=== PATIENT | male | born 1975 | race Caucasian/White ===

== ENCOUNTER 2018-05-07 09:52 | Outpatient (CLI) | payer BC, SELFPAY ==
[2018-05-07 13:12] LABS: Abs Immature Grans 0.01 k/cumm (0.0-0.09); Absolute Basophil Count 0.01 k/cumm (0.0-0.2); Absolute Eosinophil Count 0.08 k/cumm (0.0-0.7); Absolute Lymphocyte Count 1.91 k/cumm (1.2-3.4); Absolute Neutrophil Count 2.44 k/cumm (1.2-6.7); Basophils % 0.2; Eosinophils % 1.6; HGB 14.7 g/dL (13.5-17.5); Immature Grans % 0.2; Lymphocytes % 39.4; Mean Corp. HGB Concentration 35.9 g/dL (32.0-36.0); Mean Corpuscular Volume 89.1 fL (80-95); Mean Platelet Volume 9.6 fL (8.0-11.0); Monocytes % 8.2; Neutrophils % 50.4; Platelet Count 273 x1000/uL (130-400); RBC Distribution Width 13.8 % (11.8-14.1); White Blood Cell Count 4.85 k/cumm (4.4-10.8)
[2018-05-07 13:27] LABS: Anion Gap 7.4 mmol/L (3-11); BUN 19 mg/dL (7-18); CO2 30.6 mmol/L (21.0-32.0); CREATININE 0.85 mg/dL (0.70-1.30); Calcium 9.3 mg/dL (8.5-10.1); Chloride 105 mmol/L (98-107); Glucose 112 mg/dL (70-100); Potassium 4.2 mmol/L (3.5-5.1); Sodium 143 mmol/L (136-145)
[2018-05-07 13:39] LABS: ALT 33 U/L (12-78); AST 21 U/L (15-37); Albumin 3.6 g/dL (3.4-5.0); Alkaline Phosphatase 69 U/L (46-116); Bilirubin, Total 1.2 mg/dL (0.2-1.0); Total Protein 7.1 g/dL (6.4-8.2)
[2018-05-07 13:50] LABS: Bilirubin, Direct 0.24 mg/dL (0.00-0.20)
[2018-05-07 13:54] LABS: C-Reactive Protein < 0.05 mg/dL (0.0-0.3)
[2018-05-07 13:55] LABS: Bilirubin Negative (Negative); Blood Trace-intact (Negative); Clarity Clear; Glucose Negative (Negative); Ketones Negative (Negative); Leukocyte Esterase Negative (Negative); Nitrite Negative (Negative); Urobilinogen 0.2 EU/dL (Up TO 0.2)
[2018-05-07 14:20] LABS: Bacteria Few HPF (Negative); Crystals Negative HPF (Negative); Epithelial Cells Negative HPF (Negative); WBC 0-2 HPF (0-5)
[2018-05-07 14:21] LABS: C & S Indicated? No; Casts Negative LPF (Negative); Mucus Trace (Negative)
== END 2018-05-07 10:12 ==
PROVIDERS: Internal Medicine Gastroenterology; PCP Emergency Medicine; Visit Provider Emergency Medicine
DX: R10.9 Unspecified abdominal pain (principal); R31.9 Hematuria, unspecified; N20.0 Calculus of kidney; I10 Essential (primary) hypertension; K50.018 Crohn's disease of small intestine with other complication
CPT/HCPCS: 36415; 80048; 80076; 81003; 81015; 85025; 86140

== ENCOUNTER 2019-01-25 00:20 | Outpatient (CLI) | payer BC, SELFPAY ==
--- NOTE | 2019-01-25 08:30 | ETT_ITS ---
APPROVED REPORT Exam: Exercise Treadmill Patient Location: Out-Patient Room/Bed: Stress Nurse: Pam Ybarra RN BMI: 31.19 Baseline Rhythm: NSR Indications: Chest Pain to left chest, intermittant over the last several weeks. Medical History Medical History: No history of CAD Allergies: No known drug allergies Exercise History: Physically active Lung Sounds: Clear to auscultation Heart Sounds: Regular Stress Test Details Test: Exercise stress testing was performed using a Maxi protocol. Rest Stress HR Resting HR: 85 bpm Max Heart Rate (APMHR): 177 bpm Resting HR Supine: 85 bpm Target HR (85% APMHR): 150 bpm Resting HR Standin bpm Max HR Achieved: 171 bpm % of APMHR: 96 Recovery HR: 105 bpm HR response to stress: Normal HR response to stress BP Resting BP: 150/96 mmHg Resting BP Supine: 150/96 mmHg Resting BP Standin/96 mmHg Max BP: 218/64 mmHg Recovery BP: 150/92 mmHg BP response to stress: Abnormal hypertensive response to stress. ECG Resting ECG: Sinus Rhythm ST Change: none Stress ECG: Sinus Tachycardia ST Change: none Arrhythmia: None Recovery ECG: Clear, sinus tachycardia Recovery ST Change: none Recovery Arrhythmia: None Clinical Time of Stop for Maxi: 12:53 Reason for Termination: Fatigue, Target HR Achieved Exercise duration: 12 min53 sec Highest Stage Achieved: Stage 5: 5.0 mph at 18% grade. Exercise capacity: 14.06 METs Functional Capacity: Above average capacity Stress ECG Conclusion 1. The patient exercised for a total of 12 minutes and 53 seconds (14 METS). This represents a maxim al stress test 2. The patient had a hypertensive response to exercise. 3. There was no evidence of ischemia on exercise ECG. 4. The West Score (12) estimates an annual cardiovascular mortality of 0% and a five year survival of 96%. Using the West Score there is a low probability of any angiographic coronary disease. 5. Conclusion: No evidence of ischemia but hypertensive response to exercise. Would recommend more a ggressive blood pressure management. Protocol Used: Mxai Protocol Stress Test Summary STAGE Time (mins) Speed (mph) Grade (%) HR BP SYMPTOMS METS Supine 85 150/96 Standing 87 152/96 1 3 1.7 10 119 156/98 4.6 2 6 2.5 12 128 158/96 7 3 9 3.4 14 138 172/100 10.2 4 12 4.2 16 160 184/100 12.9 5 15 5.0 18 17.2 1 min recovery 130 218/64 3 min recovery 111 210/78 6 min recovery 105 150/92
== END 2019-01-25 00:40 ==
PROVIDERS: PCP Emergency Medicine; Visit Provider Emergency Medicine
DX: R07.9 Chest pain, unspecified (principal); I10 Essential (primary) hypertension
CPT/HCPCS: 93017

== ENCOUNTER 2019-04-16 09:23 | Outpatient (CLI) | payer BC, SELFPAY ==
[2019-04-16 10:28] LABS: Abs Immature Grans 0.01 k/cumm (0.0-0.09); Absolute Basophil Count 0.02 k/cumm (0.0-0.2); Absolute Eosinophil Count 0.11 k/cumm (0.0-0.7); Absolute Monocyte Count 0.41 k/cumm (0.11-0.7); Absolute Neutrophil Count 1.97 k/cumm (1.2-6.7); Basophils % 0.4; Eosinophils % 2.4; HCT 44.5 % (40.0-50.0); HGB 15.9 g/dL (13.5-17.5); Immature Grans % 0.2 %; Lymphocytes % 45.5; Mean Corp. HGB Concentration 35.7 g/dL (32.0-36.0); Mean Corpuscular Hemoglobin 30.8 pg (27.0-33.0); Mean Corpuscular Volume 86.1 fL (80-95); Mean Platelet Volume 9.6 fL (8.0-11.0); Monocytes % 8.9; Neutrophils % 42.6; Platelet Count 290 x1000/uL (130-400); RBC 5.17 m/cumm (4.50-6.00); RBC Distribution Width 13.6 % (11.8-14.1); White Blood Cell Count 4.62 k/cumm (4.4-10.8)
[2019-04-16 10:53] LABS: ALT 101 U/L (16-63); AST 44 U/L (15-37); Alkaline Phosphatase 61 U/L (46-116); Bilirubin, Direct 0.23 mg/dL (0.00-0.20); Total Protein 7.1 g/dL (6.4-8.2)
[2019-04-16 11:09] LABS: C-Reactive Protein < 0.05 mg/dL (0.0-0.3)
[2019-04-18 10:42] LABS: Hepatitis C Ab w Rflx HCV PCR Negative (Negative)
[2019-04-19 12:28] LABS: Smooth Muscle Ab Screen Negative (Negative)
== END 2019-04-16 09:43 ==
PROVIDERS: PCP Emergency Medicine; Visit Provider Internal Medicine Gastroenterology
DX: K50.913 Crohn's disease, unspecified, with fistula (principal)
CPT/HCPCS: 36415; 80076; 86803; 85025; 86140; 86255

== ENCOUNTER 2020-05-08 02:34 | Outpatient (CLI) | payer BC, SELFPAY ==
[2020-05-08 14:51] LABS: Abs Immature Grans 0.01 10^3/uL (0.0-0.06); Absolute Basophil Count 0.03 10^3/uL (0.0-0.2); Absolute Eosinophil Count 0.13 10^3/uL (0.0-0.7); Absolute Lymphocyte Count 2.73 10^3/uL (1.2-3.4); Absolute Monocyte Count 0.51 10^3/uL (0.1-0.8); Absolute Neutrophil Count 3.18 10^3/uL (1.2-6.7); Basophils % 0.5; HCT 43.3 % (40.0-50.0); HGB 14.9 g/dL (13.5-17.5); Immature Grans % 0.2; Lymphocytes % 41.4; MCH 29.2 pg (27.0-33.0); MCHC 34.4 % (32.0-36.0); MCV 84.7 fL (80-95); MPV 9.1 fL (8.0-11.0); Monocytes % 7.7; Neutrophils % 48.2; Nucleated RBC 0 %; Platelet Count 261 10^3/uL (130-400); RBC 5.11 10^6/uL (4.36-5.78); RDW 11.9 % (11.8-14.1); WBC 6.59 10^3/uL (4.4-10.8)
[2020-05-08 15:35] LABS: ALT 55 U/L (16-63); AST 23 U/L (15-37); Albumin 3.8 g/dL (3.4-5.0); Alkaline Phosphatase 72 U/L (46-116); Bilirubin, Direct 0.15 mg/dL (0.00-0.20); Bilirubin, Total 0.8 mg/dL (0.2-1.0); C-Reactive Protein 0.06 mg/dL (0.0-0.3); Total Protein 7.5 g/dL (6.4-8.2)
== END 2020-05-08 02:35 | disposition home or self-care (01) ==
LOC: LBO 02:34
PROVIDERS: PCP Emergency Medicine; Visit Provider Internal Medicine Gastroenterology
DX: K50.018 Crohn's disease of small intestine with other complication (principal); R94.5 Abnormal results of liver function studies
CPT/HCPCS: 36415; 80076; 85025; 86140

== ENCOUNTER 2020-09-20 02:51 | Outpatient (CLI) | payer BC, SELFPAY ==
[2020-09-20 15:23] LABS: Abs Immature Grans 0.02 10^3/uL (0.0-0.06); Absolute Basophil Count 0.02 10^3/uL (0.0-0.2); Absolute Eosinophil Count 0.17 10^3/uL (0.0-0.7); Absolute Lymphocyte Count 2.71 10^3/uL (1.2-3.4); Absolute Monocyte Count 0.45 10^3/uL (0.1-0.8); Absolute Neutrophil Count 3.29 10^3/uL (1.2-6.7); Basophils % 0.3; Eosinophils % 2.6; HCT 42.8 % (40.0-50.0); Immature Grans % 0.3; Lymphocytes % 40.7; MCH 29.3 pg (27.0-33.0); MCV 83.6 fL (80-95); MPV 9.7 fL (8.0-11.0); Monocytes % 6.8; Neutrophils % 49.3; Nucleated RBC 0 %; Platelet Count 251 10^3/uL (130-400); RBC 5.12 10^6/uL (4.36-5.78); RDW 11.8 % (11.8-14.1); RDW-SD 35.8 fL; WBC 6.66 10^3/uL (4.4-10.8)
[2020-09-20 16:05] LABS: ALT 56 U/L (16-63); AST 24 U/L (15-37); Albumin 3.7 g/dL (3.4-5.0); Alkaline Phosphatase 56 U/L (46-116); Bilirubin, Direct 0.2 mg/dL (0.0-0.2); Bilirubin, Total 1.1 mg/dL (0.2-1.0); Total Protein 6.9 g/dL (6.4-8.2)
[2020-09-20 16:14] LABS: C-Reactive Protein < 0.05 mg/dL (0.0-0.3)
== END 2020-09-20 02:52 | disposition home or self-care (01) ==
LOC: LBO 02:51
PROVIDERS: PCP Emergency Medicine; Visit Provider Internal Medicine Gastroenterology
DX: K50.018 Crohn's disease of small intestine with other complication (principal); R94.5 Abnormal results of liver function studies
CPT/HCPCS: 36415; 80076; 85025; 86140

== ENCOUNTER 2020-11-08 16:11 | Outpatient (REF) | payer BC, SELFPAY ==
[2020-11-08 19:58] LABS: Calculated LDL 107 mg/dL (<100); Cholesterol 195 mg/dL (<200); HDL Cholesterol 47 mg/dL (40-60); Triglyceride 205 mg/dL (<150)
== END 2020-11-08 16:12 | disposition home or self-care (01) ==
LOC: LBN 16:11
PROVIDERS: PCP Emergency Medicine; Visit Provider Emergency Medicine
DX: I10 Essential (primary) hypertension (principal)
CPT/HCPCS: 80061

== ENCOUNTER 2021-02-05 10:57 | Outpatient (REF) | payer BC, SELFPAY ==
--- NOTE | 2021-02-05 10:45 | SKI_PTH ---
PATIENT: Igor Woodruff LOC: [facility] U#:[id number] AGE/SX: 45/M ROOM: RE02/05/[address]: Irwin Gonsalez DO : 1975 BED: DIS: 02/05/2021 SPEC #: [id number] RECD: 02/05/21 18:00 STATUS: FAREED REQ #: [id number] SUSIE: 02/05/21 10:[address]: David Deleon DEPT: Surgical Specimen RECD BY: Tonya Caldera ENTERED: 02/05/21 18:01 SP TYPE: SKI OTHR DR: Irwin Gonsalez DO Tissues: 1 - SKIN BIOPSY(SHAVE/PUNCH) Procedures: SKIN LEVEL 4 Comments: [id number]
== END 2021-02-05 10:58 | disposition home or self-care (01) ==
LOC: LBN 10:57
PROVIDERS: PCP Emergency Medicine; Referring Provider Family Medicine; Visit Provider Emergency Medicine
DX: D23.61 Other benign neoplasm of skin of right upper limb, including shoulder (principal)
CPT/HCPCS: 88305

== ENCOUNTER 2021-05-03 03:51 | Outpatient (CLI) | payer BC, SELFPAY ==
[2021-05-03 14:49] LABS: Abs Immature Grans 0.02 10^3/uL (0.0-0.06); Absolute Basophil Count 0.02 10^3/uL (0.0-0.2); Absolute Eosinophil Count 0.09 10^3/uL (0.0-0.7); Absolute Lymphocyte Count 2.06 10^3/uL (1.2-3.4); Absolute Monocyte Count 0.77 10^3/uL (0.1-0.8); Absolute Neutrophil Count 4.44 10^3/uL (1.2-6.7); Basophils % 0.3; Eosinophils % 1.2; HCT 42.9 % (40.0-50.0); HGB 14.6 g/dL (13.5-17.5); Immature Grans % 0.3; Lymphocytes % 27.8; MCH 29.1 pg (27.0-33.0); MCV 85.5 fL (80-95); MPV 9.2 fL (8.0-11.0); Monocytes % 10.4; Nucleated RBC 0 %; Platelet Count 241 10^3/uL (130-400); RBC 5.02 10^6/uL (4.36-5.78); RDW 12.4 % (11.8-14.1); RDW-SD 38.5 fL
[2021-05-03 16:51] LABS: ALT 66 U/L (16-63); AST 28 U/L (15-37); Albumin 3.9 g/dL (3.4-5.0); Alkaline Phosphatase 76 U/L (46-116); Bilirubin, Direct 0.2 mg/dL (0.0-0.2); Bilirubin, Total 0.8 mg/dL (0.2-1.0); C-Reactive Protein 0.65 mg/dL (0.0-0.3); Total Protein 7.5 g/dL (6.4-8.2)
[2021-05-06 19:29] LABS: Adalimumab QN with Reflex Ab 16.1 mcg/mL
== END 2021-05-03 03:52 | disposition home or self-care (01) ==
PROVIDERS: PCP Family Medicine; Visit Provider Internal Medicine Gastroenterology
DX: K50.018 Crohn's disease of small intestine with other complication (principal)
CPT/HCPCS: 36415; 80076; 83520; 85025; 86140

== ENCOUNTER 2021-09-22 13:20 | Emergency (ER) | payer BC, SELFPAY ==
--- NOTE | 2021-09-22 13:15 | DI.RAD_ITS ---
Exam(s) XR ELBOW RT COMPLETE EXAM: XR ELBOW RT COMPLETE CLINICAL HISTORY: Swelling, R/O Fx. TECHNIQUE: 2D digital imaging was performed of the left elbow. Four images were obtained. AP, late ral and oblique views were obtained. COMPARISON: No exams were available for comparison FINDINGS: BONES: No acute fracture is present. No bony destructive lesion is seen. JOINTS: The elbow is normally aligned. No joint effusion is seen. SOFT TISSUE: There is soft tissue swelling posterior to the olecranon. IMPRESSION: 1. No acute fracture or dislocation. 2. Marked soft tissue swelling posterior to the olecranon. DATA REPOSITORY: RADIATION DOSE DELIVERED:
[2021-09-22 13:23] VITALS: BP 143/110; PULSE 82; RESP 14; O2SAT 97
--- NOTE | 2021-09-22 14:02 | ED.GENADUL_ITS ---
Discharge Plan Disposition Patient Disposition: HOME Condition: Stable Discharge Details Clinical Impression: Olecranon bursitis of right elbow Primary Care Provider: Richard Tidwell ED Provider: Ya Helton Home Meds and New Rx's Prescriptions: Continued buspirone 5 mg tablet 5 mg PO BID PRN (Reason: anxiety) Qty: 30 0RF losartan 100 mg tablet 100 mg PO DAILY Qty: 90 3RF amlodipine 5 mg tablet 5 mg PO DAILY Qty: 90 3RF multivitamin [Daily Multi-Vitamin] 1 EACH tablet 1 tab PO DAILY acetaminophen [Tylenol Extra Strength] 500 MG tablet 2 tab PO Q4H PRN Humira Pen Kgpyre-OP-PK Start 40 mg/0.8 mL pen injector kit 40 mg subcut QWEEK Label Comments: 12/17/16 rx by [facility] Dr. Ramonita Armstrong. [facility] alfuzosin [Uroxatral] 10 mg tablet extended release 24 hr 10 mg PO DAILY Qty: 90 3RF sertraline 25 mg tablet 25 mg PO DAILY Qty: 90 0RF esomeprazole magnesium [Nexium] 40 mg capsule,delayed release(DR/EC) 40 mg PO DAILY Qty: 90 3RF Discharge Instructions Instructions: Elbow Bursitis (ED), R.I.C.E. Treatment (ED) Additional Instructions: Use juan wrap for next 3-5 days. Apply ice on and off for 5-7 days. Please take Tylenol or Ibuprofen with food every 4-6 hours as needed for pain and swelling. Please return to the ER or be seen sooner by Ortho for any redness, inability to move your arm, fever chills body aches or no improvement. Referrals: Dwain Justin MD [ [facility] STAFF PHYSICIAN] - 1 week Discharge Data Discharge Date/Time-TO BE ENTERED AT DEPARTURE: 09/22/21 14:14 Medical Decision Making 46-year-old male presents to the ER with right elbow swelling. Patient reports that he hit his elbow this morning began with acute swelling. He reports that this is happened to him a couple times in the past. No other associated symptoms no fever chills no body aches no erythema or significant warmth noted surrounding the joint. He does have full range of motion noted to the elbow without significant tenderness. Distal CMS is intact. He did not take any medications prior to arrival. Past medical history includes hypertension kidney stone, Crohn's disease, GERD, obstructive sleep apnea, hemorrhoids. Exam is consistent with olecranon bursitis placed Juan wrap and ice pack given ibuprofen here. No obvious evidence for septic joint. Differential diagnosis includes but not limited to gouty arthritis, less likely septic joint, olecranon bursitis Discussed wound care with patient follow-up with orthopedics who verbalized understanding. This text was generated using Moondoation system, please disregard any oddities of phrase or misspellings. Medical Records Medical records reviewed: Yes I reviewed the patient's medical records. Imaging Data Radiologic Study: Imaging: X-Ray Radiologist's impression: Imaging protocol: Radiologic exam of the Right elbow. Views: 3 or more views. COMPARISON: No relevant prior studies available. FINDINGS: Bones/joints: No acute fracture or dislocation. Joint spaces maintained. No joint effusion. Soft tissues: Marked swelling posterior to the olecranon. IMPRESSION: 1. No acute fracture. 2. Marked swelling posterior to the olecranon which may be posttraumatic or reflect bursitis. Thank you for allowing us to participate in the care of your patient. Dictated and Authenticated by: Juan Cao MD [facility] General Mode of arrival: ambulatory . Date/Time Provider Initiated Documentation: 09/22/21 13:20 . Limitations to Documentation: no limitations . Information obtained by: patient and RN notes reviewed . HPI Narrative: 46-year-old male presents to the ER with right elbow swelling. Patient reports that he hit his elbow this morning began with acute swelling. He reports that this is happened to him a couple times in the past. No other associated symptoms no fever chills no body aches no erythema or significant warmth noted surrounding the joint. He does have full range of motion noted to the elbow without significant tenderness. Distal CMS is intact. He did not take any medications prior to arrival. Past medical history includes hypertension kidney stone, Crohn's disease, GERD, obstructive sleep apnea, hemorrhoids. Related Data Home Medications Medication Instructions Recorded Confirmed acetaminophen 500 mg tablet 2 tab PO Q4H PRN 07/05/12 05/31/21 (Tylenol Extra Strength) multivitamin (Daily Multi-Vitamin 1 tab PO DAILY 07/05/12 09/22/21 tablet) adalimumab 40 mg/0.8 mL 40 mg subcut QWEEK 11/01/19 09/22/21 subcutaneous pen kit (Humira Pen Crohn's-[facility] Colitis-Hid Sup Starter) losartan 100 mg tablet 100 mg PO DAILY #90 tabs 02/05/21 09/22/21 buspirone 5 mg tablet 5 mg PO BID PRN anxiety #30 tabs 04/19/21 05/31/21 amlodipine 5 mg tablet 5 mg PO DAILY #90 tabs 05/10/21 09/22/21 alfuzosin 10 mg tablet,extended 10 mg PO DAILY #90 tab-caps 06/14/21 09/22/21 release 24 hr (Uroxatral) sertraline 25 mg tablet 25 mg PO DAILY #90 tabs 08/14/21 09/22/21 esomeprazole magnesium 40 mg 40 mg PO DAILY #90 caps 09/12/21 09/22/21 capsule,delayed release (Nexium) Previous Rx's Medication Instructions Recorded losartan 100 mg tablet 100 mg PO DAILY #90 tabs 02/05/21 buspirone 5 mg tablet 5 mg PO BID PRN anxiety #30 tabs 04/19/21 amlodipine 5 mg tablet 5 mg PO DAILY #90 tabs 05/10/21 alfuzosin 10 mg tablet,extended 10 mg PO DAILY #90 tab-caps 06/14/21 release 24 hr (Uroxatral) sertraline 25 mg tablet 25 mg PO DAILY #90 tabs 08/14/21 esomeprazole magnesium 40 mg 40 mg PO DAILY #90 caps 09/12/21 capsule,delayed release (Nexium) Allergies Allergy/AdvReac Type Severity Reaction Status Date / Time No Known Allergies Allergy Verified 09/22/21 13:25 General Stated Complaint: Orthopedic LEÓN: 4 Review of Systems All systems reviewed & are unremarkable except as noted in HPI and below Constitutional Constitutional: Denies body ache(s), Denies chills and Denies fever(s) Cardiovascular Cardiovascular: Denies palpitations Respiratory Respiratory: Reports hemoptysis and Reports excessive phlegm production Musculoskeletal Musculoskeletal: Reports joint swelling (Right elbow) Integumentary/Breasts Skin/Breast: Denies erythema Endocrine Endocrine: Denies palpitations PFSH All Active Problems (Updated 09/22/21 @ 14:09 by Ya Helton NP) Olecranon bursitis of right elbow (Acute) Anxiety (Chronic) Hypertension (Chronic) Kidney stone on right side (Chronic) 2017. stenting [facility] Crohn's disease (Chronic) Gastroesophageal reflux disease with esophagitis (Chronic) per EGD; esophageal stricture Hemorrhoids (Chronic) EXTERNAL Obstructive sleep apnea syndrome (Chronic) Surgical History (Updated 05/31/21 @ 13:01 by David Deleon MD) Appendectomy Arthroplasty of knee (~2000) LEFT Colonoscopy - MAC 05/01/11 [facility] 02/25/13 [facility] Social History (Updated 11/09/20 @ 15:06 by Kaye Braxton) Smoking/Tobacco Use Status: Never Second Hand Exposure: Yes Smoking risk assessment performed?: Yes Alcohol Intake: current Alcohol Intake frequency: a few times a month Alcohol type: beer Drug use: Never Substance use type: does not use Household members: spouse and children Housing: house Communication Needs: None Do you need help understanding health information?: Never Pets and animals: Yes Pets and animals: dog(s) Sexually active: Yes Do you think of yourself as: straight/heterosexual Current gender identity: male What is your relationship status?: How often do you talk on the phone with friends or family?: once per week How often do you get together with friends or relatives?: once per week How often do you attend lutheran or restorationist services?: decline to answer Do you belong to any clubs or organized social groups?: no Panel score (0-1 are the most socially isolated patients): 1 Sue/Hindu: Bahai Special sue needs: No Seatbelt use: always Helmet use: Yes Helmet use: sometimes Drive 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 Do you feel safe at home: Yes Do you feel safe in your relationship?: Yes Exam Extrem Right upper extremity: elbow/forearm Details: swelling Location: of the olecranon (Swelling); not of the antecubital fossa and not of the lateral epicondyle and normal ROM; no ecchymosis Course Vital Signs Vital signs: Vital Signs Pulse 82 09/22/21 13:23 Respiratory Rate 14 09/22/21 13:23 Blood Pressure 143/110 H 09/22/21 13:23 Pulse Oximetry 97 09/22/21 13:23 Pulse 82 09/22/21 13:23 Respiratory Rate 14 09/22/21 13:23 Respiratory Effort Non-Labored 09/22/21 13:27 Blood Pressure 143/110 H 09/22/21 13:23 Blood Pressure Position Supine 09/22/21 13:23 Pulse Oximetry 97 09/22/21 13:23 Oxygen Delivery Method Room Air 09/22/21 13:23 Oxygen Flow Rate 0 09/22/21 13:23 Pain Level 4 09/22/21 13:29 PAWSS Have you Been Recently Intoxicated or Drunk Within the Last 30 days?: No Have you Ever Experienced Previous Episodes of Alcohol Withdrawal?: No Have you ever Experienced Withdrawal Seizures?: No Have you ever Experienced Delirium Tremens(DT)s?: No Have you ever undergone Alcohol Rehabilitation Treatment (i.e, inpt ot outpatient treatment programs)?: No Have you ever Experienced Blackouts?: No Have you ever Combined Alcohol with other Downers within the last 90 days?: No Have you ever Combined Alcohol with any other Substance of Abuse during the last 90 days?: No Positive Blood Alcohol level on Presentation? [PCS.BAL]: No Evidence of Increased Autonomic Activity (i.e. HR>120, tremor, sweating, agitation, nausea)?: No Result: 0
--- NOTE | 2021-09-22 14:04 | DI.VRAD_ITS ---
PROCEDURE INFORMATION: Exam: XR Right Elbow Exam date and time: 09/22/2021 1:36 PM Age: 46 years old Clinical indication: Other: Swelling, R/O FX TECHNIQUE: Imaging protocol: Radiologic exam of the Right elbow. Views: 3 or more views. COMPARISON: No relevant prior studies available. FINDINGS: Bones/joints: No acute fracture or dislocation. Joint spaces maintained. No joint effusion. Soft tissues: Marked swelling posterior to the olecranon. IMPRESSION: 1. No acute fracture. 2. Marked swelling posterior to the olecranon which may be posttraumatic or reflect bursitis. Dictated and Authenticated by: Juan Cao MD. Ordering:REKHA Pandya MD
== END 2021-09-22 14:14 | disposition home or self-care (01) ==
PROVIDERS: Emergency Provider Registered Nurse Emergency; PCP Nurse Practitioner Family
DX: M70.21 Olecranon bursitis, right elbow (principal); I10 Essential (primary) hypertension; Z77.22 Contact with and (suspected) exposure to environmental tobacco smoke (acute) (chronic)
CPT/HCPCS: 99283; 73080

== ENCOUNTER 2021-11-04 15:00 | Outpatient (CLI) | payer BC, SELFPAY ==
--- NOTE | 2021-11-04 14:57 | DI.RAD_ITS ---
Exam(s) XR KNEE LT 3V AP,LAT,CHRISTINE EXAM: XR KNEE LT 3V AP,LAT,CHRISTINE CLINICAL HISTORY: knee pain. TECHNIQUE: 2D digital imaging was performed of the left knee. Three images were obtained. DeleteAP , lateral and PA tunnel views were obtained. COMPARISON: No previous for comparison. FINDINGS: BONES: No acute fracture is present. No bony destructive lesion is seen. There is a well corticated osseous density adjacent to the anterior tibial tuberosity which appears old. JOINTS: The knee is normally aligned. No joint effusion is seen. SOFT TISSUE: Normal. IMPRESSION: No acute abnormality. DATA REPOSITORY: RADIATION DOSE DELIVERED:
== END 2021-11-04 15:01 | disposition home or self-care (01) ==
LOC: DIORS 15:01
PROVIDERS: PCP Nurse Practitioner Family; Referring Provider Nurse Practitioner Family; Visit Provider Physician Assistant Surgical
DX: M25.562 Pain in left knee (principal)
CPT/HCPCS: 73562

== ENCOUNTER 2022-05-16 01:26 | Outpatient (CLI) | payer BC, SELFPAY ==
[2022-05-16 12:22] LABS: Abs Immature Grans 0.03 10^3/uL (0.0-0.06); Absolute Basophil Count 0.03 10^3/uL (0.0-0.2); Absolute Eosinophil Count 0.12 10^3/uL (0.0-0.7); Absolute Monocyte Count 0.64 10^3/uL (0.1-0.8); Absolute Neutrophil Count 1.79 10^3/uL (1.2-6.7); Basophils % 0.7; Eosinophils % 2.8; HCT 40.9 % (40.0-50.0); HGB 13.8 g/dL (13.5-17.5); Immature Grans % 0.7; Lymphocytes % 39.4; MCH 28.7 pg (27.0-33.0); MCHC 33.7 % (32.0-36.0); MCV 85 fL (80-95); Monocytes % 14.8; Neutrophils % 41.6; Platelet Count 233 10^3/uL (130-400); RBC 4.81 10^6/uL (4.36-5.78); RDW 12.4 % (11.8-14.1); RDW-SD 38.4 fL; WBC 4.31 10^3/uL (4.4-10.8)
[2022-05-16 12:26] LABS: CREATININE 0.9 mg/dL (0.70-1.30); Estimated GFR 106.01 (mL/min/1.73m2); Potassium 3.7 mmol/L (3.5-5.1)
[2022-05-16 12:46] LABS: ALT 100 U/L (16-63); AST 39 U/L (15-37); Albumin 3.4 g/dL (3.4-5.0); Alkaline Phosphatase 71 U/L (46-116); Bilirubin, Direct 0.2 mg/dL (0.0-0.2); Bilirubin, Total 0.6 mg/dL (0.2-1.0); C-Reactive Protein 0.27 mg/dL (0.0-0.3); Total Protein 7.1 g/dL (6.4-8.2)
[2022-05-16 12:49] LABS: Hemoglobin A1C 5.5 % (<5.7)
== END 2022-05-16 01:27 | disposition home or self-care (01) ==
LOC: LOS 01:26
PROVIDERS: Internal Medicine Gastroenterology; PCP Nurse Practitioner Family; Visit Provider Nurse Practitioner Family
DX: I10 Essential (primary) hypertension (principal); Z13.1 Encounter for screening for diabetes mellitus; F41.8 Other specified anxiety disorders; K21.00 Gastro-esophageal reflux disease with esophagitis, without bleeding; K50.90 Crohn's disease, unspecified, without complications
CPT/HCPCS: 36415; 80076; 82565; 83036; 84132; 85025; 86140

== ENCOUNTER 2022-12-22 05:01 | Outpatient (CLI) | payer BC, SELFPAY ==
[2022-12-22 07:25] LABS: Abs Immature Grans 0.01 10^3/uL (0.0-0.06); Absolute Basophil Count 0.03 10^3/uL (0.0-0.2); Absolute Eosinophil Count 0.16 10^3/uL (0.0-0.7); Absolute Lymphocyte Count 2.23 10^3/uL (1.2-3.4); Absolute Monocyte Count 0.47 10^3/uL (0.1-0.8); Absolute Neutrophil Count 2.74 10^3/uL (1.2-6.7); Basophils % 0.5; Eosinophils % 2.8; HCT 42.9 % (40.0-50.0); HGB 14.8 g/dL (13.5-17.5); Immature Grans % 0.2; Lymphocytes % 39.5; MCH 28.7 pg (27.0-33.0); MCHC 34.5 % (32.0-36.0); MCV 83 fL (80-95); MPV 9.5 fL (8.0-11.0); Monocytes % 8.3; Neutrophils % 48.7; Platelet Count 275 10^3/uL (130-400); RBC 5.16 10^6/uL (4.36-5.78); RDW 11.9 % (11.8-14.1); WBC 5.64 10^3/uL (4.4-10.8)
[2022-12-22 08:06] LABS: ALT 28 U/L (16-63); AST 15 U/L (15-37); Albumin 3.6 g/dL (3.4-5.0); Alkaline Phosphatase 68 U/L (46-116); Anion Gap 6.3 mmol/L (3-11); BUN 25 mg/dL (7-18); Bilirubin, Direct 0.2 mg/dL (0.0-0.2); Bilirubin, Total 0.7 mg/dL (0.2-1.0); CO2 27.7 mmol/L (21.0-32.0); CREATININE 0.8 mg/dL (0.70-1.30); Calcium 9.4 mg/dL (8.5-10.1); Chloride 106 mmol/L (98-107); Estimated GFR 109.85 (mL/min/1.73m2); Glucose 124 mg/dL (74-106); Potassium 3.8 mmol/L (3.5-5.1); Sodium 140 mmol/L (136-145); Total Protein 7.5 g/dL (6.4-8.2)
[2022-12-22 15:53] LABS: ESR (LRH) 12 mm/hr
== END 2022-12-22 05:02 | disposition home or self-care (01) ==
LOC: LBO 05:01
PROVIDERS: PCP Nurse Practitioner Family; Visit Provider Internal Medicine Gastroenterology
DX: K50.818 Crohn's disease of both small and large intestine with other complication (principal)
CPT/HCPCS: 36415; 80053; 80076; 85652; 85025; 86140

== ENCOUNTER 2023-06-19 02:30 | Outpatient (CLI) | payer BC, SELFPAY ==
[2023-06-19 11:02] LABS: Abs Immature Grans 0.02 10^3/uL (0.0-0.06); Absolute Basophil Count 0.03 10^3/uL (0.0-0.2); Absolute Eosinophil Count 0.08 10^3/uL (0.0-0.7); Absolute Lymphocyte Count 2.36 10^3/uL (1.2-3.4); Absolute Monocyte Count 0.42 10^3/uL (0.1-0.8); Absolute Neutrophil Count 3.38 10^3/uL (1.2-6.7); Basophils % 0.5; Eosinophils % 1.3; HCT 42.6 % (40.0-50.0); HGB 14.8 g/dL (13.5-17.5); Immature Grans % 0.3; Lymphocytes % 37.5; MCH 29.1 pg (27.0-33.0); MCHC 34.7 % (32.0-36.0); MCV 84 fL (80-95); MPV 9.2 fL (8.0-11.0); Monocytes % 6.7; Neutrophils % 53.7; Platelet Count 265 10^3/uL (130-400); RBC 5.08 10^6/uL (4.36-5.78); RDW 11.9 % (11.8-14.1); RDW-SD 35.9 fL; WBC 6.29 10^3/uL (4.4-10.8)
[2023-06-19 11:27] LABS: ALT 36 U/L (16-63); AST 16 U/L (15-37); Albumin 3.6 g/dL (3.4-5.0); Alkaline Phosphatase 75 U/L (46-116); Anion Gap 9.5 mmol/L (3-11); BUN 25 mg/dL (7-18); Bilirubin, Total 0.8 mg/dL (0.2-1.0); CO2 27.5 mmol/L (21.0-32.0); Calcium 8.8 mg/dL (8.5-10.1); Chloride 106 mmol/L (98-107); Estimated GFR 92.84 (mL/min/1.73m2); Glucose 128 mg/dL (74-106); Potassium 3.8 mmol/L (3.5-5.1); Sodium 143 mmol/L (136-145); Total Protein 7.4 g/dL (6.4-8.2)
[2023-06-19 11:28] LABS: C-Reactive Protein < 0.50 mg/dL (<or=0.5)
[2023-06-21 14:35] LABS: TB Interpretation Negative (Negative); TB2 Ag minus Nil 0.01 IU/mL
[2023-06-24 12:51] LABS: Adalimumab QN with Reflex Ab 12.2 mcg/mL
== END 2023-06-19 02:31 | disposition home or self-care (01) ==
PROVIDERS: PCP Nurse Practitioner Family; Visit Provider Internal Medicine Gastroenterology
DX: K50.018 Crohn's disease of small intestine with other complication (principal)
CPT/HCPCS: 36415; 80053; 83520; 85025; 86140; 86480

== ENCOUNTER 2024-01-12 03:14 | Outpatient (CLI) | payer BC, SELFPAY ==
[2024-01-12 09:20] LABS: Absolute Basophil Count 0.03 10^3/uL (0.0-0.2); Absolute Eosinophil Count 0.08 10^3/uL (0.0-0.7); Absolute Lymphocyte Count 1.42 10^3/uL (1.2-3.4); Absolute Monocyte Count 0.55 10^3/uL (0.1-0.8); Absolute Neutrophil Count 3.71 10^3/uL (1.2-6.7); Basophils % 0.5 %; Eosinophils % 1.4 %; HCT 43.4 % (40.0-50.0); Lymphocytes % 24.5 %; MCH 28.6 pg (27.0-33.0); MCHC 34.6 % (32.0-36.0); MCV 83 fL (80-95); MPV 9.7 fL (8.0-11.0); Monocytes % 9.5 %; Neutrophils % 64.1 %; Platelet Count 251 10^3/uL (130-400); RBC 5.25 10^6/uL (4.36-5.78); RDW 11.9 % (11.8-14.1); RDW-SD 35.9 fL; WBC 5.79 10^3/uL (4.4-10.8)
[2024-01-12 09:53] LABS: ALT 28 U/L (16-63); AST 21 U/L (15-37); Albumin 3.5 g/dL (3.4-5.0); Alkaline Phosphatase 81 U/L (46-116); Bilirubin, Direct 0.2 mg/dL (0.0-0.2); Bilirubin, Total 0.96 mg/dL (0.2-1.0); Total Protein 7.8 g/dL (6.4-8.2)
[2024-01-12 09:54] LABS: C-Reactive Protein < 0.50 mg/dL (<or=0.5)
[2024-01-12 10:06] LABS: Hemoglobin A1C 5.6 % (<5.7)
[2024-01-12 10:07] LABS: Calculated LDL 99 mg/dL (<100); Cholesterol 199 mg/dL (<200); HDL Cholesterol 50 mg/dL (40-60); Triglyceride 251 mg/dL (<150)
[2024-01-12 18:43] LABS: PSA, Screening 6.1 ng/mL (<=2.5)
== END 2024-01-12 03:15 | disposition home or self-care (01) ==
LOC: LBO 03:15
PROVIDERS: Internal Medicine Gastroenterology; PCP Nurse Practitioner Family; Visit Provider Nurse Practitioner Family
DX: Z13.220 Encounter for screening for lipoid disorders (principal); Z13.1 Encounter for screening for diabetes mellitus; Z12.5 Encounter for screening for malignant neoplasm of prostate; K50.018 Crohn's disease of small intestine with other complication
CPT/HCPCS: 36415; 80061; 80076; 84153; 83036; 85025; 86140

== ENCOUNTER 2024-03-10 01:42 | Outpatient (CLI) | payer BC, SELFPAY ==
--- OUTSIDE RECORDS SUMMARY | 2024-03-10 01:56 | XMS_ITS | Encounter Summary ---
[place] [address] Care Team Providers Care Welding Machine Tender Name Role Phone Irwin Gonsalez DO Primary Care Provider Encounter Details Date Type Department Care Team (Latest Contact Info) Description 03/03/2024 9:00 AM EST TH Visit (TeleHealth) [place] [address] Nereyda Salgado, DIESEL [employer] MECH[employer]IC [facility] [place] [address] Crohn's disease of ileum with other complication Social History Tobacco Use Types Packs/Day Years Used Date Smoking Tobacco: Never Smokeless Tobacco: Never Alcohol Use Standard Drinks/Week Comments Yes 1 (1 standard drink = 0.6 oz pur e alcohol) Sex and Gender Information Value Date Recorded Sex Assigned at Male 06/08/2023 4:49 PM EDT Gender Identity Not on file Sexual Orientation Not on file documented as of this encounter Progress Notes * Nereyda Salgado APRN - 03/03/2024 9:00 AM EST [facility] Gastroenterology Telehealth Visit Primary care provider: Irwin Gonsalez DO Other providers: Dr. Pandey and Dr. Chaney Reason for visit: Crohn's disease, discuss treatments Problem List Patient Active Problem List Diagnosis Date Noted Crohn's ileitis 07/07/2010 Abnormal liver function test 07/07/2010 GERD (gastroesophageal reflux disease) 07/07/2010 Resolved Hospital Problems No resolved problems to display. Patient Active Problem List Diagnosis Crohn's ileitis Overview Note: diagnosed at age 17 yo S/p ileocolic resection 10/29/10 - 19.5 cm of terminal ileum with active inflammation, fibrosis and an enteroenteric fistula. 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 Colonoscopy 02/28/10: Stricture and pseudopolyps likely at the level of the IC valve. Mild inflammation characterized by a single ulcer, erythema and congestion. IC valve could never be clearly identified and the stricture could not be traversed. CT scan 03/26/10: Active ileal disease with enteroenteric fistula; incidental finding of L lower lobe indeterminate pulmonary nodule; fatty replacement of liver. Treated with Imuran for the last 4 years; had been treated with Asacol prior 6MP metabolies were 6TG 213, 6MMP 1015. AZA to 250 mg qd 04/2009. Repeat metabolites 6TG 315, 6MMP 4217 Colonoscopy 02/2013 - no active disease. Colonoscopy 01/2017 - 2 superficial aphthae at the anastomosis. Otherwise, no active disease. Perianal fistulizing disease - 12/2000 Humira added to AZA in 04/2016; ADA 7.4 10/2017 - dose escalated to weekly MRE 02/2019 - normal. Stopped AZA 03/2019 [place] 05/23/21 - Rutgeert's i1 - single small linear erosion limited to the anastomosis. 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 Abnormal liver function test Overview Note: AALT 65-78 on increased dose of 6MP fatty hepatic replacement on CT HBsAb/Ag neg 2015 HCV neg 04/2019 ASMA neg 04/2019 Stopped AZA 03/2019 GERD (gastroesophageal reflux disease) Overview Note: responsive to Nexium CURRENT IBD MEDS: Humira qweekly INTERVAL HISTORY: - Last visit with Dr. Pandey and Dr. Chaney 01/2024 - Presents via TH visit as he wants to discuss further about his medication, with plan to switch him from Humira to Infliximab. Unfortunately he is 50 mins late for his appt today - Found an abscess on recent MR- pelvis 02/26. On Cipro and Flagyl given by colorectal surgery. [place] in Mar. - Overall doing well - No perianal pain since on above antibiotic but having more diarrhea. - Remains on Humira. - BM 5x/day, loose. No bleeding. + nocturnal Bm - No abdominal pain IBD QUESTIONNAIRE No questionnaires on file. IBD Qorus Provider Questionnaire 0-10 scale: 0 is least burden and 10 is highest burden to the patient. Review of systems as in the HPI, the rest of the review of systems were negative. Past Medical History, Social History and Family History is unchanged. Allergies/Adverse reactions Patient has no known allergies. No Physical Examination Performed Recent labs No visits with results within 3 Month(s) from this visit. Latest known visit with results is: Admission on 05/23/2021, Discharged on 05/23/2021 Component Date Value Ref Range Status COLONOSCOPY 05/23/2021 Final Value:[facility] Endoscopy Procedure Date: 05/23/2021 2:40 PM Patient Name: Igor Woodruff Date of : 1975 Age: 46 Order #: [id number] Instrument Name: [id number] Procedure: Colonoscopy Patient Profile: This is a 46 year old male. This patient has ileal Crohn's disease with perianal involvement, is taking adalimumab and is experiencing mild symptoms. Providers: Angelo Pandey MD, [place]mo [place], Dowel Pointer Referring MD: Irwin Gonsalez DO Medicines: Midazolam 5 mg IV, Fentanyl 200 micrograms IV Complications: No immediate complications. Procedure: Pre-Anesthesia Assessment: - Prior to the procedure, a History and Physical was performed, and patient medications and allergies were reviewed. The patient is competent. The risks and benefits of the procedure and the sedation options and risks were discussed with the patient. All questions were answered and informed consent was obtained. Patient identification and proposed procedure were verified by the physician in the pre-procedure area in the endoscopy suite. Mental Status Examination: alert and oriented. Airway Examination: normal oropharyngeal airway and neck mobility. Respiratory Examination: clear to auscultation. CV Examination: normal. ASA Grade Assessment: II - A patient with mild systemic disease. After reviewing the risks and benefits, the patient was deemed in satisfactory condition to undergo the procedure. The anesthesia plan was to use moderate sedation / analgesia (conscious sedation). Immediately prior to administration of medications, the patient was re-assessed for adequacy to receive sedativ es. The heart rate, respiratory rate, oxygen saturations, blood pressure, adequacy of pulmonary ventilation, and response to care were monitored throughout the procedure. The physical status of the patient was re-assessed after the procedure. The procedure, indications, benefits, risks and alternatives were explained to the patient. Specifically discussed were potential complications including, but not limited to, bleeding, perforation, infection, missing a cancer, and adverse medication reactions. The patient was placed in the left lateral decubitus position, and a digital rectal exam was performed. The Colonoscope was inserted in the anus and under direct visualization, advanced to 20 cm into the ileum. Careful inspection was made as the colonoscope was withdrawn. The colonoscopy was performed without difficulty. The patient tolerated the procedure well. Scope withdrawal time was 6 minutes. The quality of the bowel preparation was evaluated using the BBPS ([place] Bowel Preparation Scale) with scores of: Right Colon = NA (segment surgically absent or not seen due to reasons unrelated to bowel prep (i.e. technical difficulties or patient intolerance)), Transverse Colon = 3 (entire mucosa seen well with no residual staining, small fragments of stool or opaque liquid) and Left Colon = 3 (entire mucosa seen well with no residual staining, small fragments of stool or opaque liquid). The total BBPS score equals 6* (*this score is the summation of 2 or fewer segments). Findings: The perianal exam findings include a perianal fistula in the R posterolateral quadrant with a seton in place. There was no induration, drainage, erythema. The digital exam was normal without any stenosis noted. Apart from the previously described buar-bq-cfwa widely patent ileocolonic anastomosis in the ascending colon, the colon was normal. At the anastomosis, the re was a 5 mm single shallow linear erosion limited to the staple line. It otherwise appeared healthy. Several non-targeted biopsies were taken with a cold forceps from the R and the L colon separately to evaluate for histologic activity. The galen-terminal ileum appeared normal. It was examined for 25 cm from the ileocolonic anastomosis. Moderate Sedation: I was present during the intraservice time as documented by the sedation RN. Impression: - Crohn's ileitis in remission except for a single small linear erosion limited to the anastomosis. - Perianal fistula found on perianal exam. It appeared quiescent without any signs of active inflammation. - The examined portion of the ileum was normal. - Biopsies taken from the colon. Recommendation: - Continue Humira. - Start colestipol one tablet twice per day for diarrhea. - Await pathology results. - Follow-up in IBD Clinic. Attending Participation: I personally performed the entire procedure. L. Timothy Pandey MD 05/23/2021 4:58:15 PM Number of Addenda: 0 Note Initiated On: 05/23/2021 2:40 PM Final Diagnosis 05/23/2021 Final Value:[id number] Location: 4T; [facility]; A The signing pathologist has (i) examined the relevant preparation(s) for the specimen(s) and (ii) rendered or confirmed the diagnosis(es). . Surgical Pathology DIAGNOSIS A - Mucosal biopsies; right colon, biopsy (Multiple): Colonic mucosa with focal crypt abscess, negative for dysplasia. B - Mucosal biopsies, left colon, biopsy (Multiple): Colonic mucosa with crypt architecture alteration, negative for dysplasia. Electronically signed by: Noris Christiansen MD Verified: 05/25/2021 15:19 Pathologist Performed at: -[facility] [place] [place] Dept. of Pathology, [place], [place] SPECIMEN(S) SUBMITTED A - Mucosal biopsies; right colon, biopsy (Multiple) B - Mucosal biopsies, left colon, biopsy (Multiple) CLINICAL INFORMATION 46-year-old male, Hx of Crohn's ileitis SPECIMEN PROCESSING A - Labeled/Fixative: Mucosal biopsy; right colon, formalin. Quantity/Size: Five, ranging from 0.2-0.8 cm. Tissue Description: Soft, mazariegos-pink tissues. Sections/Processing: Submitted en toto in 1 cassette labeled A1. B - Labeled/Fixative: Mucosal biopsies, left colon, formalin. Quantity/Size: Seven, ranging from 0.3-0.7 cm. Tissue Description: Soft, mazariegos-pink tissues. Sections/Processing: Submitted en toto in 2 cassettes labeled B1-B2. mnd Recent endoscopic procedures As in detailed in history above Recent relevant imaging As in detailed in history above 02/27/24 MR- pelvis: FINDINGS: Anal fistula: A hypointense seton is visible in the intersphincteric fat on the right side associated with trace T2 hyperintense fluid without peripheral enhancement or reduced diffusion. Connected to this inferiorly there is a thin peripheral enhancing fluid collection of the right gluteal fold consistent with an abscess that measures 0.7 x 1.8 x 3.1 cm (transverse, craniocaudal, AP). The fistula was present in 2016; the gluteal abscess is new. Ischioanal fossa: Normal signal; no fluid collection. Peritoneum: No free fluid or loculated collection. Lymph nodes: No adenopathy. GI tract: No bowel wall thickening or dilatation. No adjacent inflammation. Reproductive structures: Mildly enlarged prostate. Normal seminal vesicles. Marrow signal: Normal. IMPRESSION Right intersphincteric fistula containing seton. New subcutaneous right gluteal abscess (3.1 cm) with connecting enhancing tract. Impression/Plan Mr. Woodruff is a 49 y.o. patient with Crohn's ileitis s/p ileocolic resection 2010 w/perianal involvement on Humira qweekly who had been doing quite well until last few weeks with new drainage frommultiple areas on bottom. Decision made to switch him to Infliximab from Humira . Given he has persistent perianal symptoms, decision made to a switch of anti-TNF agent since Humiramay no longer working as well. Discussed the plan is to transition to Remicade/Infliximab. Reviewed Risks and Benefits of Infliximab. It is similar to Humira. Difference is administration. Infliximab is currently ordered as an infusion. In the future, could consider SC injection if able. I reviewed specifics on what we know about side-effects of anti-TNF agents (Remicade, Humira, Cimzia). Risks presented include immediate and delayed infusion/injection site reactions; development of antibodies to the medication might reduce efficacy or promote allergic reactions, infection, including rare opportunisitc infections, tuberculosis or histoplasmosis, or most commonly, upper respiratory infections; positive syvz-vpgrau-kylhnwxd DNA antibodies, and rarely a lupus-like syndrome; the possible risk of lymphoma is approximately 6 cases among 10,000 treated Crohn's disease patients (as opposed to baseline rate about 2/10,000; very rare demyelinating neurologic disease; worsening of CHF(if pre-existing); and rare sepsis related (approximately 4 cases among 1000 treated patients, but typically in older patients with comorbidities and taking concomitant immune suppressants). Expected benefit includes response in 60-70% of patients, with approximately 30-50% of those patients maintaining remission out to one year. Longer term remission data is uncertain. Plan to start him on Infliximab 5 mg/kg regular induction ( week-0,-2-6) then maintenance every 8 week. But will check a week level - target >17 and a week 14 level - target >15. We may need to adjust dose or interval based on levels. As far as his MR-pelvis, it revealed right intersphincteric fistula containing seton. New subcutaneous right gluteal abscess (3.1 cm) with connecting enhancing tract. He was given Cipro and Flagyl by colorectal surgery which he finds helpful. No longer having perianal pain. Has a scheduled EUA with Dr. Evans in Mar 2024. However, now with increased diarrhea. I told patient that we should send stool studies. Ok to continue Humira for now given he's no longer having any perianal pain and to continue his antibiotics until his EUA. But he needs to let us know if any recurrent perianal pain or abscess and if he develops fever/chills. Then will hold Humira. Plans: Written instructions send to patient - Continue Cipro and flagyl until your EUA with colorectal surgery. - Send stool studies( [facility]). - Routine Labs today - Switch to Infliximab/Remicade 5 mg/kg for perianal disease, regular induction dose then maintenance every 8 weeks - Please check Infliximab level a week after infusion- target >17 and prior to 4th infusion (week 14 level) - target >15. - Will stop Humira once Infliximab is approved and scheduled - Lab surveillance every month x3 months then every 4 months while on Infliximab - Colonoscopy and MR-pelvis 6-8 months after starting Infliximab. Will order at next visit - Please contact us if any recurrent perianal pain or abscess and if develops fever/chills. Then will likely hold the Humira. 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 Chaney or Dr. Pandey in 3 months Please contact me if there are any further questions regarding the care of this patient. Nereyda Salgado (Connie), MSN, [employer] Gastroenterology Section [facility] documented in this encounter Plan of Treatment Upcoming Encounters Date Type Department Care Team (Latest Contact Info) Description 04/01/2024 12:35 PM EST Hospital Encounter [place] [address] Apurva Vivas MD [facility] [place] [address] 04/01/2024 12:35 PM EST - 04/01/2024 2:17 PM EST Surgery [place] [phone] Apurva Vivas MD [facility] [place] [address] ANORECTAL EXAM, REQUIRING ANESTHESIA, DIAGNOSTIC (WRVU 1.8) 04/26/2024 3:00 PM EST Office [place] [address] Auprva Vivas MD [facility] [place] [address] Scheduled Orders Name Type Priority Associated Diagnoses Orde r Schedule Stool Culture Screen ([facility] [place] [place]/[facility]) Microbiology Routine Crohn's disease of ileum with other complication Expected: 03/03/2024, Expires: 09/02/2024 C. Difficile Screen Microbiology Routine Crohn's disease of ileum with other complication Expected: 03/03/2024, Expires: 09/02/2024 Calprotectin, Stool Lab Routine Crohn's disease of ileum with other complication Expected: 03/03/2024 (Approximate), Expires: 03/03/2025 Scheduled Procedures Name Priority Associated Diagnoses Date/Ti me ANORECTAL EXAM, REQUIRING ANESTHESIA, DIAGNOSTIC (WRVU 1.8) perianal crohns disease w/fistula 04/01/2024 12:35 PM EST SURGICAL TREATMENT OF ANAL FISTULA COMPLEX OR MULTIPLE W\WO SETON PLACEMENT (WRVU 6.39) perianal crohns disease w/fistula 04/01/2024 12:35 PM EST documented as of this encounter Goals Goal Patient Goal Type Associated Problems Recent Progress Patient-Stated? Author [facility] Medication Compliance and Understanding Patient Facing Action Plan On track( 017 9:39 PM EDT) Perri Hernandez, [facility] Note: Patient's specific desired goal: Igor would like to stay adherent on Humira and maintain the improvement he has seen. We will continue to provide refill reminders to prevent gaps in therapy. Measured by: sx (pain, # BM, flaring, overall quality of life) Time-frame to meet goal: ongoing - pt has had adequate improvement, has no pain, no recent flares, good quality of life documented as of this encounter Visit Diagnoses Diagnosis Crohn's disease of ileum with other complication documented in this encounter Care Teams Welding Machine Tender Relationship Specialty Start Date End Date Irwin Gonsalez DO [address] [place] [address] [address] [place] [address] PCP - General 05/01/11 documented as of this encounter
--- OUTSIDE RECORDS SUMMARY | 2024-03-10 01:56 | XMS_ITS | Encounter Summary ---
Author Organization [facility] Address [facility] [place] [address] Care Team Providers Care Exceptional Children Teacher Name Role Phone Irwin Gonsalez DO Primary Care Provider Encounter Details Date Type Department Care Team (Latest Contact Info) Description 06/08/2023 4:30 PM EDT TH Visit (TeleHealth) [place] [id number] Ramonita Pandey MD [facility] [place] [address] Crohn's disease of ileum with other complication [...] on file documented as of this encounter Patient Instructions * Patient Instructions* Ramonita Pandey MD - 06/08/2023 4:30 PM EDT Humira 40 mg every week Labs within the next couple weeks for routine labs; will check Humira level in the blood. Schedule a visit for an intestinal ultrasound for end of Oct or Nov - repeat labs at [facility] at that time. Follow-up via telehealth with me or Thi Salgado APRN in about 8 months documented in this encounter Progress Notes * Ramonita Pandey MD - 06/08/2023 4:30 PM EDT [facility] IBD PROGRAM ESTABLISHED PATIENT TELEVISIT Patient Active Problem List Diagnosis Crohn's ileitis [...] MRE 02/2019 - normal. 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 Abnormal liver function test Overview Note: AALT 65-78 on increased dose of 6MP fatty hepatic replacement on CT HBsAb/Ag neg 2015 HCV neg 04/2019 ASMA neg 04/2019 Stopped AZA 03/2019 GERD (gastroesophageal reflux disease) Overview Note: responsive to Nexium CURRENT IBD MEDS: Humira 40 mg every week INTERVAL HISTORY: Mr Kacy follows up for Crohn's disease He has been feeling pretty good overall. Very busy time at work He gets sharp pains now and then in the RLQ but intermittent and fairly transient. No more frequent. Heavier than he wants to be - has gained weight. No swelling or pain at the anus. The seton fell out a while ago. No issues from his standpoint Please see Qorus questionnaire results below for further details re current symptoms. [facility] Pre-Visit Questionnaire 06/08/2023 4:49 PM EDT - Filed by Ramonita Pandey MD Number One Goal/Concern Check in IBD Dx Crohn's Disease Believe Will Benefit from Tx Change No Avg Liquid/Soft Stool per Day 1 Stool Frequency/Day 1-2 stools per day more than normal ! BM Urgency Last 7 days 3 Abd Pain Severity/Day None Blood in Stool No blood seen BM with Blood Alone No Well-being Generally well ED Visit Due to IBD No Hospitalized for IBD No Current Prednisone Use No Current Opioid Use for IBD No Confidence Level to Manage IBD 9 [facility] Ibd Qorus Study Participation 06/08/2023 4:49 PM EDT - Filed by Ramonita Pandey MD IBD Qorus Study Participant I'm interested, but I don't have time now IBD Qorus Provider Questionnaire Did you and your patient discuss your patient???s number one concern today? primary concern discussed How recently have you assessed for mucosal healing with endoscopy/imaging? more than 12 months and less than 3 years How recently have you assessed for mucosal healing with fecal calprotectin? never performed/I don???t know At the most recent assessment, had your patient achieved steroid-free mucosal healing? To answer YES, your patient should either have a Evans endoscopic subscore of 0-1 for UC or no more than a few aphthous ulcers in the ileum and/or colon for CD. Yes Did you discuss steroid-free mucosal healing with your patient today? No When do you next plan to assess for mucosal healing with endoscopy/imaging? within the next 6 months When do you next plan to assess for mucosal healing with fecal calprotectin? I don???t know at thistime Which medication(s) is your patient currently taking for their IBD? Other specified medication(s): Adalimumab If your patient has NOT achieved steroid-free mucosal healing, are you making any treatment changestoday? Other specified treatment change(s): Not relevant - patient has mucosal healing What is your Provider Global Assessment (PGA) for this patient today? Normal Do you believe your patient is at high risk of going to the ED for their IBD within the next month?No Review of systems: 14-point review of systems reviewed and negative except as above. Physical exam: No Physical Examination performed during this telemedicine visit Laboratory studies, imaging, and procedures (my review of prior records): Reviewed labs from [facility] 12/22/22 - CBC, CMP, ESR, CRP all unremarkable. Assessment and Plan: Mr. Woodruff is a 48 y.o. patient with Crohn's ileitis and perianal disease. He is doing over all very well. Seems to be in symptomatic remission. Has intermittent minor abdominal transient pains that may not be related directly to active Crohn's disease. I discussed getting an MR enterography at last visit, but he got busy at work and never scheduled it. Discussed obtaining an intestinal ultrasound in late summer (October or November. He is more amenable to doing this than MRE. Due for routine labs which should be drawn approximately 4 to 5 months. Will check ADA and quant gold as well. Colonoscopy no later than 5 yrs from last - ~05/2026 We discussed the following recommendations that were copied to the After Visit Summary: Humira 40 mg every week Labs within the next couple weeks for routine labs; will check Humira level in the blood. Schedule a visit for an intestinal ultrasound for end of Oct or Nov - repeat labs at [facility] at that time. Follow-up via telehealth with me or Thi Salgado APRN in about 8 months The patient was located in [place] at the time of their visit. Angelo Pandey MD Single Ending Machine Operatortax accountant Co-Director, [facility] Section of Gastroenterology [place] [address] documented in this encounter Plan of Treatment Upcoming Encounters Date Type Department Care Team (Latest Contact Info) Description 04/01/2024 12:35 PM EST Hospital Encounter [place] [address] Apurva Vivas MD [facility] [place] [address] 04/01/2024 12:35 PM EST - 04/01/2024 2:17 PM EST Surgery [place] [phone] Apurva Vivas MD [facility] [place] [address] ANORECTAL EXAM, REQUIRING ANESTHESIA, DIAGNOSTIC (WRVU 1.8) 04/26/2024 3:00 PM EST Office [place] [phone] Apurva Vivas MD [facility] [place] [address] Scheduled Orders Name Type Priority Associated Diagnoses Orde r Schedule CBC (with Diff) Lab Routine Crohn's disease of ileum with other complication Every 4 Weeks for 13 Occurrences starting 06/08/2023 until 06/06/2024 Comprehensive metabolic panel (non-fasting) Lab Routine Crohn's disease of ileum with other complication Every 4 Weeks for 13 Occurrences starting 06/08/2023 until 06/06/2024 CRP, acute inflammation Lab Routine Crohn's disease of ileum with other complication Every 4 Weeks for 13 Occurrences starting 06/08/2023 until 06/06/2024 Scheduled Procedures Name Priority Associated Diagnoses Date/Ti me ANORECTAL EXAM, REQUIRING ANESTHESIA, DIAGNOSTIC (WRVU 1.8) perianal crohns disease w/fistula 04/01/2024 12:35 PM EST SURGICAL TREATMENT OF ANAL FISTULA COMPLEX OR MULTIPLE W\WO SETON PLACEMENT (WRVU 6.39) perianal crohns disease w/fistula 04/01/2024 12:35 PM EST documented as of this encounter Goals Goal Patient Goal Type Associated Problems Recent Progress Patient-Stated? Author [facility] Medication Compliance and Understanding Patient Facing Action Plan On track( 017 9:39 PM EDT) Perri Hernandez, [facility] Note: Patient's specific desired goal: Igor [...] complication documented in this encounter Care Teams Exceptional Children Teacher Relationship Specialty Start Date End Date Irwin Gonsalez DO [address] [place] [address] [address] [place] [address] PCP - General 05/01/11 documented as of this encounter
--- OUTSIDE RECORDS SUMMARY | 2024-03-10 01:56 | XMS_ITS | Encounter Summary ---
[place] [address] Care Team Providers Care Caster Helper Name Role Phone Irwin Gonsalez DO Primary Care Provider [phone] Reason for Visit * Reason Comments Prior Authorization Humira 40mg/0.4mL PN KT Encounter Details Date Type Department Care Team (Late st Contact Info) Description 05/22/2023 Specialty [place] [address] Zainab Herrmann, [facility] Social History Tobacco Use Types Packs/Day Years [...] as of this encounter Progress Notes * Zainab Herrmann - 05/22/2023 8:03 AM EST [facility], Medication Prior Authorization Submission Patient: Igor Woodruff Patient : 1975 Patient Address: [address] [facility] [address] Phone: [phone] (home) Medication Name: HUMIRA(CF) PEN 40 MG/0.4 ML SUBCUTANEOUS KIT Medication ID: [id number] Subscriber Insurance: Unable to find Subscriber Insurance Comment: Isaac JJPARVIZ ([facility]) Fax: Physician: Ramonita MATAMOROS Physician Comment: Sent Via: [facility] Orellana: [id number] Ref/Case/PA#: [id number] Medication Strength Frequency Requested: Humira 40mg/0.4mL, INJECT 1 PEN UNDER THE SKIN EVERY 7 DAYS. Qty/Day Supply: 07/11 New Start: Renewal Diagnosis & ICD-10 Code: K50.018 Crohn's disease of ileum with other complication Patient Notified: No Submission Notes: Shay Herrmann 05/22/23 8:26 AM * Marielle Colbert - 05/22/2023 8:03 AM EST [facility], Prior Authorization Approval Medication Name: HUMIRA(CF) PEN 40 MG/0.4 ML SUBCUTANEOUS KIT Medication ID: [id number] Approval Dates: 05/21/2023 to 05/20/2024 Insurance requirements/notes: - Must fill with [facility] Special[facility]. Other Notes: None Case/Reference #: [id number] Approval notification Received via: Fax Copay: N/A - unable to determine due to insurance mandate Copay assistance: Copay Notes: Insurance mandated Pharmacy: TBD Fillable at [facility]: No Patient Notified: No Pharmacy staff will be reaching out to the patient to inform them of their medication's approval by[employer] insurance. If applicable, a pharmacist will speak with the patient to offer our specialty pharmacy services and to arrange delivery of their medication. Marielle Colbert 05/22/23 9:47 AM documented in this encounter Plan of Treatment Upcoming Encounters Date Type Department Care Team (Latest Contact Info) Description 04/01/2024 12:35 PM EST Hospital Encounter [place] [address] Apurva Vivas MD [facility] [address] 04/01/2024 12:35 PM EST - 04/01/2024 2:17 PM EST Surgery [place] [phone] Apurva Vivas MD [facility] [place] [address] ANORECTAL EXAM, REQUIRING ANESTHESIA, DIAGNOSTIC (WRVU 1.8) 04/26/2024 3:00 PM EST Office Visit [place] [phone] Apurva Vivas MD [facility] [address] Scheduled Procedures Name Priority Associated Diagnoses Date/Ti me ANORECTAL EXAM, REQUIRING ANESTHESIA, DIAGNOSTIC (WRVU 1.8) perianal crohns disease w/fistula 04/01/2024 12:35 PM EST SURGICAL TREATMENT OF ANAL FISTULA COMPLEX OR MULTIPLE W\WO SETON PLACEMENT (WRVU 6.39) perianal crohns disease w/fistula 04/01/2024 12:35 PM EST documented as of this encounter Goals Goal Patient Goal Type Associated Problems Recent Progress Patient-Stated? Author [facility] Medication Compliance and Understanding Patient Facing Action Plan On track( 017 9:39 PM EDT) Perri Hernandez, [facility] Note: Patient's specific desired goal: [...] documented as of this encounter Visit Diagnoses Not on filedocumented in this encounter Care Teams Caster Helper Relationship Specialty Start Date End Date Irwin Gonsalez DO [address] [place] [address] [address] [place] [address] PCP - General 05/01/11 documented as of this encounter
--- OUTSIDE RECORDS SUMMARY | 2024-03-10 01:56 | XMS_ITS | Clinical Summary ---
Author Organization [facility] Address [facility] [place] [address] Care Team Providers Care Crew Caller Name Role Phone Irwin Gonsalez DO Primary Care Provider Allergies No known active allergies Medications Medication Sig Dispensed Refills Start Date End Date Status esomeprazole (NEXIUM) 20 mg capsule Take 20 mg by mouth every morning (before breakfast). Active multivitamin (THERAGRAN) Tablet Take 1 tablet by mouth daily. Active alfuzosin (UROXATRAL) 10 mg Tablet Sustained Release 24 hr TAKE ONE TABLET BY MOUTH EVERY DAY 12 11/22/2015 Active acetaminophen (TYLENOL) 325 mg Tablet Take 2 tablets by mouth every 4 hours as needed for Pain. 30 tablet 1 05/23/2016 Active colestipoL (COLESTID) 1 gram Tablet Take 1 tablet by mouth 2 times daily. 60 tablet 3 05/23/2021 Active amLODIPine (Norvasc) 5 mg Tablet Take 5 mg by mouth daily. 08/11/2021 Active losartan (COZAAR) 100 mg Tablet Take 100 mg by mouth daily. 10/22/2021 Active Humira,CF, Pen 40 mg/0.4 mL Pen Injector KitIndications:Crohn's disease of ileum with other complication INJECT 1 PEN UNDER THE SKIN EVERY 7 DAYS 1.6 mL 5 12/10/2023 Active Active Problems Problem Noted Date Diagnosed Date Crohn's ileitis 07/07/2010 Overview (12/08/2022): diagnosed at age 17 yo S/p ileocolic resection 10/29/10 - 19.5 cm of terminal ileum with active inflammation, fibrosis and an enteroenteric fistula. SBFT 01/23 - persistent terminal ileal stricture as described above, consistent with the history of Crohn's, with additional adjacent entero-enteric fistula, findings similar [...] MRE 02/2019 - normal. Stopped AZA 03/2019 [place] 05/23/21 - Rutgeert's i1 - single small linear erosion limited to the anastomosis. 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 Abnormal liver function test 07/07/2010 Overview (10/03/2019): ?? AALT 65-78 on increased dose of 6MP ?? fatty hepatic replacement on CT ?? HBsAb/Ag neg 2015 ?? HCV neg 04/2019 ?? ASMA neg 04/2019 ?? Stopped AZA 03/2019 GERD (gastroesophageal reflux disease) 1 Overview (12/14/2011): responsive to Nexium Encounters Date Type Department Care Team Description 03/03/2024 9:00 AM EST TH Visit (TeleHealth) [place] [address] Nereyda Salgado, LINE UP WORKER Crohn's disease of ileum with other complication 03/02/2024 Specialty [place] [address] Thao Ruiz CPHT 03/02/2024 Telephone Gastroenterology at [place] [phone] Kathleen Chaney MD 03/01/2024 Telephone General Surgery at [place] [phone] Bárbara Santoro PA 02/27/2024 10:18 AM EST - 02/27/2024 11:59 PM EST Hospital Encounter MRI at [place] [phone] Apurva Vivas MD Crohn's disease of perianal region with fistula Discharge Disposition: Home 02/27/2024 Travel 02/25/2024 Telephone [place] [address] Sabas Gonzales, RN 02/23/2024 Telephone [place] [address] Shannan Barnard, RN 02/17/2024 12:00 PM EST Office Visit [place] [address] Bárbara Santoro PA Crohn's disease of perianal region with fistula 02/17/2024 Travel 02/08/2024 4:40 PM EST TH Visit (TeleHealth) [place] [address] Ramonita Pandey MD Crohn's disease of ileum with other complication 12/11/2023 Specialty Pharmacy [place] [address] Liv Alba, MORE 12/10/2023 Orders Only Gastroenterology at [place] [phone] Ramonita Pandey MD Crohn's disease of ileum with other complication from Last 3 Months Immunizations Name Administration Dates Next Due Pneumococcal 13-Valent Conjugate (Prevnar 13) Pneumococcal 23-Valent Polysaccharide (Pneumovax 23) 10/10/2014 Family History Medical History Relation Comments Crohn Disease Other Relation Status Comments Other Social History Tobacco Use Types Packs/Day Years Used Date Smoking Tobacco: Never Smokeless Tobacco: Never Alcohol Use Standard Drinks/Week Comments Yes 1 (1 standard drink = 0.6 oz pur e alcohol) Sex and Gender Information Value Date Recorded Sex Assigned at Male 06/08/2023 4:49 PM EDT Gender Identity Not on file Sexual Orientation Not on file Last Filed Vital Signs Vital Sign Reading Time Taken Comments Blood Pressure 141/77 02/17/2024 11:56 AM EST Pulse 93 02/17/2024 11:56 AM EST Temperature 36.3 ??C (97.3 ??F) 05/23/2021 2:59 PM ES T Respiratory Rate 16 02/17/2024 11:5 6 AM EST Oxygen Saturation 98% 02/17/2024 11: 56 AM EST Inhaled Oxygen Concentration - - Weight 113.1 kg (249 lb 4.8 oz) 024 11:56 AM EST Height 182.9 cm (6') 12/09/2022 5:00 PM EDT Body Mass Index 33.81 12/09/2022 5:00 PM EDT Plan of Treatment Upcoming Encounters Date Type Department Care Team (Latest Contact Info) Description 04/01/2024 12:35 PM EST Hospital Encounter [place] [phone] Apurva Vivas MD [facility] [place] [address] 04/01/2024 12:35 PM EST - 04/01/2024 2:17 PM EST [place] [phone] Apurva Vivas MD [facility] [place] [address] ANORECTAL EXAM, REQUIRING ANESTHESIA, DIAGNOSTIC (WRVU 1.8) 04/26/2024 3:00 PM EST Office Visit [place] [address] Apurva Vivas MD [facility] [place] [address] Scheduled Procedures Name Priority Associated Diagnoses Date/Ti me ANORECTAL EXAM, REQUIRING ANESTHESIA, DIAGNOSTIC (WRVU 1.8) perianal crohns disease w/fistula 04/01/2024 12:35 PM EST SURGICAL TREATMENT OF ANAL FISTULA COMPLEX OR MULTIPLE W\WO SETON PLACEMENT (WRVU 6.39) perianal crohns disease w/fistula 04/01/2024 12:35 PM EST Health Maintenance Due Date Last Done Comments CT Colonography 1975 FIT DNA 1975 FIT 1975 Sigmoidoscopy 1975 HIV screen 1993 Hepatitis C Screening 1993 Lipid Screening 1993 Hepatitis B vaccine (0-59 yrs) (1) 1994 Tetanus/Diphtheria/Pertussis Vaccines (1 - Tdap) 1994 Diabetes Screening (HgbA1C o r Glucose) 10/19/2020 10/19/2017, 11/01/2010, 10/31/2010, Additional history exists Covid-19 Vaccine (1 - 2023-2 5 season) 2023 Influenza (Flu) vaccine (1 o f 1 - Influenza standard series) 11/15/2023 Colonoscopy 05/24/2031 05/23/2021, 03, 02/09/2017, Additional history exists Colorectal Cancer Screening 05/24/2031 Sigmoidoscopy (10 year) with FIT yearly 05/24/2031 05/23/2021, 05/23/2021, 02/09/2017, Additional history exists Goals Goal Patient Goal Type Associated Problems Recent Progress Patient-Stated? Author [facility] Medication Compliance and Understanding Patient Facing Action Plan On track( 017 9:39 PM EDT) Perri Hernandez, [facility] Note: Patient's specific desired goal: Igor would [...] no recent flares, good quality of life Medical Devices Implanted Type Area Oilseed Meat Presser Device Identifier Shelf Expiration Date Model / Serial / Lot Stent,Contour [id number] ([id number]) - [id number] Implanted:Qty : 1 on 05/23/2016 by Dougie Husain Jr., MD at [facility] IMPLANTS Left: Ureter DO NOT USE [employer] - [id number] 01/02/2018 [facility]-724-R T1 / / [id number] Explanted Type Area Oilseed Meat Presser Device Identifier Shelf Expiration Date Model / Serial / Lot Stent,Uret,Uni v,Soft,8fr,24c m ([id number]) - [id number] Implanted:Qty: 1 on 05/02/2016 by Melisa Shay MD at [facility] Explanted:Qty: 1 on 05/23/2016 by Dougie Husain Jr., MD at [facility] IMPLANTS DO NOT USE [employer] - [id number] 06/03/2018 [facility]-824-RT 1 / / [id number] Procedures Procedure Name Priority Date/Time Associated Diagnosis Comments MRI PELVIS SOFT TISSUE (GI DRY DRUG WORKER) WWO CONTRAST Routine 02/27/2024 12:39 PM EST Crohn's disease of perianal region with fistula ORDS - PROVIDER CARE SCAN 02/23/2024 12:00 AM EST LAB SCAN 01/12/2024 12:00 AM EDT COLONOSCOPY Routine 05/23/2021 2:40 PM EST COMPREHENSIVE METABOLIC PANEL Routine 10/19/2017 11:47 AM EDT Crohn's disease of ileum with rectal bleeding from Last 3 Months or Most Recently Relevant to Health Maintenance Results * MRI Pelvis Soft Tissue (GI DRY DRUG WORKER) wwo Contrast (02/27/2024 12:39 PM EST) WORKSTATION ID [id number] RAD Anatomical Region Laterality Modality Pelvis Magnetic Resonan ce Impressions 03/01/2024 10:44 AM EST Right intersphincteric fistula containing seton. New subcutaneous right gluteal abscess (3.1 cm) with connecting enhancing tract. Thank you for letting us participate in the care of this patient. ??If you are a health care provider and have any questions regarding this report, please contact the number below. ??For patients who have questions please contact the health lawn caretaker that requested your imaging first. ? Electronically signed by: Dwain Benitez MD, [facility] ([phone]), at 03/01/2024 10:44 AM Narrative 03/01/2024 10:44 AM EST EXAMINATION: MRI PELVIS SOFT TISSUE (GI DRY DRUG WORKER) WWO CONTRAST CLINICAL HISTORY: hx fistulizing perianal Crohn's disease - increased pain/swelling. prior seton placement right lateral K50.113, Crohn's disease of large intestine with fistula - K60.30, Anal fistula, unspecified TECHNIQUE: MRI of the pelvis prior to and following the intravenous administration of 23ml Dotarem. COMPARISON: MRI PELVIS SOFT TISSUE (GI DRY DRUG WORKER) WWO CONTRAST 01/21/2016 MR Enterography 02/25/2019 FINDINGS: Anal fistula: A hypointense seton is visible in the intersphincteric fat on the right side associated with trace T2 hyperintense fluid without peripheral enhancement or reduced diffusion. Connected to this inferiorly there is a thin peripheral enhancing fluid collection of the right gluteal fold consistent with an abscess that measures 0.7 x 1.8 x 3.1 cm (transverse, craniocaudal, AP). ??The fistula was present in 2016; the gluteal abscess is new. Ischioanal fossa: Normal signal; no fluid collection. Peritoneum: No free fluid or loculated collection. Lymph nodes: No adenopathy. GI tract: No bowel wall thickening or dilatation. No adjacent inflammation. Reproductive structures: Mildly enlarged prostate. Normal seminal vesicles. Marrow signal: Normal. Procedure Note Dwain Benitez MD - 03/01/2024 EXAMINATION: MRI PELVIS SOFT TISSUE (GI DRY DRUG WORKER) WWO CONTRAST CLINICAL HISTORY: hx fistulizing perianal Crohn's disease - increased pain/swelling. prior seton placement right lateral K50.113, Crohn's disease of large intestine with fistula - K60.30, Analfistula, unspecified TECHNIQUE: MRI of the pelvis prior to and following the intravenous administration of 23ml Dotarem. COMPARISON: MRI PELVIS SOFT TISSUE (GI DRY DRUG WORKER) WWO CONTRAST 01/21/2016 MR Enterography 02/25/2019 FINDINGS: Anal fistula: A hypointense seton is visible in the intersphincteric faton the right side associated with trace T2 hyperintense fluid withoutperipheral enhancement or reduced diffusion. Connected to this inferiorly there is athin peripheral enhancing fluid collection of the right gluteal fold consistentwith an abscess that measures 0.7 x 1.8 x 3.1 cm (transverse, craniocaudal,AP). The fistula was present in 2016; the gluteal abscess is new. Ischioanal fossa: Normal signal; no fluid collection. Peritoneum: No free fluid or loculated collection. Lymph nodes: No adenopathy. GI tract: No bowel wall thickening or dilatation. No adjacentinflammation. Reproductive structures: Mildly enlarged prostate. Normal seminalvesicles. Marrow signal: Normal. IMPRESSION Right intersphincteric fistula containing seton. New subcutaneous rightgluteal abscess (3.1 cm) with connecting enhancing tract. Thank you for letting us participate in the care of this patient. If youare a health care provider and have any questions regarding this report,please contact the number below. For patients who have questions please contactthe health lawn caretaker that requested your imaging first. Electronically signed by: Dwain Benitez MD, [facility]([phone]), at 03/01/2024 10:44 AM Apurva Vivas MD IMG MRI ORDERABLES * Scan Doc: [facility] - Provider Care (02/23/2024 12:00 AM EST) Narrative 02/23/2024 12:00 AM EST Ordered by an unspecified provider. Scanning Provider MEDIA MGR SCAN EXT O RDR/RSLT * Scan Doc: Lab (01/12/2024 12:00 AM EDT) Narrative 01/12/2024 12:00 AM EDT Ordered by an unspecified provider. Scanning Provider MEDIA MGR SCAN EXT O RDR/RSLT * COLONOSCOPY (05/23/2021 2:40 PM EST) [facility] Signature COLONOSCOPY [facility] Endoscopy Procedure Date: 05/23/2021 2:40 PM ? Patient Name: Igor Woodruff ? N: [id number] ? Date of : 1975 ? Age: 46 ? Order #: [id number] ? Instrument Name: [id number] ? Procedure: ? Colonoscopy Patient Profile: ? This is a 46 year old male. This ? patient has ileal Crohn's disease ? with perianal involvement, is taking ? adalimumab and is experiencing mild ? symptoms. Providers: ? Angelo Pandey MD, Jania Shaw, ? Elmo Espinosa, Underwear Finisher Referring : ?Irwin Gonsalez, DO Medicines: ? Midazolam 5 mg IV, Fentanyl 200 ? micrograms IV Complications: ? No immediate complications. Procedure: ? Pre-Anesthesia Assessment: ? - Prior to the procedure, a History ? and Physical was performed, and ? patient medications and allergies ? were reviewed. The patient is ? competent. The risks and benefits of ? the procedure and the sedation ? options and risks were discussed with ? the patient. All questions were ? answered and informed consent was ? obtained. Patient identification and ? proposed procedure were verified by ? the physician in the pre-procedure ? area in the endoscopy suite. Mental ? Status Examination: alert and ? oriented. Airway Examination: normal ? oropharyngeal airway and neck ? mobility. Respiratory Examination: ? clear to auscultation. CV ? Examination: normal. ASA Grade ? Assessment: II - A patient with mild ? systemic disease. After reviewing the ? risks and benefits, the patient was ? deemed in satisfactory condition to ? undergo the procedure. The anesthesia ? plan was to use moderate sedation / ? analgesia (conscious sedation). ? Immediately prior to administration ? of medications, the patient was ? re-assessed for adequacy to receive ? sedatives. The heart rate, ? respiratory rate, oxygen saturations, ? blood pressure, adequacy of pulmonary ? ventilation, and response to care ? were monitored throughout the ? procedure. The physical status of the ? patient was re-assessed after the ? procedure. ? The procedure, indications, benefits, ? risks and alternatives were explained ? to the patient. Specifically ? discussed were potential ? complications including, but not ? limited to, bleeding, perforation, ? infection, missing a cancer, and ? adverse medication reactions. The ? patient was placed in the left ? lateral decubitus position, and a ? digital rectal exam was performed. ? The Colonoscope was inserted in the ? anus and under direct visualization, ? advanced to 20 cm into the ileum. ? Careful inspection was made as the ? colonoscope was withdrawn. The ? colonoscopy was performed without ? difficulty. The patient tolerated the ? procedure well. Scope withdrawal time ? was 6 minutes. The quality of the ? bowel preparation was evaluated using ? the BBPS ([place] Bowel Preparation ? Scale) with scores of: Right Colon = ? NA (segment surgically absent or not ? seen due to reasons unrelated to ? bowel prep (i.e. technical ? difficulties or patient ? intolerance)), Transverse Colon = 3 ? (entire mucosa seen well with no ? residual staining, small fragments of ? stool or opaque liquid) and Left ? Colon = 3 (entire mucosa seen well ? with no residual staining, small ? fragments of stool or opaque liquid). ? The total BBPS score equals 6* (*this ? score is the summation of 2 or fewer ? segments). ? Findings: ? The perianal exam findings include a perianal fistula ? in the R posterolateral quadrant with a seton in ? place. There was no induration, drainage, erythema. ? The digital exam was normal without any stenosis ? noted. ? Apart from the previously described [id number] ? widely patent ileocolonic anastomosis in the ? ascending colon, the colon was normal. At the ? anastomosis, there was a 5 mm single shallow linear ? erosion limited to the staple line. It otherwise ? appeared healthy. Several non-targeted biopsies were ? taken with a cold forceps from the R and the L colon ? separately to evaluate for histologic activity. ? The galen-terminal ileum appeared normal. It was ? examined for 25 cm from the ileocolonic anastomosis. ? Moderate Sedation: ? I was present during the intraservice time as ? documented by the sedation RN. Impression: ?- Crohn's ileitis in remission except ? for a single small linear erosion ? limited to the anastomosis. ? - Perianal fistula found on perianal ? exam. It appeared quiescent without ? any signs of active inflammation. ? - The examined portion of the ileum ? was normal. ? - Biopsies taken from the colon. Recommendation: ?- Continue Humira. ? - Start colestipol one tablet twice ? per day for diarrhea. ? - Await pathology results. ? - Follow-up in IBD Clinic. ? Attending Participation: ? I personally performed the entire procedure. ? __ L. Timothy Pandey MD 05/23/2021 4:58:15 PM Number of Addenda: 0 Note Initiated On: 05/23/2021 2:40 PM PROVATION 05/23/2021 2:40 PM EST Irwin Gonsalez DO GENERAL SURGICAL ORD ERABLES PROVATION * (ABNORMAL) Comprehensive metabolic panel (non-fasting) (10/19/2017 11:47 AM EDT) Glucose 94 65 - 199 mg/dL [facility] Comment:Diabetes: >=200 mg/d L plus symptoms Blood Urea Nitrogen 15 10 - 20 mg/dL [facility] Creatinine 0.89 0.80 - 1.50 mg/dL [facility] Sodium 142 135 - 145 mmol/L [facility] Potassium 4.0 3.5 - 5.0 mmol/L [facility] Comment: Please note: ??Patients with WBC >100,000 may have falsely elevated Potassium levels. ??For accurate Potassium quantification in these patients send serum separator tube (gold top) for subsequent determinations. ??Contact the Clinical Chemistry Laboratory if there are any questions. Chloride 101 98 - 107 mmol/L [facility] Carbon Dioxide 27 22 - 31 mmol/L [facility] Anion Gap 14 5 - 15 mmol/L [facility] Calcium 9.8 8.5 - 10.5 mg/dL [facility] Protein, Total 7.4 6.1 - 8.0 gm/dL [facility] Albumin 4.5 3.2 - 5.2 gm/dL [facility] Aspartate Aminotransferase 31 0 - 39 unit/L [facility] Alanine Aminotransferase 43 0 - 55 unit/L [facility] Alkaline Phosphatase 59 40 - 120 unit/L [facility] Bilirubin, Total 1.5(H) 0.2 - 1.3 mg/dL [facility] Est Glomerular Filtration Rate 105 >=60 mL/min/1. 73 m?? [facility] Comment: The eGFR was calculated using the CKD-EPI equation. As with all creatinine based estimates of kidney function, eGFR values calculated with the CKD-EPI equation are not accurate in patients with acute kidney failure, extremes of body mass or the acutely ill. http://[employer]/[facility] eGFR 122 >=60 mL/min/1. 73 m?? [facility] Comment: The eGFR was calculated using the CKD-EPI equation. As with all creatinine based estimates of kidney function, eGFR values calculated with the CKD-EPI equation are not accurate in patients with acute kidney failure, extremes of body mass or the acutely ill. http://[employer]/[facility] Blood specimen (specimen) 10/19/2017 11:47 AM EDT 10/19/2017 11:52 AM EDT Narrative Resulting Agency Comment Spec In Lab L Timothy Pandey MD CHEMISTRY ORDERABLES [facility] [address] [place] [address] from Last 3 Months or Most Recently Relevant to Health Maintenance Advance Directives * Full Code (Latest Code Status on File) Date Activated Date Inactivated Comments 02/26/2016 8:15 AM 05/23/2021 2:35 PM Question Answer Comments Does patient have capacity to make decision: Yes * Full Code Date Activated Date Inactivated Comments 10/29/2010 1:18 PM 11/01/2010 1:35 PM Question Answer Comments Order Status: Initial Order Does patient have decision m aking capacity? Yes, Order is based on Patients wishes. * Full Code Date Activated Date Inactivated Comments 10/29/2010 6:51 AM 10/29/2010 1:18 PM Question Answer Comments Order Status: Initial Order Does patient have decision m aking capacity? Yes, Order is based on Patients wishes. Care Teams Crew Caller Relationship Specialty Start Date End Date Irwin Gonsalez DO [address] [place] [address] [address] [place] [address] PCP - General 05/01/11
--- OUTSIDE RECORDS SUMMARY | 2024-03-10 01:56 | XMS_ITS | Encounter Summary ---
[place] [address] Care Team Providers Care Disaster Recovery Analyst Name Role Phone Irwin Gonsalez DO Primary Care Provider Encounter Details Date Type Department Care Team (Late st Contact Info) Description 06/12/2023 Telephone [place] [phone] Leila Mccallum Social History Tobacco Use Types Packs/Day Years Used Date Smoking Tobacco: Never Smokeless Tobacco: Never Alcohol Use Standard Drinks/Week Comments Yes 1 (1 standard drink = 0.6 oz pur e alcohol) Sex and Gender Information Value Date Recorded Sex Assigned at Male 06/08/2023 4:49 PM EDT Gender Identity Not on file Sexual Orientation Not on file documented as of this encounter Miscellaneous Notes * Telephone Encounter - Catrina Verduzco - 06/12/2023 1:01 PM EDT Igor returned Leila's call and I scheduled him for an IUS with Dr. Rosas on 11/09/23 at 8:30 am. * Telephone Encounter - Leila Mccallum - 06/12/2023 12:53 PM EDT Left message. IUS with Alison in late Oct or early Nov pls per Dr. Pandey documented in this encounter Plan of Treatment Upcoming Encounters Date Type Department Care Team (Latest Contact Info) Description 04/01/2024 12:35 PM EST Hospital Encounter [place] [address] Apurva Vivas MD [facility] [place] [address] 04/01/2024 12:35 PM EST - 04/01/2024 2:17 PM EST Surgery [place] [phone] Apurva Vivas MD [facility] [address] [place] [address] ANORECTAL EXAM, REQUIRING ANESTHESIA, DIAGNOSTIC (WRVU 1.8) 04/26/2024 3:00 PM EST Office Visit [place] [phone] Apurva Vivas MD [facility] [address] [place] [address] Scheduled Procedures Name Priority Associated Diagnoses Date/Ti me ANORECTAL EXAM, REQUIRING ANESTHESIA, DIAGNOSTIC (WRVU 1.8) perianal crohns disease w/fistula 04/01/2024 12:35 PM EST SURGICAL TREATMENT OF ANAL FISTULA COMPLEX OR MULTIPLE W\WO SETON PLACEMENT (WRVU 6.39) perianal crohns disease w/fistula 04/01/2024 12:35 PM EST documented as of this encounter Goals Goal Patient Goal Type Associated Problems Recent Progress Patient-Stated? Author [facility] Medication Compliance and Understanding Patient Facing Action Plan On track( 017 9:39 PM EDT) No Perri Sousa, [facility] Note: Patient's specific desired goal: Igor [...] on filedocumented in this encounter Care Teams Disaster Recovery Analyst Relationship Specialty Start Date End Date Irwin Gonsalez DO [address] [place] [address] PCP - General 05/01/11 documented as of this encounter
--- OUTSIDE RECORDS SUMMARY | 2024-03-10 01:56 | XMS_ITS | Encounter Summary ---
[place] [address] Care Team Providers Care Machinist Supervisor Outside Name Role Phone Irwin Gonsalez DO Primary Care Provider [phone] Encounter Details Date Type Department Care Team (Latest Contact Info) Description 11/09/2023 Travel Social History Tobacco Use Types Packs/Day Years Used Date Smoking Tobacco: Never Smokeless Tobacco: Never Alcohol Use Standard Drinks/Week Comments Yes 1 (1 standard drink = 0.6 oz pur e alcohol) Sex and Gender Information Value Date Recorded Sex Assigned at Male 06/08/2023 4:49 PM EDT Gender Identity Not on file Sexual Orientation Not on file documented as of this encounter Plan of Treatment Upcoming Encounters Date Type Department Care Team (Latest Contact Info) Description 04/01/2024 12:35 PM EST Hospital Encounter [place] [address] Apurva Vivas MD [facility] [place] [address] 04/01/2024 12:35 PM EST - 04/01/2024 2:17 PM EST Surgery [place] [phone] Apurva Vivas MD [facility] [place] [address] ANORECTAL EXAM, REQUIRING ANESTHESIA, DIAGNOSTIC (WRVU 1.8) 04/26/2024 3:00 PM EST Office Visit General Surgery at [facility] [place] [address] Apurva Vivas MD [facility] [place] [address] Scheduled Procedures Name Priority Associated Diagnoses Date/Ti nd ANORECTAL EXAM, REQUIRING ANESTHESIA, DIAGNOSTIC (WRVU 1.8) perianal crohns disease w/fistula 04/01/2024 12:35 PM EST SURGICAL TREATMENT OF ANAL FISTULA COMPLEX OR MULTIPLE W\WO SETON PLACEMENT (WRVU 6.39) perianal crohns disease w/fistula 04/01/2024 12:35 PM EST documented as of this encounter Goals Goal Patient Goal Type Associated Problems Recent Progress Patient-Stated? Author DH Home Medication Compliance and Understanding Patient Facing Action Plan On track( 017 9:39 PM EDT) No Perri Sousa, [facility] Note: Patient's specific desired goal: [...] on filedocumented in this encounter Care Teams Machinist Supervisor Outside Relationship Specialty Start Date End Date Irwin Gonsalez DO [address] [place] [address] PCP - General 05/01/11 documented as of this encounter
--- OUTSIDE RECORDS SUMMARY | 2024-03-10 01:56 | XMS_ITS | Encounter Summary ---
[place] [address] Care Team Providers Care Nuclear Fuels Research Engineer Name Role Phone Irwin Gonsalez DO Primary Care Provider Encounter Details Date Type Department Care Team (Late st Contact Info) Description 02/23/2024 Telephone [place] [phone] Shannan Barnard RN Social History Tobacco Use Types Packs/Day Years [...] encounter Miscellaneous Notes * Telephone Encounter - Sabas Gonzales RN - 03/03/2024 2:11 PM EST Auth letter received. Faxed to [facility] and scanned in to chart * Telephone Encounter - Shannan Barnard RN - 02/24/2024 9:36 AM EST Approved: 03/01/24-03/02/25 Auth #[id number] Order to [facility] * Telephone Encounter - Shannan Barnard RN - 02/23/2024 9:41 AM EST Prior Authorization Facility: [facility] TIN: [id number] MD Medicaid ID# for facility: Medication: remicade J-code: [id number] Dosage: 5 mg\kg (114 kg)= 565.5 mg or 600 mg Frequency & Route: IV week 0,2,6 then every 8 weeks Insurance & Phone #: [place]/[phone] ID #: [id number] Trialed (dosage, frequency): Imuran, Asacol, 6MP, Humira 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 Notes: Sent for clinical review, turn around time 5 days Ref# [id number] documented in this encounter Plan of Treatment Upcoming Encounters Date Type Department Care Team (Latest Contact Info) Description 04/01/2024 12:35 PM EST Hospital Encounter [place] [address] Apurva Vivas MD [facility] [place] [address] 04/01/2024 12:35 PM EST - 04/01/2024 2:17 PM EST Surgery [place] [address] Apurva Vivas MD [facility] [place] [address] ANORECTAL EXAM, REQUIRING ANESTHESIA, DIAGNOSTIC (WRVU 1.8) 04/26/2024 3:00 PM EST Office [place] [address] Apurva Vivas MD [facility] [place] [address] Scheduled Procedures Name Priority Associated Diagnoses Date/Ti [...] track( 017 9:39 PM EDT) Perri Hernandez, [facility] Note: Patient's specific desired goal: Igor would [...] on filedocumented in this encounter Care Teams Nuclear Fuels Research Engineer Relationship Specialty Start Date End Date Irwin Gonsalez DO [address] [place] [address] PCP - General 05/01/11 documented as of this encounter
--- OUTSIDE RECORDS SUMMARY | 2024-03-10 01:56 | XMS_ITS | Encounter Summary ---
Author Organization [facility] [place] [address] Care Team Providers Care Senior Vice President & General Counsel Name Role Phone Irwin Gonsalez DO Primary Care Provider [phone] Encounter Details Date Type Department Care Team (Late Contact Info) Description 03/02/2024 Telephone [place] [address] Kathleen Chaney MD [facility] [place] [address] Social History Tobacco Use Types Packs/Day Years [...] encounter Miscellaneous Notes * Telephone Encounter - Kathleen Chaney MD - 03/02/2024 1:50 PM EST Attempted call to Igor to discuss abx plan prior to EUA/seton placement, as had been thinking likely should not be on abx entire time leading up to procedure given late March. However, in light of MRE findings, likely should remain on abx until procedure. Will send portal message documented in this encounter Plan of Treatment Upcoming Encounters Date Type Department Care Team (Latest Contact Info) Description 04/01/2024 12:35 PM EST Hospital Encounter [place] [address] Apurva Vivas MD [facility] [place] [address] 04/01/2024 12:35 PM EST - 04/01/2024 2:17 PM EST Surgery [place] [phone] Apurva Vivas MD [facility] [place] [address] ANORECTAL EXAM, REQUIRING ANESTHESIA, DIAGNOSTIC (WRVU 1.8) 04/26/2024 3:00 PM EST Office [place] [phone] Apurva Vivas MD [facility] [place] [address] Scheduled Procedures Name Priority Associated Diagnoses Date/Ti me ANORECTAL EXAM, REQUIRING ANESTHESIA, DIAGNOSTIC (WRVU 1.8) perianal crohns disease w/fistula 04/01/2024 12:35 PM EST SURGICAL TREATMENT OF ANAL FISTULA COMPLEX OR MULTIPLE W\WO SETON PLACEMENT (WRVU 6.39) perianal crohns disease w/fistula 04/01/2024 12:35 PM EST documented as of this encounter Goals Goal Patient Goal Type Associated Problems Recent Progress Patient-Stated? Author DH Julian Medication Compliance and Understanding Patient Facing Action Plan On track( 017 9:39 PM EDT) Perri Hernandez, [facility] Note: Patient's specific desired goal: Igor would [...] on filedocumented in this encounter Care Teams Senior Vice President & General Counsel Relationship Specialty Start Date End Date Irwin Gonsalez DO [address] [place] [address] [address] [place] [address] PCP - General 05/01/11 documented as of this encounter
--- OUTSIDE RECORDS SUMMARY | 2024-03-10 01:56 | XMS_ITS | Encounter Summary ---
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 Procedures MRI Pelvis Soft Tissue (GI COSMETOLOGIST) wwo Contrast Bárbara Santoro PA [facility] [place] [address] [place] [address] Referral ID Status Reason Start Date Expiration Date V isits Requested Visits Authorized [id number] Closed Specialty Service Requested 02/17/2024 08/17/2025 1 1 Reason for Visit * Reason Comments Follow-up Encounter Details Date Type Department Care Team (Late st Contact Info) Description 02/17/2024 12:00 PM EST Office [place] [address] Bárbara Santoro PA [facility] [place] [address] (work) Crohn's disease of perianal region with fistula Social History Tobacco Use Types Packs/Day Years Used Date Smoking Tobacco: Never Smokeless Tobacco: Never Alcohol Use Standard Drinks/Week Comments Yes 1 (1 standard drink = 0.6 oz pur e alcohol) Sex and Gender Information Value Date Recorded Sex Assigned at Male 06/08/2023 4:49 PM EDT Gender Identity Not on file Sexual Orientation Not on file documented as of this encounter Last Filed Vital Signs Vital Sign Reading Time Taken Comments Blood Pressure 141/77 02/17/2024 11:56 AM EST Pulse 93 02/17/2024 11:56 AM EST Temperature - - Respiratory Rate 16 02/17/2024 11:5 6 AM EST Oxygen Saturation 98% 02/17/2024 11: 56 AM EST Inhaled Oxygen Concentration - - Weight 113.1 kg (249 lb 4.8 oz) 024 11:56 AM EST Height - - Body Mass Index 33.81 12/09/2022 5:00 PM EDT documented in this encounter Progress Notes * Bárbara Santoro PA - 02/17/2024 12:00 PM EST Colorectal Surgery Outpatient Consultation ~ Division of Colon and Rectal Surgery ~ [facility] HPI: Igor Woodruff is a pleasant 48 y.o. male who we were asked to see by Dr. Chaney regarding penetrating Crohn's ileocolitis and perianal disease. The patient's PCP is Irwin Gonsalez DO. Patient has longstanding diagnosis of penetrating ileocolonic and perianal Crohn's disease. He has undergone EUA with seton placement (right posterior) with Dr. Apurva Vivas in February 2016. The seton had self extracted in 2019, saw Brent De Los Santos in follow-up in September 2019. His exam at that time was notable for a focal area of swelling and purulent discharge in the right posterior perianal skin,seton was placed in clinic. Patient notes that this was a very painful experience. He notes that hedoes not have any seton in place at this point in time, thinks that the seton fell out approximately 1 year ago. Over the last couple of months, he has had intermittent swelling and drainage from an a katerine similar in location to where his previous seton was. Proximately 10 days ago, he was having more significant perianal skin irritation/pain related to his known fistulas. He had telehealth follow-up with his GI team (Dr. Matamoros and Dr. Chaney) who started him on ciprofloxacin and Flagyl and arranged for short interval evaluation with our service. Igor notes that the antibiotics have calm down some of the inflammation and pain/swelling on the perianal skin itself. He feels that the area that became aggravated was on the right side, in similar location to where his prior setons were. He does not have any significant swelling today. He has had some intermittent discharge, yellow/clear, this does not occur on a daily basis. He does not haveany fevers or chills. In regards to his Crohn's disease, he continues to be on Humira, once a week, although there is discussion regarding transitioning to Remicade. He has not had any significant abdominal symptoms. Willhave occasional sharp right upper quadrant abdominal pain, however, this does go away relatively quickly. He has not had any nausea, vomiting, bloating. His weight has been relatively stable. He is passing stool on a daily basis, generally 3-5 BM/day. Since being on antibiotics, he has noticed thathis bowel movements are slightly more frequent and a little bit looser. He has had no difficulty inhis bowel control. He is having some perianal pain/soreness on the right perianal skin where he is n oticing to be increasingly symptomatic fistula. He has not had any surgeries since Brent placed his seton in 2019. Family history notable for Crohn's disease in a paternal cousin and great uncle on his father side.No known family history of colorectal cancer or polyps. He has 2 children, both of which are healthy with no evidence of UC or Crohn's. Brief Summary of his IBD Diagnosed at age 17 yo S/p ileocolic resection [...] MRE 02/2019 - normal. Stopped AZA 03/2019 [place] 05/23/21 - Rutgeert's i1 - single small linear erosion limited to the anastomosis. 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 CURRENT IBD MEDS: Humira qweekly Review of Systems Past medical history: Patient Active Problem List Diagnosis Code Crohn's ileitis K50.00 Abnormal liver function test R79.89 GERD (gastroesophageal reflux disease) K21.9 Past surgical history: Past Surgical History: Procedure Laterality Date APPENDECTOMY 1999 MENISCECTOMY 2002 arthroscopic, R knee PRG FLUOROSCOPY EXAM UP TO 1 HR PHY OR OTH HLTH CARE PROV Left 05/02/2016 FLUOROSCOPY (WRVU 0.17) performed by Dougie Husain Jr., MD at [facility] OSC PRG FLUOROSCOPY EXAM UP TO 1 HR PHY OR OTH HLTH CARE PROV Left 05/23/2016 FLUROSCOPY:UP TO ONE HOUR (WRVU 0.17) performed by Dougie Husain Jr., MD at [facility] OSC PRO COLONOSCOPY, BIOPSY 05/01/2011 COLONOSCOPY FLEXIBLE, WITH BX performed by Ramonita MATAMOROS at [facility] ENDOSCOPY PRO COLONOSCOPY, BIOPSY N/A 05/23/2021 COLONOSCOPY FLEXIBLE, WITH BX (WRVU 3.66) performed by Ramonita Matamoros MD at [facility] ENDOSCOPY PRO COLONOSCOPY, DIAGNOSTIC 02/25/2013 COLONOSCOPY, DIAGNOSTIC performed by Ramonita Matamoros MD at [facility] ENDOSCOPY PRO COLONOSCOPY, DIAGNOSTIC N/A 02/09/2017 COLONOSCOPY, DIAGNOSTIC performed by Corky Hollingsworth MD at [facility] ENDOSCOPY PRO CYSTO W URETEROSCOPY &/OR PYELOSCOPY, DX Left 05/02/2016 CYSTOURETEROSCOPY, DIAGNOSTIC (WRVU 5.75) performed by Dougie Husain Jr., MD at [facility] OSC PRO CYSTO/URETEROSCOPY W/LITHOTRIPSY INC INDWELLING STENT INSERTION Left 05/23/2016 CYSTOURETEROSCOPY,DIAGNOSTIC,W/ LITHOTRIPSY INC. INSERTION OF INDWELLING URETERAL STENT (WRVU 8) performed by Dougie Husain Jr., MD at [facility] OSC PRO CYSTOSCOPY, INSERT URETERAL STENT Left 05/02/2016 CYSTO, STENT PLACEMENT (WRVU 2.82) performed by Dougie Husain Jr., MD at [facility] OSC PRO CYSTOSCOPY, REMV CALCULUS, SIMPLE Left 05/23/2016 CYSTO, REMOVAL OF STENT, FOREIGN BODY OR CALCULUS, SIMPLE (WRVU 2.81) performed by Dougie Husain Jr., MD at [facility] OSC PRO CYSTOURETHROSCOPY, URETER CATHETER Left 05/02/2016 CYSTO, RETROGRADE, URETEROPYELOGRAPHY (WRVU 2.37) performed by Dougie Husain Jr., MD at [facility] OSC PRO CYSTOURETHROSCOPY, URETER CATHETER Left 05/23/2016 CYSTO, RETROGRADE, URETEROPYELOGRAPHY (WRVU 2.37) performed by Dougie Husain Jr., MD at [facility] OSC PRO LAP, SURG, COLECTOMY, W/REMVL TERM ILEUM 10/29/2010 ??LAPAROSCOPIC ASSISTED COLECTOMY, PARTIAL, REM.TERMINAL ILEUM performed by TORITO MOHAN at [facility] MAIN OR PRO PLACEMENT, SETON N/A 02/26/2016 ANAL SETON PLACEMENT (WRVU 3) performed by Apurva Vivas MD at [facility] MAIN OR PRO SURG DIAGNOSTIC EXAM, ANORECTAL N/A 02/26/2016 ANORECTAL EXAM, REQUIRING ANESTHESIA, DIAGNOSTIC (WRVU 1.8) performed by Apurva Vivas MD at [facility] MAIN OR Allergies: Patient has no known allergies. Medications: reviewed in the electronic medical record. Current Outpatient Medications on File Prior to Visit Medication Sig Dispense Refill ciprofloxacin (Cipro) 500 mg tablet Take 1 tablet by mouth 2 times daily for 30 days. 60 tablet 3 metroNIDAZOLE (Flagyl) 500 mg tablet Take 1 tablet by mouth 3 times daily for 30 days. 90 tablet 3 Humira,CF, Pen 40 mg/0.4 mL Pen Injector Kit INJECT 1 PEN UNDER THE SKIN EVERY 7 DAYS 1.6 mL 5 amLODIPine (Norvasc) 5 mg Tablet Take 5 mg by mouth daily. losartan (COZAAR) 100 mg Tablet Take 100 mg by mouth daily. colestipoL (COLESTID) 1 gram Tablet Take 1 tablet by mouth 2 times daily. 60 tablet 3 acetaminophen (TYLENOL) 325 mg Tablet Take 2 tablets by mouth every 4 hours as needed for Pain. 30 tablet 1 alfuzosin (UROXATRAL) 10 mg Tablet Sustained Release 24 hr TAKE ONE TABLET BY MOUTH EVERY DAY 12 multivitamin (THERAGRAN) Tablet Take 1 tablet by mouth daily. esomeprazole (NEXIUM) 20 mg capsule Take 20 mg by mouth every morning (before breakfast). No current facility-administered medications on file prior to visit. Social history: reports that he has never smoked. He has never used smokeless tobacco. He reports current alcohol use of about 1.0 standard drink of alcohol per week. He reports that he does not use drugs. Family medical history: Family History Problem Relation Age of Onset Crohn Disease Other Physical exam: Vitals: Blood pressure 141/77, pulse 93, resp. rate 16, weight 113.1 kg (249 lb 4.8 oz), SpO2 98%. BMI: Body mass index is 33.81 kg/m??. General Appearance: well developed and well nourished Neuro: awake, alert and oriented to person, place and time no acute distress Psych: appropriate mood and affect Eyes: extra ocular muscles intact, pupils equally reactive to light and accomodation ENT: neck supple, no lyphadenopathy noted CV: regular rate and rhythm Resp: non-labored without adventitous sounds on auscultation Lymph: no edema noted Abdomen: soft, non-tender, and not distended, no masses or organomegaly Perineal exam: The patient was examined in the prone mally-knife position with Kellie assisting. There is area of hypopigmentation/scarring in the right lateral and right posterior perianal skin. I am able to expressa small bead of pus in the right lateral perianal skin with gentle pressure. Right posterior perianal skin is scarred over and healed, there are no obvious external skin defects in this area. There is no erythema or fluctuance to suggest a drainable collection. There is some induration surrounding the external skin opening in the right lateral perianal skin. On VLADIMIR, anal tone at rest is normal and squeeze tone is normal. There is normal relaxation with valsalva. There is a mucosal irregularity in the right anterolateral anal canal, possible internal opening of fistula. There are no other palpable masses or mucosal irregularities elsewhere in the anal canal or distal rectum. There is no gross bleeding or tenderness to palpation. Anoscopy: A well lit and well lubricated Hirschman anoscope was inserted into the anal canal and the entire anal canal and distal rectum were inspected. Findings include: Possible internal opening inthe right anterolateral anal canal at the squamocolumnar junction. Ext: no cyanosis Labs: reviewed. Endoscopy: reviewed. Colonoscopy 2021 Findings: The perianal exam findings include a perianal fistula in the R posterolateral quadrant with a seton in place. There was no induration, drainage, erythema. The digital exam was normal without any stenosis noted. Apart from the previously described [id number] widely patent ileocolonic anastomosis in the ascending colon, the colon was normal. At the anastomosis, there was a 5 mm single shallow linear erosion limited to the staple line. It otherwise appeared healthy. Several non-targeted biopsies were taken with a cold forceps from the R and the L colon separately to evaluate for histologic activity. The galen-terminal ileum appeared normal. It was examined for 25 cm from the ileocolonic anastomosis. Impression: - Crohn's ileitis in remission except for a single small linear erosion limited to the anastomosis. - Perianal fistula found on perianal exam. It appeared quiescent without any signs of active inflammation. - The examined portion of the ileum was normal. - Biopsies taken from the colon. Path: reviewed. Surgical pathology 2021 DIAGNOSIS A - Mucosal biopsies; right colon, biopsy (Multiple): Colonic mucosa with focal crypt abscess, negative for dysplasia. B - Mucosal biopsies, left colon, biopsy (Multiple): Colonic mucosa with crypt architecture alteration, negative for dysplasia. Imaging: reviewed. 12/26/2015 8:58 AM 03/26/2016 11:32 AM 10/24/2016 8:18 AM 10/13/2019 4:02 PM 02/17/2024 12:00 PM COREFO Responses Incontinence Scale 2.77 0 2.77 5.55 5.56 Social Impact Scale 30.55 16.66 11.11 19.44 13.89 Frequency Scale 25 12.5 12.5 12.5 25 Stool Releated Aspects 16.66 0 8.33 16.66 25 Medication Scale 25 0 0 8.33 8.33 Total COREFO Score 18.26 6.73 6.73 12.5 12.5 The COREFO questionnaire is a validated questionnaire with 27 questions to assess colorectal functional outcome. Patients are asked to consider the two week period prior before filling out the questionnaire. Category scores range from zero to 100. A total score is calculated from the categories above, also ranging from zero to 100. A higher score represents an increased level of functional disturbance. Impression/Plan: Igor Woodruff is a 48 y.o. male with longstanding history of penetrating Crohn's ileocolitis and perianal disease, underwent ileocolic resection in 2010. Underwent seton placement with Dr. Apurva Vivas in 2015. Seton had fallen out in 2019 and patient was seen by Brent De Los Santos in September 2019 for intermittently symptomatic fistula, underwent seton placement in the clinic. He notes that this particular seton has fallen out at least 1 year ago. For the last couple of months, he has been having increasingly symptomatic right sided fistula including intermittent perianal swelling and drainage. Had evaluation with his gastroenterology team who has started him on antibiotics with ciprofloxacin and Flagyl. He notes that since starting antibiotics, the swelling and discomfort have improved, however, does have ongoing intermittent yellow/puslike discharge. On our exam today, there is a small bead of pus in the right lateral perianal skin with gentle pressure in this area. On internal evaluation, possible mucosal opening in the right anterolateral anal canal at the squamocolumnar junction, possible internal opening of fistula. With his previous history of complex perianal disease and multiple fistulous tracts, would not be unreasonable to consider MRI pelvis at this point in time to clarify the anatomy of his fistulous tracts. He does live in [place], however, is [place] [facility]. I will put in an order today and we will work on getting this scheduled. All in all, I do think he would benefit from repeat exam under anesthesia with additional seton placement. Alternatively, could watch and wait and see if inflammation settles after taking course of antibiotics, however, it is possible that this becomes increasingly symptomatic once he stops taking antibiotics and there is potential for complex fistula formation. He would ultimately like to move forward with placement of additional seton. We did discuss the risks, benefits, and alternatives to EUA with seton placement today. We discussed that this will be very similar to his prior interventionback in 2016. He is having intermittent discharge at this point in time, and would anticipate regular discharge from the seton itself once it is replaced. Per gastroenterology, they will treat with antibiotics until his surgical date. I will touch base with Dr. Vivas in regards to ongoing use of antibiotics prior to procedure or if a short 10-day course will suffice. We did discuss that it will be important for him to maintain biologic treatment after seton placement, whether that be continuing on with Humira versus transitioning to Remicade as was suggested by Dr. Chaney. Will defer medical management to GI. We will set him up for MRI pelvis and EUA with seton placement with Dr. Apurva Vivas in the near future. He is in agreement with this plan. Informed consent was reviewed and signed today. Operative checklist: Surgeon: Apurva Vivas Procedure: EUA with seton placement CPT: 21409; 15333 OR date: tbd Estimated LOS: SDS Operative time: 1 hr Position: prone Location: Main OR or OSC Bowel prep: None Consent: Signed Bárbara Santoro PA-C [facility] Associate Instructor of Surgery Division of Colon and Rectal Surgery [facility] Pager: [phone] 02/17/24 3:43 PM documented in this encounter Plan of Treatment Upcoming Encounters Date Type Department Care Team (Latest Contact Info) Description 04/01/2024 12:35 PM EST Hospital Encounter [place] [address] Apurva Vivas MD [facility] [place] [address] 04/01/2024 12:35 PM EST - 04/01/2024 2:17 PM EST Surgery [place] [address] Apurva Vivas MD [facility] [place] [address] ANORECTAL EXAM, REQUIRING ANESTHESIA, DIAGNOSTIC (WRVU 1.8) 04/26/2024 3:00 PM EST Office [place] [phone] Apurva Vivas MD [facility] [place] [address] Scheduled Procedures Name Priority Associated Diagnoses Date/Ti me ANORECTAL EXAM, REQUIRING ANESTHESIA, DIAGNOSTIC (WRVU 1.8) perianal crohns disease w/fistula 04/01/2024 12:35 PM EST SURGICAL TREATMENT OF ANAL FISTULA COMPLEX OR MULTIPLE W\WO SETON PLACEMENT (WRVU 6.39) perianal crohns disease w/fistula 04/01/2024 12:35 PM EST documented as of this encounter Goals Goal Patient Goal Type Associated Problems Recent Progress Patient-Stated? Author Home Medication Compliance and Understanding Patient Facing Action Plan On track( 017 9:39 PM EDT) Perri Hernandez, [facility] Note: Patient's specific desired goal: Igor [...] of life documented as of this encounter Results * MRI Pelvis Soft Tissue (GI COSMETOLOGIST) wwo Contrast (02/27/2024 12:39 PM EST) [employer] Signature WORKSTATION ID [id number] RAD Anatomical Region Laterality Modality Pelvis Magnetic [...] who have questions please contact the health career development consultant that requested your imaging first. ? Electronically signed by: Dwain Benitez MD, [facility] ([phone]), at 03/01/2024 10:44 AM Narrative 03/01/2024 10:44 AM EST EXAMINATION: MRI PELVIS SOFT TISSUE (GI COSMETOLOGIST) WWO CONTRAST CLINICAL HISTORY: hx fistulizing perianal Crohn's disease - increased pain/swelling. prior seton placement right lateral K50.113, Crohn's disease of large intestine with fistula - K60.30, Anal fistula, unspecified TECHNIQUE: MRI of the pelvis prior to and following the intravenous administration of 23ml Dotarem. COMPARISON: MRI PELVIS SOFT TISSUE (GI COSMETOLOGIST) WWO CONTRAST 01/21/2016 MR Enterography 02/25/2019 FINDINGS: [...] 03/01/2024 EXAMINATION: MRI PELVIS SOFT TISSUE (GI COSMETOLOGIST) WWO CONTRAST CLINICAL HISTORY: hx fistulizing perianal Crohn's disease - increased pain/swelling. prior seton placement right lateral K50.113, Crohn's disease of large intestine with fistula - K60.30, Analfistula, unspecified TECHNIQUE: MRI of the pelvis prior to and following the intravenous administration of 23ml Dotarem. COMPARISON: MRI PELVIS SOFT TISSUE (GI COSMETOLOGIST) WWO CONTRAST 01/21/2016 MR Enterography 02/25/2019 FINDINGS: [...] patients who have questions please contactthe health career development consultant that requested your imaging first. Electronically signed by: Dwain Benitez MD, [facility]([phone]), at 03/01/2024 10:44 AM Apurva Vivas MD IMG MRI ORDERABLES documented in this encounter Visit Diagnoses Diagnosis Crohn's disease of perianal region with fistula Crohn's disease of perianal region with fistula documented in this encounter Care Teams Green Chain Worker Relationship Specialty Start Date End Date Irwin Gonsalez DO [address] [place] [address] PCP - General 05/01/11 documented as of this encounter
--- OUTSIDE RECORDS SUMMARY | 2024-03-10 01:56 | XMS_ITS | Encounter Summary ---
Author Organization [facility] [place] [address] Care Team Providers Care Assistant Tennis Professional Name Role Phone Irwin Gonsalez DO Primary Care Provider Reason for Visit * Reason Comments Medication Refill Encounter Details Date Type Department Care Team (Late st Contact Info) Description 12/09/2023 [place]ill [place] [phone] Ramonita Pandey MD [facility] [place] [address] Crohn's disease of ileum with other complication [...] PM EST Hospital Encounter [place] [phone] Apurva Vivas MD [facility] [place] [address] 04/01/2024 12:35 PM EST - 04/01/2024 2:17 PM EST Surgery [place] [address] Apurva Vivas MD [facility] [place] [address] ANORECTAL EXAM, REQUIRING ANESTHESIA, DIAGNOSTIC (WRVU 1.8) 04/26/2024 3:00 PM EST Office [place] [phone] Apurva Vivas MD [facility] [place] [address] Scheduled Procedures Name Priority Associated Diagnoses Date/Ti me ANORECTAL EXAM, REQUIRING ANESTHESIA, DIAGNOSTIC (WRVU 1.8) perianal crohns disease w/fistula 04/01/2024 12:35 PM EST SURGICAL TREATMENT OF ANAL FISTULA COMPLEX OR MULTIPLE W\WO SETON PLACEMENT (WRVU 6.39) perianal crohns disease w/fistula 04/01/2024 12:35 PM EST documented as of this encounter Goals Goal Patient Goal Type Associated Problems Recent Progress Patient-Stated? Author [facility] Medication Compliance and Understanding Patient Facing Action Plan On track( 017 9:39 PM EDT) Perri Hernandez, [facility] Note: Patient's specific desired goal: [...] complication documented in this encounter Care Teams Assistant Tennis Professional Relationship Specialty Start Date End Date Irwin Gonsalez DO [address] [place] [address] PCP - General 05/01/11 documented as of this encounter
--- OUTSIDE RECORDS SUMMARY | 2024-03-10 01:56 | XMS_ITS | Encounter Summary ---
[place] [address] Care Team Providers Care Claim Auditor Name Role Phone Irwin Gonsalez DO Primary Care Provider [phone] Encounter Details Date Type Department Care Team (Latest Contact Info) Description 02/17/2024 Travel Social History Tobacco Use Types Packs/Day [...] PM EST Hospital Encounter [place] [address] Apurva Vivas MD [facility] [place] [place] [address] 04/01/2024 12:35 PM EST - 04/01/2024 2:17 PM EST Surgery [place] [phone] Apurva Vivas MD [facility] [place] [address] ANORECTAL EXAM, REQUIRING ANESTHESIA, DIAGNOSTIC (WRVU 1.8) 04/26/2024 3:00 PM EST Office Visit [facility] at [facility] [place] [address] Apurva Vivas MD [facility] [place] [address] Scheduled Procedures Name Priority Associated Diagnoses Date/Ti nv ANORECTAL EXAM, REQUIRING ANESTHESIA, DIAGNOSTIC (WRVU 1.8) [...] 017 9:39 PM EDT) No Perri Sousa, [facility] Note: Patient's specific desired goal: Igor [...] on filedocumented in this encounter Care Teams Claim Auditor Relationship Specialty Start Date End Date Irwin Gonsalez DO [address] [place] [address] PCP - General 05/01/11 documented as of this encounter
--- OUTSIDE RECORDS SUMMARY | 2024-03-10 01:56 | XMS_ITS | Encounter Summary ---
Author Organization [facility] [place] [address] Care Team Providers Care Escrow Officer Name Role Phone Irwin Gonsalez DO Primary Care Provider Reason for Referral * Diagnostic Test (Routine) - Closed Specialty Diagnoses / Procedures Referred By Contac t Referred To Contact Radiology Diagnoses Crohn's disease of perianal region with fistula Procedures MRI Pelvis Soft Tissue (GI LIQUIFIED NATURAL GAS TECHNICIAN) wwo Contrast Bárbara Santoro PA [facility] [address] [place] [address] Referral ID Status Reason Start Date Expiration Date V isits Requested Visits Authorized [id number] Closed Specialty Service Requested 02/17/2024 08/17/2025 1 1 Reason for Visit * Diagnostic Test (Routine) - Closed Specialty Diagnoses / Procedures Referred By Contac t Referred To Contact Radiology Diagnoses Crohn's disease of perianal region with fistula Procedures MRI Pelvis Soft Tissue (GI LIQUIFIED NATURAL GAS TECHNICIAN) wwo Contrast Bárbara Santoro PA [facility] [address] [facility] [place] [address] Referral ID Status Reason Start Date Expiration Date V isits Requested Visits Authorized [id number] Closed Specialty Service Requested 02/17/2024 08/17/2025 1 1 Encounter Details Date Type Department Care Team (Latest Contact Info) Description 02/27/2024 10:18 AM EST - 02/27/2024 11:59 PM EST Hospital [place] [address] Apurva Vivas MD [facility] [place] [address] Crohn's disease of perianal region with fistula Discharge Disposition: Home Social History Tobacco Use Types Packs/Day Years Used Date Smoking Tobacco: Never Smokeless Tobacco: Never Alcohol Use Standard Drinks/Week Comments Yes 1 (1 standard drink = 0.6 oz pur e alcohol) Sex and Gender Information Value Date Recorded Sex Assigned at Male 06/08/2023 4:49 PM EDT Gender Identity Not on file Sexual Orientation Not on file documented as of this encounter Medications at Time of Discharge Medication Sig Dispensed Refills Start Date End Date ADWOA Clay, Pen 40 mg/0.4 mL Pen Injector KitIndications:Crohn's disease of ileum with other complication INJECT 1 PEN UNDER THE SKIN EVERY 7 DAYS 1.6 mL 5 12/10/2023 amLODIPine (Norvasc) 5 mg Tablet Take 5 mg by mouth daily. 08/11/2021 losartan (COZAAR) 100 mg Tablet Take 100 mg by mouth daily. 10/22/2021 colestipoL (COLESTID) 1 gram Tablet Take 1 tablet by mouth 2 times daily. 60 tablet 3 05/23/2021 acetaminophen (TYLENOL) 325 mg Tablet Take 2 tablets by mouth every 4 hours as needed for Pain. 30 tablet 1 05/23/2016 alfuzosin (UROXATRAL) 10 mg Tablet Sustained Release 24 hr TAKE ONE TABLET BY MOUTH EVERY DAY 12 11/22/2015 multivitamin (THERAGRAN) Tablet Take 1 tablet by mouth daily. esomeprazole (NEXIUM) 20 mg capsule Take 20 mg by mouth every morning (before breakfast). ciprofloxacin (Cipro) 500 mg tablet Take 1 tablet by mouth 2 times daily for 30 days. 60 tablet 3 02/08/2024 03/09/2024 metroNIDAZOLE (Flagyl) 500 mg tablet Take 1 tablet by mouth 3 times daily for 30 days. 90 tablet 3 02/08/2024 03/09/2024 documented as of this encounter Plan of Treatment Upcoming Encounters Date Type Department Care Team (Latest Contact Info) Description 04/01/2024 12:35 PM EST Hospital Encounter [place] [address] Apurva Vivas MD [facility] [place] [address] 04/01/2024 12:35 PM EST - 04/01/2024 2:17 PM EST [place] [phone] Apurva Vivas MD [facility] [place] [address] ANORECTAL EXAM, REQUIRING ANESTHESIA, DIAGNOSTIC (WRVU 1.8) 04/26/2024 3:00 PM EST Office Visit [place] [phone] Apurav Vivas MD [facility] [place] [address] Scheduled Procedures Name Priority Associated Diagnoses Date/Ti me ANORECTAL EXAM, REQUIRING ANESTHESIA, DIAGNOSTIC (WRVU 1.8) perianal crohns disease w/fistula 04/01/2024 12:35 PM EST SURGICAL TREATMENT OF ANAL FISTULA COMPLEX OR MULTIPLE W\WO SETON PLACEMENT (WRVU 6.39) perianal crohns disease w/fistula 04/01/2024 12:35 PM EST documented as of this encounter Goals Goal Patient Goal Type Associated Problems Recent Progress Patient-Stated? Author [facility] Medication Compliance and Understanding Patient Facing Action Plan On track( 017 9:39 PM EDT) Perri Hernandez, [facility] Note: Patient's specific desired goal: [...] of life documented as of this encounter Procedures Procedure Name Priority Date/Time Associated Diagnosis Comments MRI PELVIS SOFT TISSUE (GI LIQUIFIED NATURAL GAS TECHNICIAN) WWO CONTRAST Routine 02/27/2024 12:39 PM EST Crohn's disease of perianal region with fistula documented in this encounter Results * MRI Pelvis Soft Tissue (GI LIQUIFIED NATURAL GAS TECHNICIAN) wwo Contrast (02/27/2024 12:39 PM EST) [employer] WORKSTATION ID [id number] RAD Anatomical Region Laterality Modality Pelvis Magnetic [...] who have questions please contact the health day care provider that requested your imaging first. ? Electronically signed by: Dwain Benitez MD, [facility] ([phone]), at 03/01/2024 10:44 AM Narrative 03/01/2024 10:44 AM EST EXAMINATION: MRI PELVIS SOFT TISSUE (GI LIQUIFIED NATURAL GAS TECHNICIAN) WWO CONTRAST CLINICAL HISTORY: hx fistulizing perianal Crohn's disease - increased pain/swelling. prior seton placement right lateral K50.113, Crohn's disease of large intestine with fistula - K60.30, Anal fistula, unspecified TECHNIQUE: MRI of the pelvis prior to and following the intravenous administration of 23ml Dotarem. COMPARISON: MRI PELVIS SOFT TISSUE (GI LIQUIFIED NATURAL GAS TECHNICIAN) WWO CONTRAST 01/21/2016 MR Enterography 02/25/2019 FINDINGS: [...] craniocaudal, AP). ??The fistula was present in 2015; the gluteal abscess is new. Ischioanal fossa: Normal signal; no fluid collection. Peritoneum: No free fluid or loculated collection. Lymph nodes: No adenopathy. GI tract: No bowel wall thickening or dilatation. No adjacent inflammation. Reproductive structures: Mildly enlarged prostate. Normal seminal vesicles. Marrow signal: Normal. Procedure Note Dwain Benitez MD - 03/01/2024 EXAMINATION: MRI PELVIS SOFT TISSUE (GI LIQUIFIED NATURAL GAS TECHNICIAN) WWO CONTRAST CLINICAL HISTORY: hx fistulizing perianal Crohn's disease - increased pain/swelling. prior seton placement right lateral K50.113, Crohn's disease of large intestine with fistula - K60.30, Analfistula, unspecified TECHNIQUE: MRI of the pelvis prior to and following the intravenous administration of 23ml Dotarem. COMPARISON: MRI PELVIS SOFT TISSUE (GI LIQUIFIED NATURAL GAS TECHNICIAN) WWO CONTRAST 01/21/2016 MR Enterography 02/25/2019 FINDINGS: [...] (transverse, craniocaudal,AP). The fistula was present in 2015; the gluteal abscess is new. Ischioanal fossa: [...] patients who have questions please contactthe health day care provider that requested your imaging first. Electronically signed by: Dwain Benitez MD, [facility]([phone]), at 03/01/2024 10:44 AM Apurva Vivas MD IMG MRI ORDERABLES documented in this encounter Visit Diagnoses Diagnosis Crohn's disease of perianal region with fistula documented in this encounter Administered Medications Inactive Administered Medications - up to 3 most recent administrations Medication Order MAR Action Action Date Dose Rate Site gadoterate meglumine (Dotarem) (0.5 mMol/mL) injection solution 0-100 mL 0-100 mL, Intravenous, ONCE PRN, 1 dose, Starting on 02/27/24 at 1228, Until 02/27/24 at 1232, Per Protocol, Radiology Contrast, Routine Given 02/27/2024 12:32 PM EST 23 mLs documented in this encounter Care Teams Escrow Officer Relationship Specialty Start Date End Date Irwin Gonsalez DO [address] [place] [address] [address] [facility] [address] [place] [address] PCP - General 05/01/11 documented as of this encounter
--- OUTSIDE RECORDS SUMMARY | 2024-03-10 01:56 | XMS_ITS | Encounter Summary ---
[place] [address] Care Team Providers Care Sound Effects Technician Name Role Phone Irwin Gonsalez DO Primary Care Provider [phone] Encounter Details Date Type Department Care Team (Latest Contact Info) Description 02/27/2024 Travel Social History Tobacco Use Types Packs/Day [...] PM EST Hospital Encounter [place] [address] Apurva Vivas MD [facility] [place] [address] 04/01/2024 12:35 PM EST - 04/01/2024 2:17 PM EST Surgery [place] [phone] Apurva Vivas MD [facility] [place] [address] ANORECTAL EXAM, REQUIRING ANESTHESIA, DIAGNOSTIC (WRVU 1.8) 04/26/2024 3:00 PM EST Office [facility] [place] [address] Apurva Vivas MD [facility] [place] [address] Scheduled Procedures Name Priority Associated Diagnoses Date/Ti ne ANORECTAL EXAM, REQUIRING ANESTHESIA, DIAGNOSTIC (WRVU 1.8) [...] 017 9:39 PM EDT) No Perri Sousa, [facility] Note: Patient's specific desired goal: Igor [...] on filedocumented in this encounter Care Teams Sound Effects Technician Relationship Specialty Start Date End Date Irwin Gonsalez DO [address] [place] [address] PCP - General 05/01/11 documented as of this encounter
--- OUTSIDE RECORDS SUMMARY | 2024-03-10 01:56 | XMS_ITS | Encounter Summary ---
Author Organization [facility] [place] [address] Care Team Providers Care Seasonal Recruiter Name Role Phone Irwin Gonsalez DO Primary Care Provider [phone] Encounter Details Date Type Department Care Team (Latest Contact Info) Description 02/08/2024 4:40 PM EST TH Visit (TeleHealth) [place] [phone] Ramonita Pandey MD [facility] [place] [address] Crohn's disease of ileum with other complication [...] as of this encounter Progress Notes * Kathleen Chaney MD - 02/08/2024 4:40 PM EST [facility] IBD PROGRAM ESTABLISHED PATIENT VISIT Patient Active Problem List Diagnosis Crohn's ileitis [...] MRE 02/2019 - normal. 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 Thinks used to have just 1 though 2019 report notes multiple tracts - now has multiple he thinks, inflamed and drainage - No fevers, chills, night sweats. No nausea, vomiting. No abd pain. BMS 3-5 a day, his baseline. No blood or mucus. - Weight has been stable - No missed doses, taking humira as scheduled - Drainage from bottom is clear to yellow. Perhaps like pus. Wonders about replacing setons. Please see Qorus questionnaire results below for further details re current symptoms. No questionnaires on file. IBD Qorus Provider Questionnaire Did you and [...] steroid-free mucosal healing with your patient today? Not relevant for today's visit When do you next plan to assess [...] any treatment changestoday? Other specified treatment change(s): Adding new therapy and Referring for surgery What is your Provider Global Assessment (PGA) for this patient today? Mild Do you believe your patient is at high risk of going to the ED for their IBD within the next month?No Review of systems: 14-point review of systems reviewed and negative except as above. Social History Social History Narrative Not on file PHYSICAL EXAMINATION: Deferred iso telehealth visit Laboratory studies, imaging, and procedures (my review of prior records): Lab Results Component Value Date WBC 6.5 10/13/2019 RBC 5.20 10/13/2019 HGB 15.2 10/13/2019 HCT 44.4 10/13/2019 MCV 85.4 10/13/2019 MCH 29.2 10/13/2019 MCHC 34.2 10/13/2019 PLATELET 263 10/13/2019 RDWCV 11.8 10/13/2019 Lab Results Component Value Date ALT 31 10/13/2019 AST 22 10/13/2019 ALKPHOS 54 10/13/2019 BILITOT 0.8 10/13/2019 Lab Results Component Value Date CRP 0.3 10/13/2019 Assessment and Plan: Mr. Woodruff is a 48 y.o. patient with Crohn's ileitis s/p ileocolic resection 2010 w/perianal involvement on Humira qweekly who had been doing quite well until last few weeks with new drainage frommultiple areas on bottom. Has not had any lapses in Humira, no other changes, and had IUS which appeared normal October of this yet. Has not had perianal issues for several years at this point. We reviewed a number of things, including course of abx now for perianal drainage. Will plan to continue this until definitely drained, and/or on Remicade. Will reach out to Colorectal for follow up and to consider setons. Will alsoconsider MR pelvis. In the interim, I am skeptical that Humira will work for him retirement and wonder if just not reaching appropriate levels. Discussed the plan to transition to Remicade at 10mg/kg with goal levels of 15- 20. Labs from Nov reassuring, but will need Hep B and quant gold updated. Heis open to this plan and we will plan for close f/u in ~6-8 weeks. Plan: - Start cipro flagyl for perianal drainage - Will reach out to Colorectal - Considering MR pelvis - Hep B, quant gold prior to new start Remicade - Remicade 10mg/kg for perianal disease. Will check trough at week 6, week 14 (goal trough 15-20) - F/u in 6-8 weeks with , Thi, or Dr. Pandey Patient seen and discussed with Dr. Dannie Chaney MD PGY6 Gastroenterology, Advanced IBD Fellow * Ramonita Pandey MD - 02/08/2024 4:40 PM EST The patient was seen and examined by Dr. Chaney. I have reviewed the history, physical, assessmentand plan, and I agree with them as documented. Angelo Pandey MD Director, Inflammatory Bowel Diseases Program [facility], [facility] Manifest [employer]ktube wrapper and Medical Education [facility] [employer] [facility] documented in this encounter Miscellaneous Notes * Addendum Note - Kathleen Chaney MD - 02/08/2024 4:40 PM ESTAddended by: KATHLEEN CHANEY on: 02/08/2024 05:09 PM Modules accepted: Orders documented in this encounter Plan of Treatment Upcoming Encounters Date Type Department Care Team (Latest Contact Info) Description 04/01/2024 12:35 PM EST Hospital Encounter [place] [address] Apurva Vivas MD [facility] [place] [address] 04/01/2024 12:35 PM EST - 04/01/2024 2:17 PM EST Surgery [place] [phone] Apurva Vivas MD [facility] [place] [address] ANORECTAL EXAM, REQUIRING ANESTHESIA, DIAGNOSTIC (WRVU 1.8) 04/26/2024 3:00 PM EST Office [place] [phone] Apurva Vivas MD [facility] [place] [address] Scheduled Orders Name Type Priority Associated Diagnoses Orde r Schedule Hepatitis B Surface Antigen Lab Routine Crohn's disease of ileum with other complication Expected: 02/08/2024, Expires: 08/09/2024 Hepatitis B Surface Antibody Lab Routine Crohn's disease of ileum with other complication Expected: 02/08/2024, Expires: 08/09/2024 Hepatitis B Core Antibody, Total Lab Routine Crohn's disease of ileum with other complication Expected: 02/08/2024, Expires: 08/09/2024 QuantiFERON-TB Gold Lab Routine Crohn's disease of ileum with other complication Expected: 02/08/2024, Expires: 08/09/2024 Infliximab Level Lab Routine Crohn's disease of ileum with other complication Expected: 03/29/2024, Expires: 05/10/2024 Infliximab Level Lab Routine Crohn's disease of ileum with other complication Expected: 05/31/2024, Expires: 11/30/2024 Scheduled Procedures Name Priority Associated Diagnoses Date/Ti [...] track( 017 9:39 PM EDT) Perri Hernandez, [facility] Note: Patient's specific desired goal: [...] Procedure Name Priority Date/Time Associated Diagnosis Comments ORDS - PROVIDER CARE SCAN 02/23/2024 12:00 AM EST documented in this encounter Results * Scan Doc: Ords - Provider Care (02/23/2024 12:00 AM EST) Narrative 02/23/2024 12:00 AM EST Ordered by an unspecified provider. Scanning Provider MEDIA MGR SCAN EXT O RDR/RSLT documented in this encounter Visit Diagnoses Diagnosis Crohn's disease of ileum with other complication documented in this encounter Care Teams Seasonal Recruiter Relationship Specialty Start Date End Date Irwin Gonsalez DO [address] [place] [address] PCP - General 05/01/11 documented as of this encounter
--- OUTSIDE RECORDS SUMMARY | 2024-03-10 01:56 | XMS_ITS | Encounter Summary ---
[place] [address] Care Team Providers Care Energy Conservation Technician Name Role Phone Irwin Gonsalez DO Primary Care Provider [phone] Encounter Details Date Type Department Care Team (Late st Contact Info) Description 12/11/2023 Specialty [place] [address] Liv Alba CPHT Social History Tobacco Use Types Packs/Day Years [...] as of this encounter Progress Notes * Liv Alba CPHT - 12/11/2023 11:38 AM EDT Updating Specialty Pharmacy [facility] enrollment. documented in this encounter Plan of Treatment Upcoming Encounters Date Type Department Care Team (Latest Contact Info) Description 04/01/2024 12:35 PM [facility] Hospital Encounter [place] [address] Apurva Vivas MD [facility] [place] [address] 04/01/2024 12:35 PM EST - 04/01/2024 2:17 PM EST Surgery [place] [phone] Apurva Vivas MD [facility] [place] [address] ANORECTAL EXAM, REQUIRING ANESTHESIA, DIAGNOSTIC (WRVU 1.8) 04/26/2024 3:00 PM EST Office [place] [phone] Apurva Vivas MD [facility] [place] [address] Scheduled Procedures Name Priority Associated Diagnoses Date/Ti va ANORECTAL EXAM, REQUIRING ANESTHESIA, DIAGNOSTIC (WRVU 1.8) [...] track( 017 9:39 PM EDT) Perri Hernandez, [facility] Note: Patient's specific desired goal: [...] on filedocumented in this encounter Care Teams Energy Conservation Technician Relationship Specialty Start Date End Date Irwin Gonsalez DO [address] [place] [address] PCP - General 05/01/11 documented as of this encounter
--- OUTSIDE RECORDS SUMMARY | 2024-03-10 01:56 | XMS_ITS | Encounter Summary ---
Author Organization [facility] [place] [address] Care Team Providers Care Pattern Grader Name Role Phone Irwin Gonsalez DO Primary Care Provider Reason for Visit * Reason Onset Date Comments Appointment 04/21/2023 MRI Encounter Details Date Type Department Care Team (Late st Contact Info) Description 04/21/2023 [place] [phone] Torres Kamara, RN Appointment (MRI) Social History Tobacco Use Types Packs/Day Years [...] encounter Miscellaneous Notes * Telephone Encounter - Torres Kamara, RN - 04/21/2023 2:29 PM EST Call to schedule MRI. No answer, voice mail message left asking pt to call [phone] to schedulean appointment. documented in this encounter Plan of Treatment Upcoming Encounters Date Type Department Care Team (Latest Contact Info) Description 04/01/2024 12:35 PM EST Hospital Encounter [place] [address] Apurva Vivas MD [facility] [place] [address] 04/01/2024 12:35 PM EST - 04/01/2024 2:17 PM EST Surgery [place] [phone] Apurva Vivas MD [facility] [address] [place] [address] ANORECTAL EXAM, REQUIRING ANESTHESIA, DIAGNOSTIC (WRVU 1.8) 04/26/2024 3:00 PM EST Office [place] [phone] Apurva Vivas MD [facility] [address] [place] [address] Scheduled Procedures Name Priority Associated Diagnoses Date/Ti [...] 017 9:39 PM EDT) No Perri Sousa, [facility] Note: Patient's specific desired goal: [...] on filedocumented in this encounter Care Teams Pattern Grader Relationship Specialty Start Date End Date Irwin Gonsalez DO [address] [place] [address] PCP - General 05/01/11 documented as of this encounter
--- OUTSIDE RECORDS SUMMARY | 2024-03-10 01:56 | XMS_ITS | Encounter Summary ---
Author Organization [facility] Address [facility] [place] [address] Care Team Providers Care Hairspring Setter Name Role Phone Irwin Gonsalez DO Primary Care Provider Encounter Details Date Type Department Care Team (Late st Contact Info) Description 12/10/2023 Orders [place] [phone] Ramonita Pandey MD [facility] [place] [address] Crohn's disease of ileum with other complication [...] PM EST Hospital Encounter [place] [phone] Apurva Vivas MD [facility] GENERAL SURGERY [place], [place] [phone] 04/01/2024 12:35 PM EST - 04/01/2024 2:17 PM EST Surgery [place] [phone] Apurva Vivas MD [facility] [place] [address] ANORECTAL EXAM, REQUIRING ANESTHESIA, DIAGNOSTIC (WRVU 1.8) 04/26/2024 3:00 PM EST Office [place] [phone] Apurva Vivas MD [facility] [place] [address] Scheduled Orders Name Type Priority Associated Diagnoses Orde r Schedule CBC (with Diff) Lab Routine Crohn's disease of ileum with other complication Expected: 12/10/2023 (Approximate), Expires: 12/09/2024 CRP, acute inflammation Lab Routine Crohn's disease of ileum with other complication Expected: 12/10/2023 (Approximate), Expires: 12/09/2024 Hepatic Function Panel Lab Routine Crohn's disease of ileum with other complication Expected: 12/10/2023 (Approximate), Expires: 12/09/2024 Scheduled Procedures Name Priority Associated Diagnoses Date/Ti me ANORECTAL EXAM, REQUIRING ANESTHESIA, DIAGNOSTIC (WRVU 1.8) perianal crohns disease w/fistula 04/01/2024 12:35 PM EST SURGICAL TREATMENT OF ANAL FISTULA COMPLEX OR MULTIPLE W\WO SETON PLACEMENT (WRVU 6.39) perianal crohns disease w/fistula 04/01/2024 12:35 PM EST documented as of this encounter Goals Goal Patient Goal Type Associated Problems Recent Progress Patient-Stated? Author [facility] [place] Medication Compliance and Understanding Patient Facing Action Plan On track( 017 9:39 PM EDT) Perri Hernandez, [facility] Note: Patient's specific desired goal: Igor would [...] complication documented in this encounter Care Teams Hairspring Setter Relationship Specialty Start Date End Date Irwin Gonsalez DO [address] [place] [address] [address] [place] [address] PCP - General 05/01/11 documented as of this encounter
--- OUTSIDE RECORDS SUMMARY | 2024-03-10 01:56 | XMS_ITS | Encounter Summary ---
Author Organization [place] [address] Care Team Providers Care Psychology Instructor Name Role Phone Irwin Gonsalez DO Primary Care Provider Encounter Details Date Type Department Care Team (Late st Contact Info) Description 04/29/2023 [place] [address] Vignesh Thomas RN Social History Tobacco Use Types Packs/Day [...] as of this encounter Progress Notes * Vignesh Thomas, RN - 04/29/2023 3:40 PM EST Pt has an open order for MRE ordered 12/08/[address] Pandey, per provider, Can cancel. Order was cancelled. documented in this encounter Plan of Treatment Upcoming Encounters Date Type Department Care Team (Latest Contact Info) Description 04/01/2024 12:35 PM EST Hospital Encounter Main Operating [place] [address] Apurva Vivas MD [facility] [place] [address] 04/01/2024 12:35 PM EST - 04/01/2024 2:17 PM EST [place] [address] Apurva Vivas MD [facility] [place] [address] ANORECTAL EXAM, REQUIRING ANESTHESIA, DIAGNOSTIC (WRVU 1.8) 04/26/2024 3:00 PM EST Office Visit [place] [address] Apurva Vivas MD [facility] [place] [address] Scheduled Procedures Name Priority Associated Diagnoses Date/Ti [...] track( 017 9:39 PM EDT) Perri Hernandez, [facility] Note: Patient's specific desired goal: Igor [...] on filedocumented in this encounter Care Teams Psychology Instructor Relationship Specialty Start Date End Date Irwin Gonsalez DO [address] [place] [address] PCP - General 05/01/11 documented as of this encounter
--- OUTSIDE RECORDS SUMMARY | 2024-03-10 01:56 | XMS_ITS | Encounter Summary ---
Author Organization [facility] [place] [address] Care Team Providers Care Scientific Research Associate Name Role Phone Irwin Gonsalez DO Primary Care Provider Reason for Visit * Reason Comments Medication Refill Encounter Details Date Type Department Care Team (Late st Contact Info) Description 04/29/2023 Refill [place] [address] Ramonita Pandey MD [facility] [place] [address] Crohn's disease of ileum with other complication [...] PM EST Hospital Encounter [place] [phone] Apurva Vivas MD [facility] [place] [address] 04/01/2024 12:35 PM EST - 04/01/2024 2:17 PM EST Surgery [place] [address] Apurva Vivas MD [facility] [place] [address] ANORECTAL EXAM, REQUIRING ANESTHESIA, DIAGNOSTIC (WRVU 1.8) 04/26/2024 3:00 PM EST Office [place] [phone] Apurva Vivas MD [facility] [place] [address] Scheduled Procedures Name Priority Associated Diagnoses Date/Ti me ANORECTAL EXAM, REQUIRING ANESTHESIA, DIAGNOSTIC (WRVU 1.8) perianal crohns disease w/fistula 04/01/2024 12:35 PM EST SURGICAL TREATMENT OF ANAL FISTULA COMPLEX OR MULTIPLE W\WO SETON PLACEMENT (WRVU 6.39) perianal crohns disease w/fistula 04/01/2024 12:35 PM EST documented as of this encounter Goals Goal Patient Goal Type Associated Problems Recent Progress Patient-Stated? Author [facility] Medication Compliance and Understanding Patient Facing Action Plan On track( 017 9:39 PM EDT) Perri Hernandez, [facility] Note: Patient's specific desired goal: Igor would [...] complication documented in this encounter Care Teams Scientific Research Associate Relationship Specialty Start Date End Date Irwin Gonsalez DO [address] [place] [address] PCP - General 05/01/11 documented as of this encounter
--- OUTSIDE RECORDS SUMMARY | 2024-03-10 01:56 | XMS_ITS | Encounter Summary ---
[place] [address] Care Team Providers Care Co Founder And Director Name Role Phone Irwin Gonsalez DO Primary Care Provider [phone] Encounter Details Date Type Department Care Team (Late st Contact Info) Description 09/10/2023 Telephone [place] [phone] Kiersten Rodriges Social History Tobacco Use Types Packs/Day Years [...] encounter Miscellaneous Notes * Telephone Encounter - Kiersten Rodriges - 09/10/2023 12:27 PM EDT Initial Call for RISE Study Study Title: A Remote study of Insomnia treatment in Crohn's disease Conductor Orchestra (PI): Leda Reyes, PhD Study Number: [id number] Objective of visit: Kiersten Macias, research coordinator, left a voice message for Igor Woodruff over the phone regarding protocol Study [id number]. I informed the patient I was calling with regardto their referral for the RISE trial which they may be eligible. Assessment/Outcome: I provided a call-back number and email for Igor Woodruff to contact should they have interestin the study. Plan: Determine eligibility of the patient for the study. After 3 contacts we will consider this participant unresponsive. Further calls will be logged in study files. documented in this encounter Plan of Treatment Upcoming Encounters Date Type Department Care Team (Latest Contact Info) Description 04/01/2024 12:35 PM EST Hospital Encounter [place] [address] Apurva Vivas MD [facility] [address] 04/01/2024 12:35 PM EST - 04/01/2024 2:17 PM EST [place] [address] Apurva Vivas MD [facility] [place] [address] ANORECTAL EXAM, REQUIRING ANESTHESIA, DIAGNOSTIC (WRVU 1.8) 04/26/2024 3:00 PM EST Office [place] [address] Apurva Vivas MD [facility] [address] Scheduled Procedures Name Priority Associated Diagnoses Date/Ti me ANORECTAL EXAM, REQUIRING ANESTHESIA, DIAGNOSTIC (WRVU 1.8) perianal crohns disease w/fistula 04/01/2024 12:35 PM EST SURGICAL TREATMENT OF ANAL FISTULA COMPLEX OR MULTIPLE W\WO SETON PLACEMENT (WRVU 6.39) perianal crohns disease w/fistula 04/01/2024 12:35 PM EST documented as of this encounter Goals Goal Patient Goal Type Associated Problems Recent Progress Patient-Stated? Author [facility] Medication Compliance and Understanding Patient Facing Action Plan On track( 017 9:39 PM EDT) No Perri Sousa, [facility] Note: Patient's specific desired goal: Igor [...] on filedocumented in this encounter Care Teams Co Founder And Director Relationship Specialty Start Date End Date Irwin Gonsalez DO [address] [place] [address] [address] [facility] [address] [place] [address] PCP - General 05/01/11 documented as of this encounter
--- OUTSIDE RECORDS SUMMARY | 2024-03-10 01:56 | XMS_ITS | Encounter Summary ---
[place] [address] Care Team Providers Care Car Supplier Name Role Phone Irwin Gonsalez DO Primary Care Provider Encounter Details Date Type Department Care Team (Late st Contact Info) Description 02/25/2024 Telephone [place] [phone] Sabas Gonzales RN Social History Tobacco Use Types Packs/Day [...] Telephone Encounter - Sabas Gonzales RN - 02/25/2024 2:38 PM EST Adal Costa calls. He would like a visit with either Dr. Pandey or Thi Salgado APRN to discuss Humira versus Remicade further and timing of possible switch. Scheduled him for a telehealth visit next week documented in this encounter Plan of Treatment Upcoming Encounters Date Type Department Care Team (Latest Contact Info) Description 04/01/2024 12:35 PM EST Hospital Encounter [place] [address] Apurva Vivas MD [facility] [place] [address] 04/01/2024 12:35 PM EST - 04/01/2024 2:17 PM EST Surgery [place] [phone] Apurva Vivas MD [facility] [place] [address] ANORECTAL EXAM, REQUIRING ANESTHESIA, DIAGNOSTIC (WRVU 1.8) 04/26/2024 3:00 PM EST Office [place] [address]1000 Apurva Vivas MD [facility] [place] [address] Scheduled Procedures Name Priority Associated Diagnoses Date/Ti [...] 017 9:39 PM EDT) No Perri Sousa, [facility] Note: Patient's specific desired goal: Igor would [...] on filedocumented in this encounter Care Teams Car Supplier Relationship Specialty Start Date End Date Irwin Gonsalez DO [address] [place] [address] PCP - General 05/01/11 documented as of this encounter
--- OUTSIDE RECORDS SUMMARY | 2024-03-10 01:56 | XMS_ITS | Encounter Summary ---
Author [facility] [place] [address] Care Team Providers Care Senior Software Engineer Analytics Name Role Phone Irwin Gonsalez DO Primary Care Provider Encounter Details Date Type Department Care Team (Latest Contact Info) Description 11/09/2023 8:30 AM EDT Procedure [place] [address] Bharathi Rosas MD [facility] [place] [address] Crohn's disease of ileum with other complication [...] as of this encounter Progress Notes * Bharathi Rosas MD - 11/09/2023 8:30 AM EDT Point of Care Intestinal Ultrasound 11/09/23 Indication: Crohn's ileocolitis Alcohol And Drug Counselor: Bharathi Rosas MD Verbal consent to perform intestinal ultrasound was discussed and received from the patient. Limitations of the study, discussed below, were discussed with the patient. Technique: Greyscale/color Doppler graded compression ultrasound evaluation of the 4 abdominal quadrants was done. Static images and / or CHRIS clips of the bowel regions were saved. Visualization of the colon and small intestine began in the left lower quadrant of the abdomen after identification ofthe iliac vessels and psoas muscle. The bowel segments visualized, and their subsequent findings, are documented below. Findings: Bowel segment(s) visualized: Sigmoid colon, Descending Colon, Transverse colon, Ascending colon/Cecum, Galen-terminal ileum Bowel wall thickened (Y/N): Normal bowel wall thickness in all measured regions Maximum Bowel wall thickness (mm): Sigmoid 2.5 mm Descending 1.7 mm Transverse 2.1 mm Ascending 2.1 mm Galen-terminal ileum 2.3 mm Bowel Wall Perfusion (Normal/Enhanced): Normal in all measured regions Hyperemia by Color Doppler Signal if enhanced (Modified IBUS 0-III): 0 in all measured regions Loss of bowel wall stratification (Y/N): None in all measured regions Presence of inflammatory mesenteric fat (Y/N): None in all measured regions Lymphadenopathy (Y/N): None appreciated Complications (Abscess/Stricture/Fistula): None Free fluid (Y/N): No Procedure length of time (minutes): 20 Previous POCIUS (Y/N): No Impression: Normal intestinal ultrasound of the entire visualized colon and galen- terminal ileum without any signs of active or chronic inflammation. The results of the examination were communicated tothe patient during the course of the examination in real-time. The patient was made aware that this examination is not adequate for the detection or diagnosis of polyps, mucosal dysplasia, or colorectal cancer and that lesions such as fistulae or abscesses can be missed as a result of the dynamic nature of this study. Bharathi Rosas MD [facility] Mobile Sales Techniciandistribution lineman, Section of Gastroenterology [facility] documented in this encounter Plan of Treatment Upcoming Encounters Date Type Department Care Team (Latest Contact Info) Description 04/01/2024 12:35 PM EST Hospital Encounter [place] [phone] Apurva Vivas MD [facility] [place] [address] 04/01/2024 12:35 PM EST - 04/01/2024 2:17 PM EST Surgery [place] [address] Apurva Vivas MD [facility] [place] [address] ANORECTAL EXAM, REQUIRING ANESTHESIA, DIAGNOSTIC (WRVU 1.8) 04/26/2024 3:00 PM EST Office [place] [address] Apurva Vivas MD [facility] [place] [address] Scheduled Procedures Name Priority Associated Diagnoses Date/Ti az ANORECTAL EXAM, REQUIRING ANESTHESIA, DIAGNOSTIC (WRVU 1.8) [...] 9:39 PM EDT) Perri Hernandez, [facility] Note: Patient's specific desired goal: [...] complication documented in this encounter Care Teams Senior Software Engineer Analytics Relationship Specialty Start Date End Date Irwin Gonsalez DO [address] [place] [address] PCP - General 05/01/11 documented as of this encounter
--- OUTSIDE RECORDS SUMMARY | 2024-03-10 01:56 | XMS_ITS | Encounter Summary ---
Author Organization [facility] [place] [address] Care Team Providers Care Feather Sawyer Name Role Phone Irwin Gonsalez DO Primary Care Provider [phone] Encounter Details Date Type Department Care Team (Late st Contact Info) Description 03/01/2024 Telephone [place] [address] Bárbara Santoro PA [facility] [place] [address] Social History Tobacco Use Types Packs/Day Years [...] encounter Miscellaneous Notes * Telephone Encounter - Bárbara Santoro PA - 03/01/2024 6:54 PM EST Tried to speak with Igor today regarding his MRI results. Was unable to reach him by phone, left voicemail to return phone call back. Will try to send my message as well. documented in this encounter Plan of Treatment Upcoming Encounters Date Type Department Care Team (Latest Contact Info) Description 04/01/2024 12:35 PM EST Hospital Encounter [place] [address] Apurva Vivas MD [facility] [place] [address] 04/01/2024 12:35 PM EST - 04/01/2024 2:17 PM EST Surgery [place] [address] Apurva Vivas MD [facility] [place] [address] ANORECTAL EXAM, REQUIRING ANESTHESIA, DIAGNOSTIC (WRVU 1.8) 04/26/2024 3:00 PM EST Office [place] [address] Apurva Vivas MD [facility] [place] [address] Scheduled Procedures Name Priority Associated Diagnoses Date/Ti [...] track( 017 9:39 PM EDT) Perri Hernandez, [facility] Note: Patient's specific desired goal: Igor [...] on filedocumented in this encounter Care Teams Feather Sawyer Relationship Specialty Start Date End Date Iriwn Gonsalez DO [address] [place] [address] PCP - General 05/01/11 documented as of this encounter
--- OUTSIDE RECORDS SUMMARY | 2024-03-10 01:56 | XMS_ITS | Encounter Summary ---
[place] [address] Care Team Providers Care Administrative Office Clerk Name Role Phone Irwin Gonsalez DO Primary Care Provider Reason for Visit * Reason Comments Medication Management Encounter Details Date Type Department Care Team (Late st Contact Info) Description 05/21/2023 Specialty Pharmacy [place] [phone] Lars Olivares RPH Social History Tobacco Use Types Packs/Day Years [...] as of this encounter Progress Notes * Lars Olivares RPH - 05/21/2023 3:05 PM EST Clinical Management Plan: Documentation of Clinical Response Specialty Pharmacy Consultation; Lars Olivares RPH Comprehensive Medication Management (CMM) Igor Sherine Kacy Mr. Igor Woodruff is a 48 y.o. (1975) male who was contacted by [facility] todocument clinical response for their specialty medication, humira. Summary: Appropriate Therapy: Yes Effective: Yes Patient states Humira has been very effective since starting it. He reports that he is doing well on the humira therapy. He would like to continue his humira therapy, he current has no symptoms and would like to remain in remission. This information will be submitted to insurance to pursue medication approval. Lars Olivares RPH 05/21/23 3:05 PM documented in this encounter Plan of Treatment Upcoming Encounters Date Type Department Care Team (Latest Contact Info) Description 04/01/2024 12:35 PM EST Hospital Encounter [place] [address] Apurva Vivas MD [facility] [place] [address] 04/01/2024 12:35 PM EST - 04/01/2024 2:17 PM EST Surgery [place] [address] Apurva Vivas MD [facility] [place] [address] ANORECTAL EXAM, REQUIRING ANESTHESIA, DIAGNOSTIC (WRVU 1.8) 04/26/2024 3:00 PM EST Office Visit [place] [address] Apurva Vivas MD [facility] [place] [address] Scheduled Procedures Name Priority Associated Diagnoses Date/Ti [...] 017 9:39 PM EDT) No Perri Sousa, [facility] Note: Patient's specific desired goal: Igor would [...] on filedocumented in this encounter Care Teams Administrative Office Clerk Relationship Specialty Start Date End Date Irwin Gonsalez DO [address] [place] [address] PCP - General 05/01/11 documented as of this encounter
--- OUTSIDE RECORDS SUMMARY | 2024-03-10 01:56 | XMS_ITS | Encounter Summary ---
[place] [address] Care Team Providers Care Regulatory Compliance Officer Name Role Phone Irwin Gonsalez DO Primary Care Provider [phone] Reason for Visit * Reason Onset Date Comments Medication Refill 07/02/2023 Encounter Details Date Type Department Care Team (Late st Contact Info) Description 07/02/2023 Refill [place] [address] Ramonita Pandey MD [facility] [place] [address] Crohn's disease of ileum with other complication [...] (Latest Contact Info) Description 04/01/2024 12:35 PM [facility] Hospital Encounter [place] [address] Apurva Vivas MD [facility] [place] [address] 04/01/2024 12:35 PM EST - 04/01/2024 2:17 PM EST Surgery [place] [address] Apurva Vivas MD [facility] [place] [address] ANORECTAL EXAM, REQUIRING ANESTHESIA, DIAGNOSTIC (WRVU 1.8) 04/26/2024 3:00 PM EST Office [place] [phone] Apurva Vivas MD [facility] [place] [address] Scheduled Procedures Name Priority Associated Diagnoses Date/Ti pr ANORECTAL EXAM, REQUIRING ANESTHESIA, DIAGNOSTIC (WRVU 1.8) perianal crohns disease w/fistula 04/01/2024 12:35 PM EST SURGICAL TREATMENT OF ANAL FISTULA COMPLEX OR MULTIPLE W\WO SETON PLACEMENT (WRVU 6.39) perianal crohns disease w/fistula 04/01/2024 12:35 PM EST documented as of this encounter Goals Goal Patient Goal Type Associated Problems Recent Progress Patient-Stated? Author [facility] Medication Compliance and Understanding Patient Facing [...] complication documented in this encounter Care Teams Regulatory Compliance Officer Relationship Specialty Start Date End Date Irwin Gonsalez DO [address] [place] [address] PCP - General 05/01/11 documented as of this encounter
--- OUTSIDE RECORDS SUMMARY | 2024-03-10 01:56 | XMS_ITS | Encounter Summary ---
Author Organization [facility] [place] [address] Care Team Providers Care Floor Helper Name Role Phone Irwin Gonsalez DO Primary Care Provider Encounter Details Date Type Department Care Team (Late st Contact Info) Description 03/02/2024 Specialty [place] [address] Thao Ruiz, LICENSED PSYCHIATRIC TECHNICIAN Social History Tobacco Use Types Packs/Day Years [...] PM EST Hospital Encounter [place] [phone] Apurva Vivas MD [facility] [place] [address] 04/01/2024 12:35 PM EST - 04/01/2024 2:17 PM EST Surgery [place] [address] Apurva Vivas MD [facility] [place] [address] ANORECTAL EXAM, REQUIRING ANESTHESIA, DIAGNOSTIC (WRVU 1.8) 04/26/2024 3:00 PM EST Office [place] [address] Apurva Vivas MD [facility] [place] [address] Scheduled Procedures Name Priority Associated Diagnoses Date/Ti [...] 017 9:39 PM EDT) Perri Hernandez, [facility] Note: Patient's specific desired goal: [...] on filedocumented in this encounter Care Teams Floor Helper Relationship Specialty Start Date End Date Irwin Gonsalez DO [address] [place] [address] PCP - General 05/01/11 documented as of this encounter
--- OUTSIDE RECORDS SUMMARY | 2024-03-10 01:57 | XMS_ITS | Encounter Summary ---
[place] [address] Care Team Providers Care Legal Writing Professor Name Role Phone Irwin Gonsalez DO Primary Care Provider [phone] Reason for Visit * Reason Comments Prior Authorization Humira Pen 40mg/0.4m L PNKT Encounter Details Date Type Department Care Team (Late st Contact Info) Description 11/28/2022 Specialty [place] [phone] Marielle Colbert Social History Tobacco Use Types Packs/Day Years [...] as of this encounter Progress Notes * Marielle Colbert - 11/28/2022 10:23 AM EDT [facility], Benefits Investigation Patient: Igor Woodruff Patient : 1975 Patient Address: [address] [facility] [address] Phone: [phone] (home) Medication Name: HUMIRA(CF) PEN 40 MG/0.4 ML SUBCUTANEOUS KIT Medication ID: [id number] Patient Location: [facility] Patient Location Comment: Medication Strength Frequency Requested: inject 40mg subcutaneously once every 7 days. Qty/Day Supply: 07/11 New Start: Renewal Diagnosis & ICD-10 Code: Crohn's Disease K50.018 Subscriber Insurance: [place] [facility] Subscriber Insurance Comment: - Fax: Physician: Ramonita MATAMOROS Physician Comment : PA Status: PA on File Insurance mandated Pharmacy: [facility] Fill[facility] at [facility]: No Insurance requirements/notes: PA on file for weekly Humira until 05/24/2023. Copay: N/A - unable to determine due to insurance mandate Copay assistance: Copay assistance comment: Pharmacy staff will be reaching out to the patient to inform them of their medication[facility]. If applicable, a pharmacist will speak with the patient to offer our specialty pharmacy services and to arrange delivery of their medication. Marielle Colbert 11/28/22 10:38 AM documented in this encounter Plan of Treatment Upcoming Encounters Date Type Department Care Team (Latest Contact Info) Description 04/01/2024 12:35 PM EST Hospital Encounter [place] [address] Apurva Vivas MD [facility] [place] [address] 04/01/2024 12:35 PM EST - 04/01/2024 2:17 PM EST Surgery [place] [address] Apurva Vivas MD [facility] [place] [address] ANORECTAL EXAM, REQUIRING ANESTHESIA, DIAGNOSTIC (WRVU 1.8) 04/26/2024 3:00 PM EST Office [place] [address] Apurva Vivas MD [facility] [place] [address] Scheduled Procedures Name Priority Associated Diagnoses Date/Ti [...] 017 9:39 PM EDT) No Perri Sousa, [facility] Note: [...] on filedocumented in this encounter Care Teams Legal Writing Professor Relationship Specialty Start Date End Date Irwin Gonsalez DO [address] [place] [address] [address] [place] [address] PCP - General 05/01/11 documented as of this encounter
--- OUTSIDE RECORDS SUMMARY | 2024-03-10 01:57 | XMS_ITS | Encounter Summary ---
Author Organization [facility] Address [facility] [place] [address] Care Team Providers Care Nanofabrication Specialist Name Role Phone Irwin Gonsalez DO Primary Care Provider [phone] Encounter Details Date Type Department Care Team (Late st Contact Info) Description 03/19/2021 Refill [place] [address] Ramonita Pandey MD [facility] [place] [address] Social History Tobacco Use Types Packs/Day Years [...] PM EST Hospital Encounter [place] [phone] Apurva Vivas MD [facility] [place] [address] 04/01/2024 12:35 PM EST - 04/01/2024 2:17 PM EST Surgery [place] [address] Apurva Vivas MD [facility] [place] [address] ANORECTAL EXAM, REQUIRING ANESTHESIA, DIAGNOSTIC (WRVU 1.8) 04/26/2024 3:00 PM EST Office [place] [phone] Apurva Vivas MD [facility] [place] [address] Scheduled Procedures Name Priority Associated Diagnoses Date/Ti [...] on filedocumented in this encounter Care Teams Nanofabrication Specialist Relationship Specialty Start Date End Date Irwin Gonsalez DO [address] [place] [address] [address] [place] [address] PCP - General 05/01/11 documented as of this encounter
--- OUTSIDE RECORDS SUMMARY | 2024-03-10 01:57 | XMS_ITS | Encounter Summary ---
[place] [address] Care Team Providers Care Manager Customer Service Name Role Phone Irwin Gonsalez DO Primary Care Provider [phone] Reason for Visit * Reason Comments Specialty Refill Management Encounter Details Date Type Department Care Team (Late st Contact Info) Description 02/20/2022 Specialty [place] [phone] Amirah Cano CPHT Social History Tobacco Use Types Packs/Day [...] as of this encounter Progress Notes * Amirah Cano CPHT - 02/20/2022 8:09 AM EST Clinical Management Plan: Refill Specialty Pharmacy Consultation; Amirah Cano CPHT Comprehensive Medication Management (CMM) Igor Sherine Kacy Mr. Igor Woodruff is a 47 y.o. (1975) male who was contacted in regard to a specialty medication refill reminder. Contact made with patient regarding Humira. A review of the medication therapy was performed. The medication was refilled as scheduled, and all medication related questions and concerns were addressed. The specialty pharmacy staff will follow up with the patient 5-7 days prior to next refill. Was a change made to the Care Plan: No Allergies and Drug intolerance: No Known Allergies Medication Reconciliation Discrepancies (compared to [facility] med list) No Specialty Pharmacy Refill Questionnaire Refill Questionnaire 02/20/2022 What is the name of the specialty medication you are refilling? Humira Are you taking any new medications? No Any new medical condition? No Any new allergies? No Any new side effects that are bothersome? No What date will you need this fill by? 02/25/2022 Adherence: Any missed doses? No Patient understands no changes to current drug regimen were made. Amirah Cano CPHT 02/20/22 8:10 AM documented in this encounter Plan of Treatment Upcoming Encounters Date Type Department Care Team (Latest Contact Info) Description 04/01/2024 12:35 PM EST Hospital Encounter [place] [address] Apurva Vivas MD [facility] [place] [address] 04/01/2024 12:35 PM EST - 04/01/2024 2:17 PM EST Surgery [place] [address] Apurva Vivas MD [facility] [place] [address] ANORECTAL EXAM, REQUIRING ANESTHESIA, DIAGNOSTIC (WRVU 1.8) 04/26/2024 3:00 PM EST Office [place] [address] Apurva Vivas MD [facility] [place] [address] Scheduled Procedures Name Priority Associated Diagnoses Date/Ti [...] 9:39 PM EDT) No Perri Sousa, [facility] Note: Patient's specific desired goal: [...] on filedocumented in this encounter Care Teams Manager Customer Service Relationship Specialty Start Date End Date Irwin Gonsalez DO [address] [place] [address] PCP - General 05/01/11 documented as of this encounter
--- OUTSIDE RECORDS SUMMARY | 2024-03-10 01:57 | XMS_ITS | Encounter Summary ---
Author Organization [facility] Address [facility] [place] [address] Care Team Providers Care Superintendent [employer] Name Role Phone Wallace Irwin MENDOZA Primary Care Provider Encounter Details Date Type Department Care Team (Late st Contact Info) Description 05/23/2021 Orders Only [place] [phone] Ramonita Pandey MD [facility] [place] [address] Social History Tobacco Use Types Packs/Day Years [...] PM EST Hospital Encounter [place] [phone] Apurva Vivas MD [facility] [place] [address] 04/01/2024 12:35 PM EST - 04/01/2024 2:17 PM EST Surgery [place] [address] Apurva Vivas MD [facility] [place] [address] ANORECTAL EXAM, REQUIRING ANESTHESIA, DIAGNOSTIC (WRVU 1.8) 04/26/2024 3:00 PM EST Office Visit [place] [phone] Apurva Vivas MD [facility] [place] [address] Scheduled Procedures Name Priority Associated Diagnoses Date/Ti [...] 017 9:39 PM EDT) No Perri Sousa, [facility] Note: Patient's specific desired goal: [...] on filedocumented in this encounter Care Teams Superintendent [employer] Relationship Specialty Start Date End Date Irwin Gonsalez DO [address] [place] [address] [address] [place] [address] PCP - General 05/01/11 documented as of this encounter
--- OUTSIDE RECORDS SUMMARY | 2024-03-10 01:57 | XMS_ITS | Encounter Summary ---
Author Organization [facility] [place] [address] Care Team Providers Care Barrel Turner Name Role Phone Irwin Gonsalez DO Primary Care Provider Reason for Visit * Reason Comments Medication Refill Encounter Details Date Type Department Care Team (Late st Contact Info) Description 06/30/2022 Refill [place] [phone] Ramonita Pandey MD [facility] [place] [address] Social History Tobacco Use Types Packs/Day Years [...] PM EST Hospital Encounter [place] [phone] Apurva Vivas MD [facility] [place] [address] 04/01/2024 12:35 PM EST - 04/01/2024 2:17 PM EST Surgery [place] [phone] Apurva Vivas MD [facility] [place] [address] ANORECTAL EXAM, REQUIRING ANESTHESIA, DIAGNOSTIC (WRVU 1.8) 04/26/2024 3:00 PM EST Office Visit [place] [phone] Apurva Vivas MD [facility] [place] [address] Scheduled Procedures Name Priority Associated Diagnoses Date/Ti me ANORECTAL EXAM, REQUIRING ANESTHESIA, DIAGNOSTIC (WRVU 1.8) perianal crohns disease w/fistula 04/01/2024 12:35 PM EST SURGICAL TREATMENT OF ANAL FISTULA COMPLEX OR MULTIPLE W\WO SETON PLACEMENT (WRVU 6.39) perianal crohns disease w/fistula 04/01/2024 12:35 PM EST documented as of this encounter Goals Goal Patient Goal Type Associated Problems Recent Progress Patient-Stated? Author [facility] Medication Compliance and Understanding Patient Facing [...] on filedocumented in this encounter Care Teams Barrel Turner Relationship Specialty Start Date End Date Irwin Gonsalez DO [address] [place] [address] [address] [place] [address] PCP - General 05/01/11 documented as of this encounter
--- OUTSIDE RECORDS SUMMARY | 2024-03-10 01:57 | XMS_ITS | Encounter Summary ---
[place] [address] Care Team Providers Care Weaver [employer] Name Role Phone Irwin Gonsalez DO Primary Care Provider Reason for Visit * Reason Comments Medication Management Medication Refill Patient Education Encounter Details Date Type Department Care Team (Late st Contact Info) Description 05/14/2021 Specialty [place] [address] Rhea Aldridge RPH Social History Tobacco Use Types Packs/Day [...] as of this encounter Progress Notes * Rhea Aldridge RPH - 05/14/2021 2:52 PM EST Specialty Pharmacy Consultation; Rhea Aldridge RPH Comprehensive Medication Management (CMM) Igor Basurto Mayitorobertjoshua Diagnosis: Crohn's Disease Therapy Start Date: 04/2016 Contact in person or via telephone: Telephone Mr. Igor Woodruff is a 46 y.o. (1975) male who was contacted in regard to specialty medication. Spoke with patient regarding Humira. A review of the medication therapy was performed. The medication was Refilled as scheduled, and all medication related questions and concerns were addressed. The specialty pharmacy staff will follow up with the patient 5-7 days prior to next refill. Is the patient willing to proceed with the Clinical Assessment? Yes Summary and Recommendations: Igor Woodruff was contacted via telephone for a review of Humira for the treatment of Crohn's disease. Patient was educated on the importance of infection prevention including best practices for hand hygiene and the annual flu vaccine. Discussed the need to avoid live vaccines during treatment. Dose hold parameters were reviewed including suspected/known infection, prescribed antibiotic therapy, or scheduled surgery. Patient agrees to contact the clinic to review dose hold in these settings. He isnot experiencing any side effects from the Humira. He reports he is experiencing a current flare up, lasting the past 2 weeks, including increased frequency of BM's and pain/discomfort. Provider is aware and patient has colonoscopy scheduled for 05/23/2021 to assess disease progression. Potential adjustments in therapy will be made pending results of colonoscopy. A review of dosing, storage, and administration was completed. Patient is administering 40 mg subcutaneously every 7 days. He is storing the Humira in the refrigerator and is performing proper site rotation, site sterilization, and allowing the medication to reach room temperature prior to injection. He is comfortable with the self injection process and declines a new sharps container with this refill. He was encouraged to contact Specialty Pharmacy with any questions or concerns. Clinic follow-up needed: no Allergies and Drug intolerance: No Known Allergies Problem List: Patient Active Problem List Diagnosis Code ??? 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 Abnormal liver function test R94.5 ??? GERD (gastroesophageal reflux disease) K21.9 Special Dietary or Hydration Requirements: no Medication Reconciliation Discrepancies (compared to [facility] med list) no Medication List: Current Outpatient Medications Medication Sig Dispense Refill ??? adalimumab (Humira,CF, Pen) 40 mg/0.4 mL Pen Injector Kit Inject the contents of one pen (40 mg) subcutaneously once every 7 days. 6 kit 0 ??? acetaminophen (TYLENOL) 325 mg Tablet Take 2 tablets by mouth every 4 hours as needed for Pain.30 tablet 1 ??? alfuzosin (UROXATRAL) 10 mg Tablet Sustained Release 24 hr TAKE ONE TABLET BY MOUTH EVERY DAY 12 ??? multivitamin (MULTIPLE VITAMIN) tablet Take 1 tablet by mouth daily. ??? esomeprazole (NEXIUM) 20 mg capsule Take 20 mg by mouth every morning (before breakfast). No current facility-administered medications for this visit. Most Recent Vitals: Ht Readings from Last 1 Encounters: 11/01/18 182.9 cm (6') Wt Readings from Last 3 Encounters: 10/13/19 101.2 kg (223 lb) 11/01/18 105.9 kg (233 lb 6.4 oz) 10/19/17 102.1 kg (225 lb) Temp Readings from Last 3 Encounters: 10/13/19 36.9 ??C (98.4 ??F) 06/04/16 36.7 ??C (98.1 ??F) 05/23/16 36.2 ??C (97.2 ??F) (Temporal) BP Readings from Last 3 Encounters: 10/13/19 133/90 11/01/18 (!) 144/103 10/19/17 (!) 149/100 Pulse Readings from Last 3 Encounters: 10/13/19 86 11/01/18 87 10/19/17 88 There is no height or weight on file to calculate BMI. Pertinent Lab values: Lab Results Component Value Date NA 142 10/19/2017 K 4.0 10/19/2017 CL 101 10/19/2017 CO2 27 10/19/2017 BUN 15 10/19/2017 CREATININE 0.89 10/19/2017 GLUCOSE 94 10/19/2017 GLUCFASTING 123 (H) 11/01/2010 CALCIUM 9.8 10/19/2017 Lab Results Component Value Date ALT 31 10/13/2019 AST 22 10/13/2019 ALKPHOS 54 10/13/2019 BILITOT 0.8 10/13/2019 BILIDIR 0.2 10/13/2019 ALBUMIN 4.3 10/13/2019 PROT 6.9 10/13/2019 Lab Results Component Value Date WBC 6.5 10/13/2019 HGB 15.2 10/13/2019 HCT 44.4 10/13/2019 MCV 85.4 10/13/2019 PLATELET 263 10/13/2019 No results found for: HA1C Immunization History Administered Date(s) Administered ??? Pneumococcal Conjugate (13 Valent) 2017 ??? Pneumococcal Polyvalent 23 10/10/2014 Assessment and Recommendations: Patient Counseling Patient informed of specialty services: Yes Patient accepted offer to student services counselor: select all, adherence/missed doses, cost of medications/cost implications, doses and administration, possible drug/OTC drug and food interactions, possible adverse side effects and management, pharmacy contact information, lab monitoring/follow up, possible drug/Rx drug interactions, safe handling, storage, and disposal, therapeutic rationale Treatment Outcomes 05/14/2021 1509 Disease progression: Stable Patient Overall Status: Stable Reviewed in detail with patient: Dose appropriateness based on recommended standard dosing Current medication list including OTC medications Medication and disease problems Allergies Comorbid conditions/ Problem List Past adverse events if any Special needs of the patient including physical and cognitive limitations Goals of therapy and management strategies Warnings, precautions, and contraindications Side effects Drug-drug and drug-food interactions Administration instructions including dose, frequency and method Handling, storage, and disposal Verifying expiration dates on products before use Rotating medication inventory to use oldest product first Relevant lab data Treatments impact on disease Dose appropriateness based on recommended standard dosing schedule, including any variations from FDA approved dosing Patient verbalizes understanding and is able to read-back instructions on self-administration/injection, proper storage, drug stability, importance of adherence and management strategies, side effect avoidance and mitigation strategies, and interruptions in therapy: Yes Patient is aware a licensed pharmacist is available 24 hours a day, 7 days a week to discuss medication-related questions or concerns: Yes Patient verbalizes understanding of the common side effect profile of their medication. The patient is able to call 911 or seek urgent care if signs/symptoms of allergy or harmful adverse reactions occur: Yes Additional care/services needed: No Additional equipment/supplies required: No Patient satisfied with care/services provided: Yes Specialty Assessment: Physical and Cognitive Assessment: Functional limitations identified: No Cognitive limitations identified: No Concern regarding orientation/memory: No Concern with reasoning/judgement: No Is patient a fall risk: No Social Assessment: Does patient have a primary long term care phlebotomist: No Does patient have an emergency contact on file: Yes Does patient need referral to social worker palliative care: No Does patient need referral to advocacy group: No Home Health Assessment: Is the patient in a safe home environment?: Yes Is the patient able to store their medication as directed?: Yes Does the patient have a support network at home?: Yes Reviewed potential home safety hazards with patient: Yes Economic Assessment: Patient is agreeable to medication copay: Yes Actual Copay: $: 5 Days Supply: 28 Welcome Packet and Rights and Responsibilities: Patient provided welcome packet/rights and responsibilities: Yes Date Confirmed: 11/20/17 Confirmation: Signature in [facility] Adherence Patient Demonstrates Understanding of Importance of Adherence: Yes Educational Information or Adherence Tools Provided: No Patient Reported X Missed Doses in the Last Month: 0 Provider-Estimated Medication Adherence Level: 90-100% Adherence Tools Used: directed education Therapy Assessment: Pre-Consult Questions 1) How comfortable are you with self-injecting medication?Very comfortable - Please explain if applicable: n/a 2) Overall, what is your confidence level with administering this medication? 10 3) How confident do you feel about preventing or managing injection site reactions? Very confident - Please explain if applicable: does not experience injection site reactions. 4) How satisfied are you with your therapy? Very satisfied - Please explain if applicable: Patient is having colonoscopy on 05/23/2021 to assess if any changesin therapy are needed. Post-Consult Interventions 1) Which interventions did you make as a result of this encounter? No intervention 2) Overall, what is your confidence level with administering this medication? 10 Current Medication Dosing/Route/Frequency: Humira 40mg/0.4ml - inject the contents of 1 pen (40mg) subcutaneously every 7 days Appropriate Therapy: Yes Effective: yes Current GI-related Symptoms/Pain: yes - Patient is experiencing a flare up including increased frequency of bowel movements and pain. Recent GI Flaring: yes - current (for the past 2 weeks) Recent Systemic Corticosteroid Use: no Relapsing/Remitting Factors: no Patient-Reported Side Effects: no Recent Infections: no Patient Goals: Patient's specific desired goal: Remain in remission with little pain and no blood in stools Measured by: pain scale Time-frame to meet goal: 6 months Is the patient on track to achieve goals of therapy? Yes - patient is having a colonoscopy on 05/23/2021 to assess symptoms and disease progression. If no, what are the barriers and action plan to reach the goal: n/a Care Plan and Interventions: Care Plan Reviewed and Approved by both Pharmacist and Patient: Yes Did Care Plan Change? No If yes: Change to plans of care based on: Patient's request: n/a Condition: n/a Response to therapy: n/a Provider request: n/a Follow-up needed: No Interventions (if applicable): no Patient experienced change in condition that affects treatment: no Patient Counseling: Utilizing appropriate injection technique: yes - Patient is comfortable with self injection process Rotation of Injection Sites: Yes Room Temperature Medication at Time of Injection: Yes Patient Satisfied with Therapy: yes - Patient is happy with current therapy - other options will beconsidered pending results of colonoscopy Pharmacist follow-up needed: No Patient understands no changes to current drug regimen were made at the appointment and that [facility] (summary located at top of note) for provider review and follow up. Rhea Aldridge RPH 05/14/21 3:10 PM documented in this encounter Plan of Treatment Upcoming Encounters Date Type Department Care Team (Latest Contact Info) Description 04/01/2024 12:35 PM EST Hospital Encounter [place] [address] Apurva Vivas MD [facility] [place] [address] 04/01/2024 12:35 PM EST - 04/01/2024 2:17 PM EST Surgery [place] [address] Apurva Vivas MD [facility] [place] [address] ANORECTAL EXAM, REQUIRING ANESTHESIA, DIAGNOSTIC (WRVU 1.8) 04/26/2024 3:00 PM EST Office [place] [address] Apurva Vivas MD [facility] [place] [address] Scheduled Procedures Name Priority Associated Diagnoses Date/Ti [...] 017 9:39 PM EDT) Perri Hernandez, [facility] Note: Patient's specific desired [...] on filedocumented in this encounter Care Teams [employer] Relationship Specialty Start Date End Date Irwin Gonsalez DO [address] [place] [address] PCP - General 05/01/11 documented as of this encounter
--- OUTSIDE RECORDS SUMMARY | 2024-03-10 01:57 | XMS_ITS | Encounter Summary ---
[place] [address] Care Team Providers Care [place] Name Role Phone Irwin Gonsalez DO Primary Care Provider [phone] Reason for Visit * Reason Comments Prior Authorization Humira PEN 40mg/0.4m l PNKT Encounter Details Date Type Department Care Team (Late st Contact Info) Description 07/01/2022 Specialty Pharmacy [place] [phone] Thao Sheppard, MORE Social History Tobacco Use Types Packs/Day Years [...] as of this encounter Progress Notes * Thao Sheppard CPHT - 07/01/2022 2:07 PM EDT [facility], Benefits Investigation Patient: Igor Woodruff Patient : 1975 Patient Address: [address] [facility] [address] Phone: [phone] (home) Medication Name: ADALIMUMAB 40 MG/0.4 ML SUBCUTANEOUS PEN KIT Medication ID: [id number] Patient Location: [facility] [place] [place] [facility] 4L Patient Location Comment: Medication Strength Frequency Requested: Humira PEN 40mg/0.4ml PNKT, Inject 0.4ml (40mg) subcutaneously once every 7 days. Qty/Day Supply: 07/11 New Start: Renewal Diagnosis & ICD-10 Code: K50.018 Crohn's disease of ileum with other complication Subscriber Insurance: Subscriber Insurance Comment: Isaac MOROCHO ([facility]) Phone: [phone] Fax: Physician: Ramonita MATAMOROS Physician Comment : PA Status: PA on File Insurance mandated Pharmacy: [facility] at [facility] Specialty Pharmacy: NO Insurance requirements/notes: PA on file for Humira PEN 40mg/0.4ml PNKT, qty 07/11 through 05/01/2023. REF# [id number]. None Copay: TBD Copay assistance: Copay assistance comment: Pharmacy staff will be reaching out to the patient to inform them of their medication's approval bytheir insurance. If applicable, a pharmacist will speak with the patient to offer our specialty pharmacy services and to arrange delivery of their medication. Thao Sheppard CPHT 07/01/22 2:17 PM documented in this encounter Plan of Treatment Upcoming Encounters Date Type Department Care Team (Latest Contact Info) Description 04/01/2024 12:35 PM EST Hospital Encounter [place] [address] Apurva Vivas MD [facility] [place] [address] 04/01/2024 12:35 PM EST - 04/01/2024 2:17 PM EST Surgery [place] [phone] Apurva Vivas MD [facility] [place] [address] ANORECTAL EXAM, REQUIRING ANESTHESIA, DIAGNOSTIC (WRVU 1.8) 04/26/2024 3:00 PM EST Office Visit [place] [phone] Apurva Vivas MD [facility] [place] [address] Scheduled Procedures Name Priority Associated Diagnoses Date/Ti me ANORECTAL EXAM, REQUIRING ANESTHESIA, DIAGNOSTIC (WRVU 1.8) perianal crohns disease w/fistula 04/01/2024 12:35 PM EST SURGICAL TREATMENT OF ANAL FISTULA COMPLEX OR MULTIPLE W\WO SETON PLACEMENT (WRVU 6.39) perianal crohns disease w/fistula 04/01/2024 12:35 PM EST documented as of this encounter Goals Goal Patient Goal Type Associated Problems Recent Progress Patient-Stated? Author [facility] Medication Compliance and Understanding Patient Facing Action Plan On track( 017 9:39 PM EDT) No Perri Sousa, [facility] Note: Patient's specific desired goal: [...] on filedocumented in this encounter Care Teams [place] Relationship Specialty Start Date End Date Irwin Gonsalez DO [address] [place] [address] [address] [place] [address] PCP - General 05/01/11 documented as of this encounter
--- OUTSIDE RECORDS SUMMARY | 2024-03-10 01:57 | XMS_ITS | Encounter Summary ---
Author Organization Formerly [facility] Address [facility] [place] [address] Care Team Providers Care Journal Box Inspector Name Role Phone Irwin Gonsalez DO Primary Care Provider Reason for Visit * Auth/Cert Specialty Diagnoses / Procedures Referred By Haresh powers Referred To Contact Diagnoses Crohn's disease of small intestine with other complication 46 yo with Crohn's - needs restaging Procedures PRO COLONOSCOPY, DIAGNOSTIC PRO ANESTH, LWR INTESTINE, NOS PRO ANESTH, LWR INTESTINE, SCREENING COLONOSCOPY COLONOSCOPY, DIAGNOSTIC Referral ID Status Reason Start Date Expiration Date Visits Re quested Visits Authorized [id number] 1 1 Encounter Details Date Type Department Care Team (Latest Contact Info) Description 05/23/2021 2:32 PM EST - 05/23/2021 5:29 PM [facility] Hospital Encounter [place] [address] Ramonita Pandey MD [facility] [place] [address] Discharge Disposition: Home Social History Tobacco Use [...] Sign Reading Time Taken Comments Blood Pressure 139/116 05/23/2021 5:20 PM EST Pulse 91 05/23/2021 4:50 PM EST Temperature 36.3 ??C (97.3 ??F) 05/23/2021 2:59 PM ES T Respiratory Rate 20 05/23/2021 4:50 PM EST Oxygen Saturation 96% 05/23/2021 5:20 PM EST Inhaled Oxygen Concentration - - Weight 106.6 kg (235 lb) 05/23/2021 2:59 PM EST Height 182.9 cm (6') 05/23/2021 2:59 PM EST Body Mass Index 31.87 05/23/2021 2:59 PM EST documented in this encounter Discharge Instructions * Discharge Instructions* Ashley Hendrickson, RN - 05/23/2021 5:33 PM EST Colonoscopy: What to Expect at Home Your Recovery Your doctor will talk to you about when you will need your next colonoscopy. Your doctor can help you decide how often you need to be checked. This will depend on the results of your test and your risk for colorectal cancer. After the test, you may be bloated or have gas pains. You may need to pass gas. If a biopsy was done or a polyp was removed, you may have streaks of blood in your stool (feces) for a few days. Problems such as heavy rectal bleeding may not occur until several weeks after the test. This isn't common. But it can happen after polyps are removed. This care sheet gives you a general idea about how long it will take for you to recover. But each person recovers at a different pace. Follow the steps below to get better as quickly as possible. How can you care for yourself at home? Activity Rest when you feel tired. You can do your normal activities when it feels okay to do so. Diet Follow your doctor's directions for eating. Unless your doctor has told you not to, drink plenty of fluids. This helps to replace the fluids that were lost during the colon prep. Do not drink alcohol. Medicines Your doctor will tell you if and when you can restart your medicines. He or she will also give you instructions about taking any new medicines. If you take blood thinners, such as warfarin (Coumadin), clopidogrel (Plavix), or aspirin, be sure to talk to your doctor. He or she will tell you if and when to start taking those medicines again. Make sure that you understand exactly what your doctor wants you to do. If polyps were removed or a biopsy was done during the test, your doctor may tell you not to take aspirin or other anti-inflammatory medicines for a few days. These include ibuprofen (Advil, Motrin) and naproxen (Aleve). Other instructions For your safety, do not drive or operate machinery until the medicine wears off and you can think clearly. Your doctor may tell you not to drive or operate machinery until the day after your test. Do not sign legal documents or make major decisions until the medicine wears off and you can think clearly. The anesthesia can make it hard for you to fully understand what you are agreeing to. Additional Information for Sedation Patients For patients who received sedation: You may have received medications before and/or during your procedure which effects your judgement and reaction time. Do not drive, operate machinery, drink alcoholic beverages or make important decisions for 24 hours. Be careful on stairs as you may be unsteady on your feet. You may eat a regular diet as tolerated. Do not smoke if you are alone. IV site: Slight redness or tenderness is normal, you can use a warm compress if you would like. If tenderness and/or redness increase or if foul drainage occurs, please contact your Doctor. Please call [phone] before 8pm Mon-Fri with problems, questions or concerns. If you call after 8pm or on weekends, call the Hospital at [phone] and ask to speak to the Planning Intern retail services professional and the stove carriage operator will contact that person for you. When should you call for help? Call [phone] anytime you think you may need emergency care. For example, call if: You passed out (lost consciousness). You pass maroon or bloody stools. You have trouble breathing. Call your doctor now or seek immediate medical care if: You have pain that does not get better after you take pain medicine. You are sick to your stomach or cannot drink fluids. You have new or worse belly pain. You have blood in your stools. You have a fever. You cannot pass stools or gas. Watch closely for changes in your health, and be sure to contact your doctor if you have any problems. Where can you learn more? [facility] View your After Visit Summary and more online at [email or web address] If you would like to provide feedback about your hospital experience, please call the Office of Patient and Family Relations at . If you have received this After Visit Summary in error, please immediately return it in person to the department, or notify the [facility] Privacy Office by calling toll free at between the hours of 8AM and 5PM to arrange for our retrieval of the documents at no cost to you. Content Version: 12.2 ?? [id number] [employer] Care instructions adapted under license by [email or web address]. If you have questions about a medical condition or this instruction, always ask your healthcare professional. [employer] disclaims any warranty or liability for your use of this information. documented in this encounter Medications at Time of Discharge Medication Sig Dispensed Refills Start Date End Date colestipoL (COLESTID) 1 gram Tablet Take 1 [...] mg by mouth every morning (before breakfast). adalimumab (Humira,CF, Pen) 40 mg/0.4 mL Pen Injector Kit Inject the contents of one pen (40 mg) subcutaneously once every 7 days. 6 kit 04/18/2021 07/02/2021 documented as of this encounter H&P Notes * Ramonita Pandey MD - 05/23/2021 3:55 PM EST Gastroenterology and Hepatology Pre-Procedure History and Physical Exam Procedure: Colonoscopy: Indication: Crohn's restaging Patient Active Problem List Diagnosis Code ??? 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 Abnormal liver function test R94.5 ??? GERD (gastroesophageal reflux disease) K21.9 EXAM: HEENT: Airway examined, oropharynx clear Mallampati Score: I (soft palate, uvula, fauces, tonsillar pillars visible) LUNGS: Clear to auscultation HEART: Regular rate and rhythm, normal S1, S2 ABDOMEN: Normal bowel sounds, soft, non tender, non distended, A/P Proceed with the planned endoscopic procedure. ASA 2 - Patient with mild systemic disease with no functional limitations Sedation Plan: moderate (conscious sedation) Risks and benefits of the procedure explained to the patient. Consent signed. documented in this encounter Plan of Treatment Upcoming Encounters Date Type Department Care Team (Latest Contact Info) Description 04/01/2024 12:35 PM EST Hospital Encounter [place] [address] Apurva Vivas MD [facility] [place] [address] 04/01/2024 12:35 PM EST - 04/01/2024 2:17 PM EST Surgery [place] [address] Apurva Vivas MD [facility] [place] [address] ANORECTAL EXAM, REQUIRING ANESTHESIA, DIAGNOSTIC (WRVU 1.8) 04/26/2024 3:00 PM EST Office [place] [phone] Apurva Vivas MD [facility] [place] [address] Scheduled Procedures Name Priority Associated Diagnoses Date/Ti [...] 017 9:39 PM EDT) Perri Hernandez, [facility] Note: Patient's specific desired goal: Igor would [...] Procedure Name Priority Date/Time Associated Diagnosis Comments SPECIMEN TO PATHOLOGY Routine 05/23/2021 4:42 PM EST SPECIMEN TO PATHOLOGY Routine 05/23/2021 4:42 PM EST SURGICAL PATHOLOGY REPORT Routine 05/23/2021 4:38 PM EST Colonoscopy, Biopsy ([id number]) 05/23/2021 4:09 PM EST Crohn's disease of ileum with other complication COLONOSCOPY Routine 05/23/2021 2:40 PM EST documented in this encounter Results * Specimen to Pathology (05/23/2021 4:42 PM EST) AP Specimen 05/23/2021 4:42 PM EST 05/23/2021 4:42 PM EST Narrative [facility] - 05/23/2021 4:42 PM EST Specimen requisition ordered. ??Separate Pathology report to follow L Timothy Pandey MD PATHOLOGY/CYTOLOGY O [place] [facility] [place] [address] * Specimen to Pathology (05/23/2021 4:42 PM EST) AP Specimen 05/23/2021 4:42 PM EST 05/23/2021 4:42 PM EST Narrative [facility] - 05/23/2021 4:42 PM EST Specimen requisition ordered. ??Separate Pathology report to follow L Timothy Pandey MD PATHOLOGY/CYTOLOGY O [place] [facility] [place] [address] * Surgical Pathology Report (05/23/2021 4:38 PM EST) Final Diagnosis [id number] ? Location: 4T; EA11; A The signing pathologist has (i) examined the relevant preparation(s) for the specimen(s) and (ii) rendered or confirmed the diagnosis(es). . ?Surgical Pathology DIAGNOSIS A - Mucosal biopsies; right colon, biopsy (Multiple): Colonic mucosa with focal crypt abscess, negative for dysplasia. B - Mucosal biopsies, left colon, biopsy (Multiple): Colonic mucosa with crypt architecture alteration, negative for dysplasia. Electronically signed by: ?Noris Christiansen MD Verified: ??05/25/2021 15:19 ??Pathologist Performed at: ??[facility] [place], [place], [place] SPECIMEN(S) SUBMITTED A - Mucosal biopsies; right colon, biopsy (Multiple) B - Mucosal biopsies, left colon, biopsy (Multiple) CLINICAL INFORMATION 46-year-old male, Hx of Crohn's ileitis SPECIMEN PROCESSING A - Labeled/Fixative : Mucosal biopsy; right colon, formalin. Quantity/Size: Five, ranging from 0.2-0.8 cm. Tissue Description: Soft, mazariegos-pink tissues. Sections/Process ing: Submitted en toto ??in 1 cassette labeled A1. B - Labeled/Fixative : Mucosal biopsies, left colon, formalin. Quantity/Size: Seven, ranging from 0.3-0.7 cm. Tissue Description: Soft, mazariegos-pink tissues. Sections/Process ing: Submitted en toto ??in 2 cassettes labeled B1-B2. ??mnd 05/25/2021 3:19 PM EST [facility] GI Biopsy 05/23/2021 4:38 PM EST 05/23/2021 4:38 PM EST GI Biopsy 05/23/2021 4:38 PM EST 05/23/2021 4:38 PM EST L Timothy Pandey MD PATHOLOGY/CYTOLOGY [place] ANTUNEZ [facility] [place] [address] * COLONOSCOPY (05/23/2021 2:40 PM EST) COLONOSCOPY [facility] Procedure Date: 05/23/2021 2:40 PM ? Patient Name: Igor Woodruff ? N: [id number] ? Date of : 1975 ? Age: 46 ? Order #: [id number] ? Instrument Name: [id number] ? Procedure: ? Colonoscopy Patient Profile: ? This is a 46 year old male. This ? patient has ileal Crohn's disease ? with perianal involvement, is taking ? adalimumab and is experiencing mild ? symptoms. Providers: ? Angelo Pandey MD, Jania Shaw, ? Elmo Espinosa, Administrative Project Coordinator Referring : ?Irwin Gonsalez, DO Medicines: ? [...] preparation was evaluated using ? the BBPS ([place] Bowel Preparation ? Scale) with scores of: [...] noted. ? Apart from the previously described [id number]-kw-[id number] ? widely patent ileocolonic anastomosis in the [...] Gonsalez DO GENERAL SURGICAL ORD ERABLES PROVATION documented in this encounter Visit Diagnoses Not on filedocumented in this encounter Administered Medications Inactive Administered Medications - up to 3 most recent administrations Medication Order MAR Action Action Date Dose Rate Site lactated ringers infusion 100 mL/hr, Intravenous, CONTINUOUS, Starting on Any 05/23/21 at 1515, Until Any 05/23/21 at 1734, Endoscopy (Day of Procedure) New Bag 05/23/2021 3:10 PM EST 100 mL/hr 100 mL/hr documented in this encounter Active and Recently Administered Medications Times are shown in EST. Continuous Medication Order 05/21/2021 05/22/2021 05/23/2021 lactated ringers infusion (CANCELED) 100 mL/hr, Intravenous, CONTINUOUS, Starting on Any 05/23/21 at 1515, Until Any 05/23/21 at 1734, Endoscopy (Day of Procedure) 1510 (New Bag - Prov ider: Karishma Carpenter RN) PRN Medication Order 05/21/2021 05/22/2021 05/23/2021 fentaNYL (pf) (50 mcg/mL) multi-dose injection (CANCELED) ONCE PRN, Starting on Any 05/23/21 at 1615, Until Any 05/23/21 at 1934, Intra-Operative (Intra-Procedure), Routine 1615 (Given - Provid er: Jania Shaw RN)1619 (Given - Provider: Jania Shaw RN)1622 (Given - Provider: Jania Shaw RN)1625 (Given - Provider: Jania Shaw RN) midazolam (pf) (Versed) (1 mg/mL) multi-dose injection (CANCELED) ONCE PRN, Starting on Any 05/23/21 at 1615, Until Any 05/23/21 at 1934, Intra-Operative (Intra-Procedure), Routine 1615 (Given - Provid er: Jania Shaw RN)1619 (Given - Provider: Jania Shaw RN)1622 (Given - Provider: Jania Shaw RN)1626 (Given - Provider: Jania Shaw RN)1633 (Given - Provider: Jania Shaw RN) documented in this encounter Care Teams Journal Box Inspector Relationship Specialty Start Date End Date Irwin Gonsalez DO [address] [place] [address] PCP - General 05/01/11 documented as of this encounter
--- OUTSIDE RECORDS SUMMARY | 2024-03-10 01:57 | XMS_ITS | Encounter Summary ---
[place] [address] Care Team Providers Care Rural Mail Contractor Name Role Phone Irwin Gonsalez DO Primary Care Provider [phone] Encounter Details Date Type Department Care Team (Late st Contact Info) Description 05/06/2022 Specialty [place] [phone] Rhea Aldridge RPH Social History Tobacco Use [...] Progress Notes * Rhea Aldridge RPH - 05/06/2022 12:39 PM EST Clinical Management Plan: Transfer of Care/Discharge Specialty Services Specialty Pharmacy Consultation; Rhea Aldridge RPH Comprehensive Medication Management (CMM) Igor Woodruff [address] [facility] [address] Telephone Information: Home Phone [phone] Is the patient transferring services to a different Specialty Pharmacy or discontinuing the medication? Transferring Services Medication: Humira 40mg/0.4ml Reason for discontinuation or transfer: Insurance mandates patient fill with [facility] Approximate date of discontinuation or transfer: 04/21/2022 Patient's response to therapy: Stable Summary of services provided by [facility]: routine follow up consults, refill reminders, benefits investigation, prior authorizations, [facility] moving consultant 06/10 Summary of on-going needs: ongoing monitoring of Humira therapy Referral for additional services (if applicable): n/a Is patient aware of referral? n/a Instructions provided to patient about discharge/transfer: yes - patient is aware of transfer Provider aware of discontinuation or transfer: yes Patient understands no changes to current drug regimen were made at the appointment and that [facility] isproviding recommendations (summary located at top of note) for provider review and follow up. Rhea Aldridge RPH 05/06/22 12:41 PM documented in this encounter Plan of Treatment Upcoming Encounters Date Type Department Care Team (Latest Contact Info) Description 04/01/2024 12:35 PM EST Hospital Encounter [place] [address] Apurva Vivas MD [facility] [place] [address] 04/01/2024 12:35 PM EST - 04/01/2024 2:17 PM EST Surgery [place] [address] Apurva Vivas MD [facility] [place] [address] ANORECTAL EXAM, REQUIRING ANESTHESIA, DIAGNOSTIC (WRVU 1.8) 04/26/2024 3:00 PM EST Office [place] [address] Apurva Vivas MD [facility] [place] [address] Scheduled Procedures Name Priority Associated Diagnoses Date/Ti [...] 017 9:39 PM EDT) No Perri Sousa, [facility] Note: Patient's specific desired goal: [...] on filedocumented in this encounter Care Teams Rural Mail Contractor Relationship Specialty Start Date End Date Irwin Gonsalez DO [address] [place] [address] PCP - General 05/01/11 documented as of this encounter
--- OUTSIDE RECORDS SUMMARY | 2024-03-10 01:57 | XMS_ITS | Encounter Summary ---
Author Organization [facility] [place] [address] Care Team Providers Care Metal Bonding Press Operator Name Role Phone Irwin Gonsalez DO Primary Care Provider Encounter Details Date Type Department Care Team (Late st Contact Info) Description 04/18/2021 Orders [place] [phone] Deisi Chatman, RN Crohn's disease of ileum with other complication [...] PM EST Hospital Encounter [place] [phone] Apurva Vivas MD [facility] [place] [address] 04/01/2024 12:35 PM EST - 04/01/2024 2:17 PM EST Surgery [place] [address] Apurva Vivas MD [facility] [address] ANORECTAL EXAM, REQUIRING ANESTHESIA, DIAGNOSTIC (WRVU 1.8) 04/26/2024 3:00 PM EST Office Visit [place] [phone] Apurva Vivas MD [facility] [address] Scheduled Procedures Name Priority Associated Diagnoses Date/Ti [...] complication documented in this encounter Care Teams Metal Bonding Press Operator Relationship Specialty Start Date End Date Irwin Gonsalez DO [address] [place] [address] PCP - General 05/01/11 documented as of this encounter
--- OUTSIDE RECORDS SUMMARY | 2024-03-10 01:57 | XMS_ITS | Encounter Summary ---
Author Organization [facility] Address [facility] [place] [address] Care Team Providers Care Shearing Shed Hand Name Role Phone Irwin Gonsalez DO Primary Care Provider Encounter Details Date Type Department Care Team (Late st Contact Info) Description 07/02/2021 Refill [place] [address] Ramonita Pandey MD [facility] [place] [address] Social History Tobacco Use Types Packs/Day Years [...] PM EST Hospital Encounter [place] [phone] Apurva Vivas MD [facility] [place] [address] 04/01/2024 12:35 PM EST - 04/01/2024 2:17 PM EST Surgery [place] [address] Apurva Vivas MD [facility] [place] [address] ANORECTAL EXAM, REQUIRING ANESTHESIA, DIAGNOSTIC (WRVU 1.8) 04/26/2024 3:00 PM EST Office [place] [phone] Apurva Vivas MD [facility] [place] [address] Scheduled Procedures Name Priority Associated Diagnoses Date/Ti [...] 017 9:39 PM EDT) No Perri Sousa, [facility] Note: Patient's specific [...] on filedocumented in this encounter Care Teams Shearing Shed Hand Relationship Specialty Start Date End Date Irwin Gonsalez DO [address] [place] [address] [address] [place] [address] PCP - General 05/01/11 documented as of this encounter
--- OUTSIDE RECORDS SUMMARY | 2024-03-10 01:57 | XMS_ITS | Encounter Summary ---
[place] [address] Care Team Providers Care Geneticist Name Role Phone Irwin Gonsalez DO Primary Care Provider Reason for Visit * Reason Comments Specialty Refill Management Humira Pen 4 0mg/0.4ml Pnkt Encounter Details Date Type Department Care Team (Late st Contact Info) Description 01/23/2022 Specialty [place] [phone] Jg Griffin, [facility] Social History Tobacco Use Types Packs/Day [...] as of this encounter Progress Notes * Jg Griffin - 01/23/2022 8:13 AM EST Clinical Management Plan: Refill Specialty Pharmacy Consultation; Jg Griffin Comprehensive Medication Management (CMM) Igor Edmondrobertjoshua Mr. Igor Woodruff is a 46 y.o. [...] Known Allergies Medication Reconciliation Discrepancies (compared to [facility] med list) No Specialty Pharmacy Refill Questionnaire Refill Questionnaire 01/23/2022 What is the name of the specialty medication you are refilling? Humira Pen 40mg/0.4ml Pnkt Are you taking any new medications? No Any new medical condition? No Any new allergies? No Any new side effects that are bothersome? No What date will you need this fill by? 01/30/2022 Adherence: Any missed doses? No Patient understands no changes to current drug regimen were made. Jg Griffin 01/23/22 8:14 AM documented in this encounter Plan of Treatment Upcoming Encounters Date Type Department Care Team (Latest Contact Info) Description 04/01/2024 12:35 PM EST Hospital Encounter [place] [address] Apurva Vivas MD [facility] [place] [address] 04/01/2024 12:35 PM EST - 04/01/2024 2:17 PM EST Surgery [place] [address] Apurva Vivas MD [facility] [place] [address] ANORECTAL EXAM, REQUIRING ANESTHESIA, DIAGNOSTIC (WRVU 1.8) 04/26/2024 3:00 PM EST Office Visit [place] [address] Apurva Vivas MD [facility] [place] [address] Scheduled Procedures Name Priority Associated Diagnoses Date/Ti [...] 017 9:39 PM EDT) No Perri Sousa, [facility] Note: Patient's specific desired goal: [...] on filedocumented in this encounter Care Teams Geneticist Relationship Specialty Start Date End Date Irwin Gonsalez DO [address] [place] [address] [address] [place] [address] PCP - General 05/01/11 documented as of this encounter
--- OUTSIDE RECORDS SUMMARY | 2024-03-10 01:57 | XMS_ITS | Encounter Summary ---
[place] [address] Care Team Providers Care Director Learning Services Name Role Phone Irwin Gonsalez DO Primary Care Provider Reason for Visit * Reason Onset Date Comments Other 01/08/2023 LM for patient t o call MRI directly at [phone] to set up MRI Enterography that was ordered by Dr. Timothy Pandey 12/08/22, Encounter Details Date Type Department Care Team (Late st Contact Info) Description 01/08/2023 [place]phone [place] [address] Kacey Benitez, RN Other (LM for patient to call MRI directly at [phone] to set up MRI Enterography that was ordered by Dr. Timothy Pandey 12/08/22,) Social History Tobacco Use Types Packs/Day Years [...] encounter Miscellaneous Notes * Telephone Encounter - Kacey Benitez RN - 01/08/2023 2:15 PM EDT LM for patient to call MRI directly at [phone] to set up MRI Enterography that was ordered by Dr. Timothy Pandey 12/08/22 that is due in Mar to Apr 2023. documented in this encounter Plan of Treatment Upcoming Encounters Date Type Department Care Team (Latest Contact Info) Description 04/01/2024 12:35 PM EST Hospital Encounter [place] [address] Apurva Vivas MD [facility] [place] [address] 04/01/2024 12:35 PM EST - 04/01/2024 2:17 PM EST Surgery [place] [phone] Apurva Vivas MD [facility] [place] [place] [address] ANORECTAL EXAM, REQUIRING ANESTHESIA, DIAGNOSTIC (WRVU 1.8) 04/26/2024 3:00 PM EST Office [place] [phone] Apurva Vivas MD [facility] [place] [place] [address] Scheduled Procedures Name Priority Associated Diagnoses Date/Ti me ANORECTAL EXAM, REQUIRING ANESTHESIA, DIAGNOSTIC (WRVU 1.8) perianal crohns disease w/fistula 04/01/2024 12:35 PM EST SURGICAL TREATMENT OF ANAL FISTULA COMPLEX OR MULTIPLE W\WO SETON PLACEMENT (WRVU 6.39) perianal crohns disease w/fistula 04/01/2024 12:35 PM EST documented as of this encounter Goals Goal Patient Goal Type Associated Problems Recent Progress Patient-Stated? Author [facility] Medication Compliance and Understanding Patient Facing Action Plan On track( 017 9:39 PM EDT) Perri Hernandez, [facility] Note: Patient's specific desired goal: [...] on filedocumented in this encounter Care Teams Director Learning Services Relationship Specialty Start Date End Date Irwin Gonsalez DO [address] [place] [address] PCP - General 05/01/11 documented as of this encounter
--- OUTSIDE RECORDS SUMMARY | 2024-03-10 01:57 | XMS_ITS | Encounter Summary ---
[place] [address] Care Team Providers Care Film Writer Name Role Phone Irwin Gonsalez DO Primary Care Provider [phone] Reason for Visit * Reason Comments Medication Management Encounter Details Date Type Department Care Team (Late st Contact Info) Description 08/13/2021 Specialty [place] [phone] Vinicio Spencer RPH Social History Tobacco Use Types Packs/Day [...] as of this encounter Progress Notes * Vinicio Spencer RPH - 08/13/2021 11:41 AM EDT Clinical Management Plan: Refill Specialty Pharmacy Consultation; Vinicio Spencer RPH Comprehensive Medication Management (CMM) Igor Sherine Mayitorobertjoshua Mr. Igor Woodruff is a 46 y.o. [...] a change made to the Care Plan: yes - Patient will be late on this injection. Schedule to inject on 08/13, but will receive medication on 08/15 and inject on 08/15 instead. If yes, should the medication be held: No Assessment and Recommendations: Title Type of Medication Management: chronic disease management, targeted medication review Referred By: provider Recipient: beneficiary Provider: plan sponsor pharmacist Visit Type: [facility] Follow-up Time Spent: 1-15 min Method of Contact: by telephone Cognitive Ability: good Cognitive Impairment Status Verified this Year: no Allergies and Drug intolerance: No Known Allergies Medication Reconciliation Discrepancies (compared to [facility] med list) -n/a Specialty Pharmacy Refill Questionnaire Refill Questionnaire 08/13/2021 What is the name of the specialty medication you are refilling? Humira Are you taking any new medications? No Any new medical condition? No Any new allergies? - Any missed doses since your last fill? No Any new side effects that are bothersome? No What date will you need this fill by? 08/13/2021 Adherence: Specialty Med Adherence Patient Demonstrates Understanding of Importance of Adherence: Yes Educational Information or Adherence Tools Provided: No Patient Reported X Missed Doses in the Last Month: 0 Provider-Estimated Medication Adherence Level: 90-100% Adherence Tools Used: directed education Pt understands no changes to current drug regimen were made at the appointment and that [facility] is providing recommendations (summary located at top of note) for provider review and follow up. Vinicio Spencer RPH 08/13/21 11:42 AM documented in this encounter Plan of Treatment Upcoming Encounters Date Type Department Care Team (Latest Contact Info) Description 04/01/2024 12:35 PM EST Hospital Encounter [place] [address] Apurva Vivas MD [facility] [place] [address] 04/01/2024 12:35 PM EST - 04/01/2024 2:17 PM EST [place] [address] Apurva Vivas MD [facility] [place] [address] ANORECTAL EXAM, REQUIRING ANESTHESIA, DIAGNOSTIC (WRVU 1.8) 04/26/2024 3:00 PM EST Office [place] [phone] Apurva Vivas MD [facility] [place] [address] Scheduled Procedures Name Priority Associated Diagnoses Date/Ti [...] on filedocumented in this encounter Care Teams Film Writer Relationship Specialty Start Date End Date Iriwn Gonsalez DO [address] [place] [address] [address] [place] [address] PCP - General 05/01/11 documented as of this encounter
--- OUTSIDE RECORDS SUMMARY | 2024-03-10 01:57 | XMS_ITS | Encounter Summary ---
[place] [address] Care Team Providers Care Grocery Stocker Name Role Phone Irwin Gonsalez DO Primary Care Provider Reason for Visit * Reason Comments Prior Authorization Humira PEN 40mg/0.4m l PNKT Encounter Details Date Type Department Care Team (Late st Contact Info) Description 12/02/2021 Specialty [place] [phone] Thoa Sheppard, MORE Social History Tobacco Use Types [...] Progress Notes * Thao Sheppard CPHT - 12/02/2021 3:48 PM EDT [facility], No Prior Authorization Required Patient: Igor Woodruff Patient : 1975 Patient Address: [address] [facility] [address] Phone: [phone] (home) Medication Name: ADALIMUMAB 40 MG/0.4 ML SUBCUTANEOUS PEN KIT Medication ID: [id number] Patient Location: [facility] Patient Location Comment: Medication Strength Frequency Requested: Humira PEN 40mg/0.4ml PNKT, Inject 0.4ml (40mg) subcutaneously once every 7 days. Qty/Day Supply: 07/11 New Start: Renewal Diagnosis & ICD-10 Code: K50.018 Crohn's disease of ileum with other complication Subscriber Insurance: Subscriber Insurance Comment: [facility] (IRX) Phone: [phone] Fax: Physician: Ramonita MATAMOROS Physician Comment : PA Status: NO PA REQUIRED Insurance mandated Pharmacy: Pharmacy Fillable at [facility] Specialty Pharmacy: YES Insurance requirements/notes: PA on file for Humira PEN 40mg/0.4ml PNKT, qty 07/11 through 05/16/2022. None Copay: $5 Copay assistance: Copay assistance comment: Pharmacy staff will be reaching out to the patient to inform them of [facility]. If applicable, a pharmacist will speak with the patient to offer our specialty pharmacy services and to arrange delivery of their medication. Thao Sheppard CPHT 12/02/21 3:52 PM documented in this encounter Plan of Treatment Upcoming Encounters Date Type Department Care Team (Latest Contact Info) Description 04/01/2024 12:35 PM EST Hospital Encounter [place] [address] Apurva Vivas MD [facility] [place] [address] 04/01/2024 12:35 PM EST - 04/01/2024 2:17 PM EST Surgery [place] [address] Apurva Vivas MD [facility] [place] [address] ANORECTAL EXAM, REQUIRING ANESTHESIA, DIAGNOSTIC (WRVU 1.8) 04/26/2024 3:00 PM EST Office Visit [place] [phone] Apurva Vivas MD [facility] [place] [address] Scheduled Procedures Name Priority Associated Diagnoses Date/Ti [...] on filedocumented in this encounter Care Teams Grocery Stocker Relationship Specialty Start Date End Date Irwin Gonsalez DO [address] [place] [address] [address] [place] [address] PCP - General 05/01/11 documented as of this encounter
--- OUTSIDE RECORDS SUMMARY | 2024-03-10 01:57 | XMS_ITS | Encounter Summary ---
[place] [address] Care Team Providers Care Assistant Corporate Controller Name Role Phone Irwin Gonsalez DO Primary Care Provider Reason for Visit * Reason Comments Prior Authorization Humira Pen Encounter Details Date Type Department Care Team (Late st Contact Info) Description 05/01/2022 Specialty [place] [address] Marielle Colbert Social History Tobacco Use Types [...] encounter Progress Notes * Marielle Colbert - 05/01/2022 8:54 AM EST [facility], Medication Prior Authorization Submission Patient: Igor Woodruff Patient : 1975 Patient Address: [address] [facility] [address] Phone: [phone] (home) Medication Name: HUMIRA(CF) PEN 40 MG/0.4 ML SUBCUTANEOUS KIT Medication ID: [id number] Subscriber [facility] Sub[facility] Insurance Comment: Fax: Physician: Ramonita MATAMOROS Physician Comment: Sent Via: [employer] Orellana: [id number] Ref/Case/PA#: Medication Strength Frequency Requested: inject 40mg subcutaneously once every 7 days Qty/Day Supply: 07/11 New Start: Renewal Diagnosis & ICD-10 Code: Crohn's Disease K50.018 Patient Notified: Submission Notes: Shay Colbert 05/01/22 8:59 AM documented in this encounter Plan of Treatment Upcoming Encounters Date Type Department Care Team (Latest Contact Info) Description 04/01/2024 12:35 PM EST Hospital Encounter [place] [phone] Apurva Vivas MD [facility] [place] [place] [address] 04/01/2024 12:35 PM EST - 04/01/2024 2:17 PM EST Surgery [place] [phone] Apurva Vivas MD [facility] [place] [address] ANORECTAL EXAM, REQUIRING ANESTHESIA, DIAGNOSTIC (WRVU 1.8) 04/26/2024 3:00 PM EST Office Visit [place] [phone] Apurva Vivas MD [facility] [place] [address] Scheduled Procedures Name Priority Associated Diagnoses Date/Ti [...] 9:39 PM EDT) No Perri Sousa, [facility] Note: Patient's specific desired goal: Igor [...] on filedocumented in this encounter Care Teams Assistant Corporate Controller Relationship Specialty Start Date End Date Irwin Gonsalez DO [address] [place] [address] PCP - General 05/01/11 documented as of this encounter
--- OUTSIDE RECORDS SUMMARY | 2024-03-10 01:57 | XMS_ITS | Encounter Summary ---
Author Organization [facility] Address [facility] [place] [address] Care Team Providers Care Carpet Binder Name Role Phone Irwin Gonsalez DO Primary [...] Expiration Date Visits Re quested Visits Authorized [id number] 1 1 Encounter Details Date Type Department Care Team (Late st Contact Info) Description 05/23/2021 4:00 PM EST - 05/23/2021 5:00 PM EST Surgery [place] [address] Ramonita Pandey MD [facility] [place] [address] COLONOSCOPY FLEXIBLE, WITH BX (WRVU 3.56) Social History Tobacco Use Types Packs/Day Years [...] Sign Reading Time Taken Comments Blood Pressure 128/98 05/23/2021 5:00 PM EST Pulse 91 05/23/2021 4:50 PM EST Temperature 36.3 ??C (97.3 ??F) 05/23/2021 2:59 PM ES T Respiratory Rate 20 05/23/2021 4:50 PM EST Oxygen Saturation 92% 05/23/2021 5:00 PM EST Inhaled Oxygen Concentration - - [...] occurs, please contact your Doctor. Please call [phone] before 8pm Mon-Fri with problems, questions or concerns. If you call after 8pm or on weekends, call the Hospital at [phone] and ask to speak to the Business Functional Analyst supervisor air conditioning installer and the boom operator will contact that person for you. When should you call for help? Call 647 anytime you think you may need emergency [...] any problems. Where can you learn more? [facility] View your After Visit Summary and more online at [email or web address] If you would like to provide feedback about your hospital experience, please call the Office of Patient and Family Relations at . If you have received this After Visit Summary in error, please immediately return it in person to the department, or notify the [facility] Privacy Office by calling toll free at between the hours of 8AM and 5PM to arrange for our retrieval of the documents at no cost to you. Content Version: 12.2 ?? [phone] [employer]. Care instructions adapted under license by [facility]. If you have questions about a medical condition or this instruction, always ask your healthcare professional. [employer] disclaims any warranty or liability for your [...] PM EST Hospital Encounter [place] [address] Apurva Vivas MD [facility] [place] [address] 04/01/2024 12:35 PM EST - 04/01/2024 2:17 PM EST [place] [address] Apurva Vivas MD [facility] [place] [address] ANORECTAL EXAM, REQUIRING ANESTHESIA, DIAGNOSTIC (WRVU 1.8) 04/26/2024 3:00 PM EST Office [place] [phone] Apurva Vivas MD [facility] [place] [address] Scheduled Procedures Name Priority Associated Diagnoses Date/Ti [...] track( 017 9:39 PM EDT) Perri Hernandez, [facility] Note: Patient's specific desired goal: Igor would [...] Routine 05/23/2021 4:38 PM EST Colonoscopy, Biopsy ([id number]) 05/23/2021 4:09 PM EST Crohn's disease of ileum with other complication COLONOSCOPY Routine 05/23/2021 2:40 PM EST documented in this encounter Results * Specimen to Pathology (05/23/2021 4:42 PM EST) AP Specimen 05/23/2021 4:42 PM EST 05/23/2021 4:[address] [facility] - 05/23/2021 4:42 PM EST Specimen requisition ordered. ??Separate Pathology report to follow L Timothy Pandey MD PATHOLOGY/CYTOLOGY O RDERACHANTE[address] [facility] [place] [address] * Specimen to Pathology (05/23/2021 4:42 PM EST) AP Specimen 05/23/2021 4:42 PM EST 05/23/2021 4:[address] [facility] - 05/23/2021 4:42 PM EST Specimen requisition ordered. ??Separate Pathology report to follow L Timothy Pandey MD PATHOLOGY/CYTOLOGY O [place] [facility] [place] [address] * Surgical Pathology Report (05/23/2021 4:38 PM EST) Final Diagnosis [id number] ? Location: 4T; EA; A The signing pathologist has (i) examined [...] MD Verified: ??05/25/2021 15:19 ??Pathologist Performed at: ??-[facility] Dept. of Pathology, [place], [place] SPECIMEN(S) SUBMITTED A - Mucosal biopsies; [...] labeled B1-B2. ??mnd 05/25/2021 3:[address] [facility] GI Biopsy 05/23/2021 4:38 PM EST 05/23/2021 4:38 PM EST GI Biopsy 05/23/2021 4:38 PM EST 05/23/2021 4:38 PM EST L Timothy Pandey MD PATHOLOGY/CYTOLOGY O RDERABLES [facility] [place] [address] * COLONOSCOPY (05/23/2021 2:40 PM EST) COLONOSCOPY [facility] Endoscopy Procedure Date: 05/23/2021 2:40 PM ? Patient Name: Igor Woodruff ? Date of : 1975 ? Age: 46 ? Order #: [id number] ? Instrument Name: [facility]-[id number] ? Procedure: ? Colonoscopy Patient Profile: ? This is a 46 year old male. This ? patient has ileal Crohn's disease ? with perianal involvement, is taking ? adalimumab and is experiencing mild ? symptoms. Providers: ? Angelo Pandey MD, Jania Shaw, ? Elmo Espinosa, Rn Cardiology Referring : ?Irwin Gonsalez, DO Medicines: ? [...] preparation was evaluated using ? the BBPS ([place] Bowel Preparation ? Scale) with scores of: [...] noted. ? Apart from the previously described [id number]-[id number] ? widely patent ileocolonic anastomosis in the [...] PROVATION documented in this encounter Visit Diagnoses Diagnosis Crohn's disease of ileum with other complication documented in this encounter Administered Medications Inactive Administered Medications - up to 3 most recent administrations Medication Order MAR Action Action Date Dose Rate Site fentaNYL (pf) (50 mcg/mL) multi-dose injection ONCE PRN, Starting on Any 05/23/21 at 1615, Until Any 05/23/21 at 1934, Intra-Operative (Intra-Procedure), Routine Given 05/23/2021 4:25 PM EST 50 mcg Given 05/23/2021 4:22 PM EST 50 mcg Given 05/23/2021 4:19 PM EST 50 mcg lactated ringers infusion 100 mL/hr, Intravenous, CONTINUOUS, Starting on Any 05/23/21 at 1515, Until Any 05/23/21 at 1734, Endoscopy (Day of Procedure) New Bag 05/23/2021 3:10 PM EST 100 mL/hr 100 mL/hr midazolam (pf) (Versed) (1 mg/mL) multi-dose injection ONCE PRN, Starting on Any 05/23/21 at 1615, Until Any 05/23/21 at 1934, Intra-Operative (Intra-Procedure), Routine Given 05/23/2021 4:33 PM EST 1 mg Given 05/23/2021 4:26 PM EST 1 mg Given 05/23/2021 4:22 PM EST 1 mg documented in this encounter Active and Recently [...] Routine 1615 (Given - Provid er: Jania Shaw, SYDNEE)1619 (Given - Provider: Jania Shaw RN)162 (Given - Provider: Jania Shaw, SYDNEE)1625 (Given - Provider: Jania Shaw, RN) midazolam (pf) (Versed) (1 mg/mL) multi-dose injection (CANCELED) ONCE PRN, Starting on Any 05/23/21 at 1615, Until Any 05/23/21 at 1934, Intra-Operative (Intra-Procedure), Routine 1615 (Given - Provid er: Jania Shaw, RN)1619 (Given - Provider: Jania Shaw, SYDNEE)1622 (Given - Provider: Jania Shaw RN)1626 (Given - Provider: Jania Shaw, SYDNEE)1633 (Given - Provider: Jania Shaw RN) documented in this encounter Care Teams Carpet Binder Relationship Specialty Start Date End Date Irwin Gonsalez DO [address] [place] [address] [address] [place] [address] PCP - General 05/01/11 documented as of this encounter
--- OUTSIDE RECORDS SUMMARY | 2024-03-10 01:57 | XMS_ITS | Encounter Summary ---
[place] [address] Care Team Providers Care Drop Wirer Name Role Phone Irwin Gonsalez DO Primary Care Provider Reason for Visit * Reason Comments Specialty Pharmacy Review Humira Encounter Details Date Type Department Care Team (Late st Contact Info) Description 12/08/2022 Specialty [place] [address] Osmin Kebede, GRANITE SANDBLASTER APPRENTICE Social History Tobacco Use Types Packs/Day Years [...] as of this encounter Progress Notes * Osmin Kebede - 12/08/2022 11:59 PM EDT The [facility] has completed a benefits investigation for Igor Woodruff to review their eligibility to fill at [facility]. Per patient's medication list they are prescribed Humira and the medication is not able to be filled at the [facility]. At this time insurance mandates this medication must be filled through [facility] documented in this encounter Plan of Treatment Upcoming Encounters Date Type Department Care Team (Latest Contact Info) Description 04/01/2024 12:35 PM EST Hospital Encounter [place] [address] Apurva Vivas MD [facility] [place] [address] 04/01/2024 12:35 PM EST - 04/01/2024 2:17 PM EST Surgery [place] [address] Apurva Vivas MD [facility] [place] [address] ANORECTAL EXAM, REQUIRING ANESTHESIA, DIAGNOSTIC (WRVU 1.8) 04/26/2024 3:00 PM EST Office [place] [phone] Apurva Vivas MD [facility] [place] [address] Scheduled Procedures Name Priority Associated Diagnoses Date/Ti [...] on filedocumented in this encounter Care Teams Drop Wirer Relationship Specialty Start Date End Date Irwin Gonsalez DO [address] [place] [address] PCP - General 05/01/11 documented as of this encounter
--- OUTSIDE RECORDS SUMMARY | 2024-03-10 01:57 | XMS_ITS | Encounter Summary ---
[place] [address] Care Team Providers Care Time Buyer Name Role Phone Irwin Gonsalez DO Primary Care Provider Reason for Visit * Reason Comments Specialty Refill Management Encounter Details Date Type Department Care Team (Late st Contact Info) Description 03/18/2022 Specialty [place] [phone] Amirah aCno CPHT Social History Tobacco Use Types Packs/Day [...] Progress Notes * Amirah Cano CPHT - 03/18/2022 8:45 AM EST Clinical Management Plan: Refill Specialty [...] Known Allergies Medication Reconciliation Discrepancies (compared to [facility] med list) No Specialty Pharmacy Refill Questionnaire Refill Questionnaire 03/18/2022 What is the name of the specialty medication you are refilling? Humira Are you taking any new medications? No Any new medical condition? No Any new allergies? No Any new side effects that are bothersome? No What date will you need this fill by? 03/25/2022 Adherence: Any missed doses? No Patient understands no changes to current drug regimen were made. Amirah Cano CPHT 03/18/22 8:46 AM documented in this encounter Plan of Treatment Upcoming Encounters Date Type Department Care Team (Latest Contact Info) Description 04/01/2024 12:35 PM EST Hospital Encounter [place] [address] Apurva Vivas MD [facility] [place] [address] 04/01/2024 12:35 PM EST - 04/01/2024 2:17 PM EST Surgery [place] [address] Apurva Vivas MD [facility] [place] [address] ANORECTAL EXAM, REQUIRING ANESTHESIA, DIAGNOSTIC (WRVU 1.8) 04/26/2024 3:00 PM EST Office [place] [address] Apurva Vivas MD [facility] [place] [address] Scheduled Procedures Name Priority Associated Diagnoses Date/Ti [...] PM EDT) No Perri Sousa, [facility] Note: Patient's specific desired goal: Igor [...] on filedocumented in this encounter Care Teams Time Buyer Relationship Specialty Start Date End Date Irwin Gonsalez DO [address] [place] [address] PCP - General 05/01/11 documented as of this encounter
--- OUTSIDE RECORDS SUMMARY | 2024-03-10 01:57 | XMS_ITS | Encounter Summary ---
Author Organization Formerly [facility], [facility] [place] [address] Care Team Providers Care Cook Restaurant Name Role Phone Irwin Gonsalez DO Primary Care Provider [phone] Encounter Details Date Type Department Care Team (Late st Contact Info) Description 11/27/2022 Orders [place] [phone] [facility] [place] [address] Crohn's disease of ileum with other complication; Diarrhea, unspecified type Social History Tobacco Use Types Packs/Day Years [...] (Latest Contact Info) Description 04/01/2024 12:35 PM [facility] Hospital Encounter [place] [phone] [facility] [place] [address] 04/01/2024 12:35 PM EST - 04/01/2024 2:17 PM EST Surgery [place] [address] [facility] [place] [address] ANORECTAL EXAM, REQUIRING ANESTHESIA, DIAGNOSTIC (WRVU 1.8) 04/26/2024 3:00 PM EST Office [place] [phone] [facility] [place] [address] Scheduled Procedures Name Priority Associated Diagnoses Date/Ti me ANORECTAL EXAM, REQUIRING ANESTHESIA, DIAGNOSTIC (WRVU 1.8) perianal crohns disease w/fistula 04/01/2024 12:35 PM EST SURGICAL TREATMENT OF ANAL FISTULA COMPLEX OR MULTIPLE W\WO SETON PLACEMENT (WRVU 6.39) perianal crohns disease w/fistula 04/01/2024 12:35 PM EST documented as of this encounter Goals Goal Patient Goal Type Associated Problems Recent Progress Patient-Stated? Author [facility] [place] Medication Compliance and Understanding Patient Facing Action Plan On track( 017 9:39 PM EDT) No Perri Sousa, [facility] Note: Patient's specific desired goal: Igor [...] Crohn's disease of ileum with other complication Diarrhea, unspecified type documented in this encounter Care Teams Cook Restaurant Relationship Specialty Start Date End Date Irwin Gonsalez DO [address] [place] [address] [facility] [place] [address] PCP - General 05/01/11 documented as of this encounter
--- OUTSIDE RECORDS SUMMARY | 2024-03-10 01:57 | XMS_ITS | Encounter Summary ---
Author Organization [facility] [place] [address] Care Team Providers Care Numerical Control Router Operator Name Role Phone Irwin Gonsalez DO Primary Care Provider [phone] Encounter Details Date Type Department Care Team (Late st Contact Info) Description 04/18/2022 Orders [place] [phone] Shannan Barnard, RN Crohn's disease of ileum with other [...] PM EST Hospital Encounter [place] [phone] Apurva Vivas MD [facility] [place] [address] 04/01/2024 12:35 PM EST - 04/01/2024 2:17 PM EST Surgery [place] [address] Apurva Vivas MD [facility] [place] [address] ANORECTAL EXAM, REQUIRING ANESTHESIA, DIAGNOSTIC (WRVU 1.8) 04/26/2024 3:00 PM EST Office [place] [phone] Apurva Vivas MD [facility] [place] [address] Scheduled Procedures Name Priority Associated Diagnoses Date/Ti [...] track( 017 9:39 PM EDT) Perri Hernandez, [facility] Note: Patient's specific desired goal: [...] complication documented in this encounter Care Teams Numerical Control Router Operator Relationship Specialty Start Date End Date Irwin Gonsalez DO [address] [place] [address] PCP - General 05/01/11 documented as of this encounter
--- OUTSIDE RECORDS SUMMARY | 2024-03-10 01:57 | XMS_ITS | Encounter Summary ---
Author [place] [address] Care Team Providers Care Electronic Publishing Specialist Name Role Phone Irwin Gonsalez DO Primary Care Provider Reason for Visit * Reason Comments Specialty Refill Management Encounter Details Date Type Department Care Team (Late st Contact Info) Description 04/18/2021 Specialty [place] [phone] Hayden Gutierrez CPHT Social History Tobacco Use Types Packs/Day [...] as of this encounter Progress Notes * Hayden Gutierrez - 04/18/2021 8:09 AM EST Clinical Management Plan: Refill Specialty Pharmacy Consultation; Hayden Gutierrez Comprehensive Medication Management (CMM) Igor Woodruff Mr. Igor Woodruff is a 46 y.o. [...] Known Allergies Medication Reconciliation Discrepancies (compared to [facility] med list) No Specialty Pharmacy Refill Questionnaire Refill Questionnaire 04/18/2021 What is the name of the specialty medication you are refilling? Humira 40mg/0.4mL pens Are you taking any new medications? No Any new medical condition? No Any new allergies? No Any new side effects that are bothersome? No What date will you need this fill by? 04/23/2021 Adherence: Any missed doses? No Patient understands no changes to current drug regimen were made. Hayden Gutierrez 04/18/21 8:10 AM documented in this encounter Plan of Treatment Upcoming Encounters Date Type Department Care Team (Latest Contact Info) Description 04/01/2024 12:35 PM EST Hospital Encounter [place] [address] Apurva Vivas MD [facility] [place] [address] 04/01/2024 12:35 PM EST - 04/01/2024 2:17 PM EST Surgery [place] [address] Apurva Vivas MD [facility] [place] [address] ANORECTAL EXAM, REQUIRING ANESTHESIA, DIAGNOSTIC (WRVU 1.8) 04/26/2024 3:00 PM EST Office Visit [place] [address] Apurva Vivas MD [facility] [place] [address] Scheduled Procedures Name Priority Associated Diagnoses Date/Ti [...] 017 9:39 PM EDT) No Perri Sousa, [facility] Note: Patient's specific desired goal: [...] on filedocumented in this encounter Care Teams Electronic Publishing Specialist Relationship Specialty Start Date End Date Irwin Gonsalez DO [address] [place] [address] PCP - General 05/01/11 documented as of this encounter
--- OUTSIDE RECORDS SUMMARY | 2024-03-10 01:57 | XMS_ITS | Encounter Summary ---
[place] [address] Care Team Providers Care Defence Force Senior Officer Name Role Phone Irwin Gonsalez DO Primary Care Provider Reason for Visit * Reason Comments Specialty Refill Management Encounter Details Date Type Department Care Team (Late st Contact Info) Description 2021 Specialty Pharmacy [place] [address] Hayden Gutierrez CPHT Social History [...] encounter Progress Notes * Hayden Gutierrez - 2021 11:16 AM EST Clinical Management Plan: Refill Specialty [...] Known Allergies Medication Reconciliation Discrepancies (compared to [facility] med list) No Specialty Pharmacy Refill Questionnaire Refill Questionnaire 2021 What is the name of the specialty medication you are refilling? Humira 40mg/0.4mL pens Are you taking any new medications? No Any new medical condition? No Any new allergies? No Any new side effects that are bothersome? No What date will you need this fill by? 02/25/2021 Adherence: Any missed doses? No Patient understands no changes to current drug regimen were made. Hayden Gutierrez 02/19/21 11:17 AM documented in this encounter Plan of Treatment Upcoming Encounters Date Type Department Care Team (Latest Contact Info) Description 04/01/2024 12:35 PM EST Hospital Encounter [place] [address] [facility] [place] [address] 04/01/2024 12:35 PM EST - 04/01/2024 2:17 PM EST Surgery [place] [address] [facility] [place] [address] ANORECTAL EXAM, REQUIRING ANESTHESIA, DIAGNOSTIC (WRVU 1.8) 04/26/2024 3:00 PM EST Office Visit [place] [phone] Apurva Vivas MD [facility] [place] [address] Scheduled Procedures Name Priority Associated Diagnoses Date/Ti [...] on filedocumented in this encounter Care Teams Defence Force Senior Officer Relationship Specialty Start Date End Date Irwin Gonsalez DO [address] [place] [address] PCP - General 05/01/11 documented as of this encounter
--- OUTSIDE RECORDS SUMMARY | 2024-03-10 01:57 | XMS_ITS | Encounter Summary ---
Author [place] [address] Care Team Providers Care Pie Maker Machine Name Role Phone Irwin Gonsalez DO Primary Care Provider [phone] Reason for Visit * Reason Onset Date Comments Medication Refill 11/27/2022 Encounter Details Date Type Department Care Team (Late st Contact Info) Description 11/27/2022 Refill [place] [phone] [facility] [place] [address] Crohn's disease of ileum with [...] (Latest Contact Info) Description 04/01/2024 12:35 PM [facility] Hospital Encounter [place] [address] [facility] [place] [place] [address] 04/01/2024 12:35 PM EST - 04/01/2024 2:17 PM EST Surgery [place] [address] [facility] [place] [address] ANORECTAL EXAM, REQUIRING ANESTHESIA, DIAGNOSTIC (WRVU 1.8) 04/26/2024 3:00 PM EST Office [place] [phone] [facility] [place] [address] Scheduled Procedures Name Priority Associated Diagnoses Date/Ti or ANORECTAL EXAM, REQUIRING ANESTHESIA, DIAGNOSTIC (WRVU 1.8) perianal crohns disease w/fistula 04/01/2024 12:35 PM EST SURGICAL TREATMENT OF ANAL FISTULA COMPLEX OR MULTIPLE W\WO SETON PLACEMENT (WRVU 6.39) perianal crohns disease w/fistula 04/01/2024 12:35 PM EST documented as of this encounter Goals Goal Patient Goal Type Associated Problems Recent Progress Patient-Stated? Author [facility] Medication Compliance and Understanding Patient Facing Action Plan On track( 017 9:39 PM EDT) Perri Hernandez, [facility] Note: Patient's specific desired goal: Igor would [...] complication documented in this encounter Care Teams Pie Maker Machine Relationship Specialty Start Date End Date Irwin Gonsalez DO [address] [place] [address] PCP - General 05/01/11 documented as of this encounter
--- OUTSIDE RECORDS SUMMARY | 2024-03-10 01:57 | XMS_ITS | Encounter Summary ---
Author Organization [facility] [place] [address] Care Team Providers Care Sharepoint Manager Name Role Phone Irwin Gonsalez DO Primary Care Provider Encounter Details Date Type Department Care Team (Latest Contact Info) Description 04/22/2021 3:00 PM EST TH Visit (TeleHealth) [place] [phone] Ramonita Pandey MD [facility] [place] [address] Crohn's disease of ileum with other complication [...] * Patient Instructions* Ramonita Pandey MD - 04/22/2021 3:38 PM EST 1. Continue Humira weekly 2. Colonoscopy within the next 4 weeks 3. Please call for worsening pain around the anus or fevers; low threshold to start ciprofloxacin and metronidazole 4. Check routine labs and adalimumab concentration with reflex antibody testing at [facility] 5 Follow-up via telehealth following colonoscopy. documented in this encounter Progress Notes * Ramonita Pandey MD - 04/22/2021 3:00 PM EST GASTROENTEROLOGY TELEMEDICINE PROGRAM - ESTABLISHED PATIENT VISIT Chief Complaint: Igor Woodruff is a 46 y[address] of [address] Gonsalez here for follow-up of Crohn's ileitis with perianal disease. Patient Active Problem List Diagnosis ??? Crohn's ileitis Overview Note: ?? diagnosed at age 17 yo ?? S/p ileocolic resection 10/29/10 - 19.5 cm of terminal ileum with active inflammation, fibrosis and an enteroenteric fistula. ?? SBFT 01/23 - persistent terminal ileal stricture as described above, consistent with the historyof Crohn's, with additional adjacent entero-enteric fistula, findings similar to the prior 2008 study ?? 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 ?? Colonoscopy 02/28/10: Stricture and pseudopolyps likely at the level of the IC valve. Mild inflammation characterized by a single ulcer, erythema and congestion. IC valve could never be clearly identified and the stricture could not be traversed. ?? CT scan 03/26/10: Active ileal disease with enteroenteric fistula; incidental finding of L lower lobe indeterminate pulmonary nodule; fatty replacement of liver. ?? Treated with Imuran for the last 4 years; had been treated with Asacol prior ?? 6MP metabolies were 6TG 213, 6MMP 1015. AZA to 250 mg qd 04/2009. Repeat metabolites 6TG 315, 6MMP 4217 ?? Colonoscopy 02/2013 - no active disease. ?? Colonoscopy 01/2017 - 2 superficial aphthae at the anastomosis. Otherwise, no active disease. ?? Perianal fistulizing disease - ?? Humira added to AZA in 04/2016; ADA 7.4 10/2017 - dose escalated to weekly ?? MRE 02/2019 - normal. ?? Stopped AZA 03/2019 ??? Abnormal liver function test Overview Note: ?? AALT 65-78 on increased dose of 6MP ?? fatty hepatic replacement on CT ?? HBsAb/Ag neg 2015 ?? HCV neg 04/2019 ?? ASMA neg 04/2019 ?? Stopped AZA 03/2019 ??? GERD (gastroesophageal reflux disease) Overview Note: ??? responsive to Nexium Interval history: Kobe reports that he has been doing reasonably well. However, there have been a couple of issues since we last met. He has good and bad days with perianal disease. He will have days with a fair amount of pain on theright side. His bowel frequency has increased up to ~5 times per day. Stools are loose about 2/3 of the time. Seeing blood with stools on rare occasion - one of twenty stools perhaps. He is awakening at night tomove his bowels. He has abd pain a few weeks ago and then went away - in the RLQ. He put the weightlost last summer back on. There has been no nausea, vomiting, distention. Humira weekly and tolerates it well without missing doses. Review of systems: 14-point review of systems reviewed and negative except as above. Medications: Outpatient Medications Prior to Visit Medication Sig Dispense Refill ??? adalimumab (Humira,CF, [...] by mouth every morning (before breakfast). No facility-administered medications prior to visit. Allergies: has No Known Allergies. Past Medical History: has a past medical history of ABNORMAL LIVER FUNCTION TEST (07/07/2010), Crohn's ileitis (07/07/2010), and GERD (gastroesophageal reflux disease) (07/07/2010). Past Surgical History: has a past surgical history that includes Appendectomy (1999); meniscectomy (2002); Lap, Surg, Colectomy, W/Remvl Term Ileum (26507) (10/29/2010); Colonoscopy, Biopsy (64170) (05/01/2011); Colonoscopy, Diagnostic (96392) (02/25/2013); Surg Diagnostic Exam, Anorectal (07274) (N/A, 02/26/2016); Placement, Seton (12451) (N/A, 02/26/2016); Cystoscopy, Insert Ureteral Stent (10464) (Left, 05/02/2016); Cysto W Ureteroscopy &/Or Pyeloscopy, Dx (32760) (Left, 05/02/2016); Cystourethroscopy, Ureter Catheter (04547) (Left, 05/02/2016); Fluoroscopy Exam Up To 1 Hr y Or [facility] Care Prov (04997) (Left, 05/02/2016); Cystoscopy, Remv Calculus, Simple (78767) (Left, 05/23/2016); Cysto/Ureteroscopy W/[employer] Indwelling Stent Insertion (58894) (Left, 05/23/2016); Fluoroscopy Exam Up To 1 Hr y Or [facility] Care Prov (05882) (Left, 05/23/2016); Cystourethroscopy, Ureter Catheter (75489) (Left, 05/23/2016); and Colonoscopy, Diagnostic (34692) (N/A, 02/09/2017). Family History: family history includes Crohn Disease in an other family member. Social History: reports that he has never smoked. He has never used smokeless tobacco. He reports current alcohol use of about 1.0 standard drink of alcohol per week. He reports that he does not use drugs. No Physical Examination performed during this telemedicine visit Laboratory studies, imaging, and procedures (my review of prior records): I reviewed his labs from April drawn at [facility]. CRP, CBC within normal. Liver tests elevated with ALT 101 AST 44. Alkaline phosphatase and bilirubin normal. Albumin normal. Assessment/Plan: Mr. Woodruff is a 46 y.o. patient with Crohn's ileitis and perianal disease. As I was after last visit, I am concerned about his symptoms of perianal pain and drainage. Now, heis also having more diarrhea. I have [facility], and he needs restaging with a colonoscopy within the next ~4 weeks. May want to consider Remicade depending on colonoscopy results. Recommendations: 1. Continue Humira weekly 2. Colonoscopy within the next 4 weeks 3. Please call for worsening pain around the anus or fevers; low threshold to start ciprofloxacin and metronidazole 4. Check routine labs and adalimumab concentration with reflex antibody testing at [facility] 5 Follow-up via telehealth following colonoscopy. I spent 25 min today reviewing the chart preparing for this visit, counseling the patient [id number] on the issues outlined above, and documenting an implementing the plan. Angelo Pandey MD [employer] Supervisorinside sales director Co-Director, [facility] Section of [place]enter[place] [address] documented in this encounter Plan of Treatment Upcoming Encounters Date Type Department Care Team (Latest Contact Info) Description 04/01/2024 12:35 PM EST Hospital Encounter [place] [phone] Apurva Vivas MD [facility] [place] [address] 04/01/2024 12:35 PM EST - 04/01/2024 2:17 PM EST Surgery [place] [phone] Apurva Vivas MD [facility] [place] [address] ANORECTAL EXAM, REQUIRING ANESTHESIA, DIAGNOSTIC (WRVU 1.8) 04/26/2024 3:00 PM EST Office [place] [phone] Apurva Vivas MD [facility] [place] [address] Scheduled Orders Name Type Priority Associated Diagnoses Orde r Schedule ENDOSCOPY CASE REQUEST: COLONOSCOPY, DIAGNOSTIC Procedures Routine Crohn's disease of ileum with other complication Ordered: 04/22/2021 Scheduled Procedures Name Priority Associated Diagnoses Date/Ti [...] 017 9:39 PM EDT) No Perri Sousa, [facility] Note: Patient's specific desired goal: [...] complication documented in this encounter Care Teams Sharepoint Manager Relationship Specialty Start Date End Date Irwin Gonsalez DO [address] [place] [address] PCP - General 05/01/11 documented as of this encounter
--- OUTSIDE RECORDS SUMMARY | 2024-03-10 01:57 | XMS_ITS | Encounter Summary ---
Author Organization [facility] Address [facility] [place] [address] Care Team Providers Care Metal Casket Assembler Name Role Phone Irwin Gonsalez DO Primary Care Provider Encounter Details Date Type Department Care Team (Latest Contact Info) Description 12/08/2022 4:30 PM EDT TH Visit (TeleHealth) [place] [phone] Ramonita Pandey MD [facility] [place] [address] Crohn's disease of ileum with other complication [...] * Patient Instructions* Ramonita Pandey MD - 12/08/2022 4:30 PM EDT Humira 40 mg every other week Labs in December as scheduled Schedule MR enterography to be done at some point in approximately 4 to 5 months Follow-up via telehealth with or Thi Salgado APRN after the MR in about 6 months documented in this encounter Progress Notes * Ramonita Pandey MD - 12/08/2022 4:30 PM EDT [facility] ESTABLISHED PATIENT TELEVISIT Patient Active Problem List [...] MRE 02/2019 - normal. Stopped AZA 03/2019 [place] 05/23/21 - Rutgeert's i1 - single small [...] CURRENT IBD MEDS: Humira 40 mg every other week INTERVAL HISTORY: Mr. Woodruff reports that 2 weeks ago had severe diarrhea. He was moving his bowels 6-8 times per day for about 3 and 1/2 days. No N/V. Had a little soreness in the lower right. He also felt feverish but didn't check his temp. It came on suddenly, and his son had similar symptoms for about one day. At the time, it had been ~2 weeks since his prior Humira shot. It has been over two weeks since he had his Humira due to problems getting his PA. It is on the way. Jona came out about 6-7 months ago. Since then, he has had no problems with the fistula. No pain and occasional mild drainage. Not enough to wear a pad. Weight has been overall stable. Please see Qorus questionnaire results below for [...] procedures (my review of prior records): Reviewed from 05/2022 - see scanned docs CBC, and CRP wnl ALT 100, AST 39, Ap 71, and Tbil 0.6 Assessment and Plan: Overall, doing quite well. I suspect based on sudden onset of symptoms and improvement within 3 andhalf days that his most recent bout of diarrhea was probably infectious, especially with his son having similar symptoms at the same time. We will plan on continuing Humira every other week. He has an appointment to get labs drawn on December 21 at [facility]. Discussed obtaining an MR enterography to restage in about 4 to 5 months with a follow-up which could be via telehealth about 1 month later. We discussed the following recommendations that were copied to the After Visit Summary: Humira 40 mg every other week Labs in December as scheduled Schedule MR enterography to be done at some point in approximately 4 to 5 months Follow-up via telehealth with me or Thi Salgado APRN after the MR in about 6 months The patient was located in [place] at the time of their visit. TIME SPENT Time spent during encounter with patient including counselin minutes An additional 10 minutes were spent before and after the visit on this same day in preparation for the appointment, ordering tests and/or prescriptions, communicating with referring providers and completing documentation Approximate total time devoted to this single encounter: 25 L. Timothy Pandey MD Workforce Management Consultantdata librarian Co-Director, [facility] Section of Gastroenterology [place] [address] documented in this encounter Plan of Treatment Upcoming Encounters Date Type Department Care Team (Latest Contact Info) Description 04/01/2024 12:35 PM EST Hospital Encounter [place] [address] Apurva Vivas MD [facility] [place] [address] 04/01/2024 12:35 PM EST - 04/01/2024 2:17 PM EST Surgery Main [place] [address] Apurva Vivas MD [facility] [place] [address] ANORECTAL EXAM, REQUIRING ANESTHESIA, DIAGNOSTIC (WRVU 1.8) 04/26/2024 3:00 PM EST Office Visit [place] [address] Apurva Vivas MD [facility] [place] [address] Scheduled Procedures Name Priority Associated Diagnoses Date/Ti [...] PM EDT) No Perri Sousa, [facility] Note: Patient's specific desired goal: [...] documented in this encounter Care Teams Metal Casket Assembler Relationship Specialty Start Date End Date Irwin Gonsalez DO [address] [place] [address] PCP - General 05/01/11 documented as of this encounter
--- OUTSIDE RECORDS SUMMARY | 2024-03-10 01:57 | XMS_ITS | Encounter Summary ---
[place] [address] Care Team Providers Care Agriculture Worker Name Role Phone Irwin Gonsalez DO Primary Care Provider Reason for Visit * Reason Comments Specialty Refill Management Encounter Details Date Type Department Care Team (Late st Contact Info) Description 09/04/2021 Specialty [place] [address] Brittani Silver, [facility] Social History Tobacco Use Types Packs/Day [...] as of this encounter Progress Notes * Brittani Silver - 09/04/2021 8:40 AM EDT Clinical Management Plan: Refill Specialty Pharmacy Consultation; Brittani Silver Comprehensive Medication Management (CMM) Igor Sherine Monzonjoshua Mr. Igor Woodruff is a 46 y.o. [...] Known Allergies Medication Reconciliation Discrepancies (compared to [facility] med list) No Specialty Pharmacy Refill Questionnaire Refill Questionnaire 09/04/2021 What is the name of the specialty medication you are refilling? Humira Pen 40 mg / 0.4 mL (kit) Are you taking any new medications? No Any new medical condition? No Any new allergies? No Any new side effects that are bothersome? No What date will you need this fill by? 09/12/2021 Adherence: Any missed doses? No Patient understands no changes to current drug regimen were made. Brittani Silver 09/04/21 8:41 AM documented in this encounter Plan of Treatment Upcoming Encounters Date Type Department Care Team (Latest Contact Info) Description 04/01/2024 12:35 PM EST Hospital Encounter [place] [address] Apurva Vivas MD [facility] [address] 04/01/2024 12:35 PM EST - 04/01/2024 2:17 PM EST Surgery [place] [address] Apurva Vivas MD [facility] [address] ANORECTAL EXAM, REQUIRING ANESTHESIA, DIAGNOSTIC (WRVU 1.8) 04/26/2024 3:00 PM EST Office [place] [address] Apurva Vivas MD [facility] [address] Scheduled Procedures Name Priority Associated Diagnoses Date/Ti [...] 017 9:39 PM EDT) No Perri Sousa, [facility] Note: Patient's specific desired goal: [...] on filedocumented in this encounter Care Teams Agriculture Worker Relationship Specialty Start Date End Date Irwin Gonsalez DO [address] [place] [address] [address] [place] [address] PCP - General 05/01/11 documented as of this encounter
--- OUTSIDE RECORDS SUMMARY | 2024-03-10 01:57 | XMS_ITS | Encounter Summary ---
[place] [address] Care Team Providers Care Digital Media Manager Name Role Phone Irwin Gonsalez DO Primary Care Provider Encounter Details Date Type Department Care Team (Late st Contact Info) Description 04/23/2021 [place] [address] ElizabethJune Social History Tobacco Use Types Packs/Day Years [...] encounter Miscellaneous Notes * Telephone Encounter - ElizabethJune - 04/23/2021 8:22 AM EST Igor Woodruff [id number] Diagnosis/Indication: 46 yo with Crohn's - needs restaging 1. Have you ever had a/an Colonoscopy before? Yes: Date 02/09/2017 If yes, did you have any problems with the procedure? No What type of sedation was used: IV Conscious Sedation 2. Do you take any blood thinners or have you been diagnosed with a bleeding disorder that increases your risk of bleeding with procedures? No 3. Do you have a Pacemaker or Defibrillator device? No 4. Are you a diabetic? No 5. Do you have any Allergies to Eggs, Latex or Medications? No 6. Do you take any Oral Iron Supplements (Including multi-vitamins)? Yes (Multivitamin) 7. Do you have a history of three or more abdominal surgeries? No 8. Have you had a problem with sedation or anesthesia? No 9. Do you use a c-pap machine or oxygen tank? Neither 10. Do you take prescription narcotic pain medications, including suboxone or methodone? No 11. Do you have a preference regarding the gender of your provider? Yes: Male 12. Is there any other information you would like to us to note for the provider and nursing team who will perform your case? No 13. Say to patient: You must have a responsible alliance party who will drive you to your procedure, stay [place] for the entire duration of your procedure, and drive you home from your procedure? Age:46 y.o. Height 6 Weight 235 bmi - 31.9 documented in this encounter Plan of Treatment Upcoming Encounters Date Type Department Care Team (Latest Contact Info) Description 04/01/2024 12:35 PM EST Hospital Encounter [place] [address] Apurva Vivas MD [facility] [place] [address] 04/01/2024 12:35 PM EST - 04/01/2024 2:17 PM EST Surgery [place] [address] Apurva Vivas MD [facility] [place] [address] ANORECTAL EXAM, REQUIRING ANESTHESIA, DIAGNOSTIC (WRVU 1.8) 04/26/2024 3:00 PM EST Office [place] [address] Apurva Vivas MD [facility] [place] [address] Scheduled Procedures Name Priority Associated Diagnoses Date/Ti [...] track( 017 9:39 PM EDT) Perri Hernandez, [facility] Note: Patient's specific desired [...] on filedocumented in this encounter Care Teams Digital Media Manager Relationship Specialty Start Date End Date Irwin Gonsalez DO [address] [place] [address] PCP - General 05/01/11 documented as of this encounter
--- OUTSIDE RECORDS SUMMARY | 2024-03-10 01:57 | XMS_ITS | Encounter Summary ---
[place] [address] Care Team Providers Care Customer Service Advisor Name Role Phone Irwin Gonsalez DO Primary Care Provider Reason for Visit * Reason Comments Specialty Refill Management Encounter Details Date Type Department Care Team (Late st Contact Info) Description 06/04/2021 Specialty [place] [phone] Vidya Santana, SHIFT SUPERVISOR RN Social History Tobacco Use Types Packs/Day [...] as of this encounter Progress Notes * Vidya Santana - 06/04/2021 9:48 AM EDT Clinical Management Plan: Refill Specialty Pharmacy Consultation; Vidya Santana Comprehensive Medication Management (CMM) Igor Sherine Mayitorobertjoshua [...] Known Allergies Medication Reconciliation Discrepancies (compared to [facility] med list) No Specialty Pharmacy Refill Questionnaire Refill Questionnaire 06/04/2021 What is the name of the specialty medication you are refilling? Humira Pen 40MG/0.4ML PNKT Are you taking any new medications? No Any new medical condition? No Any new allergies? No Any new side effects that are bothersome? No What date will you need this fill by? 06/11/2021 Adherence: Any missed doses? No Patient understands no changes to current drug regimen were made. Vidya Santana 06/04/21 9:49 AM documented in this encounter Plan of Treatment Upcoming Encounters Date Type Department Care Team (Latest Contact Info) Description 04/01/2024 12:35 PM EST Hospital Encounter [place] [address] Apurva Vivas MD [facility] [place] [address] 04/01/2024 12:35 PM EST - 04/01/2024 2:17 PM EST Surgery [place] [address] Apurva Vivas MD [facility] [address] ANORECTAL EXAM, REQUIRING ANESTHESIA, DIAGNOSTIC (WRVU 1.8) 04/26/2024 3:00 PM EST Office [place] [address] Apurva Vivas MD [facility] [address] Scheduled Procedures Name Priority Associated Diagnoses Date/Ti [...] 017 9:39 PM EDT) No Perri Sousa, [facility] Note: Patient's specific desired goal: Igor [...] on filedocumented in this encounter Care Teams Customer Service Advisor Relationship Specialty Start Date End Date Irwin Gonsalez DO [address] [place] [address] PCP - General 05/01/11 documented as of this encounter
--- OUTSIDE RECORDS SUMMARY | 2024-03-10 01:57 | XMS_ITS | Encounter Summary ---
[place] [address] Care Team Providers Care Electrician Ship Name Role Phone Irwin Gonsalez DO Primary Care Provider Reason for Visit * Reason Comments Medication Management Encounter Details Date Type Department Care Team (Late st Contact Info) Description 04/18/2022 Specialty Pharmacy [place] [phone] Ericka Abreu RPH Social History Tobacco Use Types Packs/Day [...] as of this encounter Progress Notes * Ericka Abreu RPH - 04/18/2022 8:40 AM EST Specialty Pharmacy Consultation; Ericka Abreu RPH Comprehensive Medication Management (CMM): Specialty Consult, Opt Out Igor Sherine Kacy Diagnosis: Crohn's Therapy Start Date: 04/2016 Contact in person or via telephone: Phone Mr. Igor Woodruff is a 47 y.o. [...] willing to proceed with the Clinical Assessment? No Summary and Recommendations: Igor had no questions or concerns regarding Humira and opted out of a follow up consult. He denies any adherence issues or adverse effects. The specialty pharmacy will reach out again at the next refill. Economic Assessment: Patient is agreeable to medication copay: Yes Copay Amount: n/a Day Supply: 28 Date Needed: 04/23/22 Therapy Assessment: Appropriate Therapy: Yes Current Medication Dosing/Route/Frequency: Humira 40mg/0.4ml PNKT inject 1 pen sq every week Additional equipment/supplies required: no Care Plan Reviewed and Approved by Pharmacist : Yes Problem List: Patient Active Problem List Diagnosis Code ??? 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 Abnormal liver function test R79.89 ??? GERD (gastroesophageal reflux disease) K21.9 Medications Reviewed: Yes Medications reconciled: No Allergies Reviewed:Yes Allergies reconciled: No Pharmacist follow-up needed: Yes Informed patient of specialty pharmacy services: Yes Welcome Packet and Rights and Responsibilities: Patient provided welcome packet/rights and responsibilities: Yes Date Confirmed: 11/20/17 Confirmation: Signature in [facility] -Patient is aware a licensed pharmacist is available 24 hours a day, 7 days a week to discuss medication-related questions or concerns: Yes -Patient verbalizes understanding of the common side effect profile of their medication. The patient is able to call 911 or seek urgent care if signs/symptoms of allergy or harmful adverse reactions occur: Yes Patient understands no changes to current drug regimen were made at the appointment and that the pharmacist is providing recommendations (summary located at top of note) for provider review and follow up. Ericka Abreu RPH 04/18/22 8:42 AM documented in this encounter Plan of Treatment Upcoming Encounters Date Type Department Care Team (Latest Contact Info) Description 04/01/2024 12:35 PM EST Hospital Encounter [place] [address] Apurva Vivas MD [facility] [place] [address] 04/01/2024 12:35 PM EST - 04/01/2024 2:17 PM EST Surgery [place] [address] Apurva Vivas MD [facility] [place] [address] ANORECTAL EXAM, REQUIRING ANESTHESIA, DIAGNOSTIC (WRVU 1.8) 04/26/2024 3:00 PM EST Office Visit [place] [address] Apurva Vivas MD [facility] [place] [address] Scheduled Procedures Name Priority Associated Diagnoses Date/Ti ms ANORECTAL EXAM, REQUIRING ANESTHESIA, DIAGNOSTIC (WRVU 1.8) perianal crohns disease w/fistula 04/01/2024 12:35 PM EST SURGICAL TREATMENT OF ANAL FISTULA COMPLEX OR MULTIPLE W\WO SETON PLACEMENT (WRVU 6.39) perianal crohns disease w/fistula 04/01/2024 12:35 PM EST documented as of this encounter Goals Goal Patient Goal Type Associated Problems Recent Progress Patient-Stated? Author [facility] Medication Compliance and Understanding Patient Facing [...] on filedocumented in this encounter Care Teams Electrician Ship Relationship Specialty Start Date End Date Irwin Gonsalez DO [address] [place] [address] PCP - General 05/01/11 documented as of this encounter
--- OUTSIDE RECORDS SUMMARY | 2024-03-10 01:57 | XMS_ITS | Encounter Summary ---
[place] [address] Care Team Providers Care Bondactor Machine Operator Name Role Phone Irwin Gonsalze DO Primary Care Provider [phone] Reason for Visit * Reason Comments Prior Authorization Humira Pen 40mg/0.4m L PNKT Encounter Details Date Type Department Care Team (Late st Contact Info) Description 04/21/2022 Specialty [place] [address] Marielle Colbert Social History Tobacco [...] encounter Progress Notes * Marielle Colbert - 04/21/2022 2:55 PM EST [facility], Benefits Investigation Patient: Igor Woodruff Patient : 1975 Patient Address: [address] [facility] [address] Phone: [phone] (home) Medication Name: HUMIRA(CF) PEN 40 MG/0.4 ML SUBCUTANEOUS KIT Medication ID: [id number] Patient Location: [facility] 4L Patient Location Comment: Medication Strength Frequency Requested: inject 40mg subcutaneously once every 7 days Qty/Day Supply: 07/11 New Start: Renewal Diagnosis & ICD-10 Code: Crohn's Disease Subscriber Insurance: [facility] Subscriber Insurance Comment: Fax: Physician: Ramonita MATAMOROS Physician Comment : PA Status: PA on File Insurance mandated Pharmacy: Fillable at [facility]: Insurance requirements/notes: None Copay: Copay assistance: Copay assistance comment: Pharmacy staff will be reaching out to the patient to inform them of their medication's approval bytheir insurance. If applicable, a pharmacist will speak with the patient to offer our specialty pharmacy services and to arrange delivery of their medication. Marielle Colbert 04/21/22 2:59 PM documented in this encounter Plan of Treatment Upcoming Encounters Date Type Department Care Team (Latest Contact Info) Description 04/01/2024 12:35 PM EST Hospital Encounter [place] [address] Apurva Vivas MD [facility] [place] [address] 04/01/2024 12:35 PM EST - 04/01/2024 2:17 PM EST [place] [address] Apurva Vivas MD [facility] [place] [address] ANORECTAL EXAM, REQUIRING ANESTHESIA, DIAGNOSTIC (WRVU 1.8) 04/26/2024 3:00 PM EST Office [place] [address] Apurva Vivas MD [facility] [place] [address] Scheduled Procedures Name Priority Associated Diagnoses Date/Ti [...] on filedocumented in this encounter Care Teams Bondactor Machine Operator Relationship Specialty Start Date End Date Irwin Gonsalez DO [address] [place] [address] PCP - General 05/01/11 documented as of this encounter
--- OUTSIDE RECORDS SUMMARY | 2024-03-10 01:57 | XMS_ITS | Encounter Summary ---
Author Organization [place] [address] Care Team Providers Care Family Living Educator Name Role Phone Irwin Gonsalez DO Primary Care Provider Reason for Visit * Reason Comments Specialty Pharmacy Review Humira 40mg/0. 4ml Pen Encounter Details Date Type Department Care Team (Late st Contact Info) Description 06/30/2022 Specialty [place] [phone] Osmin Kebede, SUPERINTENDENT DRILLING AND PRODUCTION Social History Tobacco Use Types Packs/Day Years [...] encounter Progress Notes * Osmin Kebede - 06/30/2022 11:59 PM EDT [facility] has completed a benefits investigation for Igor Sherine Woodruff to review their eligibility to fill at [facility]. Per patient's medication list they are prescribed Humira and the medication is not able to be filled at the [facility]. At this time insurance mandates this medication must be filled through [facility]. documented in this encounter Plan of Treatment Upcoming Encounters Date Type Department Care Team (Latest Contact Info) Description 04/01/2024 12:35 PM EST Hospital Encounter [place] [address] Apurva Vivas MD [facility] [place] [address] 04/01/2024 12:35 PM EST - 04/01/2024 2:17 PM EST Surgery [place] [address] Apurva Vivas MD [facility] [place] [address] ANORECTAL EXAM, REQUIRING ANESTHESIA, DIAGNOSTIC (WRVU 1.8) 04/26/2024 3:00 PM EST Office [place] [address] Apurva Vivas MD [facility] [place] [address] Scheduled Procedures Name Priority Associated Diagnoses Date/Ti [...] track( 017 9:39 PM EDT) Perri Hernandez, [facility] Note: Patient's specific desired goal: Igor [...] on filedocumented in this encounter Care Teams Family Living Educator Relationship Specialty Start Date End Date Irwin Gonsalez DO [address] [place] [address] [address] [place] [address] PCP - General 05/01/11 documented as of this encounter
--- OUTSIDE RECORDS SUMMARY | 2024-03-10 01:57 | XMS_ITS | Encounter Summary ---
[place] [address] Care Team Providers Care Vault Manager Name Role Phone Irwin Gonsalez DO Primary Care Provider Encounter Details Date Type Department Care Team (Late st Contact Info) Description 07/19/2021 Telephone [place] [address] Bibiana James Social History Tobacco Use Types Packs/Day Years [...] encounter Miscellaneous Notes * Telephone Encounter - Bibiana James - 07/19/2021 10:55 AM EDT Called pt and LVM.. wants pt to have a televisit w/ him around Sept documented in this encounter Plan of Treatment Upcoming Encounters Date Type Department Care Team (Latest Contact Info) Description 04/01/2024 12:35 PM EST Hospital Encounter [place] [address] Apurva Vivas MD [facility] [place] [address] 04/01/2024 12:35 PM EST - 04/01/2024 2:17 PM EST Surgery [place] [phone] Apurva Vivas MD [facility] [place] [address] ANORECTAL EXAM, REQUIRING ANESTHESIA, DIAGNOSTIC (WRVU 1.8) 04/26/2024 3:00 PM EST Office [place] [address] Apurva Vivas MD [facility] [place] [address] Scheduled Procedures Name Priority Associated Diagnoses Date/Ti me ANORECTAL EXAM, REQUIRING ANESTHESIA, DIAGNOSTIC (WRVU 1.8) perianal crohns disease w/fistula 04/01/2024 12:35 PM EST SURGICAL TREATMENT OF ANAL FISTULA COMPLEX OR MULTIPLE W\WO SETON PLACEMENT (WRVU 6.39) perianal crohns disease w/fistula 04/01/2024 12:35 PM EST documented as of this encounter Goals Goal Patient Goal Type Associated Problems Recent Progress Patient-Stated? Author [facility] Medication Compliance and Understanding Patient Facing Action Plan On track( 017 9:39 PM EDT) Perri Hernandez, [facility] Note: Patient's specific desired goal: Igor would [...] on filedocumented in this encounter Care Teams Vault Manager Relationship Specialty Start Date End Date Irwin Gonsalez DO [address] [place] [address] PCP - General 05/01/11 documented as of this encounter
--- OUTSIDE RECORDS SUMMARY | 2024-03-10 01:57 | XMS_ITS | Encounter Summary ---
Author Organization [facility] Address [facility] [place] [address] Care Team Providers Care Extension Specialist Name Role Phone Irwin Gonsalez DO Primary Care Provider Encounter Details Date Type Department Care Team (Late st Contact Info) Description 04/18/2021 Refill [place] [address] Ramonita Pandey MD [facility] [place] [address] Social History Tobacco Use Types Packs/Day Years [...] PM EST Hospital Encounter [place] [phone] Apurva Vivas MD [facility] [place] [place] [address] 04/01/2024 12:35 PM EST - 04/01/2024 2:17 PM EST Surgery [place] [address] Apurva Vivas MD [facility] [place] [place] [address] ANORECTAL EXAM, REQUIRING ANESTHESIA, DIAGNOSTIC (WRVU 1.8) 04/26/2024 3:00 PM EST Office [place] [phone] Apurva Vivas MD [facility] [place] [address] Scheduled Procedures Name Priority Associated Diagnoses Date/Ti [...] 017 9:39 PM EDT) No Perri Sousa, [facility] Note: Patient's specific desired goal: Igor [...] on filedocumented in this encounter Care Teams Extension Specialist Relationship Specialty Start Date End Date Irwin Gonsalez DO [address] [place] [address] [address] [place] [address] PCP - General 05/01/11 documented as of this encounter
--- OUTSIDE RECORDS SUMMARY | 2024-03-10 01:57 | XMS_ITS | Encounter Summary ---
[place] [address] Care Team Providers Care Speech And Hearing Clinic Director Name Role Phone Irwin Gonsalez DO Primary Care Provider Reason for Visit * Reason Comments Medication Refill Medication Management Encounter Details Date Type Department Care Team (Late st Contact Info) Description 07/10/2021 Specialty [place] [address] Rhea Aldridge RPH Social History [...] Progress Notes * Rhea Aldridge RPH - 07/10/2021 10:26 AM EDT Clinical Management Plan: Refill Specialty Pharmacy Consultation; Rhea Aldridge RPH Comprehensive Medication Management (CMM) Igor Sherine Kacy Mr. Igor Woodruff is a 46 y.o. [...] No Specialty Pharmacy Refill Questionnaire Refill Questionnaire 07/10/2021 What is the name of the specialty medication you are refilling? Humira Are you taking any new medications? No Any new medical condition? No Any new allergies? No Any new side effects that are bothersome? No What date will you need this fill by? 07/17/2021 Adherence: Any missed doses? No Patient understands no changes to current drug regimen were made. Rhea Aldridge RPH 07/10/21 10:28 AM documented in this encounter Plan of Treatment Upcoming Encounters Date Type Department Care Team (Latest Contact Info) Description 04/01/2024 12:35 PM EST Hospital Encounter [place] [address] Apurva Vivas MD [facility] [place] [address] 04/01/2024 12:35 PM EST - 04/01/2024 2:17 PM EST Surgery [place] [address] Apurva Vivas MD [facility] [place] [address] ANORECTAL EXAM, REQUIRING ANESTHESIA, DIAGNOSTIC (WRVU 1.8) 04/26/2024 3:00 PM EST Office [place] [address] Apurva Vivas MD [facility] [place] [address] Scheduled Procedures Name Priority Associated Diagnoses Date/Ti [...] on filedocumented in this encounter Care Teams Speech And Hearing Clinic Director Relationship Specialty Start Date End Date Irwin Gonsalez DO [address] [place] [address] [address] [place] [address] PCP - General 05/01/11 documented as of this encounter
--- OUTSIDE RECORDS SUMMARY | 2024-03-10 01:57 | XMS_ITS | Encounter Summary ---
Author Organization [facility] Address [facility] [place] [address] Care Team Providers Care Tie Tamper Name Role Phone Irwin Gonsalez DO Primary Care Provider [phone] Encounter Details Date Type Department Care Team (Late st Contact Info) Description 11/29/2021 Refill [place] [phone] Ramonita Pandey MD [facility] [place] [address] Social History Tobacco Use Types Packs/Day Years [...] PM EST Hospital Encounter [place] [phone] Apurva Vivas MD [facility] [place] [address] 04/01/2024 12:35 PM EST - 04/01/2024 2:17 PM EST Surgery [place] [address] Apurva Vivas MD [facility] [place] [address] ANORECTAL EXAM, REQUIRING ANESTHESIA, DIAGNOSTIC (WRVU 1.8) 04/26/2024 3:00 PM EST Office Visit [place] [phone] Apurva Vivas MD [facility] [place] [address] Scheduled Procedures Name Priority Associated Diagnoses Date/Ti [...] on filedocumented in this encounter Care Teams Tie Tamper Relationship Specialty Start Date End Date Irwin Gonsalez DO [address] [place] [address] [address] [place] [address] PCP - General 05/01/11 documented as of this encounter
--- OUTSIDE RECORDS SUMMARY | 2024-03-10 01:57 | XMS_ITS | Encounter Summary ---
[place] [address] Care Team Providers Care Engine Boss Name Role Phone Irwin Gonsalez DO Primary Care Provider [phone] Reason for Visit * Reason Comments Specialty Refill Management Encounter Details Date Type Department Care Team (Late st Contact Info) Description 11/29/2021 Specialty [place] [phone] Amirah Cano CPHT Social History Tobacco Use [...] Progress Notes * Amirah Cano CPHT - 11/29/2021 9:53 AM EDT Clinical Management Plan: Refill Specialty [...] Known Allergies Medication Reconciliation Discrepancies (compared to [facility] med list) No Specialty Pharmacy Refill Questionnaire Refill Questionnaire 11/29/2021 What is the name of the specialty medication you are refilling? Humira Are you taking any new medications? No Any new medical condition? No Any new allergies? No Any new side effects that are bothersome? No What date will you need this fill by? 12/05/2021 Adherence: Any missed doses? No Patient understands no changes to current drug regimen were made. Amirah Cano CPHT 11/29/21 9:54 AM documented in this encounter Plan of Treatment Upcoming Encounters Date Type Department Care Team (Latest Contact Info) Description 04/01/2024 12:35 PM EST Hospital Encounter [place] [address] Apurva Vivas MD [facility] [place] [address] 04/01/2024 12:35 PM EST - 04/01/2024 2:17 PM EST Surgery [place] [address] Apurva Vivas MD [facility] [place] [address] ANORECTAL EXAM, REQUIRING ANESTHESIA, DIAGNOSTIC (WRVU 1.8) 04/26/2024 3:00 PM EST Office [place] [address] Apurva Vivas MD [facility] [place] [address] Scheduled Procedures Name Priority Associated Diagnoses Date/Ti [...] 9:39 PM EDT) Perri Hernandez, [facility] Note: Patient's specific desired goal: [...] on filedocumented in this encounter Care Teams Engine Boss Relationship Specialty Start Date End Date Irwin Gonsalez DO [address] [place] [address] [address] [place] [address] PCP - General 05/01/11 documented as of this encounter
--- OUTSIDE RECORDS SUMMARY | 2024-03-10 01:57 | XMS_ITS | Encounter Summary ---
[place] [address] Care Team Providers Care Bander Operator Name Role Phone Irwin Gonsalez DO Primary Care Provider Reason for Visit * Reason Comments Medication Management Patient Education Encounter Details Date Type Department Care Team (Late st Contact Info) Description 11/01/2021 Specialty [place] [address] Dena Dey RPH Social History Tobacco Use Types Packs/Day [...] as of this encounter Progress Notes * Dena Dey RPH - 11/01/2021 3:37 PM EDT Specialty Pharmacy Consultation; Dena Dey RPH Comprehensive Medication Management (CMM) Igor Woodruff Diagnosis: Crohn's disease Therapy Start Date: 04/2016 Contact in person or via telephone:Telephone Mr. Igor Woodruff is a 46 y.o. (1975) male who was contacted in regard to specialty medication. Spoke with patient regarding Humira. A review of the medication therapy was performed. The medication was Filled as scheduled, and all medication related questions and concerns were addressed. The specialty pharmacy staff will follow up with the patient 5-7 days prior to next refill. Is the patient willing to proceed with the Clinical Assessment? Yes Summary and Recommendations: Igor Woodruff is a very pleasant 46 y.o. male who was contacted regarding his specialty medication, Humira. The patient inquired about potential adverse effects of Humira - specifically it's affects on blood pressure. I educated patient that there should not be any increased blood pressure risk with Humira. I reviewed the data regarding CHF risk in TNF inhibitors as the patient mentioned he read about that and explaining the studies and risks to patient's who already are diagnosed with CHFor have a family history of such. We reviewed lifestyle modifications for lowering blood pressure including exercise, eating healthy and weight loss. We reviewed his current blood pressure medications (amlodipine 5 mg and losartan 100 mg) and reviewed there are a few combinations of blood pressure lowering agents within the guidelines that he could speak with his provider about following any potential lifestyle modifications. I have no further recommendations at this time. Clinic follow-up needed: yes - routine clinic follow up Allergies and Drug intolerance: No Known Allergies Problem List: Patient Active Problem List Diagnosis Code ??? 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 Abnormal liver function test R79.89 ??? GERD (gastroesophageal reflux disease) K21.9 Special Dietary or Hydration Requirements: no Medication Reconciliation Discrepancies (compared to [facility] med list) yes - added HTN meds Medication List: Current Outpatient Medications Medication Sig Dispense Refill ??? amLODIPine (Norvasc) 5 mg Tablet Take 5 mg by mouth daily. ??? losartan (COZAAR) 100 mg Tablet Take 100 mg by mouth daily. ??? adalimumab (Humira,CF, Pen) 40 mg/0.4 mL Pen Injector Kit Inject the contents of one pen (40 mg) subcutaneously once every 7 days. 2 kit 5 ??? colestipoL (COLESTID) 1 gram Tablet Take 1 tablet by mouth 2 times daily. 60 tablet 3 ??? acetaminophen (TYLENOL) 325 mg Tablet Take 2 tablets by mouth every 4 hours as needed for Pain.30 tablet 1 ??? alfuzosin (UROXATRAL) 10 mg Tablet Sustained Release 24 hr TAKE ONE TABLET BY MOUTH EVERY DAY 12 ??? multivitamin (THERAGRAN) Tablet Take 1 tablet by mouth daily. ??? esomeprazole (NEXIUM) 20 mg capsule Take 20 mg by mouth every morning (before breakfast). No current facility-administered medications for this visit. Most Recent Vitals: Ht Readings from Last 1 Encounters: 05/23/21 182.9 cm (6') Wt Readings from Last 3 Encounters: 05/23/21 106.6 kg (235 lb) 10/13/19 101.2 kg (223 lb) 11/01/18 105.9 kg (233 lb 6.4 oz) Temp Readings from Last 3 Encounters: 05/23/21 36.3 ??C (97.3 ??F) (Temporal) 10/13/19 36.9 ??C (98.4 ??F) 06/04/16 36.7 ??C (98.1 ??F) BP Readings from Last 3 Encounters: 05/23/21 (!) 139/116 10/13/19 133/90 11/01/18 (!) 144/103 Pulse Readings from Last 3 Encounters: 05/23/21 91 10/13/19 86 11/01/18 87 There is no height or weight on [...] specialty services: Yes Patient accepted offer to vocational guidance counselor: possible adverse side effects and management, therapeutic rationale Medication Management Summary Time spent: 1-15 min Treatment Outcomes 11/01/2021 1542 Disease progression: Stable Patient Overall Status: Stable [...] Social Assessment: Does patient have a primary healthcare administrative assistant: No Does patient have an emergency contact on file: Yes Does patient need referral to social welfare administrator: No Does patient need referral to advocacy [...] Yes Date Confirmed: 11/20/17 Confirmation: Signature in [employer] Specialty Med Adherence Patient Demonstrates Understanding of Importance of Adherence: Yes Educational Information or Adherence Tools Provided: Yes Patient Reported X Missed Doses in the Last Month: 0 Provider-Estimated Medication Adherence Level: 90-100% Adherence Tools Used: directed education Therapy Assessment: Current Medication Dosing/Route/Frequency: Humira 40 mg inject 1 pen subcutaneously every 7 days Appropriate Therapy: Yes Effective: Yes Current GI-related Symptoms/Pain: no Recent GI Flaring: no Recent Systemic Corticosteroid Use: no Relapsing/Remitting Factors: no Patient-Reported Side Effects: no Recent Infections: no Patient Goals: Patient's specific desired goal: Continued remission Measured by: Patient report and imaging studies Time-frame to meet goal: Ongoing Is the patient on track to achieve goals of therapy? Yes If no, what are the barriers and action plan to reach the goal: N/A Care Plan and Interventions: Care Plan Reviewed and Approved by both Pharmacist and Patient: Yes Did Care Plan Change? No Interventions (if applicable): no Patient experienced change in condition that affects treatment: no Patient Counseling: Utilizing appropriate injection technique: Yes Rotation of Injection Sites: Yes Room Temperature Medication at Time of Injection: Yes Patient Satisfied with Therapy: Yes Pharmacist follow-up needed: Yes Patient understands no changes to current drug regimen were made at the appointment and that [facility] isproviding recommendations (summary located at top of note) for provider review and follow up. Dena Dey RPH 11/01/21 3:42 PM documented in this encounter Plan of Treatment Upcoming Encounters Date Type Department Care Team (Latest Contact Info) Description 04/01/2024 12:35 PM [facility] Hospital Encounter [place] [phone] Apurva Vivas MD [facility] [place] [address] 04/01/2024 12:35 PM EST - 04/01/2024 2:17 PM EST Surgery [place] [phone] Apurva Vivas MD [facility] [place] [address] ANORECTAL EXAM, REQUIRING ANESTHESIA, DIAGNOSTIC (WRVU 1.8) 04/26/2024 3:00 PM EST Office [place] [phone] Apurva Vivas MD [facility] [place] [address] Scheduled Procedures Name Priority Associated Diagnoses Date/Ti me ANORECTAL EXAM, REQUIRING ANESTHESIA, DIAGNOSTIC (WRVU 1.8) perianal crohns disease w/fistula 04/01/2024 12:35 PM EST SURGICAL TREATMENT OF ANAL FISTULA COMPLEX OR MULTIPLE W\WO SETON PLACEMENT (WRVU 6.39) perianal crohns disease w/fistula 04/01/2024 12:35 PM EST documented as of this encounter Goals Goal Patient Goal Type Associated Problems Recent Progress Patient-Stated? Author [facility] Medication Compliance and Understanding Patient Facing Action Plan On track( 017 9:39 PM EDT) No Perri Sousa, [facility] Note: Patient's specific desired goal: Igor would [...] on filedocumented in this encounter Care Teams Bander Operator Relationship Specialty Start Date End Date Irwin Gonsalez DO [facility] [address] [place] [address] PCP - General 05/01/11 documented as of this encounter
--- OUTSIDE RECORDS SUMMARY | 2024-03-10 01:57 | XMS_ITS | Encounter Summary ---
Author Organization [facility] Address [facility] [place] [address] Care Team Providers Care Tree Surgeon Name Role Phone Irwin Gonsalez DO Primary Care Provider Encounter Details Date Type Department Care Team (Late st Contact Info) Description 04/21/2022 [place] [phone] Ramonita Pandey MD [facility] [place] [address] Social History Tobacco Use Types Packs/Day Years [...] PM EST Hospital Encounter [place] [phone] Apurva Vivas MD [facility] [place] [address] 04/01/2024 12:35 PM EST - 04/01/2024 2:17 PM EST Surgery [place] [address] Apurva Vivas MD [facility] [place] [address] ANORECTAL EXAM, REQUIRING ANESTHESIA, DIAGNOSTIC (WRVU 1.8) 04/26/2024 3:00 PM EST Office [place] [phone] Apurva Vivas MD [facility] [place] [address] Scheduled Procedures Name Priority Associated Diagnoses Date/Ti [...] on filedocumented in this encounter Care Teams Tree Surgeon Relationship Specialty Start Date End Date Irwin Gonsalez DO [address] [place] [address] [address] [place] [address] PCP - General 05/01/11 documented as of this encounter
--- OUTSIDE RECORDS SUMMARY | 2024-03-10 01:57 | XMS_ITS | Encounter Summary ---
[place] [address] Care Team Providers Care Filer And Sander Name Role Phone Irwin Gonsalez DO Primary Care Provider [phone] Reason for Visit * Reason Comments Prior Authorization Humira 40mg/0.4mL PN KT Encounter Details Date Type Department Care Team (Late st Contact Info) Description 11/20/2022 Specialty [place] [address] Zainab Herrmann, [facility] Social History Tobacco Use Types Packs/Day [...] encounter Progress Notes * Zainab Herrmann - 11/20/2022 5:37 PM EDT [facility], Medication Prior Authorization Submission Patient: Igor Woodruff Patient : 1975 Patient Address: [address] [facility] [address] Phone: [phone] (home) Medication Name: HUMIRA(CF) PEN 40 MG/0.4 ML SUBCUTANEOUS KIT Medication ID: [id number] Subscriber Insurance: Unable to find Subscriber Insurance Comment: Isaac BAILEE ([facility]) Fax: Physician: Ramonita MATAMOROS Physician Comment: Sent Via: Telephone Orellana: Ref/Case/PA#: [id number] Medication Strength Frequency Requested: Humira 40mg/0.4mL, INJECT 1 PEN UNDER THE SKIN EVERY 7 DAYS. 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 Other Notes: None Case/Reference #: [id number] Approval notification Received via: Telephone Copay: N/A - unable to determine due to insurance mandate Copay assistance: Copay Notes: Insurance mandated Pharmacy: TBD Fillable at [facility]: No Patient Notified: No Pharmacy staff will be reaching out to the patient to inform them of their medication's [place] [facility]. If applicable, a pharmacist will speak with the patient to offer our specialty pharmacy services and to arrange delivery of their medication. Marielle Colbert 11/25/22 12:11 PM documented in this encounter Plan of Treatment Upcoming Encounters Date Type Department Care Team (Latest Contact Info) Description 04/01/2024 12:35 PM EST Hospital Encounter [place] [address] Apurva Vivas MD [facility] [place] [address] 04/01/2024 12:35 PM EST - 04/01/2024 2:17 PM EST Surgery [place] [phone] Apurva Vivas MD [facility] [place] [address] ANORECTAL EXAM, REQUIRING ANESTHESIA, DIAGNOSTIC (WRVU 1.8) 04/26/2024 3:00 PM EST Office Visit [place] [phone] Apurva Vivas MD [facility] [place] [address] Scheduled Procedures Name Priority Associated Diagnoses Date/Ti [...] track( 017 9:39 PM EDT) Perri Hernandez, [facility] Note: Patient's specific desired [...] on filedocumented in this encounter Care Teams Filer And Sander Relationship Specialty Start Date End Date Irwin Gonsalez DO [address] [place] [address] [address] [place] [address] PCP - General 05/01/11 documented as of this encounter
--- OUTSIDE RECORDS SUMMARY | 2024-03-10 01:57 | XMS_ITS | Encounter Summary ---
[place] [address] Care Team Providers Care Surface Ship Usw Supervisor Name Role Phone Irwin Gonsalez DO Primary Care Provider Reason for Visit * Reason Comments Specialty Refill Management Encounter Details Date Type Department Care Team (Late st Contact Info) Description 12/26/2021 Specialty [place] [phone] Amirah Cano CPHT Social History Tobacco Use [...] Progress Notes * Amirah Cano CPHT - 12/26/2021 11:38 AM EDT Clinical Management Plan: Refill Specialty [...] Known Allergies Medication Reconciliation Discrepancies (compared to [facility] med list) No Specialty Pharmacy Refill Questionnaire Refill Questionnaire 12/26/2021 What is the name of the specialty medication you are refilling? Humira Are you taking any new medications? No Any new medical condition? No Any new allergies? No Any new side effects that are bothersome? No What date will you need this fill by? 01/02/2022 Adherence: Any missed doses? No Patient understands no changes to current drug regimen were made. Amirah Cano CPHT 12/26/21 11:38 AM documented in this encounter Plan of Treatment Upcoming Encounters Date Type Department Care Team (Latest Contact Info) Description 04/01/2024 12:35 PM EST Hospital Encounter [place] [address] Apurva Vivas MD [facility] [place] [address] 04/01/2024 12:35 PM EST - 04/01/2024 2:17 PM EST Surgery [place] [address] Apurva Vivas MD [facility] [place] [address] ANORECTAL EXAM, REQUIRING ANESTHESIA, DIAGNOSTIC (WRVU 1.8) 04/26/2024 3:00 PM EST Office Visit [place] [address] Apurva Vivas MD [facility] [place] [address] Scheduled Procedures Name Priority Associated Diagnoses Date/Ti [...] 9:39 PM EDT) Perri Hernandez, [facility] Note: Patient's specific desired goal: Igor would [...] on filedocumented in this encounter Care Teams Surface Ship Usw Supervisor Relationship Specialty Start Date End Date Irwin Gonsalez DO [address] [place] [address] [address] [place] [address] PCP - General 05/01/11 documented as of this encounter
--- OUTSIDE RECORDS SUMMARY | 2024-03-10 01:57 | XMS_ITS | Encounter Summary ---
Author Organization [facility] Address [facility] [place] [address] Care Team Providers Care Card Room Manager Name Role Phone Irwin Gonsalez DO Primary Care Provider [phone] Encounter Details Date Type Department Care Team (Late st Contact Info) Description 04/09/2021 [place] [address] Ramonita Pandey MD [facility] [place] [address] Social History Tobacco Use Types Packs/Day Years [...] PM EST Hospital Encounter Main [place] [phone] Apurva Vivas MD [facility] [place] [address] 04/01/2024 12:35 PM EST - 04/01/2024 2:17 PM EST Surgery [place] [address] Apurva Vivas MD [facility] [place] [address] ANORECTAL EXAM, REQUIRING ANESTHESIA, DIAGNOSTIC (WRVU 1.8) 04/26/2024 3:00 PM EST Office [place] [address] Apurva Vivas MD [facility] [place] [address] Scheduled Procedures Name Priority Associated Diagnoses Date/Ti [...] PM EDT) No Perri Sousa, [facility] Note: Patient's specific [...] on filedocumented in this encounter Care Teams Card Room Manager Relationship Specialty Start Date End Date Irwin Gonsalez DO [address] [place] [address] [address] [place] [address] PCP - General 05/01/11 documented as of this encounter
--- OUTSIDE RECORDS SUMMARY | 2024-03-10 01:57 | XMS_ITS | Encounter Summary ---
[place] [address] Care Team Providers Care Corporate Travel Consultant Name Role Phone Irwin Gonsalez DO Primary Care Provider Reason for Visit * Reason Comments Medication Management Specialty Refill Management Encounter Details Date Type Department Care Team (Late st Contact Info) Description 10/04/2021 Specialty [place] [address] Mansoor Sapp Sunday Social History Tobacco Use Types Packs/Day Years [...] as of this encounter Progress Notes * Mansoor Sapp RPH - 10/04/2021 3:15 PM EDT Clinical Management Plan: Refill Specialty Pharmacy Consultation; Mansoor Sapp Sunday Comprehensive Medication Management (CMM) Igor Sherine Mayitorobertjoshua [...] Allergies Medication Reconciliation Discrepancies (compared to [facility] med list) No Specialty Pharmacy Refill Questionnaire Refill Questionnaire 10/04/2021 What is the name of the specialty medication you are refilling? humira Are you taking any new medications? No Any new medical condition? No Any new allergies? No Any new side effects that are bothersome? No What date will you need this fill by? 10/11/2021 Adherence: Any missed doses? No Patient understands no changes to current drug regimen were made. Mansoor Sapp RPH 10/04/21 3:17 PM documented in this encounter Plan of Treatment Upcoming Encounters Date Type Department Care Team (Latest Contact Info) Description 04/01/2024 12:35 PM EST Hospital Encounter [place] [address] Apurva Vivas MD [facility] [place] [address] 04/01/2024 12:35 PM EST - 04/01/2024 2:17 PM EST Surgery [place] [address] Apurva Vivas MD [facility] [place] [address] ANORECTAL EXAM, REQUIRING ANESTHESIA, DIAGNOSTIC (WRVU 1.8) 04/26/2024 3:00 PM EST Office [place] [address] Apurva Vivas MD [facility] [place] [address] Scheduled Procedures Name Priority Associated Diagnoses Date/Ti [...] on filedocumented in this encounter Care Teams Corporate Travel Consultant Relationship Specialty Start Date End Date Irwin Gonsalez DO [address] [place] [address] [address] [facility] [address] [place] [address] PCP - General 05/01/11 documented as of this encounter
--- OUTSIDE RECORDS SUMMARY | 2024-03-10 01:57 | XMS_ITS | Encounter Summary ---
[place] [address] Care Team Providers Care Legal Internship Name Role Phone Irwin Gonsalez DO Primary Care Provider Reason for Visit * Reason Comments Specialty Refill Management Encounter Details Date Type Department Care Team (Late st Contact Info) Description 03/19/2021 Specialty [place] [address] Vidya Santana, MARINE MECHANIC Social History Tobacco Use Types Packs/Day Years [...] encounter Progress Notes * Vidya Santana - 03/19/2021 2:49 PM EST Clinical Management Plan: Refill Specialty Pharmacy Consultation; Vidya Santana Comprehensive Medication Management (CMM) Igor Sherine Monzonjoshua [...] Known Allergies Medication Reconciliation Discrepancies (compared to [facility] med list) No Specialty Pharmacy Refill Questionnaire Refill Questionnaire 03/19/2021 What is the name of the specialty medication you are refilling? Humira Pen 40MG/0.4ML PNKT Are you taking any new medications? No Any new medical condition? No Any new allergies? No Any new side effects that are bothersome? No What date will you need this fill by? 03/26/2021 Adherence: Any missed doses? No Patient understands no changes to current drug regimen were made. Vidya Santana 03/19/21 2:50 PM documented in this encounter Plan of Treatment Upcoming Encounters Date Type Department Care Team (Latest Contact Info) Description 04/01/2024 12:35 PM EST Hospital Encounter [place] [address] Apurva Vivas MD [facility] [place] [address] 04/01/2024 12:35 PM EST - 04/01/2024 2:17 PM EST Surgery [place] [address] Apurva Vivas MD [facility] [place] [address] ANORECTAL EXAM, REQUIRING ANESTHESIA, DIAGNOSTIC (WRVU 1.8) 04/26/2024 3:00 PM EST Office Visit [place] [address] Apurva Vivas MD [facility] [place] [address] Scheduled Procedures Name Priority Associated Diagnoses Date/Ti [...] PM EDT) No Perri Sousa, [facility] Note: Patient's [...] filedocumented in this encounter Care Teams Legal Internship Relationship Specialty Start Date End Date Irwin Gonsalez DO [address] [place] [address] PCP - General 05/01/11 documented as of this encounter
--- OUTSIDE RECORDS SUMMARY | 2024-03-10 01:58 | XMS_ITS | Encounter Summary ---
[place] [address] Care Team Providers Care Salvage Worker Name Role Phone Irwin Gonsalez DO Primary Care Provider Encounter Details Date Type Department Care Team (Late st Contact Info) Description 03/05/2020 Telephone [place] [id number] Jonathan Landers Social History Tobacco Use Types Packs/Day Years [...] encounter Miscellaneous Notes * Telephone Encounter - Jonathan Landers - 03/05/2020 10:27 AM EST Placed outgoing phone call to patient in order to schedule a procedure. Phone Call Outcome: Left voicemail asking for return call. This was the 1st attempt documented in this encounter Plan of Treatment Upcoming Encounters Date Type Department Care Team (Latest Contact Info) Description 04/01/2024 12:35 PM EST Hospital Encounter Main Operating Room [facility] [address] Apurva Vivas MD [facility] [place] [address] 04/01/2024 12:35 PM EST - 04/01/2024 2:17 PM EST Surgery [place] [address] Apurva Vivas MD [facility] [place] [address] ANORECTAL EXAM, REQUIRING ANESTHESIA, DIAGNOSTIC (WRVU 1.8) 04/26/2024 3:00 PM EST Office Visit [place] [phone] Apurva Vivas MD [facility] [place] [address] Scheduled Procedures Name Priority Associated Diagnoses Date/Ti [...] Perri Hernandez, [facility] Note: [...] on filedocumented in this encounter Care Teams Salvage Worker Relationship Specialty Start Date End Date Irwin Gonsalez DO [address] [facility] [address] [place] [address] PCP - General 05/01/11 documented as of this encounter
--- OUTSIDE RECORDS SUMMARY | 2024-03-10 01:58 | XMS_ITS | Encounter Summary ---
[place] [address] Care Team Providers Care Remedy Developer Name Role Phone Irwin Gonsalez DO Primary Care Provider Reason for Visit * Reason Comments Medication Management Encounter Details Date Type Department Care Team (Late st Contact Info) Description 10/25/2019 Specialty [place] [phone] Manolo Gonzalez RPH Social History Tobacco Use Types Packs/Day [...] as of this encounter Progress Notes * Manolo Jarvis RPH - 10/25/2019 1:57 PM EDT Clinical Management Plan: Refill Specialty Pharmacy Consultation; Manolo Jarvis RPH Comprehensive Medication Management (CMM) Igor Sherine Mayitorobertjoshua Mr. Igor Woodruff is a 44 y.o. (1975) male who was contacted in regard to a specialty medication refill reminder. Spoke with patient regarding Humira. A review of the medication therapy wasperformed. The medication was Refilled as scheduled, and all medication related questions and concerns were addressed. The specialty pharmacy staff will follow up with the patient 5-7 days prior to next refill. Was a change made to the Care Plan: no If yes, should the medication be held: No Assessment and Recommendations: Title Type of Medication Management: chronic disease management, targeted medication review Referred By: provider Recipient: beneficiary Provider: plan sponsor pharmacist [place] [facility] [place] Method of Contact: by telephone Cognitive Ability: good Cognitive Impairment Status Verified this Year: no Allergies and Drug intolerance: No Known Allergies Medication Reconciliation Discrepancies (compared to [facility] med list) -None New medications: no New medical conditions: no New allergies: no Adherence: Medication Adherence Patient reported X missed doses in the last month: 0 Any gaps in refill history greater than 2 weeks in the last 3 months: no Demonstrates understanding of importance of adherence: yes Informant: patient Reliability of informant: reliable Provider-estimated medication adherence level: 90-100% Reasons for non-adherence: no problems identified Adherence tools used: calendar, directed education Support network for adherence: healthcare provider Confirmed plan for next specialty medication refill: delivery by pharmacy Refills needed for supportive medications: not needed Are you experiencing any side effects from your medications? no Pt understands no changes to current drug regimen were made at the appointment and that [facility] is providing recommendations (summary located at top of note) for provider review and follow up. Manolo Jarvis RPH 10/25/19 1:58 PM documented in this encounter Plan of Treatment Upcoming Encounters Date Type Department Care Team (Latest Contact Info) Description 04/01/2024 12:35 PM EST Hospital Encounter [place] [address] Apurva Vivas MD [facility] [place] [address] 04/01/2024 12:35 PM EST - 04/01/2024 2:17 PM EST Surgery [place] [address] Apurva Vivas MD [facility] [place] [address] ANORECTAL EXAM, REQUIRING ANESTHESIA, DIAGNOSTIC (WRVU 1.8) 04/26/2024 3:00 PM EST Office [place] [phone] Apurva Vivas MD [facility] [place] [address] Scheduled Procedures Name Priority Associated Diagnoses Date/Ti [...] on filedocumented in this encounter Care Teams Remedy Developer Relationship Specialty Start Date End Date Irwin Gonsalez DO [address] [place] [address] [address] [place] [address] PCP - General 05/01/11 documented as of this encounter
--- OUTSIDE RECORDS SUMMARY | 2024-03-10 01:58 | XMS_ITS | Encounter Summary ---
[place] [address] Care Team Providers Care Cma Or Lpn Name Role Phone Irwin Gonsalez DO Primary Care Provider Reason for Visit * Reason Comments Medication Management Encounter Details Date Type Department Care Team (Late st Contact Info) Description 03/20/2020 Specialty [place] [address] Mansoor Sapp [facility] Social History Tobacco Use Types Packs/Day Years [...] Progress Notes * Mansoor Sapp RPH - 03/20/2020 4:32 PM EST Clinical Management Plan: Refill Specialty Pharmacy Consultation; Mansoor Sapp Sunday Comprehensive Medication Management (CMM) Igor Monzonjoshua Mr. Igor Woodruff is a 45 y.o. (1975) male who was contacted in [...] beneficiary Provider: plan sponsor pharmacist [place] [facility] [place] Method of Contact: by telephone Cognitive Ability: good Cognitive Impairment Status Verified this Year: no Allergies and Drug intolerance: No Known Allergies Medication Reconciliation Discrepancies (compared to [facility] med list) -none New medications: no New medical conditions: no [...] were made at the appointment and that [facility] is providing recommendations (summary located at top of note) for provider review and follow up. Mansoor Sapp RPH 03/20/20 4:33 PM documented in this encounter Plan of Treatment Upcoming Encounters Date Type Department Care Team (Latest Contact Info) Description 04/01/2024 12:35 PM EST Hospital Encounter [place] [address] Apurva Vivas MD [facility] [place] [address] 04/01/2024 12:35 PM EST - 04/01/2024 2:17 PM EST Surgery [place] [address] Apurva Vivas MD [facility] [place] [address] ANORECTAL EXAM, REQUIRING ANESTHESIA, DIAGNOSTIC (WRVU 1.8) 04/26/2024 3:00 PM EST Office Visit General Surgery at [facility] [place] [address] Apurva Vivas MD [facility] [place] [address] Scheduled Procedures Name Priority Associated Diagnoses Date/Ti me ANORECTAL EXAM, REQUIRING ANESTHESIA, DIAGNOSTIC (WRVU 1.8) perianal crohns disease w/fistula 04/01/2024 12:35 PM EST SURGICAL TREATMENT OF ANAL FISTULA COMPLEX OR MULTIPLE W\WO SETON PLACEMENT (WRVU 6.39) perianal crohns disease w/fistula 04/01/2024 12:35 PM EST documented as of this encounter Goals Goal Patient Goal Type Associated Problems Recent Progress Patient-Stated? Author [facility] Medication Compliance and Understanding Patient Facing Action Plan On track( 017 9:39 PM EDT) No Perri Sousa, [facility] Note: Patient's specific desired goal: [...] on filedocumented in this encounter Care Teams Cma Or Lpn Relationship Specialty Start Date End Date Irwin Gonsalez DO [address] [place] [address] [address] [place] [address] PCP - General 05/01/11 documented as of this encounter
--- OUTSIDE RECORDS SUMMARY | 2024-03-10 01:58 | XMS_ITS | Encounter Summary ---
[place] [address] Care Team Providers Care Prep Manager Name Role Phone Irwin Gonsalez DO Primary Care Provider Reason for Visit * Reason Comments Medication Management Patient Education Encounter Details Date Type Department Care Team (Late st Contact Info) Description 10/29/2020 Specialty [place] [address] Brent Tripp RPH Social History Tobacco Use Types Packs/Day [...] as of this encounter Progress Notes * Brent Tripp RPH - 10/29/2020 12:49 PM EDT Specialty Pharmacy Consultation; Brent Tripp RPH Comprehensive Medication Management (CMM) Igor Sherine Kacy Diagnosis: Crohn's Disease Therapy Start Date: 04/2016 Contact in person or via telephone:phone Mr. Igor Woodruff is a 45 y.o. (1975) male who was contacted in regard to specialty medication. Spoke with patient regarding humira. A review of the medication therapy was performed. The medication was Filled as scheduled, and all medication related questions and concerns were addressed. The specialty pharmacy staff will follow up with the patient 5-7 days prior to next refill. Is the patient willing to proceed with the Clinical Assessment? Yes Summary and Recommendations: Today I spoke to Igor Woodruff for a 6 month follow up consult on his humira therapy. We went over all of his medications, allergies, and medical conditions without finding any issues. He reports that he is doing well on the humira therapy. He has no side effects or injection issues to report.He takes his injections every Thursday and has not missed any doses. He states that he has no questions or concerns to report today and he knows that he can always reach out to us here at the pharmacy if any arise. There are no reported signs or symptoms of infections and he knows to call us if any come up. He states that for the most part his Crohn's is under control at this time. He had a slight f lare last month for a few days after eating sunflower seeds, but as long as he is watching out for triggers in his diet his condition is manageable. He had no questions at this time. We will continueto reach out to him monthly for refills and then biannually going forward for full consults. Clinic follow-up needed: no Allergies and Drug intolerance: No Known Allergies Problem List: Patient Active Problem List Diagnosis Code ??? 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 Abnormal liver function test R94.5 ??? GERD (gastroesophageal reflux disease) K21.9 Special Dietary or Hydration Requirements: no There is no height or weight on file to calculate BMI. Medication Reconciliation Discrepancies (compared to [facility] med list) no Medication Adherence Patient reported X missed doses in the last month: 0 Any gaps in refill history greater than 2 weeks in the last 3 months: no Demonstrates understanding of importance of adherence: yes Informant: patient Reliability of informant: reliable Provider-estimated medication adherence level: good Reasons for non-adherence: no problems identified Adherence tools used: calendar, directed education Support network for adherence: healthcare provider Medication List: Current Outpatient Medications Medication Sig Dispense Refill ??? adalimumab (Humira,CF, Pen) 40 mg/0.4 mL Pen Injector Kit Inject the contents of one pen (40 mg) subcutaneously once every 7 days. 6 kit 1 ??? acetaminophen (TYLENOL) 325 mg Tablet Take [...] Encounters: 10/13/19 86 11/01/18 87 10/19/17 88 Pertinent Lab values: Lab Results Component Value [...] Pneumococcal Polyvalent 23 10/10/2014 Assessment and Recommendations: Title Type of Medication Management: chronic disease management, targeted medication review Referred By: pharmacist Recipient: beneficiary Provider: plan sponsor pharmacist Visit Type: [facility] [place] Follow-up Method of Contact: by telephone Cognitive Ability: good Cognitive Impairment Status Verified this Year: no Patient Counseling Counseled the patient on the following: doses and administration discussed, safe handling, storage, and disposal discussed, possible adverse effects and management discussed, lab monitoring and follow-up discussed, therapeutic rationale discussed, cost of medications and cost implications discussed, adherence and missed doses discussed, pharmacy contact information discussed, monitoring medication discussed, preventative care discussed, recommendations to doctor discussed, reminder to refill or cotton picking machine operator medication discussed, self-monitoring discussed, referral needs discussed Drug Medication Management Summary Topics discussed: doses and administration discussed, safe handling, storage, and disposal discussed, possible adverse effects and management discussed, lab monitoring and follow-up discussed, therapeutic rationale discussed, cost of medications and cost implications discussed, adherence and missed doses discussed, pharmacy contact information discussed, monitoring medication discussed, preventative care discussed, recommendations to doctor discussed, reminder to refill or cotton picking machine operator medication discussed, self-monitoring discussed, referral needs discussed Number of adverse drug events identified: 0 Time spent: 16-30 min Treatment Outcomes 10/29/2020 1254 Disease progression: Stable Patient Overall Status: Stable [...] importance of adherence and management strategies, side effectavoidance and mitigation strategies, and interruptions in therapy: Yes Physical and Cognitive Assessment: Functional limitations identified: no Cognitive limitations identified: no Concern regarding orientation/memory: no Concern with reasoning/judgement: no Is patient a fall risk: no Other needed information: no Social Assessment: Does the patient have a primary critical care clinical nurse specialist? no Does the patient have an emergency contact on file: Yes Does patient need referral to social problems specialist: No Does patient need referral to advocacy group: No Home Health Assessment: Is the patient in a safe home environment? Yes Is the patient able to store their medication as directed? Yes Does the patient have a support network at home? Yes Reviewed potential home safety hazards with patient: Yes Economic Assessment: Patient is agreeable to medication copay: yes Copay Amount: $5 Day Supply: 28 Date Needed: 11/05/20 Copay assistance required: no Therapy Assessment: Current Medication Dosing/Route/Frequency: Humira 40mg subq q 7 days Appropriate Therapy: Yes Effective: yes - in remisson Current GI-related Symptoms/Pain: no Recent GI Flaring: yes - about a month ago for 3 days (due to diet) Recent Systemic Corticosteroid Use: no Relapsing/Remitting Factors: yes - diet! Patient-Reported Side Effects: no Recent Infections: no Patient Goals: Patient's specific desired goal: Remain in remission with little pain and no blood in stools Measured by: pain scale Time-frame to meet goal: 6 months Is the patient on track to achieve goals of therapy? yes If no, what are the barriers and action plan to reach the goal: n/a Care Plan and Interventions: Care Plan Reviewed and Approved by both Pharmacist and Patient: Yes Did Care Plan Change? No If yes: Change to plans of care based on: Patient's request: no Condition: no Response to therapy: no Provider request: no Follow-up needed: No Interventions (if applicable): No Patient experienced change in condition that affects treatment: no Additional care/services needed: no Educational information or adherence tools provided: No Additional equipment/supplies required: no Patient Counseling: Utilizing appropriate injection technique: yes - he is Rotation of Injection Sites: Yes Room Temperature Medication at Time of Injection: Yes Pharmacist follow-up needed: Yes Patient Satisfaction with Care/Services Provided: Yes Informed patient of specialty pharmacy services: Yes -Patient received welcome packet: yes Date Received: 05/2016 Delivery Method: mail -Patient returned signed Rights & Responsibilities: yes Date Received: 11/2017 Delivery Method: mail -Patient is aware a licensed pharmacist is available 24 hours a day, 7 days a week to discuss medication-related questions or concerns: Yes -Patient verbalizes understanding of education on the common side effect profile of the medication:Yes -The patient is able to call 911 or seek urgent care if signs/symptoms of allergy or harmful adverse reactions occur: Yes Patient understands no changes to current drug regimen were made at the appointment and that [facility] (summary located at top of note) for provider review and follow up. Brent Tripp RPH 10/29/20 12:54 PM documented in this encounter Plan of Treatment Upcoming Encounters Date Type Department Care Team (Latest Contact Info) Description 04/01/2024 12:35 PM EST Hospital Encounter [place] [address] Apurva Vivas MD [facility] [place] [address] 04/01/2024 12:35 PM EST - 04/01/2024 2:17 PM EST Surgery [place] [address] Apurva Vivas MD [facility] [place] [place] [address] ANORECTAL EXAM, REQUIRING ANESTHESIA, DIAGNOSTIC (WRVU 1.8) 04/26/2024 3:00 PM EST Office [place] [address] Apurva Vivas MD [facility] [place] [address] Scheduled Procedures Name Priority Associated Diagnoses Date/Ti [...] PM EDT) No Perri Sousa, [facility] Note: Patient's specific desired goal: [...] on filedocumented in this encounter Care Teams Prep Manager Relationship Specialty Start Date End Date Irwin Gonsalez DO [address] [place] [address] PCP - General 05/01/11 documented as of this encounter
--- OUTSIDE RECORDS SUMMARY | 2024-03-10 01:58 | XMS_ITS | Encounter Summary ---
[place] [address] Care Team Providers Care Molder Vacuum Name Role Phone Irwin Gonsalez DO Primary Care Provider [phone] Encounter Details Date Type Department Care Team (Latest Contact Info) Description 10/13/2019 4:55 PM EDT Laboratory Appointment Lab [address] [place] [address] Crohn's disease of ileum with other complication [...] PM EST Hospital Encounter [place] [address] Apurva Vivas MD [facility] [place] [address] 04/01/2024 12:35 PM EST - 04/01/2024 2:17 PM EST Surgery [place] [address] Apurva Vivas MD [facility] [address] ANORECTAL EXAM, REQUIRING ANESTHESIA, DIAGNOSTIC (WRVU 1.8) 04/26/2024 3:00 PM EST Office [place] [phone] Apurva Vivas MD [facility] [place] [address] Scheduled Procedures Name Priority Associated Diagnoses Date/Ti [...] 017 9:39 PM EDT) Perri Hernandez, [facility] Note: Patient's specific [...] Procedure Name Priority Date/Time Associated Diagnosis Comments HC PCH ADALIMUMAB QUANT Routine 10/13/2019 5:05 PM EDT Crohn's disease of ileum with other complication HC C-REACTIVE PROTEIN Routine 10/13/2019 5:05 PM EDT Crohn's disease of ileum with other complication HEMOGRAM Routine 10/13/2019 5:05 PM EDT Crohn's disease of ileum with other complication DIFFERENTIAL, AUTOMATED Routine 10/13/2019 5:05 PM EDT Crohn's disease of ileum with other complication HC VITAMIN D TOTAL-25 HYDROXY Routine 10/13/2019 5:05 PM EDT Crohn's disease of ileum with other complication HC CBC,PLT & AUTO DIFF Routine 10/13/2019 5:05 PM EDT Crohn's disease of ileum with other complication HC VITAMIN B12 SERUM Routine 10/13/2019 5:05 PM EDT Crohn's disease of ileum with other complication HEPATIC FUNCTION PANEL Routine 10/13/2019 5:05 PM EDT Crohn's disease of ileum with other complication documented in this encounter Results * Differential, Automated (10/13/2019 5:05 PM EDT) Neutrophil % 49.6 % [facility] Neutrophil Absolute 3.22 1.70 - 6.10 x10(3)/[facility] Lymph % 41.5 % [facility] Lymphocytes Abs 2.7 0.9 - 3.2 x10(3)/[facility] Monocyte % 6.9 % [facility] Monocyte Abs 0.4 0.3 - 0.9 x10(3)/[facility] Eos % 1.5 % [facility] Eosinophils Abs 0.1 0.0 - 0.4 x10(3)/[facility] Basophil % 0.3 % [facility] Baso Absolute 0.0 0.0 - 0.1 x10(3)/[facility] Immature Gran % 0.20 % [facility] Comment: Immature granulocytes(IG's)percentage and absolute count will include metamyelocytes, myelocytes, and promyelocytes. Blood smears from CBCs yielding IG's will be scanned manually for concordance. If this scan disagrees with the automated IG or if promyelocytes are noted, a manual differential will be performed. Immature Gran Absolute 0.01 0.00 - 0.04 x10(3)/[facility] Blood specimen (specimen) 10/13/2019 5:05 PM EDT 10/13/2019 5:35 PM EDT Narrative Resulting Agency Comment Spec In Lab L Timothy Pandey MD HEMATOLOGY ORDERABLE S [facility] [place] [address] * Hemogram (10/13/2019 5:05 PM EDT) White Blood Cell 6.5 4.0 - 9.5 x10(3)/[facility] Red Blood Cell 5.20 4.58 - 5.54 x10(6)/[facility] Hemoglobin 15.2 13.7 - 16.5 gm/dL [facility] Hematocrit 44.4 40.5 - 48.5 % [facility] Mean Cell Volume 85.4 82.9 - 93.1 fL [facility] Mean Cell Hemoglobin 29.2 27.5 - 32.1 pg [facility] Mean Cell Hemoglobin Concentration 34.2 32.0 - 35.7 gm/dL [facility] Platelet 263 145 - 357 x10(3)/[facility] RDW Standard Deviation 36.4 36.0 - 45.0 [facility] RDW coefficient of variation 11.8 11.4 - 13.8 % [facility] Mean Platelet Volume 9.7 7.6 - 12.9 fL [facility] NRBC% auto 0.0 % [facility] NRBC Absolute 0.000 0.000 - 0.000 x10(3)/[facility] Blood specimen (specimen) 10/13/2019 5:05 PM EDT 10/13/2019 5:35 PM EDT Narrative Resulting Agency Comment Spec In Lab L Timothy Pandey MD HEMATOLOGY ORDERABLE S Performing Organization Address City/[facility]/ZIP Co de Phone Number [facility] [place] [address] * CRP, acute inflammation (10/13/2019 5:05 PM EDT) C-Reactive Protein 0.3 <=4.9 mg/L [facility] Blood specimen (specimen) 10/13/2019 5:05 PM EDT 10/13/2019 5:35 PM EDT Narrative Resulting Agency Comment Spec In Lab L Timothy Pandey MD CHEMISTRY ORDERABLES Performing Organization Address [facility] Co de Phone Number [facility] [place] [address] * Hepatic Function Panel (10/13/2019 5:05 PM EDT) Protein, Total 6.9 6.1 - 8.0 gm/dL [facility] Albumin 4.3 3.2 - 5.2 gm/dL [facility] Aspartate Aminotransferase 22 0 - 39 unit/L [facility] Alanine Aminotransferase 31 0 - 55 unit/L [facility] Alkaline Phosphatase 54 40 - 130 unit/L [facility] Bilirubin, Total 0.8 0.2 - 1.3 mg/dL [facility] Bilirubin, Direct 0.2 0.0 - 0.3 mg/dL [facility] Blood specimen (specimen) 10/13/2019 5:05 PM EDT 10/13/2019 5:35 PM EDT Narrative Resulting Agency Comment Spec In Lab L Timothy Pandey MD CHEMISTRY ORDERABLES Performing Organization Address [facility] Co de Phone Number [facility] [place] [address] * Adalimumab Quant with Reflex to Antibody (10/13/2019 5:05 PM EDT) Adalimumab Level (JULY) 16.3 mcg/mL [facility] Comment: For clinical assessment of response to therapy, adalimumab should be measured at trough. When adalimumab trough concentrations are greater than 8.0 mcg/mL, clinically relevant kygnxgowgj-mb-sxxqbzkzuc are unlikely and reflex testing will not be performed. REFERENCE VALUE Limit of Quantitation = 0.8 mcg/mL ADDITIONAL INFORMATION This test was developed and its performance characteristics determined by [facility] in a manner consistent with CLIA requirements. This test has not been cleared or approved by the U.S. Food and Drug Administration. Test Performed by: [facility] [address] [place] [address] Configurator: Mauro Page M.D. Ph.D.; CLIA# [id number] Blood specimen (specimen) 10/13/2019 5:05 PM EDT 10/14/2019 10:40 AM EDT Narrative Resulting Agency Comment Spec In Lab L Timothy Pandey MD LAB SEND OUT ORDERAB LES [facility] [place] [address] * Vitamin D, 25-Hydroxy (10/13/2019 5:05 PM EDT) Vitamin D Total 25 OH 48 21 - 100 ng/mL [facility] Comment: Please note, effective July 20, 2019, additional result field for Vitamin D Interpretation, and updated flagging notification. Vit D Interp Sufficient [facility] Blood specimen (specimen) 10/13/2019 5:05 PM EDT 10/13/2019 5:35 PM EDT Narrative Resulting Agency Comment Spec In Lab L Timothy Pandey MD CHEMISTRY ORDERABLES Performing Organization Address City/[facility]/ZIP Co de Phone Number [facility] [place] [address] * Vitamin B12 (10/13/2019 5:05 PM EDT) Vitamin B12 474 232 - 1,245 pg/mL [facility] Blood specimen (specimen) 10/13/2019 5:05 PM EDT 10/13/2019 5:35 PM EDT Narrative Resulting Agency Comment Spec In Lab L Timothy Pandey MD CHEMISTRY ORDERABLES Performing Organization Address [facility] [place] [address] documented in this encounter Visit Diagnoses Diagnosis Crohn's disease of ileum with other complication documented in this encounter Care Teams Molder Vacuum Relationship Specialty Start Date End Date Irwin Gonsalez DO [address] [place] [address] PCP - General 05/01/11 documented as of this encounter
--- OUTSIDE RECORDS SUMMARY | 2024-03-10 01:58 | XMS_ITS | Encounter Summary ---
[place] [address] Care Team Providers Care Feedlot Manager Name Role Phone Irwin Gonsalez DO Primary Care Provider Encounter Details Date Type Department Care Team (Late st Contact Info) Description 09/30/2019 Telephone [place] [phone] Michelle Murcia Social History Tobacco Use Types Packs/Day Years [...] encounter Miscellaneous Notes * Telephone Encounter - Michelle Murcia - 09/30/2019 8:22 AM EDT Spoke with to let her know we needed to convert apt for 7-20 to a tele or tov. Let her know I was canceling the apt and asked that she have him call to schedule a tele or tov. Let her know he most likely will still have time on 7-20 documented in this encounter Plan of Treatment Upcoming Encounters Date Type Department Care Team (Latest Contact Info) Description 04/01/2024 12:35 PM EST Hospital Encounter [place] [address] Apurva Vivas MD [facility] [place] [address] 04/01/2024 12:35 PM EST - 04/01/2024 2:17 PM EST Surgery [place] [address] Apurva Vivas MD [facility] [place] [address] ANORECTAL EXAM, REQUIRING ANESTHESIA, DIAGNOSTIC (WRVU 1.8) 04/26/2024 3:00 PM EST Office [place] [phone] Apurva Vivas MD [facility] [place] [address] Scheduled Procedures Name Priority Associated Diagnoses Date/Ti [...] PM EDT) No Perri Sousa, [facility] Note: Patient's specific desired goal: Igor would [...] on filedocumented in this encounter Care Teams Feedlot Manager Relationship Specialty Start Date End Date Irwin Gonsalez DO [address] [place] [address] PCP - General 05/01/11 documented as of this encounter
--- OUTSIDE RECORDS SUMMARY | 2024-03-10 01:58 | XMS_ITS | Encounter Summary ---
Author Organization [facility] [place] [address] Care Team Providers Care Energy Economist Name Role Phone Irwin Gonsalez DO Primary Care Provider [phone] Encounter Details Date Type Department Care Team (Late st Contact Info) Description 09/19/2020 Orders [place] [phone] Ramonita Pandey MD [facility] [place] [address] Crohn's disease of ileum with other complication [...] PM EST Hospital Encounter [place] [phone] Apurva Vivas MD [facility] [place] [address] 04/01/2024 12:35 PM EST - 04/01/2024 2:17 PM EST Surgery [place] [address] Apurva Vivas MD [facility] [place] [address] ANORECTAL EXAM, REQUIRING ANESTHESIA, DIAGNOSTIC (WRVU 1.8) 04/26/2024 3:00 PM EST Office [place] [phone] Apurva Vivas MD [facility] [place] [address] Scheduled Procedures Name Priority Associated Diagnoses Date/Ti me ANORECTAL EXAM, REQUIRING ANESTHESIA, DIAGNOSTIC (WRVU 1.8) perianal crohns disease w/fistula 04/01/2024 12:35 PM EST SURGICAL TREATMENT OF ANAL FISTULA COMPLEX OR MULTIPLE W\WO SETON PLACEMENT (WRVU 6.39) perianal crohns disease w/fistula 04/01/2024 12:35 PM EST documented as of this encounter Goals Goal Patient Goal Type Associated Problems Recent Progress Patient-Stated? Author [facility] Medication Compliance and Understanding Patient Facing Action Plan On track( 017 9:39 PM EDT) No Perri Sousa, [facility] Note: Patient's specific desired goal: Igor would [...] complication documented in this encounter Care Teams Energy Economist Relationship Specialty Start Date End Date Irwin Gonsalez DO [address] [place] [address] [address] [place] [address] PCP - General 05/01/11 documented as of this encounter
--- OUTSIDE RECORDS SUMMARY | 2024-03-10 01:58 | XMS_ITS | Encounter Summary ---
[place] [address] Care Team Providers Care Gynecologist Name Role Phone Irwin Gonsalez DO Primary Care Provider Reason for Visit * Reason Comments Medication Refill Encounter Details Date Type Department Care Team (Late st Contact Info) Description 04/11/2019 Refill [place] [phone] Ramonita Pandey MD [facility] [place] [address] Crohn's disease with fistula, unspecified gastrointestinal tract location Social History Tobacco Use Types Packs/Day Years [...] PM EST Hospital Encounter [place] [phone] Apurva Vivas MD [facility] [place] [address] 04/01/2024 12:35 PM EST - 04/01/2024 2:17 PM EST Surgery [place] [address] Apurva Vivas MD [facility] [place] [address] ANORECTAL EXAM, REQUIRING ANESTHESIA, DIAGNOSTIC (WRVU 1.8) 04/26/2024 3:00 PM EST Office Visit [place] [phone] Apurva Vivas MD [facility] [place] [address] Scheduled Procedures Name Priority Associated Diagnoses Date/Ti me ANORECTAL EXAM, REQUIRING ANESTHESIA, DIAGNOSTIC (WRVU 1.8) perianal crohns disease w/fistula 04/01/2024 12:35 PM EST SURGICAL TREATMENT OF ANAL FISTULA COMPLEX OR MULTIPLE W\WO SETON PLACEMENT (WRVU 6.39) perianal crohns disease w/fistula 04/01/2024 12:35 PM EST documented as of this encounter Goals Goal Patient Goal Type Associated Problems Recent Progress Patient-Stated? Author [facility] Medication Compliance and Understanding Patient [...] this encounter Visit Diagnoses Diagnosis Crohn's disease with fistula, unspecified gastrointestinal tract location documented in this encounter Care Teams Gynecologist Relationship Specialty Start Date End Date Irwin Gonsalez DO [address] [place], [place] [address] [place] [address] PCP - General 05/01/11 documented as of this encounter
--- OUTSIDE RECORDS SUMMARY | 2024-03-10 01:58 | XMS_ITS | Encounter Summary ---
[place] [address] Care Team Providers Care Miner Name Role Phone Irwin Gonsalez DO Primary Care Provider Encounter Details Date Type Department Care Team (Late st Contact Info) Description 12/26/2019 Telephone [place] [address] Hayden Gutierrez CPHT Social History Tobacco Use [...] encounter Miscellaneous Notes * Telephone Encounter - Hayden Gutierrez - 12/26/2019 9:33 AM EDT Clinical Management Plan: Refill Specialty Pharmacy Consultation; Hayden Gutierrez Comprehensive Medication Management (CMM) Igor Sherine Monzonjoshua Mr. Igor Woodruff is a 44 y.o. (1975) male who was contacted in regard to a specialty medication refill reminder. Spoke with patient regarding Humira. A review of the medication therapy wasperformed. The medication was refilled as scheduled, and all medication related questions and concerns were addressed. The specialty pharmacy staff will follow up with the patient 5-7 days prior to next refill. Was a change made to the Care Plan: No Allergies and Drug intolerance: No Known Allergies Medication Reconciliation Discrepancies (compared to [facility] med list) No New medications: No New medical conditions: No New allergies: No Adherence: Any missed doses? No Are you experiencing any side effects from your medications? No Patient understands no changes to current drug regimen were made.. Hayden Gutierrez 12/26/19 9:33 AM documented in this encounter Plan of Treatment Upcoming Encounters Date Type Department Care Team (Latest Contact Info) Description 04/01/2024 12:35 PM EST Hospital Encounter [place] [address] Apurva Vivas MD [facility] [place] [address] 04/01/2024 12:35 PM EST - 04/01/2024 2:17 PM EST Surgery [place] [phone] Apurva Vivas MD [facility] [place] [address] ANORECTAL EXAM, REQUIRING ANESTHESIA, DIAGNOSTIC (WRVU 1.8) 04/26/2024 3:00 PM EST Office Visit [place] [address] Apurva Vivas MD [facility] [place] [address] Scheduled Procedures Name Priority Associated Diagnoses Date/Ti [...] 9:39 PM EDT) Perri Hernandez, [facility] Note: Patient's specific [...] on filedocumented in this encounter Care Teams Miner Relationship Specialty Start Date End Date Irwin Gonsalez DO [address] [place] [address] PCP - General 05/01/11 documented as of this encounter
--- OUTSIDE RECORDS SUMMARY | 2024-03-10 01:58 | XMS_ITS | Encounter Summary ---
[place] [address] Care Team Providers Care Food Runner Name Role Phone Irwin Gonsalez DO Primary Care Provider Reason for Visit * Reason Comments Specialty Refill Management Encounter Details Date Type Department Care Team (Late st Contact Info) Description 10/01/2020 Specialty [place] [address] Hayden Gutierrez CPHT Social History [...] encounter Progress Notes * Hayden Gutierrez - 10/01/2020 12:14 PM EDT Clinical Management Plan: Refill Specialty Pharmacy Consultation; Hayden Gutierrez Comprehensive Medication Management (CMM) Igor Woodruff Mr. Igor Woodruff is a 45 y.o. [...] Known Allergies Medication Reconciliation Discrepancies (compared to [facility] med list) No Specialty Pharmacy Refill Questionnaire Refill Questionnaire 09/03/2020 What is the name of the specialty medication you are refilling? Humira 40MG/0.4ML PNKT Are you taking any new medications? No Any new medical condition? No Any new allergies? No Any new side effects that are bothersome? No What date will you need this fill by? 09/10/2020 Adherence: Any missed doses? No Patient understands no changes to current drug regimen were made.. Hayden Gutierrez 10/01/20 12:14 PM documented in this encounter Plan of Treatment Upcoming Encounters Date Type Department Care Team (Latest Contact Info) Description 04/01/2024 12:35 PM EST Hospital Encounter [place] [address] Apurva Vivas MD [facility] [place] [address] 04/01/2024 12:35 PM EST - 04/01/2024 2:17 PM EST Surgery [place] [address] Apurva Vivas MD [facility] [place] [address] ANORECTAL EXAM, REQUIRING ANESTHESIA, DIAGNOSTIC (WRVU 1.8) 04/26/2024 3:00 PM EST Office [place] [address] Apurva Vivas MD [facility] [place] [address] Scheduled Procedures Name Priority Associated Diagnoses Date/Ti [...] PM EDT) No Perri Sousa, [facility] Note: Patient's specific desired goal: [...] on filedocumented in this encounter Care Teams Food Runner Relationship Specialty Start Date End Date Irwin Gonsalez DO [address] [place] [address] PCP - General 05/01/11 documented as of this encounter
--- OUTSIDE RECORDS SUMMARY | 2024-03-10 01:58 | XMS_ITS | Encounter Summary ---
[place] [address] Care Team Providers Care Instructional Technology Director Name Role Phone Irwin Gonsalez DO Primary Care Provider Encounter Details Date Type Department Care Team (Late st Contact Info) Description 04/11/2019 [place] [address] Michelle Murcia Social History Tobacco Use Types [...] * Telephone Encounter - Michelle Murcia - 04/11/2019 3:46 PM EST Pt called and asked that lab orders be [facility]. Sent lab orders documented in this encounter Plan of Treatment Upcoming Encounters Date Type Department Care Team (Latest Contact Info) Description 04/01/2024 12:35 PM EST Hospital Encounter [place] [address] Apurva Vivas MD [facility] [place] [address] 04/01/2024 12:35 PM EST - 04/01/2024 2:17 PM EST Surgery [place] [address] Apurva Vivas MD [facility] [place] [address] ANORECTAL EXAM, REQUIRING ANESTHESIA, DIAGNOSTIC (WRVU 1.8) 04/26/2024 3:00 PM EST Office [place] [phone] Apurva Vivas MD [facility] [place] [address] Scheduled Procedures Name Priority Associated Diagnoses Date/Ti mt ANORECTAL EXAM, REQUIRING ANESTHESIA, DIAGNOSTIC (WRVU 1.8) perianal crohns disease w/fistula 04/01/2024 12:35 PM EST SURGICAL TREATMENT OF ANAL FISTULA COMPLEX OR MULTIPLE W\WO SETON PLACEMENT (WRVU 6.39) perianal crohns disease w/fistula 04/01/2024 12:35 PM EST documented as of this encounter Goals Goal Patient Goal Type Associated Problems Recent Progress Patient-Stated? Author [facility] Medication Compliance and Understanding Patient Facing [...] on filedocumented in this encounter Care Teams Instructional Technology Director Relationship Specialty Start Date End Date Irwin Gonsalez DO [address] [place] [address] PCP - General 05/01/11 documented as of this encounter
--- OUTSIDE RECORDS SUMMARY | 2024-03-10 01:58 | XMS_ITS | Encounter Summary ---
[place] [address] Care Team Providers Care Animal Sitter Name Role Phone Irwin Gonsalez DO Primary Care Provider [phone] Reason for Visit * Reason Comments Medication Management Medication Refill Encounter Details Date Type Department Care Team (Late st Contact Info) Description 11/26/2020 Specialty [place] [address] Rhea Aldridge RPH Social History [...] Progress Notes * Rhea Aldridge RPH - 11/26/2020 12:22 PM EDT Clinical Management Plan: Refill Specialty Pharmacy Consultation; Rhea Aldridge RPH Comprehensive Medication Management (CMM) Igor Sherine Kacy Mr. Igor Woodruff is a 45 y.o. [...] change made to the Care Plan: No - patient notes a few days where he feels he is struggling with memory and focus. We discussed this was likely not a side effect from the Humira. Patient will keep track of days this happens going forward and will discuss with provider if appropriate. Allergies and Drug intolerance: No Known Allergies Medication Reconciliation Discrepancies (compared to [facility] med list) No Specialty Pharmacy Refill Questionnaire Refill Questionnaire 11/26/2020 What is the name of the specialty medication you are refilling? Humira 40mg/0.4ml Are you taking any new medications? No Any new medical condition? No Any new allergies? No Any new side effects that are bothersome? No What date will you need this fill by? 12/03/2020 Adherence: Any missed doses? No Patient understands no changes to current drug regimen were made. Rhea Aldridge RPH 11/26/20 12:24 PM documented in this encounter Plan of Treatment Upcoming Encounters Date Type Department Care Team (Latest Contact Info) Description 04/01/2024 12:35 PM EST Hospital Encounter [place] [address] Apurva Vivas MD [facility] [place] [place] [address] 04/01/2024 12:35 PM EST - 04/01/2024 2:17 PM EST Surgery [place] [address] Apurva Vivas MD [facility] [place] [place] [address] ANORECTAL EXAM, REQUIRING ANESTHESIA, DIAGNOSTIC (WRVU 1.8) 04/26/2024 3:00 PM EST Office [place] [address] Apurva Vivas MD [facility] [place] [address] Scheduled Procedures Name Priority Associated Diagnoses Date/Ti me ANORECTAL EXAM, REQUIRING ANESTHESIA, DIAGNOSTIC (WRVU 1.8) perianal crohns disease w/fistula 04/01/2024 12:35 PM EST SURGICAL TREATMENT OF ANAL FISTULA COMPLEX OR MULTIPLE W\WO SETON PLACEMENT (WRVU 6.39) perianal crohns disease w/fistula 04/01/2024 12:35 PM EST documented as of this encounter Goals Goal Patient Goal Type Associated Problems Recent Progress Patient-Stated? Author [facility] Medication Compliance and Understanding Patient Facing Action [...] on filedocumented in this encounter Care Teams Animal Sitter Relationship Specialty Start Date End Date Irwin Gonsalez DO [address] [place] [address] PCP - General 05/01/11 documented as of this encounter
--- OUTSIDE RECORDS SUMMARY | 2024-03-10 01:58 | XMS_ITS | Encounter Summary ---
Author Organization [facility] Address [facility] [place] [address] Care Team Providers Care Workers Compensation Paralegal Name Role Phone Irwin Gonsalez DO Primary Care Provider Encounter Details Date Type Department Care Team (Late st Contact Info) Description 05/08/2020 Refill [place] [address] [facility] [place] [address] Social History Tobacco Use Types Packs/Day Years [...] PM EST Hospital Encounter [place] [address] [facility] [place] [address] 04/01/2024 12:35 PM EST - 04/01/2024 2:17 PM EST [place] [address] [facility] [place] [address] ANORECTAL EXAM, REQUIRING ANESTHESIA, DIAGNOSTIC (WRVU 1.8) 04/26/2024 3:00 PM EST Office Visit [place] [address] [facility] [place] [address] Scheduled Procedures Name Priority Associated Diagnoses Date/Ti [...] on filedocumented in this encounter Care Teams Workers Compensation Paralegal Relationship Specialty Start Date End Date Irwin Gonsalez DO [address] [place] [address] [address] [place] [address] PCP - General 05/01/11 documented as of this encounter
--- OUTSIDE RECORDS SUMMARY | 2024-03-10 01:58 | XMS_ITS | Encounter Summary ---
[place] [address] Care Team Providers Care Experimental Machining Lab Manager Name Role Phone Irwin Gonsalez DO Primary Care Provider Encounter Details Date Type Department Care Team (Late st Contact Info) Description 09/27/2019 [place] [address] Vidya Santana, [facility] Social History Tobacco Use Types [...] encounter Miscellaneous Notes * Telephone Encounter - Vidya Santana - 09/27/2019 9:08 AM EDT Clinical Management Plan: Refill Specialty [...] Known Allergies Medication Reconciliation [facility]crep[facility] No New medications: No New medical conditions: No New allergies: No Adherence: Any missed doses? No Are you experiencing any side effects from your medications? No Patient understands no changes to current drug regimen were made.. Vidya Santana 09/27/19 9:08 AM documented in this encounter Plan of Treatment Upcoming Encounters Date Type Department Care Team (Latest Contact Info) Description 04/01/2024 12:35 PM EST Hospital Encounter [place] [address] Apurva Vivas MD [facility] [place] [address] 04/01/2024 12:35 PM EST - 04/01/2024 2:17 PM EST Surgery [place] [address] Apurva Vivas MD [facility] [place] [address] ANORECTAL EXAM, REQUIRING ANESTHESIA, DIAGNOSTIC (WRVU 1.8) 04/26/2024 3:00 PM EST Office [place] [address] Apurva Vivas MD [facility] [place] [address] Scheduled Procedures Name Priority Associated Diagnoses Date/Ti [...] 017 9:39 PM EDT) Perri Hernandez, [facility] Note: Patient's specific desired goal: Igor [...] on filedocumented in this encounter Care Teams Experimental Machining Lab Manager Relationship Specialty Start Date End Date Irwin Gonsalez DO [address] [place] [address] [address] [facility] [address] [place] [address] PCP - General 05/01/11 documented as of this encounter
--- OUTSIDE RECORDS SUMMARY | 2024-03-10 01:58 | XMS_ITS | Encounter Summary ---
[place] [address] Care Team Providers Care Welder Production Line Arc Name Role Phone Irwin Gonsalez DO Primary Care Provider Reason for Visit * Reason Comments Medication Management Encounter Details Date Type Department Care Team (Late st Contact Info) Description 07/06/2019 Specialty [place] [phone] Manolo Gonzalez RPH Social History Tobacco Use [...] Progress Notes * Manolo Jarvis RPH - 07/06/2019 3:41 PM EDT Clinical Management Plan: Refill Specialty Pharmacy Consultation; Manolo Jarvis RPH Comprehensive Medication Management (CMM) Igor Sherine Mayitorobertjoshua Mr. Igor Woodruff is a 44 y.o. (1975) male who was contacted in regard to a specialty medication refill reminder. Hayden Gutierrez spoke with the patient regarding Humira. A review of the medication therapy was performed. The medication was Refilled as scheduled, and all medication relatedquestions and concerns were addressed. The specialty pharmacy staff will follow up with the patient5-7 days prior to next refill. Was a change made to the Care Plan: no If yes, should the medication be held: No Assessment and Recommendations: Title Type of Medication Management: chronic disease management, targeted medication review Referred By: provider Recipient: beneficiary Provider: plan sponsor pharmacist Visit Type: [facility] Follow-up Method of Contact: by telephone Cognitive Ability: good Cognitive Impairment Status Verified this Year: no Allergies and Drug intolerance: No Known Allergies Medication Reconciliation Discrepancies (compared to [facility] med list) -Discontinued azathioprine after changing to every 7 day dosing on Humira New medications: no New medical conditions: no [...] were made at the appointment and that [facility] is providing recommendations (summary located at top of note) for provider review and follow up. Manolo Jarvis RPH 07/06/19 3:43 PM *Documenting on behalf of Hayden Gutierrez CPhT, who originally spoke with the patient documented in this encounter Plan of Treatment Upcoming Encounters Date Type Department Care Team (Latest Contact Info) Description 04/01/2024 12:35 PM EST Hospital Encounter [place] [address] Apurva Vivas MD [facility] [place] [address] 04/01/2024 12:35 PM EST - 04/01/2024 2:17 PM EST Surgery [place] [address] Apurva Vivas MD [facility] [place] [address] ANORECTAL EXAM, REQUIRING ANESTHESIA, DIAGNOSTIC (WRVU 1.8) 04/26/2024 3:00 PM EST Office [place] [phone] Apurva Vivas MD [facility] [place] [address] Scheduled Procedures Name Priority Associated Diagnoses Date/Ti [...] on filedocumented in this encounter Care Teams Welder Production Line Arc Relationship Specialty Start Date End Date Irwin Gonsalez DO [address] [facility] [place] [address] PCP - General 05/01/11 documented as of this encounter
--- OUTSIDE RECORDS SUMMARY | 2024-03-10 01:58 | XMS_ITS | Encounter Summary ---
[place] [address] Care Team Providers Care Firer Retort Name Role Phone Irwin Gonsalez DO Primary Care Provider Encounter Details Date Type Department Care Team (Late st Contact Info) Description 04/25/2020 Telephone [place] [phone] London Albarado Social History Tobacco Use Types Packs/Day Years [...] encounter Miscellaneous Notes * Telephone Encounter - London Albarado - 04/25/2020 4:43 PM EST London Albarado Inbound/Outbound: Outbound Spoke to Patient/Left Message: Left message Notes: Outbound call to patient to reschedule cancelled procedure with Dr. Pandey. Asked patient to call us back to reschedule. Return calls can be handled by: Any endoscopy personnel scheduler. * Telephone Encounter - London Albarado - 04/25/2020 4:43 PM EST ----- Message from Airam Pathak sent at 04/25/2020 11:28 AM EST ----- Regarding: FW: per Clinic Admin Services-[employer]-Please call pt to lucia. [place] with Dr. Pandey on05/03/20. ----- Message ----- From: Catrina Verduzco Sent: 04/25/2020 8:04 AM EST To: [facility] Subject: per Clinic Admin Services-[employer]-Please# Antoinette, per Clinic Admin Services-[facility] [employer]-Please call pt to lucia. colo with Dr. Pandey on 05/03/20. He has an important business meeting he can't miss. He would like to postpone colo to the Fall. Thank you! Catrina documented in this encounter Plan of Treatment Upcoming Encounters Date Type Department Care Team (Latest Contact Info) Description 04/01/2024 12:35 PM EST Hospital Encounter [place] [address] Apurva Vivas MD [facility] [place] [address] 04/01/2024 12:35 PM EST - 04/01/2024 2:17 PM EST Surgery [place] [address] Apurva Vivas MD [facility] [place] [address] ANORECTAL EXAM, REQUIRING ANESTHESIA, DIAGNOSTIC (WRVU 1.8) 04/26/2024 3:00 PM EST Office [place] [address] Apurva Vivas MD [facility] [place] [address] Scheduled Procedures Name Priority Associated Diagnoses Date/Ti [...] PM EDT) No Perri Sousa, [facility] Note: Patient's specific desired goal: Igor [...] on filedocumented in this encounter Care Teams Firer Retort Relationship Specialty Start Date End Date Irwin Gonsalez DO [address] [place] [address] PCP - General 05/01/11 documented as of this encounter
--- OUTSIDE RECORDS SUMMARY | 2024-03-10 01:58 | XMS_ITS | Encounter Summary ---
[place] [address] Care Team Providers Care Joint Cutter Machine Name Role Phone Irwin Gonsalez DO Primary Care Provider Reason for Visit * Reason Comments Specialty Pharmacy Review Encounter Details Date Type Department Care Team (Late st Contact Info) Description 10/03/2019 Specialty [place] [phone] Bianca Mi, DIE CASTING MACHINE MAINTAINER Social History Tobacco Use Types Packs/Day Years [...] PM EST Hospital Encounter [place] [phone] Apurva Vivas MD [facility] [place] [address] 04/01/2024 12:35 PM EST - 04/01/2024 2:17 PM EST [place] [address] Apurva Vivas MD [facility] [place] [address] ANORECTAL EXAM, REQUIRING ANESTHESIA, DIAGNOSTIC (WRVU 1.8) 04/26/2024 3:00 PM EST Office [place] [phone] Apurva Vivas MD [facility] [place] [address] Scheduled Procedures Name Priority Associated Diagnoses Date/Ti [...] on filedocumented in this encounter Care Teams Joint Cutter Machine Relationship Specialty Start Date End Date Irwin Gonsalez DO [address] [place] [address] PCP - General 05/01/11 documented as of this encounter
--- OUTSIDE RECORDS SUMMARY | 2024-03-10 01:58 | XMS_ITS | Encounter Summary ---
[place] [address] Care Team Providers Care Floor Associate Name Role Phone Wallace Irwin MENDOZA Primary Care Provider [phone] Encounter Details Date Type Department Care Team (Late st Contact Info) Description 04/11/2019 Orders [place] [phone] Ramonita Pandey MD [facility] [place] [address] Crohn's disease with fistula, unspecified gastrointestinal tract [...] PM EST Hospital Encounter [place] [phone] Apurva Vivas MD [facility] [place] [address] 04/01/2024 12:35 PM EST - 04/01/2024 2:17 PM EST Surgery [place] [address] Apurva Vivas MD [facility] [place] [address] ANORECTAL EXAM, REQUIRING ANESTHESIA, DIAGNOSTIC (WRVU 1.8) 04/26/2024 3:00 PM EST Office [place] [phone] Apurva Vivas MD [facility] [place] [address] Scheduled Procedures Name Priority Associated Diagnoses Date/Ti me ANORECTAL EXAM, REQUIRING ANESTHESIA, DIAGNOSTIC (WRVU 1.8) perianal crohns disease w/fistula 04/01/2024 12:35 PM EST SURGICAL TREATMENT OF ANAL FISTULA COMPLEX OR MULTIPLE W\WO SETON PLACEMENT (WRVU 6.39) perianal crohns disease w/fistula 04/01/2024 12:35 PM EST documented as of this encounter Goals Goal Patient Goal Type Associated Problems Recent Progress Patient-Stated? Author [facility] Medication Compliance and Understanding Patient Facing [...] location documented in this encounter Care Teams Floor Associate Relationship Specialty Start Date End Date Irwin Gonsalez DO [address] [place] [address] [address] [place] [address] PCP - General 05/01/11 documented as of this encounter
--- OUTSIDE RECORDS SUMMARY | 2024-03-10 01:58 | XMS_ITS | Encounter Summary ---
[place] [address] Care Team Providers Care Religious Education Teacher Name Role Phone Irwin Gonsalez DO Primary Care Provider Encounter Details Date Type Department Care Team (Late st Contact Info) Description 01/23/2020 [place] [address] Hayden Gutierrez CPHT Social History Tobacco Use [...] * Telephone Encounter - Hayden Gutierrez - 01/23/2020 9:22 AM EST Clinical Management Plan: Refill Specialty [...] Known Allergies Medication Reconciliation Discrepancies (compared to [facility] med list) No New medications: No New medical conditions: No New allergies: No Adherence: Any missed doses? No Are you experiencing any side effects from your medications? No Patient understands no changes to current drug regimen were made.. Hayden Gutierrez 01/23/20 9:22 AM documented in this encounter Plan of Treatment Upcoming Encounters Date Type Department Care Team (Latest Contact Info) Description 04/01/2024 12:35 PM EST Hospital Encounter [place] [address] Apurva Vivas MD [facility] [place] [address] 04/01/2024 12:35 PM EST - 04/01/2024 2:17 PM EST Surgery [place] [address] Apurva Vivas MD [facility] [place] [address] ANORECTAL EXAM, REQUIRING ANESTHESIA, DIAGNOSTIC (WRVU 1.8) 04/26/2024 3:00 PM EST Office [place] [address] Apurva Vivas MD [facility] [place] [address] Scheduled Procedures Name Priority Associated Diagnoses Date/Ti [...] track( 017 9:39 PM EDT) Perri Hernandez, [facility] Note: Patient's specific desired goal: [...] on filedocumented in this encounter Care Teams Religious Education Teacher Relationship Specialty Start Date End Date Irwin Gonsalez DO [address] [place] [address] PCP - General 05/01/11 documented as of this encounter
--- OUTSIDE RECORDS SUMMARY | 2024-03-10 01:58 | XMS_ITS | Encounter Summary ---
Author Organization [facility] Address [facility] [place] [address] Care Team Providers Care Flumer Name Role Phone Irwin Gonsalez DO Primary Care Provider [phone] Encounter Details Date Type Department Care Team (Late st Contact Info) Description 10/01/2020 Ref[place] [phone] [facility] [place] [address] Social History Tobacco Use Types Packs/Day Years [...] PM EST Hospital Encounter [place] [address] [facility] [place] [place] [address] 04/01/2024 12:35 PM EST - 04/01/2024 2:17 PM EST Surgery [place] [address] [facility] [place] [place] [address] ANORECTAL EXAM, REQUIRING ANESTHESIA, DIAGNOSTIC (WRVU 1.8) 04/26/2024 3:00 PM EST Office [place] [address] [facility] [place] [place] [address] Scheduled Procedures Name Priority Associated Diagnoses Date/Ti [...] 9:39 PM EDT) No Perri Sousa, [facility] Note: Patient's specific desired goal: Igor would [...] on filedocumented in this encounter Care Teams Flumer Relationship Specialty Start Date End Date Irwin Gonsalez DO [address] [place] [address] [address] [place] [address] PCP - General 05/01/11 documented as of this encounter
--- OUTSIDE RECORDS SUMMARY | 2024-03-10 01:58 | XMS_ITS | Encounter Summary ---
[place] [address] Care Team Providers Care Mobile Marketing Specialist Name Role Phone Irwin Gonsalez DO Primary Care Provider Reason for Visit * Reason Comments Medication Management Patient Education Medication Refill Encounter Details Date Type Department Care Team (Late st Contact Info) Description 11/23/2019 Specialty [place] [address] Rhea Aldridge RPH Social History [...] Progress Notes * Rhea Aldridge RPH - 11/23/2019 2:55 PM EDT Specialty Pharmacy Consultation; Rhea Aldridge RPH Comprehensive Medication Management (CMM) Igor Basurto Kacy Diagnosis: Crohn's Disease Therapy Start Date: 04/25/2016 Contact in person or via telephone:Telephone Mr. Igor Woodruff is a 44 y.o. [...] Woodruff was contacted via telephone for a review/6 month follow-up of Humira for the treatment of Crohn's disease. Patient was educated on the importance of infection prevention including best practices for hand hygiene and the annual flu vaccine. He reports he does not typically get an annual flu shot. Patient was informed that the flu vaccine is recommended for people taking Humira. Discussed the need to avoid live vaccines during treatment. Dose hold parameters were reviewed including suspected/known infection, prescribed antibiotic therapy, or scheduled surgery. Patient agrees to contact the clinic to review dose hold in these settings. Patient is not experiencing any noticeable side effects from the Humira. He reports it is working very well for him. He has no current GI related symptoms or pain. A review of dosing, storage, and administration was completed. Patient is administering 40 mg subcutaneously every 7 days. He reports he has no trouble remembering to take his dose as he is reminded with help from his children. He is storing the Humira in the refrigerator and performing proper siterotation, site sterilization, and allowing the medication to reach room temperature prior to injection. Patient is comfortable with the self injection process and he declined needing a sharps container with this fill. He was encouraged to contact specialty pharmacy with any questions or concerns. Clinic follow-up needed: no Allergies and Drug intolerance: No Known Allergies Problem List: Patient Active Problem List Diagnosis Code ??? 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 Abnormal liver function test R94.5 ??? GERD (gastroesophageal reflux disease) K21.9 Special Dietary or Hydration Requirements: no There is no height or weight on file to calculate BMI. Medication Reconciliation Discrepancies (compared to [facility] med list) no Medication Adherence Patient reported [...] Refills needed for supportive medications: not needed Medication List: Current Outpatient Medications Medication Sig [...] beneficiary Provider: plan sponsor pharmacist Visit Type: [facility] [place] Method of Contact: by telephone Cognitive Ability: good Cognitive Impairment Status Verified this Year: no Drug Interactions Provided the patient with educational material regarding drug interactions: yes Patient Counseling Counseled the patient on the following: reviewed medication changes since last visit, medication safety precautions education provided, drug interaction education provided to patient, doses and administration discussed, safe handling, storage, and disposal discussed, possible adverse effects and management discussed, possible drug and prescription drug interactions discussed, possible drug and OTC drug and food interactions discussed, lab monitoring and follow-up discussed, therapeutic rationale discussed, cost of medications and cost implications discussed, adherence and missed doses discussed, pharmacy contact information discussed, health goals discussed, monitoring medication discussed, over the counter products discussed, preventative care discussed, reminder to refill or rock picker medication discussed, self-monitoring discussed, timing of medications discussed, vaccination discussed, lifestyle modification education, referral needs discussed Drug Medication Management Summary Topics discussed: reviewed medication changes since last visit, medication safety precautions education provided, drug interaction education provided to patient, doses and administration discussed, safe handling, storage, and disposal discussed, possible adverse effects and management discussed, possible drug and prescription drug interactions discussed, possible drug and OTC drug and food interactions discussed, lab monitoring and follow-up discussed, therapeutic rationale discussed, cost of medications and cost implications discussed, adherence and missed doses discussed, pharmacy contact information discussed, health goals discussed, monitoring medication discussed, over the counter products discussed, preventative care discussed, reminder to refill or rock picker medication discussed, self-monitoring discussed, timing of medications discussed, vaccination discussed, lifestyle modification education, referral needs discussed Time spent: 1-15 min Treatment Outcomes No data found in the last 10 encounters. Reviewed in detail with patient: Dose appropriateness [...] use oldest product first Relevant lab data Patient verbalizes understanding and is able to [...] Assessment: Does the patient have a primary home care coordinator? no Does the patient have an emergency contact on file: Yes Does patient need referral to social media marketing specialist: No Does patient need referral to advocacy group: No Home Health Assessment: Is the patient in a safe home environment? Yes Is the patient able to store their medication as directed? Yes Does the patient have a support network at home? Yes Reviewed potential home safety hazards with patient: No Economic Assessment: Patient is agreeable to medication copay: yes Copay Amount: $5.00 Day Supply: 28 Date Needed: 12/05/2019 Copay assistance required: no Therapy Assessment: Current Medication Dosing/Route/Frequency: Humira 40mg/0.4ml - inject the contents of 1 pen (40mg) subcutaneously every 7 days Appropriate Therapy: Yes Effective: yes - Patient is happy with therapy Current GI-related Symptoms/Pain: no Recent GI Flaring: no Recent Systemic Corticosteroid Use: no Relapsing/Remitting Factors: no Patient-Reported Side Effects: no Recent Infections: no Patient Goals: Patient's specific desired goal: Igor would like to stay adherent on Humira and maintain the improvement he has seen. We will continue to provide refill reminders to prevent gaps in therapy. Measured by: patient reported symptoms (pain, # BM, flaring, overall quality of life) Time-frame to meet goal: ongoing - pt has had adequate improvement, has no pain, no recent flares, good quality of life (evaluated every 6 months) Is the patient on track to achieve [...] n/a Follow-up needed: No Interventions (if applicable): No Patient experienced change in condition that affects treatment: no Additional care/services needed: no Educational information or adherence tools provided: No Additional equipment/supplies required: no Patient Counseling: Utilizing appropriate injection technique: yes - patient is comfortable with the self injection process Rotation of Injection Sites: Yes Room Temperature Medication at Time of Injection: Yes Pharmacist follow-up needed: No Patient Satisfaction with Care/Services Provided: Yes Informed patient of specialty pharmacy services: Yes -Patient received welcome packet: yes - Date Received: 05/23/2016 Delivery Method: Mail -Patient returned signed Rights & Responsibilities: yes - Date Received: 05/23/2016 Delivery Method: Mail -Patient is aware a licensed pharmacist is [...] were made at the appointment and that [facility] isproviding recommendations (summary located at top of note) for provider review and follow up. Rhea Aldridge RPH 11/23/19 3:01 PM documented in this encounter Plan of Treatment Upcoming Encounters Date Type Department Care Team (Latest Contact Info) Description 04/01/2024 12:35 PM EST Hospital Encounter [place] [address] Apurva Vivas MD [facility] [address] 04/01/2024 12:35 PM EST - 04/01/2024 2:17 PM EST [place] [phone] Apurva Vivas MD [facility] [place] [address] ANORECTAL EXAM, REQUIRING ANESTHESIA, DIAGNOSTIC (WRVU 1.8) 04/26/2024 3:00 PM EST Office Visit [place] [phone] Apurva Vivas MD [facility] [place] [address] Scheduled Procedures Name Priority Associated Diagnoses Date/Ti me ANORECTAL EXAM, REQUIRING ANESTHESIA, DIAGNOSTIC (WRVU 1.8) perianal crohns disease w/fistula 04/01/2024 12:35 PM EST SURGICAL TREATMENT OF ANAL FISTULA COMPLEX OR MULTIPLE W\WO SETON PLACEMENT (WRVU 6.39) perianal crohns disease w/fistula 04/01/2024 12:35 PM EST documented as of this encounter Goals Goal Patient Goal Type Associated Problems Recent Progress Patient-Stated? Author [facility] [place] Medication Compliance and Understanding Patient Facing Action [...] on filedocumented in this encounter Care Teams Mobile Marketing Specialist Relationship Specialty Start Date End Date Irwin Gonsalez DO [address] [place] [address] PCP - General 05/01/11 documented as of this encounter
--- OUTSIDE RECORDS SUMMARY | 2024-03-10 01:58 | XMS_ITS | Encounter Summary ---
[place] [address] Care Team Providers Care Thermal Technician Name Role Phone Irwin Gonsalez DO Primary Care Provider Reason for Visit * Reason Comments Medication Management Encounter Details Date Type Department Care Team (Late st Contact Info) Description 08/04/2019 Specialty [place] [phone] Mansoor Sapp [facility] Social History Tobacco Use Types Packs/Day [...] this encounter Progress Notes * Mansoor Sapp Sunday - 08/04/2019 2:12 PM EDT Clinical Management Plan: Refill Specialty Pharmacy Consultation; Mansoor Sapp [facility] Comprehensive Medication Management (CMM) Igor Monzonjoshua Mr. Igor Woodruff is a 44 [...] beneficiary Provider: plan sponsor pharmacist Visit Type: [facility] [place] Method of Contact: by telephone Cognitive Ability: good Cognitive Impairment Status Verified this Year: no Allergies and Drug intolerance: No Known Allergies Medication Reconciliation Discrepancies (compared to [facility] med list) -none New medications: no New [...] made at the appointment and that [facility] is providing recommendations (summary located at top of note) for provider review and follow up. Mansoor Sapp RPH 08/04/19 2:13 PM documented in this encounter Plan of Treatment Upcoming Encounters Date Type Department Care Team (Latest Contact Info) Description 04/01/2024 12:35 PM EST Hospital Encounter [place] [address] Apurva Vivas MD [facility] [place] [address] 04/01/2024 12:35 PM EST - 04/01/2024 2:17 PM EST Surgery [place] [address] Apurva Vivas MD [facility] [place] [address] ANORECTAL EXAM, REQUIRING ANESTHESIA, DIAGNOSTIC (WRVU 1.8) 04/26/2024 3:00 PM EST Office Visit General Surgery at [facility] [place] [address] Apurva Vivas MD [facility] [place] [address] Scheduled Procedures Name Priority Associated Diagnoses Date/Ti me ANORECTAL EXAM, REQUIRING ANESTHESIA, DIAGNOSTIC (WRVU 1.8) perianal crohns disease w/fistula 04/01/2024 12:35 PM EST SURGICAL TREATMENT OF ANAL FISTULA COMPLEX OR MULTIPLE W\WO SETON PLACEMENT (WRVU 6.39) perianal crohns disease w/fistula 04/01/2024 12:35 PM EST documented as of this encounter Goals Goal Patient Goal Type Associated Problems Recent Progress Patient-Stated? Author [facility] Medication Compliance and Understanding Patient Facing Action Plan On track( 017 9:39 PM EDT) No Perri Sousa, [facility] Note: Patient's [...] on filedocumented in this encounter Care Teams Thermal Technician Relationship Specialty Start Date End Date Irwin Gonsalez DO [address] [place] [address] [address] [place] [address] PCP - General 05/01/11 documented as of this encounter
--- OUTSIDE RECORDS SUMMARY | 2024-03-10 01:58 | XMS_ITS | Encounter Summary ---
Author Organization [facility] Address [facility] [place] [address] Care Team Providers Care Machine Welt Butter Name Role Phone Irwin Gonsalez DO Primary Care Provider Encounter Details Date Type Department Care Team (Late st Contact Info) Description 10/25/2019 Refill [place] [phone] Ramonita Pandey MD [facility] [place] [address] Social History Tobacco Use Types Packs/Day Years [...] PM EST Hospital Encounter [place] [phone] Apurva Vivas MD [facility] [place] [address] 04/01/2024 12:35 PM EST - 04/01/2024 2:17 PM EST [place] [address] Apurva Vivas MD [facility] [place] [address] ANORECTAL EXAM, REQUIRING ANESTHESIA, DIAGNOSTIC (WRVU 1.8) 04/26/2024 3:00 PM EST Office [place] [phone] Apurva Vivas MD [facility] [place] [address] Scheduled Procedures Name Priority Associated Diagnoses Date/Ti [...] on filedocumented in this encounter Care Teams Machine Welt Butter Relationship Specialty Start Date End Date Irwin Gonsalez DO [address] [place] [address] [address] [place] [address] PCP - General 05/01/11 documented as of this encounter
--- OUTSIDE RECORDS SUMMARY | 2024-03-10 01:58 | XMS_ITS | Encounter Summary ---
[place] [address] Care Team Providers Care Registered Medical Transcriptionist Name Role Phone Irwin Gonsalez DO Primary Care Provider Encounter Details Date Type Department Care Team (Late st Contact Info) Description 04/16/2020 [place] [phone] Riya Pantoja CPHT Social History Tobacco Use Types Packs/Day [...] encounter Miscellaneous Notes * Telephone Encounter - Riya Pineda CPHT - 04/16/2020 9:41 AM EST Clinical Management Plan: Refill Specialty Pharmacy Consultation; Riya Pineda CPHT Comprehensive Medication Management (CMM) Igor Sherine Monzonjoshua Mr. Igor Woodruff is a 45 [...] Known Allergies Medication Reconciliation Discrepancies (compared to [facility] med list) No New medications: No New medical conditions: No New allergies: No Adherence: Any missed doses? No Are you experiencing any side effects from your medications? No Patient understands no changes to current drug regimen were made.. Riya Pineda CPHT 04/16/20 9:41 AM documented in this encounter Plan of Treatment Upcoming Encounters Date Type Department Care Team (Latest Contact Info) Description 04/01/2024 12:35 PM EST Hospital Encounter [place] [address] Apurva Vivas MD [facility] [place] [address] 04/01/2024 12:35 PM EST - 04/01/2024 2:17 PM EST Surgery [place] [address] Apurva Vivas MD [facility] [place] [address] ANORECTAL EXAM, REQUIRING ANESTHESIA, DIAGNOSTIC (WRVU 1.8) 04/26/2024 3:00 PM EST Office [place] [address] Apurva Vivas MD [facility] [address] Scheduled Procedures Name Priority Associated Diagnoses Date/Ti [...] EDT) No Perri Sousa, [facility] Note: Patient's specific desired [...] on filedocumented in this encounter Care Teams Registered Medical Transcriptionist Relationship Specialty Start Date End Date Irwin Gonsalez DO [address] [place] [address] [address] [facility] [address] [place] [address] PCP - General 05/01/11 documented as of this encounter
--- OUTSIDE RECORDS SUMMARY | 2024-03-10 01:58 | XMS_ITS | Encounter Summary ---
Author [place] [address] Care Team Providers Care Flask Pusher Name Role Phone Irwin Gonsalez DO Primary Care Provider [phone] Encounter Details Date Type Department Care Team (Late st Contact Info) Description 02/20/2020 [place] [phone] Hayden Gutierrez CPHT Social History Tobacco Use [...] * Telephone Encounter - Hayden Gutierrez - 02/20/2020 3:21 PM EST Clinical Management Plan: Refill Specialty [...] Known Allergies Medication Reconciliation Discrepancies (compared to [facility] med list) No New medications: No New medical conditions: No New allergies: No Adherence: Any missed doses? No Are you experiencing any side effects from your medications? No Patient understands no changes to current drug regimen were made.. Hayden Gutierrez 02/20/20 3:21 PM documented in this encounter Plan of Treatment Upcoming Encounters Date Type Department Care Team (Latest Contact Info) Description 04/01/2024 12:35 PM EST Hospital Encounter [place] [address] Apurva Vivas MD [facility] [place] [address] 04/01/2024 12:35 PM EST - 04/01/2024 2:17 PM EST Surgery [place] [address] Apurva Vivas MD [facility] [place] [address] ANORECTAL EXAM, REQUIRING ANESTHESIA, DIAGNOSTIC (WRVU 1.8) 04/26/2024 3:00 PM EST Office Visit [place] [address] Apurva Vivas MD [facility] [place] [address] Scheduled Procedures Name Priority Associated Diagnoses Date/Ti [...] track( 017 9:39 PM EDT) Perri Hernandez, [facility] Note: Patient's specific desired goal: [...] on filedocumented in this encounter Care Teams Flask Pusher Relationship Specialty Start Date End Date Irwin Gonsalez DO [address] [place] [address] PCP - General 05/01/11 documented as of this encounter
--- OUTSIDE RECORDS SUMMARY | 2024-03-10 01:58 | XMS_ITS | Encounter Summary ---
[place] [address] Care Team Providers Care Compressor Stations Superintendent Name Role Phone Irwin Gonsalez DO Primary Care Provider [phone] Encounter Details Date Type Department Care Team (Late st Contact Info) Description 03/26/2020 Tele[place] [phone] London Albarado Social History Tobacco Use Types [...] * Telephone Encounter - London Albarado - 03/26/2020 10:20 AM EST Igor Woodruff [id number] Diagnosis/Indication: colonoscopy 1. Have you ever had a/an Colonoscopy before? Yes: Date 2016 If yes, did you have any problems with the procedure? No What type of sedation was used: IV Conscious Sedation 2. Do you take any Blood Thinners? No 3. Do you have a Pacemaker [...] sedation or anesthesia? No 9. Do you have a c-pap machine or oxygen tank? Neither 10. Do you take prescription narcotic pain medications, including suboxone or methodone? No 11. Do you have a preference regarding the gender of your provider? No Preference 12. Is there any other information you would like to give us to aid in scheduling? No 13. Say to patient: You must have a responsible republican who will drive you to your procedure, stay [place] for the entire duration of your procedure, and drive you home from your procedure? *Please Verify the height and weight, and adjust if height and/or weight have changed* Estimated body mass index is 30.24 kg/m?? as calculated from the following: Height as of 11/01/18: 182.9 cm (6'). Weight as of 10/13/19: 101.2 kg (223 lb). *Delete if not needed* Height: 6'0 Weight: 235 BMI: 31.9 Age:45 y.o. documented in this encounter Plan of Treatment Upcoming Encounters Date Type Department Care Team (Latest Contact Info) Description 04/01/2024 12:35 PM EST Hospital Encounter [place] [address] Apurva Vivas MD [facility] [place] [place] [address] 04/01/2024 12:35 PM EST - 04/01/2024 2:17 PM EST Surgery [place] [phone] Apurva Vivas MD [facility] [place] [address] ANORECTAL EXAM, REQUIRING ANESTHESIA, DIAGNOSTIC (WRVU 1.8) 04/26/2024 3:00 PM EST Office [place] [address] Apurva Vivas MD [facility] [place] [address] Scheduled Procedures Name Priority Associated Diagnoses Date/Ti me ANORECTAL EXAM, REQUIRING ANESTHESIA, DIAGNOSTIC (WRVU 1.8) perianal crohns disease w/fistula 04/01/2024 12:35 PM EST SURGICAL TREATMENT OF ANAL FISTULA COMPLEX OR MULTIPLE W\WO SETON PLACEMENT (WRVU 6.39) perianal crohns disease w/fistula 04/01/2024 12:35 PM EST documented as of this encounter Goals Goal Patient Goal Type Associated Problems Recent Progress Patient-Stated? Author [facility] Medication Compliance and Understanding Patient Facing Action Plan On track( 017 9:39 PM EDT) No ePrri Sousa, [facility] [...] on filedocumented in this encounter Care Teams Compressor Stations Superintendent Relationship Specialty Start Date End Date Irwin Gonsalez DO [address] [place] [address] [address] [place] [address] PCP - General 05/01/11 documented as of this encounter
--- OUTSIDE RECORDS SUMMARY | 2024-03-10 01:58 | XMS_ITS | Encounter Summary ---
[place] [address] Care Team Providers Care Construction And Maintenance Inspector Name Role Phone Irwin Gonsalez DO Primary Care Provider [phone] Reason for Visit * Reason Comments Medication Management Patient Education Encounter Details Date Type Department Care Team (Late st Contact Info) Description 05/14/2020 Specialty [place] [address] Mansoor Sapp RPH Social History Tobacco Use Types Packs/Day [...] Progress Notes * Mansoor Sapp RPH - 05/14/2020 10:16 AM EST Specialty Pharmacy Consultation; Mansoor Sapp RPH Comprehensive Medication Management (CMM) Igor Basurto Kacy Diagnosis: Crohn's Disease Therapy Start Date: 04/2016 Contact in person or via telephone: telephone Mr. Igor Woodruff is a 45 y.o. [...] the Clinical Assessment? Yes Summary and Recommendations: gIor Woodruff is a pleasant 45 y.o. male who was contacted for a consultation on Humira. The patient was able to verbalize understanding of the directions, storage requirements, clinical rationale, and possible adverse events of the medication. Proper injection technique was reviewed including rotation of injection sites, storage, and safe disposal of injection device. Allergies, medications, and medical conditions were reviewed at length including review for possible contraindications andinteractions. The patient was informed of the variety of services that the Specialty Pharmacy will provide to them as one of our patients. Igor reported no GI related symptoms except for on occasional sharp pain. Humira controls his symptoms and he does not need to be careful with what he eats. He is very happy with how it is working for him so far. He had no questions or concerns for me today. Clinic follow-up needed: no Allergies and Drug intolerance: No Known Allergies Problem List: Patient Active Problem List Diagnosis Code ??? 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 Abnormal liver function test R94.5 ??? GERD (gastroesophageal reflux disease) K21.9 Special Dietary or Hydration Requirements: no There is no height or weight on file to calculate BMI. Medication Reconciliation Discrepancies (compared to [facility] med list) no Medication Adherence Patient reported [...] beneficiary Provider: plan sponsor pharmacist Visit Type: [facility] [place] Method of Contact: by telephone Cognitive [...] the counter products discussed, preventative care discussed, recommendations to doctor discussed, reminder to refill or pickling drum operator medication discussed, self-monitoring discussed, start medication discussed, stop medication discussed, timing of medications discussed, lifestyle modification education, referral needs discussed [...] the counter products discussed, preventative care discussed, recommendations to doctor discussed, reminder to refill or pickling drum operator medication discussed, self-monitoring discussed, start medication discussed, stop medication discussed, timing of medications discussed, lifestyle modification education, referral needs discussed Time spent: 16-30 min Treatment Outcomes No data found in [...] Assessment: Does the patient have a primary career development director? yes - Irwin Gonsalez Does the patient have an emergency contact on file: Yes Does patient need referral to social work faculty member: No Does patient need referral to advocacy [...] Amount: $5 Day Supply: 28 Date Needed: 05/21/2020 Copay assistance required: no Therapy Assessment: Current Medication Dosing/Route/Frequency: Humira 40mg/0.4ml pen inject the contents of one pen subcutaneously every 7 days Appropriate Therapy: Yes Effective: yes - controls Crohn's symptoms Current GI-related Symptoms/Pain: no Recent GI Flaring: no Recent Systemic Corticosteroid Use: no Relapsing/Remitting Factors: no Patient-Reported Side Effects: no Recent Infections: no Patient Goals: Patient's specific desired goal: Goals ??? DH Home Medication Compliance and Understanding Patient's specific desired goal: Igor would like to stay adherent on Humira and maintain the improvement he has seen. We will continue to provide refill reminders to prevent gaps in therapy. Measured by: sx (pain, # BM, flaring, overall quality of life) Time-frame to meet goal: ongoing - pt has had adequate improvement, has no pain, no recent flares, good quality of life Measured by: Pt reported symptoms, clinic assessment Time-frame to meet goal: 6 months Is [...] Follow-up needed: No Interventions (if applicable): No none Patient experienced change in condition that affects treatment: no Additional care/services needed: no Educational information or adherence tools provided: No Additional equipment/supplies required: no Patient Counseling: Utilizing appropriate injection technique: yes - confirmed Rotation of Injection Sites: Yes Room Temperature Medication at Time of Injection: Yes Pharmacist follow-up needed: Yes Patient Satisfaction with Care/Services Provided: Yes Informed patient of specialty pharmacy services: Yes -Patient received welcome packet: yes - confirmed Date Received: 05/2016 Delivery Method: mail -Patient returned signed Rights & Responsibilities: yes - on file Date Received: 11/2017 Delivery Method: mail -Patient [...] were made at the appointment and [facility] (summary located at top of note) for provider review and follow up. Mansoor Sapp RPH 05/14/20 10:17 AM documented in this encounter Plan of Treatment Upcoming Encounters Date Type Department Care Team (Latest Contact Info) Description 04/01/2024 12:35 PM EST Hospital En[place] [address] Apurva Vivas MD [facility] [place] [address] 04/01/2024 12:35 PM EST - 04/01/2024 2:17 PM EST [place] [address] Apurva Vivas MD [facility] [place] [address] ANORECTAL EXAM, REQUIRING ANESTHESIA, DIAGNOSTIC (WRVU 1.8) 04/26/2024 3:00 PM EST Office [place] [address] Apurva Vivas MD [facility] [place] [address] Scheduled Procedures Name Priority Associated Diagnoses Date/Ti me ANORECTAL EXAM, REQUIRING ANESTHESIA, DIAGNOSTIC (WRVU 1.8) perianal crohns disease w/fistula 04/01/2024 12:35 PM EST SURGICAL TREATMENT OF ANAL FISTULA COMPLEX OR MULTIPLE W\WO SETON PLACEMENT (WRVU 6.39) perianal crohns disease w/fistula 04/01/2024 12:35 PM EST documented as of this encounter Goals Goal Patient Goal Type Associated Problems Recent Progress Patient-Stated? Author [facility] Medication Compliance and Understanding Patient Facing Action Plan On track( 017 9:39 PM EDT) No Perri Sousa, [facility] Note: Patient's specific desired goal: [...] on filedocumented in this encounter Care Teams Construction And Maintenance Inspector Relationship Specialty Start Date End Date Irwin Gonsalez DO [address] [place] [address] [address] [place] [address] PCP - General 05/01/11 documented as of this encounter
--- OUTSIDE RECORDS SUMMARY | 2024-03-10 01:58 | XMS_ITS | Encounter Summary ---
[place] [address] Care Team Providers Care Inventory Control Manager Name Role Phone Irwin Gonsalez DO Primary Care Provider Encounter Details Date Type Department Care Team (Late st Contact Info) Description 06/11/2020 [place] [phone] Vidya Santana, [employer] Social History Tobacco Use Types Packs/Day Years [...] * Telephone Encounter - Vidya Santana - 06/11/2020 9:58 AM EDT Clinical Management Plan: Refill Specialty Pharmacy Consultation; Vidya Santana Comprehensive Medication Management (CMM) Igor Sherine Monoznjoshua Mr. Igor Woodruff is a 45 y.o. [...] Allergies Medication Reconciliation Discrepancies (compared to [facility] med list) No New medications: No New medical conditions: No New allergies: No Adherence: Any missed doses? No Are you experiencing any side effects from your medications? No Patient understands no changes to current drug regimen were made.. Vidya Santana 06/11/20 9:58 AM documented in this encounter Plan of Treatment Upcoming Encounters Date Type Department Care Team (Latest Contact Info) Description 04/01/2024 12:35 PM EST Hospital Encounter [place] [address] Apurva Vivas MD [facility] [place] [place] [address] 04/01/2024 12:35 PM EST - 04/01/2024 2:17 PM EST Surgery [place] [address] Apurva Vivas MD [facility] [place] [address] ANORECTAL EXAM, REQUIRING ANESTHESIA, DIAGNOSTIC (WRVU 1.8) 04/26/2024 3:00 PM EST Office [place] [address] Apurva Vivas MD [facility] [place] [place] [address] Scheduled Procedures Name Priority Associated Diagnoses Date/Ti [...] 017 9:39 PM EDT) No Perri Sousa, [facility] Note: Patient's specific desired [...] on filedocumented in this encounter Care Teams Inventory Control Manager Relationship Specialty Start Date End Date Irwin Gonsalez DO [address] [place] [address] [address] [facility] [address] [place] [address] PCP - General 05/01/11 documented as of this encounter
--- OUTSIDE RECORDS SUMMARY | 2024-03-10 01:58 | XMS_ITS | Encounter Summary ---
[place] [address] Care Team Providers Care Director Medical Science Name Role Phone Irwin Gonsalez DO Primary Care Provider Reason for Visit * Reason Comments Specialty Refill Management Encounter Details Date Type Department Care Team (Late st Contact Info) Description 12/24/2020 Specialty [place] [address] Hayden Gutierrez CPHT Social History [...] encounter Progress Notes * Hayden Gutierrez - 12/24/2020 10:33 AM EDT Clinical Management Plan: Refill Specialty [...] Known Allergies Medication Reconciliation Discrepancies (compared to [facility] med list) No Specialty Pharmacy Refill Questionnaire Refill Questionnaire 12/24/2020 What is the name of the specialty medication you are refilling? Humira Are you taking any new medications? No Any new medical condition? No Any new allergies? No Any new side effects that are bothersome? No What date will you need this fill by? 12/31/2020 Adherence: Any missed doses? No Patient understands no changes to current drug regimen were made. Hayden Gutierrez 12/24/20 11:04 AM documented in this encounter Plan of Treatment Upcoming Encounters Date Type Department Care Team (Latest Contact Info) Description 04/01/2024 12:35 PM EST Hospital Encounter [place] [address] Apurva Vivas MD [facility] [address] 04/01/2024 12:35 PM EST - 04/01/2024 2:17 PM EST Surgery [place] [address] Apurva Vivas MD [facility] [place] [address] ANORECTAL EXAM, REQUIRING ANESTHESIA, DIAGNOSTIC (WRVU 1.8) 04/26/2024 3:00 PM EST Office [place] [address] Apurva Vivas MD [facility] [place] [address] Scheduled Procedures Name Priority Associated Diagnoses Date/Ti [...] track( 017 9:39 PM EDT) Perri Hernandez, [facility] Note: Patient's specific desired goal: Igor [...] filedocumented in this encounter Care Teams Director Medical Science Relationship Specialty Start Date End Date Irwin Gonsalez DO [address] [place] [address] PCP - General 05/01/11 documented as of this encounter
--- OUTSIDE RECORDS SUMMARY | 2024-03-10 01:58 | XMS_ITS | Encounter Summary ---
Author Organization [facility] [place] [address] Care Team Providers Care Switchbox Assembler Name Role Phone Irwin Gonsalez DO Primary Care Provider Reason for Referral * Consultation (Routine) - Closed Specialty Diagnoses / Procedures Referred By Haresh powers Referred To Contact Gastroenterology Diagnoses Crohn's disease of ileum with other complication Ramonita Pandey MD [facility] [place] [address] [facility] End[address] [place] [address] Referral ID Status Reason Start Date Expiration Date V isits Requested Visits Authorized [id number] Closed Consult, Test & Treat 10/19/2019 10/18/2020 1 1 Encounter Details Date Type Department Care Team (Late st Contact Info) Description 10/19/2019 Orders [place] [address] Ramonita Pandey MD [facility] [place] [address] Crohn's disease of ileum with [...] PM EST Hospital Encounter [place] [address] Apurva Vivas MD [facility] [place] [address] 04/01/2024 12:35 PM EST - 04/01/2024 2:17 PM EST Surgery [place] [address] Apurva Vivas MD [facility] [place] [address] ANORECTAL EXAM, REQUIRING ANESTHESIA, DIAGNOSTIC (WRVU 1.8) 04/26/2024 3:00 PM EST Office [place] [address] Apurva Vivas MD [facility] [place] [address] Scheduled Procedures Name Priority Associated Diagnoses Date/Ti me ANORECTAL EXAM, REQUIRING ANESTHESIA, DIAGNOSTIC (WRVU 1.8) perianal crohns disease w/fistula 04/01/2024 12:35 PM EST SURGICAL TREATMENT OF ANAL FISTULA COMPLEX OR MULTIPLE W\WO SETON PLACEMENT (WRVU 6.39) perianal crohns disease w/fistula 04/01/2024 12:35 PM EST Scheduled Referrals Name Type Priority Associated Diagnoses Order Schedule Referral to Gastroenterology Outpatient Referral Routine Crohn's disease of ileum with other complication Ordered: 10/19/2019 documented as of this encounter Goals Goal Patient Goal Type Associated Problems Recent Progress Patient-Stated? Author DH Home Medication Compliance and Understanding Patient Facing Action Plan On track( 017 9:39 PM EDT) Perri Hernandez, [facility] Note: Patient's [...] complication documented in this encounter Care Teams Switchbox Assembler Relationship Specialty Start Date End Date Irwin Gonsalez DO [address] [place] [address] PCP - General 05/01/11 documented as of this encounter
--- OUTSIDE RECORDS SUMMARY | 2024-03-10 01:58 | XMS_ITS | Encounter Summary ---
[place] [address] Care Team Providers Care Traffic Workforce Representative Name Role Phone Irwin Gonsalez DO Primary Care Provider Encounter Details Date Type Department Care Team (Late st Contact Info) Description 01/21/2021 Specialty Pharm[place] [address] Jamey Fernandez CPHT Social History Tobacco Use Types Packs/Day [...] as of this encounter Progress Notes * Jamey Fernandez CPHT - 01/21/2021 10:20 AM EST Clinical Management Plan: Refill Specialty Pharmacy Consultation; Jamey Fernandez CPHT Comprehensive Medication Management (CMM) Igor Basurto Kacy Mr. Igor Woodruff is a 46 [...] Known Allergies Medication Reconciliation Discrepancies (compared to [facility] med list) No Specialty Pharmacy Refill [...] changes to current drug regimen were made. Jamey Fernandez CPHT 02/20/21 1:26 PM documented in this encounter Plan of Treatment Upcoming Encounters Date Type Department Care Team (Latest Contact Info) Description 04/01/2024 12:35 PM EST Hospital Encounter [place] [address] Apurva Vivas MD [facility] [place] [address] 04/01/2024 12:35 PM EST - 04/01/2024 2:17 PM EST [place] [address] Apurva Vivas MD [facility] [place] [address] ANORECTAL EXAM, REQUIRING ANESTHESIA, DIAGNOSTIC (WRVU 1.8) 04/26/2024 3:00 PM EST Office Visit [place] [address] Apurva Vivas MD [facility] [place] [address] Scheduled Procedures Name Priority Associated Diagnoses Date/Ti [...] 017 9:39 PM EDT) No Perri Sousa, [facility] Note: Patient's specific desired [...] on filedocumented in this encounter Care Teams Traffic Workforce Representative Relationship Specialty Start Date End Date Irwin Gonsalez DO [address] [place] [address] PCP - General 05/01/11 documented as of this encounter
--- OUTSIDE RECORDS SUMMARY | 2024-03-10 01:58 | XMS_ITS | Encounter Summary ---
[place] [address] Care Team Providers Care Processing Assistant Name Role Phone Irwin Gonsalez DO Primary Care Provider [phone] Reason for Visit * Reason Comments Prior Authorization Humira penkit 40mg/0 ,4mL Encounter Details Date Type Department Care Team (Late st Contact Info) Description 08/06/2020 Specialty [place] [phone] Pawan Gomez Social History Tobacco Use Types Packs/Day Years [...] as of this encounter Progress Notes * Pawan Gomez - 08/06/2020 4:27 PM EDT [facility], Medication Prior Authorization Patient: Igor Woodruff Patient : 1975 Patient Address: [address] [facility] [address] (home) Medication Name: HUMIRA(CF) PEN 40 MG/0.4 ML SUBCUTANEOUS KIT Medication ID: Patient Location: [facility] Patient Location Comment: Subscriber Insurance: [facility] Subscriber Insurance Comment: Phone: Fax: Physician: Ramonita MATAMOROS Physician Comment: Sent Via: REPLACED BY [facility] Orellana: [id number] Ref/Case/PA#: Medication Strength Frequency Requested: Humira 40mg/0.4mL inject the contents of one pen subq every 7 days Qty/Day Supply: 07/11 New Start: Renewal Diagnosis & ICD-10 Code: K50.018 Patient Notified: No Submission Notes: None Pawan Gomez 08/06/20 4:29 PM * Frederick Tamez - 08/06/2020 4:27 PM EDT [facility], Prior Authorization Approval Medication Name: HUMIRA(CF) PEN 40 MG/0.4 ML SUBCUTANEOUS KIT Medication ID: [id number] Approval Dates: 07/07/2020 to 08/06/2021 Insurance requirements/notes: None Other Notes: None Case/Reference #: [id number] Approval notification Received via: REPLACED BY [facility] Copay: $5.00 Copay assistance: None Copay Notes: Copay is $5.00 no need to look for copay assistance Insurance mandated Pharmacy: Fillable at [facility]: Yes Pharmacy staff will be reaching out to the patient to inform them of their [facility]. If applicable, a pharmacist will speak with the patient to offer our specialty pharmacy services and to arrange delivery of their medication. Frederick Tamez 08/07/20 2:48 PM documented in this encounter Plan of Treatment Upcoming Encounters Date Type Department Care Team (Latest Contact Info) Description 04/01/2024 12:35 PM EST Hospital Encounter [place] [address] [facility] [place] [address] 04/01/2024 12:35 PM EST - 04/01/2024 2:17 PM EST Surgery [place] [address] [facility] [place] [address] ANORECTAL EXAM, REQUIRING ANESTHESIA, DIAGNOSTIC (WRVU 1.8) 04/26/2024 3:00 PM EST Office [place] [address] [facility] [place] [address] Scheduled Procedures Name Priority Associated Diagnoses Date/Ti me ANORECTAL EXAM, REQUIRING ANESTHESIA, DIAGNOSTIC (WRVU 1.8) perianal crohns disease w/fistula 04/01/2024 12:35 PM EST SURGICAL TREATMENT OF ANAL FISTULA COMPLEX OR MULTIPLE W\WO SETON PLACEMENT (WRVU 6.39) perianal crohns disease w/fistula 04/01/2024 12:35 PM EST documented as of this encounter Goals Goal Patient Goal Type Associated Problems Recent Progress Patient-Stated? Author [facility] Medication Compliance and Understanding Patient Facing Action Plan On track( 017 9:39 PM EDT) Perri Hernandez, [facility] [...] on filedocumented in this encounter Care Teams Processing Assistant Relationship Specialty Start Date End Date Irwin Gonsalez DO [address] [place] [address] PCP - General 05/01/11 documented as of this encounter
--- OUTSIDE RECORDS SUMMARY | 2024-03-10 01:58 | XMS_ITS | Encounter Summary ---
[place] [address] Care Team Providers Care Nuclear Cardiology Technologist Name Role Phone Irwin Gonsalez DO Primary Care Provider Reason for Visit * Reason Comments Specialty Refill Management Encounter Details Date Type Department Care Team (Late st Contact Info) Description 07/09/2020 Specialty [place] [address] Hayden Gutierrez CPHT Social History [...] encounter Progress Notes * Hayden Gutierrez - 07/09/2020 10:38 AM EDT Clinical Management Plan: Refill Specialty [...] Known Allergies Medication Reconciliation Discrepancies (compared to [facility] med list) No Specialty Pharmacy Refill Questionnaire Refill Questionnaire 07/09/2020 What is the name of the specialty medication you are refilling? Humira Are you taking any new medications? No Any new medical condition? No Any new allergies? No Any new side effects that are bothersome? No Adherence: Any missed doses? No Patient understands no changes to current drug regimen were made.. Hayden Gutierrez 07/09/20 10:39 AM documented in this encounter Plan of Treatment Upcoming Encounters Date Type Department Care Team (Latest Contact Info) Description 04/01/2024 12:35 PM EST Hospital Encounter [place] [address] Apurva Vivas MD [facility] [place] [address] 04/01/2024 12:35 PM EST - 04/01/2024 2:17 PM EST Surgery [place] [address] Apurva Vivas MD [facility] [place] [address] ANORECTAL EXAM, REQUIRING ANESTHESIA, DIAGNOSTIC (WRVU 1.8) 04/26/2024 3:00 PM EST Office [place] [address] Apurva Vivas MD [facility] [place] [address] Scheduled Procedures Name Priority Associated Diagnoses Date/Ti [...] 9:39 PM EDT) Perri Hernandez, [facility] Note: Patient's [...] filedocumented in this encounter Care Teams Nuclear Cardiology Technologist Relationship Specialty Start Date End Date Irwin Gonsalez DO [address] [place] [address] PCP - General 05/01/11 documented as of this encounter
--- OUTSIDE RECORDS SUMMARY | 2024-03-10 01:58 | XMS_ITS | Encounter Summary ---
[place] [address] Care Team Providers Care Respiratory Physician Name Role Phone Irwin Gonsalez DO Primary Care Provider Reason for Visit * Reason Comments Medication Management Patient Education Encounter Details Date Type Department Care Team (Late st Contact Info) Description 05/16/2019 Specialty [place] [phone] Rhea Aldridge RPH Social History Tobacco Use [...] Progress Notes * Rhea Aldridge RPH - 05/16/2019 9:09 AM EST Specialty Pharmacy Consultation; Rhea Aldridge RPH Comprehensive Medication Management (CMM) Igor Sherine Kacy Diagnosis: Crohn's Disease Therapy Start Date: 04/22/2016 Contact in person or via telephone:Telephone Mr. [...] for the treatment of Crohn's disease. Patient is aware of the $5.00 copay and was given [facility] contact information for any questions. Patient was educated on the importance of infection prevention including best practices for hand hygiene and the annual flu vaccine. Discussed the need to avoid live vaccines during treatment. Dose hold parameters were reviewed including suspected/known infection, prescribed antibiotic therapy, or scheduled surgery. Patient agrees to contact the clinic to review dose hold in these settings. Patient is not experiencing any of the potential side effects of Humira including injection site reaction, headache, rash, and infections such as URTI/sinusitis. A review of dosing, storage, and administration was completed. Patient is completing the dosing schedule, 40 mg subcutaneously every 2 weeks. Patient is storing the Humira in the refrigerator. Patient is performing proper site rotation, site sterilization, and allowing the medication to reach room t emperature prior to injection. Patient has no questions on the self injection process. Patient declined needing a new sharps container at this time. Patient states he might have a Humira dose change in the future. His doctor has mentioned changing to every 7 day injections. He states he will touch base with his doctor on whether or not that change is necessary. Clinic follow-up needed: no Allergies and Drug intolerance: No Known Allergies Special Dietary or Hydration Requirements: no There is no height or weight on file to calculate BMI. Medication Reconciliation Discrepancies (compared to [facility] med list) no Medication Adherence Patient reported [...] Outpatient Medications Medication Sig Dispense Refill ??? azaTHIOprine (Imuran) 50 mg Tablet TAKE 5 TABLETS BY MOUTH ONCE DAILY 150 tablet 1 ??? Adalimumab 40 mg/0.8 mL Pen Injector Kit Inject 0.8 mLs subcutaneously every 14 days. 2 Pen 5 ??? acetaminophen (TYLENOL) 325 mg Tablet Take [...] (6') Wt Readings from Last 3 Encounters: 11/01/18 105.9 kg (233 lb 6.4 oz) 10/19/17 102.1 kg (225 lb) 02/19/17 (!) 108.3 kg (238 lb 12.8 oz) Temp Readings from Last 3 Encounters: 06/04/16 36.7 ??C (98.1 ??F) 05/23/16 36.2 ??C (97.2 ??F) (Temporal) 05/02/16 36.3 ??C (97.3 ??F) (Temporal) BP Readings from Last 3 Encounters: 11/01/18 (!) 144/103 10/19/17 (!) 149/100 02/19/17 (!) 155/92 Pulse Readings from Last 3 Encounters: 11/01/18 87 10/19/17 88 02/19/17 88 Pertinent Lab values: Lab Results Component Value Date NA 142 10/19/2017 K 4.0 10/19/2017 CL 101 10/19/2017 CO2 27 10/19/2017 BUN 15 10/19/2017 CREATININE 0.89 10/19/2017 GLUCOSE 94 10/19/2017 GLUCFASTING 123 (H) 11/01/2010 CALCIUM 9.8 10/19/2017 Lab Results Component Value Date ALT 66 (H) 11/01/2018 AST 40 (H) 11/01/2018 ALKPHOS 51 11/01/2018 BILITOT 1.3 11/01/2018 BILIDIR 0.2 11/01/2018 ALBUMIN 4.4 11/01/2018 PROT 7.4 11/01/2018 Lab Results Component Value Date WBC 5.2 11/01/2018 HGB 14.7 11/01/2018 HCT 43.8 11/01/2018 MCV 91.8 11/01/2018 PLATELET 270 11/01/2018 No results found for: HA1C Immunization History Administered Date(s) Administered ??? Pneumococcal Conjugate (13 Valent) 2017 ??? Pneumococcal Polyvalent 23 10/10/2014 Assessment and Recommendations: Title Type of Medication Management: chronic disease management, targeted medication review Referred By: provider Recipient: beneficiary Provider: plan sponsor pharmacist [place] [facility] [place] Method of Contact: by telephone Cognitive [...] preventative care discussed, reminder to refill or olive picker medication discussed, self-monitoring discussed, timing of [...] preventative care discussed, reminder to refill or olive picker medication discussed, self-monitoring discussed, timing of [...] mitigation strategies, and interruptions in therapy: Yes Economic Assessment: Patient is agreeable to medication copay: yes Copay Amount: $5.00 Day Supply: 28 Date Needed: 05/23/2019 Copay assistance required: no Physical Assessment: Functional limitations identified: no Is patient a fall risk: no Cognitive limitations identified such as orientation, memory, reasoning or judgement: no Other: no Social Assessment: Does the patient have a primary care program resident? no Patient has emergency contact on file: Yes Does patient need referral to social work instructor: No Does patient need referral to advocacy group: No Physical and Home Health Assessment: Is the patient able to store their medication as directed? Yes Is the patient in a safe home environment? Yes Do you have a support network? Yes Reviewed potential home safety hazards: Yes Therapy Assessment: Appropriate Therapy: Yes Current Medication Dosing/Route/Frequency: Humira 40mg/0.8mls - Inject the contents of 1 pen subcutaneously every 14 days Effective: yes - Patient is happy with current therapy Current GI-related Symptoms/Pain: no Recent GI Flaring: no Recent Systemic Corticosteroid Use: no Relapsing/Remitting Factors: no Patient experienced change in condition that affects treatment: no Patient experienced side effects from your medication no Recent Infections: no Utilizing appropriate injection technique: yes - Patient is comfortable with self injection process Rotation of Injection Sites: Yes Room Temperature Medication at Time of Injection: Yes Patient Goals: Goals ??? DH Home Medication Compliance and [...] no recent flares, good quality of life Is the patient on track to achieve goals of therapy? yes If no, what are the barriers and action plan to reach the goal: N/A Interventions (if applicable): No Additional care/services needed: no Educational information or adherence tools provided: No Additional equipment/supplies required: no Care Plan Reviewed and Approved by both Pharmacist and Patient: Yes Did Care Plan Change? No If yes: Change to plans of care based on: Patient's request: N/A Condition: N/A Response to therapy: N/A Provider request: N/A Follow-up needed: No Informed patient of specialty pharmacy services: Yes -Patient received welcome packet: Yes Date Received: 05/23/2016 Delivery Method: Mail -Patient returned signed Rights & Responsibilities: Yes Date Received: 11/20/2017 Delivery Method: Mail -Patient is aware a licensed pharmacist is available 24 hours a day, 7 days a week to discuss medication-related questions or concerns: Yes -Patient verbalizes understanding of education on the common side effect profile of the medication:Yes -The patient is able to call 911 or seek urgent care if signs/symptoms of allergy or harmful adverse reactions occur: Yes Patient Satisfaction with Therapy: yes - Patient is happy with current regimen - he states he mightswitch to q7days, but is going to be following up with MD on whether or not that is necessary Patient understands no changes to current drug regimen were made at the appointment and that [facility] isproviding recommendations (summary located at top of note) for provider review and follow up. Rhea Aldridge RPH 05/16/19 9:11 AM documented in this encounter Plan of Treatment Upcoming Encounters Date Type Department Care Team (Latest Contact Info) Description 04/01/2024 12:35 PM EST Hospital Encounter [place] [phone] Apurva Vivas MD [facility] [place] [address] 04/01/2024 12:35 PM EST - 04/01/2024 2:17 PM EST Surgery [place] [phone] Apurva Vivas MD [facility] [place] [address] ANORECTAL EXAM, REQUIRING ANESTHESIA, DIAGNOSTIC (WRVU 1.8) 04/26/2024 3:00 PM EST Office [place] [phone] Apurva Vivas MD [facility] [place] [address] Scheduled Procedures Name Priority Associated Diagnoses Date/Ti [...] 017 9:39 PM EDT) No Perri Sousa, [facility] Note: Patient's specific [...] on filedocumented in this encounter Care Teams Respiratory Physician Relationship Specialty Start Date End Date Irwin Gonsalez DO [address] [facility] [address] [place] [address] PCP - General 05/01/11 documented as of this encounter
--- OUTSIDE RECORDS SUMMARY | 2024-03-10 01:58 | XMS_ITS | Encounter Summary ---
Author Organization [facility] Address [facility] [place] [address] Care Team Providers Care Life Specialist Name Role Phone Irwin Gonsalez DO Primary Care Provider Reason for Visit * Consultation (Urgent) - Closed Specialty Diagnoses / Procedures Referred By Haresh powers Referred To Contact General Surgery Diagnoses Crohn's disease of ileum with other complication Ramonita Matamoros MD [facility] [place] [address] Brent De Los Santos PA [facility] [place] [address] Referral ID Status Reason Start Date Expiration Date V isits Requested Visits Authorized [id number] Closed Consult, Test & Treat 10/03/2019 10/02/2020 1 1 Encounter Details Date Type Department Care Team (Late st Contact Info) Description 10/13/2019 4:00 PM EDT Office Visit General Surgery at [facility] [place] [address] Brent De Los Santos PA Crohn's disease of perianal region with fistula; Crohn's disease involving terminal ileum Social History Tobacco Use Types Packs/Day Years [...] Sign Reading Time Taken Comments Blood Pressure 133/90 10/13/2019 4:05 PM EDT Pulse 86 10/13/2019 4:05 PM EDT Temperature 36.9 ??C (98.4 ??F) 10/13/2019 4:05 PM ED T Respiratory Rate 18 10/13/2019 4:05 PM EDT Oxygen Saturation 98% 10/13/2019 4:05 PM EDT Inhaled Oxygen Concentration - - Weight 101.2 kg (223 lb) 10/13/2019 4:05 PM EDT Height - - Body Mass Index 30.24 11/01/2018 8:41 AM EDT documented in this encounter Progress Notes * Brent De Los Santos PA - 10/13/2019 4:00 PM EDT Outpatient Consultation ~ Division of Colon and Rectal Surgery ~ [facility] CC: No chief complaint on file. Referring Provider: Ramonita Matamoros Primary Care Provider: Irwin Gonsalez DO HPI: Laly Toure is a 44-year-old man who lives in [place]. Diagnosed with ileal Crohn's disease at age 17 underwent ileocolic resection in October 2010 for severe active inflammation patient and fibrosis with enteroenteric fistula. Systemic therapy: Humira, azathioprine. He has since stopped azathioprine in March 2019 His most recent imaging includes an MRI and February 2019 which was normal. He recently had a telehealth visit with our colleagues in gastroenterology. He noted some perianal pain. The patient previously had a seton in the right perianal region which [place] [address]Lauren Vivas. Approximately 2 months ago patient noted that the seton had self extracted. Since that time the patient notes intermittent plugging and release of fluid from the area posterior to the site of the seton. He notes that it is a distinctly new area which has become more painful with drainage. Past medical history: Past Medical History: Diagnosis Date ??? ABNORMAL LIVER FUNCTION TEST 07/07/2010 ??? Crohn's ileitis 07/07/2010 ??? GERD (gastroesophageal reflux disease) 07/07/2010 Past surgical history: Past Surgical History: Procedure Laterality Date ??? APPENDECTOMY 1999 ??? MENISCECTOMY 2002 arthroscopic, R knee ??? PRG FLUOROSCOPY EXAM UP TO 1 HR PHY OR OTH HLTH CARE PROV Left 05/02/2016 FLUOROSCOPY (WRVU 0.17) performed by Dougie Husain Jr., MD at [facility] ??? PRG FLUOROSCOPY EXAM UP TO 1 HR PHY OR OTH HLTH CARE PROV Left 05/23/2016 FLUROSCOPY:UP TO ONE HOUR (WRVU 0.17) performed by Dougie Husain Jr., MD at [facility] ??? PRO COLONOSCOPY, BIOPSY 05/01/2011 COLONOSCOPY FLEXIBLE, WITH BX performed by Ramonita MATAMOROS at [facility] ENDOSCOPY ??? PRO COLONOSCOPY, DIAGNOSTIC 02/25/2013 COLONOSCOPY, DIAGNOSTIC performed by Ramonita Matamoros MD at [facility] ENDOSCOPY ??? PRO COLONOSCOPY, DIAGNOSTIC N/A 02/09/2017 COLONOSCOPY, DIAGNOSTIC performed by Corky Hollingsworth MD at [facility] ENDOSCOPY ? ? PRO CYSTO W URETEROSCOPY &/OR PYELOSCOPY, DX Left 05/02/2016 CYSTOURETEROSCOPY, DIAGNOSTIC (WRVU 5.75) performed by Dougie Husain Jr., MD at [facility] ??? PRO CYSTO/URETEROSCOPY W/LITHOTRIPSY INC INDWELLING STENT INSERTION Left 05/23/2016 CYSTOURETEROSCOPY,DIAGNOSTIC,W/ LITHOTRIPSY INC. INSERTION OF INDWELLING URETERAL STENT (WRVU 8) performed by Dougie Husain Jr., MD at [facility] ??? PRO CYSTOSCOPY, INSERT URETERAL STENT Left 05/02/2016 CYSTO, STENT PLACEMENT (WRVU 2.82) performed by Dougie Husain Jr., MD at [facility] ??? PRO CYSTOSCOPY, REMV CALCULUS, SIMPLE Left 05/23/2016 CYSTO, REMOVAL OF STENT, FOREIGN BODY OR CALCULUS, SIMPLE (WRVU 2.81) performed by Dougie Husain Jr., MD at [facility] ??? PRO CYSTOURETHROSCOPY, URETER CATHETER Left 05/02/2016 CYSTO, RETROGRADE, URETEROPYELOGRAPHY (WRVU 2.37) performed by Dougie Husain Jr., MD at [facility] ??? PRO CYSTOURETHROSCOPY, URETER CATHETER Left 05/23/2016 CYSTO, RETROGRADE, URETEROPYELOGRAPHY (WRVU 2.37) performed by Dougie Husain Jr., MD at [facility] ??? PRO LAP, SURG, COLECTOMY, W/REMVL TERM ILEUM 10/29/2010 ??LAPAROSCOPIC ASSISTED COLECTOMY, PARTIAL, REM.TERMINAL ILEUM performed by TORITO MOHAN at [facility] MAIN OR ??? PRO PLACEMENT, SETON N/A 02/26/2016 ANAL SETON PLACEMENT (WRVU 3) performed by Apurva Vivas MD at [facility] MAIN OR ??? PRO SURG DIAGNOSTIC EXAM, ANORECTAL N/A 02/26/2016 ANORECTAL EXAM, REQUIRING ANESTHESIA, DIAGNOSTIC (WRVU 1.8) performed by Apurva Vivas MD at [facility] OR Allergies: Patient has no known allergies. Medications: Current Outpatient Medications on File Prior to Visit Medication Sig Dispense Refill ??? adalimumab (Humira,CF, Pen) 40 mg/0.4 mL Pen Injector Kit Inject 40 mg subcutaneously every 7 days. 6 kit 1 ??? [...] current alcohol use of about 1.0 standard drinks of alcohol per week. He reports that he does not usedrugs. Family medical history: The patient denies a family history of colorectal cancer, colorectal polyps, diverticular disease, Crohn disease and ulcerative colitis Review of Systems: Physical Exam: Patient Vitals for the past 24 hrs: Temp Pulse Resp BP SpO2 10/13/19 1605 36.9 ??C (98.4 ??F) 86 18 133/90 98 % General Appearance: Normal, healthy appearing Male,no acute distress, anicteric Respiratory: excellent chest expansion, symmetric chest rise, clear to auscultation bilaterally, nowheezes noted Cardiac: Regular rate and rhythm, no murmurs noted, normal S1, S2, Abdomen: soft, nontender, nondiseased. Lymph nodes: No abnormal occipital, cervical, axillary, inguinal, femoral nodes on either side. Anorectal exam: The patient has relatively normal-appearing anoderm. On the right perianal skin there is an active fistula which is draining pus the patient confirms that this was the site of the prior seton. More posterior to this again in the right posterior quadrant, there is another area of swelling which is covered by skin with gentle pressure we were manually able to express pus from this. We then advanced a lacrimal probe into both of these areas and confirmed the presence of a fistula. See procedural note for placement of seton in the right posterior quadrant perianal fistula tract. Brief Operative Note Patient Name: Laly Toure : [id number] MR#: [id number] Case Date: 10/13/2019 Surgeon: MARCOS Garibay Preoperative diagnosis: Fistula in ano Postoperative diagnosis: Same. Anesthesia: Lidocaine gel per rectum Findings: 2 active fistula tracts. One in the right posterior quadrant which tracks radially towards the midline the blue vessel vessel loop seton was placed in this tract. There is a right lateral fistula tract actively draining material. However, the patient is refusing placement at this time. Operative details: The patient was positioned on the procedural table in the prone jackknife position. A procedural pause was held. Next a lacrimal probe was advanced and the fistulous opening in theperianal skin in the right posterior quadrant l While performing digital rectal examination the tipof the probe was advanced into the anal canal at the approximate level of the dentate line. Next having established a fistulous communication with the external skin the lacrimal probe was removed and a Cotton mammary probe was advanced down the same tract. The mammary probe was fashioned into a J shape to facilitate passage through the anal canal. A 2-0 silk was tied to the eye of theprobe and the probe was pulled through leaving the 2-[address]. Next after removing the Cotton probe a blue vessel loop was secured to the 2-0 silk and in similar fashion was exchanged again through the fistulous tract. The 2-0 silk was removed and a blue vessel loop was fashioned into a loop and temporarily secured with a mosquito clamp next 2-0 silk ties were used to make the seton f ast and tied in our standard interrupted fashion. The wound was inspected for adequate hemostasis and having felt satisfied we completed the procedure. The patient tolerated the procedure well and there were no immediate complications. Complications: None Estimated Blood Loss: 0 Specimens removed during surgery: None Fluids: None Urine Output: None Drains: Right posterior quadrant blue vessel loop seton Disposition: Home directly from clinic Condition: doing well without problems (Please see the Surgical Encounter Summary for any Implant and Specimen details pertinent to this patient.) Infection Bundle used? N/A Surgical Pathology Report Date Value Ref Range Status 02/24/2013 Final [facility] Provider: DIONY ESTRADA Pt. Name: LALY TOURE Acc #: [id number] Pt. Col Date: 02/24/2013 /Sex: 1975,(38 years),Male Rec Date: 02/24/2013 LOC: [facility] SURGICAL PATHOLOGY ---Pathologic Diagnosis--- Skin, left mid back, shave biopsy only: Lentiginous compound dysplastic nevus with moderate atypia, focally extending to the peripheral specimen edge (see Comment). CR-0 Dictated by: Guadalupe Guerrero MD Dermatopathology Fellow As the attending physician, I attest that I examined the histologic slides, and confirm Dr. Guadalupe Guerrero' diagnosis. 02/25/13 [facility] 02/26/13 Verified by: Lawrence JONES, PhD, [facility] Dermatopathologist (Electronic Signature) The attending pathologist whose signature appears on this report has reviewed all diagnostic slides and has edited the gross and/or microscopic portion of the report in rendering the final pathologic diagnosis. ---Comment--- Multiple deeper levels have been examined. Dr. Batista has reviewed this case and concurs with this diagnosis. ---Gross Description--- A - Labeled/Fixative: Patient demographics, formalin. Quantity/Size: Single, 1.2 x 1.0 x 0.1 cm. Tissue Description: Shave of mazariegos-white skin with a central 0.8 x 0.8 cm, symmetrical dark brown macule. Sections/Processing: The specimen is inked and serially sectioned. The ends are submitted in (1); the remainder in (2). (T2) ejr ---Clinical Information--- Specimen Submitted: A - Skin left mid back shave biopsy only (1) Clinical History: [facility] Provider: DIONY ESTRADA Pt. Name: LALY TOURE Acc #: [id number] Pt. Col Date: 02/24/2013 /Sex: 1975,(38 years),Male Rec Date: 02/24/2013 LOC: [facility] 8 mm dark brown macule SURGICAL PATHOLOGY Clinical Diagnosis: Atypical nevus No components found for: CT CHEST No components found for: CT ABDOMEN AND PELVIS COLONOSCOPY Date Value Ref Range Status 02/09/2017 Final [facility] Endoscopy Procedure Date: 02/09/2017 4:16 PM Patient Name: Laly Toure Date of : 1975 Age: 41 Order #: [id number] Instrument Name: [id number] Procedure: Colonoscopy Indications: Disease activity assessment of Crohn's disease of the small bowel, Assess therapeutic response to therapy of Crohn's disease of the small bowel Patient Profile: This is a 41 year old male. This patient has small bowel Crohn's disease with perianal involvement, is taking adalimumab and azathioprine and is asymptomatic. Providers: Corky Hollingsworth MD, Diony Roblero Referring MD: Irwin Gonsalez DO Requesting Provider: Angelo Matamoros MD Medicines: Midazolam 4 mg IV, Fentanyl 200 micrograms IV Complications: No immediate complications. Procedure: Pre-Anesthesia Assessment: - Prior to the procedure, a History and Physical was performed, and patient medications and allergies were reviewed. The patient's tolerance of previous anesthesia was also reviewed. The risks and benefits of the procedure and the sedation options and risks were discussed with the patient. All questions were answered, and informed consent was obtained. Prior Anticoagulants: The patient has taken no previous anticoagulant or antiplatelet agents. ASA Grade Assessment: I - A normal, healthy patient. After reviewing the risks and benefits, the patient was deemed in satisfactory condition to undergo the procedure. The procedure, indications, benefits, risks [...] difficulty. The patient tolerated the procedure well. The quality of the bowel preparation was evaluated using the BBPS (B[place]ell Bowel Preparation Scale) with scores of: Right Colon = 2 (minor amount of residual staining, small fragments of stool and/or opaque liquid, but mucosa seen well), Transverse Colon = 3 (entire mucosa seen well with no residual staining, small fragments of stool or opaque liquid) and Left Colon = 2 (minor amount of residual staining, small fragments of stool and/or opaque liquid, but mucosa seen well). The total BBPS score equals 7. The terminal ileum, the rectum and Ileocolonic anastomosis were photographed. Findings: The perianal exam findings include seton in posterior mid-line. There was evidence of a prior end-to-side ileo-colonic anastomosis in the ascending colon. This was patent and was characterized by a focal area along the anastomotic suture line with some friable mucosa and two superficial aphthae. The anastomosis was otherwise normal and healthy and easily traversed. The galen-terminal ileum was examined to 30 cm with no evidence of active inflammation or Crohn's disease. The exam was otherwise normal throughout the examined colon. The retroflexed view of the distal rectum and anal verge was normal and showed no anal or rectal abnormalities aside from seton. Moderate Sedation: I was present during the intraservice time as documented by the sedation RN. Impression: - Seton in posterior mid-line found on perianal exam. - Patent end-to-side ileo-colonic anastomosis, characterized by focal area of friable mucosa at the anastomosis. - Terminal ileum is otherwise normal. - The distal rectum and anal verge are otherwise normal on retroflexion view. - No specimens collected. Recommendation: - Follow-up in IBD Clinic. - Continue Humira. Can discuss stopping Azathioprine with Dr. Matamoros. Attending Participation: I personally performed the entire procedure. I was present during the intraservice time as documented by the sedation RN. Dr. Remy Hollingsworth Corky Hollingsworth MD 02/09/2017 5:02:01 PM Number of Addenda: 0 Note Initiated On: 02/09/2017 4:16 PM COREFO: COREFO Responses 12/26/2015 03/26/2016 10/24/2016 10/13/2019 Incontinence Scale 2.77 0 2.77 5.55 Social Impact Scale 30.55 16.66 11.11 19.44 Frequency Scale 25 12.5 12.5 12.5 Stool Releated Aspects 16.66 0 8.33 16.66 Medication Scale 25 0 0 8.33 Total COREFO Score 18.26 6.73 6.73 12.5 The COREFO questionnaire is a validated questionnaire with 27 questions to assess colorectal functional outcome. Patients are asked to consider the two week period prior before filling out the questionnaire. Category scores range from zero to 100. A total score is calculated from the categories above, also ranging from zero to 100. A higher score represents an increased level of functional disturbance. Impression: Laly Toure is an 44 y.o. male with the following Perianal Crohn's disease with terminal ileal involvement status post ileocolic resection in 2010. Status post right lateral seton placement in 2016. The seton is since been self extracted. He has aright posterior quadrant perianal fistula with a seton which was placed today. The right lateral fistula tract does not have a seton in place as the patient is declining placement today. He reports that this right lateral area has been much more quiet with minimal drainage and inflammation. Accordin gly, and in respect with the patient's wishes we have placed a single seton in the right posterior quadrant fistula tract today. He would like to try a period of observation of the right lateral tract with the expressed understanding that if he continues to have drainage or worsening pain that he should contact our service and we will promptly book him for an evaluation under anesthesia with seton placement. All of his questions were answered to his satisfaction and we ended our visit. Plan: We have discussed these issues and have come up with the following plan: Return to clinic as needed. Contact service if he continues to have new perianal drainage or discomfort. Proceed with infliximab administration as scheduled. Brent De Los Santos PA-C, [facility] 10/13/2019 4:14 PM Division of Colon and Rectal Surgery [facility] Pager [phone] documented in this encounter Plan of Treatment Upcoming Encounters Date Type Department Care Team (Latest Contact Info) Description 04/01/2024 12:35 PM EST Hospital Encounter [place] [address] Apurva Vivas MD [facility] [place] [address] 04/01/2024 12:35 PM EST - 04/01/2024 2:17 PM EST Surgery [place] [phone] Apurva Vivas MD [facility] [place] [address] ANORECTAL EXAM, REQUIRING ANESTHESIA, DIAGNOSTIC (WRVU 1.8) 04/26/2024 3:00 PM EST Office [place] [phone] Apurva Vivas MD [facility] [place] [address] Scheduled Procedures Name Priority Associated Diagnoses Date/Ti me ANORECTAL EXAM, REQUIRING ANESTHESIA, DIAGNOSTIC (WRVU 1.8) perianal crohns disease w/fistula 04/01/2024 12:35 PM EST SURGICAL TREATMENT OF ANAL FISTULA COMPLEX OR MULTIPLE W\WO SETON PLACEMENT (WRVU 6.39) perianal crohns disease w/fistula 04/01/2024 12:35 PM EST Scheduled Referrals Name Type Priority Associated Diagnoses Orde r Schedule Referral to Colorectal Surgery Outpatient Referral Routine Crohn's disease of ileum with other complication Ordered: 10/03/2019 documented as of this encounter Goals Goal Patient Goal Type Associated Problems Recent Progress Patient-Stated? Author DH Home Medication Compliance and Understanding Patient Facing Action Plan On track( 017 9:39 PM EDT) No Perri Sousa, [facility] Note: Patient's specific desired goal: Laly would like to stay adherent on Humira [...] of perianal region with fistula Crohn's disease involving terminal ileum documented in this encounter Care Teams Life Specialist Relationship Specialty Start Date End Date Irwin Gonsalez DO [address] [place] [address] PCP - General 05/01/11 documented as of this encounter
--- OUTSIDE RECORDS SUMMARY | 2024-03-10 01:58 | XMS_ITS | Encounter Summary ---
Author Organization [facility] [place] [address] Care Team Providers Care Manual Writer Name Role Phone Irwin Gonsalez DO Primary Care Provider Reason for Visit * Reason Onset Date Comments Medication Refill 05/17/2019 Encounter Details Date Type Department Care Team (Late st Contact Info) Description 05/17/2019 Refill [place] [address] Shannan Barnard RN Social History Tobacco Use [...] PM EST Hospital Encounter [place] [phone] Apurva Vivas MD [facility] GENERAL SURGERY [place] [id number] 04/01/2024 12:35 PM EST - 04/01/2024 2:17 PM EST Surgery [place] [address] Apurva Vivas MD [facility] [place] [address] ANORECTAL EXAM, REQUIRING ANESTHESIA, DIAGNOSTIC (WRVU 1.8) 04/26/2024 3:00 PM EST Office [place] [phone] Apurva Vivas MD [facility] [place] [address] Scheduled Procedures Name Priority Associated Diagnoses Date/Ti [...] track( 017 9:39 PM EDT) Perri Hernandez, [facility] Note: Patient's specific desired goal: Igor [...] on filedocumented in this encounter Care Teams Manual Writer Relationship Specialty Start Date End Date Irwin Gonsalez DO [address] [place] [address] PCP - General 05/01/11 documented as of this encounter
--- OUTSIDE RECORDS SUMMARY | 2024-03-10 01:58 | XMS_ITS | Encounter Summary ---
[place] [address] Care Team Providers Care Digital Media Producer Name Role Phone Irwin Gonsalez DO Primary Care Provider Reason for Visit * Reason Comments Medication Management Encounter Details Date Type Department Care Team (Late st Contact Info) Description 04/18/2019 Specialty [place] [phone] Manolo Gonzalez RPH Social History Tobacco Use [...] Progress Notes * Manolo Jarvis RPH - 04/18/2019 11:37 AM EST Clinical Management Plan: Refill Specialty [...] beneficiary Provider: plan sponsor pharmacist Visit Type: [facility] Follow-up Method of Contact: by telephone Cognitive Ability: good Cognitive Impairment Status Verified this Year: no Allergies and Drug intolerance: No Known Allergies Medication Reconciliation Discrepancies (compared to [facility] med list) -None New medications: no [...] and that [facility] is providing recommendations (summary located at top of note) for provider review and follow up. Manolo Jarvis RPH 04/18/19 11:38 AM documented in this encounter Plan of Treatment Upcoming Encounters Date Type Department Care Team (Latest Contact Info) Description 04/01/2024 12:35 PM EST Hospital Encounter [place] [address] Apurva Vivas MD [facility] [place] [address] 04/01/2024 12:35 PM EST - 04/01/2024 2:17 PM EST Surgery [place] [phone] Apurva Vivas MD [facility] [place] [place] [address] ANORECTAL EXAM, REQUIRING ANESTHESIA, DIAGNOSTIC (WRVU 1.8) 04/26/2024 3:00 PM EST Office Visit [place] [address] Apurva Vivas MD [facility] [place] [place] [address] Scheduled Procedures Name Priority Associated Diagnoses Date/Ti [...] in this encounter Care Teams Digital Media Producer Relationship Specialty Start Date End Date Irwin Gonsalez DO [address] [place] [address] [address] [place] [address] PCP - General 05/01/11 documented as of this encounter
--- OUTSIDE RECORDS SUMMARY | 2024-03-10 01:58 | XMS_ITS | Encounter Summary ---
[place] [address] Care Team Providers Care Director Aeronautics Commission Name Role Phone Irwin Gonsalez DO Primary Care Provider [phone] Reason for Visit * Reason Comments Specialty Refill Management Encounter Details Date Type Department Care Team (Late st Contact Info) Description 08/07/2020 Specialty [place] [address] Manolo Gonzalez RPH Social History Tobacco Use [...] Progress Notes * Manolo Jarvis RPH - 08/07/2020 10:57 AM EDT Clinical Management Plan: Refill Specialty Pharmacy Consultation; Manolo Jarvis RPH Comprehensive Medication Management (CMM) Igor Woodruff Mr. [...] Known Allergies Medication Reconciliation Discrepancies (compared to [facility] med list) No Specialty Pharmacy Refill Questionnaire Refill Questionnaire 08/07/2020 What is the name of the specialty medication you are refilling? Humira Are you taking any new medications? No Any new medical condition? No Any new allergies? No Any new side effects that are bothersome? No What date will you need this fill by? 08/13/2020 Adherence: Any missed doses? No Patient understands no changes to current drug regimen were made.. Manolo Jarvis RPH 08/07/20 10:58 AM documented in this encounter Plan of Treatment Upcoming Encounters Date Type Department Care Team (Latest Contact Info) Description 04/01/2024 12:35 PM EST Hospital Encounter [place] [address] Apurva Vivas MD [facility] [place] [address] 04/01/2024 12:35 PM EST - 04/01/2024 2:17 PM EST Surgery [place] [address] Apurva Vivas MD [facility] [place] [address] ANORECTAL EXAM, REQUIRING ANESTHESIA, DIAGNOSTIC (WRVU 1.8) 04/26/2024 3:00 PM EST Office Visit [place] [address] Apurva Vivas MD [facility] [place] [address] Scheduled Procedures Name Priority Associated Diagnoses Date/Ti [...] filedocumented in this encounter Care Teams Director Aeronautics Commission Relationship Specialty Start Date End Date Irwin Gonsalez DO [address] [place] [address] PCP - General 05/01/11 documented as of this encounter
--- OUTSIDE RECORDS SUMMARY | 2024-03-10 01:58 | XMS_ITS | Encounter Summary ---
Author Organization [facility] [place] [address] Care Team Providers Care Inspector Printed Circuit Boards Name Role Phone Irwin Gonsalez DO Primary Care Provider Encounter Details Date Type Department Care Team (Late st Contact Info) Description 04/16/2020 Orders [place] [address] Shannan Barnard, RN Crohn's disease of ileum with other complication; Abnormal liver function test Social History Tobacco Use Types Packs/Day Years [...] PM EST Hospital Encounter [place] [address] Apurva Vivas MD [facility] [place] [address] 04/01/2024 12:35 PM EST - 04/01/2024 2:17 PM EST Surgery [place] [address] Apurva Vivas MD [facility] [place] [address] ANORECTAL EXAM, REQUIRING ANESTHESIA, DIAGNOSTIC (WRVU 1.8) 04/26/2024 3:00 PM EST Office [place] [phone] Apurva Vivas MD [facility] [place] [address] Scheduled Procedures Name Priority Associated Diagnoses Date/Ti [...] On track( 017 9:39 PM EDT) Perri Hernnadez, [facility] Note: Patient's specific desired goal: Igor [...] Crohn's disease of ileum with other complication Abnormal liver function test Other abnormal blood chemistry documented in this encounter Care Teams Inspector Printed Circuit Boards Relationship Specialty Start Date End Date Irwin Gonsalez DO [address] [place] [address] [address] [place] [address] PCP - General 05/01/11 documented as of this encounter
--- OUTSIDE RECORDS SUMMARY | 2024-03-10 01:58 | XMS_ITS | Encounter Summary ---
[place] [address] Care Team Providers Care Shoe Patternmaker Name Role Phone Irwin Gonsalez DO Primary Care Provider Reason for Visit * Reason Comments Specialty Refill Management Encounter Details Date Type Department Care Team (Late st Contact Info) Description 09/03/2020 Specialty [place] [address] Vidya Santana, PREDICTIVE MAINTENANCE SPECIALIST Social History Tobacco Use Types Packs/Day Years [...] encounter Progress Notes * Vidya Santana - 09/03/2020 9:26 AM EDT Clinical Management Plan: Refill Specialty [...] to [facility] med list) No Specialty Pharmacy Refill [...] current drug regimen were made.. Vidya Santana 09/03/20 9:27 AM documented in this encounter Plan of Treatment Upcoming Encounters Date Type Department Care Team (Latest Contact Info) Description 04/01/2024 12:35 PM EST Hospital Encounter [place] [address] Apurva Vivas MD [facility] [place] [address] 04/01/2024 12:35 PM EST - 04/01/2024 2:17 PM EST Surgery [place] [address] Apurva Vivas MD [facility] [place] [address] ANORECTAL EXAM, REQUIRING ANESTHESIA, DIAGNOSTIC (WRVU 1.8) 04/26/2024 3:00 PM EST Office Visit [place] [address] Apurva Vivas MD [facility] [place] [address] Scheduled Procedures Name Priority Associated Diagnoses Date/Ti [...] on filedocumented in this encounter Care Teams Shoe Patternmaker Relationship Specialty Start Date End Date Irwin Gonsalez DO [address] [place] [address] PCP - General 05/01/11 documented as of this encounter
--- OUTSIDE RECORDS SUMMARY | 2024-03-10 01:58 | XMS_ITS | Encounter Summary ---
[place] [address] Care Team Providers Care Carpenter Assistant Installer Name Role Phone Irwin Gonsalez DO Primary Care Provider Reason for Visit * Reason Onset Date Comments Prior Authorization 05/17/2019 Humira Encounter Details Date Type Department Care Team (Late st Contact Info) Description 05/17/2019 [place] [phone] Marielle Colbert Prior Authorization (Humira) Social History Tobacco Use Types Packs/Day Years [...] encounter Miscellaneous Notes * Telephone Encounter - Marielle Colbert - 05/17/2019 1:54 PM EST [facility], Medication Prior Authorization Patient: Igor Woodruff Patient : 1975 Patient Address: [address] [facility] [address] (home) Medication: Humira Subscriber Insurance: LEÓN Fax: Physician: Jose Antonio Pandey Sent Via: [facility] Orellana: [id number] Ref/Case/PA#: [id number] Medication Strength Frequency Requested: Humira Pen 40mg/0.4mL PNKT: inject 1 pen (40mg) every 7 days Qty/Day Supply: 07/11 New Start: no- increasing dose and switching to Citrate Free Diagnosis & ICD-10 Code: Crohn's Disease K50.919, K50.018 documented in this encounter Plan of Treatment Upcoming Encounters Date Type Department Care Team (Latest Contact Info) Description 04/01/2024 12:35 PM EST Hospital Encounter [place] [address] Apurva Vivas MD [facility] [place] [address] 04/01/2024 12:35 PM EST - 04/01/2024 2:17 PM EST Surgery [place] [address] Apurva Vivas MD [facility] [place] [address] ANORECTAL EXAM, REQUIRING ANESTHESIA, DIAGNOSTIC (WRVU 1.8) 04/26/2024 3:00 PM EST Office Visit [place] [phone] Apurva Vivas MD [facility] [place] [address] Scheduled Procedures Name Priority Associated Diagnoses Date/Ti [...] on filedocumented in this encounter Care Teams Carpenter Assistant Installer Relationship Specialty Start Date End Date Irwin Gonsalez DO [address] [place] [address] PCP - General 05/01/11 documented as of this encounter
--- OUTSIDE RECORDS SUMMARY | 2024-03-10 01:58 | XMS_ITS | Encounter Summary ---
Author Organization [facility] Address [facility] [place] [address] Care Team Providers Care Brazing Machine Operator Automatic Name Role Phone Irwin Gonsalez DO Primary Care Provider Reason for Referral * Consultation (Urgent) - Closed Specialty Diagnoses / Procedures Referred By Conthemanth powers Referred To Contact General Surgery Diagnoses Crohn's disease of ileum with other complication Ramonita Matamoros MD [facility] [place] [address] Brent De Los Santos PA [facility] [place] [address] Referral ID Status Reason Start Date Expiration Date V isits Requested Visits Authorized [id number] Closed Consult, Test & Treat 10/03/2019 10/02/2020 1 1 Encounter Details Date Type Department Care Team (Latest Contact Info) Description 10/03/2019 2:00 PM EDT TH Visit (TeleHealth) Gastroenterology at [facility] [place] [phone] Ramonita Matamoros MD [facility] [place] [address] Crohn's disease of ileum with other complication; [...] as of this encounter Progress Notes * Ramonita Matamoros MD - 10/03/2019 2:00 PM EDT GASTROENTEROLOGY TELEMEDICINE PROGRAM - ESTABLISHED PATIENT VISIT Chief Complaint: Igor Woodruff is a 44 [address] of [address] Gonsalez here for [...] couple of issues since we last met. We stopped his azathioprine this past March after his MR enterography in February showed no active disease. He continues on Humira weekly and is not missing doses. He is tolerating medication well. His bowel frequency has increased from 1-2 formed stools per day to approximately 3-4 soft formed stools per day. There is not significant urgency. He has lost approximately 15 to 20 pounds over the last few months. However, he attributes this mostly to being very busy at work and not eating as much. He says that this often happens during springtime. There is been no abdominal pain, nausea, vomiting, distention. Over the last approximately 2 months, he has had intermittent drainage and pain around his seton. He reports that its purulent in nature. Last night, he felt a second lump further away from the actual seton was concerned that he could be developing another abscess. Today, after a warm soak in the shower last night, he feels somewhat better, but the lump is not completely gone away. Review of systems: 14-point review of systems [...] (2002); Lap, Surg, Colectomy, W/Remvl Term Ileum (23474) (10/29/2010); Colonoscopy, Biopsy (61700) (05/01/2011); Colonoscopy, Diagnostic (06180) (02/25/2013); Surg Diagnostic Exam, Anorectal (25089) (N/A, 02/26/2016); Placement, Seton (96120) (N/A, 02/26/2016); Cystoscopy, Insert Ureteral Stent (64261) (Left, 05/02/2016); Cysto W Ureteroscopy &/Or Pyeloscopy, Dx (62916) (Left, 05/02/2016); Cystourethroscopy, Ureter Catheter (44171) (Left, 05/02/2016); Fluoroscopy Exam Up To 1 Hr y Or [facility] Care Prov (57775) (Left, 05/02/2016); Cystoscopy, Remv Calculus, Simple (20896) (Left, 05/23/2016); Cysto/Ureteroscopy W/[employer] Indwelling Stent Insertion (45837) (Left, 05/23/2016); [facility] ([facility] (Left, 05/23/2016); Cystourethroscopy, Ureter Catheter (58011) (Left, 05/23/2016); and Colonoscopy, Diagnostic (84156) (N/A, 02/09/2017). Family History: family history includes Crohn Disease in an other family member. Social History: reports that he has never smoked. He has never used smokeless tobacco. He reports current alcohol use of about 1.0 standard drinks of alcohol per week. He reports that he does not usedrugs. No Physical Examination performed during this telemedicine visit Laboratory studies, imaging, and procedures (my review of prior records): I reviewed his labs from April drawn at [facility]. CRP, CBC within normal. Liver tests elevated withALT 101 AST 44. Alkaline phosphatase and bilirubin normal. Albumin normal. Assessment/Plan: Mr. Woodruff is a 44 y.o. patient with Crohn's ileitis and perianal disease. I am concerned about his symptoms of perianal pain and drainage. I think he should get in to see our colorectal colleagues within the next week or 2. If he has recurrence of pain and drainage in the meantime, will have a low threshold to put on antibiotics. I will hold on MRI of the pelvis, as longas he can be seen within a fairly quick timeframe. While he is here, we should check adalimumab concentration. Depending on those results and his perianal exam, would consider changing from Humira to Remicade. I think he also should be restaged with a colonoscopy, but we will hold for now. If we continue with Humira, would want that done within thenext 2 to 3 months. Otherwise, would want it done 4 to 5 months after starting Remicade. Recommendations: 1. Continue Humira weekly 2. Referral to see colorectal, hopefully within the next 7 to 10 days or so 3. Will call for worsening pain or fevers in the interim; low threshold to start ciprofloxacin and metronidazole 4. Hold on MRI of the pelvis, pending colorectal evaluation 5. Check adalimumab concentration with reflex antibody testing when he is here to see colorectal; we will also check routine labs at that time 6. Restaging colonoscopy at some point within the next 2 to 5 months; timing dependent on evaluation of his perianal disease and possible change to Remicade. 7. Follow-up via telehealth, as long as he is doing well, in approximately 10 weeks or sooner as needed. I spent 15 minutes face to face with the patient. 12 minutes were spent on counseling and discussion as of the above during this telemedicine visit. The patient was located in [place] at the time of their visit. Ramonita MATAMOROS MD [facility] [place] [address] documented in this encounter Plan of Treatment Upcoming Encounters Date Type Department Care Team (Latest Contact Info) Description 04/01/2024 12:35 PM EST Hospital Encounter Main Operating Room [facility] [place] [address] Apurva Vivas MD [facility] [place] [address] 04/01/2024 12:35 PM EST - 04/01/2024 2:17 PM EST [place] [address] Apurva Vivas MD [facility] [place] [address] ANORECTAL EXAM, REQUIRING ANESTHESIA, DIAGNOSTIC (WRVU 1.8) 04/26/2024 3:00 PM EST Office [place] [address] Apurva Vivas MD [facility] [place] [address] Scheduled Procedures Name Priority Associated Diagnoses Date/Ti [...] documented as of this encounter Results * Adalimumab Quant with Reflex to Antibody (10/13/2019 5:05 PM EDT) Pathologist [facility] Adalimumab Level (JULY) 16.3 mcg/mL [facility] Comment: For clinical assessment of response to therapy, adalimumab should be measured at trough. When adalimumab trough concentrations are greater than 8.0 mcg/mL, clinically relevant ggwaelbkga-hj-ulnotmrxlp are unlikely and reflex testing will not be performed. REFERENCE VALUE Limit of Quantitation = 0.8 mcg/mL ADDITIONAL INFORMATION This test was developed and its performance characteristics determined by [facility] in a manner consistent with CLIA requirements. This test has not been cleared or approved by the U.S. Food and Drug Administration. Test Performed by: [facility] [place] [address] Transportation Maintenance Specialist: Mauro Page M.D. Ph.D.; CLIA# [id number] Blood specimen (specimen) 10/13/2019 5:05 PM EDT 10/14/2019 10:40 AM EDT Narrative Resulting Agency Comment Spec In Lab L Timothy Matamoros MD LAB SEND OUT ORDERAB LES [facility] [place] [address] * Vitamin D, 25-Hydroxy (10/13/2019 5:05 PM EDT) Pathologist [facility] Vitamin D Total 25 OH 48 21 - 100 ng/mL [facility] Comment: Please note, effective July 20, 2019, additional result field for Vitamin D Interpretation, and updated flagging notification. Vit D Interp Sufficient [facility] Blood specimen (specimen) 10/13/2019 5:05 PM EDT 10/13/2019 5:35 PM EDT Narrative Resulting Agency Comment Spec In Lab L Timothy Matamoros MD CHEMISTRY ORDERABLES Performing Organization Address City/[facility]/ZIP Co de Phone Number [facility] [place] [address] * Vitamin B12 (10/13/2019 5:05 PM EDT) Vitamin B12 474 232 - 1,245 pg/mL [facility] Blood specimen (specimen) 10/13/2019 5:05 PM EDT 10/13/2019 5:35 PM EDT Narrative Resulting Agency Comment Spec In Lab L Timothy Matamoros MD CHEMISTRY ORDERABLES Performing Organization Address [facility] Co de Phone Number [facility] [place] [address] documented in this encounter Visit Diagnoses Diagnosis Crohn's disease of ileum with other complication Abnormal liver function test Other abnormal blood chemistry documented in this encounter Care Teams Brazing Machine Operator Automatic Relationship Specialty Start Date End Date Irwin Gonsalez DO [address] [place] [address] PCP - General 05/01/11 documented as of this encounter
--- OUTSIDE RECORDS SUMMARY | 2024-03-10 01:58 | XMS_ITS | Encounter Summary ---
[place] [address] Care Team Providers Care Traveling Plant Operator Name Role Phone Irwin Gonsalez DO Primary Care Provider Reason for Visit * Reason Onset Date Comments Reminder Appointment 10/03/2019 Encounter Details Date Type Department Care Team (Late st Contact Info) Description 10/03/2019 Telephone [place] [phone] Elva Amaral CMA Reminder Appointment Social History Tobacco Use Types Packs/Day Years [...] encounter Miscellaneous Notes * Telephone Encounter - Elva Amaral CMA - 10/03/2019 11:25 AM EDT Called patient to review medications and allergies for their upcoming gastroenterology Type of Appointment: Telehealth appointment. Reach Patient during MA Check: No, Left Message Notes for the provider: Notes for the nurse: documented in this encounter Plan of Treatment Upcoming Encounters Date Type Department Care Team (Latest Contact Info) Description 04/01/2024 12:35 PM EST Hospital Encounter [place] [address] Apurva Vivas MD [facility] [place] [place] [address] 04/01/2024 12:35 PM EST - 04/01/2024 2:17 PM EST Surgery [place] [address] Apurva Vivas MD [facility] [place] [address] ANORECTAL EXAM, REQUIRING ANESTHESIA, DIAGNOSTIC (WRVU 1.8) 04/26/2024 3:00 PM EST Office [place] [phone] Apurva Vivas MD [facility] [place] [address] Scheduled Procedures Name Priority Associated Diagnoses Date/Ti [...] on filedocumented in this encounter Care Teams Traveling Plant Operator Relationship Specialty Start Date End Date Irwin Gonsalez DO [address] [place] [address] PCP - General 05/01/11 documented as of this encounter
--- OUTSIDE RECORDS SUMMARY | 2024-03-10 01:58 | XMS_ITS | Encounter Summary ---
[place] [address] Care Team Providers Care Stone Rougher Name Role Phone Irwin Gonsalez DO Primary Care Provider Encounter Details Date Type Department Care Team (Late st Contact Info) Description 07/22/2019 Tele[place] [phone] Shannan Barnard RN Social History Tobacco Use [...] encounter Miscellaneous Notes * Telephone Encounter - Shannan Barnard RN - 07/22/2019 11:53 AM EDT Prior Authorization Medication: Humira Dosage: 40 mg Frequency & Route: SC every 14 days Insurance & Phone #: ID #: Trialed (dosage, frequency): Diagnosis/ICD-10: Notes: Submitted via [facility] Approved:06/22/19-07/21/20 documented in this encounter Plan of Treatment Upcoming Encounters Date Type Department Care Team (Latest Contact Info) Description 04/01/2024 12:35 PM EST Hospital Encounter [place] [address] Apurva Vivas MD [facility] [place] [address] 04/01/2024 12:35 PM EST - 04/01/2024 2:17 PM EST Surgery [place] [address] Apurva Vivas MD [facility] [place] [address] ANORECTAL EXAM, REQUIRING ANESTHESIA, DIAGNOSTIC (WRVU 1.8) 04/26/2024 3:00 PM EST Office [place] [phone] Apurva Vivas MD [facility] [place] [address] Scheduled Procedures Name Priority Associated Diagnoses Date/Ti [...] 9:39 PM EDT) Perri Hernandez, [facility] Note: Patient's specific desired goal: Igor would [...] on filedocumented in this encounter Care Teams Stone Rougher Relationship Specialty Start Date End Date Irwin Gonsalez DO [address] [place] [address] PCP - General 05/01/11 documented as of this encounter
--- OUTSIDE RECORDS SUMMARY | 2024-03-10 01:58 | XMS_ITS | Encounter Summary ---
[place] [address] Care Team Providers Care Olericulture Teacher Name Role Phone Irwin Gonsalez DO Primary Care Provider Reason for Visit * Reason Comments Medication Management Encounter Details Date Type Department Care Team (Late st Contact Info) Description 09/05/2019 Specialty [place] [phone] Manolo Gonzalez RPH Social History Tobacco Use [...] Progress Notes * Manolo Jarvis RPH - 09/05/2019 3:44 PM EDT Clinical Management Plan: Refill Specialty [...] beneficiary Provider: plan sponsor pharmacist Visit Type: [facility] Follow-up Method of Contact: by telephone Cognitive Ability: good Cognitive Impairment Status Verified this Year: no Allergies and Drug intolerance: No Known Allergies Medication Reconciliation Discrepancies (compared to [facility] med list) -None New medications: no New [...] were made at the appointment and that [facility] is providing recommendations (summary located at top of note) for provider review and follow up. Manolo Jarvis RPH 09/05/19 3:45 PM documented in this encounter Plan of Treatment Upcoming Encounters Date Type Department Care Team (Latest Contact Info) Description 04/01/2024 12:35 PM EST Hospital Encounter [place] [address] Apurva Vivas MD [facility] [place] [address] 04/01/2024 12:35 PM EST - 04/01/2024 2:17 PM EST Surgery [place] [address] Apurva Vivas MD [facility] [place] [address] ANORECTAL EXAM, REQUIRING ANESTHESIA, DIAGNOSTIC (WRVU 1.8) 04/26/2024 3:00 PM EST Office [place] [phone] Apurva Vivas MD [facility] [place] [address] Scheduled Procedures Name Priority Associated Diagnoses Date/Ti [...] PM EDT) No Perri Sousa, [facility] Note: Patient's [...] on filedocumented in this encounter Care Teams Olericulture Teacher Relationship Specialty Start Date End Date Irwin Gonsalez DO [address] [place] [address] [address] [place] [address] PCP - General 05/01/11 documented as of this encounter
--- OUTSIDE RECORDS SUMMARY | 2024-03-10 01:59 | XMS_ITS | Encounter Summary ---
[place] [address] Care Team Providers Care Hot Walker Name Role Phone Irwin Gonsalez DO Primary Care Provider [phone] Encounter Details Date Type Department Care Team (Late st Contact Info) Description 02/03/2018 Telephone [place] [address] Irwin Gonsalez DO [address] [place] [address] Social History Tobacco Use Types Packs/Day Years [...] Telephone Encounter - Shannan Barnard RN - 02/03/2018 1:59 PM EST error documented in this encounter Plan of Treatment Upcoming Encounters Date Type Department Care Team (Latest Contact Info) Description 04/01/2024 12:35 PM EST Hospital Encounter [place] [address] Apurva Vivas MD [facility] [place] [address] 04/01/2024 12:35 PM EST - 04/01/2024 2:17 PM EST Surgery [place] [phone] Apurva Vivas MD [facility] [place] [address] ANORECTAL EXAM, REQUIRING ANESTHESIA, DIAGNOSTIC (WRVU 1.8) 04/26/2024 3:00 PM EST Office [place] [phone] Apurva Vivas MD [facility] [place] [address] Scheduled Procedures Name Priority Associated Diagnoses Date/Ti me ANORECTAL EXAM, REQUIRING ANESTHESIA, DIAGNOSTIC (WRVU 1.8) perianal crohns disease w/fistula 04/01/2024 12:35 PM EST SURGICAL TREATMENT OF ANAL FISTULA COMPLEX OR MULTIPLE W\WO SETON PLACEMENT (WRVU 6.39) perianal crohns disease w/fistula 04/01/2024 12:35 PM EST documented as of this encounter Goals Goal Patient Goal Type Associated Problems Recent Progress Patient-Stated? Author [facility] Medication Compliance and Understanding Patient Facing Action Plan On track( 017 9:39 PM EDT) No Perri Sousa, [facility] Note: Patient's specific desired goal: Igor would [...] on filedocumented in this encounter Care Teams Hot Walker Relationship Specialty Start Date End Date Irwin Gonsalez DO [address] [facility] [place] [address] PCP - General 05/01/11 documented as of this encounter
--- OUTSIDE RECORDS SUMMARY | 2024-03-10 01:59 | XMS_ITS | Encounter Summary ---
[place] [address] Care Team Providers Care Split Leather Department Supervisor Name Role Phone Irwin Gonsalez DO Primary Care Provider Encounter Details Date Type Department Care Team (Late st Contact Info) Description 11/01/2018 Telephone [place] [phone] Shannan Barnard, RN Social History Tobacco Use Types Packs/Day [...] Miscellaneous Notes * Telephone Encounter - Shannan Barnard, RN - 11/01/2018 1:44 PM EDT Call placed to Igor per request of Dr. Pandey: Please call Igor and let him know labs looked great, but the liver tests were up. ??Not bad and in the same pattern and severity as in the past. ??However, I would like him to have have HCV antibody, ASMA tesing please to be sure were are not missing??something else. Orders faxed to [facility] Message left for pt to call back as there was no answer documented in this encounter Plan of Treatment Upcoming Encounters Date Type Department Care Team (Latest Contact Info) Description 04/01/2024 12:35 PM EST Hospital Encounter [place] [address] [facility] [place] [address] 04/01/2024 12:35 PM EST - 04/01/2024 2:17 PM EST Surgery [place] [phone] [facility] [place] [address] ANORECTAL EXAM, REQUIRING ANESTHESIA, DIAGNOSTIC (WRVU 1.8) 04/26/2024 3:00 PM EST Office [place] [phone] [facility] [place] [address] Scheduled Procedures Name Priority Associated Diagnoses Date/Ti me ANORECTAL EXAM, REQUIRING ANESTHESIA, DIAGNOSTIC (WRVU 1.8) perianal crohns disease w/fistula 04/01/2024 12:35 PM EST SURGICAL TREATMENT OF ANAL FISTULA COMPLEX OR MULTIPLE W\WO SETON PLACEMENT (WRVU 6.39) perianal crohns disease w/fistula 04/01/2024 12:35 PM EST documented as of this encounter Goals Goal Patient Goal Type Associated Problems Recent Progress Patient-Stated? Author [facility] Medication Compliance and Understanding Patient Facing [...] on filedocumented in this encounter Care Teams Split Leather Department Supervisor Relationship Specialty Start Date End Date Irwin Gonsalez DO [address] [place] [address] [address] [place] [address] PCP - General 05/01/11 documented as of this encounter
--- OUTSIDE RECORDS SUMMARY | 2024-03-10 01:59 | XMS_ITS | Encounter Summary ---
Author Organization [facility] [place] [address] Care Team Providers Care Continuing Education Instructor Name Role Phone Irwin Gonsalez DO Primary Care Provider [phone] Reason for Visit * Reason Onset Date Comments Medication Refill 02/03/2018 Encounter Details Date Type Department Care Team (Late st Contact Info) Description 02/03/2018 Ref[place] [address] Shannan Barnard RN Social History [...] PM EST Hospital Encounter [place] [phone] Apurva Vivas MD [facility] [place] [place] [address] 04/01/2024 12:35 PM EST - 04/01/2024 2:17 PM EST Surgery [place] [address] Apurva Vivas MD [facility] [place] [address] ANORECTAL EXAM, REQUIRING ANESTHESIA, DIAGNOSTIC (WRVU 1.8) 04/26/2024 3:00 PM EST Office [place] [phone] Apurva Vivas MD [facility] [place] [address] Scheduled Procedures Name Priority Associated Diagnoses Date/Ti [...] Perri Hernandez, [facility] Note: Patient's specific desired goal: Igor [...] on filedocumented in this encounter Care Teams Continuing Education Instructor Relationship Specialty Start Date End Date Irwin Gonsalez DO [address] [place] [address] PCP - General 05/01/11 documented as of this encounter
--- OUTSIDE RECORDS SUMMARY | 2024-03-10 01:59 | XMS_ITS | Encounter Summary ---
Author Organization [facility] Address [facility] [place] [address] Care Team Providers Care Head Worker Name Role Phone Irwin Gonsalez DO Primary Care Provider Encounter Details Date Type Department Care Team (Late st Contact Info) Description 08/02/2018 Ref[place] [phone] Ramonita Pandey MD [facility] [place] [address] Social History Tobacco Use Types Packs/Day Years [...] PM EST Hospital Encounter [place] [phone] Apurva Vivas MD [facility] [place] [address] 04/01/2024 12:35 PM EST - 04/01/2024 2:17 PM EST Surgery [place] [address] Apurva Vivas MD [facility] [place] [address] ANORECTAL EXAM, REQUIRING ANESTHESIA, DIAGNOSTIC (WRVU 1.8) 04/26/2024 3:00 PM EST Office [place] [phone] Apurva Vivas MD [facility] [place] [address] Scheduled Procedures Name Priority Associated Diagnoses Date/Ti [...] 017 9:39 PM EDT) No Perri Sousa, [facility] Note: Patient's specific desired goal: Igor would [...] on filedocumented in this encounter Care Teams Head Worker Relationship Specialty Start Date End Date Irwin Gonsalez DO [address] [place] [address] [address] [place] [address] PCP - General 05/01/11 documented as of this encounter
--- OUTSIDE RECORDS SUMMARY | 2024-03-10 01:59 | XMS_ITS | Encounter Summary ---
Author Organization [facility] Address [facility] [place] [address] Care Team Providers Care Head Neck Surgeon Name Role Phone Irwin Gonsalez DO Primary Care Provider [phone] Reason for Visit * Reason Comments Excessive Sweating Encounter Details Date Type Department Care Team (Late st Contact Info) Description 12/28/2017 8:00 AM EDT Office Visit Dermatology at [facility] [address] [place] [address] Loly Alvarez MD [facility] DR MARIAM [place] [address] Hyperhidrosis Social History Tobacco Use Types Packs/Day Years [...] as of this encounter Progress Notes * Elma Reno LPN - 12/28/2017 8:00 AM EDT DERMATOLOGY ESTABLISHED PATIENT CLINIC NOTE DATE OF SERVICE: 12/28/2017 Igor Woodruff : 1975 PROVIDER: Loly Alvarez MD PATIENT PREFERENCES: -prefers to be called: Jose Cruz -ok to communicate detailed result information by: Mail?: Y MyDH?: N Voicemail?: Y and what #: In chart -special considerations: -ok to discuss details of diagnosis and treatment with: updated04/01/2017 Chief Complaint Patient presents with ??? Excessive Sweating HPI Igor Woodruff is a 42 y.o. year old male. Established patient to me and he is here today for hyperhidrosis and a Botox treatment, with his last treatment being in March. He reports good results from the previous treatment. 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 azaTHIOprine (IMURAN) 50 mg Tablet TAKE FIVE TABLETS BY MOUTH EVERY DAY 450 tablet 1 ??? Adalimumab 40 mg/0.8 mL Pen Injector Kit Inject 0.8 mLs subcutaneously every 14 days. 6 kit 1 ??? acetaminophen (TYLENOL) [...] facility-administered medications on file prior to visit. No Known Allergies EXAM General: AAOx3 Well-nourished adult in no apparent distress Skin: A focal examination of the following areas was performed:Bilateral axilla DIAGNOSIS/SKIN FINDINGS/ASSESSMENT/PLAN: # Axillary Hyperhidrosis:??sweating is intolerable and interferes w/ quality of life - now much improved w/ botox therapy - agreed to proceed. - We expect this to inhibit or decrease sweating for 6-9 months. - FU as required. May need to get another approval at that time. - Special considerations: pt has had range of responses from 3 mos to 7+. Consider starch iodine iftoday's tx duration less than 5 mos Procedure: - Re-discussed procedure, answered all questions and patient agreed to proceed. - Sterile prep of axillae with alcohol, grid marked in the axillae, with pinpoints 1cm apart. Approximately 50cm square area. - Botox??(5 units/0.1cc) was injected into this grid, approximately 2.5 units at each point on the grid for 50 units??in each axillae. - No complications. Lot: [id number] Exp: 03/2020 FOLLOW UP WHEN: prn FOR WHAT: botox for axillary hyperhidrosis LENGTH OF VISIT: 15 NUMBING?: no PICTURES NEEDED? No Note; please make sure that patient has an up to date PA before scheduling appointment I am documenting this encounter acting as the scribe for and in the presence of Dr.Roberta Antonio Reno LPN and Awa Tomlin I performed the above scribed service and agree with the accuracy of the documentation in this encounter. Loly Alvarez MD Section of Dermatology [facility] Igor J Kacy 12/28/2017 [id number] documented in this encounter Plan of Treatment Upcoming Encounters Date Type Department Care Team (Latest Contact Info) Description 04/01/2024 12:35 PM EST Hospital Encounter [place] [address] Apurva Vivas MD [facility] [place] [address] 04/01/2024 12:35 PM EST - 04/01/2024 2:17 PM EST Surgery [place] [address] Apurva Vivas MD [facility] [place] [address] ANORECTAL EXAM, REQUIRING ANESTHESIA, DIAGNOSTIC (WRVU 1.8) 04/26/2024 3:00 PM EST Office [place] [address] Apurva Vivas MD [facility] [place] [address] Scheduled Procedures Name Priority Associated Diagnoses Date/Ti me ANORECTAL EXAM, REQUIRING ANESTHESIA, DIAGNOSTIC (WRVU 1.8) perianal crohns disease w/fistula 04/01/2024 12:35 PM EST SURGICAL TREATMENT OF ANAL FISTULA COMPLEX OR MULTIPLE W\WO SETON PLACEMENT (WRVU 6.39) perianal crohns disease w/fistula 04/01/2024 12:35 PM EST documented as of this encounter Goals Goal Patient Goal Type Associated Problems Recent Progress Patient-Stated? Author [facility] Medication Compliance and Understanding Patient Facing Action Plan On track( 017 9:39 PM EDT) Perri Hernandez, [facility] Note: Patient's specific desired [...] as of this encounter Visit Diagnoses Diagnosis Hyperhidrosis Primary focal hyperhidrosis documented in this encounter Administered Medications Inactive Administered Medications - up to 3 most recent administrations Medication Order MAR Action Action Date Dose Rate Site Botulinum Toxin Type A SolR 100 Units 100 Units, Intramuscular, ONCE, 1 dose, On Thu12/28/17 at 0845, Routine Given 12/28/2017 8:25 AM EDT 100 Units 20-Other (document in comment section) documented in this encounter Care Teams Head Neck Surgeon Relationship Specialty Start Date End Date Irwin Gonsalez DO [address] [place] [address] PCP - General 05/01/11 documented as of this encounter
--- OUTSIDE RECORDS SUMMARY | 2024-03-10 01:59 | XMS_ITS | Encounter Summary ---
[place] [address] Care Team Providers Care Shoe Lining Fitter Name Role Phone Irwin Gonsalez DO Primary Care Provider Reason for Visit * Reason Comments Medication Management Encounter Details Date Type Department Care Team (Late st Contact Info) Description 02/23/2019 Specialty [place] [phone] Maliha Sutherland RPH Social History Tobacco Use Types Packs/Day [...] as of this encounter Progress Notes * Maliha Sutherland RPH - 02/23/2019 11:18 AM EST Clinical Management Plan: Refill Specialty Pharmacy Consultation; Maliha Sutherland RPH Comprehensive Medication Management (CMM) Igor Sherine [...] beneficiary Provider: plan sponsor pharmacist Visit Type: [facility] [place] Method of Contact: by telephone Cognitive Ability: good Cognitive Impairment Status Verified this Year: no Allergies and Drug intolerance: No Known Allergies Medication Reconciliation Discrepancies (compared to [facility] med list) -none New medications: no [...] were made at the appointment and that [facility] is providing recommendations (summary located at top of note) for provider review and follow up. Maliha Sutherland RPH 02/23/19 11:23 AM documented in this encounter Plan of Treatment Upcoming Encounters Date Type Department Care Team (Latest Contact Info) Description 04/01/2024 12:35 PM EST Hospital En[place] [address] Apurva Vivas MD [facility] [place] [address] 04/01/2024 12:35 PM EST - 04/01/2024 2:17 PM EST [place] [address] Apurva Vivas MD [facility] [place] [address] ANORECTAL EXAM, REQUIRING ANESTHESIA, DIAGNOSTIC (WRVU 1.8) 04/26/2024 3:00 PM EST Office Visit General Surgery at [facility] [place] [address] Apurva Vivas MD [facility] [place] [address] Scheduled Procedures Name Priority Associated Diagnoses Date/Ti me ANORECTAL EXAM, REQUIRING ANESTHESIA, DIAGNOSTIC (WRVU 1.8) perianal crohns disease w/fistula 04/01/2024 12:35 PM EST SURGICAL TREATMENT OF ANAL FISTULA COMPLEX OR MULTIPLE W\WO SETON PLACEMENT (WRVU 6.39) perianal crohns disease w/fistula 04/01/2024 12:35 PM EST documented as of this encounter Goals Goal Patient Goal Type Associated Problems Recent Progress Patient-Stated? Author [facility] [place] Medication Compliance and Understanding Patient Facing Action Plan On track( 017 9:39 PM EDT) No Perri Sousa, [facility] Note: Patient's specific desired [...] filedocumented in this encounter Care Teams Shoe Lining Fitter Relationship Specialty Start Date End Date Irwin Gonsalez DO [address] [place] [address] [address] [place] [address] PCP - General 05/01/11 documented as of this encounter
--- OUTSIDE RECORDS SUMMARY | 2024-03-10 01:59 | XMS_ITS | Encounter Summary ---
[place] [address] Care Team Providers Care Senior Vice President And Chief Information Officer Name Role Phone Irwin Gonsalez DO Primary Care Provider [phone] Reason for Visit * Reason Comments Medication Management Patient Education Encounter Details Date Type Department Care Team (Late st Contact Info) Description 11/29/2018 Specialty [place] [phone] Maliha Sutherland RPH Social History Tobacco Use [...] Progress Notes * Maliha Sutherland RPH - 11/29/2018 10:34 AM EDT Specialty Pharmacy Consultation; Maliha Sutherland RPH Comprehensive Medication Management (CMM) Igor Basurto Kacy Diagnosis: Crohn's Therapy Start Date: 04/25/2016 Contact in person or via telephone: telephone Mr. Igor Woodruff is a 43 y.o. (1975) male who was contacted in [...] Summary and Recommendations: Igor Woodruff is a pleasant 43 y.o. male who was contacted for a [...] review for possible contraindications andinteractions. The patient is aware of the importance of follow-up and infection prevention precautions such as vaccinations and hand-washing. The patient was informed of the variety of services that the Specialty Pharmacy will provide to them as one of our patients. Clinic follow-up needed: no Allergies and Drug intolerance: No Known Allergies Special Dietary or Hydration Requirements: no There is no height or weight on file to calculate BMI. Medication Reconciliation Discrepancies (compared to [facility] med list) no Medication Adherence Patient [...] calendar, directed education Support network for adherence: family member, healthcare provider Confirmed plan for next specialty medication refill: delivery by pharmacy Refills needed for supportive medications: not needed Medication List: Current Outpatient Medications Medication Sig Dispense Refill ??? Adalimumab 40 mg/0.8 mL Pen Injector Kit Inject 0.8 mLs subcutaneously every 14 days. 2 Pen 5 ??? azaTHIOprine (IMURAN) 50 mg Tablet TAKE 5 TABLETS BY MOUTH ONCE DAILY 150 tablet 5 ??? acetaminophen (TYLENOL) 325 mg Tablet [...] beneficiary Provider: plan sponsor pharmacist [place] [facility] [place] Method of Contact: by telephone Cognitive [...] possible drug and prescription drug interactions discussed, lab monitoring and follow-up discussed, therapeutic rationale discussed, cost of medications and cost implications discussed, adherence and missed doses discussed, pharmacy contact information discussed, health goals discussed, monitoring medication discussed, preventative care discussed, reminder to refill or garbage pick up worker medication discussed, self-monitoring discussed, timing of medications discussed, vaccination discussed, lifestyle modification education, referral needs discussed Drug Medication Management Summary Topics discussed: reviewed medication changes since last visit, medication safety precautions education provided, drug interaction education provided to patient, doses and administration discussed, safe handling, storage, and disposal discussed, possible adverse effects and management discussed, possible drug and prescription drug interactions discussed, lab monitoring and follow-up discussed, therapeutic rationale discussed, cost of medications and cost implications discussed, adherence and missed doses discussed, pharmacy contact information discussed, health goals discussed, monitoring medication discussed, preventative care discussed, reminder to refill or garbage pick up worker medication discussed, self-monitoring discussed, timing of medications [...] frequency and method Handling, storage, and disposal of the medication Relevant lab data Patient verbalizes understanding and is able to read-back instructions on self-administration/injection, proper storage, drug stability, importance of adherence and management strategies, side effectavoidance and mitigation strategies, and interruptions in therapy: Yes Economic Assessment: Patient is agreeable to medication copay: yes Copay Amount: $5 Day Supply: 28 Date Needed: 12/06/18 Copay assistance required: no Physical Assessment: Functional limitations identified: no Is patient a fall risk: no Cognitive limitations identified such as orientation, memory, reasoning or judgement: no Other: no Social Assessment: Does the patient have a primary physician primary care sports medicine? no Patient has emergency contact on file: Yes Does patient need referral to dialysis social worker: No Does patient need referral to advocacy group: No Physical and Home Health Assessment: Is the patient able to store their medication as directed? Yes Is the patient in a safe home environment? Yes Do you have a support network? Yes Reviewed potential home safety hazards: No Therapy Assessment: Appropriate Therapy: Yes Current Medication Dosing/Route/Frequency: Humira 40mg/0.8ml pen every 14 days Effective: yes - patient states he is feeling damn good Current GI-related Symptoms/Pain: no Recent GI Flaring: no Recent Systemic Corticosteroid Use: no Relapsing/Remitting Factors: no Patient experienced change in condition that affects treatment: no Patient experienced side effects from your medication no Recent Infections: no Utilizing appropriate injection technique: yes - he is storing appropriately, taking out of the fridge at least 30min before his injection and rotating sites Rotation of Injection Sites: Yes Room Temperature [...] track to achieve goals of therapy? yes Additional care/services needed: no Educational information or adherence tools provided: Yes Additional equipment/supplies required: no Care Plan Reviewed and Approved by both Pharmacist and Patient: Yes Did Care Plan Change? No Informed patient of specialty pharmacy services: Yes -Patient received welcome packet: Yes Date Received: 05/23/16 Delivery Method: mail -Patient returned signed Rights & Responsibilities: Yes Date Received: 11/20/17 Delivery Method: mail -Patient is aware a [...] Yes Patient Satisfaction with Therapy: yes - feels it is working well for him Patient understands no changes to current drug regimen were made at the appointment and that [facility] (summary located at top of note) for provider review and follow up. Maliha Sutherland RPH 11/29/18 10:45 AM documented in this encounter Plan of Treatment Upcoming Encounters Date Type Department Care Team (Latest Contact Info) Description 04/01/2024 12:35 PM EST Hospital Encounter [place] [address] Apurva Vivas MD [facility] [place] [address] 04/01/2024 12:35 PM EST - 04/01/2024 2:17 PM EST Surgery [place] [address] Apurva Vivas MD [facility] [place] [address] ANORECTAL EXAM, REQUIRING ANESTHESIA, DIAGNOSTIC (WRVU 1.8) 04/26/2024 3:00 PM EST Office [place] [phone] Apurva Vivas MD [facility] [place] [address] Scheduled Procedures Name Priority Associated Diagnoses Date/Ti [...] track( 017 9:39 PM EDT) Perri Hernandez, [facility] Note: Patient's [...] this encounter Care Teams Senior Vice President And Chief Information Officer Relationship Specialty Start Date End Date Irwin Gonsalez DO [address] [place] [address] PCP - General 05/01/11 documented as of this encounter
--- OUTSIDE RECORDS SUMMARY | 2024-03-10 01:59 | XMS_ITS | Encounter Summary ---
[place] [address] Care Team Providers Care Ware Cleaner Name Role Phone Iriwn Gonsalez DO Primary Care Provider [phone] Encounter Details Date Type Department Care Team (Late st Contact Info) Description 11/01/2018 [place] [phone] Caroline Townsend, [facility] Social History Tobacco Use Types [...] encounter Miscellaneous Notes * Telephone Encounter - Caroline Townsend - 11/01/2018 4:07 PM EDT Clinical Management Plan: Refill Specialty Pharmacy Consultation; Caroline Townsend Comprehensive Medication Management (CMM) Igor Sherine Monzonjoshua Mr. Igor Woodruff is a 43 y.o. [...] Known Allergies Medication Reconciliation Discrepancies (compared to [facility] med list) No New medications: No New medical conditions: No New allergies: No Adherence: Any missed doses? No Are you experiencing any side effects from your medications? No Patient understands no changes to current drug regimen were made.. Caroline Townsend 11/01/18 4:07 PM documented in this encounter Plan of Treatment Upcoming Encounters Date Type Department Care Team (Latest Contact Info) Description 04/01/2024 12:35 PM EST Hospital Encounter [place] [address] Apurva Vivas MD [facility] [place] [address] 04/01/2024 12:35 PM EST - 04/01/2024 2:17 PM EST Surgery [place] [address] Apurva Vivas MD [facility] [place] [address] ANORECTAL EXAM, REQUIRING ANESTHESIA, DIAGNOSTIC (WRVU 1.8) 04/26/2024 3:00 PM EST Office [place] [address] Apurva Vivas MD [facility] [place] [address] Scheduled Procedures Name Priority Associated Diagnoses Date/Ti [...] 017 9:39 PM EDT) No Perri Sousa, [facility] Note: Patient's specific [...] on filedocumented in this encounter Care Teams Ware Cleaner Relationship Specialty Start Date End Date Irwin Gonsalez DO [address] [place] [address] [address] [place] [address] PCP - General 05/01/11 documented as of this encounter
--- OUTSIDE RECORDS SUMMARY | 2024-03-10 01:59 | XMS_ITS | Encounter Summary ---
Author Organization [facility] [address] Care Team Providers Care Laboratory Sample Carrier Name Role Phone Irwin Gonsalez DO Primary Care Provider Reason for Visit * Reason Comments Medication Refill Encounter Details Date Type Department Care Team (Late st Contact Info) Description 04/22/2018 Refill [place] [phone] Tan Garcia MD [facility] [place] [address] Social History Tobacco Use Types Packs/Day Years [...] PM EST Hospital Encounter [place] [address] Apurva Vivas MD [facility] [place] [address] 04/01/2024 12:35 PM EST - 04/01/2024 2:17 PM EST Surgery [place] [phone] Apurva Vivas MD [facility] [place] [address] ANORECTAL EXAM, REQUIRING ANESTHESIA, DIAGNOSTIC (WRVU 1.8) 04/26/2024 3:00 PM EST Office [place] [phone] Apurva Vivas MD [facility] [place] [address] Scheduled Procedures Name Priority Associated Diagnoses Date/Ti me ANORECTAL EXAM, REQUIRING ANESTHESIA, DIAGNOSTIC (WRVU 1.8) perianal crohns disease w/fistula 04/01/2024 12:35 PM EST SURGICAL TREATMENT OF ANAL FISTULA COMPLEX OR MULTIPLE W\WO SETON PLACEMENT (WRVU 6.39) perianal crohns disease w/fistula 04/01/2024 12:35 PM EST documented as of this encounter Goals Goal Patient Goal Type Associated Problems Recent Progress Patient-Stated? Author [facility] Medication Compliance and Understanding Patient Facing [...] on filedocumented in this encounter Care Teams Laboratory Sample Carrier Relationship Specialty Start Date End Date Irwin Gonsalez DO [address] [place] [address] [address] [place] [address] PCP - General 05/01/11 documented as of this encounter
--- OUTSIDE RECORDS SUMMARY | 2024-03-10 01:59 | XMS_ITS | Encounter Summary ---
Author Organization [facility] Address [facility] [place] [address] Care Team Providers Care Supply Chain Manager Name Role Phone Irwin Gonsalez DO Primary Care Provider Encounter Details Date Type Department Care Team (Late st Contact Info) Description 12/27/2018 Refill [place] [phone] Ramonita Pandey MD [facility] [place] [place] [address] Social History Tobacco Use Types Packs/Day Years [...] PM EST Hospital Encounter [place] [phone] Apurva iVvas MD [facility] [place] [address] 04/01/2024 12:35 PM EST - 04/01/2024 2:17 PM EST Surgery [place] [address] Apurva Vivas MD [facility] [place] [address] ANORECTAL EXAM, REQUIRING ANESTHESIA, DIAGNOSTIC (WRVU 1.8) 04/26/2024 3:00 PM EST Office [place] [phone] Apurva Vivas MD [facility] [place] [address] Scheduled Procedures Name Priority Associated Diagnoses Date/Ti [...] 017 9:39 PM EDT) No Perri Sousa, [facility] Note: Patient's specific desired goal: Igor [...] on filedocumented in this encounter Care Teams Supply Chain Manager Relationship Specialty Start Date End Date Irwin Gonsalez DO [address] [place] [address] [address] [place] [address] PCP - General 05/01/11 documented as of this encounter
--- OUTSIDE RECORDS SUMMARY | 2024-03-10 01:59 | XMS_ITS | Encounter Summary ---
[place] [address] Care Team Providers Care Splicer Helper Name Role Phone Irwin Gonsalez DO Primary Care Provider [phone] Reason for Visit * Reason Onset Date Comments Prior Authorization 08/04/2018 Humira Encounter Details Date Type Department Care Team (Late st Contact Info) Description 08/04/2018 [place] [phone] Brenden Dugan CPHT Prior Authorization (Humira) Social History Tobacco Use [...] encounter Miscellaneous Notes * Telephone Encounter - Brenden Dugan CPHT - 08/04/2018 2:44 PM EDT [facility], Medication Prior Authorization Patient: Igor Woodruff Patient : 1975 Patient Address: [address] [facility] [address] (home) Medication: Humira Subscriber Insurance: LEÓN ([facility]) Fax: Physician: Jose Antonio Pandey Sent Via: Verbally Orellana: N/A Ref/Case/PA#: [id number] Medication Strength Frequency Requested: 40mg/0.8mL auto-injector - 40mg every 14 days Qty/Day Supply: 2 Pens/28 Day Supply New Start: No Diagnosis & ICD-10 Code: Crohn's disease of ileum with rectal bleeding K50.011 [facility], Prior Authorization Approval Medication Name: Humira FILLABLE AT [facility]? yes APPROVAL DATES: 07/05/2018 - 08/04/2019 SPECIFIC INS REQUIREMENT: N/A CASE/REFERENCE # [id number] APPROVAL NOTIFICATION RECEIVED VIA: Verbally COPAY: $50 (reduced to $5 with copay card) COPAY ASSISTANCE NEEDED?: No NOTES: Reauthorization PA approved documented in this encounter Plan of Treatment Upcoming Encounters Date Type Department Care Team (Latest Contact Info) Description 04/01/2024 12:35 PM EST Hospital Encounter [place] [address] Apurva Vivas MD [facility] [place] [address] 04/01/2024 12:35 PM EST - 04/01/2024 2:17 PM EST Surgery [place] [address] Apurva Vivas MD [facility] [place] [address] ANORECTAL EXAM, REQUIRING ANESTHESIA, DIAGNOSTIC (WRVU 1.8) 04/26/2024 3:00 PM EST Office Visit General Surgery at [facility] [place] [address] Apurva Vivas MD [facility] [place] [address] Scheduled Procedures Name Priority Associated Diagnoses Date/Ti me ANORECTAL EXAM, REQUIRING ANESTHESIA, DIAGNOSTIC (WRVU 1.8) perianal crohns disease w/fistula 04/01/2024 12:35 PM EST SURGICAL TREATMENT OF ANAL FISTULA COMPLEX OR MULTIPLE W\WO SETON PLACEMENT (WRVU 6.39) perianal crohns disease w/fistula 04/01/2024 12:35 PM EST documented as of this encounter Goals Goal Patient Goal Type Associated Problems Recent Progress Patient-Stated? Author [facility] Medication Compliance and Understanding Patient Facing [...] on filedocumented in this encounter Care Teams Splicer Helper Relationship Specialty Start Date End Date Irwin Gonsalez DO [address] [place] [address] PCP - General 05/01/11 documented as of this encounter
--- OUTSIDE RECORDS SUMMARY | 2024-03-10 01:59 | XMS_ITS | Encounter Summary ---
[place] [address] Care Team Providers Care Prize Fighter Name Role Phone Irwin Gonsalez DO Primary Care Provider Reason for Visit * Reason Comments Medication Management Encounter Details Date Type Department Care Team (Late st Contact Info) Description 05/10/2018 Specialty Pharm[place] [phone] Karishma Muir [facility] Social History Tobacco Use Types [...] as of this encounter Progress Notes * Karishma Noel [facility] - 05/10/2018 2:21 PM EST Clinical Management Plan: Refill of Humira Specialty Pharmacy Consultation; Karishma Noel [facility] Comprehensive Medication Management (CMM) Igor Sherine Mayitorobertjoshua Mr. Igor Woodruff is a 43 y.o. (1975) male who was contacted in regard to a specialty medication refill reminder. Spoke with patient regarding Humira. A review of the medication therapy wasperformed. The medication was Refilled as scheduled, and all medication related questions and concerns were addressed. His next injection is due 05/17. The specialty pharmacy staff will follow up with the patient 5-7 days prior to next refill. Was a change made to the Care Plan: no Assessment and Recommendations: Title Type of Medication Management: chronic disease management, targeted medication review Referred By: provider Recipient: beneficiary Provider: plan sponsor pharmacist Visit Type: [facility] Follow-up Method of Contact: by telephone Cognitive Ability: good Cognitive Impairment Status Verified this Year: no Allergies and Drug intolerance: No Known Allergies Medication Reconciliation Discrepancies (compared to [facility] med list) -none New medications: no [...] non-adherence: no problems identified Adherence tools used: calendar Support network for adherence: family member Confirmed plan for next specialty medication refill: delivery by pharmacy Refills needed for supportive medications: not needed Are you experiencing any side effects from your medications? no Pt understands no changes to current drug regimen were made at the appointment and that [facility] is providing recommendations (summary located at top of note) for provider review and follow up. Karishma Noel RPH 05/10/18 2:21 PM documented in this encounter Plan of Treatment Upcoming Encounters Date Type Department Care Team (Latest Contact Info) Description 04/01/2024 12:35 PM EST Hospital Encounter [place] [address] Apurva Vivas MD [facility] [place] [address] 04/01/2024 12:35 PM EST - 04/01/2024 2:17 PM EST Surgery [place] [address] Apurva Vivas MD [facility] [place] [place] [address] ANORECTAL EXAM, REQUIRING ANESTHESIA, DIAGNOSTIC (WRVU 1.8) 04/26/2024 3:00 PM EST Office Visit General Surgery at [facility] [place] [address] Apurva Vivas MD [facility] [place] [address] Scheduled Procedures Name Priority Associated Diagnoses Date/Ti [...] on filedocumented in this encounter Care Teams Prize Fighter Relationship Specialty Start Date End Date Irwin Gonsalez DO [address] [place] [address] PCP - General 05/01/11 documented as of this encounter
--- OUTSIDE RECORDS SUMMARY | 2024-03-10 01:59 | XMS_ITS | Encounter Summary ---
Author Organization [facility] Address [facility] [place] [address] Care Team Providers Care Systems Spec Name Role Phone Irwin Gonsalez DO Primary Care Provider [phone] Encounter Details Date Type Department Care Team (Late st Contact Info) Description 04/13/2018 [place] [phone] Ramonita Pandey MD [facility] [place] [address] Social History Tobacco Use Types Packs/Day Years [...] PM EST Hospital Encounter [place] [address] Apurva Vivas MD [facility] [place] [address] 04/01/2024 12:35 PM EST - 04/01/2024 2:17 PM EST Surgery [place] [address] Apurva Vivas MD [facility] [place] [address] ANORECTAL EXAM, REQUIRING ANESTHESIA, DIAGNOSTIC (WRVU 1.8) 04/26/2024 3:00 PM EST Office [place] [phone] Apurva Vivas MD [facility] [place] [address] Scheduled Procedures Name Priority Associated Diagnoses Date/Ti [...] 9:39 PM EDT) No Perri Sousa, [facility] Note: Patient's specific desired [...] on filedocumented in this encounter Care Teams Systems Spec Relationship Specialty Start Date End Date Irwin Gonsalez DO [address] [place] [address] [address] [place] [address] PCP - General 05/01/11 documented as of this encounter
--- OUTSIDE RECORDS SUMMARY | 2024-03-10 01:59 | XMS_ITS | Encounter Summary ---
Author Organization [facility] Address [facility] [place] [address] Care Team Providers Care Sewing Machine Tester Name Role Phone Irwin Gonsalez DO Primary Care Provider Encounter Details Date Type Department Care Team (Late st Contact Info) Description 11/30/2017 Telephone Dermatology at [facility] [address] [place] [address] Loly Alvarez MD [facility] [address] [address] Social History Tobacco Use Types Packs/Day Years [...] encounter Miscellaneous Notes * Telephone Encounter - Zainab Sommer - 11/30/2017 4:06 PM EDT Received message from Igor Woodruff requesting his appointment on 12/02 be changed. Called Igor Woodruff back and left voicemail for him to return our call. documented in this encounter Plan of Treatment Upcoming Encounters Date Type Department Care Team (Latest Contact Info) Description 04/01/2024 12:35 PM EST Hospital Encounter [place] [address] Apurva Vivas MD [facility] [place] [address] 04/01/2024 12:35 PM EST - 04/01/2024 2:17 PM EST Surgery [place] [address] Apurva Vivas MD [facility] [place] [address] ANORECTAL EXAM, REQUIRING ANESTHESIA, DIAGNOSTIC (WRVU 1.8) 04/26/2024 3:00 PM EST Office Visit [place] [phone] Apurva Vivas MD [facility] [place] [address] Scheduled Procedures Name Priority Associated Diagnoses Date/Ti [...] on filedocumented in this encounter Care Teams Sewing Machine Tester Relationship Specialty Start Date End Date Irwin Gonsalez DO [address] [place] [address] PCP - General 05/01/11 documented as of this encounter
--- OUTSIDE RECORDS SUMMARY | 2024-03-10 01:59 | XMS_ITS | Encounter Summary ---
[place] [address] Care Team Providers Care Chief Engineering Division Name Role Phone Irwin Gonsalez DO Primary Care Provider Reason for Visit * Reason Comments Medication Refill Encounter Details Date Type Department Care Team (Late st Contact Info) Description 02/16/2018 Specialty [place] [phone] Swetha York RPH Social History Tobacco Use Types Packs/Day [...] as of this encounter Progress Notes * Swetha Strickland RPH - 02/16/2018 2:20 PM EST Clinical Management Plan: Refill Specialty Pharmacy Consultation; Swetha Strickland RPH Comprehensive Medication Management (CMM) Igor Basurto Mayitorobertjoshua Mr. Igor Woodruff is a 42 y.o. (1975) male who called in a refill for their specialty prescription, Humira , before a refill reminder was needed from the [facility]. The medication was refilled on 02/16/2018 for a 28 day supply for $5 copay. Adherence: Gaps in fill history: none Was a change made to the Care Plan: no If yes, should the medication be held: No The specialty pharmacy staff will follow up with the patient 7 days prior to next refill for reminder if needed. Swetha Strickland RPH 02/16/18 2:22 PM documented in this encounter Plan of Treatment Upcoming Encounters Date Type Department Care Team (Latest Contact Info) Description 04/01/2024 12:35 PM EST Hospital Encounter [place] [phone] Apurva Vivas MD [facility] GENERAL SURGERY [address] 04/01/2024 12:35 PM EST - 04/01/2024 2:17 PM EST Surgery [place] [address] Apurva Vivas MD [facility] [address] [place] [address] ANORECTAL EXAM, REQUIRING ANESTHESIA, DIAGNOSTIC (WRVU 1.8) 04/26/2024 3:00 PM EST Office [place] [address]1000 Apurva Vivas MD [facility] [address] [place] [address] Scheduled Procedures Name Priority Associated Diagnoses Date/Ti [...] on filedocumented in this encounter Care Teams Chief Engineering Division Relationship Specialty Start Date End Date Irwin Gonsalez DO [address] [place] [address] PCP - General 05/01/11 documented as of this encounter
--- OUTSIDE RECORDS SUMMARY | 2024-03-10 01:59 | XMS_ITS | Encounter Summary ---
[place] [address] Care Team Providers Care Water Resource Manager Name Role Phone Irwin Gonsalez DO Primary Care Provider Reason for Visit * Reason Comments Medication Management Encounter Details Date Type Department Care Team (Late st Contact Info) Description 10/05/2018 Specialty [place] [phone] Edvin Hernandez RPH Social History Tobacco Use Types Packs/Day [...] as of this encounter Progress Notes * Edvin Hernandez RPH - 10/05/2018 8:45 AM EDT Clinical Management Plan: Refill Specialty Pharmacy Consultation; Edvin Hernandez RPH Comprehensive Medication Management (CMM) Igor Woodruff Mr. Igor Woodruff is a 43 y.o. [...] Care Plan: no Assessment and Recommendations: Title Cognitive Ability: good Cognitive Impairment Status Verified this Year: no Allergies and Drug intolerance: No Known Allergies Medication Reconciliation Discrepancies (compared to [facility] med list) - none New medications: no New medical conditions: no New allergies: no Adherence: Medication Adherence Patient reported X missed doses in the last month: 0 Any gaps in refill history greater than 2 weeks in the last 3 months: no Demonstrates understanding of importance of adherence: yes Informant: patient Provider-estimated medication adherence level: 90-100% Reasons for non-adherence: no problems identified Adherence tools used: calendar Support network for adherence: family member Confirmed plan for next specialty medication refill: delivery by pharmacy Refills needed for supportive medications: not needed Are you experiencing any side effects from your medications? no Pt understands no changes to current drug regimen were made at the appointment and that [facility] is providing recommendations (summary located at top of note) for provider review and follow up. Edvin Hernandez RPH 10/05/18 8:45 AM documented in this encounter Plan of Treatment Upcoming Encounters Date Type Department Care Team (Latest Contact Info) Description 04/01/2024 12:35 PM EST Hospital Encounter [place] [address] Apurva Vivas MD [facility] [place] [address] 04/01/2024 12:35 PM EST - 04/01/2024 2:17 PM EST Surgery [place] [address] Apurva Vivas MD [facility] [place] [address] ANORECTAL EXAM, REQUIRING ANESTHESIA, DIAGNOSTIC (WRVU 1.8) 04/26/2024 3:00 PM EST Office [place] [address] Apurva Vivas MD [facility] [place] [address] Scheduled Procedures Name Priority Associated Diagnoses Date/Ti me ANORECTAL EXAM, REQUIRING ANESTHESIA, DIAGNOSTIC (WRVU 1.8) perianal crohns disease w/fistula 04/01/2024 12:35 PM EST SURGICAL TREATMENT OF ANAL FISTULA COMPLEX OR MULTIPLE W\WO SETON PLACEMENT (WRVU 6.39) perianal crohns disease w/fistula 04/01/2024 12:35 PM EST documented as of this encounter Goals Goal Patient Goal Type Associated Problems Recent Progress Patient-Stated? Author [facility] Medication Compliance and Understanding Patient Facing [...] on filedocumented in this encounter Care Teams Water Resource Manager Relationship Specialty Start Date End Date Irwin Gonsalez DO [address] [place] [address] [address] [facility] [address] [place] [address] PCP - General 05/01/11 documented as of this encounter
--- OUTSIDE RECORDS SUMMARY | 2024-03-10 01:59 | XMS_ITS | Encounter Summary ---
[place] [address] Care Team Providers Care Allergist/Pediatric Pulmonologist Name Role Phone Irwin Gonsalez DO Primary Care Provider Reason for Visit * Reason Comments Medication Management Encounter Details Date Type Department Care Team (Late st Contact Info) Description 10/27/2017 Specialty [place] [phone] Edvin Hernandez RPH Social History Tobacco Use [...] Progress Notes * Edvin Hernandez RPH - 10/27/2017 2:30 PM EDT Clinical Management Plan: Refill Specialty Pharmacy Consultation; Edvin Hernandez RPH Comprehensive Medication Management (CMM) Igor Woodruff Mr. Igor Woodruff is a 42 y.o. (1975) male who was contacted in regard to a specialty medication refill reminder. Spoke with patient regarding ADALIMUMAB. A review of the medication therapywas performed. The medication was Refilled as scheduled, and all medication related questions and concerns were addressed. The specialty pharmacy staff will follow up with the patient 5-7 days prior to next refill. Assessment and Recommendations: Title Type of Medication Management: chronic disease management, targeted medication review Referred By: provider Recipient: beneficiary Provider: plan sponsor pharmacist Method of Contact: by telephone Cognitive Ability: good Allergies and Drug intolerance: No Known Allergies Medication Reconciliation Discrepancies (compared to [facility] med list) - none New medications: no [...] were made at the appointment and that [facility] is providing recommendations (summary located at top of note) for provider review and follow up. Edvin Hernandez RPH 10/27/17 2:30 PM documented in this encounter Plan of Treatment Upcoming Encounters Date Type Department Care Team (Latest Contact Info) Description 04/01/2024 12:[address] [facility] Hospital Encounter [place] [address] Apurva Vivas MD [facility] [place] [address] 04/01/2024 12:35 PM EST - 04/01/2024 2:17 PM EST Surgery [place] [address] Apurva Vivas MD [facility] [place] [address] ANORECTAL EXAM, REQUIRING ANESTHESIA, DIAGNOSTIC (WRVU 1.8) 04/26/2024 3:00 PM EST Office [place] [address] Apurva Vivas MD [facility] [place] [address] Scheduled Procedures Name Priority Associated Diagnoses Date/Ti [...] on filedocumented in this encounter Care Teams Allergist/Pediatric Pulmonologist Relationship Specialty Start Date End Date Irwin Gonsalez DO [address] [place] [address] [address] [facility] [address] [place] [address] PCP - General 05/01/11 documented as of this encounter
--- OUTSIDE RECORDS SUMMARY | 2024-03-10 01:59 | XMS_ITS | Encounter Summary ---
[place] [address] Care Team Providers Care Tinter Photograph Name Role Phone Irwin Gonsalez DO Primary Care Provider [phone] Encounter Details Date Type Department Care Team (Late st Contact Info) Description 03/24/2019 Notes [place] [address] Kacey Borrego, RN Social History Tobacco Use Types Packs/Day [...] as of this encounter Progress Notes * Kacey Borrego, RN - 03/24/2019 7:33 AM EST Contacted by [facility] regarding Are you experiencing any side effects from your medications? Yes-Unsure if it's due to the Humira but patient is experiencing a shooting pain in his belly a few times a day. Will contact provider regarding this issue Discussed with Dr Pandey who replies: Highly doubt it is the Humira. Could use one of his thighs for injection next time around and see if it goes away. [facility] will advise patient of this. documented in this encounter Plan of Treatment Upcoming Encounters Date Type Department Care Team (Latest Contact Info) Description 04/01/2024 12:35 PM EST Hospital Encounter [place] [address] Apurva Vivas MD [facility] [place] [address] 04/01/2024 12:35 PM EST - 04/01/2024 2:17 PM EST [place] [phone] Apurva Vivas MD [facility] [place] [address] ANORECTAL EXAM, REQUIRING ANESTHESIA, DIAGNOSTIC (WRVU 1.8) 04/26/2024 3:00 PM EST Office [place] [phone] Apurva Vivas MD [facility] [place] [address] Scheduled Procedures Name Priority Associated Diagnoses Date/Ti me ANORECTAL EXAM, REQUIRING ANESTHESIA, DIAGNOSTIC (WRVU 1.8) perianal crohns disease w/fistula 04/01/2024 12:35 PM EST SURGICAL TREATMENT OF ANAL FISTULA COMPLEX OR MULTIPLE W\WO SETON PLACEMENT (WRVU 6.39) perianal crohns disease w/fistula 04/01/2024 12:35 PM EST documented as of this encounter Goals Goal Patient Goal Type Associated Problems Recent Progress Patient-Stated? Author DH Ravalli Medication Compliance and Understanding Patient Facing Action [...] on filedocumented in this encounter Care Teams Tinter Photograph Relationship Specialty Start Date End Date Irwin Gonsalez DO [address] [place] [address] PCP - General 05/01/11 documented as of this encounter
--- OUTSIDE RECORDS SUMMARY | 2024-03-10 01:59 | XMS_ITS | Encounter Summary ---
Author Organization [facility] Address [facility] [place] [address] Care Team Providers Care Professor Of Floriculture Name Role Phone Irwin Gonsalez DO Primary Care Provider [phone] Reason for Visit * Reason Comments Skin Check * Consultation (Routine) - Closed Specialty Diagnoses / Procedures Referred By Conthemanth t Referred To Contact Dermatology Diagnoses Crohn's disease with complication, unspecified gastrointestinal tract location Page Damico MD [facility] GENERAL [place] [address] [facility] [address] [place] [address] Referral ID Status Reason Start Date Expiration Date V isits Requested Visits Authorized [id number] Closed Consult, Test & Treat 11/01/2018 11/01/2019 1 1 Encounter Details Date Type Department Care Team (Late st Contact Info) Description 02/01/2019 8:00 AM EST Office Visit Dermatology at [facility] [address] [place] [address] Erasmo Barrientos MD [facility] DR [place] [address] Hyperhidrosis; Multiple benign nevi; Dermatofibroma Social History Tobacco Use Types Packs/Day Years [...] as of this encounter Progress Notes * Erasmo Barrientos - 02/01/2019 8:00 AM EST Images from the original note were not included. DERMATOLOGY - ESTABLISHED PATIENT FOLLOW-UP Date of service: 02/01/2019 Igor Woodruff : 1975, 43 y.o. Chief Complaint: Chief Complaint Patient presents with ??? Skin Check HPI: Igor Woodruff is a 43 y.o. male last seen by Loly Alvarez MD on 12/28/2017. Mr. 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 azaTHIOprine (IMURAN) [...] No current facility-administered medications for this visit. Allergies: No Known Allergies Review of Systems: - General: Feels well. - Skin: No other skin concerns. Examination: - Constitutional: Patient was alert, well-appearing and in no noticeable distress. - Skin: Skin examination of the scalp, face, ears, neck, back, chest, abdomen, right and left upperextremities, right and left lower extremities, hands, feet, and buttocks was normal with the exception of the findings listed below. Genitalia not examined. - A female nurse was present and on standby during my examination. Diagnosis/Skin findings/Assessment/Plan: # Low Density Benign Appearing Nevi: On the back multiple, 0.3-0.5cm, medium- brown, evenly-pigmented macules and papules. - Reassurance, discussed importance of ABCDE's and monthly self exams # Dermatofibroma- 0.5 cm hyperpigmented papule with stellate center on dermoscopy and dimple sign on the right shoulder, left posterior calf -pt reassured that this is a benign condition and no further intervention required # Fried Egg Nevus - right abdomen: central dark brown pigment with surrounding light pigment, no concerning findings under dermoscopy - patient reassured benign lesion # Primary Axillary Hyperhidrosis Procedure Botulinum injection Location: BL axilla - 50 units injected in grid pattern in 20 areas in each axilla. Botox total: 100 units Lot# [id number] Exp: 03/2021 Discussed with patient diagnostic options, including the risks and benefits of observation, pain, bleeding, and infection. Patient verbally understands and elects to undergo the procedure -Time Out Performed: Full Name, , and site(s) confirmed with patient -Site was prepped in sterile fashion with Alcohol. Procedure tolerated well. No complications. RTC: 6 months for botox for hyperhidrosis, PA ends 01/01/2020; 1 year for full skin exam Note initiated by VICKIE Edgar. I, VICKIE Edgar, have performed the documentation for this encounter in the presence of and acting as a scribe for Erasmo Barrientos MD. I performed the services which were documented by the scribe, and I agree with the accuracy of the documentation in this encounter. Erasmo Barrientos MD Reviewed and signed by: Erasmo Barrientos MD Resident in Dermatology [facility] Patient seen and evaluated with staff winchman/crane operator: Loc Mir MD Section of Dermatology [facility] * Loc Mir MD - 02/01/2019 8:00 AM EST I directly supervised Dr. Barrientos during this office visit. Dr. Barrientos presented the history and physical exam to me. I then saw and examined this patient with Dr. Barrientos. We reviewed the history and pertinent details and I confirmed the physical findings. I agree with the details of the history and physical exam as documented in Dr. Barrientos' note. LOC MIR MD Staff Physician documented in this encounter Plan of Treatment Upcoming Encounters Date Type Department Care Team (Latest Contact Info) Description 04/01/2024 12:35 PM EST Hospital Encounter [place] [address] Apurva Vivas MD [facility] [place] [address] 04/01/2024 12:35 PM EST - 04/01/2024 2:17 PM EST Surgery [place] [address] Apurva Vivas MD [facility] [place] [address] ANORECTAL EXAM, REQUIRING ANESTHESIA, DIAGNOSTIC (WRVU 1.8) 04/26/2024 3:00 PM EST Office Visit [place] [phone] Apurva Vivas MD [facility] [place] [address] Scheduled Procedures Name Priority Associated Diagnoses Date/Ti [...] Visit Diagnoses Diagnosis Hyperhidrosis Primary focal hyperhidrosis Multiple benign nevi Benign neoplasm of skin, site unspecified Dermatofibroma Benign neoplasm of skin, site unspecified documented in this encounter Care Teams Professor Of Floriculture Relationship Specialty Start Date End Date Irwin Gonsalez DO [address] [place] [address] PCP - General 05/01/11 documented as of this encounter
--- OUTSIDE RECORDS SUMMARY | 2024-03-10 01:59 | XMS_ITS | Encounter Summary ---
Author Organization [facility] [place] [address] Care Team Providers Care News Anchor Name Role Phone Irwin Gonsalez DO Primary Care Provider [phone] Reason for Visit * Reason Comments Medication Refill Encounter Details Date Type Department Care Team (Late st Contact Info) Description 06/01/2018 Ref[place] [phone] Ramonita Pandey MD [facility] [place] [address] Social History Tobacco Use Types Packs/Day Years [...] PM EST Hospital Encounter [place] [phone] Apurva Vivas MD [facility] [place] [address] 04/01/2024 12:35 PM EST - 04/01/2024 2:17 PM EST Surgery [place] [address] Apurva Vivas MD [facility] [place] [address] ANORECTAL EXAM, REQUIRING ANESTHESIA, DIAGNOSTIC (WRVU 1.8) 04/26/2024 3:00 PM EST Office [place] [phone] Apurva Vivas MD [facility] [place] [address] Scheduled Procedures Name Priority Associated Diagnoses Date/Ti me ANORECTAL EXAM, REQUIRING ANESTHESIA, DIAGNOSTIC (WRVU 1.8) perianal crohns disease w/fistula 04/01/2024 12:35 PM EST SURGICAL TREATMENT OF ANAL FISTULA COMPLEX OR MULTIPLE W\WO SETON PLACEMENT (WRVU 6.39) perianal crohns disease w/fistula 04/01/2024 12:35 PM EST documented as of this encounter Goals Goal Patient Goal Type Associated Problems Recent Progress Patient-Stated? Author [facility] Medication Compliance and Understanding Patient Facing [...] on filedocumented in this encounter Care Teams News Anchor Relationship Specialty Start Date End Date Irwin Gonsalez DO [address] [place] [address] [address] [place] [address] PCP - General 05/01/11 documented as of this encounter
--- OUTSIDE RECORDS SUMMARY | 2024-03-10 01:59 | XMS_ITS | Encounter Summary ---
[place] [address] Care Team Providers Care Beauty Specialist Name Role Phone Irwin Gonsalez DO Primary Care Provider [phone] Encounter Details Date Type Department Care Team (Late st Contact Info) Description 02/03/2018 Telephone [place] [phone] Shannan Barnard, RN Social History Tobacco Use [...] Telephone Encounter - Shannan Barnard, RN - 02/03/2018 1:59 PM EST Call placed to Igor per request of Dr. Pandey: Pls check in on Igor. ??If he still has drainage from his seton, would like him to go to weekly [facility] and then Thi can check in on him at next visit. No answer, message left for call back documented in this encounter Plan of Treatment Upcoming Encounters Date Type Department Care Team (Latest Contact Info) Description 04/01/2024 12:35 PM EST Hospital Encounter [place] [phone] Apurva Vivas MD [facility] [place] [place] [address] 04/01/2024 12:35 PM EST - 04/01/2024 2:17 PM EST Surgery [place] [phone] Apurva Vivas MD [facility] [place] [address] ANORECTAL EXAM, REQUIRING ANESTHESIA, DIAGNOSTIC (WRVU 1.8) 04/26/2024 3:00 PM EST Office [place] [phone] Apurva Vivas MD [facility] [place] [address] Scheduled Procedures Name Priority Associated Diagnoses Date/Ti [...] 017 9:39 PM EDT) Perri Hernandez, [facility] Note: Patient's specific desired [...] on filedocumented in this encounter Care Teams Beauty Specialist Relationship Specialty Start Date End Date Irwin Gonsalez DO [address] [place] [address] PCP - General 05/01/11 documented as of this encounter
--- OUTSIDE RECORDS SUMMARY | 2024-03-10 01:59 | XMS_ITS | Encounter Summary ---
Author Organization [place] [address] Care Team Providers Care Block Cuber Name Role Phone Irwin Gonsalez DO Primary Care Provider [phone] Reason for Visit * Reason Comments Medication Management Encounter Details Date Type Department Care Team (Late st Contact Info) Description 11/19/2017 Specialty [place] [phone] Karishma Muir [facility] Social History Tobacco Use Types [...] this encounter Progress Notes * Karishma Noel RPH - 11/19/2017 5:01 PM EDT Specialty Pharmacy Consultation; Karishma Noel Sunday Comprehensive Medication Management (CMM) Igor Monzonjoshua Diagnosis: Crohn's Disease Therapy Start Date: 04/25/16 Mr. Igor Woodruff is a 42 y.o. (1975) male who was contacted in regard to specialty medication. Spoke with patient regarding Humira. A review of the medication therapy was performed. The medication will be Refilled as scheduled on 11/25 for 11/26 delivery, and all medication related questions and concerns were addressed. The specialty pharmacy staff will follow up with the patient 7 days prior to next refill. Is the patient willing to proceed with the Clinical Assessment? Yes Summary and Recommendations: Igor was contacted for refill reminder and regular six month pharmacist follow-up regarding Humira. He reports that the medication has helped him from baseline, and he does not report any recent flares. He typically injects in the abdomen and rotates sites so that each site is at least an inch away from the previous site. Igor has been perfectly adherent. His next injection is due Wednesday 11/29. He denies any side effects. We reviewed the importance of infection control and reporting any signs of infection to the prescriber. We also reviewed risks of Humira and importance of keeping regularappointments as well as periodic skin examinations. We also reviewed storage/handling. Igor is going on a trip for a week in the fall so we discussed that the Humira can be kept at room temperaturefor up to 14 days which should help for travelling purposes. No recommendations at this time. Follow up needed: no Allergies and Drug intolerance: No Known Allergies Special Dietary Requirements: no There is no height or weight on file to calculate BMI. Medication Reconciliation Discrepancies (compared to [facility] med list) -none Medication Adherence Patient reported X missed doses [...] medications: not needed Medication List: Current Outpatient Prescriptions Medication Sig Dispense Refill ??? azaTHIOprine (IMURAN) [...] Vitals: Ht Readings from Last 1 Encounters: 10/19/17 182.9 cm (6') Wt Readings from Last 3 Encounters: 10/19/17 102.1 kg (225 lb) 02/19/17 (!) 108.3 kg (238 lb 12.8 oz) 02/09/17 (!) 103.4 kg (228 lb) Temp Readings from Last 3 Encounters: 06/04/16 36.7 ??C (98.1 ??F) 05/23/16 36.2 ??C (97.2 ??F) (Temporal) 05/02/16 36.3 ??C (97.3 ??F) (Temporal) BP Readings from Last 3 Encounters: 10/19/17 (!) 149/100 02/19/17 (!) 155/92 02/09/17 119/80 Pulse Readings from Last 3 Encounters: 10/19/17 88 02/19/17 88 02/09/17 93 Pertinent Lab values: Lab Results Component Value Date NA 142 10/19/2017 K 4.0 10/19/2017 CL 101 10/19/2017 CO2 27 10/19/2017 BUN 15 10/19/2017 CREATININE 0.89 10/19/2017 GLUCOSE 94 10/19/2017 GLUCFASTING 123 (H) 11/01/2010 CALCIUM 9.8 10/19/2017 Lab Results Component Value Date ALT 43 10/19/2017 AST 31 10/19/2017 ALKPHOS 59 10/19/2017 BILITOT 1.5 (H) 10/19/2017 BILIDIR 0.2 2017 ALBUMIN 4.5 10/19/2017 PROT 7.4 10/19/2017 Lab Results Component Value Date WBC 5.0 10/19/2017 HGB 15.8 10/19/2017 HCT 43.6 10/19/2017 MCV 87.7 10/19/2017 PLATELET 238 10/19/2017 No results found for: HA1C Immunization History Administered Date(s) Administered ??? Pneumococcal Conjugate (13 Valent) 2017 ??? Pneumococcal Polyvalent 23 10/10/2014 Assessment and Recommendations: Title Type of Medication Management: chronic disease management, targeted medication review Referred By: provider Recipient: beneficiary Provider: plan sponsor pharmacist Visit Type: [facility] Follow-up Method of Contact: by telephone Cognitive Ability: good Drug Interactions Provided the patient with educational [...] preventative care discussed, reminder to refill or mushroom picker medication discussed, self-monitoring discussed, timing of medications discussed, vaccination discussed, lifestyle modification education Drug Medication Management Summary Topics discussed: reviewed [...] preventative care discussed, reminder to refill or mushroom picker medication discussed, self-monitoring discussed, timing of medications discussed, vaccination discussed, lifestyle modification education Time spent: 1-15 min Treatment Outcomes No data found. Reviewed in detail with patient: Dose appropriateness [...] disposal of the medication Relevant lab data Physical Assessment: Functional limitations identified: no Cognitive limitations identified: no Concern regarding orientation/memory: no Concern with reasoning/judgement: no Is patient a fall risk: no Other needed information: no Social Assessment: Does the patient have a primary customer care professional? no Patient has emergency contact on file: Yes Physical and Home Health Assessment: Is the patient able to store their medication as directed? Yes Is the patient in a safe home environment? Yes Do you have a support network? Yes Reviewed potential home safety hazards: Yes Economic Assessment: Patient is agreeable to medication copay: Yes Copay Amount: $0 Day Supply: 28 Date Needed: 11/29 Copay assistance required: yes - [employer] coupon card Therapy Assessment: Appropriate Therapy: Yes Current Medication Dosing/Route/Frequency: Humira 40mg sc every 14 days Effective: yes - patient notes improvement from baseline Patient experienced change in condition that affects treatment: no Are you experiencing any side effects from your medication? no Is the patient on track to achieve goals of therapy? Yes Goals ??? DH Home Medication Compliance and Understanding Igor would like to stay adherent on Humira. We will continue to provide refill reminders to prevent gaps in therapy. Additional care/services needed: no Educational information or adherence tools provided: Yes Additional equipment/supplies required: yes, sharp container will be mailed with medication Plan of Care Reviewed and Approved by Patient: yes Did Care Plan Change? No Informed patient of specialty pharmacy services: Yes -Patient received welcome packet: Yes Date Received: 05/23/16 -Patient returned signed Rights & Responsibiliites: Yes Date Received: 11/20/17 -Patient is aware a licensed pharmacist is [...] Patient Satisfaction with Therapy: yes - Patient notes improvement from baseline and no side effects. Pt understands no changes to current drug regimen were made at the appointment and that [facility] is providing recommendations (summary located at top of note) for provider review and follow up. Karishma Noel RPH 11/19/17 5:02 PM documented in this encounter Plan of Treatment Upcoming Encounters Date Type Department Care Team (Latest Contact Info) Description 04/01/2024 12:35 PM EST Hospital Encounter [place] [address] Apurva Vivas MD [facility] [place] [address] 04/01/2024 12:35 PM EST - 04/01/2024 2:17 PM EST Surgery [place] [phone] Apurva Vivas MD [facility] [place] [address] ANORECTAL EXAM, REQUIRING ANESTHESIA, DIAGNOSTIC (WRVU 1.8) 04/26/2024 3:00 PM EST Office [place] [phone] Apurva Vivas MD [facility] [place] [address] Scheduled Procedures Name Priority Associated Diagnoses Date/Ti me ANORECTAL EXAM, REQUIRING ANESTHESIA, DIAGNOSTIC (WRVU 1.8) perianal crohns disease w/fistula 04/01/2024 12:35 PM EST SURGICAL TREATMENT OF ANAL FISTULA COMPLEX OR MULTIPLE W\WO SETON PLACEMENT (WRVU 6.39) perianal crohns disease w/fistula 04/01/2024 12:35 PM EST documented as of this encounter Goals Goal Patient Goal Type Associated Problems Recent Progress Patient-Stated? Author [facility] Medication Compliance and Understanding Patient Facing Action Plan On track( 017 9:39 PM EDT) Perri Hernandez [facility] Note: Patient's specific desired [...] on filedocumented in this encounter Care Teams Block Cuber Relationship Specialty Start Date End Date Irwin Gonsalez DO [address] [place] [address] [address] [place] [address] PCP - General 05/01/11 documented as of this encounter
--- OUTSIDE RECORDS SUMMARY | 2024-03-10 01:59 | XMS_ITS | Encounter Summary ---
Author Organization [facility] [place] [address] Care Team Providers Care Public Policy Mediator Name Role Phone Irwin Gonsalez DO Primary Care Provider [phone] Encounter Details Date Type Department Care Team (Late st Contact Info) Description 03/15/2018 Orders [place] [phone] Shannan Barnard, RN Crohn's disease of ileum [...] PM EST Hospital Encounter [place] [phone] Apurva Vivas MD [facility] [place] [address] 04/01/2024 12:35 PM EST - 04/01/2024 2:17 PM EST [place] [address] Apurva Vivas MD [facility] [place] [address] ANORECTAL EXAM, REQUIRING ANESTHESIA, DIAGNOSTIC (WRVU 1.8) 04/26/2024 3:00 PM EST Office [place] [phone] Apurva Vivas MD [facility] [place] [address] Scheduled Procedures Name Priority Associated Diagnoses Date/Ti [...] track( 017 9:39 PM EDT) Perri Hernandez, [facility] Note: Patient's specific [...] complication documented in this encounter Care Teams Public Policy Mediator Relationship Specialty Start Date End Date Irwin Gonsalez DO [address] [place] [address] PCP - General 05/01/11 documented as of this encounter
--- OUTSIDE RECORDS SUMMARY | 2024-03-10 01:59 | XMS_ITS | Encounter Summary ---
Author Organization [facility] Address [facility] [place] [address] Care Team Providers Care Parakeet Raiser Name Role Phone Irwin Gonsalez DO Primary Care Provider [phone] Encounter Details Date Type Department Care Team (Late st Contact Info) Description 12/24/2018 Telephone Dermatology at [facility] [address] [place] [address] Erasmo Barrientos MD [facility] [place] [address] Social History Tobacco Use Types Packs/Day Years [...] encounter Miscellaneous Notes * Telephone Encounter - Nikole Brooks - 12/29/2018 4:20 PM EDT PA must be processed through [employer]. New PA was completed and sent via [employer]. * Telephone Encounter - Cheryl Lopez - 12/24/2018 11:40 AM EDT Rosa from [facility] contacted the [facility] today regarding Igor's PA for Botox. She needs a code for the botox before the PA can go further. Please contact her at [phone] option 3, option 1. Use documented in this encounter Plan of Treatment Upcoming Encounters Date Type Department Care Team (Latest Contact Info) Description 04/01/2024 12:35 PM EST Hospital Encounter [place] [phone] Apurva Vivas MD [facility] [place] [address] 04/01/2024 12:35 PM EST - 04/01/2024 2:17 PM EST Surgery [place] [phone] Apurva Vivas MD [facility] [place] [address] ANORECTAL EXAM, REQUIRING ANESTHESIA, DIAGNOSTIC (WRVU 1.8) 04/26/2024 3:00 PM EST Office Visit [place] [phone] Apurva Vivas MD [facility] [place] [address] Scheduled Procedures Name Priority Associated Diagnoses Date/Ti [...] 017 9:39 PM EDT) No Perri Sousa, [facility] Note: Patient's specific desired goal: [...] on filedocumented in this encounter Care Teams Parakeet Raiser Relationship Specialty Start Date End Date Irwin Gonsalez DO [address] [place] [address] PCP - General 05/01/11 documented as of this encounter
--- OUTSIDE RECORDS SUMMARY | 2024-03-10 01:59 | XMS_ITS | Encounter Summary ---
[place] [address] Care Team Providers Care Diesel Locomotive Firer Name Role Phone Irwin Gonsalez DO Primary Care Provider Reason for Visit * Reason Comments Medication Management Encounter Details Date Type Department Care Team (Late st Contact Info) Description 07/08/2018 Specialty [place] [phone] Adelaide Sánchez Social History Tobacco Use Types Packs/Day Years [...] as of this encounter Progress Notes * Adelaide Gonzales RPH - 07/08/2018 2:19 PM EDT Clinical Management Plan: Refill Specialty Pharmacy Consultation; Adelaide Gonzales RPH Comprehensive Medication Management (CMM) Igor Sherine Kacy Mr. Igor Woodruff is a 43 y.o. [...] the Care Plan: no Assessment and Recommendations: Type of Medication Management: chronic disease management, targeted medication review Referred By: provider Recipient: beneficiary Provider: plan sponsor pharmacist Visit Type: [facility] Follow-up Method of Contact: by telephone Cognitive Ability: good Cognitive Impairment Status Verified this Year: no Allergies and Drug intolerance: No Known Allergies Medication Reconciliation Discrepancies (compared to [facility] med list) -none New medications: no [...] note) for provider review and follow up. Adelaide Gonzales RPH 07/08/18 2:22 PM documented in this encounter Plan of Treatment Upcoming Encounters Date Type Department Care Team (Latest Contact Info) Description 04/01/2024 12:35 PM EST Hospital Encounter [place] [address] Apurva Vivas MD [facility] [place] [address] 04/01/2024 12:35 PM EST - 04/01/2024 2:17 PM EST Surgery [place] [address] Apurva Vivas MD [facility] [place] [address] ANORECTAL EXAM, REQUIRING ANESTHESIA, DIAGNOSTIC (WRVU 1.8) 04/26/2024 3:00 PM EST Office Visit General Surgery at [facility] [place] [address] Apurva Vivas MD [facility] [place] [address] Scheduled Procedures Name Priority Associated Diagnoses Date/Ti me ANORECTAL EXAM, REQUIRING ANESTHESIA, DIAGNOSTIC (WRVU 1.8) perianal crohns disease w/fistula 04/01/2024 12:35 PM EST SURGICAL TREATMENT OF ANAL FISTULA COMPLEX OR MULTIPLE W\WO SETON PLACEMENT (WRVU 6.39) perianal crohns disease w/fistula 04/01/2024 12:35 PM EST documented as of this encounter Goals Goal Patient Goal Type Associated Problems Recent Progress Patient-Stated? Author [facility] Medication Compliance and Understanding Patient Facing Action Plan On track( 017 9:39 PM EDT) No Perri Sousa, [facility] Note: Patient's specific [...] on filedocumented in this encounter Care Teams Diesel Locomotive Firer Relationship Specialty Start Date End Date Irwin Gonsalez DO [address] [place] [address] PCP - General 05/01/11 documented as of this encounter
--- OUTSIDE RECORDS SUMMARY | 2024-03-10 01:59 | XMS_ITS | Encounter Summary ---
[place] [address] Care Team Providers Care Field Support Rep Name Role Phone Irwin Gonsalez DO Primary Care Provider Reason for Visit * Reason Comments Medication Management Encounter Details Date Type Department Care Team (Late st Contact Info) Description 12/18/2017 Specialty Pharmacy [place] [phone] Karishma Muir [facility] Social History Tobacco Use Types Packs/Day Years [...] this encounter Progress Notes * Karishma Noel [facility] - 12/18/2017 9:43 AM EDT Clinical Management Plan: Refill of Humira Specialty Pharmacy Consultation; Karishma Noel [facility] Comprehensive Medication Management (CMM) Igor Sherine Mayitorobertjoshua Mr. Igor Woodruff is a 42 y.o. (1975) male who was contacted in regard to a specialty medication refill reminder. Spoke with patient regarding ADALIMUMAB. A review of the medication therapywas performed. The medication was Refilled as scheduled, and all medication related questions and concerns were addressed. His next injection is due 12/27. The specialty pharmacy staff will follow upwith the patient 7 days prior to next refill. Was a change made to the Care Plan: no Assessment and Recommendations: Title Type of Medication Management: targeted medication review Referred By: provider Recipient: beneficiary Provider: plan sponsor pharmacist Visit Type: [facility] Follow-up Method of Contact: by telephone Cognitive Ability: good Allergies and Drug intolerance: No Known Allergies Medication Reconciliation Discrepancies (compared to [facility] med list) -none New medications: no New [...] were made at the appointment and that [facility] is providing recommendations (summary located at top of note) for provider review and follow up. Karishma Noel RPH 12/18/17 9:44 AM documented in this encounter Plan of Treatment Upcoming Encounters Date Type Department Care Team (Latest Contact Info) Description 04/01/2024 12:35 PM [facility] Hospital Encounter [place] [address] Apurva Vivas MD [facility] [place] [address] 04/01/2024 12:35 PM EST - 04/01/2024 2:17 PM EST Surgery [place] [address] pAurva Vivas MD [facility] [place] [address] ANORECTAL EXAM, REQUIRING ANESTHESIA, DIAGNOSTIC (WRVU 1.8) 04/26/2024 3:00 PM EST Office [place] [address] Apurva Vivas MD [facility] [place] [address] Scheduled Procedures Name Priority Associated Diagnoses Date/Ti me ANORECTAL EXAM, REQUIRING ANESTHESIA, DIAGNOSTIC (WRVU 1.8) perianal crohns disease w/fistula 04/01/2024 12:35 PM EST SURGICAL TREATMENT OF ANAL FISTULA COMPLEX OR MULTIPLE W\WO SETON PLACEMENT (WRVU 6.39) perianal crohns disease w/fistula 04/01/2024 12:35 PM EST documented as of this encounter Goals Goal Patient Goal Type Associated Problems Recent Progress Patient-Stated? Author [facility] Medication Compliance and Understanding Patient Facing Action Plan On track( 017 9:39 PM EDT) Perri Hernandez, [facility] Note: Patient's specific desired goal: Igor [...] on filedocumented in this encounter Care Teams Field Support Rep Relationship Specialty Start Date End Date Irwin Gonsalez DO [address] [place] [address] PCP - General 05/01/11 documented as of this encounter
--- OUTSIDE RECORDS SUMMARY | 2024-03-10 01:59 | XMS_ITS | Encounter Summary ---
[place] [address] Care Team Providers Care Silica Spray Mixer Name Role Phone Irwin Gonsalez DO Primary Care Provider [phone] Reason for Visit * Reason Comments Medication Management Encounter Details Date Type Department Care Team (Late st Contact Info) Description 08/02/2018 Specialty [place] [phone] Airam Velásquez RPH Social History Tobacco Use Types Packs/Day [...] as of this encounter Progress Notes * Airam Velásquez RPH - 08/02/2018 5:16 PM EDT Clinical Management Plan: Refill Specialty Pharmacy Consultation; Airam Velásquez RPH Comprehensive Medication Management (CMM) Igor Woodruff Mr. Igor Woodruff is a 43 y.o. (1975) male who was contacted in regard to a specialty medication refill reminder. Spoke with patient regarding Humira. A review of the medication therapy wasperformed. The medication was Refilled as scheduled pending new prescription refill from provider, and all medication related questions and concerns were addressed. The specialty pharmacy staff will follow up with the patient 5-7 days prior to next refill. Was a change made to the Care Plan: no Assessment and Recommendations: Title Type of Medication Management: chronic disease management, targeted medication review Referred By: pharmacist Recipient: beneficiary Provider: plan sponsor pharmacist Visit Type: [facility] Follow-up Method of Contact: by telephone Cognitive Ability: good Cognitive Impairment Status Verified this Year: no Allergies and Drug intolerance: No Known Allergies Medication Reconciliation Discrepancies (compared to [facility] med list) -none New medications: no [...] made at the appointment and that [facility] is providing recommendations (summary located at top of note) for provider review and follow up. Airam Velásquez RPH 08/02/18 5:17 PM documented in this encounter Plan of Treatment Upcoming Encounters Date Type Department Care Team (Latest Contact Info) Description 04/01/2024 12:35 PM EST Hospital Encounter [place] [address] Apurva Vivas MD [facility] [place] [address] 04/01/2024 12:35 PM EST - 04/01/2024 2:17 PM EST Surgery [place] [address] Apurva Vivas MD [facility] [place] [address] ANORECTAL EXAM, REQUIRING ANESTHESIA, DIAGNOSTIC (WRVU 1.8) 04/26/2024 3:00 PM EST Office Visit General Surgery at [facility] [place] [address] Apurva Vivas MD [facility] [place] [address] Scheduled Procedures Name Priority Associated Diagnoses Date/Ti nd ANORECTAL EXAM, REQUIRING ANESTHESIA, DIAGNOSTIC (WRVU 1.8) perianal crohns disease w/fistula 04/01/2024 12:35 PM EST SURGICAL TREATMENT OF ANAL FISTULA COMPLEX OR MULTIPLE W\WO SETON PLACEMENT (WRVU 6.39) perianal crohns disease w/fistula 04/01/2024 12:35 PM EST documented as of this encounter Goals Goal Patient Goal Type Associated Problems Recent Progress Patient-Stated? Author [facility] Medication Compliance and Understanding Patient Facing Action Plan On track( 017 9:39 PM EDT) Perri Hernandez, [facility] Note: Patient's [...] on filedocumented in this encounter Care Teams Silica Spray Mixer Relationship Specialty Start Date End Date Irwin Gonsalez DO [address] [place] [address] PCP - General 05/01/11 documented as of this encounter
--- OUTSIDE RECORDS SUMMARY | 2024-03-10 01:59 | XMS_ITS | Encounter Summary ---
[place] [address] Care Team Providers Care Weaving Teacher Name Role Phone Irwin Gonsalez DO Primary Care Provider [phone] Reason for Visit * Reason Comments Medication Management Encounter Details Date Type Department Care Team (Late st Contact Info) Description 03/15/2018 Specialty [place] [phone] Karishma Muir [facility] Social History Tobacco Use Types [...] this encounter Progress Notes * Karishma Noel Sunday - 03/15/2018 11:26 AM EST Clinical Management Plan: Refill of Humira Specialty Pharmacy Consultation; Karishma Noel [facility] Comprehensive Medication Management (CMM) Igor Sherine Mayitorobertjoshua Mr. Igor Woodruff is a 43 y.o. (1975) male who was contacted in regard to a specialty medication refill reminder. Spoke with patient regarding Humira. A review of the medication therapy wasperformed. The medication was Refilled as scheduled, and all medication related questions and concerns were addressed. Igor's next injection is due on 03/21. He is also due for regular labwork. Lab orders were faxed to [facility] in Apr so a request for new standing orders was [facility] in case these are . The specialty pharmacy staff will follow up with the patient 5-7 days prior to next refill. Was a change made to the Care Plan: no Assessment and Recommendations: Title Type of Medication Management: chronic disease management, targeted medication review Referred By: provider Recipient: beneficiary Provider: plan sponsor pharmacist Visit Type: [facility] Follow-up Method of Contact: by telephone Cognitive Ability: good Cognitive Impairment Status Verified this Year: no Allergies and Drug intolerance: No Known Allergies Medication Reconciliation Discrepancies (compared to [facility] med list) -none New medications: no New [...] and that [facility] is providing recommendations (summary located at top of note) for provider review and follow up. Karishma Noel RPH 03/15/18 11:26 AM documented in this encounter Plan of Treatment Upcoming Encounters Date Type Department Care Team (Latest Contact Info) Description 04/01/2024 12:35 PM EST Hospital Encounter [place] [address] Apurva Vivas MD [facility] [place] [address] 04/01/2024 12:35 PM EST - 04/01/2024 2:17 PM EST Surgery [place] [address] Apurva Vivas MD [facility] [place] [address] ANORECTAL EXAM, REQUIRING ANESTHESIA, DIAGNOSTIC (WRVU 1.8) 04/26/2024 3:00 PM EST Office [place] [phone] Apurva Vivas MD [facility] [place] [address] Scheduled Procedures Name Priority Associated Diagnoses Date/Ti tn ANORECTAL EXAM, REQUIRING ANESTHESIA, DIAGNOSTIC (WRVU 1.8) [...] on filedocumented in this encounter Care Teams Weaving Teacher Relationship Specialty Start Date End Date Irwin Gonsalez DO [address] [place] [address] PCP - General 05/01/11 documented as of this encounter
--- OUTSIDE RECORDS SUMMARY | 2024-03-10 01:59 | XMS_ITS | Encounter Summary ---
[place] [address] Care Team Providers Care Final Rail Cutter Name Role Phone Irwin Gonsalez DO Primary Care Provider [phone] Encounter Details Date Type Department Care Team (Late st Contact Info) Description 04/22/2018 Telephone [place] [address] Sabas Gonzales RN Social History Tobacco Use [...] Telephone Encounter - Sabas Gonzales RN - 04/22/2018 12:18 PM EST Called and LM for patient. Labs very overdue. Orders at [facility]. documented in this encounter Plan of Treatment Upcoming Encounters Date Type Department Care Team (Latest Contact Info) Description 04/01/2024 12:35 PM EST Hospital Encounter [place] [address] Apurva Vivas MD [facility] [place] [place] [address] 04/01/2024 12:35 PM EST - 04/01/2024 2:17 PM EST [place] [phone] Apurva Vivas MD [facility] [place] [address] ANORECTAL EXAM, REQUIRING ANESTHESIA, DIAGNOSTIC (WRVU 1.8) 04/26/2024 3:00 PM EST Office [place] [phone] Apurva Vivas MD [facility] [place] [address] Scheduled Procedures Name Priority Associated Diagnoses Date/Ti ma ANORECTAL EXAM, REQUIRING ANESTHESIA, DIAGNOSTIC (WRVU 1.8) [...] 9:39 PM EDT) Perri Hernandez, [facility] Note: Patient's [...] on filedocumented in this encounter Care Teams Final Rail Cutter Relationship Specialty Start Date End Date Irwin Gonsalez DO [address] [place] [address] PCP - General 05/01/11 documented as of this encounter
--- OUTSIDE RECORDS SUMMARY | 2024-03-10 01:59 | XMS_ITS | Encounter Summary ---
Author Organization [facility] [place] [address] Care Team Providers Care Vocational Training Teacher Name Role Phone Irwin Gonsalez DO Primary Care Provider Reason for Referral * Consultation (Routine) - Closed Specialty Diagnoses / Procedures Referred By Contac t Referred To Contact Dermatology Diagnoses Crohn's disease with complication, unspecified gastrointestinal tract location Page Damico MD [facility] GENER[facility] [place] [address] [facility] Dermatology [address] [place] [address] Referral ID Status Reason Start Date Expiration Date V isits Requested Visits Authorized [id number] Closed Consult, Test & Treat 11/01/2018 11/01/2019 1 1 * Diagnostic Test (Routine) - Closed Specialty Diagnoses / Procedures Referred By Contac t Referred To Contact Radiology Diagnoses Crohn's disease with complication, unspecified gastrointestinal tract location Procedures MRI Enterography wwo Contrast Page Damico MD [facility] [place] [address] [place] [address] Referral ID Status Reason Start Date Expiration Date V isits Requested Visits Authorized [id number] Closed Specialty Service Requested 01/19/2019 03/19/2019 1 1 Reason for Visit * Reason Comments Follow-up Encounter Details Date Type Department Care Team (Latest Contact Info) Description 11/01/2018 8:30 AM EDT Office Visit Gastroenterology at [facility] [place] [address] Ramonita Pandey MD [facility] [place] [address] Crohn's disease with complication, unspecified gastrointestinal tract location; Crohn's disease of ileum with other complication [...] Sign Reading Time Taken Comments Blood Pressure 144/103 11/01/2018 8:41 AM EDT Pulse 87 11/01/2018 8:41 AM EDT Temperature - - Respiratory Rate - - Oxygen Saturation - - Inhaled Oxygen Concentration - - Weight 105.9 kg (233 lb 6.4 oz) 11/01/2018 8:41 AM EDT w/ boots Height 182.9 cm (6') 11/01/2018 8:41 AM EDT Body Mass Index 31.65 11/01/2018 8:41 AM EDT documented in this encounter Progress Notes * Page Damico MD - 11/01/2018 8:30 AM EDT Images from the original note were not included. PROBLEM LIST ??? Crohn's ileitis ?? diagnosed at age 17 yo ?? [...] active disease. ?? 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 Humira added to AZA in 04/2016 ??? Abnormal liver function test ??? GERD (gastroesophageal reflux disease) ? Subjective: 43 year old male with a history of Crohn's with perianal fistulizing disease on Humira every other week/ AZA 250 mg per day presenting for follow-up. Patient was last seen in clinic 10/29/2017. At this visit he had been having more blood in the stool. In the past few months he has been 3-4 bowel movements a day, which is normal for him. Stools are formed ~ 50% of the time. He is no longer having blood in the stool and denies abdominal pain. His seton is still in place without any issues. He denies any missed doses of medication. Last labwork was in April was within normal limits (CBC, LFTs and CRP). Last colonoscopy was in 2016 and showed 2 superficial aphthae at the anastomosis site. Most Recent Vitals: 11/01/18 0841 BP: (!) 144/103 Pulse: 87 Physical Exam Constitutional: He is oriented to person, place, and time. He appears well- developed and well-nourished. Sitting up on exam table in no acute distress HENT: Head: Normocephalic and atraumatic. Neck: Neck supple. No JVD present. Cardiovascular: Normal rate, regular rhythm and normal heart sounds. Exam reveals no gallop and no friction rub. No murmur heard. Abdominal: Soft, nontender. Normal bowel sounds present. No rebound or guarding. No masses palpated Musculoskeletal: He exhibits no edema. Neurological: He is alert and oriented to person, place, and time. No gross deficits. Cranial nerves grossly intact Skin: Skin is warm and dry. Small keratotic papules on right forearm, otherwise no abnormal rashes or lesions noted Lab Results Component Value Date WBC 5.0 10/19/2017 RBC 4.97 10/19/2017 HGB 15.8 10/19/2017 HCT 43.6 10/19/2017 MCV 87.7 10/19/2017 MCH 31.8 10/19/2017 MCHC 36.2 (H) 10/19/2017 PLATELET 238 10/19/2017 RDWCV 13.1 10/19/2017 Lab Results Component Value Date ALT 43 10/19/2017 AST 31 10/19/2017 ALKPHOS 59 10/19/2017 BILITOT 1.5 (H) 10/19/2017 Lab Results Component Value Date CRP <0.2 10/19/2017 05/07/18 Labs ASSESSMENT AND RECOMMENDATIONS: 43 year old male with a history of Crohn's with history of fistulizing ileitis and perianal fistulizing disease on Humira every other week/ AZA 250 mg per day presenting for follow-up. Mr Woodruff appears to be doing well on his current regimen and reports resolution of bloody bowelmovements. His last colonoscopy was in 2016; given his history of fistulizing disease and his increased symptoms at last visit, he would benefit from restaging. Will order an MRE with plan for colonoscopy likely next year if imaging findings are stable. We will continue on azathioprine and Humira for now and consider stopping azathioprine after re-staging. Plan for labwork today and referral to Dermatology for skin exam while on azathioprine. We discussed the following recommendations that were printed out for the patient: # Check labs today- CBC, LFTs, CRP # Continue current medications (250 mg AZA QD and Humira) # Re-staging MRE # Referral to Dermatology for skin exam while on azathioprine # Pneumococcal Conjugate (13 Valent) 03/01 # Pneumococcal Polyvalent 23 09/27 HTN # follow-up with PCP Plan was discussed with Dr Pandey. Page Damico PGY-3 Internal Medicine CC: Irwin Gonsalez DO [address] [place] [phone] * Ramonita Pandey MD - 11/01/2018 8:30 AM EDT ATTENDING ADDENDUM I interviewed and examined Igor Woodruff with Dr. Damico in clinic today. I have discussed thecase with her and confirm the history and garcia physical findings outlined in this note. The assessment and plan were formulated in discussion with me at the time of this encounter, and I agree with them as documented. Overall, Mr. Gan is doing very well. Discussed not changing meds for now. Will check MRE this fall. If normal, will consider repeat colo again for staging in 1-2 yrs. If not normal, will proceed sooner. Due for labs. We will see him back in the office in 6 months. Angelo Pandey MD [employer] [facility] Co-Director, [facility] Section of Gastroenterology [place] [address] documented in this encounter Plan of Treatment Upcoming Encounters Date Type Department Care Team (Latest Contact Info) Description 04/01/2024 12:35 PM EST Hospital Encounter [place] [address] Apurva Vivas MD [facility] [place] [address] 04/01/2024 12:35 PM EST - 04/01/2024 2:17 PM EST Surgery [place] [phone] Apurva Vivas MD [facility] [place] [address] ANORECTAL EXAM, REQUIRING ANESTHESIA, DIAGNOSTIC (WRVU 1.8) 04/26/2024 3:00 PM EST Office Visit General Surgery at [facility] [address] Apurva Vivas MD [facility] [place] [address] Scheduled Procedures Name Priority Associated Diagnoses Date/Ti me ANORECTAL EXAM, REQUIRING ANESTHESIA, DIAGNOSTIC (WRVU 1.8) perianal crohns disease w/fistula 04/01/2024 12:35 PM EST SURGICAL TREATMENT OF ANAL FISTULA COMPLEX OR MULTIPLE W\WO SETON PLACEMENT (WRVU 6.39) perianal crohns disease w/fistula 04/01/2024 12:35 PM EST Scheduled Referrals Name Type Priority Associated Diagnoses Orde r Schedule Referral to Dermatology Outpatient Referral Routine Crohn's disease with complication, unspecified gastrointestinal tract location Ordered: 11/01/2018 documented as of this encounter Goals Goal Patient Goal Type Associated Problems Recent Progress Patient-Stated? Author [facility] Medication Compliance and Understanding Patient Facing [...] Name Priority Date/Time Associated Diagnosis Comments HC C-REACTIVE PROTEIN Routine 11/01/2018 9:52 AM EDT Crohn's disease with complication, unspecified gastrointestinal tract location HEMOGRAM Routine 11/01/2018 9:52 AM EDT Crohn's disease of ileum with other complication DIFFERENTIAL, AUTOMATED Routine 11/01/2018 9:52 AM EDT Crohn's disease of ileum with other complication HC CBC,PLT & AUTO DIFF Routine 11/01/2018 9:52 AM EDT Crohn's disease of ileum with other complication HC VENIPUNCTURE Routine 11/01/2018 9:52 AM EDT Crohn's disease with complication, unspecified gastrointestinal tract location documented in this encounter Results * MRI Enterography wwo Contrast (02/25/2019 4:09 PM EST) Anatomical Region Laterality Modality Abdomen Magnetic Resonan ce Impressions 02/28/2019 11:51 AM EST 1. ??No sites of active disease identified. 2. ??Status post prior ileocolonic resection with widely patent anastomosis. 3. ??Prior perirectal fistula is not included in the udpsy-vi-crxt on today's examination. I have personally reviewed the image(s) and the resident's interpretation and agree with the findings, Roxana Moran at 02/28/2019 11:51 AM Thank you for letting us participate in the care of this patient. For questions regarding this report, please contact the number below. ? Electronically signed by: Roxana Moran [facility] ([phone]), at 02/28/2019 11:51 AM Narrative 02/28/2019 11:51 AM EST EXAMINATION: MRI ENTEROGRAPHY WWO CONTRAST CLINICAL HISTORY: re-staging in patient with crohns TECHNIQUE: ??MRI of the abdomen and pelvis was performed with images obtained prior to and following the intravenous administration of 22 ml of Dotarem. ??0.5 mg glucagon was also administered. ??Breeza was administered as an oral contrast. COMPARISON: Prior CT of the abdomen and pelvis 03/21/2016 and prior MRI of the pelvis 01/21/2016. FINDINGS: GI tract: The patient is status post prior ileocolic resection. The current small and large bowel anastomosis in the right mid abdomen is widely patent. A portion of the distal small bowel is not well distended with contrast on this examination, however no dilated small or large bowel, bowel wall thickening or mesenteric inflammation identified within these limitations. No pseudodiverticula. No mucosal hyperenhancement. No mesenteric congestion. The patient's previously visualized perirectal fistula is not included in the avseb-oy-rjla on today's examination. Extra-intestinal findings: No relevant findings. Liver: Normal signal, no focal lesions. Bile ducts: Nondilated. Gallbladder: No gallstones. Normal gallbladder wall thickness. Pancreas: Normal. Spleen: Normal. Adrenals: Normal. Kidneys: Normal. Lymph nodes: No pathologically enlarged lymph nodes. Reproductive structures: Normal. Osseous structures: No focal lesions or bone marrow signal abnormality on this examination not dedicated for assessment of the osseous structures. Procedure Note Roxana Moran MD - 02/28/2019 EXAMINATION: MRI ENTEROGRAPHY WWO CONTRAST CLINICAL HISTORY: re-staging in patient with crohns TECHNIQUE: MRI of the abdomen and pelvis was performed with imagesobtained prior to and following the intravenous administration of 22 ml of Dotarem.0.5 mg glucagon was also administered. Breeza was administered as an oralcontrast. COMPARISON: Prior CT of the abdomen and pelvis 03/21/2016 and prior MRI ofthe pelvis 01/21/2016. FINDINGS: GI tract: The patient is status post prior ileocolic resection. Thecurrent small and large bowel anastomosis in the right mid abdomen is widelypatent. A portion of the distal small bowel is not well distended with contrast onthis examination, however no dilated small or large bowel, bowel wallthickening or mesenteric inflammation identified within these limitations. No pseudodiverticula. No mucosal hyperenhancement. No mesenteric congestion.The patient's previously visualized perirectal fistula is not included inthe fzglh-nu-guuv on today's examination. Extra-intestinal findings: No relevant findings. Liver: Normal signal, no focal lesions. Bile ducts: Nondilated. Gallbladder: No gallstones. Normal gallbladder wall thickness. Pancreas: Normal. Spleen: Normal. Adrenals: Normal. Kidneys: Normal. Lymph nodes: No pathologically enlarged lymph nodes. Reproductive structures: Normal. Osseous structures: No focal lesions or bone marrow signal abnormality onthis examination not dedicated for assessment of the osseous structures. IMPRESSION 1. No sites of active disease identified. 2. Status post prior ileocolonic resection with widely patentanastomosis. 3. Prior perirectal fistula is not included in the mfvur-je-bwfd ontoday's examination. I have personally reviewed the image(s) and the resident's interpretationand agree with the findings, Roxana Moran at 02/28/2019 11:51 AM Thank you for letting us participate in the care of this patient. Forquestions regarding this report, please contact the number below. Electronically signed by: Roxana Moran [facility] ([phone]),at 02/28/2019 11:51 AM L Timothy Pandey MD IMG MRI ORDERABLES * Differential, Automated (11/01/2018 9:52 AM EDT) Neutrophil % 49.6 % [facility] Neutrophil Absolute 2.58 1.70 - 6.10 x10(3)/[facility] Lymph % 42.1 % [facility] Lymphocytes Abs 2.2 0.9 - 3.2 x10(3)/[facility] Monocyte % 6.5 % [facility] Monocyte Abs 0.3 0.3 - 0.9 x10(3)/[facility] Eos % 1.0 % [facility] Eosinophils Abs 0.0 0.0 - 0.4 x10(3)/[facility] Basophil % 0.4 % [facility] Baso Absolute 0.0 0.0 - 0.1 x10(3)/[facility] Immature Gran % 0.40 % [facility] Comment: Immature granulocytes(IG's)percentage and absolute count will include metamyelocytes, myelocytes, and promyelocytes. Blood smears from CBCs yielding IG's will be scanned manually for concordance. If this scan disagrees with the automated IG or if promyelocytes are noted, a manual differential will be performed. Immature Gran Absolute 0.02 0.00 - 0.04 x10(3)/[facility] Blood specimen (specimen) 11/01/2018 9:52 AM EDT 11/01/2018 10:22 AM EDT Narrative Resulting Agency Comment Spec In Lab L Timothy Pandey MD HEMATOLOGY ORDERABLE S [facility] [place] [address] * Hemogram (11/01/2018 9:52 AM EDT) White Blood Cell 5.2 4.0 - 9.5 x10(3)/[facility] Red Blood Cell 4.77 4.58 - 5.54 x10(6)/[facility] Hemoglobin 14.7 13.7 - 16.5 gm/dL [facility] Hematocrit 43.8 40.5 - 48.5 % [facility] Mean Cell Volume 91.8 82.9 - 93.1 [facility] Mean Cell Hemoglobin 30.8 27.5 - 32.[address] [facility] Mean Cell Hemoglobin Concentration 33.6 32.0 - 35.7 gm/dL [facility] Platelet 270 145 - 357 x10(3)/[facility] RDW Standard Deviation 43.8 36.0 - 45.0 [facility] RDW coefficient of variation 12.9 11.4 - 13.8 % [facility] Mean Platelet Volume 9.6 7.6 - 12.9 [facility] NRBC% auto 0.0 % [facility] NRBC Absolute 0.000 0.000 - 0.000 x10(3)/[facility] Blood specimen (specimen) 11/01/2018 9:52 AM EDT 11/01/2018 10:22 AM EDT Narrative Resulting Agency Comment Spec In Lab L Timothy Pandey MD HEMATOLOGY ORDERABLE S [facility] [place] [address] * (ABNORMAL) Hepatic Function Panel (11/01/2018 9:52 AM EDT) Protein, Total 7.4 6.1 - 8.0 gm/dL [facility] Albumin 4.4 3.2 - 5.2 gm/dL [facility] Aspartate Aminotransferase 40(H) 0 - 39 unit/L [facility] Alanine Aminotransferase 66(H) 0 - 55 unit/L [facility] Alkaline Phosphatase 51 40 - 130 unit/L [facility] Bilirubin, Total 1.3 0.2 - 1.3 mg/dL [facility] Bilirubin, Direct 0.2 0.0 - 0.3 mg/dL [facility] Blood specimen (specimen) 11/01/2018 9:52 AM EDT 11/01/2018 10:22 AM EDT Narrative Resulting Agency Comment Spec In Lab L Timothy Pandey MD CHEMISTRY ORDERABLES Performing Organization Address City/[facility]/ZIP Co de Phone Number [facility] [place] [address] * CRP, acute inflammation (11/01/2018 9:52 AM EDT) [facility] Signature C-Reactive Protein 0.2 <=4.9 mg/L [facility] Blood specimen (specimen) 11/01/2018 9:52 AM EDT 11/01/2018 10:22 AM EDT Narrative Resulting Agency Comment Spec In Lab L Timothy Pandey MD CHEMISTRY ORDERABLES [facility] [place] [address] documented in this encounter Visit Diagnoses Diagnosis Crohn's disease with complication, unspecified gastrointestinal tract location Crohn's disease of ileum with other complication Crohn's disease with complication, unspecified gastrointestinal tract location documented in this encounter Care Teams Vocational Training Teacher Relationship Specialty Start Date End Date Irwin Gonsalez DO [address] [place] [address] PCP - General 05/01/11 documented as of this encounter
--- OUTSIDE RECORDS SUMMARY | 2024-03-10 01:59 | XMS_ITS | Encounter Summary ---
[place] [address] Care Team Providers Care Undergraduate Advisor Name Role Phone Irwin Gonsalez DO Primary Care Provider Encounter Details Date Type Department Care Team (Late st Contact Info) Description 01/31/2019 Telephone [place] [phone] Michelle Murcia Social History Tobacco Use Types [...] * Telephone Encounter - Michelle Murcia - 01/31/2019 9:49 AM EST Images from the original note were not included. RE: pls call pt re: getting labs same day as MRE 02/01 Received: Today Message Contents Kacey Borrego, RN Michelle Murcia ?? Hi Michelle, Could you please try once more today to reach him? Thanks, Kacey Left [facility] for pt asking him to have his labs done tomorrow while he is here documented in this encounter Plan of Treatment Upcoming Encounters Date Type Department Care Team (Latest Contact Info) Description 04/01/2024 12:35 PM EST Hospital Encounter Main [place] [phone] Apurva Vivas MD [facility] [place] [address] 04/01/2024 12:35 PM EST - 04/01/2024 2:17 PM EST Surgery [place] [phone] Apurva Vivas MD [facility] [place] [address] ANORECTAL EXAM, REQUIRING ANESTHESIA, DIAGNOSTIC (WRVU 1.8) 04/26/2024 3:00 PM EST Office [place] [phone] Apurva Vivas MD [facility] [address] [place] [address] Scheduled Procedures Name Priority Associated Diagnoses Date/Ti [...] on filedocumented in this encounter Care Teams Undergraduate Advisor Relationship Specialty Start Date End Date Irwin Gonsalez DO [address] [place] [address] PCP - General 05/01/11 documented as of this encounter
--- OUTSIDE RECORDS SUMMARY | 2024-03-10 01:59 | XMS_ITS | Encounter Summary ---
Author Organization [facility] [place] [address] Care Team Providers Care Watch Band Assembler Name Role Phone Irwin Gonsalez DO Primary Care Provider Reason for Referral * Diagnostic Test (Routine) - Closed Specialty Diagnoses / Procedures Referred By Contac t Referred To Contact Radiology Diagnoses Crohn's disease with complication, unspecified gastrointestinal tract location Procedures MRI Enterography wwo Contrast Page Damico MD [facility] [address] INTERNAL MEDICINE [place], [place] [id number] [place] [phone] Referral ID Status Reason Start Date Expiration Date V isits Requested Visits Authorized [id number] Closed Specialty Service Requested 01/19/2019 03/19/2019 1 1 Reason for Visit * Diagnostic Test (Routine) - Closed Specialty Diagnoses / Procedures Referred By Contac t Referred To Contact Radiology Diagnoses Crohn's disease with complication, unspecified gastrointestinal tract location Procedures MRI Enterography wwo Contrast Page Damico MD [facility] [address] [place] [address] [place] [address] Referral ID Status Reason Start Date Expiration Date V isits Requested Visits Authorized [id number] Closed Specialty Service Requested 01/19/2019 03/19/2019 1 1 Encounter Details Date Type Department Care Team (Latest Contact Info) Description 02/25/2019 1:44 PM EST - 02/25/2019 11:59 PM EST Hospital [place] [phone] Ramonita Pandey MD [facility] [place] [address] Crohn's disease with complication, unspecified gastrointestinal tract location Discharge Disposition: Home Social History Tobacco Use [...] Sig Dispensed Refills Start Date End Date acetaminophen (TYLENOL) 325 mg Tablet Take 2 tablets by mouth every 4 hours as needed for Pain. 30 tablet 1 05/23/2016 alfuzosin (UROXATRAL) 10 mg Tablet Sustained Release 24 hr TAKE ONE TABLET BY MOUTH EVERY DAY 12 11/22/2015 multivitamin (THERAGRAN) Tablet Take 1 tablet by mouth daily. esomeprazole (NEXIUM) 20 mg capsule Take 20 mg by mouth every morning (before breakfast). azaTHIOprine (IMURAN) 50 mg TabletIndications:Crohn 's disease with fistula, unspecified gastrointestinal tract location TAKE 5 TABLETS BY MOUTH ONCE DAILY 150 tablet 1 01/26/2019 04/11/2019 Adalimumab 40 mg/0.8 mL Pen Injector Kit Inject 0.8 mLs subcutaneously every 14 days. 2 Pen 5 12/27/2018 05/17/2019 documented as of this encounter Plan of Treatment Upcoming Encounters Date Type Department Care Team (Latest Contact Info) Description 04/01/2024 12:35 PM EST Hospital Encounter [place] [phone] Apurva Vivas MD [facility] [place] [address] 04/01/2024 12:35 PM EST - 04/01/2024 2:17 PM EST Surgery [place] [address] Apurva Vivas MD [facility] [place] [address] ANORECTAL EXAM, REQUIRING ANESTHESIA, DIAGNOSTIC (WRVU 1.8) 04/26/2024 3:00 PM EST Office Visit [place] [address] Apurva Vivas MD [facility] [place] [address] Scheduled Procedures Name Priority Associated Diagnoses Date/Ti [...] PM EDT) Perri Hernandez, [facility] Note: Patient's specific desired [...] Name Priority Date/Time Associated Diagnosis Comments MRI ENTEROGRAPHY WITH/WO CONTRAST Routine 02/25/2019 4:09 PM EST Crohn's disease with complication, unspecified gastrointestinal tract location documented in this encounter Results * MRI Enterography wwo Contrast (02/25/2019 4:09 PM EST) Anatomical Region Laterality Modality Abdomen Magnetic Resonan ce Impressions 02/28/2019 11:51 AM EST 1. ??No sites of active disease identified. 2. ??Status post prior ileocolonic resection with widely patent anastomosis. 3. ??Prior perirectal fistula is not included in the fvfsm-xs-ghwl on today's examination. I have personally reviewed the image(s) and the resident's interpretation and agree with the findings, Roxana Moran at 02/28/2019 11:51 AM Thank you for letting us participate in the care of this patient. For questions regarding this report, please contact the number below. ? Narrative 02/28/2019 11:51 AM EST EXAMINATION: MRI [...] perirectal fistula is not included in the qzrme-cw-xjcs on today's examination. Extra-intestinal findings: No relevant [...] visualized perirectal fistula is not included inthe obnjx-xu-ttdy on today's examination. Extra-intestinal findings: No relevant [...] perirectal fistula is not included in the rgvsd-ff-acgm ontoday's examination. I have personally reviewed the image(s) and the resident's interpretationand agree with the findings, Roxana Moran at 02/28/2019 11:51 AM Thank you for letting us participate in the care of this patient. Forquestions regarding this report, please contact the number below. Electronically signed by: Roxana Moran [facility] [place] ([phone]),at 02/28/2019 11:51 AM L Timothy Pandey MD IMG MRI ORDERABLES documented in this encounter Visit Diagnoses Diagnosis Crohn's disease with complication, unspecified gastrointestinal tract location documented in this encounter Administered Medications Inactive Administered Medications - up to 3 most recent administrations Medication Order MAR Action Action Date Dose Rate Site gadoterate meglumine (DOTAREM) 0.5 mmol/mL (376.9 mg/mL) injection 0-100 mL 0-100 mL, Intravenous, ONCE PRN, 1 dose, Starting on Thu02/25/19 at 1543, Until Thu02/25/19 at 1623, Per Protocol, Radiology Contrast, Routine Given 02/25/2019 4:23 PM EST 22 mLs glucagon (human recombinant) 1 mg injection SolR 1 dose, Starting on Thu02/25/19 at 1541, Until Thu02/25/19 at 1557, SONIYA ADAME: cabinet override glucagon (human recombinant) injection SolR 0.5 mg 0.5 mg, Intramuscular, ONCE, 1 dose, On Thu02/25/19 at 1600, Radiology Protocol Medication, Routine Given 02/25/2019 3:57 PM EST 0.5 mg documented in this encounter Care Teams Watch Band Assembler Relationship Specialty Start Date End Date Irwin Gosnalez DO [address] [place] [address] [address] [place] [address] PCP - General 05/01/11 documented as of this encounter
--- OUTSIDE RECORDS SUMMARY | 2024-03-10 01:59 | XMS_ITS | Encounter Summary ---
Author Organization [facility] [place] [address] Care Team Providers Care Remote Ruby On Rails Developer Name Role Phone Irwin Gonsalez DO Primary Care Provider [phone] Reason for Visit * Reason Comments Medication Management Encounter Details Date Type Department Care Team (Late st Contact Info) Description 01/24/2019 Specialty [place] [phone] Ericka Abreu RPH Social History Tobacco Use [...] Progress Notes * Ericka Abreu RPH - 01/24/2019 10:12 AM EST Clinical Management Plan: Refill Specialty Pharmacy Consultation; Ericka Abreu RPH Comprehensive Medication Management (CMM) Igor Woodruff [...] Provider: plan sponsor pharmacist Visit Type: [facility] Follow-up Method of Contact: by telephone Cognitive Ability: good Cognitive Impairment Status Verified this Year: no Allergies and Drug intolerance: No Known Allergies Medication Reconciliation Discrepancies (compared to [facility] med list) -no New medications: no New medical conditions: no [...] at the appointment and that [facility] is providing recommendations (summary located at top of note) for provider review and follow up. Ericka Abreu RPH 01/24/19 10:13 AM documented in this encounter Plan of Treatment Upcoming Encounters Date Type Department Care Team (Latest Contact Info) Description 04/01/2024 12:35 PM EST Hospital Encounter [place] [address] Apurva Vivas MD [facility] [place] [address] 04/01/2024 12:35 PM EST - 04/01/2024 2:17 PM EST Surgery [place] [phone] Apurva Vivas MD [facility] [place] [address] ANORECTAL EXAM, REQUIRING ANESTHESIA, DIAGNOSTIC (WRVU 1.8) 04/26/2024 3:00 PM EST Office Visit General Surgery at [facility] [place] [place] [address] Apurva Vivas MD [facility] [place] [address] Scheduled Procedures Name Priority Associated Diagnoses Date/Ti ar ANORECTAL EXAM, REQUIRING ANESTHESIA, DIAGNOSTIC (WRVU 1.8) [...] on filedocumented in this encounter Care Teams Remote Ruby On Rails Developer Relationship Specialty Start Date End Date Irwin Gonsalez DO [address] [place] [address] PCP - General 05/01/11 documented as of this encounter
--- OUTSIDE RECORDS SUMMARY | 2024-03-10 01:59 | XMS_ITS | Encounter Summary ---
Author Organization [facility] [place] [address] Care Team Providers Care Program Advisor Name Role Phone Irwin Gonsalez DO Primary Care Provider Encounter Details Date Type Department Care Team (Late st Contact Info) Description 11/01/2018 Orders [place] [phone] Shannan Barnard, RN Crohn's disease with complication, unspecified gastrointestinal tract location Social History Tobacco [...] PM EST Hospital Encounter [place] [phone] Apurva Vivas MD [facility] [place] [address] 04/01/2024 12:35 PM EST - 04/01/2024 2:17 PM EST Surgery [place] [address] Apurva Vivas MD [facility] [place] [address] ANORECTAL EXAM, REQUIRING ANESTHESIA, DIAGNOSTIC (WRVU 1.8) 04/26/2024 3:00 PM EST Office [place] [phone] Apurva Vivas MD [facility] [place] [address] Scheduled Procedures Name Priority Associated Diagnoses Date/Ti [...] location documented in this encounter Care Teams Program Advisor Relationship Specialty Start Date End Date Irwin Gonsalez DO [address] [place] [address] PCP - General 05/01/11 documented as of this encounter
--- OUTSIDE RECORDS SUMMARY | 2024-03-10 01:59 | XMS_ITS | Encounter Summary ---
[place] [address] Care Team Providers Care Funeral Greeter Name Role Phone Irwin Gonsalez DO Primary Care Provider Encounter Details Date Type Department Care Team (Late st Contact Info) Description 12/27/2018 [place] [address] Delisa Barrientos Social History Tobacco Use Types Packs/Day Years [...] encounter Miscellaneous Notes * Telephone Encounter - Delisa Barrientos - 12/27/2018 11:37 AM EDT Clinical Management Plan: Refill Specialty Pharmacy Consultation; Delisa Barrientos Comprehensive Medication Management (CMM) Igor Sherine Monzonjoshua [...] Medication Reconciliation Discrepancies (compared to [facility] med list) No New medications: No New medical conditions: No New allergies: No Adherence: Any missed doses? No Are you experiencing any side effects from your medications? No Patient understands no changes to current drug regimen were made.. Delisa Barrientos 12/27/18 11:37 AM documented in this encounter Plan of Treatment Upcoming Encounters Date Type Department Care Team (Latest Contact Info) Description 04/01/2024 12:35 PM EST Hospital Encounter [place] [address] Apurva Vivas MD [facility] [place] [address] 04/01/2024 12:35 PM EST - 04/01/2024 2:17 PM EST Surgery [place] [address] Apurva Vivas MD [facility] [place] [place] [address] ANORECTAL EXAM, REQUIRING ANESTHESIA, DIAGNOSTIC (WRVU 1.8) 04/26/2024 3:00 PM EST Office [place] [address] Apurva Vivas MD [facility] [place] [place] [address] Scheduled Procedures Name Priority Associated Diagnoses Date/Ti [...] on filedocumented in this encounter Care Teams Funeral Greeter Relationship Specialty Start Date End Date Irwin Gonsalez DO [address] [place] [address] PCP - General 05/01/11 documented as of this encounter
--- OUTSIDE RECORDS SUMMARY | 2024-03-10 01:59 | XMS_ITS | Encounter Summary ---
[place] [address] Care Team Providers Care Supervisor Train Operations Name Role Phone Irwin Gonsalez DO Primary Care Provider [phone] Encounter Details Date Type Department Care Team (Late st Contact Info) Description 06/09/2018 Specialty [place] [address] Power Billingsley [facility] Social History Tobacco Use Types Packs/Day Years [...] as of this encounter Progress Notes * Power Billingsley RPH - 06/09/2018 10:20 AM EDT Specialty Pharmacy Consultation; Power Billingsley RPH Comprehensive Medication Management (CMM) Igor Basurto Mayitorobertjoshua Diagnosis: Crohn's Disease Therapy Start Date: 04/25/16 Contact in person or via telephone: telephone Mr. Igor Woodruff is a 43 y.o. (1975) male who was contacted in regard to specialty medication. Spoke with patient regarding HUMIRA. A review of the medication therapy was performed. The medication was refilled as scheduled, and all medication related questions and concerns were addressed. The specialty pharmacy staff will follow up with the patient 5-7 days prior to next refill. Is the patient willing to proceed with the Clinical Assessment? Yes Summary and Recommendations: Provided follow-up consultation with Igor on Humira. He did not require review of drug information, warnings, side effects as he has been using the Humria for a length of time successfully. He has no apparent side effects, is finding it helpful, and may even be gaining weight. He uses the SureClick device without problems, injecting at room temp and rotating sites appropriately. Igor is adherent to the regimen and is due on 06/14/18, however he is out of refills so pharmacy has pended refill request on this date. Hid BMs have been reduced from 4-5 daily to 2-3 daily. Igor rates his quality of life as a 8 to 9 on a scale of 1-10. Clinic follow-up needed: yes - Igor will have FUV with clinic Allergies and Drug intolerance: No Known Allergies Special Dietary or Hydration Requirements: hx low oxalate diet There is no height or weight on file to calculate BMI. Medication Reconciliation Discrepancies (compared to [facility] med list) none Medication Adherence Patient reported X missed doses in the last month: 0 Any gaps in refill history greater than 2 weeks in the last 3 months: no Demonstrates understanding of importance of adherence: yes Reliability of informant: reliable Provider-estimated medication adherence level: 90-100% Adherence tools used: calendar Support network for adherence: family member Confirmed plan for next specialty medication refill: delivery by pharmacy Medication List: Current Outpatient Medications Medication Sig Dispense Refill ??? azaTHIOprine (IMURAN) 50 mg Tablet TAKE 5 TABLETS BY MOUTH ONCE DAILY 150 tablet 5 ??? Adalimumab 40 mg/0.8 mL Pen Injector Kit Inject 0.8 mLs subcutaneously every 14 days. 2 Pen 1 ??? acetaminophen (TYLENOL) 325 mg Tablet [...] and missed doses discussed, pharmacy contact information discussed Drug Medication Management Summary Topics discussed: doses and administration discussed, safe handling, storage, and disposal discussed, possible adverse effects and management discussed, possible drug and prescription drug interactions discussed, possible drug and OTC drug and food interactions discussed, lab monitoring and follow-up discussed, therapeutic rationale discussed, cost of medications and cost implications discussed, adherence and missed doses discussed, pharmacy contact information discussed Number of adverse drug events identified: 0 Time spent: 16-30 min Treatment Outcomes 06/09/2018 Disease progression: Stable Effectiveness of therapy, reported improvements: Improved Treatment Goals: Have partially been met Patient Overall Status: Improved Reviewed in detail with patient: Dose appropriateness [...] Amount: $5 Day Supply: 28 Date Needed: 06/14/18 Copay assistance required: yes - OPUS coupon card Physical Assessment: Functional limitations identified: no Is patient a fall risk: no Cognitive limitations identified such as orientation, memory, reasoning or judgement: no Other: no Social Assessment: Does the patient have a primary animal care specialist? no Patient has emergency contact on file: Yes Does patient need referral to pediatric social worker: No Does patient need referral to advocacy group: Physical and Home Health Assessment: Is the patient able to store their medication as directed? No Is the patient in a safe home environment? Yes Do you have a support network? Yes Reviewed potential home safety hazards: Yes Therapy Assessment: Appropriate Therapy: Yes Current Medication Dosing/Route/Frequency: Inject the contents of 1 pen (40mg) subcutaneously every14 days Effective: yes Current GI-related Symptoms/Pain: no Recent GI Flaring: no Recent Systemic Corticosteroid Use: no Relapsing/Remitting Factors: none identified Patient experienced change in condition that affects treatment: no Patient experienced side effects from your medication no Recent Infections: no Utilizing appropriate injection technique: yes - room temp, long experience with SureClick device Rotation of Injection Sites: yes Room Temperature Medication at Time of Injection: [...] action plan to reach the goal: n/a Additional care/services needed: no Educational information or adherence tools provided: Yes Additional equipment/supplies required: no Care Plan Reviewed and Approved by both Pharmacist and Patient: Yes Did Care Plan Change? No Informed patient of specialty pharmacy services: Yes -Patient received welcome packet: Yes Date Received: 05/23/16 Delivery Method: shipped with [employer] -Patient returned signed Rights & Responsibilities: Yes Date Received: 11/20/17 Delivery Method: shipped with Humira in October and returned via mail -Patient is aware a licensed pharmacist [...] Yes Patient Satisfaction with Therapy: yes - pt satisfied with reduction in sx and overall health Patient understands no changes to current drug regimen were made at the appointment and that [facility] is[facility] recommendations (summary located at top of note) for provider review and follow up. Power Billingsley RPH 06/09/18 10:34 AM documented in this encounter Plan of Treatment Upcoming Encounters Date Type Department Care Team (Latest Contact Info) Description 04/01/2024 12:35 PM EST Hospital Encounter [place] [address] Apurva Vivas MD [facility] [place] [address] 04/01/2024 12:35 PM EST - 04/01/2024 2:17 PM EST Surgery [place] [address] Apurva Vivas MD [facility] [place] [address] ANORECTAL EXAM, REQUIRING ANESTHESIA, DIAGNOSTIC (WRVU 1.8) 04/26/2024 3:00 PM EST Office [place] [address] Apurva Vivas MD [facility] [place] [address] Scheduled Procedures Name Priority Associated Diagnoses Date/Ti [...] PM EDT) No Perri Sousa, [facility] Note: Patient's specific desired goal: Igor would [...] on filedocumented in this encounter Care Teams Supervisor Train Operations Relationship Specialty Start Date End Date Irwin Gonsalez DO [address] [place] [address] PCP - General 05/01/11 documented as of this encounter
--- OUTSIDE RECORDS SUMMARY | 2024-03-10 01:59 | XMS_ITS | Encounter Summary ---
Author Organization [facility] Address [facility] [place] [address] Care Team Providers Care Bilingual Branch Manager Name Role Phone Irwin Gonsalez DO Primary Care Provider [phone] Reason for Visit * Reason Onset Date Comments Prior Authorization 12/21/2018 Encounter Details Date Type Department Care Team (Late st Contact Info) Description 12/21/2018 Telephone Dermatology at [facility] [address] [place] [address] Erasmo Barrientos MD [facility] [place] [address] Prior Authorization Social History Tobacco Use Types Packs/Day Years [...] * Telephone Encounter - Nikole Brooks - 01/04/2019 8:27 AM EDT Patient has been APPROVED for Botox injections for hyperhidrosis from 11/29/2018 to 01/01/2020. 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 . Status: Form completed and faxed to insurance [facility] Response: TBD * Telephone Encounter - Zainab Sommer - 12/21/2018 10:59 AM EDT Received call from Igor Woodruff stating that he would like to have Botox done for the hyperhydrosis. Patient understands that he needs a prior authorization done first, insurance is correct in the system documented in this encounter Plan of Treatment Upcoming Encounters Date Type Department Care Team (Latest Contact Info) Description 04/01/2024 12:35 PM EST Hospital Encounter [place] [phone] Apurva Vivas MD [facility] [place] [address] 04/01/2024 12:35 PM EST - 04/01/2024 2:17 PM EST Surgery [place] [phone] Apurva Vivas MD [facility] [place] [address] ANORECTAL EXAM, REQUIRING ANESTHESIA, DIAGNOSTIC (WRVU 1.8) 04/26/2024 3:00 PM EST Office [place] [phone] pAurva Vivas MD [facility] [place] [address] Scheduled Procedures Name Priority Associated Diagnoses Date/Ti [...] on filedocumented in this encounter Care Teams Bilingual Branch Manager Relationship Specialty Start Date End Date Irwin Gonsalez DO [address] [place] [address] PCP - General 05/01/11 documented as of this encounter
--- OUTSIDE RECORDS SUMMARY | 2024-03-10 01:59 | XMS_ITS | Encounter Summary ---
Author Organization [facility] Address [facility] [place] [address] Care Team Providers Care Human Resources Clerk Name Role Phone Irwin Gonsalez DO Primary Care Provider [phone] Encounter Details Date Type Department Care Team (Late st Contact Info) Description 06/09/2018 Refill [place] [phone] Ramonita Pandey MD [facility] [place] [place] [address] Social History Tobacco Use Types Packs/Day Years [...] PM EST Hospital Encounter [place] [phone] Apurva Vivas MD [facility] [place] [place] [address] 04/01/2024 12:35 PM EST - 04/01/2024 2:17 PM EST Surgery [place] [address] Apurva Vivas MD [facility] [place] [place] [address] ANORECTAL EXAM, REQUIRING ANESTHESIA, DIAGNOSTIC (WRVU 1.8) 04/26/2024 3:00 PM EST Office Visit [place] [phone] Apurva Vivas MD [facility] [place] [place] [address] Scheduled Procedures Name Priority Associated Diagnoses Date/Ti [...] Perri Sousa, [facility] Note: Patient's specific desired goal: Igor would [...] on filedocumented in this encounter Care Teams Human Resources Clerk Relationship Specialty Start Date End Date Irwin Gonsalez DO [address] [place] [address] [address] [place] [address] PCP - General 05/01/11 documented as of this encounter
--- OUTSIDE RECORDS SUMMARY | 2024-03-10 01:59 | XMS_ITS | Encounter Summary ---
[place] [address] Care Team Providers Care Franchise Sales Manager Name Role Phone Irwin Gonsalez DO Primary Care Provider Reason for Visit * Reason Comments Medication Management Encounter Details Date Type Department Care Team (Late st Contact Info) Description 08/27/2018 Specialty [place] [phone] Deborah Gannon Sunday Social History Tobacco Use Types Packs/Day [...] as of this encounter Progress Notes * Deborah Gannon RPH - 08/27/2018 4:24 PM EDT Clinical Management Plan: Refill Specialty Pharmacy Consultation; Deborah Gannon RPH Comprehensive Medication Management (CMM) Igor Sherine [...] Provider: plan sponsor pharmacist Visit Type: [facility] Follow-up Method of Contact: by telephone Cognitive Ability: good Cognitive Impairment Status Verified this Year: no Allergies and Drug intolerance: No Known Allergies Medication Reconciliation Discrepancies (compared to [facility] med list) - None New medications: no New medical conditions: no [...] were made at the appointment and that [facility] is providing recommendations (summary located at top of note) for provider review and follow up. Deborah Gannon RPH 08/27/18 4:25 PM documented in this encounter Plan of Treatment Upcoming Encounters Date Type Department Care Team (Latest Contact Info) Description 04/01/2024 12:35 PM EST Hospital Encounter [place] [address] Apurva Vivas MD [facility] [place] [address] 04/01/2024 12:35 PM EST - 04/01/2024 2:17 PM EST [place] [address] Apurva Vivas MD [facility] [place] [address] ANORECTAL EXAM, REQUIRING ANESTHESIA, DIAGNOSTIC (WRVU 1.8) 04/26/2024 3:00 PM EST Office Visit General Surgery at [facility] [place] [address] Apurva Vivas MD [facility] [place] [address] Scheduled Procedures Name Priority Associated Diagnoses Date/Ti [...] 017 9:39 PM EDT) No Perri Sousa, [facility] Note: Patient's [...] on filedocumented in this encounter Care Teams Franchise Sales Manager Relationship Specialty Start Date End Date Irwin Gonsalez DO [address] [place] [address] [address] [place] [address] PCP - General 05/01/11 documented as of this encounter
--- OUTSIDE RECORDS SUMMARY | 2024-03-10 01:59 | XMS_ITS | Encounter Summary ---
[place] [address] Care Team Providers Care Building Energy Retrofit Technician Name Role Phone Irwin Gonsalez DO Primary Care Provider Reason for Visit * Reason Comments Medication Refill Encounter Details Date Type Department Care Team (Late st Contact Info) Description 01/18/2018 Specialty [place] [phone] Swetha York Sunday Social History Tobacco Use Types Packs/Day [...] Progress Notes * Swetha Strickland RPH - 01/18/2018 5:15 PM EST Clinical Management Plan: Refill Specialty Pharmacy Consultation; Swetha Strickland Sunday Comprehensive Medication Management (CMM) Igor Basurto Mayitorobertjoshua Mr. Igor Woodruff is a 42 y.o. (1975) male who called in a refill for their specialty prescription, Humira , before a refill reminder was needed from the [facility]. The medication was refilled on 01/18/2018 for a 28 day supply for $5 copay. Adherence: Gaps in fill history: none Was a change made to the Care Plan: no If yes, should the medication be held: No The specialty pharmacy staff will follow up with the patient 7 days prior to next refill for reminder if needed. Swetha Strickland RPH 01/18/18 5:16 PM documented in this encounter Plan of Treatment Upcoming Encounters Date Type Department Care Team (Latest Contact Info) Description 04/01/2024 12:35 PM EST Hospital Encounter [place] [phone] Apurva Vivas MD [facility] [place] [address] 04/01/2024 12:35 PM EST - 04/01/2024 2:17 PM EST Surgery [place] [address] Apurva Vivas MD [facility] [place] [address] ANORECTAL EXAM, REQUIRING ANESTHESIA, DIAGNOSTIC (WRVU 1.8) 04/26/2024 3:00 PM EST Office [place] [phone] Apurva Vivas MD [facility] [place] [address] Scheduled Procedures Name Priority Associated Diagnoses Date/Ti [...] on filedocumented in this encounter Care Teams Building Energy Retrofit Technician Relationship Specialty Start Date End Date Irwin Gonsalez DO [address] [place] [address] PCP - General 05/01/11 documented as of this encounter
--- OUTSIDE RECORDS SUMMARY | 2024-03-10 01:59 | XMS_ITS | Encounter Summary ---
Author Organization [facility] [place] [address] Care Team Providers Care Systems Mechanic Name Role Phone Irwin Gonsalez DO Primary Care Provider Reason for Visit * Reason Comments Medication Management Encounter Details Date Type Department Care Team (Late st Contact Info) Description 03/21/2019 Specialty [place] [phone] Ericka Abreu RPH Social History Tobacco Use [...] Progress Notes * Ericka Abreu RPH - 03/21/2019 2:07 PM EST Clinical Management Plan: Refill Specialty Pharmacy Consultation; Ericka Abreu RPH Comprehensive Medication Management (CMM) Igor Sherine Kacy Mr. Igor Woodruff is a 44 y.o. [...] beneficiary Provider: plan sponsor pharmacist [place] [facility] [place] Method of Contact: by telephone Cognitive Ability: good Cognitive Impairment Status Verified this Year: no Allergies and Drug intolerance: No Known Allergies Medication Reconciliation Discrepancies (compared to [facility] med list) -no New medications: no New [...] a day. Will contact provider regarding this issue. Pt understands no changes to current drug regimen were made at the appointment and that [facility] is providing recommendations (summary located at top of note) for provider review and follow up. Ericka Abreu RPH 03/21/19 2:09 PM documented in this encounter Plan of Treatment Upcoming Encounters Date Type Department Care Team (Latest Contact Info) Description 04/01/2024 12:35 PM EST Hospital Encounter [place] [address] Apurva Vivas MD [facility] [place] [address] 04/01/2024 12:35 PM EST - 04/01/2024 2:17 PM EST Surgery [place] [address] Apurva Vivas MD [facility] [place] [address] ANORECTAL EXAM, REQUIRING ANESTHESIA, DIAGNOSTIC (WRVU 1.8) 04/26/2024 3:00 PM EST Office [place] [address] Apurva Vivas MD [facility] [place] [address] Scheduled Procedures Name Priority Associated Diagnoses Date/Ti [...] filedocumented in this encounter Care Teams Systems Mechanic Relationship Specialty Start Date End Date Irwin Gonsalez DO [address] [place] [address] PCP - General 05/01/11 documented as of this encounter
--- OUTSIDE RECORDS SUMMARY | 2024-03-10 01:59 | XMS_ITS | Encounter Summary ---
[place] [address] Care Team Providers Care Psychological Stress Evaluator Name Role Phone Irwin Gonsalez DO Primary Care Provider Reason for Visit * Reason Comments Medication Refill Encounter Details Date Type Department Care Team (Late st Contact Info) Description 01/26/2019 Refill [place] [phone] Ramonita Pandey MD [facility] [place] [place] [address] Crohn's disease with fistula, unspecified gastrointestinal tract [...] PM EST Hospital Encounter [place] [phone] Apurva Vivas MD [facility] [place] [address] 04/01/2024 12:35 PM EST - 04/01/2024 2:17 PM EST Surgery [place] [address] Apurva Vivas MD [facility] [place] [address] ANORECTAL EXAM, REQUIRING ANESTHESIA, DIAGNOSTIC (WRVU 1.8) 04/26/2024 3:00 PM EST Office Visit [place] [phone] Apurva Vivas MD [facility] [place] [address] Scheduled Procedures Name Priority Associated Diagnoses Date/Ti me ANORECTAL EXAM, REQUIRING ANESTHESIA, DIAGNOSTIC (WRVU 1.8) perianal crohns disease w/fistula 04/01/2024 12:35 PM EST SURGICAL TREATMENT OF ANAL FISTULA COMPLEX OR MULTIPLE W\WO SETON PLACEMENT (WRVU 6.39) perianal crohns disease w/fistula 04/01/2024 12:35 PM EST documented as of this encounter Goals Goal Patient Goal Type Associated Problems Recent Progress Patient-Stated? Author [facility] Medication Compliance and Understanding Patient Facing Action Plan On track( 017 9:39 PM EDT) Perri Hernandez, [facility] Note: Patient's specific [...] location documented in this encounter Care Teams Psychological Stress Evaluator Relationship Specialty Start Date End Date Irwin Gonsalez DO [address] [place], [place] [address] [place] [address] PCP - General 05/01/11 documented as of this encounter
--- OUTSIDE RECORDS SUMMARY | 2024-03-10 01:59 | XMS_ITS | Encounter Summary ---
[place] [address] Care Team Providers Care Tow Truck Driver Name Role Phone Irwin Gonsalez DO Primary Care Provider Reason for Visit * Reason Comments Medication Management Encounter Details Date Type Department Care Team (Late st Contact Info) Description 04/13/2018 Specialty [place] [phone] Karishma Muir [facility] Social History Tobacco Use Types [...] this encounter Progress Notes * Karishma Noel [facility] - 04/13/2018 4:27 PM EST Clinical Management Plan: Refill of Humira Specialty Pharmacy Consultation; Karishma Noel [facility] Comprehensive Medication Management (CMM) Igor Sherine Mayitorobertjoshua Mr. Igor Woodruff is a 43 y.o. (1975) male who was contacted in regard to a specialty medication refill reminder. Spoke with patient regarding Humira. A review of the medication therapy wasperformed. Patient's insurance is requiring an override in order to be filled through our pharmacy which we are working on obtaining. Once this is done (expected to go through fine tomorrow 04/14), the Humira will be refilled and mailed out to Igor. All medication related questions and concerns were addressed. The specialty pharmacy staff will follow up with the patient 5-7 days prior to next refill. Was a change made to the Care Plan: no Assessment and Recommendations: Title Type of Medication Management: chronic disease management, targeted medication review Referred By: provider Recipient: beneficiary Provider: plan sponsor pharmacist Visit Type: [facility] Follow-up Method of Contact: by telephone Cognitive Ability: good Cognitive Impairment Status Verified this Year: no Allergies and Drug intolerance: No Known Allergies Medication Reconciliation Discrepancies (compared to [facility] med list) -none New medications: no New [...] made at the appointment and that [facility] is providing recommendations (summary located at top of note) for provider review and follow up. Karishma Noel RPH 04/13/18 4:27 PM documented in this encounter Plan of Treatment Upcoming Encounters Date Type Department Care Team (Latest Contact Info) Description 04/01/2024 12:35 PM EST Hospital Encounter [place] [address] Apurva Vivas MD [facility] [place] [address] 04/01/2024 12:35 PM EST - 04/01/2024 2:17 PM EST Surgery [place] [address] Apurva Vivas MD [facility] [place] [place] [address] ANORECTAL EXAM, REQUIRING ANESTHESIA, DIAGNOSTIC (WRVU 1.8) 04/26/2024 3:00 PM EST Office [place] [phone] Apurva Vivas MD [facility] [place] [place] [address] Scheduled Procedures Name Priority Associated Diagnoses Date/Ti [...] on filedocumented in this encounter Care Teams Tow Truck Driver Relationship Specialty Start Date End Date Irwin Gonsalez DO [address] [place] [address] PCP - General 05/01/11 documented as of this encounter
--- OUTSIDE RECORDS SUMMARY | 2024-03-10 02:00 | XMS_ITS | Encounter Summary ---
[place] [address] Care Team Providers Care Pararescue Craftsman Name Role Phone Irwin Gonsalez DO Primary Care Provider Reason for Visit * Reason Onset Date Comments Medication Refill 08/25/2016 Encounter Details Date Type Department Care Team (Late st Contact Info) Description 08/25/2016 [place] [phone] Power [facility], [facility] Medication Refill Social History Tobacco Use Types Packs/Day Years Used Date Smoking Tobacco: Never Alcohol Use Standard Drinks/Week Comments Yes 1 (1 standard drink = 0.6 oz pur e alcohol) Sex and Gender Information Value Date Recorded Sex Assigned at Male 06/08/2023 4:49 PM EDT Gender Identity Not on file Sexual Orientation Not on file documented as of this encounter Miscellaneous Notes * Telephone Encounter - Power Billingsley [facility] - 08/25/2016 4:30 PM EDT [facility] - Refill Follow Up Diagnosis: Crohn's Medication: Humira Directions: 40mg (contents of one pen) subcutaneously every 14 days Appropriate therapy: yes New medications: no New medical conditions: pain with Humira injections (per ed-h) New allergies: no Adherence: Appears in adherence with regimen based on refill hx Patient Questions/Concerns: Spoke with family member who did not offer any additional information. Pain at injection site noted in medical record. Clinic recommended icing area prior to injection. Pharmacy defers to G.I. on this issue. Next follow-up: At time of next refill - approx 09/24/16 documented in this encounter Plan of Treatment Upcoming Encounters Date Type Department Care Team (Latest Contact Info) Description 04/01/2024 12:35 PM EST Hospital Encounter [place] [address] Apurva Vivas MD [facility] [place] [address] 04/01/2024 12:35 PM EST - 04/01/2024 2:17 PM EST Surgery [place] [address] Apurva Vivas MD [facility] [place] [address] ANORECTAL EXAM, REQUIRING ANESTHESIA, DIAGNOSTIC (WRVU 1.8) 04/26/2024 3:00 PM EST Office Visit [place] [address] Apurva Vivas MD [facility] [place] [address] Scheduled Procedures Name Priority Associated Diagnoses Date/Ti me ANORECTAL EXAM, REQUIRING ANESTHESIA, DIAGNOSTIC (WRVU 1.8) perianal crohns disease w/fistula 04/01/2024 12:35 PM EST SURGICAL TREATMENT OF ANAL FISTULA COMPLEX OR MULTIPLE W\WO SETON PLACEMENT (WRVU 6.39) perianal crohns disease w/fistula 04/01/2024 12:35 PM EST documented as of this encounter Goals Goal Patient Goal Type Associated Problems Recent Progress Patient-Stated? Author [facility] Medication Compliance and Understanding Patient Facing Action Plan On track( 017 9:39 PM EDT) No Perri Sousa, [facility] Note: Patient's specific desired [...] on filedocumented in this encounter Care Teams Pararescue Craftsman Relationship Specialty Start Date End Date Irwin Gonsalez DO [address] [facility] [address] [facility] [address] [place] [address] PCP - General 05/01/11 documented as of this encounter
--- OUTSIDE RECORDS SUMMARY | 2024-03-10 02:00 | XMS_ITS | Encounter Summary ---
[place] [address] Care Team Providers Care Corporate Statistical Financial Analyst Name Role Phone Irwin Gonsalez DO Primary Care Provider [phone] Encounter Details Date Type Department Care Team (Late st Contact Info) Description 07/31/2017 Telephone [place] [phone] Mindy Chamberlain Social History Tobacco Use Types Packs/Day Years [...] encounter Miscellaneous Notes * Telephone Encounter - Mindy Chamberlain - 07/31/2017 4:38 PM EDT 07/31 4:15pm rcvd call from caller advising that pt will not be at appointment on 08/03- no presonal rep from on file. advised I am happy to acept any information provided but unalbe to disclose. lvm on home and cell #'s requesting rtn call- even if after hours to confirm cancelation. Advised [facility] probable opening. documented in this encounter Plan of Treatment Upcoming Encounters Date Type Department Care Team (Latest Contact Info) Description 04/01/2024 12:35 PM EST Hospital Encounter [place] [phone] Apurva Vivas MD [facility] [place] [address] 04/01/2024 12:35 PM EST - 04/01/2024 2:17 PM EST [place] [address]-1000 Apurva Vivas MD [facility] [place] [place] [address] ANORECTAL EXAM, REQUIRING ANESTHESIA, DIAGNOSTIC (WRVU 1.8) 04/26/2024 3:00 PM EST Office Visit [place] [phone] Apurva Vivas MD [facility] [place] [place] [address] Scheduled Procedures Name Priority Associated Diagnoses Date/Ti me ANORECTAL EXAM, REQUIRING ANESTHESIA, DIAGNOSTIC (WRVU 1.8) perianal crohns disease w/fistula 04/01/2024 12:35 PM EST SURGICAL TREATMENT OF ANAL FISTULA COMPLEX OR MULTIPLE W\WO SETON PLACEMENT (WRVU 6.39) perianal crohns disease w/fistula 04/01/2024 12:35 PM EST documented as of this encounter Goals Goal Patient Goal Type Associated Problems Recent Progress Patient-Stated? Author [facility] Medication Compliance and Understanding Patient Facing Action Plan On track( 017 9:39 PM EDT) Perri Hernandez, [facility] Note: Patient's specific desired goal: Igor [...] filedocumented in this encounter Care Teams Corporate Statistical Financial Analyst Relationship Specialty Start Date End Date Irwin Gonsalez DO [address] [place] [address] PCP - General 05/01/11 documented as of this encounter
--- OUTSIDE RECORDS SUMMARY | 2024-03-10 02:00 | XMS_ITS | Encounter Summary ---
Author Organization [facility] Address [facility] [place] [address] Care Team Providers Care C Consultant Name Role Phone Irwin Gonsalez DO Primary Care Provider [phone] Reason for Visit * Reason Comments Follow-up Encounter Details Date Type Department Care Team (Late st Contact Info) Description 10/19/2017 10:00 AM EDT Office Visit [place] [address] Ramonita Pandey MD [facility] [place] [place] [address] Crohn's disease of ileum with rectal bleeding Social History Tobacco Use Types Packs/Day Years [...] Sign Reading Time Taken Comments Blood Pressure 149/100 10/19/2017 10:20 AM EDT Pulse 88 10/19/2017 10:20 AM EDT Temperature - - Respiratory Rate - - Oxygen Saturation - - Inhaled Oxygen Concentration - - Weight 102.1 kg (225 lb) 10/19/2017 10:20 AM EDT Height 182.9 cm (6') 10/19/2017 10:20 AM EDT Body Mass Index 30.52 10/19/2017 10:20 AM EDT documented in this encounter Patient Instructions * Patient Instructions* Ramonita Pandey MD - 10/19/2017 10:00 AM EDT # Check labs today and then every 4 months locally # Will check Humira level and also azathioprine metabolites # Continue current medications # Check stool for C. Difficile and also fecal calprotectin - take requisition to [facility] and obtain specimen cups and equipment there. # Please have your flu shot when available in the fall. # Follow-up in out clinic in 4 months with Thi Salgado APRN and then with me in 8-10 months. documented in this encounter Progress Notes * Ramonita Pandey MD - 10/19/2017 10:00 AM EDT PROBLEM LIST ??? Crohn's ileitis ?? diagnosed [...] ??? GERD (gastroesophageal reflux disease) ? Subjective: Igor has Crohn's disease currently on Humira every other week and AZA 250 mg per day. He is not missing doses. Come to see me for the first times since February. We had planned to see each other in July. However, he missed that appointment. He has noticed more blood recently with bowel movements. He is having 4-5 stools times per day. Over the last 2 weeks, he was seeing blood every other day usually on tissue and clots in the toilet. He has not had perianal pain. Tolerating the seton without problems. Hadwondered if the seton was the cause of bleeding. Continues to drain daily. Bowel frequency slightlymore, but much worse than usual. He has had no focal pain around the anus despite persistent drainage from the seton. There is no abdominal pain, nausea, vomiting. There have been no fevers. Physical Exam Lab Results Component Value Date WBC 5.9 2017 RBC 4.92 2017 HGB 15.8 2017 HCT 42.6 2017 MCV 86.6 2017 MCH 32.1 2017 MCHC 37.1 (H) 2017 PLATELET 272 2017 RDWCV 13.2 2017 Lab Results Component Value Date ALT 68 (H) 2017 AST 34 2017 ALKPHOS 57 2017 BILITOT 1.0 2017 Lab Results Component Value Date CRP 0.2 2017 ASSESSMENT AND RECOMMENDATIONS: Patient has history of Crohn's ileitis with perianal disease. He has had 2 weeks of intermittent rectal bleeding and is concerned about a flare of his Crohn's disease. I think it is unlikely that hisCrohn's disease is flaring given that he had a normal colonoscopy just last January, and rectal bleeding would be an uncommon presentation for ileal Crohn's disease. With his history of perianal disease, this could be a source of rectal bleeding especially if it were exacerbated by his seton. Similarly, this may be related to hemorrhoids exacerbated by the seton. By his symptoms, there does not seem to be significant recurrence of his perianal abscess or fistulas. We discussed checking labs today as well as checking stool for fecal calprotectin and ruling out the unlikely possibility that this is C. difficile. We will submit stool samples to her [facility] in [place]. We will check his labs today including a adalimumab level with reflex antibody testing and thiopurine levels. Igor will call back if his symptoms worsen. I will have him see Thi Salgado in the clinic in 4months and me in approximately 8 months or sooner if symptoms worsen. We discussed the following recommendations that were printed out for the patient: # Check labs today and then every 4 months locally # Will check Humira level and also azathioprine metabolites # Continue current medications # Check stool for C. Difficile and also fecal calprotectin - take requisition to [facility] and obtain specimen cups and equipment there. # Please have your flu shot when available in the fall. # Follow-up in out clinic in 4 months with Thi Salgado APRN and then with me in 8-10 months. 20 min of this 30 min [id number] visit was spent counseling the patient in the issues outlined above. ?? Angelo Pandey MD [employer] Sheeterprivate branch exchange operator Section of Gastroenterology [place] [address] CC: Irwin Gonsalez DO [address] [place] [phone] documented in this encounter Plan of Treatment Upcoming Encounters Date Type Department Care Team (Latest Contact Info) Description 04/01/2024 12:35 PM EST Hospital Encounter [place] [address] Apurva Vivas MD [facility] DR GENERAL [place] [address] 04/01/2024 12:35 PM EST - 04/01/2024 2:17 PM EST Surgery Main [place] [address] Apurva Vivas MD [facility] [place] [address] ANORECTAL EXAM, REQUIRING ANESTHESIA, DIAGNOSTIC (WRVU 1.8) 04/26/2024 3:00 PM EST Office Visit [place] [phone] Apurva Vivas MD [facility] [place] [address] Scheduled Procedures Name Priority Associated Diagnoses Date/Ti [...] EDT) No Perri Sousa, [facility] Note: Patient's specific desired goal: Igor [...] Procedure Name Priority Date/Time Associated Diagnosis Comments ADALIMUMAB QUANT WITH REFLEX TO ANTIBODY Routine 10/19/2017 11:47 AM EDT Crohn's disease of ileum with rectal bleeding CRP, ACUTE INFLAMMATION Routine 10/19/2017 11:47 AM EDT Crohn's disease of ileum with rectal bleeding HEMOGRAM Routine 10/19/2017 11:47 AM EDT DIFFERENTIAL, AUTOMATED Routine 10/19/2017 11:47 AM EDT THIOPURINE METABOLITES Routine 8 11:47 AM EDT Crohn's disease of ileum with rectal bleeding VITAMIN D, 25-HYDROXY Routine 10/19/2017 11:47 AM EDT Crohn's disease of ileum with rectal bleeding COMPREHENSIVE METABOLIC PANEL Routine 10/19/2017 11:47 AM EDT Crohn's disease of ileum with rectal bleeding documented in this encounter Results * Differential, Automated (10/19/2017 11:47 AM EDT) Neutrophil % 48.2 % [facility] Neutrophil Absolute 2.42 1.70 - 6.10 x10(3)/[facility] Lymph % 44.0 % [facility] Lymphocytes Abs 2.2 0.9 - 3.2 x10(3)/[facility] Monocyte % 6.2 % [facility] Monocyte Abs 0.3 0.3 - 0.9 x10(3)/[facility] Eos % 1.0 % [facility] Eosinophils Abs 0.0 0.0 - 0.4 x10(3)/[facility] Basophil % 0.4 % [facility] Baso Absolute 0.0 0.0 - 0.1 x10(3)/[facility] Immature Gran % 0.20 % [facility] Comment: Immature granulocytes(IG's)percentage and absolute count will include metamyelocytes, myelocytes, and promyelocytes. Blood smears from CBCs yielding IG's will be scanned manually for concordance. If this scan disagrees with the automated IG or if promyelocytes are noted, a manual differential will be performed. Immature Gran Absolute 0.01 0.00 - 0.04 x10(3)/[facility] Blood specimen (specimen) Venous Draw / Unknown 10/19/2017 11:47 AM EDT 10/19/2017 11:52 AM EDT Narrative Resulting Agency Comment Spec In Lab L Timothy Pandey MD HEMATOLOGY ORDERABLE S [facility] [place] [address] * (ABNORMAL) Hemogram (10/19/2017 11:47 AM EDT) White Blood Cell 5.0 4.0 - 9.5 x10(3)/[facility] LABORATORY Red Blood Cell 4.97 4.58 - 5.54 x10(6)/[facility] Hemoglobin 15.8 13.7 - 16.5 gm/dL [facility] Hematocrit 43.6 40.5 - 48.5 % [facility] Mean Cell Volume 87.7 82.9 - 93.1 fL [facility] Mean Cell Hemoglobin 31.8 27.5 - 32.1 pg [facility] Mean Cell Hemoglobin Concentration 36.2(H) 32.0 - 35.7 gm/dL [facility] Platelet 238 145 - 357 x10(3)/[facility] LAB[facility] RDW Standard Deviation 41.8 36.0 - 45.0 [facility] RDW coefficient of variation 13.1 11.4 - 13.8 % [facility] Mean Platelet Volume 9.7 7.6 - 12.9 [facility] NRBC% auto 0.0 % [facility] NRBC Absolute 0.000 0.000 - 0.000 x10(3)/[facility] Blood specimen (specimen) Venous Draw / Unknown 10/19/2017 11:47 AM EDT 10/19/2017 11:52 AM EDT Narrative Resulting Agency Comment Spec In Lab L Timothy Pandey MD HEMATOLOGY ORDERABLE S Performing Organization Address [facility] Co de Phone Number [facility] [place] [address] * Adalimumab Quant with Reflex to Antibody (10/19/2017 11:47 AM EDT) Adalimumab Level (JULY) 7.4 mcg/mL [facility] Comment: For clinical assessment of response to therapy, adalimumab should be measured at trough. When adalimumab trough concentrations are greater than 5.0 mcg/mL, clinically relevant mvgcjhkoop-is-trvtgdogyf are unlikely and reflex testing will not be performed. REFERENCE VALUE Limit of Quantitation = 0.8 mcg/mL ADDITIONAL INFORMATION This test was developed and its performance characteristics determined by [facility] in a manner consistent with CLIA requirements. This test has not been cleared or approved by the U.S. Food and Drug Administration. Test Performed by: [facility] - [address] [address] Blood specimen (specimen) 10/19/2017 11:47 AM EDT 10/19/2017 2:02 PM EDT Narrative Resulting Agency Comment Spec In Lab L Timothy Pandey MD LAB SEND OUT ORDERAB LES Performing Organization Address [facility]/ZIP Co de Phone Number [facility] [place] [address] * Thiopurine Metabolites (10/19/2017 11:47 AM EDT) Thiopurine Metabolites (PROMETHEUS) See Scan Report [facility] Blood specimen (specimen) 10/19/2017 11:47 AM EDT 10/20/2017 12:56 PM EDT Narrative Resulting Agency Comment Spec In Lab L Timothy Pandey MD LAB SEND OUT ORDERAB LES Performing Organization Address [facility]/ZIP Co de Phone Number [facility] [place] [address] * Vitamin D, 25-Hydroxy (10/19/2017 11:47 AM EDT) Vitamin D Total 25 OH 51 30 - 100 ng/mL [facility] Comment: Deficient <10 ng/mL Insufficient 10 to 29 ng/mL Sufficient 30 to 100 ng/mL Potential Intoxication >100 ng/mL According to the US National Osteoporosis Foundation, Vitamin D concentrations >30 ng/mL are sufficient to protect bone health. ??The National Kidney Foundation has similarly stated that patients with Vitamin D concentrations <30ng/mL should be considered to be insufficient or deficient. http://[employer]/nkf-guidelines http://[employer]/nejm-VitD The markedup i[employer] Vitamin D Immunoassay detects both 25-OH Vitamin D2 and 25-OH Vitamin D3, but only a total Vitamin D concentration is reported. Blood specimen (specimen) 10/19/2017 11:47 AM EDT 10/19/2017 2:16 PM EDT Narrative Resulting Agency Comment Spec In Lab L Timothy Pandey MD CHEMISTRY ORDERABLES Performing Organization Address [facility] Co de Phone Number [facility] [place] [address] * CRP, acute inflammation (10/19/2017 11:47 AM EDT) C-Reactive Protein <0.2 <=4.9 mg/L [facility] Blood specimen (specimen) 10/19/2017 11:47 AM EDT 10/19/2017 11:52 AM EDT Narrative Resulting Agency Comment Spec In Lab L Timothy Pandey MD CHEMISTRY ORDERABLES Performing Organization Address [facility] Co de Phone Number [facility] [place] [address] * (ABNORMAL) Comprehensive metabolic panel (non-fasting) (10/19/2017 11:47 AM EDT) Glucose 94 65 - 199 mg/dL [facility] Comment:Diabetes: >=200 mg/d L plus symptoms Blood Urea Nitrogen 15 10 - 20 mg/dL [facility] Creatinine 0.89 0.80 - 1.50 mg/dL [facility] Sodium 142 135 - 145 mmol/L [facility] Potassium 4.0 3.5 - 5.0 mmol/L [facility] Comment: Please note: ??Patients with WBC >100,000 may have falsely elevated Potassium levels. ??For accurate Potassium quantification in these patients send serum separator tube (gold top) for subsequent determinations. ??Contact the Clinical Chemistry Laboratory if there are any questions. Chloride 101 98 - 107 mmol/L [facility] Carbon Dioxide 27 22 - 31 mmol/L [facility] Anion Gap 14 5 - 15 mmol/L [facility] Calcium 9.8 8.5 - 10.5 mg/dL [facility] Protein, Total 7.4 6.1 - 8.0 gm/dL [facility] Albumin 4.5 3.2 - 5.2 gm/dL [facility] Aspartate Aminotransferase 31 0 - 39 unit/L [facility] Alanine Aminotransferase 43 0 - 55 unit/L [facility] Alkaline Phosphatase 59 40 - 120 unit/L [facility] Bilirubin, Total 1.5(H) 0.2 - 1.3 mg/dL [facility] Est Glomerular Filtration Rate 105 >=60 mL/min/1. 73 m?? [facility] Comment: The eGFR was calculated using the CKD-EPI equation. As with all creatinine based estimates of kidney function, eGFR values calculated with the CKD-EPI equation are not accurate in patients with acute kidney failure, extremes of body mass or the acutely ill. http://[employer]/DHnkf eGFR 122 >=60 mL/min/1. 73 m?? [facility] Comment: The eGFR was calculated using the CKD-EPI equation. As with all creatinine based estimates of kidney function, eGFR values calculated with the CKD-EPI equation are not accurate in patients with acute kidney failure, extremes of body mass or the acutely ill. http://[employer]/DHMCnkf Blood specimen (specimen) 10/19/2017 11:47 AM EDT 10/19/2017 11:52 AM EDT Narrative Resulting Agency Comment Spec In Lab L Timothy Pandey MD CHEMISTRY ORDERABLES [facility] [place] [address] documented in this encounter Visit Diagnoses Diagnosis Crohn's disease of ileum with rectal bleeding documented in this encounter Care Teams C Consultant Relationship Specialty Start Date End Date Irwin Gonsalez DO [address] [place] [address] PCP - General 05/01/11 documented as of this encounter
--- OUTSIDE RECORDS SUMMARY | 2024-03-10 02:00 | XMS_ITS | Encounter Summary ---
Author Organization [facility] Address [facility] [place] [address] Care Team Providers Care Fish Farm Laborer Name Role Phone Irwin Gonsalez DO Primary Care Provider Encounter Details Date Type Department Care Team (Latest Contact Info) Description 12/10/2016 9:02 AM EDT - 12/10/2016 11:59 PM EDT Hospital En[place] [phone] Alyson Husain Jr., MD [facility] [address] Nephrolithiasis Discharge Disposition: Home Social History Tobacco Use [...] morning (before breakfast). azaTHIOprine (IMURAN) 50 mg Tablet TAKE 5 TABLETS BY MOUTH EVERY DAY DIRECTED 150 tablet 5 05/11/2016 01/02/2017 Adalimumab 40 mg/0.8 mL Pen Injector Kit Inject 0.8 mLs subcutaneously every 14 days. 6 kit 1 04/25/2016 05/05/2017 documented as of this encounter Plan of Treatment Upcoming Encounters Date Type Department Care Team (Latest Contact Info) Description 04/01/2024 12:35 PM EST Hospital Encounter [place] [address] Apurva Vivas MD [facility] [place] [address] 04/01/2024 12:35 PM EST - 04/01/2024 2:17 PM EST Surgery [place] [address] Apurva Vivas MD [facility] [place] [address] ANORECTAL EXAM, REQUIRING ANESTHESIA, DIAGNOSTIC (WRVU 1.8) 04/26/2024 3:00 PM EST Office [place] [phone] Apurva Vivas MD [facility] [address] Scheduled Procedures Name Priority Associated Diagnoses Date/Ti me ANORECTAL EXAM, REQUIRING ANESTHESIA, DIAGNOSTIC (WRVU 1.8) perianal crohns disease w/fistula 04/01/2024 12:35 PM EST SURGICAL TREATMENT OF ANAL FISTULA COMPLEX OR MULTIPLE W\WO SETON PLACEMENT (WRVU 6.39) perianal crohns disease w/fistula 04/01/2024 12:35 PM EST documented as of this encounter Goals Goal Patient Goal Type Associated Problems Recent Progress Patient-Stated? Author DH Dumont Medication Compliance and Understanding Patient Facing Action Plan On track( 017 9:39 PM EDT) No Perri Sousa, [facility] Note: Patient's specific desired goal: Laly would [...] Procedure Name Priority Date/Time Associated Diagnosis Comments US RETROPERITONEAL COMPLETE Routine 12/10/2016 9:41 AM EDT Nephrolithiasis documented in this encounter Results * US Retroperitoneal Complete (12/10/2016 9:41 AM EDT) Anatomical Region Laterality Modality Abdomen Ultrasound 12/10/2016 9:27 AM EDT Impressions 12/10/2016 10:04 AM EDT ??No nephrolithiasis. No collecting system dilation. ?Roxana Moran MD Electronically Signed Final Report ?? 12/10/2016 10:04 am Narrative 12/10/2016 10:04 AM EDT Renal ? (Signed Final 12/10/2016 10:04 am) PATIENT INFO: ID #: ? [id number] ?: ??[birth year] (41 yrs) Name: ? LALY Basurto TEJAL ? Visit Date: 12/10/2016 09:27 am PERFORMED BY: Performed By: ? Mary BARRERA, ??Michelle Attending: ?Roxana Moran MD. Referred By: ?ALYSON HUSAIN Location: ? [place] SERVICE(S) PROVIDED: ??URETRO - Retroperitoneal Complete - [id number] ? [id number] INDICATIONS: ??Nephrolithiasis COMPARISON: CT scan: 03/21/16 RIGHT KIDNEY: Size (cm) ?L: ??12.4 Cortical Thickness: ?Normal Cortical Echogenicity: ?? Normal Hydronephrosis: ?No sonographic evidence LEFT KIDNEY: Size (cm) ?L: ??12.4 Cortical Thickness: ?Normal Cortical Echogenicity: ?? Normal Hydronephrosis: ?No sonographic evidence URINARY BLADDER: Pre-void (cm) ? L: ??5.5 ? AP: ??4.6 ? TV: ??6.0 Vol (ml): ?79.5 Comment: ?Partially distended, normal contour Procedure Note Roxana Moran MD - 12/10/2016 Renal (Signed Final 12/10/2016 10:04 am) PATIENT INFO: ID #: [id number] : [birth year] (41 yrs) Name: LALY TOURE Visit Date: 12/10/2016 09:27 am PERFORMED BY: Performed By: Michelle Henrandez RDMS Attending: Roxana Moran MD Referred By: ALYSON HUSAIN JR Location: [place] SERVICE(S) PROVIDED: URETRO - Retroperitoneal Complete - [id number] INDICATIONS: Nephrolithiasis COMPARISON: CT scan: 03/21/16 RIGHT KIDNEY: Size (cm) L: 12.4 Cortical Thickness: Normal Cortical Echogenicity: Normal Hydronephrosis: No sonographic evidence LEFT KIDNEY: Size (cm) L: 12.4 Cortical Thickness: Normal Cortical Echogenicity: Normal Hydronephrosis: No sonographic evidence URINARY BLADDER: Pre-void (cm) L: 5.5 AP: 4.6 TV: 6.0 Vol (ml): 79.5 Comment: Partially distended, normal contour IMPRESSION No nephrolithiasis. No collecting system dilation. Roxana Moran MD Electronically Signed Final Report 12/10/2016 10:04 am Alyson Husain Jr., MD IMG GEN ORDERAB LES documented in this encounter Visit Diagnoses Diagnosis Nephrolithiasis Calculus of kidney documented in this encounter Care Teams Fish Farm Laborer Relationship Specialty Start Date End Date Wallace DO Irwin [address] [facility] [address] [place] [address] PCP - General 05/01/11 documented as of this encounter
--- OUTSIDE RECORDS SUMMARY | 2024-03-10 02:00 | XMS_ITS | Encounter Summary ---
Author Organization [facility] Address [facility] [place] [address] Care Team Providers Care Under Presser Name Role Phone Irwin Gonsalez DO Primary Care Provider Encounter Details Date Type Department Care Team (Late st Contact Info) Description 02/10/2017 Telephone Dermatology at [facility] [address] [place] [address] Bharathi Foote MD [facility] [address] [place] [address] Social History Tobacco Use Types Packs/Day Years [...] encounter Miscellaneous Notes * Telephone Encounter - Awa Tomlin - 02/10/2017 9:14 AM EST I just received notice that Igor J Kacy has been approved his 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 Benefits can be provided subject to the terms and condition sof the member's contract with [facility] and [facility] of [facility]. The coverage is effective starting 12/31/2016 to 02/07/2018. The provider must administer the drug in their office orclinic, this will process under the member's medical benefit and an office visit copay may be applied. The provider must include on the FA 1500 claim form the name of the drug, dosage, with the numberof units and the NDC code. documented in this encounter Plan of Treatment Upcoming Encounters Date Type Department Care Team (Latest Contact Info) Description 04/01/2024 12:35 PM EST Hospital Encounter [place] [address] Apurva Vivas MD [facility] [place] [address] 04/01/2024 12:35 PM EST - 04/01/2024 2:17 PM EST Surgery [place] [address] Apurva Vivas MD [facility] [place] [address] ANORECTAL EXAM, REQUIRING ANESTHESIA, DIAGNOSTIC (WRVU 1.8) 04/26/2024 3:00 PM EST Office [place] [address] Apurva Vivas MD [facility] [place] [address] Scheduled Procedures Name Priority Associated Diagnoses Date/Ti [...] on filedocumented in this encounter Care Teams Under Presser Relationship Specialty Start Date End Date Irwin Gonsalez DO [address] [place] [address] PCP - General 05/01/11 documented as of this encounter
--- OUTSIDE RECORDS SUMMARY | 2024-03-10 02:00 | XMS_ITS | Encounter Summary ---
Author Organization [facility] Address [place] [address] Care Team Providers Care Wood Tile Installation Helper Name Role Phone Irwin Gonsalez DO Primary Care Provider [phone] Reason for Visit * Reason Comments Follow-up Encounter Details Date Type Department Care Team (Late st Contact Info) Description 10/24/2016 8:30 AM EDT Office Visit [place] [address] Apurva Vivas MD [facility] [place] [address] Xeqgeny-ia-qet Social History Tobacco Use Types Packs/Day Years [...] Sign Reading Time Taken Comments Blood Pressure 146/86 10/24/2016 8:18 AM EDT Pulse 91 10/24/2016 8:18 AM EDT Temperature - - Respiratory Rate 16 10/24/2016 8:18 AM EDT Oxygen Saturation 100% 10/24/2016 8:18 AM EDT Inhaled Oxygen Concentration - - Weight 104.7 kg (230 lb 14.4 oz) 10/24/2016 8:18 AM EDT Height - - Body Mass Index 31.32 08/18/2016 3:55 PM EDT documented in this encounter Progress Notes * Apurva Vivas MD - 10/24/2016 8:30 AM EDT Colon and Rectal Surgery Follow-up Office Visit COREFO Responses 12/26/2015 03/26/2016 10/24/2016 Incontinence Scale 2.77 0 2.77 Social Impact Scale 30.55 16.66 11.11 Frequency Scale 25 12.5 12.5 Stool Releated Aspects 16.66 0 8.33 Medication Scale 25 0 0 Total COREFO Score 18.26 6.73 6.73 Interval History: Doing well since seton placement in February. Continues to have mild, intermittent drainage. This is occasionally foul smelling. No pain. Seton does not particularly both him. Had akidney stone that was removed and a stent placed. This has been removed. He is doing well with the Humira. Gets headaches before and after doses. Is here to find out if the seton can be removed. BP 146/86 Pulse 91 Resp 16 Wt (!) 104.7 kg (230 lb 14.4 oz) SpO2 100% BMI 31.32 kg/m2 Body mass index is 31.32 kg/(m^2). Gen NAD Anal: normal appearing perianal skin. No skin tags. Right posterior seton in place. No drainage. VLADIMIR with normal tone at rest and with squeeze. Non-tender, no masses or induration. A/P: 41 yo man with Crohn's disease and right posterior fistula in ano - seton placed 02/2016. He is on Humira. He is wondering if the seton can be removed. We discussed options of keeping the seton in indefinitely versus removal now and seeing if the fistula heals with the Humira. Discussed risks and benefits of living with the seton but minimal risk ofrecurrent abscess in that area. Alternatively, removal of the seton could result in healing (probably about 1/3 will heal). If it does not heal, it may continue to drain but could also result in a recurrent abscess that would need repeat surgical drainage and seton placement. Mr. Woodruff prefers to leave the seton in place at this time and avoid the chance of an urgent reintervention. He will continue his follow up with Dr. Pandey and call for an appointment with me as needed I personally spent a total of 15 minutes in zkaz-wy-trap consultation with the patient, of which 10were in patient education and counseling. Apurva Vivas MD hr consultant Division of Colon and Rectal Surgery [facility] Pager [phone] documented in this encounter Plan of Treatment Upcoming Encounters Date Type Department Care Team (Latest Contact Info) Description 04/01/2024 12:35 PM EST Hospital Encounter [place] [address] Apurva Vivas MD [facility] [place] [address] 04/01/2024 12:35 PM EST - 04/01/2024 2:17 PM EST Surgery [place] [address] Apurva Vivas MD [facility] [place] [address] ANORECTAL EXAM, REQUIRING ANESTHESIA, DIAGNOSTIC (WRVU 1.8) 04/26/2024 3:00 PM EST Office Visit [place] [address] Apurva Vivas MD [facility] [place] [address] Scheduled Procedures Name Priority Associated Diagnoses Date/Ti [...] track( 017 9:39 PM EDT) Perri Hernandez, [facility] Note: Patient's specific desired goal: [...] as of this encounter Visit Diagnoses Diagnosis Fylokee-ls-tke Anal fistula documented in this encounter Care Teams Wood Tile Installation Helper Relationship Specialty Start Date End Date Irwin Gonsalez DO [address] [place] [address] PCP - General 05/01/11 documented as of this encounter
--- OUTSIDE RECORDS SUMMARY | 2024-03-10 02:00 | XMS_ITS | Encounter Summary ---
[place] [address] Care Team Providers Care Food Service Representative Name Role Phone Irwin Gonsalez DO Primary Care Provider [phone] Encounter Details Date Type Department Care Team (Late st Contact Info) Description 08/03/2017 Notes [place] [address] SolomonPerri Social History Tobacco Use Types Packs/Day Years [...] as of this encounter Progress Notes * Perri Lujan - 08/03/2017 11:51 AM EDT [facility] Specialty Pharmacy Prior Authorization Medication: Humira RX Insurance: [employer] Insurance Phone #: [phone] Insurance Fax #: ID #: [id number] Spoke With: MARCOS Reference #: [id number] Date MARCOS Sent: 08/03/2017 Approval Date: Approved until 08/03/2018 Pharmacy: Pharmacy Notes: documented in this encounter Plan of Treatment Upcoming Encounters Date Type Department Care Team (Latest Contact Info) Description 04/01/2024 12:35 PM EST Hospital Encounter [place] [address] Apurva Vivas MD [facility] [place] [address] 04/01/2024 12:35 PM EST - 04/01/2024 2:17 PM EST Surgery [place] [phone] Apurva Vivas MD [facility] [place] [address] ANORECTAL EXAM, REQUIRING ANESTHESIA, DIAGNOSTIC (WRVU 1.8) 04/26/2024 3:00 PM EST Office Visit [place] [phone] Apurva Vivas MD [facility] [place] [address] Scheduled Procedures Name Priority Associated Diagnoses Date/Ti [...] filedocumented in this encounter Care Teams Food Service Representative Relationship Specialty Start Date End Date Irwin Gonsalez DO [address] [place] [address] PCP - General 05/01/11 documented as of this encounter
--- OUTSIDE RECORDS SUMMARY | 2024-03-10 02:00 | XMS_ITS | Encounter Summary ---
[place] [address] Care Team Providers Care Rotary Dryer Operator Name Role Phone Irwin Gonsalez DO Primary Care Provider Encounter Details Date Type Department Care Team (Late st Contact Info) Description 07/28/2016 [place] [address] Brenden Dugan, GAME MODERATOR Social History Tobacco Use Types Packs/Day Years Used Date Smoking Tobacco: Never Alcohol Use Standard Drinks/Week Comments Yes 1 (1 standard drink = 0.6 oz pur e alcohol) Sex and Gender Information Value Date Recorded Sex Assigned at Male 06/08/2023 4:49 PM EDT Gender Identity Not on file Sexual Orientation Not on file documented as of this encounter Progress Notes * Brenden Dugan CPHT - 07/28/2016 12:49 PM EDT [facility] Specialty Pharmacy Prior Authorization Medication: Humira (Reathorization) RX Insurance: [employer] [facility] ([place] Insurance Phone #: [phone] Insurance Fax #: Sent Via Cover My Meds ID #: [id number] Spoke With: MARCOS Reference #: [id number] Date MARCOS Sent: 07/28/2016 Approval Date: 07/28/2016 - 07/28/2017 Pharmacy: [facility] Notes: Sent PA for reauthorization, await response. * Brenden Dugan CPHT - 07/28/2016 12:49 PM EDT The PA for Humira reauthorization has been approved and will be valid from 07/28/2016 through 07/28/2017. documented in this encounter Plan of Treatment Upcoming Encounters Date Type Department Care Team (Latest Contact Info) Description 04/01/2024 12:35 PM EST Hospital Encounter [place] [phone] Apurva Vivas MD [facility] [place] [address] 04/01/2024 12:35 PM EST - 04/01/2024 2:17 PM EST Surgery [place] [phone] Apurva Vivas MD [facility] [place] [address] ANORECTAL EXAM, REQUIRING ANESTHESIA, DIAGNOSTIC (WRVU 1.8) 04/26/2024 3:00 PM EST Office [place] [phone] Apurva Vivas MD [facility] [place] [address] Scheduled Procedures Name Priority Associated Diagnoses Date/Ti [...] track( 017 9:39 PM EDT) Perri Hernandez, [facility] Note: Patient's specific desired [...] on filedocumented in this encounter Care Teams Rotary Dryer Operator Relationship Specialty Start Date End Date Irwin Gonsalez DO [address] [place] [address] PCP - General 05/01/11 documented as of this encounter
--- OUTSIDE RECORDS SUMMARY | 2024-03-10 02:00 | XMS_ITS | Encounter Summary ---
[place] [address] Care Team Providers Care Hardener Helper Name Role Phone Irwin Gonsalez DO Primary Care Provider Reason for Visit * Reason Comments Medication Management Encounter Details Date Type Department Care Team (Late st Contact Info) Description 03/30/2017 Specialty [place] [phone] Adelaide Sánchez Social History Tobacco Use Types [...] Progress Notes * Adelaide Gonzales RPH - 03/30/2017 3:26 PM EST Clinical Management Plan: Refill Specialty Pharmacy Consultation; Adelaide Gonzales RPH Comprehensive Medication Management (CMM) Igor Sherine Kacy Mr. Igor Woodruff is a 42 y.o. (1975) male who was contacted in regard to a specialty medication refill reminder. Spoke with patient regarding HUMIRA. A review of the medication therapy wasperformed. The medication was Refilled as scheduled, and all medication related questions and concerns were addressed. The specialty pharmacy staff will follow up with the patient 5-7 days prior to next refill. Assessment and Recommendations: General Medication Management Cognitive ability: good Allergies and Drug intolerance: No Known Allergies Medication Reconciliation Discrepancies (compared to [facility] med list) -none New medications: no New medical conditions: no New allergies: no Adherence: Medication Adherence Patient reported X missed doses in the last month: 0 - reported a delay in dose a while ago to our highway traffic control technician Any gaps in refill history greater than [...] at the appointment and that [facility] is providing recommendations (summary located at top of note) for provider review and follow up. Adelaide Gonzales RPH 03/30/17 3:31 PM documented in this encounter Plan of Treatment Upcoming Encounters Date Type Department Care Team (Latest Contact Info) Description 04/01/2024 12:35 PM EST Hospital Encounter [place] [address] Apurva Vivas MD [facility] [place] [address] 04/01/2024 12:35 PM EST - 04/01/2024 2:17 PM EST [place] [address] Apurva Vivas MD [facility] [place] [address] ANORECTAL EXAM, REQUIRING ANESTHESIA, DIAGNOSTIC (WRVU 1.8) 04/26/2024 3:00 PM EST Office [place] [address] Apurva Vivas MD [facility] [place] [address] Scheduled Procedures Name Priority Associated Diagnoses Date/Ti [...] on filedocumented in this encounter Care Teams Hardener Helper Relationship Specialty Start Date End Date Irwin Gonsalez DO [address] [place] [address] [address] [place] [address] PCP - General 05/01/11 documented as of this encounter
--- OUTSIDE RECORDS SUMMARY | 2024-03-10 02:00 | XMS_ITS | Encounter Summary ---
[place] [address] Care Team Providers Care Cartography Technician Name Role Phone Irwin Gonsalez DO Primary Care Provider [phone] Reason for Visit * Reason Comments Medication Management Encounter Details Date Type Department Care Team (Late st Contact Info) Description 11/26/2016 Specialty [place] [phone] Adelaide Sánchez Social History Tobacco Use Types [...] this encounter Progress Notes * Adelaide Gonzales [facility] - 11/26/2016 9:38 PM EDT Clinical Management Plan: Refill Specialty Pharmacy Consultation; Adelaide Gonzales RPH Comprehensive Medication Management (CMM) Igor Monzonjoshua Mr. Igor Woodruff is a 41 y.o. (1975) male who was contacted in regard to a specialty medication refill reminder. Spoke with caregiver. Caregiver name: Casi SIMS. A review of the medication therapy was performed. The medication was Refilled as scheduled, and all medication related questions and concerns were addressed. The specialty pharmacy staff will follow up with the pa isiah 5-7 days prior to next refill. required consult with pharmacist regarding travel advice with [place], as the patient's dose will be due in the middle of their scheduled vacation in December. Advise the regarding length of room temperature stability and aiport security instructions. had no other questions or concernsto report. Assessment and Recommendations: General Medication Management Cognitive ability: good Appropriate therapy: yes New medications: no New medical conditions: no [...] next specialty medication refill: delivery by pharmacy Are you experiencing any side effects from your medications? no Pt understands no changes to current drug regimen were made at the appointment and that [facility] is providing recommendations (summary located at top of note) for provider review and follow up. Adelaide Gonzales RPH 11/26/16 9:40 PM documented in this encounter Plan of Treatment Upcoming Encounters Date Type Department Care Team (Latest Contact Info) Description 04/01/2024 12:35 PM EST Hospital Encounter [place] [address] Apurva Vivas MD [facility] [place] [address] 04/01/2024 12:35 PM EST - 04/01/2024 2:17 PM EST Surgery [place] [address] Apurva Vivas MD [facility] [place] [address] ANORECTAL EXAM, REQUIRING ANESTHESIA, DIAGNOSTIC (WRVU 1.8) 04/26/2024 3:00 PM EST Office [place] [address] Apurva Vivas MD [facility] [place] [address] Scheduled Procedures Name Priority Associated Diagnoses Date/Ti [...] on filedocumented in this encounter Care Teams Cartography Technician Relationship Specialty Start Date End Date Irwin Gonsalez DO [address] [place] [address] [address] [place] [address] PCP - General 05/01/11 documented as of this encounter
--- OUTSIDE RECORDS SUMMARY | 2024-03-10 02:00 | XMS_ITS | Encounter Summary ---
Author Organization [facility] Address [facility] [place] [address] Care Team Providers Care Portable Machine Sander Name Role Phone Irwin Gonsalez DO Primary Care Provider Reason for Visit * Auth/Cert Specialty Diagnoses / Procedures Referred By Haresh powers Referred To Contact Diagnoses stones Procedures PRO CYSTO/URETERO/PYELOSCOPY W/LITHOTRIPSY PRO CYSTOSCOPY, REMV CALCULUS, SIMPLE PRO CYSTOSCOPY, INSERT URETERAL STENT CYSTOURETEROSCOPY, LITHOTRIPSY (WRVU 7.5) CYSTO, REMOVAL OF STENT, FOREIGN BODY OR CALCULUS, SIMPLE (WRVU 2.81) CYSTO, STENT PLACEMENT (WRVU 2.82) Referral ID Status Reason Start Date Expiration Date Visits Re quested Visits Authorized [id number] 1 1 Encounter Details Date Type Department Care Team (Late st Contact Info) Description 05/23/2016 8:50 AM EST Anesthesia Event [facility] [place] [phone] Harmeet Hope DO Seiffert, Ellen A, MD [facility] [place] [address] Anesthesia Record Procedure Summary Procedure Name Responsible Anesthesiologist Anesthesia Start Time Anesthesia Stop Time CYSTO, REMOVAL OF STENT, FOREIGN BODY OR CALCULUS, SIMPLE (WRVU 2.81) (Left: Bladder) Harmeet Hope, DO 05/23/16 0850 05/23/16 1125 Events Date Time Event Comment 05/23/2016 0820 0850 AN Verify 0850 Start 0851 An Start Data 0854 An Induction 0855 An Intubation 0857 Anesthesia Ready 1005 Break/Relief In T Jayy for KATYA WOLFF CRNA 1017 Break/Relief Out 1118 Extubation/LMA Out 1118 an stop data 1118 Recovery or ICU Handoff Millie ent care was transferred to the destination unit staff after review of the patient's medical history, current anesthetic/surgical status and plan, according to the Provider Handoff Checklist. 1125 Stop Meds Name Total Midazolam 2 mg fentaNYL 175 mcg IV Lidocaine 60 mg Propofol 260 mg Ondansetron 8 mg Dexamethasone 8 mg Propofol INF 1,197.12 mg ciprofloxacin (CIPRO) 400mg in dextrose 5% 200mL 400 mg Ketorolac 30 mg lactated ringers infusion 1,000 mL 1,000 mL * Agents Name O2 Air N2O Sevoflurane (et) * Blood No blood administrations on file. Lines, Drains, and Airways Type Details Placement Removal NG/OG Tube 05/23/16; 0909; orogastric; 12 Fr; inserted into drain port of IGEL to low wall suction X 1 then to gravity drainage 05/23/16 0909 by Katya Wolff CRNA Incision 10/29/10; 0830; abdomen; 11/11/21 (LDA cleanup utility RA#[id number]); 1715 (LDA cleanup utility RA#[id number]) 10/29/10 0830 by Bianca Villalobos RN 11/11/21 1715 by Cisco Stevens Incision 10/29/10; 0830; abdomen (4 trocar sites); 11/11/21 (LDA cleanup utility RA#[id number]); 1715 (LDA cleanup utility RA#[id number]) 10/29/10 0830 by Bianca Villalobos RN 11/11/21 1715 by Cisco Stevens Supraglottic Mask Ventilation: Ea sy (1); Oral Airway: 100 mm (5); Inserted by: ADRYAN Leach; Removal Date: 05/23/16; Removal Time: 1118 05/02/16 1044 by Kacey Howell CRNA 05/23/16 1118 by Katya Wolff CRNA (RETIRED) Peripheral IV Line - Single Lumen 05/23/16; 0807; median cubital vein (antecubital fossa), left; sozy-jzr-wlugeo catheter system; 20 gauge; distraction, intradermal injection, tolerated well, appears comfortable; no longer indicated, catheter/device intact, removed per policy/procedure; 05/23/16; 1220 05/23/16 0807 by Riya Matos RN 05/23/16 1220 by Kaylynn Palmer RN Supraglottic Mask Ventilation: No t Attempted (0); LMA Type: iGel; LMA Size: 4; Inserted by: New; Removal Date: 05/23/16; Removal Time: 11105/23/16 0855 by Katya Wolff CRNA 05/23/16 1118 by Katya Wolff CRNA documented in this encounter Social History Tobacco Use Types Packs/Day Years Used Date Smoking Tobacco: Never Alcohol Use Standard Drinks/Week Comments Yes 1 (1 standard drink = 0.6 oz pur e alcohol) Sex and Gender Information Value Date Recorded Sex Assigned at Male 06/08/2023 4:49 PM EDT Gender Identity Not on file Sexual Orientation Not on file documented as of this encounter OR Notes * Anesthesia Postprocedure Evaluation - Harmeet Hope DO - 05/23/2016 3:18 PM EST [facility] Department of Anesthesiology Post-procedure Note Patient: Igor Woodruff Procedure Summary Date Anesthesia Start Anesthesia Stop Room / Location 05/23/16 0850 1125 [facility] OR [address] [place] [address] [facility] Procedure Diagnosis Surgeon Responsible Provider CYSTO, REMOVAL OF STENT, FOREIGN BODY OR CALCULUS, SIMPLE (WRVU 2.81) (Left Bladder); MODIFIER HOLMIUM LASER (N/A Bladder); CYSTOURETEROSCOPY,DIAGNOSTIC,W/ LITHOTRIPSY INC. INSERTION OF INDWELLING URETERAL STENT (WRVU 8) (Left Bladder); FLUROSCOPY:UP TO ONE HOUR (WRVU 0.17) (Left Ureter); CYSTO, RETROGRADE, URETEROPYELOGRAPHY (WRVU 2.37) (Left Bladder) (stones) Dougie Husain Jr., MD Walker, Tacee E, DO All Anesthesia Providers: Anesthesiologist: Harmeet Hope DO UPHOLSTERY MECHANIC: Katya Wolff CRNA Last (1hr) Vitals: BP Temp Pulse Resp SpO2 Patient Location: PACU/[facility] Level of Consciousness: Awake and Alert Pain Management: Satisfactory Analgesia PONV: None Cardiovascular Status: At Baseline and Hemodynamically Stable Respiratory Status: At Baseline and Room Air Postoperative Fluid Status: Intravascular EUvolemia Possible Anesthetic Complications: NONE apparent at time of evaluation Final Primary Anesthesia Type: General (The anesthetic type performed was the same as planned.) Comments: Harmeet Hope DO * Anesthesia Preprocedure Evaluation - Harmeet Hope DO - 05/23/2016 7:31 AM EST Pre-Anesthesia Evaluation for: Igor Woodruff a 41 y.o. male. Procedure(s): CYSTOURETEROSCOPY, LITHOTRIPSY (WRVU 7.5) CYSTO, STENT PLACEMENT (WRVU 2.82) MODIFIER HOLMIUM LASER Patient Active Problem List Diagnosis ??? Perianal abscess, right posterior ??? [id number] ??? Crohn's ileitis ??? diagnosed at age 17 yo ??? S/p ileocolic resection 11/03/10 - 19.5 cm of terminal ileum with active inflammation, fibrosis and an enteroenteric fistula. ??? SBFT 01/23 - persistent terminal ileal stricture as described above, consistent with the history of Crohn's, with additional adjacent entero-enteric fistula, findings similar to the prior 2008 study ??? Colonoscopy 02/28/10: Stricture and pseudopolyps likely at the level of the IC valve. Mild inflammation characterized by a single ulcer, erythema and congestion. IC valve could never be clearly identified and the stricture could not be traversed. ??? CT scan 03/26/10: Active ileal disease with enteroenteric fistula; incidental finding of L lowerlobe indeterminate pulmonary nodule; fatty replacement of liver. ??? Treated with Imuran for the last 4 years; had been treated with Asacol prior ??? 6MP metabolies were 6TG 213, 6MMP 1015. AZA to 250 mg qd 04/2009. Repeat metabolites 6TG 315, 6MMP 4217 ??? Vitamin B12 446 02/14/14 ??? Abnormal liver function test ?? ALT 65-78 on increased dose of 6MP ?? fatty hepatic replacement on CT Display name was automatically updated by a utility run on 06/18/2011 ??? GERD (gastroesophageal reflux disease) ??? responsive to Nexium Past Medical History: Diagnosis Date ??? ABNORMAL LIVER FUNCTION TEST 07/07/2010 ??? Crohn's ileitis 07/07/2010 ??? GERD (gastroesophageal reflux disease) 07/07/2010 Past Surgical History: Procedure Laterality Date ??? APPENDECTOMY 1999 ??? MENISCECTOMY 2002 arthroscopic, R knee ??? PRG FLUOROSCOPE EXAMINATION Left 05/02/2016 FLUOROSCOPY (WRVU 0.17) performed by Dougie Husain Jr., MD at [facility] ??? PRO COLONOSCOPY, BIOPSY 05/01/2011 COLONOSCOPY FLEXIBLE, WITH BX performed by Ramonita MATAMOROS at [facility] ENDOSCOPY ??? PRO COLONOSCOPY, DIAGNOSTIC 02/25/2013 COLONOSCOPY, DIAGNOSTIC performed by Ramonita Matamoros MD at [facility] ENDOSCOPY ??? PRO CYSTO/URETERO/PYELOSCOPY, DX Left 05/02/2016 CYSTOURETEROSCOPY, DIAGNOSTIC (WRVU 5.75) performed by Dougie Husain Jr., MD at [facility] ??? PRO CYSTOSCOPY, INSERT URETERAL STENT Left 05/02/2016 CYSTO, STENT PLACEMENT (WRVU 2.82) performed by Dougie Husain Jr., MD at [facility] ??? PRO CYSTOURETHROSCOPY, URETER CATHETER Left 05/02/2016 CYSTO, RETROGRADE, URETEROPYELOGRAPHY (WRVU 2.37) performed by Dougie Husain Jr., MD at [facility] ??? PRO LAP, SURG, COLECTOMY, W/REMVL TERM ILEUM 10/29/2010 ??LAPAROSCOPIC ASSISTED COLECTOMY, PARTIAL, REM.TERMINAL ILEUM performed by TORITO MOHAN at [facility] MAIN OR ??? PRO PLACEMENT, SETON N/A 02/26/2016 ANAL SETON PLACEMENT (WRVU 3) performed by Apurva Vivas MD at [facility] MAIN OR ??? PRO SURG DIAGNOSTIC EXAM, ANORECTAL N/A 02/26/2016 ANORECTAL EXAM, REQUIRING ANESTHESIA, DIAGNOSTIC (WRVU 1.8) performed by Apurva Vivas MD at [facility] MAIN OR Social History Substance Use Topics ??? Smoking status: Never Smoker ??? Smokeless tobacco: Not on file ??? Alcohol use 0.6 oz/week 1 Cans of beer per week History Drug Use No No Known Allergies Medications: MAR and/or home medications have been reviewed. Physical Exam: There were no vitals filed for this visit. There is no height or weight on file to calculate BMI. Airway Assessment: Mallampati: II TM distance: >3 FB Neck ROM: full Cardiovascular Assessment: Rhythm: regular Rate: normal Pulmonary Assessment: breath sounds clear to auscultation Dental Assessment: - normal exam Misc Assessment: Patient is wearing No contact(s). IV access: Peripheral line Anesthesia Plan: ASA 2 general, with a(n) intravenous induction 41 y/o male for Cysto/Litho/Stent (L) Stone No hx of difficulty w anesthesia- Previous Igel 4 Denies CP/SOB/Orthopnea/Active JENN ss/Acute illness Appears and feels well today Plan GA/KVNG/IV and VA maint/p op PACU care and IV pain control w antiemetics IC discussed and obtained Region - Other Informed Consent: Anesthetic plan and risks discussed with patient and spouse. Plan discussed with UPHOLSTERY MECHANIC. PAT Staff Note Attending NOTE Brief HPI: 41 y.o. with urolithiasis to OR for cyso Diagnosis ??? Crohn's ileitis ??? GERD (gastroesophageal reflux disease): well controlled METS:>4 Cardiac Symptoms: denies EKG: none ECHO: none LABS: Lab Results Component Value Date HGB 14.8 03/21/2016 PLATELET 251 03/21/2016 CREATININE 0.84 03/21/2016 Past anesthetic problems: denies Previous airway notes (on eDH): easy MV, iGel 4 NPO status: Reviewed and appropriate Anesthetic Plan: GA Monitoring: Standard ASA monitors ` documented in this encounter Plan of Treatment Upcoming Encounters Date Type Department Care Team (Latest Contact Info) Description 04/01/2024 12:35 PM EST Hospital Encounter [place] [phone] Apurva Vivas MD [facility] [place] [address] 04/01/2024 12:35 PM EST - 04/01/2024 2:17 PM EST Surgery [place] [phone] Apurva Vivas MD [facility] [place] [place] [address] ANORECTAL EXAM, REQUIRING ANESTHESIA, DIAGNOSTIC (WRVU 1.8) 04/26/2024 3:00 PM EST Office [place] [phone] Apurva Vivas MD [facility] [place] [place] [address] Scheduled Procedures Name Priority Associated Diagnoses Date/Ti [...] 017 9:39 PM EDT) Perri Hernandez, [facility] Note: Patient's specific desired goal: [...] MAR Action Action Date Dose Rate Site ciprofloxacin (CIPRO) 400mg in dextrose 5% 200mL 400 mg, Intravenous, SUPERVISOR NEWSP[employer]ER DELIVERIES TO O.R., 1 dose, On Thu05/23/16 at 0815, Administer over 60 Minutes, Day of Surgery (Day of Procedure), Indication for (Active or Suspected): Prophylaxis, Restricted Antibiotic: Please indicate the most appropriate choice: Pre-approved Indication (State the indication in Comments field) Given 05/23/2016 8:56 AM EST 400 mg dexamethasone (DECADRON) injection PRN, Starting on Thu05/23/16 at 0905, Until Thu05/23/16 at 1125, Anesthesia Intra-op, Routine Given 05/23/2016 9:05 AM EST 8 mg fentaNYL 50 mcg/mL multi-dose injection PRN, Starting on Thu05/23/16 at 0854, Until Thu05/23/16 at 1125, Pain, Anesthesia Intra-op, Routine Given 05/23/2016 10:48 AM EST 25 mcg Given 05/23/2016 10:45 AM EST 25 mcg Given 05/23/2016 10:43 AM EST 25 mcg ketorolac (TORADOL) injection PRN, Starting on Thu05/23/16 at 1102, Until Thu05/23/16 at 1125, Pain, Anesthesia Intra-op, Routine Given 05/23/2016 11:02 AM EST 30 mg lactated ringers infusion 1,000 mL 1,000 mL, at 100 mL/hr, Intravenous, CONTINUOUS, Starting on Thu05/23/16 at 0815, Until Thu05/23/16 at 1450, Day of Surgery (Day of Procedure) New Bag 05/23/2016 8:45 AM EST New Bag 05/23/2016 8:10 AM EST 1,000 mLs 100 mL/hr lidocaine (PF) (XYLOCAINE) 100 mg/5 mL (2 %) injection PRN, Starting on Thu05/23/16 at 0854, Until Thu05/23/16 at 1125, Anesthesia Intra-op, Routine Given 05/23/2016 8:54 AM EST 60 mg midazolam (PF) (VERSED) 1 mg/mL multi-dose injection PRN, Starting on Thu05/23/16 at 0848, Until Thu05/23/16 at 1125, Sleep, Anesthesia Intra-op, Routine Given 05/23/2016 8:48 AM EST 2 mg ondansetron (ZOFRAN) injection PRN, Starting on Thu05/23/16 at 0927, Until Thu05/23/16 at 1125, Nausea, Anesthesia Intra-op, Routine Given 05/23/2016 11:02 AM EST 4 mg Given 05/23/2016 9:27 AM EST 4 mg propofol (DIPRIVAN) 10 mg/mL bolus injection (Anesthesia) PRN, Starting on Thu05/23/16 at 0854, Until Thu05/23/16 at 1125, Anesthesia Intra-op Given 05/23/2016 9:48 AM EST 40 mg Given 05/23/2016 8:54 AM EST 220 mg propofol (DIPRIVAN) infusion CONTINUOUS PRN, Starting on Thu05/23/16 at 0901, Until Thu05/23/16 at 1125, Anesthesia Intra-op, Routine Rate/Dose Change 05/23/2016 10:23 AM EST 75 mcg/kg/min 45.9 mL/hr New Bag 05/23/2016 9:01 AM EST 100 mcg/kg/min 61.3 mL/h r documented in this encounter Care Teams Portable Machine Sander Relationship Specialty Start Date End Date Irwin Gonsalez DO [address] [place] [address] PCP - General 05/01/11 documented as of this encounter
--- OUTSIDE RECORDS SUMMARY | 2024-03-10 02:00 | XMS_ITS | Encounter Summary ---
Author Organization [facility] [place] [address] Care Team Providers Care Plate Painter Apprentice Name Role Phone Irwin Gonsalez DO Primary Care Provider Reason for Visit * Auth/Cert Specialty Diagnoses / Procedures Referred By Haresh powers Referred To Contact Diagnoses Restage Crohn's disease (IVCS) Procedures PRO COLONOSCOPY, DIAGNOSTIC COLONOSCOPY, DIAGNOSTIC Referral ID Status Reason Start Date Expiration Date Visits Re quested Visits Authorized [id number] 1 1 Encounter Details Date Type Department Care Team (Late st Contact Info) Description 02/09/2017 2:07 PM EST - 02/09/2017 5:18 PM EST Hospital Encounter [place] [address] Corky Hollingsworth MD [facility] [place] [address] Discharge Disposition: Home Social History Tobacco Use [...] Sign Reading Time Taken Comments Blood Pressure 119/80 02/09/2017 5:00 PM EST Pulse 93 02/09/2017 4:50 PM EST Temperature - - Respiratory Rate 6 02/09/2017 4:45 PM EST Oxygen Saturation 95% 02/09/2017 5:10 PM EST Inhaled Oxygen Concentration - - Weight 103.4 kg (228 lb) 02/09/2017 3:21 PM EST Height 182.9 cm (6') 02/09/2017 3:21 PM EST Body Mass Index 30.92 02/09/2017 3:21 PM EST documented in this encounter Discharge Instructions * Discharge Instructions* Tri Lezama RN - 02/09/2017 4:55 PM EST Colonoscopy What to expect after the procedure You may feel a little more gassy or bloated than usual. This is normal. You should expect the return of normal bowel function in the 2 to 3 days. Activity Because of the sedation that you received your judgement and reaction time are effected ?? Go home and rest quietly for the remainder of the day. You may resume your normal activities tomorrow. ?? Change from one position to the next slowly. You may lose your balance unexpectedly ?? Be careful on stairs, as you may be unsteady on your feet FOR THE NEXT 24 HRS ?? DO NOT DRIVE OR OPERATE ANY MACHINERY ?? DO NOT DRINK ALCOHOLIC BEVERAGES ?? DO NOT SIGN LEGAL DOCUMENTS ?? If you are a smoker: DO NOT SMOKE WHILE YOU ARE ALONE Diet ?? Start by eating small portions of foods that ordinarily will not upset your stomach . Avoid gas producing foods for the next few days ?? Be gentle with what you choose to start with ?? Drink plenty of fluids ( unless your doctor has told you not to). IV SITE-- slight redness, or tenderness is normal. You can use warm compresses if you become concerned. If the tenderness +/or redness increases or foul drainage and a red streak occurs, please contact your PCP immediately When shoud you call for help? Call 911 anytime you think you may need emergency care. For example If you pass out ( loss of consciousness) If you pass maroon or bloody stools If you have severe belly pain Call your doctor now or seek immediate medical care If your stools are black and tarlike If your stools have streaks of blood, but you did not have a biopsy or any polyps removed If you have belly pain, or your belly is swollen and firm If you vomit If you have a fever If you are very dizzy Watch closely for changes in your health, and be sure to contact your doctor if you have any problems Your doctor will let you know when you will need your next colonoscopy. The results of your test and your risk for colorectal cancer will help your doctor decide how often you need to be checked. Thursday-Thursday Same Day Endo [phone] 7a-8p Otherwise contact [phone] and ask to speak to the production control supervisor detention sergeant Follow up care is a garcia part of your treatment and safety. Be sure to make and go to all appointments, and call your doctor if you are having problems. Discharge instructions reviewed with patient who expresses understanding documented in this encounter Medications at Time [...] (before breakfast). azaTHIOprine (IMURAN) 50 mg Tablet Take 5 tablets by mouth daily. 450 tablet 1 01/02/2017 09/05/2017 Adalimumab 40 mg/0.8 mL Pen Injector Kit Inject 0.8 mLs subcutaneously every 14 days. 6 kit 1 04/25/2016 05/05/2017 documented as of this encounter H&P Notes * Corky Hollingsworth MD - 02/09/2017 4:05 PM EST Patient Name: Igor Woodruff Patient Age: 41 y.o. Birthdate: 1975 Admit date: 02/09/2017 Attending Physician: Corky Hollingsworth MD Gastroenterology & Hepatology Pre-Procedure History and Physical Planned Procedure: Colonoscopy: Indication: staging of disease activity on Humira/AZA (Crohn's of small bowel with perianal disease). Patient Active Problem List Diagnosis Code ??? 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 Abnormal liver function test R79.89 ??? GERD (gastroesophageal reflux disease) K21.9 ??? Perianal abscess, right posterior K61.0 ??? Nioehvk-tz-slg K60.3 Medications: Reviewed in EDH No Known Allergies Social History/Family History: Reviewed in EDH. No changes Exam: Most Recent Vitals: 02/09/17 1521 BP: (!) 140/101 Pulse: 80 Resp: 16 SpO2: 97% GEN: NAD, AAOX3 HEENT: NC/AT dryMM, anicteric Chest: CTAB Heart: RRR, nl s1, s2 Abdomen: normal bowel sounds, soft, non tender Assessment and Plan: Proceed with Colonoscopy: ASA Grade: ASA 1 - Normal health patient Mallampati: I (soft palate, uvula, fauces, tonsillar pillars visible) Sedation plan: Moderate Conscious sedation Risks and benefits of the procedure were discussed with the patient. Consent has been signed. documented in this encounter Plan of Treatment Upcoming Encounters Date Type Department Care Team (Latest Contact Info) Description 04/01/2024 12:35 PM EST Hospital Encounter Main [place] [address] Apurva Vivas MD [facility] [address] 04/01/2024 12:35 PM EST - 04/01/2024 2:17 PM EST Surgery Main [place] [address] Apurva Vivas MD [facility] [place] [address] ANORECTAL EXAM, REQUIRING ANESTHESIA, DIAGNOSTIC (WRVU 1.8) 04/26/2024 3:00 PM EST Office Visit [place] [address] Apurva Vivas MD [facility] [place] [address] Scheduled Procedures Name Priority Associated Diagnoses Date/Ti [...] Procedure Name Priority Date/Time Associated Diagnosis Comments COLONOSCOPY, DIAGNOSTIC (WRVU 3.26) 02/09/2017 4:26 PM EST Crohn's disease of small intestine with fistula COLONOSCOPY Routine 02/09/2017 4:16 PM EST documented in this encounter Results * COLONOSCOPY (02/09/2017 4:16 PM EST) COLONOSCOPY [facility] Endoscopy Procedure Date: 02/09/2017 4:16 PM ? Patient Name: Igor Woodruff ? Date of : 1975 ? Age: 41 ? Order #: [id number] ? Instrument Name: [id number] ? Procedure: ? Colonoscopy Indications: ? Disease activity assessment of ? Crohn's disease of the small bowel, ? Assess therapeutic response to ? therapy of Crohn's disease of the ? small bowel Patient Profile: ? This is a 41 year old male. This ? patient has small bowel Crohn's ? disease with perianal involvement, is ? taking adalimumab and azathioprine ? and is asymptomatic. Providers: ? Corky Hollingsworth MD, Melanie Murray ? Bharathi Perez Referring MD: ?Irwin Gonsalez DO Requesting Provider: Angelo Pandey MD Medicines: ? Midazolam 4 mg IV, Fentanyl 200 ? micrograms IV Complications: ? No immediate complications. Procedure: ? Pre-Anesthesia Assessment: ? - Prior to the procedure, a History ? and Physical was performed, and ? patient medications and allergies ? were reviewed. The patient's ? tolerance of previous anesthesia was ? also reviewed. The risks and benefits ? of the procedure and the sedation ? options and risks were discussed with ? the patient. All questions were ? answered, and informed consent was ? obtained. Prior Anticoagulants: The ? patient has taken no previous ? anticoagulant or antiplatelet agents. ? ASA Grade Assessment: I - A normal, ? healthy patient. After reviewing the ? risks and benefits, the patient was ? deemed in satisfactory condition to ? undergo the procedure. ? The procedure, indications, benefits, ? [...] The patient tolerated the ? procedure well. The quality of the ? bowel preparation was evaluated using ? the BBPS ([place] Bowel Preparation ? Scale) with scores of: Right Colon = ? 2 (minor amount of residual staining, ? small fragments of stool and/or ? opaque liquid, but mucosa seen well), ? Transverse Colon = 3 (entire mucosa ? seen well with no residual staining, ? small fragments of stool or opaque ? liquid) and Left Colon = 2 (minor ? amount of residual staining, small ? fragments of stool and/or opaque ? liquid, but mucosa seen well). The ? total BBPS score equals 7. The ? terminal ileum, the rectum and ? Ileocolonic anastomosis were ? photographed. ? Findings: ? The perianal exam findings include seton in posterior ? mid-line. ? There was evidence of a prior end-to-side ? ileo-colonic anastomosis in the ascending colon. This ? was patent and was characterized by a focal area ? along the anastomotic suture line with some friable ? mucosa and two superficial aphthae. The anastomosis ? was otherwise normal and healthy and easily ? traversed. The galen-terminal ileum was examined to 30 ? cm with no evidence of active inflammation or Crohn's ? disease. ? The exam was otherwise normal throughout the examined ? colon. ? The retroflexed view of the distal rectum and anal ? verge was normal and showed no anal or rectal ? abnormalities aside from seton. ? Moderate Sedation: ? I was present during the intraservice time as ? documented by the sedation RN. Impression: ?- Seton in posterior mid-line found ? on perianal exam. ? - Patent end-to-side ileo-colonic ? anastomosis, characterized by focal ? area of friable mucosa at the ? anastomosis. ? - Terminal ileum is otherwise normal. ? - The distal rectum and anal verge ? are otherwise normal on retroflexion ? view. ? - No specimens collected. Recommendation: ?- Follow-up in IBD Clinic. ? - Continue Humira. Can discuss ? stopping Azathioprine with Dr. Pandey. ? Attending Participation: ? I personally performed the entire procedure. ? I was present during the intraservice time as ? documented by the sedation RN. ? Dr. Remy Hollingsworth ____ Corky Hollingsworth MD 02/09/2017 5:02:01 PM Number of Addenda: 0 Note Initiated On: 02/09/2017 4:16 PM PROVATION 02/09/2017 4:16 PM EST Irwin Gonsalez DO GENERAL SURGICAL ORD ERABLES PROVATION documented in this encounter Visit Diagnoses Not on filedocumented in this encounter Administered Medications Inactive Administered Medications - up to 3 most recent administrations Medication Order MAR Action Action Date Dose Rate Site lactated Ringers infusion 100 mL/hr, Intravenous, CONTINUOUS, Starting on Thu02/09/17 at 1545, Until Thu02/09/17 at 1918 documented in this encounter Active and Recently Administered Medications Times are shown in EST. Continuous Medication Order 02/07/2017 02/08/2017 02/09/2017 lactated Ringers infusion 100 mL/hr, Intravenous, CONTINUOUS, Starting on Thu02/09/17 at 1545, Until Thu02/09/17 at 1918 1545 (Due) PRN Medication Order 02/07/2017 02/08/2017 02/09/2017 fentaNYL 50 mcg/mL multi-dose injection (CANCELED) ONCE PRN, Starting on Thu02/09/17 at 1629, Until Thu02/09/17 at 1918, Intra-Operative (Intra-Procedure), Routine 1629 (Given - Provid er: Melanie Perez RN)1632 (Given - Provider: Melanie Perez, RN)1636 (Given - Provider: Melanie Perez, RN)1639 (Given - Provider: Melanie Perez, RN) midazolam (PF) (VERSED) 1 mg/mL multi-dose injection (CANCELED) ONCE PRN, Starting on Thu02/09/17 at 1629, Until Thu02/09/17 at 1918, Intra-Operative (Intra-Procedure), Routine 1629 (Given - Provid er: Melanie Perez, RN)1632 (Given - Provider: Melanie Perez, RN)1635 (Given - Provider: Melanie Perez, RN)1639 (Given - Provider: Melanie Perez RN) documented in this encounter Care Teams Plate Painter Apprentice Relationship Specialty Start Date End Date Irwin Gonsalez DO [address] [place] [address] [address] [facility] [address] [place] [address] PCP - General 05/01/11 documented as of this encounter
--- OUTSIDE RECORDS SUMMARY | 2024-03-10 02:00 | XMS_ITS | Encounter Summary ---
Author Organization [facility] Address [facility] [place] [address] Care Team Providers Care [employer]borne [employer] Name Role Phone Irwin Gonsalez DO Primary Care Provider [phone] Reason for Visit * Reason Comments Follow-up Encounter Details Date Type Department Care Team (Late st Contact Info) Description 2017 11:00 AM EST Office Visit [place] [address] Ramonita Pandey MD [facility] [place] [address] Crohn's disease of ileum with fistula Social History Tobacco Use Types [...] Sign Reading Time Taken Comments Blood Pressure 155/92 2017 10:59 AM EST Pulse 88 2017 10:59 AM EST Temperature - - Respiratory Rate - - Oxygen Saturation - - Inhaled Oxygen Concentration - - Weight 108.3 kg (238 lb 12.8 oz) 2016 10:59 AM EST Height 182.9 cm (6') 2017 10:59 AM EST Body Mass Index 32.39 2017 10:59 AM EST documented in this encounter Patient Instructions * Patient Instructions* Ramonita Pandey MD - 2017 11:00 AM EST # Continue Azathioprine 250 mg per day and Humira and every other week. # Plan on stopping azathioprine at next visit; would consider rescoping ~one year thereafter # Prevnar today; due for second Pneumovax in 2019; # Please have your flu shot. # Check labs today; Then, please have your labs (complete blood count, liver tests, and C-reactive protein) checked every 3-4 months. These can be done at [facility]. After today, next due in May 2017. # Will check Humira blood levels today. # Follow-up with me in the office in 5 months. documented in this encounter Progress Notes * Ramonita Pandey MD - 2017 11:00 AM EST PROBLEM LIST ??? Crohn's ileitis ?? diagnosed [...] GERD (gastroesophageal reflux disease) ? Subjective: Igor presents for f/u of Crohn's disease after starting Humira. He is also on AZA 250 mg per day.Humira 40 mg every other week. He is moving his bowels 2-4 times per day. Frequency is down and stool is more formed but soft. There no bleeding. There is no abdominal pain, nausea, vomiting. Seton is not bothering him too much. Noticed a lot of foul smelling drainage. It is non-tender. There has been no apthous stomatitis, episcleritis, uveitis, inflammatory arthritis, pyoderma gangrenosum, erythema nodosum. ?? REVIEW OF SYSTEMS Notable for the gastrointestinal symptoms as described above. There has been no anorexia, fever, orunintended weight change; no red or painful eyes; no oral ulcers, chronic oral lesions, or chronic sore throat. There is no cough, shortness of breath, palpitations, or chest pain. There is no dysuria, urinary incontinence. No chronic joint pains or history of inflammatory arthritis. There is no recent skin rash. The patient denies psychiatric problems. There are no neurologic symptoms or easy bruising or bleeding. Physical Exam Constitutional: He appears well-developed and well-nourished. Vitals reviewed. Most Recent Vitals: 02/19/17 1059 BP: (!) 155/92 Pulse: 88 Wt Readings from Last 3 Encounters: 02/19/17 (!) 108.3 kg (238 lb 12.8 oz) 02/09/17 (!) 103.4 kg (228 lb) 12/10/16 (!) 102.1 kg (225 lb) ?? 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 He is on Azathioprine andHumira. His perianal disease seems to be well-controlled. Recent remission via endoscopy. Discussed possibly stopping AZA after one year at next visit. Will check labs today including AZA level. Will discussproactive monitoring vs addition of low dose oral MTX at next visit. Due for PCV 13 - will give today. Will need PSV 23 in 2019. We discussed the following recommendations that were printed out for the patient: # Continue Azathioprine 250 mg per day and Humira and every other week. # Plan on stopping azathioprine at next visit; would consider rescoping ~one year thereafter # Prevnar today; due for second Pneumovax in 2019; # Please have your flu shot. # Check labs today; Then, please have your labs (complete blood count, liver tests, and C-reactive protein) checked every 3-4 months. These can be done at [facility]. After today, next due in May 2017. # Will check Humira blood levels today. # Follow-up with me in the office in 5 months. 20 min of this 25 min [id number] visit was spent counseling the patient in the issues outlined above. Angelo Pandey MD [facility] Section of [place]astro[place] [address] documented in this encounter Plan of Treatment Upcoming Encounters Date Type Department Care Team (Latest Contact Info) Description 04/01/2024 12:35 PM EST Hospital Encounter [place] [address] Apurva Vivas MD [facility] [place] [address] 04/01/2024 12:35 PM EST - 04/01/2024 2:17 PM EST Surgery [place] [address] Apurva Vivas MD [facility] [place] [address] ANORECTAL EXAM, REQUIRING ANESTHESIA, DIAGNOSTIC (WRVU 1.8) 04/26/2024 3:00 PM EST Office [place] [address] Apurva Vivas MD [facility] [place] [address] Scheduled Procedures Name Priority Associated Diagnoses Date/Ti me ANORECTAL EXAM, REQUIRING ANESTHESIA, DIAGNOSTIC (WRVU 1.8) perianal crohns disease w/fistula 04/01/2024 12:35 PM EST SURGICAL TREATMENT OF ANAL FISTULA COMPLEX OR MULTIPLE W\WO SETON PLACEMENT (WRVU 6.39) perianal crohns disease w/fistula 04/01/2024 12:35 PM EST documented as of this encounter Goals Goal Patient Goal Type Associated Problems Recent Progress Patient-Stated? Author [facility] Medication Compliance and Understanding Patient Facing [...] Procedure Name Priority Date/Time Associated Diagnosis Comments CRP, ACUTE INFLAMMATION Routine 2017 12:01 PM EST Crohn's disease of ileum with fistula HEMOGRAM Routine 2017 12:01 PM EST Crohn's disease of ileum with fistula DIFFERENTIAL, AUTOMATED Routine 2017 12:01 PM EST Crohn's disease of ileum with fistula CBC (WITH DIFF) Routine 2017 12:01 PM EST Crohn's disease of ileum with fistula HEPATIC FUNCTION PANEL Routine 2017 12:01 PM EST Crohn's disease of ileum with fistula documented in this encounter Results * Differential, Automated (2017 12:01 PM EST) Pathologist [facility] Neutrophil % 47.5 % [facility] Neutrophil Absolute 2.78 1.70 - 6.10 x10(3)/[facility] Lymph % 43.2 % [facility] Lymphocytes Abs 2.5 0.9 - 3.2 x10(3)/[facility] Monocyte % 7.0 % [facility] Monocyte Abs 0.4 0.3 - 0.9 x10(3)/[facility] Eos % 1.5 % [facility] Eosinophils Abs 0.1 0.0 - 0.4 x10(3)/[facility] Basophil % 0.5 % [facility] Baso Absolute 0.0 0.0 - 0.1 x10(3)/[facility] Immature Gran % 0.30 % [facility] Comment: Immature granulocytes(IG's)percentage and absolute count will include metamyelocytes, myelocytes, and promyelocytes. Blood smears from CBCs yielding IG's will be scanned manually for concordance. If this scan disagrees with the automated IG or if promyelocytes are noted, a manual differential will be performed. Immature Gran Absolute 0.02 0.00 - 0.04 x10(3)/[facility] Blood specimen (specimen) 2017 12:01 PM EST 2017 12:09 PM EST Narrative Resulting Agency Comment Spec In Lab L Timothy Pandey MD HEMATOLOGY ORDERABLE S [facility] [place] [address] * (ABNORMAL) Hemogram (2017 12:01 PM EST) Pathologist [facility] White Blood Cell 5.9 4.0 - 9.5 x10(3)/[facility] LAB[facility] Red Blood Cell 4.92 4.58 - 5.54 x10(6)/mc L [facility] Hemoglobin 15.8 13.7 - 16.5 gm/dL [facility] Hematocrit 42.6 40.5 - 48.5 % [facility] Mean Cell Volume 86.6 82.9 - 93.1 fL [facility] Mean Cell Hemoglobin 32.1 27.5 - 32.1 pg [facility] Mean Cell Hemoglobin Concentration 37.1(H) 32.0 - 35.7 gm/dL [facility] Platelet 272 145 - 357 x10(3)/mc L [facility] RDW Standard Deviation 41.3 36.0 - 45.0 fL [facility] RDW coefficient of variation 13.2 11.4 - 13.8 % [facility] Mean Platelet Volume 9.6 7.6 - 12.9 fL [facility] NRBC% auto 0.0 % [facility] NRBC Absolute 0.000 0.000 - 0.000 x10(3)/mc L [facility] Blood specimen (specimen) 2017 12:01 PM EST 2017 12:09 PM EST Narrative Resulting Agency Comment Spec In Lab L Timothy Pandey MD HEMATOLOGY ORDERABLE S Performing Organization Address City/[facility] Co de Phone Number [facility] [place] [address] * CRP, acute inflammation (2017 12:01 PM EST) C-Reactive Protein 0.2 <=4.9 mg/L [facility] Blood specimen (specimen) 2017 12:01 PM EST 2017 12:09 PM EST Narrative Resulting Agency Comment Spec In Lab L Timothy Pandey MD CHEMISTRY ORDERABLES Performing Organization Address [facility]/ZIP Co de Phone Number [facility] [place] [address] * (ABNORMAL) Hepatic Function Panel (2017 12:01 PM EST) Protein, Total 7.2 6.1 - 8.0 gm/dL [facility] Albumin 4.2 3.2 - 5.2 gm/dL [facility] Aspartate Aminotransferase 34 0 - 39 unit/L [facility] Alanine Aminotransferase 68(H) 0 - 55 unit/L [facility] Alkaline Phosphatase 57 40 - 120 unit/L [facility] Bilirubin, Total 1.0 0.2 - 1.3 mg/dL [facility] Bilirubin, Direct 0.2 0.0 - 0.3 mg/dL [facility] Blood specimen (specimen) 2017 12:01 PM EST 2017 12:09 PM EST Narrative Resulting Agency Comment Spec In Lab L Timothy Pandey MD CHEMISTRY ORDERABLES [facility] [place] [address] documented in this encounter Visit Diagnoses Diagnosis Crohn's disease of ileum with fistula documented in this encounter Care Teams [employer] Relationship Specialty Start Date End Date Irwin Gonsalez DO [address] [place] [address] [place] [address] PCP - General 05/01/11 documented as of this encounter
--- OUTSIDE RECORDS SUMMARY | 2024-03-10 02:00 | XMS_ITS | Encounter Summary ---
[place] [address] Care Team Providers Care Crematorium Operator Name Role Phone Irwin Gonsalez DO Primary Care Provider Reason for Visit * Reason Comments Medication Management Encounter Details Date Type Department Care Team (Late st Contact Info) Description 09/26/2016 Specialty [place] [phone] Perri Sousa [facility] Social History Tobacco Use Types Packs/Day Years Used Date Smoking Tobacco: Never Alcohol Use Standard Drinks/Week Comments Yes 1 (1 standard drink = 0.6 oz pur e alcohol) Sex and Gender Information Value Date Recorded Sex Assigned at Male 06/08/2023 4:49 PM EDT Gender Identity Not on file Sexual Orientation Not on file documented as of this encounter Progress Notes * Perri Romo [facility] - 09/26/2016 12:04 PM EDT Clinical Management Plan: Refill Specialty Pharmacy Consultation; Perri Romo [facility] Comprehensive Medication Management (CMM) Igor Sherine Mayitorobertjoshua Mr. Igor Woodruff is a 41 y.o. (1975) male who was contacted in regard to a specialty medication refill reminder. Spoke with spouse regarding ADALIMUMAB. A review of the medication therapy was performed. The medication was Refilled as scheduled, and all medication related questions and concerns were addressed. The specialty pharmacy staff will follow up with the patient 5 prior to next refill. Assessment and Recommendations: Drug Appropriate therapy: yes New medications: none New medical conditions: none New allergies: none Adherence: Medication Adherence Patient reported X missed doses in the last month: 0 Any gaps in refill history greater than 2 weeks in the last 3 months: no Demonstrates understanding of importance of adherence: yes Informant: spouse Reliability of informant: reliable Provider-estimated medication adherence level: good Reasons for non-adherence: no problems identified Support network for adherence: family member Confirmed plan for next specialty medication refill: delivery by pharmacy Refills needed for supportive medications: not needed Are you experiencing any side effects from your medications? no Pt understands no changes to current drug regimen were made at the appointment and that [facility] is providing recommendations (summary located at top of note) for provider review and follow up. Perri Romo [facility] 09/26/16 12:05 PM documented in this encounter Plan of Treatment Upcoming Encounters Date Type Department Care Team (Latest Contact Info) Description 04/01/2024 12:35 PM EST Hospital En[place] [address] Apurva Vivas MD [facility] [place] [address] 04/01/2024 12:35 PM EST - 04/01/2024 2:17 PM EST [place] [address] Apurva Vivas MD [facility] [place] [address] ANORECTAL EXAM, REQUIRING ANESTHESIA, DIAGNOSTIC (WRVU 1.8) 04/26/2024 3:00 PM EST Office [place] [address] Apurva Vivas MD [facility] [place] [address] Scheduled Procedures Name Priority Associated Diagnoses Date/Ti [...] 9:39 PM EDT) Perri Hernandez, [facility] Note: [...] on filedocumented in this encounter Care Teams Crematorium Operator Relationship Specialty Start Date End Date Irwin Gonsalez DO [address] [place] [address] PCP - General 05/01/11 documented as of this encounter
--- OUTSIDE RECORDS SUMMARY | 2024-03-10 02:00 | XMS_ITS | Encounter Summary ---
[place] [address] Care Team Providers Care Express Manager Name Role Phone Irwin Gonsalez DO Primary Care Provider Reason for Visit * Reason Comments Medication Management Encounter Details Date Type Department Care Team (Late st Contact Info) Description 05/08/2017 Specialty [place] [phone] Edvin Hernandez RPH Social History Tobacco Use [...] Progress Notes * Edvin Hernandez RPH - 05/08/2017 10:40 AM EST Specialty Pharmacy Consultation; Edvin Hernandez RPH Comprehensive Medication Management (CMM) Igor Monzonjoshua Diagnosis: Crohn's disease Mr. Igor Woodruff is a 42 y.o. (1975) male who was contacted in regard to specialty medication. Spoke with patient regarding ADALIMUMAB. A review of the medication therapy was performed. The medication was Refilled as scheduled, and all medication related questions and concerns were addressed. The specialty pharmacy staff will follow up with the patient 5-7 days prior to next refill. Is the patient willing to proceed with the Clinical Assessment? Yes Allergies and Drug intolerance: No Known Allergies Medication Reconciliation Discrepancies (compared to [facility] med list) - none Medication Adherence Patient reported X missed [...] any side effects from your medications? no Medication List: Current Outpatient Prescriptions Medication Sig Dispense Refill ??? Adalimumab 40 mg/0.8 mL Pen Injector Kit Inject 0.8 mLs subcutaneously every 14 days. 6 kit 1 ??? azaTHIOprine (IMURAN) 50 mg Tablet Take 5 tablets by mouth daily. 450 tablet 1 ??? acetaminophen (TYLENOL) 325 mg Tablet [...] Vitals: Ht Readings from Last 1 Encounters: 02/19/17 182.9 cm (6') Wt Readings from Last 3 Encounters: 02/19/17 (!) 108.3 kg (238 lb 12.8 oz) 02/09/17 (!) 103.4 kg (228 lb) 12/10/16 (!) 102.1 kg (225 lb) Temp Readings from Last 3 Encounters: 06/04/16 36.7 ??C (98.1 ??F) 05/23/16 36.2 ??C (97.2 ??F) (Temporal) 05/02/16 36.3 ??C (97.3 ??F) (Temporal) BP Readings from Last 3 Encounters: 02/19/17 (!) 155/92 02/09/17 119/80 12/10/16 (!) 147/93 Pulse Readings from Last 3 Encounters: 02/19/17 88 02/09/17 93 12/10/16 86 Pertinent Lab values: Lab Results Component Value Date NA 140 11/01/2010 K 3.4 (L) 11/01/2010 CL 105 11/01/2010 CO2 29 11/01/2010 BUN 7 (L) 11/01/2010 CREATININE 0.84 03/21/2016 GLUCOSE 102 01/07/2010 GLUCFASTING 123 (H) 11/01/2010 CALCIUM 9.0 11/01/2010 Lab Results Component Value Date ALT 68 (H) 2017 AST 34 2017 ALKPHOS 57 2017 BILITOT 1.0 2017 BILIDIR 0.2 2017 ALBUMIN 4.2 2017 PROT 7.2 2017 Lab Results Component Value Date WBC 5.9 2017 HGB 15.8 2017 HCT 42.6 2017 MCV 86.6 2017 PLATELET 272 2017 No results found for: HA1C Immunization History Administered Date(s) Administered ??? Pneumococcal Conjugate (13 Valent) 2017 ??? Pneumococcal Polyvalent 23 10/10/2014 Assessment and Recommendations: Title Type of Medication Management: chronic disease management, targeted medication review Referred By: provider Recipient: beneficiary Provider: plan sponsor pharmacist Method of Contact: by telephone Cognitive Ability: good Drug Treatment Outcomes 02/18/2017 Disease progression: Stable Patient Overall Status: Stable Reviewed in detail with patient: Dose appropriateness based on recommended standard dosing Current medication list including OTC medications Medication and disease problems Allergies Comorbid conditions Past adverse events if any Special needs of the patient including physical and cognitive limitations Goals of therapy and management strategies Warnings, precautions, and contraindications Side effects Drug-drug and drug-food interactions Administration instructions Handling, storage, and disposal of the medication Relevant lab data Appropriate Therapy: Yes Effective: yes - patient notes large improvements in Crohn's symptoms Educational information or adherence tools provided? Yes F/u needed? Yes Received welcome packet: Yes Informed patient of specialty pharmacy services: Yes Recommendations: Patient continues to have a great response to Humira, stating great relief from disease symptoms. No issues with injections and acknowledges site rotation requirements. Patient reports no side effects noted with medication, headaches are greatly reduced at this point, and no increased incidence of illness this winter. Patient states he is feeling pretty damn good. Pt understands no changes to current drug regimen were made at the appointment and that [facility] is providing recommendations (summary located at top of note) for provider review and follow up. Edvin Hernandez RPH 05/08/17 10:44 AM documented in this encounter Plan of Treatment Upcoming Encounters Date Type Department Care Team (Latest Contact Info) Description 04/01/2024 12:35 PM EST Hospital Encounter [place] [address] Apurva Vivas MD [facility] [address] [place] [address] 04/01/2024 12:35 PM EST - 04/01/2024 2:17 PM EST Surgery [place] [address] Apurva Vivas MD [facility] DR [address] [place] [address] ANORECTAL EXAM, REQUIRING ANESTHESIA, DIAGNOSTIC (WRVU 1.8) 04/26/2024 3:00 PM EST Office Visit [place] [address] Apurva Vivas MD [facility] DR [place] [address] Scheduled Procedures Name Priority Associated Diagnoses Date/Ti [...] on filedocumented in this encounter Care Teams Express Manager Relationship Specialty Start Date End Date Irwin Gonsalez DO [address] [place] [address] PCP - General 05/01/11 documented as of this encounter
--- OUTSIDE RECORDS SUMMARY | 2024-03-10 02:00 | XMS_ITS | Encounter Summary ---
Author Organization [facility] Address [facility] [place] [address] Care Team Providers Care Php Consultant Name Role Phone Irwin Gonsalez DO Primary Care Provider [phone] Encounter Details Date Type Department Care Team (Late st Contact Info) Description 06/06/2016 Orders [place] [phone] Alyson Husain Jr., MD [facility] [place] [address] Nephrolithiasis Social History Tobacco Use Types Packs/Day Years [...] PM EST Hospital Encounter [place] [phone] Apurva Vivas MD [facility] [place] [address] 04/01/2024 12:35 PM EST - 04/01/2024 2:17 PM EST Surgery [place] [address] Apurva Vivas MD [facility] [place] [address] ANORECTAL EXAM, REQUIRING ANESTHESIA, DIAGNOSTIC (WRVU 1.8) 04/26/2024 3:00 PM EST Office Visit [place] [phone] Apurva Vivas MD [facility] [place] [address] Scheduled Procedures Name Priority Associated Diagnoses Date/Ti [...] 9:39 PM EDT) No Perri Sousa, [facility] Note: Patient's specific desired goal: Laly would [...] documented as of this encounter Results * US Retroperitoneal Complete (12/10/2016 9:41 AM EDT) Anatomical Region Laterality Modality Abdomen Ultrasound 12/10/2016 9:27 AM EDT Impressions 12/10/2016 10:04 AM EDT ??No nephrolithiasis. No collecting system dilation. ?Roxana Moran MD Electronically Signed Final Report ?? 12/10/2016 10:04 am Narrative 12/10/2016 10:04 AM EDT Renal ? (Signed Final 12/10/2016 10:04 am) PATIENT INFO: ID #: ? [id number] ?: ??[birth year] (41 yrs) Name: ? LALY TOURE ? Visit Date: 12/10/2016 09:27 am PERFORMED BY: Performed By: ? Mary BARRERA, ??Michelle Attending: ?Dean JONES, Roxana Rollins Referred By: ?ALYSON HUSAIN Location: ? [place] SERVICE(S) PROVIDED: ??URETRO - Retroperitoneal Complete - [id number] ? [id number] INDICATIONS: ??Nephrolithiasis COMPARISON: CT scan: 03/21/16 RIGHT [...] 12/10/2016 10:04 am) PATIENT INFO: ID #: [id number] : [birth year] (41 yrs) Name: LALY TOURE Visit Date: 12/10/2016 09:27 am PERFORMED BY: Performed By: Michelle Hernandez RDMS Attending: Roxana Moran MD Referred By: ALYSON HUSAIN JR Location: [place] SERVICE(S) PROVIDED: URETRO - Retroperitoneal Complete - [id number] INDICATIONS: Nephrolithiasis COMPARISON: CT scan: 03/21/16 RIGHT [...] Signed Final Report 12/10/2016 10:04 am Alyson Hsuain Jr., MD IM US GEN ORDERAB LES documented in this encounter Visit Diagnoses Diagnosis Nephrolithiasis Calculus of kidney Nephrolithiasis Calculus of kidney documented in this encounter Care Teams Php Consultant Relationship Specialty Start Date End Date Irwin Gonsalez DO [address] [place] [address] [address] [facility] [address] [place] [address] PCP - General 05/01/11 documented as of this encounter
--- OUTSIDE RECORDS SUMMARY | 2024-03-10 02:00 | XMS_ITS | Encounter Summary ---
[place] [address] Care Team Providers Care Roll Builder Name Role Phone Irwin Gonsalez DO Primary Care Provider [phone] Reason for Visit * Reason Comments Medication Management Encounter Details Date Type Department Care Team (Late st Contact Info) Description 09/28/2017 Specialty [place] [phone] Edvin Hernandez RPH Social History Tobacco Use [...] Progress Notes * Edvin Hernandez RPH - 09/28/2017 9:30 AM EDT Clinical Management Plan: Refill Specialty Pharmacy Consultation; Edvin Hernandez RPH Comprehensive Medication Management (CMM) Igor Sherine [...] to [facility] med list) - none New medications: no [...] review and follow up. Edvin Hernandez RPH 09/28/17 9:30 AM documented in this encounter Plan of Treatment Upcoming Encounters Date Type Department Care Team (Latest Contact Info) Description 04/01/2024 12:35 PM [facility] Hospital Encounter [place] [address] Apurva Vivas MD [facility] [place] [address] 04/01/2024 12:35 PM EST - 04/01/2024 2:17 PM EST Surgery [place] [address] Apurva Vivas MD [facility] [place] [address] ANORECTAL EXAM, REQUIRING ANESTHESIA, DIAGNOSTIC (WRVU 1.8) 04/26/2024 3:00 PM EST Office [place] [address] Apurva Vivas MD [facility] [place] [address] Scheduled Procedures Name Priority Associated Diagnoses Date/Ti me ANORECTAL EXAM, REQUIRING ANESTHESIA, DIAGNOSTIC (WRVU 1.8) perianal crohns disease w/fistula 04/01/2024 12:35 PM EST SURGICAL TREATMENT OF ANAL FISTULA COMPLEX OR MULTIPLE W\WO SETON PLACEMENT (WRVU 6.39) perianal crohns disease w/fistula 04/01/2024 12:35 PM EST documented as of this encounter Goals Goal Patient Goal Type Associated Problems Recent Progress Patient-Stated? Author [facility] Medication Compliance and Understanding Patient [...] on filedocumented in this encounter Care Teams Roll Builder Relationship Specialty Start Date End Date Irwin Gonsalez DO [address] [place] [address] [address] [facility] [address] [place] [address] PCP - General 05/01/11 documented as of this encounter
--- OUTSIDE RECORDS SUMMARY | 2024-03-10 02:00 | XMS_ITS | Encounter Summary ---
[place] [address] Care Team Providers Care Regional Driver Name Role Phone Irwin Gonsalez DO Primary Care Provider [phone] Reason for Visit * Reason Comments Medication Management Encounter Details Date Type Department Care Team (Late st Contact Info) Description 12/23/2016 Specialty [place] [phone] Perri Sousa [facility] Social History Tobacco Use [...] this encounter Progress Notes * Perri Romo RPH - 12/23/2016 10:42 AM EDT Clinical Management Plan: Refill Specialty Pharmacy Consultation; Perri Romo Sunday Comprehensive Medication Management (CMM) Igor Sherine Kacy Mr. Igor Woodruff is a 41 y.o. (1975) male who called in a refill for their specialty prescription, ADALIMUMAB, before a refill reminder was needed from the [facility]. The medication was refilled on 12/20 for a 28 day supply for $5 copay. Adherence: Gaps in fill history: no The specialty pharmacy staff will follow up with the patient 5-7 days prior to next refill for reminder if needed. Perri Romo RPH 12/23/16 10:43 AM documented in this encounter Plan of Treatment Upcoming Encounters Date Type Department Care Team (Latest Contact Info) Description 04/01/2024 12:35 PM EST Hospital Encounter [place] [address] Apurva Vivas MD [facility] [place] [address] 04/01/2024 12:35 PM EST - 04/01/2024 2:17 PM EST Surgery [place] [address] Apurva Vivas MD [facility] [place] [address] ANORECTAL EXAM, REQUIRING ANESTHESIA, DIAGNOSTIC (WRVU 1.8) 04/26/2024 3:00 PM EST Office [place] [address] Apurva Vivas MD [facility] [place] [address] Scheduled Procedures Name Priority Associated Diagnoses Date/Ti [...] on filedocumented in this encounter Care Teams Regional Driver Relationship Specialty Start Date End Date Irwin Gonsalez DO [address] [place] [address] PCP - General 05/01/11 documented as of this encounter
--- OUTSIDE RECORDS SUMMARY | 2024-03-10 02:00 | XMS_ITS | Encounter Summary ---
Author Organization [facility] [place] [address] Care Team Providers Care Crisis Intervention Specialist Name Role Phone Irwin Gonsalez DO Primary Care Provider [phone] Reason for Visit * Reason Onset Date Comments Medication Refill 01/02/2017 Encounter Details Date Type Department Care Team (Late st Contact Info) Description 01/02/2017 Refill [place] [address] Shannan Barnard RN Social History [...] PM EST Hospital Encounter [place] [phone] Apurva Vivas MD [facility] [place] [place] [address] 04/01/2024 12:35 PM EST - 04/01/2024 2:17 PM EST Surgery [place] [address] Apurva Vivas MD [facility] [place] [address] ANORECTAL EXAM, REQUIRING ANESTHESIA, DIAGNOSTIC (WRVU 1.8) 04/26/2024 3:00 PM EST Office [place] [phone] Apurva Vivas MD [facility] [place] [address] Scheduled Procedures Name Priority Associated Diagnoses Date/Ti [...] PM EDT) Perri Hernandez, [facility] Note: Patient's specific [...] on filedocumented in this encounter Care Teams Crisis Intervention Specialist Relationship Specialty Start Date End Date Irwin Gonsalez DO [address] [place] [address] PCP - General 05/01/11 documented as of this encounter
--- OUTSIDE RECORDS SUMMARY | 2024-03-10 02:00 | XMS_ITS | Encounter Summary ---
[place] [address] Care Team Providers Care Seasonal Recruiter Name Role Phone Irwin Gonsalez DO Primary Care Provider Reason for Visit * Reason Comments Medication Management Encounter Details Date Type Department Care Team (Late st Contact Info) Description 08/31/2017 Specialty [place] [phone] Karishma Muir [facility] Social History Tobacco Use Types Packs/Day Years [...] this encounter Progress Notes * Karishma Noel [facility] - 08/31/2017 10:29 AM EDT Clinical Management Plan: Refill of Humira Specialty Pharmacy Consultation; Karishma Noel [facility] Comprehensive Medication Management (CMM) Igor Sherine Mayitorobertjoshua Mr. Igor Woodruff is a 42 y.o. (1975) male who was contacted in regard to a specialty medication refill reminder. Spoke with patient regarding ADALIMUMAB. A review of the medication therapywas performed. The medication was Refilled as scheduled, and all medication related questions and concerns were addressed. His next injection is due on Thursday, 09/06. The specialty pharmacy staff willfollow up with the patient 7 days prior to next refill. Assessment and Recommendations: Title Cognitive Ability: good Allergies and Drug intolerance: No Known Allergies Medication Reconciliation Discrepancies (compared to [facility] med list) -none New medications: no New [...] review and follow up. Karishma Noel RPH 08/31/17 10:29 AM documented in this encounter Plan of Treatment Upcoming Encounters Date Type Department Care Team (Latest Contact Info) Description 04/01/2024 12:35 PM EST Hospital Encounter [place] [address] Apurva Vivas MD [facility] [place] [address] 04/01/2024 12:35 PM EST - 04/01/2024 2:17 PM EST Surgery [place] [address] Apurva Vivas MD [facility] [place] [address] ANORECTAL EXAM, REQUIRING ANESTHESIA, DIAGNOSTIC (WRVU 1.8) 04/26/2024 3:00 PM EST Office [place] [address] Apurva Vivas MD [facility] [place] [address] Scheduled Procedures Name Priority Associated Diagnoses Date/Ti me ANORECTAL EXAM, REQUIRING ANESTHESIA, DIAGNOSTIC (WRVU 1.8) perianal crohns disease w/fistula 04/01/2024 12:35 PM EST SURGICAL TREATMENT OF ANAL FISTULA COMPLEX OR MULTIPLE W\WO SETON PLACEMENT (WRVU 6.39) perianal crohns disease w/fistula 04/01/2024 12:35 PM EST documented as of this encounter Goals Goal Patient Goal Type Associated Problems Recent Progress Patient-Stated? Author [facility] Medication Compliance and Understanding Patient Facing [...] on filedocumented in this encounter Care Teams Seasonal Recruiter Relationship Specialty Start Date End Date Irwin Gonsalez DO [address] [place] [address] [address] [facility] 1 [place] [address] PCP - General 05/01/11 documented as of this encounter
--- OUTSIDE RECORDS SUMMARY | 2024-03-10 02:00 | XMS_ITS | Encounter Summary ---
[place] [address] Care Team Providers Care Specialist Managers Name Role Phone Irwin Gonsalez DO Primary Care Provider [phone] Reason for Visit * Reason Comments Medication Management Encounter Details Date Type Department Care Team (Late st Contact Info) Description 08/03/2017 Specialty [place] [phone] Karishma Muir [facility] Social History Tobacco Use Types [...] this encounter Progress Notes * Karishma Noel [facility] - 08/03/2017 10:37 AM EDT Clinical Management Plan: Refill of Humira Specialty Pharmacy Consultation; Karishma Noel [facility] Comprehensive Medication Management (CMM) Igor [...] Known Allergies Medication Reconciliation Discrepancies (compared to [facility] med list) -none New medications: no [...] were made at the appointment and that [facility] is providing recommendations (summary located at top of note) for provider review and follow up. Karishma Noel RPH 08/03/17 10:38 AM documented in this encounter Plan of Treatment Upcoming Encounters Date Type Department Care Team (Latest Contact Info) Description 04/01/2024 12:35 PM EST Hospital Encounter [place] [address] Apurva Vivas MD [facility] [place] [address] 04/01/2024 12:35 PM EST - 04/01/2024 2:17 PM EST [place] [address] Apurva Vivas MD [facility] [place] [address] ANORECTAL EXAM, REQUIRING ANESTHESIA, DIAGNOSTIC (WRVU 1.8) 04/26/2024 3:00 PM EST Office [place] [address] Apurva Vivas MD [facility] [place] [address] Scheduled Procedures Name Priority Associated Diagnoses Date/Ti me ANORECTAL EXAM, REQUIRING ANESTHESIA, DIAGNOSTIC (WRVU 1.8) perianal crohns disease w/fistula 04/01/2024 12:35 PM EST SURGICAL TREATMENT OF ANAL FISTULA COMPLEX OR MULTIPLE W\WO SETON PLACEMENT (WRVU 6.39) perianal crohns disease w/fistula 04/01/2024 12:35 PM EST documented as of this encounter Goals Goal Patient Goal Type Associated Problems Recent Progress Patient-Stated? Author [facility] Medication Compliance and Understanding Patient [...] on filedocumented in this encounter Care Teams Specialist Managers Relationship Specialty Start Date End Date Irwin Gonsalez DO [address] [place] [address] PCP - General 05/01/11 documented as of this encounter
--- OUTSIDE RECORDS SUMMARY | 2024-03-10 02:00 | XMS_ITS | Encounter Summary ---
[place] [address] Care Team Providers Care Contracts Paralegal Name Role Phone Irwin Gonsalez DO Primary Care Provider Reason for Visit * Reason Comments Medication Management Encounter Details Date Type Department Care Team (Late st Contact Info) Description 10/29/2016 Specialty [place] [phone] Perri Sousa [facility] Social History Tobacco Use Types Packs/Day [...] this encounter Progress Notes * Perri Romo [facility] - 10/29/2016 11:29 AM EDT Specialty Pharmacy Consultation; Perri Romo [facility] Comprehensive Medication Management (CMM) Igor Sherine Kacy Mr. Iogr Woodruff is a 41 y.o. (1975) male who was contacted in regard to specialty medication. Spoke with patient regarding ADALIMUMAB. A review of the medication therapy was performed. The medication was Refilled as scheduled, and all medication related questions and concerns were addressed. The specialty pharmacy staff will follow up with the patient 5-7 days prior to next refill. Allergies and Drug intolerance: No Known Allergies Medication Reconciliation Discrepancies (compared to [facility] med list) -none Medication Adherence Patient [...] experiencing any side effects from your medications? Yes - Igor is experiencing a headache. This occurs once a week. He feels pain behind his eyes. He uses Advil to treat. I discussed this further with Igor's . Igor will try to record when he is having the headaches and see if he can narrow down a trigger (dehydration, allergies, stress, etc.). It may very well be from the Humira. Igor does believe this is a tolerable side effect for now. We will continue to monitor. Medication List: Current Outpatient Prescriptions Medication Sig Dispense Refill ??? acetaminophen (TYLENOL) 325 mg Tablet Take 2 tablets by mouth every 4 hours as needed for Pain.30 tablet 1 ??? azaTHIOprine (IMURAN) 50 mg Tablet TAKE 5 TABLETS BY MOUTH EVERY DAY DIRECTED 150 tablet 5 ??? Adalimumab 40 mg/0.8 mL Pen Injector Kit Inject 0.8 mLs subcutaneously every 14 days. 6 kit 1 ??? alfuzosin (UROXATRAL) 10 mg Tablet Sustained Release 24 hr TAKE ONE TABLET BY MOUTH EVERY DAY 12 ??? multivitamin (MULTIPLE VITAMIN) tablet Take 1 tablet by mouth daily. ??? esomeprazole (NEXIUM) 20 mg capsule Take 20 mg by mouth every morning (before breakfast). No current facility-administered medications for this visit. Most Recent Vitals: Ht Readings from Last 1 Encounters: 08/18/16 182.9 cm (6') Wt Readings from Last 3 Encounters: 10/24/16 (!) 104.7 kg (230 lb 14.4 oz) 08/18/16 (!) 103.9 kg (229 lb) 05/23/16 (!) 102.1 kg (225 lb) Temp Readings from Last 3 Encounters: 06/04/16 36.7 ??C (98.1 ??F) 05/23/16 36.2 ??C (97.2 ??F) (Temporal) 05/02/16 36.3 ??C (97.3 ??F) (Temporal) BP Readings from Last 3 Encounters: 10/24/16 146/86 08/18/16 (!) 137/98 06/04/16 (!) 149/100 Pulse Readings from Last 3 Encounters: 10/24/16 91 08/18/16 80 06/04/16 87 Pertinent Lab values: Lab Results Component Value Date NA 140 11/01/2010 K 3.4 (L) 11/01/2010 CL 105 11/01/2010 CO2 29 11/01/2010 BUN 7 (L) 11/01/2010 CREATININE 0.84 03/21/2016 GLUCOSE 102 01/07/2010 GLUCFASTING 123 (H) 11/01/2010 CALCIUM 9.0 11/01/2010 Lab Results Component Value Date ALT 50 08/18/2016 AST 24 08/18/2016 ALKPHOS 53 08/18/2016 BILITOT 1.1 08/18/2016 BILIDIR 0.2 08/18/2016 ALBUMIN 4.1 08/18/2016 PROT 6.9 08/18/2016 Lab Results Component Value Date WBC 4.6 08/18/2016 HGB 14.5 08/18/2016 HCT 40.7 08/18/2016 MCV 87.0 08/18/2016 PLATELET 242 08/18/2016 No results found for: HA1C Immunization History Administered Date(s) Administered ??? Pneumococcal Polyvalent 23 10/10/2014 Assessment and Recommendations: General Medication Management Type of medication management: chronic disease management, targeted medication review Referred by: provider Recipient: beneficiary Provider: plan sponsor pharmacist Visit type: follow-up Method of contact: by telephone Cognitive ability: good Patient Counseling Counseled the patient on the following: medication safety precautions education provided, doses and administration discussed, safe handling, storage, and disposal discussed, possible adverse effects and management discussed, possible drug and prescription drug interactions discussed, possible drug and OTC drug and food interactions discussed, lab monitoring and follow-up discussed, adherence and missed doses discussed, pharmacy contact information discussed, health goals discussed, reminder to refill or picker tender helper medication discussed Drug Medication Management Summary Topics discussed: medication safety precautions education provided, doses and administration discussed, safe handling, storage, and disposal discussed, possible adverse effects and management discussed, possible drug and prescription drug interactions discussed, possible drug and OTC drug and food interactions discussed, lab monitoring and follow-up discussed, adherence and missed doses discussed, pharmacy contact information discussed, health goals discussed, reminder to refill or picker tender helper medication discussed Time spent: 1-15 min Reviewed in detail with patient: Dose appropriateness [...] disposal of the medication Relevant lab data Educational information or adherence tools provided? no F/u needed? yes - refill reminders Received welcome packet: yes Informed patient of specialty pharmacy services: yes Recommendations: Rx is appropriate as written. We will monitor Igor for worsening headaches. It is hard to determine if this is caused by the Humira. His headache sounds like a cluster headache. He may need a referral if these continue. Pt understands no changes to current drug regimen were made at the appointment and that [facility] is providing recommendations (summary located at top of note) for provider review and follow up. Perri Romo RPH 10/29/16 11:49 AM documented in this encounter Plan of Treatment Upcoming Encounters Date Type Department Care Team (Latest Contact Info) Description 04/01/2024 12:35 PM EST Hospital Encounter [place] [address] Apurva Vivas MD [facility] [place] [address] 04/01/2024 12:35 PM EST - 04/01/2024 2:17 PM EST Surgery [place] [address] Apurva Vivas MD [facility] [place] [address] ANORECTAL EXAM, REQUIRING ANESTHESIA, DIAGNOSTIC (WRVU 1.8) 04/26/2024 3:00 PM EST Office Visit General Surgery at [facility] [place] [phone] Apurva Vivas MD [facility] [place] [address] Scheduled Procedures Name Priority Associated Diagnoses Date/Ti [...] PM EDT) No Perri Sousa, [facility] Note: Patient's [...] on filedocumented in this encounter Care Teams Contracts Paralegal Relationship Specialty Start Date End Date Irwin Gonsalez DO [address] [place] [address] [address] [place] [address] PCP - General 05/01/11 documented as of this encounter
--- OUTSIDE RECORDS SUMMARY | 2024-03-10 02:00 | XMS_ITS | Encounter Summary ---
[place] [address] Care Team Providers Care Bale Breaker Operator Name Role Phone Irwin Gonsalez DO Primary Care Provider Reason for Visit * Reason Comments Medication Management Encounter Details Date Type Department Care Team (Late st Contact Info) Description 01/26/2017 Specialty [place] [phone] Adelaide Sánchez Social History Tobacco Use Types [...] Progress Notes * Adelaide Gonzales RPH - 01/26/2017 3:56 PM EST Clinical Management Plan: Refill Specialty Pharmacy Consultation; Adelaide Gonzales RPH Comprehensive Medication Management (CMM) Igor Woodruff Mr. Igor Woodruff is a 41 y.o. (1975) male who called in a refill for their specialty prescription, HUMIRA, before a refill reminder was needed from the [facility]. The medication was refilled on 01/21 for a 28 day supply for $5 copay. Adherence: Gaps in fill history: none The specialty pharmacy staff will follow up with the patient 5-7 days prior to next refill for reminder if needed. Adelaide Gonzales RPH 01/26/17 3:57 PM documented in this encounter Plan of Treatment Upcoming Encounters Date Type Department Care Team (Latest Contact Info) Description 04/01/2024 12:35 PM EST Hospital Encounter [place] [address] Apurva Vivas MD [facility] [place] [address] 04/01/2024 12:35 PM EST - 04/01/2024 2:17 PM EST Surgery [place] [address] Apurva Vivas MD [facility] [place] [address] ANORECTAL EXAM, REQUIRING ANESTHESIA, DIAGNOSTIC (WRVU 1.8) 04/26/2024 3:00 PM EST Office [place] [address] Apurva Vivas MD [facility] [place] [address] Scheduled Procedures Name Priority Associated Diagnoses Date/Ti [...] on filedocumented in this encounter Care Teams Bale Breaker Operator Relationship Specialty Start Date End Date Irwin Gonsalez DO [address] [facility] [address] [place] [address] PCP - General 05/01/11 documented as of this encounter
--- OUTSIDE RECORDS SUMMARY | 2024-03-10 02:00 | XMS_ITS | Encounter Summary ---
Author Organization [facility] Address [facility] [place] [address] Care Team Providers Care Assistant Secretary Name Role Phone Irwin Gonsalez DO Primary Care Provider Reason for Visit * Reason Comments Nephrolithiasis Encounter Details Date Type Department Care Team (Late st Contact Info) Description 12/10/2016 10:00 AM EDT [place] [address] Dougie Husain Jr., MD [facility] [place] [address] Nephrolithiasis Social History Tobacco Use Types Packs/Day [...] Sign Reading Time Taken Comments Blood Pressure 147/93 12/10/2016 10:14 AM EDT Pulse 86 12/10/2016 10:14 AM EDT Temperature - - Respiratory Rate - - Oxygen Saturation 98% 12/10/2016 10:14 AM EDT Inhaled Oxygen Concentration - - Weight 102.1 kg (225 lb) 12/10/2016 10:14 AM EDT Height - - Body Mass Index 30.52 08/18/2016 3:55 PM EDT documented in this encounter Progress Notes * Dougie Husain Jr., MD - 12/10/2016 10:00 AM EDT HPI: Igor Woodruff returns for follow up regarding CaOx urolithiais. ?? This pleasant 41 year old gentleman has a history of Crohn's disease and has previously undergone resection of terminal ileum. He underwent left ureteroscopy on 05/23/16. Intraoperative findings were notable for a left renal stone seen in lower pole calyx, which was moved to upper pole, fragmented with laser, and all fragments were removed. No further stones seen in renal pelvis or ureter. He had an unremarkable postoperative course, tolerated the stent well and has remained well since stent removal. No interval stone passage. Review of Systems Gastrointestinal: Negative for abdominal pain. Genitourinary: Negative for flank pain. ?? PMHx: Crohn's disease; nephrolithiasis PSHx: ureteroscopy; small bowel resection; left URS SocHx: no tobacco ?? Physical Exam Constitutional: He is oriented to person, place, and time. He appears well- developed and well-nourished. No distress. HENT: Head: Normocephalic and atraumatic. Cardiovascular: Normal rate. Abdominal: Soft. He exhibits no distension. There is no tenderness. Genitourinary: Genitourinary Comments: No CVA tenderness to percussion bilaterally Neurological: He is alert and oriented to person, place, and time. Skin: He is not diaphoretic. Psychiatric: He has a normal mood and affect. His behavior is normal. Vitals reviewed. Imaging studies: I independently reviewed the renal ultrasound from today. This reveals no evidenceof hydronephrosis, hydroureter, or new stones. ?? Stone analysis: 90% Calcium oxalate monohydrate; 10% Calcium oxalate dihydrate ?? Impression/Plan: CaOx urolithiasis, remains stone free, without residual hydronephrosis. 1) CaOx urolithiasis. We have reviewed general dietary modifications for those with CaOx stones. Wespecifically discussed the role of a low oxalate, low sodium diet with increased hydration, targeting 2 liters urine output daily. We again discussed the estimated 50% recurrence rate, as well as the role of metabolic evaluation given his Crohn's disease. In light of no recurrence, he declines metabolic evaluation and opts for follow up with renal u/s in 1-2 years, sooner if needed. documented in this encounter Plan of Treatment Upcoming Encounters Date Type Department Care Team (Latest Contact Info) Description 04/01/2024 12:35 PM EST Hospital Encounter [place] [address] Apurva Vivas MD [facility] [place] [address] 04/01/2024 12:35 PM EST - 04/01/2024 2:17 PM EST Surgery [place] [address] Apurva Vivas MD [facility] [place] [address] ANORECTAL EXAM, REQUIRING ANESTHESIA, DIAGNOSTIC (WRVU 1.8) 04/26/2024 3:00 PM EST Office [place] [address] Apurva Vivas MD [facility] [place] [address] Scheduled Procedures Name Priority Associated Diagnoses Date/Ti [...] 9:39 PM EDT) No Perri Sousa, [facility] Note: Patient's specific desired goal: Igor would [...] as of this encounter Visit Diagnoses Diagnosis Nephrolithiasis Calculus of kidney documented in this encounter Care Teams Assistant Secretary Relationship Specialty Start Date End Date Irwin Gonsalez DO [address] [place] [address] [address] [place] [address] PCP - General 05/01/11 documented as of this encounter
--- OUTSIDE RECORDS SUMMARY | 2024-03-10 02:00 | XMS_ITS | Encounter Summary ---
Author Organization [facility] Address [facility] [place] [address] Care Team Providers Care Assessment Analyst Name Role Phone Irwin Gonsalez DO Primary Care Provider [phone] Reason for Visit * Reason Onset Date Comments Prior Authorization 12/29/2016 Encounter Details Date Type Department Care Team (Late st Contact Info) Description 12/29/2016 Telephone Dermatology at [facility] [address] [place] [phone] Bharathi Foote MD [facility] [address] [place] [address] Prior Authorization Social History Tobacco Use Types [...] encounter Miscellaneous Notes * Telephone Encounter - Missy Jacobs - 12/29/2016 3:32 PM EDT Patient needs a new prior authorization for Botox- Hyperhydrosis. Insurance information is up to date in the computer. Please start the process! Thank you * Telephone Encounter - Missy Jacobs - 12/29/2016 2:25 PM EDT I called Igor Woodruff to inform him we will need to do a Prior authorization for botox since his in April 2016. Asked for a call back so we can make sure all his insurance information is up to date. documented in this encounter Plan of Treatment Upcoming Encounters Date Type Department Care Team (Latest Contact Info) Description 04/01/2024 12:35 PM EST Hospital Encounter [place] [address] Apurva Vivas MD [facility] [place] [address] 04/01/2024 12:35 PM EST - 04/01/2024 2:17 PM EST Surgery [place] [address] Apurva Vivas MD [facility] [place] [address] ANORECTAL EXAM, REQUIRING ANESTHESIA, DIAGNOSTIC (WRVU 1.8) 04/26/2024 3:00 PM EST Office [place] [phone] Apurva Vivas MD [facility] [place] [address] Scheduled Procedures Name Priority Associated Diagnoses Date/Ti [...] track( 017 9:39 PM EDT) Perri Hernandez, [facility] Note: Patient's specific desired goal: [...] on filedocumented in this encounter Care Teams Assessment Analyst Relationship Specialty Start Date End Date Irwin Gonsalez DO [address] [place] [address] PCP - General 05/01/11 documented as of this encounter
--- OUTSIDE RECORDS SUMMARY | 2024-03-10 02:00 | XMS_ITS | Encounter Summary ---
Author Organization [facility] Address [facility] [place] [address] Care Team Providers Care Graduate Nurse Name Role Phone Irwin Gonsalez DO Primary Care Provider Reason for Visit * Reason Comments Follow-up Encounter Details Date Type Department Care Team (Late st Contact Info) Description 08/18/2016 4:00 PM EDT Office Visit [place] [address] Ramonita Pandey MD [facility] [place] [address] Crohn's disease of small intestine with fistula (Primary Dx) Social History Tobacco Use Types Packs/Day Years [...] Sign Reading Time Taken Comments Blood Pressure 137/98 08/18/2016 3:55 PM EDT Pulse 80 08/18/2016 3:55 PM EDT Temperature - - Respiratory Rate - - Oxygen Saturation - - Inhaled Oxygen Concentration - - Weight 103.9 kg (229 lb) 08/18/2016 3:55 PM EDT Height 182.9 cm (6') 08/18/2016 3:55 PM EDT Body Mass Index 31.06 08/18/2016 3:55 PM EDT documented in this encounter Patient Instructions * Patient Instructions* Ramonita Pandey MD - 08/18/2016 4:00 PM EDT # Continue Azathioprine 250 mg per day and Humira and every other week. # Consider icing your abdomen prior to administration of Humira. # Check labs today; Then, please have your labs (complete blood count, liver tests, and C-reactive protein) checked once every month for 2 months and then every 3-4 months. These can be done at [facility]. # Follow-up as planned with Dr. Vivas in October # Plan on repeat colonoscopy ~6 months after starting Humira. Will scheduled for November. # Follow-up with me after the colonoscopy in Nov or December. documented in this encounter Progress Notes * Ramonita Pandey MD - 08/18/2016 4:00 PM EDT PROBLEM LIST ??? Crohn's ileitis ?? [...] ?? Colonoscopy 02/2013 - no active disease. ??? Abnormal liver function test ??? GERD (gastroesophageal reflux disease) ? Subjective: Igor presents for f/u of Crohn's disease after starting Humira. He is also on AZA 250 mg per day.Humira 40 mg every other week. He is having pain with injections of Humira. He is moving his bowels 2-3 times per day. Frequency is down and stool is more formed. There is no abdominal pain, nausea, vomiting. [...] Exam Constitutional: He appears well-developed and well-nourished. No distress. Eyes: Conjunctivae are normal. No scleral icterus. Neck: Neck supple. Cardiovascular: Normal rate and regular rhythm. Pulmonary/Chest: Effort normal and breath sounds normal. No respiratory distress. Abdominal: Soft. Bowel sounds are normal. He exhibits no distension and no mass. There is no tenderness. There is no guarding. Genitourinary: Genitourinary Comments: Perianal exam normal except for seton in the R posterlat quadrant. Non-tender. Unable to express any discharge. VLADIMIR normal without focal tenderness or fluctuance Lymphadenopathy: He has no cervical adenopathy. Neurological: He is alert. ?? 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 He is on Azathioprine and just started Humira. His perianal disease seems to be well-controlled. My exam today was reassuring. He will continue the Humira and follow-up with Dr. Vivas in Oct as previously scheduled. For his Crohn's, recommended continuing his current meds. Will restage with colo in Nov and see him in the office afterwards. Could discuss stopping AZA and changing to oral MTX weekly. Asked him to be sure to get labs routinely. Will get some here today and then at [facility]. We discussed the following recommendations that were printed out for the patient: # Continue Azathioprine 250 mg per day and Humira and every other week. # Consider icing your abdomen prior to administration of Humira. # Check labs today; Then, please have your labs (complete blood count, liver tests, and C-reactive protein) checked once every month for 2 months and then every 3-4 months. These can be done at [facility]. # Follow-up as planned with Dr. Vivas in October # Plan on repeat colonoscopy ~6 months after starting Humira. Will scheduled for November. # Follow-up with me after the colonoscopy in Nov or December. Angelo Pandey MD Supervisor [employer] cut examiner Section of Gastroenterology [place] [address] documented in this encounter Plan of Treatment Upcoming Encounters Date Type Department Care Team (Latest Contact Info) Description 04/01/2024 12:35 PM EST Hospital Encounter [place] [address] Apurva Vivas MD [facility] [place] [address] 04/01/2024 12:35 PM EST - 04/01/2024 2:17 PM EST Surgery [place] [phone] Apurva Vivas MD [facility] [place] [address] ANORECTAL EXAM, REQUIRING ANESTHESIA, DIAGNOSTIC (WRVU 1.8) 04/26/2024 3:00 PM EST Office Visit [place] [address] Apurva Vivas MD [facility] [place] [address] Scheduled Procedures Name Priority Associated Diagnoses Date/Ti me ANORECTAL EXAM, REQUIRING ANESTHESIA, DIAGNOSTIC (WRVU 1.8) perianal crohns disease w/fistula 04/01/2024 12:35 PM EST SURGICAL TREATMENT OF ANAL FISTULA COMPLEX OR MULTIPLE W\WO SETON PLACEMENT (WRVU 6.39) perianal crohns disease w/fistula 04/01/2024 12:35 PM EST documented as of this encounter Goals Goal Patient Goal Type Associated Problems Recent Progress Patient-Stated? Author [facility] Medication Compliance and Understanding Patient Facing Action Plan On track( 017 9:39 PM EDT) No Perri Sousa, [facility] Note: Patient's specific desired goal: [...] Associated Diagnosis Comments CRP, ACUTE INFLAMMATION Routine 08/18/2016 5:08 PM EDT Crohn's disease of small intestine with fistula HEMOGRAM Routine 08/18/2016 5:08 PM EDT Crohn's disease of small intestine with fistula DIFFERENTIAL, AUTOMATED Routine 08/18/2016 5:08 PM EDT Crohn's disease of small intestine with fistula CBC (WITH DIFF) Routine 08/18/2016 5:08 PM EDT Crohn's disease of small intestine with fistula HEPATIC FUNCTION PANEL Routine 08/18/2016 5:08 PM EDT Crohn's disease of small intestine with fistula documented in this encounter Results * Differential, Automated (08/18/2016 5:08 PM EDT) Neutrophil % 43.5 % [facility] Neutrophil Absolute 1.98 1.70 - 6.10 x10(3)/[facility] Lymph % 45.7 % [facility] Lymphocytes Abs 2.1 0.9 - 3.2 x10(3)/[facility] Monocyte % 8.4 % [facility] Monocyte Abs 0.4 0.3 - 0.9 x10(3)/[facility] Eos % 1.5 % [facility] Eosinophils Abs 0.1 0.0 - 0.4 x10(3)/[facility] Basophil % 0.7 % [facility] Baso Absolute 0.0 0.0 - 0.1 x10(3)/[facility] Immature Gran % 0.20 % [facility] Comment: Immature granulocytes(IG's)percentage and absolute count will include metamyelocytes, myelocytes, and promyelocytes. Blood smears from CBCs yielding IG's will be scanned manually for concordance. If this scan disagrees with the automated IG or if promyelocytes are noted, a manual differential will be performed. Immature Gran Absolute 0.01 0.00 - 0.04 x10(3)/[facility] Blood specimen (specimen) 08/18/2016 5:08 PM EDT 08/18/2016 5:12 PM EDT Narrative Resulting Agency Comment Spec In Lab L Timothy Pandey MD HEMATOLOGY ORDERABLE S [facility] [place] [address] * Hemogram (08/18/2016 5:08 PM EDT) Pathologist [facility] White Blood Cell 4.6 4.0 - 9.5 x10(3)/[facility] Red Blood Cell 4.68 4.58 - 5.54 x10(6)/[facility] Hemoglobin 14.5 13.7 - 16.5 gm/dL [facility] Hematocrit 40.7 40.5 - 48.5 % [facility] Mean Cell Volume 87.0 82.9 - 93.1 fL [facility] Mean Cell Hemoglobin 31.0 27.5 - 32.1 pg [facility] Mean Cell Hemoglobin Concentration 35.6 32.0 - 35.7 gm/dL [facility] Platelet 242 145 - 357 x10(3)/[facility] RDW Standard Deviation 40.0 36.0 - 45.0 [facility] RDW coefficient of variation 12.7 11.4 - 13.8 % [facility] Mean Platelet Volume 9.6 7.6 - 12.9 [facility] NRBC% auto 0.0 % [facility] NRBC Absolute 0.000 0.000 - 0.000 x10(3)/[facility] Blood specimen (specimen) 08/18/2016 5:08 PM EDT 08/18/2016 5:12 PM EDT Narrative Resulting Agency Comment Spec In Lab L Timothy Pandey MD HEMATOLOGY ORDERABLE S Performing Organization Address [facility] Co de Phone Number [facility] [place] [place] [address] * CRP, acute inflammation (08/18/2016 5:08 PM EDT) C-Reactive Protein 0.2 <=4.9 mg/L [facility] Blood specimen (specimen) 08/18/2016 5:08 PM EDT 08/18/2016 5:12 PM EDT Narrative Resulting Agency Comment Spec In Lab L Timothy Pandey MD CHEMISTRY ORDERABLES Performing Organization Address [facility]/ZIP Co de Phone Number [facility] [place] [address] * Hepatic Function Panel (08/18/2016 5:08 PM EDT) Protein, Total 6.9 6.1 - 8.0 gm/dL [facility] Albumin 4.1 3.2 - 5.2 gm/dL [facility] Aspartate Aminotransferase 24 0 - 39 unit/L [facility] Alanine Aminotransferase 50 0 - 55 unit/L [facility] Alkaline Phosphatase 53 40 - 120 unit/L [facility] Bilirubin, Total 1.1 0.2 - 1.3 mg/dL [facility] Bilirubin, Direct 0.2 0.0 - 0.3 mg/dL [facility] Blood specimen (specimen) 08/18/2016 5:08 PM EDT 08/18/2016 5:12 PM EDT Narrative Resulting Agency Comment Spec In Lab L Timothy Pandey MD CHEMISTRY ORDERABLES [facility] [place] [address] documented in this encounter Visit Diagnoses Diagnosis Crohn's disease of small intestine with fistula- Primary Regional enteritis of small intestine documented in this encounter Care Teams Graduate Nurse Relationship Specialty Start Date End Date Irwin Gonsalez DO [address] [place] [address] PCP - General 05/01/11 documented as of this encounter
--- OUTSIDE RECORDS SUMMARY | 2024-03-10 02:00 | XMS_ITS | Encounter Summary ---
[place] [address] Care Team Providers Care Pondman Name Role Phone Irwin Gonsalez DO Primary Care Provider Reason for Visit * Reason Comments Medication Management Encounter Details Date Type Department Care Team (Late st Contact Info) Description 07/03/2017 Specialty [place] [phone] Edvin Hernandez RPH Social History Tobacco Use [...] Progress Notes * Edvin Hernandez RPH - 07/03/2017 4:19 PM EDT Clinical Management Plan: Refill Specialty [...] Known Allergies Medication Reconciliation Discrepancies (compared to [facility] med list) - none New medications: [...] and that [facility] is providing recommendations (summary located at top of note) for provider review and follow up. Edvin Hernandez RPH 07/03/17 4:19 PM documented in this encounter Plan of Treatment Upcoming Encounters Date Type Department Care Team (Latest Contact Info) Description 04/01/2024 12:35 PM [facility] Hospital Encounter [place] [address] Apurva Vivas MD [facility] [place] [address] 04/01/2024 12:35 PM EST - 04/01/2024 2:17 PM EST Surgery [place] [address] Apurva Vivas MD [facility] [place] [address] ANORECTAL EXAM, REQUIRING ANESTHESIA, DIAGNOSTIC (WRVU 1.8) 04/26/2024 3:00 PM EST Office [place] [address] Apurva Vivas MD [facility] [place] [address] Scheduled Procedures Name Priority Associated Diagnoses Date/Ti me ANORECTAL EXAM, REQUIRING ANESTHESIA, DIAGNOSTIC (WRVU 1.8) perianal crohns disease w/fistula 04/01/2024 12:35 PM EST SURGICAL TREATMENT OF ANAL FISTULA COMPLEX OR MULTIPLE W\WO SETON PLACEMENT (WRVU 6.39) perianal crohns disease w/fistula 04/01/2024 12:35 PM EST documented as of this encounter Goals Goal Patient Goal Type Associated Problems Recent Progress Patient-Stated? Author [facility] Medication Compliance and Understanding Patient Facing Action [...] on filedocumented in this encounter Care Teams Pondman Relationship Specialty Start Date End Date Irwin Gonsalez DO [address] [place] [address] [address] [facility] [place] [address] PCP - General 05/01/11 documented as of this encounter
--- OUTSIDE RECORDS SUMMARY | 2024-03-10 02:00 | XMS_ITS | Encounter Summary ---
Author Organization [facility] [place] [address] Care Team Providers Care Hydrotel Operator Name Role Phone Irwin Gonsalez DO Primary Care Provider [phone] Reason for Visit * Reason Comments Medication Refill Encounter Details Date Type Department Care Team (Late st Contact Info) Description 09/05/2017 Refill [place] [phone] Ramonita Pandey MD [facility] [place] [address] Social History Tobacco Use Types Packs/Day Years [...] PM EST Hospital Encounter [place] [phone] Apurva Vivas MD [facility] [place] [address] 04/01/2024 12:35 PM EST - 04/01/2024 2:17 PM EST Surgery [place] [address] Apurva Vivas MD [facility] [place] [address] ANORECTAL EXAM, REQUIRING ANESTHESIA, DIAGNOSTIC (WRVU 1.8) 04/26/2024 3:00 PM EST Office Visit [place] [phone] Apurva Vivas MD [facility] [place] [address] Scheduled Procedures Name Priority Associated Diagnoses Date/Ti [...] on filedocumented in this encounter Care Teams Hydrotel Operator Relationship Specialty Start Date End Date Irwin Gonsalez DO [address] [place] [address] [address] [place] [address] PCP - General 05/01/11 documented as of this encounter
--- OUTSIDE RECORDS SUMMARY | 2024-03-10 02:00 | XMS_ITS | Encounter Summary ---
[place] [address] Care Team Providers Care Paintings Conservator Name Role Phone Irwin Gonsalez DO Primary Care Provider Encounter Details Date Type Department Care Team (Late st Contact Info) Description 08/22/2016 [place] [address] Perri Sousa [facility] Social History Tobacco Use Types Packs/Day Years [...] encounter Miscellaneous Notes * Telephone Encounter - Perri Romo Sunday - 08/22/2016 2:25 PM EDT [facility] Specialty Pharmacy: Clinical Management Plan ? Left message for refill reminder documented in this encounter Plan of Treatment Upcoming Encounters Date Type Department Care Team (Latest Contact Info) Description 04/01/2024 12:35 PM [facility] Hospital Encounter [place] [address] Apurva Vivas MD [facility] [place] [address] 04/01/2024 12:35 PM EST - 04/01/2024 2:17 PM EST Surgery [place] [phone] Apurva Vivas MD [facility] [place] [address] ANORECTAL EXAM, REQUIRING ANESTHESIA, DIAGNOSTIC (WRVU 1.8) 04/26/2024 3:00 PM EST Office [place] [phone] Apurva Vivas MD [facility] [place] [address] Scheduled Procedures Name Priority Associated Diagnoses Date/Ti [...] on filedocumented in this encounter Care Teams Paintings Conservator Relationship Specialty Start Date End Date Irwin Gonsalez DO [address] [place] [address] PCP - General 05/01/11 documented as of this encounter
--- OUTSIDE RECORDS SUMMARY | 2024-03-10 02:00 | XMS_ITS | Encounter Summary ---
[place] [address] Care Team Providers Care Leather Seasoner Name Role Phone Irwin Gonsalez DO Primary Care Provider Reason for Visit * Reason Comments Medication Management Encounter Details Date Type Department Care Team (Late st Contact Info) Description 06/09/2017 Specialty [place] [phone] Adelaide Sánchez Social History Tobacco Use Types [...] Progress Notes * Adelaide Gonzales RPH - 06/09/2017 8:38 AM EDT Clinical Management Plan: Refill Specialty [...] prior to next refill. Assessment and Recommendations: Cognitive Ability: good Allergies and Drug intolerance: No Known Allergies Medication Reconciliation Discrepancies (compared to [facility] med list) -none New medications: no [...] review and follow up. Adelaide Gonzales RPH 06/09/17 8:38 AM documented in this encounter Plan of Treatment Upcoming Encounters Date Type Department Care Team (Latest Contact Info) Description 04/01/2024 12:35 PM EST Hospital Encounter [place] [address] Apurva Vivas MD [facility] [place] [address] 04/01/2024 12:35 PM EST - 04/01/2024 2:17 PM EST Surgery [place] [address] Apurva Vivas MD [facility] [place] [address] ANORECTAL EXAM, REQUIRING ANESTHESIA, DIAGNOSTIC (WRVU 1.8) 04/26/2024 3:00 PM EST Office [place] [address] Apurva Vivas MD [facility] [place] [address] Scheduled Procedures Name Priority Associated Diagnoses Date/Ti [...] PM EDT) Perri Hernandez, [facility] Note: Patient's specific desired goal: Igor [...] on filedocumented in this encounter Care Teams Leather Seasoner Relationship Specialty Start Date End Date Irwin Gonsalez DO [address] [place] [address] PCP - General 05/01/11 documented as of this encounter
--- OUTSIDE RECORDS SUMMARY | 2024-03-10 02:00 | XMS_ITS | Encounter Summary ---
Author Organization [facility] Address [facility] [place] [address] Care Team Providers Care Clinical Social Worker Name Role Phone Irwin Gonsalez DO Primary Care Provider [phone] Reason for Visit * Reason Comments Excessive Sweating Encounter Details Date Type Department Care Team (Late st Contact Info) Description 04/01/2017 8:00 AM EST Office Visit Dermatology at [facility] [address] [place] [address] Loly Alvarez MD [facility] [place] [address] Hyperhidrosis Social History Tobacco Use Types Packs/Day [...] Progress Notes * Elma Reno LPN - 04/01/2017 8:00 AM EST DERMATOLOGY ESTABLISHED PATIENT CLINIC NOTE DATE OF SERVICE: 04/01/2017 Igor Woodruff : 1975 PROVIDER: Loly Alvarez [...] is a 42 y.o. year old male. [place] established to [facility] dermatology, He presents to the clinic today for a Botox injection for hyperhidrosis. Reports the followin.Last treatment was in April with Saturnino Pearl 2. 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 azaTHIOprine (IMURAN) 50 mg Tablet Take 5 tablets by mouth daily. 450 tablet 1 ??? acetaminophen (TYLENOL) 325 mg Tablet Take 2 tablets by mouth every 4 hours as needed for Pain.30 tablet 1 ??? Adalimumab 40 mg/0.8 mL [...] file prior to visit. No Known Allergies Review of Systems: Feels well, no fatigue, no weight loss, no other skin concerns EXAM General: AAOx3 Well-nourished Skin: A focal examination of the following areas was performed:Bilateral Axilla DIAGNOSIS/SKIN FINDINGS/ASSESSMENT/PLAN: # Axillary Hyperhidrosis: sweating is intolerable and interferes w/ quality of [...] iftoday's tx duration less than 5 mos ?? Procedure: - Re-discussed procedure, answered all questions and patient agreed to proceed. - Sterile prep of axillae with alcohol, grid marked in the axillae, with pinpoints 1cm apart. Approximately 50cm square area. - Botox (5 units/0.1cc) was injected into this grid, approximately 2.5 units at each point on the grid for 50 units in each axillae. - No complications. Lot: [id number] Exp: 07/2019 FOLLOW UP: 6 months for botox for axillary hyperhidrosis follow up, sooner if needed. I am documenting this encounter acting as the scribe for and in the presence of Dr.Roberta Antonio Reno LPN and Awa Tomlin I performed the above scribed service and agree with the accuracy of the documentation in this encounter. Loly Alvarez MD Section of Dermatology [facility] Igor Woodruff 04/01/2017 [id number] documented in this encounter Plan of Treatment Upcoming Encounters Date Type Department Care Team (Latest Contact Info) Description 04/01/2024 12:35 PM EST Hospital Encounter [place] [address] Apurva Vivas MD [facility] [place] [address] 04/01/2024 12:35 PM EST - 04/01/2024 2:17 PM EST [place] [phone] Apurva Vivas MD [facility] [place] [address] ANORECTAL EXAM, REQUIRING ANESTHESIA, DIAGNOSTIC (WRVU 1.8) 04/26/2024 3:00 PM EST Office [place] [address] Apurva Vivas MD [facility] [place] [address] Scheduled Procedures Name Priority Associated Diagnoses Date/Ti me ANORECTAL EXAM, REQUIRING ANESTHESIA, DIAGNOSTIC (WRVU 1.8) perianal crohns disease w/fistula 04/01/2024 12:35 PM EST SURGICAL TREATMENT OF ANAL FISTULA COMPLEX OR MULTIPLE W\WO SETON PLACEMENT (WRVU 6.39) perianal crohns disease w/fistula 04/01/2024 12:35 PM EST documented as of this encounter Goals Goal Patient Goal Type Associated Problems Recent Progress Patient-Stated? Author [facility] Medication Compliance and Understanding Patient Facing Action Plan On track( 017 9:39 PM EDT) Perri Hernandez, [facility] - [...] MAR Action Action Date Dose Rate Site botulinum toxin type A (BOTOX) injection 100 Units 100 Units, Intramuscular, ONCE, 1 dose, On Thu04/01/17 at 0900, Routine Given 04/01/2017 8:35 AM EST 100 Units 20-Other (document in comment section) documented in this encounter Care Teams Clinical Social Worker Relationship Specialty Start Date End Date Irwin Gonsalez DO [address] [place] [address] PCP - General 05/01/11 documented as of this encounter
--- OUTSIDE RECORDS SUMMARY | 2024-03-10 02:00 | XMS_ITS | Encounter Summary ---
Author Organization [facility] Address [facility] [place] [address] Care Team Providers Care Internet Sales Manager Name Role Phone Irwin Gonsalez DO Primary Care Provider [phone] Reason for Visit * Auth/Cert Specialty Diagnoses [...] Expiration Date Visits Re quested Visits Authorized [id number] 1 1 Encounter Details Date Type Department Care Team (Late st Contact Info) Description 05/23/2016 8:50 AM EST - 05/23/2016 11:15 AM EST Surgery [facility] [place] [id number] Dougie Husain Jr., MD [facility] [place] [address] CYSTO, REMOVAL OF STENT, FOREIGN BODY OR CALCULUS, SIMPLE (WRVU 2.81) Social History Tobacco Use Types Packs/Day Years [...] Sign Reading Time Taken Comments Blood Pressure 135/84 05/23/2016 7:52 AM EST Pulse 77 05/23/2016 7:52 AM EST Temperature 36.6 ??C (97.9 ??F) 05/23/2016 7:52 AM ES T Respiratory Rate 18 05/23/2016 7:52 AM EST Oxygen Saturation 98% 05/23/2016 7:52 AM EST Inhaled Oxygen Concentration - - Weight 102.1 kg (225 lb) 05/23/2016 7:52 AM EST Height 182.9 cm (6') 05/23/2016 7:52 AM EST Body Mass Index 30.52 05/23/2016 7:52 AM EST documented in this encounter Discharge Instructions * Discharge Instructions* Kaylynn Palmer RN - 05/23/2016 11:12 AM EST General Anesthesia Discharge Instructions Go home and rest. You may be sleepy for several hours. Take it easy as sudden position changes may cause nausea and/or dizziness. Use caution on stairs. Follow a light to regular diet as tolerated today. If nausea occurs, start with clear liquids, and progress slowly to a regular diet. Do not drive, operate machinery, drink alcoholic beverages or make any legal decisions after havinggeneral anesthesia. The medications given change your reaction time and alter your judgement. IV site -- slight redness is normal, you can use warm compresses. If tenderness and redness increases or foul drainage occurs, please contact your M.D. Patients who have had endotracheal tubes/LMA (tubes used by the anesthesia staff to ensure a safe airway during your operation) may have a sore throat. This is normal and cold liquids or soothing lozengers will help ease this discomfort. Narcotic pain medications can cause constipation, please ask the surgeons office what they recommend for prevention of this. Some non-pharmaceutical means of constipation prevention include increasing intake of fluids, eating more fruits and vegetables as well as fruit juices. If you are uncomfortable and/or unable to urinate within 8 hours of discharge and it is before 5 pm, call your physician. If it is after 5pm go to the closest emergency room or call the hospital journeyman powerhouse operator at [phone] and ask for physician transitional kindergarten teacher covering for your physician. Questions or problems after 5pm or on a weekend: Call the [facility] journeyman powerhouse operator at and ask for the physician transitional kindergarten teacher covering for your doctor. * Patient Instructions* Mannie Brent P - 05/23/2016 11:15 AM EST Call your doctor for: ??? fevers greater than 101 ??? severe nausea or vomiting ??? increasing pain not controlled by pain medications The number for questions is [phone] before 5 PM weekdays and [phone] after 5 PM and weekends. Activity level: Increased activity may lead to more stent discomfort and more blood in your urine. Your activity level will be determined by your comfort level. Diet: You may resume your regular diet as tolerated. Driving: No driving while still taking opioid pain medications (wait at least 6- 8 hours since last dose). No driving if you are still sore from surgery as it may limit your ability to react quickly if necessary. Shower/Bath: No restrictions. Stent Discomfort: Most patients experience some degree of discomfort related to their ureteral stent. Symptoms include flank pain (increased during urination), frequency and urgency of urination, burning or pain in the bladder or urethral with urination, pelvic discomfort, and blood in the urine. Your symptoms may be exacerbated by activity. To manage your stent symptoms, try the following: - drink plenty of fluid (~2 liters per day or enough to make urine clear or pale yellow) - take ibuprofen (Motrin, Advil, or generic), up to 600-800mg every 8 hours - take acetaminophen (Tylenol), up to 650mg every 4 hours (regular strength) or 1000mg every 6 hours (extra strength) - take other narcotic pain medications as prescribed. If taking vicodin or percocet, do not take Tylenol in addition. Follow up Appointments: Follow-up appointment will be scheduled with Dr Husain in about 7-10 days forstent removal in the office. Please call [phone] if you do not receive your appointment. It is important to remember that your ureteral stent cannot stay in place permanently. If it remains in place too long it may become encrusted with stone and require additional surgery to remove it. Please call our office if you do not receive your appointment or if you need to reschedule. documented in this encounter Medications at Time [...] mg by mouth every morning (before breakfast). oxyCODONE (ROXICODONE) 5 mg Tablet Take 1 tablet by mouth every 4 hours as needed for Pain. 15 tablet 05/23/2016 10/24/2016 azaTHIOprine (IMURAN) 50 mg Tablet TAKE 5 TABLETS BY MOUTH EVERY DAY DIRECTED 150 tablet 5 05/11/2016 01/02/2017 oxyCODONE (ROXICODONE) 5 mg Tablet Take 1 tablet by mouth every 4 hours as needed for Pain. 20 tablet 05/02/2016 10/24/2016 phenazopyridine (PYRIDIUM) 200 mg Tablet Take 1 tablet by mouth 3 times daily as needed for Pain. 14 tablet 05/02/2016 10/24/2016 Adalimumab 40 mg/0.8 mL Pen Injector Kit Inject 0.8 mLs subcutaneously every 14 days. 6 kit 1 04/25/2016 05/05/2017 documented as of this encounter Progress Notes * Kaylynn Palmer RN - 05/23/2016 12:49 PM EST Patient ambulated to the car. * Kaylynn Palmer RN - 05/23/2016 12:21 PM EST Discharge instructions done with the and questions answered. documented in this encounter H&P Notes * Dougie Husain Jr., MD - 05/23/2016 8:48 AM EST Patient Name: Igor Woodruff Patient Age: 41 y.o. Birthdate: 1975 Admit date: 05/23/2016 Attending Physician: Dougie Husain Jr., MD Igor Woodruff presents for left ureteroscopy and laser lithotripsy with possible stent exchange (vs stent removal). He has 7mm left renal pelvic stone. Attempted left ureteroscopy could not be performed as ureter was too tight to accomodate ureteroscope on 05/02/16. Stent was placed and he returns today for planned definitive ureteroscopy. He would be comfortable to omit stent, recognizes approx 10% risk of need for unplanned return to ER/OR for obstruction due to stent omission. If a stentis placed he does not want tether left attached. He has had no interval medical changes. No fevers, chills. Full H and P below: UROLOGY PRE-OPERATIVE HISTORY AND PHYSICAL UPDATE ?? Igor Woodruff is a 41 y.o. gentleman presenting for attempted URS/stent placement for his APJR4bd renal stone. ?? No change to medical history or recent illness / injury since last encounter on 04/30/16. ? Prior To Admission Medications: Reviewed as per [facility] Allergies: No Known Allergies ? PHYSICAL EXAM Temp: [36.6 ??C (97.9 ??F)] Heart Rate: [82] Resp: [18] BP: (147)/(94) SpO2: [96 %] Heart Rate from SPO2: -- GENERAL: No acute distress, sitting comfortably. A/O x 3. PULM: Non labored breathing COR: Regular rate ABD: soft, non-tender, non-distended. EXTREMITIES: symmetric, no edema. ? PERTINENT LABS: ?? Results: Urine culture Status: Final result (Collected: 04/30/2016 ??3:28 PM) Result Information Date and Time Status ? Resulted: 05/01/2016 ??6:10 PM Final result ?? Component Results Component Value Urine Culture No growth (Less than 1,000 cfu/ml). ? ASSESSMENT: Igor Woodruff is a 41 y.o. male who presents with the above history for planned LEFT URS. ?? After a thorough discussion of the benefits and risks including bleeding, infection, damage to surrounding structures, davidson placement, PCN placement, repeat procedures, anesthetic risks, Igor Woodruff has elected to proceed. ? PLAN: -Consent signed -NPO -Site Marked: LEFT -Antibiotics:Cipro ? MARITZA LUNDBERG MD ?? documented in this encounter Miscellaneous Notes * Op Note - Brent Chand - 05/23/2016 11:17 AM EST [facility] Operative Note Patient Name: Igor Woodruff : [id number] MR#: [id number] Case Date: 05/23/2016 Surgeon: Surgeon(s) and Role: * Dougie Husain Jr., MD - Primary * Brent Chand MD - Resident-Surgeon Presley Preoperative diagnosis: stones Postoperative diagnosis: stones Procedure(s) (LRB): CYSTO, REMOVAL OF STENT, FOREIGN BODY OR CALCULUS, SIMPLE (WRVU 2.81) (Left) MODIFIER HOLMIUM LASER (N/A) CYSTOURETEROSCOPY,DIAGNOSTIC,W/ LITHOTRIPSY INC. INSERTION OF INDWELLING URETERAL STENT (WRVU 8) (Left) FLUROSCOPY:UP TO ONE HOUR (WRVU 0.17) (Left) CYSTO, RETROGRADE, URETEROPYELOGRAPHY (WRVU 2.37) (Left) Findings: 1. indwelling left ureteral stent removed 2. Left renal stone seen in lower pole calyx, moved to upper pole, fragmented with laser, pieces removed 3. No further stones seen in renal pelvis or ureter 4. Left ureteral stent replaced 5. Multiple papillae with Toñito's plaques Anesthesia: General Estimated Blood Loss: 5cc Specimens removed during surgery: left renal stone Drains: 7 Fr x 24cm Left ureteral stent Surgical Closure: no incision Disposition: awakened from anesthesia, extubated and taken to the recovery room in a stable condition, having suffered no apparent untoward event. Condition: doing well without problems (Please see the Surgical Encounter Summary for any Implant and Specimen details pertinent to this patient.) HPI/Surgical Indications: Igor Woodruff presents for left ureteroscopy and laser lithotripsy with possible stent exchange (vs stent removal). He has 7mm left renal pelvic stone. Attempted left ureteroscopy could not be performed as ureter was too tight to accomodate ureteroscope on 05/02/16. Stent was placed and he returns today for planned definitive ureteroscopy. He would be comfortable to omit stent, recognizes approx 10% risk of need for unplanned return to ER/OR for obstruction due to stent omission. If a stentis placed he does not want tether left attached. Procedure Description: The patient was identified in the pre-operative holding area. Consent was verified. The correct side of the procedure was marked. The patient was taken to the operating room and placed supine on the operating table. General anesthesia was induced. The patient was then moved to the dorsal lithotomy position and prepped and draped in the usual sterile fashion. A timeout was performed involving all members of the OR team confirming the patient's identity and planned procedure. Preoperative antibiotics were administered. A 22 Fr rigid cystoscope was inserted into the bladder. 360 degree cystoscopy was done and revealedindwelling left ureteral stent. The existing left ureteral stent was visualized. The stent was thengrasped with a stent grasper and removed to the level of the urethral meatus. The cystoscope was removed over the stent. A guide wire was unable to be passed via the stent so it was removed. Looking b ack in with the cystoscope, a glidewire was inserted into the left UO and advanced to the renal pelvis under fluoroscopy. The cystoscope was removed. A flexible ureteroscope was inserted into the bladder and navigated up the left ureter to the renalpelvis. No stones were seen in the ureter. The known left renal stone was seen in a lower pole calyx. It was moved to the upper pole for easier access to fragment with laser. Holmium laser was used at 8 Hz and 0.5 J for fragmentation of the stone. Large fragments were extracted to the bladder using a N-naa basket; these were collected at the end of the procedure and sentto Pathology as a specimen. Smaller pieces were flushed out with irrigation. Retrograde pyelography was performed to assist in inspecting the entire pyelocaliceal system. No further stones were found. The ureteroscope was slowly removed to inspect the ureter; no further calculi were seen. Using the cystoscope, a 7 Fr x 24 cm ureteral stent was inserted over the wire. The pro ximal coil was visualized on fluoroscopy to be within the renal pelvis, and the distal coil was seen with direct visualization in the bladder. The bladder was emptied. The cystoscope was removed. The patient tolerated the procedure well and was awakened from anesthesia with no adverse events. The patient was taken to the recovery area in stable condition. Dr. Husain, the attending surgeon, was present for the entire procedure. Plan: -stent removal in clinic in 7-10 days Infection Bundle used? See Brief Op note * Brief Op Note - Brent Chand - 05/23/2016 11:16 AM EST Brief Operative Note Patient Name: Igor Woodruff : [id number] MR#: [id number] Case Date: 05/23/2016 Surgeon: Surgeon(s) and Role: * Dougie Husain Jr., MD - Primary * Brent Chand MD - Resident-Surgeon Presley Preoperative diagnosis: stones Postoperative diagnosis: stones Procedure(s) (LRB): CYSTO, REMOVAL OF STENT, FOREIGN BODY OR CALCULUS, SIMPLE (WRVU 2.81) (Left) MODIFIER HOLMIUM LASER (N/A) CYSTOURETEROSCOPY,DIAGNOSTIC,W/ LITHOTRIPSY INC. INSERTION OF INDWELLING URETERAL STENT (WRVU 8) (Left) FLUROSCOPY:UP TO ONE HOUR (WRVU 0.17) (Left) CYSTO, RETROGRADE, URETEROPYELOGRAPHY (WRVU 2.37) (Left) Anesthesia: General Findings: 1. indwelling left ureteral stent removed 2. Left renal stone seen in lower pole calyx, moved to upper pole, fragmented with laser, pieces removed 3. No further stones seen in renal pelvis or ureter 4. Left ureteral stent replaced Complications: none Estimated Blood Loss: * No values recorded between 05/23/2016 9:12 AM and 05/23/2016 11:09 AM * Fluids: 1L Drains: 7 Fr x 24cm Left ureteral stent Disposition: awakened from anesthesia, extubated and taken to the recovery room in a stable condition, having suffered no apparent untoward event. Condition: doing well without problems (Please see the Surgical Encounter Summary for any Implant and Specimen details pertinent to this patient.) Infection Bundle used? N/A Associated attestation - Dougie Husain Jr., MD - 05/23/2016 4:10 PM EST I was present and I participated during the entire procedure. documented in this encounter Plan of Treatment Upcoming Encounters Date Type Department Care Team (Latest Contact Info) Description 04/01/2024 12:35 PM EST Hospital Encounter Main [place] [address] Apurva Vivas MD [facility] [place] [address] 04/01/2024 12:35 PM EST - 04/01/2024 2:17 PM EST Surgery [place] [address] Apurva Vivas MD [facility] [place] [address] ANORECTAL EXAM, REQUIRING ANESTHESIA, DIAGNOSTIC (WRVU 1.8) 04/26/2024 3:00 PM EST Office [place] [phone] Apurva Vivas MD [facility] [place] [address] Scheduled Procedures Name Priority Associated Diagnoses Date/Ti [...] Procedure Name Priority Date/Time Associated Diagnosis Comments XR FLUORO NO RAD <1HR - OR USE Routine 05/23/2016 11:30 AM EST KIDNEY STONE ANALYSIS Routine 05/23/2016 11:10 AM EST CYSTO, RETROGRADE, URETEROPYELOGRAPHY (WRVU 2.37) 05/23/2016 8:50 AM EST stones FLUROSCOPY:UP TO ONE HOUR (WRVU 0.3) 05/23/2016 8:50 AM EST stones CYSTOURETEROSCOPY,DIAGNOST IC,W/ LITHOTRIPSY INC. INSERTION OF INDWELLING URETERAL STENT (WRVU 8) 05/23/2016 8:50 AM EST stones MODIFIER HOLMIUM LASER 7 8:50 AM EST stones CYSTO, REMOVAL OF STENT, FOREIGN BODY OR CALCULUS, SIMPLE (WRVU 2.81) 05/23/2016 8:50 AM EST stones documented in this encounter Results * XR Fluoro No Rad <1Hr - OR Use (05/23/2016 11:30 AM EST) Narrative DH RAD - 05/23/2016 11:31 AM EST This order does not need a radiologist interpretation. ?? Dougie Husain Jr., MD IMG FLUORO ORDERAB LES Performing Organization Address [facility] de Phone Number [facility], [place] * Kidney Stone Analysis (05/23/2016 11:10 AM EST) Kidney Stone Analysis (MAY) Test ? Result ?Flag ??Unit ??RefValue ------- Kidney Stone Analysis ??Source: ?Left Renal ??1st Constituent: ?90% Calcium oxalate monohydrate ??2nd Constituent: ?10% Calcium oxalate dihydrate ? ---ADDITIONAL INFORMATION------- ?This test was developed and its performance characteristics ?determined by [facility] in a manner consistent with CLIA ?requirements. This test has not been cleared or approved by ?the U.S. Food and Drug Administration. ?Test Performed by: ?[facility] [employer] ?[address], [place] [id number] [place] [address] LABORATORY Calculus specimen (specimen) 05/23/2016 11:10 AM EST 05/23/2016 1:11 PM EST Narrative Resulting Agency Comment Spec In Lab Dougie Husain Jr., MD LAB SEND OUT ORDER CHASE Performing Organization Address [facility] [place] [address] documented in this encounter Visit Diagnoses Not on filedocumented in this encounter Administered Medications Inactive Administered Medications - up to 3 most recent administrations Medication Order MAR Action Action Date Dose Rate Site acetaminophen (TYLENOL) tablet 650 mg 650 mg, Oral, EVERY 4 HOURS PRN, Starting on Thu05/23/16 at 1115, Until Thu05/23/16 at 1450, Pain, Maximum dose of acetaminophen is 4000 mg from all sources in 24 hours., Routine fentaNYL (PF) 50 mcg/mL 2mL syringe 25 mcg, Intravenous, EVERY 5 MIN PRN, Pain, for 1-4 pain score, Starting on Thu05/23/16 at 1111, Until Thu05/23/16 at 1450, for 1-4 pain score Hold for respiratory rate less than 10 per minute. Maximum dose: 250 mcg over one hour., PACU Recovery fentaNYL (PF) 50 mcg/mL 2mL syringe 50 mcg, Intravenous, EVERY 5 MIN PRN, Pain, for 5-10 pain score, Starting on Thu05/23/16 at 1111, Until Thu05/23/16 at 1450, for 5-10 pain score Hold for respiratory rate less than 10 per minute. Maximum dose: 250 mcg over one hour., PACU Recovery iohexol (OMNIPAQUE) 300 mg/mL solution ONCE PRN, Starting on Thu05/23/16 at 0926, Until Thu05/23/16 at 1450, Intra-Operative (Intra-Procedure), Routine Given 05/23/2016 9:26 AM EST 50 mLs 19- Surgical Site lactated ringers infusion 1,000 mL 1,000 mL, at 100 mL/hr, Intravenous, CONTINUOUS, Starting on Thu05/23/16 at 0815, Until Thu05/23/16 at 1450, Day of Surgery (Day of Procedure) New Bag 05/23/2016 8:45 AM EST New Bag 05/23/2016 8:10 AM EST 1,000 mLs 100 mL/hr lidocaine (XYLOCAINE) 10 mg/mL (1 %) injection 3 mg 3 mg (0.3 mL), Subcutaneous, ONCE PRN, 1 dose, Starting on Thu05/23/16 at 0751, Until Thu05/23/16 at 1450, for discomfort with PIV insertion, Day of Surgery (Day of Procedure), Routine oxyCODONE (ROXICODONE) immediate release tablet 5 mg 5 mg, Oral, EVERY 4 HOURS PRN, Starting on Thu05/23/16 at 1115, Until Thu05/23/16 at 1450, Pain, Routine sodium chloride 0.9 % flush 5-20 mL 5-20 mL, Intravenous, EVERY 1 MIN PRN, Starting on Thu05/23/16 at 0751, Until Thu05/23/16 at 1450, flush, Flush pertains to all indwelling lines. Flush per protocol found in the job aid using the link provided on this medication record., Day of Surgery (Day of Procedure), Routine documented in this encounter Active and Recently Administered Medications Times are shown in EST. Scheduled Medication Order 05/21/2016 05/22/2016 05/23/2016 ciprofloxacin (CIPRO) 400mg in dextrose 5% 200mL (COMPLETED) 400 mg, Intravenous, CORRECTIONAL MEDICINE PHYSICIAN TO O.R., 1 dose, On Thu05/23/16 at 0815, Administer over 60 Minutes, Day of Surgery (Day of Procedure), Indication for (Active or Suspected): Prophylaxis, Restricted Antibiotic: Please indicate the most appropriate choice: Pre-approved Indication (State the indication in Comments field) 0856 (Given - Provid er: Katya Wolff CRNA) Continuous Medication Order 05/21/2016 05/22/2016 05/23/2016 lactated ringers infusion 1,000 mL 1,000 mL, at 100 mL/hr, Intravenous, CONTINUOUS, Starting on Thu05/23/16 at 0815, Until Thu05/23/16 at 1450, Day of Surgery (Day of Procedure) 0810 (New Bag - Prov ider: Riya Matos RN)0845 (New Bag - Provider: Katya Wolff CRNA)0921 (Anesthesia Volume Adjustment - Provider: Katya Wolff CRNA)1048 (Anesthesia Volume Adjustment - Provider: Katya Wolff CRNA)1059 (Anesthesia Volume Adjustment - Provider: Katya Wolff CRNA) PRN Medication Order 05/21/2016 05/22/2016 05/23/2016 acetaminophen (TYLENOL) tablet 650 mg 650 mg, Oral, EVERY 4 HOURS PRN, Starting on Thu05/23/16 at 1115, Until Thu05/23/16 at 1450, Pain, Maximum dose of acetaminophen is 4000 mg from all sources in 24 hours., Routine fentaNYL (PF) 50 mcg/mL 2mL syringe(Linked Group 1) 25 mcg, Intravenous, EVERY 5 MIN PRN, Pain, for 1-4 pain score, Starting on Thu05/23/16 at 1111, Until Thu05/23/16 at 1450, for 1-4 pain score Hold for respiratory rate less than 10 per minute. Maximum dose: 250 mcg over one hour., PACU Recovery fentaNYL (PF) 50 mcg/mL 2mL syringe(Linked Group 1) 50 mcg, Intravenous, EVERY 5 MIN PRN, Pain, for 5-10 pain score, Starting on Thu05/23/16 at 1111, Until Thu05/23/16 at 1450, for 5-10 pain score Hold for respiratory rate less than 10 per minute. Maximum dose: 250 mcg over one hour., PACU Recovery iohexol (OMNIPAQUE) 300 mg/mL solution (CANCELED) ONCE PRN, Starting on Thu05/23/16 at 0926, Until Thu05/23/16 at 1450, Intra-Operative (Intra-Procedure), Routine 0926 (Given - Provid er: Dougie Husain Jr., MD) lidocaine (XYLOCAINE) 10 mg/mL (1 %) injection 3 mg 3 mg (0.3 mL), Subcutaneous, ONCE PRN, 1 dose, Starting on Thu05/23/16 at 0751, Until Thu05/23/16 at 1450, for discomfort with PIV insertion, Day of Surgery (Day of Procedure), Routine oxyCODONE (ROXICODONE) immediate release tablet 5 mg 5 mg, Oral, EVERY 4 HOURS PRN, Starting on Thu05/23/16 at 1115, Until Thu05/23/16 at 1450, Pain, Routine sodium chloride 0.9 % flush 5-20 mL 5-20 mL, Intravenous, EVERY 1 MIN PRN, Starting on Thu05/23/16 at 0751, Until Thu05/23/16 at 1450, flush, Flush pertains to all indwelling lines. Flush per protocol found in the job aid using the link provided on this medication record., Day of Surgery (Day of Procedure), Routine Linked Groups Order Group 1: fentaNYL (PF) 50 mcg/mL 2mL syringeJump to med 25 mcg, Intravenous, EVERY 5 MIN PRN, Pain, for 1-4 pain score, Starting on Thu05/23/16 at 1111, Until Thu05/23/16 at 1450, for 1-4 pain score Hold for respiratory rate less than 10 per minute. Maximum dose: 250 mcg over one hour., PACU Recovery Or fentaNYL (PF) 50 mcg/mL 2mL syringeJump to med 50 mcg, Intravenous, EVERY 5 MIN PRN, Pain, for 5-10 pain score, Starting on Thu05/23/16 at 1111, Until Thu05/23/16 at 1450, for 5-10 pain score Hold for respiratory rate less than 10 per minute. Maximum dose: 250 mcg over one hour., PACU Recovery documented in this encounter Care Teams Internet Sales Manager Relationship Specialty Start Date End Date Irwin Gonsalez DO [address] [place] [address] PCP - General 05/01/11 documented as of this encounter
--- OUTSIDE RECORDS SUMMARY | 2024-03-10 02:00 | XMS_ITS | Encounter Summary ---
Author Organization [facility] Address [facility] [place] [address] Care Team Providers Care Insulator Technician Name Role Phone Irwin Gonsalez DO Primary Care Provider [phone] Reason for Visit * Reason Comments Nephrolithiasis Encounter Details Date Type Department Care Team (Late st Contact Info) Description 06/04/2016 2:40 PM EDT [place] [phone] Dougie Husain Jr., MD [facility] [place] [address] Nephrolithiasis Social History Tobacco Use Types Packs/Day [...] Reading Time Taken Comments Blood Pressure 149/100 06/04/2016 2:48 PM EDT Pulse 87 06/04/2016 2:48 PM EDT Temperature 36.7 ??C (98.1 ??F) 06/04/2016 2:48 PM ED T Respiratory Rate - - Oxygen Saturation - - Inhaled Oxygen Concentration - - Weight - - Height - - Body Mass Index - - documented in this encounter Patient Instructions * Patient Instructions* Radha Vivar, KIANNA - 06/04/2016 2:40 PM EDT Instructions following Cystoscopy Activity: As tolerated by your comfort level. Fluids: You should increase your water today. Avoid coffee, tea and cola. You do not need to trtaie03 ounces of water today. Urination: You will likely have a small amount of blood in your urine for the next several days. This is normal; however, if you are passing large amounts of blood clots or are unable to void please call our office at [phone] before 5PM or [phone] after hours. Please call if: * you have copious blood in your urine * fevers greater than 101.3 F * you are unable to void The number for questions is [phone] before 5 PM weekdays and [phone] after 5 PM and weekends. Follow-up: 4 weeks with renal ultrasound In general, increase your fluid intake to maintain at least 2 - 2.5 liters of urine output each day and begin lemonade therapy as directed. The following information is a good reference guide on reducing and maintaining a low oxalate diet. Low Oxalate Diet Kidney stones are caused by a buildup of minerals in the urine. Calcium, oxalate (OX-uh-layt), and uric acid may lead to kidney stones in some people. A low- oxalate diet is for people who have calcium oxalate kidney stones. Cutting back on high-oxalate foods and salt (sodium) and drinking plenty ofwater may help prevent kidney stones from forming. Here are some important points to remember: Oxalates are found in a wide variety of foods. Foods that come from animals usually have little or no oxalate Drink plenty of fluids. Drink more than 8 cups of fluid every day. Your urine should be as clear aswater. If it isn???t, drink more fluids. To help prevent oxalate stones from forming, limit oxalates to 40 to 50 mg per day. Use the chart below as a guide. Low-oxalate foods have less than 2mg of oxalate per serving. You can eat as much of these foods as you like. Moderate-oxalate foods have 2 to 6 mg of oxalate per serving. You should eat no more than three of these foods per day. High Oxalate foods have more than 7mg of oxalate per serving. Avoid these foods. Low oxalate foods: Drinks Low oxalate Moderate Oxalate High Oxalate -apple juice -coffee (limit to 8oz/day) -any juice made from high-oxalate fruits -beer, bottled or canned -cola (limit to 12oz per day -beer, draft -cider -cranberry juice -chocolate, plain -distilled alcohol -grape juice -chocolate milk -ashley megan -orange juice -cocoa -grapefruit juice -orangeade -coffee powder (instant) -lemon juice -Ovaltine -lemonade/limeade -tea, brewed (made without peel) -galena juice -milk (skim, 2%, whole) -orange soda -pineapple -root beer -water -wine Dairy Low Oxalate Moderate Oxalate High Oxalate -milk (skim, 2%,whole) -none -chocolate milk -buttermilk -yogurt with allowed fruit -cheese For calcium restrictions, limit above (low oxalate) to one serving per day Meat Low Oxalate Moderate Oxalate High Oxalate -beef, nevarez, pork -beef kidney -none -eggs -liver -fish/shellfish -poultry Meat Substitutes, Beans, Nuts and Seeds Low Oxalate Moderate Oxalate High Oxalate -eggs -garbanzo beans, canned - almonds -lentils -gupta - baked beans canned -water chestnuts -split vale,cooked - tomato sauce - cashews - green beans, waxed and dried - peanut butter - peanuts - pecans - sesame seeds - sunflower seeds - tofu (soybean curd) - walnuts Fats and Oils Low Oxalate Moderate Oxalate High Oxalate -all -none -none Fruit Low Oxalate Moderate Oxalate High Oxalate -apples, peeled -apples with peals -blackberries -avocado -apricots -black raspberries -bananas -black currants -blueberries -cantaloupe -cranberries, dried -red currants -casaba -grapefruit -dewberies -cherries, luis manuel -oranges -figs, dried -coconut -peaches -grapes, purple -cranberries, canned -pears -gooseberries -grapes, green -pineapple -kiwi -honeydew -plums -lemon peel -mangoes -prunes -galena peel -nectarines -orange peel -papaya -red raspberries -raisins -rhubarb -watermelon -strawberries -tangerines -any juice made from above fruits Breads and Starches Low Oxalate Moderate Oxalate High Oxalate -bread -barley, cooked -Fig Newtons -breakfast cereals -corn bread -fruit cake -noodles, egg or -corn tortilla -mariusz crackers Macaroni -cornmeal -grits, white corn -rice, white or wild -cornstarch -kamut -flour, white or wheat -marmalade -oatmeal -soybean crackers -rice, brown -wheat germ -Unsalted saltine or soda -Crackers -Spaghetti in tomato sauce -sponge cake Vegetables Low Oxalate Moderate Oxalate High Oxalate -acorn squash -asparagus -beans -alfalfa sprouts -artichokes -beets -cabbage -brussel sprouts -celery -caulifower -broccoli -chives -peas, frozen and fresh -carrots -collards -peppers, red -corn -dandelion -radishes -cucumbers, peeled -eggplant -turnips, roots -kohlrabi -escarole -zucchini -lettuce -kale -squash -gupta beans -leeks -mushrooms -mustard greens -onions -okra -potatoes,white -parsley -peas, canned -peppers, green -snow peas -pokeweed -tomato, fresh -rutabagas -tomoato sauce -sorrel -spinach -summer squash -sweet potatoes -Qatari chard -tomato soup -watercress -yams Condiments Low Oxalate Moderate Oxalate High Oxalate -any not listed -basil, fresh -cinnamon, ground -malt, powder -parsley, raw -pepper -pepper, more than 1tsp/day -ashley -soy sauce documented in this encounter Procedure Notes * Dougie Husain Jr., MD - 06/04/2016 2:40 PM EDTAssociated Order(s): CYSTO, STENT REMOVAL Pre-Procedure Diagnose(s): Nephrolithiasis HPI: Igor Woodruff returns for left ureteral stent removal after undergoing left ureteroscopy. This pleasant 41 year old gentleman has [...] unremarkable postoperative course, tolerated the stent well (better than his prior stent), and presents today for planned stent removal. PMHx: Crohn's disease; nephrolithiasis PSHx: ureteroscopy; small bowel resection SocHx: no tobacco Imaging Studies: I independently reviewed the CT which confirmed the now- treated, solitary 7mm leftrenal stone Stone analysis: 90% Calcium oxalate monohydrate; 10% Calcium oxalate dihydrate We discussed the procedure, risks and planned benefit. We discussed the need to remove the stent asthey cannot stay in indefinitely, as well as the risk of possible need for stent or nephrostomy replacement if there was any residual or future ureteral obstruction. Informed consent was obtained. Igor Woodruff was taken to the cystoscopy room and prepped and draped by our urology nurse. Prophylactic antibiotic administration was confirmed. Topical viscous lidocaine gel was applied to the urethra for local anesthetic. A timeout was performed. Flexible cystoscopy was performed. The urethrawas without abnormality. The bladder was entered and inspected. No focal mucosal abnormality was seen. The stent was seen emanating from the left ureteral orifice. It was grasped and extracted. It was inspected and found to be intact. He tolerated the procedure well. I instructed Igor Woodruff of the need to return in approximately 6 weeks for renal ultrasound to ensure that there is no residual hydronephrosis. I cautioned him to contact us immediately with increasing pain, fever, or chills as this could suggest obstruction and may need to be further evaluated on an urgent or emergent basis. I have asked him to call with any additional questions. Impression/Plan: CaOx urolithiasis, now s/p ureteroscopy 1)Doing well s/p URS. Stent removed without difficulty 2)CaOx urolithiasis. We reviewed at length dietary modifications for those with CaOx stones. We specifically discussed the role of a low oxalate, low sodium diet with increased hydration, targeting 2liters urine output daily. We discussed the estimated 50% recurrence rate, as well as the fact thatthis is decreased by instituting the above noted dietary changes. I offered metabolic evaluation given his Crohn's disease associated with the stone. For now, he will wait follow up imaging to assess for any early recurrence. documented in this encounter Plan of Treatment Upcoming Encounters Date Type Department Care Team (Latest Contact Info) Description 04/01/2024 12:35 PM EST Hospital Encounter [place] [address] Apurva Vivas MD [facility] [place] [address] 04/01/2024 12:35 PM EST - 04/01/2024 2:17 PM EST Surgery [place] [address] Apurva Vivas MD [facility] [place] [address] ANORECTAL EXAM, REQUIRING ANESTHESIA, DIAGNOSTIC (WRVU 1.8) 04/26/2024 3:00 PM EST Office [place] [phone] Apurva Vivas MD [facility] [place] [address] Scheduled Procedures Name Priority Associated Diagnoses Date/Ti [...] 017 9:39 PM EDT) No Perri Sousa, [facility] Note: Patient's specific [...] Procedure Name Priority Date/Time Associated Diagnosis Comments CYSTO, STENT REMOVAL Routine 06/04/2016 3:43 PM EDT Nephrolithiasis documented in this encounter Results * Cysto, Stent Removal, clinic (06/04/2016 3:43 PM EDT) Narrative Dougie Husain Jr., MD - 06/04/2016 3:43 PM EDT Dougie Husain Jr., MD ? 06/04/2016 ??3:43 PM HPI: ??Igor Woodruff returns for left ureteral stent removal after undergoing left ureteroscopy. This pleasant 41 year old gentleman has a history of Crohn's disease and has previously undergone resection of terminal ileum. He underwent left ureteroscopy on 05/23/16. ??Intraoperative findings were notable for a left renal stone seen in lower pole calyx, which was moved to upper pole, fragmented with laser, and all fragments were removed. No further stones seen in renal pelvis or ureter. ??He had an unremarkable postoperative course, tolerated the stent well (better than his prior stent), and presents today for planned stent removal. PMHx: Crohn's disease; nephrolithiasis PSHx: ureteroscopy; small bowel resection SocHx: no tobacco Imaging Studies: I independently reviewed the ??CT which confirmed the now-treated, solitary 7mm left renal stone Stone analysis: ??90% Calcium oxalate monohydrate; 10% Calcium oxalate dihydrate We discussed the procedure, risks and planned benefit. We discussed the need to remove the stent as they cannot stay in indefinitely, as well as the risk of possible need for stent or nephrostomy replacement if there was any residual or future ureteral obstruction. Informed consent was obtained. Igor Woodruff was taken to the cystoscopy room and prepped and draped by our urology nurse. ??Prophylactic antibiotic administration was confirmed. ??Topical viscous lidocaine gel was applied to the urethra for local anesthetic. A timeout was performed. ??Flexible cystoscopy was performed. ??The urethra was without abnormality. ??The bladder was entered and inspected. ??No focal mucosal abnormality was seen. ??The stent was seen emanating from the left ureteral orifice. ??It was grasped and extracted. ?? It was inspected and found to be intact. ??He tolerated the procedure well. ?? I instructed ??Igor Woodruff ??of the need to return in approximately 6 weeks for renal ultrasound to ensure that there is no residual hydronephrosis. ??I cautioned him to contact us immediately with increasing pain, fever, or chills as this could suggest obstruction and may need to be further evaluated on an urgent or emergent basis. ??I have asked him to call with any additional questions. Impression/Plan: CaOx urolithiasis, now s/p ureteroscopy 1)Doing well s/p URS. Stent removed without difficulty 2)CaOx urolithiasis. We reviewed at length dietary modifications for those with CaOx stones. We specifically discussed the role of a low oxalate, low sodium diet with increased hydration, targeting 2 liters urine output daily. We discussed the estimated 50% recurrence rate, as well as the fact that this is decreased by instituting the above noted dietary changes. ?? I offered metabolic evaluation given his Crohn's disease associated with the stone. For now, he will wait follow up imaging to assess for any early recurrence. Dougie Husain Jr., MD URO PROCEDURE W RF L ORDERABLES documented in this encounter Visit Diagnoses Diagnosis Nephrolithiasis Calculus of kidney documented in this encounter Care Teams Insulator Technician Relationship Specialty Start Date End Date Irwin Gonsalez DO [facility] [address] [place] [address] PCP - General 05/01/11 documented as of this encounter
--- OUTSIDE RECORDS SUMMARY | 2024-03-10 02:00 | XMS_ITS | Encounter Summary ---
Author Organization [facility] [place] [address] Care Team Providers Care Game Bird Farmer Name Role Phone Irwin Gonsalez DO Primary Care Provider [phone] Reason for Visit * Auth/Cert Specialty Diagnoses / Procedures Referred By Haresh powers Referred To Contact Diagnoses Restage Crohn's disease (IVCS) Procedures PRO COLONOSCOPY, DIAGNOSTIC COLONOSCOPY, DIAGNOSTIC Referral ID Status Reason Start Date Expiration Date Visits Re quested Visits Authorized [id number] 1 1 Encounter Details Date Type Department Care Team (Late st Contact Info) Description 02/09/2017 3:30 PM EST - 02/09/2017 4:15 PM EST Surgery [place] [phone] Corky Hollingsworth MD [facility] [place] [address] COLONOSCOPY, DIAGNOSTIC (WRVU 3.26) Social History Tobacco Use Types Packs/Day Years [...] to be checked. Thursday-Thursday Same Day Endo [phone]-8p Otherwise contact [phone] and ask to speak to the senior accounting clerk manager contact Follow up care is a garcia part [...] ??? Perianal abscess, right posterior K61.0 ??? Ykfmhnt-ru-vui K60.3 Medications: Reviewed in EDH No Known [...] PM EST Hospital Encounter [place] [address] Apurva Vivas MD [facility] [place] [address] 04/01/2024 12:35 PM EST - 04/01/2024 2:17 PM EST Surgery [place] [phone] Apurva Vivas MD [facility] [place] [address] ANORECTAL EXAM, REQUIRING ANESTHESIA, DIAGNOSTIC (WRVU 1.8) 04/26/2024 3:00 PM EST Office Visit [place] [address] Apurva Vivas MD [facility] [place] [address] Scheduled Procedures Name Priority Associated Diagnoses Date/Ti me ANORECTAL EXAM, REQUIRING ANESTHESIA, DIAGNOSTIC (WRVU 1.8) perianal crohns disease w/fistula 04/01/2024 12:35 PM EST SURGICAL TREATMENT OF ANAL FISTULA COMPLEX OR MULTIPLE W\WO SETON PLACEMENT (WRVU 6.39) perianal crohns disease w/fistula 04/01/2024 12:35 PM EST documented as of this encounter Goals Goal Patient Goal Type Associated Problems Recent Progress Patient-Stated? Author DH [facility] Medication Compliance and Understanding Patient Facing Action Plan On track( 017 9:39 PM EDT) No Perri Sousa, [facility] Note: Patient's specific desired goal: [...] * COLONOSCOPY (02/09/2017 4:16 PM EST) COLONOSCOPY [facility] Endoscopy Procedure Date: 02/09/2017 4:16 PM ? Patient Name: Igor Woodruff ? Date of : 1975 ? Age: 41 ? Order #: [id number] ? Instrument Name: [id number] ? Procedure: ? Colonoscopy Indications: ? Disease [...] preparation was evaluated using ? the BBPS ([place] Bowel Preparation ? Scale) with scores of: [...] Diagnosis Crohn's disease of small intestine with fistula Regional enteritis of small intestine documented in this encounter Administered Medications Inactive Administered Medications - up to 3 most recent administrations Medication Order MAR Action Action Date Dose Rate Site fentaNYL 50 mcg/mL multi-dose injection ONCE PRN, Starting on Thu02/09/17 at 1629, Until Thu02/09/17 at 1918, Intra-Operative (Intra-Procedure), Routine Given 02/09/2017 4:39 PM EST 50 mcg Given 02/09/2017 4:36 PM EST 50 mcg Given 02/09/2017 4:32 PM EST 50 mcg lactated Ringers infusion 100 mL/hr, Intravenous, CONTINUOUS, Starting on Thu02/09/17 at 1545, Until Thu02/09/17 at 1918 midazolam (PF) (VERSED) 1 mg/mL multi-dose injection ONCE PRN, Starting on Thu02/09/17 at 1629, Until Thu02/09/17 at 1918, Intra-Operative (Intra-Procedure), Routine Given 02/09/2017 4:39 PM EST 1 mg Given 02/09/2017 4:35 PM EST 1 mg Given 02/09/2017 4:32 PM EST 1 mg documented in this [...] Perez RN)1632 (Given - Provider: Melanie Perez, RN)1635 (Given - Provider: Melanie Perez, RN)1639 (Given - Provider: Melanie Perez, RN) documented in this encounter Care Teams Game Bird Farmer Relationship Specialty Start Date End Date Irwin Gonsalez DO [address] [place] [address] PCP - General 05/01/11 documented as of this encounter
--- OUTSIDE RECORDS SUMMARY | 2024-03-10 02:00 | XMS_ITS | Encounter Summary ---
Author Organization [facility] Address [facility] [place] [address] Care Team Providers Care Canal Equipment Mechanic Name Role Phone Irwin Gonsalez DO Primary Care Provider Encounter Details Date Type Department Care Team (Late st Contact Info) Description 05/05/2017 Refill [place] [phone] Ramonita Pandey MD [facility] [place] [address] Social History Tobacco Use Types Packs/Day Years [...] PM EST Hospital Encounter [place] [phone] Apurva Vivas MD [facility] [place] [address] 04/01/2024 12:35 PM EST - 04/01/2024 2:17 PM EST Surgery [place] [address] Apurva Vivas MD [facility] [place] [address] ANORECTAL EXAM, REQUIRING ANESTHESIA, DIAGNOSTIC (WRVU 1.8) 04/26/2024 3:00 PM EST Office [place] [phone] Apurva Vivas MD [facility] [place] [address] Scheduled Procedures Name Priority Associated Diagnoses Date/Ti [...] on filedocumented in this encounter Care Teams Canal Equipment Mechanic Relationship Specialty Start Date End Date Irwin Gonsalez DO [address] [place] [address] [address] [place] [address] PCP - General 05/01/11 documented as of this encounter
--- OUTSIDE RECORDS SUMMARY | 2024-03-10 02:00 | XMS_ITS | Encounter Summary ---
[place] [address] Care Team Providers Care Laundry Attendant Name Role Phone Irwin Gonsalez DO Primary Care Provider Reason for Visit * Reason Comments Medication Management Encounter Details Date Type Department Care Team (Late st Contact Info) Description 02/18/2017 Specialty [place] [phone] Power Billings[facility] Social History Tobacco Use Types [...] Progress Notes * Power Billingsley RPH - 02/18/2017 4:34 PM EST Clinical Management Plan: Refill Specialty Pharmacy Consultation; Power Billingsley RPH Comprehensive Medication Management (CMM) Igor Sherine [...] refill. Assessment and Recommendations: General Medication Management Type of medication management: chronic disease management, targeted medication review Recipient: beneficiary Visit type: follow-up Method of contact: by telephone Cognitive ability: good Allergies and Drug intolerance: No Known Allergies Medication Reconciliation Discrepancies (compared to [facility] med list) - no problems noted New medications: no New medical conditions: no [...] at the appointment and that [facility] is providing recommendations (summary located at top of note) for provider review and follow up. Power Billingsley RPH 02/18/17 4:36 PM documented in this encounter Plan of Treatment Upcoming Encounters Date Type Department Care Team (Latest Contact Info) Description 04/01/2024 12:35 PM EST Hospital Encounter [place] [address] Apurva Vivas MD [facility] [place] [address] 04/01/2024 12:35 PM EST - 04/01/2024 2:17 PM EST Surgery [place] [address] Apurva Vivas MD [facility] [place] [address] ANORECTAL EXAM, REQUIRING ANESTHESIA, DIAGNOSTIC (WRVU 1.8) 04/26/2024 3:00 PM EST Office [place] [address] Apurva Vivas MD [facility] [place] [address] Scheduled Procedures Name Priority Associated Diagnoses Date/Ti me ANORECTAL EXAM, REQUIRING ANESTHESIA, DIAGNOSTIC (WRVU 1.8) perianal crohns disease w/fistula 04/01/2024 12:35 PM EST SURGICAL TREATMENT OF ANAL FISTULA COMPLEX OR MULTIPLE W\WO SETON PLACEMENT (WRVU 6.39) perianal crohns disease w/fistula 04/01/2024 12:35 PM EST documented as of this encounter Goals Goal Patient Goal Type Associated Problems Recent Progress Patient-Stated? Author [facility] Medication Compliance and Understanding Patient Facing [...] as of this encounter Visit Diagnoses Diagnosis Medication management Encounter for long-term (current) use of other medications documented in this encounter Care Teams Laundry Attendant Relationship Specialty Start Date End Date Irwin Gonsalez DO [address] [place] [address] [address] [place] [address] PCP - General 05/01/11 documented as of this encounter
--- OUTSIDE RECORDS SUMMARY | 2024-03-10 02:01 | XMS_ITS | Encounter Summary ---
[place] [address] Care Team Providers Care Therapist Occupational Name Role Phone Irwin Gonsalez DO Primary Care Provider [phone] Encounter Details Date Type Department Care Team (Late st Contact Info) Description 04/11/2016 [place] [address] Brenden Dugan, CUSTOMER CARE REPRESENTATIVE Social History Tobacco Use Types Packs/Day Years [...] Progress Notes * Brenden Dugan CPHT - 04/11/2016 1:30 PM EST [facility] [place] Authorization Medication: Humira RX Insurance: LE[employer]N ([facility]) Insurance Phone #: [phone] Insurance Fax #: [phone] ID #: [id number] Spoke With: MARCOS Reference #: [id number] Date MARCOS Sent: 04/11/2016 Approval Date: 04/11/16-07/15/16 Pharmacy: Notes: Sent MARCOS, await response. documented in this encounter Plan of Treatment Upcoming Encounters Date Type Department Care Team (Latest Contact Info) Description 04/01/2024 12:35 PM EST Hospital Encounter [place] [address] Apurva Vivas MD [facility] [place] [address] 04/01/2024 12:35 PM EST - 04/01/2024 2:17 PM EST Surgery [place] [phone] Apurva Vivas MD [facility] [place] [address] ANORECTAL EXAM, REQUIRING ANESTHESIA, DIAGNOSTIC (WRVU 1.8) 04/26/2024 3:00 PM EST Office [place] [phone] Apurva Vivas MD [facility] [place] [address] Scheduled Procedures Name Priority Associated Diagnoses Date/Ti me ANORECTAL EXAM, REQUIRING ANESTHESIA, DIAGNOSTIC (WRVU 1.8) perianal crohns disease w/fistula 04/01/2024 12:35 PM EST SURGICAL TREATMENT OF ANAL FISTULA COMPLEX OR MULTIPLE W\WO SETON PLACEMENT (WRVU 6.39) perianal crohns disease w/fistula 04/01/2024 12:35 PM EST documented as of this encounter Visit Diagnoses Not on filedocumented in this encounter Care Teams Therapist Occupational Relationship Specialty Start Date End Date Irwin Gonsalez DO [address] [place] [address] PCP - General 05/01/11 documented as of this encounter
--- OUTSIDE RECORDS SUMMARY | 2024-03-10 02:01 | XMS_ITS | Encounter Summary ---
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) Procedures PRO SURG DIAGNOSTIC EXAM, ANORECTAL PRO I&D PERIANAL ABSCESS, SUPERFICIAL PRO PLACEMENT, SETON PRO REMOVAL ANAL FISTULA, SUBCUTANEOUS ANORECTAL EXAM, REQUIRING ANESTHESIA, DIAGNOSTIC INCISION & DRAINAGE, PERIANAL ABSCESS, SUPERFICIAL ANAL SETON PLACEMENT SURGICAL TREATMENT OF ANAL FISTULA (FISTULECTOMY\FISTULOTOMY); SUBCUTANEOUS Referral ID Status Reason Start Date Expiration Date Visits Re quested Visits Authorized [id number] 1 1 Encounter Details Date Type Department Care Team (Late st Contact Info) Description 02/26/2016 7:30 AM EST - 02/26/2016 8:53 AM EST Surgery [place] [id number] Apurva Vivas MD [facility] [place] [address] ANORECTAL EXAM, REQUIRING ANESTHESIA, DIAGNOSTIC (WRVU 1.8) Social History Tobacco Use Types Packs/Day Years [...] Sign Reading Time Taken Comments Blood Pressure 133/81 02/26/2016 8:45 AM EST Pulse 75 02/26/2016 8:45 AM EST Temperature 36.3 ??C (97.3 ??F) 02/26/2016 8:21 AM ES T Respiratory Rate 18 02/26/2016 8:45 AM EST Oxygen Saturation 98% 02/26/2016 8:45 AM EST Inhaled Oxygen Concentration - - Weight 99.1 kg (218 lb 6 oz) 02/26/2016 6:42 AM EST Height 182.9 cm (6') 02/26/2016 6:42 AM EST Body Mass Index 29.62 02/26/2016 6:42 AM EST documented in this encounter Discharge Instructions * Discharge Instructions* Sara Mallory RN - 02/26/2016 8:24 AM EST POST ANESTHESIA INSTRUCTIONS Go home, rest, use caution on stairs. Change positions slowly. Do not smoke if you are alone. Diet light to regular as tolerated today. If nausea occurs start with clear liquids and progress slowly. No driving, operating machinery, alcoholic beverages and no important decisions for 24 hours. Monitor IV site for signs and symptoms of infection: increasing redness, swelling, foul drainage, if occurs contact M.D. Patients who have had endotrachial tubes (this tube, used by anesthesia department, is passed down your throat after you are asleep, to ensure safe air passage during your operation). A sore throat is normal due to the tube. Cold liquids or soothing lozenges will help ease the discomfort. The generalized muscle aches are due to the medication given to you just before the tube is inserted. As the medication wears off, you may develop muscle soreness, which usually goes away in 12-24 hours. * Patient Instructions* Apurva Vivas MD - 02/26/2016 8:15 AM EST Images from the original note were not included. DIVISION OF COLON & RECTAL SURGERY Anorectal Surgery Patient Post-operative Discharge Instructions 1. Wound Care ?? Leave the dressing intact today and remove it tomorrow morning. If you need to move your bowels,the dressing may be removed sooner. ?? Expect some drainage - this may be residual pus, or may be a small amount of blood or mucus - this is normal / expected. ?? Please use fluffy 4x4 gauze to absorb any drainage and keep your bottom dry. ?? You may have some packing your wound that you should remove in the sitz bath tomorrow morning. ?? Please use a sitz bath or shower 3 - 4X per day (starting tomorrow morning). ?? Sitz bath instructions: Soak your buttocks in plain warm tapwater for 15 minutes 4X/day. This iscomforting and also increase blood flow to the area to aid in healing. ?? if you have a lot of swelling, try sitting on an ice-pack (frozen pea's work well). ?? You may sit on a pillow but do not sit on donut cushions as it spreads the buttocks. 2. Pain medications ?? Please take fqef-wty-kskepqm pain medications for post-operative discomfort. ?? Acetaminophen (Tylenol) 1000 mg by mouth every 6 hours. ?? Ibuprofen (Motrin/Advil) 600 mg by mouth every 6 hours with food & plenty of liquids. ?? You may alternate these medications every 3 hours; ex. Tylenol at 12pm, Ibuprofen at 3pm, Tylenol at 6pm, Ibuprofen at 9 pm. ?? In addition please use prescribed narcotic pain medication as instructed for severe pain. 3. Avoid getting constipated ?? Drink lots of water and fluids (over 2 liters per day). ?? Each morning please take a daily fiber supplement (such as Citrucel or BeneFiber), one heaping tablespoon in 8 oz. of water. (MiraLax may be recommended instead of fiber) ?? While taking narcotic pain medications please also take a stool softener (Colace 100 mg two to three times per day). ?? If you do not have a bowel movement in 48 hours then take 60 cc of Milk of Magnesia every 12 hours until you have a bowel movement. If you do not have a bowel movement after 2 doses of Milk of Magnesia please call (see below). 4. When to call ?? Fever > 101.5 F, worsening pain, active bleeding, passing blood clots ?? difficulty/inability to pass urine (urinary retention) or stool (constipation) ?? any other worrisome condition or question ?? during regular work hours call the Surgery Clinic at ?? after hours / nights / weekends / holidays: call and ask for the General Surgery Resident doctor On-Call. 4. Follow-up. You will have a post-operative follow-up appointment with your Surgical Team scheduled, usually in 2 - 6 weeks with Ms. Driver, Colorectal PA-Elvia, anorectal surgery sub-specialist,with your surgeon supervising. If you have any questions, please call . Divison of Colon and Rectal Surgery, [facility] [address] ??? [place] [address] ??? documented in this encounter Medications at Time of Discharge Medication Sig Dispensed Refills Start Date End Date alfuzosin (UROXATRAL) 10 mg Tablet Sustained Release 24 hr TAKE ONE TABLET BY MOUTH EVERY DAY 12 11/22/2015 multivitamin (THERAGRAN) Tablet Take 1 tablet by mouth daily. esomeprazole (NEXIUM) 20 mg capsule Take 20 mg by mouth every morning (before breakfast). ciprofloxacin (CIPRO) 500 mg TabletIndications:Crohn 's ileitis, with rectal bleeding Take 1 tablet by mouth 2 times daily. 40 tablet 1 12/17/2015 04/30/2016 metroNIDAZOLE (FLAGYL) 500 mg TabletIndications:Crohn 's ileitis, with rectal bleeding Take 1 tablet by mouth 2 times daily. 40 tablet 1 12/17/2015 04/30/2016 azaTHIOprine (IMURAN) 50 mg Tablet TAKE FIVE TABLETS BY MOUTH EVERY DAY 150 tablet 5 09/24/2015 05/09/2016 documented as of this encounter Progress Notes * Sara Mallory RN - 02/26/2016 8:53 AM EST 0853- discharge instructions reviewed with patient and patients . Verbalized understanding. Pt denies pain or nausea. Tolerating po well. Vs wnl. documented in this encounter H&P Notes * Apurva Vivas MD - 02/26/2016 7:08 AM EST Patient Name: Igor Woodruff Patient Age: 41 y.o. Birthdate: 1975 Admit date: 02/26/2016 Attending Physician: Apurva Vivas MD 41 yo male with crohn's disease s/p ileocecal resection, seen in clinic by Yadira Driver for anal pain. Concern for fistula on exam and MRI pelvic confirms this. He presents for seton placement. ?? Patient's last colonoscopy was performed by Dr. Matamoros on 02/25/2013 (see below for results) which did not reveal any evidence of active Crohn's disease in the colon. No history of prior anorectal surgery or procedure. ? COREFO Responses 12/26/2015 Incontinence Scale 2.77 Social Impact Scale 30.55 Frequency Scale 25 Stool Releated Aspects 16.66 Medication Scale 25 Total COREFO Score 18.26 The COREFO questionnaire is a validated questionnaire with 27 questions to assess colorectal functional outcome. Patients are asked to consider the two week period prior before filling out the questionnaire. Category scores range from zero to 100. A total score is calculated from the categories above, also ranging from zero to 100. A higher score represents an increased level of functional disturbance. ?? MRI 01/21/2016 MRI pelvis CLINICAL HISTORY: perirectal fistula protocol ?? TECHNIQUE: Multiplanar T2-weighted images with and without fat saturation within the large and small tkhus-hy-hyst; multiplanar T1-weighted gradient images pre and post intravenous gadolinium (10 mL's Gadavist) with fat saturation and a small dqmsm-yz-tmuh. ?? COMPARISON: None ?? FINDINGS: A small approximate 2 cm long, perianal fistula is noted, extending from the RIGHT posterior wall of the anus (at approximately 7:00, series 5, image 18)) to the RIGHT medial gluteal cleft (series 4- 5 images 18-21). No evidence of abscess collection. There is mild enhancement of the tissues surrounding the fistula indicating a mild degree of inflammation. Remaining visualized pelvic structures are unremarkable. No pelvic free fluid. No pelvic adenopathy, as visualized. ?? IMPRESSION Small, short, perianal fistula as described. No evidence of abscess collection. Imagin02/25/2013 Colonoscopy (Dr Matamoros) Findings: ? External hemorrhoids were found, and they were small. ? There was evidence of a prior end-to-side ? ileo-colonic anastomosis in the ascending colon. This ? was patent. This was characterized by healthy ? appearing mucosa. This was traversed. There was no ? evidence of active Crohn's disease in the colon. ? There were two small focal erosions along the ? anastomosis which was minimally friable. The ? galen-terminal ileum appeared normal without any ? recurrent Crohn's disease.. Impression: ?- External hemorrhoids. ? - Patent end-to-side ileo-colonic ? anastomosis. ? - The examined portion of the ileum ? was normal. Recommendation: ?- Continue azathioprine. ?? 05/01/2011 Colonoscopy (Dr Matamoros) Findings: ? The perianal and digital rectal examinations were ? normal. External hemorrhoids were found during ? retroflexion and were small. There was evidence of a ? prior end-to-side ileo-colonic anastomosis in the mid ? ascending colon. This was patent. There were three ? superficial erosions along the suture lines of the ? anastomosis. This was traversed easily. Biopsies were ? taken randomly of the right and the left colon. There ? was a single 1 mm erosion with a surrounding halo of ? erythema about 5 cm proximal to the anastomosis ? within the galen-ileum. Impression: ?- Very mild Crohn's ileitis ? (Rutgeerts' i1). ? - External hemorrhoids. ? - Patent end-to-side ileo-colonic ? anastomosis. ---Pathologic Diagnosis--- ? A - Right colon, biopsy: Colonic mucosa, negative for diagnostic abnormality. ? B - Left colon, biopsy: Colonic mucosa, negative for diagnostic abnormality. ? Past medical history: Patient Active Problem List Diagnosis Code ??? 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 Abnormal liver function test R79.89 ??? GERD (gastroesophageal reflux disease) K21.9 ??? Perianal abscess, right posterior K61.0 ??? Jpbopjj-pf-wug K60.3 ? Past surgical history: Past??Surgical??History Past Surgical History Procedure Laterality Date ??? Appendectomy ?? 1999 ??? Meniscectomy ?? 2002 ? arthroscopic, R knee ??? Pro lap, surg, colectomy, w/remvl term ileum ?? 10/29/2010 ?LAPAROSCOPIC ASSISTED COLECTOMY, PARTIAL, REM.TERMINAL ILEUM performed by TORITO MOHAN [facility] ??? Pro colonoscopy, biopsy ?? 05/01/2011 ? COLONOSCOPY FLEXIBLE, WITH BX performed by Ramonita MATAMOROS at [facility] ??? Pro colonoscopy, diagnostic ?? 02/25/2013 ? COLONOSCOPY, DIAGNOSTIC performed by Ramonita Matamoros MD at [facility] ?? Allergies: Review of patient's allergies indicates no known allergies. ?? Medications: Current Outpatient Prescriptions on File Prior to Visit Medication Sig Dispense Refill ??? alfuzosin (UROXATRAL) 10 mg Tablet Sustained Release 24 hr TAKE ONE TABLET BY MOUTH EVERY DAY ?? 12 ??? ciprofloxacin (CIPRO) 500 mg Tablet Take 1 tablet by mouth 2 times daily. 40 tablet 1 ??? metroNIDAZOLE (FLAGYL) 500 mg Tablet Take 1 tablet by mouth 2 times daily. 40 tablet 1 ??? azaTHIOprine (IMURAN) 50 mg Tablet TAKE FIVE TABLETS BY MOUTH EVERY DAY 150 tablet 5 ??? multivitamin (MULTIPLE VITAMIN) tablet Take 1 tablet by mouth daily. ? esomeprazole (NEXIUM) 20 mg capsule Take 20 mg by mouth every morning (before breakfast). ? No current facility-administered medications on file prior to visit. ? Social history: The patient lives in [place], [place], and works in the [employer] industry. Reports that he has never smoked. He does not have any smokeless tobacco history on file. He reports thathe drinks about 0.6 oz of alcohol per week He reports that he does not use illicit drugs. ?? Family medical history: No known colorectal cancer, colorectal polyps, diverticular disease or ulcerative colitis. One cousin with Crohn's disease. ?? Review of Systems as above, otherwise: Constitutional: Negative for fever, chills, activity change, mild fatigue and unexpected weight change. HEENT: Negative for sore throat, mouth sores and trouble swallowing. Eyes: Negative for diplopia or vision change. Respiratory: Negative for cough, shortness of breath and wheezing. Cardiovascular: Negative for chest pain, palpitations and leg swelling. Gastrointestinal: As above. Genitourinary: Negative for dysuria and difficulty urinating. Musculoskeletal: Negative. Skin: Negative. Neurological: No numbness, tingling or tremors, no fainting. Hematological: Negative for adenopathy. ?? Physical Exam: Vitals: 02/26/16 0830 BP: 124/88 Pulse: 80 Resp: 18 Temp: GEN NAD CV NSR Pulm unlabored Abd Soft, NT ND - well healed surgical incisions Rectal - deferred to OR. Impression: 1. Crohn's disease with good systemic control 2. History of perianal abscess with abscess ?? Plan: to OR for EUA, seton placement Will need to see his formulator to discuss possible changes to his medical management for Crohn's in the setting of fistula in ano. ?? 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 Condition: doing well without problems (Please see the Surgical Encounter Summary for any Implant and Specimen details pertinent to this patient.) HPI/Surgical Indications: Mr. Woodruff is a 41 yo male who presented to the colorectal surgery clinic after being referred by his formulator for 5 - 6 months of soreness on the external perianal skin. He noted a lump on the right side of the perianal skin which became quite painful. He started having clear liquid discharge, as well as pus when he would squeeze the lump. Then about 3 months ago, it exploded, and there was a lot of purulent discharge. Since that time, symptoms have been much, much better. He was noted to have an opening on the right perianal skin. He has daily drainage from it, usually clear discharge mixed with a little bit of pus or blood. There was not a definitive fistula noted in clinic and for this reason an MRI was obtained which showed a short fistula from the right posterior perianal skin. He presents for seton placement. Procedure Description: Mr. Woodruff was brought to the operating room and placed in the supine position on the operative room table. General anesthesia was induced without difficulty. He was then positioned in the high lithotomy position with candy cane strirrups and the arms on arm boards. His perineum was prepped with betadine and draped. A timeout was called confirming the patient and procedure to be performed. The procedure was started with external examination. In the anterior midline there appeared to be an old scar on the perianal skin that was about 1cm wide. There were no skin tags or external hemorrhoids. In the right posterior quadrant there was a small amount of swelling and induration with a drop of pus that was expressed with pressure. On VLADIMIR there was mild induration in the posterior midline, no masses, no fissures. Anoscopy with a medium Hill Mcnally retract revealed mild erythema in theanal canal. There was a larger area of erythema in the posterior midline. I then used a small lacrimal duct probe to interrogate the anterior midline scar - there was no evidence of fistula. I then placed the lacrimal duct probe in the right posterior skin opening and this easily passed to an internal opening in the posterior midline in the area of the erythema. No abscess was noted. A silk suture was tied to the probe and slide through the fistula and then exchanged for a vessel loop. The vessel loop was tied in placed with 3 0-silk ties and the ends were trimmed. The betadine was washed offand mesh underwear and gauze were placed. The patient was returned to the supine position and extubated in the OR without complications. Infection Bundle used? N/A Attestation: Case Date: 02/26/2016 I performed this procedure without the involvement of a resident. Apurva Vivas MD 02/26/2016 documented in this encounter Plan of Treatment Upcoming Encounters Date Type Department Care Team (Latest Contact Info) Description 04/01/2024 12:35 PM EST Hospital Encounter [place] [phone] Apurva Vivas MD [facility] [place] [address] 04/01/2024 12:35 PM EST - 04/01/2024 2:17 PM EST Surgery [place] [phone] Apurva Vivas MD [facility] [place] [address] ANORECTAL EXAM, REQUIRING ANESTHESIA, DIAGNOSTIC (WRVU 1.8) 04/26/2024 3:00 PM EST Office [place] [phone] Apurva Vivas MD [facility] [place] [address] Scheduled Procedures Name Priority Associated Diagnoses Date/Ti me ANORECTAL EXAM, REQUIRING ANESTHESIA, DIAGNOSTIC (WRVU 1.8) perianal crohns disease w/fistula 04/01/2024 12:35 PM EST SURGICAL TREATMENT OF ANAL FISTULA COMPLEX OR MULTIPLE W\WO SETON PLACEMENT (WRVU 6.39) perianal crohns disease w/fistula 04/01/2024 12:35 PM EST documented as of this encounter Procedures Procedure Name Priority Date/Time Associated Diagnosis Comments ANAL SETON PLACEMENT (WRVU 1.86) 02/26/2016 7:30 AM EST FISTULA IN ANO (CROHN'S) ANORECTAL EXAM, REQUIRING ANESTHESIA, DIAGNOSTIC (WRVU 1.8) 02/26/2016 7:30 AM EST FISTULA IN ANO (CROHN'S) documented in this encounter Visit Diagnoses Not on filedocumented in this encounter Administered Medications Inactive Administered Medications - up to 3 most recent administrations Medication Order MAR Action Action Date Dose Rate Site acetaminophen (TYLENOL) tablet 1,000 mg 1,000 mg, Oral, ONCE, 1 dose, On Thu02/26/16 at 0700, Administer with SIP of H2O only., Day of Surgery (Day of Procedure), Routine Given 02/26/2016 7:00 AM EST 1,000 mg fentaNYL (PF) 50 mcg/mL 2mL syringe 25 mcg, Intravenous, EVERY 5 MIN PRN, Pain, for 1-4 pain score, Starting on Thu02/26/16 at 0823, Until Thu02/26/16 at 1123, for 1-4 pain score Hold for respiratory rate less than 10 per minute. Maximum dose: 250 mcg over one hour., PACU Recovery fentaNYL (PF) 50 mcg/mL 2mL syringe 50 mcg, Intravenous, EVERY 5 MIN PRN, Pain, for 5-10 pain score, Starting on Thu02/26/16 at 0823, Until Thu02/26/16 at 1123, for 5-10 pain score Hold for respiratory rate less than 10 per minute. Maximum dose: 250 mcg over one hour., PACU Recovery gabapentin (NEURONTIN) capsule 600 mg 600 mg, Oral, ONCE, 1 dose, On Thu02/26/16 at 0700, Administer with SIP of H2O only., Day of Surgery (Day of Procedure), Routine Given 02/26/2016 7:00 AM EST 600 mg HYDROmorphone (DILAUDID) syringe 0.2-0.4 mg 0.2-0.4 mg, Intravenous, EVERY 5 MIN PRN, Pain, Starting on Thu02/26/16 at 0823, Until Thu02/26/16 at 1123, For moderate pain (4-6) give: 0.2 mg every 5 minute prn For severe pain (7-10) give: 0.4 mg every 5 minutes prn Maximum dose: 4 mg per hour Hold for respiratory rate less than 10 per minute., PACU Recovery lactated ringers infusion 1,000 mL 1,000 mL, at 100 mL/hr, Intravenous, CONTINUOUS, Starting on Thu02/26/16 at 0700, Until Thu02/26/16 at 1123, Day of Surgery (Day of Procedure) New Bag 02/26/2016 7:00 AM EST 1,000 mLs 100 mL/hr lidocaine (XYLOCAINE) 10 mg/mL (1 %) injection 3 mg 3 mg (0.3 mL), Subcutaneous, ONCE PRN, 1 dose, Starting on Thu02/26/16 at 0642, Until Thu02/26/16 at 1123, for discomfort with PIV insertion, Day of Surgery (Day of Procedure), Routine naloxone (NARCAN) injection 40 mcg 40 mcg, Intravenous, EVERY 5 MIN PRN, Starting on Thu02/26/16 at 0823, Until Thu02/26/16 at 1123, Opioid Reversal, for respiratory rate less than 6 or unresponsive., May repeat every every 5 minutes to increase respiratory rate. DO NOT exceed 120 mcg total dose. Notify anesthesia immediately if administered., PACU Recovery, Routine ondansetron (ZOFRAN) injection 4 mg 4 mg, Intravenous, EVERY 30 MIN PRN, Starting on Thu02/26/16 at 0823, Until Thu02/26/16 at 1123, Nausea, May repeat 4 mg once in 30 minutes. If multiple antiemetics ordered, use ondansetron first and if ineffective use prochlorperazine second and if ineffective use promethazine, PACU Recovery prochlorperazine (COMPAZINE) injection 5 mg 5 mg, Intravenous, EVERY 30 MIN PRN, 2 doses, Starting on Thu02/26/16 at 0823, Until Thu02/26/16 at 1123, Nausea, May repeat 5 mg once in 30 minutes. If multiple antiemetics ordered, use ondansetron first and if ineffective use prochlorperazine second and if ineffective use promethazine, PACU Recovery, Routine promethazine (PHENERGAN) injection 12.5 mg 12.5 mg, Intravenous, EVERY 30 MIN PRN, Nausea, Starting on Thu02/26/16 at 0823, 2 doses, Until Thu02/26/16 at 1123, If multiple antiemetics ordered, use ondansetron first and if ineffective use prochlorperazine second and if ineffective use promethazine, PACU Recovery sodium chloride 0.9 % flush 5 mL 5 mL, Intravenous, EVERY 12 HOURS, First dose on Thu02/26/16 at 0845, Until Discontinued, PACU Recovery, Routine sodium chloride 0.9 % flush 5-20 mL 5-20 mL, Intravenous, EVERY 1 MIN PRN, Starting on Thu02/26/16 at 0642, Until Thu02/26/16 at 1123, flush, Flush pertains to all indwelling lines. Flush per protocol found in the job aid using the link provided on this medication record., Day of Surgery (Day of Procedure), Routine sodium phosphates (FLEET) 19-7 gram/118 mL rectal enema 1 Bottle 1 Bottle, Rectal, ONCE, 1 dose, On Thu02/26/16 at 0700, Patient to self-administer Fleet enema on commode. If patient administered at home disregard., Day of Surgery (Day of Procedure), Routine Given 02/26/2016 7:00 AM EST 1 Bottle documented in this encounter Active and Recently Administered Medications Times are shown in EST. Scheduled Medication Order 02/24/2016 02/25/2016 02/26/2016 acetaminophen (TYLENOL) tablet 1,000 mg (COMPLETED) 1,000 mg, Oral, ONCE, 1 dose, On Thu02/26/16 at 0700, Administer with SIP of H2O only., Day of Surgery (Day of Procedure), Routine 0700 (Given - Provid er: Keerthi Guthrie RN) gabapentin (NEURONTIN) capsule 600 mg (COMPLETED) 600 mg, Oral, ONCE, 1 dose, On Thu02/26/16 at 0700, Administer with SIP of H2O only., Day of Surgery (Day of Procedure), Routine 0700 (Given - Provid er: Keerthi Guthrie RN) sodium chloride 0.9 % flush 5 mL 5 mL, Intravenous, EVERY 12 HOURS, First dose on Thu02/26/16 at 0845, Until Discontinued, PACU Recovery, Routine 0845 (Due) sodium phosphates (FLEET) 19-7 gram/118 mL rectal enema 1 Bottle (COMPLETED) 1 Bottle, Rectal, ONCE, 1 dose, On Thu02/26/16 at 0700, Patient to self-administer Fleet enema on commode. If patient administered at home disregard., Day of Surgery (Day of Procedure), Routine 0700 (Given - Provid er: Keerthi Guthrie RN) Continuous Medication Order 02/24/2016 02/25/2016 02/26/2016 lactated ringers infusion 1,000 mL 1,000 mL, at 100 mL/hr, Intravenous, CONTINUOUS, Starting on Thu02/26/16 at 0700, Until Thu02/26/16 at 1123, Day of Surgery (Day of Procedure) 0700 (New Bag - Prov ider: Keerthi Guthrie RN)0807 (Anesthesia Volume Adjustment - Provider: Dwain Feldman) PRN Medication Order 02/24/2016 02/25/2016 02/26/2016 acetaminophen (TYLENOL) tablet 1,000 mg 1,000 mg, Oral, EVERY 8 HOURS PRN, Starting on Thu02/26/16 at 0814, Until Thu02/26/16 at 1123, Pain, Maximum dose of acetaminophen is 4000 mg from all sources in 24 hours., Routine fentaNYL (PF) 50 mcg/mL 2mL syringe(Linked Group 1) 25 mcg, Intravenous, EVERY 5 MIN PRN, Pain, for 1-4 pain score, Starting on Thu02/26/16 at 0823, Until Thu02/26/16 at 1123, for 1-4 pain score Hold for respiratory rate less than 10 per minute. Maximum dose: 250 mcg over one hour., PACU Recovery fentaNYL (PF) 50 mcg/mL 2mL syringe(Linked Group 1) 50 mcg, Intravenous, EVERY 5 MIN PRN, Pain, for 5-10 pain score, Starting on Thu02/26/16 at 0823, Until Thu02/26/16 at 1123, for 5-10 pain score Hold for respiratory rate less than 10 per minute. Maximum dose: 250 mcg over one hour., PACU Recovery HYDROmorphone (DILAUDID) syringe 0.2-0.4 mg 0.2-0.4 mg, Intravenous, EVERY 5 MIN PRN, Pain, Starting on Thu02/26/16 at 0823, Until Thu02/26/16 at 1123, For moderate pain (4-6) give: 0.2 mg every 5 minute prn For severe pain (7-10) give: 0.4 mg every 5 minutes prn Maximum dose: 4 mg per hour Hold for respiratory rate less than 10 per minute., PACU Recovery lidocaine (XYLOCAINE) 10 mg/mL (1 %) injection 3 mg 3 mg (0.3 mL), Subcutaneous, ONCE PRN, 1 dose, Starting on Thu02/26/16 at 0642, Until Thu02/26/16 at 1123, for discomfort with PIV insertion, Day of Surgery (Day of Procedure), Routine naloxone (NARCAN) injection 40 mcg 40 mcg, Intravenous, EVERY 5 MIN PRN, Starting on Thu02/26/16 at 0823, Until Thu02/26/16 at 1123, Opioid Reversal, for respiratory rate less than 6 or unresponsive., May repeat every every 5 minutes to increase respiratory rate. DO NOT exceed 120 mcg total dose. Notify anesthesia immediately if administered., PACU Recovery, Routine ondansetron (ZOFRAN) injection 4 mg 4 mg, Intravenous, EVERY 30 MIN PRN, Starting on Thu02/26/16 at 0823, Until Thu02/26/16 at 1123, Nausea, May repeat 4 mg once in 30 minutes. If multiple antiemetics ordered, use ondansetron first and if ineffective use prochlorperazine second and if ineffective use promethazine, PACU Recovery prochlorperazine (COMPAZINE) injection 5 mg 5 mg, Intravenous, EVERY 30 MIN PRN, 2 doses, Starting on Thu02/26/16 at 0823, Until Thu02/26/16 at 1123, Nausea, May repeat 5 mg once in 30 minutes. If multiple antiemetics ordered, use ondansetron first and if ineffective use prochlorperazine second and if ineffective use promethazine, PACU Recovery, Routine promethazine (PHENERGAN) injection 12.5 mg 12.5 mg, Intravenous, EVERY 30 MIN PRN, Nausea, Starting on Thu02/26/16 at 0823, 2 doses, Until Thu02/26/16 at 1123, If multiple antiemetics ordered, use ondansetron first and if ineffective use prochlorperazine second and if ineffective use promethazine, PACU Recovery sodium chloride 0.9 % flush 5-20 mL 5-20 mL, Intravenous, EVERY 1 MIN PRN, Starting on Thu02/26/16 at 0642, Until Thu02/26/16 at 1123, flush, Flush pertains to all indwelling lines. Flush per protocol found in the job aid using the link provided on this medication record., Day of Surgery (Day of Procedure), Routine Linked Groups Order Group 1: fentaNYL (PF) 50 mcg/mL 2mL syringeJump to med 25 mcg, Intravenous, EVERY 5 MIN PRN, Pain, for 1-4 pain score, Starting on Thu02/26/16 at 0823, Until Thu02/26/16 at 1123, for 1-4 pain score Hold for respiratory rate less than 10 per minute. Maximum dose: 250 mcg over one hour., PACU Recovery Or fentaNYL (PF) 50 mcg/mL 2mL syringeJump to med 50 mcg, Intravenous, EVERY 5 MIN PRN, Pain, for 5-10 pain score, Starting on Thu02/26/16 at 0823, Until Thu02/26/16 at 1123, for 5-10 pain score Hold for respiratory rate less than 10 per minute. Maximum dose: 250 mcg over one hour., PACU Recovery documented in this encounter Care Teams Scarifier Operator Relationship Specialty Start Date End Date Irwin Gonsalez DO [address] [place] [address] PCP - General 05/01/11 documented as of this encounter
--- OUTSIDE RECORDS SUMMARY | 2024-03-10 02:01 | XMS_ITS | Encounter Summary ---
Author Organization [facility] Address [facility] [place] [address] Care Team Providers Care Smt Operator Name Role Phone Irwin Gonsalez DO Primary Care Provider [phone] Reason for Visit * Auth/Cert Specialty Diagnoses / Procedures Referred By Haresh powers Referred To Contact Diagnoses FISTULA IN ANO (CROHN'S) Procedures PRO SURG DIAGNOSTIC EXAM, ANORECTAL PRO I&D PERIANAL ABSCESS, SUPERFICIAL PRO PLACEMENT, SETON PRO REMOVAL ANAL FISTULA, SUBCUTANEOUS ANORECTAL EXAM, REQUIRING ANESTHESIA, DIAGNOSTIC INCISION & DRAINAGE, PERIANAL ABSCESS, SUPERFICIAL ANAL SETON PLACEMENT SURGICAL TREATMENT OF ANAL FISTULA (FISTULECTOMY\FISTULOTOMY); SUBCUTANEOUS Referral ID Status Reason Start Date Expiration Date Visits Re quested Visits Authorized [id number] 1 1 Encounter Details Date Type Department Care Team (Late st Contact Info) Description 02/26/2016 7:31 AM EST Anesthesia Event [place] [address] Kellie Montana MD [facility] [place] [address] Anesthesia Record Procedure Summary Procedure Name Responsible Anesthesiologist Anesthesia Start Time Anesthesia Stop Time ANORECTAL EXAM, REQUIRING ANESTHESIA, DIAGNOSTIC (WRVU 1.8) (Anus) Kellie Montana MD 02/26/16 0731 02/26/16 0822 Events Date Time Event Comment 02/26/2016 0731 AN Verify 0731 Start 0731 An Start Data 0741 An Induction 0743 An Intubation 0745 Anesthesia Ready 0754 Procedure Start 0808 Procedure Stop 0814 Extubation/LMA Out 0816 an stop data 0822 Recovery or ICU Handoff Millie ent care was transferred to the destination unit staff after review of the patient's medical history, current anesthetic/surgical status and plan, according to the Provider Handoff Checklist. 0822 Stop 02/27/2016 0720 Meds Name Total fentaNYL 50 mcg Propofol 300 mg Ondansetron 4 mg Dexamethasone 8 mg lactated ringers infusion 1,000 mL 400 m L * Agents Name O2 Air N2O Sevoflurane (et) * Blood No blood administrations on file. Lines, Drains, and Airways Type Details Placement Removal Incision 10/29/10; 0830; abdomen; 11/11/21 (LDA cleanup utility RA#[id number]); 1715 (LDA cleanup utility RA#[id number]) 10/29/10 0830 by Bianca Villalobos RN 11/11/21 1715 by Cisco Stevens Incision 10/29/10; 0830; abdomen (4 trocar sites); 11/11/21 (LDA cleanup utility RA#[id number]); 1715 (LDA cleanup utility RA#[id number]) 10/29/10 0830 by Bianca Villalobos RN 11/11/21 1715 by Cisco Stevens (RETIRED) Peripheral IV Line - Single Lumen 02/26/16; 0703; metacarpal vein (top of hand), left; [id number] catheter system; 18 gauge; 02/26/16; 0921 02/26/16 0703 by Keerthi Guthrie RN 02/26/16 0921 by Sara Mallory RN Supraglottic Mask Ventilation: Ea sy (1); LMA Type: iGel; LMA Size: 4; Inserted by: Gaston; Removal Date: 02/26/16; Removal Time: 81302/26/16 0743 by Karlos Thomas MD 02/26/16 0814 by Karlos Thomas MD documented in this encounter Social History Tobacco [...] OR Notes * Anesthesia Postprocedure Evaluation - Karlos Thomas - 02/26/2016 8:22 AM EST [facility] [place]esthesiology Post-procedure Note Patient: Igor Woodruff Procedure Summary Date Anesthesia Start Anesthesia Stop Room / Location 02/26/[address] [place] [address] OR / [facility] MAIN OR Procedure Diagnosis Surgeon Responsible Provider ANORECTAL EXAM, REQUIRING ANESTHESIA, DIAGNOSTIC (WRVU 1.8) (N/A Anus); ANAL SETON PLACEMENT (WRVU 3) (N/A Anus) (FISTULA IN ANO (CROHN'S)) Apurva Vivas MD Chiang, Laura M, MD All Anesthesia Providers: Anesthesiologist: Kellie Montana MD Director Facilities Maintenance: Karlos Thomas MD Last (1hr) Vitals: BP (!) (P) 127/94 (02/26/16820) Temp (P) 36.3 ??C (97.3 ??F) (02/26/16820) Pulse (P) 78 (02/26/16820) Resp (P) 16 (02/26/16820) SpO2 (P) 100 % (02/26/16820) Patient Location: [facility]U/[facility] Level of Consciousness: Conscious but Sleepy Pain Management: Satisfactory Analgesia PONV: None Cardiovascular Status: At Baseline and Hemodynamically Stable Respiratory Status: Supplemental O2 (NC or FM) Postoperative Fluid Status: Possible Anesthetic Complications: NONE apparent at time of evaluation Final Primary Anesthesia Type: General (The anesthetic type performed was the same as planned.) Comments: Patient doing well in SDP. Denies significant pain or PONV at time of my assessment. KARLOS THOMAS MD * Anesthesia Preprocedure Evaluation - Karlos Thomas - 02/25/2016 5:48 PM EST Images from the original note were not included. Pre-Anesthesia Evaluation for: Igor Woodruff a 41 y.o. male. Procedure(s): ANORECTAL EXAM, REQUIRING ANESTHESIA, DIAGNOSTIC INCISION & DRAINAGE, PERIANAL ABSCESS, SUPERFICIAL ANAL SETON PLACEMENT SURGICAL TREATMENT OF ANAL FISTULA (FISTULECTOMY\FISTULOTOMY); SUBCUTANEOUS Patient Active Problem List Diagnosis ??? Perianal abscess, right posterior ??? [id number] ??? Crohn's ileitis ??? diagnosed at age [...] disease) ??? responsive to Nexium Past Medical History Diagnosis Date ??? ABNORMAL LIVER FUNCTION TEST 07/07/2010 ??? Crohn's ileitis 07/07/2010 ??? GERD (gastroesophageal reflux disease) 07/07/2010 Past Surgical History Procedure Laterality Date ??? Appendectomy 1999 ??? Meniscectomy 2002 arthroscopic, R knee ??? Pro lap, surg, colectomy, w/remvl term ileum 10/29/2010 ??LAPAROSCOPIC ASSISTED COLECTOMY, PARTIAL, REM.TERMINAL ILEUM performed by TORITO MOHAN at [facility] MAIN OR ??? Pro colonoscopy, biopsy 05/01/2011 COLONOSCOPY FLEXIBLE, WITH BX performed by Ramonita MATAMOROS at [facility] ENDOSCOPY ??? Pro colonoscopy, diagnostic 02/25/2013 COLONOSCOPY, DIAGNOSTIC performed by Ramonita Matamoros MD at [facility] ENDOSCOPY Social History Substance Use Topics ??? Smoking [...] >3 FB Neck ROM: full Cardiovascular Assessment: cardiovascular exam normal Pulmonary Assessment: pulmonary exam normal Dental Assessment: Misc Assessment: Patient is wearing No contact(s). IV access: Peripheral line Anesthesia Plan: ASA 2 general, with a(n) intravenous induction 41yo, 103kg male with PMH significant for GERD, Crohn's disease s/p terminal ileum resection in 2010, perianal abscess/fistula to OR for anorectal exam, I&D of abscess and seton placement with Dr. Vivas. Anesthesia Hx: possible R ulnar nerve injury now resolved. Otherwise no complications in the past. Denies: CAD, SOB, CP, URI symptoms, uncontrolled GERD Good exercise tolerance PMH negative for HTN, DM, reactive airway disease, liver/kidney disease, excessive bleeding NPO status: appropriately NPO Labs reviewed Allergies reviewed Plan GA c LMA Standard ASA monitors Additional IV access as needed Karlos Thomas MD Anesthesiology, CA-1 Pager #[phone] Region - Other Informed Consent: Anesthetic plan and risks discussed with patient. Use of blood products discussed with patient who consented to blood products. Plan discussed with attending. PAT Staff Note Associated attestation - Kellie Montana MD - 02/27/2016 7:22 AM EST Attending Assessment: Patient personally seen and examined. Agree with resident note. 41 yo M w/ Crohn's and well-controlled GERD. On imuran. No prior anesthestic complications. Plan GA LMA, standard ASA monitors, PIV following discussion of benefits, indications, and risks (including but not limited to sore throat, dental injury, prolonged intubation, cardiac or neurologic event). Kellie Montana MD documented in this encounter Plan of Treatment Upcoming Encounters Date Type Department Care Team (Latest Contact Info) Description 04/01/2024 12:35 PM EST Hospital Encounter [place] [phone] Apurva Vivas MD [facility] [place] [address] 04/01/2024 12:35 PM EST - 04/01/2024 2:17 PM EST Surgery [place] [phone] Apurva Vivas MD [facility] [place] [address] ANORECTAL EXAM, REQUIRING ANESTHESIA, DIAGNOSTIC (WRVU 1.8) 04/26/2024 3:00 PM EST Office [place] [phone] Apurva Vivas MD [facility] [place] [address] Scheduled Procedures Name Priority Associated Diagnoses Date/Ti [...] MAR Action Action Date Dose Rate Site dexamethasone (DECADRON) injection PRN, Starting on Thu02/26/16 at 0745, Until Thu02/26/16 at 0822, Anesthesia Intra-op, Routine Given 02/26/2016 7:45 AM EST 8 mg fentaNYL 50 mcg/mL multi-dose injection PRN, Starting on Thu02/26/16 at 0741, Until Thu02/26/16 at 0822, Pain, Anesthesia Intra-op, Routine Given 02/26/2016 7:41 AM EST 50 mcg ondansetron (ZOFRAN) injection PRN, Starting on Thu02/26/16 at 0804, Until Thu02/26/16 at 0822, Nausea, Anesthesia Intra-op, Routine Given 02/26/2016 8:04 AM EST 4 mg propofol (DIPRIVAN) 10 mg/mL bolus injection (Anesthesia) PRN, Starting on Thu02/26/16 at 0741, Until Thu02/26/16 at 0822, Anesthesia Intra-op Given 02/26/2016 7:42 AM EST 100 mg Given 02/26/2016 7:41 AM EST 200 mg documented in this encounter Care Teams Smt Operator Relationship Specialty Start Date End Date Irwin Gonsalez DO [address] [place] [address] PCP - General 05/01/11 documented as of this encounter
--- OUTSIDE RECORDS SUMMARY | 2024-03-10 02:01 | XMS_ITS | Encounter Summary ---
Author Organization [facility] [place] [address] Care Team Providers Care Solar Sales Assessor Name Role Phone Irwin Gonsalez DO Primary Care Provider [phone] Reason for Visit * Auth/Cert Specialty Diagnoses / Procedures Referred By Haresh powers Referred To Contact Diagnoses Gross hematuria stone Procedures PRO CYSTO/URETERO/PYELOSCOPY W/LITHOTRIPSY PRO CYSTOSCOPY, INSERT URETERAL STENT CYSTOURETEROSCOPY, LITHOTRIPSY (WRVU 7.5) CYSTO, STENT PLACEMENT (WRVU 2.82) MODIFIER HOLMIUM LASER Referral ID Status Reason Start Date Expiration Date Visits Re quested Visits Authorized [id number] 1 1 Encounter Details Date Type Department Care Team (Late st Contact Info) Description 05/02/2016 9:51 AM EST Anesthesia Event [facility] [place] [address] Jeffrey Coleman MD [facility] [place] [address] Kelsey Armenta MD [facility] [place] [address] Anesthesia Record Procedure Summary Procedure Name Responsible Anesthesiologist Anesthesia Start Time Anesthesia Stop Time CYSTO, STENT PLACEMENT (WRVU 2.82) (Left: Bladder) Jeffrey Coleman MD 05/02/16 0951 05/02/16 1051 Events Date Time Event Comment 05/02/2016 0927 0951 AN Verify 0951 Start 0951 An Start Data 0953 An Induction 0957 An Intubation 1001 Anesthesia Ready 1001 Break/Relief In JEFFREY Edwards MD 1013 Procedure Start 1044 Extubation/LMA Out 1047 an stop data 1051 Stop 1053 Recovery or ICU Handoff Millie ent care was transferred to the destination unit staff after review of the patient's medical history, current anesthetic/surgical status and plan, according to the Provider Handoff Checklist. Meds Name Total Midazolam 2 mg fentaNYL 100 mcg IV Lidocaine 20 mg Propofol 200 mg Ondansetron 8 mg Dexamethasone 8 mg Succinylcholine 100 mg ciprofloxacin (CIPRO) 400mg in dextrose 5% 200mL 400 mg Propofol INF 221.45 mg Ketorolac 30 mg lactated ringers infusion 1,000 mL 300 m L * Agents Name O2 Air N2O Sevoflurane (et) * Blood No blood administrations on file. Lines, Drains, and Airways Type Details Placement Removal Incision 10/29/10; 0830; abdomen; 11/11/21 (LDA cleanup utility RA#[id number]); 1715 (LDA cleanup utility RA#[id number]) 10/29/10 0830 by Bianca Villalobos RN 11/11/21 1715 by Cisco Stevens Incision 10/29/10; 0830; abdo men (4 trocar sites); 11/11/21 (LDA cleanup utility RA#[id number]); 1715 (LDA cleanup utility RA#[id number]) 10/29/10 0830 by Bianca Villalobos RN 11/11/21 1715 by Cisco Stevens (RETIRED) Peripheral IV Line - Single Lumen 05/02/16; 0917; metacarpal vein (top of hand), left; dwhz-[id number]-bfqyuq catheter system; 20 gauge, 1 in length; SYDNEE Eric; intradermal injection, tolerated well, appears comfortable; 0; no longer indicated, catheter/device intact; 05/02/16; 1305 05/02/16 0917 by Sujey Eric RN 05/02/16 1305 by Gabriel, Ashley Anastacia, RN ETT Mask Ventilation: Ea sy (1); ETT Type: Cuffed, Oral; ETT Size: 7.5 mm; Mac Blade: 4; Notes: Asleep, Pre-O2, Stylette; Attempts: 1; Laryngoscopy Grade: 1; ETT Placement Verified By: Auscultation, Capnometry, Visual; Secured at Teeth: 21 cm; Inserted by: ADRYAN Leach; Removal Date: 05/02/16; Removal Time: 1044 05/02/16 0957 by Kacey Howell CRNA 05/02/16 1044 by Kacey Howell CRNA Supraglottic Mask Ventilation: Ea sy (1); Oral [...] OR Notes * Anesthesia Postprocedure Evaluation - Jeffrey Coleman MD - 05/02/2016 1:08 PM EST [facility] Department of Anesthesiology Post-procedure Note Patient: Igor Woodruff Procedure Summary Date Anesthesia Start Anesthesia Stop Room / Location 05/02/16 0951 1051 [facility] OR [address] [place] [address] [facility] Procedure Diagnosis Surgeon Responsible Provider CYSTO, STENT PLACEMENT (WRVU 2.82) (Left Bladder); CYSTOURETEROSCOPY, DIAGNOSTIC (WRVU 5.75) (Left Bladder); CYSTO, RETROGRADE, URETEROPYELOGRAPHY (WRVU 2.37) (Left Bladder); FLUOROSCOPY (WRVU 0.17) (Left ) (stone) Dougie Husain Jr., MD Nguyen, Tung T, MD All Anesthesia Providers: Anesthesiologist: Jeffrey Coleman MD TREE FARMER: Kacey Howell CRNA Last (1hr) Vitals: BP 106/71 (05/02/16 1255) Temp Pulse Resp SpO2 100 % (05/02/16 1225) Patient Location: PACU/[facility] Level of Consciousness: Awake and Alert Pain Management: Satisfactory Analgesia PONV: None Cardiovascular Status: At Baseline Respiratory Status: At Baseline Postoperative Fluid Status: Intravascular EUvolemia Possible Anesthetic Complications: NONE apparent at time of evaluation Final Primary Anesthesia Type: General (The anesthetic type performed was the same as planned.) Comments: * Anesthesia Preprocedure Evaluation - Jeffrey Coleman MD - 05/02/2016 8:06 AM EST Pre-Anesthesia Evaluation for: Igor Woodruff a 41 y.o. male. Procedure(s): CYSTOURETEROSCOPY, LITHOTRIPSY (WRVU 7.5) CYSTO, STENT PLACEMENT (WRVU 2.82) MODIFIER HOLMIUM LASER Patient Active Problem List Diagnosis ??? Perianal abscess, right posterior ??? [id number]-[id number] ??? Crohn's ileitis ??? diagnosed at age [...] 315, 6MMP 4217 ??? Vitamin B12 446 12/2/14 ??? Abnormal liver function test ?? ALT [...] Surgical History Procedure Laterality Date ??? Appendectomy 2000 ??? Meniscectomy 2002 arthroscopic, R knee ??? Pro lap, surg, colectomy, w/remvl term ileum 10/29/2010 ??LAPAROSCOPIC ASSISTED COLECTOMY, PARTIAL, REM.TERMINAL ILEUM performed by TORITO MOHAN at [facility] MAIN OR ??? Pro colonoscopy, biopsy 05/01/2011 COLONOSCOPY FLEXIBLE, WITH BX performed by Ramonita PANDEY at [facility] ENDOSCOPY ??? Pro colonoscopy, diagnostic 02/25/2013 COLONOSCOPY, DIAGNOSTIC performed by Ramonita Pandey MD at [facility] ENDOSCOPY ??? Pro surg diagnostic exam, anorectal N/A 02/26/2016 ANORECTAL EXAM, REQUIRING ANESTHESIA, DIAGNOSTIC (WRVU 1.8) performed by Apurva Vivas MD at [facility] MAIN OR ??? Pro placement, seton N/A 02/26/2016 ANAL SETON PLACEMENT (WRVU 3) performed by Apurva Vivas MD at [facility] MAIN OR Social History Substance Use [...] ASA 2 general, with a(n) intravenous induction Region - Other Informed Consent: Anesthetic plan and risks discussed with patient and spouse. Plan discussed with TREE FARMER. PAT Staff Note Attending NOTE Brief HPI: [...] PM EST Hospital Encounter [place] [address] Apurva Vivas MD [facility] [place] [address] 04/01/2024 12:35 PM EST - 04/01/2024 2:17 PM EST Surgery [place] [address] Apurva Vivas MD [facility] [place] [place] [address] ANORECTAL EXAM, REQUIRING ANESTHESIA, DIAGNOSTIC (WRVU 1.8) 04/26/2024 3:00 PM EST Office [place] [phone] Apurva Vivas MD [facility] [place] [address] Scheduled Procedures Name Priority Associated Diagnoses Date/Ti [...] in dextrose 5% 200mL 400 mg, Intravenous, 30 MIN PRE-OP, 1 dose, On Thu05/02/16 at 0745, Administer over 60 Minutes, Indication for (Active or Suspected): Urinary Tract/Pyelonephritis, Restricted Antibiotic: Please indicate the most appropriate choice: Pre-approved Indication (State the indication in Comments field) Given 05/02/2016 10:01 AM EST 400 mg Given 05/02/2016 9:20 AM EST 400 mg 200 mL/hr dexamethasone (DECADRON) injection PRN, Starting on Thu05/02/16 at 0956, Until Thu05/02/16 at 1053, Anesthesia Intra-op, Routine Given 05/02/2016 9:56 AM EST 8 mg fentaNYL 50 mcg/mL multi-dose injection PRN, Starting on Thu05/02/16 at 0952, Until Thu05/02/16 at 1053, Pain, Anesthesia Intra-op, Routine Given 05/02/2016 9:52 AM EST 100 mcg ketorolac (TORADOL) injection PRN, Starting on Thu05/02/16 at 1030, Until Thu05/02/16 at 1146, Pain, Anesthesia Intra-op, Routine Given 05/02/2016 10:30 AM EST 30 mg lidocaine (PF) (XYLOCAINE) 100 mg/5 mL (2 %) injection PRN, Starting on Thu05/02/16 at 0954, Until Thu05/02/16 at 1053, Anesthesia Intra-op, Routine Given 05/02/2016 9:54 AM EST 20 mg midazolam (PF) (VERSED) 1 mg/mL multi-dose injection PRN, Starting on Thu05/02/16 at 0952, Until Thu05/02/16 at 1053, Sleep, Anesthesia Intra-op, Routine Given 05/02/2016 9:52 AM EST 2 mg ondansetron (ZOFRAN) injection PRN, Starting on Thu05/02/16 at 1034, Until Thu05/02/16 at 1053, Nausea, Anesthesia Intra-op, Routine Given 05/02/2016 10:34 AM EST 8 mg propofol (DIPRIVAN) 10 mg/mL bolus injection (Anesthesia) PRN, Starting on Thu05/02/16 at 0955, Until Thu05/02/16 at 1053, Anesthesia Intra-op Given 05/02/2016 9:55 AM EST 200 mg propofol (DIPRIVAN) infusion CONTINUOUS PRN, Starting on Thu05/02/16 at 1001, Until Thu05/02/16 at 1053, Anesthesia Intra-op, Routine New Bag 05/02/2016 10:01 AM EST 50 mcg/kg/min 30.9 mL/hr succinylcholine (ANECTINE) injection PRN, Starting on Thu05/02/16 at 0956, Until Thu05/02/16 at 1053, Anesthesia Intra-op, Routine Given 05/02/2016 9:56 AM EST 100 mg documented in this encounter Care Teams Solar Sales Assessor Relationship Specialty Start Date End Date Wallace DO Irwin [address] [place] [address] PCP - General 05/01/11 documented as of this encounter
--- OUTSIDE RECORDS SUMMARY | 2024-03-10 02:01 | XMS_ITS | Encounter Summary ---
Author Organization Formerly [facility], [facility] Address [facility] [place] [address] Care Team Providers Care Boiler Operator Name Role Phone Irwin Gonsalez DO Primary Care Provider [phone] Encounter Details Date Type Department Care Team (Late st Contact Info) Description 03/05/2016 Orders Only [place] [address] Ramonita Pandey MD [facility] [place] [address] Gross hematuria Social History Tobacco Use Types Packs/Day Years Used Date Smoking Tobacco: Never Alcohol Use Standard Drinks/Week Comments Yes 1 (1 standard drink = 0.6 oz pur e alcohol) Sex and Gender Information Value Date Recorded Sex Assigned at Male 06/08/2023 4:49 PM EDT Gender Identity Not on file Sexual Orientation Not on file documented as of this encounter Progress Notes * Ramonita Pandey MD - 03/05/2016 4:38 PM EST Talked to Igor. KUB showed 7 mm stone projected over the left ureter. Discussed with Dr. Gonsalez as well. Will keep the urology apptmt for now. Was going to prescribe tamsulosin but noticed that he is on uroxatral. Confirmed that he is taking it. He will strain his urine. Will schedule ultrasound to be done same day as urology apptmt. documented in this encounter Plan of Treatment Upcoming Encounters Date Type Department Care Team (Latest Contact Info) Description 04/01/2024 12:35 PM EST Hospital Encounter [place] [address] Apurva Vivas MD [facility] [place] [address] 04/01/2024 12:35 PM EST - 04/01/2024 2:17 PM EST Surgery [place] [phone] Apurva Vivas MD [facility] [place] [address] ANORECTAL EXAM, REQUIRING ANESTHESIA, DIAGNOSTIC (WRVU 1.8) 04/26/2024 3:00 PM EST Office Visit [place] [phone] Apurva Vivas MD [facility] [place] [address] Scheduled Procedures Name Priority Associated Diagnoses Date/Ti me ANORECTAL EXAM, REQUIRING ANESTHESIA, DIAGNOSTIC (WRVU 1.8) perianal crohns disease w/fistula 04/01/2024 12:35 PM EST SURGICAL TREATMENT OF ANAL FISTULA COMPLEX OR MULTIPLE W\WO SETON PLACEMENT (WRVU 6.39) perianal crohns disease w/fistula 04/01/2024 12:35 PM EST documented as of this encounter Visit Diagnoses Diagnosis Gross hematuria documented in this encounter Care Teams Boiler Operator Relationship Specialty Start Date End Date Irwin Gonsalez DO [address] [place] [address] PCP - General 05/01/11 documented as of this encounter
--- OUTSIDE RECORDS SUMMARY | 2024-03-10 02:01 | XMS_ITS | Encounter Summary ---
Author Organization [facility] [place] [address] Care Team Providers Care Pouring Crane Operator Name Role Phone Irwin Gonsalez DO Primary Care Provider [phone] Reason for Visit * Reason Onset Date Comments Medication Refill 04/25/2016 Encounter Details Date Type Department Care Team (Late st Contact Info) Description 04/25/2016 [place] [phone] Shannan Barnard RN Social History Tobacco Use [...] PM EST Hospital Encounter [place] [phone] Apurva Vivas MD [facility] [place] [address] 04/01/2024 12:35 PM EST - 04/01/2024 2:17 PM EST Surgery [place] [address] Apurva Vivas MD [facility] [place] [address] ANORECTAL EXAM, REQUIRING ANESTHESIA, DIAGNOSTIC (WRVU 1.8) 04/26/2024 3:00 PM EST Office [place] [phone] Apurva Vivas MD [facility] [place] [address] Scheduled Procedures Name Priority Associated Diagnoses Date/Ti me ANORECTAL EXAM, REQUIRING ANESTHESIA, DIAGNOSTIC (WRVU 1.8) perianal crohns disease w/fistula 04/01/2024 12:35 PM EST SURGICAL TREATMENT OF ANAL FISTULA COMPLEX OR MULTIPLE W\WO SETON PLACEMENT (WRVU 6.39) perianal crohns disease w/fistula 04/01/2024 12:35 PM EST documented as of this encounter Visit Diagnoses Not on filedocumented in this encounter Care Teams Pouring Crane Operator Relationship Specialty Start Date End Date Irwin Gonsalez DO [address] [facility] [address] [place] [address] PCP - General 05/01/11 documented as of this encounter
--- OUTSIDE RECORDS SUMMARY | 2024-03-10 02:01 | XMS_ITS | Encounter Summary ---
Author Organization [facility] [place] [address] Care Team Providers Care Jigger Machine Operator Name Role Phone Irwin Gonsalez DO Primary Care Provider Reason for Visit * Reason Comments Medication Refill Encounter Details Date Type Department Care Team (Late st Contact Info) Description 05/09/2016 Refill [place] [address] Ramonita Pandey MD [facility] [place] [address] Social History Tobacco Use Types Packs/Day Years [...] PM EST Hospital Encounter [place] [phone] Apurva Vivas MD [facility] [place] [address] 04/01/2024 12:35 PM EST - 04/01/2024 2:17 PM EST Surgery [place] [phone] Apurva Vivas MD [facility] [place] [address] ANORECTAL EXAM, REQUIRING ANESTHESIA, DIAGNOSTIC (WRVU 1.8) 04/26/2024 3:00 PM EST Office Visit [place] [phone] Apurva Vivas MD [facility] [place] [address] Scheduled Procedures Name Priority Associated Diagnoses Date/Ti me ANORECTAL EXAM, REQUIRING ANESTHESIA, DIAGNOSTIC (WRVU 1.8) perianal crohns disease w/fistula 04/01/2024 12:35 PM EST SURGICAL TREATMENT OF ANAL FISTULA COMPLEX OR MULTIPLE W\WO SETON PLACEMENT (WRVU 6.39) perianal crohns disease w/fistula 04/01/2024 12:35 PM EST documented as of this encounter Visit Diagnoses Not on filedocumented in this encounter Care Teams Jigger Machine Operator Relationship Specialty Start Date End Date Irwin Gonsalez DO [address] [place] [address] PCP - General 05/01/11 documented as of this encounter
--- OUTSIDE RECORDS SUMMARY | 2024-03-10 02:01 | XMS_ITS | Encounter Summary ---
Author Organization [facility] [place] [address] Care Team Providers Care Rolls Mill Operator Name Role Phone Irwin Gonsalez DO Primary Care Provider Reason for Visit * Diagnostic Test (Routine) Specialty Diagnoses / Procedures Referred By Haresh powers Referred To Contact Radiology Diagnoses [id number] Perianal abscess Procedures MRI Pelvis Soft Tissue(Gi Gu Paper Products Printer)WWO Contrast MRI Pelvis w Contrast Yadira Driver PA [address] [place] [address] [place] [address] Referral ID Status Reason Start Date Expiration Date V isits Requested Visits Authorized [id number] Specialty Service Requested 01/11/2016 03/10/2016 1 1 Encounter Details Date Type Department Care Team (Latest Contact Info) Description 01/21/2016 2:32 PM EST - 01/21/2016 11:59 PM EST [place] [address] Miguel Sharma MD [id number]; Perianal abscess, right posterior Discharge Disposition: Home Social History Tobacco Use [...] 09/24/2015 05/09/2016 documented as of this encounter Plan of Treatment Upcoming Encounters Date Type Department Care Team (Latest Contact Info) Description 04/01/2024 12:35 PM EST Hospital Encounter [place] [address] Apurva Vivas MD [facility] [place] [address] 04/01/2024 12:35 PM EST - 04/01/2024 2:17 PM EST Surgery [place] [address] Apurva Vivas MD [facility] [place] [address] ANORECTAL EXAM, REQUIRING ANESTHESIA, DIAGNOSTIC (WRVU 1.8) 04/26/2024 3:00 PM EST Office [place] [phone] Apurva Vivas MD [facility] [place] [address] Scheduled Procedures Name Priority Associated Diagnoses Date/Ti me ANORECTAL EXAM, REQUIRING ANESTHESIA, DIAGNOSTIC (WRVU 1.8) perianal crohns disease w/fistula 04/01/2024 12:35 PM EST SURGICAL TREATMENT OF ANAL FISTULA COMPLEX OR MULTIPLE W\WO SETON PLACEMENT (WRVU 6.39) perianal crohns disease w/fistula 04/01/2024 12:35 PM EST documented as of this encounter Procedures Procedure Name Priority Date/Time Associated Diagnosis Comments MRI PELVIS SOFT TISSUE (GI HOME COMFORT ADVISOR) WWO CONTRAST Routine 01/21/2016 4:28 PM EST [id number] Perianal abscess, right posterior documented in this encounter Results * MRI Pelvis Soft Tissue(Gi Gu Paper Products Printer)WWO Contrast (01/21/2016 4:28 PM EST) Anatomical Region Laterality Modality Pelvis Magnetic Resonan ce Impressions 01/22/2016 8:50 AM EST Small, short, perianal fistula as described. No evidence of abscess collection. Narrative 01/22/2016 8:50 AM EST EXAMINATION: MRI PELVIS SOFT TISSUE (GI HOME COMFORT ADVISOR) WWO CONTRAST CLINICAL HISTORY: perirectal fistula protocol TECHNIQUE: Multiplanar T2-weighted images with and without fat saturation within the large and small [id number]-do-wutq; multiplanar T1-weighted gradient images pre and post intravenous gadolinium (10 mL's Gadavist) with fat saturation and a small awdva-zw-wdhr. COMPARISON: None FINDINGS: A small approximate 2 cm long, [...] free fluid. No pelvic adenopathy, as visualized. Procedure Note Bharathi Lyn MD - 01/22/2016 EXAMINATION: MRI PELVIS SOFT TISSUE (GI HOME COMFORT ADVISOR) WWO CONTRAST CLINICAL HISTORY: perirectal fistula protocol TECHNIQUE: Multiplanar T2-weighted images with and without fat saturationwithin the large and small [id number]; multiplanar T1-weighted gradient imagespre and post intravenous gadolinium (10 mL's Gadavist) with fat saturation yomaira small curis-aq-hoxy. COMPARISON: None FINDINGS: A small approximate 2 cm long, perianal fistula is noted, extending fromthe RIGHT posterior wall of the anus (at approximately 7:00, series 5, image18)) to the RIGHT medial gluteal cleft (series 4- 5 images 18-21). No evidenceof abscess collection. There is mild enhancement of the tissues surroundingthe fistula indicating a mild degree of inflammation. Remaining visualized pelvic structures are unremarkable. No pelvic freefluid. No pelvic adenopathy, as visualized. IMPRESSION Small, short, perianal fistula as described. No evidence of abscesscollection. Miguel Sharma MD IMG MRI ORDERABLES documented in this encounter Visit Diagnoses Diagnosis Rfnsjda-cv-ysx Anal fistula Perianal abscess, right posterior Abscess of anal and rectal regions documented in this encounter Administered Medications Inactive Administered Medications - up to 3 most recent administrations Medication Order MAR Action Action Date Dose Rate Site gadobutrol (GADAVIST) 1 mMol/mL injection 10 mL 10 mL, Intravenous, ONCE PRN, 1 dose, Starting on Thu01/21/16 at 1617, Until Thu01/21/16 at 1500, pelvis, Routine Given 01/21/2016 3:00 PM EST 10 mLs documented in this encounter Care Teams Rolls Mill Operator Relationship Specialty Start Date End Date Irwin Gonsalez DO [address] [place] [address] [address] [facility] 1 [place] [address] PCP - General 05/01/11 documented as of this encounter
--- OUTSIDE RECORDS SUMMARY | 2024-03-10 02:01 | XMS_ITS | Encounter Summary ---
Author Organization [facility] [place] [address] Care Team Providers Care Viticulturist Name Role Phone Irwin Gonsalez DO Primary Care Provider Encounter Details Date Type Department Care Team (Late st Contact Info) Description 01/22/2016 Telephone [place] [address] Yadira Driver PA [address] [place] [address] Social History Tobacco Use Types Packs/Day Years [...] encounter Miscellaneous Notes * Telephone Encounter - Yadira Driver PA - 01/22/2016 12:30 PM EST Called patient at home (preferred) phone number today to discuss test results. There was no answer,so I left [facility] for him to return my call to discuss results and further planning. Will await his return call. Yadira Driver PA-C Division of Colon & Rectal Surgery [facility] Pager #[phone] documented in this encounter Plan of Treatment Upcoming Encounters Date Type Department Care Team (Latest Contact Info) Description 04/01/2024 12:35 PM EST Hospital Encounter [place] [phone] Apurva Vivas MD [facility] [place] [address] 04/01/2024 12:35 PM EST - 04/01/2024 2:17 PM EST Surgery [place] [phone] Apurva Vivas MD [facility] [place] [address] ANORECTAL EXAM, REQUIRING ANESTHESIA, DIAGNOSTIC (WRVU 1.8) 04/26/2024 3:00 PM EST Office [place] [phone] Apurva Vivas MD [facility] [place] [address] Scheduled Procedures Name Priority Associated Diagnoses Date/Ti me ANORECTAL EXAM, REQUIRING ANESTHESIA, DIAGNOSTIC (WRVU 1.8) perianal crohns disease w/fistula 04/01/2024 12:35 PM EST SURGICAL TREATMENT OF ANAL FISTULA COMPLEX OR MULTIPLE W\WO SETON PLACEMENT (WRVU 6.39) perianal crohns disease w/fistula 04/01/2024 12:35 PM EST documented as of this encounter Visit Diagnoses Not on filedocumented in this encounter Care Teams Viticulturist Relationship Specialty Start Date End Date Irwin Gonsalez DO [address] [place] [address] PCP - General 05/01/11 documented as of this encounter
--- OUTSIDE RECORDS SUMMARY | 2024-03-10 02:01 | XMS_ITS | Encounter Summary ---
Author Organization Formerly [facility] Address [facility] [place] [address] Care Team Providers Care Production Team Advisor Name Role Phone Irwin Gonsalez DO Primary Care Provider [phone] Encounter Details Date Type Department Care Team (Late st Contact Info) Description 03/20/2016 [place] [address]1000 Milton Vidales MD [facility] [place] [address] Social History Tobacco Use Types Packs/Day Years [...] PM EST Hospital Encounter [place] [phone] Apurva Vivas MD [facility] [place] [address] 04/01/2024 12:35 PM EST - 04/01/2024 2:17 PM EST [place] [address] Apurva Vivas MD [facility] [place] [address] ANORECTAL EXAM, REQUIRING ANESTHESIA, DIAGNOSTIC (WRVU 1.8) 04/26/2024 3:00 PM EST Office [place] [phone] Apurva Vivas MD [facility] [place] [address] Scheduled Procedures Name Priority Associated Diagnoses Date/Ti me ANORECTAL EXAM, REQUIRING ANESTHESIA, DIAGNOSTIC (WRVU 1.8) perianal crohns disease w/fistula 04/01/2024 12:35 PM EST SURGICAL TREATMENT OF ANAL FISTULA COMPLEX OR MULTIPLE W\WO SETON PLACEMENT (WRVU 6.39) perianal crohns disease w/fistula 04/01/2024 12:35 PM EST documented as of this encounter Visit Diagnoses Not on filedocumented in this encounter Care Teams Production Team Advisor Relationship Specialty Start Date End Date Irwin Gonsalez DO [address] [place] [address] PCP - General 05/01/11 documented as of this encounter
--- OUTSIDE RECORDS SUMMARY | 2024-03-10 02:01 | XMS_ITS | Encounter Summary ---
[place] [address] Care Team Providers Care Cane Pusher Name Role Phone Irwin Gonsalez DO Primary Care Provider Reason for Referral * Diagnostic Test (Routine) - Closed Specialty Diagnoses / Procedures Referred By Contac t Referred To Contact Radiology Diagnoses Gross hematuria Procedures CT Abdomen & Pelvis wwo Contrast (Generic) Patria Barnes APRN [facility] [place] [address] [facility] [place] [address] Referral ID Status Reason Start Date Expiration Date V isits Requested Visits Authorized [id number] Closed Specialty Service Requested 03/20/2016 05/18/2016 1 1 Reason for Visit * Diagnostic Test (Routine) - Closed Specialty Diagnoses / Procedures Referred By Contac t Referred To Contact Radiology Diagnoses Gross hematuria Procedures CT Abdomen & Pelvis wwo Contrast (Generic) Patria Barnes APRN [facility] [place] [address] [facility] [place] [address] Referral ID Status Reason Start Date Expiration Date V isits Requested Visits Authorized [id number] Closed Specialty Service Requested 03/20/2016 05/18/2016 1 1 Encounter Details Date Type Department Care Team (Latest Contact Info) Description 03/21/2016 4:36 PM EST - 03/21/2016 11:59 PM EST Hospital Encounter CT Scan at [facility] [place] [address] Warren Reeves MD [facility] [place] [address] Gross hematuria Discharge Disposition: Home Social History Tobacco Use [...] 09/24/2015 05/09/2016 documented as of this encounter Miscellaneous Notes * Ancillary Services Notes - Brenden Goss - 03/21/2016 4:46 PM EST [facility] INTERVENTIONAL RADIOLOGY CT UROGRAM PROCEDURE NAME: LALY TOURE ADDRESS: [address] [place] [address] HOME PHONE: [phone] (home) [phone] (work) MOBILE NUMBER: Telephone Information: REFERRING PROVIDER: Patria Ortiz No Known Allergies PERTINENT PMH: Patient Active Problem List Diagnosis Code ??? 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 Abnormal liver function test R79.89 ??? GERD (gastroesophageal reflux disease) K21.9 ??? Perianal abscess, right posterior K61.0 ??? Brwhvlu-cv-ccw K60.3 MED'S: Prior to Admission medications Medication Sig Start Date End Date Taking? Authorizing Provider alfuzosin (UROXATRAL) 10 mg Tablet Sustained Release 24 hr TAKE ONE TABLET BY MOUTH EVERY DAY 11/22/15 PROVIDER, HISTORICAL ciprofloxacin (CIPRO) 500 mg Tablet Take 1 tablet by mouth 2 times daily. 12/17/15 Ramonita Pandey MD metroNIDAZOLE (FLAGYL) 500 mg Tablet Take 1 tablet by mouth 2 times daily. 12/17/15 Ramonita Pandey MD azaTHIOprine (IMURAN) 50 mg Tablet TAKE FIVE TABLETS BY MOUTH EVERY DAY 09/24/15 Ramonita Pandey MD multivitamin (MULTIPLE VITAMIN) tablet Take 1 tablet by mouth daily. PROVIDER, HISTORICAL esomeprazole (NEXIUM) 20 mg capsule Take 20 mg by mouth every morning (before breakfast). PROVIDER,HISTORICAL PIV PLACED: (site) MED ORDERED: LASIX 10 MG IV GIVEN @: 1655 INITIAL VITAL SIGNS: 136/77 POST VITAL SIGNS: 139/87 DISCHARGE TIME: documented in this encounter Plan of Treatment Upcoming Encounters Date Type Department Care Team (Latest Contact Info) Description 04/01/2024 12:35 PM EST Hospital Encounter [place] [address] Apurva Vivas MD [facility] [place] [address] 04/01/2024 12:35 PM EST - 04/01/2024 2:17 PM EST Surgery [place] [phone] Apurva Vivas MD [facility] [place] [address] ANORECTAL EXAM, REQUIRING ANESTHESIA, DIAGNOSTIC (WRVU 1.8) 04/26/2024 3:00 PM EST Office Visit General Surgery at [facility] [place] [address] Apurva Vivas MD [facility] [place] [address] Scheduled Procedures Name Priority Associated Diagnoses Date/Ti me ANORECTAL EXAM, REQUIRING ANESTHESIA, DIAGNOSTIC (WRVU 1.8) perianal crohns disease w/fistula 04/01/2024 12:35 PM EST SURGICAL TREATMENT OF ANAL FISTULA COMPLEX OR MULTIPLE W\WO SETON PLACEMENT (WRVU 6.39) perianal crohns disease w/fistula 04/01/2024 12:35 PM EST documented as of this encounter Procedures Procedure Name Priority Date/Time Associated Diagnosis Comments CT ABD/PELVIS W OR WO CONTRAST Routine 03/21/2016 5:07 PM EST Gross hematuria documented in this encounter Results * CT Abdomen & Pelvis wwo Contrast (Generic) (03/21/2016 5:07 PM EST) Anatomical Region Laterality Modality Abdomen, Pelvis Computed Tomogra phy Impressions 03/21/2016 5:35 PM EST 1. ??7 mm calculus within the dependent portion of the left renal pelvis. No obstruction currently. Very mild periureteric stranding at the level of the left ureteropelvic junction is of uncertain significance; perhaps the stone had previously lodged in this location and this represents residual inflammation. Clinical correlation needed. 2. ??8 mm low-density left renal lesion too small to characterize, possibly a cyst. Narrative 03/21/2016 5:35 PM EST EXAMINATION: CT ABDOMEN AND PELVIS WWO CONTRAST (GENERIC) CLINICAL HISTORY: gross hematuria-? source. hx of Crohn's and perianal fistula as well, recent MRE TECHNIQUE: Helical CT of the abdomen and pelvis was performed prior to and following intravenous administration of 110 ml of Omnipaque 350, per nodule phase hematuria protocol. CT 03/26/2010, MR pelvis 01/21/2016 3D VR and MIP images were reformatted on a separate workstation and reviewed as part of this study. COMPARISON: None FINDINGS: Right kidney and ureter: No calculi. ??No hydronephrosis or hydroureter. ??No renal lesions. ??No filling defect in the collecting system. Left kidney and ureter: Dependently within the renal pelvis is a 7 mm rounded calcification. No additional calculi. No collecting system dilatation. ? An 8 mm circumscribed low-attenuation lesion in the mid left kidney is too small to characterize however is favored to represent a cyst. ?? Other than the calculus, no additional filling defects are visualized within the renal collecting system. Of note there is mild stranding surrounding the ureteropelvic junction. Urinary bladder: No calculi or wall thickening. Liver: Normal size and attenuation without focal lesions. Patent hepatic and portal veins. Gallbladder and biliary system: No calcified stones or biliary ductal dilation. Spleen: Normal. Pancreas: Normal. Adrenal glands: Normal. Lung bases unremarkable. No free fluid in the abdomen or pelvis. No abdominal or pelvic lymphadenopathy. Bowel and mesentery: High density linear structure is noted in the 12:00 position of the anal region likely draining the recently demonstrated perianal fistula. There are no inflammatory changes surrounding this or within the ischioanal fat. There are scattered colonic diverticuli without associated inflammation. An ileocolonic anastomosis is seen in the right mid abdomen. No dilated loops of small bowel or bowel wall thickening. No mesenteric inflammatory change. Osseous structures: No suspicious lesions. Procedure Note Elen Rutherford MD - 03/21/2016 EXAMINATION: CT ABDOMEN AND PELVIS WWO CONTRAST (GENERIC) CLINICAL HISTORY: gross hematuria-? source. hx of Crohn's and perianalfistula as well, recent MRE TECHNIQUE: Helical CT of the abdomen and pelvis was performed prior toand following intravenous administration of 110 ml of Omnipaque 350, pernodule phase hematuria protocol. CT 03/26/2010, MR pelvis 01/21/2016 3D VR and MIPimages were reformatted on a separate workstation and reviewed as part of thisstudy. COMPARISON: None FINDINGS: Right kidney and ureter: No calculi. No hydronephrosis or hydroureter.No renal lesions. No filling defect in the collecting system. Left kidney and ureter: Dependently within the renal pelvis is a 7 mmrounded calcification. No additional calculi. No collecting system dilatation. An 8 mm circumscribed low-attenuation lesion in the mid left kidney is toosmall to characterize however is favored to represent a cyst. Other than the calculus, no additional filling defects are visualized within the renal collecting system. Of note there is mild stranding surrounding theureteropelvic junction. Urinary bladder: No calculi or wall thickening. Liver: Normal size and attenuation without focal lesions. Patent hepaticand portal veins. Gallbladder and biliary system: No calcified stones or biliary ductaldilation. Spleen: Normal. Pancreas: Normal. Adrenal glands: Normal. Lung bases unremarkable. No free fluid in the abdomen or pelvis. No abdominal or pelvic lymphadenopathy. Bowel and mesentery: High density linear structure is noted in the 12:00 position of the anal region likely draining the recently demonstratedperianal fistula. There are no inflammatory changes surrounding this or withinthe ischioanal fat. There are scattered colonic diverticuli withoutassociated inflammation. An ileocolonic anastomosis is seen in the right mid abdomen.No dilated loops of small bowel or bowel wall thickening. No mesenteric inflammatory change. Osseous structures: No suspicious lesions. IMPRESSION 1. 7 mm calculus within the dependent portion of the left renal pelvis.No obstruction currently. Very mild periureteric stranding at the level ofthe left ureteropelvic junction is of uncertain significance; perhaps the stonehad previously lodged in this location and this represents residualinflammation. Clinical correlation needed. 2. 8 mm low-density left renal lesion too small to characterize, possiblya cyst. Warren Reeves MD G CT ORDERABLES documented in this encounter Visit Diagnoses Diagnosis Gross hematuria documented in this encounter Administered Medications Inactive Administered Medications - up to 3 most recent administrations Medication Order MAR Action Action Date Dose Rate Site furosemide (LASIX) 10 mg/mL injection 1 dose, Starting on Thu03/21/16 at 1652, Until Thu03/21/16 at 1700, PATRICK STAFFORD: cabinet override furosemide (LASIX) injection 10 mg 10 mg, Intravenous, ONCE, 1 dose, On Thu03/21/16 at 0830, Routine Given 03/21/2016 5:00 PM EST 10 mg iohexol (OMNIPAQUE) 350 mg/mL solution 38,500 mg 38,500 mg (110 mL), Intravenous, ONCE PRN, 1 dose, Starting on Thu03/21/16 at 1641, Until Thu03/21/16 at 1642, Per Protocol, Warning Vesicant/Irritant Medication , Routine Given 03/21/2016 4:42 PM EST 38,500 mg documented in this encounter Care Teams Cane Pusher Relationship Specialty Start Date End Date Irwin Gonsalez DO [address] [place] [address] [address] [facility] [address] [place] [address] PCP - General 05/01/11 documented as of this encounter
--- OUTSIDE RECORDS SUMMARY | 2024-03-10 02:01 | XMS_ITS | Encounter Summary ---
[place] [address] Care Team Providers Care Court Bailiff Or Sheriff Name Role Phone Irwin Gonsalez DO Primary Care Provider Reason for Visit * Consultation (Routine) - Closed Specialty Diagnoses / Procedures Referred By Haresh powers Referred To Contact Urology Diagnoses Hematuria Ramonita Matamoros MD [facility] [place] [address] [facility] [place] [address] Referral ID Status Reason Start Date Expiration Date V isits Requested Visits Authorized [id number] Closed Consult, Test & Treat 03/04/2016 03/04/2017 1 1 Encounter Details Date Type Department Care Team (Late st Contact Info) Description 04/30/2016 2:40 PM EST [place] [address] Lexy Choi MD [facility] [place] [address] Gross hematuria (Primary Dx); Renal calculus Social History Tobacco Use Types Packs/Day Years [...] Sign Reading Time Taken Comments Blood Pressure 147/101 04/30/2016 3:05 PM EST Pulse 97 04/30/2016 3:05 PM EST Temperature - - Respiratory Rate - - Oxygen Saturation - - Inhaled Oxygen Concentration - - Weight 103 kg (227 lb) 04/30/2016 3:05 PM EST Height 182.9 cm (6') 04/30/2016 3:05 PM EST Body Mass Index 30.79 04/30/2016 3:05 PM EST documented in this encounter Progress Notes * Lexy Choi MD - 04/30/2016 2:40 PM EST I had the pleasure of meeting Mr. Woodruff in clinic today in consultation for gross hematuria. Hewas referred for urological consultation by Timothy. I personally reviewed Igor Woodruff's previous records in detail today. These show that he is a 41 y.o. male who is being followed by Dr. Aguirre in gastroenterology for Crohn???s disease. Whenhe was seen on 03/04/16, he reported gross hematuria - both bright red urine as well as clots. He was thus referred to see me for further evaluation and management. Today, he states that his hematuria is not every day. For example, after playing hockey, he was peeing blood pretty bad. This was 2 days ago. Since yesterday morning, the urine was clear and yellowagain. He has no pain associated with the hematuria. He feels like the bleeding is related to activity. No dysuria. No history of trauma. This hematuria has been going on for approximately 8 weeks now. Regarding his voiding, he notes a decreased flow since his most recent bowel surgeries in 2012. HisIPSS today is 8 with a BI of 1. Of note, he is on alfuzosin which helps with his stream. He has been on this for 2.5 to 3 years. He denies any history of prior stones, urinary infections, or urologic trauma. The patient denies any prior history of cancer. His family history is negative for any urologic malignancies. He does not have any history of tobacco use. PMH: Patient Active Problem List Diagnosis Code ??? 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 Abnormal liver function test R79.89 ??? GERD (gastroesophageal reflux disease) K21.9 ??? Perianal abscess, right posterior K61.0 ??? Uhpujrn-mr-hjp K60.3 Past Surgical History Procedure Laterality Date ??? Appendectomy 2000 ??? Meniscectomy 2002 arthroscopic, R knee ??? Pro lap, surg, colectomy, w/remvl term ileum 10/29/2010 ??LAPAROSCOPIC ASSISTED COLECTOMY, PARTIAL, REM.TERMINAL ILEUM performed by TORITO MOHAN at [facility] MAIN OR ??? Pro colonoscopy, biopsy 05/01/2011 COLONOSCOPY FLEXIBLE, WITH BX performed by Ramonita MATAMOROS at [facility] ENDOSCOPY ??? Pro colonoscopy, diagnostic 02/25/2013 COLONOSCOPY, DIAGNOSTIC performed by Ramonita Matamoros MD at [facility] ENDOSCOPY ??? Pro surg diagnostic exam, anorectal N/A 02/26/2016 ANORECTAL EXAM, REQUIRING ANESTHESIA, DIAGNOSTIC (WRVU 1.8) performed by Apurva Vivas MD at [facility] MAIN OR ??? Pro placement, seton N/A 02/26/2016 ANAL SETON PLACEMENT (WRVU 3) performed by Apurva Vivas MD at [facility] MAIN OR Current Outpatient Prescriptions: ??? Adalimumab 40 mg/0.8 mL Pen Injector Kit, Inject 0.8 mLs subcutaneously every 14 days., Disp: 6kit, Rfl: 1 ??? alfuzosin (UROXATRAL) 10 mg Tablet Sustained Release 24 hr, TAKE ONE TABLET BY MOUTH EVERY DAY,Disp: , Rfl: 12 ??? azaTHIOprine (IMURAN) 50 mg Tablet, TAKE FIVE TABLETS BY MOUTH EVERY DAY, Disp: 150 tablet, Rfl: 5 ??? multivitamin (MULTIPLE VITAMIN) tablet, Take 1 tablet by mouth daily., Disp: , Rfl: ??? esomeprazole (NEXIUM) 20 mg capsule, Take 20 mg by mouth every morning (before breakfast)., Disp: , Rfl: No Known Allergies Social History Social History ??? Marital status: Spouse name: N/A ??? Number of children: N/A ??? Years of education: N/A Occupational History ??? Not on file. Social History Main Topics ??? Smoking status: Never Smoker ??? Smokeless tobacco: Not on file ??? Alcohol use 0.6 oz/week 1 Cans of beer per week ??? Drug use: No ??? Sexual activity: Not on file Other Topics Concern ??? Not on file Social History Narrative Family History Problem Relation Age of Onset ??? Crohn Disease REVIEW OF SYSTEMS: 10 out of 14-point systems was reviewed and is as per the history. In addition, the patient notes chills, back pain (lower back pain). PHYSICAL EXAM: BP (!) 147/101 (BP Location (NBP): Left arm, Patient Position: Sitting, BP Cuff Sizes: Large Adult (32-43 cm)) Pulse 97 Ht 182.9 cm (6') Wt (!) 103 kg (227 lb) BMI 30.79 kg/m2 General: Patient is a well-appearing male in no acute distress. Head: normocephalic, atraumatic. ENT: moist mucous membranes, supple neck, midline trachea Heart: regular heart rate Lungs: respirations unlabored, no audible wheezing. Abdomen: soft, nontender, nondistended, no palpable masses. Back: No flank tenderness bilaterally. : circumcised, normal-appearing meatus, bilateral descended testes, nontender, no masses. VLADIMIR: 20 gram prostate, smooth with no nodules. Extremities: warm, no lower extremity edema Neuro: awake, alert, oriented to conversation, normal gait, neurologically grossly intact LABS: Urine analysis today: + heme, +LE, negative nitrite Creatinine: Lab Results Component Value Date CREATININE 0.84 03/21/2016 PSA: No results found for: PSA IMAGING: I personally reviewed and reviewed with the patient his most recent CTU from 03/21/16. This shows a 7mm calculus floating within the left renal pelvis without obstruction, 8mm low-density left renal lesion too small to characterize, possible a cyst, and no other urinary tract abnormalities. ASSESSMENT AND PLAN: Mr. Igor Woodruff is a 41 y.o. male with a history of gross hematuria and7mm left renal pelvic stone. We discussed the nature of a hematuria work-up, including cystoscopy and CT urogram. We discussed the rationale for this work-up and what exactly it entails. He already had a CTU, negative except for the left renal pelvis non-obstructing stone. We performed cystoscopy in clinic today for further work-up, which showed a moderately sized medianlobe protruding into the bladder but no abnormal mucosal lesions. Regarding the left renal pelvic stone, we discussed that this could be the cause for his hematuria,especially as it appears to be related to activity. As such, we discussed treatment options, including ESWL and ureteroscopy with laser lithotripsy. I discussed the goals of these procedures, likelihood of success with each, alternatives, as well as possible complications with the patient today. At this point, he has elected to left ureteroscopy with laser lithotripsy. We disucssed that complications of this procedure include, but are not limited to bleeding, infection, need for further procedures, inability to remove the stone or get to the stone, injury to ureter, bladder, prostate, urethra. We also discussed that it is possible that treating the stone will not resolve his hematuria atwhich point we would have to explore other sources. He voiced understanding of all this and wishes to proceed. LEXY CHOI MD documented in this encounter Plan of Treatment Upcoming Encounters Date Type Department Care Team (Latest Contact Info) Description 04/01/2024 12:35 PM EST Hospital Encounter [place] [phone] Apurva Vivas MD [facility] [place] [address] 04/01/2024 12:35 PM EST - 04/01/2024 2:17 PM EST Surgery [place] [phone] Apurva Vivas MD [facility] [place] [address] ANORECTAL EXAM, REQUIRING ANESTHESIA, DIAGNOSTIC (WRVU 1.8) 04/26/2024 3:00 PM EST Office [place] [address] Apurva Vivas MD [facility] [place] [address] Scheduled Procedures Name Priority Associated Diagnoses Date/Ti me ANORECTAL EXAM, REQUIRING ANESTHESIA, DIAGNOSTIC (WRVU 1.8) perianal crohns disease w/fistula 04/01/2024 12:35 PM EST SURGICAL TREATMENT OF ANAL FISTULA COMPLEX OR MULTIPLE W\WO SETON PLACEMENT (WRVU 6.39) perianal crohns disease w/fistula 04/01/2024 12:35 PM EST Scheduled Referrals Name Type Priority Associated Diagnoses Orde r Schedule Referral to Urology Outpatient Referral Routine Hematuria Ordered: 03/04/2016 documented as of this encounter Visit Diagnoses Diagnosis Gross hematuria- Primary Renal calculus Calculus of kidney documented in this encounter Care Teams Court Bailiff Or Sheriff Relationship Specialty Start Date End Date Irwin Gonsalez DO [address] [place] [address] [place] [address] PCP - General 05/01/11 documented as of this encounter
--- OUTSIDE RECORDS SUMMARY | 2024-03-10 02:01 | XMS_ITS | Encounter Summary ---
Author Organization [facility] [place] [address] Care Team Providers Care Supervisor Beater Room Name Role Phone Irwin Gonsalez DO Primary Care Provider Encounter Details Date Type Department Care Team (Late st Contact Info) Description 03/26/2016 11:30 AM EST Office [place] [address] Yadira Driver PA [address] [place] [id number]; Perianal abscess, right posterior Social History Tobacco Use Types Packs/Day Years [...] Sign Reading Time Taken Comments Blood Pressure 153/92 03/26/2016 11:28 AM EST Pulse 83 03/26/2016 11:28 AM EST Temperature 36.8 ??C (98.2 ??F) 03/26/2016 1 1:28 AM EST Respiratory Rate - - Oxygen Saturation 98% 03/26/2016 11: 28 AM EST Inhaled Oxygen Concentration - - Weight 105.8 kg (233 lb 3.2 oz) 017 11:28 AM EST Height 182.9 cm (6') 03/26/2016 11:28 AM EST Body Mass Index 31.63 03/26/2016 11:28 AM EST documented in this encounter Progress Notes * Yadira Driver PA - 03/26/2016 11:30 AM EST COLON & RECTAL SURGERY Follow-Up Office Visit Interval History: Igor Woodruff is a 41 y.o. Crohn's patient (on azathioprine) who RTC today for post-op f/u s/pEUA, seton (R posterior) placement by Dr. Vivas on 02/26/2016, undertaken in response to 5-6 months of right sided perianal soreness and lump/abscess that was chronically draining. Patient reports that he has been doing well since the surgery. No new health problems have arisen. No recent f/c/n/v.He had some perianal discomfort following the surgery, but that has since resolved. The seton remains in place, with daily drainage. Patient is moving his bowels at his baseline, no blood, no pain. Physical Exam: Blood pressure (!) 153/92, pulse 83, temperature 36.8 ??C (98.2 ??F), temperature source Oral, height 182.9 cm (6'), weight (!) 105.8 kg (233 lb 3.2 oz), SpO2 98 %. Body mass index is 31.63 kg/(m^2). On physical exam, the patient appears well, in no apparent distress. Anicteric. Moist mucus membranes. No pallor. The patient was examined in the prone jackknife position with Fatmata assisting. Gentle eversion of the anoderm revealed the seton to be in place, with knots free of the skin. No surrounding erythema, no fluctuance, no active discharge. VLADIMIR and anoscopy were deferred today. 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 Patient is currently scheduled to see his butt welder next week for discussions re starting biologics. I will schedule him to RTC with Dr. Vivas in 4 months, at which time further possible planning re seton management (ie, possible removal) can be discussed, presuming the patient will have been using biologics for several weeks to months at that time. Patient is in agreement with the plan as stated herein, and will call with any questions or concerns that should arise prior to his next visit. Yadira Driver PA-C Division of Colon & Rectal Surgery [facility] Pager #[phone] CC PCP: Irwin Gonsalez DO documented in this encounter Plan of Treatment Upcoming Encounters Date Type Department Care Team (Latest Contact Info) Description 04/01/2024 12:35 PM EST Hospital Encounter [place] [address] Apurva Vivas MD [facility] [place] [address] 04/01/2024 12:35 PM EST - 04/01/2024 2:17 PM EST Surgery [place] [phone] Apurva Vivas MD [facility] [place] [address] ANORECTAL EXAM, REQUIRING ANESTHESIA, DIAGNOSTIC (WRVU 1.8) 04/26/2024 3:00 PM EST Office [place] [phone] Apurva Vivas MD [facility] [place] [address] Scheduled Procedures Name Priority Associated Diagnoses Date/Ti me ANORECTAL EXAM, REQUIRING ANESTHESIA, DIAGNOSTIC (WRVU 1.8) perianal crohns disease w/fistula 04/01/2024 12:35 PM EST SURGICAL TREATMENT OF ANAL FISTULA COMPLEX OR MULTIPLE W\WO SETON PLACEMENT (WRVU 6.39) perianal crohns disease w/fistula 04/01/2024 12:35 PM EST documented as of this encounter Visit Diagnoses Diagnosis [id number] Anal fistula Perianal abscess, right posterior Abscess of anal and rectal regions documented in this encounter Care Teams Supervisor Beater Room Relationship Specialty Start Date End Date WallaceIrwinDO [address] [place] [address] PCP - General 05/01/11 documented as of this encounter
--- OUTSIDE RECORDS SUMMARY | 2024-03-10 02:01 | XMS_ITS | Encounter Summary ---
[place] [address] Care Team Providers Care Ramp And Cargo Supervisor Name Role Phone Irwin Gonsalez DO Primary Care Provider Reason for Referral * Consultation (Routine) - Closed Specialty Diagnoses / Procedures Referred By Haresh powers Referred To Contact Urology Diagnoses Hematuria Ramonita Pandey MD [facility] [place] [address] [facility] [place] [address] Referral ID Status Reason Start Date Expiration Date V isits Requested Visits Authorized [id number] Closed Consult, Test & Treat 03/04/2016 03/04/2017 1 1 Reason for Visit * Reason Comments Follow-up Encounter Details Date Type Department Care Team (Late st Contact Info) Description 03/04/2016 4:30 PM EST Office [place] [phone] Ramonita Pandey MD [facility] [place] [address] Crohn's disease of small intestine with fistula; Hematuria Social History Tobacco Use Types Packs/Day Years [...] Sign Reading Time Taken Comments Blood Pressure 148/91 03/04/2016 4:05 PM EST Pulse 105 03/04/2016 4:05 PM EST Temperature - - Respiratory Rate - - Oxygen Saturation - - Inhaled Oxygen Concentration - - Weight 103.6 kg (228 lb 8 oz) 03/04/2016 4:05 PM EST Height 182.9 cm (6') 03/04/2016 4:05 PM EST Body Mass Index 30.99 03/04/2016 4:05 PM EST documented in this encounter Patient Instructions * Patient Instructions* Ramonita Pandey MD - 03/04/2016 4:30 PM EST # Continue azathioprine 250 mg per day. # Stop metronidazole and ciprofloxacin. # Obtain abdominal x-ray today. # Referral to urology for bloody urine # Will look into adding Humira to azathioprine, but will not start until after evaluated for blood in the urine # Plan on colonoscopy ~6 months after starting Humira # Follow-up in the office with Thi Salgado APRN in 6-8 weeks and me in 4 months documented in this encounter Progress Notes * Ramonita Pandey MD - 03/04/2016 4:30 PM EST PROBLEM LIST ??? Crohn's ileitis diagnosed at age 17 yo S/p ileocolic [...] 4217 Colonoscopy 02/2013 - no active disease. ??? Abnormal liver function test ??? GERD (gastroesophageal reflux disease) Subjective: HPI Mr. Woodruff comes back to see me for the first time since December for his Crohn's disease. He is s/p ileocolonic resection in 10/29/10. He had 19.5 cm of ileum removed. 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 His last colonoscopy was February 2013 and did not show active disease. At last visit, I had diagnosed perirectal draining fistula, which, since then, was explored by Dr. Vivas. A seton was placed in one posterior fistula. He has continued daily drainage but no pain. Continues on ciprofloxacin and metronidazole in addition to his azathioprine 250 mg per day. He is moving his bowels typically 4-5 times per day. The stool is a little more loose than usual. It is not formed. Additionally, he had heamturia over the weekend. Passed both bright red blood and darker clots. No dysuria, fever, back pain, flank pain. No pneumaturia. Was seen by Dr. Gonsalez who called me this morning. Urinalysis was notable for RBC's but not consistent with infection. There has been no apthous stomatitis, episcleritis, uveitis, inflammatory arthritis, pyoderma gangrenosum, erythema nodosum. Review of Systems Constitutional: Negative for fatigue, fever and unexpected weight change. HENT: Negative for mouth sores. Eyes: Negative for pain and redness. Respiratory: Negative for cough and shortness of breath. Cardiovascular: Negative for chest pain and palpitations. Gastrointestinal: Negative for abdominal distention, abdominal pain, blood in stool, constipation, diarrhea, nausea and vomiting. Genitourinary: As above. Musculoskeletal: Negative. Skin: Negative. Negative for rash. Objective: Physical Exam Constitutional: He appears well-nourished. No distress. HENT: Mouth/Throat: Oropharynx is clear and moist. No oropharyngeal exudate. Eyes: Conjunctivae are normal. Pupils are equal, round, and reactive to light. Abdominal: Soft. Bowel sounds are normal. He exhibits no distension and no mass. There is no tenderness. There is no rebound and no guarding. Well-healed remote surgical incisions in the midline. Genitourinary: Genitourinary Comments: Seton in tact and in the R posterlateral quadrant. No surrounding induration or fluctuance. No drainage with palpation. Slightly tender with palpation on the seton. Musculoskeletal: He exhibits no edema. Vitals reviewed. Wt Readings from Last 3 Encounters: 03/04/16 (!) 103.6 kg (228 lb 8 oz) 02/26/16 99.1 kg (218 lb 6 oz) 12/26/15 (!) 103 kg (227 lb 1.2 oz) Lab Results Component Value Date WBC 5.8 12/17/2015 RBC 5.12 12/17/2015 HGB 15.5 12/17/2015 HCT 44.6 12/17/2015 MCV 87.1 12/17/2015 MCH 30.3 12/17/2015 MCHC 34.8 12/17/2015 PLATELET 266 12/17/2015 RDWCV 12.9 12/17/2015 Lab Results Component Value Date ALT 40 12/17/2015 AST 27 12/17/2015 ALKPHOS 57 12/17/2015 BILITOT 1.3 12/17/2015 Lab Results Component Value Date CRP 0.5 12/17/2015 Assessment and Plan: Mr. 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 Complicating matters, he has new gross hematuria. I doubt the hematuria is related to his perianal disease. Recent MRE and his EUA only noted a posterior fistula, and hematuria alone without other signs or symptoms would be an atypical presentation.Will obtain a KUB today to evaluate for stones. While with one episode of gross hematuria, I would not typically jump to considering cystoscopy, but, with his long time use of azathioprine and likelyaddition of an anti-TNF, I think a through evaluation might be reasonable. I discussed this with Dr. Gonsalez today who had the same thought. Will put in urology referral. For his Crohn's, we discussed adding an anti-TNF - likely Humira - to the azathioprine. The data for closing fistulas is stronger for anti-TNF than thiopurines, and he developed the fistula despite AZA. Would plan on colonoscopy 6 months from starting anti-TNF, and we discussed that we would consider, if in remission then, stopping AZA and switch perhaps to oral MTX. We discussed the following recommendations that were printed out for the patient: # Continue azathioprine 250 mg per day. # Stop metronidazole and ciprofloxacin. # Obtain abdominal x-ray today. # Referral to urology for bloody urine # Will look into adding Humira to azathioprine, but will not start until after evaluated for blood in the urine # Plan on colonoscopy ~6 months after starting Humira # Follow-up in the office with Thi Salgado APRN in 6-8 weeks and me in 4 months 25 min of this 35 min [id number] visit was spent counseling the patient in the issues outlined above. Angelo Pandey MD Outside Plant Technicianhawk missile system crewmember Section of Gastroenterology and [place] [address] CC: IRWIN GONSALEZ DO [address] [place] [id number] documented in this encounter Plan of Treatment Upcoming Encounters Date Type Department Care Team (Latest Contact Info) Description 04/01/2024 12:35 PM EST Hospital Encounter [place] [address] Apurva Vivas MD [facility] [place] [address] 04/01/2024 12:35 PM EST - 04/01/2024 2:17 PM EST Surgery [place] [phone] Apurva Vivas MD [facility] [place] [address] ANORECTAL EXAM, REQUIRING ANESTHESIA, DIAGNOSTIC (WRVU 1.8) 04/26/2024 3:00 PM EST Office Visit General Surgery at [facility] [place] [address] Apurva Vivas MD [facility] [place] [address] Scheduled Procedures Name Priority Associated Diagnoses Date/Ti [...] Ordered: 03/04/2016 documented as of this encounter Results * XR Abdomen 1 view (Generic) (03/04/2016 5:57 PM EST) Anatomical Region Laterality Modality Abdomen N/A Digital Radiogra phy Impressions 03/04/2016 6:54 PM EST 7 mm calcification projected the expected region of the proximal left ureter. Narrative 03/04/2016 6:54 PM EST EXAMINATION: XR ABDOMEN 1 VIEW (GENERIC) CLINICAL HISTORY: 41 yo with recent hematuria. Eval for kidney stones please. TECHNIQUE: AP abdomen COMPARISON: CT March 26, 2010 FINDINGS: 7 mm calcification projected in the expected region of the proximal left ureter. No calcifications are projected over the kidneys. Right hemipelvic calcifications are phleboliths. Visualized soft tissues are unremarkable. Visualized bony structures show early degenerative changes in the lumbar spine. Procedure Note Roxana Moran MD - 03/04/2016 EXAMINATION: XR ABDOMEN 1 VIEW (GENERIC) CLINICAL HISTORY: 41 yo with recent hematuria. Eval for kidney stonesplease. TECHNIQUE: AP abdomen COMPARISON: CT March 26, 2010 FINDINGS: 7 mm calcification projected in the expected region of the proximal leftureter. No calcifications are projected over the kidneys. Right hemipelvic calcifications are phleboliths. Visualized soft tissues areunremarkable. Visualized bony structures show early degenerative changes in the lumbarspine. IMPRESSION 7 mm calcification projected the expected region of the proximal leftureter. L Timothy Pandey MD IMG DX ORDERABLES documented in this encounter Visit Diagnoses Diagnosis Crohn's disease of small intestine with fistula Regional enteritis of small intestine Hematuria Hematuria, unspecified Hematuria Hematuria, unspecified documented in this encounter Care Teams Ramp And Cargo Supervisor Relationship Specialty Start Date End Date Irwin Gonsalez DO [address] [place] [address] PCP - General 05/01/11 documented as of this encounter
--- OUTSIDE RECORDS SUMMARY | 2024-03-10 02:01 | XMS_ITS | Encounter Summary ---
Author Organization [facility] [place] [address] Care Team Providers Care Hydrate Control Tender Name Role Phone Irwin Gonsalez DO Primary Care Provider Reason for Visit * Reason Comments Follow-up Encounter Details Date Type Department Care Team (Late st Contact Info) Description 04/08/2016 2:30 PM EST Office Visit [place] [address] Nereyda Salgado, TESTER [employer] [facility] [place] [address] Crohn's disease of small intestine with other complication Social History Tobacco Use [...] Sign Reading Time Taken Comments Blood Pressure 137/89 04/08/2016 2:33 PM EST Pulse 103 04/08/2016 2:33 PM EST Temperature - - Respiratory Rate - - Oxygen Saturation - - Inhaled Oxygen Concentration - - Weight 103.1 kg (227 lb 6.4 oz) 04/08/2016 2:33 PM EST Height 182.9 cm (6') 04/08/2016 2:33 PM EST Body Mass Index 30.84 04/08/2016 2:33 PM EST documented in this encounter Progress Notes * Nereyda Salgado C, [employer] - 04/08/2016 2:30 PM EST PROBLEM LIST ??? Crohn's ileitis ?? [...] reflux disease) ? Subjective: Igor presents for routine f/u. Last seen Dr. Matamoros end of Feb 2016. At that visit, plans to start Humira after urology work-up for hematuria. His appointment with urology is scheduled mid Apr. As far as Crohn's, he feels well. He remains on Azathioprine 150 mg daily. Having bm 4-5x/day, more formed stool, no bleeding, no nocturnal BM. No abdominal pain. He is eating. No n/v. No f/c. No perianal pain, seton intact. He was seen by our CRS team earlier in the month. There has been no apthous stomatitis, episcleritis, uveitis, inflammatory arthritis, pyoderma gangrenosum, erythema nodosum. ? Review of Systems : as above the rests negative. Past Medical History Diagnosis Date ??? ABNORMAL LIVER FUNCTION TEST 07/07/2010 ??? Crohn's ileitis 07/07/2010 ??? GERD (gastroesophageal reflux disease) 07/07/2010 Past Surgical History Procedure Laterality Date ??? Appendectomy 2000 ??? Meniscectomy 2002 arthroscopic, R knee ??? Pro lap, surg, colectomy, w/remvl term ileum 10/29/2010 ??LAPAROSCOPIC ASSISTED COLECTOMY, PARTIAL, REM.TERMINAL ILEUM performed by TORITO MOHAN at [facility] MAIN OR ??? Pro colonoscopy, biopsy 05/01/2011 COLONOSCOPY FLEXIBLE, WITH BX performed by Ramonita MATAMOROS at [facility] ENDOSCOPY ??? Pro colonoscopy, diagnostic 02/25/2013 COLONOSCOPY, DIAGNOSTIC performed by Ramonita Matamoros MD at [facility] ENDOSCOPY ??? Pro surg diagnostic exam, anorectal N/A 02/26/2016 ANORECTAL EXAM, REQUIRING ANESTHESIA, DIAGNOSTIC (WRVU 1.8) performed by Apurva Vivas MD at [facility] MAIN OR ??? Pro placement, seton N/A 02/26/2016 ANAL SETON PLACEMENT (WRVU 3) performed by Apurva Vivas MD at [facility] MA[facility] OR Social History Social History ??? Marital status: [...] Relation Age of Onset ??? Crohn Disease Physical Exam Constitutional: He appears well-developed and well-nourished. No distress. Eyes: Conjunctivae are normal. No scleral icterus. Neck: Neck supple. Cardiovascular: Normal rate and regular rhythm. Pulmonary/Chest: Effort normal and breath sounds normal. No respiratory distress. Abdominal: Soft. Bowel sounds are normal. He exhibits no distension and no mass. There is no tenderness. There is no guarding. Lymphadenopathy: He has no cervical adenopathy. Neurological: He is alert. TESTINGS: Labs: Ref. Range 03/21/2016 16:32 WBC Latest Ref Range: 4.0 - 9.5 x10(3)/mcL 5.2 RBC Latest Ref Range: 4.58 - 5.54 x10(6)/mcL 4.89 Hemoglobin Latest Ref Range: 13.7 - 16.5 gm/dL 14.8 Hematocrit Latest Ref Range: 40.5 - 48.5 % 42.2 MCV Latest Ref Range: 82.9 - 93.1 fL 86.3 MCH Latest Ref Range: 27.5 - 32.1 pg 30.3 MCHC Latest Ref Range: 32.0 - 35.7 gm/dL 35.1 RDWSD Latest Ref Range: 36.0 - 45.0 fL 40.7 RDWCV Latest Ref Range: 11.4 - 13.8 % 13.0 Platelets Latest Ref Range: 145 - 357 x10(3)/mcL 251 MPV Latest Ref Range: 7.6 - 12.9 fL 9.4 nRBC % Auto Latest Units: % 0.0 nRBC Abs Auto Latest Ref Range: 0.000 - 0.000 x10(3)/mcL 0.000 Neutr Abs (ANC) Latest Ref Range: 1.70 - 6.10 x10(3)/mcL 3.02 Neutrophils % Latest Units: % 57.6 Immature Gran % Latest Units: % 0.20 Lymphocytes % Latest Units: % 33.6 Monocytes % Latest Units: % 5.7 Eosinophils % Latest Units: % 2.5 Basophils % Latest Units: % 0.4 Razia Gran Abs Latest Ref Range: 0.00 - 0.04 x10(3)/mcL 0.01 Lymphocytes Abs Latest Ref Range: 0.9 - 3.2 x10(3)/mcL 1.8 Monocyte Abs Latest Ref Range: 0.3 - 0.9 x10(3)/mcL 0.3 Eosinophils Abs Latest Ref Range: 0.0 - 0.4 x10(3)/mcL 0.1 Basophils Abs Latest Ref Range: 0.0 - 0.1 x10(3)/mcL 0.0 Creatinine Latest Ref Range: 0.80 - 1.50 mg/dL 0.84 Estimated GFR Latest Ref Range: >=60 >60 Total Protein Latest Ref Range: 6.1 - 8.0 gm/dL 7.3 Albumin Latest Ref Range: 3.2 - 5.2 gm/dL 4.4 Total Bilirubin Latest Ref Range: 0.2 - 1.3 mg/dL 1.0 Bili, Direct Latest Ref Range: 0.0 - 0.3 mg/dL 0.2 Alk Phos Latest Ref Range: 40 - 120 unit/L 54 AST Latest Ref Range: 0 - 39 unit/L 36 ALT Latest Ref Range: 0 - 55 unit/L 54 CRP High Sens Latest Units: mg/L 0.3 CRP Cardiac Risk Unknown Low Risk Ref. Range 12/17/2015 12:14 Quantiferon-TB Latest Ref Range: Negative Negative ? Assessment and Plan: Mr. 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 He is on Azathioprine. Complicating matters, he has new gross hematuria. He is scheduled to see urology in mid Apr. Plans in place to add Humira pending urology work-up for hematuria. # Continue Azathioprine 250 mg per day. # Referral to urology for hematuria # Will look into adding Humira to Azathioprine, but will not start until after evaluated for blood in the urine. In the meantime, will check insurance coverage. # Plan on colonoscopy ~6 months after starting Humira # Labs per protocol. # Follow-up with Dr. Matamoros as scheduled in August or sooner with me if needed. documented in this encounter Plan of Treatment Upcoming Encounters Date Type Department Care Team (Latest Contact Info) Description 04/01/2024 12:35 PM EST Hospital Encounter [place] [phone] Apurva Vivas MD [facility] [place] [address] 04/01/2024 12:35 PM EST - 04/01/2024 2:17 PM EST Surgery [place] [address] Apurva Vivas MD [facility] [place] [place] [address] ANORECTAL EXAM, REQUIRING ANESTHESIA, DIAGNOSTIC (WRVU 1.8) 04/26/2024 3:00 PM EST Office Visit [place] [phone] Apurva Vivas MD [facility] [place] [place] [address] Scheduled Procedures Name Priority Associated Diagnoses Date/Ti me ANORECTAL EXAM, REQUIRING ANESTHESIA, DIAGNOSTIC (WRVU 1.8) perianal crohns disease w/fistula 04/01/2024 12:35 PM EST SURGICAL TREATMENT OF ANAL FISTULA COMPLEX OR MULTIPLE W\WO SETON PLACEMENT (WRVU 6.39) perianal crohns disease w/fistula 04/01/2024 12:35 PM EST documented as of this encounter Visit Diagnoses Diagnosis Crohn's disease of small intestine with other complication documented in this encounter Care Teams Hydrate Control Tender Relationship Specialty Start Date End Date Irwin Gonsalez DO [address] [place] [address] [address] [facility] [address] [place] [address] PCP - General 05/01/11 documented as of this encounter
--- OUTSIDE RECORDS SUMMARY | 2024-03-10 02:01 | XMS_ITS | Encounter Summary ---
[place] [address] Care Team Providers Care Aerologist Name Role Phone Irwin Gonsalez DO Primary Care Provider [phone] Encounter Details Date Type Department Care Team (Late st Contact Info) Description 01/29/2016 Orders Only [place] [address] Yadira rDiver PA [address] [place] [address] Social History Tobacco Use Types Packs/Day Years [...] (Latest Contact Info) Description 04/01/2024 12:35 PM [facility] Hospital Encounter [place] [phone] Apurva Vivas MD [facility] [place] [address] 04/01/2024 12:35 PM EST - 04/01/2024 2:17 PM EST Surgery [place] [address] Apurva Vivas MD [facility] [place] [address] ANORECTAL EXAM, REQUIRING ANESTHESIA, DIAGNOSTIC (WRVU 1.8) 04/26/2024 3:00 PM EST Office [place] [phone] Apurva Vivas MD [facility] [place] [address] Scheduled Procedures Name Priority Associated Diagnoses Date/Ti me ANORECTAL EXAM, REQUIRING ANESTHESIA, DIAGNOSTIC (WRVU 1.8) perianal crohns disease w/fistula 04/01/2024 12:35 PM EST SURGICAL TREATMENT OF ANAL FISTULA COMPLEX OR MULTIPLE W\WO SETON PLACEMENT (WRVU 6.39) perianal crohns disease w/fistula 04/01/2024 12:35 PM EST documented as of this encounter Visit Diagnoses Not on filedocumented in this encounter Care Teams Aerologist Relationship Specialty Start Date End Date Irwin Gonsalez DO [address] [place] [address] PCP - General 05/01/11 documented as of this encounter
--- OUTSIDE RECORDS SUMMARY | 2024-03-10 02:01 | XMS_ITS | Encounter Summary ---
Author Organization [facility] [place] [address] Care Team Providers Care Helmet Coverer Name Role Phone Irwin Gonsalez DO Primary Care Provider [phone] Reason for Visit * Reason Onset Date Comments Medication Refill 04/10/2016 Encounter Details Date Type Department Care Team (Late st Contact Info) Description 04/10/2016 Refill [place] [phone] Shannan Barnard RN Social History Tobacco Use [...] PM EST Hospital Encounter [place] [phone] Apurva Vivas MD [facility] [place] [address] 04/01/2024 12:35 PM EST - 04/01/2024 2:17 PM EST [place] [address] Apurva Vivas MD [facility] [place] [address] ANORECTAL EXAM, REQUIRING ANESTHESIA, DIAGNOSTIC (WRVU 1.8) 04/26/2024 3:00 PM EST Office Visit [place] [phone] Apurva Vivas MD [facility] [place] [address] Scheduled Procedures Name Priority Associated Diagnoses Date/Ti me ANORECTAL EXAM, REQUIRING ANESTHESIA, DIAGNOSTIC (WRVU 1.8) perianal crohns disease w/fistula 04/01/2024 12:35 PM EST SURGICAL TREATMENT OF ANAL FISTULA COMPLEX OR MULTIPLE W\WO SETON PLACEMENT (WRVU 6.39) perianal crohns disease w/fistula 04/01/2024 12:35 PM EST documented as of this encounter Visit Diagnoses Not on filedocumented in this encounter Care Teams Helmet Coverer Relationship Specialty Start Date End Date Irwin Gonsalez DO [address] [facility] [place] [address] PCP - General 05/01/11 documented as of this encounter
--- OUTSIDE RECORDS SUMMARY | 2024-03-10 02:01 | XMS_ITS | Encounter Summary ---
[place] [address] Care Team Providers Care Rounder And Backer Name Role Phone Irwin Gonsalez DO Primary Care Provider Encounter Details Date Type Department Care Team (Latest Contact Info) Description 04/25/2016 9:30 AM EST Clinical [place] [phone] Shannan Barnard, RN Crohn's disease with complication, [...] as of this encounter Progress Notes * Shannan Barnard, RN - 04/25/2016 9:30 AM EST Patient here for Humira teaching. Patient educated in injection techniques-including site selection, cleaning area, and actual medication administration using the Humira talking pen and visual aid as reference. First injection performed by myself as demonstration. Patient was able to perform last three injections with no difficulty in Abdomen Pt received a total of 160 mg of Humira in 4 divided doses. Written instructions on administration schedule and lab schedule given. Lab requistions will be sent to [facility] All questions answered at time of visit. Pt knows to call for any questions or concerns. No reaction to medication noted. documented in this encounter Plan of Treatment Upcoming Encounters Date Type Department Care Team (Latest Contact Info) Description 04/01/2024 12:35 PM EST Hospital Encounter [place] [phone] Apurva Vivas MD [facility] [place] [address] 04/01/2024 12:35 PM EST - 04/01/2024 2:17 PM EST Surgery [place] [phone] Apurva Vivas MD [facility] [place] [address] ANORECTAL EXAM, REQUIRING ANESTHESIA, DIAGNOSTIC (WRVU 1.8) 04/26/2024 3:00 PM EST Office [place] [phone] Apurva Vivas MD [facility] [place] [address] Scheduled Procedures Name Priority Associated Diagnoses Date/Ti [...] MAR Action Action Date Dose Rate Site adalimumab (HUMIRA) injection 160 mg 160 mg, Subcutaneous, ONCE, 1 dose, On Thu04/25/16 at 1030, Routine, Adalimumab is restricted for Crohn's disease only- all other indications will be treated as a Non-Formulary Request.Is this medication being ordered for treatment of Crohn's disease? Yes Given 04/25/2016 10:03 AM EST 160 mg Abdominal Tissue documented in this encounter Care Teams Rounder And Backer Relationship Specialty Start Date End Date Irwin Gonsalez DO [address] [place] [place] [address] PCP - General 05/01/11 documented as of this encounter
--- OUTSIDE RECORDS SUMMARY | 2024-03-10 02:01 | XMS_ITS | Encounter Summary ---
[place] [address] Care Team Providers Care Purchasing And Fiscal Clerk Name Role Phone Irwin Gonsalez DO Primary Care Provider Encounter Details Date Type Department Care Team (Late st Contact Info) Description 05/09/2016 Telephone [place] [phone] Manuel Schneider Social History Tobacco Use Types Packs/Day Years [...] encounter Miscellaneous Notes * Telephone Encounter - Manuel Schneider - 05/09/2016 10:45 AM EST Caller: Pt Call for: IBD RN Reason for call: Pt thinks they need a PA done for azaTHIOprine. I do see that a refill request wasrouted to Dr. Pandey to sign. documented in this encounter Plan of Treatment Upcoming Encounters Date Type Department Care Team (Latest Contact Info) Description 04/01/2024 12:35 PM EST Hospital Encounter [place] [address] Apurva Vivas MD [facility] [place] [address] 04/01/2024 12:35 PM EST - 04/01/2024 2:17 PM EST Surgery [place] [address] Apurva Vivas MD [facility] [place] [address] ANORECTAL EXAM, REQUIRING ANESTHESIA, DIAGNOSTIC (WRVU 1.8) 04/26/2024 3:00 PM EST Office [place] [phone] Apurva Vivas MD [facility] [place] [address] Scheduled Procedures Name Priority Associated Diagnoses Date/Ti me ANORECTAL EXAM, REQUIRING ANESTHESIA, DIAGNOSTIC (WRVU 1.8) perianal crohns disease w/fistula 04/01/2024 12:35 PM EST SURGICAL TREATMENT OF ANAL FISTULA COMPLEX OR MULTIPLE W\WO SETON PLACEMENT (WRVU 6.39) perianal crohns disease w/fistula 04/01/2024 12:35 PM EST documented as of this encounter Visit Diagnoses Not on filedocumented in this encounter Care Teams Purchasing And Fiscal Clerk Relationship Specialty Start Date End Date Irwin Gonsalez DO [address] [place] [address] PCP - General 05/01/11 documented as of this encounter
--- OUTSIDE RECORDS SUMMARY | 2024-03-10 02:01 | XMS_ITS | Encounter Summary ---
Author Organization [facility] [place] [address] Care Team Providers Care Software Recruiter Name Role Phone Irwin Gonsalez DO Primary Care Provider Encounter Details Date Type Department Care Team (Late st Contact Info) Description 03/01/2016 Telephone Pediatric [place] [address] Joleen Haq MD [facility] [place] [address] Social History Tobacco Use Types Packs/Day Years [...] encounter Miscellaneous Notes * Telephone Encounter - Joleen Haq - 03/01/2016 8:57 AM EST Patient called concerned for some blood in urine. Notes red-tinge to urine today. No clots, no gas in urine, able to void well, no pain/burning with urination. Has been drinking water. No davidson placed for procedure per op note. Noted that some red-tinge to urine needs further outpatient workup, butgiven lack of other symptoms, no indication that this is related to his surgery. Recommended he seek immediate care if he passes clots, has difficulty voiding, pain with voiding, is unable to void, or has fevers. He understood these recommendations and will call/seek ED care if symptoms worsen. documented in this encounter Plan of Treatment Upcoming Encounters Date Type Department Care Team (Latest Contact Info) Description 04/01/2024 12:35 PM EST Hospital Encounter [place] [address] Apurva Vivas MD [facility] [place] [place] [address] 04/01/2024 12:35 PM EST - 04/01/2024 2:17 PM EST Surgery [place] [phone] Apurva Vivas MD [facility] [place] [place] [address] ANORECTAL EXAM, REQUIRING ANESTHESIA, DIAGNOSTIC (WRVU 1.8) 04/26/2024 3:00 PM EST Office [place] [address] Apurva Vivas MD [facility] [place] [place] [address] Scheduled Procedures Name Priority Associated Diagnoses Date/Ti me ANORECTAL EXAM, REQUIRING ANESTHESIA, DIAGNOSTIC (WRVU 1.8) perianal crohns disease w/fistula 04/01/2024 12:35 PM EST SURGICAL TREATMENT OF ANAL FISTULA COMPLEX OR MULTIPLE W\WO SETON PLACEMENT (WRVU 6.39) perianal crohns disease w/fistula 04/01/2024 12:35 PM EST documented as of this encounter Visit Diagnoses Not on filedocumented in this encounter Care Teams Software Recruiter Relationship Specialty Start Date End Date Irwin Gonsalez DO [address] [place] [address] [address] [place] [address] PCP - General 05/01/11 documented as of this encounter
--- OUTSIDE RECORDS SUMMARY | 2024-03-10 02:01 | XMS_ITS | Encounter Summary ---
Author Organization [facility] Address [facility] [place] [address] Care Team Providers Care Telecommunications Facility Examiner Name Role Phone Irwin Gonsalez DO Primary [...] Expiration Date Visits Re quested Visits Authorized [id number] 1 1 Encounter Details Date Type Department Care Team (Latest Contact Info) Description 05/23/2016 7:49 AM EST - 05/23/2016 12:31 PM EST Hospital Encounter Outpatient [place] [phone] Dougie Husain Jr., MD [facility] [place] [address] Discharge Disposition: Home Social History Tobacco Use [...] Sign Reading Time Taken Comments Blood Pressure 122/73 05/23/2016 11:44 AM EST Pulse 74 05/23/2016 12:01 PM EST Temperature 36.2 ??C (97.2 ??F) 05/23/2016 11:[address] Respiratory Rate 16 05/23/2016 12:01 PM EST Oxygen Saturation 97% 05/23/2016 12:01 PM EST Inhaled Oxygen Concentration - - [...] closest emergency room or call the hospital industrial truck operator at [phone] and ask for physician lactation consultant covering for your physician. Questions or problems after 5pm or on a weekend: Call the [facility] industrial truck operator at and ask for the physician lactation consultant covering for your doctor. * Patient Instructions* Brent Chand - 05/23/2016 11:15 AM EST Call your doctor for: ??? fevers greater than 101 ??? severe nausea or vomiting ??? increasing pain not controlled by pain medications The number for questions is [phone] before 5 PM weekdays and [phone] after 5 PM and weekends. Activity level: [...] forstent removal in the office. Please call [phone] if you do not receive your appointment. [...] presenting for attempted URS/stent placement for his [id number] renal stone. ?? No change to medical [...] Brent Chand - 05/23/2016 11:17 AM EST [facility] [place] Note Patient Name: Igor Woodruff : [id number] MR#: [id number] Case Date: 05/23/2016 Surgeon: Surgeon(s) and Role: [...] were extracted to the bladder using a N-ana basket; these were collected at the end [...] Operative Note Patient Name: Igor Woodruff : [id number] MR#: [id number] Case Date: 05/23/2016 Surgeon: Surgeon(s) and Role: [...] PM EST Hospital Encounter [place] [address] Apurva Vivas MD [facility] [place] [address] 04/01/2024 12:35 PM EST - 04/01/2024 2:17 PM EST Surgery [place] [phone] Apurva Vivas MD [facility] [place] [address] ANORECTAL EXAM, REQUIRING ANESTHESIA, DIAGNOSTIC (WRVU 1.8) 04/26/2024 3:00 PM EST Office [place] [phone] Apurva Vivas MD [facility] [place] [address] Scheduled Procedures Name Priority Associated Diagnoses Date/Ti [...] Husain Jr., MD IMG FLUORO ORDERAB LES [facility] [place], [place] * Kidney Stone Analysis (05/23/2016 11:10 AM EST) Kidney Stone Analysis (MAY) Test ? Result ?Flag ??Unit ??RefValue ------- Kidney Stone Analysis ??Source: ?Left Renal ??1st Constituent: ?90% Calcium oxalate monohydrate ??2nd Constituent: ?10% Calcium oxalate dihydrate ? ---ADDITIONAL INFORMATION------- ?This test was developed and its performance characteristics ?determined by [facility] in a manner consistent with CLIA ?requirements. This test has not been cleared or approved by ?the U.S. Food and Drug Administration. ?Test Performed by: ?[facility] ?[address] [place] [address] [facility] Calculus specimen (specimen) 05/23/2016 11:10 AM EST 05/23/2016 1:11 PM EST Narrative Resulting Agency Comment Spec In Lab Dougie Husain Jr., MD LAB SEND OUT ORDER CHASE Performing Organization Address [facility] Co de Phone Number [facility] [place] [address] documented in this encounter Visit Diagnoses Not [...] 250 mcg over one hour., PACU Recovery lactated ringers infusion 1,000 mL [...] dextrose 5% 200mL (COMPLETED) 400 mg, Intravenous, INJECTION MOLDING MACHINE OPERATOR TO O.R., 1 dose, On Thu05/23/16 at [...] Until Thu05/23/16 at 1450, Intra-Operative (Intra-Procedure), Routine 09 (Given - Provid er: Dougie Husain Jr., [...] Recovery documented in this encounter Care Teams Telecommunications Facility Examiner Relationship Specialty Start Date End Date Irwin Gonsalez DO [address] [place] [address] PCP - General 05/01/11 documented as of this encounter
--- OUTSIDE RECORDS SUMMARY | 2024-03-10 02:01 | XMS_ITS | Encounter Summary ---
Author Organization [facility] Address [facility] [place] [address] Care Team Providers Care Boiler Control Room Operator Name Role Phone Irwin Gonsalez DO Primary Care Provider Reason for Visit * Reason Comments Excessive Sweating Encounter Details Date Type Department Care Team (Latest Contact Info) Description 04/25/2016 8:30 AM EST Office Visit Dermatology at [facility] [address] [place] [phone] Reji Norman MD Hyperhidrosis of axilla; Viral warts, unspecified type Social History Tobacco Use Types Packs/Day Years Used Date Smoking Tobacco: Never Alcohol Use Standard Drinks/Week Comments Yes 1 (1 standard drink = 0.6 oz pur e alcohol) Sex and Gender Information Value Date Recorded Sex Assigned at Male 06/08/2023 4:49 PM EDT Gender Identity Not on file Sexual Orientation Not on file documented as of this encounter Progress Notes * Reji Norman MD - 04/25/2016 8:30 AM EST PROBLEM: 1. Axillary Hyperhidrosis 2. Here for treatment with botox injections SUBJECT: 41 y.o. year old male - here for re-injection of botox for hyperhidrosis. History of therapies: Last treatment 01/01/16. EXAMINATION: Focal examination to the axillae bilaterally and the hands 1. Axillary Hyperhidrosis 2. Left 2nd digit, left 1st finger : Verrucous papules. Pin-point vascular pattern noted on dermoscopy DIAGNOSIS: 1. Hyperhidrosis: sweating is intolerable and interferes w/ quality of life - now much improved w/ botox therapy - agreed to proceed. - We expect this to inhibit or decrease sweating for 6-9 months. - FU as required. May need to get another approval at that time. Procedure: - Re-discussed procedure, answered all questions and patient agreed to proceed. - Sterile prep of axillae with alcohol, grid marked in the axillae, with pinpoints 1cm apart. Approximately 50cm square area. - Botox (5 units/0.1cc) was injected into this grid, approximately 2.5 units at each point on the grid for 50 units in each axillae. - No complications. 2. Wart (Verruca vulgaris) - A combined decision was made to treat with cryotherapy - Advised patient to apply 17% salicylic acid to the affected areas and cover daily until next appointment - he would like to hold off scheduling repeat LN2 tx as I recommended because he is planningon stopping his azathioprine for Crohns and hopes this will resolve the warts Procedure Note: Procedure: Destruction of lesion(s) with cryotherapy. Number: 2 Location: as above Discussed procedure and expectations including risks (including risk of hypopigmentation) and benefits. Verbal consent obtained. Frozen with LN2, 15-30 second thaw time, TWICE. There were no complications; the patient tolerated the procedure well. Post-procedure expectations and wound care were reviewed. Follow up - PRN I am documenting this encounter acting as the scribe for and in the presence of Dr. Norman .KIANNA Polo MD Resident Physician - PGY4 Section of Dermatology [facility] * Jaylen Parsnos MD - 04/25/2016 8:30 AM EST I was the supervising physician working with dermatology resident Dr. Antonio Norman in the dermatology clinic during this patient visit. The level of Resident supervision for this patient visit was indirect supervision with direct supervision immediately available. (definition: [facility] GME Policy Statement on Graduate Medical Education, Supervision of Graduate Medical Trainees) I was immediately available to Dr. Norman for questions and discussion regarding this visit. I have reviewed his encounter note details and level of service. JAYLEN PARSONS MD Staff Physician documented in this encounter Plan of Treatment Upcoming Encounters Date Type Department Care Team (Latest Contact Info) Description 04/01/2024 12:35 PM EST Hospital Encounter [place] [address] Apurva Vivas MD [facility] GENER[place] [address] 04/01/2024 12:35 PM EST - 04/01/2024 2:17 PM EST Surgery [place] [phone] Apurva Vivas MD [facility] GENER[place] [address] ANORECTAL EXAM, REQUIRING ANESTHESIA, DIAGNOSTIC (WRVU 1.8) 04/26/2024 3:00 PM EST Office [place] [address] Apurva Vivas MD [facility] GENER[place] [address] Scheduled Procedures Name Priority Associated Diagnoses Date/Ti me ANORECTAL EXAM, REQUIRING ANESTHESIA, DIAGNOSTIC (WRVU 1.8) perianal crohns disease w/fistula 04/01/2024 12:35 PM EST SURGICAL TREATMENT OF ANAL FISTULA COMPLEX OR MULTIPLE W\WO SETON PLACEMENT (WRVU 6.39) perianal crohns disease w/fistula 04/01/2024 12:35 PM EST documented as of this encounter Visit Diagnoses Diagnosis Hyperhidrosis of axilla Primary focal hyperhidrosis Viral warts, unspecified type documented in this encounter Administered Medications Inactive Administered Medications - up to 3 most recent administrations Medication Order MAR Action Action Date Dose Rate Site botulinum toxin type A (BOTOX) injection 100 Units 100 Units, Intramuscular, ONCE, 1 dose, On Thu04/25/16 at 1015, Routine Given 04/25/2016 9:46 AM EST 100 Units 20-Other (document in comment section) documented in this encounter Care Teams Boiler Control Room Operator Relationship Specialty Start Date End Date Irwin Gonsalez DO [address] [place] [address] [address] [facility] [address] [place] [address] PCP - General 05/01/11 documented as of this encounter
--- OUTSIDE RECORDS SUMMARY | 2024-03-10 02:01 | XMS_ITS | Encounter Summary ---
Author Organization [facility] [place] [address] Care Team Providers Care University Relations Vice President Name Role Phone Irwin Gonsalez DO Primary Care Provider Reason for Visit * Reason Comments Medication Refill Encounter Details Date Type Department Care Team (Late st Contact Info) Description 09/24/2015 Ref[place] [address] Ramonita Pandey MD [facility] [place] [address] Social History Tobacco Use Types Packs/Day Years [...] PM EST Hospital Encounter [place] [phone] Apurva Vivas MD [facility] [place] [address] 04/01/2024 12:35 PM EST - 04/01/2024 2:17 PM EST Surgery [place] [phone] Apurva Vivas MD [facility] [place] [address] ANORECTAL EXAM, REQUIRING ANESTHESIA, DIAGNOSTIC (WRVU 1.8) 04/26/2024 3:00 PM EST Office [place] [phone] Apurva Vivas MD [facility] [place] [address] Scheduled Procedures Name Priority Associated Diagnoses Date/Ti me ANORECTAL EXAM, REQUIRING ANESTHESIA, DIAGNOSTIC (WRVU 1.8) perianal crohns disease w/fistula 04/01/2024 12:35 PM EST SURGICAL TREATMENT OF ANAL FISTULA COMPLEX OR MULTIPLE W\WO SETON PLACEMENT (WRVU 6.39) perianal crohns disease w/fistula 04/01/2024 12:35 PM EST documented as of this encounter Visit Diagnoses Not on filedocumented in this encounter Care Teams University Relations Vice President Relationship Specialty Start Date End Date Irwin Gonsalez DO [address] [place] [address] PCP - General 05/01/11 documented as of this encounter
--- OUTSIDE RECORDS SUMMARY | 2024-03-10 02:01 | XMS_ITS | Encounter Summary ---
Author Organization [facility] Address [facility] [place] [address] Care Team Providers Care Manager Adult Name Role Phone Irwin Gonsalez DO Primary Care Provider [phone] Encounter Details Date Type Department Care Team (Late st Contact Info) Description 04/30/2016 3:20 PM EST [place] [address] Lexy Choi MD [facility] [address] Gross hematuria Social History Tobacco Use Types [...] this encounter Patient Instructions * Patient Instructions* Jose Antonio Mckenzie RN - 04/30/2016 3:20 PM EST Instructions following Cystoscopy Activity: As tolerated by your comfort level. Fluids: You should increase your water today. Avoid coffee, tea and cola. You do not need to sowtmp06 ounces of water today. Urination: You will likely have a small amount of blood in your urine for the next several days. This is normal; however, if you are passing large amounts of blood clots or are unable to void please call our office at [phone] before 5PM or [phone] after hours. Please call if: * you have copious blood in your urine * fevers greater than 101.3 F * you are unable to void The number for questions is [phone] before 5 PM weekdays and [phone] after 5 PM and weekends. Follow-up: Per Dr. Choi documented in this encounter Procedure Notes * Lexy Choi MD - 04/30/2016 3:20 PM ESTAssociated Order(s): CYSTOSCOPY Pre-Procedure Diagnose(s): Other symptoms and signs involving the genitourinary system Cystoscopy Preoperative Diagnosis: Encounter Diagnoses Name Primary? Gross hematuria Postoperative Diagnosis: Same Procedure/Operation Performed: Cystoscopy Attending Surgeon: LEXY CHOI MD Resident Surgeon: None Anesthesia: Xylocaine jelly Pre-Medication: Cipro Preparation: None Indications for Procedure: This 41 y.o. male presents with the diagnosis / diagnoses listed above. The procedure was described in detail to the patient. The risks, benefits, and alternatives were thoroughly discussed. The patient wished to proceed with the recommended procedure. Verbal informed consent was obtained and is documented in the chart. Time Out: A time-out was completed verifying correct patient, procedure, site, positioning, and implant(s) and/or special equipment prior to beginning this procedure. Procedure and Findings: The patient was prepped and draped in the usual manner in the supine frog legged position. Cystoscopy was carried out using the flexible cystoscope. The urethra was normal. The prostatic urethra was normal with moderately sized median lobe protruding into the bladder. The bladder mucosa was normal. The ureteral orifices were normal. Additional findings: none Estimated Blood Loss: None Complications: None Impression: Normal bladder. No obvious source for hematuria. documented in this encounter Plan of Treatment Upcoming Encounters Date Type Department Care Team (Latest Contact Info) Description 04/01/2024 12:35 PM EST Hospital Encounter [place] [address] Apurva Vivas MD [facility] [place] [address] 04/01/2024 12:35 PM EST - 04/01/2024 2:17 PM EST Surgery [place] [phone] Apurva Vivas MD [facility] [place] [address] ANORECTAL EXAM, REQUIRING ANESTHESIA, DIAGNOSTIC (WRVU 1.8) 04/26/2024 3:00 PM EST Office [place] [phone] Apurva Vivas MD [facility] [place] [address] Scheduled Procedures Name Priority Associated Diagnoses Date/Ti me ANORECTAL EXAM, REQUIRING ANESTHESIA, DIAGNOSTIC (WRVU 1.8) perianal crohns disease w/fistula 04/01/2024 12:35 PM EST SURGICAL TREATMENT OF ANAL FISTULA COMPLEX OR MULTIPLE W\WO SETON PLACEMENT (WRVU 6.39) perianal crohns disease w/fistula 04/01/2024 12:35 PM EST documented as of this encounter Procedures Procedure Name Priority Date/Time Associated Diagnosis Comments CYSTOSCOPY Routine 04/30/2016 4:14 PM EST Gross hematuria URINALYSIS WITH REFLEX CULTURE Routine 04/30/2016 3:28 PM EST Gross hematuria URINE CULTURE Routine 04/30/2016 3:28 PM EST documented in this encounter Results * Cystoscopy (04/30/2016 4:14 PM EST) Narrative Lexy Choi MD - 04/30/2016 4:14 PM EST Lexy Choi MD ? 04/30/2016 ??4:14 PM Cystoscopy Preoperative Diagnosis: Encounter Diagnoses Name Primary? ? ? Gross hematuria ?? Postoperative Diagnosis: Same Procedure/Operation Performed: Cystoscopy Attending Surgeon: LEXY CHOI MD Resident Surgeon: Shay Anesthesia: Xylocaine jelly Pre-Medication: Cipro Preparation: None Indications for Procedure: This 41 y.o. male presents with the diagnosis / diagnoses listed above. The procedure was described in detail to the patient. ??The risks, benefits, and alternatives were thoroughly discussed. The patient wished to proceed with the recommended procedure. ??Verbal informed consent was obtained and is documented in the chart. Time Out: A time-out was completed verifying correct patient, procedure, site, positioning, and implant(s) and/or special equipment prior to beginning this procedure. Procedure and Findings: The patient was prepped and draped in the usual manner in the supine frog legged position. Cystoscopy was carried out using the flexible cystoscope. The urethra was normal. The prostatic urethra was normal with moderately sized median lobe protruding into the bladder. The bladder mucosa was normal. The ureteral orifices were normal. Additional findings: none Estimated Blood Loss: None Complications: None Impression: Normal bladder. No obvious source for hematuria. Lexy Choi MD PROCEDURE ORDER CHASE * Urine culture (04/30/2016 3:28 PM EST) Urine Culture No growth (Less than 1,000 cfu/ml). [facility] Urine specimen obtained by clean catch procedure (specimen) 04/30/2016 3:28 PM EST 04/30/2016 4:44 PM EST Narrative Resulting Agency Comment Spec In Lab Lexy Choi MD MICROBIOLOGY - GEN ERAL ORDERABLES [facility] [place] [address] * (ABNORMAL) Urinalysis with reflex Culture (04/30/2016 3:28 PM EST) Glucose, Urine Dipstick Negative Negative mg/dL [facility] Protein, Urine Dipstick Negative Negative mg/dL [facility] Bilirubin, Urine Dipstick Negative Negative mg/dL [facility] Comment: Clinical correlation required for positive Urine Bilirubin results as false positive may occur with some drugs and drug related products. If a false positive is suspected a serum total bilirubin should be considered if clinically indicated. Urobilinogen, Urine Dipstick Normal Normal mg/dL [facility] pH, Urn (dipstick) 6.0 5.0 - 8.0 [facility] Blood, Urine Dipstick Large(A) Negative mg/dL [facility] Ketone, Urine Dipstick Negative Negative mg/dL [facility] Nitrite, Urine Dipstick Negative Negative [facility] Leukocytes, Urine Dipstick Small(A) Negative [facility] Appearance, Urine Dipstick Clear Clear [facility] Specific [place] Urine Automated 1.009 1.002 - 1.030 [facility] Color, Urine Dipstick Yellow Yellow [facility] RBC, Urine 28(H) 0 - 3 /HPF [facility] WBC, Urine 12(H) 0 - 3 /HPF [facility] Bacteria, Urine Rare(A) None /HPF [facility] Squamous Epithelial Cells, Urine <1 <=4 /HPF [facility] Reflex to Culture Yes [facility] Urine specimen obtained by clean catch procedure (specimen) 04/30/2016 3:28 PM EST 04/30/2016 4:11 PM EST Narrative Resulting Agency Comment Spec In Lab Lexy Choi MD URINE ORDERABLES [facility] [place] [address] documented in this encounter Visit Diagnoses Diagnosis Gross hematuria documented in this encounter Care Teams Manager Adult Relationship Specialty Start Date End Date Irwin Gonsalez DO [address] [place] [address] PCP - General 05/01/11 documented as of this encounter
--- OUTSIDE RECORDS SUMMARY | 2024-03-10 02:01 | XMS_ITS | Encounter Summary ---
Author Organization [facility] Address [facility] [place] [address] Care Team Providers Care Finish Mill Operator Name Role Phone Irwin Gonsalez DO Primary Care Provider [phone] Reason for Visit * Reason Comments Procedure Encounter Details Date Type Department Care Team (Late st Contact Info) Description 01/01/2016 10:00 AM EDT Office Visit Dermatology at [facility] [address] [place] [phone] Catrina Beckford RN Hyperhidrosis Social History Tobacco Use Types Packs/Day Years Used Date Smoking Tobacco: Never Alcohol Use Standard Drinks/Week Comments Yes 1 (1 standard drink = 0.6 oz pur e alcohol) Sex and Gender Information Value Date Recorded Sex Assigned at Male 06/08/2023 4:49 PM EDT Gender Identity Not on file Sexual Orientation Not on file documented as of this encounter Progress Notes * Catrina Beckford RN - 01/01/2016 10:00 AM EDT PROBLEM: 1. Axillary Hyperhidrosis 2. Here for treatment with Botox injections SUBJECT: 40 y.o. year old male. Here for treatment of axillary hyperhidrosis. Last treatment 8 months ago. Just now beginning to notice increased sweating. Patient happy with this treatment but he is also interaested in miradry. Discussed and .given the MiradPaxVax information sheet. Insurance approval for Botox injections until 04/2016. No anesthesia is usually needed for this procedure. Topical anesthesia is minimally effective, so will perform the procedure without out any intralesional anesthesia. Patient understands and agrees to this. No significant complications or risks with injecting Botox in the axillae. No other significant health issues that would interfere with this procedure. EXAMINATION: Focal examination to the axillae bilaterally. Normal appearing skin with increased moisture/sweating. DIAGNOSIS: 1. Axillary Hyperhidrosis Discussion : 1.. We expect this to inhibit or decrease sweating for 6-12 months. 2. FU as required. May need to get another approval at that time. Procedure: 1. Re-discussed procedure, answered all questions and patient agreed to proceed. 2. Sterile prep of axillae with alcohol, grid marked in the axillae, with pinpoints 1cm apart. Approximately 50cm square area. 3. Botox (5 units/0.1cc) was injected into this grid by Camelia Beckford RN . approximately 2.5 units at each point on the grid for 50 units in each axillae, 100 units total. 4. No complications. Follow up: 1. 6 -12 months sooner if needed Botox prescribed by Ria Foote MD. Treatment delivered by Catrina Beckford RN, DNC under in-direct on-site supervision of Dr. Foote. * Bharathi Foote MD - 01/01/2016 10:00 AM EDT Supervising. Botox for hyperhidrosis. documented in this encounter Plan of Treatment Upcoming Encounters Date Type Department Care Team (Latest Contact Info) Description 04/01/2024 12:35 PM EST Hospital Encounter [place] [address] Apurva Vivas MD [facility] [place] [address] 04/01/2024 12:35 PM EST - 04/01/2024 2:17 PM EST Surgery [place] [address] Apurva Vivas MD [facility] [place] [address] ANORECTAL EXAM, REQUIRING ANESTHESIA, DIAGNOSTIC (WRVU 1.8) 04/26/2024 3:00 PM EST Office [place] [address] Apurva Vivas MD [facility] [place] [address] Scheduled Procedures Name Priority Associated Diagnoses Date/Ti [...] 100 Units, Intramuscular, ONCE, 1 dose, On 01/01/16 at 1045, Routine Given 01/01/2016 10:17 AM EDT 100 Units documented in this encounter Care Teams Finish Mill Operator Relationship Specialty Start Date End Date Irwin Gonsalez DO [address] [place] [address] PCP - General 05/01/11 documented as of this encounter
--- OUTSIDE RECORDS SUMMARY | 2024-03-10 02:01 | XMS_ITS | Encounter Summary ---
Author Organization [facility] [place] [address] Care Team Providers Care Mortgage Loan Underwriter Name Role Phone Irwin Gonsalez DO Primary Care Provider Reason for Referral * Diagnostic Test (Routine) - Closed Specialty Diagnoses / Procedures Referred By Haresh powers Referred To Contact Radiology Diagnoses Gross hematuria Procedures CT Abdomen & Pelvis wwo Contrast (Generic) Patria Barnes APRN [facility] [place] [address] [facility] [place] [address] Referral ID Status Reason Start Date Expiration Date V isits Requested Visits Authorized [id number] Closed Specialty Service Requested 03/20/2016 05/18/2016 1 1 Encounter Details Date Type Department Care Team (Late st Contact Info) Description 03/07/2016 [place] [address] Patria Barnes APRN Gross hematuria Social History Tobacco Use Types Packs/Day Years Used Date Smoking Tobacco: Never Alcohol Use Standard Drinks/Week Comments Yes 1 (1 standard drink = 0.6 oz pur e alcohol) Sex and Gender Information Value Date Recorded Sex Assigned at Male 06/08/2023 4:49 PM EDT Gender Identity Not on file Sexual Orientation Not on file documented as of this encounter Progress Notes * Patria Barnes, [place] - 03/07/2016 4:37 PM EST Gross hematuria. No allergies to contrast. Has not seen Urology. No recent cre. Cre, CTU and cystoscopy for gross hematuria. He had recent MRE for Crohn's. Will gethim booked for appt matilda. documented in this encounter Plan of Treatment Upcoming Encounters Date Type Department Care Team (Latest Contact Info) Description 04/01/2024 12:35 PM EST Hospital Encounter [place] [phone] Apurva Vivas MD [facility] [place] [address] 04/01/2024 12:35 PM EST - 04/01/2024 2:17 PM EST Surgery [place] [phone] Apurva Vivas MD [facility] [place] [address] ANORECTAL EXAM, REQUIRING ANESTHESIA, DIAGNOSTIC (WRVU 1.8) 04/26/2024 3:00 PM EST Office [place] [phone] Apurva Vivas MD [facility] [place] [address] Scheduled Procedures Name Priority Associated Diagnoses Date/Ti me ANORECTAL EXAM, REQUIRING ANESTHESIA, DIAGNOSTIC (WRVU 1.8) perianal crohns disease w/fistula 04/01/2024 12:35 PM EST SURGICAL TREATMENT OF ANAL FISTULA COMPLEX OR MULTIPLE W\WO SETON PLACEMENT (WRVU 6.39) perianal crohns disease w/fistula 04/01/2024 12:35 PM EST documented as of this encounter Results * CT Abdomen & [...] to characterize, possiblya cyst. Warren Reeves MD IMG CT ORDERABLES * Creatinine (03/21/2016 4:32 PM EST) Creatinine 0.84 0.80 - 1.50 mg/dL [facility] Comment: Please note that the pediatric reference intervals supplied above were not validated [place] [facility] [place] Results from pediatric patients should be interpreted in conjunction to the patient's age, height and muscle mass. Est Glomerular Filtration Rate >60 >=60 [facility] Comment: This estimated GFR (eGFR) value was calculated using the MDRD equation which has been validated on patients between the ages of 18 and 70. The MDRD should not be used to assess kidney function in patients < 18 years of age or in patients with extremes of body mass, or in patients with acute kidney failure. This value should be multiplied by 1.2 for patients. For further information please copy and paste the following links into your internet browser. [email or web address] Blood specimen (specimen) 03/21/2016 4:32 PM EST 03/21/2016 4:36 PM EST Narrative Resulting Agency Comment Spec In Lab Warren Reeves MD CHEMISTRY ORDERABLES [facility] [place] [address] documented in this encounter Visit Diagnoses Diagnosis Gross hematuria Gross hematuria documented in this encounter Care Teams Mortgage Loan Underwriter Relationship Specialty Start Date End Date Irwin Gonsalez DO [address] [place] [address] PCP - General 05/01/11 documented as of this encounter
--- OUTSIDE RECORDS SUMMARY | 2024-03-10 02:01 | XMS_ITS | Encounter Summary ---
[place] [address] Care Team Providers Care Dynamics Ax Solution Architect Name Role Phone Irwin Gonsalez DO Primary Care Provider [phone] Reason for Referral * Surgical (Routine) - Closed Specialty Diagnoses / Procedures Referred By Haresh powers Referred To Contact General Surgery Diagnoses Crohn's ileitis, with rectal bleeding Ramonita Pandey MD [facility] [place] [address] [facility] Gen Surgery [address] [place] [address] Referral ID Status Reason Start Date Expiration Date V isits Requested Visits Authorized [id number] Closed Consult, Test & Treat 12/17/2015 12/16/2016 3 3 Reason for Visit * Reason Comments Follow-up Encounter Details Date Type Department Care Team (Late st Contact Info) Description 12/17/2015 10:00 AM EDT Office [place] [address] Ramonita Pandey MD [facility] [place] [address] Crohn's ileitis, with rectal bleeding (Primary Dx) Social History Tobacco Use Types [...] Sign Reading Time Taken Comments Blood Pressure 148/90 12/17/2015 9:41 AM EDT Pulse 79 12/17/2015 9:41 AM EDT Temperature - - Respiratory Rate - - Oxygen Saturation - - Inhaled Oxygen Concentration - - Weight 103 kg (227 lb) 12/17/2015 9:41 AM EDT Height 185.4 cm (6' 1) 12/17/2015 9:41 AM EDT Body Mass Index 29.95 12/17/2015 9:41 AM EDT documented in this encounter Patient Instructions * Patient Instructions* Ramonita Pandey MD - 12/17/2015 10:00 AM EDT # Ciprofloxacin 500 mg twice per day. # Metronidazole 500 mg twice per day. Avoid alcohol while on this antibiotic. # Referral to colorectal surgery. Keep taking antibiotics until you see colorectal surgery. # Continue the azathioprine as you have been. # Please have your labs (complete blood count, liver tests, and C-reactive protein) checked once every 3-4 months. Will check them here today. # Recommended annual flu shot. # Recommend pneumococcal vaccine (23 valent) next in 2020. # The nature of sun-induced photo-aging and association between azathioprine and skin cancers is discussed. Sun avoidance, protective clothing, and the use of 30-SPF sunscreens is advised. Observe closely for skin damage/changes, and annual skin exam is recommended. # Follow-up with me in the office in 10 weeks to discuss starting new medications for Crohn's disease to prevent recurrent fistulas. documented in this encounter Progress Notes * Ramonita Pandey MD - 12/17/2015 10:00 AM EDT PROBLEM LIST ??? Crohn's ileitis diagnosed at [...] see me for the first time since September 2014 for his Crohn's disease. He is s/p ileocolonic resection in 10/29/10. He had 19.5 cm of ileum removed. 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 His last colonoscopy was February 2013 and did not show active disease. He had a few episodes of abdominal pain over the summer that he associates with being busy and stress at work. Summer is a busy time at work for him. 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 He is moving his bowels typically 3-4 times per day and on bad days he is having 5-6 stools per day. Stool is always semi-solid to loose. There was some abdominal pain in August. Lasted for three days and was intermittent. It resolved spontaneously. He continues to take azathioprine 250 mg per day. For about 3 months, he reports an infected hemorrhoid. He had pain at the anus and what felt likea big pimple. He was able to express pus a couple of months ago followed by improvement more recently. Never had fistulas before. Also notes that he has been passing mucus more frequently. No fevers. There has been no apthous stomatitis, episcleritis, [...] are equal, round, and reactive to light. Neck: Neck supple. Cardiovascular: Normal rate, regular rhythm and normal heart sounds. Pulmonary/Chest: Breath sounds normal. He has no wheezes. He has no rales. Abdominal: Soft. Bowel sounds are normal. He exhibits no distension and no mass. There is no tenderness. There is no rebound and no guarding. Well-healed remote surgical incisions in the midline. Genitourinary: Genitourinary Comments: Small nodule in the R poterolateral quadrant. There was a small amount of purulence that could be expressed. Musculoskeletal: He exhibits no edema. Neurological: He is alert. Skin: Skin is warm and dry. No rash noted. Vitals reviewed. 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 On exam today, there is minimal purulence, and, by history and exam, I think that this spontaneously drained. However, I would still like himto see colorectal surgery. EUA is probably still prudent. In the meantime, we will use cipro/flagyl, and he knows to call right away if the pain or drainage worsens. I think we will consider starting an antiTNF once he has been seen by colorectal. We discussed thisbriefly today. We discussed the importance of regular lab work. He will have some drawn today. We discussed the following recommendations that were printed out for the patient: # Ciprofloxacin 500 mg twice per day. # Metronidazole 500 mg twice per day. Avoid alcohol while on this antibiotic. # Referral to colorectal surgery. Keep taking antibiotics until you see colorectal surgery. # Continue the azathioprine as you have been. # Please have your labs (complete blood count, liver tests, and C-reactive protein) checked once every 3-4 months. Will check them here today. # Recommended annual flu shot. # Recommend pneumococcal vaccine (23 valent) next in 2020. # The nature of sun-induced photo-aging and association between azathioprine and skin cancers is discussed. Sun avoidance, protective clothing, and the use of 30-SPF sunscreens is advised. Observe closely for skin damage/changes, and annual skin exam is recommended. # Follow-up with me in the office in 10 weeks to discuss starting new medications for Crohn's disease to prevent recurrent fistulas. Angelo Pandey MD [employer] Section of Gastroenterology and [place] [address] CC: DO Sunday MERCHANT [address] [place] [id number] documented in this encounter Plan of Treatment Upcoming Encounters Date Type Department Care Team (Latest Contact Info) Description 04/01/2024 12:35 PM EST Hospital Encounter [place] [address] Apurva Vivas MD [facility] [place] [address] 04/01/2024 12:35 PM EST - 04/01/2024 2:17 PM EST Surgery [place] [phone] Apurva Vivas MD [facility] [place] [address] ANORECTAL EXAM, REQUIRING ANESTHESIA, DIAGNOSTIC (WRVU 1.8) 04/26/2024 3:00 PM EST Office [place] [phone] Apurva Vivas MD [facility] [place] [address] Scheduled Procedures Name Priority Associated Diagnoses Date/Ti me ANORECTAL EXAM, REQUIRING ANESTHESIA, DIAGNOSTIC (WRVU 1.8) perianal crohns disease w/fistula 04/01/2024 12:35 PM EST SURGICAL TREATMENT OF ANAL FISTULA COMPLEX OR MULTIPLE W\WO SETON PLACEMENT (WRVU 6.39) perianal crohns disease w/fistula 04/01/2024 12:35 PM EST Scheduled Referrals Name Type Priority Associated Diagnoses Orde r Schedule Referral to General Surgery Outpatient Referral Routine Crohn's ileitis, with rectal bleeding Ordered: 12/17/2015 documented as of this encounter Procedures Procedure Name Priority Date/Time Associated Diagnosis Comments QUANTIFERON-TB GOLD Routine 12/17/2015 1 2:14 PM EDT Crohn's ileitis, with rectal bleeding HEMOGRAM Routine 12/17/2015 12:14 PM EDT Crohn's ileitis, with rectal bleeding DIFFERENTIAL, AUTOMATED Routine 12/17/2015 12:14 PM EDT Crohn's ileitis, with rectal bleeding HEPATITIS B CORE ANTIBODY, TOTAL Routine 12/17/2015 12:14 PM EDT Crohn's ileitis, with rectal bleeding VITAMIN D, 25-HYDROXY Routine 12/17/2015 12:14 PM EDT Crohn's ileitis, with rectal bleeding HEPATITIS B SURFACE ANTIBODY Routine 12/17/2015 12:14 PM EDT Crohn's ileitis, with rectal bleeding HEPATITIS B SURFACE ANTIGEN Routine 12/17/2015 12:14 PM EDT Crohn's ileitis, with rectal bleeding CBC (WITH DIFF) Routine 12/17/2015 12:14 PM EDT Crohn's ileitis, with rectal bleeding CRP, CARDIAC RISK (HS CRP) Routine 12/17/2015 12:14 PM EDT Crohn's ileitis, with rectal bleeding HEPATIC FUNCTION PANEL Routine 12/17/2015 12:14 PM EDT Crohn's ileitis, with rectal bleeding documented in this encounter Results * Differential, Automated (12/17/2015 12:14 PM EDT) Neutrophil % 69.3 % [facility] Neutrophil Absolute 4.04 1.70 - 6.10 x10(3)/[facility] Lymph % 23.4 % [facility] Lymphocytes Abs 1.4 0.9 - 3.2 x10(3)/[facility] Monocyte % 6.0 % [facility] Monocyte Abs 0.4 0.3 - 0.9 x10(3)/[facility] Eos % 0.9 % [facility] Eosinophils Abs 0.0 0.0 - 0.4 x10(3)/[facility] Basophil % 0.2 % [facility] Baso Absolute 0.0 0.0 - 0.1 x10(3)/[facility] Immature Gran % 0.20 % [facility] Comment: Immature granulocytes(IG's)percentage and absolute count will include metamyelocytes, myelocytes, and promyelocytes. Blood smears from CBCs yielding IG's will be scanned manually for concordance. If this scan disagrees with the automated IG or if promyelocytes are noted, a manual differential will be performed. Immature Gran Absolute 0.01 0.00 - 0.04 x10(3)/[facility] Blood specimen (specimen) 12/17/2015 12:14 PM EDT 12/17/2015 12:18 PM EDT Narrative Resulting Agency Comment Spec In Lab L Timothy Pandey MD HEMATOLOGY ORDERABLE S [facility] [place] [address] * Hemogram (12/17/2015 12:14 PM EDT) White Blood Cell 5.8 4.0 - 9.5 x10(3)/[facility] Red Blood Cell 5.12 4.58 - 5.54 x10(6)/[facility] Hemoglobin 15.5 13.7 - 16.5 gm/dL [facility] Hematocrit 44.6 40.5 - 48.5 % [facility] Mean Cell Volume 87.1 82.9 - 93.1 fL [facility] Mean Cell Hemoglobin 30.3 27.5 - 32.1 pg [facility] Mean Cell Hemoglobin Concentration 34.8 32.0 - 35.7 gm/dL [facility] Platelet 266 145 - 357 x10(3)/[facility] RDW Standard Deviation 41.1 36.0 - 45.0 [facility] RDW coefficient of variation 12.9 11.4 - 13.8 % [facility] Mean Platelet Volume 9.5 7.6 - 12.9 fL [facility] NRBC% auto 0.0 % [facility] NRBC Absolute 0.000 0.000 - 0.000 x10(3)/mcL [facility] Blood specimen (specimen) 12/17/2015 12:14 PM EDT 12/17/2015 12:18 PM EDT Narrative Resulting Agency Comment Spec In Lab L Timothy Pandey MD HEMATOLOGY ORDERABLE S [facility] [place] [address] * Hepatitis B Core Antibody, Total (12/17/2015 12:14 PM EDT) Hepatitis B Core Antibody Negative Negative [facility] Blood specimen (specimen) 12/17/2015 12:14 PM EDT 12/17/2015 12:18 PM EDT Narrative Resulting Agency Comment Spec In Lab L Timothy Pandey MD CHEMISTRY ORDERABLES Performing Organization Address [facility]/ZIP Co de Phone Number [facility] [place] [address] * Hepatitis B Surface Antibody (12/17/2015 12:14 PM EDT) Hepatitis B Surface Antibody, Quantitative 4 IU/L [facility] Hepatitis B Surface Antibody Negative [facility] Comment: Patient is presumed to be not vaccinated or immune to HBV infection. Expected Results: Vaccinated: Positive Unvaccinated: Negative Blood specimen (specimen) 12/17/2015 12:14 PM EDT 12/17/2015 12:18 PM EDT Narrative Resulting Agency Comment Spec In Lab L Timothy Pandey MD CHEMISTRY ORDERABLES Performing Organization Address City/[facility]/ZIP Co de Phone Number [facility] [place] [address] * Hepatitis B Surface Antigen (12/17/2015 12:14 PM EDT) Hepatitis B Surface Antigen Negative Negative [facility] Blood specimen (specimen) 12/17/2015 12:14 PM EDT 12/17/2015 12:18 PM EDT Narrative Resulting Agency Comment Spec In Lab L Timothy Pandey MD CHEMISTRY ORDERABLES [facility] [place] [place] [address] * QuantiFERON-TB Gold (12/17/2015 12:14 PM EDT) Quantiferon-TB Gold Negative Negative [facility] Comment: Nil (IU/mL)= 0.06 TB Ag minus Nil (IU/mL)=0.00 Mitogen minus Nil (IU/mL)= >10 M. tuberculosis (TB) infection NOT likely ?A negative specimen should have a TB Ag minus Nil value less than 0.35 IU/mL OR a TB Ag minus Nil greater than or equal to 0.35 IU/mL and in addition the TB Ag minus Nil value must be less than 25% of the Nil value. A negative specimen should have a Mitogen minus Nil value greater than or equal to 0.5 IU/mL. ?The performance of the QuantiFERON-TB Gold IT test has not been extensively evaluated with specimens from the following groups of individuals: ?1. Individuals who have impaired or altered immune function such as those who have HIV infection or AIDS, those who have transplantation managed with immunosuppressive treatment or others who receive immunosuppressive drugs (e.g., corticosteroids, methotrexate, azathioprine, cancer chemotherapy), and those who have other clinical conditions: diabetes, silicosis, chronic renal failure, hematological disorders (e.g., leukemia and lymphomas), and other specific malignancies (e.g., carcinoma of the head or neck and lung). ?2. Individuals younger than age 17 years. ?3. women. Note: Diagnosing or excluding tuberculosis disease, and assessing the probability of LTBI, require a combination of epidemiological, historical, medical, and diagnostic findings that should be taken into account when interpreting QuantiFERON-TB Gold results. Reference (http://www.cdc.gov/nchstp/tb/) Blood specimen (specimen) 12/17/2015 12:14 PM EDT 12/18/2015 8:04 AM EDT Narrative Resulting Agency Comment Spec In Lab L Timothy Pandey MD CHEMISTRY ORDERABLES Performing Organization Address [facility] Co de Phone Number [facility] [place] [address] * Vitamin D, 25-Hydroxy (12/17/2015 12:14 PM EDT) Vitamin D Total 25 OH 51 30 - 100 ng/mL [facility] Comment: Deficient <10 ng/mL Insufficient 10 to 29 ng/mL Sufficient 30 to 100 ng/mL Potential Intoxication >100 ng/mL According to the [place] National Osteoporosis Foundation, Vitamin D concentrations >30 ng/mL are sufficient to protect bone health. ??The National Kidney Foundation has similarly stated that patients with Vitamin D concentrations <30ng/mL should be considered to be insufficient or deficient. http://[employer]/[facility] – OK[facility] CITYnatlkidneyfoundation http://[employer]/DHVitD [employer] Vitamin D Immunoassay detects both 25-OH Vitamin D2 and 25-OH Vitamin D3, but only a total Vitamin D concentration is reported. Blood specimen (specimen) 12/17/2015 12:14 PM EDT 12/17/2015 12:18 PM EDT Narrative Resulting Agency Comment Spec In Lab L Timothy Pandey MD CHEMISTRY ORDERABLES Performing Organization Address [facility] Co de Phone Number [facility] [place] [address] * Hepatic Function Panel (12/17/2015 12:14 PM EDT) Protein, Total 7.3 6.1 - 8.0 gm/dL [facility] Albumin 4.6 3.2 - 5.2 gm/dL [facility] Aspartate Aminotransferase 27 0 - 39 unit/L [facility] Alanine Aminotransferase 40 0 - 55 unit/L [facility] Alkaline Phosphatase 57 40 - 120 unit/L [facility] Bilirubin, Total 1.3 0.2 - 1.3 mg/dL [facility] Bilirubin, Direct 0.2 0.0 - 0.3 mg/dL [facility] Blood specimen (specimen) 12/17/2015 12:14 PM EDT 12/17/2015 12:18 PM EDT Narrative Resulting Agency Comment Spec In Lab L Timothy Pandey MD CHEMISTRY ORDERABLES Performing Organization Address [facility] Co de Phone Number [facility] [place] [address] * High Sensitivity CRP (12/17/2015 12:14 PM EDT) C-Reactive Protein High Sensitivity 0.5 mg/L [facility] Comment: Interpretations: 1) For accurate cardiac risk assessment, the average of 2 values >2 weeks apart should be obtained (ref 1&2). A value >10 mg/L indicates an inflammatory condition, concentrations >10 mg/L should not be used for cardiac risk assessment. ?<1.0 mg/L: low risk ?1.0 - 3.0 mg/L: moderate risk ?>3.0 mg/L: high risk groups for future cardiovascular events 2) The general reference range of apparently healthy individuals using this test is <5.0 mg/L (derived from the test package insert) References: 1. Page HARTMAN et. al. ??AHA/CDC Scientific Statement: Markers of Inflammation and Cardiovascular Disease. ??Circulation 2003; 107:499-511 2. Ridker PM. ??Clinical applications of C-reactive protein for cardiovascular disease detection and prevention. ??Circulation 2003; 107:363-369 Blood specimen (specimen) 12/17/2015 12:14 PM EDT 12/17/2015 12:18 PM EDT Narrative Resulting Agency Comment Spec In Lab L Timothy Pandey MD CHEMISTRY ORDERABLES Performing Organization Address [facility] Co de Phone Number [facility] [place] [address] documented in this encounter Visit Diagnoses Diagnosis Crohn's ileitis, with rectal bleeding- Primary documented in this encounter Care Teams Dynamics Ax Solution Architect Relationship Specialty Start Date End Date Irwin Gonsalez DO [address] [place] [address] [address] [facility] [address] [place] [address] PCP - General 05/01/11 documented as of this encounter
--- OUTSIDE RECORDS SUMMARY | 2024-03-10 02:01 | XMS_ITS | Encounter Summary ---
Author Organization [facility] [place] [address] Care Team Providers Care Automatic Hemmer Name Role Phone Irwin Gonsalez DO Primary Care Provider Reason for Visit * Reason Comments Establish Care Fistula * Surgical (Routine) - Closed Specialty Diagnoses / Procedures Referred By Haresh powers Referred To Contact General Surgery Diagnoses Crohn's ileitis, with rectal bleeding Ramonita Matamoros MD [facility] [place] [address] [facility] [address] [place] [address] Referral ID Status Reason Start Date Expiration Date V isits Requested Visits Authorized [id number] Closed Consult, Test & Treat 12/17/2015 12/16/2016 3 3 Encounter Details Date Type Department Care Team (Late st Contact Info) Description 12/26/2015 9:00 AM EDT Office [place] [address] Yadira Driver PA [address] [place] [address] [place] [address] Femmvwp-sh-yvq; Perianal abscess, right posterior Social History Tobacco [...] Sign Reading Time Taken Comments Blood Pressure 141/95 12/26/2015 8:58 AM EDT Pulse 90 12/26/2015 8:58 AM EDT Temperature 36.5 ??C (97.7 ??F) 12/26/2015 8:58 AM ED T Respiratory Rate 18 12/26/2015 8:58 AM EDT Oxygen Saturation 100% 12/26/2015 8:58 AM EDT Inhaled Oxygen Concentration - - Weight 103 kg (227 lb 1.2 oz) 12/26/2015 8:58 AM EDT Height 182.9 cm (6' 0.01) 12/26/2015 8:58 AM ED T Body Mass Index 30.79 12/26/2015 8:58 AM EDT documented in this encounter Progress Notes * Yadira Driver PA - 12/26/2015 9:00 AM EDT Colorectal Surgery Outpatient Consultation Note [place] [address] PCP: IRWIN GONSALEZ DO Referring Provider: Ramonita Matamoros [phone] HPI:Igor Sherine Kacy is a very pleasant 40 y.o. male with PMHx Crohn's Disease whom we were askedto see by Dr. Matamoros regarding Chief Complaint Patient presents with ??? Establish Care Fistula Patient was diagnosed with Crohn's disease at age 17, and for that he has undergone surgery only once, in 2010, with 19.5 cm of the terminal ileum resected. He states that otherwise his Crohn's disease has been well controlled systemically with use of azathioprine. Regarding his perianal symptoms, he states that he was never troubled with that since he was diagnosed until about 5 or 6 months ago, when he developed symptoms of soreness on the external perianal skin. He thought it was a hemorrhoid and did not seek any treatment right away. Symptoms did not resolve. A lump thereafter appeared on the skin, on the right side of the perianal skin. Became quite painful. Started having clear liquid discharge, as well as pus when he would squeeze the lump. Then about 3 months ago, it exploded, and there was a lot of purulent discharge. Since that time, symptoms have been much, much better. There is still a skin opening on the right perianal skin. He has daily drainage from it, usually clear discharge mixed with a little bit of pus or blood. There is not enough discharge for him to wear a pad on his bottom, and he reports no staining of the underwear. He was evaluated recently by his busser for Crohn's followup, and he happened to mention the ongoing issues with the perianal skin and has been referred to our clinic for evaluation. Patient states that he is otherwise in stable health. Appetite and weight have been stable for at least the past year. No troubles with fevers or chills. No nausea, vomiting, or abdominal pain. He is moving his bowels at his baseline right now, which is typically about 5 times a day, usually loose consistency. No overnight bowel movements. He endorses occasional urgency but no episodes of incontinence to stool or gas. No blood per rectum. No pain with passage of stool. Patient does endorse occasional leakage and seepage from the rectum between bowel movements, but this does not happen frequently, and when it does it is usually mucus consistency. Patient continues to have the skin opening in the right perianal skin. There is never any gas or stool that passes through it that patient is aware of. No change in baseline urinary habits, no hematuria, no dysuria. Patient's last colonoscopy was performed by Dr. Matamoros on 02/25/2013 (see below for results) which did not reveal any evidence of active Crohn's disease in the colon. No history of prior anorectal surgery or procedure. COREFO Responses 12/26/2015 Incontinence Scale 2.77 Social [...] represents an increased level of functional disturbance. Imagin02/25/2013 Colonoscopy (Dr Matamoros) Findings: ? External [...] ? was normal. Recommendation: ?- Continue azathioprine. 05/01/2011 Colonoscopy (Dr Matamoros) Findings: ? The [...] biopsy: Colonic mucosa, negative for diagnostic abnormality. Past medical history: Patient Active Problem List Diagnosis Code ??? 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 Abnormal liver function test R79.89 ??? GERD (gastroesophageal reflux disease) K21.9 ??? Perianal abscess, right posterior K61.0 ??? Fgtdjoq-we-gqy K60.3 Past surgical history: Past Surgical History Procedure Laterality Date ??? Appendectomy 1999 ??? Meniscectomy 2002 arthroscopic, R knee ??? Pro lap, surg, colectomy, w/remvl term ileum 10/29/2010 ??LAPAROSCOPIC ASSISTED COLECTOMY, PARTIAL, REM.TERMINAL ILEUM performed by TORITO MOHAN at [facility] MAIN OR ??? Pro colonoscopy, biopsy 05/01/2011 COLONOSCOPY FLEXIBLE, WITH BX performed by Ramonita MATAMOROS at [facility] ENDOSCOPY ??? Pro colonoscopy, diagnostic 02/25/2013 COLONOSCOPY, DIAGNOSTIC performed by Ramonita Matamoros MD at [facility] ENDOSCOPY Allergies: Review of patient's allergies indicates no known allergies. Medications: Current Outpatient Prescriptions on File Prior to Visit Medication Sig Dispense Refill ??? alfuzosin (UROXATRAL) 10 mg Tablet Sustained Release 24 hr TAKE ONE TABLET BY MOUTH EVERY DAY 12 ??? ciprofloxacin (CIPRO) 500 mg Tablet [...] on file prior to visit. Social history: The patient lives in [place], [place], and works in the [employer] industry. Reports that he has never smoked. He does not have any smokeless tobacco history on file. He reports thathe drinks about 0.6 oz of alcohol per week He reports that he does not use illicit drugs. Family medical history: No known colorectal cancer, colorectal polyps, diverticular disease or ulcerative colitis. One cousin with Crohn's disease. Review of Systems as above, otherwise: Constitutional: [...] tremors, no fainting. Hematological: Negative for adenopathy. Physical Exam: Blood pressure (!) 141/95, pulse 90, temperature 36.5 ??C (97.7 ??F), resp. rate 18,height 182.9 cm (6' 0.01), weight (!) 103 kg (227 lb 1.2 oz), SpO2 100 %. Body mass index is 30.79kg/(m^2). NAD, very pleasant male, moist mucus membranes. No pallor. Anicteric. No audible wheeze, no increased work of breathing. No c/c/e. The patient was examined in the zwfcw-pbzj-oelho position with Ernst assisting. Gentle eversion of the anoderm revealed a small skin opening in the right posterior quadrant, without surrounding erythema, fluctuance or active discharge. I probed the lesion, and it tracked linearly towards the anus by approx 1cm by rough estimate. VLADIMIR was notable for normal r esting tone, as well as squeeze/aumengtation; no mass, no lump, no ulcer or tenderness. During VLADIMIR I was able to feel the probe pushing against the wall of the anus, but I was not able to identify anopening in the anal wall. Anoscopy was performed and the only abnormality seen was a pinpoint discharge of pus in the right lateral position within the anus. I pressed on the adjacent perianal skin, but was not able to create any more purulent discharge. Impression: 1. Crohn's disease with good systemic control 2. History of perianal abscess, with chronic drainage and high suspicion for fistula Plan: I discussed the etiology of pathophysiology of perianal Crohn's disease with the patient. I have also discussed him with Dr. Apurva Vivas, one of our colorectal surgeons. Given that I was able to visualize a small amount of pus from an opening in the anal wall but was unable to feel the probe make communication with the inside of the anus on visual exam, the plan will be to order an MRI pelvis with fistula protocol to assess for a definite fistula between the skin opening and the anus or rectum. Once we have the results of that study then we will proceed with further decision making regarding possible surgical intervention for the presumed fistula. Patient was advised to call us with any questions or concerns that should arise prior to his next visit. We will have him visit with the water registrar today to arrange the MRI and follow up with him once the results of that are available. Otherwise, patient will continue to follow up with his gastroenterology team regarding systemic control of his Crohn's disease. Thank you for the consultation. We appreciate the opportunity to take part in Igor Woodruff's care. Yadira Driver PA-C Division of Colon & Rectal Surgery [facility] [phone] CC: IRWIN GONSALEZ DO, Ramonita Matamoros MD documented in this encounter Plan of Treatment Upcoming Encounters Date Type Department Care Team (Latest Contact Info) Description 04/01/2024 12:35 PM EST Hospital Encounter [place] [address] Apurva Vivas MD [facility] [place] [address] 04/01/2024 12:35 PM EST - 04/01/2024 2:17 PM EST Surgery [place] [phone] Apurva iVvas MD [facility] [place] [address] ANORECTAL EXAM, REQUIRING ANESTHESIA, DIAGNOSTIC (WRVU 1.8) 04/26/2024 3:00 PM EST Office [place] [phone] Apurva Vivas MD [facility] [place] [address] Scheduled Procedures Name Priority Associated Diagnoses Date/Ti me ANORECTAL EXAM, REQUIRING ANESTHESIA, DIAGNOSTIC (WRVU 1.8) perianal crohns disease w/fistula 04/01/2024 12:35 PM EST SURGICAL TREATMENT OF ANAL FISTULA COMPLEX OR MULTIPLE W\WO SETON PLACEMENT (WRVU 6.39) perianal crohns disease w/fistula 04/01/2024 12:35 PM EST documented as of this encounter Visit Diagnoses Diagnosis Qxtwjns-ly-fry Anal fistula Perianal abscess, right posterior Abscess of anal and rectal regions documented in this encounter Care Teams Automatic Hemmer Relationship Specialty Start Date End Date Irwin Gonsalez DO [address] [place] [address] PCP - General 05/01/11 documented as of this encounter
--- OUTSIDE RECORDS SUMMARY | 2024-03-10 02:01 | XMS_ITS | Encounter Summary ---
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3 ??F) 05/02/2016 10:[address] Respiratory Rate 16 05/02/2016 11:06 AM EST Oxygen Saturation 97% 05/02/2016 11:15 AM EST Inhaled Oxygen Concentration - - Weight 103 kg (227 lb) 05/02/2016 8:52 AM EST Height 182.9 cm (6') 05/02/2016 8:52 AM EST Body Mass Index 30.79 05/02/2016 8:52 AM EST documented in this encounter Discharge Instructions * Discharge Instructions* Friend, Sujey Pulido RN - 05/02/2016 9:51 AM EST General Anesthesia Discharge Instructions Go [...] closest emergency room or call the hospital scientific process operator at [phone] and ask for physician periodontist covering for your physician. Questions or problems after 5pm or on a weekend: Call the [facility] scientific process operator at and ask for the physician periodontist covering for your doctor. * Patient Instructions* Maritza Lundberg - 05/02/2016 11:04 AM EST SECTION OF UROLOGY DISCHARGE INSTRUCTIONS: FOLLOW UP PLAN If not made at the time of discharge, please call [phone] (Urology) for an appointment in 3-4 weeks for surgery to remove your stone Future Appointments Date Time Provider Department Center 05/02/2016 11:05 AM [facility] DX OR 1 [facility] 05/02/2016 11:40 AM [facility] DX OR 1 [facility] 07/18/2016 8:30 AM Apurva Vivas MD [facility] 08/18/2016 4:00 PM Ramonita Pandey MD [facility] POST OPERATIVE OR POST HOSPITALIZATION CARE For problems or concerns related to this hospitalization call: [phone] weekdays, or on weekends or nights call [phone] and ask for the urology resident periodontist. KIDNEY STONE PATIENTS Try and drink enough fluid to make one half gallon of urine daily or 2 Liters of water. You should aim to have your urine be clear. URETERAL STENT PATIENTS You have a ureteral stent in place, it is normal for it to cause some irritation in your bladder and cause you to have blood in your urine. It may bother you when you urinate. This is normal. If you cannot tolerate this irritation or if you have severe back or side pain, you should call our office [phone] before 5PM or [phone] after hours. Please remember that this is a foreign body that must be removed or exchanged. If you do not return for your follow up appointment or procedure, you are at risk of having the stent become encrusted which may result in additional procedures. URINATION You will likely have a small amount of blood in your urine for the next several days, up to 10-14 days. This is normal; however, if you are passing large amounts of blood clots, bright red blood or are bleeding an unable to urinate please call our office at [phone] 5PM or [phone] after hours. ACTIVITY LEVEL: You should be able to resume your usual activities of daily living (eating, drinking, washing, walking.). DRIVING: Do not drive until you are off of all narcotic medications and you are not feeling significant pain that would prevent you from reacting quickly SHOWER / BATHING: No restrictions WOUND CARE - None needed DIET: Regular healthy as tolerated, drink plenty of fluids. MEDICATIONS: HOME MEDICATION - You may resume your home meds upon discharge. PAIN CONTROL - For mild to moderate pain control use: Acetamenophen (Tylenol) 650mg every 6 to 8 hours as needed. If you do not have renal function problems and are able to, take Ibuprofen 600mg to 800mg every 8 hours as needed. For the first few days after surgery, you should schedule alternating Acetaminophen and Ibuprofen every 6 to 8 hours so thatyou have a constant level of antiinflammatory medication in your system. Please keep track and DO NOT exceed 4,000mg of Acetaminophen (Tylenol) in one day. -For more severe pain control Use the narcotic pain medication that has been prescribed to you (typically: Oxycodone / Dilaudid /Hydrocodone / Morphine) ONLY NEEDED. These stronger medications may be required for the first couple of days after surgery. Use every 4 to 6 hours as needed, WEANING yourself off. Just because they are prescribed does NOT mean that you have to take them if your pain is otherwise controlled. If the narcotic has Acetaminophen (Tylenol) mixed in, please keep track and DO NOT exceed 4,000mg of Acetaminophen (Tylenol) in one day. If you are requiring narcotics, please use an over the counter stool stimulant such as Senna 1-2 tablets twice daily as needed to prevent constipation. Adjust the dose to allow for a daily formed bowel moment without straining. BOWEL HEALTH / CONSTIPATION PREVENTION It is absolutely LICONA to prevent constipation while recovering from most urologic surgeries. Keepingyou bowel movements regular (= a daily formed bowel movement WITHOUT straining) will help you urinate better, heal better, and feel better. Drink plenty of fluids (keep you urine clear) and eat plenty of fruits and vegetables and if needed an over the stool softer such as Colace 100mg twice daily. If you are requiring a narcotic, as above, please use a stool stimulant ( Senna or Bisacodyl) to keep your bowels moving! FLOMAX: This is a medication that will help to relax the bladder and ureter and will help to avoid irritation. This may cause dizziness so we recommend that you take it before bedtime. If you are unable to tolerate the medication, please stop the medication. REASONS TO CALL YOUR DOCTOR - If you develop a fever over 100.8 F - Severe pain that is not controlled by discharge pain medications - Inability to empty your bladder - Grossly bloody urine (tomatoe juice consistency) or passage of large blood clots - Further questions or concerns The number for questions is [phone] before 5 PM weekdays and [phone] after 5 PM and weekends. documented in this encounter Medications at Time [...] needed for Pain. 15 tablet 05/23/2016 10/24/2016 oxyCODONE (ROXICODONE) 5 mg Tablet Take 1 tablet by mouth every 4 hours as needed for Pain. 20 tablet 05/02/2016 10/24/2016 phenazopyridine (PYRIDIUM) 200 mg Tablet Take 1 tablet by mouth 3 times daily as needed for Pain. 14 tablet 05/02/2016 10/24/2016 Adalimumab 40 mg/0.8 mL Pen Injector Kit Inject 0.8 mLs subcutaneously every 14 days. 6 kit 1 04/25/2016 05/05/2017 azaTHIOprine (IMURAN) 50 mg Tablet TAKE FIVE TABLETS BY MOUTH EVERY DAY 150 tablet 5 09/24/2015 05/09/2016 documented as of this encounter Progress Notes * Ashley Rios RN - 05/02/2016 12:07 PM EST 1115: patient awake and reported urgent need to void. Requested to bedside to assist. Voided 75ml wilcox colored urine at bedside. Then c/o need to move bowels. Commode brought to bedside. Unable to go. 1200: back to bed- c/o pain 6/10 and continued effects of anesthesia. Settled in to bed. Fentanyl IV given. Encouraged to nap. at bedside. O2 sat on RA 99%. 1210: patient sleeping. O2 sat remains 99% on RA. 1245: patient awake. States pain is now tolerable. Discharge instructions reviewed. All questions answered. Written instructions and Rx given. 1300: Patient states that he would like to go home. Dr. Coleman made aware of continued BP lower than baseline. Patient's color is better. Ok for discharge. Voided at bedside again- 75ml wilcox colored urine., no clots. 1315: patient dressed with assistance from . Ambulated to private car in no acute distress. documented in this encounter H&P Notes * Maritza Lundberg - 05/02/2016 9:45 AM EST UROLOGY PRE-OPERATIVE HISTORY AND PHYSICAL UPDATE Igor Woodruff is a 41 y.o. gentleman presenting for attempted URS/stent placement for his [id number] renal stone. No change to medical history or recent illness / injury since last encounter on 04/30/16. Prior To Admission Medications: Reviewed as per [facility] Allergies: No Known Allergies PHYSICAL EXAM Temp: [36.6 ??C (97.9 ??F)] Heart Rate: [82] Resp: [18] BP: (147)/(94) SpO2: [96 %] Heart Rate from SPO2: -- GENERAL: No acute distress, sitting comfortably. A/O x 3. PULM: Non labored breathing COR: Regular rate ABD: soft, non-tender, non-distended. EXTREMITIES: symmetric, no edema. PERTINENT LABS: Results: Urine culture Status: Final result (Collected: 04/30/2016 ??3:28 PM) Result Information Date and Time Status Resulted: 05/01/2016 ??6:10 PM Final result Component Results Component Value Urine Culture No growth (Less than 1,000 cfu/ml). ASSESSMENT: Igor Woodruff is a 41 y.o. male who presents with the above history for planned LEFT URS. After a thorough discussion of the benefits and risks including bleeding, infection, damage to surrounding structures, davidson placement, PCN placement, repeat procedures, anesthetic risks, Igor Woodruff has elected to proceed. PLAN: -Consent signed -NPO -Site Marked: LEFT -Antibiotics:Cipro MARITZA LUNDBERG MD documented in this encounter Miscellaneous Notes * Op Note - Dougie Husain Jr., MD - 05/02/2016 11:02 AM EST [facility] Operative Note Patient Name: Igor Woodruff : [id number] MR#: [id number] Case Date: 05/02/2016 Surgeon: Surgeon(s) and Role: * Dougie Husain Jr., MD - Primary * Maritza Lundberg MD - Resident-Surgeon Chief Preoperative diagnosis: LEFT renal stone Postoperative diagnosis: LEFT renal stone Procedure(s) (LRB): CYSTO, STENT PLACEMENT (WRVU 2.82) (Left) CYSTOURETEROSCOPY, DIAGNOSTIC (WRVU 5.75) (Left) CYSTO, RETROGRADE, URETEROPYELOGRAPHY (WRVU 2.37) (Left) FLUOROSCOPY (WRVU 0.17) (Left) Anesthesia: General Findings: -Large median lobe -No LEFT hydroureteronephrosis on RPG / ureter narrowed throughout entire course -Bill Moore'S Slough ureter too narrow to accommodate either micro-6 or 4.9 fr pediatric semirigid ureteroscope -8F x 24cm ureteral stent placed without difficulty Complications: none Estimated Blood Loss: minimal Fluids: Intraprocedure Crystalloid Total None PRBCs: none (See Anesthesia Record/Report for Other Blood Products) Urine Output: (no blood products) Drains: LEFT 8F x 24cm ureteral stent Disposition: awakened from anesthesia, extubated and taken to the recovery room in a stable condition, having suffered no apparent untoward event. Condition: doing well without problems (Please see the Surgical Encounter Summary for any Implant and Specimen details pertinent to this patient.) Infection Bundle used? No HPI/Surgical Indications: Igor Woodruff is a 41 y.o. gentleman presenting for attempted URS/stent placement for his PEDM8cp renal stone. After a thorough discussion of the benefits and risks including bleeding, infection, damage to surrounding structures, davidson placement, PCN placement, repeat procedures, anesthetic risks, Igor Woodruff has elected to proceed. Procedure Description: Igor Woodruff was identified and consented in preop holding was taken to the operating room and placed on the operating room table in supine position. Preoperative antibiotic consisting of IV Ciprofloxacin was given and general anesthesia was administered. Once an adequate level of general anesthesia had been administered, the patient was moved into the dorsal lithotomy position and prepped and draped in usual sterile fashion. A safety timeout was held confirming the patient's identity, planned procedure, and laterality. Focused cystourethroscopy was performed in 360 degrees with the 22Frigid cystoscope with the 30-degree lens. The urethra was normal. The prostate demonstrated bilobar enlargement with a large median lobe. There were diffuse bladder trabeculations but otherwise no focal mucosal abnormalities or stones were noted. The LEFT ureteral orifice was cannulated with a 5fr pollock catheter and retrograde pyelogram performed. There was no hydroureteronephrosis, however theureter appeared narrowed throughout its trajectory. A filling defect was noted in the renal pelvis corresponding to CT image. A 0.035 glide wire was passed through the pollock, positioned with the proximal end in the renal pelvis confirmed on fluoroscopy. The bladder was emptied and the wire was secured as a safety wire. We inserted the micro-6 semirigid ureteroscope alongside the safety wire and found that the orifice and intramural portion of the ureteral orifice was narrowed thus a second wire was passed thru the scope, tenting open the orifice and intramural ureter. We were only able to advance 1cm into the distal ureter. This was removed and we switched to a pediatric ureteroscope, andeven with a Second wire were unable to advance past the distal ureter. Given that the naive ureter was narrowed throughout its trajectory, the decision was made to place a temporizing stent. The ureteral length was measured with a pollock catheter backloaded thru the cystoscope over the safety wire. We then placed an 8Fr 24 cm ureteral stent over the Glidewire and removed the wire with agood coil noted on fluoroscopy in the renal pelvis and cystoscopically in the bladder. The bladder was emptied. The patient was washed, dried, awakened, and returned to recovery in good condition. Dr. Husain was present for the entire procedure. * Brief Op Note - Maritza Lundberg - 05/02/2016 10:59 AM EST Brief Operative Note Patient Name: Igor Woodruff : [id number] MR#: [id number] Case Date: 05/02/2016 Surgeon: Surgeon(s) and Role: * Dougie Husain Jr., MD - Primary * Maritza Lundberg MD - Resident-Surgeon Chief Preoperative diagnosis: LEFT renal stone Postoperative diagnosis: LEFT renal stone Procedure(s) (LRB): CYSTO, STENT PLACEMENT (WRVU 2.82) (Left) CYSTOURETEROSCOPY, DIAGNOSTIC (WRVU 5.75) (Left) CYSTO, RETROGRADE, URETEROPYELOGRAPHY (WRVU 2.37) (Left) FLUOROSCOPY (WRVU 0.17) (Left) Anesthesia: General Findings: -Large median lobe -No LEFT hydroureteronephrosis on RPG / ureter narrowed throughout entire course -Bill Moore'S Slough ureter too narrow to accommodate pediatric rigid nephroscope -8F x 24cm ureteral stent placed without difficulty Complications: none Estimated Blood Loss: minimal Fluids: Intraprocedure Crystalloid Total None PRBCs: none (See Anesthesia Record/Report for Other Blood Products) Urine Output: (no blood products) Drains: LEFT 8F x 24cm ureteral stent Disposition: awakened from anesthesia, extubated and taken to the recovery room in a stable condition, having suffered no apparent untoward event. Condition: doing well without problems (Please see the Surgical Encounter Summary for any Implant and Specimen details pertinent to this patient.) Infection Bundle used? No Associated attestation - Dougie Husain Jr., MD - 05/02/2016 11:42 AM EST I was present and I participated during the entire procedure. documented in this encounter Plan of Treatment Upcoming Encounters Date Type Department Care Team (Latest Contact Info) Description 04/01/2024 12:35 PM EST Hospital Encounter [place] [phone] Apurva Vivas MD [facility] [address] 04/01/2024 12:35 PM EST - 04/01/2024 2:17 PM EST Surgery [place] [phone] Apurva Vivas MD [facility] [place] [place] [address] ANORECTAL EXAM, REQUIRING ANESTHESIA, DIAGNOSTIC (WRVU 1.8) 04/26/2024 3:00 PM EST Office [place] [phone] Apurva Vivas MD [facility] [place] [address] Scheduled Procedures Name Priority Associated Diagnoses Date/Ti [...] FLUORO NO RAD <1HR - OR USE STAT 05/02/2016 11:10 AM EST FLUOROSCOPY (WRVU 0.3) Yes 7 9:49 AM EST stone CYSTO, RETROGRADE, URETEROPYELOGRAPHY (WRVU 2.37) Yes 05/02/2016 9:49 AM EST stone CYSTOURETEROSCOPY, DIAGNOSTIC (WRVU 5.75) Yes 05/02/2016 9:49 AM EST stone CYSTO, STENT PLACEMENT (WRVU 2.82) Yes 05/02/2016 9:49 AM EST stone documented in this encounter Results * XR Fluoro No Rad <1Hr - OR Use (05/02/2016 11:10 AM EST) Narrative RAD - 05/02/2016 11:10 AM EST This order does not need a radiologist interpretation. ?? Dougie Husain Jr., MD IMG FLUORO ORDERAB LES Performing Organization Address City/State/[facility] Co de Phone Number [place], [place] documented in this encounter Visit Diagnoses Not [...] 9:20 AM EST 400 mg 200 mL/hr fentaNYL (PF) 50 mcg/mL 2mL syringe 25 mcg, Intravenous, EVERY 5 MIN PRN, Pain, for 1-4 pain score, Starting on Thu05/02/16 at 1056, Until Thu05/02/16 at 1344, for 1-4 pain score Hold for respiratory rate less than 10 per minute. Maximum dose: 250 mcg over one hour., PACU Recovery Given 05/02/2016 11:59 AM EST 25 mcg iohexol (OMNIPAQUE) 300 mg/mL solution ONCE PRN, Starting on Thu05/02/16 at 1019, Until Thu05/02/16 at 1547, Intra-Operative (Intra-Procedure), Routine Given 05/02/2016 10:19 AM EST 50 mLs 20-Other (document in comment section) lactated ringers infusion 1,000 mL 1,000 mL, at 100 mL/hr, Intravenous, CONTINUOUS, Starting on Thu05/02/16 at 0915, Until Thu05/02/16 at 1344, Day of Surgery (Day of Procedure) New Bag 05/02/2016 9:18 AM EST 1,000 mLs 100 mL/hr oxyCODONE (ROXICODONE) immediate release tablet 5 mg 5 mg, Oral, EVERY 4 HOURS PRN, Starting on Thu05/02/16 at 1233, Until Thu05/02/16 at 1344, Pain, PACU Recovery, Routine Given 05/02/2016 12:38 PM EST 5 mg documented in this encounter Active and Recently Administered Medications Times are shown in EST. Scheduled Medication Order 04/30/2016 05/01/2016 05/02/2016 ciprofloxacin (CIPRO) 400mg in dextrose 5% 200mL 400 mg, Intravenous, 30 MIN PRE-OP, 1 dose, On Thu05/02/16 at 0745, Administer over 60 Minutes, Indication for (Active or Suspected): Urinary Tract/Pyelonephritis, Restricted Antibiotic: Please indicate the most appropriate choice: Pre-approved Indication (State the indication in Comments field) 0920 (Given - Provid er: Sujey Eric RN)1001 (Given - Provider: Kacey Howell CRNA) Continuous Medication Order 04/30/2016 05/01/2016 05/02/2016 lactated ringers infusion 1,000 mL 1,000 mL, at 100 mL/hr, Intravenous, CONTINUOUS, Starting on Thu05/02/16 at 0915, Until Thu05/02/16 at 1344, Day of Surgery (Day of Procedure) 0918 (New Bag - Prov ider: Sujey Eric RN)1051 (Stopped - Provider: Kacey Howell CRNA) PRN Medication Order 04/30/2016 05/01/2016 05/02/2016 fentaNYL (PF) 50 mcg/mL 2mL syringe (CANCELED)(Linked Group 1) 25 mcg, Intravenous, EVERY 5 MIN PRN, Pain, for 1-4 pain score, Starting on Thu05/02/16 at 1056, Until Thu05/02/16 at 1344, for 1-4 pain score Hold for respiratory rate less than 10 per minute. Maximum dose: 250 mcg over one hour., PACU Recovery 1159 (Given - Provid er: Ashley Rios RN) iohexol (OMNIPAQUE) 300 mg/mL solution (CANCELED) ONCE PRN, Starting on Thu05/02/16 at 1019, Until Thu05/02/16 at 1547, Intra-Operative (Intra-Procedure), Routine 1019 (Given - Provid er: Dougie Husain Jr., MD - Comment: See MD notes - diluted one to one with 0.9% Nacl and used as needed during case.) lidocaine (XYLOCAINE) 10 mg/mL (1 %) injection 3 mg 3 mg (0.3 mL), Subcutaneous, ONCE PRN, 1 dose, Starting on Thu05/02/16 at 0855, Until Thu05/02/16 at 1344, for discomfort with PIV insertion, Day of Surgery (Day of Procedure), Routine oxyCODONE (ROXICODONE) immediate release tablet 5 mg (CANCELED) 5 mg, Oral, EVERY 4 HOURS PRN, Starting on Thu05/02/16 at 1233, Until Thu05/02/16 at 1344, Pain, PACU Recovery, Routine 1238 (Given - Provid er: Ashley Rios RN) sodium chloride 0.9 % flush 5-20 mL 5-20 mL, Intravenous, EVERY 1 MIN PRN, Starting on Thu05/02/16 at 0855, Until Thu05/02/16 at 1344, flush, Flush pertains to all indwelling lines. Flush per protocol found in the job aid using the link provided on this medication record., Day of Surgery (Day of Procedure), Routine Linked Groups Order Group 1: fentaNYL (PF) 50 mcg/mL 2mL syringe (CANCELED)Jump to med 25 mcg, Intravenous, EVERY 5 MIN PRN, Pain, for 1-4 pain score, Starting on Thu05/02/16 at 1056, Until Thu05/02/16 at 1344, for 1-4 pain score Hold for respiratory rate less than 10 per minute. Maximum dose: 250 mcg over one hour., PACU Recovery Or fentaNYL (PF) 50 mcg/mL 2mL syringe (CANCELED) 50 mcg, Intravenous, EVERY 5 MIN PRN, Pain, for 5-10 pain score, Starting on Thu05/02/16 at 1056, Until Thu05/02/16 at 1344, for 5-10 pain score Hold for respiratory rate less than 10 per minute. Maximum dose: 250 mcg over one hour., PACU Recovery documented in this encounter Care Teams Ballpoint Pen Assembly Machine Operator Relationship Specialty Start Date End Date Irwin Gonsalez DO [address] [place] [address] PCP - General 05/01/11 documented as of this encounter
--- OUTSIDE RECORDS SUMMARY | 2024-03-10 02:01 | XMS_ITS | Encounter Summary ---
Author Organization [facility] Address [facility] [place] [address] Care Team Providers Care Scarrer Name Role Phone Irwin Gonsalez DO Primary Care Provider [phone] Reason for Visit * Auth/Cert Specialty Diagnoses / Procedures Referred By Haresh powers Referred To Contact Diagnoses Gross hematuria stone Procedures PRO CYSTO/URETERO/PYELOSCOPY W/LITHOTRIPSY PRO CYSTOSCOPY, INSERT URETERAL STENT CYSTOURETEROSCOPY, LITHOTRIPSY (WRVU 7.5) CYSTO, STENT PLACEMENT (WRVU 2.82) MODIFIER HOLMIUM LASER Referral ID Status Reason Start Date Expiration Date Visits Re quested Visits Authorized [id number] 1 1 Encounter Details Date Type Department Care Team (Latest Contact Info) Description 05/02/2016 8:26 AM EST - 05/02/2016 1:14 PM [facility] Hospital Encounter [place] [address] Dougie Husain Jr., MD [facility] [place] [address] Discharge Disposition: Home Social History Tobacco Use [...] Sign Reading Time Taken Comments Blood Pressure 106/71 05/02/2016 12:55 PM EST Pulse 73 05/02/2016 11:06 AM EST Temperature 36.3 ??C (97.3 ??F) 05/02/2016 10:[address] Respiratory Rate 16 05/02/2016 11:06 AM EST Oxygen Saturation 100% 05/02/2016 12:25 PM EST Inhaled Oxygen Concentration - - [...] closest emergency room or call the hospital electronic prepress system operator at [phone] and ask for physician space control supervisor covering for your physician. Questions or problems after 5pm or on a weekend: Call the [facility] electronic prepress system operator at and ask for the physician space control supervisor covering for your doctor. * Patient Instructions* Melisa Lundberg - 05/02/2016 11:04 AM EST SECTION OF UROLOGY DISCHARGE INSTRUCTIONS: FOLLOW UP PLAN If not made at the time of discharge, please call [phone] (Urology) for an appointment in 3-4 weeks for surgery to remove your stone Future Appointments Date Time Provider Department Center 05/02/2016 11:05 AM [facility] DX OR 1 [facility] Xray [facility] 05/02/2016 11:40 AM [facility] DX OR 1 [facility] Xray [facility] 07/18/2016 8:30 AM Apurva Vivas MD [facility] 08/18/2016 4:00 PM Ramonita Pandey MD [facility] Gastro [facility] POST OPERATIVE OR POST HOSPITALIZATION CARE For problems or concerns related to this hospitalization call: [phone] weekdays, or on weekends or nights call [phone] and ask for the urology resident space control supervisor. KIDNEY STONE PATIENTS Try and drink enough [...] side pain, you should call our office [phone] before 5PM or [phone] after hours. Please remember that this is [...] to urinate please call our office at [phone] 5PM or [phone] after hours. ACTIVITY LEVEL: You should be [...] or concerns The number for questions is [phone] before 5 PM weekdays and [phone] after 5 PM and weekends. documented in [...] documented in this encounter H&P Notes * Melisa Lundberg - 05/02/2016 9:45 AM EST UROLOGY PRE-OPERATIVE HISTORY AND PHYSICAL UPDATE Igor Woodruff is a 41 y.o. gentleman presenting for attempted URS/stent placement for his LTXI4nm renal stone. No change to medical history [...] PLAN: -Consent signed -NPO -Site Marked: LEFT -Antibiotics:Marvin LUNDBERG MD documented in this encounter Miscellaneous Notes * Op Note - Dougie Husain Jr., MD - 05/02/2016 11:02 AM EST [facility] Operative Note Patient Name: Igor Woodruff : [id number] MR#: [id number] Case Date: 05/02/2016 Surgeon: Surgeon(s) and Role: * Dougie Husain Jr., MD - Primary * Melisa Lundberg MD - Resident-Surgeon Chief Preoperative diagnosis: LEFT renal stone Postoperative diagnosis: LEFT renal stone Procedure(s) (LRB): CYSTO, STENT PLACEMENT (WRVU 2.82) (Left) CYSTOURETEROSCOPY, DIAGNOSTIC (WRVU 5.75) (Left) CYSTO, RETROGRADE, URETEROPYELOGRAPHY (WRVU 2.37) (Left) FLUOROSCOPY (WRVU 0.17) (Left) Anesthesia: General Findings: -Large median lobe -No LEFT hydroureteronephrosis on RPG / ureter narrowed throughout entire course -[place] ureter too narrow to accommodate either micro-6 [...] presenting for attempted URS/stent placement for his LVWF0sb renal stone. After a thorough discussion of [...] entire procedure. * Brief Op Note - Melisa Lundberg - 05/02/2016 10:59 AM EST Brief Operative Note Patient Name: Igor Woodruff : [id number] MR#: [id number] Case Date: 05/02/2016 Surgeon: Surgeon(s) and Role: * Dougie Husain Jr., MD - Primary * Melisa Lundberg MD - Resident-Surgeon Chief Preoperative diagnosis: LEFT renal stone Postoperative diagnosis: LEFT renal stone Procedure(s) (LRB): CYSTO, STENT PLACEMENT (WRVU 2.82) (Left) CYSTOURETEROSCOPY, DIAGNOSTIC (WRVU 5.75) (Left) CYSTO, RETROGRADE, URETEROPYELOGRAPHY (WRVU 2.37) (Left) FLUOROSCOPY (WRVU 0.17) (Left) Anesthesia: General Findings: -Large median lobe -No LEFT hydroureteronephrosis on RPG / ureter narrowed throughout entire course -[place] ureter too narrow to accommodate pediatric rigid [...] PM EST Hospital Encounter [place] [phone] Apurva Vivas MD [facility] [place] [place] [address] 04/01/2024 12:35 PM EST - 04/01/2024 2:17 PM EST Surgery [place] [phone] Apurva Vivas MD [facility] [place] [place] [address] ANORECTAL EXAM, REQUIRING ANESTHESIA, DIAGNOSTIC (WRVU 1.8) 04/26/2024 3:00 PM EST Office [place] [phone] Apurva Vivas MD [facility] [place] [place] [address] Scheduled Procedures Name Priority Associated Diagnoses Date/Ti [...] IMG FLUORO ORDERAB LES Performing Organization Address City/State/[facility] Co de Phone Number [place], [place] documented in this encounter Visit Diagnoses [...] Given 05/02/2016 11:59 AM EST 25 mcg lactated ringers infusion 1,000 mL 1,000 mL, [...] Recovery documented in this encounter Care Teams Scarrer Relationship Specialty Start Date End Date Irwin Gonsalez DO [address] [place], [place] [address]Y [address] [place] [address] PCP - General 05/01/11 documented as of this encounter
--- OUTSIDE RECORDS SUMMARY | 2024-03-10 02:01 | XMS_ITS | Encounter Summary ---
Author Organization [facility] Address [facility] [place] [address] Care Team Providers Care Sewing Machine Tester Name Role Phone Irwin Gonsalez DO Primary Care Provider [phone] Encounter Details Date Type Department Care Team (Latest Contact Info) Description 03/04/2016 5:46 PM EST - 03/04/2016 11:59 PM EST Hospital Encounter XRay at [address] [place] [address] Ramonita Pandey MD [facility] [place] [address] Hematuria Discharge Disposition: Home Social History Tobacco Use [...] PM EST Hospital Encounter [place] [phone] Apurva Vivas MD [facility] [place] [address] 04/01/2024 12:35 PM EST - 04/01/2024 2:17 PM EST Surgery [place] [phone] Apurva Vivas MD [facility] [address] ANORECTAL EXAM, REQUIRING ANESTHESIA, DIAGNOSTIC (WRVU 1.8) 04/26/2024 3:00 PM EST Office [place] [phone] Apurva Vivas MD [facility] [address] Scheduled Procedures Name Priority Associated Diagnoses Date/Ti me ANORECTAL EXAM, REQUIRING ANESTHESIA, DIAGNOSTIC (WRVU 1.8) perianal crohns disease w/fistula 04/01/2024 12:35 PM EST SURGICAL TREATMENT OF ANAL FISTULA COMPLEX OR MULTIPLE W\WO SETON PLACEMENT (WRVU 6.39) perianal crohns disease w/fistula 04/01/2024 12:35 PM EST documented as of this encounter Procedures Procedure Name Priority Date/Time Associated Diagnosis Comments XR ABDOMEN 1 VIEW Routine 03/04/2016 5:5 7 PM EST Hematuria documented in this encounter Results * XR Abdomen 1 [...] documented in this encounter Visit Diagnoses Diagnosis Hematuria Hematuria, unspecified documented in this encounter Care Teams Sewing Machine Tester Relationship Specialty Start Date End Date Iwrin Gonsalez DO [address] [place] [address] PCP - General 05/01/11 documented as of this encounter
--- OUTSIDE RECORDS SUMMARY | 2024-03-10 02:01 | XMS_ITS | Encounter Summary ---
[place] [address] Care Team Providers Care Sales/Marketing Name Role Phone Irwin Gonsalez DO Primary Care Provider [phone] Reason for Visit * Reason Onset Date Comments Patient Education 05/23/2016 Medication Refill 05/19/2016 Encounter Details Date Type Department Care Team (Late st Contact Info) Description 05/19/2016 [place] [phone] Perri Sousa, [facility] Social History Tobacco Use Types [...] Miscellaneous Notes * Telephone Encounter - Power Billingsley, [facility] - 07/25/2016 3:41 PM EDT [facility] - Refill Follow Up Diagnosis: Crohn's Medication: Humira q 14 day regimen Appropriate therapy: yes New medications: n/a New medical conditions: n/a New allergies: n/a Adherence: lapsed by 4 days this week (should have administered on Thursday but will administer today) - has one pen left for that dose. Patient Questions/Concerns: should he take it today (yes) & arranged to mail out. Also, we determined that a new prior authorization will be required so we have started the process and should have it finished within a week. Next follow-up: expected at time of next refill on or about August 22, 2016 * Telephone Encounter - Perri Romo [facility] - 06/17/2016 11:09 AM EDT [facility] - Refill Follow Up Diagnosis: Crohn's Medication: Humira - q14 day injections Appropriate therapy: yes New medications: none New medical conditions: Recently had kidney stone removal. Started therapy again on 06/09 New allergies: none Adherence: One missed dose due to surgery Patient Questions/Concerns: Igor would like us to mail out his refill on 07/01 Next follow-up: Next refill * Telephone Encounter - Perri Romo [facility] - 05/23/2016 1:45 PM EST [facility] Specialty Pharmacy: Clinical Management Plan Diagnosis: Crohn's Drug: Humira- standard q14 days Appropriate therapy: yes Comorbidities: See ???Problem List?? Medication reconciliation: completed today, 05/23 Consult on medication: Provided on 05/21 and 05/23 Injection training: We reviewed injection technique. Igor is comfortable with injecting. Side effects: none Adherence: No missed doses Patient Questions: none Additional comments: Igor had kidney stones removed and a stent placed today. His , Casi, came in to seed cone picker his Humira. His injection is due today. I asked Casi to hold the Humira while the stent is in. I discussed this further with Shannan Barnard, and she agreed Igor should hold the Humira until his follow up with the surgeon. Casi verbalized understanding. Igor's follow up appointment is yet to be scheduled but should be within 7-10 days per the surgeon. Received Welcome Packet: provided with Rx Informed patient of specialty pharmacy services: yes Next follow-up: Next refill * Telephone Encounter - Perri Romo [facility] - 05/21/2016 1:41 PM EST Left a message for maintenance dose fill confirmation * Telephone Encounter - Perri Romo [facility] - 05/19/2016 1:06 PM EST Left a message for refill confirmation documented in this encounter Plan of Treatment Upcoming Encounters Date Type Department Care Team (Latest Contact Info) Description 04/01/2024 12:35 PM EST Hospital Encounter [place] [phone] Apurva Vivas MD [facility] [place] [address] 04/01/2024 12:35 PM EST - 04/01/2024 2:17 PM EST Surgery [place] [phone] Apurva Vivas MD [facility] [place] [address] ANORECTAL EXAM, REQUIRING ANESTHESIA, DIAGNOSTIC (WRVU 1.8) 04/26/2024 3:00 PM EST Office [place] [phone] Apurva Vivas MD [facility] [place] [address] Scheduled Procedures Name Priority Associated Diagnoses Date/Ti [...] on filedocumented in this encounter Care Teams Sales/Marketing Relationship Specialty Start Date End Date Irwin Gonsalez DO [address] [place] [address] PCP - General 05/01/11 documented as of this encounter
--- OUTSIDE RECORDS SUMMARY | 2024-03-10 02:01 | XMS_ITS | Encounter Summary ---
[place] [address] Care Team Providers Care Plate Filler Name Role Phone Irwin Gonsalez DO Primary Care Provider [phone] Encounter Details Date Type Department Care Team (Latest Contact Info) Description 03/21/2016 4:15 PM EST Laboratory Appointment Lab [address] [place] [address] Crohn's disease with other complication, unspecified gastrointestinal tract location; Gross hematuria Social History Tobacco Use Types [...] PM EST Hospital Encounter [place] [phone] Apurva Vivas MD [facility] [place] [address] 04/01/2024 12:35 PM EST - 04/01/2024 2:17 PM EST Surgery [place] [address] Apurva Vivas MD [facility] [place] [address] ANORECTAL EXAM, REQUIRING ANESTHESIA, DIAGNOSTIC (WRVU 1.8) 04/26/2024 3:00 PM EST Office [place] [phone] Apurva Vivas MD [facility] [place] [address] Scheduled Procedures Name Priority Associated Diagnoses Date/Ti me ANORECTAL EXAM, REQUIRING ANESTHESIA, DIAGNOSTIC (WRVU 1.8) perianal crohns disease w/fistula 04/01/2024 12:35 PM EST SURGICAL TREATMENT OF ANAL FISTULA COMPLEX OR MULTIPLE W\WO SETON PLACEMENT (WRVU 6.39) perianal crohns disease w/fistula 04/01/2024 12:35 PM EST documented as of this encounter Procedures Procedure Name Priority Date/Time Associated Diagnosis Comments HEMOGRAM Routine 03/21/2016 4:32 PM EST Crohn's disease with other complication, unspecified gastrointestinal tract location DIFFERENTIAL, AUTOMATED Routine 03/21/2016 4:32 PM EST Crohn's disease with other complication, unspecified gastrointestinal tract location CREATININE Routine 03/21/2016 4:32 PM EST Gross hematuria CBC (WITH DIFF) Routine 03/21/2016 4:32 PM EST Crohn's disease with other complication, unspecified gastrointestinal tract location CRP, CARDIAC RISK (HS CRP) Routine 03/21/2016 4:32 PM EST Crohn's disease with other complication, unspecified gastrointestinal tract location HEPATIC FUNCTION PANEL Routine 03/21/2016 4:32 PM EST Crohn's disease with other complication, unspecified gastrointestinal tract location documented in this encounter Results * Differential, Automated (03/21/2016 4:32 PM EST) Neutrophil % 57.6 % [facility] Neutrophil Absolute 3.02 1.70 - 6.10 x10(3)/[facility] Lymph % 33.6 % [facility] Lymphocytes Abs 1.8 0.9 - 3.2 x10(3)/[facility] Monocyte % 5.7 % [facility] Monocyte Abs 0.3 0.3 - 0.9 x10(3)/[facility] Eos % 2.5 % [facility] Eosinophils Abs 0.1 0.0 - 0.4 x10(3)/[facility] Basophil % 0.4 % [facility] Baso Absolute 0.0 0.0 - 0.1 x10(3)/[facility] Immature Gran % 0.20 % [facility] Comment: Immature granulocytes(IG's)percentage and absolute count will include metamyelocytes, myelocytes, and promyelocytes. Blood smears from CBCs yielding IG's will be scanned manually for concordance. If this scan disagrees with the automated IG or if promyelocytes are noted, a manual differential will be performed. Immature Gran Absolute 0.01 0.00 - 0.04 x10(3)/[facility] Blood specimen (specimen) 03/21/2016 4:32 PM EST 03/21/2016 4:36 PM EST Narrative Resulting Agency Comment Spec In Lab L Timothy Pandey MD HEMATOLOGY ORDERABLE S [facility] [place] [address] * Hemogram (03/21/2016 4:32 PM EST) White Blood Cell 5.2 4.0 - 9.5 x10(3)/[facility] Red Blood Cell 4.89 4.58 - 5.54 x10(6)/[facility] Hemoglobin 14.8 13.7 - 16.5 gm/dL [facility] Hematocrit 42.2 40.5 - 48.5 % [facility] Mean Cell Volume 86.3 82.9 - 93.1 fL [facility] Mean Cell Hemoglobin 30.3 27.5 - 32.1 pg [facility] Mean Cell Hemoglobin Concentration 35.1 32.0 - 35.7 gm/dL [facility] Platelet 251 145 - 357 x10(3)/[facility] RDW Standard Deviation 40.7 36.0 - 45.0 fL [facility] RDW coefficient of variation 13.0 11.4 - 13.8 % [facility] Mean Platelet Volume 9.4 7.6 - 12.9 fL [facility] NRBC% auto 0.0 % [facility] NRBC Absolute 0.000 0.000 - 0.000 x10(3)/[facility] Blood specimen (specimen) 03/21/2016 4:32 PM EST 03/21/2016 4:36 PM EST Narrative Resulting Agency Comment Spec In Lab L Timothy Pandey MD HEMATOLOGY ORDERABLE S [facility] [place] [address] * Creatinine (03/21/2016 4:32 PM EST) Creatinine 0.84 0.80 - 1.50 mg/dL [facility] Comment: Please note that the pediatric reference intervals supplied above were not validated at [facility] [place] [place]. Results from pediatric patients should be interpreted in conjunction to the patient's age, height and muscle mass. Est Glomerular Filtration Rate >60 >=60 [facility] Comment: This estimated GFR (eGFR) value [...] the following links into your internet browser. [email or web address] Blood specimen (specimen) 03/21/2016 4:32 PM EST 03/21/2016 4:36 PM EST Narrative Resulting Agency Comment Spec In Lab Warren Reeves MD CHEMISTRY ORDERABLES Performing Organization Address [facility] Co de Phone Number [facility] [address] * Hepatic Function Panel (03/21/2016 4:32 PM EST) [facility] Protein, Total 7.3 6.1 - 8.0 gm/dL [facility] Albumin 4.4 3.2 - 5.2 gm/dL [facility] Aspartate Aminotransferase 36 0 - 39 unit/L [facility] Alanine Aminotransferase 54 0 - 55 unit/L [facility] Alkaline Phosphatase 54 40 - 120 unit/L [facility] Bilirubin, Total 1.0 0.2 - 1.3 mg/dL [facility] Bilirubin, Direct 0.2 0.0 - 0.3 mg/dL [facility] Blood specimen (specimen) 03/21/2016 4:32 PM EST 03/21/2016 4:36 PM EST Narrative Resulting Agency Comment Spec In Lab Ramonita Pandey MD CHEMISTRY ORDERABLES Performing Organization Address [facility] Co de Phone Number [facility] [place] [address] * High Sensitivity CRP (03/21/2016 4:32 PM EST) C-Reactive Protein High Sensitivity 0.3 mg/L [facility] Comment: For cardiac risk assessment, two values (fasting or nonfasting sample acceptable) taken at least 2 weeks apart, should be averaged to provide a more reliable estimate of marker level. This laboratory will be using the recommendations from the AHA/CDC Scientific Statement for interpretations of future risks of cardiovascular events: ?<1.0 mg/L: low risk ?1.0 to 3.0 mg/L: moderate risk ?>3.0 mg/L: high risk ?>10.0 mg/L: Acute Inflammation Note: CRP values >10 mg/L indicate an acute inflammatory condition or infection. The >10 mg/L value should not be used for cardiac risk assessment and a repeat specimen should be collected at least two weeks after resolution of the acute inflammatory condition. References: 1. Page HARTMAN et. al. ??AHA/CDC Scientific Statement: Markers of Inflammation and Cardiovascular Disease. ??Circulation 2003; 107:499-511 2. Shahram PM. ??Clinical applications of C-reactive protein for cardiovascular disease detection and prevention. ??Circulation 2003; 107:363-369 CRP Cardiac Risk Low Risk [facility] Blood specimen (specimen) 03/21/2016 4:32 PM EST 03/21/2016 4:36 PM EST Narrative Resulting Agency Comment Spec In Lab L Timothy Pandey MD CHEMISTRY ORDERABLES [facility] [place] [address] documented in this encounter Visit Diagnoses Diagnosis Crohn's disease with other complication, unspecified gastrointestinal tract location Gross hematuria documented in this encounter Care Teams Plate Filler Relationship Specialty Start Date End Date Irwin Gonsalez DO [address] [place] [address] PCP - General 05/01/11 documented as of this encounter
--- OUTSIDE RECORDS SUMMARY | 2024-03-10 02:01 | XMS_ITS | Encounter Summary ---
Author Organization [facility] Address [facility] [place] [address] Care Team Providers Care Pricing Analyst Name Role Phone Irwin Gonsalez DO [...] Expiration Date Visits Re quested Visits Authorized [id number] 1 1 Encounter Details Date Type Department Care Team (Latest Contact Info) Description 02/26/2016 6:13 AM EST - 02/26/2016 9:23 AM [facility] Hospital Encounter [place] [phone] Apurva Vivas MD [facility] [place] [address] Discharge Disposition: Home Social History Tobacco Use [...] Sign Reading Time Taken Comments Blood Pressure 138/76 02/26/2016 9:00 AM EST Pulse 72 02/26/2016 9:00 AM EST Temperature 36.3 ??C (97.3 ??F) 02/26/2016 8:21 AM ES T Respiratory Rate 18 02/26/2016 9:00 AM EST Oxygen Saturation 99% 02/26/2016 9:00 AM EST Inhaled Oxygen Concentration - - [...] buttocks. 2. Pain medications ?? Please take ysde-gyh-kojgoax pain medications for post-operative discomfort. ?? Acetaminophen [...] . Divison of Colon and Rectal Surgery, [facility] [address] ??? [place] [address] ??? documented in this encounter Medications at [...] fat saturation within the large and small uftbv-fx-eazj; multiplanar T1-weighted gradient images pre and post intravenous gadolinium (10 mL's Gadavist) with fat saturation and a small bxddf-nq-ffjt. ?? COMPARISON: None ?? FINDINGS: A small [...] ??? Perianal abscess, right posterior K61.0 ??? Wsnyfyb-gl-qpy K60.3 ? Past surgical history: Past??Surgical??History Past Surgical History Procedure Laterality Date ??? Appendectomy ?? 1999 ??? Meniscectomy ?? 2002 ? arthroscopic, R knee ??? Pro lap, surg, colectomy, w/remvl term ileum ?? 10/29/2010 ?LAPAROSCOPIC ASSISTED COLECTOMY, PARTIAL, REM.TERMINAL ILEUM performed by TORITO MOHAN [facility] OR ??? Pro colonoscopy, biopsy ?? 05/01/2011 ? COLONOSCOPY FLEXIBLE, WITH BX performed by Ramonita MATAMOROS at [facility] END[facility] ??? Pro colonoscopy, diagnostic ?? 02/25/2013 ? COLONOSCOPY, DIAGNOSTIC performed by Ramonita Matamoros MD at [facility] END[facility] ?? Allergies: Review of patient's allergies [...] ? Social history: The patient lives in [place], [place], and works in the [employer] industry. Reports that he has never smoked. [...] seton placement Will need to see his superintendent recreation to discuss possible changes to his medical management for Crohn's in the setting of fistula in ano. ?? Apurva Vivas MD process manager Division of Colon and Rectal Surgery [facility] Pager [phone] documented in this encounter Miscellaneous Notes * Op Note - Apurva Vivas MD - 02/26/2016 8:17 AM EST [facility] Operative Note Patient Name: Igor Woodruff : [id number] MR#: [id number] Case Date: 02/26/2016 Surgeon: Surgeon(s) and Role: [...] surgery clinic after being referred by his superintendent recreation for 5 - 6 months of soreness [...] PM EST Hospital Encounter Main Operating Room [facility] [place] [address] Apurva Vivas MD [facility] [place] [address] 04/01/2024 12:35 PM EST - 04/01/2024 2:17 PM EST Surgery [place] [phone] Apurva Vivas MD [facility] [place] [address] ANORECTAL EXAM, REQUIRING ANESTHESIA, DIAGNOSTIC (WRVU 1.8) 04/26/2024 3:00 PM EST Office Visit [place] [phone] Apurva Vivas MD [facility] [place] [address] Scheduled Procedures Name Priority Associated Diagnoses Date/Ti [...] Recovery documented in this encounter Care Teams Pricing Analyst Relationship Specialty Start Date End Date Irwin Gonsalez DO [address] [place] [address] PCP - General 05/01/11 documented as of this encounter
--- OUTSIDE RECORDS SUMMARY | 2024-03-10 02:02 | XMS_ITS | Encounter Summary ---
[place] [address] Care Team Providers Care Air Motor Repairer Name Role Phone Irwin Gonsalez DO Primary Care Provider Encounter Details Date Type Department Care Team (Late st Contact Info) Description 06/21/2015 Telephone [place] [address] Jayna Osborne Social History Tobacco Use Types Packs/Day Years [...] encounter Miscellaneous Notes * Telephone Encounter - Jayna Oates - 06/21/2015 3:54 PM EDT Caller: patient Call for: nursing Reason for call: needs new standing lab orders put in (current orders just ) documented in this encounter Plan of Treatment Upcoming Encounters Date Type Department Care Team (Latest Contact Info) Description 04/01/2024 12:35 PM EST Hospital Encounter [place] [address] Apurva Vivas MD [facility] [place] [address] 04/01/2024 12:35 PM EST - 04/01/2024 2:17 PM EST Surgery [place] [phone] Apurva Vivas MD [facility] [place] [address] ANORECTAL EXAM, REQUIRING ANESTHESIA, DIAGNOSTIC (WRVU 1.8) 04/26/2024 3:00 PM EST Office [place] [phone] Apurva Vivas MD [facility] [place] [address] Scheduled Procedures Name Priority Associated Diagnoses Date/Ti me ANORECTAL EXAM, REQUIRING ANESTHESIA, DIAGNOSTIC (WRVU 1.8) perianal crohns disease w/fistula 04/01/2024 12:35 PM EST SURGICAL TREATMENT OF ANAL FISTULA COMPLEX OR MULTIPLE W\WO SETON PLACEMENT (WRVU 6.39) perianal crohns disease w/fistula 04/01/2024 12:35 PM EST documented as of this encounter Visit Diagnoses Not on filedocumented in this encounter Care Teams Air Motor Repairer Relationship Specialty Start Date End Date Irwin Gonsalez DO [address] [place] [address] [address] [place] [address] PCP - General 05/01/11 documented as of this encounter
--- OUTSIDE RECORDS SUMMARY | 2024-03-10 02:02 | XMS_ITS | Encounter Summary ---
Author Organization [facility] [place] [address] Care Team Providers Care Real Estate Teacher Name Role Phone Irwin Gonsalez DO Primary Care Provider Reason for Visit * Reason Comments Follow-up Encounter Details Date Type Department Care Team (Late st Contact Info) Description 10/10/2014 3:30 PM EDT [place] [phone] Ramonita Pandey MD [facility] [place] [address] Crohn's disease, without complications; Crohn's disease, unspecified complication Discharge Disposition: Home Social History Tobacco Use [...] Sign Reading Time Taken Comments Blood Pressure 131/89 10/10/2014 3:18 PM EDT Pulse 96 10/10/2014 3:18 PM EDT Temperature - - Respiratory Rate - - Oxygen Saturation - - Inhaled Oxygen Concentration - - Weight 99.7 kg (219 lb 14.4 oz) 10/10/2014 3:18 PM EDT Height 182.9 cm (6') 10/10/2014 3:18 PM EDT Body Mass Index 29.82 10/10/2014 3:18 PM EDT documented in this encounter Patient Instructions * Patient Instructions* Ramonita Pandey MD - 10/10/2014 4:35 PM EDT # Continue the azathioprine as you have been. # Please have your labs (complete blood count, liver tests, and C-reactive protein) checked once every 3-4 months. Will check them here today. # Recommended annual flu shot. # Recommend pneumococcal vaccine (23 valent). Will do today. # The nature of sun-induced photo-aging and association between azathioprine and skin cancers is discussed. Sun avoidance, protective clothing, and the use of 30-SPF sunscreens is advised. Observe closely for skin damage/changes, and annual skin exam is recommended. # Plan on repeat colonoscopy for staging - depending on symptoms - 5 yrs from surgery (2015). # Follow-up with me in the office in about 6-8 months. documented in this encounter Progress Notes * Ramonita Pandey MD - 10/10/2014 4:22 PM EDT PROBLEM LIST ??? Crohn's ileitis diagnosed [...] see me for the first time since last February for his Crohn's disease. He is s/p ileocolonic resection in 10/29/10. He had 19.5 cm of ileum removed. 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 His last colonoscopy was February 2013 and did not show active disease. He has been feeling run down over the last few weeks. 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 The wet summer has made for a difficult summer. He is moving his bowels typically 3-4 times per day and on bad days he is having 5-6 stools per day. Stool is always semi-solid to loose. There was some abdominal pain in August. Lasted for three days and was intermittent. It resolved spontaneously. He continues to take azathioprine 250 mg per day. He is missing doses very rarely. 3-4 missed dosesin the last 3-4 months. There has been no apthous stomatitis, episcleritis, uveitis, inflammatory arthritis, pyoderma gangrenosum, erythema nodosum, or perianal lesions. Review of Systems Constitutional: Negative for fever, fatigue and unexpected weight change. HENT: Negative for mouth sores. Eyes: Negative for pain and redness. Respiratory: Negative for cough and shortness of breath. Cardiovascular: Negative for chest pain and palpitations. Gastrointestinal: Negative for nausea, vomiting, abdominal pain, diarrhea, constipation, blood in stool and abdominal distention. Genitourinary: No perianal lesions, drainage, or pain. He has noticed some a bump in the rectum and treated it with cream. He feels it is hemorrhoids. Musculoskeletal: Negative. Skin: Negative. Itchy raised lesion on the arms and hands. Had warts burned earlier this year at Dr. Gonsalez's office. Objective: Physical Exam Constitutional: He appears well-nourished. [...] Well-healed remote surgical incisions in the midline. Musculoskeletal: He exhibits no edema. Neurological: He is alert. Skin: Skin is warm and dry. No rash noted. Vitals reviewed. Wt Readings from Last 3 Encounters: 10/10/14 99.746 kg (219 lb 14.4 oz) 02/14/14 107.004 kg (235 lb 14.4 oz) 11/08/12 101.152 kg (223 lb) Lab Results Component Value Date WBC 4.4 02/14/2014 RBC 4.82 02/14/2014 HGB 15.0 02/14/2014 HCT 41.6 02/14/2014 MCV 86.3 02/14/2014 MCH 31.1 02/14/2014 MCHC 36.1 02/14/2014 PLATELET 237 02/14/2014 RDWCV 13.1 02/14/2014 Lab Results Component Value Date ALT 32 02/14/2014 AST 24 02/14/2014 ALKPHOS 56 02/14/2014 BILITOT 0.8 02/14/2014 Lab Results Component Value Date CRP 0.3 02/14/2014 Assessment and Plan: Mr. Woodruff is doing well. He is in complete remission. Suspect that his loose stools are due to bile acid diarrhea. He prefers not to take bile acid binders. We discussed the importance of regular lab work. He will have some drawn today. We discussed the following recommendations that were printed out for the patient: # Continue the azathioprine as you have been. # Please have your labs (complete blood count, liver tests, and C-reactive protein) checked once every 3-4 months. Will check them here today. # Recommended annual flu shot. # Recommend pneumococcal vaccine (23 valent). Will do today. # The nature of sun-induced photo-aging and association between azathioprine and skin cancers is discussed. Sun avoidance, protective clothing, and the use of 30-SPF sunscreens is advised. Observe closely for skin damage/changes, and annual skin exam is recommended. # Plan on repeat colonoscopy for staging - depending on symptoms - 5 yrs from surgery (2016). # Follow-up with me in the office in about 6-8 months. Angelo Pandey MD [employer]hesive Sprayerpublic works inspector Section of Gastroenterology [place] [address] CC: IRWIN GONSALEZ DO (General) [address] [place] [address] documented in this encounter Plan of Treatment Upcoming Encounters Date Type Department Care Team (Latest Contact Info) Description 04/01/2024 12:35 PM EST Hospital Encounter [place] [phone] Apurva Vivas MD [facility] [place] [address] 04/01/2024 12:35 PM EST - 04/01/2024 2:17 PM EST Surgery [place] [phone] Apurva Vivas MD [facility] [place] [address] ANORECTAL EXAM, REQUIRING ANESTHESIA, DIAGNOSTIC (WRVU 1.8) 04/26/2024 3:00 PM EST Office [place] [phone] Apurva Vivas MD [facility] [place] [address] Scheduled Orders Name Type Priority Associated Diagnoses Orde r Schedule CBC (with Diff) Lab Routine Crohn's disease, without complications Expected: 10/10/2014 (Approximate), Expires: 01/08/2015 Hepatic Function Panel Lab Routine Crohn's disease, without complications Expected: 10/10/2014 (Approximate), Expires: 01/08/2015 High Sensitivity CRP Lab Routine Crohn's disease, without complications Expected: 10/10/2014 (Approximate), Expires: 01/08/2015 Scheduled Procedures Name Priority Associated Diagnoses Date/Ti me ANORECTAL EXAM, REQUIRING ANESTHESIA, DIAGNOSTIC (WRVU 1.8) perianal crohns disease w/fistula 04/01/2024 12:35 PM EST SURGICAL TREATMENT OF ANAL FISTULA COMPLEX OR MULTIPLE W\WO SETON PLACEMENT (WRVU 6.39) perianal crohns disease w/fistula 04/01/2024 12:35 PM EST documented as of this encounter Procedures Procedure Name Priority Date/Time Associated Diagnosis Comments HEMOGRAM Routine 10/10/2014 4:56 PM EDT Crohn's disease, unspecified complication DIFFERENTIAL, AUTOMATED Routine 10/10/2014 4:56 PM EDT Crohn's disease, unspecified complication CBC (WITH DIFF) Routine 10/10/2014 4:56 PM EDT Crohn's disease, unspecified complication CRP, CARDIAC RISK (HS CRP) Routine 10/10/2014 4:56 PM EDT Crohn's disease, unspecified complication HEPATIC FUNCTION PANEL Routine 10/10/2014 4:56 PM EDT Crohn's disease, unspecified complication documented in this encounter Results * Differential, Automated (10/10/2014 4:56 PM EDT) Neutrophil % 60.8 % CERNER MILLENNIUM Neutrophil Absolute 3.38 1.50 - 6.30 x10(3)/mcL CERNER MILLENNIUM Lymph % 30.0 % CERNER MILLENNIUM Lymphocytes Abs 1.7 1.0 - 3.6 x10(3)/mcL CERNER MILLENNIUM Monocyte % 7.7 % CERNER MILLENNIUM Monocyte Abs 0.4 0.2 - 1.0 x10(3)/mcL CERNER MILLENNIUM Eos % 1.1 % CERNER MILLENNIUM Eosinophils Abs 0.1 0.0 - 0.5 x10(3)/mcL CERNER MILLENNIUM Basophil % 0.2 % CERNER MILLENNIUM Baso Absolute 0.0 0.0 - 0.2 x10(3)/mcL CERNER MILLENNIUM Immature Gran % 0.20 % CERN ER MILLENNIUM Comment: Immature granulocytes(IG's)percentage and absolute count will include metamyelocytes, myelocytes, and promyelocytes. Blood smears from CBCs yielding IG's will be scanned manually for concordance. If this scan disagrees with the automated IG or if promyelocytes are noted, a manual differential will be performed. Immature Gran Absolute 0.01 0.00 - 0.05 x10(3)/mcL CERNER MILLENNIUM Blood specimen (specimen) 10/10/2014 4:56 PM EDT 10/10/2014 5:01 PM EDT Narrative Resulting Agency Comment Spec In Lab L Timothy Pandey MD HEMATOLOGY ORDERABLE S CERNER MILLENNIUM * (ABNORMAL) Hemogram (10/10/2014 4:56 PM EDT) White Blood Cell 5.6 4.0 - 10.0 x10(3)/mc L CERNER MILLENNIUM Red Blood Cell 4.83 4.63 - 6.08 x10(6)/mc L CERNER MILLENNIUM Hemoglobin 15.0 13.7 - 17.5 gm/dL CERNER MILLENNIUM Hematocrit 40.9 40.0 - 51.0 % CERNER MILLENNIUM Mean Cell Volume 84.7 79.0 - 92.0 fL CERNER MILLENNIUM Mean Cell Hemoglobin 31.1 25.6 - 32.2 pg CERNER MILLENNIUM Mean Cell Hemoglobin Concentration 36.7(H) 32.0 - 36.5 gm/dL CERNER MILLENNIUM Platelet 256 145 - 370 x10(3)/mc L CERNER MILLENNIUM RDW Standard Deviation 40.2 35.0 - 46.0 fL CERNER MILLENNIUM RDW coefficient of variation 13.2 10.9 - 14.4 % CERNER MILLENNIUM Mean Platelet Volume 9.9 9.0 - 12.0 fL CERNER MILLENNIUM Blood specimen (specimen) 10/10/2014 4:56 PM EDT 10/10/2014 5:01 PM EDT Narrative Resulting Agency Comment Spec In Lab L Timothy Pandey MD HEMATOLOGY ORDERABLE S Performing Organization Address [facility] de Phone Number JESENIA GOLDBERG * Hepatic Function Panel (10/10/2014 4:56 PM EDT) Protein, Total 7.1 6.1 - 8.0 gm/dL CERNER MILLENNIUM Albumin 4.5 3.2 - 5.2 gm/dL CERNER MILLENNIUM Aspartate Aminotransferase 22 0 - 39 unit/L CERNER MILLENNIUM Alanine Aminotransferase 26 0 - 55 unit/L CERNER MILLENNIUM Alkaline Phosphatase 58 40 - 120 unit/L CERNER MILLENNIUM Bilirubin, Total 0.9 0.2 - 1.3 mg/dL CERNER MILLENNIUM Bilirubin, Direct 0.2 0.0 - 0.3 mg/dL CERNER MILLENNIUM Blood specimen (specimen) 10/10/2014 4:56 PM EDT 10/10/2014 5:01 PM EDT Narrative Resulting Agency Comment Spec In Lab L Timothy Pandey MD CHEMISTRY ORDERABLES Performing Organization Address [facility] Phone Number JESENIA LUAIUM * High Sensitivity CRP (10/10/2014 4:56 PM EDT) C-Reactive Protein High Sensitivity 1.4 mg/L CERNER MILLENNIUM Comment: Interpretations: 1) For accurate cardiac risk [...] prevention. ??Circulation 2003; [phone] Blood specimen (specimen) 10/10/2014 4:56 PM EDT 10/10/2014 5:01 PM EDT Narrative Resulting Agency Comment Spec In Lab L Timothy Pandey MD CHEMISTRY ORDERABLES Performing Organization Address City/State/[facility] Co de Phone Number [facility] documented in this encounter Visit Diagnoses Diagnosis Crohn's disease, without complications Crohn's disease, unspecified complication documented in this encounter Care Teams Real Estate Teacher Relationship Specialty Start Date End Date Irwin Gonsalez DO [address] [place] [address] PCP - General 05/01/11 documented as of this encounter
--- OUTSIDE RECORDS SUMMARY | 2024-03-10 02:02 | XMS_ITS | Encounter Summary ---
Author Organization [facility] Address [facility] [place] [address] Care Team Providers Care Aluminum Boat Assembly Supervisor Name Role Phone Irwin Gonsalez DO Primary Care Provider Reason for Visit * Reason Onset Date Comments Prior Authorization 05/01/2015 BOTOX P/A Encounter Details Date Type Department Care Team (Late st Contact Info) Description 05/01/2015 Telephone Dermatology at [facility] [address] [place] [phone] Bharathi Foote MD [facility] DR [address] [address] Prior Authorization (BOTOX P/A) Social History Tobacco Use Types Packs/Day Years [...] encounter Miscellaneous Notes * Telephone Encounter - ArleneKimberleeMissy R - 05/01/2015 9:38 AM EST ?? Expand All Collapse All Prior Authorization Patient: Igor Monzonjoshua : 1975 Insurance Company: [facility] Medication: Botox for Hyperhidrosis?? Prior Authorization Status: [place] APPROVED FOR BOTOX FOR 1 CALENDAR YEAR 05/01/15-04/30/16 documented in this encounter Plan of Treatment Upcoming Encounters Date Type Department Care Team (Latest Contact Info) Description 04/01/2024 12:35 PM EST Hospital Encounter [place] [address] Apurva Vivas MD [facility] [place] [address] 04/01/2024 12:35 PM EST - 04/01/2024 2:17 PM EST Surgery [place] [phone] Apurva Vivas MD [facility] [place] [address] ANORECTAL EXAM, REQUIRING ANESTHESIA, DIAGNOSTIC (WRVU 1.8) 04/26/2024 3:00 PM EST Office [place] [phone] Apurva Vivas MD [facility] [place] [address] Scheduled Procedures Name Priority Associated Diagnoses Date/Ti me ANORECTAL EXAM, REQUIRING ANESTHESIA, DIAGNOSTIC (WRVU 1.8) perianal crohns disease w/fistula 04/01/2024 12:35 PM EST SURGICAL TREATMENT OF ANAL FISTULA COMPLEX OR MULTIPLE W\WO SETON PLACEMENT (WRVU 6.39) perianal crohns disease w/fistula 04/01/2024 12:35 PM EST documented as of this encounter Visit Diagnoses Not on filedocumented in this encounter Care Teams Aluminum Boat Assembly Supervisor Relationship Specialty Start Date End Date Irwin Gonsalez DO [address] [place] [address] [address] [place] [address] PCP - General 05/01/11 documented as of this encounter
--- OUTSIDE RECORDS SUMMARY | 2024-03-10 02:02 | XMS_ITS | Encounter Summary ---
Author Organization [facility] Address [facility] [place] [address] Care Team Providers Care Roper Operator Name Role Phone Irwin Gonsalez DO Primary Care Provider [phone] Reason for Visit * Reason Comments Skin Check Encounter Details Date Type Department Care Team (Late st Contact Info) Description 02/24/2013 10:00 AM EST Follow-Up Dermatology at [facility] [address] [place] [phone] Diony Foote MD [facility] [address] [place] [address] Atypical nevus (Primary Dx); Axillary hyperhidrosis Discharge Disposition: Home Social History Tobacco Use [...] as of this encounter Progress Notes * Diony Foote MD - 02/24/2013 10:21 AM EST Images from the original note were not included. Laly Toure 1975 38 y.o. Chief Complaint: 1. Limited Spot Examination 2. Forearm lesions, ? Skin cancer HISTORY/Objective: Laly Toure is a 38 y.o. year old male. New patient to me. Today's issues and concerns: - Focal, limited exam today, can return for full skin exam later date - 2 spots of concern on right forearm present for a few months EXAMINATION/Objective: Patient appeared healthy and in no apparent distress. Specific focal area examined: exam of the torso upper extremities and axilla Today's Specific Findings on Examination: - SKs, nothing worrisome on arms - 8 mm dark brown macule located on left mid back - Photo documentation taken with patient permission see below DIAGNOSIS/ASSESSMENT: 1. Atypical Nevus PLAN: Discussion: 1. Will do shave biopsy of atypical mole on back today Procedures: SHAVE BIOPSY ONLY: Location: right mid back . Size: 8 mm. Buffered lidocaine with epinephrine, lesion biopsied via shave technique, into the dermis, double edge razor, intention of biopsy or samplingpart of the lesion. Cautery for hemostasis, bacitracin and a band aid placed, would care reviewed. I'll call or write a letter with results. Follow up: 1. Based on pathology report PROBLEM: 1. Axillary Hyperhidrosis 2. Here for treatment options including Botox injections SUBJECT: 38 y.o. year old male. Here for discussion of treatment options for hyperhidrosis. Specifically here to discuss Botox, since Drysol and antipersperant failed. Sympathectomy not resonable in my opinion. Botox for hyperhidrosis inhibits muscle contraction of the sweat glands preventing sweating and some odor reduction. This is a proven and reasonable option for this problem. No anesthesia is usually needed for this [...] with increased moisture/sweating. DIAGNOSIS: 1. Axillary Hyperhidrosis Discussion: 1. Spent over half of this visit discussing hyperhidrosis treatment options, specifically Botox, expectations, length of action, re-treatment, cost, insurance approval needed and answered all questions. 2. We agreed to proceed. 3. We expect this to inhibit or decrease sweating for 6-9 months. 4. FU as required. May need to get another approval at that time. 5 Discussed Yvonne dry with patient today, after discussion he say he would be willing to try this procedure if available to him. Procedure: 1. Re-discussed procedure, answered all questions and patient agreed to proceed. 2. Sterile prep of axillae with alcohol, grid marked in the axillae, with pinpoints 1cm apart. Approximately 50cm square area. 3. Botox (5 units/0.1cc) was injected into this grid by MS Foote. approximately 2.5 units at eachpoint on the grid for 50 units in each axillae, 100 units total. 4. No complications. Follow up: 1. 6 months sooner if needed GANESH DEJESUS LPN I am documenting this encounter acting as the scribe for and in the presence of Camelia Duncan LPN. I performed the above scribed service and agree with the accuracy of the documentation in this encounter, Ria Foote MD documented in this encounter Plan of Treatment Upcoming Encounters Date Type Department Care Team (Latest Contact Info) Description 04/01/2024 12:35 PM EST Hospital Encounter [place] [address] Apurva Vivas MD [facility] [place] [address] 04/01/2024 12:35 PM EST - 04/01/2024 2:17 PM EST Surgery [place] [address] Apurva Vivas MD [facility] [place] [address] ANORECTAL EXAM, REQUIRING ANESTHESIA, DIAGNOSTIC (WRVU 1.8) 04/26/2024 3:00 PM EST Office [place] [phone] Apurva Vivas MD [facility] [place] [address] Scheduled Procedures Name Priority Associated Diagnoses Date/Ti me ANORECTAL EXAM, REQUIRING ANESTHESIA, DIAGNOSTIC (WRVU 1.8) perianal crohns disease w/fistula 04/01/2024 12:35 PM EST SURGICAL TREATMENT OF ANAL FISTULA COMPLEX OR MULTIPLE W\WO SETON PLACEMENT (WRVU 6.39) perianal crohns disease w/fistula 04/01/2024 12:35 PM EST documented as of this encounter Procedures Procedure Name Priority Date/Time Associated Diagnosis Comments SPECIMEN TO PATHOLOGY (NON-OR) Routine 02/24/2013 10:42 AM EST Atypical nevus SURGICAL PATHOLOGY REPORT Routine 02/24/2013 10:41 AM EST documented in this encounter Results * Specimen to Pathology (NON-OR) (02/24/2013 10:42 AM EST) AP Specimen 02/24/2013 10:4 2 AM EST 02/24/2013 10:42 AM EST Narrative JESENIA FRAGARONI - 02/24/2013 10:42 AM EST Specimen requisition ordered. ??Separate Pathology report to follow Diony Foote MD PATHOLOGY/CYTOL OGY ORDERABLES JESENIA FRAGARONI * Surgical Pathology Report (02/24/2013 10:41 AM EST) Surgical Pathology Report ? [facility] ? Provider: ?? DIONY FOOTE ?Pt. Name: ?? LALY TOURE ?JADYN ? Acc #: ?[id number] ? Pt. ? Col Date: ?? 02/24/2013 ?/Sex: ?1975,(38 years),Male ? Rec Date: ?? 02/24/2013 ?LOC: ?HDM ? SURGICAL PATHOLOGY ? ---Pathologic Diagnosis--- ? Skin, left mid back, shave biopsy only: ?Lentiginous compound dysplastic nevus with moderate atypia, focally ? extending to the peripheral specimen edge (see Comment). ? CR-0 ? Dictated by: ??Guadalupe Guerrero MD ? Dermatopathology Fellow ? As the attending physician, I attest that I examined the histologic slides, ? and confirm Dr. Guadalupe Guerrero' diagnosis. ? 02/25/13 ? BJM ? 02/26/13 Verified by: ? Lawrence JONES, PhD, Tres ? Dermatopathologist ? (Electronic Signature) ? The attending pathologist whose signature appears on this report has ? reviewed all diagnostic slides and has edited the gross and/or ? microscopic portion of the report in rendering the final pathologic ? diagnosis. ? ---Comment--- ? Multiple deeper levels have been examined. Dr. Batista has reviewed this ? case and concurs with this diagnosis. ? ---Gross Description--- ? A - Labeled/Fixative: Patient demographics, formalin. ? Quantity/Size: Single, 1.2 x 1.0 x 0.1 cm. ? Tissue Description: Shave of mazariegos-white skin with a central 0.8 x 0.8 cm, ? symmetrical dark brown macule. ? Sections/Processing: The specimen is inked and serially sectioned. ? The ends are submitted in (1); the remainder in (2). (T2) ??ejr ? ---Clinical Information--- ? Specimen Submitted: ? A - Skin left mid back shave biopsy only (1) ? Clinical History: ? [facility] ? Provider: ?? DIONY FOOTE ?Pt. Name: ?? LALY TOURE ?JADYN ? Acc #: ?[id number] ? Pt. ? Col Date: ?? 02/24/2013 ?/Sex: ?1975,(38 years),Male ? Rec Date: ?? 02/24/2013 ?LOC: ?HDM ? 8 mm dark brown macule ? SURGICAL PATHOLOGY ? Clinical Diagnosis: ? Atypical nevus JESENIA GOLDBERG 02/24/2013 10:4 1 AM EST Diony Foote MD PATHOLOGY/CYTOL ALLISON ORDERABLES JESENIA GOLDBERG documented in this encounter Visit Diagnoses Diagnosis Atypical nevus- Primary Benign neoplasm of skin, site unspecified Axillary hyperhidrosis Primary focal hyperhidrosis documented in this encounter Administered Medications Inactive Administered Medications - up to 3 most recent administrations Medication Order MAR Action Action Date Dose Rate Site botulinum toxin type A (BOTOX) injection 100 Units 100 Units, Intramuscular, ONCE, 1 dose, On Any 02/24/13 at 1100, Routine Given 02/24/2013 10:44 AM EST 100 Units 20-Other (document in comment section) documented in this encounter Care Teams Roper Operator Relationship Specialty Start Date End Date Irwin Gonsalez DO [address] [facility] [address] [place] [address] PCP - General 05/01/11 documented as of this encounter
--- OUTSIDE RECORDS SUMMARY | 2024-03-10 02:02 | XMS_ITS | Encounter Summary ---
[place] [address] Care Team Providers Care Cuprous Chloride Helper Name Role Phone Irwin Gonsalez DO Primary Care Provider Encounter Details Date Type Department Care Team (Late st Contact Info) Description 06/27/2011 Telephone [place] [phone] Swetha Berry, RN Social History Tobacco Use Types Packs/Day [...] encounter Miscellaneous Notes * Telephone Encounter - Swetha Le RN - 06/27/2011 10:50 AM EDT Message left again for pt: Per Dr thomas: Message Davi Ricardo I left a msg on Mr. Gan's home phone this weekend. We had him hold AZA 250 PO qd due to low WBC. Labschecked 05/17 showed normalization of the WBC. If he has not already done so, he should restart aza at 200 mg PO QD (LOWER DOSE) and have labs rechecked in 2 weeks. Would you please try to make sure hehas that message. Thank you!! C documented in this encounter Plan of Treatment Upcoming Encounters Date Type Department Care Team (Latest Contact Info) Description 04/01/2024 12:35 PM EST Hospital Encounter [place] [phone] Apurva Vivas MD [facility] [place] [address] 04/01/2024 12:35 PM EST - 04/01/2024 2:17 PM EST Surgery [place] [phone] Apurva Vivas MD [facility] [place] [address] ANORECTAL EXAM, REQUIRING ANESTHESIA, DIAGNOSTIC (WRVU 1.8) 04/26/2024 3:00 PM EST Office Visit [place] [phone] Apurva Vivas MD [facility] [place] [address] Scheduled Procedures Name Priority Associated Diagnoses Date/Ti me ANORECTAL EXAM, REQUIRING ANESTHESIA, DIAGNOSTIC (WRVU 1.8) perianal crohns disease w/fistula 04/01/2024 12:35 PM EST SURGICAL TREATMENT OF ANAL FISTULA COMPLEX OR MULTIPLE W\WO SETON PLACEMENT (WRVU 6.39) perianal crohns disease w/fistula 04/01/2024 12:35 PM EST documented as of this encounter Visit Diagnoses Not on filedocumented in this encounter Care Teams Cuprous Chloride Helper Relationship Specialty Start Date End Date Irwin Gonsalez DO [address] [place] [address] [address] [place] [address] PCP - General 05/01/11 documented as of this encounter
--- OUTSIDE RECORDS SUMMARY | 2024-03-10 02:02 | XMS_ITS | Encounter Summary ---
[place] [address] Care Team Providers Care Plumber Apprentice Name Role Phone Irwin Gonsalez DO Primary Care Provider Encounter Details Date Type Department Care Team (Late st Contact Info) Description 05/13/2012 Telephone [place] [phone] Swetha Berry RN Social History Tobacco Use Types Packs/Day [...] Telephone Encounter - Swetha Le RN - 05/13/2012 2:54 PM EST Per ROB Santana: Madiha Conway or Swetha, I saw his labs done 02/2012- borderline low WBC. I'm not sure if Timothy already addressed it. If not, could you have him repeat this . If still low WBC, will need to hold his AZA, Vivien restrepo Message left asking pt to call back documented in this encounter Plan of Treatment Upcoming Encounters Date Type Department Care Team (Latest Contact Info) Description 04/01/2024 12:35 PM EST Hospital Encounter [place] [phone] Apurva Vivas MD [facility] [place] [address] 04/01/2024 12:35 PM EST - 04/01/2024 2:17 PM EST [place] [phone] Apurva Vivas MD [facility] [place] [address] ANORECTAL EXAM, REQUIRING ANESTHESIA, DIAGNOSTIC (WRVU 1.8) 04/26/2024 3:00 PM EST Office [place] [phone] Apurva Vivas MD [facility] [place] [address] Scheduled Procedures Name Priority Associated Diagnoses Date/Ti me ANORECTAL EXAM, REQUIRING ANESTHESIA, DIAGNOSTIC (WRVU 1.8) perianal crohns disease w/fistula 04/01/2024 12:35 PM EST SURGICAL TREATMENT OF ANAL FISTULA COMPLEX OR MULTIPLE W\WO SETON PLACEMENT (WRVU 6.39) perianal crohns disease w/fistula 04/01/2024 12:35 PM EST documented as of this encounter Visit Diagnoses Not on filedocumented in this encounter Care Teams Plumber Apprentice Relationship Specialty Start Date End Date Irwin Gonsalez DO [address] [place] [address] PCP - General 05/01/11 documented as of this encounter
--- OUTSIDE RECORDS SUMMARY | 2024-03-10 02:02 | XMS_ITS | Encounter Summary ---
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 Name Role Phone Jesus Gonsalez DO Primary Care Provider [phone] Reason for Referral * Consultation (Routine) - Closed Specialty Diagnoses / Procedures Referred By Conthemanth t Referred To Contact Dermatology Diagnoses Rash Ramonita Pandey MD [facility] [place] [address] Bharathi Foote MD [facility] [place] [address] Referral ID Status Reason Start Date Expiration Date V isits Requested Visits Authorized [id number] Closed Consult, Test & Treat 11/08/2012 05/07/2013 1 1 Reason for Visit * Reason Comments Follow-up Encounter Details Date Type Department Care Team (Late st Contact Info) Description 11/08/2012 2:30 PM EDT [place] [address] Ramonita Pandey MD [facility] [place] [address] Crohn's ileitis (Primary Dx); Rash Discharge Disposition: Home Social History Tobacco Use [...] Sign Reading Time Taken Comments Blood Pressure 150/89 11/08/2012 2:34 PM EDT Pulse 83 11/08/2012 2:34 PM EDT Temperature - - Respiratory Rate - - Oxygen Saturation - - Inhaled Oxygen Concentration - - Weight 101.2 kg (223 lb) 11/08/2012 2:34 PM EDT Height 185.4 cm (6' 1) 11/08/2012 2:34 PM EDT Body Mass Index 29.42 11/08/2012 2:34 PM EDT documented in this encounter Patient Instructions * Patient Instructions* Ramonita Pandey MD - 11/08/2012 2:50 PM EDT Images from the original note were not included. 1. Check complete blood count, liver tests, and also metabolites of azathioprine. 2. Based on these results, we may want to increase your dose back up to 4 tablets per day. 3. Repeat colonoscopy in about 4 months after azathioprine dose is optimized. 4. Will let you know when to have labs rechecked locally - at least every 3 months. 5. Referral back to Dr. Foote for new lesions on the arms and treatment of hyerhydrosis. 6. Follow-up at the time of colonoscopy and in the office in 10 months or sooner as needed. HALF LYTELY BOWEL PREPARATION Please follow these instructions for your preparation, and disregard the instruction you received from the pharmacy. We have enclosed Frequently Asked Questions to answer questions you may have about this preparation. Please see the enclosed General Information on Your Colonoscopy for medication information. PURCHASE: ?? ONE (1) Nulytely prescription or generic (prescription enclosed) - this prescription makes ONE GALLON of Bowel Preparation - you will drink ONLY 1/2 of the Bowel Preparation; please disregard the pharmacy instructions. ?? FOUR (4) bisacodyl tablets - these are NOT with your prescription, but can be purchased at the pharmacy over the counter (OTC). GENERAL INSTRUCTIONS: ?? If you recently had surgery, or if you have any heart problems, talk to your doctor before starting the preparation. ?? If you have had this preparation in the past, and it has not worked well, let us know before starting the preparation at this time. Please call [phone] to let us know that you cannot take thepreparation. ?? Please make a plan to bring someone to drive you home after the exam, and plan to not drive for 24 hours after your procedure. Due to the sedation given during the procedure, we cannot perform your procedure, unless you have an adult who can pick you up in the Endoscopy Center after your procedure, and escort you home. In the interest of patient safety, there can be no exceptions to this. Please, no alternative forms of transportation like cabs or buses. THE DAY BEFORE THE COLONOSCOPY: ?? Follow these instructions to ensure a safer, and more thorough exam. Do NOT eat or drink anything purple, red, or blue. ?? The day before your colonoscopy, you will have CLEAR LIQUIDS only. Clear Liquid Diet - you may have: ?? Broth, bouillon ?? Tea or coffee (you may have sugar, but no dairy or non-dairy creamer) ?? Apple juice, white grape juice, white cranberry juice ?? Meredith megan, Sprite, Seven-up, Abigail Mist HALF LYTELY BOWEL PREPARATION (con't) ?? Water ?? Jell-O without any fruit or vegetables added; no purple, red, or blue Jell-O ?? Popsicles; no purple, red, or blue, Life Savers THE EVENING BEFORE THE COLONOSCOPY: 2:00pm - Take all 4 bisacodyl tablets. Continue drinking clear liquids. Mix the preparation to makeone gallon of liquid; leave it at room temperature so it is easier to drink. Remember that you will be drinking only ONE HALF (1/2) of the gallon of preparation 6:00pm - Start drinking the cleansing preparation, and continue to drink other clear liquids. 10:00pm - Finish all but 2 3 glasses so you can sleep. Save 2 - 3 glasses to dink the morning of your exam. THE DAY OF YOUR COLONOSCOPY ?? Do not eat breakfast. Please finish drinking the last 2 or 3 glasses of your colonoscopy preparation. You may have clear liquids until one hour before you arrive at the Endoscopy Center (4T). ?? You will need to arrive ONE HOUR before your procedure time to help you prepare for your procedure; please see your letter for exact arrival time. ?? Please plan to be at [facility] for about 3 hours; please see your letter for estimated procedure and discharge times. If you have read the information thoroughly, and still have questions about what you have read, please call [phone] between the hours of 7:00am - 7:00pm, Thursday - Thursday and a nurse will assist you. If you have an urgent matter after hours, please call [phone], and ask to speak to the Gastroenterology Fellow instructional developer. If you need to reschedule your colonoscopy, please call [phone]. We do have a high volume of patients for this exam, so please give at least 72 hours notice for routine rescheduling. HALF LYTELY BOWEL PREPARATION (con't) We do our best to be on time, however sometimes there are emergencies. While this doesn't happen very often, you may have a wait time. We want each and every patient to get the excellent care our Endoscopy Center provides, therefore we thank you in advance for your patience if your procedure is unexpectedly delayed. Please make a plan to bring someone to drive you home after the exam, and plan to not drive for 24 hours after your procedure. Due to the sedation given during the procedure, we cannot perform your procedure, unless you have an adult who can pick you up in the Endoscopy Center, after your procedureand escort you home. In the interest of patient safety, there can be no exceptions to this. Please,no alternative forms of transportation like cabs or buses. HELPFUL HINTS ?? You may flavor the preparation with Crystal Light;Crystal Light is a powered drink mix you buy in your grocery store (pink lemonade is a popular choice). Most patients prefer Crystal Light to the flavor packets that come with the preparation. You may flavor individual glasses of the preparation with different flavors (no purple, red, or blue) of Crystal Light, but do not add Crystal Light to the entire gallon jug of preparation, or you will have only one flavor for the entire preparation. ?? Drink one glass of the preparation every 10 - 15 minutes. If you feel too full, stop for 20 - 30minutes, and then continue drinking. You may find it helpful to drink through a straw. ?? Continue to drink lots of clear liquids while you are drinking the preparation. ?? By 10:00pm you should be passing yellow fluid when you move your bowels. If you are not clear inthe morning, please call in the morning before you leave home for further instructions. PLEASE NOTE: Your bowel movements will never be totally clear because of bile, and other digestive juices in your intestine. After your preparation, you should have yellow or greenish-yellow liquid that you are excreting. ?? You do need to drink 2 - 3 glasses of preparation the morning of, but please remember that these2 - 3 glasses are considered part of your 03/17 gallon. GENERAL INFORMATION ON YOUR COLONOSCOPY What is a Colonoscopy? A colonoscopy is a procedure where a specially trained doctor uses a thin, flexible tube to examinethe entire large intestine. As the tube is advanced through the intestine, a video sensor in the tube transmits images to a television monitor. You should be able to go back to your usual activities after 24 hours, although occasionally people may take a bit longer. Why does your doctor want you to have a colonoscopy? ?? Colon cancer is the 2nd leading cause of from cancer in the [place] today. ?? The majority of people who get colon caner have no family history or symptoms, and are over 50. ?? A colonoscopy is the most accurate test for detection of polyps, and colorectal cancer, drastically reduce the chances of developing cancer. ?? If you do not have polyps, you may be able to go 10 years before your next colonoscopy. ?? A colonoscopy screens the entire colon in most cases. Colon cancer is found in all segments of the colon. Are there risks with a colonoscopy? A colonoscopy is a common procedure and complications are extremely unlikely, however, any procedure involves some risk. The risk for a colonoscopy includes:the device perforating (poking a hole in) the lining of the colon; bleeding in the large intestine; having a reaction to the medication used in the procedure; GENERAL INFORMATION ON YOUR COLONOSCOPY (con't) or having the provider miss seeing a cancerous growth. Such complications may require a blood transfusion and/or surgery. Although complications are extremely rare with a colonoscopy, you will be given a consent form to show that you understand the risks involved. HOW TO PREPARE FOR YOUR COLONOSCOPY After you have scheduled your colonoscopy: ?? Check your insurance benefits. Not all insurances cover screening colonoscopies. If you are under 50 years of age and/or have a PPO insurance, this procedure may not be covered or your may have some out of pocket expenses. ?? Please make a plan to bring someone to drive you home after the exam, and plan to no drive for 24 hours after your procedure. Due to the sedation given during the procedure, we cannot perform yourprocedure unless an adult who can pick you up in the Endoscopy Center after your procedure, and escort you home. In the interest of patient safety, there can be no exception to this. Please, no alternative forms of transportation like cabs or buses. After you receive your information packet from Gastroenterology and Hepatology and [facility]: ?? Please read ALL information in your information packet. ?? If you have read the information thoroughly, and still have questions about what you have read, please call [phone] between the hours of 7:00am - 7:00pm Thursday - Thursday, and a nurse will assist you. ?? If you have an urgent matter after hours, please call [phone], and ask to speak to the Gastroenterology Fellow instructional developer. ?? If you need to reschedule your colonoscopy, please call [phone]. We do have a high volume of patients for this exam, so please give a least 72 hours notice for routine rescheduling. MEDICATION INFORMATION ?? Please call your prescribing physician to see if it is safe for you to lessen the dose or stop your medication prior to this procedure. Please note: If you cannot safely stop these medications, please call [phone]. The prescribing physician can give you instructions on how to take your medications, before and after your procedure if you: GENERAL INFORMATION ON YOUR COLONOSCOPY (con't ?? If you take blood thinners like Coumadin, Aggrenox, Lovenox injections or anti-platelets like Plavix (Clopidogrel), Ticlid, Reopro, Integrilin, or Aggrastat call your prescribing physician to see if you can safely stop your medications, please call us, and let us know. Lovenox injections must bestopped 16 hours prior to the procedure. ?? If you are a diabetic, please talk to your doctor about the potential of decreasing your medicine, because you will not be eating as usual before the colonoscopy. Please bring your supplies with you for the procedure. ?? If you are On Anti-Arthritic medication. ?? If you take pain medications - Please do NOT stop taking your pain medications before our procedure. ?? If you take iron pills - Please do not take them 1 week prior; this includes multivitamins with iron in them. ?? Please continue to take your current medications if you take: ?? Chronic narcotics. ?? Anti-rejection medication after having a transplant. The day before your colonoscopy: ?? Take your colonoscopy preparation as directed by the instructions that are included in this packet of information - do not use the instructions from the pharmacy. The day of your colonoscopy: ?? Wear comfortable clothes ?? Do not eat breakfast. Please finish drinking the last 2 or 3 glasses of your colonoscopy preparation. You may have clear liquids until one hour before you arrive (2 hours before your procedure) [facility] [place] () ?? You will need to arrive ONE HOUR before your procedure time, to help you prepare for your procedure; please see your letter for exact arrival time. ?? Please plan to be at [facility] for about 3 hours; please see the included form letter for estimated procedure and discharge times. GENERAL INFORMATION ON YOUR COLONOSCOPY (con't) ?? We do our best to be on time, however sometimes there are emergencies. While this doesn't happenvery often you may have a wait time. We want each and every patient to get the excellent care Endoscopy Center provides, therefore we thank you in advance for your patience if your procedure is unexpectedly delayed. ?? You will be given medication (Versed and Demerol) to make you sleepy, and comfortable during theprocedure. Please bring someone to drive you home after the exam, and do not drive for 24 hours after your procedure. Due to the sedation given during the procedure, we cannot perform your procedure unless you have an adult who can pick you up in the Endoscopy Center, after your procedure and escort you home. In the interest of patient safety, there can be no exceptions to this. Please no alternative forms of transportation like cabs or buses. ?? Your doctor will use a thin, flexible tube to examine the entire large intestine. As the tube isadvanced through the intestine, a video sensor in the tube transmits images to a television monitor. You should be able to go back to your usual activities after 24 hour although occasionally people may take a bit longer. After your colonoscopy: ?? Do not drive, operate equipment or plan to make any major decisions for 24 hours after your colonoscopy. Due to the sedation given during the procedure, we cannot perform your procedure unless youhave an adult who can pick you up in the Endoscopy Center after your procedure, and escort you home. Please, no alternative forms of transportation like cabs or buses. [email or web address] FREQUENTLY ASKED QUESTIONS ABOUT YOUR COLONOSCOPY Q: Can I drive myself home after a colonoscopy? A: No. The medication that you are given during your procedure will make you sleepy, so please arrange a responsible adult to pick you up after your procedure. DUE TO THE SEDATION GIVEN DURING THE PROCEDURE, WE CANNOT PERFORM YOUR PROCEDURE UNLESS YOU HAVE ANADULT WHO CAN PICK YOU UP IN THE ENDOSCOPY CENTER, AFTER YOUR PROCEDURE, AND ESCORT YOU HOME. UNFORTUNATELY, IN THE INTEREST OF PATIENT SAFETY, THERE CAN BE NO EXCEPTION TO THIS Q: What do I do about the medication I currently take? A: Please call your prescribing physician if you: ?? Take blood thinners like Coumadin, Aggrenox, Lovenox injections or anti- platelets like Plavix (Clopidogrel), Ticlid, Reopro, Integrilin, and Aggrastat to see if you can safely stop your medicationbefore your procedure. If there is a problem with stopping your medications, please call us and letus know. ?? Are a diabetic. Please talk to your doctor about the potential of decreasing your medicine, because you will not be eating as usual before the colonoscopy. ?? Have Lovenox injections - injections must be stopped 16 hours prior to the procedure. ?? You are on Anti-Arthritic medication. ?? Take iron pills, please do not take them 1 week prior; this includes multi- vitamins with iron inthem. A: Please continue to take your current medications if you: ?? Take chronic narcotics. ?? Take anti-rejection medications after having a transplant. Q: I am taking a lot of pain medication. Will I be able to be sedated enough during my procedure? Generally you will be adequately sedated with the moderate sedation medications used for routine colonoscopy. If you are taking a lot of pain medication, please FREQUENTLY ASKED QUESTIONS ABOUT YOUR COLONOSCOPY(con't) call. Occasionally, stronger sedation will be needed, and the procedure may be rescheduled for another time using deep sedation by the Anesthesiology department. Q: Will I be totally asleep during my colonoscopy? A: You will be given medication (Versed and Fentanyl) to make you sleepy, and comfortable during the procedure. During the colonoscopy, you will be able to respond to the staff's directions. Q: I have two instruction for the prep, which one do I follow? A: Please follow [facility] Gastroenterology instructions, NOT the instructions from the pharmacy. Q: My prep doesn't taste good, what can I do make it better? A: You may flavor your prep with Crystal Light however, you will want to flavor individual glasses of prep; do not add the Crystal Light to the entire gallon in case you not like the flavoring or want more than one flavor. Q: What happens if I start drinking the liquid laxative, and I become nauseated or start vomiting? A: Tale a thirty minute break, and then try again. Drinking the liquid laxative more slowly may also help. If you continue to have problems, please call [phone] during office hours at 7am - 5pm.After hours please call [phone], and ask for the Gastroenterology Fellow instructional developer. Q: Do I REALLY need to drink 2 to 3 glasses of prep in the morning? A: Yes, you do need to drink 2 to 3 glasses of prep in the morning however, that is counted as partof your half gallon. Q: What does it mean to have clear liquid stools at the end of the colon preparation? A: Your bowel movements will never Be totally clear, because of bile and other digestive juices in your intestines. After your preparation, you should have yellow or greenish-yellow liquid that youare excreting. Q: I see yellow color in the toilet bowl, and a few flecks. What do I do? A: If you drank the entire mixture, and your last bowel movements were clear enough to see the bottom of the toilet, you should be fine. It is OK if you have some flecks of material. The yellow coloris a result of bile that normally colors the feces. FREQUENTLY ASKED QUESTIONS ABOUT YOUR COLONOSCOPY Q: I have a long drive, what should I do about drinking the prep the morning of? A: You do still need to drink the 2 to 3 glasses the morning prior to your procedure. We suggest that you get up early to drink the rest of your prep, or bring it with you and drink it 10 - 15 minutes from the hospital. Q: I don't feel well. Should I come in for my colonoscopy? A: If you have a minor cold without a fever, you should come in for your procedure. If you have a fever, are vomiting, or have a deep chest cough, please call [phone] to see if you need to reschedule your appointment. Q: I am having my menstrual period. Should I reschedule my colonoscopy appointment? A: No. Your menstrual period will not interfere with your physician's ability to complete your procedure. [facility] FAQ 11/02/2008 Igor Woodruff [facility] [facility] [address] Thank you for choosing [facility] for your medical needs. You are scheduledfor a colonoscopy on at the Endoscopy Center at [facility] (Level 4). Below you will find important information regarding your procedure. We appreciate your attention to this letter and the enclosed documents. Arrival Time: Estimated Procedure Time: Estimated Discharge Time: We try very hard to be on time, however sometimes there are emergencies. While this doesn't happen very often, you may have a wait time. We want each and every patient to get the excellent care our Endoscopy Center provides, therefore we thank you in advance for your patience if your procedure is unexpectedly delayed. Please bring someone to drive you home after the exam, and do not drive for 24 hours after your procedure. Due to the sedation given during the procedure, we cannot perform your procedure, unless youhave an adult who can pick you up in the Endoscopy Center after your procedure, and escort you home. In the interest of patient safety, there can be no exceptions to this. Please, no alternative forms of transportation like cabs or buses. Enclosed you will find: Information regarding your colonoscopy Your preparation prescription and instructions Frequently Asked Questions regarding colonoscopies You will get instructions from the pharmacy for your preparation: please follow the instructions that are enclosed - do not use the instructions from the pharmacy. If you have read the enclosed information thoroughly, and still have questions about what you have read, please call [phone] between the hours of 7:00am - 7:00pm Thursday - Thursday, and ask to speak to the Gastroenterology Fellow instructional developer. If you need to reschedule your procedure please call: [phone]. Thank you for choosing [facility]. Sincerely, The Gastroenterology and Hepatology Team and the Endoscopy Center at [facility] documented in this encounter Progress Notes * Ramonita Pandey MD - 11/08/2012 2:35 PM EDT PROBLEM LIST ??? Crohn's ileitis [...] Repeat metabolites 6TG 315, 6MMP 4217 ??? Abnormal liver function test ??? GERD (gastroesophageal reflux disease) Subjective: HPI Mr. Woodruff comes back to see me for the first time since December 2010. He is s/p ileocolonic resection in 10/29/10. He had 19.5 cm of ileum removed. 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 He continues to take azathioprine 100 mg. He has had trouble with leukopenia in the past that has limited his dosing. He stopped using cholestyramine months ago. When he has had stress with work this past summer, he has had cramping in the RUQ. It is somewhat transient. He has 3-5 loose, non-bloody bowel movements per day. There is no urgency for bowel movements or incontinence. Weight has been stable without nausea or vomiting. Review of Systems Constitutional: Negative for fever, fatigue and unexpected weight change. HENT: Negative for mouth sores. Eyes: Negative for pain and redness. Respiratory: Negative for cough and shortness of breath. Cardiovascular: Negative for chest pain and palpitations. Gastrointestinal: Negative for nausea, vomiting, abdominal pain, diarrhea, constipation, blood in stool and abdominal distention. Genitourinary: Positive for difficulty urinating. No perianal lesions, drainage, or pain. This has not been an issue in the past either. Poor urinary stream over the last 1-1.5 yrs. Seems to be getting worse. Musculoskeletal: Negative. Skin: Negative. Itchy raised lesion on the arms and hands. Had warts burned earlier this year at Dr. Gonsalez's office. Objective: Physical Exam Vitals reviewed. Constitutional: He appears well-nourished. No distress. HENT: Mouth/Throat: Oropharynx is clear and moist. No oropharyngeal exudate. Eyes: Conjunctivae normal are normal. Pupils are equal, round, and [...] alert. Skin: Skin is warm and dry. Rash noted. Non-tender slightly raised nodules on the R forearm. Slightly pearly and variegated appearance. Wt Readings from Last 3 Encounters: 11/08/12 101.152 kg (223 lb) 12/18/10 98.431 kg (217 lb) 10/29/10 100.6 kg (221 lb 12.5 oz) Labs reviewed from August - see scanned docs Assessment and Plan: Mr. Woodruff is doing well. However, he has been slightly more symptomatic. Recurrent leukopenia has limited our ability to escalate his AZA dose. We will recheck it today along with metabolite levels. Depending on the results, we will plan on optimizing the dose as much as possible and then restaging with colonoscopy in 3 months. If there is progression of disease, then we may need to consider changing therapies to an anti-TNF. Plan is outlined below. Regarding the worsening urinary stream (BPH?), I suggested that he follow-up with Dr. Gonsalez. We discussed the following recommendations that were printed out for the patient: 1. Check complete blood count, liver tests, and also metabolites of azathioprine. 2. Based on these results, we may want to increase your dose back up to 4 tablets per day. 3. Repeat colonoscopy in about 4 months after azathioprine dose is optimized. 4. Will let you know when to have labs rechecked locally - at least every 3 months. 5. Referral back to Dr. Foote for new lesions on the arms and treatment of hyperhydrosis for which he has seen him in the past. 6. Follow-up at the time of colonoscopy and in the office in 10 months or sooner as needed. Angelo Pandey MD Car Repairer Apprenticestock grader Section of Gastroenterology [place] [address] CC: JESUS GONSALEZ DO [address] [place] [id number] documented in this encounter Plan of Treatment Upcoming Encounters Date Type Department Care Team (Latest Contact Info) Description 04/01/2024 12:35 PM EST Hospital Encounter [place] [address] Apurva Vivas MD [facility] [place] [address] 04/01/2024 12:35 PM EST - 04/01/2024 2:17 PM EST Surgery [place] [address] Apurva Vivas MD [facility] [place] [address] ANORECTAL EXAM, REQUIRING ANESTHESIA, DIAGNOSTIC (WRVU 1.8) 04/26/2024 3:00 PM EST Office [place] [phone] Apurva Vivas MD [facility] [place] [address] Scheduled Procedures Name Priority Associated Diagnoses Date/Ti me ANORECTAL EXAM, REQUIRING ANESTHESIA, DIAGNOSTIC (WRVU 1.8) perianal crohns disease w/fistula 04/01/2024 12:35 PM EST SURGICAL TREATMENT OF ANAL FISTULA COMPLEX OR MULTIPLE W\WO SETON PLACEMENT (WRVU 6.39) perianal crohns disease w/fistula 04/01/2024 12:35 PM EST Scheduled Referrals Name Type Priority Associated Diagnoses Order Schedule Referral to Dermatology Outpatient Referral Routine Rash Ordered: 11/08/2012 documented as of this encounter Procedures Procedure Name Priority Date/Time Associated Diagnosis Comments DIFFERENTIAL, AUTOMATED Routine 11/08/2012 3:25 PM EDT THIOPURINE METABOLITES Routine 11/08/2012 3:25 PM EDT Crohn's ileitis CBC (WITH DIFF) Routine 11/08/2012 3:25 PM EDT Crohn's ileitis CRP, CARDIAC RISK (HS CRP) Routine 11/08/2012 3:25 PM EDT Crohn's ileitis HEPATIC FUNCTION PANEL Routine 11/08/2012 3:25 PM EDT Crohn's ileitis COLONOSCOPY Routine 11/08/2012 2:59 PM EDT Crohn's ileitis documented in this encounter Results * Differential, Automated (11/08/2012 3:25 PM EDT) Neutrophil % 63.9 34.0 - 71.0 % CERNER MILLENNIUM Neutrophil Absolute 2.84 1.50 - 6.30 x10(3)/mcL CERNER MILLENNIUM Lymph % 25.8 19.0 - 53.0 % CERNER MILLENNIUM Lymphocytes Abs 1.2 1.0 - 3.6 x10(3)/mcL CERNER MILLENNIUM Monocyte % 8.8 4.0 - 13.0 % CERNER MILLENNIUM Monocyte Abs 0.4 0.2 - 1.0 x10(3)/mcL CERNER MILLENNIUM Eos % 1.1 0.0 - 7.0 % CERNER MILLENNIUM Eosinophils Abs 0.0 0.0 - 0.5 x10(3)/mcL CERNER MILLENNIUM Basophil % 0.2 0.0 - 2.0 % CERNER MILLENNIUM Baso Absolute 0.0 0.0 - 0.2 x10(3)/mcL CERNER MILLENNIUM Immature Gran % 0.20 0.00 - 0.66 % CERNER MILLENNIUM Comment: Immature granulocytes(IG's)percentage and absolute count will include metamyelocytes, myelocytes, and promyelocytes. Blood smears from CBCs yielding IG's will be scanned manually for concordance. If this scan disagrees with the automated IG or if promyelocytes are noted, a manual differential will be performed. Immature Gran Absolute 0.01 0.00 - 0.05 x10(3)/mcL CERNER MILLENNIUM Blood specimen (specimen) 11/08/2012 3:25 PM EDT 11/08/2012 3:30 PM EDT L Timothy Pandey MD HEMATOLOGY ORDERABLE S JESENIA GOLDBERG * Thiopurine Metabolites (11/08/2012 3:25 PM EDT) Thiopurine Metabolites (PROMETHEUS) See Note CERNER MILLENNIUM Comment:Please see scanned r eport in Chart Review under the Non-DH Laboratory Heading. Blood specimen (specimen) 11/08/2012 3:25 PM EDT 11/08/2012 3:41 PM EDT Narrative Resulting Agency Comment Spec In Lab L Timothy Pandey MD LAB SEND OUT ORDERAB LES Performing Organization Address [facility] Phone Number CERMARVIN FRAGAMyColorScreenIUM * Hepatic Function Panel (11/08/2012 3:25 PM EDT) Protein, Total 7.0 6.4 - 8.3 gm/dL CERNER MILLENNIUM Albumin 4.4 3.2 - 5.2 gm/dL CERNER MILLENNIUM Aspartate Aminotransferase 25 0 - 39 unit/L CERNER MILLENNIUM Alanine Aminotransferase 32 0 - 55 unit/L CERNER MILLENNIUM Alkaline Phosphatase 62 40 - 120 unit/L CERNER MILLENNIUM Bilirubin, Total 0.7 0.2 - 1.3 mg/dL CERNER MILLENNIUM Bilirubin, Direct 0.1 0.0 - 0.3 mg/dL CERNER MILLENNIUM Blood specimen (specimen) 11/08/2012 3:25 PM EDT 11/08/2012 3:30 PM EDT Narrative Resulting Agency Comment Spec In Lab L Timothy Pandey MD CHEMISTRY ORDERABLES Performing Organization Address [facility] Phone Number CERMARVIN LUAIUM * High Sensitivity CRP (11/08/2012 3:25 PM EDT) C-Reactive Protein High Sensitivity 0.5 mg/L CERNER MILLENNIUM Comment: Interpretations: 1) For [...] and Cardiovascular Disease. ??Circulation 2003; 107:499-511 2. Romanker PM. ??Clinical applications of C-reactive protein for cardiovascular disease detection and prevention. ??Circulation 2003; 107:363-369 Blood specimen (specimen) 11/08/2012 3:25 PM EDT 11/08/2012 3:30 PM EDT Narrative Resulting Agency Comment Spec In Lab L Timothy Pandey MD CHEMISTRY ORDERABLES JESENIA LUAIUM * CBC (with Diff) (11/08/2012 3:25 PM EDT) White Blood Cell 4.4 4.0 - 10.0 x10(3)/mcL CERNER MILLENNIUM Red Blood Cell 5.14 4.63 - 6.08 x10(6)/mcL CERNER MILLENNIUM Hemoglobin 15.5 13.7 - 17.5 gm/dL CERNER MILLENNIUM Hematocrit 43.6 40.0 - 51.0 % CERNER MILLENNIUM Mean Cell Volume 84.8 79.0 - 92.0 fL CERNER MILLENNIUM Mean Cell Hemoglobin 30.2 25.6 - 32.2 pg CERNER MILLENNIUM Mean Cell Hemoglobin Concentration 35.6 32.0 - 36.5 gm/dL CERNER MILLENNIUM Platelet 270 145 - 370 x10(3)/mcL CERNER MILLENNIUM RDW Standard Deviation 37.7 35.0 - 46.0 fL CERNER MILLENNIUM RDW coefficient of variation 12.4 10.9 - 14.4 % CERNER MILLENNIUM Mean Platelet Volume 10.1 9.0 - 12.0 fL CERNER MILLENNIUM Blood specimen (specimen) 11/08/2012 3:25 PM EDT 11/08/2012 3:30 PM EDT Narrative Resulting Agency Comment Spec In Lab L Timothy Pandey MD HEMATOLOGY ORDERABLE S JESENIA GOLDBERG documented in this encounter Visit Diagnoses Diagnosis Crohn's ileitis- Primary Regional enteritis of small intestine Rash Rash and other nonspecific skin eruption documented in this encounter Care Teams Wooden Frame Builder Relationship Specialty Start Date End Date Jesus Gonsalez DO [address] [facility] [address] [place] [address] PCP - General 05/01/11 documented as of this encounter
--- OUTSIDE RECORDS SUMMARY | 2024-03-10 02:02 | XMS_ITS | Encounter Summary ---
Author Organization [facility] [place] [address] Care Team Providers Care Non Linear Editor Name Role Phone Irwin Gonsalez DO Primary Care Provider Encounter Details Date Type Department Care Team (Late st Contact Info) Description 04/09/2012 External [place] [phone] Ramonita Pandey MD [facility] [place] [address] Social History Tobacco Use Types Packs/Day Years [...] PM EST Hospital Encounter [place] [phone] Apurva Vivas MD [facility] [place] [address] 04/01/2024 12:35 PM EST - 04/01/2024 2:17 PM EST [place] [address] Apurva Vivas MD [facility] [place] [address] ANORECTAL EXAM, REQUIRING ANESTHESIA, DIAGNOSTIC (WRVU 1.8) 04/26/2024 3:00 PM EST Office [place] [phone] Apurva Viavs MD [facility] [place] [address] Scheduled Procedures Name Priority Associated Diagnoses Date/Ti me ANORECTAL EXAM, REQUIRING ANESTHESIA, DIAGNOSTIC (WRVU 1.8) perianal crohns disease w/fistula 04/01/2024 12:35 PM EST SURGICAL TREATMENT OF ANAL FISTULA COMPLEX OR MULTIPLE W\WO SETON PLACEMENT (WRVU 6.39) perianal crohns disease w/fistula 04/01/2024 12:35 PM EST documented as of this encounter Procedures Procedure Name Priority Date/Time Associated Diagnosis Comments LAB SCAN Routine 02/15/2012 documented in this encounter Results * Scan Doc: Lab (02/15/2012) 02/15/2012 L Timothy Pandey MD MEDIA MGR SCAN EXT O RDR/RSLT documented in this encounter Visit Diagnoses Not on filedocumented in this encounter Care Teams Non Linear Editor Relationship Specialty Start Date End Date Irwin Gonsalez DO [address] [place] [address] [place] [address] PCP - General 05/01/11 documented as of this encounter
--- OUTSIDE RECORDS SUMMARY | 2024-03-10 02:02 | XMS_ITS | Encounter Summary ---
[place] [address] Care Team Providers Care Education Professor Name Role Phone Irwin Gonsalez DO Primary Care Provider [phone] Reason for Visit * Reason Onset Date Comments Other 11/25/2011 lab reminder Encounter Details Date Type Department Care Team (Late st Contact Info) Description 11/25/2011 Telephone [place] [address] Agueda Trujillo RN Other (lab reminder) Social History Tobacco Use Types Packs/Day Years [...] encounter Miscellaneous Notes * Telephone Encounter - Agueda Trujillo RN - 11/25/2011 1:46 PM EDT Per note from 10/28/11 patient was to restart azathioprine at 100 mg a day and have labs done in 2 weeks. No labs since September per [facility] lab. Called to speak with patient, he is not available. Spoke withhis and asked her to remind him to have labs done. documented in this encounter Plan of Treatment Upcoming Encounters Date Type Department Care Team (Latest Contact Info) Description 04/01/2024 12:35 PM EST Hospital Encounter [place] [phone] Apurva Vivas MD [facility] [place] [address] 04/01/2024 12:35 PM EST - 04/01/2024 2:17 PM EST Surgery [place] [phone] Apurva Vivas MD [facility] [place] [address] ANORECTAL EXAM, REQUIRING ANESTHESIA, DIAGNOSTIC (WRVU 1.8) 04/26/2024 3:00 PM EST Office [place] [phone] Apurva Vivas MD [facility] [place] [address] Scheduled Procedures Name Priority Associated Diagnoses Date/Ti me ANORECTAL EXAM, REQUIRING ANESTHESIA, DIAGNOSTIC (WRVU 1.8) perianal crohns disease w/fistula 04/01/2024 12:35 PM EST SURGICAL TREATMENT OF ANAL FISTULA COMPLEX OR MULTIPLE W\WO SETON PLACEMENT (WRVU 6.39) perianal crohns disease w/fistula 04/01/2024 12:35 PM EST documented as of this encounter Visit Diagnoses Not on filedocumented in this encounter Care Teams Education Professor Relationship Specialty Start Date End Date Irwin Gonsalez DO [address] [place] [address] [place] [address] PCP - General 05/01/11 documented as of this encounter
--- OUTSIDE RECORDS SUMMARY | 2024-03-10 02:02 | XMS_ITS | Encounter Summary ---
Author Organization [facility] Address [facility] [place] [address] Care Team Providers Care Housekeeping Assistant Name Role Phone Irwin Gonsalez DO Primary Care Provider Reason for Visit * Reason Comments Excessive Sweating Encounter Details Date Type Department Care Team (Late st Contact Info) Description 12/19/2013 1:30 PM EDT Follow-Up Dermatology at [facility] [address] [place] [address] Bharathi Foote MD [facility] [address] [place] [address] Hyperhidrosis of axilla (Primary Dx); Verruca vulgaris Discharge Disposition: Home Social History Tobacco Use [...] of this encounter Progress Notes * Bharathi Foote MD - 12/19/2013 1:33 PM EDT PROBLEM: 1. Axillary Hyperhidrosis 2. Here for treatment options including Botox injections SUBJECT: 38 y.o. year old male. Here for discussion of treatment options for hyperhidrosis. Specifically here to discuss Botox, since Drysol and antipersperant failed. Last treatment 02/25 Discussed Miradry. Maybe in the future. Sympathectomy not resonable in my opinion. Botox [...] bilaterally. Normal appearing skin with increased moisture/sweating. And right forearm DIAGNOSIS: 1. Axillary Hyperhidrosis 2. Warts (Verruca vulgaris) noted on right forearm x 1 Discussion: 1. Spent over half of this visit discussing hyperhidrosis treatment options, specifically Botox, expectations, length of action, re-treatment, cost, insurance approval needed and answered all questions. 2. We agreed to proceed. 3. We expect this to inhibit or decrease sweating for 6-9 months. 4. FU as required. May need to get another approval at that time. 5. Discussed Cat dry procedure with patient as a alternative procedure Quoted $1500 out of pocket,aware may require a second treatment Quoted $1000 for second treatment. Procedure: 1. Re-discussed procedure, answered all questions [...] axillae, 100 units total. 4. No complications. 5 LN@ x 2 to Wart (Verruca vulgaris) x 1 Follow up: 1. 6 months sooner if needed I am documenting this encounter acting as the scribe for and in the presence of GANESH Duncan LPN I performed the above scribed service and agree with the accuracy of the documentation in this encounter, MD Ria Mendez M.D. Section of Dermatology documented in this encounter Plan of Treatment Upcoming Encounters Date Type Department Care Team (Latest Contact Info) Description 04/01/2024 12:35 PM EST Hospital Encounter [place] [address] Apurva Vivas MD [facility] [place] [address] 04/01/2024 12:35 PM EST - 04/01/2024 2:17 PM EST Surgery [place] [phone] Apurva Vivas MD [facility] [place] [address] ANORECTAL EXAM, REQUIRING ANESTHESIA, DIAGNOSTIC (WRVU 1.8) 04/26/2024 3:00 PM EST Office Visit [place] [phone] Apurva Vivas MD [facility] [place] [address] Scheduled Procedures Name Priority Associated Diagnoses Date/Ti me ANORECTAL EXAM, REQUIRING ANESTHESIA, DIAGNOSTIC (WRVU 1.8) perianal crohns disease w/fistula 04/01/2024 12:35 PM EST SURGICAL TREATMENT OF ANAL FISTULA COMPLEX OR MULTIPLE W\WO SETON PLACEMENT (WRVU 6.39) perianal crohns disease w/fistula 04/01/2024 12:35 PM EST documented as of this encounter Visit Diagnoses Diagnosis Hyperhidrosis of axilla- Primary Primary focal hyperhidrosis Verruca vulgaris Viral warts, unspecified documented in this encounter Administered Medications Inactive Administered Medications - up to 3 most recent administrations Medication Order MAR Action Action Date Dose Rate Site botulinum toxin type A (BOTOX) injection 100 Units 100 Units, Intramuscular, ONCE, 1 dose, On 12/19/13 at 1400, Routine Given 12/19/2013 1:42 PM EDT 100 Units 20-Other (document in comment section) documented in this encounter Care Teams Housekeeping Assistant Relationship Specialty Start Date End Date Irwin Gonsalez DO [address] [place] [address] [place] [address] PCP - General 05/01/11 documented as of this encounter
--- OUTSIDE RECORDS SUMMARY | 2024-03-10 02:02 | XMS_ITS | Encounter Summary ---
[place] [address] Care Team Providers Care Immigration Judge Name Role Phone Irwin Gonsalez DO Primary Care Provider [phone] Encounter Details Date Type Department Care Team (Late st Contact Info) Description 06/19/2011 Telephone [place] [phone] Swetha Berry, RN Social History Tobacco Use [...] Telephone Encounter - Swetha Le RN - 06/19/2011 10:[address] thomas: Message Davi Ricardo I left a msg on Mr. Gan's home phone this weekend. We had him hold AZA 250 PO qd due to low WBC. Labschecked 3/ showed normalization of the WBC. If he has not already done so, he should restart aza at 200 mg PO QD (LOWER DOSE) and have labs rechecked in 2 weeks. Would you please try to make sure hehas that message. Thank you!! C Message left asking pt to call me back documented in this encounter Plan of Treatment Upcoming Encounters Date Type Department Care Team (Latest Contact Info) Description 04/01/2024 12:35 PM EST Hospital Encounter [place] [phone] Apurva Vivas MD [facility] [place] [address] 04/01/2024 12:35 PM EST - 04/01/2024 2:17 PM EST [place] [phone] Apurva Vivas MD [facility] [place] [address] ANORECTAL EXAM, REQUIRING ANESTHESIA, DIAGNOSTIC (WRVU 1.8) 04/26/2024 3:00 PM EST Office [place] [phone] Apurva Vivas MD [facility] [place] [address] Scheduled Procedures Name Priority Associated Diagnoses Date/Ti me ANORECTAL EXAM, REQUIRING ANESTHESIA, DIAGNOSTIC (WRVU 1.8) perianal crohns disease w/fistula 04/01/2024 12:35 PM EST SURGICAL TREATMENT OF ANAL FISTULA COMPLEX OR MULTIPLE W\WO SETON PLACEMENT (WRVU 6.39) perianal crohns disease w/fistula 04/01/2024 12:35 PM EST documented as of this encounter Visit Diagnoses Not on filedocumented in this encounter Care Teams Immigration Judge Relationship Specialty Start Date End Date Irwin Gonsalez DO [address] [place] [address] [address] [place] [address] [place] [address] PCP - General 05/01/11 documented as of this encounter
--- OUTSIDE RECORDS SUMMARY | 2024-03-10 02:02 | XMS_ITS | Encounter Summary ---
[place] [address] Care Team Providers Care Electroless Plater Name Role Phone Irwin Gonsalez DO Primary Care Provider Reason for Visit * Reason Onset Date Comments Other 10/28/2011 Encounter Details Date Type Department Care Team (Late st Contact Info) Description 10/28/2011 Telephone [place] [address] Agueda Trujillo, RN Other Social History Tobacco Use Types Packs/Day [...] Telephone Encounter - Agueda Trujillo RN - 10/28/2011 4:29 PM EDT Labs from [facility] 10/05/11 show WBC of 4.03, LFT's wnl. Per Dr. Pandey's note on 09/22/11 Message Davi Cleary, Would you please call Mr. Woodruff. Labs from 09/06 still show low WBC at 3.87. I think he is still holding the AZA . If so, please have him recheck labs. If the WBC comes up >4, then he can restart AZA at 100 mg per day and have labs checked yet again 2 weeks later. If he is TAKING AZA. Please have him hold it for 2 weeks, and then have labs rechecked. Thanks, Aguirre Call Igor back and reviewed lab results. He will restart the azathioprine at 100 mg a day (2-50 mg tabs) and have labs done in 2 weeks (around 11/11/11) He agrees with this plan. * Telephone Encounter - Agueda Trujillo RN - 10/28/2011 3:42 PM EDT Patient calling to review labs from 10/04 done at [facility]. They are not scanned or in our lab folder. Advised him that I would call the lab to get a copy of the results and call him back. Called [facility]. Lab results being faxed documented in this encounter Plan of Treatment Upcoming Encounters Date Type Department Care Team (Latest Contact Info) Description 04/01/2024 12:35 PM EST Hospital Encounter [place] [address] Apurva Vivas MD [facility] [place] [address] 04/01/2024 12:35 PM EST - 04/01/2024 2:17 PM EST Surgery [place] [address] Apurva Vivas MD [facility] [place] [address] ANORECTAL EXAM, REQUIRING ANESTHESIA, DIAGNOSTIC (WRVU 1.8) 04/26/2024 3:00 PM EST Office Visit [place] [phone] Apurva Vivas MD [facility] [place] [address] Scheduled Procedures Name Priority Associated Diagnoses Date/Ti me ANORECTAL EXAM, REQUIRING ANESTHESIA, DIAGNOSTIC (WRVU 1.8) perianal crohns disease w/fistula 04/01/2024 12:35 PM EST SURGICAL TREATMENT OF ANAL FISTULA COMPLEX OR MULTIPLE W\WO SETON PLACEMENT (WRVU 6.39) perianal crohns disease w/fistula 04/01/2024 12:35 PM EST documented as of this encounter Visit Diagnoses Not on filedocumented in this encounter Care Teams Electroless Plater Relationship Specialty Start Date End Date Irwin Gonsalez DO [address] [place] [address] [facility] 1 [place] [address] PCP - General 05/01/11 documented as of this encounter
--- OUTSIDE RECORDS SUMMARY | 2024-03-10 02:02 | XMS_ITS | Encounter Summary ---
[place] [address] Care Team Providers Care Color Maker Dyer Name Role Phone Irwin Gonsalez DO Primary Care Provider Encounter Details Date Type Department Care Team (Late st Contact Info) Description 07/03/2011 Telephone [place] [phone] Swetha Berry, RN Social History Tobacco Use [...] Telephone Encounter - Swetha Le RN - 07/03/2011 11:12 AM EDT Message left again for pt: [...] make sure hehas that message. Thank you!! Elvia Billingsley called back confirming that he has been receiving my messages. He is back to 200mg of Aza and feeling well. He will have labs drawn this weekend. Will update Dr thomas documented in this encounter Plan of Treatment Upcoming Encounters Date Type Department Care Team (Latest Contact Info) Description 04/01/2024 12:35 PM EST Hospital Encounter [place] [address] Apurva Vivas MD [facility] [place] [address] 04/01/2024 12:35 PM EST - 04/01/2024 2:17 PM EST Surgery [place] [phone] Apurva Vivas MD [facility] [place] [address] ANORECTAL EXAM, REQUIRING ANESTHESIA, DIAGNOSTIC (WRVU 1.8) 04/26/2024 3:00 PM EST Office [place] [address] Apurva Vivas MD [facility] [place] [address] Scheduled Procedures Name Priority Associated Diagnoses Date/Ti me ANORECTAL EXAM, REQUIRING ANESTHESIA, DIAGNOSTIC (WRVU 1.8) perianal crohns disease w/fistula 04/01/2024 12:35 PM EST SURGICAL TREATMENT OF ANAL FISTULA COMPLEX OR MULTIPLE W\WO SETON PLACEMENT (WRVU 6.39) perianal crohns disease w/fistula 04/01/2024 12:35 PM EST documented as of this encounter Visit Diagnoses Not on filedocumented in this encounter Care Teams Color Maker Dyer Relationship Specialty Start Date End Date Irwin Gonsalez DO [address] [place] [address] [place] [address] PCP - General 05/01/11 documented as of this encounter
--- OUTSIDE RECORDS SUMMARY | 2024-03-10 02:02 | XMS_ITS | Encounter Summary ---
[place] [address] Care Team Providers Care Manager Distribution Center Name Role Phone Irwin Gonsalez DO Primary Care Provider [phone] Reason for Visit * Reason Onset Date Comments Other 09/22/2011 Encounter Details Date Type Department Care Team (Late st Contact Info) Description 09/22/2011 Telephone [place] [address] Agueda Trujillo, RN Other Social [...] Telephone Encounter - Agueda Trujillo RN - 09/23/2011 1:47 PM EDT Called and spoke with Igor. He is still holding the azathioprine. Advised to have labs done so wecan recheck his WBC. He plans to have labs done this weekend in [facility]. Advised to continue to hold azathioprine until we discuss results with him. Asked him to call if he has not heard from us by Thursday to discuss results. He agrees with this plan. * Telephone Encounter - Agueda Trujillo RN - 09/22/2011 11:40 AM EDT Message Davi Cleary, Would you please call [...] and then have labs rechecked. Thanks, Aguirre Called patient. No answer at home or on mobile. Left a message on his home number asking him to call to discuss labs and medications. Will await call back. documented in this encounter Plan of Treatment Upcoming Encounters Date Type Department Care Team (Latest Contact Info) Description 04/01/2024 12:35 PM EST Hospital Encounter [place] [address] Apurva Vivas MD [facility] [place] [address] 04/01/2024 12:35 PM EST - 04/01/2024 2:17 PM EST [place] [address] Apurva Vivas MD [facility] [place] [address] ANORECTAL EXAM, REQUIRING ANESTHESIA, DIAGNOSTIC (WRVU 1.8) 04/26/2024 3:00 PM EST Office [place] [address] Apurva Vivas MD [facility] [place] [address] Scheduled Procedures Name Priority Associated Diagnoses Date/Ti me ANORECTAL EXAM, REQUIRING ANESTHESIA, DIAGNOSTIC (WRVU 1.8) perianal crohns disease w/fistula 04/01/2024 12:35 PM EST SURGICAL TREATMENT OF ANAL FISTULA COMPLEX OR MULTIPLE W\WO SETON PLACEMENT (WRVU 6.39) perianal crohns disease w/fistula 04/01/2024 12:35 PM EST documented as of this encounter Visit Diagnoses Not on filedocumented in this encounter Care Teams Manager Distribution Center Relationship Specialty Start Date End Date Irwin Gonsalez DO [address] [place] [address] [address] [place] [address] PCP - General 05/01/11 documented as of this encounter
--- OUTSIDE RECORDS SUMMARY | 2024-03-10 02:02 | XMS_ITS | Encounter Summary ---
Author Organization [facility] [place] [address] Care Team Providers Care Aws Software Development Engineer Name Role Phone Irwin Gonsalez DO Primary Care Provider Encounter Details Date Type Department Care Team (Late st Contact Info) Description 11/16/2012 Orders [place] [phone] Shannan Barnard, RN Crohn's ileitis (Primary Dx) Social History Tobacco Use Types [...] PM EST Hospital Encounter [place] [phone] Apurva Vivas MD [facility] [place] [address] 04/01/2024 12:35 PM EST - 04/01/2024 2:17 PM EST Surgery [place] [address] Apurva Vivas MD [facility] [address] ANORECTAL EXAM, REQUIRING ANESTHESIA, DIAGNOSTIC (WRVU 1.8) 04/26/2024 3:00 PM EST Office [place] [address] Apurva Vivas MD [facility] [address] Scheduled Procedures Name Priority Associated Diagnoses Date/Ti me ANORECTAL EXAM, REQUIRING ANESTHESIA, DIAGNOSTIC (WRVU 1.8) perianal crohns disease w/fistula 04/01/2024 12:35 PM EST SURGICAL TREATMENT OF ANAL FISTULA COMPLEX OR MULTIPLE W\WO SETON PLACEMENT (WRVU 6.39) perianal crohns disease w/fistula 04/01/2024 12:35 PM EST documented as of this encounter Visit Diagnoses Diagnosis Crohn's ileitis- Primary Regional enteritis of small intestine documented in this encounter Care Teams Aws Software Development Engineer Relationship Specialty Start Date End Date Irwin Gonsalez DO [address] [place] [address] PCP - General 05/01/11 documented as of this encounter
--- OUTSIDE RECORDS SUMMARY | 2024-03-10 02:02 | XMS_ITS | Encounter Summary ---
Author Organization [facility] [place] [address] Care Team Providers Care Plunger Shovel Operator Name Role Phone Irwin Gonsalez DO Primary Care Provider [phone] Reason for Visit * Reason Comments Medication Refill Encounter Details Date Type Department Care Team (Late st Contact Info) Description 06/09/2014 Refill Gastroenter[place] [address] Ramonita Pandey MD [facility] [place] [address] Social History Tobacco Use Types Packs/Day Years [...] EST Hospital Encounter [place] [phone] Apurva Vivas MD [facility] [place] [address] 04/01/2024 12:35 PM EST - 04/01/2024 2:17 PM EST Surgery [place] [phone] Apurva Vivas MD [facility] [place] [address] ANORECTAL EXAM, REQUIRING ANESTHESIA, DIAGNOSTIC (WRVU 1.8) 04/26/2024 3:00 PM EST Office Visit General [place] [phone] Apurva Vivas MD [facility] [place] [address] Scheduled Procedures Name Priority Associated Diagnoses Date/Ti me ANORECTAL EXAM, REQUIRING ANESTHESIA, DIAGNOSTIC (WRVU 1.8) perianal crohns disease w/fistula 04/01/2024 12:35 PM EST SURGICAL TREATMENT OF ANAL FISTULA COMPLEX OR MULTIPLE W\WO SETON PLACEMENT (WRVU 6.39) perianal crohns disease w/fistula 04/01/2024 12:35 PM EST documented as of this encounter Visit Diagnoses Not on filedocumented in this encounter Care Teams Plunger Shovel Operator Relationship Specialty Start Date End Date Irwin Gonsalez DO [address] [place] [address] PCP - General 05/01/11 documented as of this encounter
--- OUTSIDE RECORDS SUMMARY | 2024-03-10 02:02 | XMS_ITS | Encounter Summary ---
Author Organization [facility] [place] [address] Care Team Providers Care Bodywork Therapist Name Role Phone Irwin Gonsalez DO Primary Care Provider Encounter Details Date Type Department Care Team (Latest Contact Info) Description 02/25/2013 8:02 AM EST - 02/25/2013 11:05 AM EST Hospital Encounter [place] [address] Ramonita Pandey MD [facility] [place] [address] Discharge Disposition: Home Social History Tobacco Use [...] Sign Reading Time Taken Comments Blood Pressure 106/59 02/25/2013 9:43 AM EST Pulse 80 02/25/2013 9:43 AM EST Temperature 36.6 ??C (97.9 ??F) 02/25/2013 8:26 AM ES T Respiratory Rate 18 02/25/2013 9:43 AM EST Oxygen Saturation 96% 02/25/2013 9:43 AM EST Inhaled Oxygen Concentration - - Weight - - Height - - Body Mass Index - - documented in this encounter Discharge Instructions * Discharge Instructions* Dennis Rios, RN - 02/25/2013 9:47 AM EST Colonoscopy What to expect after the [...] gas producing foods for the next few days. ?? Be gentle with what you choose to start eating. ?? Drink plenty of fluids ( unless your doctor has told you not to). IV SITE-- slight redness, or tenderness is normal. You can use warm compresses if you become concerned. If the tenderness +/or redness increases or foul drainage and a red streak occurs, please contact your primary doctor immediately. When shoud you call for help? Call 911 anytime you think you may need emergency care. For example: If you pass out ( loss of consciousness) If you pass maroon or bloody stools If you have severe belly pain Call your doctor now or seek immediate medical care: If your stools are black and tarlike [...] how often you need to be checked. If you have questions or concerns, you can call us: Thursday-Thursday [facility] [phone] 8a-5p Same Day Endo [phone] 7a-8p Otherwise contact [phone] and ask to speak to the insole rounder section repairer. Follow up care is a garcia part of your treatment and safety. Be sure to make and go to all appointments, and call your doctor if you are having problems. Discharge instructions reviewed with patient who expresses understanding. documented in this encounter Medications at Time of Discharge Medication Sig Dispensed Refills Start Date End Date multivitamin (THERAGRAN) Tablet Take 1 tablet by mouth daily. esomeprazole (NEXIUM) 20 mg capsule Take 20 mg by mouth every morning (before breakfast). azaTHIOprine (IMURAN) 50 mg tablet Take 100 mg by mouth daily. 08/31/2013 documented as of this encounter H&P Notes * Ramonita Pandey MD - 02/25/2013 9:03 AM EST Gastroenterology and Hepatology Pre-Procedure History and Physical Exam Procedure: Colonoscopy: Indication: Crohn's disease Patient Active Problem List Diagnosis Code ??? Crohn's ileitis 555.0 ??? Abnormal liver function test 790.6 ??? GERD (gastroesophageal reflux disease) 530.81 EXAM: HEENT: Airway examined, oropharynx clear LUNGS: Clear to auscultation HEART: Regular rate and rhythm, normal S1, S2 ABDOMEN: Normal bowel sounds, soft, non tender, non distended, A/P Proceed with the planned endoscopic procedure. Risks and benefits of the procedure explained to the patient. Consent signed. documented in this encounter Miscellaneous Notes * Miscellaneous - Provider, Scanning - 02/25/2013 10:15 AM EST * Op Note - Ramonita Pandey MD - 02/25/2013 9:38 AM EST [facility] Operative Note Patient Name: Igor Woodruff : [id number] MR#: [id number] Case Date: 02/25/2013 Surgeon: Surgeon(s) and Role: * Ramonita Pandey MD - Primary Preoperative diagnosis: Crohn's disease Postoperative diagnosis: * No post-op diagnosis entered * Procedure(s): COLONOSCOPY, DIAGNOSTIC IV Conscious Sedation Please see the Provation procedure report in the Procedures tab in eDH. documented in this encounter Plan of Treatment Upcoming Encounters Date Type Department Care Team (Latest Contact Info) Description 04/01/2024 12:35 PM EST Hospital Encounter [place] [phone] Apurva Vivas MD [facility] [place] [address] 04/01/2024 12:35 PM EST - 04/01/2024 2:17 PM EST Surgery [place] [address] Apurva Vivas MD [facility] [place] [address] ANORECTAL EXAM, REQUIRING ANESTHESIA, DIAGNOSTIC (WRVU 1.8) 04/26/2024 3:00 PM EST Office [place] [address] Apurva Vivas MD [facility] [place] [address] Scheduled Procedures Name Priority Associated Diagnoses Date/Ti me ANORECTAL EXAM, REQUIRING ANESTHESIA, DIAGNOSTIC (WRVU 1.8) perianal crohns disease w/fistula 04/01/2024 12:35 PM EST SURGICAL TREATMENT OF ANAL FISTULA COMPLEX OR MULTIPLE W\WO SETON PLACEMENT (WRVU 6.39) perianal crohns disease w/fistula 04/01/2024 12:35 PM EST documented as of this encounter Procedures Procedure Name Priority Date/Time Associated Diagnosis Comments COLONOSCOPY, DIAGNOSTIC (WRVU 3.26) 02/25/2013 9:14 AM EST Crohn's ileitis COLONOSCOPY Routine 02/25/2013 7:15 AM EST documented in this encounter Results * COLONOSCOPY (02/25/2013 7:15 AM EST) COLONOSCOPY [facility] Endoscopy Patient Name: Igor Woodruff ? Procedure Date: 02/25/2013 7:15 AM ? N: [id number] ? Date of : 1975 ? Age: 38 ? Order #: [id number] ? Procedure: ? Colonoscopy Indications: ? Follow-up of Crohn's disease of the ? small bowel Providers: ? Angelo Pandey MD, Lucero Montague, ? RN, Ivon Montenegro, Online Marketing Analyst Referring MD: ?Irwin Gonsalez, DO Medicines: ? Fentanyl 200 micrograms IV, Midazolam ? 4 mg IV Complications: ? No immediate complications. Procedure: [...] and under direct visualization, ? advanced to 8 cm into the ileum. ? Careful inspection was made as the ? colonoscope was withdrawn. The ? colonoscopy was performed without ? difficulty. The patient tolerated the ? procedure well. The quality of the ? bowel preparation was excellent. ? Findings: ? External hemorrhoids were found, and [...] normal without any ? recurrent Crohn's disease.. ? Impression: ?- External hemorrhoids. ? - Patent end-to-side ileo-colonic ? anastomosis. ? - The examined portion of the ileum ? was normal. Recommendation: ?- Continue azathioprine. ? - Please have labs (CBC, LFTS, CRP) ? checked this weekend. ? __ L. Timothy Pandey MD 02/25/2013 9:45 AM Number of Addenda: 0 Note Initiated On: 02/25/2013 7:15 AM PROVATION 02/25/2013 7:15 AM EST Irwin Gonsalez DO GENERAL SURGICAL ORD ERABLES Performing Organization Address City/State/[facility] Co de Phone Number PROVATION documented in this encounter Visit Diagnoses Not on filedocumented in this encounter Active and Recently Administered Medications Times are shown in EST. PRN Medication Order 02/23/2013 02/24/2013 02/25/2013 fentaNYL 50mcg/mL injection (CANCELED) ONCE PRN, Starting on Thu02/25/13 at 0917, Until Thu02/25/13 at 1307, Pain, Intra-Operative (Intra-Procedure), Routine 0917 (Given - Provid er: Lucero Montague RN)09 (Given - Provider: Lucero Montague RN)09 (Given - Provider: Lucero Montague RN) midazolam (VERSED) injection (CANCELED) ONCE PRN, Starting on Thu02/25/13 at 0917, Until Thu02/25/13 at 1307, Sleep, Intra-Operative (Intra-Procedure), Routine 0917 (Given - Provid er: Lucero Montague RN)0920 (Given - Provider: Lucero Montague RN)09 (Given - Provider: Lucero Montague RN) documented in this encounter Care Teams Bodywork Therapist Relationship Specialty Start Date End Date Irwin Gonsalez DO [address] [place] [address] [address] [place] [address] PCP - General 05/01/11 documented as of this encounter
--- OUTSIDE RECORDS SUMMARY | 2024-03-10 02:02 | XMS_ITS | Encounter Summary ---
Author Organization [facility] [address] Care Team Providers Care Advertising Copywriter Name Role Phone Irwin Gonsalez DO Primary Care Provider [phone] Reason for Visit * Reason Onset Date Comments Medication Refill 07/14/2011 Encounter Details Date Type Department Care Team (Late st Contact Info) Description 07/14/2011 Refill [place] [phone] Ramonita Pandey MD [facility] [place] [address] IBD (inflammatory bowel disease) Social History Tobacco Use Types Packs/Day Years [...] PM EST Hospital Encounter [place] [phone] Apurva Vivas MD [facility] [place] [address] 04/01/2024 12:35 PM EST - 04/01/2024 2:17 PM EST Surgery [place] [address] Apurva Vivas MD [facility] [place] [address] ANORECTAL EXAM, REQUIRING ANESTHESIA, DIAGNOSTIC (WRVU 1.8) 04/26/2024 3:00 PM EST Office [place] [phone] Apurva Vivas MD [facility] [place] [address] Scheduled Procedures Name Priority Associated Diagnoses Date/Ti me ANORECTAL EXAM, REQUIRING ANESTHESIA, DIAGNOSTIC (WRVU 1.8) perianal crohns disease w/fistula 04/01/2024 12:35 PM EST SURGICAL TREATMENT OF ANAL FISTULA COMPLEX OR MULTIPLE W\WO SETON PLACEMENT (WRVU 6.39) perianal crohns disease w/fistula 04/01/2024 12:35 PM EST documented as of this encounter Visit Diagnoses Diagnosis IBD (inflammatory bowel disease) Other and unspecified noninfectious gastroenteritis and colitis documented in this encounter Care Teams Advertising Copywriter Relationship Specialty Start Date End Date Irwin Gonsalez DO [address] [facility] [address] [place] [address] PCP - General 05/01/11 documented as of this encounter
--- OUTSIDE RECORDS SUMMARY | 2024-03-10 02:02 | XMS_ITS | Encounter Summary ---
Author Organization [facility] [place] [address] Care Team Providers Care Title Insurance Agent Name Role Phone Irwin Gonsalez DO Primary Care Provider [phone] Reason for Visit * Reason Comments Medication Refill Encounter Details Date Type Department Care Team (Late st Contact Info) Description 10/18/2012 Ref[place] [address] Ramonita Pandey MD [facility] [place] [address] Social History Tobacco Use Types Packs/Day Years [...] PM EST Hospital Encounter [place] [phone] Apurva Vivas MD [facility] [place] [address] 04/01/2024 12:35 PM EST - 04/01/2024 2:17 PM EST Surgery [place] [address] Apurva Vivas MD [facility] [place] [address] ANORECTAL EXAM, REQUIRING ANESTHESIA, DIAGNOSTIC (WRVU 1.8) 04/26/2024 3:00 PM EST Office [place] [phone] Apurva Vivas MD [facility] [place] [address] Scheduled Procedures Name Priority Associated Diagnoses Date/Ti me ANORECTAL EXAM, REQUIRING ANESTHESIA, DIAGNOSTIC (WRVU 1.8) perianal crohns disease w/fistula 04/01/2024 12:35 PM EST SURGICAL TREATMENT OF ANAL FISTULA COMPLEX OR MULTIPLE W\WO SETON PLACEMENT (WRVU 6.39) perianal crohns disease w/fistula 04/01/2024 12:35 PM EST documented as of this encounter Visit Diagnoses Not on filedocumented in this encounter Care Teams Title Insurance Agent Relationship Specialty Start Date End Date Irwin Gonsalez DO [address] [place] [address] PCP - General 05/01/11 documented as of this encounter
--- OUTSIDE RECORDS SUMMARY | 2024-03-10 02:02 | XMS_ITS | Encounter Summary ---
Author Organization [facility] Address [facility] [place] [address] Care Team Providers Care Dress Fitter Name Role Phone Jesus Gonsalez DO Primary Care Provider [phone] Encounter Details Date Type Department Care Team (Late st Contact Info) Description 02/14/2014 3:30 PM EST [place] [phone] Ramonita Pandey MD [facility] [place] [address] Crohn's disease, unspecified complication; Crohn's disease, without complications; Abnormal LFTs Discharge Disposition: Home Social History Tobacco Use [...] Sign Reading Time Taken Comments Blood Pressure 147/89 02/14/2014 3:53 PM EST Pulse 83 02/14/2014 3:53 PM EST Temperature - - Respiratory Rate - - Oxygen Saturation - - Inhaled Oxygen Concentration - - Weight 107 kg (235 lb 14.4 oz) 02/14/2014 3:53 P M EST Height 185.4 cm (6' 1) 02/14/2014 3:53 PM EST Body Mass Index 31.12 02/14/2014 3:53 PM EST documented in this encounter Patient Instructions * Patient Instructions* Ramonita Pandey MD - 02/14/2014 4:29 PM EST # Continue the azathioprine as you have been. # Please have your labs (complete blood count, liver tests, and C-reactive protein) checked once every 3-4 months. # Recommended annual flu shot. # The nature of sun-induced photo-aging and [...] with me in the office in about 8 months. documented in this encounter Progress Notes * Ramonita Pandey MD - 02/14/2014 4:23 PM EST PROBLEM LIST ??? Crohn's ileitis [...] and did not show active disease. He continues to take azathioprine 250 mg per day. He is moving his bowels typically 3-4 times per day and on bad days he is having 5-6 stools per day. There has been no abdominal pain. There has been no apthous stomatitis, episcleritis, uveitis, inflammatory arthritis, pyoderma gangrenosum, erythema nodosum, or perianal lesions. He misses dose of his medication about once every 1-2 weeks. Review of Systems Constitutional: Negative for fever, fatigue and unexpected weight change. HENT: Negative for mouth sores. Eyes: Negative for pain and redness. Respiratory: Negative for cough and shortness of breath. Cardiovascular: Negative for chest pain and palpitations. Gastrointestinal: Negative for nausea, vomiting, abdominal pain, diarrhea, constipation, blood in stool and abdominal distention. Genitourinary: No perianal lesions, drainage, or pain. This [...] reviewed. Wt Readings from Last 3 Encounters: 02/14/14 107.004 kg (235 lb 14.4 oz) 11/08/12 101.152 kg (223 lb) 12/18/10 98.431 kg (217 lb) Labs reviewed from June - see scanned docs. WBC 3.76 Assessment and Plan: Mr. Woodruff is doing well. Suspect that his loose stools are due to bile acid diarrhea. He prefers not to take bile acid binders. He had similar symptoms at last staging. Stressed the importance of regular lab work and taking his meds regularly. Also addressed preventive issues - flu shot and annual skin exam. We discussed the following recommendations that were printed out for the patient: # Continue the azathioprine as you have been. # Please have your labs (complete blood count, liver tests, and C-reactive protein) checked once every 3-4 months. # Recommended annual flu shot. # The nature of sun-induced photo-aging and [...] with me in the office in about 8 months. Angelo Pandey MD Vice President Biostatisticsresidence life director Section of Gastroenterology [place] [address] CC: JESUS GONSALEZ DO [address] [place] [phone] documented in this encounter Miscellaneous Notes * Addendum Note - Luigi Espino - 02/14/2014 4:49 PM ESTAddended by: LUIGI ESPINO on: 02/14/2014 04:49 PM Modules accepted: Orders documented in this encounter Plan of Treatment Upcoming Encounters Date Type Department Care Team (Latest Contact Info) Description 04/01/2024 12:35 PM EST Hospital Encounter [place] [phone] Apurva Vivas MD [facility] [place] [address] 04/01/2024 12:35 PM EST - 04/01/2024 2:17 PM EST Surgery [place] [phone] Apurva Vivas MD [facility] [place] [address] ANORECTAL EXAM, REQUIRING ANESTHESIA, DIAGNOSTIC (WRVU 1.8) 04/26/2024 3:00 PM EST Office [place] [phone] Apurva Vivas MD [facility] [place] [place] [address] Scheduled Orders Name Type Priority Associated Diagnoses Orde r Schedule CBC (with Diff) Lab Routine Crohn's disease, unspecified complication Expected: 02/14/2014 (Approximate), Expires: 05/15/2014 Hepatic Function Panel Lab Routine Crohn's disease, unspecified complication Expected: 02/14/2014 (Approximate), Expires: 05/15/2014 High Sensitivity CRP Lab Routine Crohn's disease, unspecified complication Expected: 02/14/2014 (Approximate), Expires: 05/15/2014 Scheduled Procedures Name Priority Associated Diagnoses Date/Ti me ANORECTAL EXAM, REQUIRING ANESTHESIA, DIAGNOSTIC (WRVU 1.8) perianal crohns disease w/fistula 04/01/2024 12:35 PM EST SURGICAL TREATMENT OF ANAL FISTULA COMPLEX OR MULTIPLE W\WO SETON PLACEMENT (WRVU 6.39) perianal crohns disease w/fistula 04/01/2024 12:35 PM EST documented as of this encounter Procedures Procedure Name Priority Date/Time Associated Diagnosis Comments HEMOGRAM Routine 02/14/2014 5:09 PM EST Crohn's disease, without complications Abnormal LFTs DIFFERENTIAL, AUTOMATED Routine 02/14/2014 5:09 PM EST Crohn's disease, without complications Abnormal LFTs VITAMIN D, 25-HYDROXY Routine 02/14/2014 5:09 PM EST Crohn's disease, unspecified complication CBC (WITH DIFF) Routine 02/14/2014 5:09 PM EST Crohn's disease, without complications Abnormal LFTs CRP, CARDIAC RISK (HS CRP) Routine 02/14/2014 5:09 PM EST Crohn's disease, without complications Abnormal LFTs VITAMIN B12 Routine 02/14/2014 5:09 PM EST Crohn's disease, unspecified complication HEPATIC FUNCTION PANEL Routine 02/14/2014 5:09 PM EST Abnormal LFTs Crohn's disease, without complications documented in this encounter Results * Differential, Automated (02/14/2014 5:09 PM EST) Neutrophil % 50.9 % CERNER MILLENNIUM Neutrophil Absolute 2.22 1.50 - 6.30 x10(3)/mcL CERNER MILLENNIUM Lymph % 38.8 % CERNER MILLENNIUM Lymphocytes Abs 1.7 1.0 - 3.6 x10(3)/mcL CERNER MILLENNIUM Monocyte % 7.8 % CERNER MILLENNIUM Monocyte Abs 0.3 0.2 - 1.0 x10(3)/mcL CERNER MILLENNIUM Eos % 2.1 % CERNER MILLENNIUM Eosinophils Abs 0.1 0.0 [...] 0.05 x10(3)/mcL CERNER MILLENNIUM Blood specimen (specimen) 02/14/2014 5:09 PM EST 02/14/2014 5:19 PM EST Narrative Resulting Agency Comment Spec In Lab L Timothy Pandey MD HEMATOLOGY ORDERABLE S Performing Organization Address [facility]/ZIP Co de Phone Number CERMARVIN FRAGAENNIUM * Hemogram (02/14/2014 5:09 PM EST) White Blood Cell 4.4 4.0 - 10.0 x10(3)/mcL CERNER MILLENNIUM Red Blood Cell 4.82 4.63 - 6.08 x10(6)/mcL CERNER MILLENNIUM Hemoglobin 15.0 13.7 - 17.5 gm/dL CERNER MILLENNIUM Hematocrit 41.6 40.0 - 51.0 % CERNER MILLENNIUM Mean Cell Volume 86.3 79.0 - 92.0 fL CERNER MILLENNIUM Mean Cell Hemoglobin 31.1 25.6 - 32.2 pg CERNER MILLENNIUM Mean Cell Hemoglobin Concentration 36.1 32.0 - 36.5 gm/dL CERNER MILLENNIUM Platelet 237 145 - 370 x10(3)/mcL CERNER MILLENNIUM RDW Standard Deviation 41.2 35.0 - 46.0 fL CERNER MILLENNIUM RDW coefficient of variation 13.1 10.9 - 14.4 % CERNER MILLENNIUM Mean Platelet Volume 9.9 9.0 - 12.0 fL CERNER MILLENNIUM Blood specimen (specimen) 02/14/2014 5:09 PM EST 02/14/2014 5:19 PM EST Narrative Resulting Agency Comment Spec In Lab L Timothy Pandey MD HEMATOLOGY ORDERABLE S Performing Organization Address [facility]/ZIP Co de Phone Number JESENIA LUAIUM * High Sensitivity CRP (02/14/2014 5:09 PM EST) C-Reactive Protein High Sensitivity 0.3 mg/L CERNER MILLENNIUM Comment: Interpretations: 1) For [...] prevention. ??Circulation 2003; [phone]:[id number] Blood specimen (specimen) 02/14/2014 5:09 PM EST 02/14/2014 5:19 PM EST Narrative Resulting Agency Comment Spec In Lab L Timothy Pandey MD CHEMISTRY ORDERABLES JESENIA GOLDBERG * Hepatic Function Panel (02/14/2014 5:09 PM EST) Pathologist [facility] Protein, Total 7.0 6.4 - 8.3 gm/dL CERNER MILLENNIUM Albumin 4.5 3.2 - 5.2 gm/dL CERNER MILLENNIUM Aspartate Aminotransferase 24 0 - 39 unit/L CERNER MILLENNIUM Alanine Aminotransferase 32 0 - 55 unit/L CERNER MILLENNIUM Alkaline Phosphatase 56 40 - 120 unit/L CERNER MILLENNIUM Bilirubin, Total 0.8 0.2 - 1.3 mg/dL CERNER MILLENNIUM Bilirubin, Direct 0.1 0.0 - 0.3 mg/dL CERNER MILLENNIUM Blood specimen (specimen) 02/14/2014 5:09 PM EST 02/14/2014 5:19 PM EST Narrative Resulting Agency Comment Spec In Lab Ramonita Pandey MD CHEMISTRY ORDERABLES Performing Organization Address [facility] de Phone Number [facility] * VIT D Total Evaluation (02/14/2014 5:09 PM EST) Vitamin D Total 25 OH 47 30 - 100 ng/mL [facility] Comment: Deficient <10 ng/mL Insufficient 10 to 29 ng/mL Sufficient 30 to 100 ng/mL Potential Intoxication >100 ng/mL According to the [place] National Osteoporosis Foundation, Vitamin D concentrations >30 ng/mL are sufficient to protect bone health. ??The National Kidney Foundation has similarly stated that patients with Vitamin D concentrations <30ng/mL should be considered to be insufficient or deficient. http://[employer]/DHMCnatlkidneyfoundation http://[employer]/DHRealitycheckVitD The [employer] Vitamin D Immunoassay detects both 25-OH Vitamin D2 and 25-OH Vitamin D3, but only a total Vitamin D concentration is reported. Blood specimen (specimen) 02/14/2014 5:09 PM EST 02/14/2014 5:19 PM EST Narrative Resulting Agency Comment Spec In Lab L Timothy Pandey MD CHEMISTRY ORDERABLES Performing Organization Address [facility] de Phone Number [facility] * Vitamin B12 (02/14/2014 5:09 PM EST) Vitamin B12 446 207 - 974 pg/mL [facility] Blood specimen (specimen) 02/14/2014 5:09 PM EST 02/14/2014 5:19 PM EST Narrative Resulting Agency Comment Spec In Lab L Timothy Pandey MD CHEMISTRY ORDERABLES Performing Organization Address [facility] Co de Phone Number [facility] documented in this encounter Visit Diagnoses Diagnosis Crohn's disease, unspecified complication Crohn's disease, without complications Abnormal LFTs Other abnormal blood chemistry documented in this encounter Care Teams Dress Fitter Relationship Specialty Start Date End Date Jesus Gonsalez DO [address] [place] [address] PCP - General 05/01/11 documented as of this encounter
--- OUTSIDE RECORDS SUMMARY | 2024-03-10 02:02 | XMS_ITS | Encounter Summary ---
Author Organization [facility] Address [facility] [place] [address] Care Team Providers Care End Stapler Name Role Phone Irwin Gonsalez DO Primary Care Provider Encounter Details Date Type Department Care Team (Late st Contact Info) Description 07/11/2013 Orders [place] [address] Ramonita Pandey MD [facility] [place] [address] Crohn's disease, without complications; Abnormal LFTs Social History Tobacco Use Types Packs/Day Years [...] (Latest Contact Info) Description 04/01/2024 12:35 PM [facility] Hospital Encounter [place] [phone] Apurva Vivas MD [facility] [place] [place] [address] 04/01/2024 12:35 PM EST - 04/01/2024 2:17 PM EST [place] [phone] Apurva Vivas MD [facility] [place] [address] ANORECTAL EXAM, REQUIRING ANESTHESIA, DIAGNOSTIC (WRVU 1.8) 04/26/2024 3:00 PM EST Office [place] [phone] Apurva Vivas MD [facility] [place] [place] [address] Scheduled Procedures Name Priority Associated Diagnoses Date/Ti me ANORECTAL EXAM, REQUIRING ANESTHESIA, DIAGNOSTIC (WRVU 1.8) perianal crohns disease w/fistula 04/01/2024 12:35 PM EST SURGICAL TREATMENT OF ANAL FISTULA COMPLEX OR MULTIPLE W\WO SETON PLACEMENT (WRVU 6.39) perianal crohns disease w/fistula 04/01/2024 12:35 PM EST documented as of this encounter Visit Diagnoses Diagnosis Crohn's disease, without complications Abnormal LFTs Other abnormal blood chemistry documented in this encounter Care Teams End Stapler Relationship Specialty Start Date End Date Irwin Gonsalez DO [address] [place] [address] PCP - General 05/01/11 documented as of this encounter
--- OUTSIDE RECORDS SUMMARY | 2024-03-10 02:02 | XMS_ITS | Encounter Summary ---
Author Organization [facility] [place] [address] Care Team Providers Care Chlorinator Name Role Phone Irwin Gonsalez DO Primary Care Provider Encounter Details Date Type Department Care Team (Late st Contact Info) Description 02/24/2012 External Results [place] [phone] Ramonita Pandey MD [facility] [place] [address] Social History Tobacco Use Types Packs/Day Years [...] PM EST Hospital Encounter [place] [phone] Apurva Vivas MD [facility] [place] [address] 04/01/2024 12:35 PM EST - 04/01/2024 2:17 PM EST Surgery [place] [address] Apurva Vivas MD [facility] [place] [address] ANORECTAL EXAM, REQUIRING ANESTHESIA, DIAGNOSTIC (WRVU 1.8) 04/26/2024 3:00 PM EST Office [place] [phone] Apurva Vivas MD [facility] [place] [address] Scheduled Procedures Name Priority Associated Diagnoses Date/Ti [...] on filedocumented in this encounter Care Teams Chlorinator Relationship Specialty Start Date End Date Irwin Gonsalez DO [address] [place] [address] PCP - General 05/01/11 documented as of this encounter
--- OUTSIDE RECORDS SUMMARY | 2024-03-10 02:02 | XMS_ITS | Encounter Summary ---
Author Organization [facility] [place] [address] Care Team Providers Care Die Trimmer Name Role Phone Irwin Gonsalez DO Primary Care Provider Encounter Details Date Type Department Care Team (Late st Contact Info) Description 12/02/2011 External [place] [phone] Ramonita Pandey MD [facility] [place] [address] Social History Tobacco Use Types Packs/Day Years [...] PM EST Hospital Encounter [place] [phone] Apurva Vivas MD [facility] [place] [address] 04/01/2024 12:35 PM EST - 04/01/2024 2:17 PM EST Surgery [place] [address] Apurva Vivas MD [facility] [place] [address] ANORECTAL EXAM, REQUIRING ANESTHESIA, DIAGNOSTIC (WRVU 1.8) 04/26/2024 3:00 PM EST Office [place] [phone] Apurva Vivas MD [facility] [place] [address] Scheduled Procedures Name Priority Associated Diagnoses Date/Ti me ANORECTAL EXAM, REQUIRING ANESTHESIA, DIAGNOSTIC (WRVU 1.8) perianal crohns disease w/fistula 04/01/2024 12:35 PM EST SURGICAL TREATMENT OF ANAL FISTULA COMPLEX OR MULTIPLE W\WO SETON PLACEMENT (WRVU 6.39) perianal crohns disease w/fistula 04/01/2024 12:35 PM EST documented as of this encounter Procedures Procedure Name Priority Date/Time Associated Diagnosis Comments LAB SCAN Routine 11/30/2011 documented in this encounter Results * Scan Doc: Lab (11/30/2011) 11/30/2011 L Timothy Pandey MD MEDIA MGR SCAN EXT O RDR/RSLT documented in this encounter Visit Diagnoses Not on filedocumented in this encounter Care Teams Die Trimmer Relationship Specialty Start Date End Date Irwin Gonsalez DO [address] [place] [address] PCP - General 05/01/11 documented as of this encounter
--- OUTSIDE RECORDS SUMMARY | 2024-03-10 02:02 | XMS_ITS | Encounter Summary ---
Author Organization [facility] [place] [address] Care Team Providers Care Push Connector Assembler Name Role Phone Irwin Gonsalez DO Primary Care Provider Reason for Visit * Reason Comments Medication Refill Encounter Details Date Type Department Care Team (Late st Contact Info) Description 08/31/2013 Refill [place] [address] Ramonita Pandey MD [facility] [address] Social History Tobacco Use Types Packs/Day Years [...] PM EST Hospital Encounter [place] [address] Apurva Vivas MD [facility] [address] 04/01/2024 12:35 PM EST - 04/01/2024 2:17 PM EST Surgery [place] [phone] Apurva Vivas MD [facility] [address] ANORECTAL EXAM, REQUIRING ANESTHESIA, DIAGNOSTIC (WRVU 1.8) 04/26/2024 3:00 PM EST Office Visit [place] [phone] Apurva Vivas MD [facility] [place] [address] Scheduled Procedures Name Priority Associated Diagnoses Date/Ti me ANORECTAL EXAM, REQUIRING ANESTHESIA, DIAGNOSTIC (WRVU 1.8) perianal crohns disease w/fistula 04/01/2024 12:35 PM EST SURGICAL TREATMENT OF ANAL FISTULA COMPLEX OR MULTIPLE W\WO SETON PLACEMENT (WRVU 6.39) perianal crohns disease w/fistula 04/01/2024 12:35 PM EST documented as of this encounter Visit Diagnoses Not on filedocumented in this encounter Care Teams Push Connector Assembler Relationship Specialty Start Date End Date Irwin Gonsalez DO [address] [place] [address] PCP - General 05/01/11 documented as of this encounter
--- OUTSIDE RECORDS SUMMARY | 2024-03-10 02:02 | XMS_ITS | Encounter Summary ---
[place] [address] Care Team Providers Care Helium Arc Welder Name Role Phone Irwin Gonsalez DO Primary Care Provider Reason for Visit * Reason Onset Date Comments Medication Refill 12/01/2011 Encounter Details Date Type Department Care Team (Late st Contact Info) Description 12/01/2011 [place] [address] Ramonita Pandey MD [facility] [place] [address] IBD (inflammatory bowel disease) Social History Tobacco [...] Telephone Encounter - Agueda Trujillo RN - 12/02/2011 12:30 PM EDT Mailed a copy of his labs and a new lab order for monthly labs to patient. * Telephone Encounter - Agueda Trujillo RN - 12/02/2011 11:48 AM EDT Message Okay to renew. Would recheck labs in 4 weeks. Thanks, C ----- Message ----- From: Agueda Trujillo RN Sent: 12/01/2011 3:12 PM To: Ramonita Pandey MD, * Subject: RX aza 250 mg qd Labs done 11/30/11, WBC slightly down to 3.93 (from 4.03 on 10/05/11) Asking for new Rx for aza. Has been on 250 qd. OK to renew? Called and left message for Igor on his mobile phone, that medication is renewed at same dose andrepeat labs should be done mid December. documented in this encounter Plan of Treatment Upcoming Encounters Date Type Department Care Team (Latest Contact Info) Description 04/01/2024 12:35 PM EST Hospital Encounter [place] [address] Apurva Vivas MD [facility] [place] [address] 04/01/2024 12:35 PM EST - 04/01/2024 2:17 PM EST [place] [address] Apurva Vivas MD [facility] [place] [address] ANORECTAL EXAM, REQUIRING ANESTHESIA, DIAGNOSTIC (WRVU 1.8) 04/26/2024 3:00 PM EST Office [place] [phone] Apurva Vivas MD [facility] [place] [address] Scheduled Procedures Name Priority Associated Diagnoses Date/Ti [...] colitis documented in this encounter Care Teams Helium Arc Welder Relationship Specialty Start Date End Date Irwin Gonsalez DO [address] [place] [address] PCP - General 05/01/11 documented as of this encounter
--- OUTSIDE RECORDS SUMMARY | 2024-03-10 02:02 | XMS_ITS | Encounter Summary ---
Author Organization [facility] Address [facility] [place] [address] Care Team Providers Care Plant Control Aide Name Role Phone Irwin Gonsalez DO Primary Care Provider [phone] Reason for Visit * Reason Comments Excessive Sweating Encounter Details Date Type Department Care Team (Late st Contact Info) Description 04/20/2012 10:00 AM EST Follow-Up Dermatology at [facility] [address] [place] [address] Bharathi Foote MD [facility] [place] [address] Hyperhydrosis disorder (Primary Dx) Discharge Disposition: Home Social History Tobacco Use [...] Progress Notes * Bharathi Foote MD - 04/20/2012 10:16 AM EST PROBLEM: 1. Axillary Hyperhidrosis 2. Here for treatment options including Botox injections SUBJECT: 37 y.o. year old male. Here for discussion [...] months sooner if needed GANESH DEJESUS LPN documented in this encounter Plan of Treatment Upcoming Encounters Date Type Department Care Team (Latest Contact Info) Description 04/01/2024 12:35 PM EST Hospital Encounter [place] [address] Apurva Vivas MD [facility] [place] [place] [address] 04/01/2024 12:35 PM EST - 04/01/2024 2:17 PM EST Surgery [place] [address] Apurva Vivas MD [facility] [place] [place] [address] ANORECTAL EXAM, REQUIRING ANESTHESIA, DIAGNOSTIC (WRVU 1.8) 04/26/2024 3:00 PM EST Office [place] [phone] Apurva Vivas MD [facility] [place] [place] [address] Scheduled Procedures Name Priority Associated Diagnoses Date/Ti me ANORECTAL EXAM, REQUIRING ANESTHESIA, DIAGNOSTIC (WRVU 1.8) perianal crohns disease w/fistula 04/01/2024 12:35 PM EST SURGICAL TREATMENT OF ANAL FISTULA COMPLEX OR MULTIPLE W\WO SETON PLACEMENT (WRVU 6.39) perianal crohns disease w/fistula 04/01/2024 12:35 PM EST documented as of this encounter Visit Diagnoses Diagnosis Hyperhydrosis disorder- Primary Primary focal hyperhidrosis documented in this encounter Administered Medications Inactive Administered Medications - up to 3 most recent administrations Medication Order MAR Action Action Date Dose Rate Site botulinum toxin type A (BOTOX) injection 100 Units 100 Units, Intramuscular, ONCE, 1 dose, On Thu04/20/12 at 1230, Routine Given 04/20/2012 12:09 PM EST 100 Units 20-Other (document in comment section) documented in this encounter Care Teams Plant Control Aide Relationship Specialty Start Date End Date Irwin Gonsalez DO [address] [place] [address] PCP - General 05/01/11 documented as of this encounter
--- OUTSIDE RECORDS SUMMARY | 2024-03-10 02:02 | XMS_ITS | Encounter Summary ---
[place] [address] Care Team Providers Care Client Services Manager Name Role Phone Irwin Gonsalez DO Primary Care Provider [phone] Encounter Details Date Type Department Care Team (Late st Contact Info) Description 11/16/2012 Telephone [place] [phone] Agueda Trujillo, RN Social History Tobacco Use Types Packs/Day [...] Telephone Encounter - Shannan Barnard RN - 11/16/2012 4:47 PM EDT Spoke with patient, he will increase his Azathioprine to 400mg per day and have CBC rechecked in 2-3 weeks. Has labs drawn at [facility] in [facility], will send lab requisition. * Telephone Encounter - Agueda Trujillo RN - 11/16/2012 3:53 PM EDT Would you please let Mr. Gan know that the metabolite levels of his azathioprine were very low (136 -would like them >230)? Please double check that he has 50 mg tablets with him and then have him increase his dose from 1 tab (50 mg) to 4 tabs (200 mg) per day. He should have his CBC rechecked 2-3 weeks after increasing his dose. Thanks, Timothy RN calling patient. No answer. Left a message on his mobile phone asking him to call back to discuss lab results and medication advice. documented in this encounter Plan of Treatment Upcoming Encounters Date Type Department Care Team (Latest Contact Info) Description 04/01/2024 12:35 PM EST Hospital Encounter [place] [address] Apurva Vivas MD [facility] [place] [address] 04/01/2024 12:35 PM EST - 04/01/2024 2:17 PM EST Surgery [place] [phone] Apurva Vivas MD [facility] [place] [address] ANORECTAL EXAM, REQUIRING ANESTHESIA, DIAGNOSTIC (WRVU 1.8) 04/26/2024 3:00 PM EST Office [place] [phone] Apurva Vivas MD [facility] [place] [address] Scheduled Procedures Name Priority Associated Diagnoses Date/Ti me ANORECTAL EXAM, REQUIRING ANESTHESIA, DIAGNOSTIC (WRVU 1.8) perianal crohns disease w/fistula 04/01/2024 12:35 PM EST SURGICAL TREATMENT OF ANAL FISTULA COMPLEX OR MULTIPLE W\WO SETON PLACEMENT (WRVU 6.39) perianal crohns disease w/fistula 04/01/2024 12:35 PM EST documented as of this encounter Visit Diagnoses Not on filedocumented in this encounter Care Teams Client Services Manager Relationship Specialty Start Date End Date Irwin Gonsalez DO [address] [place] [address] PCP - General 05/01/11 documented as of this encounter
--- OUTSIDE RECORDS SUMMARY | 2024-03-10 02:02 | XMS_ITS | Encounter Summary ---
[place] [address] Care Team Providers Care Manager Business Operations Name Role Phone Irwin Gonsalez DO Primary Care Provider Encounter Details Date Type Department Care Team (Late st Contact Info) Description 11/14/2011 Telephone [place] [phone] Swetha Berry RN Social History Tobacco Use [...] Telephone Encounter - Swetha Le RN - 11/14/2011 3:28 PM EDT Igor's called reporting that he has been having difficulty with his memory and having headaches since his colon surgery. No loss of consciousness, no dizziness or blurred vision Asking if he can have his B12 levels checked. Will review with Dr Pandey. [facility] is the lab he would like to use 11/19/[address] Pandey: Labs to be drawn and followed through PCP documented in this encounter Plan of Treatment Upcoming Encounters Date Type Department Care Team (Latest Contact Info) Description 04/01/2024 12:35 PM EST Hospital Encounter [place] [phone] Apurva Vivas MD [facility] [place] [address] 04/01/2024 12:35 PM EST - 04/01/2024 2:17 PM EST Surgery [place] [phone] Apurva Vivas MD [facility] [place] [address] ANORECTAL EXAM, REQUIRING ANESTHESIA, DIAGNOSTIC (WRVU 1.8) 04/26/2024 3:00 PM EST Office [place] [phone] Apurva Vivas MD [facility] [place] [address] Scheduled Procedures Name Priority Associated Diagnoses Date/Ti me ANORECTAL EXAM, REQUIRING ANESTHESIA, DIAGNOSTIC (WRVU 1.8) perianal crohns disease w/fistula 04/01/2024 12:35 PM EST SURGICAL TREATMENT OF ANAL FISTULA COMPLEX OR MULTIPLE W\WO SETON PLACEMENT (WRVU 6.39) perianal crohns disease w/fistula 04/01/2024 12:35 PM EST documented as of this encounter Visit Diagnoses Not on filedocumented in this encounter Care Teams Manager Business Operations Relationship Specialty Start Date End Date Irwin Gonsalez DO [address] [place] [address] PCP - General 05/01/11 documented as of this encounter
--- OUTSIDE RECORDS SUMMARY | 2024-03-10 02:02 | XMS_ITS | Encounter Summary ---
Author Organization [facility] Address [facility] [place] [address] Care Team Providers Care Cloth Finishing Range Back Tender Name Role Phone Irwin Gonsalez DO Primary Care Provider Reason for Visit * Reason Comments Excessive Sweating Encounter Details Date Type Department Care Team (Late st Contact Info) Description 05/08/2015 3:45 PM EST Office Visit Dermatology at [facility] [address] [place] [address] [facility] [place] [address] Hyperhidrosis Social History Tobacco Use Types Packs/Day [...] this encounter Patient Instructions * Patient Instructions* Sheryl Beckford RN - 05/08/2015 4:32 PM EST .avs documented in this encounter Progress Notes * Bharathi Foote MD - 05/08/2015 4:08 PM EST PROBLEM: 1. Axillary Hyperhidrosis 2. Here for treatment with Botox injections SUBJECT: 40 y.o. year old male. Here for treatment of axillary hyperhidrosis. Last treatment over one year ago . Insurance approval for one year . Discussed Miradry. Maybe in the future. Sympathectomy [...] inhibit or decrease sweating for 6-12 months. 4. FU as required. May need [...] 1. 6 -12 months sooner if needed I am documenting this encounter acting as the scribe for and in the presence of SHERYL Duncan, SYDNEE I performed the above scribed service and agree with the accuracy of the documentation in this encounter, MD Ria Mendez M.D. Section of Dermatology documented in this encounter Plan of Treatment Upcoming Encounters Date Type Department Care Team (Latest Contact Info) Description 04/01/2024 12:35 PM EST Hospital Encounter [place] [address] [facility] [place] [address] 04/01/2024 12:35 PM EST - 04/01/2024 2:17 PM EST [place] [phone] [facility] [place] [address] ANORECTAL EXAM, REQUIRING ANESTHESIA, DIAGNOSTIC (WRVU 1.8) 04/26/2024 3:00 PM EST Office [place] [phone] [facility] [place] [address] Scheduled Procedures Name Priority Associated Diagnoses Date/Ti [...] 100 Units, Intramuscular, ONCE, 1 dose, On Thu05/08/15 at 1645, Routine Given 05/08/2015 4:30 PM EST 100 Units documented in this encounter Care Teams Cloth Finishing Range Back Tender Relationship Specialty Start Date End Date Irwin Gonsalez DO [address] [place] [address] PCP - General 05/01/11 documented as of this encounter
--- OUTSIDE RECORDS SUMMARY | 2024-03-10 02:02 | XMS_ITS | Encounter Summary ---
[place] [address] Care Team Providers Care Senior Games Technician Name Role Phone Irwin Gonsalez DO Primary Care Provider Encounter Details Date Type Department Care Team (Late st Contact Info) Description 06/21/2012 Telephone [place] [phone] Agueda Trujillo, RN Social History Tobacco Use [...] Miscellaneous Notes * Telephone Encounter - Agueda Trujillo, RN - 06/21/2012 12:50 PM EDT Patient calling re: labs. Labs done 05/30/12 but he has not heard results. Lab results from 05/30/12 show cbc and LFT all within normal limits. Patient informed documented in this encounter Plan of Treatment Upcoming Encounters Date Type Department Care Team (Latest Contact Info) Description 04/01/2024 12:35 PM EST Hospital Encounter [place] [address] Apurva Vivas MD [facility] [place] [address] 04/01/2024 12:35 PM EST - 04/01/2024 2:17 PM EST Surgery [place] [address] Apurva Vivas MD [facility] [place] [address] ANORECTAL EXAM, REQUIRING ANESTHESIA, DIAGNOSTIC (WRVU 1.8) 04/26/2024 3:00 PM EST Office Visit [place] [phone] Apurva Vivas MD [facility] [place] [address] Scheduled Procedures Name Priority Associated Diagnoses Date/Ti me ANORECTAL EXAM, REQUIRING ANESTHESIA, DIAGNOSTIC (WRVU 1.8) perianal crohns disease w/fistula 04/01/2024 12:35 PM EST SURGICAL TREATMENT OF ANAL FISTULA COMPLEX OR MULTIPLE W\WO SETON PLACEMENT (WRVU 6.39) perianal crohns disease w/fistula 04/01/2024 12:35 PM EST documented as of this encounter Visit Diagnoses Not on filedocumented in this encounter Care Teams Senior Games Technician Relationship Specialty Start Date End Date Irwin Gonsalez DO [address] [place] [address] PCP - General 05/01/11 documented as of this encounter
--- OUTSIDE RECORDS SUMMARY | 2024-03-10 02:02 | XMS_ITS | Encounter Summary ---
Author Organization [facility] [place] [address] Care Team Providers Care Apprentice Painter Brush Name Role Phone Irwin Gonsalez DO Primary Care Provider [phone] Encounter Details Date Type Department Care Team (Late st Contact Info) Description 06/01/2012 External Results [place] [phone] Ramonita Pandey MD [facility] [place] [address] Social History Tobacco Use Types Packs/Day Years [...] EST Hospital Encounter [place] [phone] Apurva Vivas MD [facility] [place] [address] 04/01/2024 12:35 PM EST - 04/01/2024 2:17 PM EST Surgery [place] [address] Apurva Vivas MD [facility] [place] [address] ANORECTAL EXAM, REQUIRING ANESTHESIA, DIAGNOSTIC (WRVU 1.8) 04/26/2024 3:00 PM EST Office Visit [place] [phone] Apurva Vivas MD [facility] [place] [address] Scheduled Procedures Name Priority Associated Diagnoses Date/Ti me ANORECTAL EXAM, REQUIRING ANESTHESIA, DIAGNOSTIC (WRVU 1.8) perianal crohns disease w/fistula 04/01/2024 12:35 PM EST SURGICAL TREATMENT OF ANAL FISTULA COMPLEX OR MULTIPLE W\WO SETON PLACEMENT (WRVU 6.39) perianal crohns disease w/fistula 04/01/2024 12:35 PM EST documented as of this encounter Procedures Procedure Name Priority Date/Time Associated Diagnosis Comments LAB SCAN Routine 05/30/2012 documented in this encounter Results * Scan Doc: Lab (05/30/2012) 05/30/2012 L Timothy Pandey MD MEDIA MGR SCAN EXT O RDR/RSLT documented in this encounter Visit Diagnoses Not on filedocumented in this encounter Care Teams Apprentice Painter Brush Relationship Specialty Start Date End Date Irwin Gonsalez DO [address] [place] [address] PCP - General 05/01/11 documented as of this encounter
--- OUTSIDE RECORDS SUMMARY | 2024-03-10 02:02 | XMS_ITS | Encounter Summary ---
Author Organization [facility] [place] [address] Care Team Providers Care Merchandising Representative Name Role Phone Irwin Gonsalez DO Primary Care Provider Encounter Details Date Type Department Care Team (Late st Contact Info) Description 06/21/2015 Orders [place] [phone] Sabas Gonzales RN Crohn's disease with other complication, unspecified gastrointestinal tract location Social History [...] PM EST Hospital Encounter [place] [phone] Apurva Vivas MD [facility] [place] [address] 04/01/2024 12:35 PM EST - 04/01/2024 2:17 PM EST Surgery [place] [address] Apurva Vivas MD [facility] [place] [address] ANORECTAL EXAM, REQUIRING ANESTHESIA, DIAGNOSTIC (WRVU 1.8) 04/26/2024 3:00 PM EST Office [place] [phone] Apurva Vivas MD [facility] [place] [address] Scheduled Procedures Name Priority Associated Diagnoses Date/Ti [...] location documented in this encounter Care Teams Merchandising Representative Relationship Specialty Start Date End Date Irwin Gonsalez DO [address] [place] [address] PCP - General 05/01/11 documented as of this encounter
--- OUTSIDE RECORDS SUMMARY | 2024-03-10 02:02 | XMS_ITS | Encounter Summary ---
Author Organization [facility] Address [facility] [place] [address] Care Team Providers Care Process Control Tech Name Role Phone Irwin Gonsalez DO Primary Care Provider Reason for Visit * Reason Onset Date Comments Other 12/14/2013 Prior Authorizat ion Encounter Details Date Type Department Care Team (Late st Contact Info) Description 12/14/2013 Telephone Dermatology at [facility] [address] [place] [phone] Bharathi Foote MD [facility] [place] [address] Other (Prior Authorization) Social History Tobacco Use Types Packs/Day Years [...] Miscellaneous Notes * Telephone Encounter - Michelle Solo - 12/14/2013 10:23 AM EDT Prior Authorization Patient: Igor Monzonjoshua : 1975 Insurance Company: [address] [place] [address] NON REFERRAL Medication: BOTOX- [id number] Prior Authorization Status: PA IS NOT NEEDED WITH PATIETNS PLAN. documented in this encounter Plan of Treatment Upcoming Encounters Date Type Department Care Team (Latest Contact Info) Description 04/01/2024 12:35 PM EST Hospital Encounter [place] [address] Apurva Vivas MD [facility] [place] [address] 04/01/2024 12:35 PM EST - 04/01/2024 2:17 PM EST Surgery [place] [phone] Apurva Vivas MD [facility] [place] [address] ANORECTAL EXAM, REQUIRING ANESTHESIA, DIAGNOSTIC (WRVU 1.8) 04/26/2024 3:00 PM EST Office Visit [place] [phone] Apurva Vivas MD [facility] [place] [address] Scheduled Procedures Name Priority Associated Diagnoses Date/Ti me ANORECTAL EXAM, REQUIRING ANESTHESIA, DIAGNOSTIC (WRVU 1.8) perianal crohns disease w/fistula 04/01/2024 12:35 PM EST SURGICAL TREATMENT OF ANAL FISTULA COMPLEX OR MULTIPLE W\WO SETON PLACEMENT (WRVU 6.39) perianal crohns disease w/fistula 04/01/2024 12:35 PM EST documented as of this encounter Visit Diagnoses Not on filedocumented in this encounter Care Teams Process Control Tech Relationship Specialty Start Date End Date Irwin Gonsalez DO [address] [place] [address] [address] [place] [address] PCP - General 05/01/11 documented as of this encounter
--- OUTSIDE RECORDS SUMMARY | 2024-03-10 02:02 | XMS_ITS | Encounter Summary ---
Author Organization [place] [address] Care Team Providers Care Sagger Maker Name Role Phone Irwin Gonsalez DO Primary Care Provider Encounter Details Date Type Department Care Team (Late st Contact Info) Description 09/01/2012 External Results [place] [phone] Ramonita Pandey MD [facility] [place] [address] Social History Tobacco Use Types Packs/Day Years [...] PM EST Hospital Encounter [place] [phone] Apurva Vivas MD [facility] [place] [address] 04/01/2024 12:35 PM EST - 04/01/2024 2:17 PM EST Surgery [place] [address] Apurva Vivas MD [facility] [place] [address] ANORECTAL EXAM, REQUIRING ANESTHESIA, DIAGNOSTIC (WRVU 1.8) 04/26/2024 3:00 PM EST Office [place] [phone] Apurva Vivas MD [facility] [place] [address] Scheduled Procedures Name Priority Associated Diagnoses Date/Ti me ANORECTAL EXAM, REQUIRING ANESTHESIA, DIAGNOSTIC (WRVU 1.8) perianal crohns disease w/fistula 04/01/2024 12:35 PM EST SURGICAL TREATMENT OF ANAL FISTULA COMPLEX OR MULTIPLE W\WO SETON PLACEMENT (WRVU 6.39) perianal crohns disease w/fistula 04/01/2024 12:35 PM EST documented as of this encounter Procedures Procedure Name Priority Date/Time Associated Diagnosis Comments LAB SCAN Routine 08/29/2012 documented in this encounter Results * Scan Doc: Lab (08/29/2012) 08/29/2012 L Timothy Pandye MD MEDIA MGR SCAN EXT O RDR/RSLT documented in this encounter Visit Diagnoses Not on filedocumented in this encounter Care Teams Sagger Maker Relationship Specialty Start Date End Date Irwin Gonsalez DO [address] [place] [address] PCP - General 05/01/11 documented as of this encounter
--- OUTSIDE RECORDS SUMMARY | 2024-03-10 02:02 | XMS_ITS | Encounter Summary ---
Author Organization [facility] [place] [address] Care Team Providers Care Video Game Technician Name Role Phone Irwin Gonsalez DO Primary Care Provider [phone] Reason for Visit * Reason Comments Medication Refill Encounter Details Date Type Department Care Team (Late st Contact Info) Description 02/04/2015 Refill [place] [address] Ramonita Pandey MD [facility] [place] [address] Social History Tobacco Use Types Packs/Day Years [...] PM EST Hospital Encounter [place] [phone] Apurva Vivas MD [facility] [place] [address] 04/01/2024 12:35 PM EST - 04/01/2024 2:17 PM EST Surgery [place] [phone] Apurva Vivas MD [facility] [place] [address] ANORECTAL EXAM, REQUIRING ANESTHESIA, DIAGNOSTIC (WRVU 1.8) 04/26/2024 3:00 PM EST Office Visit [place] [address] Apurva Vivas MD [facility] [place] [address] Scheduled Procedures Name Priority Associated Diagnoses Date/Ti me ANORECTAL EXAM, REQUIRING ANESTHESIA, DIAGNOSTIC (WRVU 1.8) perianal crohns disease w/fistula 04/01/2024 12:35 PM EST SURGICAL TREATMENT OF ANAL FISTULA COMPLEX OR MULTIPLE W\WO SETON PLACEMENT (WRVU 6.39) perianal crohns disease w/fistula 04/01/2024 12:35 PM EST documented as of this encounter Visit Diagnoses Not on filedocumented in this encounter Care Teams Video Game Technician Relationship Specialty Start Date End Date Irwin Gonsalez DO [address] [place] [address] PCP - General 05/01/11 documented as of this encounter
--- OUTSIDE RECORDS SUMMARY | 2024-03-10 02:02 | XMS_ITS | Encounter Summary ---
[place] [address] Care Team Providers Care Electrician Helper Name Role Phone Irwin Gonsalez DO Primary Care Provider [phone] Reason for Visit * Reason Onset Date Comments Other 08/13/2011 low WBC, hold az a Encounter Details Date Type Department Care Team (Late st Contact Info) Description 08/13/2011 Telephone [place] [address] Agueda Trujillo, RN Other (low WBC, hold aza) Social History Tobacco Use Types Packs/Day Years [...] Notes * Telephone Encounter - Agueda Trujillo, SYDNEE - 08/13/2011 1:33 PM EDT Patient called back. He has been taking AZATHIOPRINE 150mg (not the 200 mg as recommended) He has been feeling fine. He will hold this medication for 7-10 days and have labs redrawn at [facility]. Advised to call to discuss results and recommendations about 48 hours after lab draw. Patient agrees with this plan. Lab order faxed to [facility]. * Telephone Encounter - Agueda Trujillo RN - 08/13/2011 11:57 AM EDT Patient had restarted azathioprine 200 mg mid June. Labs done 07/06/11 show WBC has dropped again to 3.72. Reviewed with Dr. Pandey. Patient should hold the azathioprine again for 7-10days and recheck labs. If WBC has normalized, will advise restart aza at reduced dose of 175 mg. Called and left a message on patient's cell phone asking him to call to discuss medication. Called and left a message onhis home phone to call to discuss and also to hold his medication. Direct phone number given. Awaitresponse. documented in this encounter Plan of Treatment Upcoming Encounters Date Type Department Care Team (Latest Contact Info) Description 04/01/2024 12:35 PM EST Hospital Encounter [place] [address] Apurva Vivas MD [facility] [place] [address] 04/01/2024 12:35 PM EST - 04/01/2024 2:17 PM EST Surgery [place] [address] Apurva Vivas MD [facility] [place] [address] ANORECTAL EXAM, REQUIRING ANESTHESIA, DIAGNOSTIC (WRVU 1.8) 04/26/2024 3:00 PM EST Office Visit [place] [address] Apurva Vivas MD [facility] [place] [address] Scheduled Procedures Name Priority Associated Diagnoses Date/Ti me ANORECTAL EXAM, REQUIRING ANESTHESIA, DIAGNOSTIC (WRVU 1.8) perianal crohns disease w/fistula 04/01/2024 12:35 PM EST SURGICAL TREATMENT OF ANAL FISTULA COMPLEX OR MULTIPLE W\WO SETON PLACEMENT (WRVU 6.39) perianal crohns disease w/fistula 04/01/2024 12:35 PM EST documented as of this encounter Visit Diagnoses Not on filedocumented in this encounter Care Teams Electrician Helper Relationship Specialty Start Date End Date Irwin Gonsalez DO [address] [place] [address] PCP - General 05/01/11 documented as of this encounter
--- OUTSIDE RECORDS SUMMARY | 2024-03-10 02:02 | XMS_ITS | Encounter Summary ---
Author Organization [facility] [place] [address] Care Team Providers Care Exec. Creative Director Name Role Phone Irwin Gonsalez DO Primary Care Provider Encounter Details Date Type Department Care Team (Late st Contact Info) Description 06/16/2014 Orders [place] [phone] Shannan Barnard RN Crohn's disease, unspecified complication Social History Tobacco Use Types Packs/Day [...] PM EST Hospital Encounter [place] [phone] Apurva Vivas MD [facility] [place] [address] 04/01/2024 12:35 PM EST - 04/01/2024 2:17 PM EST [place] [address] Apurva Vivas MD [facility] [place] [address] ANORECTAL EXAM, REQUIRING ANESTHESIA, DIAGNOSTIC (WRVU 1.8) 04/26/2024 3:00 PM EST Office Visit [place] [address] Apurva Vivas MD [facility] [place] [place] [address] Scheduled Procedures Name Priority Associated Diagnoses Date/Ti me ANORECTAL EXAM, REQUIRING ANESTHESIA, DIAGNOSTIC (WRVU 1.8) perianal crohns disease w/fistula 04/01/2024 12:35 PM EST SURGICAL TREATMENT OF ANAL FISTULA COMPLEX OR MULTIPLE W\WO SETON PLACEMENT (WRVU 6.39) perianal crohns disease w/fistula 04/01/2024 12:35 PM EST documented as of this encounter Visit Diagnoses Diagnosis Crohn's disease, unspecified complication documented in this encounter Care Teams Exec. Creative Director Relationship Specialty Start Date End Date Irwin Gonsalez DO [address] [place] [address] [address] [facility] [address] [place] [address] PCP - General 05/01/11 documented as of this encounter
--- OUTSIDE RECORDS SUMMARY | 2024-03-10 02:02 | XMS_ITS | Encounter Summary ---
Author Organization Formerly [facility] [place] [address] Care Team Providers Care Director Staffing Name Role Phone Irwin Gonsalez DO Primary Care Provider [phone] Encounter Details Date Type Department Care Team (Late st Contact Info) Description 08/15/2011 External Results [place] [phone] Ramonita Pandey MD [facility] DR [place] [address] Social History Tobacco Use Types Packs/Day Years [...] PM EST Hospital Encounter [place] [phone] Apurva Vivas MD [facility] [place] [address] 04/01/2024 12:35 PM EST - 04/01/2024 2:17 PM EST Surgery [place] [address] Apurva Vivas MD [facility] [place] [address] ANORECTAL EXAM, REQUIRING ANESTHESIA, DIAGNOSTIC (WRVU 1.8) 04/26/2024 3:00 PM EST Office Visit [place] [phone] Apurva Vivas MD [facility] [place] [address] Scheduled Procedures Name Priority Associated Diagnoses Date/Ti me ANORECTAL EXAM, REQUIRING ANESTHESIA, DIAGNOSTIC (WRVU 1.8) perianal crohns disease w/fistula 04/01/2024 12:35 PM EST SURGICAL TREATMENT OF ANAL FISTULA COMPLEX OR MULTIPLE W\WO SETON PLACEMENT (WRVU 6.39) perianal crohns disease w/fistula 04/01/2024 12:35 PM EST documented as of this encounter Procedures Procedure Name Priority Date/Time Associated Diagnosis Comments LAB SCAN Routine 07/06/2011 documented in this encounter Results * Scan Doc: Lab (07/06/2011) 07/06/2011 L Timothy Pandey MD MEDIA MGR SCAN EXT O RDR/RSLT documented in this encounter Visit Diagnoses Not on filedocumented in this encounter Care Teams Director Staffing Relationship Specialty Start Date End Date Irwin Gonsalez DO [address] [place] [address] [place] [address] PCP - General 05/01/11 documented as of this encounter
--- OUTSIDE RECORDS SUMMARY | 2024-03-10 02:02 | XMS_ITS | Encounter Summary ---
Author Organization [facility] [place] [address] Care Team Providers Care Retail Manager In Training Name Role Phone Irwin Gonsalez DO Primary Care Provider [phone] Encounter Details Date Type Department Care Team (Late st Contact Info) Description 10/28/2011 External Results [place] [phone] Ramonita Pandey MD [facility] [place] [place] [address] Social History Tobacco Use Types Packs/Day Years [...] PM EST Hospital Encounter [place] [phone] Apurva Vivas MD [facility] [place] [address] 04/01/2024 12:35 PM EST - 04/01/2024 2:17 PM EST Surgery [place] [address] Apurva Vivas MD [facility] [place] [address] ANORECTAL EXAM, REQUIRING ANESTHESIA, DIAGNOSTIC (WRVU 1.8) 04/26/2024 3:00 PM EST Office Visit [place] [phone] Apurva Vivas MD [facility] [place] [address] Scheduled Procedures Name Priority Associated Diagnoses Date/Ti me ANORECTAL EXAM, REQUIRING ANESTHESIA, DIAGNOSTIC (WRVU 1.8) perianal crohns disease w/fistula 04/01/2024 12:35 PM EST SURGICAL TREATMENT OF ANAL FISTULA COMPLEX OR MULTIPLE W\WO SETON PLACEMENT (WRVU 6.39) perianal crohns disease w/fistula 04/01/2024 12:35 PM EST documented as of this encounter Procedures Procedure Name Priority Date/Time Associated Diagnosis Comments LAB SCAN Routine 10/05/2011 documented in this encounter Results * Scan Doc: Lab (10/05/2011) 10/05/2011 L Timothy Pandey MD MEDIA MGR SCAN EXT O RDR/RSLT documented in this encounter Visit Diagnoses Not on filedocumented in this encounter Care Teams Retail Manager In Training Relationship Specialty Start Date End Date Irwin Gonsalez DO [address] [place] [address] [place] [address] PCP - General 05/01/11 documented as of this encounter
--- OUTSIDE RECORDS SUMMARY | 2024-03-10 02:02 | XMS_ITS | Encounter Summary ---
Author Organization Formerly [facility] [place] [address] Care Team Providers Care Email Producer Name Role Phone Irwin Gonsalez DO Primary Care Provider [phone] Reason for Visit * Reason Comments Medication Refill Encounter Details Date Type Department Care Team (Late st Contact Info) Description 11/18/2011 Refill [place] [phone] Warren Bender MD Social History Tobacco Use Types Packs/Day Years [...] PM EST Hospital Encounter [place] [phone] Apurva Vivas MD [facility] [place] [address] 04/01/2024 12:35 PM EST - 04/01/2024 2:17 PM EST [place] [address] Apurva Vivas MD [facility] [place] [address] ANORECTAL EXAM, REQUIRING ANESTHESIA, DIAGNOSTIC (WRVU 1.8) 04/26/2024 3:00 PM EST Office [place] [address] Apurva Vivas MD [facility] [place] [address] Scheduled Procedures Name Priority Associated Diagnoses Date/Ti me ANORECTAL EXAM, REQUIRING ANESTHESIA, DIAGNOSTIC (WRVU 1.8) perianal crohns disease w/fistula 04/01/2024 12:35 PM EST SURGICAL TREATMENT OF ANAL FISTULA COMPLEX OR MULTIPLE W\WO SETON PLACEMENT (WRVU 6.39) perianal crohns disease w/fistula 04/01/2024 12:35 PM EST documented as of this encounter Visit Diagnoses Not on filedocumented in this encounter Care Teams Email Producer Relationship Specialty Start Date End Date Irwin Gonsalez DO [address] [place] [address] [address] PCP - General 05/01/11 documented as of this encounter
--- OUTSIDE RECORDS SUMMARY | 2024-03-10 02:02 | XMS_ITS | Encounter Summary ---
Author Organization Formerly [facility] [place] [address] Care Team Providers Care Child Support Case Officer Name Role Phone Irwin Gonsalez DO Primary Care Provider [phone] Encounter Details Date Type Department Care Team (Late st Contact Info) Description 12/01/2012 External Results [place] [address] Provider, Scanning Social History Tobacco Use Types Packs/Day Years [...] PM EST Hospital Encounter [place] [phone] Apurva Vivas MD [facility] DR [place] [address] 04/01/2024 12:35 PM EST - 04/01/2024 2:17 PM EST Surgery [place] [address] Apurva Vivas MD [facility] [place] [address] ANORECTAL EXAM, REQUIRING ANESTHESIA, DIAGNOSTIC (WRVU 1.8) 04/26/2024 3:00 PM EST Office [place] [address] Apurva Vivas MD [facility] [place] [address] Scheduled Procedures Name Priority Associated Diagnoses Date/Ti me ANORECTAL EXAM, REQUIRING ANESTHESIA, DIAGNOSTIC (WRVU 1.8) perianal crohns disease w/fistula 04/01/2024 12:35 PM EST SURGICAL TREATMENT OF ANAL FISTULA COMPLEX OR MULTIPLE W\WO SETON PLACEMENT (WRVU 6.39) perianal crohns disease w/fistula 04/01/2024 12:35 PM EST documented as of this encounter Procedures Procedure Name Priority Date/Time Associated Diagnosis Comments LAB SCAN Routine 11/26/2012 LAB SCAN Routine 11/26/2012 documented in this encounter Results * Scan Doc: Lab (11/26/2012) 11/26/2012 Scanning Provider MEDIA MGR SCAN EXT O RDR/RSLT * Scan Doc: Lab (11/26/2012) 11/26/2012 Scanning Provider MEDIA MGR SCAN EXT O RDR/RSLT documented in this encounter Visit Diagnoses Not on filedocumented in this encounter Care Teams Child Support Case Officer Relationship Specialty Start Date End Date Irwin Gonsalez DO [address] [place] [address] [place] [address] PCP - General 05/01/11 documented as of this encounter
--- OUTSIDE RECORDS SUMMARY | 2024-03-10 02:02 | XMS_ITS | Encounter Summary ---
Author Organization [facility] [place] [address] Care Team Providers Care Printer Floor Covering Assistant Name Role Phone Irwin Gonsalez DO Primary Care Provider Encounter Details Date Type Department Care Team (Late st Contact Info) Description 02/25/2013 9:00 AM EST - 02/25/2013 9:45 AM EST [place] [phone] Ramonita Pandey MD [facility] [place] [address] COLONOSCOPY, DIAGNOSTIC (WRVU 3.26) Social History Tobacco [...] encounter Discharge Instructions * Discharge Instructions* Dennis Rios RN - 02/25/2013 9:47 AM EST Colonoscopy [...] concerns, you can call us: Thursday-Thursday Clinic [phone] 8a-5p Same Day Endo [phone] 7a-8p Otherwise contact [phone] and ask to speak to the booster assembler environmental health sanitarian. Follow up care is a garcia part [...] Pandey MD - 02/25/2013 9:38 AM EST [facility] Operative Note Patient Name: Igor Woodruff : [id number] MR#: [id number] Case Date: 02/25/2013 Surgeon: Surgeon(s) and Role: [...] PM EST Hospital Encounter [place] [address] Apurva Vivas MD [facility] [place] [address] 04/01/2024 12:35 PM EST - 04/01/2024 2:17 PM EST Surgery [place] [phone] Apurva Vivas MD [facility] [place] [address] ANORECTAL EXAM, REQUIRING ANESTHESIA, DIAGNOSTIC (WRVU 1.8) 04/26/2024 3:00 PM EST Office [place] [phone] Apurva Vivas MD [facility] [place] [address] Scheduled Procedures Name Priority Associated Diagnoses Date/Ti [...] * COLONOSCOPY (02/25/2013 7:15 AM EST) COLONOSCOPY [facility] Endoscopy Patient Name: Igor Woodruff ? Procedure Date: 02/25/2013 7:15 AM ? N: [id number] ? Date of : 1975 ? Age: 38 ? Order #: [id number] ? Procedure: ? Colonoscopy Indications: ? Follow-up of Crohn's disease of the ? small bowel Providers: ? Angelo Pandey MD, Lucero Montague, ? RN, Ivon Montenegro, Nuclear Medicine Medical Director Referring MD: ?Irwin Gonsalez, DO Medicines: ? [...] in this encounter Visit Diagnoses Diagnosis Crohn's ileitis Regional enteritis of small intestine documented in this encounter Administered Medications Inactive Administered Medications - up to 3 most recent administrations Medication Order MAR Action Action Date Dose Rate Site fentaNYL 50mcg/mL injection ONCE PRN, Starting on Thu02/25/13 at 0917, Until Thu02/25/13 at 1307, Pain, Intra-Operative (Intra-Procedure), Routine Given 02/25/2013 9:23 AM EST 50 mcg Right Arm Given 02/25/2013 9:20 AM EST 50 mcg Ri ght Arm Given 02/25/2013 9:17 AM EST 100 mcg Ri ght Arm midazolam (VERSED) injection ONCE PRN, Starting on Thu02/25/13 at 0917, Until Thu02/25/13 at 1307, Sleep, Intra-Operative (Intra-Procedure), Routine Given 02/25/2013 9:23 AM EST 1 mg Right Arm Given 02/25/2013 9:20 AM EST 1 mg Ri ght Arm Given 02/25/2013 9:17 AM EST 2 mg Ri ght Arm documented in this encounter Active and Recently [...] Thu02/25/13 at 1307, Sleep, Intra-Operative (Intra-Procedure), Routine 916 (Given - Provid er: Lucero Montague RN)0920 (Given - Provider: Lucero Montague RN)0923 (Given - Provider: Lucero Montague RN) documented in this encounter Care Teams Printer Floor Covering Assistant Relationship Specialty Start Date End Date Irwin Gonsalez DO [address] [facility] [address] [facility] [place] [address] PCP - General 05/01/11 documented as of this encounter
--- OUTSIDE RECORDS SUMMARY | 2024-03-10 02:02 | XMS_ITS | Encounter Summary ---
[place] [address] Care Team Providers Care Brimming Machine Operator Name Role Phone Irwin Gonsalez DO Primary Care Provider [phone] Reason for Visit * Reason Onset Date Comments Other 11/20/2011 Encounter Details Date Type Department Care Team (Late st Contact Info) Description 11/20/2011 Telephone [place] [address] Maria Chandler RN Other Social History Tobacco Use Types [...] encounter Miscellaneous Notes * Telephone Encounter - Maria Chandler RN - 11/20/2011 2:22 PM EDT I received a call from Igor's about his prescription for questran and if he needs it, his reports he does not like it. He does eat a bit of high fat, high carb foods per . We discussed how a healthier diet may help with how he feels at times. I have sent her a paper on protein and excessive flatus. I will forward this note to Dr. Bender to see if he feels Igor needs Questran at this point. documented in this encounter Plan of Treatment Upcoming Encounters Date Type Department Care Team (Latest Contact Info) Description 04/01/2024 12:35 PM EST Hospital Encounter [place] [address] Apurva Vivas MD [facility] [place] [address] 04/01/2024 12:35 PM EST - 04/01/2024 2:17 PM EST Surgery [place] [phone] Apurva Vivas MD [facility] [place] [address] ANORECTAL EXAM, REQUIRING ANESTHESIA, DIAGNOSTIC (WRVU 1.8) 04/26/2024 3:00 PM EST Office [place] [phone] Apurva Vivas MD [facility] [place] [place] [address] Scheduled Procedures Name Priority Associated Diagnoses Date/Ti me ANORECTAL EXAM, REQUIRING ANESTHESIA, DIAGNOSTIC (WRVU 1.8) perianal crohns disease w/fistula 04/01/2024 12:35 PM EST SURGICAL TREATMENT OF ANAL FISTULA COMPLEX OR MULTIPLE W\WO SETON PLACEMENT (WRVU 6.39) perianal crohns disease w/fistula 04/01/2024 12:35 PM EST documented as of this encounter Visit Diagnoses Not on filedocumented in this encounter Care Teams Brimming Machine Operator Relationship Specialty Start Date End Date Irwin Gonsalez DO [address] [place] [address] [address] [place] [address] PCP - General 05/01/11 documented as of this encounter
--- OUTSIDE RECORDS SUMMARY | 2024-03-10 02:03 | XMS_ITS | Encounter Summary ---
[place] [address] Care Team Providers Care Director Banking Name Role Phone Ebenezer Way MD Primary Care Provider Reason for Visit * Reason Onset Date Comments Medication Refill 12/25/2010 Encounter Details Date Type Department Care Team (Late st Contact Info) Description 12/25/2010 Ref[place] [phone] Ramonita Pandey MD [facility] [place] [address] Social History Tobacco Use Types Packs/Day Years [...] PM EST Hospital Encounter [place] [phone] Apurva Vivas MD [facility] [place] [address] 04/01/2024 12:35 PM EST - 04/01/2024 2:17 PM EST Surgery [place] [address] Apurva Vivas MD [facility] [place] [address] ANORECTAL EXAM, REQUIRING ANESTHESIA, DIAGNOSTIC (WRVU 1.8) 04/26/2024 3:00 PM EST Office [place] [phone] Apurva Vivas MD [facility] [place] [address] Scheduled Procedures Name Priority Associated Diagnoses Date/Ti me ANORECTAL EXAM, REQUIRING ANESTHESIA, DIAGNOSTIC (WRVU 1.8) perianal crohns disease w/fistula 04/01/2024 12:35 PM EST SURGICAL TREATMENT OF ANAL FISTULA COMPLEX OR MULTIPLE W\WO SETON PLACEMENT (WRVU 6.39) perianal crohns disease w/fistula 04/01/2024 12:35 PM EST documented as of this encounter Visit Diagnoses Not on filedocumented in this encounter Care Teams Director Banking Relationship Specialty Start Date End Date Ebenezer Way MD [address] [place] [address] PCP - General 02/05/10 04/22/11 documented as of this encounter
--- OUTSIDE RECORDS SUMMARY | 2024-03-10 02:03 | XMS_ITS | Encounter Summary ---
[place] [address] Care Team Providers Care Director Packaging Name Role Phone Ebenezer Way MD Primary Care Provider Reason for Visit * Reason Onset Date Comments Prior Authorization 02/21/2011 Botox for Hy perhidrosis Encounter Details Date Type Department Care Team (Late st Contact Info) Description 02/21/2011 Telephone [place] [address] Bharathi Foote MD [facility] DR [facility] [place] [id number] Prior Authorization (Botox for Hyperhidrosis) Social History Tobacco Use Types Packs/Day Years [...] Miscellaneous Notes * Telephone Encounter - Marielle Verduzco - 02/21/2011 4:22 PM EST Prior Authorization Patient: Igor Woodruff : 1975 Insurance Company: [facility] Medication: Botox for Hyperhidrosis Prior Authorization Status: I spoke with Oriana from [facility] and Igoryvrose Woodruff does not need a priorauthorization for botox. documented in this encounter Plan of Treatment Upcoming Encounters Date Type Department Care Team (Latest Contact Info) Description 04/01/2024 12:35 PM EST Hospital Encounter [place] [phone] Apurva Vivas MD [facility] [place] [address] 04/01/2024 12:35 PM EST - 04/01/2024 2:17 PM EST Surgery [place] [phone] Apurva Vivas MD [facility] [place] [address] ANORECTAL EXAM, REQUIRING ANESTHESIA, DIAGNOSTIC (WRVU 1.8) 04/26/2024 3:00 PM EST Office Visit [place] [phone] Apurva Vivas MD [facility] [place] [address] Scheduled Procedures Name Priority Associated Diagnoses Date/Ti me ANORECTAL EXAM, REQUIRING ANESTHESIA, DIAGNOSTIC (WRVU 1.8) perianal crohns disease w/fistula 04/01/2024 12:35 PM EST SURGICAL TREATMENT OF ANAL FISTULA COMPLEX OR MULTIPLE W\WO SETON PLACEMENT (WRVU 6.39) perianal crohns disease w/fistula 04/01/2024 12:35 PM EST documented as of this encounter Visit Diagnoses Not on filedocumented in this encounter Care Teams Director Packaging Relationship Specialty Start Date End Date Ebenezer Way MD [address] [address] PCP - General 02/05/10 04/22/11 documented as of this encounter
--- OUTSIDE RECORDS SUMMARY | 2024-03-10 02:03 | XMS_ITS | Encounter Summary ---
[place] [address] Care Team Providers Care Marriage And Family Teacher Name Role Phone Ebenezer Way MD Primary Care Provider [phone] Encounter Details Date Type Department Care Team (Late st Contact Info) Description 04/10/2011 Telephone [place] [phone] Swetha Berry, RN Social History Tobacco Use [...] Miscellaneous Notes * Telephone Encounter - Swetha Le, SYDNEE - 04/10/2011 4:[address] Matamoros: Ramonita MATAMOROS MD 04/04/11 02:47 PM Signed Left a message at Mr. Woodruff at his home phone with lab results. Due to low WBC and elevated LFTs, would like him to stop AZA and then have labs checked again in 2 weeks. Once the labs normalized,will restart AZA at 200 mg PO qd Message left on pt's cell phone asking him to confirm that he received this message documented in this encounter Plan of Treatment Upcoming Encounters Date Type Department Care Team (Latest Contact Info) Description 04/01/2024 12:35 PM EST Hospital Encounter [place] [address] Apurva Vivas MD [facility] [place] [address] 04/01/2024 12:35 PM EST - 04/01/2024 2:17 PM EST Surgery [place] [phone] Apurva Vivas MD [facility] [place] [address] ANORECTAL EXAM, REQUIRING ANESTHESIA, DIAGNOSTIC (WRVU 1.8) 04/26/2024 3:00 PM EST Office Visit [place] [address] Apurva Vivas MD [facility] [place] [address] Scheduled Procedures Name Priority Associated Diagnoses Date/Ti me ANORECTAL EXAM, REQUIRING ANESTHESIA, DIAGNOSTIC (WRVU 1.8) perianal crohns disease w/fistula 04/01/2024 12:35 PM EST SURGICAL TREATMENT OF ANAL FISTULA COMPLEX OR MULTIPLE W\WO SETON PLACEMENT (WRVU 6.39) perianal crohns disease w/fistula 04/01/2024 12:35 PM EST documented as of this encounter Visit Diagnoses Not on filedocumented in this encounter Care Teams Marriage And Family Teacher Relationship Specialty Start Date End Date Ebenezer Way MD [address] [place] [address] PCP - General 02/05/10 04/22/11 documented as of this encounter
--- OUTSIDE RECORDS SUMMARY | 2024-03-10 02:03 | XMS_ITS | Encounter Summary ---
Author Organization Formerly [facility], Later [facility] [place] [address] Care Team Providers Care Sample Builder Name Role Phone Ebenezer Way MD Primary Care Provider [phone] Encounter Details Date Type Department Care Team (Latest Contact Info) Description 10/25/2010 4:52 AM EDT - 10/25/2010 11:59 PM EDT Hospital [place] [phone] Warren Bender MD Crohn's ileitis Discharge Disposition: Home Social History Tobacco Use Types Packs/Day Years Used Date Smoking Tobacco: Never Alcohol Use Standard Drinks/Week Comments Not Asked 0 (1 standard drink = 0.6 oz pur [...] mg by mouth every morning (before breakfast). OXYcodone (ROXICODONE) 5 mg immediate release tablet Take 1 tablet by mouth every 4 hours as needed for Pain. 20 tablet 0 11/01/2010 12/18/2010 docusate sodium (COLACE) 100 mg capsule Take 1 capsule by mouth 2 times daily. To be taken for constipation while taking narcotics for post-op pain 30 capsule 0 11/01/2010 12/18/2010 IMURAN 50 mg tablet TAKE 5 TABLETS (=250MG) BY MOUTH ONCE DAILY 150 tablet 4 07/31/2010 11/01/2010 documented as of this encounter Plan of Treatment Upcoming Encounters Date Type Department Care Team (Latest Contact Info) Description 04/01/2024 12:35 PM EST Hospital Encounter [place] [phone] Apurva Vivas MD [facility] [place] [address] 04/01/2024 12:35 PM EST - 04/01/2024 2:17 PM EST Surgery [place] [phone] Apurva Vivas MD [facility] [place] [address] ANORECTAL EXAM, REQUIRING ANESTHESIA, DIAGNOSTIC (WRVU 1.8) 04/26/2024 3:00 PM EST Office Visit [place] [phone] Apurva Vivas MD [facility] [place] [address] Scheduled Procedures Name Priority Associated Diagnoses Date/Ti me ANORECTAL EXAM, REQUIRING ANESTHESIA, DIAGNOSTIC (WRVU 1.8) perianal crohns disease w/fistula 04/01/2024 12:35 PM EST SURGICAL TREATMENT OF ANAL FISTULA COMPLEX OR MULTIPLE W\WO SETON PLACEMENT (WRVU 6.39) perianal crohns disease w/fistula 04/01/2024 12:35 PM EST documented as of this encounter Procedures Procedure Name Priority Date/Time Associated Diagnosis Comments ABORH TYPE MANUAL Routine 10/25/2010 12: 18 PM EDT DIFFERENTIAL, AUTOMATED Routine 10/25/2010 10:17 AM EDT CREATININE Routine 10/25/2010 10:17 AM EDT Crohn's ileitis ABO/RH TYPING Routine 10/25/2010 10:17 AM EDT CBC (WITH DIFF) Routine 10/25/2010 10:17 AM EDT Crohn's ileitis ANTIBODY SCREEN Routine 10/25/2010 10:17 AM EDT BUN Routine 10/25/2010 10:17 AM EDT Crohn's ileitis HEPATIC FUNCTION PANEL Routine 10/25/2010 10:17 AM EDT TYPE AND SCREEN, SDP (FUTURE SURGERY, [facility] SAME DAY PROGRAM ONLY) Routine 10/25/2010 9:54 AM EDT Crohn's ileitis documented in this encounter Results * REFLEX LAB-ABORH TYPE MANUAL (10/25/2010 12:18 PM EDT) Expires at [id number] on: [id number] CERNER MILLENNIUM ABORH Type A Pos CERNER MILLENNIUM Blood specimen (specimen) 10/25/2010 12:18 PM EDT 10/25/2010 12:18 PM EDT Warren Bender MD BLOOD BANK LAB ORDER CHASE JESENIA LUAIUM * REFLEX LAB-A-DIFF (10/25/2010 10:17 AM EDT) Neutrophil % 63.5 34.0 - 71.0 % CERNER MILLENNIUM Neutrophil Absolute 2.37 1.50 - 6.30 x10(3)/mcL CERNER MILLENNIUM Lymph % 27.1 19.0 - 53.0 % CERNER MILLENNIUM Lymphocytes Abs 1.0 1.0 - 3.6 x10(3)/mcL CERNER MILLENNIUM Monocyte % 7.2 4.0 - 13.0 % CERNER MILLENNIUM Monocyte Abs 0.3 0.2 - 1.0 x10(3)/mcL CERNER MILLENNIUM Eos % 1.9 0.0 - 7.0 % CERNER MILLENNIUM Eosinophils Abs 0.1 0.0 - 0.5 x10(3)/mcL CERNER MILLENNIUM Basophil % 0.3 0.0 - 2.0 % CERNER MILLENNIUM Baso Absolute 0.0 0.0 - 0.2 x10(3)/mcL CERNER MILLENNIUM Immature Gran % 0.00 0.00 - 0.66 % CERNER MILLENNIUM Comment: Immature granulocytes(IG's)percentage and absolute count will include metamyelocytes, myelocytes, and promyelocytes. Blood smears from CBCs yielding IG's will be scanned manually for concordance. If this scan disagrees with the automated IG or if promyelocytes are noted, a manual differential will be performed. Immature Gran Absolute 0.00 0.00 - 0.05 x10(3)/mcL CERNER MILLENNIUM Blood specimen (specimen) 10/25/2010 10:17 AM EDT 10/25/2010 10:35 AM EDT Warren Bender MD HEMATOLOGY ORDERABLE S [facility] * HEPATIC FUNCTION PANEL (10/25/2010 10:17 AM EDT) Protein, Total 6.9 6.4 - 8.3 gm/dL CERNER MILLENNIUM Albumin 4.4 3.2 - 5.2 gm/dL CERNER MILLENNIUM Aspartate Aminotransferase 27 0 - 39 unit/L CERNER MILLENNIUM Alanine Aminotransferase 44 0 - 55 unit/L CERNER MILLENNIUM Alkaline Phosphatase 58 40 - 120 unit/L CERNER MILLENNIUM Bilirubin, Total 1.1 0.2 - 1.3 mg/dL CERNER MILLENNIUM Bilirubin, Direct 0.2 0.0 - 0.3 mg/dL CERNER MILLENNIUM Blood specimen (specimen) 10/25/2010 10:17 AM EDT 10/25/2010 10:35 AM EDT Warren Bender MD CHEMISTRY ORDERABLES Performing Organization Address City/State/[facility] Co de Phone Number CERMARVIN FRAGAENNIUM * REFLEX LAB-ANTIBODY SCREEN (10/25/2010 10:17 AM EDT) Ab Screen Interp Negative [facility] Expires at [id number] on: [id number] [facility] Blood specimen (specimen) 10/25/2010 10:17 AM EDT 10/25/2010 10:35 AM EDT Warren Bender MD BLOOD BANK LAB ORDER CHASE [facility] * REFLEX LAB-ABO/RH TYPING (10/25/2010 10:17 AM EDT) ABORH Type A Pos [facility] Blood specimen (specimen) 10/25/2010 10:17 AM EDT 10/25/2010 10:35 AM EDT Warren Bender MD BLOOD BANK LAB ORDER CHASE Performing Organization Address City/[facility] Co de Phone Number [facility] * Creatinine, serum (10/25/2010 10:17 AM EDT) Creatinine 0.93 0.80 - 1.50 mg/dL [facility] Est Glomerular Filtration Rate >60 >=60 [facility] Comment: The National Kidney Disease Education Program (NKDEP) has recommended all laboratories report estimated GFR (eGFR) along with plasma creatinine measurements to assist you with recognition of early kidney disease. Caveats: ??Plasma creatinine should be at steady-state (unchanged within the past week). For patients multiply eGFR by 1.2.MDRD equation has not been validated for pediatric patients and is only valid for patients with age >= 18 years. At present, NKDEP does NOT recommend using the MDRD equation for drug dosing purposes and pharmacists should continue to use their current dosing methods. In addition, numerical eGFR values greater than 60 ml/min/1.73 square meters should be treated as > 60, and not an exact number due to greater inaccuracies at these higher values. Per NKDEP, they classify normal renal function as any GFR >60ml/min/1.73 square meters; chronic kidney disease when GFR <60, and renal failure when GFR <15. ??This calculation may not be valid for patients with atypical muscle mass (very lean or obese), acute renal failure, and in patients with diabetic kidney disease. References: http://nkdep.nih.gov/resources/NKDEP_Suggestn4Labs_0606_508.pdf http://www.kidney.org/professionals/kls/pdf/faq_gfr.pdf Blood specimen (specimen) 10/25/2010 10:17 AM EDT 10/25/2010 10:35 AM EDT Warren Bender MD CHEMISTRY ORDERABLES Performing Organization Address [facility] de Phone Number CERMARVIN MILLENNIUM * BUN (10/25/2010 10:17 AM EDT) Blood Urea Nitrogen 15 10 - 20 mg/dL CERNER MILLENNIUM Blood specimen (specimen) 10/25/2010 10:17 AM EDT 10/25/2010 10:35 AM EDT Warren Bender MD CHEMISTRY ORDERABLES Performing Organization Address [facility] Co de Phone Number CERMARVIN MILLENNIUM * (ABNORMAL) CBC (with Diff) (10/25/2010 10:17 AM EDT) White Blood Cell 3.7(L) 4.0 - 10.0 x10(3)/mc L CERNER MILLENNIUM Red Blood Cell 4.58(L) 4.63 - 6.08 x10(6)/mc L CERNER MILLENNIUM Hemoglobin 14.7 13.7 - 17.5 gm/dL CERNER MILLENNIUM Hematocrit 41.1 40.0 - 51.0 % CERNER MILLENNIUM Mean Cell Volume 89.7 79.0 - 92.0 fL CERNER MILLENNIUM Mean Cell Hemoglobin 32.1 25.6 - 32.2 pg CERNER MILLENNIUM Mean Cell Hemoglobin Concentration 35.8 32.0 - 36.5 gm/dL CERNER MILLENNIUM Platelet 222 145 - 370 x10(3)/mc L CERNER MILLENNIUM RDW Standard Deviation 45.0 35.0 - 46.0 fL JESENIA FRAGAENNIUM RDW coefficient of variation 13.7 10.9 - 14.4 % JESENIA FRAGAENNIUM Mean Platelet Volume 9.9 9.0 - 12.0 fL JESENIA FRAGAENNIUM Blood specimen (specimen) 10/25/2010 10:17 AM EDT 10/25/2010 10:35 AM EDT Warren Bender MD HEMATOLOGY ORDERABLE S [facility] GOL[facility]ERG documented in this encounter Visit Diagnoses Diagnosis Crohn's ileitis Regional enteritis of small intestine documented in this encounter Care Teams Sample Builder Relationship Specialty Start Date End Date Ebenezer [address] MD [address] [place] [address] PCP - General 02/05/10 04/22/11 documented as of this encounter
--- OUTSIDE RECORDS SUMMARY | 2024-03-10 02:03 | XMS_ITS | Encounter Summary ---
Author Organization [facility] Address [facility] [place] [address] Care Team Providers Care Blog Writer Name Role Phone Irwin Gonsalez DO Primary Care Provider [phone] Encounter Details Date Type Department Care Team (Latest Contact Info) Description 05/01/2011 9:32 AM EST - 05/01/2011 11:[address] [facility] Hospital [place] [phone] Ramonita Pandey MD [facility] [place] [address] IBD (inflammatory bowel disease) Discharge Disposition: Home Social History Tobacco Use [...] morning (before breakfast). azaTHIOprine (IMURAN) 50 mg tabletIndications:IBD (inflammatory bowel disease) Take 5 tablets by mouth daily. 150 tablet 3 12/26/2010 07/14/2011 Cholestyramine-Aspartam e (QUESTRAN LIGHT) 4 gram Powd Take 1 scoop by mouth every morning. 239.4 g 12 11/04/2010 11/08/2012 documented as of this encounter Plan of Treatment Upcoming Encounters Date Type Department Care Team (Latest Contact Info) Description 04/01/2024 12:35 PM EST Hospital Encounter [place] [phone] Apurva Vivas MD [facility] [place] [address] 04/01/2024 12:35 PM EST - 04/01/2024 2:17 PM EST Surgery [place] [phone] Apurva Vivas MD [facility] [place] [address] ANORECTAL EXAM, REQUIRING ANESTHESIA, DIAGNOSTIC (WRVU 1.8) 04/26/2024 3:00 PM EST Office [place] [phone] Apurva Vivas MD [facility] [place] [address] Scheduled Procedures Name Priority Associated Diagnoses Date/Ti me ANORECTAL EXAM, REQUIRING ANESTHESIA, DIAGNOSTIC (WRVU 1.8) perianal crohns disease w/fistula 04/01/2024 12:35 PM EST SURGICAL TREATMENT OF ANAL FISTULA COMPLEX OR MULTIPLE W\WO SETON PLACEMENT (WRVU 6.39) perianal crohns disease w/fistula 04/01/2024 12:35 PM EST documented as of this encounter Procedures Procedure Name Priority Date/Time Associated Diagnosis Comments DIFFERENTIAL, AUTOMATED Routine 05/01/2011 9:44 AM EST CBC (WITH DIFF) Routine 05/01/2011 9:44 AM EST IBD (inflammatory bowel disease) HEPATIC FUNCTION PANEL Routine 05/01/2011 9:44 AM EST IBD (inflammatory bowel disease) documented in this encounter Results * DIFFERENTIAL, AUTOMATED (05/01/2011 9:44 AM EST) Neutrophil % 50.3 34.0 - 71.0 % CERNER MILLENNIUM Neutrophil Absolute 1.76 1.50 - 6.30 x10(3)/mcL CERNER MILLENNIUM Lymph % 38.0 19.0 - 53.0 % CERNER MILLENNIUM Lymphocytes Abs 1.3 1.0 - 3.6 x10(3)/mcL CERNER MILLENNIUM Monocyte % 10.3 4.0 - 13.0 % CERNER MILLENNIUM Monocyte [...] 0.05 x10(3)/mcL CERNER MILLENNIUM Blood specimen (specimen) 05/01/2011 9:44 AM EST 05/01/2011 9:48 AM EST L Timothy Pandey MD HEMATOLOGY ORDERABLE S CERNER PHILLYENNIUM * (ABNORMAL) Hepatic Function Panel (05/01/2011 9:44 AM EST) Pathologist [facility] Protein, Total 7.2 6.4 - 8.3 gm/dL CERNER MILLENNIUM Albumin 4.5 3.2 - 5.2 gm/dL CERNER MILLENNIUM Aspartate Aminotransferase 35 0 - 39 unit/L CERNER MILLENNIUM Alanine Aminotransferase 56(H) 0 - 55 unit/L CERNER MILLENNIUM Alkaline Phosphatase 76 40 - 120 unit/L CERNER MILLENNIUM Bilirubin, Total 2.0(H) 0.2 - 1.3 mg/dL CERNER MILLENNIUM Bilirubin, Direct 0.3 0.0 - 0.3 mg/dL CERNER MILLENNIUM Blood specimen (specimen) 05/01/2011 9:44 AM EST 05/01/2011 9:48 AM EST L Timothy Pandey MD CHEMISTRY ORDERABLES CERNER MILLENNIUM * (ABNORMAL) CBC (with Diff) (05/01/2011 9:44 AM EST) White Blood Cell 3.5(L) 4.0 - 10.0 x10(3)/mc L CERNER MILLENNIUM Red Blood Cell 4.97 4.63 - 6.08 x10(6)/mc L CERNER MILLENNIUM Hemoglobin 15.2 13.7 - 17.5 gm/dL CERNER MILLENNIUM Hematocrit 42.5 40.0 - 51.0 % CERNER MILLENNIUM Mean Cell Volume 85.5 79.0 - 92.0 fL CERNER MILLENNIUM Mean Cell Hemoglobin 30.6 25.6 - 32.2 pg CERNER MILLENNIUM Mean Cell Hemoglobin Concentration 35.8 32.0 - 36.5 gm/dL CERNER MILLENNIUM Platelet 231 145 - 370 x10(3)/mc L CERNER MILLENNIUM RDW Standard Deviation 42.0 35.0 - 46.0 fL CERNER MILLENNIUM RDW coefficient of variation 13.5 10.9 - 14.4 % CERNER MILLENNIUM Mean Platelet Volume 9.7 9.0 - 12.0 fL CERNER MILLENNIUM Blood specimen (specimen) 05/01/2011 9:44 AM EST 05/01/2011 9:48 AM EST L Timothy Pandey MD HEMATOLOGY ORDERABLE S Performing Organization Address City/State/[facility] Co de Phone Number [facility] documented in this encounter Visit Diagnoses Diagnosis IBD (inflammatory bowel disease) Other and unspecified noninfectious gastroenteritis and colitis documented in this encounter Care Teams Blog Writer Relationship Specialty Start Date End Date Irwin Gonsalez DO [address] [place] [address] PCP - General 05/01/11 documented as of this encounter
--- OUTSIDE RECORDS SUMMARY | 2024-03-10 02:03 | XMS_ITS | Encounter Summary ---
Author Organization [facility] [place] [address] Care Team Providers Care Bookkeeping Clerk Name Role Phone Ebenezer Zarate MD Primary Care Provider [phone] Reason for Visit * Reason Comments Crohn's Disease follow-up surgery Encounter Details Date Type Department Care Team (Late st Contact Info) Description 12/18/2010 8:00 AM EDT [place] [address] Ramonita Pandey MD [facility] [place] [address] Crohn's ileitis (Primary Dx) Discharge Disposition: Home Social History [...] Sign Reading Time Taken Comments Blood Pressure 122/86 12/18/2010 8:19 AM EDT Pulse - - Temperature - - Respiratory Rate - - Oxygen Saturation - - Inhaled Oxygen Concentration - - Weight 98.4 kg (217 lb) 12/18/2010 8:19 AM EDT Height - - Body Mass Index 28.63 10/29/2010 6:41 AM EDT documented in this encounter Patient Instructions * Patient Instructions* Ramonita Pandey MD - 12/18/2010 8:36 AM EDT # Restart azathioprine 250 mg per day # Today check complete blood count, liver tests, vit D levels, C-reactive protein, and vit B12 levels # Assuming labs are normal, please recheck labs in 4 weeks. If those are normal, then we will resume every 3 month labs # We should plan on colonoscopy no more than 6 months following surgery - April 2011 # Return to follow-up with me in 3 months documented in this encounter Progress Notes * Ramonita Pandey MD - 12/18/2010 8:32 AM EDT PROBLEM LIST ??? Crohn's ileitis diagnosed at age 17 yo S/p ileocolic resection 10/29/10 - 19.5 cm of terminal ileum with active inflammation, fibrosis and an enteroenteric fistula. SBFT 01/23 - persistent terminal ileal stricture as described above, consistent with the history ofCrohn's, with additional adjacent entero-enteric fistula, findings similar to the prior 2008 study Colonoscopy 02/28/10: Stricture and pseudopolyps likely at [...] see me for the first time since ileocolonic resection on 10/29/10. He had 19.5 cm of ileum removed. 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 He has been feeling very well. Immediately following the surgery he had loose stool up to 12 times per day. He was started on cholestyramine one scoop each morning about one week following the surgery with near immediate improvement in his stooling. He is now moving his bowels 2-3 times per dayfor formed stool without diarrhea, blood, or constipation. He is eating well. His weight was down about 6-7 pounds around surgery. He has a good appetite without any dietary restrictions, and weight o jose the last several weeks has been stable. He has been back to work for about 5 weeks. There is noabdominal cramping which is an improvement since the surgery. He feels generally he has more energy. Current medictions include Nexium 40 mg PO qd and cholestyramine one scoop each morning. He has been off of azathioprine since the day prior to surgery. Review of Systems Constitutional: Negative for fever, fatigue and unexpected weight change. HENT: Negative for mouth sores. Eyes: Negative for pain and redness. Respiratory: Negative for cough and shortness of breath. Cardiovascular: Negative for chest pain and palpitations. Gastrointestinal: Negative for nausea, vomiting, abdominal pain, diarrhea, constipation, blood in stool and abdominal distention. Genitourinary: Negative. No perianal lesions, drainage, or pain. This has not been an issue in the past either. Musculoskeletal: Negative. Skin: Negative. Objective: Physical Exam Vitals reviewed. Constitutional: He [...] He exhibits no distension and no mass. No tenderness. He has no rebound and no guarding. Midline periumbilical surgical incision and several tochar incision sites all appear well-healed, non-tender, without discharge Musculoskeletal: He exhibits no edema. Neurological: He is alert. Skin: Skin is warm and dry. No rash noted. Lab Results Component Value Date WBC 4.7 11/01/2010 RBC 3.98* 11/01/2010 HGB 12.8* 11/01/2010 HCT 34.7* 11/01/2010 MCV 87.2 11/01/2010 MCH 32.2 11/01/2010 MCHC 36.9* 11/01/2010 PLATELET 179 11/01/2010 RDWCV 13.6 11/01/2010 Lab Results Component Value Date ALT 42 10/30/2010 AST 33 10/30/2010 ALKPHOS 45 10/30/2010 BILITOT 1.4* 10/30/2010 Assessment and Plan: Mr. Woodruff has had an excellent recovery from his surgery and is now in complete symptomatic remission. We discussed the pros and cons of restarting therapy directed at Crohn's disease. We discussed that that recurrence rate at the anastomosis is approximately 80%, and, conversely, 20% of peoplemay have a prolonged clinical remission with surgery alone off of medications. This is best estimated by surveillance for active disease at the site of surgery post- operatively. Therefore, I recommended colonoscopy at 6 months and again at one year. There may be some benefit to starting post-operative prophylaxis earlier following surgery knowing that a significant proportion of patients have hist ologic and endoscopic changes as early as six months, but there are no compelling data to support this. That said, he had a significant burden of disease with fibrosis and penetration. Based on his SBFT from years ago, I suspect that this was a slow progression. Therefore, I do not think that azathi oprine failed but, rather, may have been started too late. After discussion of these points we elected to go ahead and restart it. He tolerated it well without problems. We will still plan on post-operative restaging in the event that he has a recurrence despite azathioprine in which case we would consider other therapies. With these thoughts in mind we discussed the following plan and the patient was given the followingwritten instructions: # Restart azathioprine 250 mg per day. Wt based dose of 2.5 mg/kg at his current weight is 245 mg. # Today check complete blood count, liver tests, vit D levels, C-reactive protein, and vit B12 levels # Assuming labs are normal, please recheck CBC, LFTs, CRP 4 weeks. If those are normal, then we will resume every 3 month labs # We should plan on colonoscopy no more than 6 months following surgery - April 2011 # Return to follow-up with me in 3 months Angeol Pandey MD Basket Assemblerdepartment chairperson Section of Gastroenterology [place] [address] CC: EBENEZER ZARATE MD [address] [place] [id number] TORITO MOHAN MD [facility] [place] COLON AND RECTAL SURGERY documented in this encounter Plan of Treatment Upcoming Encounters Date Type Department Care Team (Latest Contact Info) Description 04/01/2024 12:35 PM EST Hospital Encounter [place] [address] Apurva Vivas MD [facility] [place] [address] 04/01/2024 12:35 PM EST - 04/01/2024 2:17 PM EST Surgery [place] [address] Apurva Vivas MD [facility] [place] [address] ANORECTAL EXAM, REQUIRING ANESTHESIA, DIAGNOSTIC (WRVU 1.8) 04/26/2024 3:00 PM EST Office [place] [phone] Apurva Vivas MD [facility] [place] [address] Scheduled Procedures Name Priority Associated Diagnoses Date/Ti me ANORECTAL EXAM, REQUIRING ANESTHESIA, DIAGNOSTIC (WRVU 1.8) perianal crohns disease w/fistula 04/01/2024 12:35 PM EST SURGICAL TREATMENT OF ANAL FISTULA COMPLEX OR MULTIPLE W\WO SETON PLACEMENT (WRVU 6.39) perianal crohns disease w/fistula 04/01/2024 12:35 PM EST documented as of this encounter Procedures Procedure Name Priority Date/Time Associated Diagnosis Comments DIFFERENTIAL, AUTOMATED Routine 12/18/2010 9:32 AM EDT 1,25-DIHYDROXYCHOLE CALCIFEROL Routine 12/18/2010 9:32 AM EDT Crohn's ileitis CBC (WITH DIFF) Routine 12/18/2010 9:32 AM EDT Crohn's ileitis CRP, CARDIAC RISK (HS CRP) Routine 12/18/2010 9:32 AM EDT Crohn's ileitis VITAMIN B12 Routine 12/18/2010 9:32 AM EDT Crohn's ileitis HEPATIC FUNCTION PANEL Routine 12/18/2010 9:32 AM EDT Crohn's ileitis documented in this encounter Results * A-DIFF (12/18/2010 9:32 AM EDT) Neutrophil % 64.8 34.0 - 71.0 % CERNER MILLENNIUM Neutrophil Absolute 3.38 1.50 - 6.30 x10(3)/mcL CERNER MILLENNIUM Lymph % 28.4 19.0 - 53.0 % CERNER MILLENNIUM Lymphocytes Abs 1.5 1.0 - 3.6 x10(3)/mcL CERNER MILLENNIUM Monocyte % 5.8 4.0 - 13.0 % CERNER MILLENNIUM Monocyte Abs 0.3 0.2 - 1.0 x10(3)/mcL CERNER MILLENNIUM Eos % 0.8 0.0 - 7.0 % CERNER MILLENNIUM Eosinophils [...] Gran Absolute 0.00 0.00 - 0.05 x10(3)/mcL [facility] Blood specimen (specimen) 12/18/2010 9:32 AM EDT 12/18/2010 9:45 AM EDT Ramonita Pandey MD HEMATOLOGY ORDERABLE S Performing Organization Address [facility] Co de Phone Number [facility] * Vitamin D 1,25 Dihydroxy (12/18/2010 9:32 AM EDT) Vit D 1,25 Dihydroxy (JULY) 55 18 - 64 pg/mL [facility] Comment: Test Performed by: [facility] Dpt of Lab Med and Pathology [address] [place] [address] Medical Engineer: Morgan Ding III, M.D. Blood specimen (specimen) 12/18/2010 9:32 AM EDT 12/18/2010 10:47 AM EDT Ramonita Pandey MD LAB SEND OUT ORDERAB LES Performing Organization Address [facility] de Phone Number [facility] * Vitamin B12 (12/18/2010 9:32 AM EDT) Vitamin B12 664 207 - 974 pg/mL [facility] Blood specimen (specimen) 12/18/2010 9:32 AM EDT 12/18/2010 9:45 AM EDT Ramonita Pandey MD CHEMISTRY ORDERABLES Performing Organization Address [facility] de Phone Number [facility] * High Sensitivity CRP (12/18/2010 9:32 AM EDT) C-Reactive Protein High Sensitivity 1.3 mg/L [facility] Comment: Interpretations: 1) For cardiac risk assessment, two values (fasting or nonfasting sample acceptable) taken at least 2 weeks apart, should be averaged to provide a more reliable estimate of marker level. ??This laboratory uses the recommendations from the AHA/CDC Scientific Statement for interpretations of future risks of cardiovascular events: ? <1.0 mg/L: low risk 1.0 - 3.0 mg/L: moderate risk >3.0 mg/L: high risk groups for future cardiovascular events 2) The general reference range of apparently healthy individuals using this test is <5.0 mg/L (derived from the test package insert) A few words of caution: For cardiac assessment, when a value >10 mg/L is encountered, there should be a search for an acute inflammatory condition or infection (in patients with acute inflammation, the concentration can increase to >500 mg/L). ??The >10 mg/L should be discarded if such a situation exists, since the risk for coronary heart disease cannot be provided, and a repeat specimen, taken at least two weeks after resolution of the acute inflammatory condition, may allow for appraisal of coronary risk information. References: 1. Page HARTMAN et. al. ??AHA/CDC Scientific Statement: Markers of Inflammation and Cardiovascular Disease. ??Circulation 2003; 107:499-511 2. Shahram PM. ??Clinical applications of C-reactive protein for cardiovascular disease detection and prevention. ??Circulation 2003; 107:363-369 Blood specimen (specimen) 12/18/2010 9:32 AM EDT 12/18/2010 9:45 AM EDT L Timothy Pandey MD CHEMISTRY ORDERABLES [facility] * Hepatic Function Panel (12/18/2010 9:32 AM EDT) Protein, Total 7.0 6.4 - 8.3 gm/dL CERNER MILLENNIUM Albumin 4.3 3.2 - 5.2 gm/dL CERNER MILLENNIUM Aspartate Aminotransferase 25 0 - 39 unit/L CERNER MILLENNIUM Alanine Aminotransferase 40 0 - 55 unit/L CERNER MILLENNIUM Alkaline Phosphatase 75 40 - 120 unit/L CERNER MILLENNIUM Bilirubin, Total 1.0 0.2 - 1.3 mg/dL CERNER MILLENNIUM Bilirubin, Direct 0.2 0.0 - 0.3 mg/dL CERNER MILLENNIUM Blood specimen (specimen) 12/18/2010 9:32 AM EDT 12/18/2010 9:45 AM EDT L Timothy Pandey MD CHEMISTRY ORDERABLES Performing Organization Address City/[facility] Co de Phone Number CERMARVIN LUAIUM * CBC (with Diff) (12/18/2010 9:32 AM EDT) White Blood Cell 5.2 4.0 - 10.0 x10(3)/mcL CERNER MILLENNIUM Red Blood Cell 4.85 4.63 - 6.08 x10(6)/mcL CERNER MILLENNIUM Hemoglobin 14.8 13.7 - 17.5 gm/dL CERNER MILLENNIUM Hematocrit 40.7 40.0 - 51.0 % CERNER MILLENNIUM Mean Cell Volume 83.9 79.0 - 92.0 fL CERNER MILLENNIUM Mean Cell Hemoglobin 30.5 25.6 - 32.2 pg CERNER MILLENNIUM Mean Cell Hemoglobin Concentration 36.4 32.0 - 36.5 gm/dL CERNER MILLENNIUM Platelet 211 145 - 370 x10(3)/mcL CERNER MILLENNIUM RDW Standard Deviation 38.6 35.0 - 46.0 fL CERNER MILLENNIUM RDW coefficient of variation 12.9 10.9 - 14.4 % CERNER MILLENNIUM Mean Platelet Volume 9.6 9.0 - 12.0 fL CERNER MILLENNIUM Blood specimen (specimen) 12/18/2010 9:32 AM EDT 12/18/2010 9:45 AM EDT L Timothy Pandey MD HEMATOLOGY ORDERABLE S Performing Organization Address City/[facility]/ZIP Co de Phone Number JESENIA GOLDBERG documented in this encounter Visit Diagnoses Diagnosis Crohn's ileitis- Primary Regional enteritis of small intestine documented in this encounter Care Teams Bookkeeping Clerk Relationship Specialty Start Date End Date Ebenezer Zarate MD [address] [place] [address] PCP - General 02/05/10 04/22/11 documented as of this encounter
--- OUTSIDE RECORDS SUMMARY | 2024-03-10 02:03 | XMS_ITS | Encounter Summary ---
Author Organization [facility] [place] [address] Care Team Providers Care Master Sheet Clerk Name Role Phone Ebenezer Way MD Primary Care Provider Encounter Details Date Type Department Care Team (Late st Contact Info) Description 10/04/2010 Orders [place] [phone] Warren Bender MD Crohn's ileitis Social History Tobacco Use Types Packs/Day Years [...] PM EST Hospital Encounter [place] [phone] Apurva Vivas MD [facility] [place] [address] 04/01/2024 12:35 PM EST - 04/01/2024 2:17 PM EST Surgery Main Operating Room [facility] [place] [address] Apurva Vivas MD [facility] [place] [address] ANORECTAL EXAM, REQUIRING ANESTHESIA, DIAGNOSTIC (WRVU 1.8) 04/26/2024 3:00 PM EST Office [place] [phone] Apurva Vivas MD [facility] [place] [address] Scheduled Procedures Name Priority Associated Diagnoses Date/Ti me ANORECTAL EXAM, REQUIRING ANESTHESIA, DIAGNOSTIC (WRVU 1.8) perianal crohns disease w/fistula 04/01/2024 12:35 PM EST SURGICAL TREATMENT OF ANAL FISTULA COMPLEX OR MULTIPLE W\WO SETON PLACEMENT (WRVU 6.39) perianal crohns disease w/fistula 04/01/2024 12:35 PM EST documented as of this encounter Visit Diagnoses Diagnosis Crohn's ileitis Regional enteritis of small intestine documented in this encounter Care Teams Master Sheet Clerk Relationship Specialty Start Date End Date Ebenezer Way MD [address] [address] PCP - General 02/05/10 04/22/11 documented as of this encounter
--- OUTSIDE RECORDS SUMMARY | 2024-03-10 02:03 | XMS_ITS | Encounter Summary ---
Author Organization [facility] Address [facility] [place] [address] Care Team Providers Care Paleologist Name Role Phone None Primary Care Provider Unavailabl e Encounter Details Date Type Department Care Team (Late st Contact Info) Description 04/28/2011 Orders [place] [phone] Ramonita Pandey MD [facility] [place] [address] IBD (inflammatory bowel disease) (Primary Dx) Social History Tobacco Use Types [...] PM EST Hospital Encounter Main [place] [phone] Apurva Vivas MD [facility] [place] [address] 04/01/2024 12:35 PM EST - 04/01/2024 2:17 PM EST Surgery [place] [address] Apurva Vivas MD [facility] [place] [address] ANORECTAL EXAM, REQUIRING ANESTHESIA, DIAGNOSTIC (WRVU 1.8) 04/26/2024 3:00 PM EST Office [place] [phone] Apurva Vivas MD [facility] [place] [address] Scheduled Procedures Name Priority Associated Diagnoses Date/Ti me ANORECTAL EXAM, REQUIRING ANESTHESIA, DIAGNOSTIC (WRVU 1.8) perianal crohns disease w/fistula 04/01/2024 12:35 PM EST SURGICAL TREATMENT OF ANAL FISTULA COMPLEX OR MULTIPLE W\WO SETON PLACEMENT (WRVU 6.39) perianal crohns disease w/fistula 04/01/2024 12:35 PM EST documented as of this encounter Results * (ABNORMAL) Hepatic Function Panel (05/01/2011 9:44 AM EST) Protein, Total 7.2 6.4 - 8.3 gm/dL [...] EST L Timothy Pandey MD CHEMISTRY ORDERABLES JESENIA GOLDBERG * (ABNORMAL) CBC (with Diff) (05/01/2011 9:44 [...] encounter Visit Diagnoses Diagnosis IBD (inflammatory bowel disease)- Primary Other and unspecified noninfectious gastroenteritis and colitis documented in this encounter Care Teams Paleologist Relationship Specialty Start Date End Date None None PCP - General 04/23/11 04/30/11 documented as of this encounter
--- OUTSIDE RECORDS SUMMARY | 2024-03-10 02:03 | XMS_ITS | Encounter Summary ---
[place] [address] Care Team Providers Care Instructor Physical Education Name Role Phone None Primary Care Provider Unavailabl e Encounter Details Date Type Department Care Team (Late st Contact Info) Description 04/28/2011 Telephone [place] [phone] Swetha Berry, RN Social History Tobacco Use [...] Telephone Encounter - Swetha Le RN - 04/28/2011 10:35 AM EST Finally able to connect with Igor. He did stop Aza as directed by Dr Pandey. Has not had labs redrawn. Will be here at [facility] this week for a colo. Will have bloodwork then. documented in this encounter Plan of Treatment Upcoming Encounters Date Type Department Care Team (Latest Contact Info) Description 04/01/2024 12:35 PM EST Hospital Encounter [place] [address] Apurva Vivas MD [facility] [place] [address] 04/01/2024 12:35 PM EST - 04/01/2024 2:17 PM EST Surgery [place] [address] Apurva Vivas MD [facility] [place] [address] ANORECTAL EXAM, REQUIRING ANESTHESIA, DIAGNOSTIC (WRVU 1.8) 04/26/2024 3:00 PM EST Office [place] [address] Apurva Vivas MD [facility] [place] [address] Scheduled Procedures Name Priority Associated Diagnoses Date/Ti me ANORECTAL EXAM, REQUIRING ANESTHESIA, DIAGNOSTIC (WRVU 1.8) perianal crohns disease w/fistula 04/01/2024 12:35 PM EST SURGICAL TREATMENT OF ANAL FISTULA COMPLEX OR MULTIPLE W\WO SETON PLACEMENT (WRVU 6.39) perianal crohns disease w/fistula 04/01/2024 12:35 PM EST documented as of this encounter Visit Diagnoses Not on filedocumented in this encounter Care Teams Instructor Physical Education Relationship Specialty Start Date End Date None None PCP - General 04/23/11 04/30/11 documented as of this encounter
--- OUTSIDE RECORDS SUMMARY | 2024-03-10 02:03 | XMS_ITS | Encounter Summary ---
Author Organization [facility] [place] [address] Care Team Providers Care Conference Center Manager Name Role Phone Irwin Gonsalez DO Primary Care Provider [phone] Encounter Details Date Type Department Care Team (Late st Contact Info) Description 05/19/2011 External Results [place] [phone] Ramonita Pandey MD [facility] [place] [address] Social History Tobacco Use Types Packs/Day Years [...] PM EST Hospital Encounter [place] [phone] Apurva Vivas MD [facility] [place] [address] 04/01/2024 12:35 PM EST - 04/01/2024 2:17 PM EST Surgery [place] [phone] Apurva Vivas MD [facility] [place] [address] ANORECTAL EXAM, REQUIRING ANESTHESIA, DIAGNOSTIC (WRVU 1.8) 04/26/2024 3:00 PM EST Office Visit [place] [phone] Apurva Vivas MD [facility] [place] [address] Scheduled Procedures Name Priority Associated Diagnoses Date/Ti me ANORECTAL EXAM, REQUIRING ANESTHESIA, DIAGNOSTIC (WRVU 1.8) perianal crohns disease w/fistula 04/01/2024 12:35 PM EST SURGICAL TREATMENT OF ANAL FISTULA COMPLEX OR MULTIPLE W\WO SETON PLACEMENT (WRVU 6.39) perianal crohns disease w/fistula 04/01/2024 12:35 PM EST documented as of this encounter Procedures Procedure Name Priority Date/Time Associated Diagnosis Comments LAB SCAN Routine 05/18/2011 documented in this encounter Results * Scan Doc: Lab (05/18/2011) L Timothy Pandey MD MEDIA MGR SCAN EXT O RDR/RSLT documented in this encounter Visit Diagnoses Not on filedocumented in this encounter Care Teams Conference Center Manager Relationship Specialty Start Date End Date Irwin Gonsalez DO [address] [place] [address] PCP - General 05/01/11 documented as of this encounter
--- OUTSIDE RECORDS SUMMARY | 2024-03-10 02:03 | XMS_ITS | Encounter Summary ---
[place] [address] Care Team Providers Care Biomedical Photographer Name Role Phone Ebenezer Way MD Primary Care Provider Encounter Details Date Type Department Care Team (Late st Contact Info) Description 07/02/2010 Abstract [place] [phone] Ramonita Pandey MD [facility] [place] [address] Social History Tobacco Use Types Packs/Day Years Used Date Smoking Tobacco: Never Assessed Sex and Gender Information Value Date Recorded Sex Assigned at Male 06/08/2023 4:49 PM EDT Gender Identity Not on file Sexual Orientation Not on file documented as of this encounter Plan of Treatment Upcoming Encounters Date Type Department Care Team (Latest Contact Info) Description 04/01/2024 12:35 PM EST Hospital Encounter [place] [phone] Apurva Vivas MD [facility] [place] [address] 04/01/2024 12:35 PM EST - 04/01/2024 2:17 PM EST Surgery [place] [address] Apurva Vivas MD [facility] [place] [address] ANORECTAL EXAM, REQUIRING ANESTHESIA, DIAGNOSTIC (WRVU 1.8) 04/26/2024 3:00 PM EST Office [place] [phone] Apurva Vivas MD [facility] [place] [address] Scheduled Procedures Name Priority Associated Diagnoses Date/Ti me ANORECTAL EXAM, REQUIRING ANESTHESIA, DIAGNOSTIC (WRVU 1.8) perianal crohns disease w/fistula 04/01/2024 12:35 PM EST SURGICAL TREATMENT OF ANAL FISTULA COMPLEX OR MULTIPLE W\WO SETON PLACEMENT (WRVU 6.39) perianal crohns disease w/fistula 04/01/2024 12:35 PM EST documented as of this encounter Visit Diagnoses Not on filedocumented in this encounter Care Teams Biomedical Photographer Relationship Specialty Start Date End Date Ebenezer Way MD [address] [address] PCP - General 02/05/10 04/22/11 documented as of this encounter
--- OUTSIDE RECORDS SUMMARY | 2024-03-10 02:03 | XMS_ITS | Encounter Summary ---
[place] [address] Care Team Providers Care Scientist Name Role Phone Ebenezer Way MD Primary Care Provider [phone] Encounter Details Date Type Department Care Team (Latest Contact Info) Description 10/29/2010 6:06 AM EDT - 11/01/2010 11:34 AM EDT Hospital Encounter [address] [place] [id number] Torito Mohan MD Discharge Disposition: Home Social History Tobacco Use [...] Sign Reading Time Taken Comments Blood Pressure 151/96 11/01/2010 7:30 AM EDT Pulse 84 11/01/2010 7:30 AM EDT Temperature 36.4 ??C (97.5 ??F) 11/01/2010 7:30 AM ED T Respiratory Rate 18 11/01/2010 7:30 AM EDT Oxygen Saturation 97% 11/01/2010 7:30 AM EDT Inhaled Oxygen Concentration - - Weight 100.6 kg (221 lb 12.5 oz) 10/29/2010 6:52 AM EDT Height 185.4 cm (6' 1) 10/29/2010 6:41 AM EDT Body Mass Index 29.26 10/29/2010 6:41 AM EDT documented in this encounter Discharge Instructions * Patient Instructions* Obdulia Son Jose - 11/01/2010 7:54 AM EDT Colon and Rectal Surgery Patient Discharge Instructions Activity level: Avoid heavy lifting for the next 4 weeks or until cleared to do so at follow-up appointment. Otherwise activity as tolerated by comfort level. Diet: You may resume your regular diet as tolerated. If your doctor has instructed you to have a low residue / low fiber diet then avoid fresh fruits/fresh vegetables (cooked are OK) for 4 weeks. Youshould try and drink 2 liters of fluids daily. Post-Colorectal Surgery Low Residue Diet 1. Drink >2 liters of fluids per day 2. Chew your food thoroughly 3. Eat smaller, more frequent meals 4. Try new foods one at a time to be sure that you can tolerate them 5. Avoid fresh fruits and fresh vegetables (exceptions below) for 4 weeks ?? Cook and canned fruits and vegetables are generally okay ?? Soft fresh fruits such as half an avocado or half a banana are generally okay ?? Fibrous foods should be avoided (even if cooked): apple peels, asparagus, celery, djiboutian vegetables, citrus pulp, coconut, mushrooms, popcorn, nuts, seeds, wild rice, whole kernel corn, and the skins of fruit and many other difficult to digest and pass foods should be avoided ?? If uncertain about a food, eat it in moderation and follow with extra fluid by mouth. Driving: No driving while still taking opioid pain medications (wait at least 6- 8 hours since last dose). No driving if you are still sore from surgery as it may limit your ability to react quickly if necessary. Shower/Bath: You may shower and get incision(s) wet. Pat dry immediately following. Do not scrub them vigorously for the next 2-3 weeks. Do not soak incision(s) for the next 2 weeks (i.e. soaking in bath or swimming) as this may promote a wound infection. Wound Care: Wash incision with soap and water, pat dry, and leave open to air. Allow steri-strips (pieces of tape) to fall off on their own if you have them. You may cover with gauze as needed to prevent incision rubbing on clothes or for any seepage. If you have skin senait you will need to have them removed in 12-14 days. This can be done by yourPCP or you can come back to the General surgery clinic to have these removed by the General Surgerynurses on 4L (see below). Follow up Appointments: 1. You have a follow-up appointment with the General Surgery Nurses at the [facility] as above for staple removal and wound check. 2. You have a follow up appointment with Dr. Mohan at the [facility] on November 15, at 4:00 PM. You will receive a phone call and/or a letter in the mail with information about your appointments.Please call [phone] (clinic number for appointments only) to confirm date and time of your appointments or if you do not receive information about your appointment in a timely manner. Call your doctor if: You develop any of the following sings or symptoms of infection: o Redness or swelling of your incision (some mild redness around the incision and the staple sites is normal) o Drainage or bleeding from your incision o Fever over 100.5 F o Increased pain or discomfort at the incision site Persistent nausea and/or vomiting or the inability to keep foods or fluids down in a 24 hour period. Signs or symptoms of dehydration: o Dry mouth o Dark, concentrated urine, or lack of urine o Lightheadedness Any other concerning sign or symptom such as shortness or breath, chest pain, pain with urination or other signs of urinary tract infection (UTI), or new leg pain/swelling. Also, please call if you develop increasing abdominal pain, increasing abdominal pain, abdominal firmness, if you stop passinggas or stool for an extended period of time, or bloody bowel movements/vomitting. CALL THE GENERAL SURGERY CLINIC DURING WORKING HOURS AT , OR CALL AFTER CLINIC HOURS, WEEKENDS AND HOLIDAYS: ASK FOR THE SURGERY RESIDENT HOSPICE NURSE IF ANY OF THE ABOVE OCCUR. Post-Colorectal Surgery Low Residue Diet 6. Drink >2 liters of fluids per day 7. Chew your food thoroughly 8. Eat smaller, more frequent meals 9. Try new foods one at a time to be sure that you can tolerate them 10. Avoid fresh fruits and fresh vegetables (exceptions below) for 4 weeks ?? Cook and canned fruits and vegetables are generally okay ?? Soft fresh fruits such as half an avocado or half a banana are generally okay ?? Fibrous foods should be avoided (even if cooked): apple peels, asparagus, celery, djiboutian vegetables, citrus pulp, coconut, mushrooms, popcorn, nuts, seeds, wild rice, whole kernel corn, and the skins of fruit and many other difficult to digest and pass foods should be avoided ?? If uncertain about a food, eat it in moderation and follow with extra fluid by mouth. Igor Woodruff Home Medication Instructions PABLITO:[id number] Printed on:11/01/10 9209 Medication Information esomeprazole (NEXIUM) 20 mg capsule Take 20 mg by mouth every morning (before breakfast). multivitamin (MULTIPLE VITAMIN) tablet Take 1 tablet by mouth daily. OXYcodone (ROXICODONE) 5 mg immediate release tablet Take 1 tablet by mouth every 4 hours as needed for Pain. docusate sodium (COLACE) 100 mg capsule Take 1 capsule by mouth 2 times daily. To be taken for constipation while taking narcotics for post-op pain Please Note: Imuran (AZATHIOPRINE) has been discontinued on discharge. Please follow up with your outpatient PCPand/or Production Technologist regarding your need for this medication in the future. documented in this encounter Medications at Time [...] post-op pain 30 capsule 0 11/01/2010 12/18/2010 documented as of this encounter Progress Notes * Ashley Blandon RN - 11/01/2010 11:22 AM EDT Pt assessed at beginning of shift, alert and oriented times three, vss, denies chest pain, shortness of breath, nauseau, headache and dizziness. Pt's pain adequately controlled with PRN tylenol, pt reports pain as tolerable. Pt's HRR, LS clear, pulses palpable throughout. Abd soft, round, tender topalpation in all four quadrants, positive BS, positive flatus, BM this am. Pt voiding adaquate amtsof clear kurtis, slightly concentrated urine, fluids encouraged. Pt OOB independently and ad issac. Pttolerating regular diet. Will continue to monitor, for further assessments please see flowsheet. Pt d/c'd to home with no services. Reviewed D/C instructions with patient and family, pt aware of when and why to notify MD and of follow up appointments. Pt had question regarding imuran, advised todc after conversation with internal controls specialist and upper level, reprinted AVS with amended instructions. IV d/c'd, catheter intact. Rx rcvd by pt. Pt left @ ~1130 to 's car. * Torito Mohan MD - 11/01/2010 7:44 AM EDT 11/01/10 POD #3 T 98.2 BP 129/93 P 75 Feels well. Passing flatus & stool. Tolerated reg diet last night. BM's remain loose. Chest: Clear Abd: Soft, nondistended, nontender. Incisions healing well. Ext: No calf tenderness. UO 600cc+ /24 hrs IMP: Doing well. Home later this AM if tolerates breakfast well. Instructions reviewed He will call 11/04 to report frequency and consistency of BMs. Will start cholestyramine if BM's remain loose or freq. F/U 4 wks. * Lupe Mendoza RN - 11/01/2010 4:14 AM EDT Patient reports using bathroom to void and have BM's. Discussed with patient need to save urine. DKWill continue to monitor * Lupe Mendoza RN - 11/01/2010 12:19 AM EDT Patient resting in bed at start of shift. Inquiring about BP and HR. Discussed that BP and HR will be monitored. Offers no other complaints/s/s of distress. States pain is well controlled. C/B withinreach. Will continue to monitor. * Awa Appiah RN - 10/31/2010 3:41 PM EDT Pt's diet advanced to clears, tolerating well. Pt reports flatus and had a BM. * Torito Mohan MD - 10/31/2010 9:06 AM EDT Inpatient Progress Note Patient Name: Igor Woodruff Service: General Surgery, Joseph Responsible Attending: Torito Mohan MD Interval History: - some abd pain, c. 2330, resolved after ambulation; no other events overnight - no flatus, belching or BM; no N/V, CP, SOB - sensation in right hand and arm improving Scheduled Meds: ??? DISCONTD: SUIT ATTENDANT garcia ??? DISCONTD: SUIT ATTENDANT garcia ??? esomeprazole 40 mg Oral Daily ??? heparin (porcine) 5,000 Units Subcutaneous Q12H PENG ??? acetaminophen 650 mg Oral Q6H ??? ketorolac 15 mg Intravenous Q6H Infusion Meds: ??? lactated ringers 100 mL/hr (10/31/10 0740) ??? naloxone Physical Exam: Last value Range last 24 hrs Temperature Temp: 36.8 ??C (98.2 ??F) Temp: [36.8 ??C (98.2 ??F)-37.1 ??C (98.8 ??F)] Heart Rate Heart Rate: 92 Heart Rate: [90-94] Blood Pressure BP: 149/89 mmHg BP: (145-158)/(82-94) Respiratory Rate Resp: 16 Resp: [16-18] SpO2 SpO2: 97 % SpO2: [94 %-97 %] Intake/Output Summary (Last 24 hours) at 10/31/10 0906 Last data filed at 10/31/10 0600 Gross per 24 hour Intake 2503.33 ml Output 1826 ml Net 677.33 ml Gen: NAD Resp: CTAB, no w/r/r CV: RRR, S1S2, no m/r/g Abd: S/ND, appropriately tender, incisions c/d/i Ext: warm and well perfused. DP pulses 2+ b/l Neuro: grossly intact, AOx3 Recent Labs Basename 10/31/10 0623 10/30/10 0533 10/25/10 1017 ??? WBC 4.8 5.4 3.7* ??? HGB 12.7* 12.4* 14.7 ??? PLATELET 168 197 222 ??? NA 141 140 -- ??? K 3.3* 3.4* -- ??? CL 106 105 -- ??? CO2 27 29 -- ??? BUN 11 9* 15 ??? CREATININE 0.72* 0.75* 0.93 ??? GLUCOSE -- -- -- ??? CALCIUM 8.6 8.6 -- ??? MAGNESIUM -- 0.73 -- ??? PHOS -- 3.0 -- ??? AST -- 33 27 ??? ALT -- 42 44 ??? ALKPHOS -- 45 58 ??? BILITOT -- 1.4* 1.1 ??? BILIDIR -- 0.3 0.2 ??? INR -- -- -- Assessment and Plan: JUANY Igor Woodruff is a 35 y.o. male sp lap ileocolic resection, currently in stable condition and recovering well, post-op neuropathy in right hand GI - advance to sips and chips for breakfast; if tolerated, then advance to clears for lunch - continue to follow clinical status Neuro - pain well-controlled; continue current medications - post-op neuropathy in right UE resolving spontaneously Pulm - Incentive spirometry Prophylaxis - Nexium - SCDS General - diet as per GI, above - ambulate in hallway Disposition: anticipate a stay of 2-3 days Ethics: FULL CODE OBDULIA SON CRS Attending Pt seen and examined. Above note reviewed. Agree with findings as outlined. Pt reports passing flatus and 1 BM today. Reports the numbness in right hand and forearm has resolved. He is tolerating clear liquids well. Abd is soft, nondistended and nontender. Will advance to regular diet this evening. Anticipate possible discharge later tomorrow. * Lupe Mendoza RN - 10/31/2010 2:16 AM EDT Patient resting in bed at start of shift. Offers no complaints. At 2300 patient complaining of ABD cramping and discomfort. Encouraged to ambulate. DK and ambulated around PODx2. Back to bed. Medicated with Toradol and Oxycodone. Also given warm pack to ABD. Patient resting at present. Eyes closed.Appears asleep. Call Solnao within reach. Will continue to monitor. * Keerthi Lao RN - 10/30/2010 9:19 PM EDT 19 - 23: AVSS. Abdominal lap sites dry and intact. Denies flatus. + bowel sounds. Denies nausea or need for pain med at this time. IV patient with LR at 100/hr. Voiding clear amer urine without difficulty. Resting in bed with no complaints offered. * Juliet Olivas RN - 10/30/2010 2:42 PM EDT Care Management/ CRC/ Assessment O: Patient visiting with family/friend. Notes reviewed. Patient lives with his Casi in [facility]. Patient has P non-referral insurance. No Advance Directives on file here at [facility]. Patient is POD #1 laparoscopic assisted colectomy for crohns ileitis. At this time patient is NPO except hard candy/chewing gum, IVF at 100/hr. SUIT ATTENDANT D/C, Oxycodone po q4hr prn. Toradol IV q6hr scheduled [id number]. Davidson catheter D/C this afternoon. 94% on RA. Patient OOB with assistance. A/P: I will continue in CRC role, following patient's in-hospital course. I am available to assist should discharge needs arise. * Torito Mohan MD - 10/30/2010 12:48 PM EDT 10/30/10 POD #1 T 98.6 BP 131/84 P 82 Awake & alert. C/O diminished sensation R hand across palm and middle three fingers. No motor weakness or pain in RUE. No chest pain or SOB. No nausea. Chest: clear Cor: RR w/out M Abd: Soft, nondistended. Incisions w/out erythema or drainage. Ext: No calf tenderness. UO 1510cc/24 hrs (925cc/12 hrs) +2.8L fluid balance Hct 34.4% WBC 5.4 IMP: Satisfactory course. ? Neuropraxia RUE, - expect this should resolve. D/C SUIT ATTENDANT Oral analgesics plus Toradol D/c davidson Hard candy & chewing gum. Encouraged to use IS * Torito Mohan MD - 10/30/2010 9:17 AM EDT Inpatient Progress Note Patient Name: Igor Woodruff Service: General Surgery, Joseph Responsible Attending: Torito Mohan MD Interval History: - No acute events overnight; no N/V/flatus/BM, c/o R. Hand/arm numbness in median nerve dist; Scheduled Meds: ??? esomeprazole 40 mg Oral Daily ??? heparin (porcine) 5,000 Units Subcutaneous Q12H PENG ??? ceFAZolin 1 g Intravenous Q8H ??? acetaminophen 650 mg Oral Q6H ??? ketorolac 15 mg Intravenous Q6H ??? DISCONTD: metroNIDAZOLE 500 mg Intravenous Q8H PENG ??? DISCONTD: metroNIDAZOLE 500 mg Intravenous Q8H Infusion Meds: ??? lactated ringers 100 mL/hr (10/29/10 8245) ??? naloxone ??? DISCONTD: lactated ringers ??? DISCONTD: HYDROmorphone ??? DISCONTD: SUIT ATTENDANT garcia 1 each (10/29/10 1345) Physical Exam: Last value Range last 24 hrs Temperature Temp: 37 ??C (98.6 ??F) Temp: [36.5 ??C (97.7 ??F)-37.5 ??C (99.5 ??F)] Heart Rate Heart Rate: 89 Heart Rate: [72-105] Blood Pressure BP: 142/75 mmHg BP: (119-142)/(66-89) Respiratory Rate Resp: 18 Resp: [16-20] SpO2 SpO2: 95 % SpO2: [95 %-99 %] Intake/Output Summary (Last 24 hours) at 10/30/10 0917 Last data filed at 10/30/10 0500 Gross per 24 hour Intake 4396 ml Output 1560 ml Net 2836 ml Physical Exam Gen: NAD CVS: RRR, nl s1 and s2, no m/r/g Resp: CTA, no w/r/r Abd: soft, ND, appropriately tender, bandage/steristrips in place, with sm amt of dried serosanguinous fluid; no oozing, edema or induration; Ext: SCDs in place; Recent Labs Basename 10/30/10 0533 10/25/10 1017 ??? WBC 5.4 3.7* ??? HGB 12.4* 14.7 ??? PLATELET 197 222 ??? NA 140 -- ??? K 3.4* -- ??? CL 105 -- ??? CO2 29 -- ??? BUN 9* 15 ??? CREATININE 0.75* 0.93 ??? GLUCOSE -- -- ??? CALCIUM 8.6 -- ??? MAGNESIUM 0.73 -- ??? PHOS 3.0 -- ??? AST 33 27 ??? ALT 42 44 ??? ALKPHOS 45 58 ??? BILITOT 1.4* 1.1 ??? BILIDIR 0.3 0.2 ??? INR -- -- Assessment and Plan 35 y.o. male w/ hx of Crohn's ileitis, POD #1, s/p ileocecal resection; recovering well, but with residual right arm numbness, in median nerve distribution, likely post-op transient neuropathy, related to positioning; GI - NPO, except for meds and ice chips - continue to monitor clinical GI status Pain - d/c SUIT ATTENDANT Neuro - follow daily exam of right hand and arm; if no improvement, consider neuro and/or anesthesia consult Pulm - Incentive spirometry ID - d/c antibiotics Prophylaxis - Nexium - SCDS General - NPO, except for meds and ice chips - ambulate as tolerated Disposition: anticipate a stay of 2-3 days Ethics: FULL CODE OBDULIA SON * Ann Samayoa RN - 10/30/2010 6:31 AM EDT Patient slept well overnight. No acute issues. Denied nausa or emesis. Davidson patent with kurtis urine. Patient continues to complain of numbness to Right hand/fingers and pat of upper arm, also with some complaints of neck and shoulder discomfort. Team aware on am rounds. * Mindy Gross - 10/29/2010 6:43 PM EDT Pt arrived to floor from PACU at approximately 1700. Pt alert and oriented X4. Pt oriented to room,call solano within reach. Vital signs stable. Pt denies chest pain, nausea and shortness of breath. Pt using SUIT ATTENDANT appropriately for pain. Davidson patent. PIV patent. Per pt request pt moved to quieter room. * Obdulia Son - 10/29/2010 3:55 PM EDT Igor Woodruff is a 35 y.o. male sp S: no N/V, pain well controlled, c/o numbness in R hand in median nerve distribution since operation O: Temp: [36.5 ??C (97.7 ??F)-37.5 ??C (99.5 ??F)] Heart Rate: [77-105] Resp: [16] BP: (119-137)/(70-81) SpO2: [95 %-99 %] I/O this shift: In: 2847 [I.V.:2847] Out: 575 [Urine:525; Blood:50] Physical Exam Gen: NAD, resting comfortably CVS: RRR, nl s1 and s2, no m/r/g Resp: CTA, no w/r/r Abd: soft, ND, appropriately tender, bandage/steristrips in place, with sm amt of dried serosanguinous fluid; no oozing, edema or induration; Ext: SCDs in place; R hand LOS in median nerve dist; cap refill and radial pulse normal; AP Igor Woodruff is a 35 y.o. male sp [id number] currently in stable condition and recovering well, though some numbness in R forearm and hand, median nerve distribuition; perfusion is normal; - f/u R hand numbness - continue post operative plan per primary team - pain well controlled - hemodynamically stable, UOP adequate Obdulia Son * Daniele Melendez RN - 10/29/2010 3:[address] Son to bed side to eval PT * Daniele Melendez RN - 10/29/2010 3:[address] Tenorio to bed side to eval Rt hand numbness no new orders at this time * Daniele Melendez RN - 10/29/2010 3:16 PM EDT Pt C/O numbness in first 3 fingers of rt hand Dr Toscano called and informed 1519 in to bed side * Daniele Melendez RN - 10/29/2010 1:52 PM EDT 1350 Pt given SUIT ATTENDANT and inst on use documented in this encounter H&P Notes * Torito Mohan MD - 10/29/2010 7:20 AM EDT 10/29/10 CRS Pt seen and examined. No change in H&P since last exam on 10/02. documented in this encounter Miscellaneous Notes * Miscellaneous - Provider, Scanning - 11/04/2010 12:11 PM EDT * Miscellaneous - Provider, Scanning - 11/04/2010 12:07 PM EDT * Miscellaneous - Provider, Scanning - 11/04/2010 10:31 AM EDT * Discharge Summary - Obdulia Son - 11/01/2010 9:14 AM EDT General Surgery - Discharge Summary Patient Name: Igor Woodruff Patient Age: 35 y.o. Birthdate: 1975 Admit date: 10/29/2010 Discharge date and time: 11/01/2010 Attending Physician: Torito Mohan MD Discharge Diagnoses (Hospital Problems) and Secondary Diagnoses (Chronic Problems): Patient Active Problem List Diagnoses Code ??? Crohn's ileitis 555.0BF ??? Abnormal liver function test 790.6BA ??? GERD (gastroesophageal reflux disease) 530.81S Operations/Major Procedures: Laparoscopic partial colectomy; partial removal of terminal ileum. History of Presentation: History of Crohn's Ileitis, for details please see admission H&P Hospital Course: The patient was admitted post-operatively to [facility], under the care of General Surgery, Dr. Torito Mohan attending, for observation and pain management. The patient remained stable, and with pain well-controlled throughout his post-op recovery. In the immediate post-operative period, he reported numbness in his right hand and arm, in a median nerve distribution, however this had improved substantially by POD #2 with no intervention, and was almost entirely resolved on the day of discharge. His diet was advanced per protocol, and on the day of discharge, he was tolerating a general diet, with no N/V, and was having multiple BM daily. The patient received discharge instructions, including medic ation instructions, and a follow-up appointment was made with the Dr. Mohan at the [facility]. He was discharged to home, in stable condition and with pain well-controlled. Important Studies and Lab Data: Recent Labs Basename 11/01/10 0616 10/31/10 0623 10/30/10 0533 ??? WBC 4.7 4.8 5.4 ??? HGB 12.8* 12.7* 12.4* ??? PLATELET 179 168 197 Recent Labs Basename 11/01/10 0616 10/31/10 0623 8/17/11 0533 ??? NA 140 141 140 ??? K 3.4* 3.3* 3.4* ??? CL 105 106 105 ??? CO2 29 27 29 ??? BUN 7* 11 9* ??? CREATININE 0.73* 0.72* 0.75* ??? GLUCOSE -- -- -- Recent Labs Basename 11/01/10 0616 10/31/10 0623 10/30/10532 ??? CALCIUM 9.0 8.6 8.6 ??? MAGNESIUM -- -- 0.73 ??? PHOS -- -- 3.0 No results found for this basename: CK:3,TROPONINT:3 in the last 168 hours Recent Labs Basename 10/30/10532 ??? AST 33 ??? ALT 42 ??? ALKPHOS 45 ??? BILITOT 1.4* ??? BILIDIR 0.3 Pending Studies and Lab Data: None Discharge Conditions/Prognosis: stable, tolerating a general diet, and with pain well-controlled Discharge to: Home Medication Information esomeprazole (NEXIUM) 20 mg capsule Take 20 mg by mouth every morning (before breakfast). IMURAN 50 mg tablet TAKE 5 TABLETS (=250MG) BY MOUTH ONCE DAILY multivitamin (MULTIPLE VITAMIN) tablet Take 1 tablet by mouth daily. OXYcodone (ROXICODONE) 5 mg immediate release tablet Take 1 tablet by mouth every 4 hours as needed for Pain. docusate sodium (COLACE) 100 mg capsule Take 1 capsule by mouth 2 times daily. To be taken for constipation while taking narcotics for post-op pain Updated Allergies/ADRs: No Known Allergies Provider Instructions Colon and Rectal Surgery Patient Discharge Instructions Activity level: Avoid heavy lifting for the next 4 weeks or until cleared to do so at follow-up appointment. Otherwise activity as tolerated by comfort level. Diet: You may resume your regular diet as tolerated. If your doctor has instructed you to have a low residue / low fiber diet then avoid fresh fruits/fresh vegetables (cooked are OK) for 4 weeks. Youshould try and drink 2 liters of fluids daily. Post-Colorectal Surgery Low Residue Diet 1. Drink >2 liters of fluids per day 2. Chew your food thoroughly 3. Eat smaller, more frequent meals 4. Try new foods one at a time to be sure that you can tolerate them 5. Avoid fresh fruits and fresh vegetables (exceptions below) for 4 weeks ?? Cook and canned fruits and vegetables are generally okay ?? Soft fresh fruits such as half an avocado or half a banana are generally okay ?? Fibrous foods should be avoided (even if cooked): apple peels, asparagus, celery, djiboutian vegetables, citrus pulp, coconut, mushrooms, popcorn, nuts, seeds, wild rice, whole kernel corn, and the skins of fruit and many other difficult to digest and pass foods should be avoided ?? If uncertain about a food, eat it in moderation and follow with extra fluid by mouth. Driving: No driving while still taking opioid pain medications (wait at least 6- 8 hours since last dose). No driving if you are still sore from surgery as it may limit your ability to react quickly if necessary. Shower/Bath: You may shower and get incision(s) wet. Pat dry immediately following. Do not scrub them vigorously for the next 2-3 weeks. Do not soak incision(s) for the next 2 weeks (i.e. soaking in bath or swimming) as this may promote a wound infection. Wound Care: Wash incision with soap and water, pat dry, and leave open to air. Allow steri-strips (pieces of tape) to fall off on their own if you have them. You may cover with gauze as needed to prevent incision rubbing on clothes or for any seepage. If you have skin senait you will need to have them removed in 12-14 days. This can be done by yourP or you can come back to the General surgery clinic to have these removed by the General Surgerynurses on 4 (see below). Follow up Appointments: 1. You have a follow-up appointment with the General Surgery Nurses at the [facility] Cellars Receiver as above for staple removal and wound check. 2. You have a follow up appointment with Dr. Mohan at the [facility] on November 15, at 4:00 PM. You will receive a phone call and/or a letter in the mail with information about your appointments.Please call [phone] (clinic number for appointments only) to confirm date and time of your appointments or if you do not receive information about your appointment in a timely manner. Call your doctor if: You develop any of the following sings or symptoms of infection: o Redness or swelling of your incision (some mild redness around the incision and the staple sites is normal) o Drainage or bleeding from your incision o Fever over 100.5 F o Increased pain or discomfort at the incision site Persistent nausea and/or vomiting or the inability to keep foods or fluids down in a 24 hour period. Signs or symptoms of dehydration: o Dry mouth o Dark, concentrated urine, or lack of urine o Lightheadedness Any other concerning sign or symptom such as shortness or breath, chest pain, pain with urination or other signs of urinary tract infection (UTI), or new leg pain/swelling. Also, please call if you develop increasing abdominal pain, increasing abdominal pain, abdominal firmness, if you stop passinggas or stool for an extended period of time, or bloody bowel movements/vomitting. CALL THE GENERAL SURGERY CLINIC DURING WORKING HOURS AT , OR CALL AFTER CLINIC HOURS, WEEKENDS AND HOLIDAYS: ASK FOR THE SURGERY RESIDENT HOSPICE NURSE IF ANY OF THE ABOVE OCCUR. Post-Colorectal Surgery Low Residue Diet 6. Drink >2 liters of fluids per day 7. Chew your food thoroughly 8. Eat smaller, more frequent meals 9. Try new foods one at a time to be sure that you can tolerate them 10. Avoid fresh fruits and fresh vegetables (exceptions below) for 4 weeks ?? Cook and canned fruits and vegetables are generally okay ?? Soft fresh fruits such as half an avocado or half a banana are generally okay ?? Fibrous foods should be avoided (even if cooked): apple peels, asparagus, celery, djiboutian vegetables, citrus pulp, coconut, mushrooms, popcorn, nuts, seeds, wild rice, whole kernel corn, and the skins of fruit and many other difficult to digest and pass foods should be avoided ?? If uncertain about a food, eat it in moderation and follow with extra fluid by mouth. Igor Woodruff Home Medication Instructions PABLITO:[id number] Printed on:11/01/10 0363 Medication Information esomeprazole (NEXIUM) 20 mg capsule Take 20 mg by mouth every morning (before breakfast). multivitamin (MULTIPLE VITAMIN) tablet Take 1 tablet by mouth daily. OXYcodone (ROXICODONE) 5 mg immediate release tablet Take 1 tablet by mouth every 4 hours as needed for Pain. docusate sodium (COLACE) 100 mg capsule Take 1 capsule by mouth 2 times daily. To be taken for constipation while taking narcotics for post-op pain Please Note: Imuran (AZATHIOPRINE) has been discontinued on discharge. Please follow up with your outpatient PCPand/or Production Technologist regarding your need for this medication in the future. Future Appointments and Orders Future Appointments: Provider: Department: Dept Phone: Center: 11/15/2010 4:00 PM Torito Mohan MD [facility] For questions regarding this document or issues relating to this hospitalization on the General Surgery Service, please contact your inpatient physician through the [facility] [employer] Stock Clerk . Issues after hours and on weekends will be handled by the General Surgery staff on-call. Signed: OBDULIA SON * Op Note - Torito Mohan MD - 10/29/2010 1:19 PM EDT [facility] Operative Note Patient Name: Igor Woodruff : [id number] MR#: [id number] Case Date: 10/29/2010 Surgeon: Surgeon(s) and Role: * TORITO MOHAN MD - Primary * BIANCA VERDUZCO MD - Resident-Surgeon Chief Preoperative diagnosis: CROHNS ILEITIS Postoperative diagnosis: CHROHNS ILEITIS Procedure(s): ??LAPAROSCOPIC ASSISTED COLECTOMY, PARTIAL, REM.TERMINAL ILEUM General Preoperative Diagnosis: Crohn's ileocolitis with small-bowel obstruction. Postoperative Diagnosis: Crohn's ileocolitis with small-bowel obstruction. Procedure: Laparoscopic ileocolic resection. Surgeon: Torito Mohan M.D. Pageant Director: Bianca Verduzco M.D. Anesthesia: General. Indications: The patient is a 35-year-old male with a history of Crohn's enteritis confined to the terminal ileum. The patient has developed symptoms of intestinal obstruction over the last year requiring dietary restrictions. He was hospitalized for an acute episode of obstruction approximately eight months ago. Given the presence of the fibrostenotic disease and persistent symptoms, the patient presents now for ileocolic resection. The possibility of doing the procedure laparoscopically was discussed with the patient, and he presents for that purpose. Procedure: Following induction of general anesthesia, the patient was placed in [facility] stirrups. The abdomen was prepped and draped in the usual fashion. A Davidson catheter had previously been inserted. A curvilinear infraumbilical skin incision was performed. A Veress needle was used to cannulate the peritoneal cavity and establish pneumoperitoneum. A 12-mm laparoscopic trocar was inserted. Additional 5-mm trocars were inserted in the left lower quadrant, the right lower quadrant, and the right upper quadrant. Exploration of the abdomen revealed an inflammatory mass involving the terminal ileum and cecum. There were some adhesions to the anterior abdominal wall adjacent to this mass. The adhesions were most likely from the patient's remote appendectomy. The terminal ileum had extensive fat wrapping, and the mesentery was quite thickened. The length of disease was approximately 10 inches, but a segment of intestine just proximal to this point was adhesed into the mass. 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 Omentum adhesed to the inflammatory mass was dissected free with a combination of cautery and LigaSure dissection. Adhesions tethering the small intestine in the right pelvis and right paracolic gutter were mobilized with sharp dissection. The terminal ileum was retracted cephalad, exposing the base of the mesentery to the very distal small intestine. This was dissected off the posterior abdominal wall with a combination of cautery and blunt dissection. The peritoneum along the fascial fusion plane in the right gutter was incised. This plane was somewhat difficult to expose due to the patient's obesity and the dense, inflammatory reaction around the terminal ileum and base of cecum. The incision along the fascial fusion plane was extended cephalad to the level of the hepatic flexure. The hepatic flexure was identified and was retracted toward the left lower quadrant. The peritoneum tethering the flexure in the right upper quadrant was then divided with the LigaSure device. This dissection was extended around the hepatic flexure, dividing the right lateral edge of the gastrocolic omentum. Attention was returned to the paracolic gutter. The colon was retracted medially. The duodenum was identified on the posterior aspect of the mesentery to the ascending colon. This was dissected off of the mesentery. A site for proximal transection of the intestine in the terminal ileum approximately 6 inches proximal to the point of the fistula was selected. The bowel was divided at this level with a laparoscopic LARRY stapler. The mesentery to the terminal ileum was then divided with the LigaSure device. Dissection progressed cephalad. The ileocolic trunk was identified and was placed on traction. The ileocolic vessels were divided with the LigaSure device. This provided access into the bare area of mesentery to the ascending colon. This was divided. At this point, the specimen had been mobilized sufficiently to permit bringing out the specimen and the proximal and distal limbs of intestine for anastomosis. A small midline incision was created. A wound protector was placed in the incision. The specimen was extracted. The specimen was quite bulky. It was necessary to extend the incision in order to have sufficient mobility to extract the specimen. The proximal end of the divided small intestine was then delivered through the midline incision as well. The site for distal transection of the intestine in the distal ascending colon was selected. The mesentery had been cleared nearly to the edge of the bowel at this level. The remaining mesentery was divided between clamps and ligated with 2-0 Vicryl ties. The bowel was divided with a LARRY stapler and the specimen passed off the table. The proximal end of the divided small intestine was somewhat dusky at its end. A site for more proximal transection was selected and a mesenteric window created at this point. The adjacent mesentery was divided between clamps and ligated with 2-0 Vicryl ties. The bowel was then divided with a LARRY stapler and the specimen removed from the table. The antimesenteric surfaces of the proximal and distal limbs of intestine were approximated. A corner to the stapled closure of each piece of bowel was excised. Dnki-qz-ovia anastomosis was performed using a LARRY stapler. The end enterotomy/colotomy was closed with a TA-60 stapler. A 3-0 Vicryl traction suture was placed at the apex of the LARRY staple line. The abdomen was irrigated with saline after restoring the intestine to the intra-abdominal cavity. The peritoneum and fascia along the midline incision were approximated with running #1 PDS suture. The wound was packed with a sponge soaked in antibiotic solution. Pneumoperitoneum was reestablished. The 5-mm laparoscope was introduced through the left lower quadrant port. Exploration of the abdomen confirmed that the anastomosis lay in the right upper quadrant without tension. There was no evidence of internal herniation. The operative field was inspected. Hemostasis was satisfactory. The pneumoperitoneum was then released and the trocars removed under direct vision. All wounds were irrigated with a bacitracin solution. Skin margins were approximated with 4-0 Monocryl subcuticular sutures. Mastisol and Steri-Strips were placed over the incisions. The patient tolerated the procedure well. He was extubated in the Operating Room and transferred to the Recovery Room in satisfactory condition. Sponge and needle counts were correct. Estimated Blood Loss: 50 mL. * OR Attestation - Torito Mohan MD - 10/29/2010 1:18 PM EDT Attestation:Attestation: I was present and I participated during the entire procedure (does not need to include opening and closing). TORITO MOHAN Case Date: 10/29/2010 TORITO MOHAN 10/29/2010 * Miscellaneous - Provider, Scanning - 10/29/2010 6:19 AM EDT documented in this encounter Plan of Treatment Upcoming Encounters Date Type Department Care Team (Latest Contact Info) Description 04/01/2024 12:35 PM EST Hospital Encounter [place] [phone] Apurva Vivas MD [facility] [place] [address] 04/01/2024 12:35 PM EST - 04/01/2024 2:17 PM EST [place] [phone] Apurva Vivas MD [facility] [place] [address] ANORECTAL EXAM, REQUIRING ANESTHESIA, DIAGNOSTIC (WRVU 1.8) 04/26/2024 3:00 PM EST Office [place] [phone] Apurva Vivas MD [facility] [place] [address] Scheduled Procedures Name Priority Associated Diagnoses Date/Ti me ANORECTAL EXAM, REQUIRING ANESTHESIA, DIAGNOSTIC (WRVU 1.8) perianal crohns disease w/fistula 04/01/2024 12:35 PM EST SURGICAL TREATMENT OF ANAL FISTULA COMPLEX OR MULTIPLE W\WO SETON PLACEMENT (WRVU 6.39) perianal crohns disease w/fistula 04/01/2024 12:35 PM EST documented as of this encounter Procedures Procedure Name Priority Date/Time Associated Diagnosis Comments BMP W/FASTING GLUCOSE Timed 11/01/2010 6:16 AM EDT DIFFERENTIAL, AUTOMATED Timed 11/01/2010 6:16 AM EDT CBC (WITH DIFF) Timed 11/01/2010 6:16 AM EDT BMP W/FASTING GLUCOSE Routine 10/31/2010 6:23 AM EDT DIFFERENTIAL, AUTOMATED Routine 10/31/2010 6:23 AM EDT CBC (WITH DIFF) Routine 10/31/2010 6:23 AM EDT CMP W/FASTING GLUCOSE Routine 10/30/2010 5:33 AM EDT DIFFERENTIAL, AUTOMATED Routine 10/30/2010 5:33 AM EDT CBC (WITH DIFF) Routine 10/30/2010 5:33 AM EDT PHOSPHORUS Routine 10/30/2010 5:33 AM EDT MAGNESIUM Routine 10/30/2010 5:33 AM EDT SURGICAL PATHOLOGY REPORT Routine 10/29/2010 1:05 PM EDT SPECIMEN TO PATHOLOGY Routine 10/29/2010 11:28 AM EDT @LAPAROSCOPIC ASSISTED COLECTOMY, PARTIAL, REM.TERMINAL ILEUM (WRVU 22.95) 10/29/2010 7:30 AM EDT CHROHNS ILEITIS documented in this encounter Results * (ABNORMAL) REFLEX LAB-A-DIFF (11/01/2010 6:16 AM EDT) Neutrophil % 72.5(H) 34.0 - 71.0 % CERNER MILLENNIUM Neutrophil Absolute 3.39 1.50 - 6.30 x10(3)/mc L CERNER MILLENNIUM Lymph % 14.3(L) 19.0 - 53.0 % CERNER MILLENNIUM Lymphocytes Abs 0.7(L) 1.0 - 3.6 x10(3)/mc L CERNER MILLENNIUM Monocyte % 9.8 4.0 - 13.0 % CERNER MILLENNIUM Monocyte Abs 0.5 0.2 - 1.0 x10(3)/mc L CERNER MILLENNIUM Eos % 3.0 0.0 - 7.0 % CERNER MILLENNIUM Eosinophils Abs 0.1 0.0 - 0.5 x10(3)/mc L CERNER MILLENNIUM Basophil % 0.2 0.0 - 2.0 % CERNER MILLENNIUM Baso Absolute 0.0 0.0 - 0.2 x10(3)/mc L CERNER MILLENNIUM Immature Gran % 0.20 0.00 - 0.66 % CERNER MILLENNIUM Comment: Immature granulocytes(IG's)percentage and absolute count will include metamyelocytes, myelocytes, and promyelocytes. Blood smears from CBCs yielding IG's will be scanned manually for concordance. If this scan disagrees with the automated IG or if promyelocytes are noted, a manual differential will be performed. Immature Gran Absolute 0.01 0.00 - 0.05 x10(3)/mc L CERNER MILLENNIUM Blood specimen (specimen) 11/01/2010 6:16 AM EDT 11/01/2010 6:34 AM EDT Torito Mohan MD HEMATOLOGY ORDERABLE S Performing Organization Address [facility] Co de Phone Number CERNER MILLENNIUM * (ABNORMAL) CBC (with Diff) (11/01/2010 6:16 AM EDT) White Blood Cell 4.7 4.0 - 10.0 x10(3)/mc L CERNER MILLENNIUM Red Blood Cell 3.98(L) 4.63 - 6.08 x10(6)/mc L CERNER MILLENNIUM Hemoglobin 12.8(L) 13.7 - 17.5 gm/dL CERNER MILLENNIUM Hematocrit 34.7(L) 40.0 - 51.0 % CERNER MILLENNIUM Mean Cell Volume 87.2 79.0 - 92.0 fL CERNER MILLENNIUM Mean Cell Hemoglobin 32.2 25.6 - 32.2 pg CERNER MILLENNIUM Mean Cell Hemoglobin Concentration 36.9(H) 32.0 - 36.5 gm/dL CERNER MILLENNIUM Platelet 179 145 - 370 x10(3)/mc L CERNER MILLENNIUM RDW Standard Deviation 43.2 35.0 - 46.0 fL CERNER MILLENNIUM RDW coefficient of variation 13.6 10.9 - 14.4 % CERNER MILLENNIUM Mean Platelet Volume 9.7 9.0 - 12.0 fL CERNER MILLENNIUM Blood specimen (specimen) 11/01/2010 6:16 AM EDT 11/01/2010 6:34 AM EDT Torito Mohan MD HEMATOLOGY ORDERABLE S CERNER MILLENNIUM * (ABNORMAL) BMP w/fasting Glucose (11/01/2010 6:16 AM EDT) [facility] Glucose Fasting 123(H) 65 - 99 mg/dL CERNER MILLENNIUM Comment: ?Fasting* Glucose Interpretive Criteria Normal ?65-99 mg/dL Impaired Fasting glucose ?100-125 mg/dL Consistent with Diabetes Mellitus ? >or= 126 mg/dL *Fasting is defined as no caloric intake for at least 8 hours In the absence of unequivocal hyperglycemia a plasma glucose value of >or= 126 mg/dL should be repeated on a subsequent day. Diagnosis and Classification of Diabetes Mellitus, Position Statement from the [place] [employer]. ??Diabetes Care, Volume 33, Supplement 1, Mar 2009 Blood Urea Nitrogen 7(L) 10 - 20 mg/dL CERNER MILLENNIUM Creatinine 0.73(L) 0.80 - 1.50 mg/dL CERNER MILLENNIUM Sodium 140 135 - 145 mmol/L CERNER MILLENNIUM Potassium 3.4(L) 3.5 - 5.0 mmol/L CERNER MILLENNIUM Comment: Please note: ??Patients with WBC >100,000 may have falsely elevated Potassium levels. ??For accurate Potassium quantification in these patients send serum separator tube (gold top) for subsequent determinations. ??Contact the Clinical Chemistry Laboratory if there are any questions. Chloride 105 98 - 107 mmol/L CERNER MILLENNIUM Carbon Dioxide 29 22 - 31 mmol/L CERNER MILLENNIUM Anion Gap 6 5 - 15 mmol/L CERNER MILLENNIUM Calcium 9.0 8.5 - 10.5 mg/dL CERNER MILLENNIUM Est Glomerular Filtration Rate >60 >=60 CERNER MILLENNIUM Comment: The National Kidney Disease Education Program [...] disease. References: http://nkdep.nih.gov/resources/NKDEP_Suggestn4Labs_0606_508.pdf http://www.kidney.org/professionals/kls/pdf/faq_gfr.pdf Blood specimen (specimen) 11/01/2010 6:16 AM EDT 11/01/2010 6:34 AM EDT Torito Mohan MD CHEMISTRY ORDERABLES CERNER MILLENNIUM * (ABNORMAL) REFLEX LAB-A-DIFF (10/31/2010 6:23 AM EDT) Neutrophil % 73.9(H) 34.0 - 71.0 % CERNER MILLENNIUM Neutrophil Absolute 3.56 1.50 - 6.30 x10(3)/mc L CERNER MILLENNIUM Lymph % 16.2(L) 19.0 - 53.0 % CERNER MILLENNIUM Lymphocytes Abs 0.8(L) 1.0 - 3.6 x10(3)/mc L CERNER MILLENNIUM Monocyte % 8.5 4.0 - 13.0 % CERNER MILLENNIUM Monocyte Abs 0.4 0.2 - 1.0 x10(3)/mc L CERNER MILLENNIUM Eos % 1.2 0.0 - 7.0 % CERNER MILLENNIUM Eosinophils Abs 0.1 0.0 - 0.5 x10(3)/mc L CERNER MILLENNIUM Basophil % 0.2 0.0 - 2.0 % CERNER MILLENNIUM Baso Absolute 0.0 0.0 - 0.2 x10(3)/mc L CERNER MILLENNIUM Immature Gran % 0.00 0.00 - 0.66 % CERNER MILLENNIUM Comment: Immature granulocytes(IG's)percentage and absolute count will include metamyelocytes, myelocytes, and promyelocytes. Blood smears from CBCs yielding IG's will be scanned manually for concordance. If this scan disagrees with the automated IG or if promyelocytes are noted, a manual differential will be performed. Immature Gran Absolute 0.00 0.00 - 0.05 x10(3)/mc L CERNER MILLENNIUM Blood specimen (specimen) 10/31/2010 6:23 AM EDT 10/31/2010 6:45 AM EDT Torito Mohan MD HEMATOLOGY ORDERABLE S CERNER MILLENNIUM * (ABNORMAL) CBC (with Diff) (10/31/2010 6:23 AM EDT) White Blood Cell 4.8 4.0 - 10.0 x10(3)/mc L CERNER MILLENNIUM Red Blood Cell 3.98(L) 4.63 - 6.08 x10(6)/mc L CERNER MILLENNIUM Hemoglobin 12.7(L) 13.7 - 17.5 gm/dL CERNER MILLENNIUM Hematocrit 34.8(L) 40.0 - 51.0 % CERNER MILLENNIUM Mean Cell Volume 87.4 79.0 - 92.0 fL CERNER MILLENNIUM Mean Cell Hemoglobin 31.9 25.6 - 32.2 pg CERNER MILLENNIUM Mean Cell Hemoglobin Concentration 36.5 32.0 - 36.5 gm/dL CERNER MILLENNIUM Platelet 168 145 - 370 x10(3)/mc L CERNER MILLENNIUM RDW Standard Deviation 43.2 35.0 - 46.0 fL CERNER MILLENNIUM RDW coefficient of variation 13.5 10.9 - 14.4 % CERNER MILLENNIUM Mean Platelet Volume 9.6 9.0 - 12.0 fL CERNER MILLENNIUM Blood specimen (specimen) 10/31/2010 6:23 AM EDT 10/31/2010 6:45 AM EDT Torito Mohan MD HEMATOLOGY ORDERABLE S JESENIA FRAGAENNIUM * (ABNORMAL) BMP w/fasting Glucose (10/31/2010 6:23 AM EDT) Glucose Fasting 80 65 - 99 mg/dL CERNER MILLENNIUM Comment: ?Fasting* Glucose Interpretive Criteria Normal ?65-99 mg/dL Impaired Fasting glucose ?100-125 mg/dL Consistent with Diabetes Mellitus ? >or= 126 mg/dL *Fasting is defined as no caloric intake for at least 8 hours In the absence of unequivocal hyperglycemia a plasma glucose value of >or= 126 mg/dL should be repeated on a subsequent day. Diagnosis and Classification of Diabetes Mellitus, Position Statement from the [place] [employer]. ??Diabetes Care, Volume 33, Supplement 1, Mar 2009 Blood Urea Nitrogen 11 10 - 20 mg/dL CERNER MILLENNIUM Creatinine 0.72(L) 0.80 - 1.50 mg/dL CERNER MILLENNIUM Sodium 141 135 - 145 mmol/L CERNER MILLENNIUM Potassium 3.3(L) 3.5 - 5.0 mmol/L CERNER MILLENNIUM Comment: Please note: ??Patients with WBC >100,000 may have falsely elevated Potassium levels. ??For accurate Potassium quantification in these patients send serum separator tube (gold top) for subsequent determinations. ??Contact the Clinical Chemistry Laboratory if there are any questions. Chloride 106 98 - 107 mmol/L CERNER MILLENNIUM Carbon Dioxide 27 22 - 31 mmol/L CERNER MILLENNIUM Anion Gap 8 5 - 15 mmol/L CERNER MILLENNIUM Calcium 8.6 8.5 - 10.5 mg/dL CERNER MILLENNIUM Est Glomerular Filtration Rate >60 >=60 CERNER MILLENNIUM Comment: The National Kidney Disease Education Program [...] disease. References: http://nkdep.nih.gov/resources/NKDEP_Suggestn4Labs_0606_508.pdf http://www.kidney.org/professionals/kls/pdf/faq_gfr.pdf Blood specimen (specimen) 10/31/2010 6:23 AM EDT 10/31/2010 6:45 AM EDT Torito Mohan MD CHEMISTRY ORDERABLES JESENIA LUAIUM * (ABNORMAL) REFLEX LAB-A-DIFF (10/30/2010 5:33 AM EDT) Neutrophil % 74.4(H) 34.0 - 71.0 % CERNER MILLENNIUM Neutrophil Absolute 4.03 1.50 - 6.30 x10(3)/mc L CERNER MILLENNIUM Lymph % 14.6(L) 19.0 - 53.0 % CERNER MILLENNIUM Lymphocytes Abs 0.8(L) 1.0 - 3.6 x10(3)/mc L CERNER MILLENNIUM Monocyte % 10.0 4.0 - 13.0 % CERNER MILLENNIUM Monocyte Abs 0.5 0.2 - 1.0 x10(3)/mc L CERNER MILLENNIUM Eos % 0.6 0.0 - 7.0 % CERNER MILLENNIUM Eosinophils Abs 0.0 0.0 - 0.5 x10(3)/mc L CERNER MILLENNIUM Basophil % 0.2 0.0 - 2.0 % CERNER MILLENNIUM Baso Absolute 0.0 0.0 - 0.2 x10(3)/mc L CERNER MILLENNIUM Immature Gran % 0.20 0.00 - 0.66 % CERNER MILLENNIUM Comment: Immature granulocytes(IG's)percentage and absolute count will include metamyelocytes, myelocytes, and promyelocytes. Blood smears from CBCs yielding IG's will be scanned manually for concordance. If this scan disagrees with the automated IG or if promyelocytes are noted, a manual differential will be performed. Immature Gran Absolute 0.01 0.00 - 0.05 x10(3)/mc L CERNER PHILLYENNIUM Blood specimen (specimen) 10/30/2010 5:33 AM EDT 10/30/2010 6:10 AM EDT Torito Mohan MD HEMATOLOGY ORDERABLE S Performing Organization Address [facility] Co de Phone Number JESENIA GOLDBERG * Phosphorus (10/30/2010 5:33 AM EDT) Phosphorus 3.0 2.5 - 4.5 mg/dL JESENIA LUAIUM Blood specimen (specimen) 10/30/2010 5:33 AM EDT 10/30/2010 6:10 AM EDT Torito Mohan MD CHEMISTRY ORDERABLES Performing Organization Address City/[facility] Co de Phone Number JESENIA LUAIUM * Magnesium (10/30/2010 5:33 AM EDT) Magnesium 0.73 0.69 - 1.07 mmol/L JESENIA FRAGAENNIUM Blood specimen (specimen) 10/30/2010 5:33 AM EDT 10/30/2010 6:10 AM EDT Torito Mohan MD CHEMISTRY ORDERABLES JSEENIA LUAIUM * (ABNORMAL) CMP w/fasting Glucose (10/30/2010 5:33 AM EDT) Glucose Fasting 97 65 - 99 mg/dL CERNER MILLENNIUM Comment: ?Fasting* Glucose Interpretive Criteria Normal ?65-99 mg/dL Impaired Fasting glucose ?100-125 mg/dL Consistent with Diabetes Mellitus ? >or= 126 mg/dL *Fasting is defined as no caloric intake for at least 8 hours In the absence of unequivocal hyperglycemia a plasma glucose value of >or= 126 mg/dL should be repeated on a subsequent day. Diagnosis and Classification of Diabetes Mellitus, Position Statement from the [place] [employer]. ??Diabetes Care, Volume 33, Supplement 1, Mar 2009 Blood Urea Nitrogen 9(L) 10 - 20 mg/dL CERNER MILLENNIUM Creatinine 0.75(L) 0.80 - 1.50 mg/dL CERNER MILLENNIUM Sodium 140 135 - 145 mmol/L CERNER MILLENNIUM Potassium 3.4(L) 3.5 - 5.0 mmol/L CERNER MILLENNIUM Comment: Please note: ??Patients with WBC >100,000 may have falsely elevated Potassium levels. ??For accurate Potassium quantification in these patients send serum separator tube (gold top) for subsequent determinations. ??Contact the Clinical Chemistry Laboratory if there are any questions. Chloride 105 98 - 107 mmol/L CERNER MILLENNIUM Carbon Dioxide 29 22 - 31 mmol/L CERNER MILLENNIUM Anion Gap 6 5 - 15 mmol/L CERNER MILLENNIUM Calcium 8.6 8.5 - 10.5 mg/dL CERNER MILLENNIUM Protein, Total 5.5(L) 6.4 - 8.3 gm/dL CERNER MILLENNIUM Albumin 3.4 3.2 - 5.2 gm/dL CERNER MILLENNIUM Aspartate Aminotransferase 33 0 - 39 unit/L CERNER MILLENNIUM Alanine Aminotransferase 42 0 - 55 unit/L CERNER MILLENNIUM Alkaline Phosphatase 45 40 - 120 unit/L CERNER MILLENNIUM Bilirubin, Total 1.4(H) 0.2 - 1.3 mg/dL CERNER MILLENNIUM Bilirubin, Direct 0.3 0.0 - 0.3 mg/dL CERNER MILLENNIUM Est Glomerular Filtration Rate >60 >=60 CERNER MILLENNIUM Comment: The National Kidney Disease Education Program [...] disease. References: http://nkdep.nih.gov/resources/NKDEP_Suggestn4Labs_[email or web address].pdf http://www.kidney.org/professionals/kls/pdf/faq_gfr.pdf Blood specimen (specimen) 10/30/2010 5:33 AM EDT 10/30/2010 6:10 AM EDT Torito Mohan MD CHEMISTRY ORDERABLES JESENIA GOLDBERG * (ABNORMAL) CBC (with Diff) (10/30/2010 5:33 AM EDT) White Blood Cell 5.4 4.0 - 10.0 x10(3)/mc L CERNER MILLENNIUM Red Blood Cell 3.88(L) 4.63 - 6.08 x10(6)/mc L CERNER MILLENNIUM Hemoglobin 12.4(L) 13.7 - 17.5 gm/dL CERNER MILLENNIUM Hematocrit 34.4(L) 40.0 - 51.0 % CERNER MILLENNIUM Mean Cell Volume 88.7 79.0 - 92.0 fL CERNER MILLENNIUM Mean Cell Hemoglobin 32.0 25.6 - 32.2 pg CERNER MILLENNIUM Mean Cell Hemoglobin Concentration 36.0 32.0 - 36.5 gm/dL CERNER MILLENNIUM Platelet 197 145 - 370 x10(3)/mc L CERNER MILLENNIUM RDW Standard Deviation 45.5 35.0 - 46.0 fL CERNER MILLENNIUM RDW coefficient of variation 14.0 10.9 - 14.4 % CERNER MILLENNIUM Mean Platelet Volume 9.4 9.0 - 12.0 fL CERNER MILLENNIUM Blood specimen (specimen) 10/30/2010 5:33 AM EDT 10/30/2010 6:10 AM EDT Torito Mohan MD HEMATOLOGY ORDERABLE S JESENIA GOLDBERG * Surgical Pathology Report (10/29/2010 1:05 PM EDT) Surgical Pathology Report [id number] ? Location: [facility]; 0403; B The signing pathologist has (i) examined the relevant preparation(s) for the specimen(s) and (ii) rendered or confirmed the diagnosis(es). . ?Pathology Surgical Pathology Final Report Clinical Information Specimen Submitted: A - Terminal ilium and colon Clinical History/Diagnosis : Crohn's ileitis Gross Description Labeled/Fixative: ?Terminal ileum and colon, fresh. Qty/Size/Weight: ? 25.5 x 12.0 x 7.0 cm. Tissue Description: ?Received is a right hemicolectomy specimen ? consisting of 19.5 cm length of terminal ileum ?and 9.7 cm length of right colon. ?? External architecture: ??The terminal ileum is tortuous and adhesed upon ? itself with [id number] fistulae between ?loops of small bowel. ??The lumen averages 5cm in circumference narrowing to 1.5 cm in the ?tortuous area. ?? Serosa: ? The serosa is hemorrhagic and dusky with the ? tortuous segment of bowel densely adhesed. ?Mucosa: ? The mucosa is red and granular with disruption ?? of the normal mucosal folds, especially in the ?ileal segment. ?? Wall Thickness: ? The wall thickness averages 0.4 cm, extending ?up to 1.5 cm within the area of stenosis. ? Margins: ? The proximal margin shows mucosal abnormality. The colonic margin is unremarkable. ?? Other: ?Also received is a 13.5 cm additional length of ?small bowel which has preserved architecture. ? The mucosa is mazariegos-brown with the normal mucosal folds. Sections/Processi ng: ? (A1-2) terminal margins of additional segment of ? ileum; ??(A3) mucosa of additional segment of ileum; (A4) ileal margin of larger section of bowel; (A5) colonic margin; (A6-A10) customer loyalty representative sections of mucosa of larger segment taken every 5 cm from proximal to distal; (A11) fistula; (A12) second fistula. ??(R12) vms/EGJ Microscopic Description Slides reviewed, microscopic description not recorded. Diagnosis Terminal ileum and colon, resection: ?? Crohn's disease of the terminal ileum with a stricture and fistulas. CR-0 11/04/10 BJM 11/05/10 Verified by: ? Agustin JONES, Yoseph ?Pathologist ?(Electronic Signature) The attending pathologist whose signature appears on this report has reviewed all diagnostic slides and has edited the gross and/or microscopic portion of the report in rendering the final pathologic diagnosis. CHRISTINAMARVIN FRAGARONI 10/29/2010 1:05 PM EDT Torito Mohan MD PATHOLOGY/CYTOLOGY [place] Performing Organization Address City[facility] Co de Phone Number JESENIA YUSUF * Specimen to Pathology (surgical or derm) (10/29/2010 11:28 AM EDT) AP Specimen 10/29/2010 11:2 8 AM EDT 10/29/2010 11:28 AM EDT Narrative JESENIA PHILLYJUANJOIUM - 10/29/2010 11:28 AM EDT Specimen requisition ordered. ??Separate Pathology report to follow Torito Mohan MD PATHOLOGY/CYTOLOGY [place] Performing Organization Address City/State/[facility] Co de Phone Number JESENIA PHILLYRONI documented in this encounter Visit Diagnoses Not on filedocumented in this encounter Administered Medications Inactive Administered Medications - up to 3 most recent administrations Medication Order MAR Action Action Date Dose Rate Site acetaminophen (TYLENOL) tablet 650 mg 650 mg, Oral, EVERY 6 HOURS, First dose on Thu10/29/10 at 1345, Until Discontinued, Maximum dose of acetaminophen is 4000 mg from all sources in 24 hours., Recovery (Recovery-Hospital Unit), Routine Given 11/01/2010 11:03 AM EDT 650 mg Given 11/01/2010 6:00 AM EDT 650 mg Given 11/01/2010 12:00 AM EDT 650 mg ceFAZolin (ANCEF) 1g in dextrose 5% 50mL 1,000 mg (1 g), Intravenous, EVERY 8 HOURS, 3 doses, First dose on Thu10/29/10 at 1600, Last dose on Thu10/30/10 at 0800, Administer over 30 Minutes, Recovery (Recovery-Hospital Unit) Given 10/30/2010 8:00 AM EDT 1,000 mg 100 mL /hr Given 10/30/2010 12:00 AM EDT 1,000 mg 100 mL/hr Given 10/29/2010 3:48 PM EDT 1,000 mg 100 mL/hr esomeprazole (NEXIUM) capsule 40 mg 40 mg, Oral, DAILY, First dose on Thu10/29/10 at 1430, Until Discontinued, Recovery (Recovery-Hospital Unit), Routine Given 11/01/2010 9:00 AM EDT 40 mg Given 10/31/2010 9:00 AM EDT 40 mg Given 10/30/2010 9:00 AM EDT 40 mg heparin (porcine) subcutaneous injection 5,000 Units 5,000 Units, Subcutaneous, EVERY 12 HOURS SCHEDULED (2 times per day), First dose on Thu10/29/10 at 1345, Until Discontinued, Recovery (Recovery-Hospital Unit), Routine Given 10/31/2010 9:00 PM EDT 5,000 Unit s Given 10/30/2010 9:00 PM EDT 5,000 Units Given 10/30/2010 9:00 AM EDT 5,000 Units L eft Arm HYDROmorphone (DILAUDID) 1 mg/mL SUIT ATTENDANT 30 mL Intravenous, SUIT ATTENDANT ONLY, Starting on Thu10/29/10 at 1345, Until Thu10/30/10 at 0849, SUIT ATTENDANT DOSE (0.1 - 0.3 mg): 0.2 mg LOCKOUT INTERVAL (5 - 10 min):7 minutes FOUR HOUR DOSE LIMIT (0.1 - 5 mg): 5 mg, Recovery (Recovery-Hospital Unit) New Syringe/Cartridge 10/29/2010 1:45 PM EDT mL/hr HYDROmorphone (PF) (DILAUDID) 2 mg/mL injection 0.2-0.4 mg 0.2-0.4 mg, Intravenous, EVERY 5 MIN PRN, Starting on Thu10/29/10 at 1307, Until Thu10/29/10 at 1539, Pain, For moderate pain give: 0.2 mg every 5 minute prn For severe pain give: 0.4 mg every 5 minutes prn Maximum dose: 4 mg per hour Hold for respiratory rate less than 10 per minute., PACU Recovery, Routine Given 10/29/2010 1:37 PM EDT 0.4 mg Given 10/29/2010 1:30 PM EDT 0.4 mg Given 10/29/2010 1:13 PM EDT 0.4 mg ketorolac (TORADOL) injection 15 mg 15 mg, Intravenous, EVERY 6 HOURS, 20 doses, First dose on Thu10/29/10 at 1830, Last dose on Thu11/03/10 at 1230, ALTERNATE WITH TYLENOL SO THAT TYLENOL IS GIVEN THEN 3 HOURS LATER TORADOL IS GIVEN AND THEN 3 HOURS LATER TYLENOL IS GIVEN., Recovery (Recovery-Hospital Unit), Routine Given 11/01/2010 6:30 AM EDT 15 mg Given 11/01/2010 12:30 AM EDT 15 mg Given 10/31/2010 6:30 PM EDT 15 mg lactated ringers infusion 100 mL/hr, Intravenous, CONTINUOUS, Starting on Thu10/29/10 at 1330, Until Any 10/31/10 at 1754, Recovery (Recovery-Hospital Unit) New Bag 10/31/2010 7:40 AM EDT 100 mL/hr 100 mL /hr New Bag 10/30/2010 9:32 PM EDT 100 mL/hr 100 mL/hr New Bag 10/30/2010 11:28 AM EDT 100 mL/hr 100 mL/hr metroNIDAZOLE (FLAGYL) 500 mg in sodium chloride 0.9% 100 mL 500 mg, Intravenous, EVERY 8 HOURS, 3 doses, First dose (after last modification) on Thu10/29/10 at 1630, Last dose on Thu10/30/10 at 0830, Administer over 30 Minutes, Give 3 doses post-op, Recovery (Recovery-Hospital Unit) Given 10/30/2010 12:30 AM EDT 500 mg 200 m L/hr Given 10/29/2010 4:30 PM EDT 500 mg 200 mL/hr OXYcodone (ROXICODONE) immediate release tablet 5 mg 5 mg, Oral, EVERY 4 HOURS PRN, Starting on Thu10/30/10 at 1311, Until Thu11/01/10 at 1335, Pain, Routine Given 10/31/2010 12:26 AM EDT 5 mg Given 10/30/2010 3:24 PM EDT 5 mg SUIT ATTENDANT garcia 1 each Intravenous, CONTINUOUS, Starting on Thu10/29/10 at 1345, Until Thu10/30/10 at 0849, Needed for nurse SUIT ATTENDANT pump access., Recovery (Recovery-Hospital Unit) Rate/Dose Verify 10/29/2010 1:45 PM EDT 1 each mL /hr documented in this encounter Active and Recently Administered Medications Times are shown in EDT. Scheduled Medication Order 10/30/2010 10/31/2010 11/01/2010 acetaminophen (TYLENOL) tablet 650 mg (CANCELED) 650 mg, Oral, EVERY 6 HOURS, First dose on Thu10/29/10 at 1345, Until Discontinued, Maximum dose of acetaminophen is 4000 mg from all sources in 24 hours., Recovery (Recovery-Hospital Unit), Routine 0245 (Given - Provider: Ann Saamyoa RN)0745 (Given - Provider: Capo Johansen RN)1345 (Given - Provider: Capo Johansen RN)1945 (Given - Provider: Keerthi Lao RN) 0538 (Given - Provider: Lupe Mendoza RN - Comment: Patient asleep. Will reassess when awake)0745 (Canceled Entry - Provider: Lupe Mendoza RN - Comment: Given at 0530)1200 (Given - Provider: Awa Appiah RN)1800 (Given - Provider: Awa Appiah RN) 0000 (Given - Provider: Lupe Mendoza RN)0600 (Given - Provider: Lupe Mendoza, SYDNEE)1103 (Given - Provider: Ashley Blandon, SYDNEE - Comment: given prior to dc home) ceFAZolin (ANCEF) 1g in dextrose 5% 50mL (COMPLETED) 1,000 mg (1 g), Intravenous, EVERY 8 HOURS, 3 doses, First dose on Thu10/29/10 at 1600, Last dose on Thu10/30/10 at 0800, Administer over 30 Minutes, Recovery (Recovery-Hospital Unit) 0000 (Given - Provider: Ann Samayoa, SYDNEE)0800 (Given - Provider: Capo Johansen, SYDNEE) esomeprazole (NEXIUM) capsule 40 mg (CANCELED) 40 mg, Oral, DAILY, First dose on Thu10/29/10 at 1430, Until Discontinued, Recovery (Recovery-Hospital Unit), Routine 0900 (Given - Provider: Capo Johansen, SYDNEE) 0900 (Given - Provider: Awa Appiah, SYDNEE) 0900 (Given - Provider: Ashley Blandon, SYDNEE) heparin (porcine) subcutaneous injection 5,000 Units (CANCELED) 5,000 Units, Subcutaneous, EVERY 12 HOURS SCHEDULED (2 times per day), First dose on Thu10/29/10 at 1345, Until Discontinued, Recovery (Recovery-Hospital Unit), Routine 0900 (Given - Provider: Capo Johansen, SYDNEE)2100 (Given - Provider: Keerthi Lao RN) 0900 (Not Given - Provider: Awa Appiah, SYDNEE - Reason: Patient/family refused - Comment: Pt refused, pt said he would ambulate)2100 (Given - Provider: Lupe Mendoza RN) 0900 (Not Given - Provider: Ashley Blandon, SYDNEE - Reason: Patient/family refused) ketorolac (TORADOL) injection 15 mg (CANCELED) 15 mg, Intravenous, EVERY 6 HOURS, 20 doses, First dose on Thu10/29/10 at 1830, Last dose on Thu11/03/10 at 1230, ALTERNATE WITH TYLENOL SO THAT TYLENOL IS GIVEN THEN 3 HOURS LATER TORADOL IS GIVEN AND THEN 3 HOURS LATER TYLENOL IS GIVEN., Recovery (Recovery-Hospital Unit), Routine 0030 (Given - Provider: Ann [place], RN)0630 (Given - Provider: Ann Samayoa RN)1230 (Given - Provider: Capo Johansen RN)1830 (Given - Provider: Capo Johansen RN) 0030 (Given - Provider: Lupe Mendoza RN)0630 (Given - Provider: Lupe Mendoza RN)1230 (Given - Provider: Awa Appiah, SYDNEE)1830 (Given - Provider: Awa Appiah RN) 0030 (Given - Provider: Lupe Mendoza RN)0630 (Given - Provider: Lupe Mendoza RN) metroNIDAZOLE (FLAGYL) 500 mg in sodium chloride 0.9% 100 mL (CANCELED) 500 mg, Intravenous, EVERY 8 HOURS, 3 doses, First dose (after last modification) on Thu10/29/10 at 1630, Last dose on Thu10/30/10 at 0830, Administer over 30 Minutes, Give 3 doses post-op, Recovery (Recovery-Hospital Unit) 0030 (Given - Provider: Ann Samayoa RN) Continuous Medication Order 10/30/2010 10/31/2010 11/01/2010 lactated ringers infusion (CANCELED) 100 mL/hr, Intravenous, CONTINUOUS, Starting on Thu10/29/10 at 1330, Until Thu10/31/10 at 1754, Recovery (Recovery-Hospital Unit) 1128 (New Bag - Provider: Capo Johansen RN)2132 (New Bag - Provider: Lupe Mendoza RN) 0740 (New Bag - Provider: Awa Appiah RN)1700 (Stopped - Provider: Awa Appiah RN)1800 (Stopped - Provider: Awa Appiah, SYDNEE) PRN Medication Order 10/30/2010 10/31/2010 11/01/2010 OXYcodone (ROXICODONE) immediate release tablet 5 mg 5 mg, Oral, EVERY 4 HOURS PRN, Starting on Thu10/30/10 at 1311, Until Thu11/01/10 at 1335, Pain, Routine 1524 (Given - Provider: Capo Johansen RN) 0026 (Given - Provider: Lupe Mendoza RN) documented in this encounter Care Teams Scientist Relationship Specialty Start Date End Date Ebenezer [address] MD [address] [place] [address] PCP - General 02/05/10 04/22/11 documented as of this encounter
--- OUTSIDE RECORDS SUMMARY | 2024-03-10 02:03 | XMS_ITS | Encounter Summary ---
[place] [address] Care Team Providers Care Physicist Solid State Name Role Phone Ebenezer Way MD Primary Care Provider Reason for Visit * Reason Onset Date Comments Medication Refill 12/26/2010 Encounter Details Date Type Department Care Team (Late st Contact Info) Description 12/26/2010 [place] [address] Ramonita Pandey MD [facility] [place] [address] IBD (inflammatory bowel disease) Social History Tobacco [...] PM EST Hospital Encounter [place] [phone] Apurva Vivas MD [facility] [place] [address] 04/01/2024 12:35 PM EST - 04/01/2024 2:17 PM EST Surgery [place] [address] Apurva Vivas MD [facility] [place] [address] ANORECTAL EXAM, REQUIRING ANESTHESIA, DIAGNOSTIC (WRVU 1.8) 04/26/2024 3:00 PM EST Office [place] [phone] Apurva Vivas MD [facility] [place] [address] Scheduled Procedures Name Priority Associated Diagnoses Date/Ti [...] colitis documented in this encounter Care Teams Physicist Solid State Relationship Specialty Start Date End Date Ebenezer Way MD [address] [place] [id number] PCP - General 02/05/10 04/22/11 documented as of this encounter
--- OUTSIDE RECORDS SUMMARY | 2024-03-10 02:03 | XMS_ITS | Encounter Summary ---
Author Organization [facility]ly [facility] [place] [address] Care Team Providers Care Billet Straightener Name Role Phone Ebenezer Way MD Primary Care Provider Reason for Visit * Reason Comments Medication Refill Encounter Details Date Type Department Care Team (Late st Contact Info) Description 07/31/2010 Refill [place] [phone] Tan Garcia MD [facility] [place] [address] Social History Tobacco Use Types Packs/Day Years [...] PM EST Hospital Encounter [place] [phone] Apurva Vivas MD [facility] [place] [address] 04/01/2024 12:35 PM EST - 04/01/2024 2:17 PM EST Surgery [place] [address] Apurva Vivas MD [facility] [place] [address] ANORECTAL EXAM, REQUIRING ANESTHESIA, DIAGNOSTIC (WRVU 1.8) 04/26/2024 3:00 PM EST Office Visit [place] [address] Apurva Vivas MD [facility] [place] [address] Scheduled Procedures Name Priority Associated Diagnoses Date/Ti tx ANORECTAL EXAM, REQUIRING ANESTHESIA, DIAGNOSTIC (WRVU 1.8) perianal crohns disease w/fistula 04/01/2024 12:35 PM EST SURGICAL TREATMENT OF ANAL FISTULA COMPLEX OR MULTIPLE W\WO SETON PLACEMENT (WRVU 6.39) perianal crohns disease w/fistula 04/01/2024 12:35 PM EST documented as of this encounter Visit Diagnoses Not on filedocumented in this encounter Care Teams Billet Straightener Relationship Specialty Start Date End Date Ebenezer Way MD [address] [address] PCP - General 02/05/10 04/22/11 documented as of this encounter
--- OUTSIDE RECORDS SUMMARY | 2024-03-10 02:03 | XMS_ITS | Encounter Summary ---
[place] [address] Care Team Providers Care Bridge Toll Collector Name Role Phone Ebenezer Way MD Primary Care Provider [phone] Encounter Details Date Type Department Care Team (Late st Contact Info) Description 10/29/2010 7:30 AM EDT - 10/29/2010 11:18 AM EDT [place] [address] Torito Mohan MD @LAPAROSCOPIC ASSISTED COLECTOMY, PARTIAL, REM.TERMINAL ILEUM (WRVU 22.95) Social History Tobacco Use Types Packs/Day Years [...] (even if cooked): apple peels, asparagus, celery, tunisian vegetables, citrus pulp, coconut, mushrooms, popcorn, nuts, [...] these removed by the General Surgerynurses on (see below). Follow up Appointments: 1. You have a follow-up appointment with the General Surgery Nurses at the [facility] Counsel[facility] as above for staple removal and wound check. 2. You have a follow up appointment with Dr. Mohan at the General [facility] on November 15, at 4:00 PM. You will receive a phone call and/or a letter in the mail with information about your appointments.Please call [phone] (clinic number for appointments only) to confirm [...] AND HOLIDAYS: ASK FOR THE SURGERY RESIDENT HOOP COILER IF ANY OF THE ABOVE OCCUR. Post-Colorectal [...] (even if cooked): apple peels, asparagus, celery, tunisian vegetables, citrus pulp, coconut, mushrooms, popcorn, nuts, seeds, wild rice, whole kernel corn, and the skins of fruit and many other difficult to digest and pass foods should be avoided ?? If uncertain about a food, eat it in moderation and follow with extra fluid by mouth. Igor Woodruff Home Medication Instructions PABLITO:[id number] Printed on:11/01/10 1245 Medication Information esomeprazole (NEXIUM) 20 mg capsule [...] Please follow up with your outpatient PCPand/or Dedicated Owner Operator regarding your need for this medication in [...] regarding imuran, advised todc after conversation with university internship and upper level, reprinted AVS with amended [...] and arm improving Scheduled Meds: ??? DISCONTD: HEAVY EQUIPMENT SERVICE MANAGER garcia ??? DISCONTD: HEAVY EQUIPMENT SERVICE MANAGER garcia ??? esomeprazole 40 mg Oral Daily [...] resting at present. Eyes closed.Appears asleep. Call Solano within reach. Will continue to monitor. * [...] reviewed. Patient lives with his Casi in [facility]. Patient has P non-referral insurance. No Advance Directives on file here at [facility]. Patient is POD #1 laparoscopic assisted colectomy for crohns ileitis. At this time patient is NPO except hard candy/chewing gum, IVF at 100/hr. HEAVY EQUIPMENT SERVICE MANAGER D/C, Oxycodone po q4hr prn. Toradol IV q6hr scheduled [id number]. Davidson catheter D/C this afternoon. 94% on [...] RUE, - expect this should resolve. D/C HEAVY EQUIPMENT SERVICE MANAGER Oral analgesics plus Toradol D/c davidson Hard [...] Meds: ??? lactated ringers 100 mL/hr (10/29/10 2355) ??? naloxone ??? DISCONTD: lactated ringers ??? DISCONTD: HYDROmorphone ??? DISCONTD: HEAVY EQUIPMENT SERVICE MANAGER garcia 1 each (10/29/10 1345) Physical Exam: [...] monitor clinical GI status Pain - d/c HEAVY EQUIPMENT SERVICE MANAGER Neuro - follow daily exam of right hand and arm; if no improvement, consider neuro and/or anesthesia consult Pulm - Incentive spirometry ID - d/c antibiotics Prophylaxis - Nexium - SCDS General - NPO, except for meds and ice chips - ambulate as tolerated Disposition: anticipate a stay of 2-3 days Ethics: FULL CODE OBDULIA SON * Ann Samayoa, RN - 10/30/2010 6:31 AM EDT Patient [...] nausea and shortness of breath. Pt using HEAVY EQUIPMENT SERVICE MANAGER appropriately for pain. Davidson patent. PIV patent. [...] Woodruff is a 35 y.o. male sp [id number] currently in stable condition and recovering well, [...] 10/29/2010 1:52 PM EDT 1350 Pt given HEAVY EQUIPMENT SERVICE MANAGER and inst on use documented in this [...] Course: The patient was admitted [facility] to [facility], under the care of General [...] made with the Dr. Mohan at the [facility] General Surgery Outpatient [facility]. He was discharged to home, in stable condition and with pain well-controlled. Important Studies and Lab Data: Recent Labs Basename 11/01/10 0616 10/31/10 0623 10/30/10 0533 ??? WBC 4.7 4.8 5.4 ??? HGB 12.8* 12.7* 12.4* ??? PLATELET 179 168 197 Recent Labs Basename 11/01/1061510/31/1062210/30/10532 ??? NA 140 141 140 ??? K 3.4* 3.3* 3.4* ??? CL 105 106 105 ??? CO2 29 27 29 ??? BUN 7* 11 9* ??? CREATININE 0.73* 0.72* 0.75* ??? GLUCOSE -- -- -- Recent Labs Basename 11/01/1061510/31/1062210/30/10532 ??? CALCIUM 9.0 8.6 8.6 ??? MAGNESIUM [...] (even if cooked): apple peels, asparagus, celery, tunisian vegetables, citrus pulp, coconut, mushrooms, popcorn, nuts, [...] at the General Surgery Outpatient [facility] - Peer [facility] 4 as above for staple removal and wound check. 2. You have a follow up appointment with Dr. Mohan at the General Surgery Outpatient [facility] - [facility] 4 on November 15, at 4:00 PM. You will receive a phone call and/or a letter in the mail with information about your appointments.Please call [phone] (clinic number for appointments only) to confirm [...] AND HOLIDAYS: ASK FOR THE SURGERY RESIDENT HOOP COILER IF ANY OF THE ABOVE OCCUR. Post-Colorectal [...] (even if cooked): apple peels, asparagus, celery, tunisian vegetables, citrus pulp, coconut, mushrooms, popcorn, nuts, seeds, wild rice, whole kernel corn, and the skins of fruit and many other difficult to digest and pass foods should be avoided ?? If uncertain about a food, eat it in moderation and follow with extra fluid by mouth. Igor Woodruff Home Medication Instructions PABLITO:[id number] Printed on:11/01/10 3726 Medication Information esomeprazole (NEXIUM) 20 mg capsule [...] Please follow up with your outpatient PCPand/or Dedicated Owner Operator regarding your need for this medication in the future. Future Appointments and Orders Future Appointments: Provider: Department: Dept Phone: Center: 11/15/2010 4:00 PM Torito Mohan MD [facility] For questions regarding this document or issues relating to this hospitalization on the General Surgery Service, please contact your inpatient physician through the [facility] Certified Technician Specialist . Issues after hours and on weekends will be handled by the General Surgery staff on-call. Signed: OBDULIA SON * Op Note - Torito Mohan MD - 10/29/2010 1:19 PM EDT [facility] Operative Note Patient Name: Igor Woodruff : [id number] MR#: [id number] Case Date: 10/29/2010 Surgeon: Surgeon(s) and Role: * TORITO MOHAN MD - Primary * BIANCA VERDUZCO MD - Resident-Surgeon Chief Preoperative diagnosis: CROHNS ILEITIS Postoperative diagnosis: CHROHNS ILEITIS Procedure(s): ??LAPAROSCOPIC ASSISTED COLECTOMY, PARTIAL, REM.TERMINAL ILEUM General Preoperative Diagnosis: Crohn's ileocolitis with small-bowel obstruction. Postoperative Diagnosis: Crohn's ileocolitis with small-bowel obstruction. Procedure: Laparoscopic ileocolic resection. Surgeon: Torito Mohan M.D. Document Review Specialist: Bianca Verduzco M.D. Anesthesia: General. Indications: The [...] general anesthesia, the patient was placed in [facility] stirrups. The abdomen was prepped [...] of each piece of bowel was excised. Suyp-kq-xkzm anastomosis was performed using a LARRY stapler. [...] (Latest Contact Info) Description 04/01/2024 12:35 PM [facility] Hospital [place] [address] Apurva Vivas MD [facility] [place] [address] 04/01/2024 12:35 PM EST - 04/01/2024 2:17 PM EST [place] [phone] Apurva Vivas MD [facility] [place] [address] ANORECTAL EXAM, REQUIRING ANESTHESIA, DIAGNOSTIC (WRVU 1.8) 04/26/2024 3:00 PM EST Office [place] [phone] Apurva Vivas MD [facility] [place] [address] Scheduled Procedures Name Priority Associated Diagnoses Date/Ti [...] JESENIA FRAGAENNIUM * (ABNORMAL) BMP w/fasting Glucose (11/01/2010 6:16 AM EDT) Glucose Fasting 123(H) 65 - 99 mg/dL [...] of Diabetes Mellitus, Position Statement from the [place] [employer]. ??Diabetes Care, Volume 33, Supplement [...] AM EDT Torito Mohan MD CHEMISTRY ORDERABLES CERMARVIN FRAGAENNIUM * (ABNORMAL) REFLEX LAB-A-DIFF (10/31/2010 6:23 AM [...] EDT Torito Mohan MD HEMATOLOGY ORDERABLE S [facility] * (ABNORMAL) CBC (with Diff) (10/31/2010 [...] CERNER MILLENNIUM * (ABNORMAL) BMP w/fasting Glucose (10/31/2010 6:23 [...] of Diabetes Mellitus, Position Statement from the [place] [employer]. ??Diabetes Care, Volume 33, Supplement [...] Est Glomerular Filtration Rate >60 >=60 CERNER PHILLYENNIUM Comment: The National Kidney Disease Education Program [...] x10(3)/mc L CERNER MILLENNIUM Blood specimen (specimen) 10/30/2010 5:33 AM EDT 10/30/2010 6:10 AM EDT Torito Mohan MD HEMATOLOGY ORDERABLE S Performing Organization Address [facility] de Phone Number JESENIA GOLDBERG * Phosphorus (10/30/2010 5:33 AM EDT) Phosphorus 3.0 2.5 - 4.5 mg/dL CERMARVIN FRAGAENNIUM Blood specimen (specimen) 10/30/2010 5:33 AM EDT 10/30/2010 6:10 AM EDT Torito Mohan MD CHEMISTRY ORDERABLES Performing Organization Address [facility] Co de Phone Number JESENIA LUAIUM * Magnesium (10/30/2010 5:33 AM EDT) Magnesium 0.73 0.69 - 1.07 mmol/L CERMARVIN FRAGAENNIUM Blood specimen (specimen) 10/30/2010 5:33 AM EDT 10/30/2010 6:10 AM EDT Torito Mohan MD CHEMISTRY ORDERABLES JESENIA LUAIUM * (ABNORMAL) CMP w/fasting Glucose (10/30/2010 [...] of Diabetes Mellitus, Position Statement from the [place] Diabetes [employer]. ??Diabetes Care, Volume 33, Supplement [...] AM EDT Torito Mohan MD CHEMISTRY ORDERABLES [facility] * (ABNORMAL) CBC (with Diff) (10/30/2010 5:33 [...] Torito Mohan MD HEMATOLOGY ORDERABLE S JESENIA LUAIUM * Surgical Pathology Report (10/29/2010 1:05 PM EDT) Pathologist [facility] Surgical Pathology Report [id number] ? Location: 4WST; 0403; B The signing pathologist has (i) [...] tortuous and adhesed upon ? itself with [id number]-[id number] fistulae between ?loops of small bowel. ??The [...] section of bowel; (A5) colonic margin; (A6-A10) commissary representative sections of mucosa of larger segment [...] in rendering the final pathologic diagnosis. [facility] 10/29/2010 1:05 PM EDT Torito Mohan MD PATHOLOGY/CYTOLOGY O [place] Performing Organization Address [facility] de Phone Number [facility] * Specimen to Pathology (surgical or derm) (10/29/2010 11:28 AM EDT) AP Specimen 10/29/2010 11:2 8 AM EDT 10/29/2010 11:28 AM EDT Narrative [facility] - 10/29/2010 11:28 AM EDT Specimen requisition ordered. ??Separate Pathology report to follow Torito Mohan MD PATHOLOGY/CYTOLOGY O [place] Performing Organization Address [facility]/ZIP Co de Phone Number JESENIA GOLDBERG documented in this encounter Visit Diagnoses Not on filedocumented in this encounter Administered Medications Inactive Administered Medications - up to 3 most recent administrations Medication Order MAR Action Action Date Dose Rate Site bacitracin injection ONCE PRN, 1 dose, Starting on Thu10/29/10 at 1219, Until Thu10/29/10 at 1219, Intra-Operative (Intra-Procedure), Routine Given 10/29/2010 12:19 PM EDT 50,000 Units 19- Surgical Site ceFAZolin (ANCEF) 2g in dextrose 5% 100mL 2 g, Intravenous, ONCE, 1 dose, On Thu10/29/10 at 0715, Administer over 30 Minutes, Redose after 4 hours., Day of Surgery (Day of Procedure) Given 10/29/2010 7:43 AM EDT 2 g Left Arm heparin (porcine) subcutaneous injection 5,000 Units 5,000 Units, Subcutaneous, ONCE, 1 dose, On Thu10/29/10 at 0715, Day of Surgery (Day of Procedure), Routine Given 10/29/2010 8:05 AM EDT 5,000 Units metroNIDAZOLE (FLAGYL) 500 mg in sodium chloride 0.9% 100 mL 500 mg, Intravenous, ONCE, 1 dose, On Thu10/29/10 at 0715, Administer over 30 Minutes, Redose after 8 hours., Day of Surgery (Day of Procedure) Given 10/29/2010 7:35 AM EDT 500 mg Left Arm documented in this encounter Active and Recently Administered Medications Times are shown in EDT. Scheduled Medication Order 10/30/2010 10/31/2010 11/01/2010 acetaminophen (TYLENOL) tablet 650 mg (CANCELED) 650 mg, Oral, EVERY 6 HOURS, First dose on Thu10/29/10 at 1345, Until Discontinued, Maximum dose of acetaminophen is 4000 mg from all sources in 24 hours., Recovery (Recovery-Hospital Unit), Routine 0245 (Given - Provider: Ann Samayoa RN)0745 (Given - Provider: Capo Johansen, SYDNEE)1345 (Given - Provider: Capo Johansen, SYDNEE)1945 (Given - Provider: Keerthi Lao RN) 0538 (Given - Provider: Lupe Mendoza RN - Comment: Patient asleep. Will reassess when awake)0745 (Canceled Entry - Provider: Lupe Mendoza RN - Comment: Given at 0530)1200 (Given - Provider: Awa Appiah, SYDNEE)1800 (Given - Provider: Awa Appiah RN) 0000 [...] (Recovery-Hospital Unit) 0000 (Given - Provider: Ann Samayoa RN)0800 (Given - Provider: Capo Johansen RN) esomeprazole (NEXIUM) capsule 40 mg (CANCELED) 40 mg, Oral, DAILY, First dose on Thu10/29/10 at 1430, Until Discontinued, Recovery (Recovery-Hospital Unit), Routine 0900 (Given - Provider: Capo Johansen RN) 0900 (Given - Provider: Awa Appiah, SYDNEE) 0900 (Given - Provider: Ashley Blandon, SYDNEE) heparin (porcine) subcutaneous injection 5,000 Units (CANCELED) 5,000 Units, Subcutaneous, EVERY 12 HOURS SCHEDULED (2 times per day), First dose on Thu10/29/10 at 1345, Until Discontinued, Recovery (Recovery-Hospital Unit), Routine 0900 (Given - Provider: Capo Johansen, SYDNEE)2100 (Given - Provider: Keerthi Lao RN) 0900 (Not Given - Provider: Awa Appiah RN - Reason: Patient/family refused - Comment: Pt refused, pt said he would ambulate)2100 (Given - Provider: Lupe Mendoza RN) 0900 (Not Given - Provider: Ashley Blandon RN - Reason: Patient/family refused) ketorolac (TORADOL) injection 15 mg (CANCELED) 15 mg, Intravenous, EVERY 6 HOURS, 20 doses, First dose on Thu10/29/10 at 1830, Last dose on Thu11/03/10 at 1230, ALTERNATE WITH TYLENOL SO THAT TYLENOL IS GIVEN THEN 3 HOURS LATER TORADOL IS GIVEN AND THEN 3 HOURS LATER TYLENOL IS GIVEN., Recovery (Recovery-Hospital Unit), Routine 0030 (Given - Provider: Ann Samayoa RN)0630 (Given - Provider: Ann Samayoa RN)1230 (Given - Provider: Capo Johansen RN)1830 (Given - Provider: Capo Johansen RN) 0030 (Given - Provider: Lupe Mendoza RN)0630 (Given - Provider: Lupe Mendoza RN)1230 (Given - Provider: Awa Appiah RN)1830 (Given - Provider: Awa Appiah RN) 0030 [...] Awa Appiah RN)1700 (Stopped - Provider: Awa Appiah, SYDNEE)1800 (Stopped - Provider: Awa Appiah, SYDNEE) PRN Medication Order 10/30/2010 10/31/2010 11/01/2010 OXYcodone (ROXICODONE) immediate release tablet 5 mg 5 mg, Oral, EVERY 4 HOURS PRN, Starting on Thu10/30/10 at 1311, Until Thu11/01/10 at 1335, Pain, Routine 1524 (Given - Provider: Capo Joahnsen RN) 0026 (Given - Provider: Lupe Mendoza RN) documented in this encounter Care Teams Bridge Toll Collector Relationship Specialty Start Date End Date Ebenezer Way MD [address] [place] [address] PCP - General 02/05/10 04/22/11 documented as of this encounter
--- OUTSIDE RECORDS SUMMARY | 2024-03-10 02:03 | XMS_ITS | Encounter Summary ---
Author Organization Count Includes [facility] [address] Care Team Providers Care Returns Processor Name Role Phone Ebenezer Way MD Primary Care Provider [phone] Encounter Details Date Type Department Care Team (Late st Contact Info) Description 10/29/2010 7:28 AM EDT Anesthesia Event [place] [phone] Warren Toscano MD [facility] [place] [address] Guadalupe Dubois CRNA Anesthesia Record Procedure Summary Procedure Name Responsible Anesthesiologist Anesthesia Start Time Anesthesia Stop Time @LAPAROSCOPIC ASSISTED COLECTOMY, PARTIAL, REM.TERMINAL ILEUM (WRVU 22.95) (Abdomen) Warren Toscano MD 10/29/10 0728 10/29/10 1303 Events Date Time Event Comment 10/29/2010 0728 Start 0829 1303 Stop Meds * Agents No agents on file. * Blood No blood administrations on file. Lines, Drains, and Airways Type Details Placement Removal (RETIRED) Peripheral IV Line - Single Lumen 10/29/10; 0657; 11/01/10; 1024 10/29/10 0657 by Keerthi Guthrie RN 11/01/10 1024 by Oz Kenny LNA Urethral Catheter 10/29/10; 0800; indwelling double lumen catheter; latex; 16; inserted; 1; drainage bag to dependent drainage; 10/30/10; 1430 10/29/10 0800 by Bianca Villalobos RN 10/30/10 1430 by Capo Johansen RN Incision 10/29/10; 0830; abdomen; 11/11/21 (LDA cleanup utility RA#[id number]); 1715 (LDA cleanup utility RA#[id number]) 10/29/10 0830 by Bianca Villalobos RN 11/11/21 1715 by Cisco Stevens Incision 10/29/10; 0830; abdomen (4 trocar sites); 11/11/21 (LDA cleanup utility RA#[id number]); 1715 (LDA cleanup utility RA#[id number]) 10/29/10 0830 by Bianca Villalobos RN 11/11/21 1715 by Cisco Stevens documented in this encounter Social History Tobacco [...] OR Notes * Anesthesia Postprocedure Evaluation - Warren Toscano MD - 10/29/2010 3:52 PM EDT Patient: Igor Woodruff Procedure(s) Performed: ??LAPAROSCOPIC ASSISTED COLECTOMY, PARTIAL, REM.TERMINAL ILEUM - LITHOTOMY,YELLOW FINS -- LIGASURE MIRALAX PREP Patient location: PACU Post-op pain: Adequate analgesia Post-op nausea: no nausea or vomiting Last Vitals: Filed Vitals: 10/29/10 1530 BP: 137/81 Pulse: 96 Temp: 37.5 ??C (99.5 ??F) Resp: 16 Post-op cardiovascular and respiratory status: is stable Level of consciousness: awake, alert and oriented Complications: possible nerve injury. Patient complains of numbness and tingling in the first 3 fingers of his R hand. Patient examined, and this fact confirmed. Also confirmed with CERTIFIED PROSTHETIST VICE PRESIDENT that arm waspadded extensively during procedure per our standard positioning protocol, and checked multiple times to make sure that it was not hyperextended on the arm board. Of note, the surgical team requested significant L side down positioning to help in their exposure. For now, will monitor closely, Fluid Status: normal * Anesthesia Preprocedure Evaluation - Warren Toscano MD - 10/29/2010 8:27 AM EDT Anesthesia Evaluation Patient summary reviewed and Nursing notes reviewed No hx of anesthetic complications Airway Mallampati: I TM distance: >3 FB Neck ROM: full Dental - normal exam Pulmonary - negative ROS and normal exam breath sounds clear to auscultation Cardiovascular - negative ROS and normal exam Exercise tolerance: good Rhythm: regular Rate: normal Neuro/Psych - negative ROS GI/Hepatic/Renal (+) GERD well controlled, bowel prep Comments: History of crohn's disease Endo/Other Abdominal - normal exam Anesthesia Plan ASA 2 General with intravenous induction Anesthetic plan and risks discussed with patient. Use of blood products discussed with and consented by. Plan discussed with CERTIFIED PROSTHETIST VICE PRESIDENT. documented in this encounter Plan of Treatment Upcoming Encounters Date Type Department Care Team (Latest Contact Info) Description 04/01/2024 12:35 PM EST Hospital Encounter [place] [address] Apurva Vivas MD [facility] [place] [address] 04/01/2024 12:35 PM EST - 04/01/2024 2:17 PM EST Surgery [place] [address] Apurva Vivas MD [facility] [place] [place] [address] ANORECTAL EXAM, REQUIRING ANESTHESIA, DIAGNOSTIC (WRVU 1.8) 04/26/2024 3:00 PM EST Office Visit [place] [address] Apurva Vivas MD [facility] [place] [address] Scheduled Procedures Name Priority Associated Diagnoses Date/Ti me ANORECTAL EXAM, REQUIRING ANESTHESIA, DIAGNOSTIC (WRVU 1.8) perianal crohns disease w/fistula 04/01/2024 12:35 PM EST SURGICAL TREATMENT OF ANAL FISTULA COMPLEX OR MULTIPLE W\WO SETON PLACEMENT (WRVU 6.39) perianal crohns disease w/fistula 04/01/2024 12:35 PM EST documented as of this encounter Visit Diagnoses Not on filedocumented in this encounter Care Teams Returns Processor Relationship Specialty Start Date End Date Ebenezer Way MD [address] [place] [address] PCP - General 02/05/10 04/22/11 documented as of this encounter
--- OUTSIDE RECORDS SUMMARY | 2024-03-10 02:03 | XMS_ITS | Encounter Summary ---
Author Organization [facility] Address [facility] [place] [address] Care Team Providers Care Dormitory Keeper Name Role Phone Ebenezer Way MD Primary Care Provider Reason for Visit * Reason Onset Date Comments Results 04/04/2011 Encounter Details Date Type Department Care Team (Late st Contact Info) Description 04/04/2011 Telephone [place] [phone] Ramonita Pandey MD [facility] [place] [address] Results Social History Tobacco Use Types Packs/Day Years [...] encounter Miscellaneous Notes * Telephone Encounter - Ramonita Pandey MD - 04/04/2011 2:47 PM EST Left a message at Mr. Woodruff at his home phone with lab results. Due to low WBC and elevated LFTs, would like him to stop AZA and then have labs checked again in 2 weeks. Once the labs normalized,will restart AZA at 200 mg PO qd. documented in this encounter Plan of Treatment Upcoming Encounters Date Type Department Care Team (Latest Contact Info) Description 04/01/2024 12:35 PM EST Hospital Encounter [place] [address] Apurva Vivas MD [facility] [place] [address] 04/01/2024 12:35 PM EST - 04/01/2024 2:17 PM EST [place] [phone] Apurva Vivas MD [facility] [place] [address] ANORECTAL EXAM, REQUIRING ANESTHESIA, DIAGNOSTIC (WRVU 1.8) 04/26/2024 3:00 PM EST Office Visit [place] [phone] Apurva Vivas MD [facility] [place] [address] Scheduled Procedures Name Priority Associated Diagnoses Date/Ti me ANORECTAL EXAM, REQUIRING ANESTHESIA, DIAGNOSTIC (WRVU 1.8) perianal crohns disease w/fistula 04/01/2024 12:35 PM EST SURGICAL TREATMENT OF ANAL FISTULA COMPLEX OR MULTIPLE W\WO SETON PLACEMENT (WRVU 6.39) perianal crohns disease w/fistula 04/01/2024 12:35 PM EST documented as of this encounter Visit Diagnoses Not on filedocumented in this encounter Care Teams Dormitory Keeper Relationship Specialty Start Date End Date Ebenezer Way MD [address] [place] [address] PCP - General 02/05/10 04/22/11 documented as of this encounter
--- OUTSIDE RECORDS SUMMARY | 2024-03-10 02:03 | XMS_ITS | Encounter Summary ---
[place] [address] Care Team Providers Care Coffee Maker Servicer Name Role Phone bEenezer Way MD Primary Care Provider [phone] Encounter Details Date Type Department Care Team (Late st Contact Info) Description 12/25/2010 Telephone [place] [phone] Swetha Berry, RN Social History Tobacco Use [...] Telephone Encounter - Ramonita Pandey MD - 12/25/2010 11:08 PM EDT As discussed with him in the office on 12/18 and as written on his patient instructions, he should restart his imuran 250 mg PO qd. As written to him in my 12/19 letter, labs were all normal. He shouldhave then rechecked in one month and then q3 mos. Thanks C * Telephone Encounter - MosSwetha Anderson RN - 12/25/2010 11:41 AM EDT Received a call asking if oKbe can resume his 6MP (pt recently had surgery) Will review with Dr Pandey documented in this encounter Plan of Treatment Upcoming Encounters Date Type Department Care Team (Latest Contact Info) Description 04/01/2024 12:35 PM EST Hospital Encounter [place] [address] Apurva Vivas MD [facility] [place] [address] 04/01/2024 12:35 PM EST - 04/01/2024 2:17 PM EST Surgery [place] [address] Apurva Vivas MD [facility] [place] [address] ANORECTAL EXAM, REQUIRING ANESTHESIA, DIAGNOSTIC (WRVU 1.8) 04/26/2024 3:00 PM EST Office [place] [address] Apurva Vivas MD [facility] [place] [address] Scheduled Procedures Name Priority Associated Diagnoses Date/Ti me ANORECTAL EXAM, REQUIRING ANESTHESIA, DIAGNOSTIC (WRVU 1.8) perianal crohns disease w/fistula 04/01/2024 12:35 PM EST SURGICAL TREATMENT OF ANAL FISTULA COMPLEX OR MULTIPLE W\WO SETON PLACEMENT (WRVU 6.39) perianal crohns disease w/fistula 04/01/2024 12:35 PM EST documented as of this encounter Visit Diagnoses Not on filedocumented in this encounter Care Teams Coffee Maker Servicer Relationship Specialty Start Date End Date Ebenezer Way MD [address] [place] [address] PCP - General 02/05/10 04/22/11 documented as of this encounter
--- OUTSIDE RECORDS SUMMARY | 2024-03-10 02:03 | XMS_ITS | Encounter Summary ---
Author Organization [facility] [place] [address] Care Team Providers Care Character Impersonator Name Role Phone Ebenezer Way MD Primary Care Provider [phone] Encounter Details Date Type Department Care Team (Late st Contact Info) Description 03/03/2011 External Results [place] [phone] Ramonita Pandey MD [facility] [place] [address] Social History Tobacco Use Types Packs/Day Years [...] PM EST Hospital Encounter [place] [phone] Apurva Vivas MD [facility] [place] [address] 04/01/2024 12:35 PM EST - 04/01/2024 2:17 PM EST Surgery [place] [address] Apurva Vivas MD [facility] [place] [address] ANORECTAL EXAM, REQUIRING ANESTHESIA, DIAGNOSTIC (WRVU 1.8) 04/26/2024 3:00 PM EST Office Visit [place] [phone] Apurva Vivas MD [facility] [place] [address] Scheduled Procedures Name Priority Associated Diagnoses Date/Ti me ANORECTAL EXAM, REQUIRING ANESTHESIA, DIAGNOSTIC (WRVU 1.8) perianal crohns disease w/fistula 04/01/2024 12:35 PM EST SURGICAL TREATMENT OF ANAL FISTULA COMPLEX OR MULTIPLE W\WO SETON PLACEMENT (WRVU 6.39) perianal crohns disease w/fistula 04/01/2024 12:35 PM EST documented as of this encounter Procedures Procedure Name Priority Date/Time Associated Diagnosis Comments LAB SCAN Routine 02/23/2011 documented in this encounter Results * Scan Doc: Lab (02/23/2011) L Timothy Pandey MD MEDIA MGR SCAN EXT O RDR/RSLT documented in this encounter Visit Diagnoses Not on filedocumented in this encounter Care Teams Character Impersonator Relationship Specialty Start Date End Date Ebenezer Way MD [address] [place] [address] PCP - General 02/05/10 04/22/11 documented as of this encounter
--- OUTSIDE RECORDS SUMMARY | 2024-03-10 02:03 | XMS_ITS | Encounter Summary ---
Author Organization [place] [address] Care Team Providers Care Care Support Representative Name Role Phone Irwin Gonsalez DO Primary Care Provider Encounter Details Date Type Department Care Team (Latest Contact Info) Description 05/01/2011 9:51 AM EST - 05/01/2011 2:00 PM EST Hospital [place] [address] Ramonita Matamoros MD [facility] [place] [address] Crohn's ileitis Discharge Disposition: Home Social History [...] Sign Reading Time Taken Comments Blood Pressure 124/81 05/01/2011 12:54 PM EST Pulse 82 05/01/2011 12:54 PM EST Temperature 36.4 ??C (97.5 ??F) 05/01/2011 11:[address] Respiratory Rate 16 05/01/2011 12:54 PM EST Oxygen Saturation 95% 05/01/2011 12:54 PM EST Inhaled Oxygen Concentration - - Weight - - Height - - Body Mass Index - - documented in this encounter Discharge Instructions * Discharge Instructions* Katie Maya RN - 05/01/2011 12:55 PM EST You may have received medication before and/or during your procedure which effects judgement and reaction time. Do not drive, operate machinery, drink alcoholic beverages, or make important decisions for 24 hours. Be careful on stairs, as you may be unsteady on your feet. You may eat a regular diet as tolerated. Do not smoke if you are alone. IV site-- slight redness or tenderness is normal. You may use a warm compress. If tenderness and redness increases for foul drainage occurs please contact your M.D. Please call [phone] before 5pm with problems, questions or concerns. After 5pm call [phone] and ask to speak with the call center operator tobacco conditioner. Discharge instructions reviewed with patient who expresses's understanding. * Attachments The following attachments cannot be sent through Care Everywhere. * COLONOSCOPY: WHAT TO EXPECT AT HOME (SWEDISH) * SEDATION FOR A MEDICAL PROCEDURE: AFTER YOUR VISIT (SWEDISH) documented in this encounter Medications at Time [...] 11/04/2010 11/08/2012 documented as of this encounter H&P Notes * Ramonita Matamoros MD - 05/01/2011 11:42 AM EST Gastroenterology and Hepatology Pre-Procedure History and Physical Exam Procedure: Colonoscopy Indication: Crohn's restaging 36 yo with h/o stricturing ileal Crohn's s/p resection 10/2010. Here for restaging. Feeling well. Nodiarrhea, abd pain, nausea or vomiting. Patient Active Problem List Diagnoses Code ??? Crohn's ileitis 555.0BF ??? Abnormal liver function test 790.6BA ??? GERD (gastroesophageal reflux disease) 530.81S EXAM: HEENT: Airway examined, oropharynx clear LUNGS: Clear to auscultation HEART: Regular rate and rhythm, normal S1, S2 ABDOMEN: Normal bowel sounds, soft, non tender, non distended, A/P Proceed with colonoscopy. Risks and benefits of the procedure explained to the patient. Consent signed. documented in this encounter Miscellaneous Notes * Miscellaneous - Provider, Scanning - 05/02/2011 12:58 AM EST * Op Note - Ramonita Matamoros MD - 05/01/2011 2:08 PM EST Please see the Provation procedure report in the Procedures tab in eDH. * Miscellaneous - Provider, Scanning - 05/01/2011 12:32 PM EST documented in this encounter Plan of Treatment Upcoming Encounters Date Type Department Care Team (Latest Contact Info) Description 04/01/2024 12:35 PM EST Hospital Encounter [place] [address] Apurva Vivas MD [facility] [place] [address] 04/01/2024 12:35 PM EST - 04/01/2024 2:17 PM EST Surgery [place] [phone] Apurva Vivas MD [facility] [place] [address] ANORECTAL EXAM, REQUIRING ANESTHESIA, DIAGNOSTIC (WRVU 1.8) 04/26/2024 3:00 PM EST Office [place] [address] Apurva Vivas MD [facility] [place] [address] Scheduled Procedures Name Priority Associated Diagnoses Date/Ti me ANORECTAL EXAM, REQUIRING ANESTHESIA, DIAGNOSTIC (WRVU 1.8) perianal crohns disease w/fistula 04/01/2024 12:35 PM EST SURGICAL TREATMENT OF ANAL FISTULA COMPLEX OR MULTIPLE W\WO SETON PLACEMENT (WRVU 6.39) perianal crohns disease w/fistula 04/01/2024 12:35 PM EST documented as of this encounter Procedures Procedure Name Priority Date/Time Associated Diagnosis Comments COLONOSCOPY FLEXIBLE-WITH BX (MSCHAD) Routine 05/02/2011 6:34 AM EST Crohn's ileitis SURGICAL PATHOLOGY REPORT Routine 05/01/2011 2:18 PM EST SPECIMEN TO PATHOLOGY Routine 05/01/2011 12:47 PM EST SPECIMEN TO PATHOLOGY Routine 05/01/2011 12:47 PM EST COLONOSCOPY Routine 05/01/2011 12:22 PM EST COLONOSCOPY FLEXIBLE, WITH BX (WRVU 3.56) 05/01/2011 12:19 PM EST Crohn's ileitis DIFFERENTIAL, AUTOMATED Routine 05/01/2011 12:08 PM EST CBC (WITH DIFF) Routine 05/01/2011 12:08 PM EST HEPATIC FUNCTION PANEL Routine 05/01/2011 12:08 PM EST documented in this encounter Results * SURGICAL PATHOLOGY REPORT (05/01/2011 2:18 PM EST) Surgical Pathology Report ? [facility] ? Provider: ?? Ramonita MATAMOROS ?Pt. Name: ?? LALY TOURE ? Acc #: ?[id number] ?Pt. ? Col Date: ?? 05/01/2011 ? /Sex: ?1975,(36 years),Male ? Rec Date: ?? 05/01/2011 ? LOC: ?4T ? SURGICAL PATHOLOGY ? ---Pathologic Diagnosis--- ? A - Right colon, biopsy: ? Colonic mucosa, negative for diagnostic abnormality. ? B - Left colon, biopsy: ? Colonic mucosa, negative for diagnostic abnormality. ? CR-0 ? CR-PX ? 05/03/11 ? AJE ? 05/04/11 Verified by: ? Yoseph Velez MD ? Pathologist ? (Electronic Signature) ? The attending pathologist whose signature appears on this report has ? reviewed all diagnostic slides and has edited the gross and/or ? microscopic portion of the report in rendering the final pathologic ? diagnosis. ? ---Microscopic Description--- ? Slides reviewed, microscopic description not recorded. ? ---Gross Description--- ? A - Labeled/Fixativ e: Mucosal biopsies right colon, formalin. ? Qty/Size/Weight : ?Four, averaging 0.3 x 0.2 x 0.2 cm. ? Tissue Description: ?? Soft, mazariegos-pink tissues. ? Sections/Proces sing: ??(T1) ? B - Labeled/Fixativ e: Mucosal biopsies left colon, formalin. ? Qty/Size/Weight : ?Multiple, averaging 0.2 cm in diameter. ? Tissue Description: ?? Soft, mazariegos-pink tissues. ? Sections/Proces sing: ??(T1) ??vms/PPS ? ---Clinical Information--- ? Specimen Submitted: ? A - Mucosal biopsy right colon ? B - Mucosal biopsy left colon ? Clinical History/Diagnos is: ? 36-year-old with history of Crohn's disease CERNER MILLENNIUM 05/01/2011 2:18 PM EST L Timothy Matamoros MD PATHOLOGY/CYTOLOGY O [place] Performing Organization Address [facility] [address]/[facility] de Phone Number JESENIA LUAIUM * Specimen to Pathology (surgical or derm) (05/01/2011 12:47 PM EST) AP Specimen 05/01/2011 12:4 7 PM EST 05/01/2011 12:48 PM EST Narrative CERNER MILLENNIUM - 05/01/2011 12:48 PM EST Specimen requisition ordered. ??Separate Pathology report to follow L Timothy Matamoros MD PATHOLOGY/CYTOLOGY O [place] Performing Organization Address [facility] [address]/[facility] de Phone Number CERMARVIN FRAGAENNIUM * Specimen to Pathology (surgical or derm) (05/01/2011 12:47 PM EST) AP Specimen 05/01/2011 12:4 7 PM EST 05/01/2011 12:48 PM EST Narrative CERNER MILLENNIUM - 05/01/2011 12:48 PM EST Specimen requisition ordered. ??Separate Pathology report to follow L Timothy Matamoros MD PATHOLOGY/CYTOLOGY O [place] Performing Organization Address [facility] [address]/[facility] Co de Phone Number JESENIA FRAGAENNIUM * COLONOSCOPY (05/01/2011 12:22 PM EST) COLONOSCOPY [facility] Endoscopy Patient Name: Laly Toure ? Procedure Date: 05/01/2011 12:22 PM ? Date of : 1975 ? Age: 36 ? Order #: [id number] ? Procedure: ? Colonoscopy Indications: ? Follow-up of Crohn's disease of the ? small bowel Providers: ? L Timothy Matamoros MD, Jackelin Mayen, ? RN, Dwain Olivares, Immunochemist Referring MD: ?None, MD Medicines: ? Midazolam 4 mg IV, [...] and under direct visualization, ? advanced to 10 cm into the ileum. ? Careful inspection was made as the ? colonoscope was withdrawn. The ? colonoscopy was performed without ? difficulty. The patient tolerated the ? procedure well. The quality of the ? bowel preparation was good. ? Findings: ? The perianal and digital rectal [...] to the anastomosis ? within the galen-ileum. ? Impression: ?- Very mild Crohn's ileitis ? (Mehreen' i1). ? - External hemorrhoids. ? - Patent end-to-side ileo-colonic ? anastomosis. Recommendation: ?- Await results of liver tests and ? complete blood count. ? - If labs are unremarkable, restart ? azathioprine at a lower dose (200 mg) ? per day. ? _ L Timothy Matamoros MD 05/01/2011 12:55 PM Number of Addenda: 0 Note Initiated On: 05/01/2011 12:22 PM PROVATION 05/01/2011 12:2 2 PM EST None GENERAL SURGICAL ORD ERABLES PROVATION * DIFFERENTIAL, AUTOMATED (05/01/2011 12:08 PM EST) Neutrophil % 52.8 34.0 - 71.0 % CERNER MILLENNIUM Neutrophil Absolute 2.02 1.50 - 6.30 x10(3)/mcL CERNER MILLENNIUM Lymph % 37.2 19.0 - 53.0 % CERNER MILLENNIUM Lymphocytes Abs 1.4 1.0 - 3.6 x10(3)/mcL CERNER MILLENNIUM Monocyte % 8.9 4.0 - 13.0 % CERNER MILLENNIUM Monocyte [...] x10(3)/mcL CERNER MILLENNIUM Blood specimen (specimen) 05/01/2011 12:08 PM EST 05/01/2011 12:29 PM EST L Timothy Matamoros MD HEMATOLOGY ORDERABLE S CERMARVIN MILLENNIUM * (ABNORMAL) Hepatic Function Panel (05/01/2011 12:08 PM EST) Protein, Total 7.4 6.4 - 8.3 gm/dL CERNER MILLENNIUM Albumin 4.6 3.2 - 5.2 gm/dL CERNER MILLENNIUM Aspartate Aminotransferase 43(H) 0 - 39 unit/L CERNER MILLENNIUM Alanine Aminotransferase 64(H) 0 - 55 unit/L CERNER MILLENNIUM Alkaline Phosphatase 77 40 - 120 unit/L CERNER MILLENNIUM Bilirubin, Total 1.9(H) 0.2 - 1.3 mg/dL CERNER MILLENNIUM Bilirubin, Direct 0.3 0.0 - 0.3 mg/dL CERNER MILLENNIUM Blood specimen (specimen) 05/01/2011 12:08 PM EST 05/01/2011 12:29 PM EST Narrative Resulting Agency Comment Spec In Lab L Timothy Matamoros MD CHEMISTRY ORDERABLES Performing Organization Address City/[facility] [address]/ZIP Co de Phone Number JESENIA FRAGAENNIUM * (ABNORMAL) CBC (with Diff) (05/01/2011 12:08 PM EST) White Blood Cell 3.8(L) 4.0 - 10.0 x10(3)/mc L CERNER MILLENNIUM Red Blood Cell 5.02 4.63 - 6.08 x10(6)/mc L CERNER MILLENNIUM Hemoglobin 15.6 13.7 - 17.5 gm/dL CERNER MILLENNIUM Hematocrit 42.7 40.0 - 51.0 % CERNER MILLENNIUM Mean Cell Volume 85.1 79.0 - 92.0 fL CERNER MILLENNIUM Mean Cell Hemoglobin 31.1 25.6 - 32.2 pg CERNER MILLENNIUM Mean Cell Hemoglobin Concentration 36.5 32.0 - 36.5 gm/dL CERNER MILLENNIUM Platelet 252 145 - 370 x10(3)/mc L CERNER MILLENNIUM RDW Standard Deviation 41.9 35.0 - 46.0 fL CERNER MILLENNIUM RDW coefficient of variation 13.5 10.9 - 14.4 % CERNER MILLENNIUM Mean Platelet Volume 9.7 9.0 - 12.0 fL CERNER MILLENNIUM Blood specimen (specimen) 05/01/2011 12:08 PM EST 05/01/2011 12:29 PM EST Narrative Resulting Agency Comment Spec In Lab L Timothy Matamoros MD HEMATOLOGY ORDERABLE S JESENIA GOLDBERG documented in this encounter Visit Diagnoses Diagnosis Crohn's ileitis Regional enteritis of small intestine documented in this encounter Administered Medications Inactive Administered Medications - up to 3 most recent administrations Medication Order MAR Action Action Date Dose Rate Site sodium chloride 0.9% infusion 50 mL/hr, Intravenous, CONTINUOUS, Starting on Any 05/01/11 at 1215, Until Any 05/01/11 at 1602, Endoscopy (Day of Procedure) New Bag 05/01/2011 12:15 PM EST 50 mL/hr 50 mL/hr documented in this encounter Active and Recently Administered Medications Times are shown in EST. Continuous Medication Order 04/29/2011 04/30/2011 05/01/2011 sodium chloride 0.9% infusion (CANCELED) 50 mL/hr, Intravenous, CONTINUOUS, Starting on Any 2/16/12 at 1215, Until Any 05/01/11 at 1602, Endoscopy (Day of Procedure) 1215 (New Bag - Prov ider: Jackelin Mayen RN) PRN Medication Order 04/29/2011 04/30/2011 05/01/2011 fentaNYL 50mcg/mL injection (CANCELED) ONCE PRN, Starting on Any 05/01/11 at 1223, Until Any 05/01/11 at 1602, Pain, Intra-Operative (Intra-Procedure), Routine 1223 (Given - Provid er: Jackelin Mayen RN)1227 (Given - Provider: Jackelin Mayen RN)1233 (Given - Provider: Jackelin Mayen RN) midazolam (VERSED) injection (CANCELED) ONCE PRN, Starting on Any 05/01/11 at 1223, Until Any 05/01/11 at 1602, Sleep, Intra-Operative (Intra-Procedure), Routine 1223 (Given - Provid er: Jackelin Mayen RN)1227 (Given - Provider: Jackelin Mayen RN)1233 (Given - Provider: Jackelin Mayen, SYDNEE) documented in this encounter Care Teams Care Support Representative Relationship Specialty Start Date End Date Irwin Gonsalez DO [address] [place] [address] PCP - General 05/01/11 documented as of this encounter
--- OUTSIDE RECORDS SUMMARY | 2024-03-10 02:03 | XMS_ITS | Encounter Summary ---
[place] [address] Care Team Providers Care Casino Attendant Name Role Phone Ebenezer Way MD Primary Care Provider [phone] Reason for Visit * Reason Comments Other Pre-op teaching Encounter Details Date Type Department Care Team (Latest Contact Info) Description 10/25/2010 9:00 AM EDT Clinical [place] [phone] NURSE, GENERAL SURGERY Other specified counseling (Primary Dx) Discharge Disposition: Home Social History [...] as of this encounter Progress Notes * Corinna Sarabia RN - 10/25/2010 9:22 AM EDT 10/25/2010 9:22 AM Pre-operative patient teaching Type of surgery/date: 10/29/10: Lap ileo-cecal resection Surgeon: Dr Bender The MiraLAX bowel prep information sheet was given to patient. The MiraLAX bowel prep diets and medications (MiraLAX and dulcolax tablets) were reviewed with the patient. The patient verbalized his understanding of the instructions. The DVT prevention pamphlet was reviewed with the patient as well as the pain scale and pain assessment. The General Surgery Nurses card was provided to the patient for questions or concerns. documented in this encounter Plan of Treatment Upcoming Encounters Date Type Department Care Team (Latest Contact Info) Description 04/01/2024 12:35 PM EST Hospital Encounter [place] [address] Apurva Vivas MD [facility] [place] [address] 04/01/2024 12:35 PM EST - 04/01/2024 2:17 PM EST Surgery [place] [phone] Apurva Vivas MD [facility] [place] [address] ANORECTAL EXAM, REQUIRING ANESTHESIA, DIAGNOSTIC (WRVU 1.8) 04/26/2024 3:00 PM EST Office [place] [phone] Apurva Vivas MD [facility] [place] [address] Scheduled Procedures Name Priority Associated Diagnoses Date/Ti ia ANORECTAL EXAM, REQUIRING ANESTHESIA, DIAGNOSTIC (WRVU 1.8) perianal crohns disease w/fistula 04/01/2024 12:35 PM EST SURGICAL TREATMENT OF ANAL FISTULA COMPLEX OR MULTIPLE W\WO SETON PLACEMENT (WRVU 6.39) perianal crohns disease w/fistula 04/01/2024 12:35 PM EST documented as of this encounter Visit Diagnoses Diagnosis Other specified counseling- Primary documented in this encounter Care Teams Casino Attendant Relationship Specialty Start Date End Date Ebenezer Way MD [address] [address] PCP - General 02/05/10 04/22/11 documented as of this encounter
--- OUTSIDE RECORDS SUMMARY | 2024-03-10 02:03 | XMS_ITS | Encounter Summary ---
Author Organization [facility] Address [facility] [place] [address] Care Team Providers Care Outdoor Fitness Trainer Name Role Phone Ebenezer Way MD Primary Care Provider [phone] Encounter Details Date Type Department Care Team (Latest Contact Info) Description 04/23/2010 2:15 PM EST Procedure [place] [address] Bharathi Foote MD [facility] [place] [address] Discharge Disposition: Home Social History Tobacco Use [...] PM EST Hospital Encounter [place] [phone] Apurva Vivas MD [facility] [place] [address] 04/01/2024 12:35 PM EST - 04/01/2024 2:17 PM EST Surgery [place] [address] Apurva Vivas MD [facility] [place] [address] ANORECTAL EXAM, REQUIRING ANESTHESIA, DIAGNOSTIC (WRVU 1.8) 04/26/2024 3:00 PM EST Office [place] [address] Apurva Vivas MD [facility] [place] [place] [address] Scheduled Procedures Name Priority Associated Diagnoses Date/Ti me ANORECTAL EXAM, REQUIRING ANESTHESIA, DIAGNOSTIC (WRVU 1.8) perianal crohns disease w/fistula 04/01/2024 12:35 PM EST SURGICAL TREATMENT OF ANAL FISTULA COMPLEX OR MULTIPLE W\WO SETON PLACEMENT (WRVU 6.39) perianal crohns disease w/fistula 04/01/2024 12:35 PM EST documented as of this encounter Visit Diagnoses Not on filedocumented in this encounter Care Teams Outdoor Fitness Trainer Relationship Specialty Start Date End Date Ebenezer Way MD [address] [address] PCP - General 02/05/10 04/22/11 documented as of this encounter
--- OUTSIDE RECORDS SUMMARY | 2024-03-10 02:03 | XMS_ITS | Encounter Summary ---
[place] [address] Care Team Providers Care Refining Still Operator Name Role Phone Ebenezer Way MD Primary Care Provider Reason for Visit * Reason Comments Follow-up Encounter Details Date Type Department Care Team (Late st Contact Info) Description 10/02/2010 9:30 AM EDT [place] [phone] Warren Bender MD Regional enteritis of large intestine (Primary Dx) Discharge Disposition: Home Social History [...] Sign Reading Time Taken Comments Blood Pressure 134/87 10/02/2010 9:47 AM EDT Pulse 74 10/02/2010 9:47 AM EDT Temperature - - Respiratory Rate 16 10/02/2010 9:47 AM EDT Oxygen Saturation 99% 10/02/2010 9:47 AM EDT Inhaled Oxygen Concentration - - Weight 101.3 kg (223 lb 5.2 oz) 10/02/2010 9:47 AM EDT Height 185.4 cm (6' 1) 10/02/2010 9:47 AM EDT Body Mass Index 29.46 10/02/2010 9:47 AM EDT documented in this encounter Progress Notes * Warren Bender MD - 10/02/2010 10:40 AM EDT cc: Timothy Montoya M.D. S: Mr. Woodruff is a 35-year-old male with a history of Crohn's ileocolitis dating from 1992. The disease has been confined to the terminal ileum. The patient was hospitalized with an episode of small bowel obstruction in February 2010. He had a brief hospitalization and a short course of steroids to relieve the obstructive symptoms. Patient has done reasonably well since that time. His Crohn's disease is currently being managed with azathioprine 250 mg per day. Patient's last colonoscopy was performed in February 2010. There was no evidence of sigmoid disease on that exam. The ileocecal valve was stenotic and terminal ileum could not be examined. 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 The patient saw me in March to discuss the option for proceeding with ileocecal resection. According to the patient, at that time, it was Inconvenient to consider surgery due to pressures at work, and the patient opted to postpone surgery. He returns today to discuss the option for proceeding. He reports that he has not experienced any symptoms of intestinal obstruction in the last six months. He does note occasional transient abdominal pain, but this is relatively fleeting. As noted, the patient has not had any obstructive symptoms, but he largely avoids fruits and vegetables. Patient describes having three soft bowel movements per day. He notes intermittent borborygmi. There has been no melena or hematochezia. Patient has been trying to lose weight and reports that he has achieved about a 12-pound weight loss since he was seen in March. His weight today is 223 pounds. Past medical history is notable for: 1. Gastroesophageal reflux disease, well controlled on Nexium 2. Status post arthroscopic meniscectomy, right knee, 2002 Allergies: The patient has no medication allergies. Family History: Notable for a cousin with Crohn's disease. Patient believes his great-grandfather also suffered from Crohn's disease. No family history of colorectal carcinoma. Social History: The patient is and employed in the [employer] business. He does not smoke and reports moderate alcohol use. O: On physical exam, the patient is a well-developed, well-nourished male in no acute distress. Significant physical findings include absence of skin rash or jaundice. Neck is supple without mass. There were no cervical bruits. Chest is clear to auscultation and percussion. Examination of the back reveals no spinous process or CVA tenderness. Cardiovascular exam reveals a regular heart rhythm with normal heart sounds. No murmurs or gallops are appreciated. Peripheral pulses are intact. Abdomen is obese and soft without organomegaly or mass. There is no tenderness to palpation. Examination of the extremities reveals no peripheral edema. Impression: Crohn's ileitis with a history of small bowel obstruction. Again, reviewed the option for proceeding with ileocecal resection. Would hope to be able to perform the procedure laparoscopically. Functional consequences of the procedure as well as potential risks and complications were reviewed. Patient is interested in proceeding but wishes to talk over the timing with his . He has plans for a hunting trip in [place] in December. I have told him that if we perform the procedure by mid-October, he would likely be able to keep those plans, although he may not be back to full endurance at that point. Will await a call from the patient regarding scheduling. Patient would prefer to have any preadmission studies performed in [facility], and that can probably be accommodated. documented in this encounter Plan of Treatment Upcoming Encounters Date Type Department Care Team (Latest Contact Info) Description 04/01/2024 12:35 PM EST Hospital Encounter [place] [address] [facility] [place] [address] 04/01/2024 12:35 PM EST - 04/01/2024 2:17 PM EST Surgery [place] [address] [facility] [place] [address] ANORECTAL EXAM, REQUIRING ANESTHESIA, DIAGNOSTIC (WRVU 1.8) 04/26/2024 3:00 PM EST Office [place] [address] [facility] [address] Scheduled Procedures Name Priority Associated Diagnoses Date/Ti me ANORECTAL EXAM, REQUIRING ANESTHESIA, DIAGNOSTIC (WRVU 1.8) perianal crohns disease w/fistula 04/01/2024 12:35 PM EST SURGICAL TREATMENT OF ANAL FISTULA COMPLEX OR MULTIPLE W\WO SETON PLACEMENT (WRVU 6.39) perianal crohns disease w/fistula 04/01/2024 12:35 PM EST documented as of this encounter Visit Diagnoses Diagnosis Regional enteritis of large intestine- Primary documented in this encounter Care Teams Refining Still Operator Relationship Specialty Start Date End Date Ebenezer Way MD [address] [place] [address] PCP - General 02/05/10 04/22/11 documented as of this encounter
--- OUTSIDE RECORDS SUMMARY | 2024-03-10 02:03 | XMS_ITS | Encounter Summary ---
Author Organization [facility] [place] [address] Care Team Providers Care Plant Manager Name Role Phone Ebenezer Way MD Primary Care Provider [phone] Encounter Details Date Type Department Care Team (Late st Contact Info) Description 11/04/2010 Orders Only [place] [phone] Warren Bender MD Social History Tobacco Use [...] PM EST Hospital Encounter [place] [phone] Apurva Vivas MD [facility] [place] [address] 04/01/2024 12:35 PM EST - 04/01/2024 2:17 PM EST Surgery [place] [address] Apurva Vivas MD [facility] [place] [address] ANORECTAL EXAM, REQUIRING ANESTHESIA, DIAGNOSTIC (WRVU 1.8) 04/26/2024 3:00 PM EST Office [place] [address] Apurva Vivas MD [facility] [place] [address] Scheduled Procedures Name Priority Associated Diagnoses Date/Ti me ANORECTAL EXAM, REQUIRING ANESTHESIA, DIAGNOSTIC (WRVU 1.8) perianal crohns disease w/fistula 04/01/2024 12:35 PM EST SURGICAL TREATMENT OF ANAL FISTULA COMPLEX OR MULTIPLE W\WO SETON PLACEMENT (WRVU 6.39) perianal crohns disease w/fistula 04/01/2024 12:35 PM EST documented as of this encounter Visit Diagnoses Not on filedocumented in this encounter Care Teams Plant Manager Relationship Specialty Start Date End Date Ebenezer Way MD [address] [place] [address] PCP - General 02/05/10 04/22/11 documented as of this encounter
--- OUTSIDE RECORDS SUMMARY | 2024-03-10 02:03 | XMS_ITS | Encounter Summary ---
Author Organization [facility] [place] [address] Care Team Providers Care Night Order Selector Name Role Phone Ebenezer Way MD Primary Care Provider Reason for Visit * Reason Comments Follow-up Colectomy Encounter Details Date Type Department Care Team (Late st Contact Info) Description 12/18/2010 8:30 AM EDT Office [place] [phone] Warren Bender MD Regional enteritis of small intestine (Primary Dx) Discharge Disposition: Home Social [...] as of this encounter Progress Notes * Warren Bender MD - 12/18/2010 12:37 PM EDT Mr. Woodruff is a 35-year-old male who underwent laparoscopic-assisted ileocolic resection for Crohn's ileitis with associated partial small bowel obstruction on October 29, 2010. The patient had an uncomplicated postoperative course and was discharged on the third postoperative day. He has had some difficulties with intermittent dyspepsia and difficulties with frequent bowel movements. These have settled with time. The patient reports that he is currently eating an unrestricted diet and is not experiencing any troubles with abdominal pain or cramps. He is generally having approximately three soft bowel movements per day without melena or hematochezia. The patient is back to work and is able to complete his usual daytime schedule. He is currently using Lomotil to control the output from his ileostomy and is also using a fiber supplement. He reports that his weight has been stable since hospital discharge. On physical examination the patient appears well. The abdomen is soft, nondistended without organomegaly or mass. There is a well-healed midline incision. There is no tenderness to palpation. There is some erythema at the trocar insertion site in the right lower quadrant. This underlies the patient's waistband and belt, and I suspect that the irritation is related to trauma from the overlying belt. All other incisions are well healed. The patient is scheduled to resume treatment with Imuran as a prophylactic measure for a history of Crohn's enteritis. I have discussed routine postoperative activity restrictions. Further followup with me on p.r.n. basis. documented in this encounter Plan of Treatment Upcoming Encounters Date Type Department Care Team (Latest Contact Info) Description 04/01/2024 12:35 PM EST Hospital Encounter [place] [address] Apurva Vivas MD [facility] [place] [address] 04/01/2024 12:35 PM EST - 04/01/2024 2:17 PM EST Surgery [place] [phone] Apurva Vivas MD [facility] [place] [place] [address] ANORECTAL EXAM, REQUIRING ANESTHESIA, DIAGNOSTIC (WRVU 1.8) 04/26/2024 3:00 PM EST Office [place] [address] Apurva Vivas MD [facility] [place] [address] Scheduled Procedures Name Priority Associated Diagnoses Date/Ti me ANORECTAL EXAM, REQUIRING ANESTHESIA, DIAGNOSTIC (WRVU 1.8) perianal crohns disease w/fistula 04/01/2024 12:35 PM EST SURGICAL TREATMENT OF ANAL FISTULA COMPLEX OR MULTIPLE W\WO SETON PLACEMENT (WRVU 6.39) perianal crohns disease w/fistula 04/01/2024 12:35 PM EST documented as of this encounter Visit Diagnoses Diagnosis Regional enteritis of small intestine- Primary documented in this encounter Care Teams Night Order Selector Relationship Specialty Start Date End Date Ebenezer Way MD [address] [place] [address] PCP - General 02/05/10 04/22/11 documented as of this encounter
--- OUTSIDE RECORDS SUMMARY | 2024-03-10 02:03 | XMS_ITS | Encounter Summary ---
Author Organization [facility] [place] [address] Care Team Providers Care Farm Mechanic Apprentice Name Role Phone Ebenezer Way MD Primary Care Provider Encounter Details Date Type Department Care Team (Late st Contact Info) Description 08/15/2010 Abstract [place] [address] Ann Chavarria RN Social History Tobacco Use Types Packs/Day [...] PM EST Hospital Encounter [place] [address] Apurva Vivas MD [facility] [place] [address] 04/01/2024 12:35 PM EST - 04/01/2024 2:17 PM EST Surgery [place] [phone] Apurva Vivas MD [facility] [place] [address] ANORECTAL EXAM, REQUIRING ANESTHESIA, DIAGNOSTIC (WRVU 1.8) 04/26/2024 3:00 PM EST Office [place] [address] Apurva Vivas MD [facility] [place] [address] Scheduled Procedures Name Priority Associated Diagnoses Date/Ti me ANORECTAL EXAM, REQUIRING ANESTHESIA, DIAGNOSTIC (WRVU 1.8) perianal crohns disease w/fistula 04/01/2024 12:35 PM EST SURGICAL TREATMENT OF ANAL FISTULA COMPLEX OR MULTIPLE W\WO SETON PLACEMENT (WRVU 6.39) perianal crohns disease w/fistula 04/01/2024 12:35 PM EST documented as of this encounter Visit Diagnoses Not on filedocumented in this encounter Care Teams Farm Mechanic Apprentice Relationship Specialty Start Date End Date Ebenezer Way MD [address] [place] [address] PCP - General 02/05/10 04/22/11 documented as of this encounter
--- OUTSIDE RECORDS SUMMARY | 2024-03-10 02:03 | XMS_ITS | Encounter Summary ---
[place] [address] Care Team Providers Care Certified Driver Examiner Name Role Phone Ebenezer Way MD Primary Care Provider Encounter Details Date Type Department Care Team (Late st Contact Info) Description 10/25/2010 10:00 AM EDT Clinical [place] [phone] Social History Tobacco Use Types Packs/Day Years [...] Sign Reading Time Taken Comments Blood Pressure - - Pulse 85 10/25/2010 9:38 AM EDT Temperature - - Respiratory Rate - - Oxygen Saturation 100% 10/25/2010 9:38 AM EDT Inhaled Oxygen Concentration - - Weight 100.7 kg (222 lb) 10/25/2010 9:38 AM EDT Height 185.4 cm (6' 1) 10/25/2010 9:38 AM EDT Body Mass Index 29.29 10/25/2010 9:38 AM EDT documented in this encounter Progress Notes * Jayden [place], RN - 10/25/2010 9:56 AM EDT Questionnaire reviewed with patient documented in this encounter Plan of Treatment Upcoming Encounters Date Type Department Care Team (Latest Contact Info) Description 04/01/2024 12:35 PM EST Hospital Encounter [place] [phone] Apurva Vivas MD [facility] [place] [address] 04/01/2024 12:35 PM EST - 04/01/2024 2:17 PM EST Surgery [place] [phone] Apurva Vivas MD [facility] [place] [place] [address] ANORECTAL EXAM, REQUIRING ANESTHESIA, DIAGNOSTIC (WRVU 1.8) 04/26/2024 3:00 PM EST Office Visit [place] [phone] Apurva Vivas MD [facility] [place] [place] [address] Scheduled Procedures Name Priority Associated Diagnoses Date/Ti me ANORECTAL EXAM, REQUIRING ANESTHESIA, DIAGNOSTIC (WRVU 1.8) perianal crohns disease w/fistula 04/01/2024 12:35 PM EST SURGICAL TREATMENT OF ANAL FISTULA COMPLEX OR MULTIPLE W\WO SETON PLACEMENT (WRVU 6.39) perianal crohns disease w/fistula 04/01/2024 12:35 PM EST documented as of this encounter Visit Diagnoses Not on filedocumented in this encounter Care Teams Certified Driver Examiner Relationship Specialty Start Date End Date Ebenezer Way MD [address] [place] [address] PCP - General 02/05/10 04/22/11 documented as of this encounter
--- OUTSIDE RECORDS SUMMARY | 2024-03-10 02:03 | XMS_ITS | Encounter Summary ---
Author Organization [facility] [place] [address] Care Team Providers Care Surface Plate Finisher Name Role Phone Ebenezer Way MD Primary Care Provider [phone] Encounter Details Date Type Department Care Team (Late st Contact Info) Description 04/04/2011 External Results [place] [phone] Ramonita Pandey MD [facility] [place] [address] Social History Tobacco Use Types Packs/Day Years [...] PM EST Hospital Encounter [place] [phone] Apurva Vivas MD [facility] [place] [address] 04/01/2024 12:35 PM EST - 04/01/2024 2:17 PM EST Surgery [place] [address] Apurva Vivas MD [facility] [place] [address] ANORECTAL EXAM, REQUIRING ANESTHESIA, DIAGNOSTIC (WRVU 1.8) 04/26/2024 3:00 PM EST Office [place] [phone] Apurva Vivas MD [facility] [place] [address] Scheduled Procedures Name Priority Associated Diagnoses Date/Ti me ANORECTAL EXAM, REQUIRING ANESTHESIA, DIAGNOSTIC (WRVU 1.8) perianal crohns disease w/fistula 04/01/2024 12:35 PM EST SURGICAL TREATMENT OF ANAL FISTULA COMPLEX OR MULTIPLE W\WO SETON PLACEMENT (WRVU 6.39) perianal crohns disease w/fistula 04/01/2024 12:35 PM EST documented as of this encounter Procedures Procedure Name Priority Date/Time Associated Diagnosis Comments LAB SCAN Routine 03/30/2011 documented in this encounter Results * Scan Doc: Lab (03/30/2011) L Timothy Pandey MD MEDIA MGR SCAN EXT O RDR/RSLT documented in this encounter Visit Diagnoses Not on filedocumented in this encounter Care Teams Surface Plate Finisher Relationship Specialty Start Date End Date Ebenezer Way MD [address] [place] [address] PCP - General 02/05/10 04/22/11 documented as of this encounter
--- OUTSIDE RECORDS SUMMARY | 2024-03-10 02:03 | XMS_ITS | Encounter Summary ---
Author Organization [facility] [place] [address] Care Team Providers Care Scheduler Name Role Phone Irwin Gonsalez DO Primary Care Provider [phone] Encounter Details Date Type Department Care Team (Late st Contact Info) Description 05/01/2011 11:15 AM EST - 05/01/2011 12:00 PM EST Surgery [place] [address] Ramonita Matamoros MD [facility] [place] [address] COLONOSCOPY FLEXIBLE, WITH BX (WRVU 3.56) Social [...] Sign Reading Time Taken Comments Blood Pressure 122/85 05/01/2011 11:57 AM EST Pulse 73 05/01/2011 11:57 AM EST Temperature 36.4 ??C (97.5 ??F) 05/01/2011 11:[address] Respiratory Rate 16 05/01/2011 11:57 AM EST Oxygen Saturation 98% 05/01/2011 11:57 AM EST Inhaled Oxygen Concentration - - [...] occurs please contact your M.D. Please call [phone] before 5pm with problems, questions or concerns. After 5pm call [phone] and ask to speak with the leather finisher harmonic analyst. Discharge instructions reviewed with patient who expresses's understanding. * Attachments The following attachments cannot be sent through Care Everywhere. * COLONOSCOPY: WHAT TO EXPECT AT HOME ([place] ISLANDER) * SEDATION FOR A MEDICAL PROCEDURE: AFTER YOUR VISIT ([place]LANDER) documented in this encounter Medications at Time [...] PM EST Hospital Encounter [place] [phone] Apurva Vivas MD [facility] [place] [address] 04/01/2024 12:35 PM EST - 04/01/2024 2:17 PM EST Surgery [place] [phone] Apurva Vivas MD [facility] [place] [address] ANORECTAL EXAM, REQUIRING ANESTHESIA, DIAGNOSTIC (WRVU 1.8) 04/26/2024 3:00 PM EST Office [place] [phone] Apurva Vivas MD [facility] [place] [address] Scheduled Procedures Name Priority Associated Diagnoses Date/Ti [...] 2:18 PM EST) Surgical Pathology Report ? [facility] [place], [place] ? Provider: ?? Ramonita MATAMOROS ?Pt. Name: ?? ALISEKIRTLALY ? Acc #: ?[id number] ?Pt. ? Col Date: ?? 05/01/2011 ? [...] MD PATHOLOGY/CYTOLOGY O TULIO Performing Organization Address [facility] de Phone Number CERMARVIN FRAGAProfessional Aptitude CouncilIUM * Specimen to Pathology (surgical or derm) (05/01/2011 12:47 PM EST) AP Specimen 05/01/2011 12:4 7 PM EST 05/01/2011 12:48 PM EST Narrative CERNER MILLENNIUM - 05/01/2011 12:48 PM EST Specimen requisition ordered. ??Separate Pathology report to follow L Timothy Matamoros MD PATHOLOGY/CYTOLOGY O TULIO Performing Organization Address [facility] de Phone Number CERMARVIN FRAGAENNIUM * Specimen to Pathology (surgical or derm) (05/01/2011 12:47 PM EST) AP Specimen 05/01/2011 12:4 7 PM EST 05/01/2011 12:48 PM EST Narrative CERNER MILLENNIUM - 05/01/2011 12:48 PM EST Specimen requisition ordered. ??Separate Pathology report to follow L Timothy Matamoros MD PATHOLOGY/CYTOLOGY O TULIO Performing Organization Address [facility] de Phone Number CERMARVIN MILLENNIUM * COLONOSCOPY (05/01/2011 12:22 PM EST) COLONOSCOPY [facility] Endoscopy Patient Name: Laly Woodruff ? Procedure Date: 05/01/2011 12:22 PM ? Date of : 1975 ? Age: 36 ? Order #: [id number] ? Procedure: ? Colonoscopy Indications: ? Follow-up of Crohn's disease of the ? small bowel Providers: ? L Timothy Matamoros MD, Jackelin Mayen, ? Dwain RANDHAWA, Key Attendant Referring MD: ?None, MD Medicines: ? Midazolam [...] Matamoros MD CHEMISTRY ORDERABLES Performing Organization Address City/[facility]/ZIP Co de Phone Number JESENIA FRAGAENNIUM * [...] Crohn's ileitis Regional enteritis of small intestine Crohn's ileitis Regional enteritis of small intestine documented in this encounter Administered Medications Inactive Administered Medications - up to 3 most recent administrations Medication Order MAR Action Action Date Dose Rate Site fentaNYL 50mcg/mL injection ONCE PRN, Starting on Any 05/01/11 at 1223, Until Any 05/01/11 at 1602, Pain, Intra-Operative (Intra-Procedure), Routine Given 05/01/2011 12:33 PM EST 50 mcg Given 05/01/2011 12:27 PM EST 50 mcg Given 05/01/2011 12:23 PM EST 100 mcg midazolam (VERSED) injection ONCE PRN, Starting on Any 05/01/11 at 1223, Until Any 05/01/11 at 1602, Sleep, Intra-Operative (Intra-Procedure), Routine Given 05/01/2011 12:33 PM EST 1 mg Given 05/01/2011 12:27 PM EST 1 mg Given 05/01/2011 12:23 PM EST 2 mg sodium chloride 0.9% infusion 50 mL/hr, Intravenous, CONTINUOUS, Starting on Any 05/01/11 at 1215, Until Any 12 at 1602, Endoscopy (Day of Procedure) New [...] injection (CANCELED) ONCE PRN, Starting on Any 12 at 1223, Until Any 05/01/11 at 1602, Sleep, Intra-Operative (Intra-Procedure), Routine 1223 (Given - Provid er: Jackelin Mayen RN)1227 (Given - Provider: Jackelin Mayen, SYDNEE)1233 (Given - Provider: Jackelin Mayen, RN) documented in this encounter Care Teams Scheduler Relationship Specialty Start Date End Date Irwin Gonsalez DO [address] [place] [address] PCP - General 05/01/11 documented as of this encounter
--- OUTSIDE RECORDS SUMMARY | 2024-03-10 02:04 | XMS_ITS | Encounter Summary ---
Author Organization [facility] [place] [address] Care Team Providers Care Tool Repairer Bench Name Role Phone Ebenezer Way MD Primary Care Provider Encounter Details Date Type Department Care Team (Late st Contact Info) Description 04/10/2010 9:45 AM EST Office [place] [phone] Warren Bender MD Discharge Disposition: Home Social History Tobacco [...] PM EST Hospital Encounter [place] [address] Apurva Vivas MD [facility] [place] [address] 04/01/2024 12:35 PM EST - 04/01/2024 2:17 PM EST Surgery [place] [phone] Apurva Vivas MD [facility] [place] [address] ANORECTAL EXAM, REQUIRING ANESTHESIA, DIAGNOSTIC (WRVU 1.8) 04/26/2024 3:00 PM EST Office [place] [phone] Apurva Vivas MD [facility] [place] [address] Scheduled Procedures Name Priority Associated Diagnoses Date/Ti me ANORECTAL EXAM, REQUIRING ANESTHESIA, DIAGNOSTIC (WRVU 1.8) perianal crohns disease w/fistula 04/01/2024 12:35 PM EST SURGICAL TREATMENT OF ANAL FISTULA COMPLEX OR MULTIPLE W\WO SETON PLACEMENT (WRVU 6.39) perianal crohns disease w/fistula 04/01/2024 12:35 PM EST documented as of this encounter Visit Diagnoses Not on filedocumented in this encounter Care Teams Tool Repairer Bench Relationship Specialty Start Date End Date Ebenezer Way MD [address] [place] [address] PCP - General 02/05/10 04/22/11 documented as of this encounter
--- OUTSIDE RECORDS SUMMARY | 2024-03-10 02:04 | XMS_ITS | Encounter Summary ---
[place] [address] Care Team Providers Care Net Ui Developer Name Role Phone Unavailable Primary Care Provider Unavailabl e Encounter Details Date Type Department Care Team (Late st Contact Info) Description 01/14/2010 8:00 AM EDT Procedure visit [place] [address] Social History Tobacco Use Types Packs/Day Years [...] PM EST Hospital Encounter [place] [address] Apurva Vivas MD [facility] [place] [address] 04/01/2024 12:35 PM EST - 04/01/2024 2:17 PM EST Surgery [place] [address] Apurva Vivas MD [facility] [place] [address] ANORECTAL EXAM, REQUIRING ANESTHESIA, DIAGNOSTIC (WRVU 1.8) 04/26/2024 3:00 PM EST Office [place] [address] Apurva Vivas MD [facility] [place] [place] [address] Scheduled Procedures Name Priority Associated Diagnoses Date/Ti [...]
--- OUTSIDE RECORDS SUMMARY | 2024-03-10 02:04 | XMS_ITS | Encounter Summary ---
Author Organization [facility] Address [address] [place] [address] Care Team Providers Care Enterprise Resource Planning Consultant Name Role Phone Wallace, Irwin Thad Primary Care Provider [phone] Encounter Details Date Type Department Care Team (Late st Contact Info) Description 01/12/2024 Lab Requisition [facility] Pathology & Laboratory Medicine - [address] [id number] Outr Resulting Lab, Provider Social History Tobacco Use Types Packs/Day Years Used Date Smoking Tobacco: Never Assessed Sex and Gender Information Value Date Recorded Sex Assigned at Not on file Legal Sex Male 18:00 EST Gender Identity Not on file Sexual Orientation Not on file documented as of this encounter Plan of Treatment Not on file documented as of this encounter Procedures Procedure Name Priority Date/Time Associated Diagnosis Comments PSA TOTAL, DIAGNOSTIC Routine 01/12/2024 9:07 EDT documented in this encounter Results * (ABNORMAL) PSA TOTAL, DIAGNOSTIC (01/12/2024 9:07 EDT) PSA 6.1(H) <=2.5 ng/mL 01/12/2024 18:38 EDT [facility] Blood VENOUS BLOOD / Unknown 01/12/2024 9:07 EDT 01/12/2024 17:53 EDT Narrative [facility] - 01/12/2024 18:38 EDT NOTE: Serum PSA concentration should not be interpreted as absolute evidence for the presence or absence of malignant disease. Assayed on Siemens ADVIA Centaur XPT using chemiluminescent technology.??Values obtained by using different assay methods cannot be used interchangeably. us Provider Outr Resulting Lab CHEMISTRY & BLOOD GA S ORDERABLES Final Result [facility] [address] [place] [address] documented in this encounter Visit Diagnoses Not on filedocumented in this encounter Care Teams Enterprise Resource Planning Consultant Relationship Specialty Start Date End Date Irwin Gonsalez DO [address] [place] [address] [place] [address] PCP - General 01/14/21 documented as of this encounter
--- OUTSIDE RECORDS SUMMARY | 2024-03-10 02:04 | XMS_ITS | Encounter Summary ---
Author Organization [facility] [address] Care Team Providers Care Software Security Architect Name Role Phone Wallace Irwin MENDOZA Primary Care Provider [phone] Encounter Details Date Type Department Care Team (Late st Contact Info) Description 02/28/2010 [place] [phone] Ramonita Pandey MD GASTROENTEROLOGY Social History Tobacco Use Types Packs/Day Years [...] PM EST Hospital Encounter [place] [phone] Apurva Vivas MD [facility] [place] [address] 04/01/2024 12:35 PM EST - 04/01/2024 2:17 PM EST Surgery Main Operating Room [facility] [place] [address] Apurva Vivas MD [facility] [place] [address] ANORECTAL EXAM, REQUIRING ANESTHESIA, DIAGNOSTIC (WRVU 1.8) 04/26/2024 3:00 PM EST Office [place] [address] Apurva Vivas MD [facility] [place] [address] Scheduled Procedures Name Priority Associated Diagnoses Date/Ti [...] Procedure Name Priority Date/Time Associated Diagnosis Comments SURGICAL PATHOLOGY REPORT Routine 02/28/2010 9:46 AM EST documented in this encounter Results * Surgical Pathology Report (02/28/2010 9:46 AM EST) Surgical Pathology Report [id number] ? Location: [facility] The signing pathologist has (i) examined the relevant preparation(s) for the specimen(s) and (ii) rendered or confirmed the diagnosis(es). . ?Pathology Surgical Pathology Final Report Clinical Information Specimen Submitted: A - Mucosal biopsies, ic valve stricture Clinical History: Not provided Clinical Diagnosis: Crohn's disease - restage disease Gross Description Labeled/Fixative: ? Mucosal biopsies IC valve stricture, formalin. Qty/Size/Weight: ?Four, 0.1 cm to 0.3 cm. Tissue Description: ?? Mazariegos-yellow and mazariegos-pink tissues. Sections/Processi ng: ??(T1) ??aje/EJR Microscopic Description Slides reviewed, microscopic description not recorded. Diagnosis Ileocecal valve, biopsy: ?? Small intestinal mucosa with chronic minimally active inflammation. ?? Colonic mucosa with architectural distortion. ?? There is no evidence of dysplasia or granuloma. CR-0, CR-PX 03/04/10 VMS 03/04/10 Verified by: ? Yoseph Velez MD ?Pathologist ?(Electronic Signature) The attending pathologist whose signature appears on this report has reviewed all diagnostic slides and has edited the gross and/or microscopic portion of the report in rendering the final pathologic diagnosis. JESENIA GOLDBERG 02/28/2010 9:46 AM EST L Timothy Pandey MD PATHOLOGY/CYTOLOGY O RDERABLES Performing Organization Address City/State/[facility] Co de Phone Number JESENIA GOLDBERG documented in this encounter Visit Diagnoses Not on filedocumented in this encounter Care Teams Software Security Architect Relationship Specialty Start Date End Date Irwin Gonsalez DO [address] [place] [address] PCP - General 05/01/11 documented as of this encounter
--- OUTSIDE RECORDS SUMMARY | 2024-03-10 02:04 | XMS_ITS | Referral Summary ---
Author Organization [facility] Address [address] [place] [address] Care Team Providers Care Nurse Practitioner Hospitalist Name Role Phone WallaceIrwin kaye Primary Care Provider [phone] Encounters Date Type Department Care Team Description 01/12/2024 Lab Requisition [facility] Pathology & Laboratory Medicine - [address] [address] Outr Resulting Lab, Provider from Last 3 Months Social History Tobacco Use Types Packs/Day Years Used Date Smoking Tobacco: Never Assessed Sex and Gender Information Value Date Recorded Sex Assigned at Not on file Legal Sex Male 18:00 EST Gender Identity Not on file Sexual Orientation Not on file Plan of Treatment Not on file Procedures Procedure Name Priority Date/Time Associated Diagnosis Comments PSA TOTAL, DIAGNOSTIC Routine 01/12/2024 9:07 EDT HEPATITIS C AB W REFLEX TO HCV RNA BY PCR Routine 04/16/2019 9:38 EST from Last 3 Months or Most Recently Relevant to Health Maintenance Results * (ABNORMAL) PSA TOTAL, DIAGNOSTIC (01/12/2024 9:07 EDT) PSA 6.1(H) <=2.5 ng/mL 01/12/2024 18:38 EDT [facility] Blood VENOUS BLOOD / Unknown 01/12/2024 9:07 EDT 01/12/2024 17:53 EDT Narrative [facility] - 01/12/2024 18:38 EDT NOTE: Serum PSA concentration should not be interpreted as absolute evidence for the presence or absence of malignant disease. Assayed on Siemens ADVIA Centaur XPT using chemiluminescent technology.??Values obtained by using different assay methods cannot be used interchangeably. us Provider Outr Resulting Lab CHEMISTRY & BLOOD GA S ORDERABLES Final Result Performing Organization Address City/[facility]/ZIP Co de Phone Number [facility] [address] [place] [address] * HEPATITIS C AB W REFLEX TO HCV RNA BY PCR (04/16/2019 9:38 EST) Hep C Antibody Negative Negative 04/18/2019 10:38 EST [facility] Blood VENOUS BLOOD / Unknown 04/16/2019 9:38 EST 04/17/2019 15:56 EST Provider Unknown MD CHEMISTRY & BLOOD GAS ORDERA BLES Final Result Performing Organization Address City/[facility]/ZIP Co de Phone Number [facility] [address] [place] [address] from Last 3 Months or Most Recently Relevant to Health Maintenance Insurance [facility] Care Teams Nurse Practitioner Hospitalist Relationship Specialty Start Date End Date Irwin Gonsalez DO [address] [place] [address] [place] [address] PCP - General 01/14/21
--- OUTSIDE RECORDS SUMMARY | 2024-03-10 02:04 | XMS_ITS ---
[place] [address] Care Team Providers Care Marine Engineer Name Role Phone Irwin Gonsalez DO Primary Care Provider Gastroenterology Status:Ineligible (Enrolling) Start date:12/11/2023 Enrollment reason:Ineligible - Insurance Mandate Current support & services provided:Benefits Investigation, Prior Authorization Management Linked medications:adalimumab (Active) Linked problems:Crohn's ileitis (Active) Overview Obed hoover (gastro) MARCOS on file through 05/20/2024. Insurance mandated to [employer]. Continued Care and Services Coordination
--- OUTSIDE RECORDS SUMMARY | 2024-03-10 02:04 | XMS_ITS | Encounter Summary ---
Author Organization [facility] [place] [address] Care Team Providers Care Microsystems Engineer Name Role Phone Ebenezer Way MD Primary Care Provider Encounter Details Date Type Department Care Team (Late st Contact Info) Description 04/10/2010 8:00 AM EST Follow-[place] [phone] Ramonita Pandey MD [facility] [place] [address] Discharge Disposition: Home Social History Tobacco Use [...] PM EST Hospital Encounter [place] [phone] Apurva Vivas MD [facility] [place] [address] 04/01/2024 12:35 PM EST - 04/01/2024 2:17 PM EST Surgery [place] [address] Apurva Vivas MD [facility] [place] [address] ANORECTAL EXAM, REQUIRING ANESTHESIA, DIAGNOSTIC (WRVU 1.8) 04/26/2024 3:00 PM EST Office [place] [address] Apurva Vivas MD [facility] [place] [address] Scheduled Procedures Name Priority Associated Diagnoses Date/Ti ca ANORECTAL EXAM, REQUIRING ANESTHESIA, DIAGNOSTIC (WRVU 1.8) perianal crohns disease w/fistula 04/01/2024 12:35 PM EST SURGICAL TREATMENT OF ANAL FISTULA COMPLEX OR MULTIPLE W\WO SETON PLACEMENT (WRVU 6.39) perianal crohns disease w/fistula 04/01/2024 12:35 PM EST documented as of this encounter Visit Diagnoses Not on filedocumented in this encounter Care Teams Microsystems Engineer Relationship Specialty Start Date End Date Ebenezer Way MD [address] [address] PCP - General 02/05/10 04/22/11 documented as of this encounter
--- OUTSIDE RECORDS SUMMARY | 2024-03-10 02:04 | XMS_ITS | Encounter Summary ---
Author Organization [facility] [place] [address] Care Team Providers Care Supervisor Quilting Name Role Phone Ebenezer Way MD Primary Care Provider [phone] Encounter Details Date Type Department Care Team (Late st Contact Info) Description 03/26/2010 2:00 PM EST [place] [phone] Ramonita Pandey MD [facility] [place] [address] Discharge Disposition: Home Social History Tobacco Use [...] PM EST Hospital Encounter [place] [phone] Apurva Vivas MD [facility] [place] [address] 04/01/2024 12:35 PM EST - 04/01/2024 2:17 PM EST Surgery [place] [address] Apurva Vivas MD [facility] [place] [address] ANORECTAL EXAM, REQUIRING ANESTHESIA, DIAGNOSTIC (WRVU 1.8) 04/26/2024 3:00 PM EST Office [place] [address] Apurva Vivas MD [facility] [place] [address] Scheduled Procedures Name Priority Associated Diagnoses Date/Ti ky ANORECTAL EXAM, REQUIRING ANESTHESIA, DIAGNOSTIC (WRVU 1.8) perianal crohns disease w/fistula 04/01/2024 12:35 PM EST SURGICAL TREATMENT OF ANAL FISTULA COMPLEX OR MULTIPLE W\WO SETON PLACEMENT (WRVU 6.39) perianal crohns disease w/fistula 04/01/2024 12:35 PM EST documented as of this encounter Visit Diagnoses Not on filedocumented in this encounter Care Teams Supervisor Quilting Relationship Specialty Start Date End Date Ebenezer Way MD [address] [address] PCP - General 02/05/10 04/22/11 documented as of this encounter
--- OUTSIDE RECORDS SUMMARY | 2024-03-10 02:04 | XMS_ITS | Encounter Summary ---
Author Organization [place] [address] Care Team Providers Care Health Promotion Officer Name Role Phone Ebenezer Way MD Primary Care Provider Encounter Details Date Type Department Care Team (Late st Contact Info) Description 01/07/2010 [place] [phone] Nereyda Salgado, [facility] [place] [address] Social History Tobacco Use Types Packs/Day Years [...] PM EST Hospital Encounter [place] [phone] Apurva Vivas MD [facility] [place] [address] 04/01/2024 12:35 PM EST - 04/01/2024 2:17 PM EST Surgery [place] [address] Apurva Vivas MD [facility] [place] [address] ANORECTAL EXAM, REQUIRING ANESTHESIA, DIAGNOSTIC (WRVU 1.8) 04/26/2024 3:00 PM EST Office [place] [phone] Apurva Vivas MD [facility] [place] [address] Scheduled Procedures Name Priority Associated Diagnoses Date/Ti me ANORECTAL EXAM, REQUIRING ANESTHESIA, DIAGNOSTIC (WRVU 1.8) perianal crohns disease w/fistula 04/01/2024 12:35 PM EST SURGICAL TREATMENT OF ANAL FISTULA COMPLEX OR MULTIPLE W\WO SETON PLACEMENT (WRVU 6.39) perianal crohns disease w/fistula 04/01/2024 12:35 PM EST documented as of this encounter Procedures Procedure Name Priority Date/Time Associated Diagnosis Comments DIFFERENTIAL, AUTOMATED Routine 01/07/2010 8:42 AM EDT CBC (WITH DIFF) Routine 01/07/2010 8:42 AM EDT CRP, CARDIAC RISK (HS CRP) Routine 01/07/2010 8:42 AM EDT COMPREHENSIVE METABOLIC PANEL Routine 01/07/2010 8:42 AM EDT documented in this encounter Results * (ABNORMAL) COMPREHENSIVE METABOLIC PANEL (NON-FASTING) (01/07/2010 8:42 AM EDT) Glucose 102 <=199 mg/dL CERNER MILLENNIUM Comment:Diabetes: >=200 mg/d L plus symptoms Blood Urea Nitrogen 17 10 - 20 mg/dL CERNER MILLENNIUM Creatinine 0.80 0.80 - 1.50 mg/dL CERNER MILLENNIUM Sodium 143 135 - 145 mmol/L CERNER MILLENNIUM Potassium 4.1 3.5 - 5.0 mmol/L CERNER MILLENNIUM Comment: Please note: ??Patients with WBC >100,000 may have falsely elevated Potassium levels. ??For accurate Potassium quantification in these patients send serum separator tube (gold top) for subsequent determinations. ??Contact the Clinical Chemistry Laboratory if there are any questions. Chloride 106 98 - 107 mmol/L CERNER MILLENNIUM Carbon Dioxide 25 22 - 31 mmol/L CERNER MILLENNIUM Anion Gap 12 5 - 15 mmol/L CERNER MILLENNIUM Calcium 9.4 8.5 - 10.5 mg/dL CERNER MILLENNIUM Protein, Total 7.4 6.4 - 8.3 gm/dL CERNER MILLENNIUM Albumin 4.4 3.2 - 5.2 gm/dL CERNER MILLENNIUM Aspartate Aminotransferase 34 0 - 39 unit/L CERNER MILLENNIUM Alanine Aminotransferase 56(H) 0 - 55 unit/L CERNER MILLENNIUM Alkaline Phosphatase 55 40 - 120 unit/L CERNER MILLENNIUM Bilirubin, Total 1.0 0.2 - 1.3 mg/dL CERNER MILLENNIUM Bilirubin, Direct 0.2 0.0 - 0.3 mg/dL CERNER MILLENNIUM Est Glomerular Filtration Rate >60 >=60 CERNER MILLENNIUM Comment: The National Kidney Disease Education Program (NKDEP) has recommended all laboratories report estimated GFR (eGFR) along with plasma creatinine measurements to assist you with recognition of early kidney disease. Caveats: ??Plasma creatinine should be at steady-state (unchanged within the past week). ??Patient age > = 18 years, and for Americans multiply eGFR by 1.2. At present, NKDEP does NOT recommend using [...] disease. References: http://nkdep.nih.gov/resources/NKDEP_Suggestn4Labs_0606_508.pdf http://www.kidney.org/professionals/kls/pdf/faq_gfr.pdf Blood specimen (specimen) 01/07/2010 8:42 AM EDT 01/07/2010 8:57 AM EDT Nereyda Salgado EBAY RESELLER CHEMISTRY ORDERAB LES [facility] * HIGH SENSITIVITY CRP (01/07/2010 8:42 AM EDT) C-Reactive Protein High Sensitivity 1.3 mg/L [facility] Comment: Interpretations: 1) For cardiac risk assessment, [...] prevention. ??Circulation 2003; 107:363-369 Blood specimen (specimen) 01/07/2010 8:42 AM EDT 01/07/2010 8:57 AM EDT Nereyda Gan Elvia Salgado EBAY RESELLER CHEMISTRY ORDERAB LES [facility] * REFLEX LAB-A-DIFF (01/07/2010 8:42 AM EDT) Neutrophil % 63.8 34.0 - 71.0 % CERNER MILLENNIUM Neutrophil Absolute 2.77 1.50 - 6.30 x10(3)/mcL CERNER MILLENNIUM Lymph % 25.5 19.0 - 53.0 % CERNER MILLENNIUM Lymphocytes Abs 1.1 1.0 - 3.6 x10(3)/mcL CERNER MILLENNIUM Monocyte % 8.7 4.0 - 13.0 % CERNER MILLENNIUM Monocyte Abs 0.4 0.2 - 1.0 x10(3)/mcL CERNER MILLENNIUM Eos % 1.6 0.0 - 7.0 % CERNER MILLENNIUM Eosinophils Abs 0.1 0.0 - 0.5 x10(3)/mcL CERNER MILLENNIUM Basophil % 0.2 0.0 - 2.0 % CERNER MILLENNIUM Baso Absolute 0.0 0.0 - 0.2 x10(3)/mcL CERNER MILLENNIUM Immature Gran % 0.20 0.00 - 0.66 % CERNER MILLENNIUM Comment: Immature granulocytes(IG's)percentage and absolute count will include metamyelocytes, myelocytes, and promyelocytes. Blood smears from CBC's yielding IG's will be scanned manually for concordance. If this scan disagrees with the automated IG or if promyelocytes are noted, a manual differential will be performed. Immature Gran Absolute 0.01 0.00 - 0.05 x10(3)/mcL CERNER MILLENNIUM Blood specimen (specimen) 01/07/2010 8:42 AM EDT 01/07/2010 8:57 AM EDT JaneElvia Salgado EBAY RESELLER HEMATOLOGY ORDERA BLES JESENIA GOLDBERG * CBC (01/07/2010 8:42 AM EDT) White Blood Cell 4.4 4.0 - 10.0 x10(3)/mcL CERNER MILLENNIUM Red Blood Cell 4.99 4.63 - 6.08 x10(6)/mcL CERNER MILLENNIUM Hemoglobin 15.1 13.7 - 17.5 gm/dL CERNER MILLENNIUM Hematocrit 43.5 40.0 - 51.0 % CERNER MILLENNIUM Mean Cell Volume 87.2 79.0 - 92.0 fL CERNER MILLENNIUM Mean Cell Hemoglobin 30.3 25.6 - 32.2 pg CERNER MILLENNIUM Mean Cell Hemoglobin Concentration 34.7 32.0 - 36.5 gm/dL CERNER MILLENNIUM Platelet 228 145 - 370 x10(3)/mcL CERNER MILLENNIUM RDW Standard Deviation 42.5 35.0 - 46.0 fL CERNER MILLENNIUM RDW coefficient of variation 13.4 10.9 - 14.4 % CERNER MILLENNIUM Mean Platelet Volume 9.8 9.0 - 12.0 fL CERNER MILLENNIUM Blood specimen (specimen) 01/07/2010 8:42 AM EDT 01/07/2010 8:57 AM EDT Nereyda Gan Elvia Salgado EBAY RESELLER HEMATOLOGY ORDERA BLES JESENIA GOLDBERG documented in this encounter Visit Diagnoses Not on filedocumented in this encounter Care Teams Health Promotion Officer Relationship Specialty Start Date End Date Ebenezer Way MD [address] [place] [address] PCP - General 02/05/10 04/22/11 documented as of this encounter
--- OUTSIDE RECORDS SUMMARY | 2024-03-10 02:04 | XMS_ITS | Encounter Summary ---
Author Organization [facility] Address [address] [place] [address] Care Team Providers Care Supervisor Stitching Department Name Role Phone Wallace, Irwin Thad Primary Care Provider [phone]- [phone] Encounter Details Date Type Department Care Team (Late st Contact Info) Description 06/20/2023 Lab Requisition [facility] Pathology & Laboratory Medicine - [facility] [address] [place] [address], [place] [id number] Outr Resulting Lab, Provider Social History Tobacco [...] Procedure Name Priority Date/Time Associated Diagnosis Comments QUANTIFERON MITOGEN (PERFORMABLE) Today 06/19/2023 10:52 EDT QUANTIFERON TB2 (PERFORMABLE) Today 06/19/2023 10:52 EDT QUANTIFERON TB1 (PERFORMABLE) Today 06/19/2023 10:52 EDT QUANTIFERON NIL (PERFORMABLE) Today 06/19/2023 10:52 EDT QUANTIFERON INTERPRETATION (PERFORMABLE) Today 06/19/2023 10:52 EDT QUANTIFERON TB GOLD PLUS Routine 06/19/2023 10:52 EDT documented in this encounter Results * QUANTIFERON INTERPRETATION (PERFORMABLE) (06/19/2023 10:52 EDT) [facility] Quantiferon Interpretation Negative Negative 06/21/2023 14:30 EDT [facility] Comment:No interferon-gamma response to M. tuberculosis antigens was detected. ??Infection with M. tuberculosis is unlikely. A single negative result does not exclude infection with M. tuberculosis. ??In patients at high risk for M. tuberculosis infection, a second test should be considered. TB1 Ag minus Nil 0.00 IU/ml 06/21/19 24 14:30 EDT [facility] TB2 Ag minus Nil 0.01 IU/mL 06/21/19 14:30 EDT [facility] Blood VENOUS BLOOD / Unknown 06/19/2023 10:52 EDT 06/21/2023 14:30 EDT us Provider Outr Resulting Lab IMMUNOLOGY AND SEROL OGY ORDERABLES Final Result Performing Organization Address [facility] Co de Phone Number [facility] [address] [place] [id number] * QUANTIFERON MITOGEN (PERFORMABLE) (06/19/2023 10:52 EDT) Blood VENOUS BLOOD / Unknown 06/19/2023 10:52 EDT 06/20/2023 21:31 EDT us Provider Outr Resulting Lab IMMUNOLOGY AND SEROL OGY ORDERABLES Final Result Performing Organization Address [facility]/ZIP Co de Phone Number [facility] [address] [place] [phone] * QUANTIFERON TB2 (PERFORMABLE) (06/19/2023 10:52 EDT) Blood VENOUS BLOOD / Unknown 06/19/2023 10:52 EDT 06/20/2023 21:31 EDT us Provider Outr Resulting Lab IMMUNOLOGY AND SEROL OGY ORDERABLES Final Result Performing Organization Address City/[facility]/ZIP Co de Phone Number [facility] [address] [place] [phone] * QUANTIFERON TB1 (PERFORMABLE) (06/19/2023 10:52 EDT) Blood VENOUS BLOOD / Unknown 06/19/2023 10:52 EDT 06/20/2023 21:31 EDT us Provider Outr Resulting Lab IMMUNOLOGY AND SEROL OGY ORDERABLES Final Result Performing Organization Address [facility] Co de Phone Number [facility] [address] [place] [address] * QUANTIFERON NIL (PERFORMABLE) (06/19/2023 10:52 EDT) Blood VENOUS BLOOD / Unknown 06/19/2023 10:52 EDT 06/20/2023 21:31 EDT us Provider Outr Resulting Lab IMMUNOLOGY AND SEROL OGY ORDERABLES Final Result Performing Organization Address [facility] Co de Phone Number [facility] [address] [place] [address] documented in this encounter Visit Diagnoses Not on filedocumented in this encounter Care Teams Supervisor Stitching Department Relationship Specialty Start Date End Date Irwin Gonsalez DO [address] [place] [address] PCP - General 01/14/21 documented as of this encounter
--- OUTSIDE RECORDS SUMMARY | 2024-03-10 02:04 | XMS_ITS | Encounter Summary ---
Author Organization [facility] [place] [address] Care Team Providers Care Accounting Auditor Name Role Phone Wallace Irwin MENDOZA Primary Care Provider Encounter Details Date Type Department Care Team (Late st Contact Info) Description 01/18/2009 [place] [id number] Ramonita Pandey MD GASTROENTEROLOGY Social History Tobacco [...] PM EST Hospital Encounter [place] [address] Apurva Vivas MD [facility] [place] [address] 04/01/2024 12:35 PM EST - 04/01/2024 2:17 PM EST Surgery Main Operating [place] [address] Apurva Vivas MD [facility] [place] [address] ANORECTAL EXAM, REQUIRING ANESTHESIA, DIAGNOSTIC (WRVU 1.8) 04/26/2024 3:00 PM EST Office [place] [address] Apurva Vivas MD [facility] [place] [address] Scheduled Procedures Name Priority Associated Diagnoses Date/Ti [...] No Perri Sousa, [facility] Note: Patient's specific desired goal: Igor would [...] Associated Diagnosis Comments SURGICAL PATHOLOGY REPORT Routine 01/18/2009 12:32 PM EST documented in this encounter Results * Surgical Pathology Report (01/18/2009 12:32 PM EST) Surgical Pathology Report [id number] ? Location: 4T The signing pathologist has (i) examined the relevant preparation(s) for the specimen(s) and (ii) rendered or confirmed the diagnosis(es). . ?Pathology Surgical Pathology Final Report Clinical Information Specimen Submitted: A - Mucosal biopsies active Crohn's cecum: B - Random mucosal biopsies right colon C - Mucosal biopsies left colon Clinical History: 33YO with Crohn's disease Clinical Diagnosis: Crohn's Gross Description A - Labeled/Fixativ e: Mucosal biopsies active Crohn's, cecum, formalin. Qty/Size/Weight : ?Three, averaging 0.2 cm in diameter. Tissue Description: ?? Soft, mazariegos tissue. Sections/Proces sing: ??(T1) B - Labeled/Fixativ e: Random mucosal biopsies, R colon, formalin. Qty/Size/Weight : ?Five, averaging 0.2 x 0.1 cm. Tissue Description: ?? Soft, mazariegos, wispy fragments. Sections/Proces sing: ??(T1) C - Labeled/Fixativ e: Mucosal biopsies, L colon, formalin. Qty/Size/Weight : ?Four, ranging from 0.2 cm in diameter to ?0.4 x 0.2 x 0.1 cm. Tissue Description: ?? Soft, mazariegos tissues. Sections/Proces sing: ??(T1) ??jlk/PPS Microscopic Description Slides reviewed, microscopic description not recorded. Diagnosis A - Cecum biopsy: ?Focal active colitis. B - Right colon biopsy: ?Colonic mucosa within normal limits. C - Left colon biopsy: ?Colonic mucosa within normal limits. Note: ??There is no evidence of granulomas or dysplasia in any of the above biopsies. . Diagnosis CR-PX 01/19/09 [facility] 01/19/09 Verified by: ? Barron Mendoza MD ?Pathologist ?(Electronic Signature) The attending pathologist whose signature appears on this report has reviewed all diagnostic slides and has edited the gross and/or microscopic portion of the report in rendering the final pathologic diagnosis. JESENIA GOLDBERG 01/18/2009 12:3 2 PM EST L Timothy Pandey MD PATHOLOGY/CYTOLOGY O [place] Performing Organization Address City/State/[facility] Co de Phone Number [facility] documented in this encounter Visit Diagnoses Not on filedocumented in this encounter Care Teams Accounting Auditor Relationship Specialty Start Date End Date Irwin Gonsalez DO [address] [place] [address] PCP - General 05/01/11 documented as of this encounter
--- OUTSIDE RECORDS SUMMARY | 2024-03-10 02:04 | XMS_ITS | Encounter Summary ---
Author Organization [facility] Address [address] [place] [address] Care Team Providers Care Merchandising Team Lead Name Role Phone Unavailable Primary Care Provider Unavailabl e Encounter Details Date Type Department Care Team (Late st Contact Info) Description 03/22/2003 Results Only [facility] [address] [place] [address] Torito Lopez MD [address] [place] [address] Social History Tobacco Use Types Packs/Day Years [...] Priority Date/Time Associated Diagnosis Comments SURGICAL PATHOLOGY Routine 03/22/2003 0:00 EST documented in this encounter Results * SURGICAL PATHOLOGY (03/22/2003 0:00 EST) Pathology Report: SURGICAL PATHOLOGY REPORT Reports generated via electronic interface contain original data; however they are lacking the format of the original report. Caution should be taken when reading/interpreting unformatted reports. Name: ? LALY TOURE ? Accession #: ? [id number] ? : ? 1975 (Age: 28) ??M ? Collect Date: ? 03/22/2003 ? Location: ? [facility] ? Receive Date: ? 03/22/2003 ? Provider: MELITA LOPEZ MD Copy to: TORITO BAIG MD ? Final Pathologic Diagnosis: A. ?Colon, ileocecal valve, biopsy: 1. ?Chronic colitis extending to submucosa with focal crypt abscess formation. See comment. B. ?Colon, hepatic flexure, biopsy: 1. ?Colonic mucosa with preserved crypt architecture with no specific pathologic changes. C. ?Colon, splenic flexure, biopsy: 1. ?Colonic mucosa with preserved crypt architecture and no specific pathologic changes. D. ?Rectum, biopsy: 1. ?Rectal mucosa with preserved crypt architecture and no specific pathologic changes. Comment: ? This case has been reviewed at the intradepartmental consultation conference. ( Dr Schulz) Document reviewed and electronically signed by: ELIN SCHULZ MD Report ??Date: 03/23/2003 18:23 By the signature above, the attending physician certifies that he/she has personally conducted a gross and/or microscopic examination of the described specimens and rendered or confirmed the above diagnosis. Specimen(s) Received: A. ?Ileocecal valve BX (#1) B. ?Hepatic Flexure BX (#2) C. ?Splenic Flexure BX (#3) D. ?BX @ rectum (#4) Clinical History: ? Crohn' s disease Gross Description: ? Received in Hollande's fixative labelled Choinier and ileocecal valve BX are three mazariegos, soft tissue biopsies ranging from 0.2 x 0.1 x 0.1 cm to 0.3 x 0.2 x 0.1 cm. ??Entirely submitted as (A). Received in Hollande's fixative labelled Choinier and hepatic flexure BX is a 0.2 x 0.1 x 0.1 cm, mazariegos, soft tissue biopsy. ??Entirely submitted as (B). Received in Hollande's fixative labelled Choinier and splenic flexure BX is a 0.3 x 0.1 x 0.1 cm, mazariegos, soft tissue biopsy. ??Entirely submitted as (C). Received in Hollande's fixative labelled Choinier and BX rectum is a 0.3 x 0.2 x 0.1 cm, mazariegos, soft tissue biopsy. ??Entirely submitted as (D). ??(Camelia Cornelius/raad End of Report RADHA TELLO 03/22/2003 03/22/2003 15: 13 EST us Torito Lopez MD PATHOLOGY ORDERABLES Final Res ult RADHA TELLO [address] [place] [address] documented in this encounter Visit Diagnoses Not on filedocumented in this encounter
--- OUTSIDE RECORDS SUMMARY | 2024-03-10 02:04 | XMS_ITS | Clinical Summary ---
Author Organization [facility] Address [address] [place] [address] Care Team Providers Care Vice President Of Talent Management Name Role Phone WallaceIrwin kaye Primary Care Provider [phone] Encounters Date Type Department Care Team Description 01/12/2024 Lab Requisition [facility] Pathology & Laboratory Medicine - [address] [address] Outr Resulting Lab, Provider from Last 3 Months Social History Tobacco Use Types Packs/Day Years Used Date Smoking Tobacco: Never Assessed Sex and Gender Information Value Date Recorded Sex Assigned at Not on file Legal Sex Male 18:00 EST Gender Identity Not on file Sexual Orientation Not on file Plan of Treatment Health Maintenance Due Date Last Done Comments Hepatitis B Vaccine (1 of 3 - 19+ 3-dose series) 02/19 COVID-19 Vaccine ( season) 2023 Hepatitis C Screen Completed 04/16/2019 Procedures Procedure Name Priority Date/Time Associated Diagnosis Comments PSA TOTAL, DIAGNOSTIC Routine 01/12/2024 9:07 EDT HEPATITIS C AB W REFLEX TO HCV RNA BY PCR Routine 04/16/2019 9:38 EST from Last 3 Months or Most Recently Relevant to Health Maintenance Results * (ABNORMAL) PSA TOTAL, DIAGNOSTIC (01/12/2024 9:07 EDT) PSA 6.1(H) <=2.5 ng/mL 01/12/2024 18:38 EDT [facility] Blood VENOUS BLOOD / Unknown 01/12/2024 9:07 EDT 01/12/2024 17:53 EDT Narrative [facility] - 01/12/2024 18:38 EDT NOTE: Serum PSA concentration should not be interpreted as absolute evidence for the presence or absence of malignant disease. Assayed on Siemens ADVIA YapStoneaur XPT using chemiluminescent technology.??Values obtained by using different assay methods cannot be used interchangeably. us Provider Outr Resulting Lab CHEMISTRY & BLOOD GA S ORDERABLES Final Result [facility] [address] [place] [address] * HEPATITIS C AB W REFLEX TO HCV RNA BY PCR (04/16/2019 9:38 EST) Hep C Antibody Negative Negative 04/18/2019 10:38 EST [facility] Blood VENOUS BLOOD / Unknown 04/16/2019 9:38 EST 04/17/2019 15:56 EST Provider Unknown MD CHEMISTRY & BLOOD GAS ORDERA BLES Final Result Performing Organization Address City/[facility]/ZIP Co de Phone Number [facility] [address] [place] [address] from Last 3 Months or Most Recently Relevant to Health Maintenance Insurance [facility] Care Teams Vice President Of Talent Management Relationship Specialty Start Date End Date Irwin Gonsalez, DO SERRANO: [phone] [address] [place] [address] [facility] - General 01/14/21
--- OUTSIDE RECORDS SUMMARY | 2024-03-10 02:04 | XMS_ITS | Encounter Summary ---
[place] [address] Care Team Providers Care Electric Golf Cart Repairer Name Role Phone Ebenezer Way MD Primary Care Provider [phone] Encounter Details Date Type Department Care Team (Latest Contact Info) Description 02/28/2010 7:14 AM EST - 02/28/2010 10:00 AM [facility] Hospital Encounter [place] [address] Ramonita Pandey MD [facility] [place] [address] Discharge Disposition: Home Social History Tobacco Use Types Packs/Day Years Used Date Smoking Tobacco: Never Assessed Sex and Gender Information Value Date Recorded Sex Assigned at Male 06/08/2023 4:49 PM EDT Gender Identity Not on file Sexual Orientation Not on file documented as of this encounter Plan of Treatment Upcoming Encounters Date Type Department Care Team (Latest Contact Info) Description 04/01/2024 12:35 PM [facility] Hospital Encounter [place] [address] Apurva Vivas MD [facility] [place] [address] 04/01/2024 12:35 PM EST - 04/01/2024 2:17 PM EST Surgery [place] [address] Apurva Vivas MD [facility] [place] [address] ANORECTAL EXAM, REQUIRING ANESTHESIA, DIAGNOSTIC (WRVU 1.8) 04/26/2024 3:00 PM EST Office [place] [address] Apurva Vivas MD [facility] [place] [address] Scheduled Procedures Name Priority Associated Diagnoses Date/Ti me ANORECTAL EXAM, REQUIRING ANESTHESIA, DIAGNOSTIC (WRVU 1.8) perianal crohns disease w/fistula 04/01/2024 12:35 PM EST SURGICAL TREATMENT OF ANAL FISTULA COMPLEX OR MULTIPLE W\WO SETON PLACEMENT (WRVU 6.39) perianal crohns disease w/fistula 04/01/2024 12:35 PM EST documented as of this encounter Visit Diagnoses Not on filedocumented in this encounter Care Teams Electric Golf Cart Repairer Relationship Specialty Start Date End Date Ebenezer Way MD [address] [address] PCP - General 02/05/10 04/22/11 documented as of this encounter
--- OUTSIDE RECORDS SUMMARY | 2024-03-10 02:04 | XMS_ITS | Encounter Summary ---
[place] [address] Care Team Providers Care Set And Exhibit Designer Name Role Phone Ebenezer Way MD Primary Care Provider Encounter Details Date Type Department Care Team (Late st Contact Info) Description 03/26/2010 4:00 PM EST Office Visit [place] [address] Social History Tobacco Use Types Packs/Day Years [...] Encounter [place] [address] Apurva Vivas MD [facility] [place] [address] 04/01/2024 12:35 PM EST - 04/01/2024 2:17 PM EST Surgery [place] [address] Apurva Vivas MD [facility] [place] [address] ANORECTAL EXAM, REQUIRING ANESTHESIA, DIAGNOSTIC (WRVU 1.8) 04/26/2024 3:00 PM EST Office [place] [address] Apurva Vivas MD [facility] [place] [address] Scheduled Procedures Name Priority Associated Diagnoses Date/Ti wv ANORECTAL EXAM, REQUIRING ANESTHESIA, DIAGNOSTIC (WRVU 1.8) perianal crohns disease w/fistula 04/01/2024 12:35 PM EST SURGICAL TREATMENT OF ANAL FISTULA COMPLEX OR MULTIPLE W\WO SETON PLACEMENT (WRVU 6.39) perianal crohns disease w/fistula 04/01/2024 12:35 PM EST documented as of this encounter Visit Diagnoses Not on filedocumented in this encounter Care Teams Set And Exhibit Designer Relationship Specialty Start Date End Date Ebenezer Way MD [address] [place] [address] PCP - General 02/05/10 04/22/11 documented as of this encounter
--- OUTSIDE RECORDS SUMMARY | 2024-03-10 02:04 | XMS_ITS | Encounter Summary ---
[place] [address] Care Team Providers Care Director Of Education Name Role Phone Ebenezer Way MD Primary Care Provider [phone] Encounter Details Date Type Department Care Team (Late st Contact Info) Description 02/28/2010 7:00 AM EST Procedure [place] [address] Ramonita Pandey MD [facility] [place] [address] Social History Tobacco Use Types Packs/Day Years [...] PM EST Hospital Encounter [place] [address] Apurva Vivas MD [facility] [place] [address] 04/01/2024 12:35 PM EST - 04/01/2024 2:17 PM EST Surgery [place] [address] Apurva Vivas MD [facility] [place] [address] ANORECTAL EXAM, REQUIRING ANESTHESIA, DIAGNOSTIC (WRVU 1.8) 04/26/2024 3:00 PM EST Office [place] [address] Apurva Vivas MD [facility] [place] [address] Scheduled Procedures Name Priority Associated Diagnoses Date/Ti me ANORECTAL EXAM, REQUIRING ANESTHESIA, DIAGNOSTIC (WRVU 1.8) perianal crohns disease w/fistula 04/01/2024 12:35 PM EST SURGICAL TREATMENT OF ANAL FISTULA COMPLEX OR MULTIPLE W\WO SETON PLACEMENT (WRVU 6.39) perianal crohns disease w/fistula 04/01/2024 12:35 PM EST documented as of this encounter Visit Diagnoses Not on filedocumented in this encounter Care Teams Director Of Education Relationship Specialty Start Date End Date Ebenezer Way MD [address] [address] PCP - General 02/05/10 04/22/11 documented as of this encounter
--- OUTSIDE RECORDS SUMMARY | 2024-03-10 02:04 | XMS_ITS | Encounter Summary ---
Author Organization [facility] Address [address] [place] [address] Care Team Providers Care Wood Fence Erector Name Role Phone Unavailable Primary Care Provider Unavailabl e Encounter Details Date Type Department Care Team (Late st Contact Info) Description 04/15/2006 Results Only [facility] - Maple conversion [address] [place] [address] Torito Lopez MD [address] [place] [address] Social History Tobacco Use Types Packs/Day Years [...] Date/Time Associated Diagnosis Comments SURGICAL PATHOLOGY Routine 04/15/2006 0:00 EST documented in this encounter Results * SURGICAL PATHOLOGY (04/15/2006 0:00 EST) Pathology Report: SURGICAL PATHOLOGY REPORT Reports generated via electronic interface contain original data; however they are lacking the format of the original report. Caution should be taken when reading/interpreti ng unformatted reports. Name: ? LALY TOURE ? Accession #: ? [id number] ? : ? 1975 (Age: 31) ??M ? Collect Date: ? 04/15/2006 ? Location: ? [facility] ? Receive Date: ? 04/15/2006 ? Provider: MELITA LOPEZ MD Copy to: TORITO BAIG MD ? Final Pathologic Diagnosis: ? Ileocecal valve, biopsy: 1. Colonic mucosa with focal architectural disarray. ??See comment. Comment: ? The specimen consists of focal architectural disarray. No activity is identified in the submitted specimen. This case was reviewed at intradepartmental consultation conference. ??(Dr. Mejias)/[facility] Document reviewed and electronically signed by: ELSIE GIANG MD Report ??Date: 04/17/2006 16:31 By the signature above, the attending physician certifies that he/she has personally conducted a gross and/or microscopic examination of the described specimens and rendered or confirmed the above diagnosis. Specimen(s) Received: ? Bx @ ileocecal valve Clinical History: ? Hx of Crohn's x 15 years Gross Description: ? Received in Hollande's fixative labelled Choiniere and bx ileocecal valve is a mazariegos-pink 0.3 x 0.2 x 0.2 cm soft tissue fragment. ??The specimen is entirely submitted in one cassette. ??(Ria Castañeda)/[facility] End of Report RADHA TELLO 04/15/2006 04/15/2006 15: 29 EST us Torito Lopez MD PATHOLOGY ORDERABLES Final Res ult RADHA TELLO [address] [place] [address] documented in this encounter Visit Diagnoses Not on filedocumented in this encounter
--- OUTSIDE RECORDS SUMMARY | 2024-03-10 02:04 | XMS_ITS | Encounter Summary ---
Author Organization [facility] Address [address] [place] [address] Care Team Providers Care Lapel Padder Blindstitch Name Role Phone Warren Sampson MD Primary Care Provider Unavailab Irwin López DO Primary Care Provider [phone] Encounter Details Date Type Department Care Team (Late st Contact Info) Description 04/17/2019 Lab Requisition [facility] Pathology & Laboratory Medicine - [address] [address] Unknown, Provider, Social History Tobacco Use Types Packs/Day Years [...] Procedure Name Priority Date/Time Associated Diagnosis Comments HEPATITIS C AB W REFLEX TO HCV RNA BY PCR Routine 04/16/2019 9:38 EST documented in this encounter Results * HEPATITIS C AB W REFLEX TO HCV RNA BY PCR (04/16/2019 9:38 EST) Hep C Antibody Negative Negative 04/18/2019 10:38 EST [facility] Blood VENOUS BLOOD / Unknown 04/16/2019 9:38 EST 04/17/2019 15:56 EST us Provider Unknown CHEMISTRY & BLOOD GAS ORDERA BLES Final Result [facility] [address] [place] [address] documented in this encounter Visit Diagnoses Not on filedocumented in this encounter Care Teams Lapel Padder Blindstitch Relationship Specialty Start Date End Date Warren Sampson MD PCP - General 01/21/15 01/13/21 Irwin Gonsalez DO [address] [place] [address] PCP - General 01/14/21 documented as of this encounter
--- OUTSIDE RECORDS SUMMARY | 2024-03-10 02:04 | XMS_ITS | Encounter Summary ---
Author Organization [facility] Address [address] [place] [address] Care Team Providers Care Brass Chaser Name Role Phone Irwin Gonsalez DO Primary Care Provider [phone] Encounter Details Date Type Department Care Team (Late st Contact Info) Description 02/05/2021 Lab Requisition [facility] Pathology & Laboratory Medicine - [facility] [address] [place] [address] Irwin Gonsalez DO [address] [place], [place] [address] Encounter for other general examination Social History Tobacco Use Types Packs/Day Years [...] Priority Date/Time Associated Diagnosis Comments SURGICAL PATHOLOGY Today 02/05/2021 10 :45 EST Encounter for other general examination documented in this encounter Results * SURGICAL PATHOLOGY (02/05/2021 10:45 EST) Note to Patient The following pathology results have been interpreted by your pathologist and may be available to you before your health provider has had the opportunity to review them. Please allow time for your provider to receive these results and explore management options, if applicable. 02/06/2021 15:45 EST [facility] Final Diagnosis A. SKIN OF SHOULDER, RIGHT, PUNCH BIOPSY: - Dermatofibroma. - Lesion extends to peripheral edge and base of biopsy specimen. 02/06/2021 15:45 [facility] Attestation By the signature below, the attending physician certifies that they have 1) personally conducted a gross and/or microscopic examination of the described specimen(s), and/or personally interpreted the results of laboratory testing of the described specimen(s), and 2) personally rendered or confirmed the above diagnosis. 02/06/2021 15:45 [facility] at 1545 Clinical History Basal cell R shoulder 02/06/2021 15:45 [facility] Gross Description A. Received in formalin labelled with proper patient identification (initials C, N) and 3 mm punch R shoulder is a punch biopsy mazariegos skin (0.3 cm in diameter by 0.2 cm in depth). The specimen is submitted intact in A1. MARCOS WARD(ASCP) 02/06/2021 7:55 02/06/2021 15:45 [facility] Performing Lab [facility] 02/06/2021 15:45 [facility] Scanned Images 02/06/2021 15:45 [facility] Tissue TISSUE SPECIMEN FROM SKIN / Unknown 02/05/2021 10:45 EST 02/05/2021 22:39 EST Irwin Gonsalez DO PATHOLOGY ORDERABLES Final Result Performing Organization Address City/State/[facility] Co de Phone Number [facility] [address] [place] [address] documented in this encounter Visit Diagnoses Diagnosis Encounter for other general examination documented in this encounter Care Teams Brass Chaser Relationship Specialty Start Date End Date Irwin Gonsalez DO [address] [place] [address] PCP - General 01/14/21 documented as of this encounter
--- OUTSIDE RECORDS SUMMARY | 2024-03-10 02:04 | XMS_ITS | Encounter Summary ---
[place] [address] Care Team Providers Care Dye Penetrant Testing Technician Name Role Phone Ebenezer Way MD Primary Care Provider [phone] Encounter Details Date Type Department Care Team (Late st Contact Info) Description 02/28/2010 [place] [address] Ramonita Matamoros MD [facility] [place] [address] Social History Tobacco Use Types Packs/Day Years [...] PM EST Hospital Encounter [place] [address] Apurva Vivas MD [facility] [place] [address] 04/01/2024 12:35 PM EST - 04/01/2024 2:17 PM EST Surgery [place] [address] Apurva Vivsa MD [facility] [place] [address] ANORECTAL EXAM, REQUIRING ANESTHESIA, DIAGNOSTIC (WRVU 1.8) 04/26/2024 3:00 PM EST Office [place] [address] Apurva Vivas MD [facility] [place] [address] Scheduled Procedures Name Priority Associated Diagnoses Date/Ti [...] EST documented in this encounter Results * PATHOLOGY SURGICAL PATHOLOGY FINAL REPORT (02/28/2010 9:46 AM EST) Surgical Pathology Report ? [facility] ? Provider: ?? Ramonita MATAMOROS ?Pt. Name: ?? LALY TOURE ? Acc #: ?[id number] ?Pt. ? Col Date: ?? 02/28/2010 ?/Sex: ?1975,(35 years),Male ? Rec Date: ?? 02/28/2010 ?LOC: ?SDP ? SURGICAL PATHOLOGY ? ---Pathologic Diagnosis--- ? Ileocecal valve, biopsy: ?Small intestinal mucosa with chronic minimally active inflammation. ?Colonic mucosa with architectural distortion. ?There is no evidence of dysplasia or granuloma. ? CR-0, CR-PX ? 03/04/10 ? VMS ? 03/04/10 Verified by: ? Yoseph Velez MD ? Pathologist ? (Electronic Signature) ? The attending pathologist whose signature appears on this report has ? reviewed all diagnostic slides and has edited the gross and/or ? microscopic portion of the report in rendering the final pathologic ? diagnosis. ? ---Microscopic Description--- ? Slides reviewed, microscopic description not recorded. ? ---Gross Description--- ? Labeled/Fixative: ? Mucosal biopsies IC valve stricture, formalin. ? Qty/Size/Weight: ?Four, 0.1 cm to 0.3 cm. ? Tissue Description: ?? Mazariegos-yellow and mazariegos-pink tissues. ? Sections/Processi ng: ??(T1) ??aje/EJR ? ---Clinical Information--- ? Specimen Submitted: ? A - Mucosal biopsies, ic valve stricture ? Clinical History: ? Not provided ? Clinical Diagnosis: ? Crohn's disease - restage disease JESENIA GOLDBERG 02/28/2010 9:46 AM EST L Timothy Matamoros MD PATHOLOGY/CYTOLOGY [place] Performing Organization Address City/State/[facility] Co de Phone Number CERNER MILLENNIUM documented in this encounter Visit Diagnoses Not on filedocumented in this encounter Care Teams Dye Penetrant Testing Technician Relationship Specialty Start Date End Date Ebenezer Way MD [address] [place] [address] PCP - General 02/05/10 04/22/11 documented as of this encounter
[2024-03-10 18:17] LABS: PSA, Screening 5.4 ng/mL (<=2.5)
[2024-03-11 08:49] LABS: HBs Antibody, Quant 3.2 mIU/mL (See Note); Hepatitis B Surface Ab Negative (See Note)
[2024-03-11 09:51] LABS: Hep B Core Antibody Negative (Negative)
[2024-03-14 12:52] LABS: TB Interpretation Negative (Negative); TB1 Ag minus Nil 0.02 IU/mL; TB2 Ag minus Nil 0.03 IU/mL
== END 2024-03-10 01:43 | disposition home or self-care (01) ==
PROVIDERS: PCP Nurse Practitioner Family; Visit Provider Student in an Organized Health Care Education/Training Program
DX: Z12.5 Encounter for screening for malignant neoplasm of prostate (principal); K50.018 Crohn's disease of small intestine with other complication
CPT/HCPCS: 36415; 84153; 86704; 86706; 86480

== ENCOUNTER 2024-04-05 02:11 | Outpatient (RCR) | payer BC, SELFPAY ==
[2024-04-05] VITALS (7 sets, daily range): BP systolic 115–145; BP diastolic 81–89; PULSE 58–89; RESP 16–17; TEMP 36.1–36.7; O2SAT 96–100
[2024-04-05] MEDS: Loratidine 10 MG TAB PO (08:47)
[2024-04-05] MEDS: Normal Saline Flush 10 ML SYR IVP (08:47)
[2024-04-05] MEDS: Acetaminophen 325 MG TAB 650 MG PO (08:47)
[2024-04-05 08:55] LABS: HCT 44.5 % (40.0-50.0); MCH 28.8 pg (27.0-33.0); MCHC 33.7 % (32.0-36.0); MCV 85 fL (80-95); MPV 9.3 fL (8.0-11.0); Platelet Count 244 10^3/uL (130-400); RBC 5.21 10^6/uL (4.36-5.78); RDW 12.1 % (11.8-14.1); RDW-SD 37.6 fL; WBC 5.46 10^3/uL (4.4-10.8)
[2024-04-05] MEDS: inFLIXimab 600 MG in Normal Saline 250 ML 125 MG IVPB (08:56)
[2024-04-05 09:08] LABS: ALT 34 U/L (16-63); AST 19 U/L (15-37); Albumin 3.5 g/dL (3.4-5.0); Alkaline Phosphatase 82 U/L (46-116); Bilirubin, Direct 0.2 mg/dL (0.0-0.2); Bilirubin, Total 0.66 mg/dL (0.2-1.0); Total Protein 7.6 g/dL (6.4-8.2)
[2024-04-05 09:10] LABS: C-Reactive Protein < 0.50 mg/dL (<or=0.5)
== END 2024-04-15 23:59 | disposition home or self-care (01) ==
LOC: INF 02:11
PROVIDERS: Internal Medicine Gastroenterology; PCP Nurse Practitioner Family; Visit Provider Family Medicine
DX: K50.90 Crohn's disease, unspecified, without complications (principal)
CPT/HCPCS: 36415; 80076; 85027; 96365; 96366; 86140; J1745

== ENCOUNTER 2024-04-18 02:31 | Outpatient (RCR) | payer BC, SELFPAY ==
--- OUTSIDE RECORDS SUMMARY | 2024-04-18 02:34 | XMS_ITS | Encounter Summary ---
[place] [address] Care Team Providers Care Monument Setter Helper Name Role Phone Irwin Gonsalez DO Primary Care Provider [phone] Reason for Visit * Reason Comments Prior Authorization Humira Pen 40mg/0.4m L PNKT Encounter Details Date Type Department Care Team (Late st Contact Info) Description 04/21/2022 Specialty [place] [address] Marielle Colbert Social History Tobacco [...] : 1975 Patient Address: [address] [facility] [address] Phone: [phone] (home) Medication Name: HUMIRA(CF) PEN 40 MG/0.4 ML SUBCUTANEOUS KIT Medication ID: [id number] Patient Location: [facility] GASTRO 4L Patient Location Comment: Medication Strength Frequency Requested: inject 40mg subcutaneously once every 7 days Qty/Day Supply: 07/11 New Start: Renewal Diagnosis & ICD-10 Code: Crohn's Disease Subscriber Insurance: Isaac Panda Security Subscriber Insurance Comment: Fax: Physician: Ramonita MATAMOROS Physician Comment : PA Status: PA on File Insurance mandated Pharmacy: Fillable at [facility] Specialty Pharmacy: Insurance requirements/notes: None Copay: Copay assistance: Copay assistance comment: Pharmacy staff will be reaching out to the patient to inform them of their medication's [facility]. If applicable, a pharmacist will speak with the patient to offer our specialty pharmacy services and to arrange delivery of their medication. Marielle Colbert 04/21/22 2:59 PM documented in this encounter Plan of Treatment Not on file documented as of this encounter Goals Goal Patient Goal Type Associated Problems Recent Progress Patient-Stated? Author [facility] Medication Compliance and Understanding Patient Facing [...] on filedocumented in this encounter Care Teams Monument Setter Helper Relationship Specialty Start Date End Date Irwin Gonsalez DO [address] [place] [address] PCP - General 05/01/11 03/14/24 documented as of this encounter
--- OUTSIDE RECORDS SUMMARY | 2024-04-18 02:34 | XMS_ITS | Encounter Summary ---
Author Organization [facility] [place] [address] Care Team Providers Care Food Manager Name Role Phone Irwin Gonsalez DO Primary Care Provider Reason for Referral * Diagnostic Test (Routine) - Closed Specialty Diagnoses / Procedures Referred By Contac t Referred To Contact Radiology Diagnoses Crohn's disease of perianal region with fistula Procedures MRI Pelvis Soft Tissue (GI AVIATION PROJECT ENGINEER) wwo Contrast Bárbara Santoro PA [facility] [place] [address] [place] [address] Referral ID Status Reason Start Date Expiration Date V isits Requested Visits Authorized [id number] Closed Specialty Service Requested 02/17/2024 08/17/2025 1 1 Reason for Visit * Diagnostic Test (Routine) - Closed Specialty Diagnoses / Procedures Referred By Contac t Referred To Contact Radiology Diagnoses Crohn's disease of perianal region with fistula Procedures MRI Pelvis Soft Tissue (GI AVIATION PROJECT ENGINEER) wwo Contrast Bárbara Santoro PA [facility] [place] [address] [place] [address] Referral ID Status Reason Start Date Expiration Date V isits Requested Visits Authorized [id number] Closed Specialty Service Requested 02/17/2024 08/17/2025 1 1 Encounter Details Date Type Department Care Team (Latest Contact Info) Description 02/27/2024 10:18 AM EST - 02/27/2024 11:59 PM EST [place] [address] Apurva Vivas MD [facility] [place] [address] Crohn's disease of perianal region [...] Sig Dispensed Refills Start Date End Date sertraline (Zoloft) 25 mg tablet Take 25 mg by mouth daily. ADWOA Clay, Pen 40 mg/0.4 mL Pen [...] 9:39 PM EDT) No Perri Sousa, [facility] Note: Patient's specific desired [...] Diagnosis Comments MRI PELVIS SOFT TISSUE (GI AVIATION PROJECT ENGINEER) WWO CONTRAST Routine 02/27/2024 12:39 PM EST Crohn's disease of perianal region with fistula documented in this encounter Results * MRI Pelvis Soft Tissue (GI AVIATION PROJECT ENGINEER) wwo Contrast (02/27/2024 12:39 PM EST) WORKSTATION ID [id number] RAD Anatomical Region Laterality Modality Pelvis Magnetic [...] who have questions please contact the health home care assistant that requested your imaging first. ? Narrative 03/01/2024 10:44 AM EST EXAMINATION: MRI PELVIS SOFT TISSUE (GI AVIATION PROJECT ENGINEER) WWO CONTRAST CLINICAL HISTORY: hx fistulizing perianal Crohn's disease - increased pain/swelling. prior seton placement right lateral K50.113, Crohn's disease of large intestine with fistula - K60.30, Anal fistula, unspecified TECHNIQUE: MRI of the pelvis prior to and following the intravenous administration of 23ml Dotarem. COMPARISON: MRI PELVIS SOFT TISSUE (GI AVIATION PROJECT ENGINEER) WWO CONTRAST 01/21/2016 MR Enterography 02/25/2019 FINDINGS: [...] 03/01/2024 EXAMINATION: MRI PELVIS SOFT TISSUE (GI AVIATION PROJECT ENGINEER) WWO CONTRAST CLINICAL HISTORY: hx fistulizing perianal Crohn's disease - increased pain/swelling. prior seton placement right lateral K50.113, Crohn's disease of large intestine with fistula - K60.30, Analfistula, unspecified TECHNIQUE: MRI of the pelvis prior to and following the intravenous administration of 23ml Dotarem. COMPARISON: MRI PELVIS SOFT TISSUE (GI AVIATION PROJECT ENGINEER) WWO CONTRAST 01/21/2016 MR Enterography 02/25/2019 FINDINGS: [...] patients who have questions please contactthe health home care assistant that requested your imaging first. Apurva Vivas MD [facility] MRI ORDERABLES documented in this encounter Visit [...] mLs documented in this encounter Care Teams Food Manager Relationship Specialty Start Date End Date Irwin Gonsalez DO [address] [place] [address] [address] [place] [address] PCP - General 05/01/11 03/14/24 documented as of this encounter
--- OUTSIDE RECORDS SUMMARY | 2024-04-18 02:34 | XMS_ITS | Encounter Summary ---
[place] [address] Care Team Providers Care Motorcycle Assembler Name Role Phone Irwin Gonsalez DO Primary Care Provider [phone] Encounter Details Date Type Department Care Team (Late st Contact Info) Description 06/12/2023 Tele[place] [address] Leila Mccallum Social History Tobacco Use Types [...] on filedocumented in this encounter Care Teams Motorcycle Assembler Relationship Specialty Start Date End Date Irwin Gonsalez DO [address] [place] [address] PCP - General 05/01/11 03/14/24 documented as of this encounter
--- OUTSIDE RECORDS SUMMARY | 2024-04-18 02:34 | XMS_ITS | Encounter Summary ---
[place] [address] Care Team Providers Care Entry Level Financial Analyst Name Role Phone Irwin Gonsalez DO Primary Care Provider Encounter Details Date Type Department Care Team (Latest Contact Info) Description 03/03/2024 9:00 AM EST TH Visit (TeleHealth) [place] [address] Nereyda Salgado, CLOTH NAPPING SUPERVISOR [facility] [place] [address] Crohn's disease of ileum with other complication [...] Salgado APRN - 03/03/2024 9:00 AM EST [facility] Gastroenterology Telehealth Visit Primary care provider: Irwin [...] MRE 02/2019 - normal. Stopped AZA 03/2019 Somis 05/23/21 - Rutgeert's i1 - single small [...] Value Ref Range Status COLONOSCOPY 05/23/2021 Final Value:[facility] Endoscopy Procedure Date: 05/23/2021 2:40 PM Patient Name: Igor Woodruff Date of : 1975 Age: 46 Order #: [id number] Instrument Name: [id number] Procedure: Colonoscopy Patient Profile: This is a 46 year old male. This patient has ileal Crohn's disease with perianal involvement, is taking adalimumab and is experiencing mild symptoms. Providers: Angelo Pandey MD, Elmo Woods, Lighting Technician Referring MD: Irwin Gonsalez DO Medicines: Midazolam [...] bowel preparation was evaluated using the BBPS (Rowdy Bowel Preparation Scale) with scores of: Right [...] stenosis noted. Apart from the previously described lxit-pa-xmcg widely patent ileocolonic anastomosis in the ascending [...] 05/23/2021 2:40 PM Final Diagnosis 05/23/2021 Final Value:[id number] Location: 4T; [facility]; A The signing pathologist has (i) examined [...] MD Verified: 05/25/2021 15:19 Pathologist Performed at: -[facility] Dept. of Pathology, [place], [place] SPECIMEN(S) SUBMITTED A - Mucosal biopsies; [...] or most commonly, upper respiratory infections; positive eubk-ufucnl-biyhsvfx DNA antibodies, and rarely a lupus-like syndrome; [...] with colorectal surgery. - Send stool studies( [facility]). 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 Chaney or Dr. Pandey in 3 months Please contact me if there are any further questions regarding the care of this patient. Nereyda Salgado (Connie), MSN, CLOTH NAPPING SUPERVISOR Gastroenterology Section [facility] documented in this encounter Plan of Treatment Scheduled Orders Name Type Priority Associated Diagnoses Orde r Schedule Stool Culture Screen ([facility]/CGP/APD/NL) Microbiology Routine Crohn's disease of ileum with other complication Expected: 03/03/2024, Expires: 09/02/2024 C. Difficile Screen Microbiology Routine Crohn's disease of ileum with other complication Expected: 03/03/2024, Expires: 09/02/2024 Calprotectin, Stool Lab Routine Crohn's disease of ileum with other complication Expected: 03/03/2024 (Approximate), Expires: 03/03/2025 documented as of this encounter Goals Goal Patient Goal Type Associated Problems Recent Progress Patient-Stated? Author [facility] Medication Compliance and Understanding Patient Facing [...] complication documented in this encounter Care Teams Entry Level Financial Analyst Relationship Specialty Start Date End Date Irwin Gonsalez DO [address] [place] [address] [address] [place] [address] PCP - General 05/01/11 03/14/24 documented as of this encounter
--- OUTSIDE RECORDS SUMMARY | 2024-04-18 02:34 | XMS_ITS | Encounter Summary ---
Author Organization [facility] Address [facility] [place] [address] Care Team Providers Care Visual Effects Editor Name Role Phone Irwin Gonsalez DO Primary Care Provider [phone] Encounter Details Date Type Department Care Team (Latest Contact Info) Description 11/09/2023 8:30 AM EDT Procedure [place] [address] Bharathi Rosas MD [facility] [place] [address] Crohn's disease of ileum with other complication [...] Care Intestinal Ultrasound 11/09/23 Indication: Crohn's ileocolitis Full Service Vending Driver: Bharathi Rosas MD Verbal consent to perform [...] Bharathi Rosas MD [facility] Aircraft Loadmaster Superintendentruby rails developer, Section of Gastroenterology [facility], [facility] documented in this encounter Plan of Treatment [...] complication documented in this encounter Care Teams Visual Effects Editor Relationship Specialty Start Date End Date Irwin Gonsalez DO [address] [place] [address] PCP - General 05/01/11 03/14/24 documented as of this encounter
--- OUTSIDE RECORDS SUMMARY | 2024-04-18 02:34 | XMS_ITS | Encounter Summary ---
[place] [address] Care Team Providers Care Street Department Dispatcher Name Role Phone Richard Tidwell APRN Primary Care Provider [phone] Encounter Details Date Type Department Care Team (Late st Contact Info) Description 03/25/2024 Tele[place] [address] Leila Mccallum Social History Tobacco Use Types Packs/Day Years Used Date Smoking Tobacco: Never Smokeless Tobacco: Never Alcohol Use Standard Drinks/Week Comments Yes 1 (1 standard drink = 0.6 oz pur e alcohol) [facility] Inpatient Questions Answer Date Recorded Does Anyone Try to Keep You From Having Contact with Others or Doing Things Outside Your Home? unable to answer (comment required) 03/17/2024 Feels Threatened by Someone unable to an swer (comment required) 03/17/2024 Feels Unsafe at Home or Work/School unab le to answer (comment required) 03/17/2024 Physical Signs of Abuse Present no 03/17/2024 Sex and Gender Information Value Date Recorded Sex Assigned at Male 06/08/2023 4:49 PM EDT Gender Identity Not on file Sexual Orientation Not on file documented as of this encounter Miscellaneous Notes * Telephone Encounter - Leila Mccallum - 03/25/2024 3:45 PM EST Left message. Need to schedule a follow-up with Dr. Chaney in May. Can schedule on a Thursday in either Pandey or Garcia schedule and evin as Dr Chaney Seeing patient. documented in this encounter Plan of Treatment [...] on filedocumented in this encounter Care Teams Street Department Dispatcher Relationship Specialty Start Date End Date Richard Tidwell APRN [address] [place] [address] PCP - General Family Medicine 03/15/24 documented as of this encounter
--- OUTSIDE RECORDS SUMMARY | 2024-04-18 02:34 | XMS_ITS | Encounter Summary ---
[place] [address] Care Team Providers Care Vp Training Name Role Phone Irwin Gonsalez DO Primary Care Provider [phone] Reason for Visit * Reason Comments Medication Refill Encounter Details Date Type Department Care Team (Late st Contact Info) Description 12/09/2023 Refill [place] [address] Ramonita Pandey MD [facility] [place] [address] Crohn's disease of ileum with other complication [...] Type Associated Problems Recent Progress Patient-Stated? Author [facility] Medication Compliance and Understanding Patient Facing Action Plan On track( 017 9:39 PM EDT) No Perri Sousa, [facility] Note: [...] complication documented in this encounter Care Teams Vp Training Relationship Specialty Start Date End Date Irwin Gonsalez DO [address] [place] [address] PCP - General 05/01/11 03/14/24 documented as of this encounter
--- OUTSIDE RECORDS SUMMARY | 2024-04-18 02:34 | XMS_ITS | Encounter Summary ---
Author Organization [facility] [place] [address] Care Team Providers Care Sample Collector Name Role Phone Irwin Gonsalez DO Primary Care Provider [phone] Reason for Visit * Reason Comments Medication Refill Encounter Details Date Type Department Care Team (Late st Contact Info) Description 06/30/2022 [place] [address] Ramonita Pandey MD [facility] [place] [address] Social History Tobacco Use Types Packs/Day Years [...] Type Associated Problems Recent Progress Patient-Stated? Author [facility] Medication Compliance and Understanding Patient Facing [...] on filedocumented in this encounter Care Teams Sample Collector Relationship Specialty Start Date End Date Irwin Gonsalez DO [address] [place] [address] PCP - General 05/01/11 03/14/24 documented as of this encounter
--- OUTSIDE RECORDS SUMMARY | 2024-04-18 02:34 | XMS_ITS | Encounter Summary ---
Author Organization Formerly [facility] [place] [address] Care Team Providers Care Electric Organ Assembler And Checker Name Role Phone Richard Tidwell APRN Primary Care Provider [phone] Reason for Visit * Auth/Cert (Routine) Specialty Diagnoses / Procedures Referred By Haresh t Referred To Contact Diagnoses Perianal Crohn's disease, with fistula perianal crohns disease w/fistula Procedures PRO SURG DIAGNOSTIC EXAM, ANORECTAL PRO REMOVAL ANAL FISTULA, COMPLEX/MULTI ANORECTAL EXAM, REQUIRING ANESTHESIA, DIAGNOSTIC (WRVU 1.8) SURGICAL TREATMENT OF ANAL FISTULA COMPLEX OR MULTIPLE W\WO SETON PLACEMENT (WRVU 6.39) Apurva Vivas MD [facility] [place] [address] [facility] Referral ID Status Reason Start Date Expiration Date Visits Re quested Visits Authorized [id number] 1 1 Encounter Details Date Type Department Care Team (Late st Contact Info) Description 03/17/2024 11:08 AM EST Anesthesia [place] [address] Skip Jama MD [facility] [place] [address] Etelvina Amin MD [facility] [place] [address] Anesthesia Record Procedure Summary Procedure Name Responsible Anesthesiologist Anesthesia Start Time Anesthesia Stop Time ANORECTAL EXAM, REQUIRING ANESTHESIA, DIAGNOSTIC (WRVU 1.8) (Anus) Skip Jama MD 03/17/24 1108 03/17/24 1213 Events Date Time Event Comment 03/17/2024 0956 1108 AN Verify 1108 Start 1108 An Start Data 1111 An Induction 1117 An Intubation 1122 Anesthesia Ready 1204 Extubation/LMA Out 1205 an stop data 1208 Recovery or ICU Handoff Millie ent care was transferred to the destination unit staff after review of the patient's medical history, current anesthetic/surgical status and plan, according to the Provider Handoff Checklist. 1213 Stop Meds Name Total fentaNYL 100 mcg propofoL 400 mg dexmedeTOMIDine 4 mcg/mL 40 mcg rocuronium 100 mg sugammadex 400 mg PHENYLephrine 160 mcg dexAMETHasone 8 mg ondansetron 8 mg lidocaine 2% 100 mg midazolam 2 mg ketorolac 15 mg lactated ringers infusion 600 mL * Agents Name O2 * Blood No blood administrations on file. Lines, Drains, and Airways Type Details Placement Removal NG/OG Tube 05/23/16; 0909; orog astric; 12 Fr; inserted into drain port of IGEL to low wall suction X 1 then to gravity drainage 05/23/16 0909 by Katya Wolff PEST CONTROL SPECIALIST Incision 03/17/24; 1138; perineum 5 1138 by Tim Dunn RN Open Drain 03/17/24; 1138; Vanita loco; (blue vessel loop x1) 03/17/24 1138 by Tim Dunn RN PIV 03/17/24; 0953; 20 g auge; no longer indicated; 03/17/24; 1324 03/17/24 0953 by Katerin Gonzales RN 03/17/24 1324 by Mary Lou RN ETT Mask Ventilation: Ea sy (1); ETT Type: Cuffed, Oral; ETT Size: 7.5 mm; Mac Blade: 4; Notes: Asleep, Pre-O2, Cricoid Pressure, Stylette; Attempts: 1; Laryngoscopy Grade: 2; ETT Placement Verified By: Auscultation, Capnometry, Visual; Secured at Teeth: 23 cm; Inserted by: MD Brennan; Removal Date: 03/17/24; Removal Time: 1204 03/17/24 1117 by Etelvina Amin MD 03/17/24 1204 by Etelvina Amin MD documented in this encounter Social History Tobacco Use Types Packs/Day Years Used Date Smoking Tobacco: Never Smokeless Tobacco: Never Alcohol Use Standard Drinks/Week Comments Yes 1 (1 standard drink = 0.6 oz pur e alcohol) DH IPV Inpatient Questions Answer Date Recorded Does Anyone [...] OR Notes * Anesthesia Postprocedure Evaluation - Skip Jama MD - 03/17/2024 12:25 PM EST Department of Anesthesiology Post-procedure Note Patient: Igor Woodruff Procedure Summary Date: 03/17/24 Room / Location: [address] MAIN OR Anesthesia Start: 1108 Anesthesia Stop: 1213 Procedures: ANORECTAL EXAM, REQUIRING ANESTHESIA, DIAGNOSTIC (WRVU 1.8) (Anus) SURGICAL TREATMENT OF ANAL FISTULA COMPLEX OR MULTIPLE W\WO SETON PLACEMENT (WRVU 6.39) (Anus) Diagnosis: (perianal crohns disease w/fistula) Surgeons: Apurva Vivas MD Responsible Provider: Miles Marcelino MD Anesthesia Type: general ASA Status: 3 All Anesthesia Providers: Anesthesiologist: Miles Marcelino MD Sky Diver: Etelvina Amin MD Vitals Value Taken Time BP 118/76 03/17/24 1215 Temp 36.2 ??C (97.2 ??F) 03/17/24 1209 Pulse 83 03/17/24 1225 Resp 15 03/17/24 1225 SpO2 99 % 03/17/24 1225 Pain Score Vitals shown include unfiled device data. Patient Location: PACU/[facility] Level of Consciousness: Conscious but Sleepy Pain Management: Satisfactory Analgesia PONV: None Cardiovascular Status: At Baseline and Hemodynamically Stable Respiratory Status: At Baseline, Supplemental O2 (NC or FM) and Stable Respiratory Status Postoperative Fluid Status: Intravascular EUvolemia Possible Anesthetic Complications: NONE apparent at time of evaluation Final Primary Anesthesia Type: General (The anesthetic type performed was the same as planned.) Comments: Etelvina Amin MD * Anesthesia Preprocedure Evaluation - Miles Marcelino MD - 03/16/2024 4:56 PM EST Pre-Anesthesia Evaluation for: Igor Woodruff a 49 y.o. male. Procedure(s): ANORECTAL EXAM, REQUIRING ANESTHESIA, DIAGNOSTIC (WRVU 1.8) SURGICAL TREATMENT OF ANAL FISTULA COMPLEX OR MULTIPLE W\WO SETON PLACEMENT (WRVU 6.39) Patient Active Problem List Diagnosis Date Noted ??? Crohn's ileitis 07/07/2010 ??? Abnormal liver function test 07/07/2010 ??? GERD (gastroesophageal reflux disease) 07/07/2010 Past Medical History: Diagnosis Date ??? ABNORMAL LIVER FUNCTION TEST 07/07/2010 ??? Crohn's ileitis 07/07/2010 ??? GERD (gastroesophageal reflux disease) 07/07/2010 Past Surgical History: Procedure Laterality Date ??? APPENDECTOMY 2000 ??? MENISCECTOMY 2003 arthroscopic, R knee ??? PRG FLUOROSCOPY EXAM UP TO 1 HR PHY OR OTH HLTH CARE PROV Left 05/02/2016 FLUOROSCOPY (WRVU 0.17) performed by Dougie Husain Jr., MD at [facility] ??? PRG FLUOROSCOPY EXAM UP TO 1 HR PHY OR OTH HLTH CARE PROV Left 05/23/2016 FLUROSCOPY:UP TO ONE HOUR (WRVU 0.17) performed by Dougie Husain Jr., MD at [facility] ??? PRO COLONOSCOPY, BIOPSY 05/01/2011 COLONOSCOPY FLEXIBLE, WITH BX performed by Ramoniat PANDEY at [facility] ENDOSCOPY ??? PRO COLONOSCOPY, BIOPSY N/A 05/23/2021 COLONOSCOPY FLEXIBLE, WITH BX (WRVU 3.66) performed by Ramonita Pandey MD at [facility] ENDOSCOPY ??? PRO COLONOSCOPY, DIAGNOSTIC 02/25/2013 COLONOSCOPY, DIAGNOSTIC performed by Ramonita Pandey MD at [facility] ENDOSCOPY ??? PRO COLONOSCOPY, DIAGNOSTIC N/A 02/09/2017 COLONOSCOPY, DIAGNOSTIC performed by Corky Hollingsworth MD at [facility] ENDOSCOPY ? ? PRO CYSTO W URETEROSCOPY &/OR PYELOSCOPY, DX Left 05/02/2016 CYSTOURETEROSCOPY, DIAGNOSTIC (WRVU 5.75) performed by Dougie Husain Jr., MD at [facility] ??? PRO CYSTO/URETEROSCOPY W/LITHOTRIPSY INC INDWELLING STENT INSERTION Left 05/23/2016 CYSTOURETEROSCOPY,DIAGNOSTIC,W/ LITHOTRIPSY INC. INSERTION OF INDWELLING URETERAL STENT (WRVU 8) performed by Dougie Husain Jr., MD at [facility] ??? PRO CYSTOSCOPY, INSERT URETERAL STENT Left 05/02/2016 CYSTO, STENT PLACEMENT (WRVU 2.82) performed by Dougie Husain Jr., MD at [facility] ??? PRO CYSTOSCOPY, REMV CALCULUS, SIMPLE Left 05/23/2016 CYSTO, REMOVAL OF STENT, FOREIGN BODY OR CALCULUS, SIMPLE (WRVU 2.81) performed by Dougie Husain Jr., MD at [facility] ??? PRO CYSTOURETHROSCOPY, URETER CATHETER Left 05/02/2016 CYSTO, RETROGRADE, URETEROPYELOGRAPHY (WRVU 2.37) performed by Dougie Husain Jr., MD at [facility] ??? PRO CYSTOURETHROSCOPY, URETER CATHETER Left 05/23/2016 CYSTO, RETROGRADE, URETEROPYELOGRAPHY (WRVU 2.37) performed by Dougie Husain Jr., MD at [facility] ??? PRO LAP, SURG, COLECTOMY, W/REMVL TERM ILEUM 10/29/2010 ??LAPAROSCOPIC ASSISTED COLECTOMY, PARTIAL, REM.TERMINAL ILEUM performed by TORITO MOHAN at [facility] MAIN OR ??? PRO PLACEMENT, SETON N/A 02/26/2016 ANAL SETON PLACEMENT (WRVU 3) performed by Apurva Vivas MD at [facility] MAIN OR ??? PRO SURG DIAGNOSTIC EXAM, ANORECTAL N/A 02/26/2016 ANORECTAL EXAM, REQUIRING ANESTHESIA, DIAGNOSTIC (WRVU 1.8) performed by Apurva Vivas MD at [facility] MAIN OR Social History Tobacco Use ??? Smoking status: Never ??? Smokeless tobacco: Never Substance Use Topics ??? Alcohol use: Yes Alcohol/week: 1.0 standard drink of alcohol Types: 1 Cans of beer per week Social History Substance and Sexual Activity Drug Use No No Known Allergies Medications: MAR and/or home medications have been reviewed. Physical Exam: Preprocedure Vitals Current as of 03/16/24 1656 No BP, pulse, respiration, SpO2, or temperature recorded. Height: Weight: BMI: IBW: Airway Assessment: Mallampati: II TM distance: >3 FB Neck ROM: full Cardiovascular Assessment: system normal Pulmonary Assessment: pulmonary exam normal Dental Assessment: - normal exam Misc Assessment: IV access: Peripheral line Other exam findings: Aox3 Last Filed Perioperative Cognitive Screening None Anesthesia Plan: ASA 3 general, with a(n) intravenous induction 49 y/o M with perianal fistula undergoing anorectal exam and treatment. PMHx: Crohns Disease (s/p ileocolic resection), GERD Anesthesia Hx: Prior easy mask and GA LMA igel 4, G1V with mac 4 and 7.5 ETT Plan: GA LMA/ETT. Patient seen and discussed with resident. Standard ASA monitors Risk and benefits discussed with patient and family members. Discussion regarding NOREEN and treatmentas well as PONV and pain management post procedure. Blood transfusions were discussed but unlikely to occur. The patient was informed of the risks, benefits and alternatives of anesthesia. These risks included, but were not limited to, post-operative nausea and/or vomiting, pain, sore throat, dental/lip trauma, and other rare but serious complications such as major organ damage, awareness, severe allergicreactions, position-related nerve injuries, and need blood transfusions. Patient understood; all questions were sought, answered and the patient agreed to proceed. Consent was signed and placed in chart. Region - Other Informed Consent: Anesthetic plan and risks discussed with patient. Use of blood products discussed with patient who. Plan discussed with resident and attending. Anesthesia Screening documented in this encounter Plan of Treatment [...] MAR Action Action Date Dose Rate Site dexAMETHasone (Decadron) injection Intravenous, PRN, Starting on Any 03/17/24 at 1127, Until Any 03/17/24 at 1214, Anesthesia Intra-op, Routine Given 03/17/2024 11:27 AM EST 8 mg dexmedeTOMIDine (Precedex) (4 mcg/mL) bolus injection (Anesthsia) Intravenous, PRN, Starting on Any 03/17/24 at 1111, Until Any 03/17/24 at 1214, Anesthesia Intra-op, Routine Given 03/17/2024 11:59 AM EST 8 mcg Given 03/17/2024 11:27 AM EST 12 mcg Given 03/17/2024 11:11 AM EST 20 mcg fentaNYL (pf) (50 mcg/mL) multi-dose injection Intravenous, PRN, Starting on Any 03/17/24 at 1111, Until Any 03/17/24 at 1214, Anesthesia Intra-op, Routine Given 03/17/2024 11:11 AM EST 100 mcg ketorolac (Toradol) (30 mg/mL) injection Intravenous, PRN, Starting on Any 03/17/24 at 1202, Until Any 03/17/24 at 1214, Anesthesia Intra-op, Routine Given 03/17/2024 12:02 PM EST 15 mg lactated ringers infusion 1,000 mL, at 100 mL/hr, Intravenous, CONTINUOUS, Starting on Any 03/17/24 at 1000, Until Any 03/17/24 at 1327, Day of Surgery (Day of Procedure) Restarted 03/17/2024 11:08 AM EST New Bag 03/17/2024 9:52 AM EST 1,000 mLs 100 mL/hr lidocaine (pf) (Xylocaine) (20 mg/mL) 2% injection Infiltration, PRN, Starting on Any 03/17/24 at 1111, Until Any 03/17/24 at 1214, Anesthesia Intra-op, Routine Given 03/17/2024 11:11 AM EST 100 mg midazolam (pf) (Versed) (1 mg/mL) multi-dose injection Intravenous, PRN, Starting on Any 03/17/24 at 1109, Until Any 03/17/24 at 1214, Anesthesia Intra-op, Routine Given 03/17/2024 11:09 AM EST 2 mg ondansetron (pf) (Zofran) (2 mg/mL) injection Intravenous, PRN, Starting on Any 03/17/24 at 1152, Until Any 03/17/24 at 1214, Anesthesia Intra-op, Routine Given 03/17/2024 11:52 AM EST 8 mg PHENYLephrine in NS (PF) (NARCISA-SYNEPHRINE) 0.8 mg/10 mL (80 mcg/mL) multi-dose injection Syringe Intravenous, PRN, Starting on Any 03/17/24 at 1135, Until Any 03/17/24 at 1214, Anesthesia Intra-op, Routine Given 03/17/2024 11:46 AM EST 80 mcg Given 03/17/2024 11:35 AM EST 80 mcg propofoL (Diprivan) 10 mg/mL bolus injection (Anesthesia) Intravenous, PRN, Starting on Any 03/17/24 at 1111, Until Any 03/17/24 at 1214, Anesthesia Intra-op Given 03/17/2024 11:11 AM EST 400 mg rocuronium (Zemuron) (10 mg/mL) multi-dose injection Intravenous, PRN, Starting on Any 03/17/24 at 1111, Until Any 03/17/24 at 1214, Anesthesia Intra-op, Routine Given 03/17/2024 11:11 AM EST 100 mg sugammadex (Bridion) 100 mg/mL injection Intravenous, PRN, Starting on Any 03/17/24 at 1201, Until Any 03/17/24 at 1214, Anesthesia Intra-op, Routine Given 03/17/2024 12:01 PM EST 400 mg documented in this encounter Care Teams Electric Organ Assembler And Checker Relationship Specialty Start Date End Date Richard Tidwell, AUDIT ANALYST [address] [place] [address] PCP - General Family Medicine 03/15/24 documented as of this encounter
--- OUTSIDE RECORDS SUMMARY | 2024-04-18 02:34 | XMS_ITS | Encounter Summary ---
[place] [address] Care Team Providers Care Roving Teller Name Role Phone Irwin Gonsalez DO Primary Care Provider Reason for Visit * Reason Comments Specialty Pharmacy Review Humira 40mg/0. 4ml Pen Encounter Details Date Type Department Care Team (Late st Contact Info) Description 06/30/2022 Specialty [place] [id number] Osmin Kebede, POLICYHOLDER INFORMATION CLERK Social History Tobacco Use Types Packs/Day Years [...] Kebede - 06/30/2022 11:59 PM EDT The [facility] has completed a benefits investigation for Igor Sherine Woodruff to review their eligibility to fill at [facility]. Per patient's medication list they are prescribed Humira and the medication is not able to be filled at the [facility]. At this time insurance mandates this medication must be filled through [facility]. documented in this encounter Plan [...] on filedocumented in this encounter Care Teams Roving Teller Relationship Specialty Start Date End Date Irwin Gonsalez DO [address] [place] [address] [address] [facility] [address] [place] [address] PCP - General 05/01/11 03/14/24 documented as of this encounter
--- OUTSIDE RECORDS SUMMARY | 2024-04-18 02:34 | XMS_ITS | Encounter Summary ---
Author Organization [facility] [place] [address] Care Team Providers Care Forming Roll Operator Name Role Phone Irwin Gonsalez DO Primary Care Provider [phone] Encounter Details Date Type Department Care Team [...] on filedocumented in this encounter Care Teams Forming Roll Operator Relationship Specialty Start Date End Date Irwin Gonsalez DO [address] [facility] [address] [place] [address] PCP - General 05/01/11 03/14/24 documented as of this encounter
--- OUTSIDE RECORDS SUMMARY | 2024-04-18 02:34 | XMS_ITS | Encounter Summary ---
Author Organization [facility] [place] [address] Care Team Providers Care Management Assistant Name Role Phone Irwin Gonsalez DO Primary Care Provider [phone] Encounter Details Date Type Department Care Team (Latest Contact Info) Description 02/08/2024 4:40 PM EST TH Visit (TeleHealth) [place] [phone] Ramonita Pandey MD [facility] [place] [address] Crohn's disease of ileum with other complication [...] Chaney MD - 02/08/2024 4:40 PM EST [facility] IBD PROGRAM ESTABLISHED PATIENT VISIT Patient Active [...] MRE 02/2019 - normal. Stopped AZA 03/2019 [place] 05/23/21 - Rutgeert's i1 - single small [...] skeptical that Humira will work for him senior living and wonder if just not reaching appropriate [...] Inflammatory Bowel Diseases Program [facility] Utility Clerkcoater slate and Medical Education [employer] [facility] documented in this encounter Miscellaneous Notes * [...] with other complication Expected: 05/31/2024, Expires: 11/30/2024 documented as of this encounter Goals Goal [...] complication documented in this encounter Care Teams Management Assistant Relationship Specialty Start Date End Date Irwin Gonsalez DO [address] [place] [address] PCP - General 05/01/11 03/14/24 documented as of this encounter
--- OUTSIDE RECORDS SUMMARY | 2024-04-18 02:34 | XMS_ITS | Encounter Summary ---
[place] [address] Care Team Providers Care Communications Engineering Technician Name Role Phone Irwin Gonsalez DO Primary Care Provider Encounter Details Date Type Department Care Team (Late st Contact Info) Description 05/06/2022 Specialty Pharmacy [place] [phone] Rhea Aldridge RPH Social History Tobacco Use [...] Management (CMM) Igor Woodruff [address] [facility] [address] Telephone Information: Home Phone [phone] Is the patient transferring services to a different Specialty Pharmacy or discontinuing the medication? Transferring Services Medication: Humira 40mg/0.4ml Reason for discontinuation or transfer: Insurance mandates patient fill with [facility] Approximate date of discontinuation or transfer: 04/21/2022 Patient's response to therapy: Stable Summary of services provided by [facility]: routine follow up consults, refill reminders, benefits investigation, prior authorizations, [facility], Located [facility] secondary market manager 06/10 Summary of on-going needs: ongoing monitoring of Humira therapy Referral for additional services (if applicable): n/a Is patient aware of referral? n/a Instructions provided to patient about discharge/transfer: yes - patient is aware of transfer Provider aware of discontinuation or transfer: yes Patient understands no changes to current drug regimen were made at the appointment and that [facility] isproviding recommendations (summary located at [...] track( 017 9:39 PM EDT) No Perri Sousa [facility] Note: Patient's specific desired [...] on filedocumented in this encounter Care Teams Communications Engineering Technician Relationship Specialty Start Date End Date Irwin Gonsalez DO [address] [place] [address] PCP - General 05/01/11 03/14/24 documented as of this encounter
--- OUTSIDE RECORDS SUMMARY | 2024-04-18 02:34 | XMS_ITS | Encounter Summary ---
Author Organization [facility] [place] [address] Care Team Providers Care Silicator Name Role Phone Irwin Gonsalez DO Primary Care Provider Encounter Details Date Type Department Care Team (Late st Contact Info) Description 11/27/2022 Orders [place] [address] Ramonita Pandey MD [facility] [place] [address] Crohn's disease of ileum with other complication; [...] EDT) No Perri Sousa, [facility] Note: Patient's specific [...] type documented in this encounter Care Teams Silicator Relationship Specialty Start Date End Date Irwin Gonsalez DO [address] [place] [address] PCP - General 05/01/11 03/14/24 documented as of this encounter
--- OUTSIDE RECORDS SUMMARY | 2024-04-18 02:34 | XMS_ITS | Encounter Summary ---
[place] [address] Care Team Providers Care Silver Wrapper Name Role Phone Irwin Gonsalez DO Primary Care Provider Reason for Visit * Reason Comments Medication Refill Encounter Details Date Type Department Care Team (Late st Contact Info) Description 04/29/2023 Refill [place] [address] Ramonita Pandey MD [facility] [place] [address] Crohn's disease of ileum with other complication [...] Type Associated Problems Recent Progress Patient-Stated? Author [facility] Medication Compliance and Understanding Patient Facing [...] complication documented in this encounter Care Teams Silver Wrapper Relationship Specialty Start Date End Date Irwin Gonsalez DO [address] [place] [address] PCP - General 05/01/11 03/14/24 documented as of this encounter
--- OUTSIDE RECORDS SUMMARY | 2024-04-18 02:34 | XMS_ITS | Encounter Summary ---
Author Organization [facility] [place] [address] Care Team Providers Care Realtime Court Reporter Name Role Phone Richard Tidwell APRN Primary Care Provider [phone] Reason for Visit * Auth/Cert (Routine) Specialty Diagnoses / Procedures Referred By Haresh powers Referred To Contact Diagnoses Perianal Crohn's disease, with fistula perianal crohns disease w/fistula Procedures PRO SURG DIAGNOSTIC EXAM, ANORECTAL PRO REMOVAL ANAL FISTULA, COMPLEX/MULTI ANORECTAL EXAM, REQUIRING ANESTHESIA, DIAGNOSTIC (WRVU 1.8) SURGICAL TREATMENT OF ANAL FISTULA COMPLEX OR MULTIPLE W\WO SETON PLACEMENT (WRVU 6.39) Apurva Vivas MD [facility] [place] [address] [facility] Referral ID Status Reason Start Date Expiration Date Visits Re quested Visits Authorized [id number] 1 1 Encounter Details Date Type Department Care Team (Late st Contact Info) Description 03/17/2024 11:15 AM EST - 03/17/2024 12:57 PM EST Surgery [place] [address] Apurva Vivas MD [facility] [place] [address] ANORECTAL EXAM, REQUIRING ANESTHESIA, DIAGNOSTIC (WRVU 1.8) [...] Sign Reading Time Taken Comments Blood Pressure 126/86 03/17/2024 12:45 PM EST Pulse 79 03/17/2024 12:45 PM EST Temperature 36.2 ??C (97.2 ??F) 03/17/2024 1 2:09 PM EST Respiratory Rate 16 03/17/2024 12:4 5 PM EST Oxygen Saturation 99% 03/17/2024 12: 45 PM EST Inhaled Oxygen Concentration - - Weight 112.5 kg (248 lb 1.6 oz) 03/17/2024 9:43 AM EST Height 182.9 cm (6') 03/17/2024 9:43 AM EST Body Mass Index 33.65 03/17/2024 9:43 AM EST documented in this encounter Discharge Instructions * Discharge Instructions* Mary Lou RN - 03/17/2024 12:34 PM EST Next dose of acetaminophen (tylenol) can be taken at 4:00 pm or later. Next dose of ibuprofen can be taken at 6:00 pm or later. POST ANESTHESIA INSTRUCTIONS Go home, rest, use cautions on stairs Change positions slowly Do not smoke if you are alone Diet light to regular as tolerated today. If nausea occurs start with clear liquids and progress slowly until back to your normal diet. No driving, operating machinery or alcoholic beverages and no important decisions for 24 hours. Monitor IV site for signs and symptoms of infection: increasing redness, swelling, foul drainage. If this occurs please contact M.D. Patients who have had endotracheal tubes (this tube, used by anesthesia department is passed down your throat after you are asleep, to ensure safe air passage during your operation). A sore throat is normal due to the tube. Cold liquids or soothing lozenges will help ease the discomfort. The generalized muscle aches are due to the medication given to you prior to endotracheal tube insertion. As the medication wears off, you may develop muscle soreness, which usually goes away in 12-24 hours. If you are uncomfortable and/or unable to urinate within 8 hours of discharge and it is before 5 pm, call your physician. If it is after 5 pm go to the closest emergency room or call the hospital jewelry drilling machine operator at [phone] and ask for the physician irrigationist covering for your physician. * Patient Instructions* Tia Saxena MD - 03/17/2024 12:02 PM EST DIVISION OF COLON & RECTAL SURGERY Anorectal Surgery Patient Post-operative Discharge Instructions Wound Care If there is a dressing, please leave the dressing intact today and remove it tomorrow morning. If you need to move your bowels, the dressing may be removed sooner. Expect some drainage - this may be residual pus, or may be a small amount of blood or mucus - this is normal / expected. It may last for a 2-3 weeks. Please use fluffy 4x4 gauze to absorb any drainage and keep your bottom dry. You may have some packing your wound that you should remove in the sitz bath tomorrow morning. Please use a sitz bath or shower 3 - 4X per day (starting tomorrow morning). Sitz bath instructions: Soak your buttocks in plain warm tapwater for 15 minutes 4X/day and after bowel movements. This is comforting and also increase blood flow to the area to aid in healing. You may sit on a pillow but do not sit on donut cushions as it spreads the buttocks. Pain medications A local anesthestic numbing block was performed during your procedure for postoperative pain control. Please take [id number]-hyonwvd pain medications for post-operative discomfort. Acetaminophen (Tylenol) 1000 mg by mouth every 6 hours. Ibuprofen (Motrin/Advil) 600 mg by mouth every 6 hours with food & plenty of liquids or Naproxen (Aleve) 500 mg twice daily. Take either Ibuprofen or Naproxen not both. You may alternate these medications every 3 hours; ex. Tylenol at 12pm, Ibuprofen at 3pm, Tylenol at 6pm, Ibuprofen at 9 pm. Avoid getting constipated Drink plenty of water and fluids (over 2 liters per day). Each morning please take a daily fiber supplement (such as Citrucel or BeneFiber), one heaping tablespoon in 8 oz. of water. (MiraLax may be recommended instead of fiber) If you do not have a bowel movement in 48 hours then take 30 cc of Milk of Magnesia every 12 hours until you have a bowel movement. If you do not have a bowel movement after 2 doses of Milk of Magnesia please call (see below). 4. When to call Fever > 101.5 F worsening pain active bleeding, passing blood clots difficulty/inability to pass urine (urinary retention) or stool (constipation) any other worrisome condition or question during regular work hours call the Surgery Clinic at after hours / nights / weekends / holidays: call and ask for the General Surgery Resident doctor On-Call. Follow-up. You will have a post-operative follow-up appointment with your Surgical Team scheduled, usually in 2 - 4 weeks. If you have any questions, please call . Division of Colon and Rectal Surgery, [place] [address] documented in this encounter Medications at Time [...] mg by mouth every morning (before breakfast). documented as of this encounter Progress Notes * Mary Lou RN - 03/17/2024 1:15 PM EST Pt awakened without difficulty, no complaint of pain or nausea. Tolerating sips of apple juice without difficulty. Declines food. Dressing remaining clean and dry at discharge. AVS reviewed with patient and , all questions answered, both verbalized understanding. Pt discharged to home in care of . documented in this encounter H&P Notes * Tia Saxena MD - 03/17/2024 10:51 AM EST Pre-Operative Interval H&P Planned Procedure: PRO SURG DIAGNOSTIC EXAM, ANORECTAL [77794] (ANORECTAL EXAM, REQUIRING ANESTHESIA, DIAGNOSTIC (WRVU 1.8)) PRO REMOVAL ANAL FISTULA, COMPLEX/MULTI [36756] (SURGICAL TREATMENT OF ANAL FISTULA COMPLEX OR MULTIPLE W\WO SETON PLACEMENT (WRVU 6.39)) Igor Woodruff is a 49 y.o. male with Crohn's ileitis and perianal disease who presents today to undergo scheduled procedure per above. He reports no interval change in his overall health since last seeing MARCOS Hartmann in clinic on 02/16 - please see clinic note for further details. VITALS: BP (!) 134/92 (BP Location (NBP): Right arm) Pulse 82 Temp 36.6 ??C (97.9 ??F) (Temporal) Resp 16 Ht 182.9 cm (6') Wt 112.5 kg (248 lb 1.6 oz) SpO2 96% BMI 33.65 kg/m?? EXAM: Gen: NC/AT, NAD, A&Ox3 CV: regular rate Pulm: unlabored respirations on RA Abd: soft, non-tender, non-distended Ext: WWP, moving all extremities spontaneously IMAGING: MRI Pelvis Soft Tissue (GI INTERIOR ASSEMBLIES INSTALLER) wwo Contrast 02/27/2024 Narrative EXAMINATION: MRI PELVIS SOFT TISSUE (GI INTERIOR ASSEMBLIES INSTALLER) WWO CONTRAST CLINICAL HISTORY: hx fistulizing perianal Crohn's disease - increased pain/swelling. prior seton placement right lateral K50.113, Crohn's disease of large intestine with fistula - K60.30, Anal fistula, unspecified TECHNIQUE: MRI of the pelvis prior to and following the intravenous administration of 23ml Dotarem. COMPARISON: MRI PELVIS SOFT TISSUE (GI INTERIOR ASSEMBLIES INSTALLER) WWO CONTRAST 01/21/2016 MR Enterography 02/25/2019 FINDINGS: [...] prostate. Normal seminal vesicles. Marrow signal: Normal. Impression Right intersphincteric fistula containing seton. New subcutaneous right gluteal abscess (3.1 cm) with connecting enhancing tract. Thank you for letting us participate in the care of this patient. If you are a health care provider and have any questions regarding this report, please contact the number below. For patients who have questions please contact the health care management specialist that requested your imaging first. Electronically signed by: Dwain Benitez MD, [facility] ([phone]), at 03/01/2024 10:44 AM After discussion of risks, benefits, alternatives, and natural history of the disease, patient is agreeable to proceeding with exam under anesthesia with seton placement, other procedures as indicated. All questions answered. Consent signed and in the chart.Proceed with planned procedure. Tia Saxena MD Resident, Colorectal Surgery 03/17/24 10:54 AM documented in this encounter Miscellaneous Notes * Brief Op Note - Tia Saxena MD - 03/17/2024 12:03 PM EST Brief Operative Note Patient Name: Igor Woodruff : [id number] MR#: [id number] Case Date: 03/17/2024 Surgeon: Surgeons and Role: * Apurva Vivas MD - Primary * Tia Saxena MD - Resident - Assisting Preoperative diagnosis: perianal crohns disease w/fistula Postoperative diagnosis: * No post-op diagnosis entered * Procedure(s) (LRB): ANORECTAL EXAM, REQUIRING ANESTHESIA, DIAGNOSTIC (WRVU 1.8) (N/A) SURGICAL TREATMENT OF ANAL FISTULA COMPLEX OR MULTIPLE W\WO SETON PLACEMENT (WRVU 6.39) (N/A) Anesthesia: General Findings: - posterior midline intersphincteric fistula identified, seton placed - prior abscess cavity incised in elliptical fashion - bilateral pudendal nerve blocks Complications: none Estimated Blood Loss: * No values recorded between 03/17/2024 11:33 AM and 03/17/2024 11:58 AM * Specimens removed during surgery: ID Type Source Tests Collected by Time Destination 1 : Vanita anal skin Tissue Fistula SURGICAL PATHOLOGY Apurva Vivas MD 03/17/2024 1143 Fluids: Intraprocedure Crystalloid Total Intake lactated ringers infusion 600.00 mL Total Intake 600 mL PRBCs: none (See Anesthesia Record/Report for Other Blood Products) Urine Output: (no urine output recorded) Drains: seton x1 Disposition: awakened from anesthesia, extubated and taken to the recovery room in a stable condition, having suffered no apparent untoward event. Condition: doing well without problems (Please see the Surgical Encounter Summary for any Implant and Specimen details pertinent to this patient.) Surgical Infection Prevention Bundle Used? N/A * Op Note - Apurva Vivas MD - 03/17/2024 11:33 AM EST [facility] [place] Operative Note Patient Name: Igor Woodruff : [id number] MR#: [id number] Case Date: 03/17/2024 Surgeon: Surgeons and Role: * Apurva Vivas MD - Primary * Tia Saxena MD - Resident - Assisting Preoperative diagnosis: perianal crohns disease w/fistula Postoperative diagnosis: * No post-op diagnosis entered * Procedure(s) (LRB): ANORECTAL EXAM, REQUIRING ANESTHESIA, DIAGNOSTIC (WRVU 1.8) (N/A) SURGICAL TREATMENT OF ANAL FISTULA COMPLEX OR MULTIPLE W\WO SETON PLACEMENT (WRVU 6.39) (N/A) Anesthesia: General Estimated Blood Loss: 2 mL Specimens removed during surgery: ID Type Source Tests Collected by Time Destination 1 : Vanita anal skin Tissue Fistula SURGICAL PATHOLOGY Apurva Vivas MD 03/17/2024 1143 Drains: * No LDAs found * Surgical Closure: NA Disposition: awakened from anesthesia, extubated and taken to the recovery room in a stable condition, having suffered no apparent untoward event. Condition: doing well without problems (Please see the Surgical Encounter Summary for any Implant and Specimen details pertinent to this patient.) HPI/Surgical Indications: Igor Woodruff is a 48 y.o. male with longstanding history of penetrating Crohn's ileocolitis and perianal disease, underwent ileocolic resection in 2010. Underwent seton placement with Dr. Apurva Vivas in 2015. Seton had fallen out in 2019 and patient was seen by Brent De Los Santos in September 2019 for intermittently symptomatic fistula, underwent seton placement in the clinic which he notes he did not tolerate well. He notes that this particular seton has [...] however, does have ongoing intermittent yellow/puslike discharge. MRI pelvis confirms intersphincteric fistula with associated abscess in the right posterior. He presents today for EUA, I&D, and seton placement. Procedure Description: Igor Woodruff was brought to the operating room. [facility] The patient was positioned in the prone jackknife position on the operating table over gel rolls. The genitalia were not under pressure. The buttocks were taped apart and the perineum was prepped with Hibiclens and sterilely draped. A surgical timeout was called confirming the patient and procedures to be performed. No antibiotics were indicated and the patient had SCDs forDVT prophylaxis. 40cc of 0.5% bupivacaine was injected as an anal block. We began the procedure with an external examination. There is a right posterior external opening with chronic scarring. There is a thin area of induration extending more lateral from the prior external opening. On digital rectal exam, there is mucosal irregularity in the posterior midline. No masses Anoscopy was performed with the [facility] retractor. Findings include internal opening, posterior midline. No proctitis. Otherwise normal distal rectal and anal canal mucosa. No other sites of fistulas or fissures noted. We passed a blunt tip fistula probe easily through the prior external opening in the right posterior to the posterior midline opening. A blue vessel loop was replaced in this tract and tied into place with 3 0-silk ties. Given concern for abscess on the MRI we interrogated the linear induration. This was separate from the external opening of the fistula. I cut down in the area of induration with the 15 blade scalpel. There was a cavity but no pus in this space. We did excise the skin edges to allow for drainage as I suspect that this will re accumulate fluid since it does not clearly communicate with the seton. Hemostasis was ensured. The buttock tapes were removed. Gauze and mesh underwear were placed as a dressing. The patient wasreturned to the supine position on the [facility]. He was awoken from general anesthesia and extubated in the operating room without difficulty. He was transferred to the recovery room in good condition. Surgical Infection Prevention Bundle Used? N/A Attestation: Case Date: 03/17/2024 I was present and I participated during the entire procedure (does not need to include opening and closing). Apurva Vivas MD 03/18/2024 documented in this encounter Plan of Treatment Not on file documented as of this encounter Goals Goal Patient Goal Type Associated Problems Recent Progress Patient-Stated? Author DH Home Medication Compliance and Understanding Patient Facing Action Plan On track( 017 9:39 PM EDT) No Perri Sousa, [facility] Note: Patient's specific [...] Date/Time Associated Diagnosis Comments SURGICAL PATHOLOGY Routine 03/17/2024 11 :43 AM EST Removal Anal Fistula, Complex/Multi (21522) Yes 03/17/2024 11:07 AM EST perianal crohns disease w/fistula Surg Diagnostic Exam, Anorectal (56517) Yes 03/17/2024 11:07 AM EST perianal crohns disease w/fistula documented in this encounter Results * Surgical Pathology (03/17/2024 11:43 AM EST) Case Report Surgical Pathology Report ? Case: [id number] ? Authorizing Provider: ??Apurva Vivas MD ? Collected: ? 03/17/2024 1143 ? Ordering Location: ? Main Operating Room [place] ?? Received: ?03/17/2024 1152 ? [facility] ([facility] ? Hospital ? Pathologist: ? Morelia Hills MD ? Specimen: ?Fistula, Vanita anal skin ? 03/24/2024 2:51 PM [facility] Final Diagnosis A. Fistula, Vanita anal skin Excision: Anal skin/squamous mucosa with parakeratosis, underlying epithelioid granulomatous histiocytic aggregates with giant cell reaction, and acute and chronic inflammation, consistent with fistula tract in the appropriate clinical setting. 03/24/2024 2:51 PM [facility] Addendum Task ID IHC/Special Stains Result A1-3 AFB Stain Negative A1-4 GMS Stain Negative A1-5 Gram Stain (AP) Negative 03/24/2024 2:51 PM [facility] Addendum electronically signed by Morelia Hills MD on 03/24/2024 at 2:51 PM Additional Studies Task ID IHC/Special Stains Result A1-2 CKAE1/3 Reviewed for diagnosis A2-2 CKAE1/3 Reviewed for diagnosis 03/24/2024 2:51 PM [facility] Disclaimer(s) Formalin-fixed, paraffin-embedded tissue sections are studied using the polymer technique with appropriate positive and negative controls. These IHC studies provide the pathologist with adjunctive diagnostic information. Antibody specificity has been verified by testing antibodies on a series of in-house tissues with known immunohistochemical performance characteristics. The clinical interpretation of any antibody positive staining or its absence is evaluated within the context of clinical presentation, morphology, histopathological criteria and other diagnostic tests. 03/24/2024 2:51 PM [facility] Clinical Information A. Fistula, Vanita anal skin *Other - as specified in Clinical Information 03/24/2024 2:51 PM [facility] Gross Description A. Fistula, Vanita anal skin. A - Labeled/Fixative: Perianal skin, fresh. Quantity/Size: Two, 1.0 x 1.0 x 0.7 cm, and 1.4 x 0.4 x 0.4 cm. Tissue Description: Nonoriented anguiano-white elliptical skin excisions, each demonstrating a central 0.1 cm diameter defect (? Punctum). A discrete, definitive fistula is not grossly identified. Sections/Processing: Bisected and entirely submitted in 2 cassettes labeled A1-A2. shb 03/24/2024 2:51 PM [facility] Result Note Routine 03/24/2024 2:51 PM [facility] Tissue FISTULA / Unknown 03/17/2024 11:43 AM EST 03/17/2024 11:52 AM EST Comment:Pre-op diagnosis: perianal crohns disease w/fistula Apurva Vivas MD PATHOLOGY/[place] [address] documented in this encounter Visit Diagnoses Not on filedocumented in this encounter Administered Medications Inactive Administered Medications - up to 3 most recent administrations Medication Order MAR Action Action Date Dose Rate Site acetaminophen (Tylenol) tablet 975 mg 975 mg, Oral, ONCE, 1 dose, On Any 03/17/24 at 1000, Administer with a SIP of water only. Maximum dose of acetaminophen is 4,000 mg from all sources in 24 hours., Day of Surgery (Day of Procedure), Routine Given 03/17/2024 9:51 AM EST 975 mg BUPivacaine (pf) (Marcaine) (5 mg/mL) 0.5% injection PRN, Starting on Any 03/17/24 at 1159, Until Any 03/17/24 at 1526, Intra-Operative (Intra-Procedure), Routine Given 03/17/2024 11:59 AM EST 30 mLs 19- Surgical Site fentaNYL (pf) (50 mcg/mL) multi-dose injection 12.5 mcg 12.5 mcg, Intravenous, EVERY 5 MIN PRN, Starting on Any 03/17/24 at 1204, Until Any 03/17/24 at 1327, Pain, Mild to moderate pain (1-5 out of 10), Hold for respiratory rate less than 10 per minute. Maximum dose 100 mcg over one hour, including OR administration. If ordered with HYDROmorphone, give HYDROmorphone first and use fentaNYL for breakthrough pain. Notify anesthesia team if the maximum of 100 mcg of fentaNYL AND 2 mg of HYDROmorphone has been administered and patient still complains of moderate to severe pain (6-10)., PACU Recovery, Routine fentaNYL (pf) (50 mcg/mL) multi-dose injection 25 mcg 25 mcg, Intravenous, EVERY 5 MIN PRN, Starting on Any 03/17/24 at 1204, Until Any 125 at 1327, Pain, Moderate to severe pain (6-10 out of 10), Hold for respiratory rate less than 10 per minute. Maximum dose 100 mcg over one hour, including OR administration. If ordered with HYDROmorphone, give HYDROmorphone first and use fentaNYL for breakthrough pain. Notify anesthesia team if the maximum of 100 mcg of fentaNYL AND 2 mg of HYDROmorphone has been administered and patient still complains of moderate to severe pain (6-10)., PACU Recovery, Routine HYDROmorphone (Dilaudid) (0.2 mg/1 mL) injection syringe 0.2 mg 0.2 mg, Intravenous, EVERY 10 MIN PRN, Starting on Any 03/17/24 at 1204, Until Any 25 at 1327, Pain, For Mild to Moderate Pain (1-5 out of 10), Hold for respiratory rate less than 10 per minute. Maximum dose 2 mg over one hour including administrations in the OR. If multiple pain medications are ordered, start with HYDROmorphone and use fentaNYL for breakthrough pain. Notify anesthesia team if the maximum of 100 mcg of fentaNYL AND 2 mg of HYDROmorphone has been administered and patient still complains of moderate to severe pain (6-10)., PACU Recovery, Routine HYDROmorphone (Dilaudid) (0.2 mg/1 mL) injection syringe 0.4 mg 0.4 mg, Intravenous, EVERY 10 MIN PRN, Starting on Any 03/17/24 at 1204, Until Any 03/17/24 at 1327, Pain, For Moderate to Severe Pain (6-10 out of 10), Hold for respiratory rate less than 10 per minute. Maximum dose 2 mg over one hour including administrations in the OR. If multiple pain medications are ordered, start with HYDROmorphone and use fentaNYL for breakthrough pain. Notify anesthesia team if the maximum of 100 mcg of fentaNYL AND 2 mg of HYDROmorphone has been administered and patient still complains of moderate to severe pain (6-10)., PACU Recovery, Routine lactated ringers infusion 1,000 mL, at 100 mL/hr, Intravenous, CONTINUOUS, Starting on Any 03/17/24 at 1000, Until Any 03/17/24 at 1327, Day of Surgery (Day of Procedure) Restarted 03/17/2024 11:08 AM EST New Bag 03/17/2024 9:52 AM EST 1,000 mLs 100 mL/hr lidocaine (Xylocaine) 1% (10 mg/mL) injection 3 mg 3 mg (0.3 mL), Subcutaneous, ONCE PRN, 1 dose, Starting on Any 03/17/24 at 0940, Until Any 03/17/24 at 1327, for discomfort with PIV insertion, Day of Surgery (Day of Procedure), Routine naloxone (Narcan) (0.4 mg/mL) injection 0.04 mg 0.04 mg, Intravenous, EVERY 5 MIN PRN, 3 doses, Starting on Any 03/17/24 at 1204, Until Any 03/17/24 at 1327, Opioid Reversal, for respiratory rate less than 6 or unresponsive., May repeat every 5 minutes to increase respiratory rate. DO NOT exceed 0.12 mg total dose. Notify anesthesia immediately if administered., PACU Recovery, Routine prochlorperazine (Compazine) (5 mg/mL) injection 5 mg 5 mg, Intravenous, EVERY 30 MIN PRN, 2 doses, Starting on Any 03/17/24 at 1204, Until Any 03/17/24 at 1327, Nausea, Vomiting, If multiple antiemetics ordered, use ondansetron first and if ineffective use prochlorperazine or haloperidoL second, PACU Recovery, Routine sodium chloride 0.9 % (flush) (BD PosiFlush Normal Saline 0.9) flush 5-20 mL 5-20 mL, Intravenous, EVERY 1 MIN PRN, Starting on Any 03/17/24 at 0940, Until Any 03/17/24 at 1327, flush, Flush pertains to all indwelling lines. Flush per protocol found in the job aid using the link provided on this medication record., Day of Surgery (Day of Procedure), Routine documented in this encounter Active and Recently Administered Medications Times are shown in EST. Scheduled Medication Order 03/15/2024 03/16/2024 03/17/2024 acetaminophen (Tylenol) tablet 975 mg (COMPLETED) 975 mg, Oral, ONCE, 1 dose, On Any 03/17/24 at 1000, Administer with a SIP of water only. Maximum dose of acetaminophen is 4,000 mg from all sources in 24 hours., Day of Surgery (Day of Procedure), Routine 0951 (Given - Provid er: Katerin Gonzales RN) Continuous Medication Order 03/15/2024 03/16/2024 03/17/2024 lactated ringers infusion 1,000 mL, at 100 mL/hr, Intravenous, CONTINUOUS, Starting on Any 03/17/24 at 1000, Until Any 25 at 1327, Day of Surgery (Day of Procedure) 0952 (New Bag - Prov ider: Katerin Gonzales RN)1107 (Paused - Provider: Etelvina Amin MD - Comment: Switch to gravity)1108 (Restarted - Provider: Etelvina Amin MD)1141 (Anesthesia Volume Adjustment - Provider: Etelvina Amin MD) PRN Medication Order 03/15/2024 03/16/2024 03/17/2024 BUPivacaine (pf) (Marcaine) (5 mg/mL) 0.5% injection (CANCELED) PRN, Starting on Any 03/17/24 at 1159, Until Any 03/17/24 at 1526, Intra-Operative (Intra-Procedure), Routine 1159 (Given - Provid er: Apurva Vivas MD) fentaNYL (pf) (50 mcg/mL) multi-dose injection 12.5 mcg(Linked Group 1) 12.5 mcg, Intravenous, EVERY 5 MIN PRN, Starting on Any 25 at 1204, Until Any 03/17/24 at 1327, Pain, Mild to moderate pain (1-5 out of 10), Hold for respiratory rate less than 10 per minute. Maximum dose 100 mcg over one hour, including OR administration. If ordered with HYDROmorphone, give HYDROmorphone first and use fentaNYL for breakthrough pain. Notify anesthesia team if the maximum of 100 mcg of fentaNYL AND 2 mg of HYDROmorphone has been administered and patient still complains of moderate to severe pain (6-10)., PACU Recovery, Routine fentaNYL (pf) (50 mcg/mL) multi-dose injection 25 mcg(Linked Group 1) 25 mcg, Intravenous, EVERY 5 MIN PRN, Starting on Any 125 at 1204, Until Any 125 at 1327, Pain, Moderate to severe pain (6-10 out of 10), Hold for respiratory rate less than 10 per minute. Maximum dose 100 mcg over one hour, including OR administration. If ordered with HYDROmorphone, give HYDROmorphone first and use fentaNYL for breakthrough pain. Notify anesthesia team if the maximum of 100 mcg of fentaNYL AND 2 mg of HYDROmorphone has been administered and patient still complains of moderate to severe pain (6-10)., PACU Recovery, Routine HYDROmorphone (Dilaudid) (0.2 mg/1 mL) injection syringe 0.2 mg(Linked Group 2) 0.2 mg, Intravenous, EVERY 10 MIN PRN, Starting on Any 25 at 1204, Until Any 125 at 1327, Pain, For Mild to Moderate Pain (1-5 out of 10), Hold for respiratory rate less than 10 per minute. Maximum dose 2 mg over one hour including administrations in the OR. If multiple pain medications are ordered, start with HYDROmorphone and use fentaNYL for breakthrough pain. Notify anesthesia team if the maximum of 100 mcg of fentaNYL AND 2 mg of HYDROmorphone has been administered and patient still complains of moderate to severe pain (6-10)., PACU Recovery, Routine HYDROmorphone (Dilaudid) (0.2 mg/1 mL) injection syringe 0.4 mg(Linked Group 2) 0.4 mg, Intravenous, EVERY 10 MIN PRN, Starting on Any 25 at 1204, Until Any 125 at 1327, Pain, For Moderate to Severe Pain (6-10 out of 10), Hold for respiratory rate less than 10 per minute. Maximum dose 2 mg over one hour including administrations in the OR. If multiple pain medications are ordered, start with HYDROmorphone and use fentaNYL for breakthrough pain. Notify anesthesia team if the maximum of 100 mcg of fentaNYL AND 2 mg of HYDROmorphone has been administered and patient still complains of moderate to severe pain (6-10)., PACU Recovery, Routine lidocaine (Xylocaine) 1% (10 mg/mL) injection 3 mg 3 mg (0.3 mL), Subcutaneous, ONCE PRN, 1 dose, Starting on Any 03/17/24 at 0940, Until Any 125 at 1327, for discomfort with PIV insertion, Day of Surgery (Day of Procedure), Routine naloxone (Narcan) (0.4 mg/mL) injection 0.04 mg 0.04 mg, Intravenous, EVERY 5 MIN PRN, 3 doses, Starting on Any 03/17/24 at 1204, Until Any 03/17/24 at 1327, Opioid Reversal, for respiratory rate less than 6 or unresponsive., May repeat every 5 minutes to increase respiratory rate. DO NOT exceed 0.12 mg total dose. Notify anesthesia immediately if administered., PACU Recovery, Routine prochlorperazine (Compazine) (5 mg/mL) injection 5 mg 5 mg, Intravenous, EVERY 30 MIN PRN, 2 doses, Starting on Any 03/17/24 at 1204, Until Any 03/17/24 at 1327, Nausea, Vomiting, If multiple antiemetics ordered, use ondansetron first and if ineffective use prochlorperazine or haloperidoL second, PACU Recovery, Routine sodium chloride 0.9 % (flush) (BD PosiFlush Normal Saline 0.9) flush 5-20 mL 5-20 mL, Intravenous, EVERY 1 MIN PRN, Starting on Any 03/17/24 at 0940, Until Any 03/17/24 at 1327, flush, Flush pertains to all indwelling lines. Flush per protocol found in the job aid using the link provided on this medication record., Day of Surgery (Day of Procedure), Routine Linked Groups Order Group 1: fentaNYL (pf) (50 mcg/mL) multi-dose injection 12.5 mcgJump to med 12.5 mcg, Intravenous, EVERY 5 MIN PRN, Starting on Any 03/17/24 at 1204, Until Any 03/17/24 at 1327, Pain, Mild to moderate pain (1-5 out of 10), Hold for respiratory rate less than 10 per minute. Maximum dose 100 mcg over one hour, including OR administration. If ordered with HYDROmorphone, give HYDROmorphone first and use fentaNYL for breakthrough pain. Notify anesthesia team if the maximum of 100 mcg of fentaNYL AND 2 mg of HYDROmorphone has been administered and patient still complains of moderate to severe pain (6-10)., PACU Recovery, Routine Or fentaNYL (pf) (50 mcg/mL) multi-dose injection 25 mcgJump to med 25 mcg, Intravenous, EVERY 5 MIN PRN, Starting on Any 03/17/24 at 1204, Until Any 03/17/24 at 1327, Pain, Moderate to severe pain (6-10 out of 10), Hold for respiratory rate less than 10 per minute. Maximum dose 100 mcg over one hour, including OR administration. If ordered with HYDROmorphone, give HYDROmorphone first and use fentaNYL for breakthrough pain. Notify anesthesia team if the maximum of 100 mcg of fentaNYL AND 2 mg of HYDROmorphone has been administered and patient still complains of moderate to severe pain (6-10)., PACU Recovery, Routine Group 2: HYDROmorphone (Dilaudid) (0.2 mg/1 mL) injection syringe 0.2 mgJump to med 0.2 mg, Intravenous, EVERY 10 MIN PRN, Starting on Any 03/17/24 at 1204, Until Any 03/17/24 at 1327, Pain, For Mild to Moderate Pain (1-5 out of 10), Hold for respiratory rate less than 10 per minute. Maximum dose 2 mg over one hour including administrations in the OR. If multiple pain medications are ordered, start with HYDROmorphone and use fentaNYL for breakthrough pain. Notify anesthesia team if the maximum of 100 mcg of fentaNYL AND 2 mg of HYDROmorphone has been administered and patient still complains of moderate to severe pain (6-10)., PACU Recovery, Routine Or HYDROmorphone (Dilaudid) (0.2 mg/1 mL) injection syringe 0.4 mgJump to med 0.4 mg, Intravenous, EVERY 10 MIN PRN, Starting on Any 03/17/24 at 1204, Until Any 1 at 1327, Pain, For Moderate to Severe Pain (6-10 out of 10), Hold for respiratory rate less than 10 per minute. Maximum dose 2 mg over one hour including administrations in the OR. If multiple pain medications are ordered, start with HYDROmorphone and use fentaNYL for breakthrough pain. Notify anesthesia team if the maximum of 100 mcg of fentaNYL AND 2 mg of HYDROmorphone has been administered and patient still complains of moderate to severe pain (6-10)., PACU Recovery, Routine documented in this encounter Care Teams Realtime Court Reporter Relationship Specialty Start Date End Date Richard Tidwell, TEXTILE MACHINE MAINTENANCE MECHANIC [address] [place] [address] PCP - General Family Medicine 03/15/24 documented as of this encounter
--- OUTSIDE RECORDS SUMMARY | 2024-04-18 02:34 | XMS_ITS | Encounter Summary ---
[place] [address] Care Team Providers Care Wood Filler Name Role Phone Irwin Gonsalez DO Primary Care Provider Reason for Visit * Reason Onset Date Comments Medication Refill 11/27/2022 Encounter Details Date Type Department Care Team (Late st Contact Info) Description 11/27/2022 [place] [address] Ramonita Pandey MD [facility] [place] [address] Crohn's disease of ileum with other complication [...] Associated Problems Recent Progress Patient-Stated? Author [facility] Medication Compliance and Understanding Patient Facing Action Plan On track( 017 9:39 PM EDT) No Perri Sousa, [facility] Note: Patient's specific desired goal: Igor [...] complication documented in this encounter Care Teams Wood Filler Relationship Specialty Start Date End Date Irwin Gonsalez DO [address] [place] [address] PCP - General 05/01/11 03/14/24 documented as of this encounter
--- OUTSIDE RECORDS SUMMARY | 2024-04-18 02:34 | XMS_ITS | Encounter Summary ---
Author Organization [facility] [place] [address] Care Team Providers Care Forge Shop Machine Repairer Name Role Phone Irwin Gonsalez DO [...] on filedocumented in this encounter Care Teams Forge Shop Machine Repairer Relationship Specialty Start Date End Date Irwin Gonsalez DO [address] [facility] [address] [place] [address] PCP - General 05/01/11 03/14/24 documented as of this encounter
--- OUTSIDE RECORDS SUMMARY | 2024-04-18 02:34 | XMS_ITS | Encounter Summary ---
Author Organization [facility] [place] [address] Care Team Providers Care Executive Cyber Leader Name Role Phone Irwin Gonsalez DO Primary Care Provider [phone] Encounter Details Date Type Department Care Team (Late st Contact Info) Description 03/01/2024 Telephone [place] [address] Bárbara Santoro PA [facility] [place] [address] Social History Tobacco Use Types Packs/Day Years [...] on filedocumented in this encounter Care Teams Executive Cyber Leader Relationship Specialty Start Date End Date Irwin Gonsalez DO [address] [place] [address] PCP - General 05/01/11 03/14/24 documented as of this encounter
--- OUTSIDE RECORDS SUMMARY | 2024-04-18 02:34 | XMS_ITS | Encounter Summary ---
[place] [address] Care Team Providers Care Rice Field Worker Name Role Phone Irwin Gonsalez DO Primary Care Provider Reason for Visit * Reason Comments Specialty Pharmacy Review Humira Encounter Details Date Type Department Care Team (Late st Contact Info) Description 12/08/2022 Specialty [place] [address] Osmin Kebede, TAPPER SUPERVISOR Social History Tobacco Use Types Packs/Day Years [...] Kebede - 12/08/2022 11:59 PM EDT The [facility] has completed a benefits investigation for Igor Woodruff to review their eligibility to fill at [facility]. Per patient's medication list they are prescribed Humira and the medication is not able to be filled at the [facility]. At this time insurance mandates this medication must be filled through [facility] documented in this encounter Plan of Treatment Not on file documented as of this encounter Goals Goal Patient Goal Type Associated Problems Recent Progress Patient-Stated? Author [facility] Medication Compliance and Understanding Patient Facing Action Plan On track( 017 9:39 PM EDT) No Perri Sousa, [facility] Note: Patient's specific desired [...] on filedocumented in this encounter Care Teams Rice Field Worker Relationship Specialty Start Date End Date Irwin Gonsalez DO [address] [place] [address] PCP - General 05/01/11 03/14/24 documented as of this encounter
--- OUTSIDE RECORDS SUMMARY | 2024-04-18 02:34 | XMS_ITS | Clinical Summary ---
Author Organization [facility] Address [facility] [address] Care Team Providers Care Healthcare Administrative Assistant Name Role Phone Richard Tidwell APRN Primary Care Provider [phone] Allergies No known active allergies Medications Medication [...] 100 mg by mouth daily. 10/22/2021 Active HumkevinCF, Pen 40 mg/0.4 mL Pen Injector KitIndications:Crohn's disease of ileum with other complication INJECT 1 PEN UNDER THE SKIN EVERY 7 DAYS 1.6 mL 5 12/10/2023 Active sertraline (Zoloft) 25 mg tablet Take 25 mg by mouth daily. Active Active Problems Problem Noted Date Diagnosed [...] MRE 02/2019 - normal. Stopped AZA 03/2019 Argos 05/23/21 - Rutgeert's i1 - single small [...] Encounters Date Type Department Care Team Description 03/25/2024 Telephone Gastroenterology at [place] [id number] Leila Mccallum 03/17/2024 11:15 AM EST - 03/17/2024 12:57 PM EST Surgery Main Operating Room [place] [phone] Apurva Vivas MD ANORECTAL EXAM, REQUIRING ANESTHESIA, DIAGNOSTIC (WRVU 1.8) 03/17/2024 11:08 AM EST Anesthesia Event Main Operating Room [place] [phone] Skip aJma MD Lupotsky, Autumn R, MD 03/17/2024 9:21 AM EST - 03/17/2024 1:26 PM EST Hospital Encounter Same Day Program at [place] [phone] Apurva Vivas MD Discharge Disposition: Home 03/03/2024 9:00 AM EST TH Visit (TeleHealth) Gastroenterology at [place] [phone] Nereyda Salgado, [place] Crohn's disease of ileum with other complication 03/02/2024 Specialty [place] [address] Thao Ruiz CPHT 03/02/2024 Telephone [place] [address] Kathleen Chaney MD 03/01/2024 Telephone General Surgery at [place] [phone] Bárbara Santoro PA 02/27/2024 10:18 AM EST - 02/27/2024 11:59 PM EST Hospital Encounter MRI at [place] [phone] Apurva Vivas MD Crohn's disease of perianal region with fistula Discharge Disposition: Home 02/27/2024 Travel 02/25/2024 Telephone [place] [address] Sabas Gonzales, RN 02/23/2024 Telephone [place] [address] Shannan Barnard RN 02/17/2024 12:00 PM EST Office [place] [address] Bárbara Santoro PA Crohn's disease of perianal region with fistula 02/17/2024 Travel 02/08/2024 4:40 PM EST TH Visit (TeleHealth) [place] [address] Ramonita Pandey MD Crohn's disease [...] drink = 0.6 oz pur e alcohol) [facility] Inpatient Questions Answer Date Recorded Does Anyone [...] Sign Reading Time Taken Comments Blood Pressure 101/73 03/17/2024 1:00 PM EST Pulse 79 03/17/2024 12:45 PM EST Temperature 36 ??C (96.8 ??F) 03/17/2024 1:15 PM EST Respiratory Rate 16 03/17/2024 1:15 PM EST Oxygen Saturation 97% 03/17/2024 1:15 PM EST Inhaled Oxygen Concentration - - Weight 112.5 kg (248 lb 1.6 oz) 03/17/2024 9:43 AM EST Height 182.9 cm (6') 03/17/2024 9:43 AM EST Body Mass Index 33.65 03/17/2024 9:43 AM EST Plan of Treatment Health Maintenance Due Date [...] of life Medical Devices Implanted Type Area Development Editor Device Identifier Shelf Expiration Date Model / Serial / Lot Stent,Contour [id number] ([id number]) - [id number] Implanted:Qty : 1 on 05/23/2016 by Dougie Husain Jr., MD at [facility] IMPLANTS Left: Ureter DO NOT USE [employer] - [id number] 01/02/2018 [facility]-724-R T1 / / [id number] Explanted Type Area Development Editor Device Identifier Shelf Expiration Date Model / Serial / Lot Stent,Uret,Uni v,Soft,8fr,24c m ([id number]) - [id number] Implanted:Qty: 1 on 05/02/2016 by Melisa Shay MD at [facility] Explanted:Qty: 1 on 05/23/2016 by Dougie Husain Jr., MD at [facility] IMPLANTS DO NOT USE [employer] - [id number] 06/03/2018 [facility]-824-RT 1 / / [id number] Procedures Procedure Name Priority Date/Time Associated Diagnosis Comments SURGICAL PATHOLOGY Routine 03/17/2024 11 :43 AM EST Removal Anal Fistula, Complex/Multi (47634) Yes 03/17/2024 11:07 AM EST perianal crohns disease w/fistula Surg Diagnostic Exam, Anorectal ([id number]) Yes 03/17/2024 11:07 AM EST perianal crohns disease w/fistula LAB SCAN 03/10/2024 12:00 AM EST MRI PELVIS SOFT TISSUE (GI SUPERVISOR COREMAKER) WWO CONTRAST Routine 02/27/2024 12:39 PM EST Crohn's disease of perianal region with fistula ORDS - PROVIDER CARE SCAN 02/23/2024 12:00 AM EST COLONOSCOPY Routine 05/23/2021 2:40 PM EST COMPREHENSIVE METABOLIC PANEL Routine 10/19/2017 11:47 AM EDT Crohn's disease of ileum with rectal bleeding from Last 3 Months or Most Recently Relevant to Health Maintenance Results * Surgical Pathology (03/17/2024 11:43 AM EST) Case Report Surgical Pathology Report ? Case: [id number] ? Authorizing Provider: ??Apurva Vivas, MD ? Collected: ? 03/17/2024 1143 ? Ordering Location: ? Main Operating Room [place] ?? Received: ?03/17/20241151 ? [facility] ? Hospital ? Pathologist: ? Morelia Hills, MD ? Specimen: ?Fistula, Vanita anal skin ? 03/24/2024 2:51 PM EST [facility] Final Diagnosis A. Fistula, Vanita anal skin Excision: Anal skin/squamous mucosa with parakeratosis, underlying epithelioid granulomatous histiocytic aggregates with giant cell reaction, and acute and chronic inflammation, consistent with fistula tract in the appropriate clinical setting. 03/24/2024 2:51 PM [facility] Addendum Task ID IHC/Special Stains Result A1-3 AFB Stain Negative A1-4 GMS Stain Negative A1-5 Gram Stain (AP) Negative 03/24/2024 2:51 PM [facility] Addendum electronically signed by Morelia Hills MD on 03/24/2024 at 2:51 PM Additional Studies Task ID IHC/Special Stains Result A1-2 CKAE1/3 Reviewed for diagnosis A2-2 CKAE1/3 Reviewed for diagnosis 03/24/2024 2:51 PM [facility] Disclaimer(s) Formalin-fixed, paraffin-embedded tissue sections are [...] and other diagnostic tests. 03/24/2024 2:51 PM [facility] Clinical Information A. Fistula, Vanita anal skin *Other - as specified in Clinical Information 03/24/2024 2:51 PM [facility] Gross Description A. Fistula, Vanita anal [...] cassettes labeled A1-A2. shb 03/24/2024 2:51 PM [facility] Result Note Routine 03/24/2024 2:51 PM EST [facility] Tissue FISTULA / Unknown 03/17/2024 11:43 AM EST 03/17/2024 11:52 AM EST Comment:Pre-op diagnosis: perianal crohns disease w/fistula Apurva Vivas MD PATHOLOGY/CYTOLOGY O [place] [facility] [place] [address] * Scan Doc: Lab (03/10/2024 12:00 AM EST) Narrative 03/10/2024 12:00 AM EST Ordered by an unspecified provider. Scanning Provider MEDIA MGR SCAN EXT O RDR/RSLT * MRI Pelvis Soft Tissue (GI SUPERVISOR COREMAKER) wwo Contrast (02/27/2024 12:39 PM EST) WORKSTATION ID [id number] RAD Anatomical Region Laterality Modality Pelvis Magnetic [...] who have questions please contact the health acute care surgeon that requested your imaging first. ? Electronically signed by: Dwain Benitez MD, [facility] ([phone]), at 03/01/2024 10:44 AM Narrative 03/01/2024 10:44 AM EST EXAMINATION: MRI PELVIS SOFT TISSUE (GI SUPERVISOR COREMAKER) WWO CONTRAST CLINICAL HISTORY: hx fistulizing perianal Crohn's disease - increased pain/swelling. prior seton placement right lateral K50.113, Crohn's disease of large intestine with fistula - K60.30, Anal fistula, unspecified TECHNIQUE: MRI of the pelvis prior to and following the intravenous administration of 23ml Dotarem. COMPARISON: MRI PELVIS SOFT TISSUE (GI SUPERVISOR COREMAKER) WWO CONTRAST 01/21/2016 MR Enterography 02/25/2019 FINDINGS: [...] 03/01/2024 EXAMINATION: MRI PELVIS SOFT TISSUE (GI SUPERVISOR COREMAKER) WWO CONTRAST CLINICAL HISTORY: hx fistulizing perianal Crohn's disease - increased pain/swelling. prior seton placement right lateral K50.113, Crohn's disease of large intestine with fistula - K60.30, Analfistula, unspecified TECHNIQUE: MRI of the pelvis prior to and following the intravenous administration of 23ml Dotarem. COMPARISON: MRI PELVIS SOFT TISSUE (GI SUPERVISOR COREMAKER) WWO CONTRAST 01/21/2016 MR Enterography 02/25/2019 FINDINGS: [...] patients who have questions please contactthe health acute care surgeon that requested your imaging first. Apurva Vivas MD IM MRI ORDERABLES * Scan Doc: Ords - Provider Care (02/23/2024 12:00 AM EST) Narrative 02/23/2024 12:00 AM EST Ordered by an unspecified provider. Scanning Provider MEDIA MGR SCAN EXT O RDR/RSLT * COLONOSCOPY (05/23/2021 2:40 PM EST) [facility] Signature COLONOSCOPY [facility] Endoscopy Procedure Date: 05/23/2021 2:40 PM ? Patient Name: Igor Woodruff ? Date of : 1975 ? Age: 46 ? Order #: [id number] ? Instrument Name: [id number] ? Procedure: ? Colonoscopy Patient Profile: ? This is a 46 year old male. This ? patient has ileal Crohn's disease ? with perianal involvement, is taking ? adalimumab and is experiencing mild ? symptoms. Providers: ? Angelo Pandey MD, Jania Shaw, ? Elmo Espinosa, Regional Retail Sales Manager Referring MD: ?Irwin Gonsalez, DO Medicines: ? Midazolam 5 [...] preparation was evaluated using ? the BBPS ([facility] Bowel Preparation ? Scale) with scores of: [...] noted. ? Apart from the previously described avvs-uo-bjmd ? widely patent ileocolonic anastomosis in the [...] EDT) Glucose 94 65 - 199 mg/dL [facility] Comment:Diabetes: >=200 mg/d L plus symptoms Blood Urea Nitrogen 15 10 - 20 mg/dL [facility] Creatinine 0.89 0.80 - 1.50 mg/dL [facility] Sodium 142 135 - 145 mmol/L [facility] Potassium 4.0 3.5 - 5.0 mmol/L [facility] Comment: Please note: ??Patients with WBC >100,000 may have falsely elevated Potassium levels. ??For accurate Potassium quantification in these patients send serum separator tube (gold top) for subsequent determinations. ??Contact the Clinical Chemistry Laboratory if there are any questions. Chloride 101 98 - 107 mmol/L [facility] Carbon Dioxide 27 22 - 31 mmol/L [facility] Anion Gap 14 5 - 15 mmol/L [facility] Calcium 9.8 8.5 - 10.5 mg/dL [facility] Protein, Total 7.4 6.1 - 8.0 gm/dL [facility] Albumin 4.5 3.2 - 5.2 gm/dL [facility] Aspartate Aminotransferase 31 0 - 39 unit/L [facility] Alanine Aminotransferase 43 0 - 55 unit/L [facility] Alkaline Phosphatase 59 40 - 120 unit/L [facility] Bilirubin, Total 1.5(H) 0.2 - 1.3 mg/dL [facility] Est Glomerular Filtration Rate 105 >=60 mL/min/1. 73 m?? [facility] Comment: The eGFR was calculated using the CKD-EPI equation. As with all creatinine based estimates of kidney function, eGFR values calculated with the CKD-EPI equation are not accurate in patients with acute kidney failure, extremes of body mass or the acutely ill. [email or web address]/[email or web address] eGFR 122 >=60 mL/min/1. 73 m?? [facility] Comment: The eGFR was calculated using the CKD-EPI equation. As with all creatinine based estimates of kidney function, eGFR values calculated with the CKD-EPI equation are not accurate in patients with acute kidney failure, extremes of body mass or the acutely ill. [email or web address] Blood specimen (specimen) 10/19/2017 11:47 AM EDT 10/19/2017 11:52 AM EDT Narrative Resulting Agency Comment Spec In Lab L Timothy Pandey MD CHEMISTRY ORDERABLES [facility] [place] [address] from Last 3 Months or Most Recently Relevant to Health Maintenance Advance Directives * Full Code (Latest Code Status on File) Date Activated Date Inactivated Comments 03/17/2024 12:02 PM Question Answer Comments Does patient have capacity to make decision: Yes * Full Code Date Activated Date Inactivated Comments 02/26/2016 8:15 [...] is based on Patients wishes. Care Teams Healthcare Administrative Assistant Relationship Specialty Start Date End Date Richard Tidwell APRN [address] [place] [address] PCP - General Family Medicine 03/15/24
--- OUTSIDE RECORDS SUMMARY | 2024-04-18 02:34 | XMS_ITS | Encounter Summary ---
[place] [address] Care Team Providers Care Gravel Weigher Name Role Phone Irwin Gonsalez DO Primary Care Provider [phone] Encounter Details Date Type Department Care Team (Late st Contact Info) Description 03/02/2024 Specialty [place] [phone] Thao Ruiz, [facility] Social History Tobacco Use Types [...] Associated Problems Recent Progress Patient-Stated? Author [facility] Medication Compliance and Understanding Patient Facing Action Plan On track( 017 9:39 PM EDT) No Perri Sousa, [facility] Note: Patient's specific desired goal: [...] on filedocumented in this encounter Care Teams Gravel Weigher Relationship Specialty Start Date End Date Irwin Gonsalez DO [address] [place] [address] PCP - General 05/01/11 03/14/24 documented as of this encounter
--- OUTSIDE RECORDS SUMMARY | 2024-04-18 02:34 | XMS_ITS | Encounter Summary ---
[place] [address] Care Team Providers Care Install And Repair Technician Name Role Phone Irwin Gonsalez DO Primary Care Provider [phone] Reason for Visit * Reason Comments Prior Authorization Humira Pen 40mg/0.4m L PNKT Encounter Details Date Type Department Care Team (Late st Contact Info) Description 11/28/2022 Specialty [place] [address] Marielle Colbert Social History Tobacco [...] : 1975 Patient Address: [address] [facility] [address] Phone: [phone] (home) Medication Name: HUMIRA(CF) PEN 40 MG/0.4 ML SUBCUTANEOUS KIT Medication ID: [id number] Patient Location: [facility] GASTRO 4L Patient Location Comment: Medication Strength Frequency Requested: inject 40mg subcutaneously once every 7 days. Qty/Day Supply: 07/11 New Start: Renewal Diagnosis & ICD-10 Code: Crohn's Disease K50.018 Subscriber Insurance: Isaac [facility] Subscriber Insurance Comment: - Fax: Physician: Ramonita MATAMOROS Physician Comment : PA Status: PA on File Insurance mandated Pharmacy: [facility] Fillable at [facility] Specialty Pharmacy: No Insurance requirements/notes: PA on file for weekly Humira until 05/24/2023. Copay: N/A - unable to determine due to insurance mandate Copay assistance: Copay assistance comment: Pharmacy staff will be reaching out to the patient to inform them of their medication[facility]. If applicable, a pharmacist will speak with the patient to offer our specialty pharmacy services and to arrange delivery of their medication. Marielle Colbert 11/28/22 10:38 AM documented in this encounter Plan of Treatment Not on file documented as of this encounter Goals Goal Patient Goal Type Associated Problems Recent Progress Patient-Stated? Author [facility] Medication Compliance and Understanding Patient Facing Action Plan On track( 017 9:39 PM EDT) No Perri Sousa [facility] Note: Patient's specific [...] on filedocumented in this encounter Care Teams Install And Repair Technician Relationship Specialty Start Date End Date Irwin Gonsalez DO [address] [place] [address] PCP - General 05/01/11 03/14/24 documented as of this encounter
--- OUTSIDE RECORDS SUMMARY | 2024-04-18 02:34 | XMS_ITS | Encounter Summary ---
[place] [address] Care Team Providers Care Supervisor Tank House Name Role Phone Irwin Gonsalez DO Primary Care Provider Encounter Details Date Type Department Care Team (Late st Contact Info) Description 09/10/2023 Telephone [place] [phone] Kiersten Rodriges Social History Tobacco Use Types [...] study of Insomnia treatment in Crohn's disease Radiologic Technologist Mammogram (PI): Leda Reyes, PhD Study Number: [id number] Objective of visit: Kiersten Macias, research coordinator, left a voice message for Igor Woodruff over the phone regarding protocol Study [id number]. I informed the patient I was calling [...] filedocumented in this encounter Care Teams Supervisor Tank House Relationship Specialty Start Date End Date Irwin Gonsalez DO [address] [place] [address] PCP - General 05/01/11 03/14/24 documented as of this encounter
--- OUTSIDE RECORDS SUMMARY | 2024-04-18 02:34 | XMS_ITS | Encounter Summary ---
Author Organization [facility] [place] [address] Care Team Providers Care Critical Care Physician Assistant Name Role Phone Irwin Gonsalez DO Primary Care Provider [phone] Reason for Visit * Reason Onset Date Comments Appointment 04/21/2023 MRI Encounter Details Date Type Department Care Team (Late st Contact Info) Description 04/21/2023 Telephone [place] [address] Torres Kamara, RN Appointment (MRI) Social History [...] mail message left asking pt to call [phone] to schedulean appointment. documented in this encounter [...] on filedocumented in this encounter Care Teams Critical Care Physician Assistant Relationship Specialty Start Date End Date Irwin Gonsalez DO [address] [place] [address] PCP - General 05/01/11 03/14/24 documented as of this encounter
--- OUTSIDE RECORDS SUMMARY | 2024-04-18 02:34 | XMS_ITS | Encounter Summary ---
Author Organization [facility] [place] [address] Care Team Providers Care Medical Staff Assistant Name Role Phone Irwin Gonsalez DO Primary Care Provider [phone] Encounter Details Date Type Department Care Team (Late st Contact Info) Description 12/10/2023 Orders [place] [address] Ramonita Pandey MD [facility] [place] [address] Crohn's disease of ileum with other complication [...] as of this encounter Plan of Treatment Scheduled Orders [...] other complication Expected: 12/10/2023 (Approximate), Expires: 12/09/2024 documented as of this encounter Goals Goal Patient Goal Type Associated Problems Recent Progress Patient-Stated? Author [facility] Medication Compliance and Understanding Patient Facing Action Plan On track( 017 9:39 PM EDT) Perri Hernandez, [facility] Note: Patient's specific [...] complication documented in this encounter Care Teams Medical Staff Assistant Relationship Specialty Start Date End Date Irwin Gonsalez DO [address] [place] [address] PCP - General 05/01/11 03/14/24 documented as of this encounter
--- OUTSIDE RECORDS SUMMARY | 2024-04-18 02:34 | XMS_ITS | Encounter Summary ---
Author Organization [facility] [place] [address] Care Team Providers Care Material Disposition Inspector Name Role Phone Irwin Gonsalez DO Primary Care Provider [phone] Encounter Details Date Type Department Care Team (Latest Contact Info) Description 12/08/2022 4:30 PM EDT TH Visit (TeleHealth) [place] [phone] Ramonita Pandey MD [facility] [place] [address] Crohn's disease of ileum with other complication [...] MRE 02/2019 - normal. Stopped AZA 03/2019 [place] 05/23/21 - Rutgeert's i1 - single small [...] get labs drawn on December 21 at [facility]. Discussed obtaining an MR enterography to restage [...] 6 months The patient was located in [place] at the time of their visit. TIME SPENT Time spent during encounter with patient including counselin minutes An additional 10 minutes were spent before and after the visit on this same day in preparation for the appointment, ordering tests and/or prescriptions, communicating with referring providers and completing documentation Approximate total time devoted to this single encounter: 25 L. Timothy Pandey MD [employer] contract analyst Co-Director, [facility] Section of [place]astroenterology [place] [address] documented in this encounter Plan of Treatment [...] complication documented in this encounter Care Teams Material Disposition Inspector Relationship Specialty Start Date End Date Irwin Gonsalez DO [address] [place] [address] PCP - General 05/01/11 03/14/24 documented as of this encounter
--- OUTSIDE RECORDS SUMMARY | 2024-04-18 02:34 | XMS_ITS | Encounter Summary ---
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 Procedures MRI Pelvis Soft Tissue ([facility]) wwo Contrast Bárbara Santoro PA [facility] [place] [address] [place] [address] Referral ID Status Reason Start Date Expiration Date V isits Requested Visits Authorized [id number] Closed Specialty Service Requested 02/17/2024 08/17/2025 1 1 Reason for Visit * Reason Comments Follow-up Encounter Details Date Type Department Care Team (Late st Contact Info) Description 02/17/2024 12:00 PM EST Office [place] [address] Bárbara Santoro PA [facility] [place] [address] (work) Crohn's disease of perianal [...] Division of Colon and Rectal Surgery ~ [facility] HPI: Igor Woodruff is a pleasant 48 [...] MRE 02/2019 - normal. Stopped AZA 03/2019 [place] 05/23/21 - Rutgeert's i1 - single small [...] stenosis noted. Apart from the previously described [id number] widely patent ileocolonic anastomosis in the ascending [...] his fistulous tracts. He does live in [place], however, is willing to drive to [facility] for MRI to be completed here. I [...] Vivas Procedure: EUA with seton placement CPT: 29563; 35661 OR date: tbd Estimated LOS: SDS Operative time: 1 hr Position: prone Location: Main OR or [facility] Bowel prep: None Consent: Signed Bárbara Santoro PA-C [facility] Associate Instructor of Surgery Division of Colon and Rectal Surgery [facility] Pager: [phone] 02/17/24 3:43 PM documented in this encounter [...] Results * MRI Pelvis Soft Tissue ([facility]) wwo Contrast (02/27/2024 12:39 PM EST) WORKSTATION ID [id number] RAD Anatomical Region Laterality Modality Pelvis Magnetic [...] who have questions please contact the health healthcare network consultant that requested your imaging first. ? Electronically signed by: Dwain Benitez MD, [facility] ([phone]), at 03/01/2024 10:44 AM Narrative 03/01/2024 10:44 AM EST EXAMINATION: MRI PELVIS SOFT TISSUE ([facility]) WWO CONTRAST CLINICAL HISTORY: hx fistulizing perianal Crohn's disease - increased pain/swelling. prior seton placement right lateral K50.113, Crohn's disease of large intestine with fistula - K60.30, Anal fistula, unspecified TECHNIQUE: MRI of the pelvis prior to and following the intravenous administration of 23ml Dotarem. COMPARISON: MRI PELVIS SOFT TISSUE ([facility]) WWO CONTRAST 01/21/2016 MR Enterography 02/25/2019 FINDINGS: [...] 03/01/2024 EXAMINATION: MRI PELVIS SOFT TISSUE ([facility]) WWO CONTRAST CLINICAL HISTORY: hx fistulizing perianal Crohn's disease - increased pain/swelling. prior seton placement right lateral K50.113, Crohn's disease of large intestine with fistula - K60.30, Analfistula, unspecified TECHNIQUE: MRI of the pelvis prior to and following the intravenous administration of 23ml Dotarem. COMPARISON: MRI PELVIS SOFT TISSUE ([facility]) WWO CONTRAST 01/21/2016 MR Enterography 02/25/2019 FINDINGS: [...] patients who have questions please contactthe health healthcare network consultant that requested your imaging first. Electronically signed by: Dwain Benitez MD, [facility]([phone]), at 03/01/2024 10:44 AM Apurva Vivas MD IMG MRI ORDERABLES documented in this encounter Visit Diagnoses Diagnosis Crohn's disease of perianal region with fistula Crohn's disease of perianal region with fistula documented in this encounter Care Teams Real Estate Closer Relationship Specialty Start Date End Date Irwin Gonsalez DO [address] [place] [address] PCP - General 05/01/11 03/14/24 documented as of this encounter
--- OUTSIDE RECORDS SUMMARY | 2024-04-18 02:34 | XMS_ITS | Encounter Summary ---
[place] [address] Care Team Providers Care Sprinkler Repair Technician Name Role Phone Irwin Gonsalez DO Primary Care Provider Encounter Details Date Type Department Care Team (Late st Contact Info) Description 12/11/2023 Specialty [place] [address] Liv Alba CPHT Social History Tobacco Use [...] Problems Recent Progress Patient-Stated? Author [facility] Medication Compliance and Understanding Patient Facing [...] on filedocumented in this encounter Care Teams Sprinkler Repair Technician Relationship Specialty Start Date End Date Irwin Gonsalez DO [address] [place] [address] PCP - General 05/01/11 03/14/24 documented as of this encounter
--- OUTSIDE RECORDS SUMMARY | 2024-04-18 02:34 | XMS_ITS | Encounter Summary ---
[place] [address] Care Team Providers Care Truck Driver Teamster Name Role Phone Irwin Gonsalez DO Primary Care Provider [phone] Reason for Visit * Reason Comments Prior Authorization Humira PEN 40mg/0.4m l PNKT Encounter Details Date Type Department Care Team (Late st Contact Info) Description 07/01/2022 Specialty [place] [address] Thao Sheppard, MORE Social History Tobacco Use [...] : 1975 Patient Address: [address] [facility] [address] Phone: [phone] (home) Medication Name: ADALIMUMAB 40 MG/0.4 ML SUBCUTANEOUS PEN KIT Medication ID: [id number] Patient Location: [facility] GASTRO 4L Patient Location Comment: Medication Strength Frequency Requested: Humira PEN 40mg/0.4ml PNKT, Inject 0.4ml (40mg) subcutaneously once every 7 days. Qty/Day Supply: 07/11 New Start: Renewal Diagnosis & ICD-10 Code: K50.018 Crohn's disease of ileum with other complication Subscriber Insurance: Subscriber Insurance Comment: Isaac MOROCHO ([facility]) Phone: [phone] Fax: Physician: Ramonita MATAMOROS Physician Comment : PA Status: PA on File [facility] Specialty Pharmacy: NO Insurance requirements/notes: PA on file for Humira PEN 40mg/0.4ml PNKT, qty 07/11 through 05/01/2023. REF# [id number]. None Copay: TBD Copay assistance: Copay assistance comment: Pharmacy staff will be reaching out to the patient to inform them of [facility]. If applicable, a pharmacist will [...] on filedocumented in this encounter Care Teams Truck Driver Teamster Relationship Specialty Start Date End Date Irwin Gonsalez DO [address] [place] [address] [address] [facility] [address] [place] [address] PCP - General 05/01/11 03/14/24 documented as of this encounter
--- OUTSIDE RECORDS SUMMARY | 2024-04-18 02:34 | XMS_ITS | Encounter Summary ---
[place] [address] Care Team Providers Care Profile Saw Setup Operator Name Role Phone Irwin Gonsalez DO Primary Care Provider [phone] Reason for Visit * Reason Comments Prior Authorization Humira 40mg/0.4mL PN KT Encounter Details Date Type Department Care Team (Late st Contact Info) Description 11/20/2022 Specialty [place] [address] Zainab Herrmann, [facility] Social History Tobacco Use Types [...] Patient : 1975 Patient Address: [address] [facility] [address] Phone: [phone] (home) Medication Name: HUMIRA(CF) PEN 40 MG/0.4 ML SUBCUTANEOUS KIT Medication ID: [id number] Subscriber Insurance: Unable to find Subscriber Insurance Comment: Isaac BAILEE ([facility]) Fax: Physician: Ramonita MATAMOROS Physician Comment: Sent Via: Telephone Orellana: Ref/Case/PA#: [id number] Medication Strength Frequency Requested: Humira 40mg/0.4mL, INJECT 1 PEN UNDER THE SKIN EVERY 7 DAYS. Qty/Day Supply: 07/11 New Start: Renewal Diagnosis & ICD-10 Code: K50.018 Crohn's disease of ileum with other complication Patient Notified: No Submission Notes: Shay Herrmann 11/20/22 5:55 PM * Marielle Colbert - 11/20/2022 5:37 PM EDT [facility], Prior Authorization Approval Medication Name: HUMIRA(CF) PEN 40 MG/0.4 ML SUBCUTANEOUS KIT Medication ID: [id number] Approval Dates: 11/25/2022 to 05/24/2023 Insurance requirements/notes: - Must fill with [facility]. Other Notes: None Case/Reference #: [id number] Approval notification Received via: Telephone Copay: N/A - unable to determine due to insurance mandate Copay assistance: Copay Notes: Insurance mandated Pharmacy: TBD Fillable at [facility] Specialty Pharmacy: No Patient Notified: No Pharmacy staff will be reaching out to the patient to inform them of [facility]. If applicable, a pharmacist will speak [...] on filedocumented in this encounter Care Teams Profile Saw Setup Operator Relationship Specialty Start Date End Date Irwin Gonsalez DO [address] [place] [address] [address] [email or web address] [address] [place] [address] PCP - General 05/01/11 03/14/24 documented as of this encounter
--- OUTSIDE RECORDS SUMMARY | 2024-04-18 02:34 | XMS_ITS | Encounter Summary ---
Author Organization [facility] [place] [address] Care Team Providers Care Kettleman Name Role Phone Irwin Gonsalez DO Primary Care Provider [phone] Encounter Details Date Type Department Care Team [...] on filedocumented in this encounter Care Teams Kettleman Relationship Specialty Start Date End Date Irwin Gonsalez DO [address] [facility] [address] [place] [address] PCP - General 05/01/11 03/14/24 documented as of this encounter
--- OUTSIDE RECORDS SUMMARY | 2024-04-18 02:34 | XMS_ITS | Encounter Summary ---
Author Organization [facility] Address [facility] [place] [address] Care Team Providers Care Roping Tender Name Role Phone Irwin Gonsalez DO Primary Care Provider Encounter Details Date Type Department Care Team (Late st Contact Info) Description 04/21/2022 [place] [address] Ramonita Pandey MD [facility] [place] [address] Social History Tobacco Use Types Packs/Day Years [...] Type Associated Problems Recent Progress Patient-Stated? Author [facility] Medication Compliance and Understanding Patient Facing Action Plan On track( 017 9:39 PM EDT) No Perri Sousa, [facility] Note: Patient's specific desired goal: Igor [...] on filedocumented in this encounter Care Teams Roping Tender Relationship Specialty Start Date End Date Irwin Gonsalez DO [address] [place] [address] [address] [place] [address] PCP - General 05/01/11 03/14/24 documented as of this encounter
--- OUTSIDE RECORDS SUMMARY | 2024-04-18 02:34 | XMS_ITS | Encounter Summary ---
[facility] [place] [address] Care Team Providers Care Veterinary Toxicologist Name Role Phone Richard Tidwell APRN Primary Care Provider [phone] Reason for Visit * Auth/Cert (Routine) Specialty Diagnoses / Procedures Referred By Haresh powers Referred To Contact Diagnoses Perianal Crohn's disease, with fistula perianal crohns disease w/fistula Procedures PRO SURG DIAGNOSTIC EXAM, ANORECTAL PRO REMOVAL ANAL FISTULA, COMPLEX/MULTI ANORECTAL EXAM, REQUIRING ANESTHESIA, DIAGNOSTIC (WRVU 1.8) SURGICAL TREATMENT OF ANAL FISTULA COMPLEX OR MULTIPLE W\WO SETON PLACEMENT (WRVU 6.39) Apurva Vivas MD [facility] [place] [address] [facility] Referral ID Status Reason Start Date Expiration Date Visits Re quested Visits Authorized [id number] 1 1 Encounter Details Date Type Department Care Team (Latest Contact Info) Description 03/17/2024 9:21 AM EST - 03/17/2024 1:26 PM [facility] Hospital Encounter [place] [address] Apurva Vivas MD [facility] [place] [address] Discharge Disposition: Home Social History Tobacco Use [...] closest emergency room or call the hospital escalator operator at [phone] and ask for the physician transition lead covering for your physician. * Patient Instructions* [...] procedure for postoperative pain control. Please take [id number] pain medications for post-operative discomfort. Acetaminophen (Tylenol) [...] . Division of Colon and Rectal Surgery, [place] [address] documented in this encounter Medications at Time [...] Planned Procedure: PRO SURG DIAGNOSTIC EXAM, ANORECTAL [42146] (ANORECTAL EXAM, REQUIRING ANESTHESIA, DIAGNOSTIC (WRVU 1.8)) PRO REMOVAL ANAL FISTULA, COMPLEX/MULTI [[id number]] (SURGICAL TREATMENT OF ANAL FISTULA COMPLEX OR [...] spontaneously IMAGING: MRI Pelvis Soft Tissue (GI RACING MANAGER) wwo Contrast 02/27/2024 Narrative EXAMINATION: MRI PELVIS SOFT TISSUE (GI RACING MANAGER) WWO CONTRAST CLINICAL HISTORY: hx fistulizing perianal Crohn's disease - increased pain/swelling. prior seton placement right lateral K50.113, Crohn's disease of large intestine with fistula - K60.30, Anal fistula, unspecified TECHNIQUE: MRI of the pelvis prior to and following the intravenous administration of 23ml Dotarem. COMPARISON: MRI PELVIS SOFT TISSUE (GI RACING MANAGER) WWO CONTRAST 01/21/2016 MR Enterography 02/25/2019 FINDINGS: [...] craniocaudal, AP). The fistula was present in 2015; the [...] who have questions please contact the health wound care nurse that requested your imaging first. After discussion of risks, benefits, alternatives, and [...] Operative Note Patient Name: Igor Woodruff : [id number] MR#: [id number] Case Date: 03/17/2024 Surgeon: Surgeons and Role: [...] Fistula SURGICAL PATHOLOGY Apurva Vivas MD 03/17/2024 4560 Fluids: Intraprocedure Crystalloid Total Intake lactated ringers [...] Vivas MD - 03/17/2024 11:33 AM EST [facility] Operative Note Patient Name: Igor Woodruff : [id number] MR#: [id number] Case Date: 03/17/2024 Surgeon: Surgeons and Role: [...] operating room. General anesthesia wasinduced on the [facility]. The patient was positioned in the prone [...] No masses Anoscopy was performed with the [facility] retractor. Findings include internal opening, posterior [...] wasreturned to the supine position on the [facility]. He was awoken from general anesthesia and [...] PM EDT) No Perri Sousa, [facility] Note: Patient's [...] :43 AM EST Removal Anal Fistula, Complex/Multi (36185) Yes 03/17/2024 11:07 AM EST perianal crohns disease w/fistula Surg Diagnostic Exam, Anorectal (60351) Yes 03/17/2024 11:07 AM EST perianal crohns disease w/fistula documented in this encounter Results * Surgical Pathology (03/17/2024 11:43 AM EST) Case Report Surgical Pathology Report ? Case: [id number] ? Authorizing Provider: ??Apurva Vivas MD ? Collected: ? 03/17/2024 1143 ? Ordering Location: ? Main Operating Room [place] ?? Received: ?03/17/2024 1152 ? [facility] ? Hospital ? Pathologist: ? Morelia Hills MD ? Specimen: ?Fistula, Vanita anal skin ? 03/24/2024 2:51 PM [facility] Final Diagnosis A. Fistula, Vanita anal skin Excision: Anal skin/squamous mucosa with parakeratosis, underlying epithelioid granulomatous histiocytic aggregates with giant cell reaction, and acute and chronic inflammation, consistent with fistula tract in the appropriate clinical setting. 03/24/2024 2:51 PM [facility] Addendum Task ID IHC/Special Stains Result A1-3 AFB Stain Negative A1-4 GMS Stain Negative A1-5 Gram Stain (AP) Negative 03/24/2024 2:51 PM [facility] Addendum electronically signed by Morelia Hills MD on 03/24/2024 at 2:51 PM Additional Studies Task ID IHC/Special Stains Result A1-2 CKAE1/3 Reviewed for diagnosis A2-2 CKAE1/3 Reviewed for diagnosis 03/24/2024 2:51 PM [facility] Disclaimer(s) Formalin-fixed, paraffin-embedded tissue sections [...] and other diagnostic tests. 03/24/2024 2:51 PM [facility] Clinical Information A. Fistula, Vanita anal skin *Other - as specified in Clinical Information 03/24/2024 2:51 PM [facility] Gross Description A. Fistula, Vanita [...] cassettes labeled A1-A2. shb 03/24/2024 2:51 PM [facility] Result Note Routine 03/24/2024 2:51 PM [facility] Tissue FISTULA / Unknown 03/17/2024 11:43 AM EST 03/17/2024 11:52 AM EST Comment:Pre-op diagnosis: perianal crohns disease w/fistula Apurva Vivas MD [facility] [place] [address] documented in this encounter Visit Diagnoses Not [...] Given 03/17/2024 9:51 AM EST 975 mg fentaNYL (pf) (50 mcg/mL) multi-dose injection 12.5 [...] on Any 03/17/24 at 1204, Until Any 1/25 at 1327, Pain, Moderate to severe pain [...] 0.5% injection (CANCELED) PRN, Starting on Any 25 at 1159, Until Any 25 at 1526, Intra-Operative (Intra-Procedure), Routine 1159 (Given - Provid er: Apurva Vivas MD) fentaNYL (pf) (50 mcg/mL) multi-dose injection 12.5 mcg(Linked Group 1) 12.5 mcg, Intravenous, EVERY 5 MIN PRN, Starting on Any 25 at 1204, Until Any 125 at 1327, Pain, Mild to moderate pain [...] on Any 03/17/24 at 0940, Until Any 25 at 1327, for discomfort with PIV insertion, Day of Surgery (Day of Procedure), Routine naloxone (Narcan) (0.4 mg/mL) injection 0.04 mg 0.04 mg, Intravenous, EVERY 5 MIN PRN, 3 doses, Starting on Any 125 at 1204, Until Any 125 at 1327, Opioid Reversal, for respiratory rate less than 6 or unresponsive., May repeat every 5 minutes to increase respiratory rate. DO NOT exceed 0.12 mg total dose. Notify anesthesia immediately if administered., PACU Recovery, Routine prochlorperazine (Compazine) (5 mg/mL) injection 5 mg 5 mg, Intravenous, EVERY 30 MIN PRN, 2 doses, Starting on Any 03/17/24 at 1204, Until Any 1 at 1327, Nausea, Vomiting, If multiple antiemetics [...] EVERY 10 MIN PRN, Starting on Any 125 at [...] EVERY 10 MIN PRN, Starting on Any 125 at 1204, Until Any 1//25 at 1327, Pain, For Moderate to Severe [...] Routine documented in this encounter Care Teams Veterinary Toxicologist Relationship Specialty Start Date End Date Richard Tidwell APRN [address] [place] [address] [address] [place] [address] PCP - General Family Medicine 03/15/24 documented as of this encounter
--- OUTSIDE RECORDS SUMMARY | 2024-04-18 02:34 | XMS_ITS | Encounter Summary ---
Author Organization [facility] Address [facility] [place] [address] Care Team Providers Care Social Welfare Clerk Name Role Phone Irwin Gonsalez DO Primary Care Provider [phone] Encounter Details Date Type Department Care Team (Latest Contact Info) Description 06/08/2023 4:30 PM EDT TH Visit (TeleHealth) [place] [phone] Ramonita Pandey MD [facility] [place] [address] Crohn's disease of ileum with other complication [...] Oct or Nov - repeat labs at [facility] at that time. Follow-up via telehealth with me or Thi Salgado APRN in about 8 months documented in this encounter Progress Notes * Ramonita Pandey MD - 06/08/2023 4:30 PM EDT [facility] IBD PROGRAM ESTABLISHED PATIENT TELEVISIT Patient Active [...] MRE 02/2019 - normal. Stopped AZA 03/2019 [place] 05/23/21 - Rutgeert's i1 - single small [...] below for further details re current symptoms. [facility] Gastro Pre-Visit Questionnaire 06/08/2023 4:49 PM EDT [...] No Confidence Level to Manage IBD 9 [facility] Ibd Qorus Study Participation 06/08/2023 4:49 [...] review of prior records): Reviewed labs from [facility] 12/22/22 - CBC, CMP, ESR, CRP all [...] Oct or Nov - repeat labs at [facility] at that time. Follow-up via telehealth with me or Thi Salgado APRN in about 8 months The patient was located in [place] at the time of their visit. Angelo Pandey MD Chief Deputy Court Clerkkitchen manager Co-Director, [facility] Section of Gastroenterology [place] [address] documented in this encounter Plan of Treatment [...] for 13 Occurrences starting 06/08/2023 until 06/06/2024 documented as of this encounter Goals Goal [...] complication documented in this encounter Care Teams Social Welfare Clerk Relationship Specialty Start Date End Date Irwin Gonsalez DO [address] [place] [address] PCP - General 05/01/11 03/14/24 documented as of this encounter
--- OUTSIDE RECORDS SUMMARY | 2024-04-18 02:34 | XMS_ITS | Encounter Summary ---
[place] [address] Care Team Providers Care Hotel Or Motel Receptionist Name Role Phone Irwin Gonsalez DO Primary Care Provider [phone] Reason for Visit * Reason Onset Date Comments Other 01/08/2023 LM for patient t o call MRI directly at [phone] to set up MRI Enterography that was ordered by Dr. Timothy Pandey 12/08/22, Encounter Details Date Type Department Care Team (Late st Contact Info) Description 01/08/2023 Telephone [place] [address] Kacey Benitez, RN Other (LM for patient to call MRI directly at [phone] to set up MRI Enterography that was [...] for patient to call MRI directly at [phone] to set up MRI Enterography that was [...] on filedocumented in this encounter Care Teams Hotel Or Motel Receptionist Relationship Specialty Start Date End Date Irwin Gonsalez DO [address] [place] [address] PCP - General 05/01/11 03/14/24 documented as of this encounter
--- OUTSIDE RECORDS SUMMARY | 2024-04-18 02:34 | XMS_ITS | Encounter Summary ---
[place] [address] Care Team Providers Care Low Pressure Kettle Operator Name Role Phone Irwin Gonsalez DO Primary Care Provider [phone] Encounter Details Date Type Department Care Team (Late st Contact Info) Description 02/25/2024 Telephone [place] [phone] Sabas Gonzales RN Social History Tobacco Use [...] on filedocumented in this encounter Care Teams Low Pressure Kettle Operator Relationship Specialty Start Date End Date Irwin Gonsalez DO [address] [place] [address] PCP - General 05/01/11 03/14/24 documented as of this encounter
--- OUTSIDE RECORDS SUMMARY | 2024-04-18 02:34 | XMS_ITS | Encounter Summary ---
[place] [address] Care Team Providers Care Freelance Translator Name Role Phone Irwin Gonsalez DO Primary Care Provider Reason for Visit * Reason Onset Date Comments Medication Refill 07/02/2023 Encounter Details Date Type Department Care Team (Late st Contact Info) Description 07/02/2023 Refill [place] [address] Ramonita Pandey MD [facility] [place] [address] Crohn's disease of ileum with other complication [...] Type Associated Problems Recent Progress Patient-Stated? Author [facility] Medication Compliance and Understanding Patient Facing Action [...] complication documented in this encounter Care Teams Freelance Translator Relationship Specialty Start Date End Date Irwin Gonsalez DO [address] [place] [address] PCP - General 05/01/11 03/14/24 documented as of this encounter
--- OUTSIDE RECORDS SUMMARY | 2024-04-18 02:34 | XMS_ITS | Encounter Summary ---
[place] [address] Care Team Providers Care Fisher Trot Line Name Role Phone Irwin Gonsalez DO Primary Care Provider [phone] Reason for Visit * Reason Comments Medication Management Encounter Details Date Type Department Care Team (Late st Contact Info) Description 05/21/2023 Specialty [place] [phone] Lars Olivares RPH Social History Tobacco Use [...] 017 9:39 PM EDT) No Perri Sousa [facility] Note: Patient's specific desired [...] on filedocumented in this encounter Care Teams Fisher Trot Line Relationship Specialty Start Date End Date Irwin Gonsalez DO [address] [place] [address] PCP - General 05/01/11 03/14/24 documented as of this encounter
--- OUTSIDE RECORDS SUMMARY | 2024-04-18 02:34 | XMS_ITS | Encounter Summary ---
Author Organization [facility] [place] [address] Care Team Providers Care Ash Conveyor Operator Name Role Phone Irwin Gonsalez DO Primary Care Provider Encounter Details Date Type Department Care Team (Late st Contact Info) Description 03/02/2024 Telephone [place] [address] Kathleen Chaney MD [facility] DR GASTROENTER[place] [address] Social History Tobacco Use Types Packs/Day Years [...] 9:39 PM EDT) No Perri Sousa, [facility] [...] on filedocumented in this encounter Care Teams Ash Conveyor Operator Relationship Specialty Start Date End Date Irwin Gonsalez DO [address] [place] [address] PCP - General 05/01/11 03/14/24 documented as of this encounter
--- OUTSIDE RECORDS SUMMARY | 2024-04-18 02:34 | XMS_ITS | Encounter Summary ---
[place] [address] Care Team Providers Care Purification Supervisor Name Role Phone Irwin Gonsalez DO Primary Care Provider [phone] Encounter Details Date Type Department Care Team (Late st Contact Info) Description 02/23/2024 Telephone [place] [address] Shannan Barnard RN Social History Tobacco Use [...] PM EST Auth letter received. Faxed to [facility] and scanned in to chart * Telephone Encounter - Shannan Barnard RN - 02/24/2024 9:36 AM EST Approved: 03/01/24-03/02/25 Auth #[id number] Order to [facility] * Telephone Encounter - Shannan Barnard RN - 02/23/2024 9:41 AM EST Prior Authorization Facility: [facility] TIN: [id number] [place] Medicaid ID# for facility: Medication: remicade J-code: J1745 Dosage: 5 mg\kg (114 kg)= 565.5 mg or 600 mg Frequency & Route: IV week 0,2,6 then every 8 weeks Insurance & Phone #: [place]/[phone] ID #: [id number] Trialed (dosage, frequency): Imuran, Asacol, 6MP, Humira 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
--- OUTSIDE RECORDS SUMMARY | 2024-04-18 02:34 | XMS_ITS | Encounter Summary ---
[place] [address] Care Team Providers Care Oral And Maxillofacial Surgery Resident Name Role Phone Irwin Gonsalez DO Primary Care Provider [phone] Reason for Visit * Reason Comments Prior Authorization Humira 40mg/0.4mL PN KT Encounter Details Date Type Department Care Team (Late st Contact Info) Description 05/22/2023 Specialty [place] [address] Zainab Herrmann, [facility] Social History Tobacco Use Types Packs/Day [...] Patient : 1975 Patient Address: [address] [facility] [address] Phone: [phone] (home) Medication Name: HUMIRA(CF) PEN 40 MG/0.4 ML SUBCUTANEOUS KIT Medication ID: [id number] Subscriber Insurance: Unable to find Subscriber Insurance Comment: Isaac JJPARVIZ ([facility]) Fax: Physician: Ramonita MATAMOROS Physician Comment: Sent Via: [facility] Orellana: [id number] Ref/Case/PA#: [id number] Medication Strength Frequency Requested: Humira 40mg/0.4mL, INJECT 1 PEN UNDER THE SKIN EVERY 7 DAYS. Qty/Day Supply: 07/11 New Start: Renewal Diagnosis & ICD-10 Code: K50.018 Crohn's disease of ileum with other complication Patient Notified: No Submission Notes: Shay Herrmann 05/22/23 8:26 AM * Marielle Colbert - 05/22/2023 8:03 AM EST [facility], Prior Authorization Approval Medication Name: HUMIRA(CF) PEN 40 MG/0.4 ML SUBCUTANEOUS KIT Medication ID: [id number] Approval Dates: 05/21/2023 to 05/20/2024 Insurance requirements/notes: - Must fill with [facility] Specialty. Other Notes: None Case/Reference #: [id number] Approval notification Received via: Fax Copay: N/A - unable to determine due to insurance mandate Copay assistance: Copay Notes: Insurance mandated Pharmacy: TBD Fillable at [facility] Specialty Pharmacy: No Patient Notified: No Pharmacy staff will be reaching out to the patient to inform them of their [facility]. If applicable, a pharmacist [...] on filedocumented in this encounter Care Teams Oral And Maxillofacial Surgery Resident Relationship Specialty Start Date End Date Irwin Gonsalez DO [address] [place] [address] PCP - General 05/01/11 03/14/24 documented as of this encounter
--- OUTSIDE RECORDS SUMMARY | 2024-04-18 02:34 | XMS_ITS | Encounter Summary ---
[place] [address] Care Team Providers Care Manager Quality Systems Name Role Phone Irwin Gonsalez DO Primary Care Provider [phone] Reason for Visit * Reason Comments Prior Authorization Humira Pen Encounter Details Date Type Department Care Team (Late st Contact Info) Description 05/01/2022 Specialty [place] [address] Marielle Colbert Social History Tobacco [...] : 1975 Patient Address: [address] [facility] [address] Phone: [phone] (home) Medication Name: HUMIRA(CF) PEN 40 MG/0.4 ML SUBCUTANEOUS KIT Medication ID: [id number] Subscriber [facility] Subscriber Insurance Comment: Fax: Physician: Ramonita MATAMOROS Physician Comment: Sent Via: [facility] Orellana: [id number] Ref/Case/PA#: Medication Strength Frequency Requested: inject 40mg subcutaneously once every 7 days Qty/Day Supply: 07/11 New Start: Renewal Diagnosis & ICD-10 Code: Crohn's Disease K50.018 Patient Notified: Submission Notes: None Marielle Colbert 05/01/22 8:59 AM documented in this encounter Plan of Treatment Not on file documented as of this encounter Goals Goal Patient Goal Type Associated Problems Recent Progress Patient-Stated? Author [facility] Home Medication Compliance and Understanding Patient Facing Action Plan On track( 017 9:39 PM EDT) No Perri Sousa, [facility] Note: Patient's specific desired goal: Igor [...] filedocumented in this encounter Care Teams Manager Quality Systems Relationship Specialty Start Date End Date Irwin Gonsalez DO [address] [place] [address] PCP - General 05/01/11 03/14/24 documented as of this encounter
--- OUTSIDE RECORDS SUMMARY | 2024-04-18 02:34 | XMS_ITS | Encounter Summary ---
Author Organization [facility] [place] [address] Care Team Providers Care Director Of Billing Name Role Phone Irwin Gonsalez DO Primary Care Provider [phone] Encounter Details Date Type Department Care Team (Late st Contact Info) Description 04/29/2023 [place] [address] Vignesh Thomas, RN Social History Tobacco Use Types Packs/Day [...] in this encounter Care Teams Director Of Billing Relationship Specialty Start Date End Date Irwin Gonsalez DO [address] [place] [address] PCP - General 05/01/11 03/14/24 documented as of this encounter
--- OUTSIDE RECORDS SUMMARY | 2024-04-18 02:35 | XMS_ITS | Encounter Summary ---
[place] [address] Care Team Providers Care Relations Liaison Name Role Phone Irwin Gonsalez DO Primary Care Provider Reason for Visit * Reason Comments Medication Management Encounter Details Date Type Department Care Team (Late st Contact Info) Description 04/18/2022 Specialty [place] [address] Ericka Abreu RPH Social History Tobacco Use [...] 017 9:39 PM EDT) No Perri Sousa RPH Note: Patient's specific desired goal: Igor would [...] on filedocumented in this encounter Care Teams Relations Liaison Relationship Specialty Start Date End Date Irwin Gonsalez DO [address] [place] [address] PCP - General 05/01/11 03/14/24 documented as of this encounter
--- OUTSIDE RECORDS SUMMARY | 2024-04-18 02:35 | XMS_ITS | Encounter Summary ---
[place] [address] Care Team Providers Care Campus Interviews Intern Name Role Phone Irwin Gonsalez DO Primary Care Provider Encounter Details Date Type Department Care Team (Late st Contact Info) Description 07/19/2021 Telephone [place] [phone] Bibiana James Social History Tobacco Use Types [...] Type Associated Problems Recent Progress Patient-Stated? Author [facility] Medication Compliance and Understanding Patient Facing Action Plan On track( 017 9:39 PM EDT) No Merry Perri M, [facility] Note: Patient's specific desired goal: [...] on filedocumented in this encounter Care Teams Campus Interviews Intern Relationship Specialty Start Date End Date Irwin Gonsalez DO [address] [place] [address] PCP - General 05/01/11 03/14/24 documented as of this encounter
--- OUTSIDE RECORDS SUMMARY | 2024-04-18 02:35 | XMS_ITS | Encounter Summary ---
[place] [address] Care Team Providers Care Dry Cleaning Manager Name Role Phone Irwin oGnsalez DO Primary Care Provider Reason for Visit * Reason Comments Medication Management Medication Refill Patient Education Encounter Details Date Type Department Care Team (Late st Contact Info) Description 05/14/2021 Specialty Pharmacy [place] [address] Rhea Aldridge RPH Social History [...] Requirements: no Medication Reconciliation Discrepancies (compared to [facility] med list) no Medication List: Current Outpatient [...] specialty services: Yes Patient accepted offer to counselor manager: select all, adherence/missed doses, cost of medications/cost [...] Social Assessment: Does patient have a primary neonatal critical care nurse: No Does patient have an emergency contact on file: Yes Does patient need referral to manager social work: No Does patient need referral to advocacy [...] Yes Date Confirmed: 11/20/17 Confirmation: Signature in Hexagram 49 Specialty Med Adherence Patient Demonstrates Understanding of [...] were made at the appointment and that [facility] isproviding recommendations (summary located at top [...] 017 9:39 PM EDT) No Perri Sousa [facility] ED [...] on filedocumented in this encounter Care Teams Dry Cleaning Manager Relationship Specialty Start Date End Date Irwin Gonsalez DO [address] [place] [address] PCP - General 05/01/11 03/14/24 documented as of this encounter
--- OUTSIDE RECORDS SUMMARY | 2024-04-18 02:35 | XMS_ITS | Encounter Summary ---
[place] [address] Care Team Providers Care Steel Estimator Name Role Phone Irwin Gonsalez DO Primary Care Provider Reason for Visit * Reason Comments Specialty Refill Management Encounter Details Date Type Department Care Team (Late st Contact Info) Description 11/29/2021 Specialty [place] [phone] Amirah Cano CPHT Social History Tobacco Use [...] 9:39 PM EDT) No Perri Sousa, [facility] Note: Patient's [...] on filedocumented in this encounter Care Teams Steel Estimator Relationship Specialty Start Date End Date Irwin Gonsalez DO [address] [place] [address] [address] [facility] [place] [address] PCP - General 05/01/11 03/14/24 documented as of this encounter
--- OUTSIDE RECORDS SUMMARY | 2024-04-18 02:35 | XMS_ITS | Encounter Summary ---
[place] [address] Care Team Providers Care Welfare Aide Name Role Phone Irwin Gonsalez DO Primary Care Provider Reason for Visit * Reason Comments Specialty Refill Management Encounter Details Date Type Department Care Team (Late st Contact Info) Description 09/04/2021 Specialty [place] [address] Brittani Silver, [facility] Social History Tobacco Use Types Packs/Day [...] Known Allergies Medication Reconciliation Discrepancies (compared to [facility] med list) No Specialty [...] on filedocumented in this encounter Care Teams Welfare Aide Relationship Specialty Start Date End Date Irwin Gonsalez DO [address] [place] [address] PCP - General 05/01/11 03/14/24 documented as of this encounter
--- OUTSIDE RECORDS SUMMARY | 2024-04-18 02:35 | XMS_ITS | Encounter Summary ---
Author Organization [facility] Address [facility] [place] [address] Care Team Providers Care Grain Mill Products Inspector Name Role Phone Irwin Gonsalez DO Primary Care Provider Encounter Details Date Type Department Care Team (Late st Contact Info) Description 05/23/2021 Orders [place] [address] Ramonita Pandey MD [facility] [place] [address] Social History Tobacco Use Types Packs/Day Years [...] Type Associated Problems Recent Progress Patient-Stated? Author [facility] Medication Compliance and Understanding Patient Facing [...] on filedocumented in this encounter Care Teams Grain Mill Products Inspector Relationship Specialty Start Date End Date Irwin Gonsalez DO [address] [place] [address] [address] [place] [address] PCP - General 05/01/11 03/14/24 documented as of this encounter
--- OUTSIDE RECORDS SUMMARY | 2024-04-18 02:35 | XMS_ITS | Encounter Summary ---
[place] [address] Care Team Providers Care Material Handler Name Role Phone Irwin Gonsalez DO Primary Care Provider [phone] Reason for Visit * Reason Comments Specialty Refill Management Encounter Details Date Type Department Care Team (Late st Contact Info) Description 04/18/2021 Specialty [place] [address] Hayden Gutierrez CPHT Social History [...] Known Allergies Medication Reconciliation Discrepancies (compared to [facility] med list) No Specialty Pharmacy Refill [...] on filedocumented in this encounter Care Teams Material Handler Relationship Specialty Start Date End Date Irwin Gonsalez DO [address] [place] [address] PCP - General 05/01/11 03/14/24 documented as of this encounter
--- OUTSIDE RECORDS SUMMARY | 2024-04-18 02:35 | XMS_ITS | Encounter Summary ---
Author Organization [facility] Address [facility] [place] [address] Care Team Providers Care Grinding Machine Operator Portable Name Role Phone Irwin Gonsalez DO Primary Care Provider [phone] Reason for Visit * Auth/Cert Specialty Diagnoses / Procedures Referred By Haresh powers Referred To Contact Diagnoses Crohn's disease of small intestine with other complication 46 yo with Crohn's - needs restaging Procedures PRO COLONOSCOPY, DIAGNOSTIC PRO ANESTH, LWR INTESTINE, NOS PRO ANESTH, LWR INTESTINE, SCREENING COLONOSCOPY COLONOSCOPY, DIAGNOSTIC Referral ID Status Reason Start Date Expiration Date Visits Re quested Visits Authorized [id number] 1 1 Encounter Details Date Type Department Care Team (Latest Contact Info) Description 05/23/2021 2:32 PM EST - 05/23/2021 5:29 PM [facility] Hospital En[place] [address] Ramonita Pandey MD [facility] [place] [address] Discharge Disposition: Home Social History Tobacco Use [...] occurs, please contact your Doctor. Please call [phone] before 8pm Mon-Fri with problems, questions or concerns. If you call after 8pm or on weekends, call the Hospital at [phone] and ask to speak to the Inventory Administrator carbon sequestration plant engineer and the die cutter operator will contact that person for you. When should you call for help? Call [phone] anytime you think you may need emergency [...] any problems. Where can you learn more? [facility] View your After Visit Summary and more online at [email or web address] If you would like to provide feedback about your hospital experience, please call the Office of Patient and Family Relations at . If you have received this After Visit Summary in error, please immediately return it in person to the department, or notify the [facility] Privacy Office by calling toll free at between the hours of 8AM and 5PM to arrange for our retrieval of the documents at no cost to you. Content Version: 12.2 ?? [id number] [employer]. Care instructions adapted under license by [facility]. If you have questions about a medical condition or this instruction, always ask your healthcare professional. [employer] disclaims any warranty or liability for your [...] Routine 05/23/2021 4:38 PM EST Colonoscopy, Biopsy ([id number]) 05/23/2021 4:09 PM EST Crohn's disease of ileum with other complication COLONOSCOPY Routine 05/23/2021 2:40 PM EST documented in this encounter Results * Specimen to Pathology (05/23/2021 4:42 PM EST) AP Specimen 05/23/2021 4:42 PM EST 05/23/2021 4:42 PM EST Narrative [facility] - 05/23/2021 4:42 PM EST Specimen requisition ordered. ??Separate Pathology report to follow L Timothy Pandey MD PATHOLOGY/CYTOLOGY O TULIO Performing Organization Address [email or web address] [place] [address] * Specimen to Pathology (05/23/2021 4:42 PM EST) AP Specimen 05/23/2021 4:42 PM EST 05/23/2021 4:42 PM EST Narrative [facility] - 05/23/2021 4:42 PM EST Specimen requisition ordered. ??Separate Pathology report to follow L Timothy Pandey MD PATHOLOGY/CYTOLOGY Gaston ANTUNEZ Performing Organization Address [email or web address] [place] [address] * Surgical Pathology Report (05/23/2021 4:38 PM EST) Pathologist [facility] Final Diagnosis [id number] ? Location: 4T; EA; A The signing [...] MD Verified: ??05/25/2021 15:19 ??Pathologist Performed at: ??-[facility] Dept. of Pathology, [place], [place] SPECIMEN(S) SUBMITTED A - Mucosal biopsies; [...] labeled B1-B2. ??mnd 05/25/2021 3:19 PM EST [facility] GI Biopsy 05/23/2021 4:38 PM EST 05/23/2021 4:38 PM EST GI Biopsy 05/23/2021 4:38 PM EST 05/23/2021 4:38 PM EST L Timothy Pandey MD PATHOLOGY/CYTOLOGY O RDERABLES [facility] [place] [address] * COLONOSCOPY (05/23/2021 2:40 PM EST) COLONOSCOPY [facility] Endoscopy Procedure Date: 05/23/2021 2:40 PM ? Patient Name: Igor Woodruff ? Date of : 1975 ? Age: 46 ? Order #: [id number] ? Instrument Name: [id number] ? Procedure: ? Colonoscopy Patient Profile: ? This is a 46 year old male. This ? patient has ileal Crohn's disease ? with perianal involvement, is taking ? adalimumab and is experiencing mild ? symptoms. Providers: ? Angelo Pandey MD, Jania Shaw, ? Elmo Espinosa, Health Careers Instructor Referring : ?Irwin Gonsalez, DO Medicines: ? [...] preparation was evaluated using ? the BBPS ([employer] Bowel Preparation ? Scale) with scores of: [...] noted. ? Apart from the previously described xbyr-dz-yuus ? widely patent ileocolonic anastomosis in the [...] PM PROVATION 05/23/2021 2:40 PM EST Irwin Wallace DO GENERAL SURGICAL ORD ERABLES PROVATION documented [...] Any 05/23/21 at 1934, Intra-Operative (Intra-Procedure), Routine 161 (Given - Provid er: Jania Shaw RN)161 (Given - Provider: Jania Shaw RN)162 (Given - Provider: Jania Shaw RN)1625 (Given - Provider: Jania Shaw RN) midazolam (pf) (Versed) (1 mg/mL) multi-dose injection (CANCELED) ONCE PRN, Starting on Any 05/23/21 at 1615, Until Any 05/23/21 at 1934, Intra-Operative (Intra-Procedure), Routine 1615 (Given - Provid er: Jania Shaw RN)161 (Given - Provider: Jania Shaw, SYDNEE)162 (Given - Provider: Jania Shaw, SYDNEE)1626 (Given - Provider: Jania Shaw RN)1633 (Given - Provider: Jaina Shaw RN) documented in this encounter Care Teams Grinding Machine Operator Portable Relationship Specialty Start Date End Date Irwin Gonsalez DO [address] [facility] [place] [address] PCP - General 05/01/11 03/14/24 documented as of this encounter
--- OUTSIDE RECORDS SUMMARY | 2024-04-18 02:35 | XMS_ITS | Encounter Summary ---
[place] [address] Care Team Providers Care Automatic Screwmaker Name Role Phone Irwin Gonsalez DO Primary Care Provider Reason for Visit * Reason Comments Medication Management Encounter Details Date Type Department Care Team (Late st Contact Info) Description 08/13/2021 Specialty [place] [phone] Vinicio Spencer RPH Social History Tobacco Use [...] beneficiary Provider: plan sponsor pharmacist [facility] Follow-up Time Spent: 1-15 min Method of Contact: by telephone Cognitive Ability: good Cognitive Impairment Status Verified this Year: no Allergies and Drug intolerance: No Known Allergies Medication Reconciliation Discrepancies ([facility]) -n/a Specialty Pharmacy Refill [...] at the appointment and that [facility] is providing recommendations (summary located at [...] on filedocumented in this encounter Care Teams Automatic Screwmaker Relationship Specialty Start Date End Date Irwin Gonsalez DO [address] [place] [address] [address] [place] [address] PCP - General 05/01/11 03/14/24 documented as of this encounter
--- OUTSIDE RECORDS SUMMARY | 2024-04-18 02:35 | XMS_ITS | Encounter Summary ---
[place] [address] Care Team Providers Care Ux Architect Name Role Phone Irwin Gonsalez DO Primary Care Provider Reason for Visit * Reason Comments Specialty Refill Management Encounter Details Date Type Department Care Team (Late st Contact Info) Description 06/04/2021 Specialty [place] [phone] Vidya Santana, MANAGER CONVENTION Social History Tobacco Use Types Packs/Day Years [...] Known Allergies Medication Reconciliation Discrepancies (compared to [facility] med list) No Specialty Pharmacy Refill [...] on filedocumented in this encounter Care Teams Ux Architect Relationship Specialty Start Date End Date Irwin Gonsalez DO [address] [place] [address] [address] [facility] 1 [place] [address] PCP - General 05/01/11 03/14/24 documented as of this encounter
--- OUTSIDE RECORDS SUMMARY | 2024-04-18 02:35 | XMS_ITS | Encounter Summary ---
Author Organization [facility] Address [facility] [place] [address] Care Team Providers Care Professor Of Art Name Role Phone Irwin Gonsalez DO Primary Care Provider [phone] Encounter Details Date Type Department Care Team (Late st Contact Info) Description 07/02/2021 [place] [address] Ramonita Pandey MD [facility] [place] [address] Social History Tobacco Use Types Packs/Day Years [...] Type Associated Problems Recent Progress Patient-Stated? Author [facility] Medication Compliance and Understanding Patient Facing [...] on filedocumented in this encounter Care Teams Professor Of Art Relationship Specialty Start Date End Date Irwin Gonsalez DO [address] [place] [address] [address] [place] [address] PCP - General 05/01/11 03/14/24 documented as of this encounter
--- OUTSIDE RECORDS SUMMARY | 2024-04-18 02:35 | XMS_ITS | Encounter Summary ---
[place] [address] Care Team Providers Care Clinical Research Coordinator Name Role Phone Irwin Gonsalez DO Primary Care Provider Reason for Visit * Reason Comments Medication Management Specialty Refill Management Encounter Details Date Type Department Care Team (Late st Contact Info) Description 10/04/2021 Specialty [place] [address] Mansoor Sapp Sunday Social History [...] Sunday Comprehensive Medication Management (CMM) Igor Sherine Mayitorobertjohsua Mr. Igor Woodruff is a 46 y.o. [...] to [facility] med list) No Specialty Pharmacy Refill [...] 017 9:39 PM EDT) No Perri Sousa [facility] Note: Patient's [...] on filedocumented in this encounter Care Teams Clinical Research Coordinator Relationship Specialty Start Date End Date Irwin Gonsalez DO [address] [place] [address] [address] [facility] [place] [address] PCP - General 05/01/11 03/14/24 documented as of this encounter
--- OUTSIDE RECORDS SUMMARY | 2024-04-18 02:35 | XMS_ITS | Encounter Summary ---
[place] [address] Care Team Providers Care Distillation Operator Name Role Phone Irwin Gonsalez DO Primary Care Provider [phone] Reason for Visit * Reason Comments Prior Authorization Humira PEN 40mg/0.4m l PNKT Encounter Details Date Type Department Care Team (Late st Contact Info) Description 12/02/2021 Specialty [place] [phone] Thao Sheppard, MORE Social History Tobacco Use [...] Patient : 1975 Patient Address: [address] [facility] [address] Phone: [phone] (home) Medication Name: ADALIMUMAB 40 MG/0.4 ML SUBCUTANEOUS PEN KIT Medication ID: [id number] Patient Location: [facility] 4L Patient Location Comment: Medication Strength Frequency Requested: Humira PEN 40mg/0.4ml PNKT, Inject 0.4ml (40mg) subcutaneously once every 7 days. Qty/Day Supply: 07/11 New Start: Renewal Diagnosis & ICD-10 Code: K50.018 Crohn's disease of ileum with other complication Subscriber Insurance: Subscriber Insurance Comment: [facility] ([facility]) Phone: [phone] Fax: Physician: Ramonita MATAMOROS Physician Comment : PA Status: NO PA REQUIRED Insurance mandated Pharmacy: Pharmacy Fillable at [facility]: YES Insurance requirements/notes: PA on file for Humira PEN 40mg/0.4ml PNKT, qty 07/11 through 05/16/2022. None Copay: $5 Copay assistance: Copay assistance comment: Pharmacy staff will be reaching out to the patient to inform them of [facility] If applicable, a pharmacist will speak [...] track( 017 9:39 PM EDT) Perri Hernandez [facility] Note: Patient's specific desired goal: Igor would [...] on filedocumented in this encounter Care Teams Distillation Operator Relationship Specialty Start Date End Date Irwin Gonsalez DO [address] [facility] [facility] [address] [place] [address] PCP - General 05/01/11 03/14/24 documented as of this encounter
--- OUTSIDE RECORDS SUMMARY | 2024-04-18 02:35 | XMS_ITS | Encounter Summary ---
[place] [address] Care Team Providers Care Audio Production Manager Name Role Phone Irwin Gonsalez DO Primary Care Provider Reason for Visit * Reason Comments Specialty Refill Management Humira Pen 4 0mg/0.4ml Pnkt Encounter Details Date Type Department Care Team (Late st Contact Info) Description 01/23/2022 Specialty [place] [phone] Jg Griffin, [facility] Social History Tobacco Use Types Packs/Day Years [...] Jg Griffin Comprehensive Medication Management (CMM) Igor Woodruff Mr. [...] PM EDT) No Perri Sousa, [facility] Note: Patient's specific desired [...] on filedocumented in this encounter Care Teams Audio Production Manager Relationship Specialty Start Date End Date Irwin Gonsalez DO [address] [place] [address] [address] [place] [address] PCP - General 05/01/11 03/14/24 documented as of this encounter
--- OUTSIDE RECORDS SUMMARY | 2024-04-18 02:35 | XMS_ITS | Encounter Summary ---
[place] [address] Care Team Providers Care Care Program Resident Name Role Phone Irwin Gonsalez DO Primary Care Provider [phone] Reason for Visit * Reason Comments Medication Management Patient Education Encounter Details Date Type Department Care Team (Late st Contact Info) Description 11/01/2021 Specialty [place] [address] Dena Dey RPH Social History [...] Requirements: no Medication Reconciliation Discrepancies (compared to [facility] med list) yes - added HTN meds [...] specialty services: Yes Patient accepted offer to industrial relations counselor: possible adverse side effects and management, [...] Social Assessment: Does patient have a primary care program resident: No Does patient have an emergency contact on file: Yes Does patient need referral to licensed social worker: No Does patient need referral [...] Yes Date Confirmed: 11/20/17 Confirmation: Signature in [employer] Specialty Med Adherence Patient Demonstrates Understanding of [...] 017 9:39 PM EDT) No Perri Sousa [facility] Note: Patient's specific [...] on filedocumented in this encounter Care Teams Care Program Resident Relationship Specialty Start Date End Date Irwin Gonsalez DO [address] [place] [address] PCP - General 05/01/11 03/14/24 documented as of this encounter
--- OUTSIDE RECORDS SUMMARY | 2024-04-18 02:35 | XMS_ITS | Encounter Summary ---
[place] [address] Care Team Providers Care Junior Linux Administrator Name Role Phone Irwin oGnsalez DO Primary Care Provider [phone] Encounter Details Date Type Department Care Team (Late st Contact Info) Description 04/23/2021 Telephone [place] [address] ElizabethJune Social History Tobacco Use Types Packs/Day [...] - 04/23/2021 8:22 AM EST Igor Woodruff [id number] Diagnosis/Indication: 46 yo with Crohn's - needs [...] to patient: You must have a responsible democrat who will drive you to your procedure, [...] on filedocumented in this encounter Care Teams Junior Linux Administrator Relationship Specialty Start Date End Date Irwin Gonsalez DO [address] [place] [address] PCP - General 05/01/11 03/14/24 documented as of this encounter
--- OUTSIDE RECORDS SUMMARY | 2024-04-18 02:35 | XMS_ITS | Encounter Summary ---
[place] [address] Care Team Providers Care Wire Spooler Name Role Phone Irwin Gonsalez DO Primary Care Provider Reason for Visit * Reason Comments Specialty Refill Management Encounter Details Date Type Department Care Team (Late st Contact Info) Description 02/20/2022 Specialty [place] [phone] Amirah Cano CPHT Social History Tobacco Use [...] on filedocumented in this encounter Care Teams Wire Spooler Relationship Specialty Start Date End Date Irwin Gonsalez DO [address] [place] [address] [address] [place] [address] PCP - General 05/01/11 03/14/24 documented as of this encounter
--- OUTSIDE RECORDS SUMMARY | 2024-04-18 02:35 | XMS_ITS | Encounter Summary ---
[place] [address] Care Team Providers Care Compliance Coordinator Name Role Phone Irwin Gonsalez DO Primary Care Provider Encounter Details Date Type Department Care Team (Late st Contact Info) Description 04/18/2021 Orders [place] [address] Deisi Chatman, RN Crohn's disease of ileum [...] Perri Sousa, [facility] Note: [...] complication documented in this encounter Care Teams Compliance Coordinator Relationship Specialty Start Date End Date Irwin Gonsalez DO [address] [place] [address] PCP - General 05/01/11 03/14/24 documented as of this encounter
--- OUTSIDE RECORDS SUMMARY | 2024-04-18 02:35 | XMS_ITS | Encounter Summary ---
Author Organization Replaced By [facility] Address [facility] [address] Care Team Providers Care Stone Derrickman And Rigger Name Role Phone Irwin Gonsalez DO Primary Care Provider [phone] Encounter Details Date Type Department Care Team (Late st Contact Info) Description 11/29/2021 [place] [address] Ramonita Pandey MD [facility] [place] [address] Social History Tobacco Use Types Packs/Day Years [...] Type Associated Problems Recent Progress Patient-Stated? Author [facility] Medication Compliance and Understanding Patient Facing Action Plan On track( 017 9:39 PM EDT) No Perri Sousa, [facility] Note: [...] filedocumented in this encounter Care Teams Stone Derrickman And Rigger Relationship Specialty Start Date End Date Irwin Gonsalez DO [address] [place] [address] [address] [place] [address] PCP - General 05/01/11 03/14/24 documented as of this encounter
--- OUTSIDE RECORDS SUMMARY | 2024-04-18 02:35 | XMS_ITS | Encounter Summary ---
[place] [address] Care Team Providers Care Radiology Ct Technologist Name Role Phone Irwin Gonsalez DO Primary Care Provider Reason for Visit * Reason Comments Medication Refill Medication Management Encounter Details Date Type Department Care Team (Late st Contact Info) Description 07/10/2021 Specialty [place] [address] Rhea Aldridge RPH Social History [...] Allergies Medication Reconciliation Discrepancies (compared to [facility] med list) No Specialty Pharmacy Refill [...] 017 9:39 PM EDT) No Perri Sousa [facility] Note: [...] on filedocumented in this encounter Care Teams Radiology Ct Technologist Relationship Specialty Start Date End Date Irwin Gonsalez DO [address] [place] [address] [address] [facility] 1 [place] [address] PCP - General 05/01/11 03/14/24 documented as of this encounter
--- OUTSIDE RECORDS SUMMARY | 2024-04-18 02:35 | XMS_ITS | Encounter Summary ---
[place] [address] Care Team Providers Care Concrete Pump Operator Name Role Phone Irwin Gonsalez DO Primary Care Provider Reason for Visit * Reason Comments Specialty Refill Management Encounter Details Date Type Department Care Team (Late st Contact Info) Description 12/26/2021 Specialty [place] [phone] Amirah Cano CPHT Social History Tobacco Use [...] on filedocumented in this encounter Care Teams Concrete Pump Operator Relationship Specialty Start Date End Date Irwin Gonsalez DO [address] [place] [address] [address] [facility] 1 [place] [address] PCP - General 05/01/11 03/14/24 documented as of this encounter
--- OUTSIDE RECORDS SUMMARY | 2024-04-18 02:35 | XMS_ITS | Encounter Summary ---
Author Organization [facility] Address [facility] [place] [address] Care Team Providers Care Yam Curer Name Role Phone Irwin Gonsalez DO Primary Care Provider [phone] Reason for Visit * Auth/Cert Specialty Diagnoses / Procedures Referred By Haresh powers Referred To Contact Diagnoses Crohn's disease of small intestine with other complication 46 yo with Crohn's - needs restaging Procedures PRO COLONOSCOPY, DIAGNOSTIC PRO ANESTH, LWR INTESTINE, NOS PRO ANESTH, LWR INTESTINE, SCREENING COLONOSCOPY COLONOSCOPY, DIAGNOSTIC Referral ID Status Reason Start Date Expiration Date Visits Re quested Visits Authorized [id number] 1 1 Encounter Details Date Type Department Care Team (Late st Contact Info) Description 05/23/2021 4:00 PM EST - 05/23/2021 5:00 PM EST Surgery [place] [address] Ramonita Pandey MD [facility] [place] [address] COLONOSCOPY FLEXIBLE, WITH BX (WRVU 3.56) Social [...] occurs, please contact your Doctor. Please call [phone] before 8pm Mon-Fri with problems, questions or concerns. If you call after 8pm or on weekends, call the Hospital at [phone] and ask to speak to the District Or District Office Director radio television announcer and the press operator meat will contact that person for you. When should you call for help? Call [phone] anytime you think you may need emergency [...] any problems. Where can you learn more? [facility] View your After Visit Summary and more online at [email or web address] If you would like to provide feedback about your hospital experience, please call the Office of Patient and Family Relations at . If you have received this After Visit Summary in error, please immediately return it in person to the department, or notify the [facility] Privacy Office by calling toll free at between the hours of 8AM and 5PM to arrange for our retrieval of the documents at no cost to you. Content Version: 12.2 ?? [id number] [employer]. Care instructions adapted under license by [facility]. If you have questions about a medical condition or this instruction, always ask your healthcare professional. [employer] disclaims any warranty or liability for your [...] Routine 05/23/2021 4:38 PM EST Colonoscopy, Biopsy ([id number]) 05/23/2021 4:09 PM EST Crohn's disease of ileum with other complication COLONOSCOPY Routine 05/23/2021 2:40 PM EST documented in this encounter Results * Specimen to Pathology (05/23/2021 4:42 PM EST) AP Specimen 05/23/2021 4:42 PM EST 05/23/2021 4:42 PM EST Narrative [facility] - 05/23/2021 4:42 PM EST Specimen requisition ordered. ??Separate Pathology report to follow L Timothy Pandey MD PATHOLOGY/CYTOLOGY O TULIO Performing Organization Address [facility] [place] [address] * Specimen to Pathology (05/23/2021 4:42 PM EST) AP Specimen 05/23/2021 4:42 PM EST 05/23/2021 4:42 PM EST Narrative [facility] - 05/23/2021 4:42 PM EST Specimen requisition ordered. ??Separate Pathology report to follow L Timothy Pandey MD PATHOLOGY/CYTOLOGY O TULIO Performing Organization Address [facility] [place] [address] * Surgical Pathology Report (05/23/2021 4:38 PM EST) Final Diagnosis [id number] ? Location: 4T; EA; A The signing [...] MD Verified: ??05/25/2021 15:19 ??Pathologist Performed at: ??-[facility] Dept. of Pathology, [place], [place] SPECIMEN(S) SUBMITTED A - Mucosal biopsies; [...] labeled B1-B2. ??mnd 05/25/2021 3:19 PM EST [facility] GI Biopsy 05/23/2021 4:38 PM EST 05/23/2021 4:38 PM EST GI Biopsy 05/23/2021 4:38 PM EST 05/23/2021 4:38 PM EST L Timothy Pandey MD PATHOLOGY/CYTOLOGY O RDERABLES [facility] [place] [address] * COLONOSCOPY (05/23/2021 2:40 PM EST) COLONOSCOPY [facility] Endoscopy Procedure Date: 05/23/2021 2:40 PM ? Patient Name: Igor Woodruff ? Date of : 1975 ? Age: 46 ? Order #: [id number] ? Instrument Name: [id number] ? Procedure: ? Colonoscopy Patient Profile: ? This is a 46 year old male. This ? patient has ileal Crohn's disease ? with perianal involvement, is taking ? adalimumab and is experiencing mild ? symptoms. Providers: ? Angelo Pandey MD, Jania Shaw, ? Elmo Espinosa, Ski Production Supervisor Referring : ?Irwin Gonsalez, DO Medicines: ? [...] preparation was evaluated using ? the BBPS (PicApp Bowel Preparation ? Scale) with scores of: [...] noted. ? Apart from the previously described [id number]-[id number] ? widely patent ileocolonic anastomosis in the [...] PROVATION 05/23/2021 2:40 PM EST Irwin Gonsalez GENERAL SURGICAL ORD ERABLES PROVATION documented in [...] Shaw RN)1619 (Given - Provider: Jania Shaw RN)162 (Given - Provider: Jania Shaw RN)1626 (Given - Provider: Jania Shaw RN)1633 (Given - Provider: Jania Shaw RN) documented in this encounter Care Teams Yam Curer Relationship Specialty Start Date End Date Irwin Gonsalez DO [address] [facility] [place] [address] PCP - General 05/01/11 03/14/24 documented as of this encounter
--- OUTSIDE RECORDS SUMMARY | 2024-04-18 02:35 | XMS_ITS | Encounter Summary ---
Author Organization [facility] [place] [address] Care Team Providers Care Electron Beam Photo Mask Technician Name Role Phone Irwin Gonsalez DO Primary Care Provider Encounter Details Date Type Department Care Team (Latest Contact Info) Description 04/22/2021 3:00 PM EST TH Visit (TeleHealth) [place] [phone] Ramonita Pandey MD [facility] [place] [address] Crohn's disease of ileum with other complication [...] adalimumab concentration with reflex antibody testing at [facility] 5 Follow-up via telehealth following colonoscopy. documented [...] (2002); Lap, Surg, Colectomy, W/Remvl Term Ileum (15582) (10/29/2010); Colonoscopy, Biopsy ([id number]) (05/01/2011); Colonoscopy, Diagnostic (46626) (02/25/2013); Surg Diagnostic Exam, Anorectal ([id number]) (N/A, 02/26/2016); Placement, Seton (63447) (N/A, 02/26/2016); Cystoscopy, Insert Ureteral Stent (98017) (Left, 05/02/2016); Cysto W Ureteroscopy &/Or Pyeloscopy, Dx (29826) (Left, 05/02/2016); Cystourethroscopy, Ureter Catheter (87842) (Left, 05/02/2016); Fluoroscopy Exam Up To 1 Hr y Or [facility] Care Prov (08655) (Left, 05/02/2016); Cystoscopy, Remv Calculus, Simple (88894) (Left, 05/23/2016); Cysto/Ureteroscopy W/Lithotri[employer] Indwelling Stent Insertion (21973) (Left, 05/23/2016); Fluoroscopy Exam Up To 1 Hr y Or [facility] Care Prov (76723) (Left, 05/23/2016); Cystourethroscopy, Ureter Catheter (05843) (Left, 05/23/2016); and Colonoscopy, Diagnostic (36976) (N/A, 02/09/2017). Family History: family history includes [...] reviewed his labs from April drawn at [facility]. CRP, CBC within normal. Liver tests elevated [...] to [facility], and he needs restaging with a colonoscopy within the next ~4 weeks. May want to consider Remicade depending on colonoscopy results. Recommendations: 1. Continue Humira weekly 2. Colonoscopy within the next 4 weeks 3. Please call for worsening pain around the anus or fevers; low threshold to start ciprofloxacin and metronidazole 4. Check routine labs and adalimumab concentration with reflex antibody testing at [facility] 5 Follow-up via telehealth following colonoscopy. I spent 25 min today reviewing the chart preparing for this visit, counseling the patient [id number] on the issues outlined above, and documenting an implementing the plan. Angelo Pandey MD Manager Hrisdirector digital analytics Co-Director, [facility] Section of Gastroenter[place] [address] documented in this encounter Plan of Treatment Scheduled Orders Name Type Priority Associated Diagnoses Orde r Schedule ENDOSCOPY CASE REQUEST: COLONOSCOPY, DIAGNOSTIC Procedures Routine Crohn's disease of ileum with other complication Ordered: 04/22/2021 documented as of this encounter Goals Goal [...] complication documented in this encounter Care Teams Electron Beam Photo Mask Technician Relationship Specialty Start Date End Date Irwin Gonsalez DO [address] [place] [address] [address] [place] [address] PCP - General 05/01/11 03/14/24 documented as of this encounter
--- OUTSIDE RECORDS SUMMARY | 2024-04-18 02:35 | XMS_ITS | Encounter Summary ---
[place] [address] Care Team Providers Care Dynamotor Repairer Name Role Phone Irwin Gonsalez DO Primary Care Provider [phone] Encounter Details Date Type Department Care Team (Late st Contact Info) Description 04/18/2022 Orders [place] [address] Shannan Barnard, RN Crohn's disease of ileum [...] Type Associated Problems Recent Progress Patient-Stated? Author [facility] Medication Compliance and Understanding Patient [...] complication documented in this encounter Care Teams Dynamotor Repairer Relationship Specialty Start Date End Date Irwin Gonsalez DO [address] [place] [address] PCP - General 05/01/11 03/14/24 documented as of this encounter
--- OUTSIDE RECORDS SUMMARY | 2024-04-18 02:35 | XMS_ITS | Encounter Summary ---
Author Organization [facility] [place] [address] Care Team Providers Care Promotions Representative Name Role Phone Irwin Gonsalez DO Primary Care Provider [phone] Encounter Details Date Type Department Care Team (Late st Contact Info) Description 04/18/2021 Refill [place] [address] Ramonita Pandey MD [facility] [place] [address] Social History Tobacco Use Types Packs/Day Years [...] on filedocumented in this encounter Care Teams Promotions Representative Relationship Specialty Start Date End Date Irwin Gonsalez DO [address] [place] [address] [address] [place] [address] PCP - General 05/01/11 03/14/24 documented as of this encounter
--- OUTSIDE RECORDS SUMMARY | 2024-04-18 02:35 | XMS_ITS | Encounter Summary ---
[place] [address] Care Team Providers Care Dye Boarding Machine Operator Name Role Phone Irwin Gonsalez DO Primary Care Provider Reason for Visit * Reason Comments Specialty Refill Management Encounter Details Date Type Department Care Team (Late st Contact Info) Description 03/18/2022 Specialty [place] [phone] Amirah Cano CPHT Social History Tobacco Use [...] Known Allergies Medication Reconciliation Discrepancies (compared to [facility] med list) No Specialty Pharmacy Refill [...] 9:39 PM EDT) No Perri Sousa, [facility] Note: Patient's specific [...] filedocumented in this encounter Care Teams Dye Boarding Machine Operator Relationship Specialty Start Date End Date Irwin Gonsalez DO [address] [place] [address] [address] [place] [address] PCP - General 05/01/11 03/14/24 documented as of this encounter
--- OUTSIDE RECORDS SUMMARY | 2024-04-18 02:36 | XMS_ITS | Encounter Summary ---
[place] [address] Care Team Providers Care Medical Director Name Role Phone Irwin Gonsalez DO Primary Care Provider Encounter Details Date Type Department Care Team (Late st Contact Info) Description 06/11/2020 [place] [phone] Vidya Santana, ROUGE SIFTER Social History Tobacco Use Types Packs/Day Years [...] Known Allergies Medication Reconciliation Discrepancies (compared to [facility] med list) No New medications: No [...] 017 9:39 PM EDT) No Perri Sousa, [facility] Note: Patient's specific desired [...] on filedocumented in this encounter Care Teams Medical Director Relationship Specialty Start Date End Date Irwin Gonsalez DO [address] [place] [address] [address] [facility] 1 [place] [address] PCP - General 05/01/11 03/14/24 documented as of this encounter
--- OUTSIDE RECORDS SUMMARY | 2024-04-18 02:36 | XMS_ITS | Encounter Summary ---
[place] [address] Care Team Providers Care Chemical Etching Processor Name Role Phone Irwin Gonsalez DO Primary Care Provider [phone] Reason for Visit * Reason Comments Specialty Refill Management Encounter Details Date Type Department Care Team (Late st Contact Info) Description 08/07/2020 Specialty [place] [address] Manolo Gonzalez RPH Social History [...] (compared to [facility] med list) No Specialty Pharmacy Refill [...] current drug regimen were made.. Manolo Jarvis [facility] 08/07/20 10:58 AM documented in this encounter Plan of Treatment Not on file documented as of this encounter Goals Goal Patient Goal Type Associated Problems Recent Progress Patient-Stated? Author [facility] Home Medication Compliance and Understanding Patient Facing Action Plan On track( 017 9:39 PM EDT) No Perri Sousa [facility] Note: Patient's specific [...] on filedocumented in this encounter Care Teams Chemical Etching Processor Relationship Specialty Start Date End Date Irwin Gonsalez DO [address] [place] [address] [address] [place] [address] PCP - General 05/01/11 03/14/24 documented as of this encounter
--- OUTSIDE RECORDS SUMMARY | 2024-04-18 02:36 | XMS_ITS | Encounter Summary ---
[place] [address] Care Team Providers Care Traveling Electrician Name Role Phone Irwin Gonsalez DO Primary Care Provider Encounter Details Date Type Department Care Team (Late st Contact Info) Description 04/16/2020 Orders [place] [address] Shannan Barnard, RN Crohn's disease of ileum [...] Type Associated Problems Recent Progress Patient-Stated? Author [facility] Medication Compliance and Understanding Patient Facing Action [...] chemistry documented in this encounter Care Teams Traveling Electrician Relationship Specialty Start Date End Date Irwin Gonsalez DO [address] [place] [address] PCP - General 05/01/11 03/14/24 documented as of this encounter
--- OUTSIDE RECORDS SUMMARY | 2024-04-18 02:36 | XMS_ITS | Encounter Summary ---
[place] [address] Care Team Providers Care Clinical Abstractor Name Role Phone Irwin Gonsalez DO Primary Care Provider [phone] Reason for Visit * Reason Comments Prior Authorization Humira penkit 40mg/0 ,4mL Encounter Details Date Type Department Care Team (Late st Contact Info) Description 08/06/2020 Specialty [place] [phone] Pawan Gomez Social History Tobacco Use Types [...] 1975 Patient Address: [address] [facility] [address] (home) Medication Name: HUMIRA(CF) PEN 40 MG/0.4 ML SUBCUTANEOUS KIT Medication ID: Patient Location: [facility] Patient Location Comment: Subscriber Insurance: [facility] Subscriber Insurance Comment: Phone: Fax: Physician: Ramonita MATAMOROS Physician Comment: Sent Via: [facility] Orellana: [id number] Ref/Case/PA#: Medication Strength Frequency Requested: Humira 40mg/0.4mL inject the contents of one pen subq every 7 days Qty/Day Supply: 07/11 New Start: Renewal Diagnosis & ICD-10 Code: K50.018 Patient Notified: No Submission Notes: None Pawan Gomez 08/06/20 4:29 PM * Frederick Tamez - 08/06/2020 4:27 PM EDT [facility], Prior Authorization Approval Medication Name: HUMIRA(CF) PEN 40 MG/0.4 ML SUBCUTANEOUS KIT Medication ID: [id number] Approval Dates: 07/07/2020 to 08/06/2021 Insurance requirements/notes: None Other Notes: None Case/Reference #: [id number] Approval notification Received via: [facility] Copay: $5.00 Copay assistance: None Copay Notes: Copay is $5.00 no need to look for copay assistance Insurance mandated Pharmacy: Fillable at [facility] Specialty Pharmacy: Yes Pharmacy staff will be reaching out to the patient to inform them of their medication's [facility]. If applicable, a pharmacist [...] filedocumented in this encounter Care Teams Clinical Abstractor Relationship Specialty Start Date End Date Irwin Gonsalez DO [address] [place] [address] PCP - General 05/01/11 03/14/24 documented as of this encounter
--- OUTSIDE RECORDS SUMMARY | 2024-04-18 02:36 | XMS_ITS | Encounter Summary ---
[place] [address] Care Team Providers Care Customer Resolution Specialist Name Role Phone Irwin Gonsalez DO Primary Care Provider Reason for Visit * Reason Comments Medication Management Patient Education Medication Refill Encounter Details Date Type Department Care Team (Late st Contact Info) Description 11/23/2019 Specialty [place] [address] Rhea Aldridge RPH Social History [...] in person or via telephone:Telephone Mr. Igor Woorduff is a 44 y.o. (1975) male who [...] calculate BMI. Medication Reconciliation Discrepancies (compared to [facility] med list) no Medication Adherence Patient [...] beneficiary Provider: plan sponsor pharmacist Visit Type: [facility] Follow-up Method of Contact: [...] preventative care discussed, reminder to refill or picker box operator medication discussed, self-monitoring discussed, timing of medications [...] preventative care discussed, reminder to refill or picker box operator medication discussed, self-monitoring discussed, timing of medications [...] Assessment: Does the patient have a primary urgent care? no Does the patient have an emergency contact on file: Yes Does patient need referral to social director: No Does patient need referral to advocacy [...] at the appointment and that [facility] isproviding recommendations (summary located at [...] filedocumented in this encounter Care Teams Customer Resolution Specialist Relationship Specialty Start Date End Date Irwin Gonsalez DO [address] [place] [address] PCP - General 05/01/11 03/14/24 documented as of this encounter
--- OUTSIDE RECORDS SUMMARY | 2024-04-18 02:36 | XMS_ITS | Encounter Summary ---
Author Organization [facility] [place] [address] Care Team Providers Care Door Glass Installer Name Role Phone Irwin Gonsalez DO Primary Care Provider [phone] Reason for Referral * Consultation (Routine) - Closed Specialty Diagnoses / Procedures Referred By Haresh powers Referred To Contact Gastroenterology Diagnoses Crohn's disease of ileum with other complication Ramonita Pandey MD [facility] [place] [address] [facility] Endoscopy [address] [place] [address] Referral ID Status Reason Start Date Expiration Date V isits Requested Visits Authorized [id number] Closed Consult, Test & Treat 10/19/2019 10/18/2020 1 1 Encounter Details Date Type Department Care Team (Late st Contact Info) Description 10/19/2019 Orders [place] [address] Ramonita Pandey MD [facility] [place] [address] Crohn's disease of ileum with [...] of this encounter Plan of Treatment Scheduled Referrals Name Type Priority Associated Diagnoses [...] complication documented in this encounter Care Teams Door Glass Installer Relationship Specialty Start Date End Date Irwin Gonsalez DO [address] [place] [address] PCP - General 05/01/11 03/14/24 documented as of this encounter
--- OUTSIDE RECORDS SUMMARY | 2024-04-18 02:36 | XMS_ITS | Encounter Summary ---
[place] [address] Care Team Providers Care Senior Ui Developer Name Role Phone Irwin Gonsalez DO Primary Care Provider [phone] Reason for Visit * Reason Comments Medication Management Encounter Details Date Type Department Care Team (Late st Contact Info) Description 10/25/2019 Specialty [place] [phone] Manolo Gonzalez RPH Social History Tobacco Use [...] beneficiary Provider: plan sponsor pharmacist Visit Type: [facility] Follow-up Method of Contact: by telephone Cognitive Ability: good Cognitive Impairment Status Verified this Year: no Allergies and Drug intolerance: No Known Allergies Medication Reconciliation Discrepancies (compared to [facility] med list) -None New medications: no [...] at the appointment and that [facility] is providing recommendations (summary located at [...] 017 9:39 PM EDT) No Perri Sousa [facility] Note: Patient's specific [...] filedocumented in this encounter Care Teams Senior Ui Developer Relationship Specialty Start Date End Date Irwin Gonsalez DO [address] [place] [address] PCP - General 05/01/11 03/14/24 documented as of this encounter
--- OUTSIDE RECORDS SUMMARY | 2024-04-18 02:36 | XMS_ITS | Encounter Summary ---
Author Organization [facility] Address [facility] [place] [address] Care Team Providers Care Animal Anatomist Name Role Phone Irwin Gonsalez DO Primary Care Provider Encounter Details Date Type Department Care Team (Late st Contact Info) Description 10/01/2020 Refill [place] [address] Ramonita Pandey MD [facility] DR [place]STRO[place] [address] Social History Tobacco Use Types Packs/Day Years [...] filedocumented in this encounter Care Teams Animal Anatomist Relationship Specialty Start Date End Date Irwin Gonsalez DO [address] [place] [address] [address] [place] [address] PCP - General 05/01/11 03/14/24 documented as of this encounter
--- OUTSIDE RECORDS SUMMARY | 2024-04-18 02:36 | XMS_ITS | Encounter Summary ---
[place] [address] Care Team Providers Care Soap Grinder Name Role Phone Irwin Gonsalez DO Primary Care Provider Reason for Visit * Reason Comments Specialty Refill Management Encounter Details Date Type Department Care Team (Late st Contact Info) Description 12/24/2020 Specialty [place] [address] Hayden Gutierrez CPHT Social History [...] Discrepancies (compared to [facility] med list) No Specialty Pharmacy Refill Questionnaire [...] on filedocumented in this encounter Care Teams Soap Grinder Relationship Specialty Start Date End Date Irwin Gonsalez DO [address] [place] [address] [address] [place] [address] PCP - General 05/01/11 03/14/24 documented as of this encounter
--- OUTSIDE RECORDS SUMMARY | 2024-04-18 02:36 | XMS_ITS | Encounter Summary ---
Author Organization [facility] Address [facility] [place] [address] Care Team Providers Care Automation Sales Manager Name Role Phone Irwin Gonsalez DO Primary Care Provider Encounter Details Date Type Department Care Team (Late st Contact Info) Description 05/08/2020 [place] [address] Ramonita Pandey MD [facility] [place] [address] Social History Tobacco Use Types Packs/Day Years [...] on filedocumented in this encounter Care Teams Automation Sales Manager Relationship Specialty Start Date End Date Irwin Gonsalez DO [address] [place] [address] [address] [place] [address] PCP - General 05/01/11 03/14/24 documented as of this encounter
--- OUTSIDE RECORDS SUMMARY | 2024-04-18 02:36 | XMS_ITS | Encounter Summary ---
[place] [address] Care Team Providers Care Beamster Name Role Phone Irwin Gonsalez DO Primary Care Provider Encounter Details Date Type Department Care Team (Late st Contact Info) Description 01/23/2020 [place] [phone] Hayden Gutierrez CPHT Social History Tobacco Use [...] Known Allergies Medication Reconciliation Discrepancies (compared to [facility] med list) No New medications: No [...] on filedocumented in this encounter Care Teams Beamster Relationship Specialty Start Date End Date Irwin Gonsalez DO [address] [place] [address] PCP - General 05/01/11 03/14/24 documented as of this encounter
--- OUTSIDE RECORDS SUMMARY | 2024-04-18 02:36 | XMS_ITS | Encounter Summary ---
[place] [address] Care Team Providers Care Tamale Machine Feeder Name Role Phone Irwin Gonsalez DO Primary Care Provider [phone] Encounter Details Date Type Department Care Team (Late st Contact Info) Description 03/05/2020 Telephone [place] [phone] Jonathan Landers Social History Tobacco Use Types [...] Type Associated Problems Recent Progress Patient-Stated? Author [facility] Medication Compliance and Understanding Patient Facing [...] on filedocumented in this encounter Care Teams Tamale Machine Feeder Relationship Specialty Start Date End Date Irwin Gonsalez DO [address] [place] [address] PCP - General 05/01/11 03/14/24 documented as of this encounter
--- OUTSIDE RECORDS SUMMARY | 2024-04-18 02:36 | XMS_ITS | Encounter Summary ---
[place] [address] Care Team Providers Care Picture Booker Name Role Phone Irwin Gonsalez DO Primary Care Provider Encounter Details Date Type Department Care Team (Late st Contact Info) Description 01/21/2021 Specialty [place] [address] Jamey Fernandez CPHT Social History Tobacco Use [...] [facility] med list) No Specialty Pharmacy Refill Questionnaire [...] on filedocumented in this encounter Care Teams Picture Booker Relationship Specialty Start Date End Date Irwin Gonsalez DO [address] [place] [address] [address] [place] [address] PCP - General 05/01/11 03/14/24 documented as of this encounter
--- OUTSIDE RECORDS SUMMARY | 2024-04-18 02:36 | XMS_ITS | Encounter Summary ---
[place] [address] Care Team Providers Care Cylinder Loader Name Role Phone Irwin Gonsalez DO Primary Care Provider Reason for Visit * Reason Comments Specialty Refill Management Encounter Details Date Type Department Care Team (Late st Contact Info) Description 09/03/2020 Specialty Pharmacy [place] [address] Vidya Santana, [employer] Social History Tobacco Use Types Packs/Day Years [...] Consultation; Vidya Santana Comprehensive Medication Management (CMM) Iogr Sherine Monzonjoshua Mr. Igor Woodruff is a [...] Known Allergies Medication Reconciliation Discrepancies (compared to [facility] med list) No Specialty Pharmacy Refill Questionnaire [...] on filedocumented in this encounter Care Teams Cylinder Loader Relationship Specialty Start Date End Date Irwin Gonsalez DO [address] [place] [address] [address] [facility] [address] [place] [address] PCP - General 05/01/11 03/14/24 documented as of this encounter
--- OUTSIDE RECORDS SUMMARY | 2024-04-18 02:36 | XMS_ITS | Encounter Summary ---
[place] [address] Care Team Providers Care Allergy And Immunology Specialist Name Role Phone Irwin Gonsalez DO Primary Care Provider Encounter Details Date Type Department Care Team (Late st Contact Info) Description 04/16/2020 [place] [phone] Riya Pantoja CPHT Social History Tobacco Use [...] Known Allergies Medication Reconciliation Discrepancies (compared to [facility] med list) No New medications: No [...] on filedocumented in this encounter Care Teams Allergy And Immunology Specialist Relationship Specialty Start Date End Date Irwin Gonsalez DO [address] [place] [address] [address] [facility] 1 [place] [address] PCP - General 05/01/11 03/14/24 documented as of this encounter
--- OUTSIDE RECORDS SUMMARY | 2024-04-18 02:36 | XMS_ITS | Encounter Summary ---
[place] [address] Care Team Providers Care Dietician Name Role Phone Irwin Gonsalez DO Primary Care Provider Encounter Details Date Type Department Care Team (Late st Contact Info) Description 04/25/2020 [place] [phone] London Albarado Social History Tobacco Use Types [...] calls can be handled by: Any endoscopy home health scheduler. * Telephone Encounter - London Albarado - 04/25/2020 4:43 PM EST ----- Message from Airam Pathak sent at 04/25/2020 11:28 AM EST ----- Regarding: FW: per Clinic Admin Services-via [employer]-Please call pt to lucia. colo with Dr. Pandey on05/03/20. ----- Message ----- From: Catrina Verduzco Sent: 04/25/2020 8:04 AM EST To: [facility] Subject: per Clinic Admin [...] Type Associated Problems Recent Progress Patient-Stated? Author [facility] Medication Compliance and Understanding Patient Facing [...] on filedocumented in this encounter Care Teams Dietician Relationship Specialty Start Date End Date Irwin Gonsalez DO [address] [place] [address] PCP - General 05/01/11 03/14/24 documented as of this encounter
--- OUTSIDE RECORDS SUMMARY | 2024-04-18 02:36 | XMS_ITS | Encounter Summary ---
[place] [address] Care Team Providers Care Golf Course Assistant Name Role Phone Irwin Gonsalez DO Primary Care Provider [phone] Encounter Details Date Type Department Care Team (Late st Contact Info) Description 12/26/2019 [place] [address] Hayden Gutierrez CPHT Social History Tobacco Use [...] Known Allergies Medication Reconciliation Discrepancies (compared to [facility] med list) No New medications: No [...] 017 9:39 PM EDT) No Perri Sousa, [facility] Note: Patient's specific desired [...] on filedocumented in this encounter Care Teams Golf Course Assistant Relationship Specialty Start Date End Date Irwin Gonsalez DO [address] [place] [address] PCP - General 05/01/11 03/14/24 documented as of this encounter
--- OUTSIDE RECORDS SUMMARY | 2024-04-18 02:36 | XMS_ITS | Encounter Summary ---
Author Organization [facility] Address [place] [address] Care Team Providers Care Sole Leveler Machine Name Role Phone Irwin Gonsalez DO Primary Care Provider Encounter Details Date Type Department Care Team (Late st Contact Info) Description 03/19/2021 Refill [place] [address] Ramonita Pandey MD [facility] [place] [address] Social History Tobacco Use Types Packs/Day Years [...] Type Associated Problems Recent Progress Patient-Stated? Author [facility] Medication Compliance and Understanding Patient Facing Action Plan On track( 017 9:39 PM EDT) No Perri Sousa, [facility] Note: Patient's specific desired goal: Igor [...] on filedocumented in this encounter Care Teams Sole Leveler Machine Relationship Specialty Start Date End Date Irwin Gonsalez DO [address] [place] [address] [address] [place] [address] PCP - General 05/01/11 03/14/24 documented as of this encounter
--- OUTSIDE RECORDS SUMMARY | 2024-04-18 02:36 | XMS_ITS | Encounter Summary ---
[place] [address] Care Team Providers Care Pug Mill Operator Name Role Phone Irwin Gonsalez DO Primary Care Provider [phone] Encounter Details Date Type Department Care Team (Late st Contact Info) Description 02/20/2020 [place] [phone] Hayden Gutierrez CPHT Social History Tobacco Use [...] (compared to [facility] med list) No New medications: No [...] 9:39 PM EDT) Perri Hernandez, [facility] Note: Patient's specific [...] on filedocumented in this encounter Care Teams Pug Mill Operator Relationship Specialty Start Date End Date Irwin Gonsalez DO [address] [place] [address] PCP - General 05/01/11 03/14/24 documented as of this encounter
--- OUTSIDE RECORDS SUMMARY | 2024-04-18 02:36 | XMS_ITS | Encounter Summary ---
[place] [address] Care Team Providers Care Ultrasound Spec Name Role Phone Irwin Gonsalez DO Primary Care Provider Reason for Visit * Reason Comments Specialty Refill Management Encounter Details Date Type Department Care Team (Late st Contact Info) Description 2021 Specialty [place] [address] Hayden Gutierrez CPHT Social History [...] Known Allergies Medication Reconciliation Discrepancies (compared to [facility] med list) No Specialty Pharmacy Refill [...] on filedocumented in this encounter Care Teams Ultrasound Spec Relationship Specialty Start Date End Date Irwin Gonsalez DO [address] [place] [address] PCP - General 05/01/11 03/14/24 documented as of this encounter
--- OUTSIDE RECORDS SUMMARY | 2024-04-18 02:36 | XMS_ITS | Encounter Summary ---
[place] [address] Care Team Providers Care Trial Lawyer Name Role Phone Irwin Gonsalez DO Primary Care Provider [phone] Reason for Visit * Reason Comments Medication Management Patient Education Encounter Details Date Type Department Care Team (Late st Contact Info) Description 10/29/2020 Specialty [place] [address] Brent Tripp RPH Social History [...] calculate BMI. Medication Reconciliation Discrepancies (compared to [facility] med list) no Medication Adherence Patient [...] to doctor discussed, reminder to refill or bead picker medication discussed, self-monitoring discussed, referral needs discussed [...] to doctor discussed, reminder to refill or bead picker medication discussed, self-monitoring discussed, referral needs discussed [...] Assessment: Does the patient have a primary cardiac care unit nurse? no Does the patient have an emergency [...] made at the appointment and that [facility] isproviding recommendations (summary located at top [...] 017 9:39 PM EDT) No Perri Sousa [facility] Note: Patient's specific desired goal: [...] on filedocumented in this encounter Care Teams Trial Lawyer Relationship Specialty Start Date End Date Irwin Gonsalez DO [address] [place] [address] PCP - General 05/01/11 03/14/24 documented as of this encounter
--- OUTSIDE RECORDS SUMMARY | 2024-04-18 02:36 | XMS_ITS | Encounter Summary ---
[place] [address] Care Team Providers Care Trial Paralegal Name Role Phone Irwin Gonsalez DO Primary Care Provider Reason for Visit * Reason Comments Specialty Refill Management Encounter Details Date Type Department Care Team (Late st Contact Info) Description 03/19/2021 Specialty [place] [address] Vidya Santana, PIPING BLOCKER Social History Tobacco Use Types Packs/Day Years [...] to [facility] med list) No Specialty Pharmacy Refill [...] filedocumented in this encounter Care Teams Trial Paralegal Relationship Specialty Start Date End Date Irwin Gonsalez DO [address] [place] [address] [address] [facility] 1 [place] [address] PCP - General 05/01/11 03/14/24 documented as of this encounter
--- OUTSIDE RECORDS SUMMARY | 2024-04-18 02:36 | XMS_ITS | Encounter Summary ---
[place] [address] Care Team Providers Care Milling/Polishing Operator Name Role Phone Irwin Gonsalez DO Primary Care Provider [phone] Encounter Details Date Type Department Care Team (Late st Contact Info) Description 03/26/2020 Telephone [place] [phone] London Albarado Social History Tobacco Use Types [...] - 03/26/2020 10:20 AM EST Igor Woodruff [id number] Diagnosis/Indication: colonoscopy 1. Have you ever had [...] to patient: You must have a responsible constitution party who will drive you to your [...] on filedocumented in this encounter Care Teams Milling/Polishing Operator Relationship Specialty Start Date End Date Irwin Gonsalez DO [address] [place] [address] [address] [place] [address] PCP - General 05/01/11 03/14/24 documented as of this encounter
--- OUTSIDE RECORDS SUMMARY | 2024-04-18 02:36 | XMS_ITS | Encounter Summary ---
Author Organization [facility] Address [facility] [place] [address] Care Team Providers Care Plastic Production Machine Setter Name Role Phone Irwin Gonsalez DO Primary Care Provider [phone] Encounter Details Date Type Department Care Team (Late st Contact Info) Description 04/09/2021 Refill [place] [address] Ramonita Pandey MD [facility] [place] [address] Social History Tobacco Use Types Packs/Day Years [...] EDT) No Perri Sousa, [facility] Note: Patient's specific desired goal: Igor [...] on filedocumented in this encounter Care Teams Plastic Production Machine Setter Relationship Specialty Start Date End Date Irwin Gonsalez DO [address] [place] [address] [address] [place] [address] PCP - General 05/01/11 03/14/24 documented as of this encounter
--- OUTSIDE RECORDS SUMMARY | 2024-04-18 02:36 | XMS_ITS | Encounter Summary ---
Author Organization [facility] Address [facility] [place] [address] Care Team Providers Care Swiss Machinist Name Role Phone Irwin Gonsalez DO Primary Care Provider Encounter Details Date Type Department Care Team (Late st Contact Info) Description 09/19/2020 Orders [place] [address] [facility] [place] [address] Crohn's disease of ileum with other complication [...] complication documented in this encounter Care Teams Swiss Machinist Relationship Specialty Start Date End Date Irwin Gonsalez DO [address] [place] [address] PCP - General 05/01/11 03/14/24 documented as of this encounter
--- OUTSIDE RECORDS SUMMARY | 2024-04-18 02:36 | XMS_ITS | Encounter Summary ---
[place] [address] Care Team Providers Care Obstetric Anaesthetist Name Role Phone Irwin Gonsalez DO Primary Care Provider Reason for Visit * Reason Comments Medication Management Encounter Details Date Type Department Care Team (Late st Contact Info) Description 03/20/2020 Specialty [place] [address] Mansoor Sapp [facility] Social History Tobacco Use Types Packs/Day Years [...] beneficiary Provider: plan sponsor pharmacist Visit Type: [facility] Follow-up Method of Contact: by telephone Cognitive Ability: good Cognitive Impairment Status Verified this Year: no Allergies and Drug intolerance: No Known Allergies Medication Reconciliation Discrepancies (compared to [facility] med list) -none New medications: [...] 017 9:39 PM EDT) No Perri Sousa [facility] [...] on filedocumented in this encounter Care Teams Obstetric Anaesthetist Relationship Specialty Start Date End Date Irwin Gonsalez DO [address] [facility] 1 [place] [address] PCP - General 05/01/11 03/14/24 documented as of this encounter
--- OUTSIDE RECORDS SUMMARY | 2024-04-18 02:36 | XMS_ITS | Encounter Summary ---
[place] [address] Care Team Providers Care Corrective Therapy Aide Teacher Name Role Phone Irwin Gonsalez DO Primary Care Provider [phone] Reason for Visit * Reason Comments Specialty Refill Management Encounter Details Date Type Department Care Team (Late st Contact Info) Description 10/01/2020 Specialty [place] [address] Hayden Gutierrez CPHT Social History [...] on filedocumented in this encounter Care Teams Corrective Therapy Aide Teacher Relationship Specialty Start Date End Date Irwin Gonsalez DO [address] [place] [address] [address] [place] [address] PCP - General 05/01/11 03/14/24 documented as of this encounter
--- OUTSIDE RECORDS SUMMARY | 2024-04-18 02:36 | XMS_ITS | Encounter Summary ---
[place] [address] Care Team Providers Care Steel Pourer Name Role Phone Irwin Gonsalez DO Primary Care Provider Reason for Visit * Reason Comments Medication Management Patient Education Encounter Details Date Type Department Care Team (Late st Contact Info) Description 05/14/2020 Specialty Pharmacy [place] [address] Mansoor Sapp RPH Social History [...] and Recommendations: Igor Woodruff is a pleasant 45 y.o. male [...] calculate BMI. Medication Reconciliation Discrepancies (compared to [facility] med list) no Medication Adherence Patient [...] beneficiary Provider: plan sponsor pharmacist Visit Type: [facility] Follow-up Method [...] to doctor discussed, reminder to refill or order picker/assembler medication discussed, self-monitoring discussed, start medication discussed, [...] to doctor discussed, reminder to refill or order picker/assembler medication discussed, self-monitoring discussed, start medication discussed, [...] the patient have a primary critical care transport nurse? yes - Irwin Gonsalez Does the patient have an emergency contact on file: Yes Does patient need referral to neonatal social worker: No Does patient need referral [...] 017 9:39 PM EDT) No Perri Sousa [facility] Note: [...] filedocumented in this encounter Care Teams Steel Pourer Relationship Specialty Start Date End Date Irwin Gonsalez DO [address] [place] [address] [address] [facility] 1 [place] [address] PCP - General 05/01/11 03/14/24 documented as of this encounter
--- OUTSIDE RECORDS SUMMARY | 2024-04-18 02:36 | XMS_ITS | Encounter Summary ---
[place] [address] Care Team Providers Care Catalytic Converter Operator Helper Name Role Phone Irwin Gonsalez DO Primary Care Provider Reason for Visit * Reason Comments Medication Management Medication Refill Encounter Details Date Type Department Care Team (Late st Contact Info) Description 11/26/2020 Specialty [place] [address] Rhea Aldridge RPH Social History [...] Discrepancies (compared to [facility] med list) No Specialty Pharmacy Refill Questionnaire [...] current drug regimen were made. Rhea Aldridge 11/26/20 12:24 PM documented in this encounter Plan of Treatment Not on file documented as of this encounter Goals Goal Patient Goal Type Associated Problems Recent Progress Patient-Stated? Author [facility] Medication Compliance and Understanding Patient Facing Action Plan On track( 017 9:39 PM EDT) No Perri Sousa [facility] Note: Patient's [...] on filedocumented in this encounter Care Teams Catalytic Converter Operator Helper Relationship Specialty Start Date End Date Irwin Gonsalez DO [address] [place] [address] [address] [facility] 1 [place] [address] PCP - General 05/01/11 03/14/24 documented as of this encounter
--- OUTSIDE RECORDS SUMMARY | 2024-04-18 02:36 | XMS_ITS | Encounter Summary ---
Author Organization [facility] Address [facility] [place] [place] [address] Care Team Providers Care Health Informatics Specialist Name Role Phone Irwin Gonsalez DO Primary Care Provider [phone] Encounter Details Date Type Department Care Team (Late st Contact Info) Description 10/25/2019 Refill [place] [address] Ramonita Pandey MD [facility] [place] [address] Social History Tobacco Use Types Packs/Day Years [...] Type Associated Problems Recent Progress Patient-Stated? Author [facility] Medication Compliance and Understanding Patient Facing Action [...] filedocumented in this encounter Care Teams Health Informatics Specialist Relationship Specialty Start Date End Date Irwin Gonsalez DO [address] [place] [address] [address] [place] [address] PCP - General 05/01/11 03/14/24 documented as of this encounter
--- OUTSIDE RECORDS SUMMARY | 2024-04-18 02:36 | XMS_ITS | Encounter Summary ---
[place] [address] Care Team Providers Care Engineer Technical Staff Name Role Phone Irwin Gonsalez DO Primary Care Provider Reason for Visit * Reason Comments Specialty Refill Management Encounter Details Date Type Department Care Team (Late st Contact Info) Description 07/09/2020 Specialty [place] [address] Hayden Gutierrez CPHT Social History [...] (compared to [facility] med list) No Specialty Pharmacy Refill Questionnaire [...] on filedocumented in this encounter Care Teams Engineer Technical Staff Relationship Specialty Start Date End Date Irwin Gonsalez DO [address] [place] [address] PCP - General 05/01/11 03/14/24 documented as of this encounter
--- OUTSIDE RECORDS SUMMARY | 2024-04-18 02:37 | XMS_ITS | Encounter Summary ---
[place] [address] Care Team Providers Care Shoe Stitcher Name Role Phone Irwin Gonsalez DO Primary Care Provider Encounter Details Date Type Department Care Team (Late st Contact Info) Description 04/11/2019 Telephone [place] [phone] Michelle Murcia Social History Tobacco Use Types [...] asked that lab orders be sent to [facility]. Sent lab orders documented in this [...] filedocumented in this encounter Care Teams Shoe Stitcher Relationship Specialty Start Date End Date Irwin Gonsalez DO [address] [place] [address] PCP - General 05/01/11 03/14/24 documented as of this encounter
--- OUTSIDE RECORDS SUMMARY | 2024-04-18 02:37 | XMS_ITS | Encounter Summary ---
[place] [address] Care Team Providers Care Utilities Estimator And Drafter Name Role Phone Irwin Gonsalez DO Primary Care Provider Reason for Visit * Reason Comments Medication Management Encounter Details Date Type Department Care Team (Late st Contact Info) Description 01/24/2019 Specialty [place] [phone] Ericka Abreu RPH Social History Tobacco Use [...] beneficiary Provider: plan sponsor pharmacist Visit Type: [facility] Follow-up Method of Contact: by telephone Cognitive Ability: good Cognitive Impairment Status Verified this Year: no Allergies and Drug intolerance: No Known Allergies Medication Reconciliation Discrepancies (compared to [facility] med list) -no New medications: no New [...] appointment and that [facility] is providing recommendations (summary located at [...] 9:39 PM EDT) No Perri Sousa [facility] Note: Patient's [...] on filedocumented in this encounter Care Teams Utilities Estimator And Drafter Relationship Specialty Start Date End Date Irwin Gonsalez DO [address] [place] [address] PCP - General 05/01/11 03/14/24 documented as of this encounter
--- OUTSIDE RECORDS SUMMARY | 2024-04-18 02:37 | XMS_ITS | Encounter Summary ---
[place] [address] Care Team Providers Care Wool Washer Feeder Name Role Phone Irwin Gonsalez DO Primary Care Provider Reason for Visit * Reason Comments Medication Management Encounter Details Date Type Department Care Team (Late st Contact Info) Description 03/21/2019 Specialty [place] [phone] Ericka Abreu RPH Social History Tobacco Use [...] beneficiary Provider: plan sponsor pharmacist Visit Type: [facility] Follow-up Method of Contact: by telephone Cognitive Ability: good Cognitive Impairment Status Verified this Year: no Allergies and Drug intolerance: No Known Allergies Medication Reconciliation Discrepancies (compared to [facility] med list) -no New medications: no New [...] Perri Sousa [facility] Note: [...] on filedocumented in this encounter Care Teams Wool Washer Feeder Relationship Specialty Start Date End Date Irwin Gonsalez DO [address] [place] [address] PCP - General 05/01/11 03/14/24 documented as of this encounter
--- OUTSIDE RECORDS SUMMARY | 2024-04-18 02:37 | XMS_ITS | Encounter Summary ---
[place] [address] Care Team Providers Care Land Degradation Analyst Name Role Phone Irwin Gonsalez DO Primary Care Provider [phone] Reason for Visit * Reason Comments Specialty Pharmacy Review Encounter Details Date Type Department Care Team (Late st Contact Info) Description 10/03/2019 Specialty [place] [phone] Bianca Mi, [facility] Social History Tobacco Use Types Packs/Day [...] Type Associated Problems Recent Progress Patient-Stated? Author [facility] Medication Compliance and Understanding Patient Facing Action [...] on filedocumented in this encounter Care Teams Land Degradation Analyst Relationship Specialty Start Date End Date Irwin Gonsalez DO [address] [place] [address] PCP - General 05/01/11 03/14/24 documented as of this encounter
--- OUTSIDE RECORDS SUMMARY | 2024-04-18 02:37 | XMS_ITS | Encounter Summary ---
Author Organization [facility] Address [facility] [place] [address] Care Team Providers Care E M Assembler Name Role Phone Irwin Gonsalez DO Primary Care Provider Reason for Visit * Reason Comments Skin Check * Consultation (Routine) - Closed Specialty Diagnoses / Procedures Referred By Conthemanth t Referred To Contact Dermatology Diagnoses Crohn's disease with complication, unspecified gastrointestinal tract location Page Damico MD [facility] [place] [address] [facility] Dermatology [address] [place] [address] Referral ID Status Reason Start Date Expiration Date V isits Requested Visits Authorized [id number] Closed Consult, Test & Treat 11/01/2018 11/01/2019 1 1 Encounter Details Date Type Department Care Team (Late st Contact Info) Description 02/01/2019 8:00 AM EST Office Visit Dermatology at [facility] [address] [place] [address] Erasmo Barrientos MD [facility] [address] [place] [address] Hyperhidrosis; Multiple benign nevi; Dermatofibroma [...] History: - - 2 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 Botox total: 100 units Lot# [id number] Exp: 03/2021 Discussed with patient diagnostic options, [...] Note initiated by VICKIE Edgar. I, VICKIE dEgar, have performed the documentation for this encounter in the presence of and acting as a scribe for Erasmo Barrientos MD. I performed the services which were documented by the scribe, and I agree with the accuracy of the documentation in this encounter. Erasmo Barrientos MD Reviewed and signed by: Erasmo Barrientos MD Resident in Dermatology [facility] Patient seen and evaluated with staff deployment technician: Loc Mir MD Section of Dermatology [facility] * Loc Mir MD - 02/01/2019 8:00 [...] unspecified documented in this encounter Care Teams E M Assembler Relationship Specialty Start Date End Date Irwin Gonsalez DO [address] [place] [address] PCP - General 05/01/11 03/14/24 documented as of this encounter
--- OUTSIDE RECORDS SUMMARY | 2024-04-18 02:37 | XMS_ITS | Encounter Summary ---
[place] [address] Care Team Providers Care Dry Heat Room Attendant Name Role Phone Irwin Gonsalez DO Primary Care Provider Encounter Details Date Type Department Care Team (Late st Contact Info) Description 09/30/2019 [place] [phone] Michelle Murcia Social History Tobacco Use Types [...] filedocumented in this encounter Care Teams Dry Heat Room Attendant Relationship Specialty Start Date End Date Irwin Gonsalez DO [address] [place] [address] PCP - General 05/01/11 03/14/24 documented as of this encounter
--- OUTSIDE RECORDS SUMMARY | 2024-04-18 02:37 | XMS_ITS | Encounter Summary ---
[place] [address] Care Team Providers Care Solution Advisor Name Role Phone Irwin Gonsalez DO Primary Care Provider [phone] Reason for Visit * Reason Comments Medication Management Encounter Details Date Type Department Care Team (Late st Contact Info) Description 09/05/2019 Specialty [place] [phone] Manolo Gonzalez RPH Social History Tobacco Use [...] beneficiary Provider: plan sponsor pharmacist Visit Type: [facility] Follow-up Method of Contact: by telephone Cognitive Ability: good Cognitive Impairment Status Verified this Year: no Allergies and Drug intolerance: No Known Allergies Medication Reconciliation Discrepancies (compared to [facility] med list) -None New medications: no New [...] at the appointment and that [facility] is providing recommendations (summary located [...] 017 9:39 PM EDT) No Perri Sousa [facility] Note: Patient's specific desired [...] on filedocumented in this encounter Care Teams Solution Advisor Relationship Specialty Start Date End Date Irwin Gonsalez DO [address] [place] [address] PCP - General 05/01/11 03/14/24 documented as of this encounter
--- OUTSIDE RECORDS SUMMARY | 2024-04-18 02:37 | XMS_ITS | Encounter Summary ---
[place] [address] Care Team Providers Care Senior Enterprise Architect Name Role Phone Irwin Gonsalez DO Primary Care Provider Encounter Details Date Type Department Care Team (Late st Contact Info) Description 07/22/2019 [place] [phone] Shannan Barnard RN Social History Tobacco Use [...] Trialed (dosage, frequency): Diagnosis/ICD-10: Notes: Submitted via [facility] Approved:06/22/19-07/21/20 documented in this encounter Plan of Treatment Not on file documented as of this encounter Goals Goal Patient Goal Type Associated Problems Recent Progress Patient-Stated? Author [facility] Home Medication Compliance and Understanding Patient Facing Action Plan On track( 017 9:39 PM EDT) No Perri Sousa, [facility] Note: Patient's specific desired [...] filedocumented in this encounter Care Teams Senior Enterprise Architect Relationship Specialty Start Date End Date Irwin Gonsalez DO [address] [place] [address] PCP - General 05/01/11 03/14/24 documented as of this encounter
--- OUTSIDE RECORDS SUMMARY | 2024-04-18 02:37 | XMS_ITS | Encounter Summary ---
[place] [address] Care Team Providers Care Rigging Loft Mechanic Name Role Phone Irwin Gonsalez DO Primary Care Provider [phone] Encounter Details Date Type Department Care Team (Latest Contact Info) Description 10/13/2019 4:55 PM EDT Laboratory Appointment Lab [address] [place] [address] Crohn's disease of ileum with [...] 5:05 PM EDT) Neutrophil % 49.6 % [facility] Neutrophil Absolute 3.22 1.70 - 6.10 x10(3)/[facility] Lymph % 41.5 % [facility] Lymphocytes Abs 2.7 0.9 - 3.2 x10(3)/[facility] Monocyte % 6.9 % [facility] Monocyte Abs 0.4 0.3 - 0.9 x10(3)/[facility] Eos % 1.5 % [facility] Eosinophils Abs 0.1 0.0 - 0.4 x10(3)/[facility] Basophil % 0.3 % [facility] Baso Absolute 0.0 0.0 - 0.1 x10(3)/[facility] Immature Gran % 0.20 % [facility] Comment: Immature granulocytes(IG's)percentage and absolute count will include metamyelocytes, myelocytes, and promyelocytes. Blood smears from CBCs yielding IG's will be scanned manually for concordance. If this scan disagrees with the automated IG or if promyelocytes are noted, a manual differential will be performed. Immature Gran Absolute 0.01 0.00 - 0.04 x10(3)/[facility] Blood specimen (specimen) 10/13/2019 5:05 PM EDT 10/13/2019 5:35 PM EDT Narrative Resulting Agency Comment Spec In Lab L Timothy Pandey MD HEMATOLOGY ORDERABLE S [facility] [place] [address] * Hemogram (10/13/2019 5:05 PM EDT) White Blood Cell 6.5 4.0 - 9.5 x10(3)/[facility] Red Blood Cell 5.20 4.58 - 5.54 x10(6)/[facility] Hemoglobin 15.2 13.7 - 16.5 gm/dL [facility] Hematocrit 44.4 40.5 - 48.5 % [facility] Mean Cell Volume 85.4 82.9 - 93.[address] [facility] Mean Cell Hemoglobin 29.2 27.5 - 32.[address] [facility] Mean Cell Hemoglobin Concentration 34.2 32.0 - 35.7 gm/dL [facility] Platelet 263 145 - 357 x10(3)/[facility] RDW Standard Deviation 36.4 36.0 - 45.0 [facility] RDW coefficient of variation 11.8 11.4 - 13.8 % [facility] Mean Platelet Volume 9.7 7.6 - 12.9 [facility] NRBC% auto 0.0 % [facility] NRBC Absolute 0.000 0.000 - 0.000 x10(3)/mcL [facility] Blood specimen (specimen) 10/13/2019 5:05 PM EDT 10/13/2019 5:35 PM EDT Narrative Resulting Agency Comment Spec In Lab L Timothy Pandey MD HEMATOLOGY ORDERABLE S Performing Organization Address [facility]/ZIP Co de Phone Number [facility] [place] [address] * CRP, acute inflammation (10/13/2019 5:05 PM EDT) C-Reactive Protein 0.3 <=4.9 mg/L [facility] Blood specimen (specimen) 10/13/2019 5:05 PM EDT 10/13/2019 5:35 PM EDT Narrative Resulting Agency Comment Spec In Lab L Timothy Pandey MD CHEMISTRY ORDERABLES Performing Organization Address City/[facility]/ZIP Co de Phone Number [facility] [place] [address] * Hepatic Function Panel (10/13/2019 5:05 PM EDT) Protein, Total 6.9 6.1 - 8.0 gm/dL [facility] Albumin 4.3 3.2 - 5.2 gm/dL [facility] Aspartate Aminotransferase 22 0 - 39 unit/L [facility] Alanine Aminotransferase 31 0 - 55 unit/L [facility] Alkaline Phosphatase 54 40 - 130 unit/L [facility] Bilirubin, Total 0.8 0.2 - 1.3 mg/dL [facility] Bilirubin, Direct 0.2 0.0 - 0.3 mg/dL [facility] Blood specimen (specimen) 10/13/2019 5:05 PM EDT 10/13/2019 5:35 PM EDT Narrative Resulting Agency Comment Spec In Lab L Timothy Pandey MD CHEMISTRY ORDERABLES Performing Organization Address [facility]/ZIP Co de Phone Number [facility] [place] [address] * Adalimumab Quant with Reflex to Antibody (10/13/2019 5:05 PM EDT) Adalimumab Level (JULY) 16.3 mcg/mL [facility] Comment: For clinical assessment of response to therapy, adalimumab should be measured at trough. When adalimumab trough concentrations are greater than 8.0 mcg/mL, clinically relevant cqjdrvlezy-qu-yibiozkslw are unlikely and reflex testing will not be performed. REFERENCE VALUE Limit of Quantitation = 0.8 mcg/mL ADDITIONAL INFORMATION This test was developed and its performance characteristics determined by [facility] in a manner consistent with CLIA requirements. This test has not been cleared or approved by the U.S. Food and Drug Administration. Test Performed by: [facility] - [address] [address] Director Of Patient Care: Mauro Page M.D. Ph.D.; CLIA# [id number] Blood specimen (specimen) 10/13/2019 5:05 PM EDT 10/14/2019 10:40 AM EDT Narrative Resulting Agency Comment Spec In Lab L Timothy Pandey MD LAB SEND OUT ORDERAB LES Performing Organization Address [facility]/ZIP Co de Phone Number [facility] [place] [address] * Vitamin D, 25-Hydroxy (10/13/2019 5:05 PM EDT) Vitamin D Total 25 OH 48 21 - 100 ng/mL [facility] Comment: Please note, effective July 20, 2019, additional result field for Vitamin D Interpretation, and updated flagging notification. Vit D Interp Sufficient [facility] Blood specimen (specimen) 10/13/2019 5:05 PM EDT 10/13/2019 5:35 PM EDT Narrative Resulting Agency Comment Spec In Lab L Timothy Pandey MD CHEMISTRY ORDERABLES Performing Organization Address City/[facility]/ZIP Co de Phone Number [facility] [place] [address] * Vitamin B12 (10/13/2019 5:05 PM EDT) Vitamin B12 474 232 - 1,245 pg/mL [facility] Blood specimen (specimen) 10/13/2019 5:05 PM EDT 10/13/2019 5:35 PM EDT Narrative Resulting Agency Comment Spec In Lab L Timothy Pandey MD CHEMISTRY ORDERABLES Performing Organization Address City/[facility]/ZIP Co de Phone Number [facility] [place] [address] documented in this encounter Visit Diagnoses Diagnosis Crohn's disease of ileum with other complication documented in this encounter Care Teams Rigging Loft Mechanic Relationship Specialty Start Date End Date Irwin Gonsalez DO [address] [place] [address] PCP - General 05/01/11 03/14/24 documented as of this encounter
--- OUTSIDE RECORDS SUMMARY | 2024-04-18 02:37 | XMS_ITS | Encounter Summary ---
Author Organization [facility] Address [facility] [place] [address] Care Team Providers Care Interior Design Program Chair Name Role Phone Irwin Gonsalez DO Primary Care Provider Reason for Visit * Reason Comments Medication Refill Encounter Details Date Type Department Care Team (Late st Contact Info) Description 01/26/2019 [place] [address] Ramonita Pandey MD [facility] [place] [address] Crohn's disease with fistula, unspecified gastrointestinal tract [...] Type Associated Problems Recent Progress Patient-Stated? Author [facility] Medication Compliance and Understanding [...] location documented in this encounter Care Teams Interior Design Program Chair Relationship Specialty Start Date End Date Irwin Gonsalez DO [address] [place] [address] PCP - General 05/01/11 03/14/24 documented as of this encounter
--- OUTSIDE RECORDS SUMMARY | 2024-04-18 02:37 | XMS_ITS | Encounter Summary ---
[place] [address] Care Team Providers Care Plant Protection Guard Name Role Phone Irwin Gonsalez DO Primary Care Provider Encounter Details Date Type Department Care Team (Late st Contact Info) Description 09/27/2019 [place] [address] Vidya Santana, [facility] Social History Tobacco Use Types Packs/Day [...] Known Allergies Medication Reconciliation Discrepancies (compared to [facility] med list) No New medications: No New [...] filedocumented in this encounter Care Teams Plant Protection Guard Relationship Specialty Start Date End Date Irwin Gonsalez DO [address] [place] [address] [address] [facility] [address] [place] [address] PCP - General 05/01/11 03/14/24 documented as of this encounter
--- OUTSIDE RECORDS SUMMARY | 2024-04-18 02:37 | XMS_ITS | Encounter Summary ---
[place] [address] Care Team Providers Care Pharmacy Helper Name Role Phone Irwin Gonsalez DO Primary Care Provider [phone] Reason for Visit * Reason Comments Medication Management Encounter Details Date Type Department Care Team (Late st Contact Info) Description 02/23/2019 Specialty [place] [phone] Maliha Sutherland RPH Social History Tobacco Use [...] Medication Reconciliation Discrepancies (compared to [facility] med list) -none New medications: no New [...] at the appointment and that [facility] is providing recommendations (summary located [...] 9:39 PM EDT) No Perri Sousa [facility] Note: Patient's [...] on filedocumented in this encounter Care Teams Pharmacy Helper Relationship Specialty Start Date End Date Irwin Gonsalez DO [address] [facility] [address] [place] [address] PCP - General 05/01/11 03/14/24 documented as of this encounter
--- OUTSIDE RECORDS SUMMARY | 2024-04-18 02:37 | XMS_ITS | Encounter Summary ---
[place] [address] Care Team Providers Care Filer And Sander Name Role Phone Irwin Gonsalez DO Primary Care Provider Reason for Visit * Reason Comments Medication Management Patient Education Encounter Details Date Type Department Care Team (Late st Contact Info) Description 05/16/2019 Specialty [place] [address] Rhea Aldridge RPH Social History [...] calculate BMI. Medication Reconciliation Discrepancies (compared to [facility] med list) no Medication Adherence Patient reported [...] beneficiary Provider: plan sponsor pharmacist [place] [facility] Follow-up Method of Contact: by telephone Cognitive [...] preventative care discussed, reminder to refill or picking machine operator medication discussed, self-monitoring discussed, timing of [...] preventative care discussed, reminder to refill or picking machine operator medication discussed, self-monitoring discussed, timing of [...] Assessment: Does the patient have a primary anesthesiologist and critical care? no Patient has emergency contact on file: Yes Does patient need referral to nursing home social worker: No Does patient need referral [...] that [facility] isproviding recommendations (summary located at top of note) for provider review and follow up. Rhea Aldridge RPH 05/16/19 9:11 AM documented in this encounter Plan of Treatment Not on file documented as of this encounter Goals Goal Patient Goal Type Associated Problems Recent Progress Patient-Stated? Author Home Medication Compliance and Understanding Patient Facing Action Plan On track( 017 9:39 PM EDT) Perri Hernandez, [facility] Note: [...] Date End Date Irwin Gonsalez DO [address] [place] [address] [address] [place] [address] PCP - General 05/01/11 03/14/24 documented as of this encounter
--- OUTSIDE RECORDS SUMMARY | 2024-04-18 02:37 | XMS_ITS | Encounter Summary ---
[place] [address] Care Team Providers Care Youth Care Worker Name Role Phone Irwin Gonsalez DO Primary Care Provider Reason for Visit * Reason Comments Medication Management Encounter Details Date Type Department Care Team (Late st Contact Info) Description 07/06/2019 Specialty [place] [phone] Manolo Gonzalez RPH Social History Tobacco Use [...] Provider: plan sponsor pharmacist Visit Type: [facility] Follow-up Method of Contact: by telephone Cognitive Ability: good Cognitive Impairment Status Verified this Year: no Allergies and Drug intolerance: No Known Allergies Medication Reconciliation Discrepancies (compared to [facility] med list) -Discontinued azathioprine after changing to [...] 017 9:39 PM EDT) No Perri Sousa [facility] Note: [...] on filedocumented in this encounter Care Teams Youth Care Worker Relationship Specialty Start Date End Date Irwin Gonsalez DO [address] [place] [address] PCP - General 05/01/11 03/14/24 documented as of this encounter
--- OUTSIDE RECORDS SUMMARY | 2024-04-18 02:37 | XMS_ITS | Encounter Summary ---
Author Organization [facility] Address [facility] [place] [address] Care Team Providers Care Photographic Colorist Name Role Phone Irwin Gonsalez DO Primary Care Provider Reason for Referral * Consultation (Urgent) - Closed Specialty Diagnoses / Procedures Referred By Conthemanth powers Referred To Contact General Surgery Diagnoses Crohn's disease of ileum with other complication Ramonita Matamoros MD [facility] [place] [address] Brent De Los Santos PA [facility] [place] [address] Referral ID Status Reason Start Date Expiration Date V isits Requested Visits Authorized [id number] Closed Consult, Test & Treat 10/03/2019 10/02/2020 1 1 Encounter Details Date Type Department Care Team (Latest Contact Info) Description 10/03/2019 2:00 PM EDT TH Visit (TeleHealth) Gastroenterology at [facility] [place] [phone] Ramonita Matamoros MD [facility] [place] [address] Crohn's disease of ileum with other complication; [...] (2002); Lap, Surg, Colectomy, W/Remvl Term Ileum (52780) (10/29/2010); Colonoscopy, Biopsy (15276) (05/01/2011); Colonoscopy, Diagnostic (21462) (02/25/2013); Surg Diagnostic Exam, Anorectal (31201) (N/A, 02/26/2016); Placement, Seton (74801) (N/A, 02/26/2016); Cystoscopy, Insert Ureteral Stent (77675) (Left, 05/02/2016); Cysto W Ureteroscopy &/Or Pyeloscopy, Dx (83243) (Left, 05/02/2016); Cystourethroscopy, Ureter Catheter (93129) (Left, 05/02/2016); Fluoroscopy Exam Up To 1 Hr y Or [facility] Care Prov (47771) (Left, 05/02/2016); Cystoscopy, Remv Calculus, Simple (86766) (Left, 05/23/2016); Cysto/Ureteroscopy W/Lithotripsy Inc Indwelling Stent Insertion (77127) (Left, 05/23/2016); Fluoroscopy Exam Up To 1 Hr [facility]y [facility] (96698) (Left, 05/23/2016); Cystourethroscopy, Ureter Catheter (43474) (Left, 05/23/2016); and Colonoscopy, Diagnostic (06330) (N/A, 02/09/2017). Family History: family history includes [...] reviewed his labs from April drawn at [facility]. CRP, CBC within normal. Liver tests [...] telemedicine visit. The patient was located in [place] at the time of their visit. Ramonita MATAMOROS [place] [facility] [place] [address] documented in this encounter Plan of Treatment Scheduled Referrals [...] PM EDT) Adalimumab Level (JULY) 16.3 mcg/mL [facility] Comment: For clinical assessment of response to therapy, adalimumab should be measured at trough. When adalimumab trough concentrations are greater than 8.0 mcg/mL, clinically relevant aoddrbfqlx-xq-qazewcabac are unlikely and reflex testing will not be performed. REFERENCE VALUE Limit of Quantitation = 0.8 mcg/mL ADDITIONAL INFORMATION This test was developed and its performance characteristics determined by [facility] in a manner consistent with CLIA requirements. This test has not been cleared or approved by the U.S. Food and Drug Administration. Test Performed by: [facility] - [address] [address] Taxi Truck Driver: Mauro Page M.D. Ph.D.; CLIA# [id number] Blood specimen (specimen) 10/13/2019 5:05 PM EDT 10/14/2019 10:40 AM EDT Narrative Resulting Agency Comment Spec In Lab L Timothy Matamoros MD LAB SEND OUT ORDERAB LES [facility] [place] [address] * Vitamin D, 25-Hydroxy (10/13/2019 5:05 PM EDT) Vitamin D Total 25 OH 48 21 - 100 ng/mL [facility] Comment: Please note, effective July 20, 2019, additional result field for Vitamin D Interpretation, and updated flagging notification. Vit D Interp Sufficient [facility] Blood specimen (specimen) 10/13/2019 5:05 PM EDT 10/13/2019 5:35 PM EDT Narrative Resulting Agency Comment Spec In Lab L Timothy Matamoros MD CHEMISTRY ORDERABLES Performing Organization Address [facility] [employer] de Phone Number [facility] [place] [address] * Vitamin B12 (10/13/2019 5:05 PM EDT) Vitamin B12 474 232 - 1,245 pg/mL [facility] Blood specimen (specimen) 10/13/2019 5:05 PM EDT 10/13/2019 5:35 PM EDT Narrative Resulting Agency Comment Spec In Lab L Timothy Matamoros MD CHEMISTRY ORDERABLES Performing Organization Address City/[facility] [employer] de Phone Number [facility] [place] [address] documented in this encounter Visit Diagnoses Diagnosis Crohn's disease of ileum with other complication Abnormal liver function test Other abnormal blood chemistry documented in this encounter Care Teams Photographic Colorist Relationship Specialty Start Date End Date Irwin Gonsalez DO [address] [place] [address] PCP - General 05/01/11 03/14/24 documented as of this encounter
--- OUTSIDE RECORDS SUMMARY | 2024-04-18 02:37 | XMS_ITS | Encounter Summary ---
[place] [address] Care Team Providers Care Olive Grader Name Role Phone Irwin Gonsalez DO Primary Care Provider [phone] Encounter Details Date Type Department Care Team (Late st Contact Info) Description 03/24/2019 Notes [place] [address] Kacey Borrego, RN Social History Tobacco Use [...] - 03/24/2019 7:33 AM EST Contacted by [facility] regarding Are you experiencing any side effects [...] around and see if it goes away. [facility] will advise patient of this. documented in this encounter Plan of Treatment Not on file documented as of this encounter Goals Goal Patient Goal Type Associated Problems Recent Progress Patient-Stated? Author DH Home Medication Compliance and Understanding Patient Facing Action Plan On track( 017 9:39 PM EDT) No Perri Sousa, [facility] Note: Patient's specific desired goal: Igro would like to stay adherent on Humira [...] on filedocumented in this encounter Care Teams Olive Grader Relationship Specialty Start Date End Date Irwin Gonsalez DO [address] [place] [address] [address] [place] [address] PCP - General 05/01/11 03/14/24 documented as of this encounter
--- OUTSIDE RECORDS SUMMARY | 2024-04-18 02:37 | XMS_ITS | Encounter Summary ---
[place] [address] Care Team Providers Care Project Geologist Name Role Phone Irwin Gonsalez DO Primary Care Provider [phone] Reason for Visit * Reason Onset Date Comments Reminder Appointment 10/03/2019 Encounter Details Date Type Department Care Team (Late st Contact Info) Description 10/03/2019 Telephone [place] [phone] Elva Amaral CMA Reminder Appointment Social History [...] on filedocumented in this encounter Care Teams Project Geologist Relationship Specialty Start Date End Date Irwin Gonsalez DO [address] [place] [address] PCP - General 05/01/11 03/14/24 documented as of this encounter
--- OUTSIDE RECORDS SUMMARY | 2024-04-18 02:37 | XMS_ITS | Encounter Summary ---
[place] [address] Care Team Providers Care Stuntman Name Role Phone Irwin Gonsalez DO Primary Care Provider [phone] Reason for Visit * Reason Onset Date Comments Medication Refill 05/17/2019 Encounter Details Date Type Department Care Team (Late st Contact Info) Description 05/17/2019 Refill [place] [phone] Shannan Barnard, RN Social History Tobacco Use [...] on filedocumented in this encounter Care Teams Stuntman Relationship Specialty Start Date End Date Irwin Gonsalez DO [address] [place] [address] PCP - General 05/01/11 03/14/24 documented as of this encounter
--- OUTSIDE RECORDS SUMMARY | 2024-04-18 02:37 | XMS_ITS | Encounter Summary ---
Author Organization [facility] [place] [address] Care Team Providers Care Estimating Engineer Name Role Phone Irwin Gonsalez DO Primary Care Provider Reason for Referral * Diagnostic Test (Routine) - Closed Specialty Diagnoses / Procedures Referred By Contac t Referred To Contact Radiology Diagnoses Crohn's disease with complication, unspecified gastrointestinal tract location Procedures MRI Enterography wwo Contrast Page Damico MD [facility] [place], [place] [address] [place] [phone] Referral ID Status Reason Start Date Expiration Date V isits Requested Visits Authorized [id number] Closed Specialty Service Requested 01/19/2019 03/19/2019 1 1 Reason for Visit * Diagnostic Test (Routine) - Closed Specialty Diagnoses / Procedures Referred By Contac t Referred To Contact Radiology Diagnoses Crohn's disease with complication, unspecified gastrointestinal tract location Procedures MRI Enterography wwo Contrast Page Damico MD [facility] [place] [address] [place] [address] Referral ID Status Reason Start Date Expiration Date V isits Requested Visits Authorized [id number] Closed Specialty Service Requested 01/19/2019 03/19/2019 1 1 Encounter Details Date Type Department Care Team (Latest Contact Info) Description 02/25/2019 1:44 PM EST - 02/25/2019 11:59 PM EST Hospital Encounter MRI [place] [facility] [place] [address] Ramonita Pandey MD [facility] [place] [address] Crohn's disease with complication, unspecified gastrointestinal tract [...] 9:39 PM EDT) Perri Hernandez, [facility] Note: Patient's specific [...] perirectal fistula is not included in the xsnvq-gw-hmqu on today's examination. I have personally reviewed [...] perirectal fistula is not included in the cjnmy-bo-qxjy on today's examination. Extra-intestinal findings: No relevant [...] visualized perirectal fistula is not included inthe tpykj-se-fkzu on today's examination. Extra-intestinal findings: No relevant [...] perirectal fistula is not included in the yrccv-ap-nktz ontoday's examination. I have personally reviewed the image(s) and the resident's interpretationand agree with the findings, Roxana Moran at 02/28/2019 11:51 AM Thank you for letting us participate in the care of this patient. Forquestions regarding this report, please contact the number below. Electronically signed by: Roxana Moran [facility] ([phone]),at 02/28/2019 11:51 AM L Timothy Pandey MD [...] mg documented in this encounter Care Teams Estimating Engineer Relationship Specialty Start Date End Date Irwin Gonsalez DO [address] [place] [address] [address] [place] [address] PCP - General 05/01/11 03/14/24 documented as of this encounter
--- OUTSIDE RECORDS SUMMARY | 2024-04-18 02:37 | XMS_ITS | Encounter Summary ---
[place] [address] Care Team Providers Care Mat Inspector Name Role Phone Irwin Gonsalez DO Primary Care Provider Reason for Visit * Reason Comments Medication Management Encounter Details Date Type Department Care Team (Late st Contact Info) Description 04/18/2019 Specialty [place] [phone] Manolo Gonzalez RPH Social History Tobacco Use [...] Known Allergies Medication Reconciliation Discrepancies (compared to [facility] med list) -None New medications: no New [...] were made at the appointment and that [facility] is providing recommendations (summary located [...] 017 9:39 PM EDT) No Perri Sousa [facility] Note: Patient's specific [...] on filedocumented in this encounter Care Teams Mat Inspector Relationship Specialty Start Date End Date Irwin Gonsalez DO [address] [place] [address] PCP - General 05/01/11 03/14/24 documented as of this encounter
--- OUTSIDE RECORDS SUMMARY | 2024-04-18 02:37 | XMS_ITS | Encounter Summary ---
Author Organization [facility] [place] [address] Care Team Providers Care Head Start Assistant Teacher Name Role Phone Irwin Gonsalez DO Primary Care Provider [phone] Encounter Details Date Type Department Care Team (Late st Contact Info) Description 04/11/2019 Orders Only [place] [address] Ramonita Pandey MD [facility] [place] [address] Crohn's disease with fistula, unspecified gastrointestinal tract [...] PM EDT) No Perri Sousa, [facility] Note: Patient's specific desired [...] location documented in this encounter Care Teams Head Start Assistant Teacher Relationship Specialty Start Date End Date Irwin Gonsalez DO [address] [place] [address] PCP - General 05/01/11 03/14/24 documented as of this encounter
--- OUTSIDE RECORDS SUMMARY | 2024-04-18 02:37 | XMS_ITS | Encounter Summary ---
Author Organization [facility] Address [facility] [place] [address] Care Team Providers Care Vice President Sales Name Role Phone Irwin Gonsalez DO Primary Care Provider Reason for Visit * Consultation (Urgent) - Closed Specialty Diagnoses / Procedures Referred By Haresh powers Referred To Contact General Surgery Diagnoses Crohn's disease of ileum with other complication Ramonita Matamoros MD [facility] [place] [address] Brent De Los Santos PA [facility] [place] [address] Referral ID Status Reason Start Date Expiration Date V isits Requested Visits Authorized [id number] Closed Consult, Test & Treat 10/03/2019 10/02/2020 1 1 Encounter Details Date Type Department Care Team (Late st Contact Info) Description 10/13/2019 4:00 PM EDT Office Visit General Surgery at [facility] [place] [address] Brent De Los Santos PA Crohn's disease [...] Division of Colon and Rectal Surgery ~ [facility] CC: No chief complaint on file. Referring Provider: Ramonita Matamoros Primary Care Provider: Irwin Gonsalez DO HPI: Laly Toure is a 44-year-old man who lives in [place]. Diagnosed with ileal Crohn's disease at age [...] performed by Dougie Husain Jr., MD at [facility] ??? PRG FLUOROSCOPY EXAM UP TO 1 HR PHY OR OTH HLTH CARE PROV Left 05/23/2016 FLUROSCOPY:UP TO ONE HOUR (WRVU 0.17) performed by Dougie Husain Jr., MD at [facility] ??? PRO COLONOSCOPY, BIOPSY 05/01/2011 COLONOSCOPY FLEXIBLE, WITH BX performed by Ramonita MATAMOROS at [facility]OSCOPY ??? PRO COLONOSCOPY, DIAGNOSTIC 02/25/2013 COLONOSCOPY, DIAGNOSTIC performed by Ramonita Matamoros MD at [facility] ENDOSCOPY ??? PRO COLONOSCOPY, DIAGNOSTIC N/A 02/09/2017 COLONOSCOPY, DIAGNOSTIC performed by Corky Hollingsworth MD at [facility] ENDOS[facility] ? ? PRO CYSTO W URETEROSCOPY &/OR PYELOSCOPY, DX Left 05/02/2016 CYSTOURETEROSCOPY, DIAGNOSTIC (WRVU 5.75) performed by Dougie Husain Jr., MD at [facility] ??? PRO CYSTO/URETEROSCOPY W/LITHOTRIPSY INC INDWELLING STENT INSERTION Left 05/23/2016 CYSTOURETEROSCOPY,DIAGNOSTIC,W/ LITHOTRIPSY INC. INSERTION OF INDWELLING URETERAL STENT (WRVU 8) performed by Dougie Husain Jr., MD at [facility] ??? PRO CYSTOSCOPY, INSERT URETERAL STENT Left 05/02/2016 CYSTO, STENT PLACEMENT (WRVU 2.82) performed by Dougie Husain Jr., MD at [facility] ??? PRO CYSTOSCOPY, REMV CALCULUS, SIMPLE Left 05/23/2016 CYSTO, REMOVAL OF STENT, FOREIGN BODY OR CALCULUS, SIMPLE (WRVU 2.81) performed by Dougie Husain Jr., MD at [facility] ??? PRO CYSTOURETHROSCOPY, URETER CATHETER Left 05/02/2016 CYSTO, RETROGRADE, URETEROPYELOGRAPHY (WRVU 2.37) performed by Dougie Husain Jr., MD at [facility] ??? PRO CYSTOURETHROSCOPY, URETER CATHETER Left 05/23/2016 CYSTO, RETROGRADE, URETEROPYELOGRAPHY (WRVU 2.37) performed by Dougie Husain Jr., MD at [facility] ??? PRO LAP, SURG, COLECTOMY, W/REMVL TERM ILEUM 10/29/2010 ??LAPAROSCOPIC ASSISTED COLECTOMY, PARTIAL, REM.TERMINAL ILEUM performed by TORITO MOHAN at [facility] OR ??? PRO PLACEMENT, SETON N/A 02/26/2016 ANAL SETON PLACEMENT (WRVU 3) performed by Apurva Vivas MD at [facility] OR ??? PRO SURG DIAGNOSTIC EXAM, ANORECTAL N/A 02/26/2016 ANORECTAL EXAM, REQUIRING ANESTHESIA, DIAGNOSTIC (WRVU 1.8) performed by Apurva Vivas MD at [facility] OR Allergies: Patient has no known [...] Operative Note Patient Name: Laly Toure : [id number] MR#: [id number] Case Date: 10/13/2019 Surgeon: MARCOS Garibay Preoperative [...] Date Value Ref Range Status 02/24/2013 Final [facility] Provider: DIONY ESTRADA Pt. Name: LALY TOURE Acc #: [id number] Pt. Col Date: 02/24/2013 /Sex: 1975,(38 years),Male Rec Date: 02/24/2013 LOC: [facility] SURGICAL PATHOLOGY ---Pathologic Diagnosis--- Skin, left mid back, shave biopsy only: Lentiginous compound dysplastic nevus with moderate atypia, focally extending to the peripheral specimen edge (see Comment). CR-0 Dictated by: Guadalupe Guerrero MD Dermatopathology Fellow As the attending physician, I attest that I examined the histologic slides, and confirm Dr. Guadalupe Guerrero' diagnosis. 02/25/13 [facility] 02/26/13 Verified by: Lawrence JONES, PhD, [facility] Dermatopathologist (Electronic Signature) The attending pathologist whose [...] back shave biopsy only (1) Clinical History: [facility] Provider: DIONY ESTRADA Pt. Name: LALY TOURE Acc #: [id number] Pt. Col Date: 02/24/2013 /Sex: 1975,(38 years),Male Rec Date: 02/24/2013 LOC: [facility] 8 mm dark brown macule SURGICAL PATHOLOGY Clinical Diagnosis: Atypical nevus No components found for: CT CHEST No components found for: CT ABDOMEN AND PELVIS COLONOSCOPY Date Value Ref Range Status 02/09/2017 Final [facility] Endoscopy Procedure Date: 02/09/2017 4:16 PM Patient Name: Laly Toure Date of : 1975 Age: 41 Order #: [id number] Instrument Name: [id number] Procedure: Colonoscopy Indications: Disease activity assessment of [...] bowel preparation was evaluated using the BBPS (Warner Bowel Preparation Scale) with scores of: Right [...] as scheduled. Brent De Los Santos PA-C, [facility] 10/13/2019 4:14 PM Division of Colon and Rectal Surgery [facility] Pager [phone] documented in this encounter Plan of Treatment [...] [facility] Note: Patient's specific desired goal: Laly would [...] ileum documented in this encounter Care Teams Vice President Sales Relationship Specialty Start Date End Date Irwin Gonsalez DO [address] [place] [address] PCP - General 05/01/11 03/14/24 documented as of this encounter
--- OUTSIDE RECORDS SUMMARY | 2024-04-18 02:37 | XMS_ITS | Encounter Summary ---
[place] [address] Care Team Providers Care Security Lead Name Role Phone Irwin Gonsalez DO Primary Care Provider Encounter Details Date Type Department Care Team (Late st Contact Info) Description 01/31/2019 Telephone [place] [phone] Michelle Murcia Social History Tobacco Use Types [...] today to reach him? Thanks, Kacey Left [facility] for pt asking him to have his [...] on filedocumented in this encounter Care Teams Security Lead Relationship Specialty Start Date End Date Irwin Gonsalez DO [address] [place] [address] PCP - General 05/01/11 03/14/24 documented as of this encounter
--- OUTSIDE RECORDS SUMMARY | 2024-04-18 02:37 | XMS_ITS | Encounter Summary ---
[place] [address] Care Team Providers Care Children'S Program Coordinator Name Role Phone Irwin Gonsalez DO Primary Care Provider [phone] Reason for Visit * Reason Comments Medication Management Encounter Details Date Type Department Care Team (Late st Contact Info) Description 08/04/2019 Specialty [place] [phone] Mansoor Sapp [facility] Social History Tobacco Use Types Packs/Day Years [...] Plan: Refill Specialty Pharmacy Consultation; Mansoor Sapp [facility] Comprehensive Medication Management (CMM) Igor Monzonjoshua Mr. [...] sponsor pharmacist Visit Type: [facility] Follow-up Method of Contact: by telephone Cognitive Ability: good Cognitive Impairment Status Verified this Year: no Allergies and Drug intolerance: No Known Allergies Medication Reconciliation Discrepancies (compared to [facility] med list) -none New medications: no [...] were made at the appointment and that [facility] is providing recommendations (summary located [...] on filedocumented in this encounter Care Teams Children'S Program Coordinator Relationship Specialty Start Date End Date Irwin Gonsalez DO [address] [facility] [facility] [address] [place] [address] PCP - General 05/01/11 03/14/24 documented as of this encounter
--- OUTSIDE RECORDS SUMMARY | 2024-04-18 02:37 | XMS_ITS | Encounter Summary ---
[place] [address] Care Team Providers Care Commercial Airplane Pilot Name Role Phone Irwin Gonsalez DO Primary Care Provider [phone] Reason for Visit * Reason Onset Date Comments Prior Authorization 05/17/2019 Humira Encounter Details Date Type Department Care Team (Late st Contact Info) Description 05/17/2019 [place] [phone] Marielle Colbert Prior Authorization (Humira) Social History [...] 1975 Patient Address: [address] [facility] [address] (home) Medication: Humira Subscriber Insurance: LEÓN Fax: Physician: Jose Antonio Pandey Sent Via: [facility] Orellana: [id number] Ref/Case/PA#: [id number] Medication Strength Frequency Requested: Humira Pen 40mg/0.4mL [...] on filedocumented in this encounter Care Teams Commercial Airplane Pilot Relationship Specialty Start Date End Date Irwin Gonsalez DO [address] [place] [address] PCP - General 05/01/11 03/14/24 documented as of this encounter
--- OUTSIDE RECORDS SUMMARY | 2024-04-18 02:37 | XMS_ITS | Encounter Summary ---
Author Organization [facility] [place] [address] Care Team Providers Care Import Export Coordinator Name Role Phone Irwin Gonsalez DO Primary Care Provider Reason for Visit * Reason Comments Medication Refill Encounter Details Date Type Department Care Team (Late st Contact Info) Description 04/11/2019 Refill [place] [address] Ramonita Pandey MD [facility] DR [place] [address] Crohn's disease with fistula, unspecified gastrointestinal tract [...] Type Associated Problems Recent Progress Patient-Stated? Author [facility] Medication Compliance and Understanding Patient [...] location documented in this encounter Care Teams Import Export Coordinator Relationship Specialty Start Date End Date Irwin Gonsalez DO [address] [place] [address] PCP - General 05/01/11 03/14/24 documented as of this encounter
--- OUTSIDE RECORDS SUMMARY | 2024-04-18 02:38 | XMS_ITS | Encounter Summary ---
Author Organization [facility] Address [facility] [place] [address] Care Team Providers Care Spray Pilot Name Role Phone Irwin Gonsalez DO Primary Care Provider [phone] Encounter Details Date Type Department Care Team (Late st Contact Info) Description 08/02/2018 [place] [address] Ramonita Pandey MD [facility] [place] [address] Social History Tobacco Use Types Packs/Day Years [...] on filedocumented in this encounter Care Teams Spray Pilot Relationship Specialty Start Date End Date Irwin Gonsalez DO [address] [place] [address] [address] [place] [address] PCP - General 05/01/11 03/14/24 documented as of this encounter
--- OUTSIDE RECORDS SUMMARY | 2024-04-18 02:38 | XMS_ITS | Encounter Summary ---
[place] [address] Care Team Providers Care Record Cutter Name Role Phone Irwin Gonsalez DO Primary Care Provider Reason for Visit * Reason Comments Medication Management Encounter Details Date Type Department Care Team (Late st Contact Info) Description 10/05/2018 Specialty [place] [phone] Edvin Hernandez RPH Social History Tobacco Use [...] Known Allergies Medication Reconciliation Discrepancies (compared to [facility] med list) - none New medications: no [...] 9:39 PM EDT) No Perri Sousa [facility] Note: Patient's [...] on filedocumented in this encounter Care Teams Record Cutter Relationship Specialty Start Date End Date Irwin Gonsalez DO [address] [place] [address] 1 [place] [address] PCP - General 05/01/11 03/14/24 documented as of this encounter
--- OUTSIDE RECORDS SUMMARY | 2024-04-18 02:38 | XMS_ITS | Encounter Summary ---
Author Organization [facility] Address [facility] [place] [address] Care Team Providers Care Game Breeding Farm Manager Name Role Phone Irwin Gonsalez DO Primary Care Provider Reason for Visit * Reason Onset Date Comments Prior Authorization 12/21/2018 Encounter Details Date Type Department Care Team (Late st Contact Info) Description 12/21/2018 Telephone Dermatology at [facility] [address] [place] [address] Erasmo Barrientos MD [facility] [place] [address] Prior Authorization Social History Tobacco Use Types [...] hyperhidrosis, 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. . Status: Form completed and faxed to insurance [employer] Limited Response: TBD * Telephone Encounter - Zainab Sommer - 12/21/2018 10:59 AM EDT Received call from Igor Basurto Kacy stating that he would like to have [...] on filedocumented in this encounter Care Teams Game Breeding Farm Manager Relationship Specialty Start Date End Date Irwin Gonsalez DO [address] [place] [address] PCP - General 05/01/11 03/14/24 documented as of this encounter
--- OUTSIDE RECORDS SUMMARY | 2024-04-18 02:38 | XMS_ITS | Encounter Summary ---
[place] [address] Care Team Providers Care Stock Handler Floorperson Name Role Phone Irwin Gonsalez DO Primary Care Provider Reason for Visit * Reason Onset Date Comments Prior Authorization 08/04/2018 Humira Encounter Details Date Type Department Care Team (Late st Contact Info) Description 08/04/2018 [place] [phone] Brenden Dugan CPHT Prior Authorization (Humira) Social [...] 1975 Patient Address: [address] [facility] [address] (home) Medication: Humira Subscriber Insurance: LEÓN ([facility]) Fax: Physician: Jose Antonio Pandey Sent Via: Verbally Orellana: N/A Ref/Case/PA#: [id number] Medication Strength Frequency Requested: 40mg/0.8mL auto-injector - 40mg every 14 days Qty/Day Supply: 2 Pens/28 Day Supply New Start: No Diagnosis & ICD-10 Code: Crohn's disease of ileum with rectal bleeding K50.011 [facility], [facility] Specialty Pharmacy, Prior Authorization Approval Medication Name: Humira FILLABLE AT [facility], [facility] SPECIALTY PHARMACY? yes APPROVAL DATES: 07/05/2018 - 08/04/2019 SPECIFIC INS REQUIREMENT: N/A CASE/REFERENCE # [id number] APPROVAL NOTIFICATION RECEIVED VIA: Verbally COPAY: $50 [...] on filedocumented in this encounter Care Teams Stock Handler Floorperson Relationship Specialty Start Date End Date Irwin Gonsalez DO [address] [place] [address] PCP - General 05/01/11 03/14/24 documented as of this encounter
--- OUTSIDE RECORDS SUMMARY | 2024-04-18 02:38 | XMS_ITS | Encounter Summary ---
[place] [address] Care Team Providers Care Cable Ferry Operator Name Role Phone Irwin Gonsalez DO Primary Care Provider Reason for Visit * Reason Comments Medication Management Encounter Details Date Type Department Care Team (Late st Contact Info) Description 08/27/2018 Specialty [place] [phone] Deborah Gannon Sunday Social History Tobacco Use [...] beneficiary Provider: plan sponsor pharmacist [place] [facility] [place] Method of Contact: by telephone Cognitive Ability: good Cognitive Impairment Status Verified this Year: no Allergies and Drug intolerance: No Known Allergies Medication Reconciliation Discrepancies (compared to [facility] med list) - None New medications: [...] made at the appointment and that [facility] is providing recommendations (summary located [...] EDT) No Perri Sousa [facility] Note: Patient's specific [...] on filedocumented in this encounter Care Teams Cable Ferry Operator Relationship Specialty Start Date End Date Irwin Gonsalez DO [address] [facility] 1 [place] [address] PCP - General 05/01/11 03/14/24 documented as of this encounter
--- OUTSIDE RECORDS SUMMARY | 2024-04-18 02:38 | XMS_ITS | Encounter Summary ---
Author Organization [facility] [place] [address] Care Team Providers Care Dietary Services Manager Name Role Phone Irwin Gonsalez DO Primary Care Provider Reason for Visit * Reason Comments Medication Refill Encounter Details Date Type Department Care Team (Late st Contact Info) Description 06/01/2018 [place] [address] Ramonita Pandey MD [facility] [place] [address] Social History Tobacco Use Types Packs/Day Years [...] on filedocumented in this encounter Care Teams Dietary Services Manager Relationship Specialty Start Date End Date Irwin Gonsalez DO [address] [place] [address] [address] [facility] 1 [place] [address] PCP - General 05/01/11 03/14/24 documented as of this encounter
--- OUTSIDE RECORDS SUMMARY | 2024-04-18 02:38 | XMS_ITS | Encounter Summary ---
Author Organization [facility] Address [facility] [place] [address] Care Team Providers Care Business System Consultant Name Role Phone Irwin Gonsalez DO Primary Care Provider Encounter Details Date Type Department Care Team (Late st Contact Info) Description 12/24/2018 Telephone Dermatology at [facility] [address] [place] [address] Erasmo Barrientos MD [facility] [address] [place] [address] Social History Tobacco Use Types Packs/Day Years [...] New PA was completed and sent via [employer]. * Telephone Encounter - Cheryl Lopez - 12/24/2018 11:40 AM EDT Rosa from [facility] contacted the [facility] today regarding Igor's PA for Botox. She needs a code for the botox before the PA can go further. Please contact her at [phone] option 3, option 1. Use documented in [...] on filedocumented in this encounter Care Teams Business System Consultant Relationship Specialty Start Date End Date Irwin Gonsalez DO [address] [place] [address] PCP - General 05/01/11 03/14/24 documented as of this encounter
--- OUTSIDE RECORDS SUMMARY | 2024-04-18 02:38 | XMS_ITS | Encounter Summary ---
Author Organization [facility] [place] [address] Care Team Providers Care Inspection Supervisor Name Role Phone Irwin Gonsalez DO Primary Care Provider Reason for Referral * Consultation (Routine) - Closed Specialty Diagnoses / Procedures Referred By Contac t Referred To Contact Dermatology Diagnoses Crohn's disease with complication, unspecified gastrointestinal tract location Page Damico MD [facility] [place] [address] [facility] Dermatology [address] [place] [address] Referral ID Status Reason Start Date Expiration Date V isits Requested Visits Authorized [id number] Closed Consult, Test & Treat 11/01/2018 11/01/2019 1 1 * Diagnostic Test (Routine) - Closed Specialty Diagnoses / Procedures Referred By Contac t Referred To Contact Radiology Diagnoses Crohn's disease with complication, unspecified gastrointestinal tract location Procedures MRI Enterography wwo Contrast Page Damico MD [facility] [place] [address] [place] [address] Referral ID Status Reason Start Date Expiration Date V isits Requested Visits Authorized [id number] Closed Specialty Service Requested 01/19/2019 03/19/2019 1 1 Reason for Visit * Reason Comments Follow-up Encounter Details Date Type Department Care Team (Latest Contact Info) Description 11/01/2018 8:30 AM EDT Office Visit Gastroenterology at [facility] [place] [address] Ramonita Pandey MD [facility] [place] [address] Crohn's disease with complication, unspecified gastrointestinal tract [...] CC: Irwin Gonsalez DO [address] [place] [phone] * Ramonita Pandey MD - 11/01/2018 8:30 [...] office in 6 months. Angelo Pandey MD Trains Service Conductorassembler final Co-Director, [facility] Section of [place] [address] documented in this encounter Plan of Treatment [...] perirectal fistula is not included in the viojb-wj-eeld on today's examination. I have personally reviewed [...] perirectal fistula is not included in the dtaht-hf-ihrf on today's examination. Extra-intestinal findings: No relevant [...] visualized perirectal fistula is not included inthe fcpkv-xl-mcsu on today's examination. Extra-intestinal findings: No relevant [...] perirectal fistula is not included in the khctt-dr-ifhw ontoday's examination. I have personally reviewed the image(s) and the resident's interpretationand agree with the findings, Roxana Moran at 02/28/2019 11:51 AM Thank you for letting us participate in the care of this patient. Forquestions regarding this report, please contact the number below. Electronically signed by: Roxana Moran [facility] [place] ([phone]),at 02/28/2019 11:51 AM L Timothy Pandey MD [facility] MRI ORDERABLES * Differential, Automated (11/01/2018 9:52 AM EDT) Neutrophil % 49.6 % [facility] Neutrophil Absolute 2.58 1.70 - 6.10 x10(3)/[facility] Lymph % 42.1 % [facility] Lymphocytes Abs 2.2 0.9 - 3.2 x10(3)/[facility] Monocyte % 6.5 % [facility] Monocyte Abs 0.3 0.3 - 0.9 x10(3)/[facility] Eos % 1.0 % [facility] Eosinophils Abs 0.0 0.0 - 0.4 x10(3)/[facility] Basophil % 0.4 % [facility] Baso Absolute 0.0 0.0 - 0.1 x10(3)/[facility]OR[facility]ORY Immature Gran % 0.40 % [facility] Comment: Immature granulocytes(IG's)percentage and absolute count will include metamyelocytes, myelocytes, and promyelocytes. Blood smears from CBCs yielding IG's will be scanned manually for concordance. If this scan disagrees with the automated IG or if promyelocytes are noted, a manual differential will be performed. Immature Gran Absolute 0.02 0.00 - 0.04 x10(3)/[facility] Blood specimen (specimen) 11/01/2018 9:52 AM EDT 11/01/2018 10:22 AM EDT Narrative Resulting Agency Comment Spec In Lab L Timothy Pandey MD HEMATOLOGY ORDERABLE S [facility] [place] [address] * Hemogram (11/01/2018 9:52 AM EDT) White Blood Cell 5.2 4.0 - 9.5 x10(3)/[facility] Red Blood Cell 4.77 4.58 - 5.54 x10(6)/[facility] Hemoglobin 14.7 13.7 - 16.5 gm/dL [facility] Hematocrit 43.8 40.5 - 48.5 % [facility] Mean Cell Volume 91.8 82.9 - 93.1 fL [facility] Mean Cell Hemoglobin 30.8 27.5 - 32.1 pg [facility] Mean Cell Hemoglobin Concentration 33.6 32.0 - 35.7 gm/dL [facility] Platelet 270 145 - 357 x10(3)/[facility] RDW Standard Deviation 43.8 36.0 - 45.0 fL [facility] RDW coefficient of variation 12.9 11.4 - 13.8 % [facility] Mean Platelet Volume 9.6 7.6 - 12.9 fL [facility] NRBC% auto 0.0 % [facility] NRBC Absolute 0.000 0.000 - 0.000 x10(3)/mcL [facility] Blood specimen (specimen) 11/01/2018 9:52 AM EDT 11/01/2018 10:22 AM EDT Narrative Resulting Agency Comment Spec In Lab L Timothy Pandey MD HEMATOLOGY ORDERABLE S Performing Organization Address City/[facility]/ZIP Co de Phone Number [facility] [place] [address] * (ABNORMAL) Hepatic Function Panel (11/01/2018 9:52 AM EDT) Protein, Total 7.4 6.1 - 8.0 gm/dL [facility] Albumin 4.4 3.2 - 5.2 gm/dL [facility] Aspartate Aminotransferase 40(H) 0 - 39 unit/L [facility] Alanine Aminotransferase 66(H) 0 - 55 unit/L [facility] Alkaline Phosphatase 51 40 - 130 unit/L [facility] Bilirubin, Total 1.3 0.2 - 1.3 mg/dL [facility] Bilirubin, Direct 0.2 0.0 - 0.3 mg/dL [facility] Blood specimen (specimen) 11/01/2018 9:52 AM EDT 11/01/2018 10:22 AM EDT Narrative Resulting Agency Comment Spec In Lab L Timothy Pandey MD CHEMISTRY ORDERABLES Performing Organization Address City/[facility]/ZIP Co de Phone Number [facility] [place] [address] * CRP, acute inflammation (11/01/2018 9:52 AM EDT) C-Reactive Protein 0.2 <=4.9 mg/L [facility] Blood specimen (specimen) 11/01/2018 9:52 AM EDT 11/01/2018 10:22 AM EDT Narrative Resulting Agency Comment Spec In Lab L Timothy Pandey MD CHEMISTRY ORDERABLES Performing Organization Address City/State/[facility] Co de Phone Number [facility] [place] [address] documented in this encounter Visit Diagnoses Diagnosis Crohn's disease with complication, unspecified gastrointestinal tract location Crohn's disease of ileum with other complication Crohn's disease with complication, unspecified gastrointestinal tract location documented in this encounter Care Teams Inspection Supervisor Relationship Specialty Start Date End Date Irwin Gonsalez DO [address] [place] [address] PCP - General 05/01/11 03/14/24 documented as of this encounter
--- OUTSIDE RECORDS SUMMARY | 2024-04-18 02:38 | XMS_ITS | Encounter Summary ---
Author Organization [facility] Address [facility] [place] [address] Care Team Providers Care Tumbling And Rolling Supervisor Name Role Phone Irwin Gonsalez DO Primary Care Provider Encounter Details Date Type Department Care Team (Late st Contact Info) Description 06/09/2018 Ref[place] [address] Ramonita Pandey MD [facility] [place] [address] Social History Tobacco Use Types Packs/Day Years [...] Problems Recent Progress Patient-Stated? Author [facility] Medication Compliance and Understanding Patient Facing Action Plan On track( 017 9:39 PM EDT) No Perri Sousa, [facility] Note: Patient's specific desired [...] on filedocumented in this encounter Care Teams Tumbling And Rolling Supervisor Relationship Specialty Start Date End Date Irwin Gonsalez DO [address] [place] [address] [address] [place] [address] PCP - General 05/01/11 03/14/24 documented as of this encounter
--- OUTSIDE RECORDS SUMMARY | 2024-04-18 02:38 | XMS_ITS | Encounter Summary ---
Author Organization [facility] Address [facility] [place] [address] Care Team Providers Care Lens Inspector Name Role Phone Irwin Gonsalez DO Primary Care Provider Encounter Details Date Type Department Care Team (Late st Contact Info) Description 12/27/2018 [place] [address] Ramonita Pandey MD [facility] [place] [address] Social History Tobacco Use Types Packs/Day Years [...] Type Associated Problems Recent Progress Patient-Stated? Author [facility] Medication Compliance and Understanding Patient Facing Action [...] on filedocumented in this encounter Care Teams Lens Inspector Relationship Specialty Start Date End Date Irwin Gonsalez DO [address] [place] [address] [address] [place] [address] PCP - General 05/01/11 03/14/24 documented as of this encounter
--- OUTSIDE RECORDS SUMMARY | 2024-04-18 02:38 | XMS_ITS | Encounter Summary ---
[place] [address] Care Team Providers Care Oracle Architect Name Role Phone Irwin Gonsalez DO Primary Care Provider [phone] Reason for Visit * Reason Comments Medication Management Encounter Details Date Type Department Care Team (Late st Contact Info) Description 08/02/2018 Specialty Pharmacy [place] [phone] Airam Velásquez RPH Social History Tobacco Use [...] Provider: plan sponsor pharmacist Visit Type: [facility] Follow-up Method of Contact: by telephone Cognitive Ability: good Cognitive Impairment Status Verified this Year: no Allergies and Drug intolerance: No Known Allergies Medication Reconciliation Discrepancies (compared to [facility] med list) -none New medications: [...] appointment and that [facility] is providing recommendations (summary located [...] 017 9:39 PM EDT) No Perri Sousa [facility] Note: Patient's specific desired [...] on filedocumented in this encounter Care Teams Oracle Architect Relationship Specialty Start Date End Date Irwin Gonsalez DO [address] [place] [address] PCP - General 05/01/11 03/14/24 documented as of this encounter
--- OUTSIDE RECORDS SUMMARY | 2024-04-18 02:38 | XMS_ITS | Encounter Summary ---
[place] [address] Care Team Providers Care Pcat Instructor Name Role Phone Irwin Gonsalez DO Primary Care Provider Encounter Details Date Type Department Care Team (Late st Contact Info) Description 12/27/2018 [place] [address] Delisa Barrientos Social History Tobacco Use Types [...] Known Allergies Medication Reconciliation Discrepancies (compared to [facility] med list) No New medications: No [...] on filedocumented in this encounter Care Teams Pcat Instructor Relationship Specialty Start Date End Date Irwin Gonsalez DO [address] [place] [address] PCP - General 05/01/11 03/14/24 documented as of this encounter
--- OUTSIDE RECORDS SUMMARY | 2024-04-18 02:38 | XMS_ITS | Encounter Summary ---
[place] [address] Care Team Providers Care Ore Roaster Name Role Phone Irwin Gonsalez DO Primary Care Provider [phone] Encounter Details Date Type Department Care Team (Late st Contact Info) Description 11/01/2018 Orders [place] [address] Shannan Barnard, RN Crohn's disease with complication, [...] 017 9:39 PM EDT) No Perri Sousa, [facility] Note: Patient's specific [...] location documented in this encounter Care Teams Ore Roaster Relationship Specialty Start Date End Date Irwin Gonsalez DO [address] [place] [address] PCP - General 05/01/11 03/14/24 documented as of this encounter
--- OUTSIDE RECORDS SUMMARY | 2024-04-18 02:38 | XMS_ITS | Encounter Summary ---
[place] [address] Care Team Providers Care Bag Shop Worker Name Role Phone Irwin Gonsalez DO Primary Care Provider Encounter Details Date Type Department Care Team (Late st Contact Info) Description 06/09/2018 Specialty [place] [address] Power Billingsley [facility] Social History Tobacco Use Types Packs/Day [...] calculate BMI. Medication Reconciliation Discrepancies (compared to [facility] med list) none Medication Adherence Patient reported [...] Does the patient have a primary physician assistant primary care? no Patient has emergency contact on file: Yes Does patient need referral to social science manager: No Does patient need referral to advocacy [...] Date Received: 05/23/16 Delivery Method: shipped with [employer] -Patient returned signed Rights & Responsibilities: Yes [...] were made at the appointment and that [facility] isproviding recommendations (summary located at top [...] PM EDT) No Perri Sousa [facility] Note: Patient's specific [...] on filedocumented in this encounter Care Teams Bag Shop Worker Relationship Specialty Start Date End Date Irwin Gonsalez DO [address] [place] [address] PCP - General 05/01/11 03/14/24 documented as of this encounter
--- OUTSIDE RECORDS SUMMARY | 2024-04-18 02:38 | XMS_ITS | Encounter Summary ---
[place] [address] Care Team Providers Care Language Arts Teacher Name Role Phone Irwin Gonsalez DO Primary Care Provider Reason for Visit * Reason Comments Medication Management Encounter Details Date Type Department Care Team (Late st Contact Info) Description 07/08/2018 Specialty [place] [phone] Adelaide Sánchez Social History Tobacco Use Types [...] beneficiary Provider: plan sponsor pharmacist Visit Type: [facility] Follow-up Method of Contact: by telephone Cognitive [...] were made at the appointment and that [facility] is providing recommendations (summary located at top [...] 017 9:39 PM EDT) No Perri Sousa [facility] Note: Patient's specific desired [...] on filedocumented in this encounter Care Teams Language Arts Teacher Relationship Specialty Start Date End Date Irwin Gonsalez DO [address] [place] [address] PCP - General 05/01/11 03/14/24 documented as of this encounter
--- OUTSIDE RECORDS SUMMARY | 2024-04-18 02:38 | XMS_ITS | Encounter Summary ---
[place] [address] Care Team Providers Care Tight Barrel Inspector Name Role Phone Irwin Gonsalez DO Primary Care Provider Encounter Details Date Type Department Care Team (Late st Contact Info) Description 11/01/2018 [place] [phone] Caroline Townsend, [facility] Social History Tobacco Use Types Packs/Day [...] Allergies Medication Reconciliation Discrepancies (compared to [facility] med list) No New medications: No [...] on filedocumented in this encounter Care Teams Tight Barrel Inspector Relationship Specialty Start Date End Date Irwin Gonsalez DO [address] [place] [address] [address] [facility] 1 [place] [address] PCP - General 05/01/11 03/14/24 documented as of this encounter
--- OUTSIDE RECORDS SUMMARY | 2024-04-18 02:38 | XMS_ITS | Encounter Summary ---
[place] [address] Care Team Providers Care Powder Expert Name Role Phone Irwin Gonsalez DO Primary Care Provider [phone] Reason for Visit * Reason Comments Medication Management Patient Education Encounter Details Date Type Department Care Team (Late st Contact Info) Description 11/29/2018 Specialty [place] [phone] Maliha Sutherland RPH Social History Tobacco Use [...] calculate BMI. Medication Reconciliation Discrepancies (compared to [facility] med list) no Medication Adherence Patient [...] beneficiary Provider: plan sponsor pharmacist Visit Type: [facility] Follow-up Method of Contact: by telephone Cognitive [...] preventative care discussed, reminder to refill or shredder picker medication discussed, self-monitoring discussed, timing of [...] preventative care discussed, reminder to refill or shredder picker medication discussed, self-monitoring discussed, timing of [...] Does the patient have a primary care information associate? no Patient has emergency contact on file: Yes Does patient need referral to manager social: No Does patient need referral to advocacy [...] were made at the appointment and that [facility] isproviding recommendations (summary located at top [...] 9:39 PM EDT) No Perri Sousa [facility] Note: Patient's specific [...] on filedocumented in this encounter Care Teams Powder Expert Relationship Specialty Start Date End Date Irwin Gonsalez DO [address] [place] [address] PCP - General 05/01/11 03/14/24 documented as of this encounter
--- OUTSIDE RECORDS SUMMARY | 2024-04-18 02:38 | XMS_ITS | Encounter Summary ---
[place] [address] Care Team Providers Care Head Irrigator Name Role Phone Irwin Gonsalez DO Primary Care Provider [phone] Encounter Details Date Type Department Care Team (Late st Contact Info) Description 11/01/2018 Telephone [place] [phone] Shannan Barnard, RN Social History Tobacco Use [...] are not missing??something else. Orders faxed to [facility] Message left for pt to call [...] filedocumented in this encounter Care Teams Head Irrigator Relationship Specialty Start Date End Date Irwin Gonsalez DO [address] [place] [address] [address] [facility] 1 [place] [address] PCP - General 05/01/11 03/14/24 documented as of this encounter
--- OUTSIDE RECORDS SUMMARY | 2024-04-18 02:39 | XMS_ITS | Encounter Summary ---
Author Organization [facility] [place] [address] Care Team Providers Care Signal System Testing Maintainer Name Role Phone Irwin Gonsalez DO Primary Care Provider Reason for Visit * Auth/Cert Specialty Diagnoses / Procedures Referred By Haresh powers Referred To Contact Diagnoses Restage Crohn's disease (IVCS) Procedures PRO COLONOSCOPY, DIAGNOSTIC COLONOSCOPY, DIAGNOSTIC Referral ID Status Reason Start Date Expiration Date Visits Re quested Visits Authorized [id number] 1 1 Encounter Details Date Type Department Care Team (Late st Contact Info) Description 02/09/2017 3:30 PM EST - 02/09/2017 4:15 PM EST Surgery [place] [phone] Corky Hollingsworth MD [facility] [place] [address] COLONOSCOPY, DIAGNOSTIC (WRVU 3.26) Social History Tobacco [...] to be checked. Thursday-Thursday Same Day Endo [phone] Otherwise contact [phone] and ask to speak to the motor vehicle licence examiner director of transportation Follow up care is a garcia part [...] ??? Perianal abscess, right posterior K61.0 ??? [id number] K60.3 Medications: Reviewed in EDH No Known [...] 017 9:39 PM EDT) No Perri Sousa, [facility] Note: Patient's specific desired [...] * COLONOSCOPY (02/09/2017 4:16 PM EST) COLONOSCOPY [facility] Procedure Date: 02/09/2017 4:16 PM ? Patient Name: Igor Woodruff ? Date of : 1975 ? Age: 41 ? Order #: [id number] ? Instrument Name: [id number] ? Procedure: ? Colonoscopy Indications: ? Disease [...] MD, Melanie Murray ? Bharathi Perez Referring : ?Irwin Gonsalez DO Requesting Provider: Angelo Pandey [...] preparation was evaluated using ? the BBPS ([place] Bowel Preparation ? Scale) with scores of: [...] RN) documented in this encounter Care Teams Signal System Testing Maintainer Relationship Specialty Start Date End Date Irwin Gonsalez DO [address] [place] [address] [place] [address] PCP - General 05/01/11 03/14/24 documented as of this encounter
--- OUTSIDE RECORDS SUMMARY | 2024-04-18 02:39 | XMS_ITS | Encounter Summary ---
[place] [address] Care Team Providers Care Shoe Lay Out Planner Name Role Phone Irwin Gonsalez DO Primary Care Provider Encounter Details Date Type Department Care Team (Late st Contact Info) Description 04/22/2018 Telephone [place] [phone] Sabas Gonzales RN Social History Tobacco Use [...] patient. Labs very overdue. Orders at [facility]. documented in this encounter Plan of Treatment [...] filedocumented in this encounter Care Teams Shoe Lay Out Planner Relationship Specialty Start Date End Date Irwin Gonsalez DO [address] [place] [address] PCP - General 05/01/11 03/14/24 documented as of this encounter
--- OUTSIDE RECORDS SUMMARY | 2024-04-18 02:39 | XMS_ITS | Encounter Summary ---
[place] [address] Care Team Providers Care Barrel Rib Matting Machine Operator Name Role Phone Iriwn Gonsalez DO Primary Care Provider Reason for Visit * Reason Comments Medication Refill Encounter Details Date Type Department Care Team (Late st Contact Info) Description 01/18/2018 Specialty [place] [phone] Swetha York Sunday Social History Tobacco Use [...] filedocumented in this encounter Care Teams Barrel Rib Matting Machine Operator Relationship Specialty Start Date End Date Irwin Gonsalez DO [address] [place] [address] PCP - General 05/01/11 03/14/24 documented as of this encounter
--- OUTSIDE RECORDS SUMMARY | 2024-04-18 02:39 | XMS_ITS | Encounter Summary ---
[place] [address] Care Team Providers Care Sheriff Name Role Phone Irwin Gonsalez DO Primary Care Provider Reason for Visit * Reason Comments Medication Management Encounter Details Date Type Department Care Team (Late st Contact Info) Description 05/08/2017 Specialty [place] [phone] Edvin Hernandez RPH Social History Tobacco Use [...] Known Allergies Medication Reconciliation Discrepancies (compared to [facility] med list) - none Medication Adherence Patient [...] at the appointment and that [facility] is providing recommendations (summary located at top [...] track( 017 9:39 PM EDT) Perri Hernandez [facility] Note: Patient's specific [...] on filedocumented in this encounter Care Teams Sheriff Relationship Specialty Start Date End Date Irwin Gonsalez DO [address] [place] [address] PCP - General 05/01/11 03/14/24 documented as of this encounter
--- OUTSIDE RECORDS SUMMARY | 2024-04-18 02:39 | XMS_ITS | Encounter Summary ---
[place] [address] Care Team Providers Care Stopperer Assembler Name Role Phone Irwin Gonsalez DO Primary Care Provider Reason for Visit * Reason Onset Date Comments Medication Refill 02/03/2018 Encounter Details Date Type Department Care Team (Late st Contact Info) Description 02/03/2018 Ref[place] [phone] Shannan Barnard, RN Social History Tobacco Use [...] on filedocumented in this encounter Care Teams Stopperer Assembler Relationship Specialty Start Date End Date Irwin Gonsalez DO [address] [place] [address] PCP - General 05/01/11 03/14/24 documented as of this encounter
--- OUTSIDE RECORDS SUMMARY | 2024-04-18 02:39 | XMS_ITS | Encounter Summary ---
[place] [address] Care Team Providers Care Weekend Caregiver Name Role Phone Irwin Gonsalez DO Primary Care Provider [phone] Encounter Details Date Type Department Care Team (Late st Contact Info) Description 08/03/2017 [place] [address] SolomonPerri Social History Tobacco Use Types Packs/Day [...] Perri Lujan - 08/03/2017 11:51 AM EDT [facility] Specialty Pharmacy Prior Authorization Medication: Humira RX Insurance: [employer] Insurance Phone #: [phone] Insurance Fax #: ID #: [id number] Spoke With: MARCOS Reference #: [id number] Date MARCOS Sent: 08/03/2017 Approval Date: Approved [...] on filedocumented in this encounter Care Teams Weekend Caregiver Relationship Specialty Start Date End Date Irwin Gonsalez DO [address] [place] [place] [address] PCP - General 05/01/11 03/14/24 documented as of this encounter
--- OUTSIDE RECORDS SUMMARY | 2024-04-18 02:39 | XMS_ITS | Encounter Summary ---
Author Organization [facility] [place] [address] Care Team Providers Care Boat Outboard Engine Mechanic Name Role Phone Irwin Gonsalez DO Primary Care Provider [phone] Reason for Visit * Reason Comments Medication Refill Encounter Details Date Type Department Care Team (Late st Contact Info) Description 09/05/2017 [place] [address] Ramonita Pandey MD [facility] [place] [address] Social History Tobacco Use Types Packs/Day Years [...] Type Associated Problems Recent Progress Patient-Stated? Author [facility] Medication Compliance and Understanding Patient Facing [...] on filedocumented in this encounter Care Teams Boat Outboard Engine Mechanic Relationship Specialty Start Date End Date Irwin Gonsalez DO [address] [place] [address] [address] [facility] 1 [place] [address] PCP - General 05/01/11 03/14/24 documented as of this encounter
--- OUTSIDE RECORDS SUMMARY | 2024-04-18 02:39 | XMS_ITS | Encounter Summary ---
Author Organization [facility] Address [facility] [place] [address] Care Team Providers Care Garage Manager Name Role Phone Irwin Gonsalez DO Primary Care Provider [phone] Reason for Visit * Reason Comments Medication Refill Encounter Details Date Type Department Care Team (Late st Contact Info) Description 04/22/2018 Ref[place] [address] Tan Garcia MD [facility] [address] Social History Tobacco Use Types Packs/Day Years [...] on filedocumented in this encounter Care Teams Garage Manager Relationship Specialty Start Date End Date Irwin Gonsalez DO [address] [place] [place] [address] PCP - General 05/01/11 03/14/24 documented as of this encounter
--- OUTSIDE RECORDS SUMMARY | 2024-04-18 02:39 | XMS_ITS | Encounter Summary ---
[place] [address] Care Team Providers Care Filter Washer Name Role Phone Irwin Gonsalez DO Primary Care Provider Encounter Details Date Type Department Care Team (Late st Contact Info) Description 07/31/2017 Telephone [place] [phone] Mindy Chamberlain Social History Tobacco Use Types [...] PM EDT) Perri Hernandez, [facility] ED [...] on filedocumented in this encounter Care Teams Filter Washer Relationship Specialty Start Date End Date Irwin Gonsalez DO [address] [place] [address] PCP - General 05/01/11 03/14/24 documented as of this encounter
--- OUTSIDE RECORDS SUMMARY | 2024-04-18 02:39 | XMS_ITS | Encounter Summary ---
Author [place] [address] Care Team Providers Care Federal Appellate Clerk Name Role Phone Irwin Gonsalez DO Primary Care Provider Reason for Visit * Reason Comments Medication Management Encounter Details Date Type Department Care Team (Late st Contact Info) Description 04/13/2018 Specialty [place] [phone] Karishma Muir [facility] Social [...] plan sponsor pharmacist Visit Type: [facility] Follow-up Method of Contact: by telephone Cognitive [...] 9:39 PM EDT) No Perri Sousa [facility] Note: Patient's specific [...] on filedocumented in this encounter Care Teams Federal Appellate Clerk Relationship Specialty Start Date End Date Irwin Gonsalez DO [address] [place] [address] PCP - General 05/01/11 03/14/24 documented as of this encounter
--- OUTSIDE RECORDS SUMMARY | 2024-04-18 02:39 | XMS_ITS | Encounter Summary ---
[place] [address] Care Team Providers Care Diagram Clerk Name Role Phone Irwin Gonsalez DO Primary Care Provider Reason for Visit * Reason Comments Medication Management Encounter Details Date Type Department Care Team (Late st Contact Info) Description 08/31/2017 Specialty [place] [phone] Karishma Muir [facility] Social History Tobacco Use Types [...] this encounter Progress Notes * Karishma Noel [facility] - 08/31/2017 10:29 AM EDT Clinical Management Plan: Refill of Humira Specialty Pharmacy Consultation; Karishma Noel [facility] Comprehensive Medication Management (CMM) Igor [...] Discrepancies (compared to [facility] med list) -none New medications: no [...] at the appointment and that [facility] is providing recommendations (summary located at top [...] PM EDT) No Perri Sousa [facility] Note: Patient's [...] on filedocumented in this encounter Care Teams Diagram Clerk Relationship Specialty Start Date End Date Irwin Gonsalez DO [address] [place] [address] 1 [place] [address] PCP - General 05/01/11 03/14/24 documented as of this encounter
--- OUTSIDE RECORDS SUMMARY | 2024-04-18 02:39 | XMS_ITS | Encounter Summary ---
[place] [address] Care Team Providers Care Metal Bonding Press Operator Name Role Phone Irwin Gonsalez DO Primary Care Provider [phone] Reason for Visit * Reason Comments Medication Management Encounter Details Date Type Department Care Team (Late st Contact Info) Description 06/09/2017 Specialty [place] [phone] Adelaide Sánchez Social History Tobacco Use Types [...] (compared to [facility] med list) -none New medications: no New [...] provider review and follow up. Adelaide Gonzales 06/09/17 8:38 AM documented in this encounter Plan of Treatment Not on file documented as of this encounter Goals Goal Patient Goal Type Associated Problems Recent Progress Patient-Stated? Author [facility] Medication Compliance and Understanding Patient Facing Action Plan On track( 017 9:39 PM EDT) Perri Hernandez [facility] Note: Patient's [...] on filedocumented in this encounter Care Teams Metal Bonding Press Operator Relationship Specialty Start Date End Date Irwin Gonsalez DO [address] [place] [address] [address] [place] [address] PCP - General 05/01/11 03/14/24 documented as of this encounter
--- OUTSIDE RECORDS SUMMARY | 2024-04-18 02:39 | XMS_ITS | Encounter Summary ---
Author Organization [facility] Address [facility] [place] [address] Care Team Providers Care World Renowned Chef And Restaurant Owner Name Role Phone Irwin Gonsalez DO Primary Care Provider [phone] Encounter Details Date Type Department Care Team (Late st Contact Info) Description 11/30/2017 Telephone Dermatology at [facility] [address] [place] [address] Loly Alvarez MD [facility] [address] [place] [address] Social History Tobacco Use Types Packs/Day Years [...] on filedocumented in this encounter Care Teams World Renowned Chef And Restaurant Owner Relationship Specialty Start Date End Date rIwin Gonsalez DO [address] [place] [address] PCP - General 05/01/11 03/14/24 documented as of this encounter
--- OUTSIDE RECORDS SUMMARY | 2024-04-18 02:39 | XMS_ITS | Encounter Summary ---
[place] [address] Care Team Providers Care Rad Technologist Name Role Phone Irwin Gonsalez DO Primary Care Provider [phone] Reason for Visit * Reason Comments Medication Management Encounter Details Date Type Department Care Team (Late st Contact Info) Description 05/10/2018 Specialty [place] [phone] Karishma Muir [facility] Social History Tobacco [...] this encounter Progress Notes * Karishma Noel [facility] - 05/10/2018 2:21 PM EST Clinical Management Plan: Refill of Humira Specialty Pharmacy Consultation; Karishma Noel [facility] Comprehensive Medication Management (CMM) Igor [...] beneficiary Provider: plan sponsor pharmacist Visit Type: [facility] Follow-up Method of Contact: by telephone Cognitive Ability: good Cognitive Impairment Status Verified this Year: no Allergies and Drug intolerance: No Known Allergies Medication Reconciliation Discrepancies (compared to [facility] med list) -none New medications: no [...] appointment and that [facility] is providing recommendations (summary located at top [...] 017 9:39 PM EDT) No Perri Sousa [facility] Note: Patient's specific [...] on filedocumented in this encounter Care Teams Rad Technologist Relationship Specialty Start Date End Date Irwin Gonsalez DO [address] [place], [place] [address]Y [facility] 1 [place] [address] PCP - General 05/01/11 03/14/24 documented as of this encounter
--- OUTSIDE RECORDS SUMMARY | 2024-04-18 02:39 | XMS_ITS | Encounter Summary ---
[place] [address] Care Team Providers Care Phlebotomist Medical Lab Assistant Name Role Phone Irwin Gonsalez DO Primary Care Provider Encounter Details Date Type Department Care Team (Late st Contact Info) Description 02/03/2018 Telephone [place] [phone] Shannan Barnard, RN Social History Tobacco Use [...] on filedocumented in this encounter Care Teams Phlebotomist Medical Lab Assistant Relationship Specialty Start Date End Date Irwin Gonsalez DO [address] [place] [address] PCP - General 05/01/11 03/14/24 documented as of this encounter
--- OUTSIDE RECORDS SUMMARY | 2024-04-18 02:39 | XMS_ITS | Encounter Summary ---
[place] [address] Care Team Providers Care Technician'S Helper Name Role Phone Irwin Gonsalez DO Primary Care Provider Reason for Visit * Reason Comments Medication Management Encounter Details Date Type Department Care Team (Late st Contact Info) Description 10/27/2017 Specialty [place] [phone] Edvin Hernandez RPH Social History Tobacco Use [...] Known Allergies Medication Reconciliation Discrepancies (compared to [facility] med list) - none New medications: [...] made at the appointment and that [facility] is providing recommendations (summary located [...] track( 017 9:39 PM EDT) No Perri Souas [facility] Note: Patient's [...] on filedocumented in this encounter Care Teams Technician'S Helper Relationship Specialty Start Date End Date Irwin Gonsalez DO [address] [place] [address] 1 [place] [address] PCP - General 05/01/11 03/14/24 documented as of this encounter
--- OUTSIDE RECORDS SUMMARY | 2024-04-18 02:39 | XMS_ITS | Encounter Summary ---
[place] [address] Care Team Providers Care Automobile Damage Appraiser Name Role Phone Irwin Gonsalez DO Primary Care Provider Reason for Visit * Reason Comments Medication Management Encounter Details Date Type Department Care Team (Late st Contact Info) Description 12/18/2017 Specialty [place] [phone] Karishma Muir [facility] Social History Tobacco Use Types Packs/Day Years [...] this encounter Progress Notes * Karishma Noel [facility] - 12/18/2017 9:43 AM EDT Clinical Management Plan: Refill of Humira Specialty Pharmacy Consultation; Karishma Noel [facility] Comprehensive Medication Management (CMM) Igor Sherine Mayitorobertjoshua [...] Known Allergies Medication Reconciliation Discrepancies (compared to [facility] med list) -none New medications: no [...] on filedocumented in this encounter Care Teams Automobile Damage Appraiser Relationship Specialty Start Date End Date Irwin Gonsalez DO [address] [place] [address] PCP - General 05/01/11 03/14/24 documented as of this encounter
--- OUTSIDE RECORDS SUMMARY | 2024-04-18 02:39 | XMS_ITS | Encounter Summary ---
Author Organization [facility] Address [facility] [place] [address] Care Team Providers Care Ultrasound Manager Name Role Phone Irwin Gonsalez DO Primary Care Provider Reason for Visit * Reason Comments Excessive Sweating Encounter Details Date Type Department Care Team (Late st Contact Info) Description 12/28/2017 8:00 AM EDT Office Visit Dermatology at [facility] [address] [place] [address] Loly Alvarez MD [facility] [address] [place] [address] Hyperhidrosis Social History Tobacco Use Types Packs/Day [...] MD PATIENT PREFERENCES: -prefers to be called: Kobe -ok to communicate detailed result information by: [...] units??in each axillae. - No complications. Lot: [id number] Exp: 03/2020 FOLLOW UP WHEN: prn FOR [...] encounter. Loly Alvarez MD Section of Dermatology [facility] Igor Monzonjoshua 12/28/2017 [id number] documented in this encounter Plan of Treatment [...] 100 Units, Intramuscular, ONCE, 1 dose, On 12/28/17 at 0845, Routine Given 12/28/2017 8:25 AM EDT 100 Units 20-Other (document in comment section) documented in this encounter Care Teams Ultrasound Manager Relationship Specialty Start Date End Date Irwin Gonsalez DO [address] [place] [address] PCP - General 05/01/11 03/14/24 documented as of this encounter
--- OUTSIDE RECORDS SUMMARY | 2024-04-18 02:39 | XMS_ITS | Encounter Summary ---
[place] [address] Care Team Providers Care Lawn Sprinkler Servicer Name Role Phone Irwin Gonsalez DO Primary Care Provider Reason for Visit * Reason Comments Medication Refill Encounter Details Date Type Department Care Team (Late st Contact Info) Description 02/16/2018 Specialty [place] [phone] Swetha York RPH Social History Tobacco Use [...] PM EDT) No Perri Sousa [facility] Note: Patient's specific desired [...] on filedocumented in this encounter Care Teams Lawn Sprinkler Servicer Relationship Specialty Start Date End Date Irwin Gonsalez DO [address] [place] [address] PCP - General 05/01/11 03/14/24 documented as of this encounter
--- OUTSIDE RECORDS SUMMARY | 2024-04-18 02:39 | XMS_ITS | Encounter Summary ---
[place] [address] Care Team Providers Care Doughnut Machine Operator Helper Name Role Phone Irwin Gonsalez DO Primary Care Provider Reason for Visit * Reason Comments Medication Management Encounter Details Date Type Department Care Team (Late st Contact Info) Description 03/30/2017 Specialty [place] [phone] Adelaide Sánchez Social History Tobacco Use Types [...] (compared to [facility] med list) -none New medications: no New medical conditions: no New allergies: no Adherence: Medication Adherence Patient reported X missed doses in the last month: 0 - reported a delay in dose a while ago to our medical supply technician Any gaps in refill history greater [...] PM EDT) No Perri Sousa [facility] Note: Patient's [...] on filedocumented in this encounter Care Teams Doughnut Machine Operator Helper Relationship Specialty Start Date End Date Irwin Gonsalez DO [address] [place] [address] 1 [place] [address] PCP - General 05/01/11 03/14/24 documented as of this encounter
--- OUTSIDE RECORDS SUMMARY | 2024-04-18 02:39 | XMS_ITS | Encounter Summary ---
[place] [address] Care Team Providers Care Auto Bumper Straightener Name Role Phone Irwin Gonsalez DO Primary Care Provider Encounter Details Date Type Department Care Team (Late st Contact Info) Description 03/15/2018 [place] [address] Shannan Barnard, RN Crohn's disease of ileum [...] Type Associated Problems Recent Progress Patient-Stated? Author [facility] Medication Compliance and Understanding Patient Facing [...] complication documented in this encounter Care Teams Auto Bumper Straightener Relationship Specialty Start Date End Date Irwin Gonsalez DO [address] [place] [address] PCP - General 05/01/11 03/14/24 documented as of this encounter
--- OUTSIDE RECORDS SUMMARY | 2024-04-18 02:39 | XMS_ITS | Encounter Summary ---
Author Organization [facility] Address [facility] [place] [address] Care Team Providers Care Television Repair Teacher Name Role Phone Irwin Gonsalez DO Primary Care Provider Encounter Details Date Type Department Care Team (Late st Contact Info) Description 02/10/2017 Telephone Dermatology at [facility] [address] [place] [address] Bharathi Foote MD [facility] [place] [address] Social History Tobacco Use Types Packs/Day Years [...] Notes * Telephone Encounter - Awa Tomlin F - 02/10/2017 9:14 AM EST I just received notice that Igor J Kacy has been approved his 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 Benefits can be provided subject to the terms and condition sof the member's contract with [facility] and [facility]. The coverage is effective starting 12/31/2016 to [...] on filedocumented in this encounter Care Teams Television Repair Teacher Relationship Specialty Start Date End Date Irwin Gonsalez DO [address] [place] [address] PCP - General 05/01/11 03/14/24 documented as of this encounter
--- OUTSIDE RECORDS SUMMARY | 2024-04-18 02:39 | XMS_ITS | Encounter Summary ---
[place] [address] Care Team Providers Care Colorist Name Role Phone Irwin Gonsalez DO Primary Care Provider Reason for Visit * Reason Comments Medication Management Encounter Details Date Type Department Care Team (Late st Contact Info) Description 08/03/2017 Specialty [place] [phone] Karishma Muir [facility] Social History Tobacco Use Types Packs/Day [...] this encounter Progress Notes * Karishma Noel [facility] - 08/03/2017 10:37 AM EDT Clinical Management Plan: Refill of Humira Specialty Pharmacy Consultation; Karishma Noel [facility] Comprehensive Medication Management (CMM) Igor Sherine Mayitorobertjoshua [...] (compared to [facility] med list) -none New medications: no New [...] were made at the appointment and that [facility] is providing recommendations (summary located [...] on filedocumented in this encounter Care Teams Colorist Relationship Specialty Start Date End Date Irwin Gonsalez DO [address] [place] [address] [address] [place] [address] PCP - General 05/01/11 03/14/24 documented as of this encounter
--- OUTSIDE RECORDS SUMMARY | 2024-04-18 02:39 | XMS_ITS | Encounter Summary ---
Author Organization [facility] Address [facility] [place] [address] Care Team Providers Care Regional Account Manager Name Role Phone Irwin Gonsalez DO Primary Care Provider Reason for Visit * Reason Comments Follow-up Encounter Details Date Type Department Care Team (Late st Contact Info) Description 10/19/2017 10:00 AM EDT Office Visit [place] [address] Ramonita Pandey MD [facility] [place] [address] Crohn's disease of ileum with rectal bleeding [...] also fecal calprotectin - take requisition to [facility] and obtain specimen cups and equipment there. [...] We will submit stool samples to her [facility] in [place]. We will check his labs today including [...] also fecal calprotectin - take requisition to [facility] and obtain specimen cups and equipment there. # Please have your flu shot when available in the fall. # Follow-up in out clinic in 4 months with Thi Salgado APRN and then with me in 8-10 months. 20 min of this 30 min [id number] visit was spent counseling the patient in the issues outlined above. ?? Angelo Pandey MD Load Haul Dump Operatorfirst front ventilator Section of Gastroenterology [place] [address] CC: Irwin Gonsalez DO [address] [place] [phone] documented in this encounter Plan of Treatment [...] 11:47 AM EDT) Neutrophil % 48.2 % [facility] Neutrophil Absolute 2.42 1.70 - 6.10 x10(3)/[facility] Lymph % 44.0 % [facility] Lymphocytes Abs 2.2 0.9 - 3.2 x10(3)/[facility] Monocyte % 6.2 % [facility] Monocyte Abs 0.3 0.3 - 0.9 x10(3)/[facility] Eos % 1.0 % [facility] Eosinophils Abs 0.0 0.0 - 0.4 x10(3)/[facility] Basophil % 0.4 % [facility] Baso Absolute 0.0 0.0 - 0.1 x10(3)/[facility] Immature Gran % 0.20 % [facility] Comment: Immature granulocytes(IG's)percentage and absolute count will include metamyelocytes, myelocytes, and promyelocytes. Blood smears from CBCs yielding IG's will be scanned manually for concordance. If this scan disagrees with the automated IG or if promyelocytes are noted, a manual differential will be performed. Immature Gran Absolute 0.01 0.00 - 0.04 x10(3)/[facility] Blood specimen (specimen) Venous Draw / Unknown 10/19/2017 11:47 AM EDT 10/19/2017 11:52 AM EDT Narrative Resulting Agency Comment Spec In Lab L Timothy Pandey MD HEMATOLOGY ORDERABLE S Performing Organization Address City/State/[facility] Co de Phone Number [facility] [place] [address] * (ABNORMAL) Hemogram (10/19/2017 11:47 AM EDT) White Blood Cell 5.0 4.0 - 9.5 x10(3)/[facility] Red Blood Cell 4.97 4.58 - 5.54 x10(6)/[facility] Hemoglobin 15.8 13.7 - 16.5 gm/dL [facility] Hematocrit 43.6 40.5 - 48.5 % [facility] Mean Cell Volume 87.7 82.9 - 93.1 fL [facility] Mean Cell Hemoglobin 31.8 27.5 - 32.1 pg [facility] Mean Cell Hemoglobin Concentration 36.2(H) 32.0 - 35.7 gm/dL [facility] Platelet 238 145 - 357 x10(3)/[facility] RDW Standard Deviation 41.8 36.0 - 45.0 fL [facility] RDW coefficient of variation 13.1 11.4 - 13.8 % [facility] Mean Platelet Volume 9.7 7.6 - 12.9 fL [facility] NRBC% auto 0.0 % [facility] NRBC Absolute 0.000 0.000 - 0.000 x10(3)/mc L [facility] Blood specimen (specimen) Venous Draw / Unknown 10/19/2017 11:47 AM EDT 10/19/2017 11:52 AM EDT Narrative Resulting Agency Comment Spec In Lab L Timothy Pandey MD HEMATOLOGY ORDERABLE S Performing Organization Address [facility] Co de Phone Number [facility] [place] [address] * Adalimumab Quant with Reflex to Antibody (10/19/2017 11:47 AM EDT) Adalimumab Level (JULY) 7.4 mcg/mL [facility] Comment: For clinical assessment of response to therapy, adalimumab should be measured at trough. When adalimumab trough concentrations are greater than 5.0 mcg/mL, clinically relevant kbtiyfvofz-hk-cqzxksgspb are unlikely and reflex testing will not be performed. REFERENCE VALUE Limit of Quantitation = 0.8 mcg/mL ADDITIONAL INFORMATION This test was developed and its performance characteristics determined by [facility] in a manner consistent with CLIA requirements. This test has not been cleared or approved by the U.S. Food and Drug Administration. Test Performed by: [facility] - [address] [address] Blood specimen (specimen) 10/19/2017 11:47 AM EDT 10/19/2017 2:02 PM EDT Narrative Resulting Agency Comment Spec In Lab L Timothy Pandey MD LAB SEND OUT ORDERAB LES Performing Organization Address City/[facility]/ZIP Co de Phone Number [facility] [place] [address] * Thiopurine Metabolites (10/19/2017 11:47 AM EDT) Pathologist [facility] Thiopurine Metabolites (PROMETHEUS) See Scan Report [facility] Blood specimen (specimen) 10/19/2017 11:47 AM EDT 10/20/2017 12:56 PM EDT Narrative Resulting Agency Comment Spec In Lab L Timothy Pandey MD LAB SEND OUT ORDERAB LES Performing Organization Address [facility]/ZIP Co de Phone Number [facility] [place] [address] * Vitamin D, 25-Hydroxy (10/19/2017 11:47 AM EDT) [facility] Vitamin D Total 25 OH 51 30 - 100 ng/mL [facility] Comment: Deficient <10 ng/mL Insufficient 10 to 29 ng/mL Sufficient 30 to 100 ng/mL Potential Intoxication >100 ng/mL According to the US National Osteoporosis Foundation, Vitamin D concentrations >30 ng/mL are sufficient to protect bone health. ??The National Kidney Foundation has similarly stated that patients with Vitamin D concentrations <30ng/mL should be considered to be insufficient or deficient. http://[employer].Pearl.com/nkf-guidelines http://[employer].Pearl.com/nejm-VitD The [employer] iSYS Vitamin D Immunoassay detects both 25-OH Vitamin D2 and 25-OH Vitamin D3, but only a total Vitamin D concentration is reported. Blood specimen (specimen) 10/19/2017 11:47 AM EDT 10/19/2017 2:16 PM EDT Narrative Resulting Agency Comment Spec In Lab Ramonita Pandey MD CHEMISTRY ORDERABLES Performing Organization Address [facility]/ZIP Co de Phone Number [facility] [place] [address] * CRP, acute inflammation (10/19/2017 11:47 AM EDT) [facility] C-Reactive Protein <0.2 <=4.9 mg/L [facility] Blood specimen (specimen) 10/19/2017 11:47 AM EDT 10/19/2017 11:52 AM EDT Narrative Resulting Agency Comment Spec In Lab L Timothy Pandey MD CHEMISTRY ORDERABLES [facility] [place] [address] * (ABNORMAL) Comprehensive metabolic panel (non-fasting) (10/19/2017 11:47 AM EDT) Pathologist [facility] Glucose 94 65 - 199 mg/dL [facility] Comment:Diabetes: >=200 mg/d L plus symptoms Blood Urea Nitrogen 15 10 - 20 mg/dL [facility] Creatinine 0.89 0.80 - 1.50 mg/dL [facility] Sodium 142 135 - 145 mmol/L [facility] Potassium 4.0 3.5 - 5.0 mmol/L [facility] Comment: Please note: ??Patients with WBC >100,000 may have falsely elevated Potassium levels. ??For accurate Potassium quantification in these patients send serum separator tube (gold top) for subsequent determinations. ??Contact the Clinical Chemistry Laboratory if there are any questions. Chloride 101 98 - 107 mmol/L [facility] Carbon Dioxide 27 22 - 31 mmol/L [facility] Anion Gap 14 5 - 15 mmol/L [facility] Calcium 9.8 8.5 - 10.5 mg/dL [facility] Protein, Total 7.4 6.1 - 8.0 gm/dL [facility] Albumin 4.5 3.2 - 5.2 gm/dL [facility] Aspartate Aminotransferase 31 0 - 39 unit/L [facility] Alanine Aminotransferase 43 0 - 55 unit/L [facility] Alkaline Phosphatase 59 40 - 120 unit/L [facility] Bilirubin, Total 1.5(H) 0.2 - 1.3 mg/dL [facility] Est Glomerular Filtration Rate 105 >=60 mL/min/1. 73 m?? [facility] Comment: The eGFR was calculated using the CKD-EPI equation. As with all creatinine based estimates of kidney function, eGFR values calculated with the CKD-EPI equation are not accurate in patients with acute kidney failure, extremes of body mass or the acutely ill. http://E-nterview/[facility] OKLA[facility]OMA CITYnkf eGFR 122 >=60 mL/min/1. 73 m?? [facility] Comment: The eGFR was calculated using the CKD-EPI equation. As with all creatinine based estimates of kidney function, eGFR values calculated with the CKD-EPI equation are not accurate in patients with acute kidney failure, extremes of body mass or the acutely ill. http://E-nterview/[facility]nkf Blood specimen (specimen) 10/19/2017 11:47 AM EDT 10/19/2017 11:52 AM EDT Narrative Resulting Agency Comment Spec In Lab L Timothy Pandey MD CHEMISTRY ORDERABLES [facility] [place] [address] documented in this encounter Visit Diagnoses Diagnosis Crohn's disease of ileum with rectal bleeding documented in this encounter Care Teams Regional Account Manager Relationship Specialty Start Date End Date Irwin Gonsalez DO [address] [place] [address] PCP - General 05/01/11 03/14/24 documented as of this encounter
--- OUTSIDE RECORDS SUMMARY | 2024-04-18 02:39 | XMS_ITS | Encounter Summary ---
Author Organization [facility] Address [facility] [place] [address] Care Team Providers Care Team Supervisor Name Role Phone Irwin Gonsalez DO Primary Care Provider Reason for Visit * Reason Comments Excessive Sweating Encounter Details Date Type Department Care Team (Late st Contact Info) Description 04/01/2017 8:00 AM EST Office Visit Dermatology at [facility] [address] [place] [address] Loly Alvarez MD [facility] [place] [address] Hyperhidrosis Social History Tobacco Use Types Packs/Day [...] y.o. year old male. [place] patient [place] and established to [facility] [place], He presents to [...] in each axillae. - No complications. 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 I am documenting this encounter acting as the scribe for and in the presence of Dr.Roberta Antonio Reno LPN and Awa Tomlin I performed the above scribed service and agree with the accuracy of the documentation in this encounter. Loly Alvarez MD Section of Dermatology [facility] Igor Basurto Mayitorobertjoshua 04/01/2017 [id number] documented in this encounter Plan of Treatment Not on file documented as of this encounter Goals Goal Patient Goal Type Associated Problems Recent Progress Patient-Stated? Author [facility] Medication Compliance and Understanding Patient Facing Action Plan On track( 017 9:39 PM EDT) Perri Hernandez, [facility] Note: Patient's specific [...] section) documented in this encounter Care Teams Team Supervisor Relationship Specialty Start Date End Date Irwin Gonsalez DO [address] [place] [address] PCP - General 05/01/11 03/14/24 documented as of this encounter
--- OUTSIDE RECORDS SUMMARY | 2024-04-18 02:39 | XMS_ITS | Encounter Summary ---
[place] [address] Care Team Providers Care Reweaver Name Role Phone Irwin Gonsalez DO Primary Care Provider Reason for Visit * Reason Comments Medication Management Encounter Details Date Type Department Care Team (Late st Contact Info) Description 09/28/2017 Specialty [place]acy [place] [phone] Edvin Hernandez RPH Social History Tobacco Use [...] Discrepancies (compared to [facility] med list) - none New medications: no [...] the appointment and that [facility] is providing recommendations (summary located at [...] PM EDT) No Perri Sousa [facility] Note: Patient's [...] on filedocumented in this encounter Care Teams Reweaver Relationship Specialty Start Date End Date Irwin Gonsalez DO [address] [place] [address] 1 [place] [address] PCP - General 05/01/11 03/14/24 documented as of this encounter
--- OUTSIDE RECORDS SUMMARY | 2024-04-18 02:39 | XMS_ITS | Encounter Summary ---
[place] [address] Care Team Providers Care Government Relations Director Name Role Phone Irwin Gonsalez DO Primary Care Provider Encounter Details Date Type Department Care Team (Late st Contact Info) Description 02/03/2018 [place] [address] Irwin Gonsalez DO [address] [place] [address] Social History Tobacco Use Types [...] 9:39 PM EDT) No Perri Sousa, [facility] Note: Patient's specific desired goal: Igor [...] on filedocumented in this encounter Care Teams Government Relations Director Relationship Specialty Start Date End Date Irwin Gonsalez DO [address] [place] [address] PCP - General 05/01/11 03/14/24 documented as of this encounter
--- OUTSIDE RECORDS SUMMARY | 2024-04-18 02:39 | XMS_ITS | Encounter Summary ---
[place] [address] Care Team Providers Care Cloth Printer Helper Name Role Phone Irwin Gonsalez DO Primary Care Provider Reason for Visit * Reason Comments Medication Management Encounter Details Date Type Department Care Team (Late st Contact Info) Description 02/18/2017 Specialty [place] [phone] Power Billingsley [facility] Social History Tobacco Use Types Packs/Day Years [...] (compared to [facility] med list) - no problems noted New [...] provider review and follow up. Power Billingsley [facility] 02/18/17 4:36 PM documented in this encounter Plan of Treatment Not on file documented as of this encounter Goals Goal Patient Goal Type Associated Problems Recent Progress Patient-Stated? Author [facility] Medication Compliance and Understanding Patient Facing Action Plan On track( 017 9:39 PM EDT) No Perri Sousa [facility] Note: Patient's specific desired [...] medications documented in this encounter Care Teams Cloth Printer Helper Relationship Specialty Start Date End Date Irwin Gonsalez DO [address] [place] [address] [address] [place] [address] PCP - General 05/01/11 03/14/24 documented as of this encounter
--- OUTSIDE RECORDS SUMMARY | 2024-04-18 02:39 | XMS_ITS | Encounter Summary ---
[place] [address] Care Team Providers Care Dietician Name Role Phone Irwin Gonsalez DO Primary Care Provider [phone] Reason for Visit * Reason Comments Medication Management Encounter Details Date Type Department Care Team (Late st Contact Info) Description 03/15/2018 Specialty [place] [phone] Karishma Muir [facility] Social History Tobacco Use Types Packs/Day [...] of Humira Specialty Pharmacy Consultation; Karishma Noel [facility] Comprehensive Medication Management (CMM) Igor Sherine [...] regular labwork. Lab orders were faxed to [facility] in Apr so a request for new standing orders was sent to [facility] in case these are . The specialty [...] PM EDT) No Perri Sousa [facility] Note: [...] Gonsalez DO [address] [place] [address] PCP - General 05/01/11 03/14/24 documented as of this encounter
--- OUTSIDE RECORDS SUMMARY | 2024-04-18 02:39 | XMS_ITS | Encounter Summary ---
Author Organization [facility] Address [facility] [place] [address] Care Team Providers Care Instructor Decorating Name Role Phone Irwin Gonsalez DO Primary Care Provider Encounter Details Date Type Department Care Team (Late st Contact Info) Description 05/05/2017 [place] [address] Ramonita Pandey MD [facility] [place] [address] Social History Tobacco Use Types Packs/Day Years [...] Type Associated Problems Recent Progress Patient-Stated? Author [facility] Medication Compliance and Understanding Patient Facing Action Plan On track( 017 9:39 PM EDT) No Perri Sousa, [facility] Note: [...] filedocumented in this encounter Care Teams Instructor Decorating Relationship Specialty Start Date End Date Irwin Gonsalez DO [address] [place] [address] [address] [place] [address] PCP - General 05/01/11 03/14/24 documented as of this encounter
--- OUTSIDE RECORDS SUMMARY | 2024-04-18 02:39 | XMS_ITS | Encounter Summary ---
Author Organization [facility] Address [facility] [place] [address] Care Team Providers Care Wheat Shipper Name Role Phone Irwin Gonsalez DO Primary Care Provider [phone] Encounter Details Date Type Department Care Team (Late st Contact Info) Description 04/13/2018 Refill [place] [address] Ramonita Pandey MD [facility] [place] [address] Social History Tobacco Use Types Packs/Day Years [...] Associated Problems Recent Progress Patient-Stated? Author [facility] Medication Compliance and Understanding Patient Facing [...] on filedocumented in this encounter Care Teams Wheat Shipper Relationship Specialty Start Date End Date Irwin Gonsalez DO [address] [place] [address] [address] [place] [address] PCP - General 05/01/11 03/14/24 documented as of this encounter
--- OUTSIDE RECORDS SUMMARY | 2024-04-18 02:39 | XMS_ITS | Encounter Summary ---
Author Organization [facility] Address [facility] [place] [address] Care Team Providers Care Doctor Of Medicine Name Role Phone Irwin Gonsalez DO Primary Care Provider Reason for Visit * Reason Comments Follow-up Encounter Details Date Type Department Care Team (Late st Contact Info) Description 2017 11:00 AM EST Office [place] [address] Ramonita Pandey MD [facility] [place] [address] Crohn's disease of ileum with fistula Social [...] 3-4 months. These can be done at [facility]. After today, next due in May 2017. [...] 3-4 months. These can be done at [facility]. After today, next due in May 2017. # Will check Humira blood levels today. # Follow-up with me in the office in 5 months. 20 min of this 25 min lqet-hx-nsiq visit was spent counseling the patient in the issues outlined above. Angelo Pandey MD Iuss Master Analystexchange clerk Section of Gastroenterology [place] [address] documented in this encounter Plan of Treatment [...] * Differential, Automated (2017 12:01 PM EST) Neutrophil % 47.5 % [facility] Neutrophil Absolute 2.78 1.70 - 6.10 x10(3)/[facility] Lymph % 43.2 % [facility] Lymphocytes Abs 2.5 0.9 - 3.2 x10(3)/[facility] Monocyte % 7.0 % [facility] Monocyte Abs 0.4 0.3 - 0.9 x10(3)/[facility] Eos % 1.5 % [facility] Eosinophils Abs 0.1 0.0 - 0.4 x10(3)/[facility] Basophil % 0.5 % [facility] Baso Absolute 0.0 0.0 - 0.1 x10(3)/[facility] Immature Gran % 0.30 % [facility] Comment: Immature granulocytes(IG's)percentage and absolute count will include metamyelocytes, myelocytes, and promyelocytes. Blood smears from CBCs yielding IG's will be scanned manually for concordance. If this scan disagrees with the automated IG or if promyelocytes are noted, a manual differential will be performed. Immature Gran Absolute 0.02 0.00 - 0.04 x10(3)/[facility] Blood specimen (specimen) 2017 12:01 PM EST 2017 12:09 PM EST Narrative Resulting Agency Comment Spec In Lab L Timothy Pandey MD HEMATOLOGY ORDERABLE S [facility] [place] [address] * (ABNORMAL) Hemogram (2017 12:01 PM EST) White Blood Cell 5.9 4.0 - 9.5 x10(3)/mc L [facility] Red Blood Cell 4.92 4.58 - 5.54 x10(6)/mc L [facility] Hemoglobin 15.8 13.7 - 16.5 gm/dL [facility] Hematocrit 42.6 40.5 - 48.5 % [facility] Mean Cell Volume 86.6 82.9 - 93.1 fL [facility] Mean Cell Hemoglobin 32.1 27.5 - 32.1 pg [facility] Mean Cell Hemoglobin Concentration 37.1(H) 32.0 - 35.7 gm/dL [facility] Platelet 272 145 - 357 x10(3)/mc L [facility] RDW Standard Deviation 41.3 36.0 - 45.0 [facility] RDW coefficient of variation 13.2 11.4 - 13.8 % [facility] Mean Platelet Volume 9.6 7.6 - 12.9 fL [facility] NRBC% auto 0.0 % [facility] NRBC Absolute 0.000 0.000 - 0.000 x10(3)/mc L [facility] Blood specimen (specimen) 2017 12:01 PM EST 2017 12:09 PM EST Narrative Resulting Agency Comment Spec In Lab L Timothy Pandey MD HEMATOLOGY ORDERABLE S Performing Organization Address City/[facility]/ZIP Co de Phone Number [facility] [place] [address] * CRP, acute inflammation (2017 12:01 PM EST) C-Reactive Protein 0.2 <=4.9 mg/L [facility] Blood specimen (specimen) 2017 12:01 PM EST 2017 12:09 PM EST Narrative Resulting Agency Comment Spec In Lab L Timothy Pandey MD CHEMISTRY ORDERABLES Performing Organization Address City/[facility]/ZIP Co de Phone Number [facility] [place] [address] * (ABNORMAL) Hepatic Function Panel (2017 12:01 PM EST) Protein, Total 7.2 6.1 - 8.0 gm/dL [facility] Albumin 4.2 3.2 - 5.2 gm/dL [facility] Aspartate Aminotransferase 34 0 - 39 unit/L [facility] Alanine Aminotransferase 68(H) 0 - 55 unit/L [facility] Alkaline Phosphatase 57 40 - 120 unit/L [facility] Bilirubin, Total 1.0 0.2 - 1.3 mg/dL [facility] Bilirubin, Direct 0.2 0.0 - 0.3 mg/dL [facility] Blood specimen (specimen) 2017 12:01 PM EST 2017 12:09 PM EST Narrative Resulting Agency Comment Spec In Lab L Timothy Pandey MD CHEMISTRY ORDERABLES Performing Organization Address City/[facility]/ZIP Co de Phone Number [facility] [place] [address] documented in this encounter Visit Diagnoses Diagnosis Crohn's disease of ileum with fistula documented in this encounter Care Teams Doctor Of Medicine Relationship Specialty Start Date End Date Irwin Gonsalez DO [address] [place] [address] PCP - General 05/01/11 03/14/24 documented as of this encounter
--- OUTSIDE RECORDS SUMMARY | 2024-04-18 02:39 | XMS_ITS | Encounter Summary ---
[place] [address] Care Team Providers Care Chemistry Faculty Member Name Role Phone Irwin Gonsalez DO Primary Care Provider Reason for Visit * Reason Comments Medication Management Encounter Details Date Type Department Care Team (Late st Contact Info) Description 07/03/2017 Specialty [place] [phone] Edvin Hernandez RPH Social History Tobacco Use [...] to [facility] med list) - none New medications: no [...] appointment and that [facility] is providing recommendations (summary located [...] on filedocumented in this encounter Care Teams Chemistry Faculty Member Relationship Specialty Start Date End Date Irwin Gonsalez DO [address] [place] [address] [address] [place] [address] PCP - General 05/01/11 03/14/24 documented as of this encounter
--- OUTSIDE RECORDS SUMMARY | 2024-04-18 02:39 | XMS_ITS | Encounter Summary ---
[place] [address] Care Team Providers Care Power Distribution Engineer Name Role Phone Irwin Gonsalez DO Primary Care Provider Reason for Visit * Reason Comments Medication Management Encounter Details Date Type Department Care Team (Late st Contact Info) Description 11/19/2017 Specialty [place] [phone] Karishma Muir [facility] Social History Tobacco Use Types [...] calculate BMI. Medication Reconciliation Discrepancies (compared to [facility] med list) -none Medication Adherence Patient [...] care discussed, reminder to refill or picker packer medication discussed, self-monitoring discussed, timing of medications [...] care discussed, reminder to refill or picker packer medication discussed, self-monitoring discussed, timing of medications [...] Assessment: Does the patient have a primary personal care assistant? no Patient has emergency contact on file: [...] at the appointment and that [facility] is providing recommendations (summary located [...] 017 9:39 PM EDT) No Perri Sousa [facility] Note: Patient's specific desired [...] on filedocumented in this encounter Care Teams Power Distribution Engineer Relationship Specialty Start Date End Date Irwin Gonsalez DO [address] [place] [address] PCP - General 05/01/11 03/14/24 documented as of this encounter
--- OUTSIDE RECORDS SUMMARY | 2024-04-18 02:40 | XMS_ITS | Encounter Summary ---
[place] [address] Care Team Providers Care Business Machines Teacher Name Role Phone Irwin Gonsalez DO Primary Care Provider Encounter Details Date Type Department Care Team (Late st Contact Info) Description 08/22/2016 [place] [address] Perri Sousa [facility] Social History Tobacco Use Types Packs/Day Years [...] Romo Sunday - 08/22/2016 2:25 PM EDT [facility] Specialty Pharmacy: Clinical Management Plan ? Left message for refill reminder documented in this encounter Plan of Treatment Not on file documented as of this encounter Goals Goal Patient Goal Type Associated Problems Recent Progress Patient-Stated? Author [facility] Medication Compliance and Understanding Patient Facing [...] filedocumented in this encounter Care Teams Business Machines Teacher Relationship Specialty Start Date End Date Irwin Gonsalez DO [address] [place] [address] PCP - General 05/01/11 03/14/24 documented as of this encounter
--- OUTSIDE RECORDS SUMMARY | 2024-04-18 02:40 | XMS_ITS | Encounter Summary ---
Author Organization [facility] [place] [address] Care Team Providers Care Arbor End Mainspring Former Name Role Phone Irwin Gonsalez DO Primary Care Provider [phone] Reason for Visit * Auth/Cert Specialty Diagnoses / Procedures Referred By Haresh powers Referred To Contact Diagnoses Restage Crohn's disease (IVCS) Procedures PRO COLONOSCOPY, DIAGNOSTIC COLONOSCOPY, DIAGNOSTIC Referral ID Status Reason Start Date Expiration Date Visits Re quested Visits Authorized [id number] 1 1 Encounter Details Date Type Department Care Team (Late st Contact Info) Description 02/09/2017 2:07 PM EST - 02/09/2017 5:18 PM EST Hospital En[place] [address] Corky Hollingsworth MD [facility] [place] [address] Discharge Disposition: Home Social History Tobacco Use [...] to be checked. Thursday-Thursday Same Day Endo [phone] 7a-8p Otherwise contact [phone] and ask to speak to the software development project manager bond underwriter Follow up care is a garcia part [...] ??? Perianal abscess, right posterior K61.0 ??? Ytgrjnh-hs-miw K60.3 Medications: Reviewed in EDH No Known [...] * COLONOSCOPY (02/09/2017 4:16 PM EST) COLONOSCOPY [facility] Endoscopy Procedure Date: 02/09/2017 4:16 PM ? Patient Name: Igor Woodruff ? Date of : 1975 ? Age: 41 ? Order #: [id number] ? Instrument Name: [id number] ? Procedure: ? Colonoscopy Indications: ? Disease [...] preparation was evaluated using ? the BBPS ([place] Bowel Preparation ? Scale) with scores of: [...] infusion 100 mL/hr, Intravenous, CONTINUOUS, Starting on 02/09/17 at 1545, Until Thu02/09/17 at 1918 1545 (Due) PRN Medication Order 02/07/2017 02/08/2017 02/09/2017 fentaNYL 50 mcg/mL multi-dose injection (CANCELED) ONCE PRN, Starting on Thu02/09/17 at 1629, Until Thu02/09/17 at 1918, Intra-Operative (Intra-Procedure), Routine 1629 (Given - Provid er: Melanie Perez RN)1632 (Given - Provider: Melanie Perez RN)1636 (Given - Provider: Melanie Preez, RN)1639 (Given - Provider: Melanie Perez RN) midazolam (PF) (VERSED) 1 mg/mL multi-dose injection (CANCELED) ONCE PRN, Starting on Thu02/09/17 at 1629, Until Thu02/09/17 at 1918, Intra-Operative (Intra-Procedure), Routine 1629 (Given - Provid er: Melanie Perez RN)1632 (Given - Provider: Melanie Perez RN)1635 (Given - Provider: Melanie Perez RN)1639 (Given - Provider: Melanie Perez RN) documented in this encounter Care Teams Arbor End Mainspring Former Relationship Specialty Start Date End Date Irwin Gonsalez DO [address] [place] [address] PCP - General 05/01/11 03/14/24 documented as of this encounter
--- OUTSIDE RECORDS SUMMARY | 2024-04-18 02:40 | XMS_ITS | Encounter Summary ---
Author Organization [facility] Address [facility] [address] Care Team Providers Care Spinner Iron Name Role Phone Irwin Gonsalez DO Primary Care Provider Reason for Visit * Reason Comments Nephrolithiasis Encounter Details Date Type Department Care Team (Late st Contact Info) Description 06/04/2016 2:40 PM EDT [place] [phone] Dougie Husain Jr., MD [facility] [place] [address] Nephrolithiasis Social History Tobacco Use Types Packs/Day [...] and cola. You do not need to ounces of water today. Urination: You will likely have a small amount of blood in your urine for the next several days. This is normal; however, if you are passing large amounts of blood clots or are unable to void please call our office at [phone] before 5PM or [phone] after hours. Please call if: * you have copious blood in your urine * fevers greater than 101.3 F * you are unable to void The number for questions is [phone] before 5 PM weekdays and [phone] after 5 PM and weekends. Follow-up: 4 [...] -Ovaltine -lemonade/limeade -tea, brewed (made without peel) -kaw juice -milk (skim, 2%, whole) -orange soda [...] -kiwi -honeydew -plums -lemon peel -mangoes -prunes -kaw peel -nectarines -orange peel -papaya -red raspberries [...] sauce -sorrel -spinach -summer squash -sweet potatoes -Burkinan chard -tomato soup -watercress -yams Condiments Low [...] the procedure well. ?? I instructed ??Igor Monzonjoshua ??of the need to return in approximately [...] kidney documented in this encounter Care Teams Spinner Iron Relationship Specialty Start Date End Date Irwin Gonsalez DO [address] [place] [address] PCP - General 05/01/11 03/14/24 documented as of this encounter
--- OUTSIDE RECORDS SUMMARY | 2024-04-18 02:40 | XMS_ITS | Encounter Summary ---
Author Organization [facility] Address [facility] [place] [address] Care Team Providers Care Engineer Booster And Exhauster Name Role Phone Irwin Gonsalez DO Primary Care Provider [phone] Reason for Visit * Auth/Cert Specialty Diagnoses [...] Expiration Date Visits Re quested Visits Authorized [id number] 1 1 Encounter Details Date Type Department Care Team (Late st Contact Info) Description 05/23/2016 8:50 AM EST - 05/23/2016 11:15 AM EST Surgery [place] [phone] Dougie Husain Jr., MD [facility] [place] [address] CYSTO, REMOVAL OF STENT, FOREIGN BODY OR [...] closest emergency room or call the hospital cream separator operator at [phone] and ask for physician consulting psychologist covering for your physician. Questions or problems after 5pm or on a weekend: Call the [facility] cream separator operator at and ask for the physician consulting psychologist covering for your doctor. * Patient Instructions* Mannie Brent P - 05/23/2016 11:15 AM EST Call your doctor for: ??? fevers greater than 101 ??? severe nausea or vomiting ??? increasing pain not controlled by pain medications The number for questions is [phone] before 5 PM weekdays and [phone] after 5 PM and weekends. Activity level: [...] forstent removal in the office. Please call [phone] if you do not receive your appointment. [...] presenting for attempted URS/stent placement for his FKAF1hb renal stone. ?? No change to medical [...] Brent Chand - 05/23/2016 11:17 AM EST [facility] Operative Note Patient Name: Igor Woodruff : [id number] MR#: [id number] Case Date: 05/23/2016 Surgeon: Surgeon(s) and Role: [...] Operative Note Patient Name: Igor Woodruff : [id number] MR#: [id number] Case Date: 05/23/2016 Surgeon: Surgeon(s) and Role: [...] OR Use (05/23/2016 11:30 AM EST) Narrative RAD - 05/23/2016 11:31 AM EST This order does not need a radiologist interpretation. ?? Dougie Husain Jr., MD IMG FLUORO ORDERAB LES Performing Organization Address City/State/[facility] Co de Phone Number [place], [place] * Kidney Stone Analysis (05/23/2016 11:10 AM EST) Kidney Stone Analysis (MAY) Test ? Result ?Flag ??Unit ??RefValue ------- Kidney Stone Analysis ??Source: ?Left Renal ??1st Constituent: ?90% Calcium oxalate monohydrate ??2nd Constituent: ?10% Calcium oxalate dihydrate ? ---ADDITIONAL INFORMATION------- ?This test was developed and its performance characteristics ?determined by [facility] in a manner consistent with CLIA ?requirements. This test has not been cleared or approved by ?the U.S. Food and Drug Administration. ?Test Performed by: ?[facility] [address] [place] [address] [facility] Calculus specimen (specimen) 05/23/2016 11:10 AM EST 05/23/2016 1:11 PM EST Narrative Resulting Agency Comment Spec In Lab Dougie Husain Jr., MD LAB SEND OUT ORDER CHASE [facility] [place] [address] documented in this encounter Visit Diagnoses Not [...] dextrose 5% 200mL (COMPLETED) 400 mg, Intravenous, AUTOMATIC LINE SET UP MECHANIC TO O.R., 1 dose, On Thu05/23/16 at [...] (New Bag - Prov ider: Riya Matos RN)0856 (New Bag - Provider: Katya Wolff CRNA)0921 [...] Routine 0926 (Given - Provid er: Dougie uHsain Jr., MD) lidocaine (XYLOCAINE) 10 mg/mL (1 [...] Recovery documented in this encounter Care Teams Engineer Booster And Exhauster Relationship Specialty Start Date End Date Irwin Gonsalez DO [address] [place] [address] PCP - General 05/01/11 03/14/24 documented as of this encounter
--- OUTSIDE RECORDS SUMMARY | 2024-04-18 02:40 | XMS_ITS | Encounter Summary ---
Author Organization [facility] Address [facility] [place] [address] Care Team Providers Care Kaiawhina Name Role Phone Irwin Gonsalez DO Primary Care Provider Reason for Visit * Reason Onset Date Comments Prior Authorization 12/29/2016 Encounter Details Date Type Department Care Team (Late st Contact Info) Description 12/29/2016 Telephone Dermatology at [facility] [address] [place] [phone] Bharathi Foote MD [facility] [place] [address] Prior Authorization Social History Tobacco Use Types [...] on filedocumented in this encounter Care Teams Kaiawhina Relationship Specialty Start Date End Date Irwin Gonsalez DO [address] [place] [address] PCP - General 05/01/11 03/14/24 documented as of this encounter
--- OUTSIDE RECORDS SUMMARY | 2024-04-18 02:40 | XMS_ITS | Encounter Summary ---
[place] [address] Care Team Providers Care Supervisor Paint Roller Covers Name Role Phone Irwin Gonsalez DO Primary Care Provider Reason for Visit * Reason Onset Date Comments Medication Refill 01/02/2017 Encounter Details Date Type Department Care Team (Late st Contact Info) Description 01/02/2017 Refill [place] [phone] Shannan Barnard, RN Social History Tobacco Use [...] filedocumented in this encounter Care Teams Supervisor Paint Roller Covers Relationship Specialty Start Date End Date Irwin Gonsalez DO [address] [place] [address] PCP - General 05/01/11 03/14/24 documented as of this encounter
--- OUTSIDE RECORDS SUMMARY | 2024-04-18 02:40 | XMS_ITS | Encounter Summary ---
[place] [address] Care Team Providers Care Skein Tier Name Role Phone Irwin Gonsalez DO Primary Care Provider Reason for Visit * Reason Comments Medication Management Encounter Details Date Type Department Care Team (Late st Contact Info) Description 09/26/2016 Specialty [place] [phone] Perri Sousa [facility] Social History Tobacco Use Types Packs/Day [...] Perri Romo [facility] - 09/26/2016 12:04 PM EDT Clinical Management Plan: Refill Specialty Pharmacy Consultation; Perri Room [facility] Comprehensive Medication Management (CMM) Igor Sherine Mayitorobertjoshua [...] were made at the appointment and that [facility] is providing recommendations (summary located at top of note) for provider review and follow up. Perri Romo RPH 09/26/16 12:05 PM documented in this encounter Plan of Treatment Not on file documented as of this encounter Goals Goal Patient Goal Type Associated Problems Recent Progress Patient-Stated? Author DH Home Medication Compliance and Understanding Patient Facing Action Plan On track( 017 9:39 PM EDT) No Perri Sousa [facility] Note: [...] on filedocumented in this encounter Care Teams Skein Tier Relationship Specialty Start Date End Date Irwin Gonsalez DO [address] [place] [address] PCP - General 05/01/11 03/14/24 documented as of this encounter
--- OUTSIDE RECORDS SUMMARY | 2024-04-18 02:40 | XMS_ITS | Encounter Summary ---
[place] [address] Care Team Providers Care Graphic Art Technician Name Role Phone Irwin Gonsalez DO Primary Care Provider Reason for Visit * Reason Comments Medication Management Encounter Details Date Type Department Care Team (Late st Contact Info) Description 01/26/2017 Specialty [place] [phone] Adelaide Sánchez Social History Tobacco Use Types [...] 017 9:39 PM EDT) No Perri Sousa RP Note: Patient's specific desired goal: Igor would [...] on filedocumented in this encounter Care Teams Graphic Art Technician Relationship Specialty Start Date End Date Irwin Gonsalez DO [address] [place] [address] PCP - General 05/01/11 03/14/24 documented as of this encounter
--- OUTSIDE RECORDS SUMMARY | 2024-04-18 02:40 | XMS_ITS | Encounter Summary ---
Author Organization [facility] Address [facility] [place] [address] Care Team Providers Care Websphere Process Server Developer Name Role Phone Irwin Gonsalez DO Primary Care Provider [phone] Reason for Visit * Reason Comments Follow-up Encounter Details Date Type Department Care Team (Late st Contact Info) Description 08/18/2016 4:00 PM EDT Office [place] [address] Ramonita Pandey MD [facility] [place] [address] Crohn's disease of small intestine with fistula [...] months. These can be done at [facility]. # Follow-up as planned with Dr. Vivas [...] get some here today and then at [facility]. We discussed the following recommendations that were [...] months. These can be done at [facility]. # Follow-up as planned with Dr. Vivas in October # Plan on repeat colonoscopy ~6 months after starting Humira. Will scheduled for November. # Follow-up with me after the colonoscopy in Nov or December. Angelo Pandey MD Chief School Finance Officerholder pile driving Section of Gastroenterology [place] [address] documented in this encounter Plan of Treatment [...] 5:08 PM EDT) Neutrophil % 43.5 % [facility] Neutrophil Absolute 1.98 1.70 - 6.10 x10(3)/[facility] [place] [facility] Lymph % 45.7 % [facility] Lymphocytes Abs 2.1 0.9 - 3.2 x10(3)/[facility] [place] [facility] Monocyte % 8.4 % [facility] Monocyte Abs 0.4 0.3 - 0.9 x10(3)/[facility] [place] [facility] Eos % 1.5 % [facility] Eosinophils Abs 0.1 0.0 - 0.4 x10(3)/[facility] [place] [facility] Basophil % 0.7 % [facility] Baso Absolute 0.0 0.0 - 0.1 x10(3)/[facility] [place] [facility] Immature Gran % 0.20 % [facility] Comment: Immature granulocytes(IG's)percentage and absolute count will include metamyelocytes, myelocytes, and promyelocytes. Blood smears from CBCs yielding IG's will be scanned manually for concordance. If this scan disagrees with the automated IG or if promyelocytes are noted, a manual differential will be performed. Immature Gran Absolute 0.01 0.00 - 0.04 x10(3)/[facility] [place] [facility] Blood specimen (specimen) 08/18/2016 5:08 PM EDT 08/18/2016 5:12 PM EDT Narrative Resulting Agency Comment Spec In Lab L Timothy Pandey MD HEMATOLOGY ORDERABLE S [facility] [place] [address] * Hemogram (08/18/2016 5:08 PM EDT) White Blood Cell 4.6 4.0 - 9.5 x10(3)/[facility] [place] [facility] Red Blood Cell 4.68 4.58 - 5.54 x10(6)/[facility] [place] [facility] Hemoglobin 14.5 13.7 - 16.5 gm/dL [facility] Hematocrit 40.7 40.5 - 48.5 % [facility] Mean Cell Volume 87.0 82.9 - 93.1 [facility] Mean Cell Hemoglobin 31.0 27.5 - 32.1 [facility] Mean Cell Hemoglobin Concentration 35.6 32.0 - 35.7 gm/dL [facility] Platelet 242 145 - 357 x10(3)/[facility] [place] [facility] RDW Standard Deviation 40.0 36.0 - 45.0 [facility] RDW coefficient of variation 12.7 11.4 - 13.8 % [facility] Mean Platelet Volume 9.6 7.6 - 12.9 [facility] NRBC% auto 0.0 % [facility] NRBC Absolute 0.000 0.000 - 0.000 x10(3)/[facility] [place] [facility] Blood specimen (specimen) 08/18/2016 5:08 PM EDT 08/18/2016 5:12 PM EDT Narrative Resulting Agency Comment Spec In Lab L Timothy Pandey MD HEMATOLOGY ORDERABLE S [facility] [place] [address] * CRP, acute inflammation (08/18/2016 5:08 PM EDT) C-Reactive Protein 0.2 <=4.9 mg/L [facility] Blood specimen (specimen) 08/18/2016 5:08 PM EDT 08/18/2016 5:12 PM EDT Narrative Resulting Agency Comment Spec In Lab L Timothy Pandey MD CHEMISTRY ORDERABLES Performing Organization Address [facility] Co de Phone Number [facility] [place] [address] * Hepatic Function Panel (08/18/2016 5:08 PM EDT) Protein, Total 6.9 6.1 - 8.0 gm/dL [facility] Albumin 4.1 3.2 - 5.2 gm/dL [facility] Aspartate Aminotransferase 24 0 - 39 unit/L [facility] Alanine Aminotransferase 50 0 - 55 unit/L [facility] Alkaline Phosphatase 53 40 - 120 unit/L [facility] Bilirubin, Total 1.1 0.2 - 1.3 mg/dL [facility] Bilirubin, Direct 0.2 0.0 - 0.3 mg/dL [facility] Blood specimen (specimen) 08/18/2016 5:08 PM EDT 08/18/2016 5:12 PM EDT Narrative Resulting Agency Comment Spec In Lab L Timothy Pandey MD CHEMISTRY ORDERABLES Performing Organization Address City/[facility]/ZIP Co de Phone Number [facility] [place] [address] documented in this encounter Visit Diagnoses Diagnosis Crohn's disease of small intestine with fistula- Primary Regional enteritis of small intestine documented in this encounter Care Teams Websphere Process Server Developer Relationship Specialty Start Date End Date Irwin Gonsalez DO [address] [place] [address] PCP - General 05/01/11 03/14/24 documented as of this encounter
--- OUTSIDE RECORDS SUMMARY | 2024-04-18 02:40 | XMS_ITS | Encounter Summary ---
Author Organization [facility] Address [facility] [place] [address] Care Team Providers Care Rubber Liner Name Role Phone Irwin Gonsalez DO Primary Care Provider Reason for Visit * Reason Comments Follow-up Encounter Details Date Type Department Care Team (Late st Contact Info) Description 10/24/2016 8:30 AM EDT Office [place] [address] Apurva Vivas MD [facility] DR [place] [address] Wmwezbk-xy-iix Social History Tobacco Use Types Packs/Day Years [...] spent a total of 15 minutes in jdai-[id number] consultation with the patient, of which 10were in patient education and counseling. Apurva Vivas MD remittance clerk Division of Colon and Rectal Surgery [facility] Pager [phone] documented in this encounter Plan of Treatment [...] as of this encounter Visit Diagnoses Diagnosis Wwofadn-jw-xug Anal fistula documented in this encounter Care Teams Rubber Liner Relationship Specialty Start Date End Date Irwin Gonsalez DO [address] [place] [address] PCP - General 05/01/11 03/14/24 documented as of this encounter
--- OUTSIDE RECORDS SUMMARY | 2024-04-18 02:40 | XMS_ITS | Encounter Summary ---
[place] [address] Care Team Providers Care Eyelet Punch Operator Name Role Phone Irwin Gonsalez DO Primary Care Provider [phone] Reason for Visit * Reason Comments Medication Management Encounter Details Date Type Department Care Team (Late st Contact Info) Description 11/26/2016 Specialty [place] [phone] Adelaide Sánchez Social History Tobacco Use Types [...] this encounter Progress Notes * Adelaide Gonzales [facility] - 11/26/2016 9:38 PM EDT Clinical Management [...] staff will follow up with the pa geovannynt 5-7 days prior to next refill. required consult with pharmacist regarding travel advice with Humira, as the patient's dose will be due [...] up. Adelaide Gonzales RPH 11/26/16 9:40 PM Electronically signed by Adelaide Gonzales [facility] at 11/26/2016 9:45 PM EDT documented in this encounter Plan of Treatment Not on file documented as of this encounter Goals Goal Patient Goal Type Associated Problems Recent Progress Patient-Stated? Author DH Home Medication Compliance and Understanding Patient Facing Action Plan On track( 017 9:39 PM EDT) No Perri Sousa [facility] [...] on filedocumented in this encounter Care Teams Eyelet Punch Operator Relationship Specialty Start Date End Date Iriwn Gonsalez DO [address] [place], [place] [address] [place] [address] PCP - General 05/01/11 03/14/24 documented as of this encounter
--- OUTSIDE RECORDS SUMMARY | 2024-04-18 02:40 | XMS_ITS | Encounter Summary ---
[place] [address] Care Team Providers Care Associate Professor Of Sociology Name Role Phone Irwin Gonsalez DO Primary Care Provider Encounter Details Date Type Department Care Team (Late st Contact Info) Description 07/28/2016 Notes [place] [address] Brenden Dugan, MULTIGRAPHER Social History Tobacco Use Types Packs/Day Years [...] Dugan [facility] - 07/28/2016 12:49 PM EDT [facility] Prior Authorization Medication: Humira (Reathorization) RX Insurance: [place] [employer] [facility] ([place]) Insurance Phone #: [phone] Insurance Fax #: Sent Via Cover My Meds ID #: [id number] Spoke With: MARCOS Reference #: [id number] Date MARCOS Sent: 07/28/2016 Approval Date: 07/28/2016 [...] on filedocumented in this encounter Care Teams Associate Professor Of Sociology Relationship Specialty Start Date End Date Irwin Gonsalez DO [address] [place] [address] PCP - General 05/01/11 03/14/24 documented as of this encounter
--- OUTSIDE RECORDS SUMMARY | 2024-04-18 02:40 | XMS_ITS | Encounter Summary ---
[place] [address] Care Team Providers Care Mixing Tumbler Operator Name Role Phone Irwin Gonsalez DO Primary Care Provider Reason for Visit * Reason Onset Date Comments Medication Refill 08/25/2016 Encounter Details Date Type Department Care Team (Late st Contact Info) Description 08/25/2016 [place] [phone] Power Billingsley, [facility] Medication Refill Social History Tobacco Use Types [...] Notes * Telephone Encounter - Power Billingsley [facility] - 08/25/2016 4:30 PM EDT D-H Specialty [...] on filedocumented in this encounter Care Teams Mixing Tumbler Operator Relationship Specialty Start Date End Date Irwin Gonsalez DO [address] [place] [address] PCP - General 05/01/11 03/14/24 documented as of this encounter
--- OUTSIDE RECORDS SUMMARY | 2024-04-18 02:40 | XMS_ITS | Encounter Summary ---
Author Organization [facility] Address [facility] [place] [address] Care Team Providers Care Dray Driver Name Role Phone Irwin Gonsalez DO Primary Care Provider Encounter Details Date Type Department Care Team (Latest Contact Info) Description 12/10/2016 9:02 AM EDT - 12/10/2016 11:59 PM EDT Hospital [place] [phone] Alyson Husain Jr., MD [facility] [place] [address] Nephrolithiasis Discharge Disposition: Home Social History Tobacco [...] 10:04 am) PATIENT INFO: ID #: ? [id number] ?: ??[birth year] (41 yrs) Name: ? IGOR TOURE ? Visit Date: 12/10/2016 09:27 am PERFORMED BY: Performed By: ? Mary BARRERA, ??Michelle Attending: ?Dean JONES, Roxana Rollins Referred By: ?ALYSON HUSAIN JR Location: ? [place] SERVICE(S) PROVIDED: ??URETRO - Retroperitoneal Complete - [id number] ? [id number] INDICATIONS: ??Nephrolithiasis COMPARISON: CT scan: 03/21/16 RIGHT [...] 12/10/2016 10:04 am) PATIENT INFO: ID #: [id number] : 75 (41 yrs) Name: IGOR TOURE Visit Date: 12/10/2016 09:27 am PERFORMED BY: Performed By: Michelle Hernandez RDMS Attending: Roxana Moran MD Referred By: ALYSON HUSAIN JR Location: [place] SERVICE(S) PROVIDED: URETRO - Retroperitoneal Complete - [id number] INDICATIONS: Nephrolithiasis COMPARISON: CT scan: 03/21/16 RIGHT [...] 10:04 am Alyson Husain Jr., MD IMG US GEN ORDERAB LES documented in this encounter Visit Diagnoses Diagnosis Nephrolithiasis Calculus of kidney documented in this encounter Care Teams Dray Driver Relationship Specialty Start Date End Date Irwin Gonsalez DO [address] [facility] [place] [address] PCP - General 05/01/11 03/14/24 documented as of this encounter
--- OUTSIDE RECORDS SUMMARY | 2024-04-18 02:40 | XMS_ITS | Encounter Summary ---
[place] [address] Care Team Providers Care Prototype Special Build Name Role Phone Irwin Gonsalez DO Primary Care Provider [phone] Reason for Visit * Reason Onset Date Comments Patient Education 05/23/2016 Medication Refill 05/19/2016 Encounter Details Date Type Department Care Team (Late st Contact Info) Description 05/19/2016 [place] [phone] Perri Sousa, [facility] Social History Tobacco Use Types Packs/Day Years [...] Notes * Telephone Encounter - Power Billingsley, [facility] - 07/25/2016 3:41 PM EDT D-H Specialty [...] 2016 * Telephone Encounter - Perri Romo [facility] - 06/17/2016 11:09 AM EDT D-H Specialty [...] refill * Telephone Encounter - Perri Romo [facility] - 05/23/2016 1:45 PM EST [facility] [place] Pharmacy: Clinical Management Plan Diagnosis: Crohn's [...] today. His , Casi, came in to pickling drum operator his Humira. His injection is due today. [...] refill * Telephone Encounter - Perri Romo [facility] - 05/21/2016 1:41 PM EST Left a message for maintenance dose fill confirmation * Telephone Encounter - Perri Romo [facility] - 05/19/2016 1:06 PM EST Left a message for refill confirmation documented in this encounter Plan of Treatment Not on file documented as of this encounter Goals Goal Patient Goal Type Associated Problems Recent Progress Patient-Stated? Author DH Home Medication Compliance and Understanding Patient Facing Action Plan On track( 017 9:39 PM EDT) No Perri Sousa [facility] Note: Patient's specific desired [...] on filedocumented in this encounter Care Teams Prototype Special Build Relationship Specialty Start Date End Date Irwin Gonsalez DO [address] [place] [address] PCP - General 05/01/11 03/14/24 documented as of this encounter
--- OUTSIDE RECORDS SUMMARY | 2024-04-18 02:40 | XMS_ITS | Encounter Summary ---
Author Organization [facility] Address [facility] [place] [address] Care Team Providers Care Meter Technician Name Role Phone Irwin Gonsalez DO Primary Care Provider Reason for Visit * Reason Comments Nephrolithiasis Encounter Details Date Type Department Care Team (Late st Contact Info) Description 12/10/2016 10:00 AM EDT [place] [address] Dougie Husain Jr., MD [facility] [place] [address] Nephrolithiasis Social History Tobacco Use Types Packs/Day [...] kidney documented in this encounter Care Teams Meter Technician Relationship Specialty Start Date End Date Irwin Gonsalez DO [address] [place] [address] PCP - General 05/01/11 03/14/24 documented as of this encounter
--- OUTSIDE RECORDS SUMMARY | 2024-04-18 02:40 | XMS_ITS | Encounter Summary ---
[place] [address] Care Team Providers Care Guest Service Host Name Role Phone Irwin Gonsalez DO Primary Care Provider [phone] Reason for Visit * Reason Comments Medication Management Encounter Details Date Type Department Care Team (Late st Contact Info) Description 10/29/2016 Specialty [place] [phone] Perri Sousa [facility] Social History Tobacco Use Types [...] this encounter Progress Notes * Perri Romo [facility] - 10/29/2016 11:29 AM EDT Specialty Pharmacy [...] [facility] med list) -none Medication Adherence Patient reported [...] health goals discussed, reminder to refill or bean picker medication discussed Drug Medication Management Summary Topics [...] health goals discussed, reminder to refill or bean picker medication discussed Time spent: 1-15 min Reviewed [...] on filedocumented in this encounter Care Teams Guest Service Host Relationship Specialty Start Date End Date Irwin Gonsalez DO [address] [place] [address] PCP - General 05/01/11 03/14/24 documented as of this encounter
--- OUTSIDE RECORDS SUMMARY | 2024-04-18 02:40 | XMS_ITS | Encounter Summary ---
[place] [address] Care Team Providers Care Technical Marketing Engineer Name Role Phone Irwin Gonsalez DO Primary Care Provider Reason for Visit * Reason Comments Medication Management Encounter Details Date Type Department Care Team (Late st Contact Info) Description 12/23/2016 Specialty [place]acy [place] [phone] Perri Sousa [facility] Social History Tobacco Use Types Packs/Day Years [...] on filedocumented in this encounter Care Teams Technical Marketing Engineer Relationship Specialty Start Date End Date Irwin Gonsalez DO [address] [place] [address] PCP - General 05/01/11 03/14/24 documented as of this encounter
--- OUTSIDE RECORDS SUMMARY | 2024-04-18 02:40 | XMS_ITS | Encounter Summary ---
Author Organization [facility] Address [facility] [place] [address] Care Team Providers Care Developer Advisor Name Role Phone Irwin Gonsalez DO Primary Care Provider [phone] Encounter Details Date Type Department Care Team (Late st Contact Info) Description 06/06/2016 [place] [address] Alyson Husain Jr., MD [facility] [place] [address] Nephrolithiasis Social History Tobacco Use Types Packs/Day [...] Type Associated Problems Recent Progress Patient-Stated? Author [facility] Medication Compliance and Understanding Patient Facing Action Plan On track( 017 9:39 PM EDT) No Perri Sousa, [facility] Note: Patient's specific desired goal: aLly would like to stay adherent on Humira [...] 10:04 am) PATIENT INFO: ID #: ? [id number] ?: ??[birth year] (41 yrs) Name: ? LALY TOURE ? Visit Date: 12/10/2016 09:27 am PERFORMED BY: Performed By: ? Mary BARRERA, ??Michelle Attending: ?Dean JONES, Roxana Rollins Referred By: ?ALYSON HUSAIN JR Location: ? [place] SERVICE(S) PROVIDED: ??URETRO - Retroperitoneal Complete - [id number] ? [id number] INDICATIONS: ??Nephrolithiasis COMPARISON: CT scan: 03/21/16 RIGHT [...] 12/10/2016 10:04 am) PATIENT INFO: ID #: [id number] : 75 (41 yrs) Name: LALY CARREROKIRT Visit Date: 12/10/2016 09:27 am PERFORMED BY: Performed By: Michelle Hernandez RDMS Attending: Roxana Moran MD Referred By: ALYSON HUSAIN JR Location: [place] SERVICE(S) PROVIDED: URETRO - Retroperitoneal Complete - [id number] INDICATIONS: Nephrolithiasis COMPARISON: CT scan: 03/21/16 RIGHT [...] kidney documented in this encounter Care Teams Developer Advisor Relationship Specialty Start Date End Date Irwin Gonsalez DO [address] [place] [address] PCP - General 05/01/11 03/14/24 documented as of this encounter
--- OUTSIDE RECORDS SUMMARY | 2024-04-18 02:40 | XMS_ITS | Encounter Summary ---
Author Organization [facility] Address [facility] [place] [address] Care Team Providers Care Precision Structural Metal Fitter Name Role Phone Irwin Gonsalez DO [...] Expiration Date Visits Re quested Visits Authorized [id number] 1 1 Encounter Details Date Type Department Care Team (Late st Contact Info) Description 05/23/2016 8:50 AM EST Anesthesia Event [place] [phone] Harmeet Hope DO Seiffert, Ellen A, MD [facility] [place] [address] Anesthesia Record Procedure Summary Procedure Name Responsible [...] 0807; median cubital vein (antecubital fossa), left; kbhx-tgc-sgritr catheter system; 20 gauge; distraction, intradermal injection, [...] Hope DO - 05/23/2016 3:18 PM EST [facility] Department of Anesthesiology Post-procedure Note Patient: Igor Woodruff Procedure Summary Date Anesthesia Start Anesthesia Stop Room / Location 05/23/16 0850 1125 [facility] OR [address] [place] [address] [facility] Procedure Diagnosis Surgeon Responsible Provider CYSTO, [...] All Anesthesia Providers: Anesthesiologist: Harmeet Hope DO CONSTRUCTION FRAMER: Katya Wolff CRNA Last (1hr) Vitals: BP Temp Pulse Resp SpO2 Patient Location: PACU/[facility] Level of Consciousness: Awake and Alert Pain [...] Diagnosis ??? Perianal abscess, right posterior ??? Mfvhiam-uj-pby ??? Crohn's ileitis ??? diagnosed at age [...] performed by Dougie Husain Jr., MD at [facility] ??? PRO COLONOSCOPY, BIOPSY 05/01/2011 COLONOSCOPY FLEXIBLE, WITH BX performed by Ramonita MATAMOROS at [facility] ENDOSCOPY ??? PRO COLONOSCOPY, DIAGNOSTIC 02/25/2013 COLONOSCOPY, DIAGNOSTIC performed by Ramonita Matamoros MD at [facility] ENDOSCOPY ??? PRO CYSTO/URETERO/PYELOSCOPY, DX Left 05/02/2016 CYSTOURETEROSCOPY, DIAGNOSTIC (WRVU 5.75) performed by Dougie Husain Jr., MD at [facility] OSC ??? PRO CYSTOSCOPY, INSERT URETERAL STENT Left 05/02/2016 CYSTO, STENT PLACEMENT (WRVU 2.82) performed by Dougie Husain Jr., MD at [facility] OSC ??? PRO CYSTOURETHROSCOPY, URETER CATHETER Left 05/02/2016 CYSTO, RETROGRADE, URETEROPYELOGRAPHY (WRVU 2.37) performed by Dougie Husain Jr., MD at [facility]SC ??? PRO LAP, SURG, COLECTOMY, W/REMVL TERM ILEUM 10/29/2010 ??LAPAROSCOPIC ASSISTED COLECTOMY, PARTIAL, REM.TERMINAL ILEUM performed by TORITO MOHAN at [facility] MAIN OR ??? PRO PLACEMENT, SETON N/A 02/26/2016 ANAL SETON PLACEMENT (WRVU 3) performed by Apurva Vivas MD at [facility] MAIN OR ??? PRO SURG DIAGNOSTIC EXAM, ANORECTAL N/A 02/26/2016 ANORECTAL EXAM, REQUIRING ANESTHESIA, DIAGNOSTIC (WRVU 1.8) performed by Apurva Vivas MD at [facility] MAIN OR Social History Substance Use [...] with patient and spouse. Plan discussed with CONSTRUCTION FRAMER. PAT Staff Note Attending NOTE Brief HPI: [...] in dextrose 5% 200mL 400 mg, Intravenous, [employer] TO O.R., 1 dose, On Thu05/23/16 at [...] r documented in this encounter Care Teams Precision Structural Metal Fitter Relationship Specialty Start Date End Date Irwni Gonsalez DO [address] [place] [address] PCP - General 05/01/11 03/14/24 documented as of this encounter
--- OUTSIDE RECORDS SUMMARY | 2024-04-18 02:40 | XMS_ITS | Encounter Summary ---
Author Organization [facility] Address [facility] [place] [address] Care Team Providers Care E Commerce Merchandising Coordinator Name Role Phone Irwin Gonsalez DO [...] Expiration Date Visits Re quested Visits Authorized [id number] 1 1 Encounter Details Date Type Department Care Team (Latest Contact Info) Description 05/23/2016 7:49 AM EST - 05/23/2016 12:31 PM EST Hospital Encounter [place] [id number] Dougie Husain Jr., MD [facility] [place] [address] Discharge Disposition: Home Social History Tobacco Use [...] closest emergency room or call the hospital covering machine operator helper at [phone] and ask for physician continuity editor covering for your physician. Questions or problems after 5pm or on a weekend: Call the [facility] covering machine operator helper at and ask for the physician continuity editor covering for your doctor. * Patient Instructions* Brent Chand - 05/23/2016 11:15 AM EST Call your doctor for: ??? fevers greater than 101 ??? severe nausea or vomiting ??? increasing pain not controlled by pain medications The number for questions is [phone] before 5 PM weekdays and [phone] after 5 PM and weekends. Activity level: [...] forstent removal in the office. Please call [phone] if you do not receive your appointment. [...] presenting for attempted URS/stent placement for his [id number] renal stone. ?? No change to medical [...] Brent Chand - 05/23/2016 11:17 AM EST [facility] Operative Note Patient Name: Igor Woodruff : [id number] MR#: [id number] Case Date: 05/23/2016 Surgeon: Surgeon(s) and Role: [...] Operative Note Patient Name: Igor Woodruff : [id number] MR#: [id number] Case Date: 05/23/2016 Surgeon: Surgeon(s) and Role: [...] Husain Jr., MD IMG FLUORO ORDERAB LES [place], [place] * Kidney Stone Analysis (05/23/2016 11:10 AM EST) Kidney Stone Analysis (MAY) Test ? Result ?Flag ??Unit ??RefValue ------- Kidney Stone Analysis ??Source: ?Left Renal ??1st Constituent: ?90% Calcium oxalate monohydrate ??2nd Constituent: ?10% Calcium oxalate dihydrate ? ---ADDITIONAL INFORMATION------- ?This test was developed and its performance characteristics ?determined by [facility] in a manner consistent with CLIA ?requirements. This test has not been cleared or approved by ?the U.S. Food and Drug Administration. ?Test Performed by: ?[facility] ?[address] [place] [address] [facility] Calculus specimen (specimen) 05/23/2016 11:10 AM EST 05/23/2016 1:11 PM EST Narrative Resulting Agency Comment Spec In Lab Dougie Husain Jr., MD LAB SEND OUT ORDER CHASE [facility] [place] [address] documented in this encounter Visit Diagnoses Not [...] dextrose 5% 200mL (COMPLETED) 400 mg, Intravenous, US MARKETING DIRECTOR TO O.R., 1 dose, On Thu05/23/16 at [...] Recovery documented in this encounter Care Teams E Commerce Merchandising Coordinator Relationship Specialty Start Date End Date Irwin Gonsalez DO [address] [place] [address] PCP - General 05/01/11 03/14/24 documented as of this encounter
--- OUTSIDE RECORDS SUMMARY | 2024-04-18 02:41 | XMS_ITS | Encounter Summary ---
Author Organization [facility] Address [facility] [place] [address] Care Team Providers Care Licensed Customs Broker Name Role Phone Irwin Gonsalez DO Primary Care Provider Encounter Details Date Type Department Care Team (Latest Contact Info) Description 03/04/2016 5:46 PM EST - 03/04/2016 11:59 PM EST Hospital Encounter XRay at [address] [place] [address] Ramonita Pandey MD [facility] [address] Hematuria Discharge Disposition: Home Social History Tobacco [...] unspecified documented in this encounter Care Teams Licensed Customs Broker Relationship Specialty Start Date End Date Irwin Gonsalez DO [address] [facility] [address] [place] [address] PCP - General 05/01/11 03/14/24 documented as of this encounter
--- OUTSIDE RECORDS SUMMARY | 2024-04-18 02:41 | XMS_ITS | Encounter Summary ---
Author Organization [facility] [place] [address] Care Team Providers Care Sterile Technician Name Role Phone Irwin Gonsalez DO Primary Care Provider Reason for Visit * Reason Comments Follow-up Encounter Details Date Type Department Care Team (Late st Contact Info) Description 04/08/2016 2:30 PM EST Office [place] [address] Nereyda Salgado, POLYETHYLENE BAG MACHINE OPERATOR [facility] [place] [address] Crohn's disease of small intestine with other [...] encounter Progress Notes * Nereyda Salgado C, POLYETHYLENE BAG MACHINE OPERATOR - 04/08/2016 2:30 PM EST PROBLEM LIST [...] REM.TERMINAL ILEUM performed by TORITO MOHAN at [facility] MAIN OR ??? Pro colonoscopy, biopsy 05/01/2011 COLONOSCOPY FLEXIBLE, WITH BX performed by Ramonita MATAMOROS at [facility] ENDOSCOPY ??? Pro colonoscopy, diagnostic 02/25/2013 COLONOSCOPY, DIAGNOSTIC performed by Ramonita Matamoros MD at [facility] ENDOSCOPY ??? Pro surg diagnostic exam, anorectal N/A 02/26/2016 ANORECTAL EXAM, REQUIRING ANESTHESIA, DIAGNOSTIC (WRVU 1.8) performed by Apurva Vivas MD at [facility] MAIN OR ??? Pro placement, seton N/A 02/26/2016 ANAL SETON PLACEMENT (WRVU 3) performed by Apurva Vivas MD at [facility] MAIN OR Social History Social History ??? [...] on file documented as of this encounter Visit Diagnoses Diagnosis Crohn's disease of small intestine with other complication documented in this encounter Care Teams Sterile Technician Relationship Specialty Start Date End Date Irwin Gonsalez DO [address] [place] [address] PCP - General 05/01/11 03/14/24 documented as of this encounter
--- OUTSIDE RECORDS SUMMARY | 2024-04-18 02:41 | XMS_ITS | Encounter Summary ---
Author Organization [place] [address] Care Team Providers Care Palletiser Operator Name Role Phone Irwin Gonsalez DO Primary Care Provider Reason for Referral * Diagnostic Test (Routine) - Closed Specialty Diagnoses / Procedures Referred By Haresh powers Referred To Contact Radiology Diagnoses Gross hematuria Procedures CT Abdomen & Pelvis wwo Contrast (Generic) Patria Barnes APRN [facility] [place] [address] [facility] [place] [address] Referral ID Status Reason Start Date Expiration Date V isits Requested Visits Authorized [id number] Closed Specialty Service Requested 03/20/2016 05/18/2016 1 1 Encounter Details Date Type Department Care Team (Late st Contact Info) Description 03/07/2016 Orders [place] [address] Patria Barnes APRN Gross hematuria [...] of this encounter Progress Notes * Patria Barnes APRN - 03/07/2016 4:37 PM EST Gross hematuria. No allergies to contrast. Has not seen Urology. No recent cre. Cre, CTU and cystoscopy for gross hematuria. He had recent MRE for Crohn's. Will gethim booked for appt matilda. documented in this encounter Plan of Treatment Not on file documented as of this encounter Results * [...] EST) Creatinine 0.84 0.80 - 1.50 mg/dL [facility] Comment: Please note that the pediatric reference intervals supplied above were not validated at [facility]. Results from pediatric patients should be interpreted in conjunction to the patient's age, height and muscle mass. Est Glomerular Filtration Rate >60 >=60 [facility] Comment: This estimated [...] the following links into your internet browser. [email or web address] Blood specimen (specimen) 03/21/2016 4:32 PM EST 03/21/2016 4:36 PM EST Narrative Resulting Agency Comment Spec In Lab Warren Reeves MD CHEMISTRY ORDERABLES Performing Organization Address City/State/[facility] Co de Phone Number [facility] [place] [address] documented in this encounter Visit Diagnoses Diagnosis Gross hematuria Gross hematuria documented in this encounter Care Teams Palletiser Operator Relationship Specialty Start Date End Date Irwin Gonsalez DO [address] [place] [address] PCP - General 05/01/11 03/14/24 documented as of this encounter
--- OUTSIDE RECORDS SUMMARY | 2024-04-18 02:41 | XMS_ITS | Encounter Summary ---
Author Organization [facility] Address [facility] [place] [address] Care Team Providers Care Wire Harness Assembler Name Role Phone Irwin Gonsalez DO Primary Care Provider Encounter Details Date Type Department Care Team (Late st Contact Info) Description 04/30/2016 3:20 PM EST [place] [address] Lexy Choi MD [facility] [place] [address] Gross hematuria Social History Tobacco Use Types [...] and cola. You do not need to dejsjm44 ounces of water today. Urination: You will likely have a small amount of blood in your urine for the next several days. This is normal; however, if you are passing large amounts of blood clots or are unable to void please call our office at [phone] before 5PM or [phone] after hours. Please call if: * you have copious blood in your urine * fevers greater than 101.3 F * you are unable to void The number for questions is [phone] before 5 PM weekdays and [phone] after 5 PM and weekends. Follow-up: Per [...] Culture No growth (Less than 1,000 cfu/ml). [facility] Urine specimen obtained by clean catch procedure (specimen) 04/30/2016 3:28 PM EST 04/30/2016 4:44 PM EST Narrative Resulting Agency Comment Spec In Lab Lexy Choi MD MICROBIOLOGY - GEN ERAL ORDERABLES [facility] [place] [address] * (ABNORMAL) Urinalysis with reflex Culture (04/30/2016 3:28 PM EST) Glucose, Urine Dipstick Negative Negative mg/dL [facility] Protein, Urine Dipstick Negative Negative mg/dL [facility] Bilirubin, Urine Dipstick Negative Negative mg/dL [facility] Comment: Clinical correlation required for positive Urine Bilirubin results as false positive may occur with some drugs and drug related products. If a false positive is suspected a serum total bilirubin should be considered if clinically indicated. Urobilinogen, Urine Dipstick Normal Normal mg/dL [facility] pH, Urn (dipstick) 6.0 5.0 - 8.0 [facility] Blood, Urine Dipstick Large(A) Negative mg/dL [facility] Ketone, Urine Dipstick Negative Negative mg/dL [facility] Nitrite, Urine Dipstick Negative Negative [facility] Leukocytes, Urine Dipstick Small(A) Negative mcL [facility] Appearance, Urine Dipstick Clear Clear [facility] Specific [place] Urine Automated 1.009 1.002 - 1.030 [facility] Color, Urine Dipstick Yellow Yellow [facility] RBC, Urine 28(H) 0 - 3 /HPF [facility] WBC, Urine 12(H) 0 - 3 /HPF [facility] Bacteria, Urine Rare(A) None /HPF [facility] Squamous Epithelial Cells, Urine <1 <=4 /HPF [facility] Reflex to Culture Yes [facility] Urine specimen obtained by clean catch procedure (specimen) 04/30/2016 3:28 PM EST 04/30/2016 4:11 PM EST Narrative Resulting Agency Comment Spec In Lab Lexy Choi MD URINE ORDERABLES Performing Organization Address City/State/[facility] Co de Phone Number [facility] [place] [address] documented in this encounter Visit Diagnoses Diagnosis Gross hematuria documented in this encounter Care Teams Wire Harness Assembler Relationship Specialty Start Date End Date Irwin Gonsalez DO [address] [place] [address] [address] [place] [address] PCP - General 05/01/11 03/14/24 documented as of this encounter
--- OUTSIDE RECORDS SUMMARY | 2024-04-18 02:41 | XMS_ITS | Encounter Summary ---
Author Organization [facility] [place] [address] Care Team Providers Care Netbackup Admin Name Role Phone Irwin Gonsalez DO Primary Care Provider [phone] Encounter Details Date Type Department Care Team (Late st Contact Info) Description 03/26/2016 11:30 AM EST Office [place] [address] Yadira Driver PA [address] [place] [id number] Eghdtpk-tx-flk; Perianal abscess, right posterior Social History Tobacco [...] Patient is currently scheduled to see his driver engineer next week for discussions re starting biologics. [...] PA-C Division of Colon & Rectal Surgery [facility] Pager [phone] CC PCP: Irwin Gonsalez DO documented in this encounter Plan of Treatment Not on file documented as of this encounter Visit Diagnoses Diagnosis Ctwdrig-td-enx Anal fistula Perianal abscess, right posterior Abscess of anal and rectal regions documented in this encounter Care Teams Netbackup Admin Relationship Specialty Start Date End Date Irwin Gonsalez DO [address] [place] [address] PCP - General 05/01/11 03/14/24 documented as of this encounter
--- OUTSIDE RECORDS SUMMARY | 2024-04-18 02:41 | XMS_ITS | Encounter Summary ---
[place] [address] Care Team Providers Care Logistics Operations Director Name Role Phone Irwin Gonsalez DO Primary Care Provider Reason for Visit * Consultation (Routine) - Closed Specialty Diagnoses / Procedures Referred By Haresh powers Referred To Contact Urology Diagnoses Hematuria Ramonita Matamoros MD [facility] [place] [address] [facility] [place] [address] Referral ID Status Reason Start Date Expiration Date V isits Requested Visits Authorized [id number] Closed Consult, Test & Treat 03/04/2016 03/04/2017 1 1 Encounter Details Date Type Department Care Team (Late st Contact Info) Description 04/30/2016 2:40 PM EST [place] [address] Lexy Choi MD [facility] [place] [address] Gross hematuria (Primary Dx); Renal [...] ??? Perianal abscess, right posterior K61.0 ??? Wbpjjwl-mk-rda K60.3 Past Surgical History Procedure Laterality Date ??? Appendectomy 2000 ??? Meniscectomy 2002 arthroscopic, R knee ??? Pro lap, surg, colectomy, w/remvl term ileum 10/29/2010 ??LAPAROSCOPIC ASSISTED COLECTOMY, PARTIAL, REM.TERMINAL ILEUM performed by TORITO MOHAN at [facility] MAIN OR ??? Pro colonoscopy, biopsy 05/01/2011 COLONOSCOPY FLEXIBLE, WITH BX performed by Ramonita MATAMOROS at [facility] ENDOSCOPY ??? Pro colonoscopy, diagnostic 02/25/2013 COLONOSCOPY, DIAGNOSTIC performed by Ramonita Matamoros MD at [facility] ENDOSCOPY ??? Pro surg diagnostic exam, anorectal N/A 02/26/2016 ANORECTAL EXAM, REQUIRING ANESTHESIA, DIAGNOSTIC (WRVU 1.8) performed by Apurva Vivas MD at [facility] MAIN OR ??? Pro placement, seton N/A 02/26/2016 ANAL SETON PLACEMENT (WRVU 3) performed by Apurva Vivas MD at [facility] MAIN OR Current Outpatient Prescriptions: ??? [...] kidney documented in this encounter Care Teams Logistics Operations Director Relationship Specialty Start Date End Date Irwin Gonsalez DO [address] [facility] [place] [address] PCP - General 05/01/11 03/14/24 documented as of this encounter
--- OUTSIDE RECORDS SUMMARY | 2024-04-18 02:41 | XMS_ITS | Encounter Summary ---
Author Organization [facility] [place] [address] Care Team Providers Care Customer Engineering Specialist Name Role Phone Irwin Gonsalez DO Primary Care Provider Encounter Details Date Type Department Care Team (Late st Contact Info) Description 03/20/2016 Orders [place] [address] Milton Vidales MD [facility] [place] [address] Social History Tobacco Use Types Packs/Day Years [...] filedocumented in this encounter Care Teams Customer Engineering Specialist Relationship Specialty Start Date End Date Irwin Gonsalez DO [address] [place] [address] PCP - General 05/01/11 03/14/24 documented as of this encounter
--- OUTSIDE RECORDS SUMMARY | 2024-04-18 02:41 | XMS_ITS | Encounter Summary ---
[place] [address] Care Team Providers Care Product Support Technician Name Role Phone Irwin Gonsalez DO Primary Care Provider [phone] Encounter Details Date Type Department Care Team (Late st Contact Info) Description 05/09/2016 Telephone [place] [address] Manuel Schneider Social History Tobacco Use Types [...] on filedocumented in this encounter Care Teams Product Support Technician Relationship Specialty Start Date End Date Irwin Gonsalez DO [address] [place] [address] PCP - General 05/01/11 03/14/24 documented as of this encounter
--- OUTSIDE RECORDS SUMMARY | 2024-04-18 02:41 | XMS_ITS | Encounter Summary ---
[place] [address] Care Team Providers Care Interactive Media Marketing Specialist Name Role Phone Irwin Gonsalez DO Primary Care Provider Encounter Details Date Type Department Care Team (Late st Contact Info) Description 04/11/2016 Notes [place] [address] Brenden Dugan, HEALTHCARE PROJECT MANAGER Social History Tobacco Use Types Packs/Day Years [...] Dugan CPHT - 04/11/2016 1:30 PM EST [facility] [facility] Pharmacy Prior Authorization Medication: Humira RX Insurance: LEÓN ([facility]) Insurance Phone #: [phone] Insurance Fax #: [phone] ID #: [id number] Spoke With: MARCOS Reference #: [id number] Date MARCOS Sent: 04/11/2016 Approval Date: 04/11/16-07/15/16 Pharmacy: Notes: Sent MARCOS, await response. documented in this encounter Plan of Treatment Not on file documented as of this encounter Visit Diagnoses Not on filedocumented in this encounter Care Teams Interactive Media Marketing Specialist Relationship Specialty Start Date End Date Irwin Gonsalez DO [address] [place] [address] PCP - General 05/01/11 03/14/24 documented as of this encounter
--- OUTSIDE RECORDS SUMMARY | 2024-04-18 02:41 | XMS_ITS | Encounter Summary ---
Author Organization [facility] Address [facility] [place] [address] Care Team Providers Care Food Product Inspector Name Role Phone Irwin Gonsalez DO Primary Care Provider Encounter Details Date Type Department Care Team (Late st Contact Info) Description 03/05/2016 Orders [place] [address] Ramonita Pandey MD [facility] [place] [address] Gross hematuria Social History Tobacco Use Types [...] hematuria documented in this encounter Care Teams Food Product Inspector Relationship Specialty Start Date End Date Irwin Gonsalez DO [address] [place] [address] PCP - General 05/01/11 03/14/24 documented as of this encounter
--- OUTSIDE RECORDS SUMMARY | 2024-04-18 02:41 | XMS_ITS | Encounter Summary ---
Author Organization [facility] [place] [address] Care Team Providers Care Rn Er Name Role Phone Irwin Gonsalez DO Primary Care Provider Reason for Visit * Auth/Cert Specialty Diagnoses / Procedures Referred By Haresh powers Referred To Contact Diagnoses Gross hematuria stone Procedures PRO CYSTO/URETERO/PYELOSCOPY W/LITHOTRIPSY PRO CYSTOSCOPY, INSERT URETERAL STENT CYSTOURETEROSCOPY, LITHOTRIPSY (WRVU 7.5) CYSTO, STENT PLACEMENT (WRVU 2.82) MODIFIER HOLMIUM LASER Referral ID Status Reason Start Date Expiration Date Visits Re quested Visits Authorized [id number] 1 1 Encounter Details Date Type Department Care Team (Late st Contact Info) Description 05/02/2016 9:51 AM EST Anesthesia Event [place] [place] [address] Jeffrey Coleman MD [facility] [place] [address] Kelsey Armenta MD [facility] [place] [address] Anesthesia Record Procedure Summary Procedure Name Responsible [...] 0917; metacarpal vein (top of hand), left; jswl-czv-rpuvdd catheter system; 20 gauge, 1 in length; [...] Coleman MD - 05/02/2016 1:08 PM EST [facility] [place] Department of Anesthesiology Post-procedure Note Patient: Igor Woodruff Procedure Summary Date Anesthesia Start Anesthesia Stop Room / Location 05/02/16 0951 1051 [facility] OR [address] [place] [address] [facility] Procedure Diagnosis Surgeon Responsible Provider CYSTO, STENT PLACEMENT (WRVU 2.82) (Left Bladder); CYSTOURETEROSCOPY, DIAGNOSTIC (WRVU 5.75) (Left Bladder); CYSTO, RETROGRADE, URETEROPYELOGRAPHY (WRVU 2.37) (Left Bladder); FLUOROSCOPY (WRVU 0.17) (Left ) (stone) Dougie Husain Jr., MD Nguyen, Tung T, MD All Anesthesia Providers: Anesthesiologist: Jeffrey Coleman MD CAR SERVICER: Kacey Howell CRNA Last (1hr) Vitals: BP 106/71 (05/02/16 1255) Temp Pulse Resp SpO2 100 % (05/02/16 1225) Patient Location: PACU/[facility] Level of Consciousness: Awake and Alert [...] Diagnosis ??? Perianal abscess, right posterior ??? Qibvemn-pr-pyc ??? Crohn's ileitis ??? diagnosed at age [...] REM.TERMINAL ILEUM performed by TORITO MOHAN at [facility] MAIN OR ??? Pro colonoscopy, biopsy 05/01/2011 COLONOSCOPY FLEXIBLE, WITH BX performed by Ramonita PANDEY at [facility] ENDOSCOPY ??? Pro colonoscopy, diagnostic 02/25/2013 COLONOSCOPY, DIAGNOSTIC performed by Ramonita Pandey MD at [facility] ENDOSCOPY ??? Pro surg diagnostic exam, anorectal N/A 02/26/2016 ANORECTAL EXAM, REQUIRING ANESTHESIA, DIAGNOSTIC (WRVU 1.8) performed by Apurva Vivas MD at [facility] MAIN OR ??? Pro placement, seton N/A 02/26/2016 ANAL SETON PLACEMENT (WRVU 3) performed by Apurva Vivas MD at [facility] MAIN OR Social History Substance Use [...] with patient and spouse. Plan discussed with CAR SERVICER. PAT Staff Note Attending NOTE Brief HPI: [...] mg documented in this encounter Care Teams Rn Er Relationship Specialty Start Date End Date Irwin Gonsalez DO [address] [place] [address] PCP - General 05/01/11 03/14/24 documented as of this encounter
--- OUTSIDE RECORDS SUMMARY | 2024-04-18 02:41 | XMS_ITS | Encounter Summary ---
[place] [address] Care Team Providers Care Certified Diabetes Educator Name Role Phone Irwin oGnsalez DO Primary Care Provider Encounter Details Date Type Department Care Team (Latest Contact Info) Description 03/21/2016 4:15 PM EST Laboratory Appointment Lab [address] [place] [address] Crohn's disease with other complication, [...] 4:32 PM EST) Neutrophil % 57.6 % [facility] Neutrophil Absolute 3.02 1.70 - 6.10 x10(3)/[facility] Lymph % 33.6 % [facility] Lymphocytes Abs 1.8 0.9 - 3.2 x10(3)/[facility] Monocyte % 5.7 % [facility] Monocyte Abs 0.3 0.3 - 0.9 x10(3)/[facility] Eos % 2.5 % [facility] Eosinophils Abs 0.1 0.0 - 0.4 x10(3)/[facility] Basophil % 0.4 % [facility] Baso Absolute 0.0 0.0 - 0.1 x10(3)/[facility] Immature Gran % 0.20 % [facility] Comment: Immature granulocytes(IG's)percentage and absolute count will include metamyelocytes, myelocytes, and promyelocytes. Blood smears from CBCs yielding IG's will be scanned manually for concordance. If this scan disagrees with the automated IG or if promyelocytes are noted, a manual differential will be performed. Immature Gran Absolute 0.01 0.00 - 0.04 x10(3)/[facility] Blood specimen (specimen) 03/21/2016 4:32 PM EST 03/21/2016 4:36 PM EST Narrative Resulting Agency Comment Spec In Lab L Timothy Pandey MD HEMATOLOGY ORDERABLE S [facility] [place] [address] * Hemogram (03/21/2016 4:32 PM EST) Pathologist [facility] White Blood Cell 5.2 4.0 - 9.5 x10(3)/[facility] Red Blood Cell 4.89 4.58 - 5.54 x10(6)/[facility] Hemoglobin 14.8 13.7 - 16.5 gm/dL [facility] Hematocrit 42.2 40.5 - 48.5 % [facility] Mean Cell Volume 86.3 82.9 - 93.1 [facility] Mean Cell Hemoglobin 30.3 27.5 - 32.1 pg [facility] Mean Cell Hemoglobin Concentration 35.1 32.0 - 35.7 gm/dL [facility] Platelet 251 145 - 357 x10(3)/[facility] RDW Standard Deviation 40.7 36.0 - 45.0 [facility] RDW coefficient of variation 13.0 11.4 - 13.8 % [facility] Mean Platelet Volume 9.4 7.6 - 12.9 [facility] NRBC% auto 0.0 % [facility] NRBC Absolute 0.000 0.000 - 0.000 x10(3)/[facility] Blood specimen (specimen) 03/21/2016 4:32 PM EST 03/21/2016 4:36 PM EST Narrative Resulting Agency Comment Spec In Lab L Timothy Pandey MD HEMATOLOGY ORDERABLE S [facility] [place] [address] * Creatinine (03/21/2016 4:32 PM EST) Creatinine 0.84 0.80 - 1.50 mg/dL [facility] Comment: Please note that the pediatric reference intervals supplied above were not validated at [facility]. Results from pediatric patients should be interpreted in conjunction to the patient's age, height and muscle mass. Est Glomerular Filtration Rate >60 >=60 [facility] Comment: This estimated GFR (eGFR) [...] the following links into your internet browser. [email or web address] Blood specimen (specimen) 03/21/2016 4:32 PM EST 03/21/2016 4:36 PM EST Narrative Resulting Agency Comment Spec In Lab Warren Reeves MD CHEMISTRY ORDERABLES [facility] [place] [address] * Hepatic Function Panel (03/21/2016 4:32 PM EST) [facility] Protein, Total 7.3 6.1 - 8.0 gm/dL [facility] Albumin 4.4 3.2 - 5.2 gm/dL [facility] Aspartate Aminotransferase 36 0 - 39 unit/L [facility] Alanine Aminotransferase 54 0 - 55 unit/L [facility] Alkaline Phosphatase 54 40 - 120 unit/L [facility] Bilirubin, Total 1.0 0.2 - 1.3 mg/dL [facility] Bilirubin, Direct 0.2 0.0 - 0.3 mg/dL [facility] Blood specimen (specimen) 03/21/2016 4:32 PM EST 03/21/2016 4:36 PM EST Narrative Resulting Agency Comment Spec In Lab L Timothy Pandey MD CHEMISTRY ORDERABLES Performing Organization Address [facility] de Phone Number [facility] [place] [address] * High Sensitivity CRP (03/21/2016 4:32 PM EST) C-Reactive Protein High Sensitivity 0.3 mg/L [facility] Comment: For cardiac risk assessment, [...] 2003; 107:363-369 CRP Cardiac Risk Low Risk [facility] Blood specimen (specimen) 03/21/2016 4:32 PM EST 03/21/2016 4:36 PM EST Narrative Resulting Agency Comment Spec In Lab L Timothy Pandey MD CHEMISTRY ORDERABLES Performing Organization Address [facility] Co de Phone Number [facility] [place] [address] documented in this encounter Visit Diagnoses Diagnosis Crohn's disease with other complication, unspecified gastrointestinal tract location Gross hematuria documented in this encounter Care Teams Certified Diabetes Educator Relationship Specialty Start Date End Date Irwin Gonsalez DO [address] [facility] 1 [place] [address] PCP - General 05/01/11 03/14/24 documented as of this encounter
--- OUTSIDE RECORDS SUMMARY | 2024-04-18 02:41 | XMS_ITS | Encounter Summary ---
[place] [address] Care Team Providers Care Repatcher Name Role Phone Irwin Gonsalez DO Primary Care Provider Reason for Visit * Reason Onset Date Comments Medication Refill 04/10/2016 Encounter Details Date Type Department Care Team (Late st Contact Info) Description 04/10/2016 Refill [place] [phone] Shannan Barnard, RN Social History Tobacco Use [...] on filedocumented in this encounter Care Teams Repatcher Relationship Specialty Start Date End Date Irwin Gonsalez DO [address] [place] [address] [place] [address] PCP - General 05/01/11 03/14/24 documented as of this encounter
--- OUTSIDE RECORDS SUMMARY | 2024-04-18 02:41 | XMS_ITS | Encounter Summary ---
Author Organization [facility] [place] [address] Care Team Providers Care Jewel Bearing Driller Name Role Phone Irwin Gonsalez DO Primary Care Provider [phone] Reason for Visit * Reason Comments Medication Refill Encounter Details Date Type Department Care Team (Late st Contact Info) Description 05/09/2016 Refill [place] [address] Ramonita Pandey MD [facility] [place] [address] Social History Tobacco Use Types Packs/Day Years [...] on filedocumented in this encounter Care Teams Jewel Bearing Driller Relationship Specialty Start Date End Date Irwin Gonsalez DO [address] [place] [address] [place], [place] [id number] PCP - General 05/01/11 03/14/24 documented as of this encounter
--- OUTSIDE RECORDS SUMMARY | 2024-04-18 02:41 | XMS_ITS | Encounter Summary ---
[place] [address] Care Team Providers Care Floors Buffer Name Role Phone Irwin Gonsalez DO Primary Care Provider [phone] Reason for Referral * Diagnostic Test (Routine) - Closed Specialty Diagnoses / Procedures Referred By Contac t Referred To Contact Radiology Diagnoses Gross hematuria Procedures CT Abdomen & Pelvis wwo Contrast (Generic) Patria Barnes APRN [facility] [place] [address] [facility] [place] [address] Referral ID Status Reason Start Date Expiration Date V isits Requested Visits Authorized [id number] Closed Specialty Service Requested 03/20/2016 05/18/2016 1 1 Reason for Visit * Diagnostic Test (Routine) - Closed Specialty Diagnoses / Procedures Referred By Contac t Referred To Contact Radiology Diagnoses Gross hematuria Procedures CT Abdomen & Pelvis wwo Contrast (Generic) Patria Barnes APRN [facility] [place] [address] [facility] [place] [address] Referral ID Status Reason Start Date Expiration Date V isits Requested Visits Authorized [id number] Closed Specialty Service Requested 03/20/2016 05/18/2016 1 1 Encounter Details Date Type Department Care Team (Latest Contact Info) Description 03/21/2016 4:36 PM EST - 03/21/2016 11:59 PM EST Hospital Encounter CT Scan at [facility] [place] [address] Warren Reeves MD [facility] [place] [address] Gross hematuria Discharge Disposition: Home Social History [...] Brenden Goss - 03/21/2016 4:46 PM EST [facility] CT UROGRAM PROCEDURE NAME: LALY TOURE ADDRESS: [address] [place] [address] HOME PHONE: [phone] (home) [phone] (work) MOBILE NUMBER: Telephone Information: REFERRING PROVIDER: Patria Ortiz No Known Allergies PERTINENT PMH: Patient Active Problem List Diagnosis Code ??? 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 Abnormal liver function test R79.89 ??? GERD (gastroesophageal reflux disease) K21.9 ??? Perianal abscess, right posterior K61.0 ??? Xkthprj-lm-vjs K60.3 MED'S: Prior to Admission medications Medication [...] cyst. Warren Reeves MD IMG CT ORDERABLES documented in this encounter Visit [...] mg documented in this encounter Care Teams Floors Buffer Relationship Specialty Start Date End Date Irwin Gonsalez DO [address] [place] [address] [address] [facility] 1 [place] [address] PCP - General 05/01/11 03/14/24 documented as of this encounter
--- OUTSIDE RECORDS SUMMARY | 2024-04-18 02:41 | XMS_ITS | Encounter Summary ---
[place] [address] Care Team Providers Care Road Freight Conductor Name Role Phone Irwin Gonsalez DO Primary Care Provider Reason for Referral * Consultation (Routine) - Closed Specialty Diagnoses / Procedures Referred By Haresh powers Referred To Contact Urology Diagnoses Hematuria Ramonita Pandey MD [facility] [place] [address] [facility] [place] [address] Referral ID Status Reason Start Date Expiration Date V isits Requested Visits Authorized [id number] Closed Consult, Test & Treat 03/04/2016 03/04/2017 1 1 Reason for Visit * Reason Comments Follow-up Encounter Details Date Type Department Care Team (Late st Contact Info) Description 03/04/2016 4:30 PM EST Office Visit [place] [phone] Ramonita Pandey MD [facility] [place] [address] Crohn's disease of small intestine [...] months 25 min of this 35 min [id number] visit was spent counseling the patient in the issues outlined above. Angelo Pandey MD Continuity Clerkcandy maker Section of Gastroenter[place] [address] CC: IRWIN GONSALEZ DO [address] [place] [address] documented in this encounter Plan of Treatment [...] unspecified documented in this encounter Care Teams Road Freight Conductor Relationship Specialty Start Date End Date Irwin Gonsalez DO [address] [facility] 1 [place] [address] PCP - General 05/01/11 03/14/24 documented as of this encounter
--- OUTSIDE RECORDS SUMMARY | 2024-04-18 02:41 | XMS_ITS | Encounter Summary ---
Author Organization [facility] Address [facility] [place] [address] Care Team Providers Care Casing Mixer Name Role Phone Irwin Gonsalez DO [...] Expiration Date Visits Re quested Visits Authorized [id number] 1 1 Encounter Details Date Type Department Care Team (Latest Contact Info) Description 05/02/2016 8:26 AM EST - 05/02/2016 1:14 PM [facility] Hospital Encounter Outpatient [place] [address] Dougie Husain Jr., MD [facility] [place] [address] Discharge Disposition: Home Social History Tobacco Use [...] closest emergency room or call the hospital paperback machine operator at [phone] and ask for physician transportation maintenance worker covering for your physician. Questions or problems after 5pm or on a weekend: Call the [facility] paperback machine operator at and ask for the physician transportation maintenance worker covering for your doctor. * Patient Instructions* Melisa Shay - 05/02/2016 11:04 AM EST SECTION OF UROLOGY DISCHARGE INSTRUCTIONS: FOLLOW UP PLAN If not made at the time of discharge, please call [phone] (Urology) for an appointment in 3-4 weeks [...] or concerns related to this hospitalization call: [phone] weekdays, or on weekends or nights call [phone] and ask for the urology resident transportation maintenance worker. KIDNEY STONE PATIENTS Try and drink enough [...] side pain, you should call our office [phone] before 5PM or [phone] after hours. Please remember that this is [...] to urinate please call our office at [phone] 5PM or [phone] after hours. ACTIVITY LEVEL: You should be [...] or concerns The number for questions is [phone] before 5 PM weekdays and [phone] after 5 PM and weekends. documented in [...] in this encounter H&P Notes * Melisa Shay - 05/02/2016 9:45 AM EST UROLOGY PRE-OPERATIVE HISTORY AND PHYSICAL UPDATE Igor Woodruff is a 41 y.o. gentleman presenting for attempted URS/stent placement for his XLUL3hp renal stone. No change to medical history [...] -Consent signed -NPO -Site Marked: LEFT -Antibiotics:Marvin SHAY MD documented in this encounter Miscellaneous Notes * Op Note - Dougie Husain Jr., MD - 05/02/2016 11:02 AM EST [facility] Operative Note Patient Name: Igor Woodruff : [id number] MR#: [id number] Case Date: 05/02/2016 Surgeon: Surgeon(s) and Role: * Dougie Husain Jr., MD - Primary * Melisa Shay MD - Resident-Surgeon Chief Preoperative diagnosis: LEFT renal stone Postoperative diagnosis: LEFT renal stone Procedure(s) (LRB): CYSTO, STENT PLACEMENT (WRVU 2.82) (Left) CYSTOURETEROSCOPY, DIAGNOSTIC (WRVU 5.75) (Left) CYSTO, RETROGRADE, URETEROPYELOGRAPHY (WRVU 2.37) (Left) FLUOROSCOPY (WRVU 0.17) (Left) Anesthesia: General Findings: -Large median lobe -No LEFT hydroureteronephrosis on RPG / ureter narrowed throughout entire course -[place] ureter too narrow to accommodate either micro-6 [...] presenting for attempted URS/stent placement for his TBTF3yf renal stone. After a thorough discussion of [...] procedure. * Brief Op Note - Melisa Shay - 05/02/2016 10:59 AM EST Brief Operative Note Patient Name: Igor Woodruff : [id number] MR#: [id number] Case Date: 05/02/2016 Surgeon: Surgeon(s) and Role: * Dougie Husain Jr., MD - Primary * Melisa Shay MD - Resident-Surgeon Chief Preoperative diagnosis: LEFT renal stone Postoperative diagnosis: LEFT renal stone Procedure(s) (LRB): CYSTO, STENT PLACEMENT (WRVU 2.82) (Left) CYSTOURETEROSCOPY, DIAGNOSTIC (WRVU 5.75) (Left) CYSTO, RETROGRADE, URETEROPYELOGRAPHY (WRVU 2.37) (Left) FLUOROSCOPY (WRVU 0.17) (Left) Anesthesia: General Findings: -Large median lobe -No LEFT hydroureteronephrosis on RPG / ureter narrowed throughout entire course -[place] ureter too narrow to accommodate pediatric rigid [...] radiologist interpretation. ?? Dougie Husain Jr., MD [facility] FLUORO ORDERAB LES [facility] Organization Address City/State/[facility] Co de Phone Number [place], [place] documented in this encounter Visit Diagnoses [...] Recovery documented in this encounter Care Teams Casing Mixer Relationship Specialty Start Date End Date Irwin Gonsalez DO [address] [place] [address] [place] [address] PCP - General 05/01/11 03/14/24 documented as of this encounter
--- OUTSIDE RECORDS SUMMARY | 2024-04-18 02:41 | XMS_ITS | Encounter Summary ---
[place] [address] Care Team Providers Care Business Center Attendant Name Role Phone Irwin Gonsalez DO Primary Care Provider [phone] Reason for Visit * Reason Onset Date Comments Medication Refill 04/25/2016 Encounter Details Date Type Department Care Team (Late st Contact Info) Description 04/25/2016 Ref[place] [phone] Shannan Barnard, RN Social History Tobacco Use [...] filedocumented in this encounter Care Teams Business Center Attendant Relationship Specialty Start Date End Date Irwin Gonsalez DO [address] [place] [address] [place] [address] PCP - General 05/01/11 03/14/24 documented as of this encounter
--- OUTSIDE RECORDS SUMMARY | 2024-04-18 02:41 | XMS_ITS | Encounter Summary ---
Author Organization [facility] Address [facility] [place] [address] Care Team Providers Care Heel Blacker Name Role Phone Irwin Gonsalez DO Primary Care Provider Reason for Visit * Reason Comments Excessive Sweating Encounter Details Date Type Department Care Team (Latest Contact Info) Description 04/25/2016 8:30 AM EST Office Visit Dermatology at [facility] [address] [place] [phone] Reji Norman MD Hyperhidrosis of axilla; Viral [...] Resident Physician - PGY4 Section of Dermatology [facility] * Jaylen Parsons MD - 04/25/2016 8:30 AM EST I [...] section) documented in this encounter Care Teams Heel Blacker Relationship Specialty Start Date End Date Irwin Gonsalez DO [address] [place] [address] [address] [facility] 1 [place] [address] PCP - General 05/01/11 03/14/24 documented as of this encounter
--- OUTSIDE RECORDS SUMMARY | 2024-04-18 02:41 | XMS_ITS | Encounter Summary ---
Author Organization [facility] Address [facility] [place] [address] Care Team Providers Care Research Aide Name Role Phone Irwin Gonsalez DO [...] Expiration Date Visits Re quested Visits Authorized [id number] 1 1 Encounter Details Date Type Department Care Team (Late st Contact Info) Description 05/02/2016 9:28 AM EST - 05/02/2016 11:38 AM EST Surgery Outpatient [place] [address] Dougie Husain Jr., MD [facility] [place] [address] CYSTO, STENT PLACEMENT (WRVU 2.82) Social History [...] closest emergency room or call the hospital make up operator helper at [phone] and ask for physician nurse receptionist covering for your physician. Questions or problems after 5pm or on a weekend: Call the [facility] make up operator helper at and ask for the physician nurse receptionist covering for your doctor. * Patient Instructions* Maritza Lundberg - 05/02/2016 11:04 AM EST SECTION OF UROLOGY DISCHARGE INSTRUCTIONS: FOLLOW UP PLAN If not made at the time of discharge, please call [phone] (Urology) for an appointment in 3-4 weeks [...] or concerns related to this hospitalization call: [phone] weekdays, or on weekends or nights call [phone] and ask for the urology resident nurse receptionist. KIDNEY STONE PATIENTS Try and drink enough [...] side pain, you should call our office [phone] before 5PM or [phone] after hours. Please remember that this is [...] to urinate please call our office at [phone] 5PM or [phone] after hours. ACTIVITY LEVEL: You should be [...] or concerns The number for questions is [phone] before 5 PM weekdays and [phone] after 5 PM and weekends. documented in [...] presenting for attempted URS/stent placement for his ZUUB1ot renal stone. No change to medical history [...] Jr., MD - 05/02/2016 11:02 AM EST [facility] Operative Note Patient Name: Igor Woodruff : [id number] MR#: [id number] Case Date: 05/02/2016 Surgeon: Surgeon(s) and Role: [...] RPG / ureter narrowed throughout entire course -[place] ureter too narrow to accommodate either micro-6 [...] presenting for attempted URS/stent placement for his QCPM5io renal stone. After a thorough discussion of [...] Operative Note Patient Name: Igor Woodruff : [id number] MR#: [id number] Case Date: 05/02/2016 Surgeon: Surgeon(s) and Role: [...] RPG / ureter narrowed throughout entire course -[place] ureter too narrow to accommodate pediatric rigid [...] radiologist interpretation. ?? Dougie Husain Jr., MD G FLUORO ORDERAB LES [facility] Organization Address City/State/[facility] Co de Phone Number [place], [place] documented in this encounter Visit Diagnoses [...] Recovery documented in this encounter Care Teams Research Aide Relationship Specialty Start Date End Date Irwin Gonsalez DO [address] [place] [address] PCP - General 05/01/11 03/14/24 documented as of this encounter
--- OUTSIDE RECORDS SUMMARY | 2024-04-18 02:41 | XMS_ITS | Encounter Summary ---
[place] [address] Care Team Providers Care Administrative Assistant Receptionist Name Role Phone Irwin Gonsalez DO Primary Care Provider Encounter Details Date Type Department Care Team (Latest Contact Info) Description 04/25/2016 9:30 AM EST Clinical [place] [phone] Shannan Barnard, RN Crohn's disease with complication, [...] given. Lab requistions will be sent to [facility] All questions answered at time of visit. [...] Tissue documented in this encounter Care Teams Administrative Assistant Receptionist Relationship Specialty Start Date End Date Irwin Gonsalez DO [address] [place] [address] [facility] 1 [place] [address] PCP - General 05/01/11 03/14/24 documented as of this encounter
--- OUTSIDE RECORDS SUMMARY | 2024-04-18 02:42 | XMS_ITS | Encounter Summary ---
Author Organization [facility] [place] [address] Care Team Providers Care Director Education Name Role Phone Irwin Gonsalez DO Primary Care Provider [phone] Encounter Details Date Type Department Care Team (Late st Contact Info) Description 01/22/2016 Telephone [place] [address] Yadira Driver PA [address] [place] [address] Social History Tobacco Use Types Packs/Day Years [...] results. There was no answer,so I [place] [facility] [place] him to return my call to discuss results and further planning. Will await his return call. Yadira Driver PA-C Division of Colon & Rectal Surgery [facility] Pager #[phone] documented in this encounter Plan of Treatment Not on file documented as of this encounter Visit Diagnoses Not on filedocumented in this encounter Care Teams Director Education Relationship Specialty Start Date End Date Irwin Gonsalez DO [address] [place] [address] [address] [facility] 1 [place] [address] PCP - General 05/01/11 03/14/24 documented as of this encounter
--- OUTSIDE RECORDS SUMMARY | 2024-04-18 02:42 | XMS_ITS | Encounter Summary ---
Author Organization [facility] Address [facility] [place] [address] Care Team Providers Care Presser Automatic Name Role Phone Irwin Gonsalez DO Primary Care Provider Reason for Visit * Reason Comments Procedure Encounter Details Date Type Department Care Team (Late st Contact Info) Description 01/01/2016 10:00 AM EDT Office Visit Dermatology at [facility] [address] [place] [phone] Catrina Beckford RN Hyperhidrosis Social History Tobacco [...] interaested in miradry. Discussed and .given the [employer] information sheet. Insurance approval for Botox injections [...] by Ria Foote MD. Treatment delivered by aCtrina Beckford RN, DNC under in-direct on-site supervision [...] 100 Units, Intramuscular, ONCE, 1 dose, On Tu01/01/16 at 1045, Routine Given 01/01/2016 10:17 AM EDT 100 Units documented in this encounter Care Teams Presser Automatic Relationship Specialty Start Date End Date Irwin Gonsalez DO [address] [place] [address] PCP - General 05/01/11 03/14/24 documented as of this encounter
--- OUTSIDE RECORDS SUMMARY | 2024-04-18 02:42 | XMS_ITS | Encounter Summary ---
Author Organization [facility] [place] [address] Care Team Providers Care Turntable Operator Name Role Phone Irwin Gonsalez DO Primary Care Provider [phone] Reason for Visit * Diagnostic Test (Routine) Specialty Diagnoses / Procedures Referred By Haresh powers Referred To Contact Radiology Diagnoses Qfitphq-kb-nle Perianal abscess Procedures MRI Pelvis Soft Tissue(Gi Gu Transformer Molder)WWO Contrast MRI Pelvis w Contrast Yadira Driver PA [address] [place] [address] [place] [address] Referral ID Status Reason Start Date Expiration Date V isits Requested Visits Authorized [id number] Specialty Service Requested 01/11/2016 03/10/2016 1 1 Encounter Details Date Type Department Care Team (Latest Contact Info) Description 01/21/2016 2:32 PM EST - 01/21/2016 11:59 PM EST Hospital [place] [address] Miguel Sharma MD Hmfqzdd-vi-gqp; Perianal abscess, right posterior Discharge Disposition: Home [...] Diagnosis Comments MRI PELVIS SOFT TISSUE (GI MANAGER PORT) WWO CONTRAST Routine 01/21/2016 4:28 PM EST Xdczhuz-wa-rlc Perianal abscess, right posterior documented in this encounter Results * MRI Pelvis Soft Tissue(Gi Gu Transformer Molder)WWO Contrast (01/21/2016 4:28 PM EST) Anatomical Region Laterality Modality Pelvis Magnetic Resonan ce Impressions 01/22/2016 8:50 AM EST Small, short, perianal fistula as described. No evidence of abscess collection. Narrative 01/22/2016 8:50 AM EST EXAMINATION: MRI PELVIS SOFT TISSUE (GI MANAGER PORT) WWO CONTRAST CLINICAL HISTORY: perirectal fistula protocol TECHNIQUE: Multiplanar T2-weighted images with and without fat saturation within the large and small zmlki-yb-qnlh; multiplanar T1-weighted gradient images pre and post intravenous gadolinium (10 mL's Gadavist) with fat saturation and a small rlzew-eu-hckr. COMPARISON: None FINDINGS: A small approximate 2 [...] 01/22/2016 EXAMINATION: MRI PELVIS SOFT TISSUE (GI MANAGER PORT) WWO CONTRAST CLINICAL HISTORY: perirectal fistula protocol TECHNIQUE: Multiplanar T2-weighted images with and without fat saturationwithin the large and small vjlsf-jr-mlul; multiplanar T1-weighted gradient imagespre and post intravenous gadolinium (10 mL's Gadavist) with fat saturation yomaira small xzmwf-dh-ctpt. COMPARISON: None FINDINGS: A small approximate 2 [...] documented in this encounter Visit Diagnoses Diagnosis Qxqvxdv-yq-mbl Anal fistula Perianal abscess, right posterior Abscess [...] mLs documented in this encounter Care Teams Turntable Operator Relationship Specialty Start Date End Date Irwin Gonsalez DO [address] [place] [address] [address] [place] [address] PCP - General 05/01/11 03/14/24 documented as of this encounter
--- OUTSIDE RECORDS SUMMARY | 2024-04-18 02:42 | XMS_ITS | Encounter Summary ---
[facility] [place] [address] Care Team Providers Care Pets Salesperson Name Role Phone Irwin Gonsalez DO Primary Care Provider [phone] Reason for Visit * Reason Comments Medication Refill Encounter Details Date Type Department Care Team (Late st Contact Info) Description 02/04/2015 [place] [address] Ramonita Pandey MD [facility] [place] [address] Social History Tobacco Use Types Packs/Day Years [...] on filedocumented in this encounter Care Teams Pets Salesperson Relationship Specialty Start Date End Date Irwin Gonsalez DO [address] [place], [place] [phone] PCP - General 05/01/11 03/14/24 documented as of this encounter
--- OUTSIDE RECORDS SUMMARY | 2024-04-18 02:42 | XMS_ITS | Encounter Summary ---
Author Organization [facility] [place] [address] Care Team Providers Care Manager Motor Name Role Phone Irwin Gonsalez DO Primary Care Provider Reason for Visit * Reason Comments Follow-up Encounter Details Date Type Department Care Team (Late st Contact Info) Description 10/10/2014 3:30 PM EDT [place] [phone] Ramonita Pandey MD [facility] [place] [address] Crohn's disease, without complications; Crohn's disease, unspecified [...] in about 6-8 months. Angelo Pandey MD Safety Belt Installermolding supervisor Section of Gastroenterology [place] [address] CC: IRWIN GONSALEZ DO (General) [address] [place] [address] documented in this encounter Plan of Treatment Scheduled Orders Name Type Priority Associated Diagnoses Orde r Schedule CBC (with Diff) Lab Routine Crohn's disease, without complications Expected: 10/10/2014 (Approximate), Expires: 01/08/2015 Hepatic Function Panel Lab Routine Crohn's disease, without complications Expected: 10/10/2014 (Approximate), Expires: 01/08/2015 High Sensitivity CRP Lab Routine Crohn's disease, without complications Expected: 10/10/2014 (Approximate), Expires: 01/08/2015 documented as of this encounter Procedures Procedure [...] HEMATOLOGY ORDERABLE S CERNER PHILLYENNIUM * (ABNORMAL) Hemogram (10/10/2014 4:56 PM EDT) [...] MD HEMATOLOGY ORDERABLE S Performing Organization Address [facility] de Phone Number CERMARVIN FRAGAENNIUM * Hepatic Function Panel (10/10/2014 4:56 PM [...] Pandey MD CHEMISTRY ORDERABLES Performing Organization Address [facility] de Phone Number JESENIA LUAIUM * High [...] Pandey MD CHEMISTRY ORDERABLES Performing Organization Address City/State/[facility] Co de Phone Number [facility] documented in this encounter Visit Diagnoses Diagnosis Crohn's disease, without complications Crohn's disease, unspecified complication documented in this encounter Care Teams Manager Motor Relationship Specialty Start Date End Date Irwin Gonsalez DO [address] [place] [address] PCP - General 05/01/11 03/14/24 documented as of this encounter
--- OUTSIDE RECORDS SUMMARY | 2024-04-18 02:42 | XMS_ITS | Encounter Summary ---
[place] [address] Care Team Providers Care Flame Gouger Name Role Phone Irwin Gonsalez DO Primary Care Provider [phone] Encounter Details Date Type Department Care Team (Late st Contact Info) Description 01/29/2016 Orders Only [place] [address] Yadira Driver PA [address] [place] [address] Social History Tobacco Use Types Packs/Day Years [...] on filedocumented in this encounter Care Teams Flame Gouger Relationship Specialty Start Date End Date Irwin Gonsalez DO [address] [place], [place] [phone] PCP - General 05/01/11 03/14/24 documented as of this encounter
--- OUTSIDE RECORDS SUMMARY | 2024-04-18 02:42 | XMS_ITS | Encounter Summary ---
Author Organization [facility] Address [facility] [place] [address] Care Team Providers Care Gang Boss Name Role Phone Irwin Gonsalez DO Primary Care Provider [phone] Reason for Visit * Auth/Cert Specialty Diagnoses [...] Expiration Date Visits Re quested Visits Authorized [id number] 1 1 Encounter Details Date Type Department Care Team (Late st Contact Info) Description 02/26/2016 7:31 AM EST Anesthesia Event [place] [address] Kellie Montana MD [facility] [place] [address] Anesthesia Record Procedure Summary Procedure Name Responsible [...] 0703; metacarpal vein (top of hand), left; joub-dja-dehuru catheter system; 18 gauge; 02/26/16; 0921 02/26/16 [...] Karlos Thomas - 02/26/2016 8:22 AM EST [facility] Department of Anesthesiology Post-procedure Note Patient: Igor Woodruff Procedure Summary Date Anesthesia Start Anesthesia Stop Room / Location 02/26/[address] [place] [address] OR / [facility] MAIN OR Procedure Diagnosis Surgeon Responsible Provider ANORECTAL EXAM, REQUIRING ANESTHESIA, DIAGNOSTIC (WRVU 1.8) (N/A Anus); ANAL SETON PLACEMENT (WRVU 3) (N/A Anus) (FISTULA IN ANO (CROHN'S)) Apurva Vivas MD Chiang, Laura M, MD All Anesthesia Providers: Anesthesiologist: Kellie Montana MD Watch Crystal Cutter: Karlos Thomas MD Last (1hr) Vitals: BP (!) (P) 127/94 (02/26/16820) Temp (P) 36.3 ??C (97.3 ??F) (02/26/16820) Pulse (P) 78 (02/26/16820) Resp (P) 16 (02/26/16820) SpO2 (P) 100 % (02/26/16820) Patient [facility] Level of Consciousness: Conscious but Sleepy Pain [...] Diagnosis ??? Perianal abscess, right posterior ??? Mnsghtr-eh-iuz ??? Crohn's ileitis ??? diagnosed at age [...] REM.TERMINAL ILEUM performed by TORITO MOHAN at [facility] MAIN OR ??? Pro colonoscopy, biopsy 05/01/2011 COLONOSCOPY FLEXIBLE, WITH BX performed by Ramonita MATAMOROS at [facility] ENDOSCOPY ??? Pro colonoscopy, diagnostic 02/25/2013 COLONOSCOPY, DIAGNOSTIC performed by Ramonita Matamoros MD at [facility] ENDOSCOPY Social History Substance Use Topics ??? [...] needed Karlos Thomas MD Anesthesiology, [place]-1 Pager #[phone] Region - Other Informed Consent: Anesthetic plan [...] mg documented in this encounter Care Teams Gang Boss Relationship Specialty Start Date End Date Irwin Gonsalez DO [address] [place] [address] [address] [place] [address] PCP - General 05/01/11 03/14/24 documented as of this encounter
--- OUTSIDE RECORDS SUMMARY | 2024-04-18 02:42 | XMS_ITS | Encounter Summary ---
Author Organization [facility] Address [facility] [place] [address] Care Team Providers Care Non Licensed Nuclear Equipment Operator Name Role Phone Irwin Gonsalez DO Primary Care Provider [phone] Encounter Details Date Type Department Care Team (Late st Contact Info) Description 02/14/2014 3:30 PM EST Follow-[place] [phone] Ramonita Pandey MD [facility] [place] [address] Crohn's disease, unspecified complication; Crohn's disease, without [...] in about 8 months. Angelo Pandey MD Microsoft Developerjumpbasting lining baster Section of Gastroenterology [place] [address] CC: IRWIN GONSALEZ DO [address] [place] [phone] documented in this encounter Miscellaneous Notes * Addendum Note - Bhavesh Espino - 02/14/2014 4:49 PM ESTAddended by: BHAVESH ESPINO on: 02/14/2014 04:49 PM Modules accepted: [...] unspecified complication Expected: 02/14/2014 (Approximate), Expires: 05/15/2014 documented as of this encounter Procedures Procedure [...] MD HEMATOLOGY ORDERABLE S CERNER MILLENNIUM * Hemogram (02/14/2014 5:09 PM EST) White [...] Platelet Volume 9.9 9.0 - 12.0 fL CERMARVIN FRAGAENNIUM Blood specimen (specimen) 02/14/2014 5:09 PM EST 02/14/2014 5:19 PM EST Narrative Resulting Agency Comment Spec In Lab L Timothy Pandey MD HEMATOLOGY ORDERABLE S Performing Organization Address [facility] Co de Phone Number JESENIA GOLDBERG * High Sensitivity CRP (02/14/2014 5:09 PM EST) C-Reactive Protein High Sensitivity 0.3 mg/L [facility] M[facility] Comment: Interpretations: 1) For accurate cardiac [...] the test package insert) References: 1. Page TA et. al. ??AHA/CDC Scientific Statement: Markers of Inflammation and Cardiovascular Disease. ??Circulation 2003; 107:499-511 2. Ridker PM. ??Clinical applications of C-reactive protein for cardiovascular disease detection and prevention. ??Circulation 2003; 107:363-369 Blood specimen (specimen) 02/14/2014 5:09 PM EST 02/14/2014 5:19 PM EST Narrative Resulting Agency Comment Spec In Lab L Timothy Pandey MD CHEMISTRY ORDERABLES Performing Organization Address [facility] Co de Phone Number JESENIA GOLDBERG * Hepatic Function Panel (02/14/2014 5:09 PM EST) Protein, Total 7.0 6.4 - 8.3 gm/dL [facility] MILLENNIUM Albumin 4.5 3.2 - 5.2 gm/dL CERNER MILLENNIUM Aspartate Aminotransferase 24 0 - 39 unit/L CERNER MILLENNIUM Alanine Aminotransferase 32 0 - 55 unit/L [facility] MILLENNIUM Alkaline Phosphatase 56 40 - 120 unit/L [facility] MILLENNIUM Bilirubin, Total 0.8 0.2 - 1.3 mg/dL [facility] MILLEN[facility]UM Bilirubin, Direct 0.1 0.0 - 0.3 mg/dL [facility] MILLENNIUM Blood specimen (specimen) 02/14/2014 5:09 PM EST 02/14/2014 5:19 PM EST Narrative Resulting Agency Comment Spec In Lab L Timothy Pandey MD CHEMISTRY ORDERABLES [facility] * VIT D Total Evaluation (02/14/2014 5:09 PM EST) Vitamin D Total 25 OH 47 30 - 100 ng/mL [facility] Comment: Deficient <10 ng/mL Insufficient 10 to 29 ng/mL Sufficient 30 to 100 ng/mL Potential Intoxication >100 ng/mL According to the US National Osteoporosis Foundation, Vitamin D concentrations >30 ng/mL are sufficient to protect bone health. ??The National Kidney Foundation has similarly stated that patients with Vitamin D concentrations <30ng/mL should be considered to be insufficient or deficient. http://Sovi/DHnatlkidneyfoundation http://Sovi/DHMCVitD The IDS iSYS Vitamin D Immunoassay detects both 25-OH Vitamin D2 and 25-OH Vitamin D3, but only a total Vitamin D concentration is reported. Blood specimen (specimen) 02/14/2014 5:09 PM EST 02/14/2014 5:19 PM EST Narrative Resulting Agency Comment Spec In Lab L Timothy Pandey MD CHEMISTRY ORDERABLES [facility] * Vitamin B12 (02/14/2014 5:09 PM EST) Vitamin B12 446 207 - 974 pg/mL [facility] Blood specimen (specimen) 02/14/2014 5:09 PM EST 02/14/2014 5:19 PM EST Narrative Resulting Agency Comment Spec In Lab L Timothy Pandey MD CHEMISTRY ORDERABLES [facility] documented in this encounter Visit Diagnoses Diagnosis Crohn's disease, unspecified complication Crohn's disease, without complications Abnormal LFTs Other abnormal blood chemistry documented in this encounter Care Teams Non Licensed Nuclear Equipment Operator Relationship Specialty Start Date End Date Irwin Gonsalez DO [address] [place] [address] PCP - General 05/01/11 03/14/24 documented as of this encounter
--- OUTSIDE RECORDS SUMMARY | 2024-04-18 02:42 | XMS_ITS | Encounter Summary ---
Author Organization [facility] Address [facility] [place] [address] Care Team Providers Care Customer Advisor Specialist Name Role Phone Irwin Gonsalez DO [...] Expiration Date Visits Re quested Visits Authorized [id number] 1 1 Encounter Details Date Type Department Care Team (Late st Contact Info) Description 02/26/2016 7:30 AM EST - 02/26/2016 8:53 AM EST [place] [phone] Apurva Vivas MD [facility] [place] [address] ANORECTAL EXAM, REQUIRING ANESTHESIA, DIAGNOSTIC (WRVU 1.8) [...] buttocks. 2. Pain medications ?? Please take uhbk-djg-heigmwa pain medications for post-operative discomfort. ?? Acetaminophen [...] . Divison of Colon and Rectal Surgery, [facility] [address] ??? [place] [address] ??? documented in this encounter Medications at [...] fat saturation within the large and small kwchy-ti-pxuf; multiplanar T1-weighted gradient images pre and post intravenous gadolinium (10 mL's Gadavist) with fat saturation and a small udsvc-zc-rtqf. ?? COMPARISON: None ?? FINDINGS: A small [...] ??? Perianal abscess, right posterior K61.0 ??? Tzjcppx-uh-vvv K60.3 ? Past surgical history: Past??Surgical??History Past Surgical History Procedure Laterality Date ??? Appendectomy ?? 1999 ??? Meniscectomy ?? 2002 ? arthroscopic, R knee ??? Pro lap, surg, colectomy, w/remvl term ileum ?? 10/29/2010 ?LAPAROSCOPIC ASSISTED COLECTOMY, PARTIAL, REM.TERMINAL ILEUM performed by TORITO MOHAN [facility] [facility] ??? Pro colonoscopy, biopsy ?? 05/01/2011 ? COLONOSCOPY FLEXIBLE, WITH BX performed by Ramonita MATAMOROS at [facility] ENDOSCOPY ??? Pro colonoscopy, diagnostic ?? 02/25/2013 ? COLONOSCOPY, DIAGNOSTIC performed by Ramonita Matamoros MD at [facility] ENDOSCOPY ?? Allergies: Review of patient's allergies [...] ? Social history: The patient lives in [place], [place], and works in the [employer] industry. Reports that he has never smoked. [...] seton placement Will need to see his biodiesel division manager to discuss possible changes to his medical management for Crohn's in the setting of fistula in ano. ?? Apurva Vivas MD business development manager Division of Colon and Rectal Surgery [facility] Pager [phone] documented in this encounter Miscellaneous Notes * Op Note - Apurva Vivas MD - 02/26/2016 8:17 AM EST [facility] Operative Note Patient Name: Igor Woodruff : [id number] MR#: [id number] Case Date: 02/26/2016 Surgeon: Surgeon(s) and Role: [...] surgery clinic after being referred by his biodiesel division manager for 5 - 6 months of soreness [...] Recovery documented in this encounter Care Teams Customer Advisor Specialist Relationship Specialty Start Date End Date Irwin Gonsalez DO [address] [place] [address] PCP - General 05/01/11 03/14/24 documented as of this encounter
--- OUTSIDE RECORDS SUMMARY | 2024-04-18 02:42 | XMS_ITS | Encounter Summary ---
Author Organization [facility] Address [facility] [address] Care Team Providers Care Wetlands Conservation Laborer Name Role Phone Irwin Gonsalez DO Primary Care Provider Reason for Visit * Reason Comments Excessive Sweating Encounter Details Date Type Department Care Team (Late st Contact Info) Description 05/08/2015 3:45 PM EST Office Visit Dermatology at [facility] [address] [place] [address] [facility] [place] [address] Hyperhidrosis Social History Tobacco Use Types Packs/Day [...] Units documented in this encounter Care Teams Wetlands Conservation Laborer Relationship Specialty Start Date End Date Irwin Gonsalez DO [address] [place] [address] PCP - General 05/01/11 03/14/24 documented as of this encounter
--- OUTSIDE RECORDS SUMMARY | 2024-04-18 02:42 | XMS_ITS | Encounter Summary ---
Author Organization [facility] Address [facility] [place] [address] Care Team Providers Care Incubator Operator Name Role Phone Irwin Gonsalez DO Primary Care Provider [phone] Reason for Visit * Auth/Cert Specialty Diagnoses [...] Expiration Date Visits Re quested Visits Authorized [id number] 1 1 Encounter Details Date Type Department Care Team (Latest Contact Info) Description 02/26/2016 6:13 AM EST - 02/26/2016 9:23 AM [facility] Hospital Encounter [place] [phone] Apurva Vivas MD [facility] [place] [address] Discharge Disposition: Home Social History Tobacco Use [...] buttocks. 2. Pain medications ?? Please take fgsh-jep-uxiqrej pain medications for post-operative discomfort. ?? Acetaminophen [...] . Divison of Colon and Rectal Surgery, [facility] [address] ??? [place] [address] ??? documented in this encounter Medications at [...] fat saturation within the large and small orswb-xa-rxpg; multiplanar T1-weighted gradient images pre and post intravenous gadolinium (10 mL's Gadavist) with fat saturation and a small mxdwo-pw-ejvr. ?? COMPARISON: None ?? FINDINGS: A small [...] ??? Perianal abscess, right posterior K61.0 ??? Jivsrcw-bg-gjw K60.3 ? Past surgical history: Past??Surgical??History Past Surgical History Procedure Laterality Date ??? Appendectomy ?? 1999 ??? Meniscectomy ?? 2002 ? arthroscopic, R knee ??? Pro lap, surg, colectomy, w/remvl term ileum ?? 10/29/2010 ?LAPAROSCOPIC ASSISTED COLECTOMY, PARTIAL, REM.TERMINAL ILEUM performed by TORITO MOHAN [facility] ??? Pro colonoscopy, biopsy ?? 05/01/2011 ? COLONOSCOPY FLEXIBLE, WITH BX performed by Ramonita MATAMOROS at [facility] ENDOSCOPY ??? Pro colonoscopy, diagnostic ?? 02/25/2013 ? COLONOSCOPY, DIAGNOSTIC performed by Ramonita Matamoros MD at [facility] ?? Allergies: Review of patient's [...] ? Social history: The patient lives in [place], [place], and works in the [employer] industry. Reports that he has never smoked. [...] seton placement Will need to see his water pollution control inspector to discuss possible changes to his medical management for Crohn's in the setting of fistula in ano. ?? Apurva Vivas MD fretted instruments inspector Division of Colon and Rectal Surgery [facility] Pager [phone] documented in this encounter Miscellaneous Notes * Op Note - Apurva Vivas MD - 02/26/2016 8:17 AM EST [facility] Operative Note Patient Name: Igor Woodruff : [id number] MR#: [id number] Case Date: 02/26/2016 Surgeon: Surgeon(s) and Role: [...] surgery clinic after being referred by his water pollution control inspector for 5 - 6 months of soreness [...] Recovery documented in this encounter Care Teams Incubator Operator Relationship Specialty Start Date End Date Irwin Gonsalez DO [address] [place] [address] PCP - General 05/01/11 03/14/24 documented as of this encounter
--- OUTSIDE RECORDS SUMMARY | 2024-04-18 02:42 | XMS_ITS | Encounter Summary ---
Author Organization [place] [address] Care Team Providers Care Dry Mill Worker Name Role Phone Irwin Gonsalez DO Primary Care Provider [phone] Reason for Visit * Reason Comments Medication Refill Encounter Details Date Type Department Care Team (Late st Contact Info) Description 09/24/2015 Refill [place] [address] Ramonita Pandey MD [facility] [place] [address] Social History Tobacco Use Types Packs/Day Years [...] filedocumented in this encounter Care Teams Dry Mill Worker Relationship Specialty Start Date End Date Irwin Gonsalez DO [address] [place], [place] [id number] PCP - General 05/01/11 03/14/24 documented as of this encounter
--- OUTSIDE RECORDS SUMMARY | 2024-04-18 02:42 | XMS_ITS | Encounter Summary ---
[place] [address] Care Team Providers Care Clay Worker Name Role Phone Irwin Gonsalez DO Primary Care Provider Encounter Details Date Type Department Care Team (Late st Contact Info) Description 06/21/2015 Telephone [place] [phone] Jayna Osborne Social History Tobacco Use Types [...] on filedocumented in this encounter Care Teams Clay Worker Relationship Specialty Start Date End Date Iwrin Gonsalez DO [address] [place] [address] PCP - General 05/01/11 03/14/24 documented as of this encounter
--- OUTSIDE RECORDS SUMMARY | 2024-04-18 02:42 | XMS_ITS | Encounter Summary ---
[place] [address] Care Team Providers Care Crushing Foreman Name Role Phone Irwin Gonsalez DO Primary Care Provider [phone] Encounter Details Date Type Department Care Team (Late st Contact Info) Description 06/16/2014 Orders [place] [address] Shannan Barnard RN Crohn's disease, unspecified complication [...] complication documented in this encounter Care Teams Crushing Foreman Relationship Specialty Start Date End Date Irwin Gonsalez DO [address] [place] [address] [address] [place] [address] PCP - General 05/01/11 03/14/24 documented as of this encounter
--- OUTSIDE RECORDS SUMMARY | 2024-04-18 02:42 | XMS_ITS | Encounter Summary ---
Author Organization [facility] [address] Care Team Providers Care Agile Coach Name Role Phone Jesus Gonsalez DO Primary Care Provider Reason for Visit * Reason Comments Establish Care Fistula * Surgical (Routine) - Closed Specialty Diagnoses / Procedures Referred By Haresh powers Referred To Contact General Surgery Diagnoses Crohn's ileitis, with rectal bleeding Ramonita Matamoros MD [facility] [place] [address] [facility] [address] [place] [address] Referral ID Status Reason Start Date Expiration Date V isits Requested Visits Authorized [id number] Closed Consult, Test & Treat 12/17/2015 12/16/2016 3 3 Encounter Details Date Type Department Care Team (Late st Contact Info) Description 12/26/2015 9:00 AM EDT Office Visit [place] [address] Yadira Driver PA [address] [place] [address] [place] [address] Kwoevku-nx-jmt; Perianal abscess, right posterior Social History Tobacco [...] AM EDT Colorectal Surgery Outpatient Consultation Note [place] [address] PCP: JESUS GONSALEZ DO Referring Provider: Ramonita Matamoros [phone] HPI:Igor Sherine Kacy is a very pleasant [...] underwear. He was evaluated recently by his feller hand for Crohn's followup, and he happened to [...] ??? Perianal abscess, right posterior K61.0 ??? Ztcvzqu-cr-gmd K60.3 Past surgical history: Past Surgical History Procedure Laterality Date ??? Appendectomy 1999 ??? Meniscectomy 2002 arthroscopic, R knee ??? Pro lap, surg, colectomy, w/remvl term ileum 10/29/2010 ??LAPAROSCOPIC ASSISTED COLECTOMY, PARTIAL, REM.TERMINAL ILEUM performed by TORITO MOHAN at [facility] MAIN OR ??? Pro colonoscopy, biopsy 05/01/2011 COLONOSCOPY FLEXIBLE, WITH BX performed by Ramonita MATAMOROS at [facility] ENDOSCOPY ??? Pro colonoscopy, diagnostic 02/25/2013 COLONOSCOPY, DIAGNOSTIC performed by Ramonita Matamoros MD at [facility] ENDOSCOPY Allergies: Review of patient's allergies indicates [...] visit. Social history: The patient lives in [place], [place], and works in the [employer] industry. Reports that he has never smoked. [...] c/c/e. The patient was examined in the trgqq-mnpi-[id number] position with Ernst assisting. Gentle eversion of [...] We will have him visit with the lace pinner today to arrange the MRI and follow up with him once the results of that are available. Otherwise, patient will continue to follow up with his gastroenterology team regarding systemic control of his Crohn's disease. Thank you for the consultation. We appreciate the opportunity to take part in Igor Woodruff's care. Yadira Driver PA-C Division of Colon & Rectal Surgery [facility] [phone] CC: JESUS GONSALEZ DO, Ramonita Matamoros MD documented in this encounter Plan of Treatment Not on file documented as of this encounter Visit Diagnoses Diagnosis Xozjkvi-dt-bzp Anal fistula Perianal abscess, right posterior Abscess of anal and rectal regions documented in this encounter Care Teams Agile Coach Relationship Specialty Start Date End Date Jesus Gonsalez DO [address] [place] [address] PCP - General 05/01/11 03/14/24 documented as of this encounter
--- OUTSIDE RECORDS SUMMARY | 2024-04-18 02:42 | XMS_ITS | Encounter Summary ---
[place] [address] Care Team Providers Care Booster Station Operator Name Role Phone Irwin Gonsalez DO Primary Care Provider Encounter Details Date Type Department Care Team (Late st Contact Info) Description 06/21/2015 Orders [place] [address] Sabas Gonzales RN Crohn's disease with other [...] location documented in this encounter Care Teams Booster Station Operator Relationship Specialty Start Date End Date Irwin Gonsalez DO [address] [place] [address] PCP - General 05/01/11 03/14/24 documented as of this encounter
--- OUTSIDE RECORDS SUMMARY | 2024-04-18 02:42 | XMS_ITS | Encounter Summary ---
Author Organization [facility] [place] [address] Care Team Providers Care Paint Specialist Name Role Phone Irwin Gonsalez DO Primary Care Provider Encounter Details Date Type Department Care Team (Late st Contact Info) Description 03/01/2016 Telephone Pediatric [place] [address] Joleen Haq MD [facility] [place] [address] Social History Tobacco Use Types Packs/Day Years [...] on filedocumented in this encounter Care Teams Paint Specialist Relationship Specialty Start Date End Date Irwin Gonsalez DO [address] [place] [address] PCP - General 05/01/11 03/14/24 documented as of this encounter
--- OUTSIDE RECORDS SUMMARY | 2024-04-18 02:42 | XMS_ITS | Encounter Summary ---
Author Organization [facility] [place] [address] Care Team Providers Care Nut And Bolt Assembler Name Role Phone Irwin Gonsalez DO Primary Care Provider [phone] Reason for Visit * Reason Comments Medication Refill Encounter Details Date Type Department Care Team (Late st Contact Info) Description 06/09/2014 Refill [place] [address] Ramonita Pandey MD [facility] [place] [address] Social History Tobacco Use Types Packs/Day Years [...] on filedocumented in this encounter Care Teams Nut And Bolt Assembler Relationship Specialty Start Date End Date Irwin Gonsalez DO [address] [place], [place] [id number] PCP - General 05/01/11 03/14/24 documented as of this encounter
--- OUTSIDE RECORDS SUMMARY | 2024-04-18 02:42 | XMS_ITS | Encounter Summary ---
[place] [address] Care Team Providers Care Purchasing Coordinator Name Role Phone Irwin Gonsalez DO Primary Care Provider [phone] Reason for Referral * Surgical (Routine) - Closed Specialty Diagnoses / Procedures Referred By Haresh powers Referred To Contact General Surgery Diagnoses Crohn's ileitis, with rectal bleeding Ramonita Pandey MD [facility] DR [place] [address] [facility] [address] [place] [address] Referral ID Status Reason Start Date Expiration Date V isits Requested Visits Authorized [id number] Closed Consult, Test & Treat 12/17/2015 12/16/2016 3 3 Reason for Visit * Reason Comments Follow-up Encounter Details Date Type Department Care Team (Late st Contact Info) Description 12/17/2015 10:00 AM EDT Office [place] [address] Ramonita Pandey MD [facility] [place] [address] Crohn's ileitis, with rectal bleeding [...] to prevent recurrent fistulas. Angelo Pandey MD National Investigative Producerprofessional security officer Section of Gastroenterology [place] [address] CC: DO Sunday MERCHANT [address] [place] [address] documented in this encounter Plan of Treatment [...] LABORATORY Neutrophil Absolute 4.04 1.70 - 6.10 x10(3)/[facility] LABORATORY Lymph % 23.4 % [facility] Lymphocytes Abs 1.4 0.9 - 3.2 x10(3)/[facility] LABORATORY Monocyte % 6.0 % [facility] Monocyte Abs 0.4 0.3 - 0.9 x10(3)/[facility] LABORATORY Eos % 0.9 % [facility] Eosinophils Abs 0.0 0.0 - 0.4 x10(3)/[facility] LABORATORY Basophil % 0.2 % [facility] Baso Absolute 0.0 0.0 - 0.1 x10(3)/[facility] LABORATORY Immature Gran % 0.20 % [facility] Comment: Immature granulocytes(IG's)percentage and absolute count will include metamyelocytes, myelocytes, and promyelocytes. Blood smears from CBCs yielding IG's will be scanned manually for concordance. If this scan disagrees with the automated IG or if promyelocytes are noted, a manual differential will be performed. Immature Gran Absolute 0.01 0.00 - 0.04 x10(3)/[facility] LABORATORY Blood specimen (specimen) 12/17/2015 12:14 PM EDT 12/17/2015 12:18 PM EDT Narrative Resulting Agency Comment Spec In Lab L Timothy Pandey MD HEMATOLOGY ORDERABLE S [facility] [place] [address] * Hemogram (12/17/2015 12:14 PM EDT) White Blood Cell 5.8 4.0 - 9.5 x10(3)/[facility] LABORATORY Red Blood Cell 5.12 4.58 - 5.54 x10(6)/[facility] LABORATORY Hemoglobin 15.5 13.7 - 16.5 gm/dL [facility] Hematocrit 44.6 40.5 - 48.5 % [facility] Mean Cell Volume 87.1 82.9 - 93.[address] [facility] Mean Cell Hemoglobin 30.3 27.5 - 32.[address] [facility] Mean Cell Hemoglobin Concentration 34.8 32.0 - 35.7 gm/dL [facility] Platelet 266 145 - 357 x10(3)/[facility] LABORATORY RDW Standard Deviation 41.1 36.0 - 45.0 [facility] LABORATORY RDW coefficient of variation 12.9 11.4 - 13.8 % [facility] Mean Platelet Volume 9.5 7.6 - 12.9 [facility] LABORATORY NRBC% auto 0.0 % [facility] NRBC Absolute 0.000 0.000 - 0.000 x10(3)/[facility] LABORATORY Blood specimen (specimen) 12/17/2015 12:14 PM EDT 12/17/2015 12:18 PM EDT Narrative Resulting Agency Comment Spec In Lab L Timothy Pandey MD HEMATOLOGY ORDERABLE S Performing Organization Address [facility]/ZIP Co de Phone Number [facility] [place] [address] * Hepatitis B Core Antibody, Total (12/17/2015 12:14 PM EDT) Hepatitis B Core Antibody Negative Negative [facility] Blood specimen (specimen) 12/17/2015 12:14 PM EDT 12/17/2015 12:18 PM EDT Narrative Resulting Agency Comment Spec In Lab L Timothy Pandey MD CHEMISTRY ORDERABLES Performing Organization Address [facility] Co de Phone Number [facility] [place] [address] * Hepatitis B Surface Antibody (12/17/2015 12:14 PM EDT) Hepatitis B Surface Antibody, Quantitative 4 IU/L [facility] Hepatitis B Surface Antibody Negative [facility] Comment: Patient is presumed to be not vaccinated or immune to HBV infection. Expected Results: Vaccinated: Positive Unvaccinated: Negative Blood specimen (specimen) 12/17/2015 12:14 PM EDT 12/17/2015 12:18 PM EDT Narrative Resulting Agency Comment Spec In Lab L Timothy Pandey MD CHEMISTRY ORDERABLES Performing Organization Address City/[facility]/ZIP Co de Phone Number [facility] [place] [address] * Hepatitis B Surface Antigen (12/17/2015 12:14 PM EDT) Hepatitis B Surface Antigen Negative Negative [facility] Blood specimen (specimen) 12/17/2015 12:14 PM EDT 12/17/2015 12:18 PM EDT Narrative Resulting Agency Comment Spec In Lab L Timothy Pandey MD CHEMISTRY ORDERABLES Performing Organization Address [facility] de Phone Number [facility] [place] [address] * QuantiFERON-TB Gold (12/17/2015 12:14 PM EDT) Quantiferon-TB Gold Negative Negative [facility] Comment: Nil (IU/mL)= 0.06 TB Ag [...] Pandey MD CHEMISTRY ORDERABLES Performing Organization Address [facility] Co de Phone Number [facility] [place] [address] * Vitamin D, 25-Hydroxy (12/17/2015 12:14 PM EDT) Vitamin D Total 25 OH 51 30 - 100 ng/mL [facility] Comment: Deficient <10 ng/mL Insufficient 10 to 29 ng/mL Sufficient 30 to 100 ng/mL Potential Intoxication >100 ng/mL According to the [place] National Osteoporosis Foundation, Vitamin D concentrations >30 ng/mL are sufficient to protect bone health. ??The National Kidney Foundation has similarly stated that patients with Vitamin D concentrations <30ng/mL should be considered to be insufficient or deficient. http://Occipital.7-bites/[facility] HEALDTONnatlkidneyfoundation http://Tealeaf/DHMCVitD The IDS iSYS Vitamin D Immunoassay detects both 25-OH Vitamin D2 and 25-OH Vitamin D3, but only a total Vitamin D concentration is reported. Blood specimen (specimen) 12/17/2015 12:14 PM EDT 12/17/2015 12:18 PM EDT Narrative Resulting Agency Comment Spec In Lab L Timothy Pandey MD CHEMISTRY ORDERABLES Performing Organization Address [facility] Co de Phone Number [facility] [place] [address] * Hepatic Function Panel (12/17/2015 12:14 PM EDT) Protein, Total 7.3 6.1 - 8.0 gm/dL [facility] Albumin 4.6 3.2 - 5.2 gm/dL [facility] Aspartate Aminotransferase 27 0 - 39 unit/L [facility] Alanine Aminotransferase 40 0 - 55 unit/L [facility] Alkaline Phosphatase 57 40 - 120 unit/L [facility] Bilirubin, Total 1.3 0.2 - 1.3 mg/dL [facility] Bilirubin, Direct 0.2 0.0 - 0.3 mg/dL [facility] Blood specimen (specimen) 12/17/2015 12:14 PM EDT 12/17/2015 12:18 PM EDT Narrative Resulting Agency Comment Spec In Lab L Timothy Pandey MD CHEMISTRY ORDERABLES [facility] [address] * High Sensitivity CRP (12/17/2015 12:14 PM EDT) [facility] C-Reactive Protein High Sensitivity 0.5 mg/L [facility] Comment: Interpretations: 1) For accurate [...] Pandey MD CHEMISTRY ORDERABLES Performing Organization Address City/State/[facility] Co de Phone Number [facility] [place] [address] documented in this encounter Visit Diagnoses Diagnosis Crohn's ileitis, with rectal bleeding- Primary documented in this encounter Care Teams Purchasing Coordinator Relationship Specialty Start Date End Date Irwin Gonsalez DO [address] [place] [address] PCP - General 05/01/11 03/14/24 documented as of this encounter
--- OUTSIDE RECORDS SUMMARY | 2024-04-18 02:42 | XMS_ITS | Encounter Summary ---
Author Organization [facility] Address [facility] [place] [address] Care Team Providers Care Tooth Cutter Contact Wheel Name Role Phone Irwin Gonsalez DO Primary Care Provider Reason for Visit * Reason Onset Date Comments Prior Authorization 05/01/2015 BOTOX P/A Encounter Details Date Type Department Care Team (Late st Contact Info) Description 05/01/2015 Telephone Dermatology at [facility] [address] [place] [address] Bharathi Foote MD [facility] [address] [place] [address] Prior Authorization (BOTOX P/A) Social History Tobacco [...] All Collapse All Prior Authorization Patient: Igor Basurto Mayitorobertjoshua : 1975 Insurance Company: [employer] Medication: Botox for Hyperhidrosis?? Prior Authorization Status: PA APPROVED FOR BOTOX FOR 1 CALENDAR YEAR 05/01/15-04/30/16 documented in this encounter Plan of Treatment Not on file documented as of this encounter Visit Diagnoses Not on filedocumented in this encounter Care Teams Tooth Cutter Contact Wheel Relationship Specialty Start Date End Date Irwin Gonsalez DO [address] [place] [address] [address] [facility] [address] [place] [address] PCP - General 05/01/11 03/14/24 documented as of this encounter
--- OUTSIDE RECORDS SUMMARY | 2024-04-18 02:43 | XMS_ITS | Encounter Summary ---
Author Organization [facility] Address [facility] [place] [address] Care Team Providers Care Wedding Cake Designer Name Role Phone Irwin Gonsalez DO Primary Care Provider [phone] Reason for Visit * Reason Comments Excessive Sweating Encounter Details Date Type Department Care Team (Late st Contact Info) Description 04/20/2012 10:00 AM EST Follow-Up Dermatology at [facility] [address] [place] [address] Bharathi Foote MD [facility] [place] [address] Hyperhydrosis disorder (Primary Dx) Discharge Disposition: Home [...] section) documented in this encounter Care Teams Wedding Cake Designer Relationship Specialty Start Date End Date Irwin Gonsalez DO [address] [place] [address] PCP - General 05/01/11 03/14/24 documented as of this encounter
--- OUTSIDE RECORDS SUMMARY | 2024-04-18 02:43 | XMS_ITS | Encounter Summary ---
Author Organization [facility] Address [facility] [place] [address] Care Team Providers Care Heel Top Lift Splitter Name Role Phone Irwin Gonsalez DO Primary Care Provider Encounter Details Date Type Department Care Team (Late st Contact Info) Description 02/25/2013 9:00 AM EST - 02/25/2013 9:45 AM EST [place] [address] Ramonita Pandey MD [facility] [place] [address] COLONOSCOPY, DIAGNOSTIC (WRVU 3.26) Social History Tobacco [...] concerns, you can call us: Thursday-Thursday Clinic [phone] 8a-5p Same Day Endo [phone] 7a-8p Otherwise contact [phone] and ask to speak to the user experience developer international logistics analyst. Follow up care is a garcia part [...] Pandey MD - 02/25/2013 9:38 AM EST [facility] Operative Note Patient Name: Igor Woodruff : [id number] MR#: [id number] Case Date: 02/25/2013 Surgeon: Surgeon(s) and Role: [...] * COLONOSCOPY (02/25/2013 7:15 AM EST) COLONOSCOPY [facility] Endoscopy Patient Name: Igor Woodruff ? Procedure Date: 02/25/2013 7:15 AM ? Date of : 1975 ? Age: 38 ? Order #: [id number] ? Procedure: ? Colonoscopy Indications: ? Follow-up of Crohn's disease of the ? small bowel Providers: ? Angelo Pandey MD, Lucero Montague, ? RN, Ivon Montenegro, Footwear Machinery Instructor Referring MD: ?Irwin Gonsalez, DO Medicines: ? [...] Thu02/25/13 at 1307, Pain, Intra-Operative (Intra-Procedure), Routine 09 (Given - Provid er: Lucero Montague RN)09 (Given - Provider: Lucero Montague RN)09 (Given - Provider: Lucero Montague RN) midazolam (VERSED) injection (CANCELED) ONCE PRN, Starting on Thu02/25/13 at 0917, Until Thu02/25/13 at 1307, Sleep, Intra-Operative (Intra-Procedure), Routine 09 (Given - Provid er: Lucero Montague RN)0920 (Given - Provider: Lucero Montague RN)0923 (Given - Provider: Lucero Montague RN) documented in this encounter Care Teams Heel Top Lift Splitter Relationship Specialty Start Date End Date Irwin Gonsalez DO [address] [place] [address] 1 [place] [address] PCP - General 05/01/11 03/14/24 documented as of this encounter
--- OUTSIDE RECORDS SUMMARY | 2024-04-18 02:43 | XMS_ITS | Encounter Summary ---
Author Organization [facility] Address [facility] [place] [address] Care Team Providers Care Medical Aides Teacher Name Role Phone Irwin Gonsalez DO Primary Care Provider Encounter Details Date Type Department Care Team (Latest Contact Info) Description 02/25/2013 8:02 AM EST - 02/25/2013 11:05 AM EST Hospital En[place] [address] Ramonita Pandey MD [facility] [place] [address] Discharge Disposition: Home Social History Tobacco Use [...] concerns, you can call us: Thursday-Thursday Clinic [phone] 8a-5p Same Day Endo [phone] 7a-8p Otherwise contact [phone] and ask to speak to the feeder operator automatic conductor and engineer. Follow up care is a garcia part [...] Pandey MD - 02/25/2013 9:38 AM EST [facility] Operative Note Patient Name: Igor Woodruff : [id number] MR#: [id number] Case Date: 02/25/2013 Surgeon: Surgeon(s) and Role: [...] * COLONOSCOPY (02/25/2013 7:15 AM EST) COLONOSCOPY [facility] Endoscopy Patient Name: Igor Woodruff ? Procedure Date: 02/25/2013 7:15 AM ? Date of : 1975 ? Age: 38 ? Order #: [id number] ? Procedure: ? Colonoscopy Indications: ? Follow-up of Crohn's disease of the ? small bowel Providers: ? Angelo Pandey MD, Lucero Montague, ? RN, Ivno Montenegro, Talent Rep Referring MD: ?Irwin Gonsalez, DO Medicines: ? [...] 916 (Given - Provid er: Lucero Montague RN)09 (Given - Provider: Lucero Montague RN)09 (Given - Provider: Lucero Montague RN) documented in this encounter Care Teams Medical Aides Teacher Relationship Specialty Start Date End Date Irwin Gonsalez DO [address] [place] [address] PCP - General 05/01/11 03/14/24 documented as of this encounter
--- OUTSIDE RECORDS SUMMARY | 2024-04-18 02:43 | XMS_ITS | Encounter Summary ---
Author Organization [facility] Address [facility] [place] [address] Care Team Providers Care Laboratory Asst Name Role Phone Irwin Gonsalez DO Primary Care Provider Reason for Visit * Reason Comments Excessive Sweating Encounter Details Date Type Department Care Team (Late st Contact Info) Description 12/19/2013 1:30 PM EDT Follow-Up Dermatology at [facility] [address] [place] [address] Bharathi Foote MD [facility] [address] [place] [address] Hyperhidrosis of axilla (Primary Dx); Verruca vulgaris [...] 100 Units, Intramuscular, ONCE, 1 dose, On Thu12/19/13 at 1400, Routine Given 12/19/2013 1:42 PM EDT 100 Units 20-Other (document in comment section) documented in this encounter Care Teams Laboratory Asst Relationship Specialty Start Date End Date Irwin Gonsalez DO [address] [place] [address] PCP - General 05/01/11 03/14/24 documented as of this encounter
--- OUTSIDE RECORDS SUMMARY | 2024-04-18 02:43 | XMS_ITS | Encounter Summary ---
[place] [address] Care Team Providers Care Butter Maker Name Role Phone Irwin Gonsalez DO Primary Care Provider [phone] Encounter Details Date Type Department Care Team (Late st Contact Info) Description 06/01/2012 External Results [place] [address] Ramonita Pandey MD [facility] [place] [address] Social History Tobacco Use Types Packs/Day Years [...] Results * Scan Doc: Lab (05/30/2012) 05/30/2012 Ramonita Pandey MD MEDIA MGR SCAN EXT O RDR/RSLT documented in this encounter Visit Diagnoses Not on filedocumented in this encounter Care Teams Butter Maker Relationship Specialty Start Date End Date Irwin Gonsalez DO [address] [facility] [place] [address] PCP - General 05/01/11 03/14/24 documented as of this encounter
--- OUTSIDE RECORDS SUMMARY | 2024-04-18 02:43 | XMS_ITS | Encounter Summary ---
[place] [address] Care Team Providers Care Envelope Folding Machine Operator Name Role Phone Irwin Gonsalez DO Primary Care Provider Reason for Visit * Reason Onset Date Comments Other 09/22/2011 Encounter Details Date Type Department Care Team (Late st Contact Info) Description 09/22/2011 Telephone [place] [address] Agueda Trujillo, RN Other Social [...] to have labs done this weekend in [facility]. Advised to continue to hold [...] weeks, and then have labs rechecked. Thanks, Timothy Called patient. No answer at home or on mobile. Left a message on his home number asking him to call to discuss labs and medications. Will await call back. documented in this encounter Plan of Treatment Not on file documented as of this encounter Visit Diagnoses Not on filedocumented in this encounter Care Teams Envelope Folding Machine Operator Relationship Specialty Start Date End Date Irwin Gonsalez DO [address] [place] [address] [place] [address] PCP - General 05/01/11 03/14/24 documented as of this encounter
--- OUTSIDE RECORDS SUMMARY | 2024-04-18 02:43 | XMS_ITS | Encounter Summary ---
[place] [address] Care Team Providers Care Supervisor Coffee Name Role Phone Irwin Gonsalez DO Primary Care Provider [phone] Encounter Details Date Type Department Care Team (Late st Contact Info) Description 02/24/2012 External [place] [address] Ramonita Pandey MD [facility] DR [place] [address] Social History Tobacco Use Types Packs/Day Years [...] Results * Scan Doc: Lab (02/15/2012) 02/15/2012 Ramonita Pandey MD MEDIA MGR SCAN EXT O RDR/RSLT documented in this encounter Visit Diagnoses Not on filedocumented in this encounter Care Teams Supervisor Coffee Relationship Specialty Start Date End Date Irwin Gonsalez DO [address] [facility] [address] [facility] 1 [place] [address] PCP - General 05/01/11 03/14/24 documented as of this encounter
--- OUTSIDE RECORDS SUMMARY | 2024-04-18 02:43 | XMS_ITS | Encounter Summary ---
[place] [address] Care Team Providers Care Trade Show Specialist Name Role Phone Irwin Gonsalez DO Primary Care Provider [phone] Encounter Details Date Type Department Care Team (Late st Contact Info) Description 10/28/2011 External Results [place] [address] Ramonita Pandey MD [facility] [place] [address] Social History Tobacco Use Types Packs/Day Years [...] Results * Scan Doc: Lab (10/05/2011) 10/05/2011 Ramonita Pandey MD MEDIA MGR SCAN EXT O RDR/RSLT documented in this encounter Visit Diagnoses Not on filedocumented in this encounter Care Teams Trade Show Specialist Relationship Specialty Start Date End Date Irwin Gonsalez DO [address] [facility] 1 [place] [address] PCP - General 05/01/11 03/14/24 documented as of this encounter
--- OUTSIDE RECORDS SUMMARY | 2024-04-18 02:43 | XMS_ITS | Encounter Summary ---
[place] [address] Care Team Providers Care Black And White Printer Operator Name Role Phone Irwin Gonsalez DO Primary Care Provider Reason for Visit * Reason Onset Date Comments Other 11/20/2011 Encounter Details Date Type Department Care Team (Late st Contact Info) Description 11/20/2011 Telephone [place] [address] Maria Chandler RN Other Social [...] PM EDT I received a call from [facility] about his prescription for questran and if [...] on filedocumented in this encounter Care Teams Black And White Printer Operator Relationship Specialty Start Date End Date Irwin Gonsalez DO [address] [place] [address] [place] [address] PCP - General 05/01/11 03/14/24 documented as of this encounter
--- OUTSIDE RECORDS SUMMARY | 2024-04-18 02:43 | XMS_ITS | Encounter Summary ---
[place] [address] Care Team Providers Care Taxicab Starter Name Role Phone Irwin Gonsalez DO Primary Care Provider [phone] Encounter Details Date Type Department Care Team (Late st Contact Info) Description 11/16/2012 Telephone [place] [address] Agueda Trujillo, RN Social History Tobacco Use [...] in 2-3 weeks. Has labs drawn at [facility] in [facility], will send lab requisition. * Telephone Encounter [...] on filedocumented in this encounter Care Teams Taxicab Starter Relationship Specialty Start Date End Date Irwin Gonsalez DO [address] [place] [address] [place] [address] PCP - General 05/01/11 03/14/24 documented as of this encounter
--- OUTSIDE RECORDS SUMMARY | 2024-04-18 02:43 | XMS_ITS | Encounter Summary ---
[place] [address] Care Team Providers Care Tower Truck Driver Name Role Phone Irwin Gonsalez DO Primary Care Provider Reason for Visit * Reason Onset Date Comments Other 10/28/2011 Encounter Details Date Type Department Care Team (Late st Contact Info) Description 10/28/2011 Telephone [place] [address] Agueda Trujillo, RN Other Social [...] - 10/28/2011 4:29 PM EDT Labs from [facility] 10/05/11 show WBC of 4.03, LFT's wnl. [...] and then have labs rechecked. Thanks, Timothy Call Igor back and reviewed lab results. He will restart the azathioprine at 100 mg a day (2-50 mg tabs) and have labs done in 2 weeks (around 11/11/11) He agrees with this plan. * Telephone Encounter - Agueda Trujillo RN - 10/28/2011 3:42 PM EDT Patient calling to review labs from 10/04 done at [facility]. They are not scanned or in our lab folder. Advised him that I would call the lab to get a copy of the results and call him back. Called [facility]. Lab results being faxed documented in this encounter Plan of Treatment Not on file documented as of this encounter Visit Diagnoses Not on filedocumented in this encounter Care Teams Tower Truck Driver Relationship Specialty Start Date End Date Irwin Gonsalez DO [address] [place] [address] [place] [address] PCP - General 05/01/11 03/14/24 documented as of this encounter
--- OUTSIDE RECORDS SUMMARY | 2024-04-18 02:43 | XMS_ITS | Encounter Summary ---
[place] [address] Care Team Providers Care Quality Liaison Name Role Phone Irwin Gonsalez DO Primary Care Provider Reason for Visit * Reason Comments Medication Refill Encounter Details Date Type Department Care Team (Late st Contact Info) Description 11/18/2011 Refill [place] [phone] Warren Bender MD Social History Tobacco Use [...] on filedocumented in this encounter Care Teams Quality Liaison Relationship Specialty Start Date End Date Irwin Gonsalez DO [address] [place] [address] [place] [address] PCP - General 05/01/11 03/14/24 documented as of this encounter
--- OUTSIDE RECORDS SUMMARY | 2024-04-18 02:43 | XMS_ITS | Encounter Summary ---
Author Organization [facility] Address [facility] [place] [address] Care Team Providers Care Molder Vacuum Name Role Phone Irwin Gonsalez DO Primary Care Provider Reason for Visit * Reason Onset Date Comments Other 12/14/2013 Prior Authorizat ion Encounter Details Date Type Department Care Team (Late st Contact Info) Description 12/14/2013 Telephone Dermatology at [facility] [address] [place] [phone] Bharathi Foote MD [facility] [place] [address] Other (Prior Authorization) Social History Tobacco Use [...] Patient: Igor Monzonjoshua : 1975 Insurance Company: [address] [place] [address] NON REFERRAL Medication: BOTOX- [id number] Prior Authorization Status: PA IS NOT NEEDED WITH PATIETNS PLAN. documented in this encounter Plan of Treatment Not on file documented as of this encounter Visit Diagnoses Not on filedocumented in this encounter Care Teams Molder Vacuum Relationship Specialty Start Date End Date Irwin Gonsalez DO [address] [place] [address] [place] [address] PCP - General 05/01/11 03/14/24 documented as of this encounter
--- OUTSIDE RECORDS SUMMARY | 2024-04-18 02:43 | XMS_ITS | Encounter Summary ---
Author Organization [facility] [place] [address] Care Team Providers Care Safety Admin Assistant Name Role Phone Irwin Gonsalez DO Primary Care Provider Encounter Details Date Type Department Care Team (Late st Contact Info) Description 07/11/2013 Orders [place] [address] Ramonita Pandey MD [facility] [place] [address] Crohn's disease, without complications; Abnormal LFTs Social [...] chemistry documented in this encounter Care Teams Safety Admin Assistant Relationship Specialty Start Date End Date Irwin Gonsalez DO [address] [place] [address] [place] [address] PCP - General 2/16/12 12/30/24 documented as of this encounter
--- OUTSIDE RECORDS SUMMARY | 2024-04-18 02:43 | XMS_ITS | Encounter Summary ---
Author Organization [facility] Address [place] [address] Care Team Providers Care Insulation Engineman Name Role Phone Jesus Gonsalez DO Primary Care Provider Reason for Referral * Consultation (Routine) - Closed Specialty Diagnoses / Procedures Referred By Conthemanth t Referred To Contact Dermatology Diagnoses Rash Ramonita Pandey MD [facility] [place] [address] Bharathi Foote MD [facility] [address] [place] [address] Referral ID Status Reason Start Date Expiration Date V isits Requested Visits Authorized [id number] Closed Consult, Test & Treat 11/08/2012 05/07/2013 1 1 Reason for Visit * Reason Comments Follow-up Encounter Details Date Type Department Care Team (Late st Contact Info) Description 11/08/2012 2:30 PM EDT Follow-[place] [address] Ramonita Pandey MD [facility] [place] [address] Crohn's ileitis (Primary Dx); Rash [...] the preparation at this time. Please call [phone] to let us know that you cannot [...] time. ?? Please plan to be at [facility] for about 3 hours; please see your letter for estimated procedure and discharge times. If you have read the information thoroughly, and still have questions about what you have read, please call [phone] between the hours of 7:00am - 7:00pm, Thursday - Thursday and a nurse will assist you. If you have an urgent matter after hours, please call [phone], and ask to speak to the Gastroenterology Fellow microsoft dynamics ax consultant. If you need to reschedule your colonoscopy, please call [phone]. We do have a high volume of [...] information packet from Gastroenterology and Hepatology and [facility]: ?? Please read ALL information in your information packet. ?? If you have read the information thoroughly, and still have questions about what you have read, please call [phone] between the hours of 7:00am - 7:00pm Thursday - Thursday, and a nurse will assist you. ?? If you have an urgent matter after hours, please call [phone], and ask to speak to the Gastroenterology Fellow microsoft dynamics ax consultant. ?? If you need to reschedule your colonoscopy, please call [phone]. We do have a high volume of patients for this exam, so please give a least 72 hours notice for routine rescheduling. MEDICATION INFORMATION ?? Please call your prescribing physician to see if it is safe for you to lessen the dose or stop your medication prior to this procedure. Please note: If you cannot safely stop these medications, please call [phone]. The prescribing physician can give you instructions [...] you arrive (2 hours before your procedure) [email or web address] [place] () ?? You will need to arrive ONE HOUR before your procedure time, to help you prepare for your procedure; please see your letter for exact arrival time. ?? Please plan to be at [facility] for about 3 hours; please see [...] forms of transportation like cabs or buses. [email or web address] 1 FREQUENTLY ASKED QUESTIONS ABOUT YOUR COLONOSCOPY [...] one do I follow? A: Please follow [facility] Gastroenterology instructions, NOT the instructions from the [...] you continue to have problems, please call [phone] during office hours at 7am - 5pm.After hours please call [phone], and ask for the Gastroenterology Fellow microsoft dynamics ax consultant. Q: Do I REALLY need to drink [...] have a deep chest cough, please call [phone] to see if you need to reschedule your appointment. Q: I am having my menstrual period. Should I reschedule my colonoscopy appointment? A: No. Your menstrual period will not interfere with your physician's ability to complete your procedure. [facility] FAQ 11/02/2008 Igor Woodruff [facility] [address] Thank you for choosing [facility] for your medical needs. You are scheduledfor a colonoscopy on at the Endoscopy Center at Senior Product [facility] 4T (Level 4). Below you will find [...] about what you have read, please call [phone] between the hours of 7:00am - 7:00pm Thursday - Thursday, and ask to speak to the Gastroenterology Fellow microsoft dynamics ax consultant. If you need to reschedule your procedure please call: [phone]. Thank you for choosing [facility]. Sincerely, The Gastroenterology and Hepatology Team and the Endoscopy Center at [facility] documented in this encounter Progress Notes [...] or sooner as needed. Angelo Pandey MD Accounting Coordinatorresidential leasing agent Section of Gastroenterology [place] [address] CC: JESUS GONSALEZ DO [address] [place] [id number] documented in this encounter Plan of Treatment [...] HEMATOLOGY ORDERABLE S Performing Organization Address [facility] Co de Phone Number JESENIA LUAIUM * Thiopurine Metabolites (11/08/2012 3:25 PM EDT) Thiopurine Metabolites ([facility]) See Note CERNER MILLENNIUM Comment:Please see scanned r eport in Chart Review under the Non-DH Laboratory Heading. Blood specimen (specimen) 11/08/2012 3:25 PM EDT 11/08/2012 3:41 PM EDT Narrative Resulting Agency Comment Spec In Lab L Timothy Pandey MD LAB SEND OUT ORDERAB LES Performing Organization Address [facility] Phone Number JESENIA LUAIUM * Hepatic Function Panel (11/08/2012 3:25 PM [...] MD CHEMISTRY ORDERABLES Performing Organization Address [facility] de Phone Number JESENIA LUAIUM * High Sensitivity CRP (11/08/2012 3:25 PM EDT) C-Reactive Protein High Sensitivity 0.5 mg/L [facility] Comment: Interpretations: 1) For accurate cardiac [...] Lab L Timothy Pandey MD CHEMISTRY ORDERABLES [facility] * CBC (with Diff) (11/08/2012 3:25 PM [...] of variation 12.4 10.9 - 14.4 % JESENIA LUAIUM Mean Platelet Volume 10.1 9.0 - 12.0 fL JESENIA GOLDBERG Blood specimen (specimen) 11/08/2012 3:25 PM EDT 11/08/2012 3:30 PM EDT Narrative Resulting Agency Comment Spec In Lab L Timothy Pandey MD HEMATOLOGY ORDERABLE S Performing Organization Address City/State/[facility] Co de Phone Number JESENIA GOLDBERG documented in this encounter Visit Diagnoses Diagnosis Crohn's ileitis- Primary Regional enteritis of small intestine Rash Rash and other nonspecific skin eruption documented in this encounter Care Teams Insulation Engineman Relationship Specialty Start Date End Date Jesus Gonsalez DO [address] [place] [address] [place] [address] PCP - General 05/01/11 03/14/24 documented as of this encounter
--- OUTSIDE RECORDS SUMMARY | 2024-04-18 02:43 | XMS_ITS | Encounter Summary ---
[place] [address] Care Team Providers Care Manager Casino Name Role Phone Irwin Gonsalez DO Primary Care Provider Encounter Details Date Type Department Care Team (Late st Contact Info) Description 09/01/2012 External Results [place] [address] Ramonita Pandey MD [facility] DR GASTROENTEROLOGY [address] Social History Tobacco Use Types Packs/Day Years [...] Results * Scan Doc: Lab (08/29/2012) 08/29/2012 Ramonita Pandey MD MEDIA MGR SCAN EXT O RDR/RSLT documented in this encounter Visit Diagnoses Not on filedocumented in this encounter Care Teams Manager Casino Relationship Specialty Start Date End Date Irwin Gonsalez DO [address] [facility] 1 [place] [address] PCP - General 05/01/11 03/14/24 documented as of this encounter
--- OUTSIDE RECORDS SUMMARY | 2024-04-18 02:43 | XMS_ITS | Encounter Summary ---
[place] [address] Care Team Providers Care Strap Buckler Name Role Phone Irwin Gonsalez DO Primary Care Provider Encounter Details Date Type Department Care Team (Late st Contact Info) Description 04/09/2012 External [place] [address] Ramonita Pandey MD [facility] [place] [address] Social History Tobacco Use Types Packs/Day Years [...] on filedocumented in this encounter Care Teams Strap Buckler Relationship Specialty Start Date End Date Irwin Gonsalez DO [address] [facility] [place] [address] PCP - General 05/01/11 03/14/24 documented as of this encounter
--- OUTSIDE RECORDS SUMMARY | 2024-04-18 02:43 | XMS_ITS | Encounter Summary ---
[place] [address] Care Team Providers Care Community Arts Officer Name Role Phone Irwin Gonsalez DO Primary Care Provider Reason for Visit * Reason Onset Date Comments Other 11/25/2011 lab reminder Encounter Details Date Type Department Care Team (Late st Contact Info) Description 11/25/2011 Telephone [place] [address] Agueda Trujillo RN Other (lab [...] 2 weeks. No labs since September per [facility] lab. Called to speak with patient, he is not available. Spoke withhis and asked her to remind him to have labs done. documented in this encounter Plan of Treatment Not on file documented as of this encounter Visit Diagnoses Not on filedocumented in this encounter Care Teams Community Arts Officer Relationship Specialty Start Date End Date Irwin Gonsalez DO [address] [place] [address] [place] [address] PCP - General 05/01/11 03/14/24 documented as of this encounter
--- OUTSIDE RECORDS SUMMARY | 2024-04-18 02:43 | XMS_ITS | Encounter Summary ---
[place] [address] Care Team Providers Care Mica Plate Layer Hand Name Role Phone Irwin Gonsalez DO Primary Care Provider Encounter Details Date Type Department Care Team (Late st Contact Info) Description 11/16/2012 Orders [place] [address] Shannan Barnard, RN Crohn's ileitis (Primary Dx) [...] intestine documented in this encounter Care Teams Mica Plate Layer Hand Relationship Specialty Start Date End Date Irwin Gonsalez DO [address] [place] [address] [address] [place] [address] [place] [address] PCP - General 05/01/11 03/14/24 documented as of this encounter
--- OUTSIDE RECORDS SUMMARY | 2024-04-18 02:43 | XMS_ITS | Encounter Summary ---
[place] [address] Care Team Providers Care Cement Cutter Name Role Phone Irwin Gonsalez DO Primary Care Provider Encounter Details Date Type Department Care Team (Late st Contact Info) Description 06/21/2012 Telephone [place] [address] Agueda Trujillo, RN Social History Tobacco Use [...] on filedocumented in this encounter Care Teams Cement Cutter Relationship Specialty Start Date End Date Irwin Gonsalez DO [address] [place] [address] [place] [address] PCP - General 05/01/11 03/14/24 documented as of this encounter
--- OUTSIDE RECORDS SUMMARY | 2024-04-18 02:43 | XMS_ITS | Encounter Summary ---
[place] [address] Care Team Providers Care Puppy Trainer Name Role Phone Irwin Gonsalez DO Primary Care Provider [phone] Encounter Details Date Type Department Care Team (Late st Contact Info) Description 11/14/2011 Telephone [place] [address] Swetha Berry RN Social History Tobacco Use [...] levels checked. Will review with Dr Pandey. [facility] is the lab he would like to use 11/19/[address] Pandey: Labs to be drawn and followed through PCP documented in this encounter Plan of Treatment Not on file documented as of this encounter Visit Diagnoses Not on filedocumented in this encounter Care Teams Puppy Trainer Relationship Specialty Start Date End Date Irwin Gonsalez DO [address] [place] [address] [place] [address] PCP - General 05/01/11 03/14/24 documented as of this encounter
--- OUTSIDE RECORDS SUMMARY | 2024-04-18 02:43 | XMS_ITS | Encounter Summary ---
[place] [address] Care Team Providers Care Sand Sifter Name Role Phone Irwin Gonsalez DO Primary Care Provider Encounter Details Date Type Department Care Team (Late st Contact Info) Description 12/01/2012 External Results [place] [address] Provider, Scanning Social History Tobacco Use Types [...] on filedocumented in this encounter Care Teams Sand Sifter Relationship Specialty Start Date End Date Irwin Gonsalez DO [address] [place] [address] [place] [address] PCP - General 05/01/11 03/14/24 documented as of this encounter
--- OUTSIDE RECORDS SUMMARY | 2024-04-18 02:43 | XMS_ITS | Encounter Summary ---
Author Organization [facility] Address [facility] [place] [address] Care Team Providers Care Machine Installer Name Role Phone Irwin Gonsalez DO Primary Care Provider Reason for Visit * Reason Comments Skin Check Encounter Details Date Type Department Care Team (Late st Contact Info) Description 02/24/2013 10:00 AM EST Follow-Up Dermatology at [facility] [address] [place] [phone] Diony Estrada MD [facility] [address] [place] [address] Atypical nevus (Primary Dx); Axillary hyperhidrosis Discharge [...] of this encounter Progress Notes * Diony Estrada MD - 02/24/2013 10:21 AM EST Images from the original note were not included. Laly Toure 1975 38 y.o. Chief Complaint: 1. Limited Spot Examination 2. Forearm lesions, ? Skin cancer HISTORY/Objective: aLly Toure is a 38 y.o. year old [...] was injected into this grid by MS Estrada. approximately 2.5 units at eachpoint on the [...] of the documentation in this encounter, Ria Estrada MD documented in this encounter Plan of [...] EST 02/24/2013 10:42 AM EST Narrative JESENIA LUAIUM - 02/24/2013 10:42 AM EST Specimen requisition ordered. ??Separate Pathology report to follow Diony Estrada MD PATHOLOGY/CYTOL OGY ORDERABLES [facility] * Surgical Pathology Report (02/24/2013 10:41 AM EST) Surgical Pathology Report ? [facility] ? Provider: ?? DIONY ESTRADA ?Pt. Name: ?? LALY TOURE ?JADYN ? Acc #: ?[id number] ? Pt. ? Col Date: ?? 02/24/2013 [...] biopsy only (1) ? Clinical History: ? [facility] ? Provider: ?? DIONY ESTRADA ?Pt. Name: ?? LALY TOURE ?JADYN ? Acc #: ?[id number] ? Pt. ? Col Date: ?? 02/24/2013 ?/Sex: ?1975,(38 years),Male ? Rec Date: ?? 02/24/2013 ?LOC: ?HDM ? 8 mm dark brown macule ? SURGICAL PATHOLOGY ? Clinical Diagnosis: ? Atypical nevus JESENIA GOLDBERG 02/24/2013 10:4 1 AM EST Diony Estrada MD PATHOLOGY/CYTOL OGY ORDERABLES JESENIA GOLDBERG documented in this encounter [...] section) documented in this encounter Care Teams Machine Installer Relationship Specialty Start Date End Date Irwin Gonsalez DO [address] [place] [address] PCP - General 05/01/11 03/14/24 documented as of this encounter
--- OUTSIDE RECORDS SUMMARY | 2024-04-18 02:43 | XMS_ITS | Encounter Summary ---
Author Organization [facility] [place] [address] Care Team Providers Care Natural Gas Inspector Name Role Phone Irwin Gonsalez DO Primary Care Provider [phone] Reason for Visit * Reason Comments Medication Refill Encounter Details Date Type Department Care Team (Late st Contact Info) Description 08/31/2013 Refill [place] [address] Ramonita Pandey MD [facility] [place] [address] Social History Tobacco Use Types Packs/Day Years [...] on filedocumented in this encounter Care Teams Natural Gas Inspector Relationship Specialty Start Date End Date Irwin Gonsalez DO [address] [place], [place] [id number] PCP - General 05/01/11 03/14/24 documented as of this encounter
--- OUTSIDE RECORDS SUMMARY | 2024-04-18 02:43 | XMS_ITS | Encounter Summary ---
[place] [address] Care Team Providers Care Navy Material Inspector Name Role Phone Irwin Gonsalez DO Primary Care Provider Reason for Visit * Reason Onset Date Comments Medication Refill 12/01/2011 Encounter Details Date Type Department Care Team (Late st Contact Info) Description 12/01/2011 Ref[place] [address] Ramonita Pandey MD [facility] [place] [address] IBD (inflammatory bowel disease) Social History Tobacco [...] colitis documented in this encounter Care Teams Navy Material Inspector Relationship Specialty Start Date End Date Irwin Gonsalez DO [address] [place] [address] PCP - General 05/01/11 03/14/24 documented as of this encounter
--- OUTSIDE RECORDS SUMMARY | 2024-04-18 02:43 | XMS_ITS | Encounter Summary ---
[place] [address] Care Team Providers Care Edger Machine Helper Name Role Phone Irwin Gonsalez DO Primary Care Provider Encounter Details Date Type Department Care Team (Late st Contact Info) Description 05/13/2012 Telephone [place] [phone] Swetha Berry RN Social History Tobacco Use [...] on filedocumented in this encounter Care Teams Edger Machine Helper Relationship Specialty Start Date End Date Irwin Gonsalez DO [address] [place] [address] PCP - General 05/01/11 03/14/24 documented as of this encounter
--- OUTSIDE RECORDS SUMMARY | 2024-04-18 02:43 | XMS_ITS | Encounter Summary ---
[place] [address] Care Team Providers Care Cement Truck Loader Name Role Phone Irwin Gonsalez DO Primary Care Provider [phone] Encounter Details Date Type Department Care Team (Late st Contact Info) Description 12/02/2011 External Results [place] [address] Ramonita Pandey MD [facility] [place] [address] Social History Tobacco Use Types Packs/Day Years [...] Results * Scan Doc: Lab (11/30/2011) 11/30/2011 Ramonita Pandey MD MEDIA MGR SCAN EXT O RDR/RSLT documented in this encounter Visit Diagnoses Not on filedocumented in this encounter Care Teams Cement Truck Loader Relationship Specialty Start Date End Date Irwin Gonsalez DO [address] [facility] [place] [address] PCP - General 05/01/11 03/14/24 documented as of this encounter
--- OUTSIDE RECORDS SUMMARY | 2024-04-18 02:43 | XMS_ITS | Encounter Summary ---
Author Organization [facility] [place] [address] Care Team Providers Care Surveyor Instrument Assistant Name Role Phone Irwin Gonsalez DO Primary Care Provider Reason for Visit * Reason Comments Medication Refill Encounter Details Date Type Department Care Team (Late st Contact Info) Description 10/18/2012 [place] [address] Ramonita Pandey MD [facility] [place] [address] Social History Tobacco Use Types Packs/Day Years [...] on filedocumented in this encounter Care Teams Surveyor Instrument Assistant Relationship Specialty Start Date End Date Irwin Gonsalez DO [address] [place], [place] [phone] PCP - General 05/01/11 03/14/24 documented as of this encounter
--- OUTSIDE RECORDS SUMMARY | 2024-04-18 02:44 | XMS_ITS | Encounter Summary ---
Author Organization [facility] Address [facility] [place] [address] Care Team Providers Care Statistical Secretary Name Role Phone None Primary Care Provider Unavailabl e Encounter Details Date Type Department Care Team (Late st Contact Info) Description 04/28/2011 Orders [place] [address] Ramonita Pandey MD [facility] [place] [address] IBD (inflammatory bowel disease) (Primary Dx) Social [...] EST L Timothy Pandey MD CHEMISTRY ORDERABLES Performing Organization Address City/[facility] Co de Phone Number CERMARVIN FRAGAENNIUM * (ABNORMAL) CBC (with Diff) (05/01/2011 9:44 [...] 9:44 AM EST 05/01/2011 9:48 AM EST Ramonita Pandey MD HEMATOLOGY ORDERABLE S Performing Organization Address City/[facility]/ZIP Co de Phone Number JESENIA LUAIUM documented in this encounter Visit Diagnoses Diagnosis IBD (inflammatory bowel disease)- Primary Other and unspecified noninfectious gastroenteritis and colitis documented in this encounter Care Teams Statistical Secretary Relationship Specialty Start Date End Date None None PCP - General 04/23/11 04/30/11 documented as of this encounter
--- OUTSIDE RECORDS SUMMARY | 2024-04-18 02:44 | XMS_ITS | Encounter Summary ---
Author Organization [facility] [place] [address] Care Team Providers Care Installer Technician Name Role Phone Ebenezer Way MD Primary Care Provider [phone] Reason for Visit * Reason Comments Follow-up Colectomy Encounter Details Date Type Department Care Team (Late st Contact Info) Description 12/18/2010 8:30 AM EDT Office [place] [phone] Warren Bender MD Regional enteritis of small [...] Primary documented in this encounter Care Teams Installer Technician Relationship Specialty Start Date End Date Ebenezer Way MD [address] [place] [address] PCP - General 02/05/10 04/22/11 documented as of this encounter
--- OUTSIDE RECORDS SUMMARY | 2024-04-18 02:44 | XMS_ITS | Encounter Summary ---
[place] [address] Care Team Providers Care Ophthalmic Medical Technician Name Role Phone Ebenezer Way MD Primary Care Provider Reason for Visit * Reason Onset Date Comments Medication Refill 12/25/2010 Encounter Details Date Type Department Care Team (Late st Contact Info) Description 12/25/2010 Refill [place] [address] Ramonita Pnadey MD [facility] [place] [address] Social History Tobacco Use Types Packs/Day Years [...] on filedocumented in this encounter Care Teams Ophthalmic Medical Technician Relationship Specialty Start Date End Date Ebenezer Way MD [address] [place], [place] [phone] PCP - General 02/05/10 04/22/11 documented as of this encounter
--- OUTSIDE RECORDS SUMMARY | 2024-04-18 02:44 | XMS_ITS | Encounter Summary ---
[place] [address] Care Team Providers Care Insole Coverer Name Role Phone Irwin Gonsalez DO Primary Care Provider Encounter Details Date Type Department Care Team (Late st Contact Info) Description 08/15/2011 External [place] [address] Ramonita Pandey MD [facility] DR [place] [address] Social History Tobacco Use Types Packs/Day Years [...] Results * Scan Doc: Lab (07/06/2011) 07/06/2011 Ramonita Pandey MD MEDIA MGR SCAN EXT O RDR/RSLT documented in this encounter Visit Diagnoses Not on filedocumented in this encounter Care Teams Insole Coverer Relationship Specialty Start Date End Date Irwin Gonsalez DO [address] [facility] [place] [address] PCP - General 05/01/11 03/14/24 documented as of this encounter
--- OUTSIDE RECORDS SUMMARY | 2024-04-18 02:44 | XMS_ITS | Encounter Summary ---
Author Organization [facility] Address [facility] [place] [address] Care Team Providers Care Local Superintendent Name Role Phone Irwin Gonsalez DO Primary Care Provider [phone] Encounter Details Date Type Department Care Team (Latest Contact Info) Description 05/01/2011 9:32 AM EST - 05/01/2011 11:59 PM [facility] Hospital [place] [phone] Ramonita Pandey MD [facility] [place] [address] IBD (inflammatory bowel disease) Discharge Disposition: Home [...] MD HEMATOLOGY ORDERABLE S Performing Organization Address [facility] Phone Number CERNER MILLENNIUM * (ABNORMAL) Hepatic Function Panel (05/01/2011 9:44 [...] Pandey MD CHEMISTRY ORDERABLES Performing Organization Address [facility] de Phone Number CERNER MILLENNIUM * (ABNORMAL) [...] colitis documented in this encounter Care Teams Local Superintendent Relationship Specialty Start Date End Date Irwin Gonsalez DO [address] [place] [address] PCP - General 05/01/11 03/14/24 documented as of this encounter
--- OUTSIDE RECORDS SUMMARY | 2024-04-18 02:44 | XMS_ITS | Encounter Summary ---
[place] [address] Care Team Providers Care Wort Extractor Name Role Phone Irwin Gonsalez DO Primary Care Provider Encounter Details Date Type Department Care Team (Late st Contact Info) Description 06/19/2011 Telephone [place] [phone] Swetha Berry, RN Social History Tobacco Use [...] PO qd due to low WBC. Labschecked 3 showed normalization of the WBC. If he [...] on filedocumented in this encounter Care Teams Wort Extractor Relationship Specialty Start Date End Date Irwin Gonsalez DO [address] [place] [address] [address] [facility] [place] [address] PCP - General 05/01/11 03/14/24 documented as of this encounter
--- OUTSIDE RECORDS SUMMARY | 2024-04-18 02:44 | XMS_ITS | Encounter Summary ---
Author Organization [facility] Address [facility] [place] [address] Care Team Providers Care Health Teacher Name Role Phone Irwin Gonsalez DO Primary Care Provider [phone] Encounter Details Date Type Department Care Team (Late st Contact Info) Description 05/01/2011 11:15 AM EST - 05/01/2011 12:00 PM EST [place] [address] Ramonita Matamoros MD [facility] [place] [address] COLONOSCOPY FLEXIBLE, WITH BX (WRVU 3.56) Social [...] occurs please contact your M.D. Please call [phone] before 5pm with problems, questions or concerns. After 5pm call [phone] and ask to speak with the drop press hand compliance professional. Discharge instructions reviewed with patient who expresses's understanding. * Attachments The following attachments cannot be sent through Care Everywhere. * COLONOSCOPY: WHAT TO EXPECT AT HOME (SCOTTISH) * SEDATION FOR A MEDICAL PROCEDURE: AFTER YOUR VISIT (SCOTTISH) documented in this encounter Medications at Time [...] 2:18 PM EST) Surgical Pathology Report ? [facility] ? Provider: ?? Ramonita MATAMOROS ?Pt. Name: ?? RYANOLAMIDELALY ? Acc #: ?[id number] ?Pt. ? Col Date: ?? 05/01/2011 ? [...] ? 36-year-old with history of Crohn's disease JESENIA PHILLYJUANJOIUM 05/01/2011 2:18 PM EST L Timtohy Matamoros MD PATHOLOGY/CYTOLOGY [place] Performing Organization Address [facility] de Phone Number JESENIA LUAIUM * Specimen to Pathology (surgical or derm) (05/01/2011 12:47 PM EST) AP Specimen 05/01/2011 12:4 7 PM EST 05/01/2011 12:48 PM EST Narrative CERNER MILLENNIUM - 05/01/2011 12:48 PM EST Specimen requisition ordered. ??Separate Pathology report to follow L Timothy Matamoros MD PATHOLOGY/CYTOLOGY [place] Performing Organization Address [facility] de Phone Number JESENIA LUAIUM * Specimen to Pathology (surgical or derm) (05/01/2011 12:47 PM EST) AP Specimen 05/01/2011 12:4 7 PM EST 05/01/2011 12:48 PM EST Narrative JESENIA LUAIUM - 05/01/2011 12:48 PM EST Specimen requisition ordered. ??Separate Pathology report to follow L Timothy Matamoros MD PATHOLOGY/CYTOLOGY [place] JESENIA GOLDBERG * COLONOSCOPY (05/01/2011 12:22 PM EST) COLONOSCOPY [facility] Endoscopy Patient Name: Laly Woodruff ? Procedure Date: 05/01/2011 12:22 PM ? [facility]: [id number] ? Date of : 1975 ? Age: 36 ? Order #: [id number] ? Procedure: ? Colonoscopy Indications: ? Follow-up of Crohn's disease of the ? small bowel Providers: ? L Timothy Matamoros MD, Jackelin Mayen, ? RN, Dwain Olivares, Cleaning Validation Consultant Referring MD: ?None, MD Medicines: ? Midazolam [...] Neutrophil % 52.8 34.0 - 71.0 % [facility] Neutrophil Absolute 2.02 1.50 - 6.30 x10(3)/mcL [...] L Timothy Matamoros MD HEMATOLOGY ORDERABLE S CERNER MILLENNIUM * (ABNORMAL) Hepatic Function Panel [...] Lab L Timothy Matamoros MD CHEMISTRY ORDERABLES JESENIA GOLDBERG * (ABNORMAL) CBC (with Diff) (05/01/2011 12:08 [...] Resulting Agency Comment Spec In Lab Ramonita Matamoros MD HEMATOLOGY ORDERABLE S JESENIA GOLDBERG [...] Mayen, SYDNEE)1233 (Given - Provider: Jackelin Mayen, SYDNEE) midazolam (VERSED) injection (CANCELED) ONCE PRN, Starting on Any 05/01/11 at 1223, Until Any 05/01/11 at 1602, Sleep, Intra-Operative (Intra-Procedure), Routine 1223 (Given - Provid er: Jackelin Mayen, SYDNEE)1227 (Given - Provider: Jackelin Mayen RN)1233 (Given - Provider: Jackelin Mayen, SYDNEE) documented in this encounter Care Teams Health Teacher Relationship Specialty Start Date End Date Irwin Gonsalez DO [address] [place] [address] [address] [facility] 1 [place] [address] PCP - General 05/01/11 03/14/24 documented as of this encounter
--- OUTSIDE RECORDS SUMMARY | 2024-04-18 02:44 | XMS_ITS | Encounter Summary ---
[place] [address] Care Team Providers Care Rn Or Lpn Name Role Phone Irwin Gonsalez DO Primary Care Provider Encounter Details Date Type Department Care Team (Late st Contact Info) Description 07/03/2011 Telephone [place] [phone] Swetha Berry, RN Social History Tobacco Use [...] on filedocumented in this encounter Care Teams Rn Or Lpn Relationship Specialty Start Date End Date Irwin Gonsalez DO [address] [place] [address] PCP - General 05/01/11 03/14/24 documented as of this encounter
--- OUTSIDE RECORDS SUMMARY | 2024-04-18 02:44 | XMS_ITS | Encounter Summary ---
[place] [address] Care Team Providers Care Marking Clerk Name Role Phone Ebenezer Way MD Primary Care Provider Encounter Details Date Type Department Care Team (Late st Contact Info) Description 12/25/2010 Tele[place] [address] Swetha Berry, RN Social History Tobacco Use [...] AM EDT Received a call asking if Kobe can resume his 6MP (pt recently had surgery) Will review with Dr Pandey documented in this encounter Plan of Treatment Not on file documented as of this encounter Visit Diagnoses Not on filedocumented in this encounter Care Teams Marking Clerk Relationship Specialty Start Date End Date Ebenezer Way MD [address] [place] [address] PCP - General 02/05/10 04/22/11 documented as of this encounter
--- OUTSIDE RECORDS SUMMARY | 2024-04-18 02:44 | XMS_ITS | Encounter Summary ---
[place] [address] Care Team Providers Care Manifest Clerk Name Role Phone Irwin Gonsalez DO Primary Care Provider [phone] Encounter Details Date Type Department Care Team (Late st Contact Info) Description 05/19/2011 External [place] [address] Ramonita Pandey MD [facility] [place] [address] Social History Tobacco Use Types Packs/Day Years [...] encounter Results * Scan Doc: Lab (05/18/2011) Ramonita Pandey MD MEDIA MGR SCAN EXT O RDR/RSLT documented in this encounter Visit Diagnoses Not on filedocumented in this encounter Care Teams Manifest Clerk Relationship Specialty Start Date End Date Irwin Gonsalez DO [address] [place] [address] PCP - General 05/01/11 03/14/24 documented as of this encounter
--- OUTSIDE RECORDS SUMMARY | 2024-04-18 02:44 | XMS_ITS | Encounter Summary ---
Author Organization [facility] [address] Care Team Providers Care Can Line Operator Name Role Phone Irwin oGnsalez DO Primary Care Provider [phone] Encounter Details Date Type Department Care Team (Latest Contact Info) Description 05/01/2011 9:51 AM EST - 05/01/2011 2:00 PM EST Hospital En[place] [address] Ramonita Matamoros MD [facility] [place] [address] Crohn's ileitis Discharge Disposition: Home Social History [...] occurs please contact your M.D. Please call [phone] before 5pm with problems, questions or concerns. After 5pm call [phone] and ask to speak with the systems analyst seasonal recruiter. Discharge instructions reviewed with patient who expresses's understanding. * Attachments The following attachments cannot be sent through Care Everywhere. * COLONOSCOPY: WHAT TO EXPECT AT HOME (AUSTRALIAN) * SEDATION FOR A MEDICAL PROCEDURE: AFTER YOUR VISIT (AUSTRALIAN) documented in this encounter Medications at Time [...] PM EST) Surgical Pathology Report ? [facility] ? Provider: ?? Ramonita MATAMOROS ?Pt. Name: ?? TEJAL LALY Basurto ? Acc #: ?[id number] ?Pt. ? Col Date: ?? 05/01/2011 ? [...] ? 36-year-old with history of Crohn's disease CHRISTINAMARVIN FRAGAJUANJOIUM 05/01/2011 2:18 PM EST L Timothy Matamoros MD PATHOLOGY/CYTOLOGY [place] Performing Organization Address [facility] de Phone Number JESENIA LUAIUM * Specimen to Pathology (surgical or derm) (05/01/2011 12:47 PM EST) AP Specimen 05/01/2011 12:4 7 PM EST 05/01/2011 12:48 PM EST Narrative CERNER MILLENNIUM - 05/01/2011 12:48 PM EST Specimen requisition ordered. ??Separate Pathology report to follow L Timothy Matamoros MD PATHOLOGY/CYTOLOGY [place] Performing Organization Address [facility] de Phone Number JESENIA LUAIUM * Specimen to Pathology (surgical or derm) (05/01/2011 12:47 PM EST) AP Specimen 05/01/2011 12:4 7 PM EST 05/01/2011 12:48 PM EST Narrative JESENIA LUAIUM - 05/01/2011 12:48 PM EST Specimen requisition ordered. ??Separate Pathology report to follow L Timothy Matamoros MD PATHOLOGY/CYTOLOGY [place] JESENIA GOLDBERG * COLONOSCOPY (05/01/2011 12:22 PM EST) COLONOSCOPY [facility] Endoscopy Patient Name: Laly Woodruff ? Procedure Date: 05/01/2011 12:22 PM ? N: [id number] ? Date of : 1975 ? Age: 36 ? Order #: [id number] ? Procedure: ? Colonoscopy Indications: ? Follow-up of Crohn's disease of the ? small bowel Providers: ? L Timothy Matamoros MD, Jackelin Mayen, ? RN, Dwain Olivares, Auto Cleaner Referring MD: ?None, MD Medicines: ? Midazolam [...] % 52.8 34.0 - 71.0 % [facility] Neutrophil Absolute 2.02 1.50 - 6.30 x10(3)/mcL [...] Matamoros MD CHEMISTRY ORDERABLES Performing Organization Address City/[facility]/ZIP Co de Phone Number JESENIA GOLDBERG * (ABNORMAL) CBC (with Diff) [...] Provider: Jackelin Mayen RN)1233 (Given - Provider: Jackelni Mayen RN) midazolam (VERSED) injection (CANCELED) ONCE PRN, Starting on Any 05/01/11 at 1223, Until Any 05/01/11 at 1602, Sleep, Intra-Operative (Intra-Procedure), Routine 1223 (Given - Provid er: Jackelin Mayen RN)1227 (Given - Provider: Jackelin Mayen RN)1233 (Given - Provider: Jackelin Mayen RN) documented in this encounter Care Teams Can Line Operator Relationship Specialty Start Date End Date Irwin Gonsalez DO [address] [place] [address] PCP - General 05/01/11 03/14/24 documented as of this encounter
--- OUTSIDE RECORDS SUMMARY | 2024-04-18 02:44 | XMS_ITS | Encounter Summary ---
[place] [address] Care Team Providers Care Ship'S Electronic Warfare Officer Name Role Phone Irwin Gonsalez DO Primary Care Provider Reason for Visit * Reason Onset Date Comments Medication Refill 07/14/2011 Encounter Details Date Type Department Care Team (Late st Contact Info) Description 07/14/2011 Refill [place] [address] Ramonita Pandey MD [facility] [place] [address] IBD (inflammatory bowel disease) Social History Tobacco [...] colitis documented in this encounter Care Teams Ship'S Electronic Warfare Officer Relationship Specialty Start Date End Date Irwin Gonsalez DO [address] [place] [address] PCP - General 05/01/11 03/14/24 documented as of this encounter
--- OUTSIDE RECORDS SUMMARY | 2024-04-18 02:44 | XMS_ITS | Encounter Summary ---
[place] [address] Care Team Providers Care Sr. Social Media & Mobile Manager Name Role Phone Irwin Gonsalez DO Primary Care Provider Reason for Visit * Reason Onset Date Comments Other 08/13/2011 low WBC, hold az a Encounter Details Date Type Department Care Team (Late st Contact Info) Description 08/13/2011 [place] [address] Agueda Trujillo, RN Other (low [...] 7-10 days and have labs redrawn at [facility]. Advised to call to discuss results and recommendations about 48 hours after lab draw. Patient agrees with this plan. Lab order faxed to [facility]. * Telephone Encounter - Agueda Trujillo RN [...] on filedocumented in this encounter Care Teams Sr. Social Media & Mobile Manager Relationship Specialty Start Date End Date Irwin Gonsalez DO [address] [place] [address] PCP - General 05/01/11 03/14/24 documented as of this encounter
--- OUTSIDE RECORDS SUMMARY | 2024-04-18 02:44 | XMS_ITS | Encounter Summary ---
[place] [address] Care Team Providers Care Vet Tech Name Role Phone Ebenezer Way MD Primary Care Provider Encounter Details Date Type Department Care Team (Late st Contact Info) Description 11/04/2010 Orders Only [place] [address] Warren Bender MD Social History Tobacco Use [...] on filedocumented in this encounter Care Teams Vet Tech Relationship Specialty Start Date End Date Ebenezer Way MD [address] [place] [address] PCP - General 02/05/10 04/22/11 documented as of this encounter
--- OUTSIDE RECORDS SUMMARY | 2024-04-18 02:44 | XMS_ITS | Encounter Summary ---
Author Organization [facility] Address [facility] [place] [address] Care Team Providers Care Fusing Machine Tender Name Role Phone Ebenezer Way MD Primary Care Provider Reason for Visit * Reason Onset Date Comments Results 04/04/2011 Encounter Details Date Type Department Care Team (Late st Contact Info) Description 04/04/2011 Telephone [place] [phone] Ramonita Pandey MD [facility] [place] [address] Results Social History Tobacco Use Types Packs/Day [...] on filedocumented in this encounter Care Teams Fusing Machine Tender Relationship Specialty Start Date End Date Ebenezer Way MD [address] [place] [address] PCP - General 02/05/10 04/22/11 documented as of this encounter
--- OUTSIDE RECORDS SUMMARY | 2024-04-18 02:44 | XMS_ITS | Encounter Summary ---
[place] [address] Care Team Providers Care Fire Captain Name Role Phone Ebenezer Way MD Primary Care Provider Encounter Details Date Type Department Care Team (Late st Contact Info) Description 04/04/2011 External Results [place] [address] Ramonita Pandey MD [facility] [place] [address] Social History Tobacco Use Types Packs/Day Years [...] encounter Results * Scan Doc: Lab (03/30/2011) Ramonita Pandey MD MEDIA MGR SCAN EXT O RDR/RSLT documented in this encounter Visit Diagnoses Not on filedocumented in this encounter Care Teams Fire Captain Relationship Specialty Start Date End Date Ebenezer [address] MD [address] [place] [address] PCP - General 02/05/10 04/22/11 documented as of this encounter
--- OUTSIDE RECORDS SUMMARY | 2024-04-18 02:44 | XMS_ITS | Encounter Summary ---
[place] [address] Care Team Providers Care Union Steward Name Role Phone None Primary Care Provider Unavailabl e Encounter Details Date Type Department Care Team (Late st Contact Info) Description 04/28/2011 Telephone [place] [phone] Swetha Berry, RN Social History Tobacco Use [...] had labs redrawn. Will be here at [facility] this week for a colo. Will have bloodwork then. documented in this encounter Plan of Treatment Not on file documented as of this encounter Visit Diagnoses Not on filedocumented in this encounter Care Teams Union Steward Relationship Specialty Start Date End Date None None PCP - General 04/23/11 04/30/11 documented as of this encounter
--- OUTSIDE RECORDS SUMMARY | 2024-04-18 02:44 | XMS_ITS | Encounter Summary ---
[place] [address] Care Team Providers Care Titrator Name Role Phone Ebenezer Way MD Primary Care Provider Reason for Visit * Reason Onset Date Comments Medication Refill 12/26/2010 Encounter Details Date Type Department Care Team (Late st Contact Info) Description 12/26/2010 Refill [place] [address] Ramonita Pandey MD [facility] [place] [address] IBD (inflammatory bowel disease) Social History Tobacco [...] colitis documented in this encounter Care Teams Titrator Relationship Specialty Start Date End Date Ebenzeer Way MD [address] [place] [address] PCP - General 02/05/10 04/22/11 documented as of this encounter
--- OUTSIDE RECORDS SUMMARY | 2024-04-18 02:44 | XMS_ITS | Encounter Summary ---
[place] [address] Care Team Providers Care Bleach Boiler Packer Name Role Phone Ebenezer Way MD Primary Care Provider Reason for Visit * Reason Onset Date Comments Prior Authorization 02/21/2011 Botox for Hy perhidrosis Encounter Details Date Type Department Care Team (Late st Contact Info) Description 02/21/2011 [place] [address] Bharathi Foote MD [facility] DR MARIAM ABDI-DERMATOLOGY [place] [phone] Prior Authorization (Botox for Hyperhidrosis) Social History [...] Patient: Igor Woodruff : 1975 Insurance Company: [facility] Medication: Botox for Hyperhidrosis Prior Authorization Status: I spoke with Oriana from [facility] and Igor Basurto Kacy does not need a priorauthorization for botox. documented in this encounter Plan of Treatment Not on file documented as of this encounter Visit Diagnoses Not on filedocumented in this encounter Care Teams Bleach Boiler Packer Relationship Specialty Start Date End Date Ebenezer Way MD [address] [place] [address] PCP - General 02/05/10 04/22/11 documented as of this encounter
--- OUTSIDE RECORDS SUMMARY | 2024-04-18 02:44 | XMS_ITS | Encounter Summary ---
Author Organization [facility] [place] [address] Care Team Providers Care Delivery Truck Driver Name Role Phone Ebenezer Zarate MD Primary Care Provider [phone] Reason for Visit * Reason Comments Crohn's Disease follow-up surgery Encounter Details Date Type Department Care Team (Late st Contact Info) Description 12/18/2010 8:00 AM EDT [place] [address] Ramonita Pandey MD [facility] [place] [address] Crohn's ileitis (Primary Dx) Discharge Disposition: Home [...] to follow-up with me in 3 months Angelo Pandey MD Technical Services Specialistlogistics support Section of [place]astroenter[place] [address] CC: EBENEZER ZARATE MD [address] [facility] [address] TORITO MOHAN MD [facility] COLON AND RECTAL SURGERY documented in this [...] 0.05 x10(3)/mcL CERNER MILLENNIUM Blood specimen (specimen) 12/18/2010 9:32 AM EDT 12/18/2010 9:45 AM EDT L Timothy Pandey MD HEMATOLOGY ORDERABLE S Performing Organization Address City/[facility]/ZIP Co de Phone Number JESENIA GOLDBERG * Vitamin D 1,25 Dihydroxy (12/18/2010 9:32 AM EDT) Vit D 1,25 Dihydroxy (JULY) 55 18 - 64 pg/mL CERNER MILLENNIUM Comment: Test Performed by: [facility] Dpt of Lab Med and Pathology [address] [place] [address] Stain Maker: Morgan Ding III, M.D. Blood specimen (specimen) 12/18/2010 9:32 AM EDT 12/18/2010 10:47 AM EDT L Timothy Pandey MD LAB SEND OUT ORDERAB LES JESENIA GOLDBERG * Vitamin B12 (12/18/2010 9:32 AM EDT) Vitamin B12 664 207 - 974 pg/mL CHRISTINANER PHILLYENNIUM Blood specimen (specimen) 12/18/2010 9:32 AM EDT 12/18/2010 9:45 AM EDT L Timothy Pandey MD CHEMISTRY ORDERABLES Performing Organization Address [facility] de Phone Number [facility] * High Sensitivity CRP (12/18/2010 9:32 AM EDT) C-Reactive Protein High Sensitivity 1.3 mg/L [facility] Comment: Interpretations: 1) For cardiac risk [...] Pandey MD CHEMISTRY ORDERABLES Performing Organization Address [facility] de Phone Number [facility] * Hepatic Function Panel (12/18/2010 9:32 AM [...] AM EDT Ramonita Pandey MD CHEMISTRY ORDERABLES [facility] MILLENNIUM * CBC (with Diff) (12/18/2010 9:32 AM EDT) Pathologist [facility] White Blood Cell 5.2 4.0 - 10.0 [...] MD HEMATOLOGY ORDERABLE S Performing Organization Address City/State/ZIP Co al Phone Number JESENIA [facility] documented in this encounter Visit Diagnoses Diagnosis Crohn's ileitis- Primary Regional enteritis of small intestine documented in this encounter Care Teams Delivery Truck Driver Relationship Specialty Start Date End Date Ebenezer Zarate MD [address] [place] [address] PCP - General 02/05/10 04/22/11 documented as of this encounter
--- OUTSIDE RECORDS SUMMARY | 2024-04-18 02:44 | XMS_ITS | Encounter Summary ---
[place] [address] Care Team Providers Care Ethnic Origins Teacher Name Role Phone Ebenezer Way MD Primary Care Provider [phone] Encounter Details Date Type Department Care Team (Late st Contact Info) Description 04/10/2011 Telephone [place] [phone] Swetha Berry, RN Social History Tobacco Use [...] on filedocumented in this encounter Care Teams Ethnic Origins Teacher Relationship Specialty Start Date End Date Ebenezer Way MD [address] [place] [address] PCP - General 02/05/10 04/22/11 documented as of this encounter
--- OUTSIDE RECORDS SUMMARY | 2024-04-18 02:44 | XMS_ITS | Encounter Summary ---
[place] [address] Care Team Providers Care Enterprise Sales Person Name Role Phone Ebenezer Way MD Primary Care Provider [phone] Encounter Details Date Type Department Care Team (Late st Contact Info) Description 03/03/2011 External Results [place] [address] Ramonita Pandey MD [facility] [place] [address] Social History Tobacco Use Types Packs/Day Years [...] encounter Results * Scan Doc: Lab (02/23/2011) Ramonita Pandey MD MEDIA MGR SCAN EXT O RDR/RSLT documented in this encounter Visit Diagnoses Not on filedocumented in this encounter Care Teams Enterprise Sales Person Relationship Specialty Start Date End Date Ebenezer Way MD [address] [place] [address] PCP - General 02/05/10 04/22/11 documented as of this encounter
--- OUTSIDE RECORDS SUMMARY | 2024-04-18 02:44 | XMS_ITS | Encounter Summary ---
[place] [address] Care Team Providers Care Enlisted Advisor Name Role Phone Irwin Gonsalez DO Primary Care Provider Encounter Details Date Type Department Care Team (Late st Contact Info) Description 06/27/2011 Telephone [place] [phone] Swetha Berry, RN Social History Tobacco Use [...] on filedocumented in this encounter Care Teams Enlisted Advisor Relationship Specialty Start Date End Date Irwin Gonsalez DO [address] [place] [address] PCP - General 05/01/11 03/14/24 documented as of this encounter
--- OUTSIDE RECORDS SUMMARY | 2024-04-18 02:45 | XMS_ITS | Encounter Summary ---
Author Organization [facility] [place] [address] Care Team Providers Care It Architecture Consultant Name Role Phone Ebenezer Way MD Primary Care Provider [phone] Encounter Details Date Type Department Care Team (Latest Contact Info) Description 04/23/2010 2:15 PM EST Procedure [place] [address] Bharathi Foote MD [facility] [place] [address] Discharge Disposition: Home Social History Tobacco Use [...] on filedocumented in this encounter Care Teams It Architecture Consultant Relationship Specialty Start Date End Date Ebenezer Way MD [address] [place], [place] [address] PCP - General 02/05/10 04/22/11 documented as of this encounter
--- OUTSIDE RECORDS SUMMARY | 2024-04-18 02:45 | XMS_ITS | Encounter Summary ---
[place] [address] Care Team Providers Care Professor Of Apologetics Name Role Phone Ebenezer Way MD Primary Care Provider Reason for Visit * Reason Comments Other Pre-op teaching Encounter Details Date Type Department Care Team (Latest Contact Info) Description 10/25/2010 9:00 AM EDT Clinical Support [place] [phone] NURSE, GENERAL SURGERY Other specified counseling (Primary [...] Primary documented in this encounter Care Teams Professor Of Apologetics Relationship Specialty Start Date End Date Ebenezer Way MD [address] [place] [address] PCP - General 02/05/10 04/22/11 documented as of this encounter
--- OUTSIDE RECORDS SUMMARY | 2024-04-18 02:45 | XMS_ITS | Encounter Summary ---
Author Organization [facility] [place] [address] Care Team Providers Care Patient Care Director Name Role Phone Ebenezer Way MD Primary Care Provider [phone] Encounter Details Date Type Department Care Team (Late st Contact Info) Description 02/28/2010 7:00 AM EST Procedure [place] [address] Ramonita Pandey MD [facility] [place] [address] Social History Tobacco Use Types Packs/Day Years [...] on filedocumented in this encounter Care Teams Patient Care Director Relationship Specialty Start Date End Date Ebenezer Way MD [address] [place], [place] [address] PCP - General 02/05/10 04/22/11 documented as of this encounter
--- OUTSIDE RECORDS SUMMARY | 2024-04-18 02:45 | XMS_ITS | Encounter Summary ---
Author Organization [facility] [place] [address] Care Team Providers Care Maid Cleaning Cooking Name Role Phone Ebenezer Way MD Primary Care Provider [phone] Encounter Details Date Type Department Care Team (Latest Contact Info) Description 10/25/2010 4:52 AM EDT - 10/25/2010 11:59 PM EDT Hospital [place] [phone] Warren Bender MD Crohn's ileitis Discharge Disposition: [...] EDT TYPE AND SCREEN, SDP (FUTURE SURGERY, [facility] SAME DAY PROGRAM ONLY) Routine 10/25/2010 9:54 AM EDT Crohn's ileitis documented in this encounter Results * REFLEX LAB-ABORH TYPE MANUAL (10/25/2010 12:18 PM EDT) Expires at 1232 on: [id number] JESENIA MILLJUANJOIUM ABORH Type A Pos JESENIA SanitorsJUANJOIUM Blood specimen (specimen) 10/25/2010 12:18 PM EDT 10/25/2010 12:18 PM EDT Warren Bender MD BLOOD BANK LAB ORDER CHASE [facility] [employer] * REFLEX LAB-A-DIFF (10/25/2010 10:17 AM EDT) [...] EDT Warren Bender MD HEMATOLOGY ORDERABLE S CERNER MILLENNIUM * HEPATIC FUNCTION PANEL (10/25/2010 10:17 AM EDT) Protein, Total 6.9 6.4 - 8.3 gm/dL CERNER MILLENNIUM Albumin 4.4 3.2 - 5.2 gm/dL CERNER MILLENNIUM Aspartate Aminotransferase 27 0 - 39 unit/L CERNER MILLENNIUM Alanine Aminotransferase 44 0 - 55 unit/L CERNER MILLENNIUM Alkaline Phosphatase 58 40 - 120 unit/L [facility] MILLENNIUM Bilirubin, Total 1.1 0.2 - 1.3 mg/dL [facility] MILLENNIUM Bilirubin, Direct 0.2 0.0 - 0.3 mg/dL [facility] MILLENNIUM Blood specimen (specimen) 10/25/2010 10:17 AM EDT 10/25/2010 10:35 AM EDT Warren Bender MD CHEMISTRY ORDERABLES Performing Organization Address City/[facility] Co de Phone Number [facility] * REFLEX LAB-ANTIBODY SCREEN (10/25/2010 10:17 AM EDT) Ab Screen Interp Negative [facility] Expires at 2359 on: [id number] [facility] Blood specimen (specimen) 10/25/2010 10:17 AM EDT 10/25/2010 10:35 AM EDT Warren Bender MD BLOOD BANK LAB ORDER CHASE Performing Organization Address City/[facility] Co de Phone Number [facility] * REFLEX LAB-ABO/RH TYPING (10/25/2010 10:17 AM EDT) ABORH Type A Pos [facility] Blood specimen (specimen) 10/25/2010 10:17 AM EDT 10/25/2010 10:35 AM EDT Warren Bender MD BLOOD BANK LAB ORDER CHASE Performing Organization Address City/[facility] Co de Phone Number [facility] * Creatinine, serum (10/25/2010 10:17 AM EDT) Creatinine 0.93 0.80 - 1.50 mg/dL [facility] Est Glomerular Filtration Rate >60 >=60 [facility] MILLENNIUM Comment: The National Kidney Disease Education [...] Bender MD CHEMISTRY ORDERABLES Performing Organization Address [facility] de Phone Number JESENIA GOLDBERG * BUN (10/25/2010 10:17 AM EDT) Blood Urea Nitrogen 15 10 - 20 mg/dL JESENIA GOLDBERG Blood specimen (specimen) 10/25/2010 10:17 AM EDT 10/25/2010 10:35 AM EDT Warren Bender MD CHEMISTRY ORDERABLES Performing Organization Address [facility] Co de Phone Number JESENIA PHILLYRONI * (ABNORMAL) CBC (with Diff) (10/25/2010 10:17 AM EDT) White Blood Cell 3.7(L) 4.0 - 10.0 x10(3)/mc L JESENIA LUAIUM Red Blood Cell 4.58(L) 4.63 - 6.08 [...] Standard Deviation 45.0 35.0 - 46.0 fL CERNER MILLENNIUM RDW coefficient of variation 13.7 10.9 - 14.4 % CERNER MILLENNIUM Mean Platelet Volume 9.9 9.0 - 12.0 fL CERNER MILLENNIUM Blood specimen (specimen) 10/25/2010 10:17 AM EDT 10/25/2010 10:35 AM EDT Warren Bender MD HEMATOLOGY ORDERABLE S [facility] documented in this encounter Visit Diagnoses Diagnosis Crohn's ileitis Regional enteritis of small intestine documented in this encounter Care Teams Maid Cleaning Cooking Relationship Specialty Start Date End Date Ebenezer Way MD [address] [place] [address] PCP - General 02/05/10 04/22/11 documented as of this encounter
--- OUTSIDE RECORDS SUMMARY | 2024-04-18 02:45 | XMS_ITS | Encounter Summary ---
[place] [address] Care Team Providers Care Physical Fitness Teacher Name Role Phone Ebenezer Way MD Primary Care Provider [phone] Reason for Visit * Reason Comments Follow-up Encounter Details Date Type Department Care Team (Late st Contact Info) Description 10/02/2010 9:30 AM EDT Follow-[place] [phone] Warren Bender MD Regional enteritis of large [...] The patient is and employed in the [employer] business. He does not smoke and reports [...] has plans for a hunting trip in [place] in December. I have told him that if we perform the procedure by mid-October, he would likely be able to keep those plans, although he may not be back to full endurance at that point. Will await a call from the patient regarding scheduling. Patient would prefer to have any preadmission studies performed in [facility], and that can probably be accommodated. documented in this encounter Plan of Treatment Not on file documented as of this encounter Visit Diagnoses Diagnosis Regional enteritis of large intestine- Primary documented in this encounter Care Teams Physical Fitness Teacher Relationship Specialty Start Date End Date Ebenezer Way MD [address] [place] [address] PCP - General 02/05/10 04/22/11 documented as of this encounter
--- OUTSIDE RECORDS SUMMARY | 2024-04-18 02:45 | XMS_ITS | Encounter Summary ---
[place] [address] Care Team Providers Care Court Orderly Name Role Phone Ebenezer Way MD Primary Care Provider [phone] Encounter Details Date Type Department Care Team (Late st Contact Info) Description 10/29/2010 7:30 AM EDT - 10/29/2010 11:18 AM EDT [place] [address] Torito Mohan MD @LAPAROSCOPIC ASSISTED [...] (even if cooked): apple peels, asparagus, celery, moroccan vegetables, citrus pulp, coconut, mushrooms, popcorn, nuts, [...] at the General Surgery Outpatient Clinic - Speech Pathology Teacher as above for staple removal and wound check. 2. You have a follow up appointment with Dr. Mohan at the General Surgery Outpatient Clinic - Speech Pathology Teacher on November 15, at 4:00 PM. You will receive a phone call and/or a letter in the mail with information about your appointments.Please call [phone] (clinic number for appointments only) to confirm [...] AND HOLIDAYS: ASK FOR THE SURGERY RESIDENT MARRIAGE AND FAMILY SOCIAL WORKER IF ANY OF THE ABOVE OCCUR. Post-Colorectal [...] (even if cooked): apple peels, asparagus, celery, moroccan vegetables, citrus pulp, coconut, mushrooms, popcorn, nuts, seeds, wild rice, whole kernel corn, and the skins of fruit and many other difficult to digest and pass foods should be avoided ?? If uncertain about a food, eat it in moderation and follow with extra fluid by mouth. Igor Woodruff Home Medication Instructions PABLITO:[id number] Printed on:11/01/10 9286 Medication Information esomeprazole (NEXIUM) 20 mg capsule [...] Please follow up with your outpatient PCPand/or Research Manufacturing Operator regarding your need for this medication [...] regarding imuran, advised todc after conversation with international marketing executive and upper level, reprinted AVS with amended [...] and arm improving Scheduled Meds: ??? DISCONTD: PATIENT SERVICES SPECIALIST garcia ??? DISCONTD: PATIENT SERVICES SPECIALIST garcia ??? esomeprazole 40 mg Oral Daily [...] reviewed. Patient lives with his Casi in [facility]. Patient has P non-referral insurance. No Advance Directives on file here at [facility] Patient is POD #1 laparoscopic assisted colectomy for crohns ileitis. At this time patient is NPO except hard candy/chewing gum, IVF at 100/hr. PATIENT SERVICES SPECIALIST D/C, Oxycodone po q4hr prn. Toradol IV q6hr scheduled [id number]. Davidson catheter D/C this afternoon. 94% on [...] RUE, - expect this should resolve. D/C PATIENT SERVICES SPECIALIST Oral analgesics plus Toradol D/c davidson Hard [...] lactated ringers ??? DISCONTD: HYDROmorphone ??? DISCONTD: PATIENT SERVICES SPECIALIST garcia 1 each (10/29/10 1345) Physical Exam: [...] monitor clinical GI status Pain - d/c PATIENT SERVICES SPECIALIST Neuro - follow daily exam of right [...] nausea and shortness of breath. Pt using PATIENT SERVICES SPECIALIST appropriately for pain. Davidson patent. PIV patent. [...] Woodruff is a 35 y.o. male sp [id number] currently in stable condition and recovering well, [...] 10/29/2010 1:52 PM EDT 1350 Pt given PATIENT SERVICES SPECIALIST and inst on use documented in this [...] AM EDT * Discharge Summary - Obdulia oSn - 11/01/2010 9:14 AM EDT General Surgery [...] Course: The patient was admitted post-operatively to [facility], under the care of General Surgery, Dr. [...] made with the Dr. Mohan at the [facility]. He was discharged [...] (even if cooked): apple peels, asparagus, celery, moroccan vegetables, citrus pulp, coconut, mushrooms, popcorn, nuts, [...] at the General Surgery Outpatient Clinic - Speech Pathology Teacher 4 as above for staple removal and wound check. 2. You have a follow up appointment with Dr. Mohan at the General Surgery Outpatient Clinic - Speech Pathology Teacher 4 on November 15, at 4:00 PM. You will receive a phone call and/or a letter in the mail with information about your appointments.Please call [phone] (clinic number for appointments only) to confirm [...] AND HOLIDAYS: ASK FOR THE SURGERY RESIDENT MARRIAGE AND FAMILY SOCIAL WORKER IF ANY OF THE ABOVE OCCUR. Post-Colorectal [...] (even if cooked): apple peels, asparagus, celery, moroccan vegetables, citrus pulp, coconut, mushrooms, popcorn, nuts, seeds, wild rice, whole kernel corn, and the skins of fruit and many other difficult to digest and pass foods should be avoided ?? If uncertain about a food, eat it in moderation and follow with extra fluid by mouth. Igor Woodruff Home Medication Instructions PABLITO:[id number] Printed on:11/01/10 8296 Medication Information esomeprazole (NEXIUM) 20 mg capsule [...] Please follow up with your outpatient PCPand/or Research Manufacturing Operator regarding your need for this medication in the future. Future Appointments and Orders Future Appointments: Provider: Department: Dept Phone: Center: 11/15/2010 4:00 PM Torito Mohan MD [facility] For questions regarding this document or issues relating to this hospitalization on the General Surgery Service, please contact your inpatient physician through the [facility] Logistics Administrator . Issues after hours and on weekends will be handled by the General Surgery staff on-call. Signed: OBDULIA SON * Op Note - Torito Mohan MD - 10/29/2010 1:19 PM EDT [facility] Operative Note Patient Name: Igor Woodruff : [id number] MR#: [id number] Case Date: 10/29/2010 Surgeon: Surgeon(s) and Role: * TORITO MOHAN MD - Primary * BIANCA VERDUZCO MD - Resident-Surgeon Chief Preoperative diagnosis: CROHNS ILEITIS Postoperative diagnosis: CHROHNS ILEITIS Procedure(s): ??LAPAROSCOPIC ASSISTED COLECTOMY, PARTIAL, REM.TERMINAL ILEUM General Preoperative Diagnosis: Crohn's ileocolitis with small-bowel obstruction. Postoperative Diagnosis: Crohn's ileocolitis with small-bowel obstruction. Procedure: Laparoscopic ileocolic resection. Surgeon: Torito Mohan M.D. Meter Tester: Bianca Verduzco M.D. Anesthesia: General. Indications: The [...] general anesthesia, the patient was placed in [facility] stirrups. The abdomen was prepped and draped [...] of each piece of bowel was excised. Agrz-cn-dnbk anastomosis was performed using a LARRY stapler. [...] of Diabetes Mellitus, Position Statement from the [place] [employer]. ??Diabetes Care, Volume 33, Supplement [...] HEMATOLOGY ORDERABLE S JESENIA FRAGAENNIUM * (ABNORMAL) CBC (with Diff) (10/31/2010 6:23 [...] EDT Torito Mohan MD HEMATOLOGY ORDERABLE S CERMARVIN FRAGAENNIUM * (ABNORMAL) BMP w/fasting Glucose (10/31/2010 [...] of Diabetes Mellitus, Position Statement from the [place] [employer]. ??Diabetes Care, Volume 33, Supplement [...] MD HEMATOLOGY ORDERABLE S JESENIA LUAIUM * Phosphorus (10/30/2010 5:33 AM EDT) Phosphorus 3.0 2.5 - 4.5 mg/dL CERNER MILLENNIUM Blood specimen (specimen) 10/30/2010 5:33 AM EDT 10/30/2010 6:10 AM EDT Torito Mohan MD CHEMISTRY ORDERABLES Performing Organization Address City/[facility] Co de Phone Number JESENIA LUAIUM * Magnesium (10/30/2010 5:33 AM EDT) Magnesium 0.73 0.69 - 1.07 mmol/L [facility] PHILLYENNIUM Blood specimen (specimen) 10/30/2010 5:33 AM EDT 10/30/2010 6:10 AM EDT Torito Mohan MD CHEMISTRY ORDERABLES Performing Organization Address [facility] Co de Phone Number JESENIA LUAIUM * (ABNORMAL) CMP w/fasting Glucose (10/30/2010 5:33 AM EDT) Glucose Fasting 97 65 - 99 mg/dL [facility] MILLENNIUM Comment: ?Fasting* Glucose Interpretive Criteria Normal [...] of Diabetes Mellitus, Position Statement from the [place] [employer]. ??Diabetes Care, Volume 33, Supplement [...] MD CHEMISTRY ORDERABLES CERMARVIN FRAGAENNIUM * (ABNORMAL) CBC (with Diff) (10/30/2010 5:33 [...] 1:05 PM EDT) Surgical Pathology Report [id number] ? Location: 4WST; 0403; B The signing [...] tortuous and adhesed upon ? itself with kzipj-lg-jzjyt fistulae between ?loops of small bowel. ??The [...] section of bowel; (A5) colonic margin; (A6-A10) guest experience representative sections of mucosa of larger segment taken every 5 cm from proximal to distal; (A11) fistula; (A12) second fistula. ??(R12) vms/EGJ Microscopic Description Slides reviewed, microscopic description not recorded. Diagnosis Terminal ileum and colon, resection: ?? Crohn's disease of the terminal ileum with a stricture and fistulas. CR-0 11/04/10 [facility] 11/05/10 Verified by: ? Yoseph Velez MD ?Pathologist ?(Electronic Signature) The attending pathologist whose signature appears on this report has reviewed all diagnostic slides and has edited the gross and/or microscopic portion of the report in rendering the final pathologic diagnosis. [facility] 10/29/2010 1:05 PM EDT Torito Mohan MD PATHOLOGY/CYTOLOGY O [place] JESENIA GOLDBERG * Specimen to Pathology (surgical or derm) (10/29/2010 11:28 AM EDT) AP Specimen 10/29/2010 11:2 8 AM EDT 10/29/2010 11:28 AM EDT Narrative JESENIA GOLDBERG - 10/29/2010 11:28 AM EDT Specimen requisition ordered. ??Separate Pathology report to follow Torito Mohan MD PATHOLOGY/CYTOLOGY O RDERABLES JESENIA GOLDBERG documented in this encounter Visit [...] Unit), Routine 0245 (Given - Provider: Ann Samayoa, RN)0745 (Given - Provider: Capo Johansen, RN)1345 (Given - Provider: Capo Johansen, RN)1945 (Given - Provider: Keerthi Lao RN) 0538 (Given - Provider: Lupe Mendoza RN - Comment: Patient asleep. Will reassess when awake)0745 (Canceled Entry - Provider: Lupe Mendoza RN - Comment: Given at 0530)1200 (Given - Provider: Awa Appiah RN)1800 (Given - Provider: Awa Appiah RN) 0000 (Given - Provider: Lupe Mendoza RN)0600 (Given - Provider: Lupe Mendoza RN)1103 (Given - Provider: Ashley Blandon, SYDNEE - [...] Routine 0900 (Given - Provider: Capo Johansen RN)2100 (Given - Provider: Keerthi Lao, SYDNEE) 0900 (Not Given - Provider: Awa Appiah [...] (CANCELED) 100 mL/hr, Intravenous, CONTINUOUS, Starting on 8/16/11 at 1330, Until Any 10/31/10 at 1754, Recovery (Recovery-Hospital Unit) 1128 (New Bag - Provider: Capo Johansen, RN)2132 (New Bag - Provider: Lupe Mendoza, SYDNEE) 0740 (New Bag - Provider: Awa Appiah, RN)1700 (Stopped - Provider: Awa Appiah, RN)1800 (Stopped - Provider: Awa Appiah, RN) PRN Medication Order 10/30/2010 10/31/2010 11/01/2010 OXYcodone (ROXICODONE) immediate release tablet 5 mg 5 mg, Oral, EVERY 4 HOURS PRN, Starting on Thu10/30/10 at 1311, Until Thu11/01/10 at 1335, Pain, Routine 1524 (Given - Provider: Capo Johansen RN) 0026 (Given - Provider: Lupe Mendoza, SYDNEE) documented in this encounter Care Teams Court Orderly Relationship Specialty Start Date End Date Ebenezer Way MD [address] [place] [address] PCP - General 02/05/10 04/22/11 documented as of this encounter
--- OUTSIDE RECORDS SUMMARY | 2024-04-18 02:45 | XMS_ITS | Encounter Summary ---
[place] [address] Care Team Providers Care Technology Services Manager Name Role Phone Ebenezer Way MD Primary Care Provider Encounter Details Date Type Department Care Team (Late st Contact Info) Description 03/26/2010 4:00 PM EST Office Visit [place] [address] Social History Tobacco Use Types Packs/Day Years [...] on filedocumented in this encounter Care Teams Technology Services Manager Relationship Specialty Start Date End Date Ebenezer Way MD [address] [place] [address] PCP - General 02/05/10 04/22/11 documented as of this encounter
--- OUTSIDE RECORDS SUMMARY | 2024-04-18 02:45 | XMS_ITS | Encounter Summary ---
Author Organization [facility] [place] [address] Care Team Providers Care Publicity Writer Name Role Phone Ebenezer Way MD Primary Care Provider Encounter Details Date Type Department Care Team (Late st Contact Info) Description 03/26/2010 2:00 PM EST [place] [address] Ramonita aPndey MD [facility] [place] [address] Discharge Disposition: Home Social History Tobacco Use [...] on filedocumented in this encounter Care Teams Publicity Writer Relationship Specialty Start Date End Date Ebenezer Way MD [address] [place], [place] [address] PCP - General 02/05/10 04/22/11 documented as of this encounter
--- OUTSIDE RECORDS SUMMARY | 2024-04-18 02:45 | XMS_ITS | Encounter Summary ---
[place] [address] Care Team Providers Care Head Setter Name Role Phone Ebenezer Way MD Primary Care Provider [phone] Encounter Details Date Type Department Care Team (Latest Contact Info) Description 10/29/2010 6:06 AM EDT - 11/01/2010 11:34 AM EDT Hospital Encounter [address] [place] [id number] Torito Mohan MD Discharge Disposition: Home Social [...] (even if cooked): apple peels, asparagus, celery, malagasy vegetables, citrus pulp, coconut, mushrooms, popcorn, nuts, [...] at the General Surgery Outpatient Clinic - [facility]2E[employer] Android Developer 4 as above for staple removal and wound check. 2. You have a follow up appointment with Dr. Mohan at the General Surgery Outpatient Clinic - [facility] [employer] Developer 4 on November 15, at 4:00 PM. You will receive a phone call and/or a letter in the mail with information about your appointments.Please call [phone] (clinic number for appointments only) to confirm [...] AND HOLIDAYS: ASK FOR THE SURGERY RESIDENT PEACH GROWER IF ANY OF THE ABOVE OCCUR. Post-Colorectal [...] (even if cooked): apple peels, asparagus, celery, malagasy vegetables, citrus pulp, coconut, mushrooms, popcorn, nuts, seeds, wild rice, whole kernel corn, and the skins of fruit and many other difficult to digest and pass foods should be avoided ?? If uncertain about a food, eat it in moderation and follow with extra fluid by mouth. Igor Woodruff Home Medication Instructions PABLITO:[id number] Printed on:11/01/10 0968 Medication Information esomeprazole (NEXIUM) 20 mg capsule [...] Please follow up with your outpatient PCPand/or Sample Paster regarding your need for this medication in [...] imuran, advised todc after conversation with internal grinder set up operator and upper level, reprinted AVS with amended [...] urine. DKWill continue to monitor * Lupe Mendzoa RN - 11/01/2010 12:19 AM EDT Patient [...] and arm improving Scheduled Meds: ??? DISCONTD: FILEMAKER DEVELOPER garcia ??? DISCONTD: FILEMAKER DEVELOPER garcia ??? esomeprazole 40 mg Oral Daily [...] reviewed. Patient lives with his Casi in [facility]. Patient has P non-referral insurance. No Advance Directives on file here at [facility]. Patient is POD #1 laparoscopic assisted colectomy for crohns ileitis. At this time patient is NPO except hard candy/chewing gum, IVF at 100/hr. FILEMAKER DEVELOPER D/C, Oxycodone po q4hr prn. Toradol IV q6hr scheduled [id number]. Davidson catheter D/C this afternoon. 94% on [...] RUE, - expect this should resolve. D/C FILEMAKER DEVELOPER Oral analgesics plus Toradol D/c davidson Hard [...] Meds: ??? lactated ringers 100 mL/hr (10/29/10 1285) ??? naloxone ??? DISCONTD: lactated ringers ??? DISCONTD: HYDROmorphone ??? DISCONTD: FILEMAKER DEVELOPER garcia 1 each (10/29/10 1345) Physical Exam: [...] monitor clinical GI status Pain - d/c FILEMAKER DEVELOPER Neuro - follow daily exam of right [...] nausea and shortness of breath. Pt using FILEMAKER DEVELOPER appropriately for pain. Davidson patent. PIV patent. [...] Woodruff is a 35 y.o. male sp [id number] currently in stable condition and recovering well, [...] 10/29/2010 1:52 PM EDT 1350 Pt given FILEMAKER DEVELOPER and inst on use documented in this [...] Course: The patient was admitted post-operatively to [facility], under the care of General Surgery, Dr. [...] (even if cooked): apple peels, asparagus, celery, malagasy vegetables, citrus pulp, coconut, mushrooms, popcorn, nuts, [...] at the General Surgery Outpatient Clinic - [facility] Android Developer as above for staple removal and wound check. 2. You have a follow up appointment with Dr. Mohan at the General Surgery Outpatient Clinic - [facility] Android Developer on November 15, at 4:00 PM. You will receive a phone call and/or a letter in the mail with information about your appointments.Please call [phone] (clinic number for appointments only) to confirm [...] AND HOLIDAYS: ASK FOR THE SURGERY RESIDENT PEACH GROWER IF ANY OF THE ABOVE OCCUR. Post-Colorectal [...] (even if cooked): apple peels, asparagus, celery, malagasy vegetables, citrus pulp, coconut, mushrooms, popcorn, nuts, seeds, wild rice, whole kernel corn, and the skins of fruit and many other difficult to digest and pass foods should be avoided ?? If uncertain about a food, eat it in moderation and follow with extra fluid by mouth. Igor Woodruff Home Medication Instructions PABLITO:[id number] Printed on:11/01/10 8405 Medication Information esomeprazole (NEXIUM) 20 mg capsule [...] Please follow up with your outpatient PCPand/or Sample Paster regarding your need for this medication in the future. Future Appointments and Orders Future Appointments: Provider: Department: Dept Phone: Center: 11/15/2010 4:00 PM Torito Mohan MD [facility] Surgery [facility] For questions regarding this document or issues relating to this hospitalization on the General Surgery Service, please contact your inpatient physician through the [facility] Health Information Coder . Issues after hours and on weekends will be handled by the General Surgery staff on-call. Signed: OBDULIA SON * Op Note - Torito Mohan MD - 10/29/2010 1:19 PM EDT [facility] Operative Note Patient Name: Igor Woodruff : [id number] MR#: [id number] Case Date: 10/29/2010 Surgeon: Surgeon(s) and Role: * TORITO MOHAN MD - Primary * BIANCA VERDUZCO MD - Resident-Surgeon Chief Preoperative diagnosis: CROHNS ILEITIS Postoperative diagnosis: CHROHNS ILEITIS Procedure(s): ??LAPAROSCOPIC ASSISTED COLECTOMY, PARTIAL, REM.TERMINAL ILEUM General Preoperative Diagnosis: Crohn's ileocolitis with small-bowel obstruction. Postoperative Diagnosis: Crohn's ileocolitis with small-bowel obstruction. Procedure: Laparoscopic ileocolic resection. Surgeon: Torito Mohan M.D. Budget Coordinator: Bianca Verduzco M.D. Anesthesia: General. Indications: The [...] anesthesia, the patient was placed in [facility] stirrups. The abdomen was prepped and draped [...] of each piece of bowel was excised. Tifp-xr-wkch anastomosis was performed using a LARRY stapler. [...] EDT Torito Mohan MD HEMATOLOGY ORDERABLE S [facility] MILLENNIUM * (ABNORMAL) CBC (with Diff) (11/01/2010 [...] of Diabetes Mellitus, Position Statement from the [place] [employer]. ??Diabetes Care, Volume 33, Supplement [...] ORDERABLES JESENIA LUAIUM * (ABNORMAL) REFLEX LAB-A-DIFF (10/31/2010 6:23 AM [...] HEMATOLOGY ORDERABLE S CERMARVIN FRAGAENNIUM * (ABNORMAL) CBC (with Diff) (10/31/2010 [...] of Diabetes Mellitus, Position Statement from the [place] [employer]. ??Diabetes Care, Volume 33, Supplement [...] MD CHEMISTRY ORDERABLES JESENIA GOLDBERG * (ABNORMAL) REFLEX LAB-A-DIFF (10/30/2010 5:33 AM [...] Absolute 0.01 0.00 - 0.05 x10(3)/mc L JESENIA FRAGAENNIUM Blood specimen (specimen) 10/30/2010 5:33 AM EDT 10/30/2010 6:10 AM EDT Torito Mohan MD HEMATOLOGY ORDERABLE S JESENIA LUAIUM * Phosphorus (10/30/2010 5:33 AM EDT) Phosphorus 3.0 2.5 - 4.5 mg/dL JESENIA FRAGAENNIUM Blood specimen (specimen) 10/30/2010 5:33 AM EDT 10/30/2010 6:10 AM EDT Torito Mohan MD CHEMISTRY ORDERABLES Performing Organization Address City/[facility] Co de Phone Number CERMARVIN FRAGAENNIUM * Magnesium (10/30/2010 5:33 AM EDT) Magnesium 0.73 0.69 - 1.07 mmol/L CERNER MILLENNIUM Blood specimen (specimen) 10/30/2010 5:33 AM EDT 10/30/2010 6:10 AM EDT Torito Mohan MD CHEMISTRY ORDERABLES Performing Organization Address [facility] Co de Phone Number JESENIA FRAGAENNIUM * (ABNORMAL) CMP w/fasting Glucose (10/30/2010 5:33 [...] of Diabetes Mellitus, Position Statement from the [place] [employer]. ??Diabetes Care, Volume 33, Supplement [...] Mohan MD CHEMISTRY ORDERABLES Performing Organization Address City/[facility]/ZIP Co de Phone Number CERNER MILLENNIUM * (ABNORMAL) CBC (with Diff) (10/30/2010 5:33 [...] 1:05 PM EDT) Surgical Pathology Report [id number] ? Location: [facility]; 0403; B The signing pathologist has (i) [...] tortuous and adhesed upon ? itself with denjv-hg-plznj fistulae between ?loops of small bowel. ??The [...] section of bowel; (A5) colonic margin; (A6-A10) financial services sales representative sections of mucosa of larger segment taken every 5 cm from proximal to distal; (A11) fistula; (A12) second fistula. ??(R12) vms/EGJ Microscopic Description Slides reviewed, microscopic description not recorded. Diagnosis Terminal ileum and colon, resection: ?? Crohn's disease of the terminal ileum with a stricture and fistulas. CR-0 11/04/10 [facility] 11/05/10 Verified by: ? Yoseph Velez MD ?Pathologist ?(Electronic Signature) The attending pathologist whose signature appears on this report has reviewed all diagnostic slides and has edited the gross and/or microscopic portion of the report in rendering the final pathologic diagnosis. JESENIA GOLDBERG 10/29/2010 1:05 PM EDT Torito oMhan MD PATHOLOGY/CYTOLOGY O RDERABLES Performing Organization Address City/State/[facility] Co de Phone Number JESENIA GOLDBERG * Specimen to Pathology (surgical or derm) (10/29/2010 11:28 AM EDT) AP Specimen 10/29/2010 11:2 8 AM EDT 10/29/2010 11:28 AM EDT Narrative JESENIA GOLDBERG - 10/29/2010 11:28 AM EDT Specimen requisition ordered. ??Separate Pathology report to follow Torito Mohan MD PATHOLOGY/CYTOLOGY O [place] JESENIA GOLDBERG documented in this encounter Visit [...] L eft Arm HYDROmorphone (DILAUDID) 1 mg/mL FILEMAKER DEVELOPER 30 mL Intravenous, FILEMAKER DEVELOPER ONLY, Starting on Thu10/29/10 at 1345, Until Thu10/30/10 at 0849, FILEMAKER DEVELOPER DOSE (0.1 - 0.3 mg): 0.2 mg [...] Given 10/30/2010 3:24 PM EDT 5 mg FILEMAKER DEVELOPER garcia 1 each Intravenous, CONTINUOUS, Starting on Thu10/29/10 at 1345, Until Thu10/30/10 at 0849, Needed for nurse FILEMAKER DEVELOPER pump access., Recovery (Recovery-Hospital Unit) Rate/Dose Verify [...] Capo Johansen, SYDNEE)1945 (Given - Provider: Keerthi Lao, RN) 0538 (Given - Provider: Lupe Mendoza [...] Ann Samayoa RN)0800 (Given - Provider: Capo Johansen, SYDNEE) esomeprazole [...] Johansen RN)2100 (Given - Provider: Keerthi Lao, RN) 0900 (Not Given - Provider: Awa [...] Awa Appiah RN)1800 (Stopped - Provider: Awa Appiah RN) PRN Medication Order 10/30/2010 10/31/2010 11/01/2010 OXYcodone (ROXICODONE) immediate release tablet 5 mg 5 mg, Oral, EVERY 4 HOURS PRN, Starting on Thu10/30/10 at 1311, Until Thu11/01/10 at 1335, Pain, Routine 1524 (Given - Provider: Capo Johansen RN) 0026 (Given - Provider: Lupe Mendoza RN) documented in this encounter Care Teams Head Setter Relationship Specialty Start Date End Date Ebenezer Way MD [address] [place] [address] PCP - General 02/05/10 04/22/11 documented as of this encounter
--- OUTSIDE RECORDS SUMMARY | 2024-04-18 02:45 | XMS_ITS | Encounter Summary ---
[place] [address] Care Team Providers Care Mammography Technician Name Role Phone Ebenezer Way MD Primary Care Provider [phone] Encounter Details Date Type Department Care Team (Late st Contact Info) Description 10/04/2010 Orders [place] [address] Warren Bender MD Crohn's ileitis Social History [...] intestine documented in this encounter Care Teams Mammography Technician Relationship Specialty Start Date End Date Ebenezer Way MD [address] [place] [address] PCP - General 02/05/10 04/22/11 documented as of this encounter
--- OUTSIDE RECORDS SUMMARY | 2024-04-18 02:45 | XMS_ITS | Encounter Summary ---
[place] [address] Care Team Providers Care Faith Doctor Name Role Phone Ebenezer Way MD Primary Care Provider Encounter Details Date Type Department Care Team (Late st Contact Info) Description 07/02/2010 [place] [address] Ramonita Pandey MD [facility] [place] [address] Social History Tobacco Use Types Packs/Day Years [...] on filedocumented in this encounter Care Teams Faith Doctor Relationship Specialty Start Date End Date Ebenezer Way MD [address] [place] [address] PCP - General 02/05/10 04/22/11 documented as of this encounter
--- OUTSIDE RECORDS SUMMARY | 2024-04-18 02:45 | XMS_ITS | Encounter Summary ---
[place] [address] Care Team Providers Care Office Support Specialist Name Role Phone Ebenezer Way MD Primary Care Provider Reason for Visit * Reason Comments Medication Refill Encounter Details Date Type Department Care Team (Late st Contact Info) Description 07/31/2010 Refill [place] [address] Tan Garcia MD [facility] [place] [address] Social History Tobacco Use Types Packs/Day Years [...] on filedocumented in this encounter Care Teams Office Support Specialist Relationship Specialty Start Date End Date Ebenezer Way MD [address] [place], [place] [address] PCP - General 02/05/10 04/22/11 documented as of this encounter
--- OUTSIDE RECORDS SUMMARY | 2024-04-18 02:45 | XMS_ITS | Encounter Summary ---
Demographics Address [address] [place] [address] Mobile Phone Work Phone Email Address [email or web address] Preferred Language Zambian Marital Status Spiritism Affiliation Unknown Race White Ethnic Group Not or [place] [address] Care Team Providers Care Lmft Name Role Phone Ebenezer Way MD Primary Care Provider Encounter Details Date Type Department Care Team (Late st Contact Info) Description 04/10/2010 9:45 AM EST Office [place] [address] Warren Bender MD Discharge Disposition: Home Social [...] on filedocumented in this encounter Care Teams Lmft Relationship Specialty Start Date End Date Ebenezer Way MD [address] [place], [place] [address] PCP - General 02/05/10 04/22/11 documented as of this encounter
--- OUTSIDE RECORDS SUMMARY | 2024-04-18 02:45 | XMS_ITS | Encounter Summary ---
[place] [address] Care Team Providers Care Airplane Pilot Commercial Name Role Phone Ebenezer Way MD Primary Care Provider [phone] Encounter Details Date Type Department Care Team (Late st Contact Info) Description 08/15/2010 Abstract [place] [address] Ann Chavarria, RN Social History Tobacco Use Types Packs/Day [...] on filedocumented in this encounter Care Teams Airplane Pilot Commercial Relationship Specialty Start Date End Date Ebenezer Way MD [address] [place], [place] [address] PCP - General 02/05/10 04/22/11 documented as of this encounter
--- OUTSIDE RECORDS SUMMARY | 2024-04-18 02:45 | XMS_ITS | Encounter Summary ---
[place] [address] Care Team Providers Care Public Service Officer Name Role Phone Ebenezer Way MD Primary Care Provider [phone] Encounter Details Date Type Department Care Team (Late st Contact Info) Description 10/25/2010 10:00 AM EDT Clinical Support [place] [address] Social History Tobacco Use Types Packs/Day Years [...] on filedocumented in this encounter Care Teams Public Service Officer Relationship Specialty Start Date End Date Ebenezer [address] MD [address] [place] [address] PCP - General 02/05/10 04/22/11 documented as of this encounter
--- OUTSIDE RECORDS SUMMARY | 2024-04-18 02:45 | XMS_ITS | Encounter Summary ---
[place] [address] Care Team Providers Care Aviation Manager Name Role Phone Irwin Gonsalez DO Primary Care Provider Encounter Details Date Type Department Care Team (Late st Contact Info) Description 02/28/2010 [place] [address] Ramonita Pandey MD GASTROENTEROLOGY Social History Tobacco [...] 9:46 AM EST) Surgical Pathology Report [id number] ? Location: [facility] The signing pathologist has (i) examined the [...] report in rendering the final pathologic diagnosis. [facility] 02/28/2010 9:46 AM EST L Timothy Pandey MD PATHOLOGY/CYTOLOGY O RDERABLES Performing Organization Address City/State/[facility] Co ca Phone Number [facility] documented in this encounter Visit Diagnoses Not on filedocumented in this encounter Care Teams Aviation Manager Relationship Specialty Start Date End Date Irwin Gonsalez DO [address] [place] [address] PCP - General 05/01/11 03/14/24 documented as of this encounter
--- OUTSIDE RECORDS SUMMARY | 2024-04-18 02:45 | XMS_ITS | Encounter Summary ---
Author Organization [facility] [place] [address] Care Team Providers Care Financial Reserve Clerk Name Role Phone Ebenezer Way MD Primary Care Provider [phone] Encounter Details Date Type Department Care Team (Late st Contact Info) Description 10/29/2010 7:28 AM EDT Anesthesia [place] [address] Warren Toscano MD [facility] [place] [address] Guadalupe Dubois CRNA Anesthesia Record Procedure Summary [...] and this fact confirmed. Also confirmed with AUTOMATIC EQUIPMENT TECHNICIAN that arm waspadded extensively during procedure per [...] with and consented by. Plan discussed with AUTOMATIC EQUIPMENT TECHNICIAN. documented in this encounter Plan of Treatment Not on file documented as of this encounter Visit Diagnoses Not on filedocumented in this encounter Care Teams Financial Reserve Clerk Relationship Specialty Start Date End Date Ebenezer Way MD [address] [place] [address] PCP - General 02/05/10 04/22/11 documented as of this encounter
--- OUTSIDE RECORDS SUMMARY | 2024-04-18 02:45 | XMS_ITS | Encounter Summary ---
[place] [address] Care Team Providers Care Tax Clerk Name Role Phone Ebenezer Way MD Primary Care Provider Encounter Details Date Type Department Care Team (Late st Contact Info) Description 02/28/2010 [place] [address] Ramonita Matamoros MD [facility] [place] [address] Social History Tobacco Use Types Packs/Day Years [...] 9:46 AM EST) Surgical Pathology Report ? [facility] ? Provider: ?? Ramonita MATAMOROS ?Pt. Name: ?? LALY TOURE ? Acc #: ?[id number] ?Pt. ? Col Date: ?? 02/28/2010 ?/Sex: [...] Diagnosis: ? Crohn's disease - restage disease CERNER MILLENNIUM 02/28/2010 9:46 AM EST L Timothy Matamoros MD PATHOLOGY/CYTOLOGY O [place] Performing Organization Address City/State/[facility] Co de Phone Number [facility] documented in this encounter Visit Diagnoses Not on filedocumented in this encounter Care Teams Tax Clerk Relationship Specialty Start Date End Date Ebenezer Way MD [address] [place] [address] PCP - General 02/05/10 04/22/11 documented as of this encounter
--- OUTSIDE RECORDS SUMMARY | 2024-04-18 02:45 | XMS_ITS | Encounter Summary ---
Author Organization [facility] [place] [address] Care Team Providers Care Hip Hop Dance Instructor Name Role Phone Ebenezer Way MD Primary Care Provider Encounter Details Date Type Department Care Team (Late st Contact Info) Description 04/10/2010 8:00 AM EST Follow-[place] [address] Ramonita Pandey MD [facility] [place] [address] Discharge Disposition: Home Social History Tobacco Use [...] on filedocumented in this encounter Care Teams Hip Hop Dance Instructor Relationship Specialty Start Date End Date Ebenezer Way MD [address] [place], [place] [address] PCP - General 02/05/10 04/22/11 documented as of this encounter
--- OUTSIDE RECORDS SUMMARY | 2024-04-18 02:46 | XMS_ITS | Clinical Summary ---
Author Organization [facility] Address [address] [place] [address] Care Team Providers Care Employment Director Name Role Phone WallaceIrwin kaye Primary Care Provider [phone] Encounters Date Type Department Care Team Description 03/11/2024 Lab Requisition [facility] Pathology & Laboratory [address] [address] Outr Resulting Lab, Provider 03/10/2024 Lab Requisition [facility] Pathology & Laboratory [address] [address] Outr Resulting Lab, Provider 03/10/2024 Lab Requisition [facility] Pathology Laboratory [address] [address] Outr Resulting Lab, Provider from Last 3 [...] Name Priority Date/Time Associated Diagnosis Comments QUANTIFERON INTERPRETATION (PERFORMABLE) Today 03/10/2024 9:41 EST QUANTIFERON MITOGEN (PERFORMABLE) Today 03/10/2024 9:41 EST QUANTIFERON TB2 (PERFORMABLE) Today 03/10/2024 9:41 EST QUANTIFERON TB1 (PERFORMABLE) Today 03/10/2024 9:41 EST QUANTIFERON NIL (PERFORMABLE) Today 03/10/2024 9:41 EST QUANTIFERON TB GOLD PLUS Routine 03/10/2024 9:41 EST HOLD SST Today 03/10/2024 9:41 EST HEPATITIS B SURFACE ANTIBODY Today 03/10/2024 9:41 EST HEPATITIS B CORE ANTIBODY (TOTAL) Today 03/10/2024 9:41 EST PSA TOTAL, DIAGNOSTIC Routine 03/10/2024 9:41 EST HEPATITIS C AB W REFLEX TO HCV RNA BY PCR Routine 04/16/2019 9:38 EST from Last 3 Months or Most Recently Relevant to Health Maintenance Results * QUANTIFERON MITOGEN (PERFORMABLE) (03/10/2024 9:41 EST) Blood VENOUS BLOOD / Unknown 03/10/2024 9:41 EST 03/11/2024 21:57 EST us Provider Outr Resulting Lab IMMUNOLOGY AND SEROL OGY ORDERABLES Final Result Performing Organization Address [facility] Co de Phone Number [facility] [address] [place] [address] * QUANTIFERON TB2 (PERFORMABLE) (03/10/2024 9:41 EST) Blood VENOUS BLOOD / Unknown 03/10/2024 9:41 EST 03/11/2024 21:57 EST us Provider Outr Resulting Lab IMMUNOLOGY AND SEROL OGY ORDERABLES Final Result Performing Organization Address [facility]/ZIP Co de Phone Number [facility] [address] [place] [phone] * QUANTIFERON TB1 (PERFORMABLE) (03/10/2024 9:41 EST) Blood VENOUS BLOOD / Unknown 03/10/2024 9:41 EST 03/11/2024 21:57 EST us Provider Outr Resulting Lab IMMUNOLOGY AND SEROL OGY ORDERABLES Final Result Performing Organization Address [facility] Co de Phone Number [facility] [address] [place] [address] * QUANTIFERON NIL (PERFORMABLE) (03/10/2024 9:41 EST) Blood VENOUS BLOOD / Unknown 03/10/2024 9:41 EST 03/11/2024 21:57 EST us Provider Outr Resulting Lab IMMUNOLOGY AND SEROL OGY ORDERABLES Final Result Performing Organization Address [facility] de Phone Number [facility] [address] [place] [address] * QUANTIFERON INTERPRETATION (PERFORMABLE) (03/10/2024 9:41 EST) [facility] Quantiferon Interpretation Negative Negative 03/14/2024 12:[address] [facility] Comment:No interferon-gamma response to M. tuberculosis antigens was detected. ??Infection with M. tuberculosis is unlikely. A single negative result does not exclude infection with M. tuberculosis. ??In patients at high risk for M. tuberculosis infection, a second test should be considered. TB1 Ag minus Nil 0.02 IU/mL 03/14/20 24 12:[address] [facility] TB2 Ag minus Nil 0.03 IU/mL 03/14/20 24 12:[address] [facility] Blood VENOUS BLOOD / Unknown 03/10/2024 9:41 EST 03/14/2024 12:01 EST us Provider Outr Resulting Lab IMMUNOLOGY AND SEROL OGY ORDERABLES Final Result Performing Organization Address [facility] Co de Phone Number [facility] [address] [place] [address] * HOLD SST (03/10/2024 9:41 EST) Hold Hold 03/10/2024 18:[address] [facility] Blood VENOUS BLOOD / Unknown 03/10/2024 9:41 EST 03/10/2024 17:10 EST us Provider Outr Resulting Lab LAB INFO SERVICE AND SUPPORT & PHONE RESULT Final Result Performing Organization Address [facility]/ZIP Co de Phone Number [facility] [address] [place] [address] * HEPATITIS B CORE ANTIBODY (TOTAL) (03/10/2024 9:41 EST) Pathologist [facility] Hepatitis B Core Ab, Total Negative Negative 03/11/2024 9:[address] [facility] Blood VENOUS BLOOD / Unknown 03/10/2024 9:41 EST 03/10/2024 17:10 EST us Provider Outr Resulting Lab CHEMISTRY & BLOOD GA S ORDERABLES Final Result Performing Organization Address [facility] Co de Phone Number [facility] [address] [place] [phone] * HEPATITIS B SURFACE ANTIBODY (03/10/2024 9:41 EST) Pathologist [facility] Hep B Surface Ab, Quantitative 3.2 See Note mIU/mL 03/11/2024 8:45 [facility] Comment: Reference Range for Hep B Surface Ab, Quant: Positive: >= 10.0 mIU/mL Negative: ??< 10.0 mIU/mL Patient is presumed to not be immune to infection with Hepatitis B Virus. Hep B Surface Ab, Qualitative Negative See Note 03/11/2024 8:45 [facility] Comment: Reference Range for Hep B Surface Ab, Qual: Unvaccinated: ??Negative Vaccinated: ??Positive Blood VENOUS BLOOD / Unknown 03/10/2024 9:41 EST 03/10/2024 17:10 EST Provider Outr Resulting Lab CHEMISTRY & BLOOD GA S ORDERABLES Final Result Performing Organization Address [facility]/ZIP Co de Phone Number [facility] [address] [place] [address] * (ABNORMAL) PSA, DIAGNOSTIC (03/10/2024 9:41 EST) PSA 5.4(H) <=2.5 ng/mL 03/10/2024 18:[address] [facility] Blood VENOUS BLOOD / Unknown 03/10/2024 9:41 EST 03/10/2024 17:[address] [facility] - 03/10/2024 18:07 EST NOTE: Serum PSA concentration should not be interpreted as absolute evidence for the presence or absence of malignant disease. Assayed on Siemens [employer] XPT using chemiluminescent technology.??Values obtained by using different assay methods cannot be used interchangeably. us Provider Outr Resulting Lab CHEMISTRY & BLOOD GA S ORDERABLES Final Result Performing Organization Address [facility] Co de Phone Number [facility] [address] [place] [address] * HEPATITIS C AB W REFLEX TO HCV RNA BY PCR (04/16/2019 9:38 EST) Hep C Antibody Negative Negative 04/18/2019 10:[address] [facility] Blood VENOUS BLOOD / Unknown 04/16/2019 9:38 EST 04/17/2019 15:56 EST us Provider Unknown MD CHEMISTRY & BLOOD GAS ORDERA BLES Final Result Performing Organization Address City/[facility]/ZIP Co de Phone Number [facility] [address] [place] [address] from Last 3 Months or Most Recently Relevant to Health Maintenance Insurance [facility] Care Teams Employment Director Relationship Specialty Start Date End Date Irwin Gonsalez DO [address] [place] [address] [place] [id number] PCP - General 01/14/21
--- OUTSIDE RECORDS SUMMARY | 2024-04-18 02:46 | XMS_ITS | Encounter Summary ---
Author Organization [facility] [place] [address] Care Team Providers Care Blasting Entryman Name Role Phone Ebenezer Way MD Primary Care Provider [phone] Encounter Details Date Type Department Care Team (Late st Contact Info) Description 01/07/2010 [place] [address] Nereyda Salgado APRN [facility] [place] [address] Social History Tobacco Use Types Packs/Day Years [...] EDT 01/07/2010 8:57 AM EDT Nereyda Salgado RECORD PRESS SUPERVISOR CHEMISTRY ORDERAB LES [facility] * HIGH SENSITIVITY CRP (01/07/2010 8:42 AM EDT) Pathologist [facility] C-Reactive Protein High Sensitivity 1.3 mg/L [facility] Comment: Interpretations: 1) For cardiac risk [...] EDT 01/07/2010 8:57 AM EDT Nereyda Salgado RECORD PRESS SUPERVISOR CHEMISTRY ORDERAB LES [facility]ERN[facility] MILLENNIUM * REFLEX LAB-A-DIFF (01/07/2010 8:42 AM EDT) [...] EDT 01/07/2010 8:57 AM EDT Nereyda Gan Naomi RECORD PRESS SUPERVISOR HEMATOLOGY ORDERA BLES Performing Organization Address [facility] Co de Phone Number CERMARVIN FRAGAENNIUM * CBC (01/07/2010 8:42 AM EDT) White [...] EDT 01/07/2010 8:57 AM EDT Nereyda Gan Naomi RECORD PRESS SUPERVISOR HEMATOLOGY ORDERA BLES Performing Organization Address [facility] Co de Phone Number JESENIA GOLDBERG documented in this encounter Visit Diagnoses Not on filedocumented in this encounter Care Teams Blasting Entryman Relationship Specialty Start Date End Date Ebenezer Way MD [address] [place] [address] PCP - General 02/05/10 04/22/11 documented as of this encounter
--- OUTSIDE RECORDS SUMMARY | 2024-04-18 02:46 | XMS_ITS | Encounter Summary ---
Author Organization [facility] Address [address] [place] [address] Care Team Providers Care Feedlot Manager Name Role Phone WallaceIrwin kaye Primary Care Provider [phone] Encounter Details Date Type Department Care Team (Late st Contact Info) Description 03/10/2024 Lab Requisition [facility] Pathology & Laboratory Medicine - [address] [id number] Outr Resulting Lab, Provider Social History Tobacco [...] Associated Diagnosis Comments PSA TOTAL, DIAGNOSTIC Routine 03/10/2024 9:41 EST documented in this encounter Results * (ABNORMAL) PSA, DIAGNOSTIC (03/10/2024 9:41 EST) PSA 5.4(H) <=2.5 ng/mL 03/10/2024 18:07 EST [facility] Blood VENOUS BLOOD / Unknown 03/10/2024 9:41 EST 03/10/2024 17:13 EST Narrative [facility] - 03/10/2024 18:07 EST NOTE: Serum PSA concentration should not be interpreted as absolute evidence for the presence or absence of malignant disease. Assayed on Siemens [employer] XPT using chemiluminescent technology.??Values obtained by using different assay methods cannot be used interchangeably. us Provider Outr Resulting Lab CHEMISTRY & BLOOD GA S ORDERABLES Final Result [facility] [address] [place] [phone] documented in this encounter Visit Diagnoses Not on filedocumented in this encounter Care Teams Feedlot Manager Relationship Specialty Start Date End Date Irwin Gonsalez DO [address] [place] [address] PCP - General 01/14/21 documented as of this encounter
--- OUTSIDE RECORDS SUMMARY | 2024-04-18 02:46 | XMS_ITS ---
[place] [address] Care Team Providers Care Rate Examiner Name Role Phone Richard Tidwell APRN Primary Care Provider [phone] Gastroenterology Status:Ineligible (Enrolling) Start date:12/11/2023 Enrollment reason:Ineligible - Insurance Mandate Current support & services provided:Benefits Investigation, Prior Authorization Management Linked medications:adalimumab (Active) Linked problems:Crohn's ileitis (Active) Overview Obed hoover (gastro) MARCOS on file through 05/20/2024. Insurance mandated to [employer]. Continued Care and Services Coordination
--- OUTSIDE RECORDS SUMMARY | 2024-04-18 02:46 | XMS_ITS | Encounter Summary ---
[place] [address] Care Team Providers Care Outside Physical Damage Appraiser Name Role Phone Ebenezer Way MD Primary Care Provider [phone] Encounter Details Date Type Department Care Team (Latest Contact Info) Description 02/28/2010 7:14 AM EST - 02/28/2010 10:00 AM [facility] Encounter [place] [address] Ramonita Pandey MD [facility] [address] Discharge Disposition: Home Social History Tobacco Use [...] on filedocumented in this encounter Care Teams Outside Physical Damage Appraiser Relationship Specialty Start Date End Date Ebenezer Way MD [address] [place] [address] PCP - General 02/05/10 04/22/11 documented as of this encounter
--- OUTSIDE RECORDS SUMMARY | 2024-04-18 02:46 | XMS_ITS | Encounter Summary ---
[place] [address] Care Team Providers Care Accordion Maker Name Role Phone Unavailable Primary Care Provider Unavailabl e Encounter Details Date Type Department Care Team (Late st Contact Info) Description 01/14/2010 8:00 AM EDT Procedure visit [place] [address] Social History Tobacco Use Types Packs/Day Years [...]
--- OUTSIDE RECORDS SUMMARY | 2024-04-18 02:46 | XMS_ITS | Encounter Summary ---
Author Organization [facility] Address [address] [place] [address] Care Team Providers Care Anesthesiologist And Critical Care Name Role Phone WallaceIrwin kaye Primary Care Provider +1- [phone] Encounter Details Date Type Department Care Team (Late st Contact Info) Description 03/10/2024 Lab Requisition [facility] Pathology & Laboratory Medicine - [facility] [place] [address] [place], [place] [id number] Outr Resulting Lab, Provider Social History Tobacco [...] Procedure Name Priority Date/Time Associated Diagnosis Comments HOLD SST Today 03/10/2024 9:41 EST HEPATITIS B CORE ANTIBODY (TOTAL) Today 03/10/2024 9:41 EST HEPATITIS B SURFACE ANTIBODY Today 03/10/2024 9:41 EST documented in this encounter Results * HOLD SST (03/10/2024 9:41 EST) Hold Hold 03/10/2024 18:15 EST [facility] Blood VENOUS BLOOD / Unknown 03/10/2024 9:41 EST 03/10/2024 17:10 EST us Provider Outr Resulting Lab LAB INFO SERVICE AND SUPPORT & PHONE RESULT Final Result Performing Organization Address City/[facility]/ZIP Co de Phone Number [facility] [address] [place] [address] * HEPATITIS B SURFACE ANTIBODY (03/10/2024 9:41 EST) Hep B Surface Ab, Quantitative 3.2 See Note mIU/mL 03/11/2024 8:45 EST [facility] Comment: Reference Range for Hep B Surface Ab, Quant: Positive: >= 10.0 mIU/mL Negative: ??< 10.0 mIU/mL Patient is presumed to not be immune to infection with Hepatitis B Virus. Hep B Surface Ab, Qualitative Negative See Note 03/11/2024 8:45 EST [facility] Comment: Reference Range for Hep B Surface Ab, Qual: Unvaccinated: ??Negative Vaccinated: ??Positive Blood VENOUS BLOOD / Unknown 03/10/2024 9:41 EST 03/10/2024 17:10 EST us Provider Outr Resulting Lab CHEMISTRY & BLOOD GA S ORDERABLES Final Result Performing Organization Address [facility] Co de Phone Number [facility] [address] [place] [address] * HEPATITIS B CORE ANTIBODY (TOTAL) (03/10/2024 9:41 EST) Hepatitis B Core Ab, Total Negative Negative 03/11/2024 9:47 EST [facility] Blood VENOUS BLOOD / Unknown 03/10/2024 9:41 EST 03/10/2024 17:10 EST us Provider Outr Resulting Lab CHEMISTRY & BLOOD GA S ORDERABLES Final Result Performing Organization Address City/[facility]/ZIP Co de Phone Number [facility] [address] [place] [address] documented in this encounter Visit Diagnoses Not on filedocumented in this encounter Care Teams Anesthesiologist And Critical Care Relationship Specialty Start Date End Date Irwin Gonsalez DO [address] [place] [address] PCP - General 01/14/21 documented as of this encounter
--- OUTSIDE RECORDS SUMMARY | 2024-04-18 02:46 | XMS_ITS | Encounter Summary ---
Author Organization [facility] Address [address] [place] [address] Care Team Providers Care Senior Firewall Engineer Name Role Phone Warren Sampson MD Primary Care Provider Unavailab Irwin López DO Primary Care Provider +1- [phone] Encounter Details Date Type Department Care Team (Late st Contact Info) Description 04/17/2019 Lab Requisition [facility] Pathology & Laboratory Medicine - [address] [address] Unknown, Provider, Social History Tobacco Use Types [...] C Antibody Negative Negative 04/18/2019 10:38 EST [facility] Blood VENOUS BLOOD / Unknown 04/16/2019 9:38 EST 04/17/2019 15:56 EST us Provider Unknown CHEMISTRY & BLOOD GAS ORDERA BLES Final Result [facility] [address] [place] [address] documented in this encounter Visit Diagnoses Not on filedocumented in this encounter Care Teams Senior Firewall Engineer Relationship Specialty Start Date End Date Warren Sampson MD PCP - General 01/21/15 01/13/21 Irwin Gonsalez DO [address] [place] [address] PCP - General 01/14/21 documented as of this encounter
--- OUTSIDE RECORDS SUMMARY | 2024-04-18 02:46 | XMS_ITS | Encounter Summary ---
Author Organization [facility] Address [address] [place] [address] Care Team Providers Care Coordinate Measuring Machine Programmer Name Role Phone Irwin Gonsalez DO Primary Care Provider +1- [phone] Encounter Details Date Type Department Care Team (Late st Contact Info) Description 02/05/2021 Lab Requisition [facility] Pathology & Laboratory Medicine - [facility] [address] [place] [address] Irwin Gonsalez DO [address] [place], [place] [address] Encounter for other general examination Social History [...] management options, if applicable. 02/06/2021 15:45 EST [facility] Final Diagnosis A. SKIN OF SHOULDER, RIGHT, PUNCH BIOPSY: - Dermatofibroma. - Lesion extends to peripheral edge and base of biopsy specimen. 02/06/2021 15:45 [facility] Attestation By the signature below, the attending physician certifies that they have 1) personally conducted a gross and/or microscopic examination of the described specimen(s), and/or personally interpreted the results of laboratory testing of the described specimen(s), and 2) personally rendered or confirmed the above diagnosis. 02/06/2021 15:45 [facility] at 1545 Clinical History Basal cell R shoulder 02/06/2021 15:45 [facility] Gross Description A. Received in formalin labelled with proper patient identification (initials C, N) and 3 mm punch R shoulder is a punch biopsy mazariegos skin (0.3 cm in diameter by 0.2 cm in depth). The specimen is submitted intact in A1. MARCOS WARD(ASCP) 02/06/2021 7:55 02/06/2021 15:45 [facility] Performing Lab [facility] 02/06/2021 15:45 [facility] Scanned Images 02/06/2021 15:45 [facility] Tissue TISSUE SPECIMEN FROM SKIN / Unknown 02/05/2021 10:45 EST 02/05/2021 22:39 EST Irwin Gonsalez DO PATHOLOGY ORDERABLES Final Result Performing Organization Address City/State/[facility] Co de Phone Number [facility] [address] [place] [address] documented in this encounter Visit Diagnoses Diagnosis Encounter for other general examination documented in this encounter Care Teams Coordinate Measuring Machine Programmer Relationship Specialty Start Date End Date Irwin Gonsalez DO [address] [place] [address] PCP - General 01/14/21 documented as of this encounter
--- OUTSIDE RECORDS SUMMARY | 2024-04-18 02:46 | XMS_ITS | Encounter Summary ---
Author Organization [facility] Address [address] [place] [address] Care Team Providers Care Intermodal Truck Driver Name Role Phone Unavailable Primary Care Provider Unavailabl e Encounter Details Date Type Department Care Team (Late st Contact Info) Description 04/15/2006 Results Only [facility] - Maple conversion [address] [place] [address] Torito Lopez MD [address] [place] [address] Social History Tobacco Use Types Packs/Day Years [...] ? LALY TOURE ? Accession #: ? [id number] ? : ? 1975 (Age: 31) ??M [...] was reviewed at intradepartmental consultation conference. ??(Dr. Mejias)/[facility] Document reviewed and electronically signed by: [...] is entirely submitted in one cassette. ??(Ria Castañeda)/[facility] End of Report RADHA TELLO 04/15/2006 04/15/2006 15: 29 EST us Torito Lopez MD PATHOLOGY ORDERABLES Final Res ult RADHA TELLO [address] [place] [address] documented in this encounter Visit Diagnoses Not on filedocumented in this encounter
--- OUTSIDE RECORDS SUMMARY | 2024-04-18 02:46 | XMS_ITS | Referral Summary ---
Author Organization [facility] Address [address] [place] [address] Care Team Providers Care Mailing Machine Assistant Name Role Phone WallaceIrwin kaye Primary Care Provider +1- [phone] Encounters Date Type Department Care Team Description 03/11/2024 Lab Requisition [facility] Pathology & Laboratory [address] [address] Outr Resulting Lab, Provider 03/10/2024 Lab Requisition [facility] Pathology & Laboratory [address] [address] Outr Resulting Lab, Provider 03/10/2024 Lab Requisition [facility] Pathology Laboratory [address] [address] Outr Resulting Lab, Provider from Last 3 [...] OGY ORDERABLES Final Result Performing Organization Address City/[facility]/ZIP Co de Phone Number [facility] [address] [place] [address] * QUANTIFERON TB2 (PERFORMABLE) (03/10/2024 9:41 EST) Blood VENOUS BLOOD / Unknown 03/10/2024 9:41 EST 03/11/2024 21:57 EST us Provider Outr Resulting Lab IMMUNOLOGY AND SEROL OGY ORDERABLES Final Result [facility] [address] [place] [address] * QUANTIFERON TB1 (PERFORMABLE) (03/10/2024 9:41 EST) Blood VENOUS BLOOD / Unknown 03/10/2024 9:41 EST 03/11/2024 21:57 EST us Provider Outr Resulting Lab IMMUNOLOGY AND SEROL OGY ORDERABLES Final Result [facility] [address] [place] [address] * QUANTIFERON NIL (PERFORMABLE) (03/10/2024 9:41 EST) Blood VENOUS BLOOD / Unknown 03/10/2024 9:41 EST 03/11/2024 21:57 EST us Provider Outr Resulting Lab IMMUNOLOGY AND SEROL OGY ORDERABLES Final Result Performing Organization Address [facility]/ZIP Co de Phone Number [facility] [address] [place] [address] * QUANTIFERON INTERPRETATION (PERFORMABLE) (03/10/2024 9:41 EST) Quantiferon Interpretation Negative Negative 03/14/2024 12:47 EST [facility] Comment:No interferon-gamma response to M. tuberculosis antigens was detected. ??Infection with M. tuberculosis is unlikely. A single negative result does not exclude infection with M. tuberculosis. ??In patients at high risk for M. tuberculosis infection, a second test should be considered. TB1 Ag minus Nil 0.02 IU/mL 03/14/20 24 12:47 EST [facility] TB2 Ag minus Nil 0.03 IU/mL 03/14/20 24 12:47 EST [facility] Blood VENOUS BLOOD / Unknown 03/10/2024 9:41 EST 03/14/2024 12:01 EST us Provider Outr Resulting Lab IMMUNOLOGY AND SEROL OGY ORDERABLES Final Result Performing Organization Address City/[facility]/ZIP Co de Phone Number [facility] [address] [place] [address] * HOLD SST (03/10/2024 9:41 EST) Hold Hold 03/10/2024 18:15 EST [facility] Blood VENOUS BLOOD / Unknown 03/10/2024 9:41 EST 03/10/2024 17:10 EST us Provider Outr Resulting Lab LAB INFO SERVICE AND SUPPORT & PHONE RESULT Final Result Performing Organization Address City/[facility]/ZIP Co de Phone Number [facility] [address] [place] [address] * HEPATITIS B CORE ANTIBODY (TOTAL) (03/10/2024 9:41 EST) Hepatitis B Core Ab, Total Negative Negative 03/11/2024 9:47 EST [facility] Blood VENOUS BLOOD / Unknown 03/10/2024 9:41 EST 03/10/2024 17:10 EST us Provider Outr Resulting Lab CHEMISTRY & BLOOD GA S ORDERABLES Final Result Performing Organization Address [facility]/ZIP Co de Phone Number [facility] [address] [place] [address] * HEPATITIS B SURFACE ANTIBODY (03/10/2024 9:41 EST) Hep B Surface Ab, Quantitative 3.2 See Note mIU/mL 03/11/2024 8:45 EST [facility] Comment: Reference Range for Hep B Surface Ab, Quant: Positive: >= 10.0 mIU/mL Negative: ??< 10.0 mIU/mL Patient is presumed to not be immune to infection with Hepatitis B Virus. Hep B Surface Ab, Qualitative Negative See Note 03/11/2024 8:45 EST [facility] Comment: Reference Range for Hep B Surface Ab, Qual: Unvaccinated: ??Negative Vaccinated: ??Positive Blood VENOUS BLOOD / Unknown 03/10/2024 9:41 EST 03/10/2024 17:10 EST us Provider Outr Resulting Lab CHEMISTRY & BLOOD GA S ORDERABLES Final Result Performing Organization Address City/[facility]/ZIP Co de Phone Number [facility] [address] [place] [address] * (ABNORMAL) PSA, DIAGNOSTIC (03/10/2024 9:41 EST) PSA 5.4(H) <=2.5 ng/mL 03/10/2024 18:07 EST [facility] Blood VENOUS BLOOD / Unknown 03/10/2024 9:41 EST 03/10/2024 17:13 EST Narrative [facility] - 03/10/2024 18:07 EST NOTE: Serum PSA concentration should not be interpreted as absolute evidence for the presence or absence of malignant disease. Assayed on Siemens SocialBroaur XPT using chemiluminescent technology.??Values obtained by using different assay methods cannot be used interchangeably. us Provider Outr Resulting Lab CHEMISTRY & BLOOD GA S ORDERABLES Final Result Performing Organization Address City/[facility]/ZIP Co de Phone Number [facility] [address] [place] [address] * HEPATITIS C AB W REFLEX TO HCV RNA BY PCR (04/16/2019 9:38 EST) Pathologist [facility] Hep C Antibody Negative Negative 04/18/2019 10:38 EST [facility] Blood VENOUS BLOOD / Unknown 04/16/2019 9:38 EST 04/17/2019 15:56 EST Provider Unknown MD CHEMISTRY & BLOOD GAS ORDERA BLES Final Result [facility] [address] [place] [address] from Last 3 Months or Most Recently Relevant to Health [facility] Care Teams Mailing Machine Assistant Relationship Specialty Start Date End Date Irwin Gonsalez DO [address] [place] [address] PCP - General 01/14/21
--- OUTSIDE RECORDS SUMMARY | 2024-04-18 02:46 | XMS_ITS | Encounter Summary ---
Author Organization [facility] Address [address] [place] [address] Care Team Providers Care Tree Wrapper Name Role Phone Wallace, Irwin Thad Primary Care Provider +1- [phone] Encounter Details Date Type Department Care Team (Late st Contact Info) Description 01/12/2024 Lab Requisition [facility] Pathology & Laboratory Medicine - [address] [id number] Outr Resulting Lab, Provider Social History Tobacco [...] PSA 6.1(H) <=2.5 ng/mL 01/12/2024 18:38 EDT [facility] Blood VENOUS BLOOD / Unknown 01/12/2024 9:07 EDT 01/12/2024 17:53 EDT Narrative [facility] - 01/12/2024 18:38 EDT NOTE: Serum PSA concentration should not be interpreted as absolute evidence for the presence or absence of malignant disease. Assayed on Siemens ADVIA Centaur XPT using chemiluminescent technology.??Values obtained by using different assay methods cannot be used interchangeably. us Provider Outr Resulting Lab CHEMISTRY & BLOOD GA S ORDERABLES Final Result [facility] [address] [place] [address] documented in this encounter Visit Diagnoses Not on filedocumented in this encounter Care Teams Tree Wrapper Relationship Specialty Start Date End Date Irwin Gonsalez DO [address] [place] [address] [place] [address] PCP - General 01/14/21 documented as of this encounter
--- OUTSIDE RECORDS SUMMARY | 2024-04-18 02:46 | XMS_ITS | Encounter Summary ---
Author Organization [facility] Address [address] [place] [address] Care Team Providers Care Farm Forestry And Garden Workers Name Role Phone Wallace, Irwin Thad Primary Care Provider +1- [phone] Encounter Details Date Type Department Care Team (Late st Contact Info) Description 03/11/2024 Lab Requisition [facility] Pathology & Laboratory Medicine - [facility] [address] [place], [place] [address] Outr Resulting Lab, Provider Social History Tobacco [...] Associated Diagnosis Comments QUANTIFERON MITOGEN (PERFORMABLE) Today 03/10/2024 9:41 EST QUANTIFERON TB2 (PERFORMABLE) Today 03/10/2024 9:41 EST QUANTIFERON TB1 (PERFORMABLE) Today 03/10/2024 9:41 EST QUANTIFERON NIL (PERFORMABLE) Today 03/10/2024 9:41 EST QUANTIFERON INTERPRETATION (PERFORMABLE) Today 03/10/2024 9:41 EST QUANTIFERON TB GOLD PLUS Routine 03/10/2024 9:41 EST documented in this encounter Results * QUANTIFERON INTERPRETATION (PERFORMABLE) (03/10/2024 9:41 EST) [facility] Quantiferon Interpretation Negative Negative 03/14/2024 12:47 EST [facility] Comment:No interferon-gamma response to M. tuberculosis antigens was detected. ??Infection with M. tuberculosis is unlikely. A single negative result does not exclude infection with M. tuberculosis. ??In patients at high risk for M. tuberculosis infection, a second test should be considered. TB1 Ag minus Nil 0.02 IU/mL 03/14/20 24 12:47 EST [facility] TB2 Ag minus Nil 0.03 IU/mL 03/14/20 24 12:47 EST [facility] Blood VENOUS BLOOD / Unknown 03/10/2024 9:41 EST 03/14/2024 12:01 EST us Provider Outr Resulting Lab IMMUNOLOGY AND SEROL OGY ORDERABLES Final Result Performing Organization Address [facility] de Phone Number [facility] [address] [place] [address] * QUANTIFERON MITOGEN (PERFORMABLE) (03/10/2024 9:41 EST) Blood VENOUS BLOOD / Unknown 03/10/2024 9:41 EST 03/11/2024 21:57 EST us Provider Outr Resulting Lab IMMUNOLOGY AND SEROL OGY ORDERABLES Final Result Performing Organization Address [facility] de Phone Number [facility] [address] [place] [address] * QUANTIFERON TB2 (PERFORMABLE) (03/10/2024 9:41 EST) Blood VENOUS BLOOD / Unknown 03/10/2024 9:41 EST 03/11/2024 21:57 EST us Provider Outr Resulting Lab IMMUNOLOGY AND SEROL OGY ORDERABLES Final Result Performing Organization Address [facility] Co de Phone Number [facility] [address] [place] [address] * QUANTIFERON TB1 (PERFORMABLE) (03/10/2024 9:41 EST) Blood VENOUS BLOOD / Unknown 03/10/2024 9:41 EST 03/11/2024 21:57 EST us Provider Outr Resulting Lab IMMUNOLOGY AND SEROL OGY ORDERABLES Final Result Performing Organization Address [facility] Co de Phone Number [facility] [address] [place], [place] [address] * QUANTIFERON NIL (PERFORMABLE) (03/10/2024 9:41 EST) Blood VENOUS BLOOD / Unknown 03/10/2024 9:41 EST 03/11/2024 21:57 EST Provider Outr Resulting Lab IMMUNOLOGY AND SEROL OGY ORDERABLES Final Result Performing Organization Address City/[facility] de Phone Number [facility] [address] [place] [address] documented in this encounter Visit Diagnoses Not on filedocumented in this encounter Care Teams Farm Forestry And Garden Workers Relationship Specialty Start Date End Date Irwin Gonsalez DO [address] [place] [address] [place] [address] PCP - General 01/14/21 documented as of this encounter
--- OUTSIDE RECORDS SUMMARY | 2024-04-18 02:46 | XMS_ITS | Encounter Summary ---
[place] [address] Care Team Providers Care Insurance Sales Producer Name Role Phone Irwin Gonsalez DO Primary Care Provider Encounter Details Date Type Department Care Team (Late st Contact Info) Description 01/18/2009 [place] [address] Ramonita Pandey MD GASTROENTEROLOGY Social History Tobacco [...] 12:32 PM EST) Surgical Pathology Report [id number] ? Location: 4T The signing pathologist has [...] CR-PX 01/19/09 [facility] 01/19/09 Verified by: ? Reji JONES, [facility] ?Pathologist ?(Electronic Signature) The attending pathologist whose signature appears on this report has reviewed all diagnostic slides and has edited the gross and/or microscopic portion of the report in rendering the final pathologic diagnosis. JESENIA GOLDBERG 01/18/2009 12:3 2 PM EST L Timothy Pandey MD PATHOLOGY/CYTOLOGY O RDERABLES Performing Organization Address City/State/[facility] Co de Phone Number JESENIA FRAGASAN [facility] documented in this encounter Visit Diagnoses Not on filedocumented in this encounter Care Teams Insurance Sales Producer Relationship Specialty Start Date End Date Irwin Gonsalez DO [address] [place] [address] [place] [address] PCP - General 05/01/11 03/14/24 documented as of this encounter
--- OUTSIDE RECORDS SUMMARY | 2024-04-18 02:46 | XMS_ITS | Encounter Summary ---
Author Organization [facility] Address [address] [place] [address] Care Team Providers Care Size Worker Name Role Phone Unavailable Primary Care Provider Unavailabl e Encounter Details Date Type Department Care Team (Late st Contact Info) Description 03/22/2003 Results Only [facility] - Maple conversion [address] [place] [address] Torito Lopez MD [address] [place] [address] Social History Tobacco Use Types Packs/Day Years [...] at the intradepartmental consultation conference. ( Dr cShulz) Document reviewed and electronically signed by: ELIN [...] ORDERABLES Final Res ult RADHA TELLO [address] [place] [address] documented in this encounter Visit Diagnoses Not on filedocumented in this encounter
--- OUTSIDE RECORDS SUMMARY | 2024-04-18 02:46 | XMS_ITS | Encounter Summary ---
Author Organization [facility] Address [address] [place] [address] Care Team Providers Care Hand Striper Name Role Phone Wallace, Irwin Thad Primary Care Provider [phone] Encounter Details Date Type Department Care Team (Late st Contact Info) Description 06/20/2023 Lab Requisition [facility] Pathology & Laboratory Medicine - [facility] [address], [place] [id number] Outr Resulting Lab, Provider Social History Tobacco [...] * QUANTIFERON INTERPRETATION (PERFORMABLE) (06/19/2023 10:52 EDT) [facility] Quantiferon Interpretation Negative Negative 06/21/2023 14:30 EDT [facility] Comment:No interferon-gamma response to M. tuberculosis antigens was detected. ??Infection with M. tuberculosis is unlikely. A single negative result does not exclude infection with M. tuberculosis. ??In patients at high risk for M. tuberculosis infection, a second test should be considered. TB1 Ag minus Nil 0.00 IU/ml 06/21/19 24 14:30 EDT [facility] TB2 Ag minus Nil 0.01 IU/mL 06/21/19 14:30 EDT [facility] Blood VENOUS BLOOD / Unknown 06/19/2023 10:52 EDT 06/21/2023 14:30 EDT us Provider Outr Resulting Lab IMMUNOLOGY AND SEROL OGY ORDERABLES Final Result Performing Organization Address [facility] Co de Phone Number [facility] [address] [place] [phone] * QUANTIFERON MITOGEN (PERFORMABLE) (06/19/2023 10:52 EDT) Blood VENOUS BLOOD / Unknown 06/19/2023 10:52 EDT 06/20/2023 21:31 EDT us Provider Outr Resulting Lab IMMUNOLOGY AND SEROL OGY ORDERABLES Final Result Performing Organization Address [facility]/ZIP Co de Phone Number [facility] [address] [place] [phone] * QUANTIFERON TB2 (PERFORMABLE) (06/19/2023 10:52 EDT) Blood VENOUS BLOOD / Unknown 06/19/2023 10:52 EDT 06/20/2023 21:31 EDT us Provider Outr Resulting Lab IMMUNOLOGY AND SEROL OGY ORDERABLES Final Result Performing Organization Address City/[facility]/ZIP Co de Phone Number [facility] [address] [place] [phone] * QUANTIFERON TB1 (PERFORMABLE) (06/19/2023 10:52 EDT) Blood VENOUS BLOOD / Unknown 06/19/2023 10:52 EDT 06/20/2023 21:31 EDT us Provider Outr Resulting Lab IMMUNOLOGY AND SEROL OGY ORDERABLES Final Result Performing Organization Address [facility] Co de Phone Number [facility] [address] [place] [address] * QUANTIFERON NIL (PERFORMABLE) (06/19/2023 10:52 EDT) Blood VENOUS BLOOD / Unknown 06/19/2023 10:52 EDT 06/20/2023 21:31 EDT us Provider Outr Resulting Lab IMMUNOLOGY AND SEROL OGY ORDERABLES Final Result Performing Organization Address [facility] Co de Phone Number [facility] [address] [place] [phone] documented in this encounter Visit Diagnoses Not on filedocumented in this encounter Care Teams Hand Striper Relationship Specialty Start Date End Date Irwin Gonsalez DO [address] [place] [place] [address] PCP - General 01/14/21 documented as of this encounter
[2024-04-18] MEDS: Acetaminophen 325 MG TAB 650 MG PO (08:58)
[2024-04-18] MEDS: Loratidine 10 MG TAB PO (08:59)
[2024-04-18 09:07] VITALS: BP 136/95; PULSE 78; TEMP 36.9; O2SAT 98
[2024-04-18] MEDS: inFLIXimab 600 MG in Normal Saline 250 ML 125 MG IVPB (09:10)
[2024-04-18] MEDS: Normal Saline Flush 10 ML SYR IVP (09:11)
[2024-04-18 09:35] VITALS: BP 135/94; PULSE 76; TEMP 36.6; O2SAT 97
[2024-04-18 09:50] VITALS: BP 143/96; PULSE 76; TEMP 36.6; O2SAT 96
[2024-04-18 10:05] VITALS: BP 141/95; PULSE 78; TEMP 36.3; O2SAT 99
[2024-04-18 10:35] VITALS: BP 136/98; PULSE 61; TEMP 36.9; O2SAT 97
== END 2024-05-13 23:59 | disposition home or self-care (01) ==
LOC: INF 02:31
PROVIDERS: PCP Nurse Practitioner Family; Visit Provider Family Medicine
DX: K50.90 Crohn's disease, unspecified, without complications (principal)
CPT/HCPCS: 96365; 96366; J1745

== ENCOUNTER 2024-05-16 01:50 | Outpatient (RCR) | payer BC, SELFPAY ==
[2024-05-16 07:17] VITALS: BP 154/98; PULSE 92; RESP 18; TEMP 36.8; O2SAT 96
[2024-05-16 07:44] LABS: Abs Immature Grans 0.03 10^3/uL (0.0-0.06); Absolute Basophil Count 0.02 10^3/uL (0.0-0.2); Absolute Eosinophil Count 0.11 10^3/uL (0.0-0.7); Absolute Lymphocyte Count 1.89 10^3/uL (1.2-3.4); Absolute Monocyte Count 0.35 10^3/uL (0.1-0.8); Absolute Neutrophil Count 3.17 10^3/uL (1.2-6.7); Basophils % 0.4 %; HCT 41.7 % (40.0-50.0); HGB 14.4 g/dL (13.5-17.5); Immature Grans % 0.5 %; Lymphocytes % 33.9 %; MCH 29.2 pg (27.0-33.0); MCHC 34.5 % (32.0-36.0); MCV 85 fL (80-95); MPV 9.5 fL (8.0-11.0); Monocytes % 6.3 %; Neutrophils % 56.9 %; Platelet Count 257 10^3/uL (130-400); RBC 4.93 10^6/uL (4.36-5.78); RDW 12.2 % (11.8-14.1); WBC 5.57 10^3/uL (4.4-10.8)
[2024-05-16 07:59] LABS: ALT 37 U/L (16-63); AST 22 U/L (15-37); Albumin 3.5 g/dL (3.4-5.0); Alkaline Phosphatase 76 U/L (46-116); Anion Gap 9.4 mmol/L (3-11); BUN 20 mg/dL (7-18); Bilirubin, Total 0.64 mg/dL (0.2-1.0); CO2 28.6 mmol/L (21.0-32.0); CREATININE 1.1 mg/dL (0.70-1.30); Calcium 8.9 mg/dL (8.5-10.1); Chloride 106 mmol/L (98-107); Estimated GFR 82.29 (mL/min/1.73m2); Glucose 161 mg/dL (74-106); Potassium 3.7 mmol/L (3.5-5.1); Sodium 144 mmol/L (136-145); Total Protein 7.2 g/dL (6.4-8.2)
[2024-05-16 08:04] LABS: C-Reactive Protein < 0.50 mg/dL (<or=0.5)
[2024-05-16] MEDS: Normal Saline Flush 5 ML SYR IVP (08:06)
[2024-05-16] MEDS: inFLIXimab 600 MG in Normal Saline 250 ML 125 MG IVPB (08:06)
[2024-05-16 08:25] VITALS: BP 151/94; PULSE 92; RESP 17; TEMP 37.1; O2SAT 95
[2024-05-16 08:47] VITALS: BP 155/92; PULSE 93; RESP 17; TEMP 37; O2SAT 95
[2024-05-16 09:28] VITALS: BP 141/96; PULSE 84; RESP 18; TEMP 36.9; O2SAT 97
[2024-05-16 09:46] VITALS: BP 147/94; PULSE 87; RESP 19; TEMP 36.4; O2SAT 97
[2024-05-17 09:10] LABS: Hepatitis B Surface Ag Negative (Negative)
[2024-05-21 00:23] LABS: Infliximab 32 mcg/mL
== END 2024-06-13 23:59 | disposition home or self-care (01) ==
LOC: INF 01:50
PROVIDERS: Student in an Organized Health Care Education/Training Program; PCP Nurse Practitioner Family; Visit Provider Family Medicine
DX: K50.90 Crohn's disease, unspecified, without complications
CPT/HCPCS: 80053; 82397; 87340; 96365; 96366; 85025; 86140; J1745

== ENCOUNTER 2024-07-11 00:25 | Outpatient (RCR) | payer BC, SELFPAY ==
[2024-07-11] MEDS: Acetaminophen 325 MG TAB 650 MG PO (08:33)
[2024-07-11] MEDS: Normal Saline Flush 5 ML SYR IVP (08:33)
[2024-07-11] MEDS: Loratidine 10 MG TAB PO (08:33)
[2024-07-11] MEDS: inFLIXimab 600 MG in Normal Saline 250 ML 125 MG IVPB (09:03)
[2024-07-11 09:24] VITALS: BP 134/81; PULSE 83; RESP 7; TEMP 36.5; O2SAT 98
[2024-07-11 09:40] VITALS: BP 143/91; PULSE 83; RESP 18; TEMP 36.8; O2SAT 98
[2024-07-11 09:55] VITALS: BP 135/91; PULSE 89; RESP 18; TEMP 36.6; O2SAT 97
[2024-07-11 10:27] VITALS: BP 144/92; PULSE 87; RESP 18; TEMP 36.6; O2SAT 98
[2024-07-11 10:58] VITALS: BP 149/100; PULSE 87; RESP 20; TEMP 36.6; O2SAT 100
== END 2024-07-13 23:59 | disposition home or self-care (01) ==
LOC: INF 00:25
PROVIDERS: PCP Nurse Practitioner Family; Visit Provider Family Medicine
DX: K50.90 Crohn's disease, unspecified, without complications (principal)
CPT/HCPCS: 96365; 96366; J1745

== ENCOUNTER 2024-09-05 02:53 | Outpatient (RCR) | payer BC, SELFPAY ==
[2024-09-05] VITALS (7 sets, daily range): BP systolic 116–143; BP diastolic 78–92; PULSE 85–92; RESP 17–22; TEMP 36.4–36.6; O2SAT 96–98
[2024-09-05] MEDS: Acetaminophen 325 MG TAB 650 MG PO (11:57)
[2024-09-05] MEDS: Loratidine 10 MG TAB PO (11:58)
[2024-09-05] MEDS: inFLIXimab 600 MG in Normal Saline 250 ML 125 MG IVPB (12:25)
[2024-09-05] MEDS: Normal Saline Flush 10 ML SYR IVP (12:25)
[2024-09-05 12:43] LABS: HCT 41.2 % (40.0-50.0); HGB 14.5 g/dL (13.5-17.5); MCH 29.6 pg (27.0-33.0); MCHC 35.2 % (32.0-36.0); MCV 84 fL (80-95); MPV 9.3 fL (8.0-11.0); Platelet Count 268 10^3/uL (130-400); RDW 11.9 % (11.8-14.1); RDW-SD 36.1 fL
[2024-09-05 12:59] LABS: C-Reactive Protein < 0.50 mg/dL (<or=0.5)
== END 2024-09-12 23:59 | disposition home or self-care (01) ==
LOC: INF 02:53
PROVIDERS: PCP Nurse Practitioner Family; Visit Provider Family Medicine
DX: K50.919 Crohn's disease, unspecified, with unspecified complications (principal)
CPT/HCPCS: 85027; 96365; 96366; 86140; J1745

== ENCOUNTER 2024-10-31 03:44 | Outpatient (RCR) | payer BC, SELFPAY ==
[2024-10-31] MEDS: Normal Saline Flush 10 ML SYR IVP (07:59)
[2024-10-31] MEDS: Acetaminophen 325 MG TAB 650 MG PO (07:59)
[2024-10-31 08:00] VITALS: BP 147/90; PULSE 88; RESP 18; TEMP 36.6; O2SAT 97
[2024-10-31] MEDS: Loratidine 10 MG TAB PO (08:00)
[2024-10-31] MEDS: inFLIXimab 600 MG in Normal Saline 250 ML 125 MG IVPB (08:14)
[2024-10-31 08:35] VITALS: BP 146/87; PULSE 85; RESP 20; TEMP 36.5; O2SAT 97
[2024-10-31 08:50] VITALS: BP 146/87; PULSE 87; RESP 18; TEMP 36.6; O2SAT 97
[2024-10-31 09:05] VITALS: BP 155/90; PULSE 85; RESP 19; TEMP 36.3; O2SAT 94
[2024-10-31 09:20] VITALS: BP 153/92; PULSE 93; RESP 20; TEMP 36.4; O2SAT 94
[2024-10-31 09:50] VITALS: BP 157/92; PULSE 88; RESP 18; TEMP 36.3; O2SAT 98
== END 2024-11-13 23:59 | disposition home or self-care (01) ==
LOC: INF 03:44
PROVIDERS: PCP Nurse Practitioner Family; Visit Provider Family Medicine
DX: K50.919 Crohn's disease, unspecified, with unspecified complications (principal)
CPT/HCPCS: 96365; 96366; J1745

== ENCOUNTER 2024-11-17 15:21 | Outpatient (CLI) | payer BC, SELFPAY ==
[2024-11-17 22:14] LABS: PSA, Screening 5.0 ng/mL (<=2.5)
== END 2024-11-17 15:22 | disposition home or self-care (01) ==
LOC: LBO 15:22
PROVIDERS: PCP Nurse Practitioner Family; Visit Provider Nurse Practitioner Gerontology
DX: R39.9 Unspecified symptoms and signs involving the genitourinary system (principal)
CPT/HCPCS: 36415; 84153

== ENCOUNTER 2024-12-20 01:30 | Outpatient (CLI) | payer BC, SELFPAY ==
--- NOTE | 2024-12-20 07:18 | DI.CT_ITS ---
Exam(s) CT ABDOMEN PELVIS WO/W EXAM: CT ABDOMEN PELVIS WO/W CLINICAL HISTORY: hematuria and flank pain, HX OF KIDNEY STONES, NEG PEGGY RECENTLY R31.9. TECHNIQUE: Imaging Protocol: Axial computed tomography images with coronal and sagittal reformatted images were created and reviewed CONTRAST MATERIAL: Intravenous: Omnipaque-[address] urogram technique sequences COMPARISON: CT ABD PELVIS WO CONTRAST from 12/29/2016 FINDINGS: VISUALIZED LUNG BASES: No nodules nor pleural effusions evident. ABDOMEN: There is no ascites. LIVER: Liver is again noted be hypodense implying steatosis. Liver size is upper normal. There are no hepatic lesions evident. No dilated intrahepatic ducts. GALLBLADDER/BILIARY: Cholelithiasis. There is a 6 mm calcified gallstone now evident in the gallbladder neck region. Another is significantly smaller calcified gallstone measures approximately 2 mm size. The CBD is not dilated and there are no radiopaque calculi seen in the CBD. PANCREAS: No evidence of pancreatic mass nor dilatation of the pancreatic duct. SPLEEN: Spleen is not enlarged. No obvious intrasplenic lesions. Splenic and portal veins are patent. ADRENALS: There are no significant adrenal masses. KIDNEYS:There is an 8 x 5 mm calculus now evident in of the lower left renal pelvis just above the UPJ level. This is nonobstructive and there is no hydronephrosis above this level. However, there is some mild streaking around the ipsilateral renal pelvis. There is also 2 additional nonobstructive calculi in the left kidney both measuring 2-3 mm; 1 in the upper and the other in the midpole level. There is a tiny nonobstructive calculus at the midpole level of the opposite-right kidney. Mid and lower ureters are not dilated. There are no radiopaque calculi seen in the collapsed urinary bladder.. No solid renal masses. There is a solitary nondilated ureter on each side. URINARY BLADDER: Collapsed but indented by large lobulated prostate gland. Prostate gland measures 5.5 cm wide by 5.4 cm AP.. Seminal vesicles appear unremarkable. ABDOMINAL AORTA: Abdominal aorta is not enlarged. LYMPH NODES:There is no retroperitoneal nor paraaortic adenopathy. ABDOMINAL WALL: No evidence of significant anterior abdominal wall nor inguinal hernia. GI: There is no evidence of bowel obstruction, free air, nor abscess. Evidence of previous surgery at the anal level which is probably prior hemorrhage surgery. Also evidence of prior surgery in the right-side of the abdomen probable seek ectomy. No obstruction at the anastomosis. The diameter of small bowel loops is upper normal. PELVIS: GI: Appendix is surgically absent.No evidence of sigmoid diverticulitis. LYMPH NODES: There is no intrapelvic nor inguinal adenopathy. REPRODUCTIVE: Enlarged and lobulated prostate gland. Urinary bladder is not distended URINARY BLADDER: Not distended. Indeed, the urinary bladder is collapsed. OSSEOUS: No fractures and no significant osseous lesions. Partial ankylosis of the sacroiliac joints IMPRESSION: 1. In addition to small punctate nonobstructive calculi in both kidneys there is a larger 8 x 5 mm calculus just above the left ureteropelvic junction. There is mild streaking around this level but no hydronephrosis and the injected contrast has progressed into the nondilated ureter beyond this 8 x 5 mm calculus and there is no significant dilatation of the ipsilateral renal infundibuli and calyces. 2. There are no radiopaque calculi seen in the collapsed urinary bladder. 3. Prostate gland is enlarged and lobulated. Requires appropriate testing. 4. There is evidence of previous bowel surgery as described above. There is no bowel obstruction, free air, nor abscess. 5. Gallstones now evident. However, there is no evidence of acute cholecystitis nor dilatation of the biliary tree. 6.. There is partial ankylosis of the sacroiliac joints. These findings may indicate inflammatory bowel disease given the SI joint findings and what appears to be distal small bowel resection and cecal resection. RADIATION DOSE DELIVERED: 2,868.45mGy.cm Total DLP DATA REPOSITORY: All CT scans at this facility are submitted to the National Radiology Data Registry (NRDR) Dose Index Registry (DIR) with the [employer] (ACR). RADIATION OPTIMIZATION: All CT scans at this facility use at least one of these dose optimization techniques: automated exposure control; mA and/or kV adjustment per patient size (includes targeted exams where dose is matched to clinical indication); or iterative reconstruction.
[2024-12-20 14:09] LABS: Estimated GFR 108.49 (mL/min/1.73m2)
[2024-12-20] MEDS: Omnipaque 350 MG/ML 100 ML BTL IJ (14:29)
[2024-12-20] MEDS: Normal Saline Flush 10 ML SYR IVP (14:29)
[2024-12-20] MEDS: Normal Saline - Diluent 50 ML VIAL IJ ×2 (14:29→14:30)
== END 2024-12-20 01:50 ==
LOC: DI 01:30
PROVIDERS: PCP Nurse Practitioner Family; Visit Provider Nurse Practitioner Gerontology
DX: R31.9 Hematuria, unspecified (principal); N40.1 Benign prostatic hyperplasia with lower urinary tract symptoms; K80.20 Calculus of gallbladder without cholecystitis without obstruction
CPT/HCPCS: 74178; 82565; J3490

== ENCOUNTER 2024-12-21 03:30 | Outpatient (RCR) | payer BC, SELFPAY ==
[2024-12-21] VITALS (7 sets, daily range): BP systolic 115–131; BP diastolic 79–91; PULSE 81–89; RESP 18–19; TEMP 36.3–36.9; O2SAT 96–98
[2024-12-21] MEDS: Acetaminophen 325 MG TAB 650 MG PO (07:38)
[2024-12-21] MEDS: Normal Saline Flush 10 ML SYR IVP (07:39)
[2024-12-21] MEDS: Loratidine 10 MG TAB PO (07:39)
[2024-12-21] MEDS: inFLIXimab 600 MG in Normal Saline 250 ML 125 MG IVPB (07:49)
[2024-12-21 08:20] LABS: HCT 40.5 % (40.0-50.0); HGB 14.0 g/dL (13.5-17.5); MCH 29.1 pg (27.0-33.0); MCHC 34.6 % (32.0-36.0); MCV 84 fL (80-95); MPV 9.8 fL (8.0-11.0); Platelet Count 248 10^3/uL (130-400); RBC 4.81 10^6/uL (4.36-5.78); RDW 12.2 % (11.8-14.1); RDW-SD 37.2 fL; WBC 5.03 10^3/uL (4.4-10.8)
[2024-12-21 08:35] LABS: ALT 49 U/L (16-63); AST 26 U/L (15-37); Albumin 3.5 g/dL (3.4-5.0); Alkaline Phosphatase 73 U/L (46-116); Bilirubin, Direct 0.2 mg/dL (0.0-0.2); Bilirubin, Total 1.0 mg/dL (0.2-1.0); Total Protein 7.0 g/dL (6.4-8.2)
[2024-12-21 08:38] LABS: C-Reactive Protein < 0.50 mg/dL (<or=0.5)
== END 2025-01-13 23:59 | disposition home or self-care (01) ==
LOC: INF 03:30
PROVIDERS: Internal Medicine Gastroenterology; PCP Nurse Practitioner Family; Visit Provider Family Medicine
DX: K50.90 Crohn's disease, unspecified, without complications (principal)
CPT/HCPCS: 80076; 85027; 96365; 96366; 86140; J1745

== ENCOUNTER 2025-02-20 06:03 | Day surgery (SDC) | payer BC, SELFPAY ==
[2025-02-20] VITALS (28 sets, daily range): BP systolic 103–140; BP diastolic 74–104; PULSE 62–88; RESP 11–18; TEMP 36.1–36.5; O2SAT 92–99; BMI 33.7
[2025-02-20] MEDS: Lactated Ringers 1,000 ML 80 ML IV (06:39)
--- NOTE | 2025-02-20 07:06 | W.PM.HP.N ---
Date of service: 02/20/25 Time of Service: 07:06 Assessment and Plan Assessment and plan (1) Left ureteral stone: Status: Acute Assessment and plan: We will move ahead with cystoscopy, left retrograde pyelogram, left flexible ureteroscopy with holmium laser lithotripsy of his large left kidney stone. History of Present Illness History of Present Illness Chief Complaint: Left ureteral stone Narrative: This is a 50-year-old gentleman who has a history of an elevated PSA, lower urinary tract symptoms, scrotal discomfort and kidney stones. He had microscopic hematuria and 1 is evaluated with a CT urogram. No solid renal masses were found, but there was a large stone in the left UPJ region. He presents now for ureteroscopy and holmium laser lithotripsy of his stone. He is not seeing any gross hematuria. He does have some back discomfort but no significant renal colic symptoms. He has no dysuria, fevers or chills. Review of Systems Narrative: No fevers or chills No vision change or dysphasia No diabetes or thyroid dysfunction No shortness of breath, cough or hemoptysis No chest pain or palpitations GERD. Crohns disease. No hepatitis, ulcers, jaundice No seizures, strokes or peripheral neuropathy No bleeding disorders or anemia No gout PFSH All Active Problems (Updated 02/20/25 @ 07:26 by Triston Hansen MD) Left ureteral stone (Acute) Elevated PSA (Acute) BPH w urinary obs/LUTS (Acute) Left testicular pain (Acute) Internal derangement of left knee (Acute) Anxiety (Chronic) Hypertension (Chronic) Kidney stone on right side (Chronic) 2017. stenting [facility] Crohn's disease (Chronic) Gastroesophageal reflux disease with esophagitis (Chronic) per EGD; esophageal stricture Hemorrhoids (Chronic) EXTERNAL Surgical History Colonoscopy - MAC 05/01/11 [facility] [place]13 [facility] [place]throplasty of knee (~1999) LEFT Appendectomy Social History Smoking/Tobacco Use Status: Never Second Hand Exposure: Yes Smoking risk assessment performed?: Yes Alcohol Intake: current Alcohol Intake frequency: a few times a month Drug use: Never Substance use type: does not use Adopted: No Caregiver/Support person: No Foster care: No Household members: spouse and children Housing: house Number of Children: 2 number of grandchildren: 0 Communication Needs: None Do you need help understanding health information?: Never Pets and animals: Yes Pets and animals: dog(s) Sexually active: Yes Do you think of yourself as: straight/heterosexual Current gender identity: male What is your relationship status?: How often do you talk on the phone with friends or family?: once per week How often do you get together with friends or relatives?: once per week How often do you attend buddhist or jainism services?: decline to answer Do you belong to any clubs or organized social groups?: no Panel score (0-1 are the most socially isolated patients): 1 What type of physical activity do you participate in: walking and other Details: Active life style Frequency: 1-2 times per week Sue/Temple: Christianity Special sue needs: No Agree to transfusion: Yes Seatbelt use: always Helmet use: Yes Helmet use: sometimes Drive intox or ride w/intox feeder driver: No Working smoke detector in home: Yes Carbon monox detector in home: Yes Firearms in home: Yes Do you feel safe at home: Yes Do you feel safe in your relationship?: Yes Victim of physical abuse: No Victim of emotional abuse: No Victim of sexual abuse: No Would you like helpful sources: No Meds Allergies and Home Medications Allergies Allergy/AdvReac Type Severity Reaction Status Date / Time No Known Allergies Allergy Verified 02/20/25 06:15 Home Medications ?Medication ?Instructions ?Recorded ?Confirmed ?Type acetaminophen 500 mg tablet 2 tab PO Q4H PRN 07/05/12 02/20/25 History (Tylenol Extra Strength) multivitamin (Daily Multi-Vitamin 1 tab PO DAILY 07/05/12 02/20/25 History tablet) amlodipine 5 mg tablet 5 mg PO DAILY #90 tabs 05/23/24 02/20/25 Rx losartan 100 mg tablet 100 mg PO DAILY #90 tabs 06/20/24 02/20/25 Rx alfuzosin 10 mg tablet,extended 10 mg PO DAILY #90 tab-caps 07/20/24 02/20/25 Rx release 24 hr (Uroxatral) esomeprazole magnesium 40 mg 40 mg PO DAILY #90 caps 08/12/24 02/20/25 Rx capsule,delayed release (Nexium) infliximab 100 mg intravenous 100 mg IV Q8W 10/07/24 02/17/25 History solution (Remicade) sertraline 25 mg tablet 25 mg PO DAILY #90 tabs 12/30/24 02/20/25 Rx cholecalciferol (vitamin D3) 25 25 mcg PO DAILY 02/20/25 02/20/25 History mcg (1,000 unit) capsule Exam Const General: cooperative Neck Neck: supple Resp Effort & Inspection: normal respiratory effort Auscultation: clear to auscultation bilaterally Cardio Rate: regular rate Rhythm: regular rhythm GI Palpation: soft and no masses Neuro General: patient alert, patient awake and patient oriented x3 Results Imaging Imaging Studies: I reviewed his CT scan on the PACS system. The scan was done back in December and showed a large stone at the left UPJ Last Vital Signs Temp 36.5 C 02/20/25 06:19 Pulse 88 02/20/25 06:19 Resp 14 02/20/25 06:19 BP 140/104 H 02/20/25 06:19 Pulse Ox 97 02/20/25 06:19 VTE Prohylaxis Risk Level: Low Risk Contraindications: None Prophylaxis: Mechanical Time Spent Time spent with Patient: <40 minutes Time was spent: other
--- NOTE | 2025-02-20 07:09 | W.ANESPRE ---
General Info Date of Service Date Performed: 02/20/25 Height: 6 ft Weight: 112.7 kg Body Mass Index (BMI): 33.7 Surgical Procedure: Operation Date: 02/20/25 07:40 Proposed Procedure Side Surgeon p Cystoscopy/Laser/Retrograde/Ureteroscopy/ Stone Manipulation/ ?Stent Left Triston Hansen MD Meds Allergies and Home Medications Allergies Allergy/AdvReac Type Severity Reaction Status Date / Time No Known Allergies Allergy Verified 02/20/25 06:15 Home Medication ?Medication ?Instructions ?Recorded acetaminophen 500 mg tablet 2 tab PO Q4H PRN 07/05/12 (Tylenol Extra Strength) multivitamin (Daily Multi-Vitamin 1 tab PO DAILY 07/05/12 tablet) amlodipine 5 mg tablet 5 mg PO DAILY #90 tabs 05/23/24 losartan 100 mg tablet 100 mg PO DAILY #90 tabs 06/20/24 alfuzosin 10 mg tablet,extended 10 mg PO DAILY #90 tab-caps 07/20/24 release 24 hr (Uroxatral) esomeprazole magnesium 40 mg 40 mg PO DAILY #90 caps 08/12/24 capsule,delayed release (Nexium) infliximab 100 mg intravenous 100 mg IV Q8W 10/07/24 solution (Remicade) sertraline 25 mg tablet 25 mg PO DAILY #90 tabs 12/30/24 cholecalciferol (vitamin D3) 25 25 mcg PO DAILY 02/20/25 mcg (1,000 unit) capsule Current Visit Medications: Current Medications Generic Name Dose Route Start Last Admin Trade Name Freq PRN Reason Stop Dose Admin Ringer's Solution 1,000 mls @ 80 mls/hr 02/20/25 06:00 02/20/25 06:39 IV 03/19/25 23:59 80 mls/hr INFUSION PENG Administration Cefazolin Sodium/Dextrose 2 gm in 50 mls @ 100 mls/hr 02/20/25 06:00 Ancef Duplex IVPB 03/19/25 23:59 PREOP PENG Sodium Chloride 0 ml 02/20/25 06:00 Normal Saline Flush 10 Ml Syr IV 03/19/25 23:59 PRN PRN Sodium Chloride 0 ml 02/20/25 06:00 Normal Saline 10 Ml Vial IJ 03/19/25 23:59 DIRECTED PRN Sterile Water 0 ml 02/20/25 06:00 Water,Injection,Sterile 10 Ml Vial IJ 03/19/25 23:59 DIRECTED PRN PFSH Active Problems Active Problems: Problem Status Onset Code Elevated PSA Acute R97.20 BPH w urinary obs/LUTS Acute N40.1, N13.8 Left testicular pain Acute N50.812 Internal derangement of left knee Acute M23.92 Anxiety Chronic F41.9 Hypertension Chronic I10 Kidney stone on right side Chronic N20.0 Crohn's disease Chronic K50.90 Gastroesophageal reflux disease with esophagitis Chronic K21.0 Hemorrhoids Chronic K64.9 Surgical History Surgical History Colonoscopy - [facility] 05/01/11 [facility] [place]13 [facility] [place]throplasty of knee (~1999) LEFT Appendectomy Tobacco Smoking/Tobacco Use Status: Never Passive smoking exposure: No Second hand exposure: Yes Alcohol Alcohol Intake: current Alcohol intake frequency: a few times a month Substance Use Substance use: Never Substance use type: does not use Vital Signs and Lab Results Vital Signs Most Recent Vital Signs in EMR: Most Recent Vital Signs Temp Pulse Resp BP Pulse Ox 36.5 C 88 14 140/104 H 97 02/20/25 06:19 02/20/25 06:19 02/20/25 06:19 02/20/25 06:19 02/20/25 06:19 Anesthesia Assessment and Plan Anesthesia History Personal History: No History of Anesthesia Complications Family History: No Family History of Anesthesia Complications Exercise Tolerance Exercise Tolerance: Metabolic Equivalents>4 Pertinent Negatives Pertinent Negatives: No Symptoms of GERD Cardiac & Pulmonary Exam Cardiac Exam: Normal S1/S2 Heart Sounds Pulmonary Exam: Clear Bilateral Breath Sounds Implantable Cardiac Device Does patient have a Pacemaker or an ICD?: No Airway Exam Known Difficult Airway: No Mallampati Class: 1 Mouth Opening: Normal (> 3cm) Thyromental Distance: Greater than 3 cm Neck Range of Motion: Full ROM Neck Circumference: Normal Teeth Condition: Normal Dentition ASA Classification ASA Score: ASA 2 Emergency Case?: No NPO Status NPO Status: NPO Clears >2 hours, Solids >8 hours Anesthesia Plan Resuscitation Status: Full Code Anesthesia Technique: General Anesthesia Airway Planned: LMA Monitors Used: Standard Monitors
[2025-02-20] MEDS: ceFAZolin 2 GM/50 ML BAG IVPB (07:40)
[2025-02-20] MEDS: Lidocaine 2% Jelly 11 ML SYR (08:11)
[2025-02-20] MEDS: Omnipaque 300 MG/ML 50 ML BTL (08:57)
--- NOTE | 2025-02-20 08:58 | DI.RAD_ITS ---
Exam(s) XR RETROGRADE IN OR EXAM: XR RETROGRADE IN OR CLINICAL HISTORY: BPH with LUTS and kidney stones. TECHNIQUE: Fluoroscopy was provided for the referring physician for guidance with performing retrograde procedure. COMPARISON: No exams were available for comparison FINDINGS: Please see procedure note for details. Fluoro time: 42.1 seconds RADIATION DOSE DELIVERED: Shlomor=14.5 mGy
--- NOTE | 2025-02-20 09:11 | PDOC.DSDIS_ITS ---
Date of service: 02/20/25 Discharge Plan Disposition Patient Disposition: Home Condition: Stable Discharge Details Attending Provider: Triston Hansen Primary Care Provider: Richard Tidwell Recommendations for Follow Up Recommended tests to be ordered by follow up provider: renal ultrasound in 8 weeks Home Meds and New Rx's Prescriptions: New tramadol 50 mg tablet 50 mg PO Q6H PRN (Reason: pain) Qty: 20 0RF Rx Instructions: may take with tylenol/NSAIDs No Action infliximab [Remicade] 100 mg recon soln 100 mg IV Q8W multivitamin [Daily Multi-Vitamin] 1 EACH tablet 1 tab PO DAILY acetaminophen [Tylenol Extra Strength] 500 MG tablet 2 tab PO Q4H PRN amlodipine 5 mg tablet 5 mg PO DAILY Qty: 90 3RF losartan 100 mg tablet 100 mg PO DAILY Qty: 90 11RF alfuzosin [Uroxatral] 10 mg tablet extended release 24 hr 10 mg PO DAILY Qty: 90 3RF esomeprazole magnesium [Nexium] 40 mg capsule,delayed release(DR/EC) 40 mg PO DAILY Qty: 90 3RF sertraline 25 mg tablet 25 mg PO DAILY Qty: 90 3RF cholecalciferol (vitamin D3) 25 mcg (1,000 unit) capsule 25 mcg PO DAILY Discharge Instructions Additional Instructions: There is no need to strain your urine. We have a lots of stone pieces that we can analyze already. I did place a stent but the stent will only need to stay in for 3 to 5 days. You will have an appointment later this week to come into the office and the stent will be removed. As long as the stent is in place, you will likely see blood in the urine and have discomfort when you urinate. I have sent in a prescription for tramadol that you can use along with Tylenol and anti-inflammatory medications like ibuprofen for the discomfort. You will have an appointment in about 8 to 10 weeks and we will get a renal ultrasound to make sure your kidney have healed from today's procedure. Stand Alone Forms: Anesthesia Discharge Inst., [facility] ([facility]), Portal Information Referrals: Triston Hansen MD [ [facility] STAFF PHYSICIAN, Urology] Activity:: Activity as Tolerated Shower/Bathe:: 24 hours Diet:: As Tolerated Discharge Orders Discharge Orders: Discharge Order (Routine); Ordered 02/20/25 Ordered By: Triston Hansen DS: Diagnosis Discharge Diagnosis (1) Left ureteral stone: Status: Acute
[2025-02-20] MEDS: ACETAMINOPHEN 1,000 MG/100 ML BAG 400 MG IVPB (09:17)
[2025-02-20] MEDS: Ketorolac 15 MG/ML VIAL IVP (09:18)
--- NOTE | 2025-02-20 09:20 | ROE_ITS ---
Operative Note Operative Note PRE-OP DIAGNOSIS: Left ureteral stone POST-OP DIAGNOSIS: same PROCEDURE: cystoscopy, left retrograde pyelogram, left ureteroscopy with holmium laser lithotripsy, extraction of stone fragments, place left ureteral stent SURGEON: Triston Hansen ANESTHESIA TYPE: Local By Surgeon and General LMA/ETT Refer to Anesthesia Record ESTIMATED BLOOD LOSS: 5 PATHOLOGY: other (stone fragments for chemical analysis) COMPLICATIONS: None Patient was transported to: PACU Patient's condition: stable Implants: 4.8 Taiwanese by 22 to 30 cm left ureteral stent Indications: This is a 50-year-old gentleman who has a past history of kidney stones. He has had intermittent left-sided pain and was identified as having a large stone at the left ureteropelvic junction. He presents for ureteroscopy and holmium laser lithotripsy of his stone Findings: large stone at left UPJ Procedure Description: The patient was given IV antibiotics and brought to the operating room on 02/20/2025. After successful induction of general anesthesia, he was placed in the dorsal lithotomy position. His genitalia was prepped and draped. 2% Xylocaine jelly was instilled into the urethra. A 22 Taiwanese rigid cystoscope was passed through the urethra into the bladder. The urethra and bladder were inspected with a 30 degree lens. The pendulous, bulbar and membranous urethra appeared normal with no strictures. The prostatic urethra showed an elevated bladder neck with a mild intravesical portion of the prostate. There is also lateral lobe enlargement. The bladder neck was entered and the bladder mucosa was inspected. The left ureteral orifice was visualized and was cannulated with a 5 Taiwanese access catheter. A retrograde pyelogram was obtained by injecting Omnipaque through the access catheter under fluoroscopic guidance. We were able to outline a filling defect at the ureteropelvic junction. I then passed a guidewire through the lumen of the access catheter and removed the catheter and the cystoscope. A dual-lumen catheter was advanced over the wire and a second wire was positioned. We chose one of the wires as a working wire and the other is a safety wire. I passed the ureteral access sheath over the working wire leaving the safety wire in place. The flexible ureteroscope was passed through the lumen of the access sheath and the scope was advanced until the stone was visualized. The stone was then treated with a 272 ?m holmium laser fiber. We utilized dusting settings and the stone fragmented quite easily. Multiple stone fragments were then grasped and a ZeroTip stone basket and extracted. The stone fragments were sent to the laboratory for chemical analysis. At the completion of the procedure, I did not see any remaining large stone fragments. I then removed the ureteroscope and the access sheath. I passed a 4.8 Taiwanese variable length stent over the safety wire. I positioned the proximal end of the stent in the renal pelvis and the distal end of the stent in the bladder. We left the safety string in place and brought the string through the urethra. We anchored the string onto the dorsum of the penis using a Steri- Strip. The patient tolerated this procedure well with no complications. Date of Procedure: 02/20/25
[2025-02-20] MEDS: Phenazopyridine 200 MG TAB PO (10:01)
--- NOTE | 2025-02-20 10:04 | W.ANESPOSTOP ---
Postoperative Evaluation Date, Time and Location Date Performed: 02/20/25 Time Performed: 09:35 Patient Location: PACU Vital Signs Most Recent Imported Vital Signs: Most Recent Vital Signs Temp Pulse Resp BP Pulse Ox 36.4 C L 63 17 129/92 H 99 02/20/25 09:47 02/20/25 09:46 02/20/25 09:46 02/20/25 09:46 02/20/25 09:42 Pain Score Most Recent Pain Score: Most Recent Pain Score Pain Level 0 02/20/25 09:47 Assessment Mental Status: Awake (Alert & Oriented to Patient Baseline) Airway and Respiratory Function: Patent airway with normal (patient baseline) respiratory exam Cardiovascular Function: Hemodynamically Stable Hydration Status: Adequately Hydrated Nausea & Vomiting: No Nausea or Vomiting Pain: Pt. Denies Any Pain Peripheral Nerve Block: Patient did not receive a nerve block
== END 2025-02-20 11:27 | disposition home or self-care (01) ==
PROVIDERS: PCP Nurse Practitioner Family; Visit Provider Urology
PROC: (CPT 52356; principal; 2025-02-20 07:30)
DX: N20.1 Calculus of ureter (principal); N40.1 Benign prostatic hyperplasia with lower urinary tract symptoms; N13.8 Other obstructive and reflux uropathy; I10 Essential (primary) hypertension; K21.00 Gastro-esophageal reflux disease with esophagitis, without bleeding
CPT/HCPCS: 52356; 74420; 82365; J0131; J0690; J1100; J1885; J2250; J2371; J2405; J2704; Q9967

== ENCOUNTER 2025-02-23 01:42 | Outpatient (CLI) | payer BC, SELFPAY ==
[2025-02-23 08:33] LABS: Abs Immature Grans 0.01 10^3/uL (0.0-0.06); HCT 40.8 % (40.0-50.0); HGB 14.2 g/dL (13.5-17.5); Immature Grans % 0.2 %; MCH 29.2 pg (27.0-33.0); MCHC 34.8 % (32.0-36.0); MCV 84 fL (80-95); MPV 9.3 fL (8.0-11.0); Platelet Count 235 10^3/uL (130-400); RBC 4.86 10^6/uL (4.36-5.78); RDW 11.9 % (11.8-14.1); RDW-SD 35.9 fL; WBC 6.07 10^3/uL (4.4-10.8)
[2025-02-23 09:48] LABS: C-Reactive Protein < 0.50 mg/dL (<=0.50)
[2025-02-23 09:49] LABS: ALT 37 U/L (10-49); AST 27 U/L (<34); Albumin 4.1 g/dL (3.2-5.0); Alkaline Phosphatase 65 U/L (46-116); Anion Gap 10.3 mmol/L (3-11); BUN 15 mg/dL (9-23); Bilirubin, Total 0.9 mg/dL (0.2-1.2); CO2 27.7 mmol/L (20.0-31.0); Calcium 9.4 mg/dL (8.3-10.6); Chloride 106 mmol/L (98-107); Glucose 142 mg/dL (74-106); Potassium 3.7 mmol/L (3.5-5.1); Sodium 144 mmol/L (136-145); Total Protein 7.0 g/dL (5.7-8.2)
[2025-02-23 09:52] LABS: Cholesterol 173 mg/dL (<200); HDL Cholesterol 50 mg/dL (>40)
[2025-02-23 10:22] LABS: Hemoglobin A1C 5.5 % (<5.7)
[2025-03-02 16:15] LABS: Infliximab 3.2 mcg/mL
== END 2025-02-23 01:43 | disposition home or self-care (01) ==
PROVIDERS: Internal Medicine Gastroenterology; PCP Nurse Practitioner Family; Visit Provider Nurse Practitioner Adult Health
DX: Z13.220 Encounter for screening for lipoid disorders (principal); Z13.1 Encounter for screening for diabetes mellitus; K50.018 Crohn's disease of small intestine with other complication
CPT/HCPCS: 36415; 80053; 80061; 82397; 83036; 85025; 86140

== ENCOUNTER 2025-03-06 01:15 | Outpatient (RCR) | payer BC, SELFPAY ==
[2025-03-06 07:49] VITALS: BP 146/84; PULSE 95; RESP 18; TEMP 36.4; O2SAT 95
[2025-03-06] MEDS: Normal Saline Flush 10 ML SYR IVP (07:56)
[2025-03-06] MEDS: Loratidine 10 MG TAB PO (07:56)
[2025-03-06] MEDS: Acetaminophen 325 MG TAB 650 MG PO (07:56)
[2025-03-06 08:00] LABS: HCT 38.5 % (40.0-50.0); HGB 13.4 g/dL (13.5-17.5); MCH 28.8 pg (27.0-33.0); MCHC 34.8 % (32.0-36.0); MCV 83 fL (80-95); MPV 9.4 fL (8.0-11.0); Platelet Count 245 10^3/uL (130-400); RBC 4.65 10^6/uL (4.36-5.78); RDW 11.8 % (11.8-14.1); RDW-SD 35.8 fL; WBC 5.56 10^3/uL (4.4-10.8)
[2025-03-06 08:39] VITALS: BP 124/85; PULSE 86; RESP 19; TEMP 36.4; O2SAT 98
[2025-03-06 08:40] LABS: C-Reactive Protein < 0.50 mg/dL (<=0.50)
[2025-03-06 08:41] LABS: ALT 37 U/L (10-49); AST 27 U/L (<34); Albumin 4.0 g/dL (3.2-5.0); Alkaline Phosphatase 76 U/L (46-116); Bilirubin, Direct 0.2 mg/dL (<=0.3); Bilirubin, Total 0.9 mg/dL (0.2-1.2); Total Protein 7.1 g/dL (5.7-8.2)
[2025-03-06 09:25] VITALS: BP 138/91; PULSE 92; RESP 19; TEMP 36.6; O2SAT 97
== END 2025-03-15 23:59 | disposition home or self-care (01) ==
LOC: INF 01:15
PROVIDERS: Internal Medicine Gastroenterology; PCP Nurse Practitioner Family; Visit Provider Family Medicine
DX: K50.018 Crohn's disease of small intestine with other complication (principal)
CPT/HCPCS: 36415; 80076; 85027; 96365; 86140; J1745